=== PATIENT | female | born 1955 | race Caucasian/White ===

== ENCOUNTER 2020-02-02 09:00 | Outpatient (RCR) | payer OTHER, SELFPAY | END 2020-02-29 16:48 | disposition other institution (70) | LOC: HO.PT 09:00 | PROVIDERS: Visit Provider Nurse Practitioner Family | DX: M54.5 Low back pain (principal) | CPT/HCPCS: 97033; 97035; 97110; 97112; 97116; 97140; 97162 ==

== ENCOUNTER 2020-02-03 08:01 | Outpatient (REF) | payer OTHER, SELFPAY | END 2020-02-03 08:02 | disposition home or self-care (01) | LOC: HO.LAB 08:01 | PROVIDERS: Visit Provider Internal Medicine | DX: Z20.828 Contact with and (suspected) exposure to other viral communicable diseases (principal) | CPT/HCPCS: C9803; U0003 ==

== ENCOUNTER 2020-02-21 08:40 | Outpatient (REF) | payer OTHER, SELFPAY | END 2020-02-21 08:41 | disposition home or self-care (01) | LOC: HO.LAB 08:40 | PROVIDERS: Visit Provider Internal Medicine | DX: Z20.828 Contact with and (suspected) exposure to other viral communicable diseases (principal) | CPT/HCPCS: C9803; U0003 ==

== ENCOUNTER → 2020-03-21 13:15 | Outpatient (BNVA) | payer OTHER, SELFPAY | PROVIDERS: PCP Nurse Practitioner Family; Visit Provider Urology | DX: Z13.89 Encounter for screening for other disorder (principal) | CPT/HCPCS: Q3014 ==

== ENCOUNTER → 2020-04-03 11:06 | Outpatient (BNVA) | payer OTHER, SELFPAY | PROVIDERS: PCP Nurse Practitioner Family; Visit Provider Nurse Practitioner Family | DX: R07.9 Chest pain, unspecified (principal); I10 Essential (primary) hypertension; E78.5 Hyperlipidemia, unspecified; E11.8 Type 2 diabetes mellitus with unspecified complications; G89.29 Other chronic pain | CPT/HCPCS: 99212 ==

== ENCOUNTER 2020-04-10 11:08 | Outpatient (REF) | payer OTHER, SELFPAY ==
--- NOTE | 2020-04-10 | MM_ITS ---
EXAMINATION: MM SCREENING DIGITAL BREAST TOMOSYNTHESIS, BILATERAL CLINICAL INFORMATION: Screening. Asymptomatic. The lifetime risk of breast cancer based on the Tyrer-Cuzick Model is 4.1%. COMPARISON: Mammography: April 05, 2019 and studies dating back to January 20, 2014 TECHNIQUE: Digital breast tomosynthesis is performed in both the craniocaudal and mediolateral oblique views along with computer-aided detection (CAD). Synthesized 2D images are generated from the tomosynthesis. FINDINGS: The breasts are almost entirely fatty (ACR BI-RADS breast composition Category a). There are no significant masses, abnormal calcifications, or other abnormalities. MM/MM tomosynthesis screening BI IMPRESSION: There are no significant changes from prior study. ASSESSMENT: BI-RADS 1: Negative RECOMMENDATION: Routine annual mammography screening. This patient's information was entered into a reminder system with a target due date for their next mammogram.
== END 2020-04-10 11:09 | disposition home or self-care (01) ==
LOC: HO.MAMMO 11:08
PROVIDERS: Visit Provider Nurse Practitioner Family
DX: Z12.31 Encounter for screening mammogram for malignant neoplasm of breast (principal)
CPT/HCPCS: 77063; 77067

== ENCOUNTER 2020-05-28 08:27 | Outpatient (REF) | payer OTHER, SELFPAY | END 2020-05-28 08:28 | disposition home or self-care (01) | LOC: HO.LAB 08:27 | PROVIDERS: Visit Provider Internal Medicine | DX: Z20.822 Contact with and (suspected) exposure to COVID-19 (principal) | CPT/HCPCS: 36415; C9803; U0003; U0005 ==

== ENCOUNTER 2020-06-16 10:25 | Emergency (ER) | payer OTHER, SELFPAY ==
--- NOTE | ~2020-06-16 | US_ITS ---
EXAMINATION: US VENOUS ULTRASOUND WITH DOPPLER LOWER EXTREMITY, RIGHT CLINICAL INFORMATION: Pain. Recent flight from [place]. COMPARISON: None TECHNIQUE: Ultrasound of the deep veins is performed from the hip to the calf with compression sonography and color and pulse Doppler assessment. Spectral analysis with color-flow imaging is performed. FINDINGS: There is normal venous compression and respiratory variation and augmented flow. The visualized common femoral vein, superficial femoral vein, profunda femoral vein, popliteal vein, and the trifurcation region shows no evidence of deep venous thrombosis. There is no significant popliteal fossa cyst. If the patient's symptoms persist, followup ultrasound in 5 days 7 days might be of value to exclude proximal propagation from a non-visualized calf vein. US/US venous duplex LE RT IMPRESSION: No DVT demonstrated in the right lower extremity.
[2020-06-16 10:31] VITALS: BP 127/66; PULSE 84; RESP 18; TEMP 36.7; O2SAT 98; BMI 39.6
--- NOTE | 2020-06-16 10:44 | PC.NURSE ---
ambulatory with slight limping gait to emc, legs elevated
--- NOTE | 2020-06-16 11:32 | ED_ITS ---
HPI - Extremity Problem General Chief complaint: Extremity Problem Stated complaint: leg pain Time Seen by Provider: 06/16/20 11:32 Source: patient Mode of arrival: ambulatory History of Present Illness HPI Narrative: 64-year-old female with a past medical history of CKD, depression, HTN, JUSTIN, chronic pain, osteoarthritis, diabetes, vitamin-D deficiency, presenting to the ED complaining of acute on chronic right knee pain x1 week and right lower extremity swelling. Reports flew in from [place] yesterday, now with right calf pain. Also reports headache, requesting COVID-19 testing. Denies fever, chills, cough, chest pain, shortness of breath, numbness, tingling, weakness, history of blood clots. Denies taking any medication for headache or knee pain Related Data Home Medications Medication Instructions Recorded Confirmed albuterol sulfate 90 mcg/actuation 0 mcg INHALATION 03/21/20 03/21/20 aerosol inhaler atorvastatin 20 mg tablet 20 mg PO DAILY 03/21/20 03/21/20 clonazepam 0.5 mg tablet 0.5 mg PO DAILY PRN 03/21/20 03/21/20 darifenacin 15 mg tablet,extended 15 mg PO QAM 03/21/20 03/21/20 release 24 hr hydrocodone 5 mg-acetaminophen 325 1 tab PO Q8H PRN 03/21/20 03/21/20 mg tablet omeprazole 20 mg capsule,delayed 20 mg PO QAM 03/21/20 03/21/20 release tiotropium bromide 1.25 2 puff INHALATION DAILY 03/21/20 03/21/20 mcg/actuation mist for inhalation vitamin E (dl, acetate) 400 unit 400 unit PO QAM 03/21/20 03/21/20 capsule amlodipine 2.5 mg tablet 2.5 mg PO DAILY 04/03/20 04/03/20 fluticasone propionate 50 0 mcg INTRANASAL 04/03/20 04/03/20 mcg/actuation nasal spray,suspension lisinopril 10 1 tab PO DAILY 04/03/20 04/03/20 mg-hydrochlorothiazide 12.5 mg tablet metformin 500 mg tablet 500 mg PO ONCE tab 04/03/20 04/03/20 montelukast 10 mg tablet 10 mg PO DAILY 04/03/20 04/03/20 trazodone 150 mg tablet 150 mg PO BEDTIME tab 04/03/20 04/03/20 ursodiol 250 mg tablet 250 mg PO DAILY tab 04/03/20 04/03/20 Previous Rx's Medication Instructions Recorded calcium carbonate 600 mg (1,500 1 tab PO QAM #30 tab 06/12/20 mg)-vitamin D3 400 unit tablet acetaminophen [Tylenol Extra 500 mg PO Q6H PRN #20 tab 06/16/20 Strength] naproxen 500 mg PO BID PRN 10 Days #20 tab 06/16/20 Allergies Allergy/AdvReac Type Severity Reaction Status Date / Time No Known Allergies Allergy Verified 06/16/20 10:31 [No Known Allergies*] Review of Systems Review of Systems: Constitutional: No Fever, No Chills, No Fatigue, No Malaise ENT/Mouth: No Ear Pain, No Nasal Congestion, No visual changes Cardiovascular: No Chest Pain, No SOB, No Dyspnea on Exertion, No Edema Respiratory: No Cough, No Dyspnea Gastrointestinal: No Nausea, No Vomiting, No Abdominal pain Musculoskeletal: + joint pain, No Myalgias, + Joint Swelling Skin: No Skin Lesions, No rash Neuro: No Weakness, No Numbness, No Dizziness, +Headache PMFSH Past Medical History Attestation statement: The following information was validated with the patient. Medical History (Updated 06/16/20 @ 14:25 by PITO Krause) Bilateral primary osteoarthritis of knee Chest pain Chronic kidney disease Depression Essential hypertension History of renal calculi Lower urinary tract infection Lumbar facet arthropathy JUSTIN (obstructive sleep apnea) Other and unspecified hyperlipidemia Other chronic pain Other intervertebral disc displacement, lumbar region Primary osteoarthritis of left hand Primary osteoarthritis of left knee Primary osteoarthritis of right hand Primary osteoarthritis of right knee Renal stones Spondylosis of lumbar spine Type 2 diabetes mellitus with complication, without long-term current use of insulin Vitamin D deficiency Surgical History H/O abdominal hysterectomy H/O tubal ligation History of colonoscopy S/P repair of ventral hernia Family History Family History Father Diabetes mellitus HTN (hypertension) Mother No problems noted. Social History Social History Smoking Status: Never smoker Advance Directives: No Advance Directives Information Provided: No Physical Exam Vital Signs: Vital Signs: Last Vital Signs Temp 97.6 F 06/16/20 14:08 Pulse 66 06/16/20 14:08 Resp 15 06/16/20 14:08 BP 114/61 06/16/20 14:08 Pulse Ox 98 06/16/20 14:08 Body Mass Index 39.6 Const: General: cooperative, healthy appearing, comfortable and no acute distress Orientation/consciousness: patient oriented x3 Limitations: no limitations HENMT: Head: Yes normal to inspection Ears: hearing grossly normal bilaterally General nose exam: Normal external nose present Face and sinus: Yes normal facial exam Eyes: General: appearance normal, both eyes and all related structures EOM: EOMs intact bilaterally Neck: Neck: Yes normal visual inspection Resp: Effort & Inspection: normal respiratory effort Cardio: Rate: regular rate Skin: Rashes: no rashes Wounds: no wounds Neuro: General: patient oriented x3, tone normal and moves all extremities Motor exam (neuro): 5/5 motor strength present throughout Extrem: Other: Right knee with mild swelling, +ttp, no visible deformity/erythema, ROM intact + right calf tenderness to palpation. No appreciable right lower extremity swelling/edema Course Course Course Narrative: US venous duplex LE RT IMPRESSION: No DVT demonstrated in the right lower extremity --COVID-19 negative. Results discussed with patient with physician ophthalmologist including worrisome signs and symptoms and strict return precautions. Is follow-up with PCP/Orthopedics -patient requesting pain medication. Upon MAT review had 84 tablets of hydrocodone/Tylenol filled on 05/28, which she gets monthly MDM - Extremity (Nontraumatic) MDM Narrative Medical decision making narrative: 64-year-old female with a past medical history of CKD, depression, HTN, JUSTIN, chronic pain, osteoarthritis, diabetes, vitamin-D deficiency, presenting to the ED complaining of acute on chronic right knee pain x1 week and right lower extremity swelling. On exam VSS, NAD/well- appearing, physical exam as above. Concern for DVT vs acute on chronic right knee arthritic pain. Low concern for PE. Rule out COVID-19. Unlikely fracture/dislocation without known trauma/injury Plan: Venous duplex ultrasound, COVID-19 testing Lab Data Labs: Lab Results 06/16/20 Range/Units 13:34 COVID-19 ([facility]) Negative (Negative) COVID-19 Clin Com See Note Discharge Plan Discharge Clinical Impression: Chronic knee pain Qualifiers: Laterality: right Qualified Code(s): M25.561 - Pain in right knee Patient Disposition: Home, Self-Care Instructions: Arthralgia (ED) Additional Instructions: Your ultrasound was negative for any blood clots. You were negative for COVID- 19. Naproxen as an anti-inflammatory/pain medication, take with food, in addition take Tylenol. Follow-up with your primary care doctor as well as Orthopedics. If symptoms persist or worsen, become unbearable, or you fever return to the ED Arnold ecograf?a fue negativa para detectar co?gulos de antonio. Fuiste negativo para COVID-19. El naproxeno kisha medicamento antiinflamatorio / analg?sico, t?ocampo con alimentos, adem?s de Tylenol. Mike un seguimiento con arnold m?dico de atenci?n primaria y con ortopedia. Si los s?ntomas persisten o empeoran, se vuelven insoportables o si la fiebre regresa al servicio de urgencias Prescriptions: New naproxen 500 mg tablet 500 mg PO BID PRN (Reason: pain) 10 Days Qty: 20 RF: 0 acetaminophen [Tylenol Extra Strength] 500 mg tablet 500 mg PO Q6H PRN (Reason: pain or fever) Qty: 20 RF: 0 No Action calcium carbonate-vitamin D3 600 mg(1,500mg) -400 unit tablet 1 tab PO QAM Qty: 30 RF: 5 lisinopril-hydrochlorothiazide 10-12.5 mg tablet 1 tab PO DAILY RF: 0 amlodipine 2.5 mg tablet 2.5 mg PO DAILY RF: 0 metformin 500 mg tablet 500 mg PO ONCE RF: 0 fluticasone propionate 50 mcg/actuation spray,suspension 0 mcg intranasal RF: 0 montelukast 10 mg tablet 10 mg PO DAILY RF: 0 ursodiol 250 mg tablet 250 mg PO DAILY RF: 0 albuterol sulfate 90 mcg/actuation HFA aerosol inhaler 0 mcg inhalation RF: 0 clonazepam 0.5 mg tablet 0.5 mg PO DAILY PRNRF: 0 hydrocodone-acetaminophen 5-325 mg tablet 1 tab PO Q8H PRN (Reason: pain) RF: 0 vitamin E (dl, acetate) 400 unit capsule 400 unit PO QAM RF: 0 atorvastatin 20 mg tablet 20 mg PO DAILY RF: 0 Spiriva Respimat 1.25 mcg/actuation mist 2 puff inhalation DAILY RF: 0 darifenacin 15 mg tablet extended release 24 hr 15 mg PO QAM RF: 0 omeprazole 20 mg capsule,delayed release(DR/EC) 20 mg PO QAM RF: 0 trazodone 150 mg tablet 150 mg PO BEDTIME RF: 0 Referrals: [facility] [Primary Care Provider] - 2 days Laurie Heredia PA-C [Physician Innersole Fitter] - 1 week Print Language: Kazakh
[2020-06-16 13:57] LABS: COVID-19 Test Negative (Negative)
[2020-06-16 14:08] VITALS: BP 114/61; PULSE 66; RESP 15; TEMP 36.4; O2SAT 98
--- NOTE | 2020-06-16 14:24 | PC.NURSE ---
SANDWICH/DIET GINGERALE GIVEN
== END 2020-06-16 14:35 | disposition home or self-care (01) ==
PROVIDERS: Physician Assistant; Emergency Provider Emergency Medicine
DX: M79.604 Pain in right leg (principal); M25.561 Pain in right knee; R60.0 Localized edema; I10 Essential (primary) hypertension; Z79.899 Other long term (current) drug therapy; Z20.822 Contact with and (suspected) exposure to COVID-19
CPT/HCPCS: 36415; 87635; 93971; 99284

== ENCOUNTER 2020-07-09 07:13 | Outpatient (REF) | payer OTHER, SELFPAY ==
[2020-07-09 08:33] LABS: MANUAL DIFF FLAG NO
[2020-07-09 08:43] LABS: Basophils Percent Auto 0.5 % (0-2); Eosinophils Absolute Auto 0.4 X10*3/uL (0.0-0.4); Eosinophils Percent Auto 5.7 % (0-4); Hematocrit 37.1 % (37-47); Hemoglobin 12.6 g/dl (12.0-16.0); Imm Gran Abs Auto 0.01 X10*3/uL (0.00-0.03); Imm Gran Pct Auto 0.2 % (0.0-0.4); Lymphocytes Absolute Auto 2.1 X10*3/uL (1.2-4.9); Lymphocytes Percent Auto 34.7 % (20-40); Mean Corpuscular Hemoglobin 30.5 pg (27.0-33.0); Mean Corpuscular Volume 89.8 fL (80-98); Mean Platelet Volume 9.6 fL (9.4-12.3); Monocytes Absolute Auto 0.5 X10*3/uL (0.1-1.2); Monocytes Percent Auto 7.3 % (2-11); Neutrophils Absolute Auto 3.2 X10*3/uL (2.0-8.3); Neutrophils Percent Auto 51.6 % (45-73); Platelet Count 269 X10*3/uL (160-400); Red Blood Count 4.13 X10*6/uL (4.20-5.50); White Blood Count 6.2 X10*3/uL (4.8-10.8)
[2020-07-09 08:49] LABS: Prothrombin Time 12.2 SEC (10.8-13.0)
[2020-07-09 09:14] LABS: Alanine Aminotransferase 31 U/L (0-31); Albumin Level 3.9 g/dL (3.5-5.0); Alkaline Phosphatase 100 U/L (39-117); Aspartate Amino Transferase 20 U/L (5-31); Bilirubin Direct 0.2 mg/dL (0.0-0.5); Bilirubin Total 0.7 mg/dL (0.0-1.0); Total Protein 6.8 g/dL (6.5-8.0)
[2020-07-10 12:56] LABS: Alpha Fetoprotein 1.9 ng/mL
== END 2020-07-09 07:14 | disposition home or self-care (01) ==
LOC: HO.LAB 07:13
PROVIDERS: PCP Nurse Practitioner Family; Visit Provider Internal Medicine
DX: K74.69 Other cirrhosis of liver (principal); K76.0 Fatty (change of) liver, not elsewhere classified; Z86.19 Personal history of other infectious and parasitic diseases
CPT/HCPCS: 36415; 80076; 82105; 85025; 85610

== ENCOUNTER 2020-07-25 07:28 | Outpatient (REF) | payer OTHER, SELFPAY ==
--- NOTE | ~2020-07-25 | US_ITS ---
EXAMINATION: US ABDOMEN COMPLETE CLINICAL INFORMATION: Fatty liver. Cirrhosis of liver. COMPARISON: Ultrasound renals 07/26/2019 and ultrasound abdomen 02/24/2019. TECHNIQUE: Real-time imaging of the abdominal viscera. FINDINGS: PANCREAS: Not well visualized ABDOMINAL AORTA: The proximal, mid, and distal segments are normal in caliber. INFERIOR VENA CAVA: Visualized portions are normal. LIVER: Liver echotexture is increased.. No other focal liver lesion is seen. The liver is normal in size and contour. No evidence of cirrhosis is seen. There is no biliary duct dilatation. There is a small hypoechoic area adjacent to the gallbladder questionable for area of focal fatty sparing GALLBLADDER: Normal. The gallbladder is physiologically distended without evidence of stones, sludge, polyps, wall thickening or pericholecystic fluid. COMMON BILE DUCT: Limited visualization. The visualized common bile duct is normal in caliber measuring 0.5 cm in diameter. RIGHT KIDNEY: There is a small cyst in the lateral midpole measuring 5 mm. No hydronephrosis or renal calculi. The kidney measures 10.6 cm in maximum dimension. LEFT KIDNEY: Normal. No hydronephrosis. No renal calculi or focal parenchymal lesions. The kidney measures 9.9 cm in maximum dimension. SPLEEN: Normal. The spleen measures 8.1 cm in maximum dimension. FREE FLUID: None. US/US abdomen complete IMPRESSION: Echogenic liver probably representing fatty infiltration. No evidence of cirrhosis or focal liver lesion.Limited visualization of the pancreas and CBD.
== END 2020-07-25 07:29 | disposition home or self-care (01) ==
LOC: HO.US 07:28
PROVIDERS: PCP Nurse Practitioner Family; Visit Provider Internal Medicine
DX: K74.69 Other cirrhosis of liver (principal); K76.0 Fatty (change of) liver, not elsewhere classified
CPT/HCPCS: 76700

== ENCOUNTER 2020-08-21 07:34 | Outpatient (REF) | payer OTHER, SELFPAY ==
--- NOTE | ~2020-08-21 | XR_ITS ---
EXAMINATION: XR KNEE, LEFT XR KNEE STANDING, BILATERAL CLINICAL INFORMATION: Pain in left knee. COMPARISON: Left knee 01/12/2019 TECHNIQUE: AP bilateral knee standing 1 view. Left knee 2 views. FINDINGS: AP bilateral knee: There is loss of medial compartment joint space. The lateral compartment joint space is normal. No visible acute fracture, dislocation or subluxation seen. Left knee: There is loss of patellofemoral compartment joint space with anterior superior patellar enthesophyte. The soft tissues are normal. No visible fracture seen. The soft tissues are normal. XR/XR knee LT 2V IMPRESSION: Degenerative arthritic changes medial compartment both knees and left knee patellofemoral compartment . No left knee joint effusion or loose bodies. There is anterior superior left patellar enthesophyte.
--- NOTE | ~2020-08-21 | XR_ITS ---
EXAMINATION: XR KNEE, LEFT XR KNEE STANDING, BILATERAL CLINICAL INFORMATION: Pain in left knee. COMPARISON: Left knee 01/12/2019 TECHNIQUE: AP bilateral knee standing 1 view. Left knee 2 views. FINDINGS: AP bilateral knee: There is loss of medial compartment joint space. The lateral compartment joint space is normal. No visible acute fracture, dislocation or subluxation seen. Left knee: There is loss of patellofemoral compartment joint space with anterior superior patellar enthesophyte. The soft tissues are normal. No visible fracture seen. The soft tissues are normal. XR/XR knee standing BI IMPRESSION: Degenerative arthritic changes medial compartment both knees and left knee patellofemoral compartment . No left knee joint effusion or loose bodies. There is anterior superior left patellar enthesophyte.
== END 2020-08-21 07:35 | disposition home or self-care (01) ==
LOC: HO.HOSX 07:34
PROVIDERS: Visit Provider Orthopaedic Surgery
DX: M17.11 Unilateral primary osteoarthritis, right knee (principal); M25.562 Pain in left knee; Z79.899 Other long term (current) drug therapy
CPT/HCPCS: 20610; 73560; 73565; 99202; J1040

== ENCOUNTER → 2020-09-11 10:15 | Outpatient (BNVA) | payer OTHER, SELFPAY | PROVIDERS: PCP Internal Medicine; Visit Provider Orthopaedic Surgery | DX: M17.11 Unilateral primary osteoarthritis, right knee (principal) | CPT/HCPCS: 99212 ==

== ENCOUNTER 2020-09-19 12:21 | Outpatient (REF) | payer OTHER, SELFPAY ==
--- NOTE | ~2020-09-19 | US_ITS ---
EXAMINATION: US RETROPERITONEAL LIMITED (RENAL ONLY) CLINICAL INFORMATION: Personal history of urinary calculi. COMPARISON: Ultrasound abdomen complete 07/25/2020. Renal ultrasound 07/26/2019. CT abdomen and pelvis 08/16/2018. KUB 07/23/2016 and 03/27/2013. TECHNIQUE: Real-time imaging of the kidneys. FINDINGS: RIGHT KIDNEY: 10.1 x 5.1 x 5.0 cm (SAG x AP x TRV). The kidney is normal in size, contour, and echogenicity. Renal cortical thickness is normal. No calculi or focal parenchymal lesions. No hydronephrosis. 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 LEFT KIDNEY: 9.7 x 4.6 x 3.9 cm (SAG x AP x TRV). The kidney is normal in size, contour, and echogenicity. Renal cortical thickness is normal. No calculi or focal parenchymal lesions. No hydronephrosis. 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 If of continued clinical concern, this could be further evaluated with noncontrast CT. The examination is otherwise unremarkable..
== END 2020-09-19 12:22 | disposition home or self-care (01) ==
LOC: HO.US 12:21
PROVIDERS: Visit Provider Urology
DX: N20.0 Calculus of kidney (principal); Z87.442 Personal history of urinary calculi
CPT/HCPCS: 76775

== ENCOUNTER 2020-09-28 11:44 | Outpatient (REF) | payer OTHER, SELFPAY ==
[2020-09-28 13:06] LABS: Estimated Average Glucose 123 mg/dL; Hemoglobin A1c % 5.9 %
== END 2020-09-28 11:45 | disposition home or self-care (01) ==
LOC: HO.LAB 11:44
PROVIDERS: Visit Provider Orthopaedic Surgery
DX: Z01.812 Encounter for preprocedural laboratory examination (principal)
CPT/HCPCS: 36415; 83036

== ENCOUNTER → 2020-10-16 14:30 | Outpatient (BNVA) | payer OTHER, SELFPAY | PROVIDERS: PCP Internal Medicine; Referring Provider Internal Medicine; Visit Provider Nurse Practitioner Family | DX: Z01.810 Encounter for preprocedural cardiovascular examination (principal); R07.9 Chest pain, unspecified; I10 Essential (primary) hypertension; E78.5 Hyperlipidemia, unspecified; E11.8 Type 2 diabetes mellitus with unspecified complications | CPT/HCPCS: 93005; 99212 ==

== ENCOUNTER → 2020-10-18 10:59 | Outpatient (BNVA) | payer OTHER, SELFPAY | PROVIDERS: PCP Internal Medicine; Visit Provider Orthopaedic Surgery | DX: Z01.812 Encounter for preprocedural laboratory examination (principal) ==

== ENCOUNTER 2020-10-23 12:16 | Outpatient (REF) | payer OTHER, SELFPAY ==
--- NOTE | ~2020-10-23 | XR_ITS ---
EXAMINATION: XR KNEE, RIGHT CLINICAL INFORMATION: Right knee pain. Osteoarthritis. COMPARISON: None TECHNIQUE: Two views of the right knee. FINDINGS: There is mild loss of patellofemoral compartment joint space with anterior superior patellar enthesophyte. There is minimal suprapatellar joint effusion. No loose body seen. XR/XR knee RT 2V IMPRESSION: Mild degenerative changes patellofemoral compartment with anterior superior patellar enthesophyte. No visible acute fracture or dislocation.
== END 2020-10-23 12:17 | disposition home or self-care (01) ==
LOC: HO.HOSX 12:16
PROVIDERS: Visit Provider Orthopaedic Surgery
DX: M17.11 Unilateral primary osteoarthritis, right knee (principal)
CPT/HCPCS: 73560

== ENCOUNTER → 2020-11-14 11:05 | Outpatient (BNVA) | payer OTHER, SELFPAY | PROVIDERS: Visit Provider Physician Assistant | DX: M17.11 Unilateral primary osteoarthritis, right knee (principal) | CPT/HCPCS: 99212 ==

== ENCOUNTER → 2020-11-19 11:17 | Outpatient (BNVA) | payer OTHER, SELFPAY | PROVIDERS: Visit Provider Orthopaedic Surgery | DX: M17.11 Unilateral primary osteoarthritis, right knee (principal) | CPT/HCPCS: 99212 ==

== ENCOUNTER 2020-11-21 09:33 | Inpatient (IN) | payer OTHER, SELFPAY ==
[2020-10-18 13:25] LABS: MANUAL DIFF FLAG NO
[2020-10-18 13:31] LABS: Basophils Percent Auto 0.5 % (0-2); Eosinophils Absolute Auto 0.6 X10*3/uL (0.0-0.4); Eosinophils Percent Auto 8.3 % (0-4); Hematocrit 36.7 % (37-47); Hemoglobin 12.4 g/dl (12.0-16.0); Imm Gran Abs Auto 0.01 X10*3/uL (0.00-0.03); Imm Gran Pct Auto 0.2 % (0.0-0.4); Lymphocytes Absolute Auto 2.6 X10*3/uL (1.2-4.9); Lymphocytes Percent Auto 38.3 % (20-40); Mean Corpuscular HGB Conc 33.8 g/dl (31.0-35.0); Mean Corpuscular Volume 88.6 fL (80-98); Mean Platelet Volume 9.5 fL (9.4-12.3); Monocytes Absolute Auto 0.5 X10*3/uL (0.1-1.2); Monocytes Percent Auto 7.8 % (2-11); Neutrophils Percent Auto 44.9 % (45-73); Platelet Count 244 X10*3/uL (160-400); Red Blood Count 4.14 X10*6/uL (4.20-5.50); Red Cell Distribution Width 12.2 % (11.0-16.0); White Blood Count 6.7 X10*3/uL (4.8-10.8)
[2020-10-18 14:27] LABS: Anion Gap 11 (12-20); Blood Urea Nitrogen 16 mg/dL (9-16); Calcium 9.2 mg/dL (8.4-10.2); Carbon Dioxide 30 mmol/L (22-29); Chloride 102 mmol/L (96-108); Estimated Glomerular Filt Rate > 60; Glucose Random 91 mg/dL (60-115); Potassium 4.1 mmol/L (3.3-5.1); Sodium 139 mmol/L (135-145)
--- NOTE | 2020-11-05 | ECG_ITS ---
Test Reason : PREOP Blood Pressure : / mmHG Vent. Rate : 053 BPM Atrial Rate : 053 BPM P-R Int : 160 ms QRS Dur : 094 ms QT Int : 434 ms P-R-T Axes : 031 004 070 degrees QTc Int : 407 ms Sinus bradycardia Nonspecific T wave abnormality Abnormal ECG When compared with ECG of 20-OCT-2018 16:51, Heart rate has decreased Referred By: Glendy Osorio Electronically Signed By:CHELSI CORADO
--- NOTE | 2020-11-05 11:55 | HO.ANESPROP2 ---
Documented by User: Glendy Osorio NP 11/20/20 08:28 HPI - Anesthesia Eval Consult details Narrative: 65yo F for Right Knee Replacement Total PCP cleared Cardiac Cleared @ low risk PMFSH Active Problems Active Problems: All Active Problems (Updated 11/05/20 @ 11:45 by Dedra Head) History of renal calculi (Acute) Preop cardiovascular exam (Acute) Primary osteoarthritis of right knee (Acute) Type 2 diabetes mellitus with complication, without long-term current use of insulin (Acute) Other and unspecified hyperlipidemia (Acute) Essential hypertension (Acute) Chest pain (Acute) Past Medical History Medical History Bilateral primary osteoarthritis of knee Chest pain Chronic kidney disease COVID-19 vaccine series completed Depression Elevated cholesterol Essential hypertension History of renal calculi Lower urinary tract infection Lumbar facet arthropathy JUSTIN (obstructive sleep apnea) Other and unspecified hyperlipidemia Other chronic pain Other intervertebral disc displacement, lumbar region Primary osteoarthritis of left hand Primary osteoarthritis of left knee Primary osteoarthritis of right hand Primary osteoarthritis of right knee Renal stones Spondylosis of lumbar spine Type 2 diabetes mellitus with complication, without long-term current use of insulin Vitamin D deficiency Family History Family History Father Diabetes mellitus HTN (hypertension) Mother No problems noted. Family history of problems with anesthesia: No Surgical History Surgical History H/O abdominal hysterectomy H/O tubal ligation History of colonoscopy History of esophagogastroduodenoscopy (EGD) History of laryngoscopy Hx of arthroscopy of left knee Hx of dilation and curettage Hx of lithotripsy Hx of umbilical hernia repair S/P repair of ventral hernia History of Problems with Anesthesia: No Social History Social History Are you a primary healthcare facility administrator to a significant other at home: No Do you presently have visiting nurse or other home services: Yes ([employer]) Alcohol intake: former Year quit: 1995 Patient Tobacco Use Status: Former Tobacco user Quit Date: 2000 Tobacco use type: Cigarette Years Smoked: 5+ Use of substances other than those prescribed or required for medical reasons: No Have you been hit, kicked, punched, or otherwise hurt by someone within the past year? 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 Narrative Narrative: No recent illness No CP/SOB within limits of pain Meds Allergies Allergy/AdvReac Type Severity Reaction Status Date / Time No Known Allergies Allergy Verified 11/21/20 09:42 [No Known Allergies*] Home Medications Medication Instructions Recorded Confirmed Last Taken Type albuterol sulfate 90 mcg/actuation 90 mcg INHALATION Q4-6H PRN 03/21/20 11/05/20 Unknown History aerosol inhaler atorvastatin 20 mg tablet 20 mg PO DAILY 03/21/20 11/05/20 11/21/20 07:00 History clonazepam 0.5 mg tablet 0.5 mg PO DAILY PRN 03/21/20 11/05/20 Unknown History darifenacin 15 mg tablet,extended 15 mg PO QAM 03/21/20 11/05/20 Unknown History release 24 hr hydrocodone 5 mg-acetaminophen 325 1 tab PO Q8H PRN 03/21/20 11/05/20 Unknown History mg tablet omeprazole 20 mg capsule,delayed 20 mg PO QAM 03/21/20 11/05/20 11/21/20 07:00 History release tiotropium bromide 1.25 2 puff INHALATION DAILY 03/21/20 11/05/20 11/21/20 07:00 History mcg/actuation mist for inhalation vitamin E (dl, acetate) 180 mg 400 unit PO QAM 03/21/20 11/05/20 Unknown History (400 unit) capsule amlodipine 2.5 mg tablet 2.5 mg PO DAILY 04/03/20 11/05/20 11/21/20 07:00 History fluticasone propionate 50 50 mcg INTRANASAL BID 04/03/20 11/05/20 Unknown History mcg/actuation nasal spray,suspension lisinopril 10 1 tab PO DAILY 04/03/20 11/05/20 Unknown History mg-hydrochlorothiazide 12.5 mg tablet metformin 500 mg tablet 500 mg PO QAM tab 04/03/20 11/05/20 11/21/20 07:00 History montelukast 10 mg tablet 10 mg PO DAILY 04/03/20 11/05/20 Unknown History trazodone 150 mg tablet 150 mg PO BEDTIME tab 04/03/20 11/05/20 Unknown History ursodiol 250 mg tablet 750 mg PO DAILY tab 04/03/20 11/05/20 11/21/20 07:00 History fluticasone propionate 115 2 puff INHALATION BID 08/21/20 11/05/20 11/21/20 07:00 History mcg-salmeterol 21 mcg/actuation HFA inhaler trazodone 100 mg tablet 100 mg PO BEDTIME 08/21/20 11/05/20 Unknown History Exam Exam Date and Time: November 05, 2020 115 Pertinent Lab Results Pertinent Lab Results: A1C = 5.9% Lab Results 10/18/20 10/18/20 11/05/20 Range/Units 12:40 12:40 12:05 WBC 6.7 (4.8-10.8) X10*3/uL RBC 4.14 L (4.20-5.50) X10*6/uL Hgb 12.4 (12.0-16.0) g/dl Hct 36.7 L (37-47) % MCV 88.6 (80-98) fL MCH 30.0 (27.0-33.0) pg MCHC 33.8 (31.0-35.0) g/dl RDW 12.2 (11.0-16.0) % Plt Count 244 (160-400) X10*3/uL MPV 9.5 (9.4-12.3) fL Immature Gran % (Auto) 0.2 (0.0-0.4) % Neut % (Auto) 44.9 L (45-73) % Lymph % (Auto) 38.3 (20-40) % [place] % (Auto) 7.8 (2-11) % Eos % (Auto) 8.3 H (0-4) % Baso % (Auto) 0.5 (0-2) % Lymph # (Auto) 2.6 (1.2-4.9) X10*3/uL [place] # (Auto) 0.5 (0.1-1.2) X10*3/uL Eos # (Auto) 0.6 H (0.0-0.4) X10*3/uL Baso # (Auto) 0.0 (0.0-0.2) X10*3/uL Abs Immat Gran (auto) 0.01 (0.00-0.03) X10*3/uL Absolute Neuts (auto) 3.0 (2.0-8.3) X10*3/uL Absolute Nucleated RBC 0.000 (0.0-0.012) X10*3/uL Nucleated RBC % (auto) 0.0 (0.0-0.2) /100WBC Sodium 139 (135-145) mmol/L Potassium 4.1 (3.3-5.1) mmol/L Chloride 102 (96-108) mmol/L Carbon Dioxide 30 H (22-29) mmol/L Anion Gap 11 L (12-20) BUN 16 (9-16) mg/dL Creatinine 0.82 (0.5-1.4) mg/dL Estim Creat Clear Calc TNP Estimated GFR > 60 Random Glucose 91 (60-115) mg/dL Calcium 9.2 (8.4-10.2) mg/dL Nasal Screen MRSA (PCR) NEGATIVE (Negative) Nasal S. aureus Screen NEGATIVE (Negative) Nasal MRSA/S.aureus Interp SEE NOTE Blood Type Antibody Screen 11/05/20 Range/Units 13:06 WBC (4.8-10.8) X10*3/uL RBC (4.20-5.50) X10*6/uL Hgb (12.0-16.0) g/dl Hct (37-47) % MCV (80-98) fL MCH (27.0-33.0) pg MCHC (31.0-35.0) g/dl RDW (11.0-16.0) % Plt Count (160-400) X10*3/uL MPV (9.4-12.3) fL Immature Gran % (Auto) (0.0-0.4) % Neut % (Auto) (45-73) % Lymph % (Auto) (20-40) % [place] % (Auto) (2-11) % Eos % (Auto) (0-4) % Baso % (Auto) (0-2) % Lymph # (Auto) (1.2-4.9) X10*3/uL [place] # (Auto) (0.1-1.2) X10*3/uL Eos # (Auto) (0.0-0.4) X10*3/uL Baso # (Auto) (0.0-0.2) X10*3/uL Abs Immat Gran (auto) (0.00-0.03) X10*3/uL Absolute Neuts (auto) (2.0-8.3) X10*3/uL Absolute Nucleated RBC (0.0-0.012) X10*3/uL Nucleated RBC % (auto) (0.0-0.2) /100WBC Sodium (135-145) mmol/L Potassium (3.3-5.1) mmol/L Chloride (96-108) mmol/L Carbon Dioxide (22-29) mmol/L Anion Gap (12-20) BUN (9-16) mg/dL Creatinine (0.5-1.4) mg/dL Estim Creat Clear Calc Estimated GFR Random Glucose (60-115) mg/dL Calcium (8.4-10.2) mg/dL Nasal Screen MRSA (PCR) (Negative) Nasal S. aureus Screen (Negative) Nasal MRSA/S.aureus Interp Blood Type O Positive Antibody Screen NEGATIVE Narrative Narrative: EKG 10/16/20 normal sinus rhythm no acute ST or T-wave abnormalities, rate 74, QTC 450 millisecond Nuclear stress test done 07/19/2018 was likely normal.? Echocardiogram done 06/09/2018 shows EF 55-60%, grade 2 diastolic dysfunction, no valve abnormalities and no regional wall motion abnormalities.? CTA of the coronary arteries was done 06/07/2019 showing minimal coronary artery calcification, no significant CAD Airway Mallampati Class: II TM Dist: >3cm Neck ROM: Full Denture: Upper and Lower Heart: pinky, RR Lungs: CTA Assessment and Plan Assessment Anesthesia Assessment: Anesthesia Plan Discussed and PAT Visit Final Anesthetic Review Family History of Problems with Anesthesia: No History of Problems with Anesthesia: No Documented by User: Genesis Jacobs MD 11/21/20 11:14 [facility] Past Medical History Medical History Bilateral primary osteoarthritis of knee Chest pain Chronic kidney disease COVID-19 vaccine series completed Depression Elevated cholesterol Essential hypertension History of renal calculi Lower urinary tract infection Lumbar facet arthropathy JUSTIN (obstructive sleep apnea) Other and unspecified hyperlipidemia Other chronic pain Other intervertebral disc displacement, lumbar region Primary osteoarthritis of left hand Primary osteoarthritis of left knee Primary osteoarthritis of right hand Primary osteoarthritis of right knee Renal stones Spondylosis of lumbar spine Type 2 diabetes mellitus with complication, without long-term current use of insulin Vitamin D deficiency Family History Family History Father Diabetes mellitus HTN (hypertension) Mother No problems noted. Surgical History Surgical History H/O abdominal hysterectomy H/O tubal ligation History of colonoscopy History of esophagogastroduodenoscopy (EGD) History of laryngoscopy Hx of arthroscopy of left knee Hx of dilation and curettage Hx of lithotripsy Hx of umbilical hernia repair S/P repair of ventral hernia Social History Social History Are you a primary healthcare facility administrator to a significant other at home: No Do you presently have visiting nurse or other home services: Yes ([employer]) Alcohol intake: former Year quit: 1995 Patient Tobacco Use Status: Former Tobacco user Quit Date: 2000 Tobacco use type: Cigarette Years Smoked: 5+ Use of substances other than those prescribed or required for medical reasons: No Have you been hit, kicked, punched, or otherwise hurt by someone within the past year? 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 Meds Allergies Allergy/AdvReac Type Severity Reaction Status Date / Time No Known Allergies Allergy Verified 11/21/20 09:42 [No Known Allergies*] Home Medications Medication Instructions Recorded Confirmed Last Taken Type albuterol sulfate 90 mcg/actuation 90 mcg INHALATION Q4-6H PRN 03/21/20 11/05/20 Unknown History aerosol inhaler atorvastatin 20 mg tablet 20 mg PO DAILY 03/21/20 11/05/20 11/21/20 07:00 History clonazepam 0.5 mg tablet 0.5 mg PO DAILY PRN 03/21/20 11/05/20 Unknown History darifenacin 15 mg tablet,extended 15 mg PO QAM 03/21/20 11/05/20 Unknown History release 24 hr hydrocodone 5 mg-acetaminophen 325 1 tab PO Q8H PRN 03/21/20 11/05/20 Unknown History mg tablet omeprazole 20 mg capsule,delayed 20 mg PO QAM 03/21/20 11/05/20 11/21/20 07:00 History release tiotropium bromide 1.25 2 puff INHALATION DAILY 03/21/20 11/05/20 11/21/20 07:00 History mcg/actuation mist for inhalation vitamin E (dl, acetate) 180 mg 400 unit PO QAM 03/21/20 11/05/20 Unknown History (400 unit) capsule amlodipine 2.5 mg tablet 2.5 mg PO DAILY 04/03/20 11/05/20 11/21/20 07:00 History fluticasone propionate 50 50 mcg INTRANASAL BID 04/03/20 11/05/20 Unknown History mcg/actuation nasal spray,suspension lisinopril 10 1 tab PO DAILY 04/03/20 11/05/20 Unknown History mg-hydrochlorothiazide 12.5 mg tablet metformin 500 mg tablet 500 mg PO QAM tab 04/03/20 11/05/20 11/21/20 07:00 History montelukast 10 mg tablet 10 mg PO DAILY 04/03/20 11/05/20 Unknown History trazodone 150 mg tablet 150 mg PO BEDTIME tab 04/03/20 11/05/20 Unknown History ursodiol 250 mg tablet 750 mg PO DAILY tab 04/03/20 11/05/20 11/21/20 07:00 History fluticasone propionate 115 2 puff INHALATION BID 08/21/20 11/05/20 11/21/20 07:00 History mcg-salmeterol 21 mcg/actuation HFA inhaler trazodone 100 mg tablet 100 mg PO BEDTIME 08/21/20 11/05/20 Unknown History Assessment and Plan Assessment Anesthesia Assessment: Chart Reviewed Final Anesthetic Review NPO: Yes ASA Class: III Final Preanesthetic Review: No Changes in Pt Med Stat, Meds/Allgs Chart Reviewed, Consent Obtained/Reviewed and Anes Risks/Benef Reviewed Patient Risk: Intermediate Procedure Risk: Intermediate Assessment/Block/Sedation in SS: Assess/Block/Sedation-SS Anesthetic Plan Anesthetic Plan: GA and Regional Block
[2020-11-05 12:01] VITALS: BP 110/62; PULSE 60; RESP 20; O2SAT 97
[2020-11-05 12:22] VITALS: BMI 39.6
[2020-11-05 14:10] LABS: MRSA Nasal PCR NEGATIVE (Negative); SA Nasal PCR NEGATIVE (Negative)
[2020-11-21] VITALS (15 sets, daily range): BP systolic 123–163; BP diastolic 54–73; PULSE 58–80; RESP 12–19; TEMP 36.1–36.7; O2SAT 93–100
--- NOTE | ~2020-11-21 | XR_ITS ---
EXAMINATION: XR KNEE, RIGHT CLINICAL INFORMATION: Status post right total knee arthroplasty COMPARISON: October 23, 2020 and August 21, 2020 TECHNIQUE: AP and lateral views of the right knee. FINDINGS: Patient is status post right total knee arthroplasty. Prosthetic components appear in good position without evidence of fracture or dislocation. There is small amount of air and fluid seen within the suprapatella bursa. Stable line overlies the anterior knee joint. Small amount of subcutaneous gas is present from the surgery. XR/XR knee RT 2V IMPRESSION: Satisfactory appearance status post right knee total arthroplasty.
[2020-11-21 10:23] LABS: COVID-19 Test Negative (Negative); IDNOW Serial# 08D9AD1C
[2020-11-21 10:29] LABS: Glucose, Whole Blood 112 mg/dL (60-115)
[2020-11-21] MEDS: Lactated Ringers 1,000 ML 80 ML IVCONT (10:39)
--- NOTE | 2020-11-21 10:57 | MHC.SHP ---
Pre-Procedural Eval Section A Date of Service: 11/21/20 The patient is an INPATIENT: No Changes since office visit: Yes Patient answered all questions; No Cold of Flu in the past 2 weeks, No New Medical Problems and No Changes in Medication The History & Physical has been completed within 30 days and I have reviewed it.: Yes Section B Chief Complaint: Right total knee arthroplasty Allergies: Allergies Allergy/AdvReac Type Severity Reaction Status Date / Time No Known Allergies Allergy Verified 11/21/20 09:42 [No Known Allergies*] Plan I have reviewed the history and physical and performed a pertinent physical examination on my patient. No changes have occurred unless specified.
--- NOTE | 2020-11-21 13:54 | P.BOP_ITS ---
Brief Operative Note Date of Service: 11/21/20 Pre-op diagnosis: right knee OA Post-op diagnosis: same Procedure: Right TKA Implants: [employer] CR 04/25//32a Surgeon: Ulises Solorzano MD Anesthesia: GETA and regional Was an Sharepoint Solutions Architect used for this Procedure?: Yes Sharepoint Solutions Architect: Laurie Heredia Estimated blood loss (mL): 100 IV fluids (mL): 700 Pathology: other Condition: stable Disposition: PACU
[2020-11-21] MEDS: oxyCODONE HCl Immed Release 5 MG TABLET PO ×2 (14:44→22:04)
[2020-11-21] MEDS: fentaNYL citrate/PF 100 MCG/2 ML VIAL 50 MCG IVPUSH (15:10)
--- NOTE | 2020-11-21 17:25 | PM.IMCN ---
History of Present Illness Data of Consult Service Date: 11/21/20 Requesting physician: Ulises Solorzano Primary Care Provider: Darcy Temple MD [facility] Reason for consult: Medical management 65-year-old belarusian speaking woman with hx of diabetes, hypertension and asthma admitted by Orthopedic surgery and is status post right knee arthroplasty. Vital signs are stable. She denies any acute medical complaints. She does have a moderate amount of pain and was medicated prior to leaving pacu. Review of Systems Review of Systems: Denies any recent fever chills or decrease in appetite, grimacing in pain respiratory denies any shortness of breath coverage production cardiovascular is adjustment of any PND or edema gastrointestinal denies any dysphagia abdominal pain nausea vomiting or diarrhea genitourinary denies any dysuria frequency or hematuria musculoskeletal Joint pain neuropsych denies any weakness or seizures all other systems reviewed are negative [facility] Medical History (Updated 11/21/20 @ 17:27 by Valarie Rolon NP) Bilateral primary osteoarthritis of knee Chronic kidney disease COVID-19 vaccine series completed Depression Elevated cholesterol Essential hypertension History of renal calculi Lumbar facet arthropathy JUSTIN (obstructive sleep apnea) Other chronic pain Other intervertebral disc displacement, lumbar region Renal stones Spondylosis of lumbar spine Type 2 diabetes mellitus with complication, without long-term current use of insulin Vitamin D deficiency Family History Father Diabetes mellitus HTN (hypertension) Mother No problems noted. 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 If so, by whom?: No Do you feel safe in your current relationship?: No Current Relationship Is there a partner from a previous relationship who is making you feel unsafe now?: No Are you made to feel afraid or neglected: No Are you DNR?: No Advance Directives Information Provided: No Advance Directives on File: No Do you have thoughts of harming others: None Do you have a plan to hurt others: No Plan Recently lost weight without trying: No Eating poorly because of decreased appetite: No Nutrition Risks: No Nutritional Risk Patient : No : No Poor oral hygiene: No Current occupational status: retired 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 Meds Allergies Allergy/AdvReac Type Severity Reaction Status Date / Time No Known Allergies Allergy Verified 11/21/20 09:42 [No Known Allergies*] Active Medications: Current Medications Generic Name Dose Route Start Last Admin Trade Name Freq PRN Reason Stop Dose Admin Acetaminophen 650 mg 11/21/20 16:40 Acetaminophen 325 Mg Tablet PO Q6H PRN Pain, Mild (Pain Scale 1-3) Albuterol Sulfate puff 11/21/20 17:23 Albuterol Sulfate 90 Mcg 8 Gm Inhaler INHALE Q4-6H PRN Wheezing Amlodipine Besylate 2.5 mg 11/22/20 09:00 Amlodipine Besylate 2.5 Mg Tablet PO DAILY [facility] Protocol Celecoxib 200 mg 11/21/20 21:00 Celecoxib 200 Mg Capsule PO BID [facility] Clonazepam 0.5 mg 11/21/20 17:23 Clonazepam 0.5 Mg Tablet PO DAILY PRN Anxiety Dextrose 25 gm 11/21/20 17:24 Dextrose 50 % 25 Gm/50 Ml Vial IVPUSH Q15M PRN per Hypoglycemia Standing Ord. Protocol Docusate Sodium 100 mg 11/21/20 21:00 Docusate Sodium 100 Mg Capsule PO BID [facility] Fluticasone Propionate spray 11/21/20 21:00 Fluticasone Propionate Nasal 16 Gm Leslie NOSTRIL-B BID [facility] Glucose 15 gm 11/21/20 17:24 Glucose Gel 15 Gm Gel..Gram. PO Q15M PRN per Hypoglycemia Standing Ord. Protocol Hydromorphone HCl 0.25 mg 11/21/20 16:40 Hydromorphone Hcl 0.5 Mg/0.5 Ml Syringe IVPUSH Q4H PRN Pain, Severe (Pain Scale 7-10) Protocol Dextrose/Sodium Chloride 1,000 mls @ 80 mls/hr 11/21/20 16:40 D51/2ns IVCONT .[id number] [facility] Cefazolin Sodium/Dextrose 2 gm in 50 mls @ 100 mls/hr 11/21/20 17:15 Ancef IV POSTOP [facility] Insulin Human Lispro 0 unit 11/21/20 21:00 Insulin Lispro 100 Unit/Ml 3 Ml Vial SUBCUT QIDACHS [facility] Protocol Montelukast Sodium 10 mg 11/22/20 09:00 Montelukast Sodium 10 Mg Tablet PO DAILY [facility] Non-Formulary Medication 1 tab 11/21/20 17:30 Calcium Carbonate-Vitamin D3 PO QAM [facility] Non-Formulary Medication 2 puff 11/21/20 21:00 Fluticasone Propion-Salmeterol INHALE BID [facility] Non-Formulary Medication 1 tab 11/22/20 09:00 Lisinopril-Hydrochlorothiazide PO DAILY [facility] Non-Formulary Medication 750 mg 11/22/20 09:00 Ursodiol PO DAILY [facility] Omeprazole 20 mg 11/21/20 17:30 Omeprazole 20 Mg Capsule. PO QAM [facility] Ondansetron HCl 4 mg 11/21/20 16:40 Ondansetron Hcl 4 Mg/2 Ml Vial IVPUSH Q8H PRN Nausea and Vomiting Oxycodone HCl 5 mg 11/21/20 16:40 Oxycodone Hcl Immed Release 5 Mg Tablet PO Q4H PRN Pain, Moderate (Pain Scale 4-6 Oxycodone HCl 10 mg 11/21/20 21:00 Oxycodone Hcl Er 10 Mg Tab.Er.12h PO BID [facility] Sodium Chloride 3 ml 11/21/20 16:40 0.9 % Sodium Chloride Flush 3 Ml Syringe IVFLUSH QSHIFT [facility] Trazodone HCl 100 mg 11/21/20 21:00 Trazodone Hcl 100 Mg Tablet PO BEDTIME [facility] Trazodone HCl 150 mg 11/21/20 21:00 Trazodone Hcl 50 Mg Tablet PO BEDTIME [facility] Vitamin E mg 11/21/20 17:30 Vitamin E (Dl,Tocopheryl Acet) 180 Mg (400 Unit) Capsule PO QAM [facility] Home Medications Medication Instructions Recorded Confirmed Last Taken Type albuterol sulfate 90 mcg/actuation 90 mcg INHALATION Q4-6H PRN 03/21/20 11/05/20 Unknown History aerosol inhaler atorvastatin 20 mg tablet 20 mg PO DAILY 03/21/20 11/05/20 11/21/20 07:00 History clonazepam 0.5 mg tablet 0.5 mg PO DAILY PRN 03/21/20 11/05/20 Unknown History darifenacin 15 mg tablet,extended 15 mg PO QAM 03/21/20 11/05/20 Unknown History release 24 hr hydrocodone 5 mg-acetaminophen 325 1 tab PO Q8H PRN 03/21/20 11/05/20 Unknown History mg tablet omeprazole 20 mg capsule,delayed 20 mg PO QAM 03/21/20 11/05/20 11/21/20 07:00 History release tiotropium bromide 1.25 2 puff INHALATION DAILY 03/21/20 11/05/20 11/21/20 07:00 History mcg/actuation mist for inhalation vitamin E (dl, acetate) 180 mg 400 unit PO QAM 03/21/20 11/05/20 Unknown History (400 unit) capsule amlodipine 2.5 mg tablet 2.5 mg PO DAILY 04/03/20 11/05/20 11/21/20 07:00 History fluticasone propionate 50 50 mcg INTRANASAL BID 04/03/20 11/05/20 Unknown History mcg/actuation nasal spray,suspension lisinopril 10 1 tab PO DAILY 04/03/20 11/05/20 Unknown History mg-hydrochlorothiazide 12.5 mg tablet metformin 500 mg tablet 500 mg PO QAM tab 04/03/20 11/05/20 11/21/20 07:00 History montelukast 10 mg tablet 10 mg PO DAILY 04/03/20 11/05/20 Unknown History trazodone 150 mg tablet 150 mg PO BEDTIME tab 04/03/20 11/05/20 Unknown History ursodiol 250 mg tablet 750 mg PO DAILY tab 04/03/20 11/05/20 11/21/20 07:00 History fluticasone propionate 115 2 puff INHALATION BID 08/21/20 11/05/20 11/21/20 07:00 History mcg-salmeterol 21 mcg/actuation HFA inhaler trazodone 100 mg tablet 100 mg PO BEDTIME 08/21/20 11/05/20 Unknown History Physical Exam Vital Signs and Narrative: Vital Signs: Last Vital Signs Temp 97.3 F 11/21/20 17:12 Pulse 70 11/21/20 17:12 Resp 19 11/21/20 17:12 BP 147/73 H 11/21/20 17:12 Pulse Ox 95 11/21/20 17:12 Body Mass Index 39.6 Appearing in no acute distress head is normocephalic atraumatic eyes pupils are PERRLA sclera is anicteric mouth throat mucous membranes are intact and moist neck is supple no lymphadenopathy, no JVD noted lung sounds are clear to auscultation heart regular rate rhythm, clear S1, S2 positive bowel sounds, abdomen is soft, nontender neuro patient is alert x3, no focal deficits surgical dressing intact, unable to visualize surgical incision Results Labs CBC and Chem 7: 10/18/20 12:40 10/18/20 12:40 Labs: Laboratory Results - last 24 hr 11/21/20 11/21/20 09:45 10:26 POC Glucose 112 COVID-19 ([facility]) Negative COVID-19 Clin Com See Note Imaging Radiologist's Impressions: Impressions Knee X-Ray 11/21/20 15:01 IMPRESSION: Satisfactory appearance status post right knee total arthroplasty. Assessment and Plan (1) Type 2 diabetes mellitus with complication, without long-term current use of insulin: Status: Acute (2) Essential hypertension: Status: Acute 65-year-old woman admitted by Orthopedic surgery and is status post right total knee arthroplasty Right total knee arthroplasty. Management as per surgical team Pain management Diabetes mellitus Sliding scale, ADA diet Hypertension. Stable blood pressure. Continue home medications, avoid postoperative hypotension DVT prophylaxis with mechanical compression boots Attending
--- NOTE | 2020-11-21 17:39 | PM.EVENT ---
Event Note Date of Service: 11/21/20 Event Note: Addendum to history and physical by mid-level provider _ I interviewed and examined the patient. I discussed their presentation and management with the mid-level provider. I reviewed the history and physical and agree with the documentation, with the following additions and corrections:
[2020-11-21] MEDS: HYDROmorphone HCl 0.5 MG/0.5 ML SYRINGE 0.25 MG IVPUSH ×2 (17:43→23:52)
[2020-11-21] MEDS: 0.9 % Sodium Chloride Flush 3 ML SYRINGE IVFLUSH (17:46)
[2020-11-21] MEDS: Dextrose 5 % and 0.45 % NaCl 1,000 ML 80 ML IVCONT (18:04)
[2020-11-21 20:13] LABS: Glucose, Whole Blood 186 mg/dL (60-115)
[2020-11-21] MEDS: oxyCODONE HCl ER 10 MG TAB.ER.12H PO (20:21)
[2020-11-21] MEDS: ondansetron HCL 4 MG/2 ML VIAL IVPUSH (20:21)
[2020-11-21] MEDS: Celecoxib 200 MG CAPSULE PO (20:21)
[2020-11-21] MEDS: Docusate Sodium 100 MG CAPSULE PO (20:22)
[2020-11-21] MEDS: Insulin Lispro 100 UNIT/ML 3 ML VIAL SUBCUT (20:22)
[2020-11-21] MEDS: traZODone HCL 100 MG TABLET PO (20:22)
[2020-11-21] MEDS: Fluticasone Propionate Nasal 16 GM SPRAY 1 SPRAY NOSTRIL-B (21:24)
[2020-11-21] MEDS: Acetaminophen 325 MG TABLET 650 MG PO (23:52)
[2020-11-22] VITALS (12 sets, daily range): BP systolic 115–162; BP diastolic 55–76; PULSE 70–80; RESP 16–20; TEMP 36–36.8; O2SAT 95–99
[2020-11-22] MEDS: oxyCODONE HCl Immed Release 5 MG TABLET PO ×3 (03:09→22:03)
[2020-11-22] MEDS: HYDROmorphone HCl 0.5 MG/0.5 ML SYRINGE 0.25 MG IVPUSH ×3 (03:53→14:10)
--- NOTE | 2020-11-22 04:39 | PC.NURSE ---
Pt was unable to complete due to void post R knee replacement. retained 611ml of urine within bladder. Obtained order for Zeng Catheter from Dr. Johnston. Zeng Catheter inserted 1st attempt, maintaining sterile procedure
[2020-11-22] MEDS: Dextrose 5 % and 0.45 % NaCl 1,000 ML 80 ML IVCONT ×2 (06:02→17:32)
[2020-11-22] MEDS: Omeprazole 20 MG CAPSULE.DR PO (06:02)
[2020-11-22 06:18] LABS: MANUAL DIFF FLAG NO
[2020-11-22 06:21] LABS: Basophils Percent Auto 0.1 % (0-2); Hemoglobin 11.4 g/dl (12.0-16.0); Imm Gran Abs Auto 0.05 X10*3/uL (0.00-0.03); Imm Gran Pct Auto 0.4 % (0.0-0.4); Lymphocytes Absolute Auto 1.2 X10*3/uL (1.2-4.9); Lymphocytes Percent Auto 10.9 % (20-40); Mean Corpuscular HGB Conc 34.5 g/dl (31.0-35.0); Mean Corpuscular Hemoglobin 30.2 pg (27.0-33.0); Mean Corpuscular Volume 87.3 fL (80-98); Mean Platelet Volume 9.3 fL (9.4-12.3); Monocytes Absolute Auto 0.7 X10*3/uL (0.1-1.2); Monocytes Percent Auto 6.5 % (2-11); Neutrophils Absolute Auto 9.4 X10*3/uL (2.0-8.3); Neutrophils Percent Auto 82.1 % (45-73); Platelet Count 232 X10*3/uL (160-400); Red Blood Count 3.78 X10*6/uL (4.20-5.50); White Blood Count 11.4 X10*3/uL (4.8-10.8)
[2020-11-22 06:48] LABS: Anion Gap 11 (12-20); Blood Urea Nitrogen 12 mg/dL (9-16); Calcium 8.7 mg/dL (8.4-10.2); Carbon Dioxide 28 mmol/L (22-29); Chloride 102 mmol/L (96-108); Creatinine Clr Calc Pharmacy 83.8; Estimated Glomerular Filt Rate > 60; Glucose Fasting 120 mg/dL (60-99); Potassium 3.9 mmol/L (3.3-5.1); Sodium 137 mmol/L (135-145)
[2020-11-22 07:18] LABS: Glucose, Whole Blood 144 mg/dL (60-115)
[2020-11-22] MEDS: Fluticasone/Vilanterol 100/25 BLST.W.DEV 1 PUFF INHALE (07:51)
--- NOTE | 2020-11-22 08:05 | P.PNOP_ITS ---
Subjective Subjective Date of Service: 11/22/20 Interval history: POD1 s/p RTKA with Dr. Solorzano. Patient is resting comfortably in bed. No overnight events. Pain is well managed. No additional complaints. Physical Exam Vital Signs: Vital Signs: Last Vital Signs Temp 97 F 11/22/20 06:57 Pulse 73 11/22/20 06:57 Resp 18 11/22/20 06:57 BP 137/65 11/22/20 06:57 Pulse Ox 97 11/22/20 06:57 Body Mass Index 39.6 Const: General: cooperative, healthy appearing and no acute distress Resp: Effort & Inspection: normal respiratory effort and able to speak in complete sentences Cardio: Rate: regular rate Peripheral pulses: Peripheral pulses 2+ throughout GI: Palpation (GI): Soft to palpation Skin: Lesions: no lesions Rashes: no rashes Extrem: Other: Right knee Aquacel dressing is clean, dry, and intact. Patient is able to dorsiflex and plantarflex. Sensation intact. Pedal pulse intact. Procedures Date of Service Date of Service: 11/22/20 Progress Note: A&P Assessment and plan (1) Status post total right knee replacement: Status: Acute Assessment and Plan: Continue pain mgmnt Begin ASA for dvt ppx begin PT for RTKA Dispo planning-Pending PT eval, pain mgmnt Fall Risk Details Current Medications: Current Medications Generic Name Dose Route Start Last Admin Trade Name Freq PRN Reason Stop Dose Admin Acetaminophen 650 mg 11/21/20 16:40 11/21/20 23:52 Acetaminophen 325 Mg Tablet PO 650 mg Q6H PRN Administration Pain, Mild (Pain Scale 1-3) Albuterol Sulfate 1 puff 11/21/20 17:23 Albuterol Sulfate 90 Mcg 8 Gm Inhaler INHALE Q4H PRN Wheezing Amlodipine Besylate 2.5 mg 11/22/20 09:00 Amlodipine Besylate 2.5 Mg Tablet PO DAILY [facility] Protocol Calcium Carbonate/Cholecalciferol 500 mg 11/22/20 09:00 Calcium + Vitamin D 250 Mg Tablet PO DAILY MIRELLA Celecoxib 200 mg 11/21/20 21:00 11/21/20 20:21 Celecoxib 200 Mg Capsule PO 200 mg BID MIRELLA Administration Clonazepam 0.5 mg 11/21/20 17:23 Clonazepam 0.5 Mg Tablet PO DAILY PRN Anxiety Dextrose 25 gm 11/21/20 17:24 Dextrose 50 % 25 Gm/50 Ml Vial IVPUSH Q15M PRN per Hypoglycemia Standing Ord. Protocol Docusate Sodium 100 mg 11/21/20 21:00 11/21/20 20:22 Docusate Sodium 100 Mg Capsule PO 100 mg BID MIRELLA Administration Fluticasone Propionate 1 spray 11/21/20 21:00 11/21/20 21:24 Fluticasone Propionate Nasal 16 Gm [place] NOSTRIL-B 1 spray BID MIRELLA Administration Fluticasone/Vilanterol 1 puff 11/22/20 08:00 11/22/20 07:51 Fluticasone/Vilanterol 100/25 Blst.W.Dev INHALE 1 puff RDAILY MIRELLA Administration Glucose 15 gm 11/21/20 17:24 Glucose Gel 15 Gm Gel..Gram. PO Q15M PRN per Hypoglycemia Standing Ord. Protocol Hydrochlorothiazide 12.5 mg 11/22/20 09:00 Hydrochlorothiazide 12.5 Mg Tablet PO DAILY [facility] Hydromorphone HCl 0.25 mg 11/21/20 16:40 11/22/20 03:53 Hydromorphone Hcl 0.5 Mg/0.5 Ml Syringe IVPUSH 0.25 mg Q4H PRN Administration Pain, Severe (Pain Scale 7-10) Protocol Dextrose/Sodium Chloride 1,000 mls @ 80 mls/hr 11/21/20 16:40 11/22/20 06:02 D51/2ns IVCONT 80 mls/hr .[id number] MIRELLA Administration Cefazolin Sodium/Dextrose 2 gm in 50 mls @ 100 mls/hr 11/21/20 17:15 Ancef IV POSTOP [facility] Insulin Human Lispro 0 unit 11/21/20 21:00 11/22/20 07:25 Insulin Lispro 100 Unit/Ml 3 Ml Vial SUBCUT Not Given QIDACHS [facility] Protocol Lisinopril 10 mg 11/22/20 09:00 Lisinopril 10 Mg Tablet PO DAILY [facility] Montelukast Sodium 10 mg 11/22/20 09:00 Montelukast Sodium 10 Mg Tablet PO DAILY [facility] Non-Formulary Medication 750 mg 11/22/20 09:00 Ursodiol PO DAILY [facility] Omeprazole 20 mg 11/22/20 06:30 09/02/21 06:02 Omeprazole 20 Mg Capsule. PO 20 mg DAILY@0630 MIRELLA Administration Ondansetron HCl 4 mg 11/21/20 16:40 11/21/20 20:21 Ondansetron Hcl 4 Mg/2 Ml Vial IVPUSH 4 mg Q8H PRN Administration Nausea and Vomiting Oxycodone HCl 5 mg 11/21/20 16:40 11/22/20 03:09 Oxycodone Hcl Immed Release 5 Mg Tablet PO 5 mg Q4H PRN Administration Pain, Moderate (Pain Scale 4-6 Oxycodone HCl 10 mg 11/21/20 21:00 11/21/20 20:21 Oxycodone Hcl Er 10 Mg Tab.Er.12h PO 10 mg BID MIRELLA Administration Sodium Chloride 3 ml 11/21/20 16:40 11/22/20 01:39 0.9 % Sodium Chloride Flush 3 Ml Syringe IVFLUSH Not Given QSHIFT MIRELLA Trazodone HCl 100 mg 11/21/20 21:00 11/21/20 20:22 Trazodone Hcl 100 Mg Tablet PO 100 mg BEDTIME MIRELLA Administration Vitamin E 180 mg 11/22/20 09:00 Vitamin E (Dl,Tocopheryl Acet) 180 Mg (400 Unit) Capsule PO DAILY [facility] Time Spent With Patient Time: Total time spent is greater than 50% in coordination of care (as documented) at patient's floor/unit and/or counseling patient: Time with patient: less than 15 minutes Quality Stroke Does the patient have a stroke diagnosis?: No VTE Prior VTE?: No VTE Risk Level:: Surgical - high VTE Device Contraindication: N/A - Device Ordered VTE Drug Contraindication: N/A - Med Ordered
[2020-11-22] MEDS: 0.9 % Sodium Chloride Flush 3 ML SYRINGE IVFLUSH ×2 (08:43→20:26)
[2020-11-22] MEDS: oxyCODONE HCl ER 10 MG TAB.ER.12H PO ×2 (08:45→20:26)
[2020-11-22] MEDS: Montelukast Sodium 10 MG TABLET PO (08:45)
[2020-11-22] MEDS: Calcium + Vitamin D 250 MG TABLET 500 MG PO (08:45)
[2020-11-22] MEDS: Aspirin 325 MG TABLET PO ×2 (08:45→20:25)
[2020-11-22] MEDS: lisinopriL 10 MG TABLET PO (08:45)
[2020-11-22] MEDS: Vitamin E (Dl,Tocopheryl Acet) 180 MG (400 UNIT) CAPSULE PO (08:45)
[2020-11-22] MEDS: Docusate Sodium 100 MG CAPSULE PO ×2 (08:45→20:26)
[2020-11-22] MEDS: hydroCHLOROthiazide 12.5 MG TABLET PO (08:45)
[2020-11-22] MEDS: amLODIPine Besylate 2.5 MG TABLET PO (08:46)
[2020-11-22] MEDS: Celecoxib 200 MG CAPSULE PO ×2 (08:46→20:26)
--- NOTE | 2020-11-22 10:40 | P.PNIM_ITS ---
Subjective Subjective Date of Service: 11/22/20 Interval History: Seen and examined this morning Reports some generalized itching. No tongue/lip swelling, difficulty breathing or swallowing. No rash Review of Systems Review of Systems: Yes all other systems are reviewed and are negative Constitutional Constitutional: Denies chills and Denies fever(s) Cardiovascular Cardiovascular: Denies chest pain Respiratory Respiratory: Denies cough Gastrointestinal Gastrointestinal: Denies abdominal pain Physical Exam Vital Signs: Vital Signs: Last Vital Signs Temp 97 F 11/22/20 06:57 Pulse 73 11/22/20 09:28 Resp 18 11/22/20 08:43 BP 137/65 11/22/20 09:28 Pulse Ox 97 11/22/20 06:57 Body Mass Index 39.6 Const: General: healthy appearing, comfortable, alert and awake Nutritional Appearance: overweight Orientation/consciousness: patient oriented x3 HENMT: Head: Yes normocephalic and Yes atraumatic Ears: hearing grossly normal bilaterally Eyes: Sclerae: sclerae normal Resp: Effort & Inspection: normal respiratory effort and no respiratory distress Cardio: Rate: regular rate Rhythm: regular rhythm GI: Palpation (GI): Soft to palpation and nontender Neuro: General: patient oriented x3 Cranial nerves: Yes CN's II-XII intact bilaterally and Yes Bilaterally intact EOM present Extrem: Other: right knee wrapped in arslan bandage Objective Data Active Medications Acetaminophen (Acetaminophen 325 Mg Tablet) 650 mg PO Q6H PRN PRN Reason: Pain, Mild (Pain Scale 1-3) Last Admin: 11/21/20 23:52 Dose: 650 mg Documented by: BESSY Albuterol Sulfate (Albuterol Sulfate 90 Mcg 8 Gm Inhaler) 1 puff INHALE Q4H PRN PRN Reason: Wheezing Amlodipine Besylate (Amlodipine Besylate 2.5 Mg Tablet) 2.5 mg PO DAILY [facility]; Protocol Last Admin: 11/22/20 08:46 Dose: 2.5 mg Documented by: ALEXANDRA Aspirin (Aspirin 325 Mg Tablet) 325 mg PO BID [facility] Last Admin: 11/22/20 08:45 Dose: 325 mg Documented by: ALEXANDRA Calcium Carbonate/Cholecalciferol (Calcium + Vitamin D 250 Mg Tablet) 500 mg PO DAILY [facility] Last Admin: 11/22/20 08:45 Dose: 500 mg Documented by: ALEXANDRA Celecoxib (Celecoxib 200 Mg Capsule) 200 mg PO BID [facility] Last Admin: 11/22/20 08:46 Dose: 200 mg Documented by: ALEXANDRA Clonazepam (Clonazepam 0.5 Mg Tablet) 0.5 mg PO DAILY PRN PRN Reason: Anxiety Dextrose (Dextrose 50 % 25 Gm/50 Ml Vial) 25 gm IVPUSH Q15M PRN; Protocol PRN Reason: per Hypoglycemia Standing Ord. Docusate Sodium (Docusate Sodium 100 Mg Capsule) 100 mg PO BID [facility] Last Admin: 11/22/20 08:45 Dose: 100 mg Documented by: ALEXANDRA Fluticasone Propionate (Fluticasone Propionate Nasal 16 Gm [place]) 1 spray NOSTRIL-B BID [facility] Last Admin: 11/21/20 21:24 Dose: 1 spray Documented by: ROMULO Fluticasone/Vilanterol (Fluticasone/Vilanterol 100/25 Blst.W.Dev) 1 puff INHALE RDAILY [facility] Last Admin: 11/22/20 07:51 Dose: 1 puff Documented by: JANINE Glucose (Glucose Gel 15 Gm Gel..Gram.) 15 gm PO Q15M PRN; Protocol PRN Reason: per Hypoglycemia Standing Ord. Hydrochlorothiazide (Hydrochlorothiazide 12.5 Mg Tablet) 12.5 mg PO DAILY [facility] Last Admin: 11/22/20 08:45 Dose: 12.5 mg Documented by: ALEXANDRA Hydromorphone HCl (Hydromorphone Hcl 0.5 Mg/0.5 Ml Syringe) 0.25 mg IVPUSH Q4H PRN; Protocol PRN Reason: Pain, Severe (Pain Scale 7-10) Last Admin: 11/22/20 08:43 Dose: 0.25 mg Documented by: ALEXANDRA Dextrose/Sodium Chloride (D51/2ns) 1,000 mls @ 80 mls/hr IVCONT .[id number] [facility] Last Admin: 11/22/20 06:02 Dose: 80 mls/hr Documented by: SONIA Cefazolin Sodium/Dextrose (Ancef) 2 gm in 50 mls @ 100 mls/hr IV POSTOP [facility] Insulin Human Lispro (Insulin Lispro 100 Unit/Ml 3 Ml Vial) 0 unit SUBCUT QIDACHS [facility]; Protocol Last Admin: 11/22/20 07:25 Dose: Not Given Documented by: ALEXANDRA Non-Admin Reason: No Insulin Coverage Lisinopril (Lisinopril 10 Mg Tablet) 10 mg PO DAILY [facility] Last Admin: 11/22/20 08:45 Dose: 10 mg Documented by: ALEXANDRA Montelukast Sodium (Montelukast Sodium 10 Mg Tablet) 10 mg PO DAILY [facility] Last Admin: 11/22/20 08:45 Dose: 10 mg Documented by: ALEXANDRA Non-Formulary Medication (Ursodiol) 750 mg PO DAILY [facility] Omeprazole (Omeprazole 20 Mg Capsule.Dr) 20 mg PO DAILY@0630 [facility] Last Admin: 11/22/20 06:02 Dose: 20 mg Documented by: SONIA Ondansetron HCl (Ondansetron Hcl 4 Mg/2 Ml Vial) 4 mg IVPUSH Q8H PRN PRN Reason: Nausea and Vomiting Last Admin: 11/21/20 20:21 Dose: 4 mg Documented by: ROMULO Oxycodone HCl (Oxycodone Hcl Immed Release 5 Mg Tablet) 5 mg PO Q4H PRN PRN Reason: Pain, Moderate (Pain Scale 4-6 Last Admin: 11/22/20 03:09 Dose: 5 mg Documented by: SONIA Oxycodone HCl (Oxycodone Hcl Er 10 Mg Tab.Er.12h) 10 mg PO BID [facility] Last Admin: 11/22/20 08:45 Dose: 10 mg Documented by: ALEXANDRA Sodium Chloride (0.9 % Sodium Chloride Flush 3 Ml Syringe) 3 ml IVFLUSH QSHIFT [facility] Last Admin: 11/22/20 08:43 Dose: 3 ml Documented by: ALEXANDRA Trazodone HCl (Trazodone Hcl 100 Mg Tablet) 100 mg PO BEDTIME [facility] Last Admin: 11/21/20 20:22 Dose: 100 mg Documented by: ROMULO Vitamin E (Vitamin E (Dl,Tocopheryl Acet) 180 Mg (400 Unit) Capsule) 180 mg PO DAILY [facility] Last Admin: 11/22/20 08:45 Dose: 180 mg Documented by: ALEXANDRA Labs CBC & Chem 7: 11/22/20 06:07 11/22/20 06:07 Labs: Laboratory Results - last 24 hr 11/21/20 11/22/20 11/22/20 20:08 06:07 06:07 MCV 87.3 MCH 30.2 MCHC 34.5 RDW 12.0 Plt Count 232 MPV 9.3 L Immature Gran % (Auto) 0.4 Neut % (Auto) 82.1 H Lymph % (Auto) 10.9 L [place] % (Auto) 6.5 Eos % (Auto) 0.0 Baso % (Auto) 0.1 Lymph # (Auto) 1.2 [place] # (Auto) 0.7 Eos # (Auto) 0.0 Baso # (Auto) 0.0 Abs Immat Gran (auto) 0.05 H Absolute Neuts (auto) 9.4 H Absolute Nucleated RBC 0.000 Nucleated RBC % (auto) 0.0 Anion Gap 11 L Estim Creat Clear Calc 83.8 Estimated GFR > 60 POC Glucose 186 H Fasting Glucose 120 H Calcium 8.7 11/22/20 06:58 MCV MCH MCHC RDW Plt Count MPV Immature Gran % (Auto) Neut % (Auto) Lymph % (Auto) [place] % (Auto) Eos % (Auto) Baso % (Auto) Lymph # (Auto) [place] # (Auto) Eos # (Auto) Baso # (Auto) Abs Immat Gran (auto) Absolute Neuts (auto) Absolute Nucleated RBC Nucleated RBC % (auto) Anion Gap Estim Creat Clear Calc Estimated GFR POC Glucose 144 H Fasting Glucose Calcium Assessment and Plan (1) Status post total right knee replacement: Status: Acute (2) Type 2 diabetes mellitus with complication, without long-term current use of insulin: Status: Acute (3) Essential hypertension: Status: Acute Assessment and Plan: 65-year-old woman admitted by Orthopedic surgery and is status post right total knee arthroplasty POD #1 s/p Right total knee arthroplasty. Management as per orthopedic team Diabetes mellitus. Hba1c from 10/10, 5.9 Blood sugars under adequate control Sliding scale, ADA diet Hypertension. Stable blood pressure. Continue home hydrochlorothiazide, lisinopril, Norvasc There are no other acute medical conditions at this time. Will sign off. Please feel free to contact us if any acute issues arise. DVT prophylaxis full dose ASA Attending Dr. Arriaga Quality Stroke Does the patient have a stroke diagnosis?: No VTE Prior VTE?: No VTE Risk Level:: Surgical - high VTE Device Contraindication: N/A - Device Ordered VTE Drug Contraindication: N/A - Med Ordered
[2020-11-22 11:31] LABS: Glucose, Whole Blood 171 mg/dL (60-115)
[2020-11-22] MEDS: Insulin Lispro 100 UNIT/ML 3 ML VIAL SUBCUT (11:45)
[2020-11-22] MEDS: diphenhydrAMINE HCL 25 MG TABLET PO ×2 (11:45→22:03)
[2020-11-22] MEDS: Fluticasone Propionate Nasal 16 GM SPRAY 1 SPRAY NOSTRIL-B ×2 (11:46→20:29)
--- NOTE | 2020-11-22 12:40 | MHC.CM.PN ---
PER PHYSICAL THERAPY, HOME [place] RECOMMENDED AT [place]. CM CALLED MAN AT [facility] ([phone]) AND INFORMED HER. SHE REPORTS SHE WILL CHECK WITH THE [facility] PT TO DETERMINE IF THEY WILL PROVIDE SERVICES OR NEED A REFERRAL TO BE SENT TO [facility].
[2020-11-22] MEDS: UrsodioL 300 MG CAPSULE 900 MG PO ×2 (14:10→20:26)
--- NOTE | 2020-11-22 15:04 | HO.POSTANES ---
Post Anesthesia Evaluation Post Anesthesia Evaluation Vital Signs: Vital Signs Temp Pulse Resp BP Pulse Ox 11/22/20 14:06 71 139/76 97 11/22/20 10:52 97 F 71 20 139/76 97 11/22/20 09:28 73 137/65 11/22/20 08:46 73 137/65 11/22/20 08:45 73 137/65 11/22/20 08:43 18 11/22/20 06:57 97 F 73 18 137/65 97 11/22/20 03:07 97.0 F 80 16 162/68 H 98 Anesthesia: Nerve Block and General Mental Status: Awake Pain Control: Satisfactory Nausea/Vomiting: None Hydration: Adequate Anesthesia-Related Issues: No Anes. Related Issues
--- NOTE | 2020-11-22 16:20 | MHC.CM.PN ---
CM MET WITH PT WITH THE ASSISTANCE OF [facility] FUNCTIONAL SUPPORT ANALYST. PT REPORTS SHE LIVES ALONE AND HAS WASH HELPER HOURS DAY AND EVENING BUT SAYS HER WASH HELPER CHECKS ON HER FREQUENTLY AND SOMETIMES STAYS OVERNIGHT WHEN SHE IS VERY ILL. PT ALSO REPORTS HER DAUGHTER ENRIQUE PROVIDES ANY ASSISTANCE NEEDED. PT REPORTS SHE DID HAVE A HCP NAMING ENRIQUE HER AGENT BUT SHE DOES NOT KNOW WHERE IT IS. PT COMPLETED A NEW ONE TODAY. PT REPORTS SHE HAS A CANE, WALKER, RAISED TOILET, BR RAILS, AND AN ELECTRIC W/C AT HOME. CURRENT DC PLAN IS HOME WITH RESUMPTION OF WASH HELPER AND NEW REFERRAL TO [facility] FOR PT/OT MAN AT [facility] HAS ALREADY AUTHORIZED NEW SERVICES. FAMILY TO TRANSPORT PT ASKED T/W TO CALL DAUGHTER. CM ATTEMPTED TO REACH DAUGHTER AND A VM MESSAGE WAS LEFT WITH CONTACT INFORMATION
[2020-11-22 16:30] LABS: Glucose, Whole Blood 134 mg/dL (60-115)
[2020-11-22] MEDS: traZODone HCL 100 MG TABLET PO (20:26)
[2020-11-22 20:33] LABS: Glucose, Whole Blood 149 mg/dL (60-115)
[2020-11-23] VITALS (11 sets, daily range): BP systolic 103–127; BP diastolic 59–79; PULSE 79–104; RESP 16–20; TEMP 36.1–36.8; O2SAT 92–95
[2020-11-23] MEDS: HYDROmorphone HCl 0.5 MG/0.5 ML SYRINGE 0.25 MG IVPUSH ×3 (03:41→22:39)
[2020-11-23] MEDS: Dextrose 5 % and 0.45 % NaCl 1,000 ML 80 ML IVCONT ×2 (05:55→18:13)
[2020-11-23] MEDS: Omeprazole 20 MG CAPSULE.DR PO (05:56)
[2020-11-23 06:38] LABS: MANUAL DIFF FLAG NO
[2020-11-23 07:02] LABS: Basophils Percent Auto 0.1 % (0-2); Eosinophils Absolute Auto 0.2 X10*3/uL (0.0-0.4); Eosinophils Percent Auto 1.9 % (0-4); Hematocrit 30.5 % (37-47); Hemoglobin 10.6 g/dl (12.0-16.0); Imm Gran Abs Auto 0.04 X10*3/uL (0.00-0.03); Imm Gran Pct Auto 0.4 % (0.0-0.4); Lymphocytes Absolute Auto 1.7 X10*3/uL (1.2-4.9); Lymphocytes Percent Auto 16.5 % (20-40); Mean Corpuscular HGB Conc 34.8 g/dl (31.0-35.0); Mean Corpuscular Hemoglobin 30.5 pg (27.0-33.0); Mean Corpuscular Volume 87.6 fL (80-98); Mean Platelet Volume 9.3 fL (9.4-12.3); Monocytes Absolute Auto 1.1 X10*3/uL (0.1-1.2); Monocytes Percent Auto 10.4 % (2-11); Neutrophils Absolute Auto 7.4 X10*3/uL (2.0-8.3); Neutrophils Percent Auto 70.7 % (45-73); Platelet Count 221 X10*3/uL (160-400); Red Blood Count 3.48 X10*6/uL (4.20-5.50); Red Cell Distribution Width 12.1 % (11.0-16.0); White Blood Count 10.5 X10*3/uL (4.8-10.8)
[2020-11-23 07:48] LABS: Glucose, Whole Blood 140 mg/dL (60-115)
[2020-11-23] MEDS: Aspirin 325 MG TABLET PO ×2 (07:54→20:26)
[2020-11-23] MEDS: Docusate Sodium 100 MG CAPSULE PO ×2 (07:54→20:26)
[2020-11-23] MEDS: Calcium + Vitamin D 250 MG TABLET 500 MG PO (07:55)
[2020-11-23] MEDS: Montelukast Sodium 10 MG TABLET PO (07:55)
[2020-11-23] MEDS: lisinopriL 10 MG TABLET PO (07:55)
[2020-11-23] MEDS: UrsodioL 300 MG CAPSULE 900 MG PO ×2 (07:55→20:26)
[2020-11-23] MEDS: amLODIPine Besylate 2.5 MG TABLET PO (07:55)
[2020-11-23] MEDS: oxyCODONE HCl ER 10 MG TAB.ER.12H PO ×2 (07:55→20:26)
[2020-11-23] MEDS: Celecoxib 200 MG CAPSULE PO ×2 (07:56→20:26)
[2020-11-23] MEDS: hydroCHLOROthiazide 12.5 MG TABLET PO (07:56)
[2020-11-23] MEDS: Fluticasone Propionate Nasal 16 GM SPRAY 1 SPRAY NOSTRIL-B ×2 (07:56→20:27)
[2020-11-23] MEDS: Vitamin E (Dl,Tocopheryl Acet) 180 MG (400 UNIT) CAPSULE PO (07:56)
[2020-11-23] MEDS: Fluticasone/Vilanterol 100/25 BLST.W.DEV 1 PUFF INHALE (08:11)
[2020-11-23 08:12] LABS: Anion Gap 11 (12-20); Blood Urea Nitrogen 9 mg/dL (9-16); Calcium 8.7 mg/dL (8.4-10.2); Carbon Dioxide 29 mmol/L (22-29); Chloride 100 mmol/L (96-108); Creatinine Clr Calc Pharmacy 85.1; Estimated Glomerular Filt Rate > 60; Glucose Fasting 139 mg/dL (60-99); Potassium 3.5 mmol/L (3.3-5.1); Sodium 136 mmol/L (135-145)
--- NOTE | 2020-11-23 08:19 | PM.PNORT ---
Subjective Subjective Date of Service: 11/23/20 Interval history: POD2 s/p RTKA. Patient is still struggling with pain management. She is sitting in the chair. PT at bedside to begin session. No additional complaints. Physical Exam Vital Signs: Vital Signs: Last Vital Signs Temp 97.9 F 11/23/20 07:35 Pulse 93 11/23/20 07:55 Resp 19 11/23/20 07:54 BP 127/69 11/23/20 07:55 Pulse Ox 93 11/23/20 07:35 Body Mass Index 39.6 Const: General: cooperative, healthy appearing and no acute distress Resp: Effort & Inspection: normal respiratory effort and able to speak in complete sentences Cardio: Rate: regular rate Peripheral pulses: Peripheral pulses 2+ throughout GI: Palpation (GI): Soft to palpation Skin: Lesions: no lesions Rashes: no rashes Extrem: Other: Right knee Aquacel dressing is clean, dry, and intact. Patient is able to dorsiflex and plantarflex. Sensation intact. Pedal pulse intact. Procedures Date of Service Date of Service: 11/23/20 Progress Note: A&P Assessment and plan (1) Status post total right knee replacement: Status: Acute Assessment and Plan: Continue pain mgmnt Continue ASA for dvt ppx Continue PT for RTKA? Dispo planning-PT, pain mgmnt Fall Risk Details Current Medications: Current Medications Generic Name Dose Route Start Last Admin Trade Name Freq PRN Reason Stop Dose Admin Acetaminophen 650 mg 11/21/20 16:40 11/21/20 23:52 Acetaminophen 325 Mg Tablet PO 650 mg Q6H PRN Administration Pain, Mild (Pain Scale 1-3) Albuterol Sulfate 1 puff 11/21/20 17:23 Albuterol Sulfate 90 Mcg 8 Gm Inhaler INHALE Q4H PRN Wheezing Amlodipine Besylate 2.5 mg 11/22/20 09:00 11/23/20 07:55 Amlodipine Besylate 2.5 Mg Tablet PO 2.5 mg DAILY MIRELLA Administration Protocol Aspirin 325 mg 11/22/20 09:00 11/23/20 07:54 Aspirin 325 Mg Tablet PO 325 mg BID MIRELLA Administration Calcium Carbonate/Cholecalciferol 500 mg 11/22/20 09:00 11/23/20 07:55 Calcium + Vitamin D 250 Mg Tablet PO 500 mg DAILY MIRELLA Administration Celecoxib 200 mg 11/21/20 21:00 11/23/20 07:56 Celecoxib 200 Mg Capsule PO 200 mg BID MIRELLA Administration Clonazepam 0.5 mg 11/21/20 17:23 Clonazepam 0.5 Mg Tablet PO DAILY PRN Anxiety Dextrose 25 gm 11/21/20 17:24 Dextrose 50 % 25 Gm/50 Ml Vial IVPUSH Q15M PRN per Hypoglycemia Standing Ord. Protocol Diphenhydramine HCl 25 mg 11/22/20 17:30 11/22/20 22:03 Diphenhydramine Hcl 25 Mg Tablet PO 25 mg Q6H PRN Administration Itching Docusate Sodium 100 mg 11/21/20 21:00 11/23/20 07:54 Docusate Sodium 100 Mg Capsule PO 100 mg BID MIRELLA Administration Fluticasone Propionate 1 spray 11/21/20 21:00 11/23/20 07:56 Fluticasone Propionate Nasal 16 Gm [place] NOSTRIL-B 1 spray BID MIRELLA Administration Fluticasone/Vilanterol 1 puff 11/22/20 08:00 11/23/20 08:11 Fluticasone/Vilanterol 100/25 Blst.W.Dev INHALE 1 puff RDAILY MIRELLA Administration Glucose 15 gm 11/21/20 17:24 Glucose Gel 15 Gm Gel..Gram. PO Q15M PRN per Hypoglycemia Standing Ord. Protocol Hydrochlorothiazide 12.5 mg 11/22/20 09:00 11/23/20 07:56 Hydrochlorothiazide 12.5 Mg Tablet PO 12.5 mg DAILY MIRELLA Administration Hydromorphone HCl 0.25 mg 11/21/20 16:40 11/23/20 07:54 Hydromorphone Hcl 0.5 Mg/0.5 Ml Syringe IVPUSH 0.25 mg Q4H PRN Administration Pain, Severe (Pain Scale 7-10) Protocol Dextrose/Sodium Chloride 1,000 mls @ 80 mls/hr 11/21/20 16:40 11/23/20 05:55 D51/2ns IVCONT 80 mls/hr .[id number] MIRELLA Administration Cefazolin Sodium/Dextrose 2 gm in 50 mls @ 100 mls/hr 11/21/20 17:15 Ancef IV POSTOP MIRELLA Insulin Human Lispro 0 unit 11/21/20 21:00 11/23/20 07:35 Insulin Lispro 100 Unit/Ml 3 Ml Vial SUBCUT Not Given QIDACHS [facility] Protocol Lisinopril 10 mg 11/22/20 09:00 11/23/20 07:55 Lisinopril 10 Mg Tablet PO 10 mg DAILY MIRELLA Administration Montelukast Sodium 10 mg 11/22/20 09:00 11/23/20 07:55 Montelukast Sodium 10 Mg Tablet PO 10 mg DAILY MIRELLA Administration Omeprazole 20 mg 11/22/20 06:30 11/23/20 05:56 Omeprazole 20 Mg Capsule. PO 20 mg DAILY@0630 MIRELLA Administration Ondansetron HCl 4 mg 11/21/20 16:40 11/21/20 20:21 Ondansetron Hcl 4 Mg/2 Ml Vial IVPUSH 4 mg Q8H PRN Administration Nausea and Vomiting Oxycodone HCl 5 mg 11/21/20 16:40 11/22/20 22:03 Oxycodone Hcl Immed Release 5 Mg Tablet PO 5 mg Q4H PRN Administration Pain, Moderate (Pain Scale 4-6 Oxycodone HCl 10 mg 11/21/20 21:00 11/23/20 07:55 Oxycodone Hcl Er 10 Mg Tab.Er.12h PO 10 mg BID MIRELLA Administration Sodium Chloride 3 ml 11/21/20 16:40 11/23/20 07:22 0.9 % Sodium Chloride Flush 3 Ml Syringe IVFLUSH Not Given QSHIFT [facility] Trazodone HCl 100 mg 11/21/20 21:00 11/22/20 20:26 Trazodone Hcl 100 Mg Tablet PO 100 mg BEDTIME MIRELLA Administration Ursodiol 900 mg 11/22/20 13:45 11/23/20 07:55 Ursodiol 300 Mg Capsule PO 900 mg BID [facility] Administration Vitamin E 180 mg 11/22/20 09:00 11/23/20 07:56 Vitamin E (Dl,Tocopheryl Acet) 180 Mg (400 Unit) Capsule PO 180 mg DAILY MIRELLA Administration Time Spent With Patient Time: Total time spent is greater than 50% in coordination of care (as documented) at patient's floor/unit and/or counseling patient: Time with patient: less than 15 minutes Quality Stroke Does the patient have a stroke diagnosis?: No VTE Prior VTE?: No VTE Risk Level:: Surgical - high VTE Device Contraindication: N/A - Device Ordered VTE Drug Contraindication: N/A - Med Ordered
[2020-11-23] MEDS: Insulin Lispro 100 UNIT/ML 3 ML VIAL SUBCUT ×2 (11:54→20:26)
[2020-11-23 12:12] LABS: Glucose, Whole Blood 155 mg/dL (60-115)
--- NOTE | 2020-11-23 12:59 | MHC.CM.PN ---
CM MET WITH PT WITH ASSISTANCE OF EXTRUSION OPERATOR. PT IS AWARE STR IS BEING RECOMMENDED, SHE REPORTS BEING AGREEABLE BUT WOULD LIKE STAY IN THE [facility]. PT REPORTS SHE HAS RECEIVED THE COVID19 VACCINE AND HAS THE CARD AT HOME. PTS PROTOTYPE SEWER IS AT BEDSIDE AND REPORTS HE CAN GO GET THE CARD AND BRING IT IN. REFERRALS WERE MADE TO [facility] SNFS. [facility] IS UNABLE TO OFFER A BED, [facility] IS CHECKING AND [facility] IS ABLE TO OFFER A BED FOR TOMORROW. CURRENT DC PLAN IS STR, FACILITY TBD BLS TRANSPORT
[2020-11-23] MEDS: Acetaminophen 325 MG TABLET 650 MG PO (13:59)
[2020-11-23] MEDS: oxyCODONE HCl Immed Release 5 MG TABLET PO ×2 (13:59→19:32)
[2020-11-23 16:23] LABS: Glucose, Whole Blood 142 mg/dL (60-115)
[2020-11-23 20:07] LABS: Glucose, Whole Blood 153 mg/dL (60-115)
[2020-11-23] MEDS: traZODone HCL 100 MG TABLET PO (20:26)
[2020-11-24] MEDS: oxyCODONE HCl Immed Release 5 MG TABLET PO ×3 (00:47→15:13)
[2020-11-24 03:18] VITALS: BP 105/64; PULSE 89; RESP 20; TEMP 36.4; O2SAT 94
[2020-11-24] MEDS: Dextrose 5 % and 0.45 % NaCl 1,000 ML 80 ML IVCONT (05:42)
[2020-11-24] MEDS: HYDROmorphone HCl 0.5 MG/0.5 ML SYRINGE 0.25 MG IVPUSH (05:46)
[2020-11-24] MEDS: Omeprazole 20 MG CAPSULE.DR PO (05:47)
[2020-11-24 06:45] LABS: MANUAL DIFF FLAG NO
[2020-11-24 06:51] LABS: Basophils Percent Auto 0.3 % (0-2); Eosinophils Absolute Auto 0.6 X10*3/uL (0.0-0.4); Eosinophils Percent Auto 5.9 % (0-4); Hematocrit 29.4 % (37-47); Imm Gran Abs Auto 0.01 X10*3/uL (0.00-0.03); Imm Gran Pct Auto 0.1 % (0.0-0.4); Lymphocytes Absolute Auto 2.3 X10*3/uL (1.2-4.9); Lymphocytes Percent Auto 23.1 % (20-40); Mean Corpuscular Hemoglobin 29.8 pg (27.0-33.0); Mean Corpuscular Volume 87.5 fL (80-98); Mean Platelet Volume 9.5 fL (9.4-12.3); Monocytes Absolute Auto 0.8 X10*3/uL (0.1-1.2); Neutrophils Absolute Auto 6.2 X10*3/uL (2.0-8.3); Neutrophils Percent Auto 62.6 % (45-73); Platelet Count 211 X10*3/uL (160-400); Red Blood Count 3.36 X10*6/uL (4.20-5.50); Red Cell Distribution Width 12.2 % (11.0-16.0)
[2020-11-24 07:16] LABS: Anion Gap 12 (12-20); Blood Urea Nitrogen 9 mg/dL (9-16); Calcium 8.2 mg/dL (8.4-10.2); Carbon Dioxide 29 mmol/L (22-29); Chloride 100 mmol/L (96-108); Creatinine Clr Calc Pharmacy 89.3; Estimated Glomerular Filt Rate > 60; Glucose Fasting 137 mg/dL (60-99); Potassium 3.3 mmol/L (3.3-5.1); Sodium 138 mmol/L (135-145)
[2020-11-24 07:22] VITALS: BP 107/64; PULSE 74; RESP 18; TEMP 36; O2SAT 94
[2020-11-24 07:43] VITALS: PULSE 92; O2SAT 93
[2020-11-24] MEDS: Fluticasone/Vilanterol 100/25 BLST.W.DEV 1 PUFF INHALE (07:43)
[2020-11-24 07:57] LABS: Glucose, Whole Blood 150 mg/dL (60-115)
[2020-11-24] MEDS: Celecoxib 200 MG CAPSULE PO (09:04)
[2020-11-24] MEDS: UrsodioL 300 MG CAPSULE 900 MG PO (09:04)
[2020-11-24] MEDS: Docusate Sodium 100 MG CAPSULE PO (09:04)
[2020-11-24] MEDS: Aspirin 325 MG TABLET PO (09:05)
[2020-11-24] MEDS: Calcium + Vitamin D 250 MG TABLET 500 MG PO (09:05)
[2020-11-24] MEDS: Vitamin E (Dl,Tocopheryl Acet) 180 MG (400 UNIT) CAPSULE PO (09:05)
[2020-11-24] MEDS: ondansetron HCL 4 MG/2 ML VIAL IVPUSH (09:10)
[2020-11-24] MEDS: amLODIPine Besylate 2.5 MG TABLET PO (09:10)
[2020-11-24] MEDS: lisinopriL 10 MG TABLET PO (09:10)
[2020-11-24] MEDS: Montelukast Sodium 10 MG TABLET PO (09:10)
[2020-11-24] MEDS: hydroCHLOROthiazide 12.5 MG TABLET PO (09:10)
[2020-11-24] MEDS: oxyCODONE HCl ER 10 MG TAB.ER.12H PO (09:10)
[2020-11-24] MEDS: Fluticasone Propionate Nasal 16 GM SPRAY 1 SPRAY NOSTRIL-B (09:11)
--- NOTE | 2020-11-24 10:06 | MHC.CM.PN ---
IMM 11/24/20, CM MET W/ORTHO PA WHO REPORTS PT IS READY FOR D/C, CM UPDATED CC VIA [employer] AT 0820 W/NO RESPONSE, CM DID TEXT LIAISON AT [phone] AND LIAISON REPORTS SHE WILL GO FOR AUTH, CM MET W/PT VIA CREEL SELECTOR, PT AGREEABLE TO [facility] SHE WANTED TO STAY IN [place], PT DID C/O NAUSEA D/T CONSTIPATION AND PT'S NURSE AWARE.
--- NOTE | 2020-11-24 10:37 | PM.DS ---
DS: Providers Provider Date of Service: 11/24/20 Date of admission: 11/21/20 09:33 Primary care physician: Darcy Temple MD Consults: 11/21/20 16:40 Consult to Hospitalist Routine Consulting Provider: Hospitalist Reason For Exam: routine medical management DS: Diagnosis Discharge Diagnosis (1) Status post total right knee replacement: Status: Acute DS: Summary Hospital Course Hospital Course: Ms. Hussein is a 65 yo female who presented to the office for right knee pain. She was found to have end stage OA and had difficulty with daily activities; therefore, she consented to move forward with Right TKA. The patient underwent a successful right total knee arthroplasty, was transferred to PACU and then to the floor to recover. During their stay, their vitals were stable, afebrile at 96.8. Labs were unremarkable, H/H 10.0/29.4 . POD 1 she was started on ASA for DVT ppx, they also received PT/OT services twice a day. Prior to discharge, their dressing was change, incision clean dry and intact, new Aquacel dressing applied and the plan was to be [facility] Time Spent with Patient Time attestation: Total time spent providing and/or coordinating discharge services: Discharge coordination time: Greater than 30 minutes Quality: Stroke Does the patient have a stroke diagnosis?: No Physical Exam Vital Signs: Vital Signs: Last Vital Signs Temp 96.8 F 11/24/20 07:22 Pulse 74 11/24/20 07:22 Resp 18 11/24/20 07:22 BP 107/64 11/24/20 07:22 Pulse Ox 94 11/24/20 07:22 Body Mass Index 39.6 Const: General: cooperative, healthy appearing and no acute distress Resp: Effort & Inspection: normal respiratory effort and able to speak in complete sentences Cardio: Rate: regular rate Peripheral pulses: Peripheral pulses 2+ throughout GI: Palpation (GI): Soft to palpation Skin: General skin exam: no rashes or lesions noted Extrem: Other: incision clean dry and intact. [place] intact. No erythema or joint effusion. Calf supple nontender. Neurovascularly intact. DS: Data Data Completed and Pending Completed studies during hospitalization [Text1]: Pending at discharge 11/21/20 13:47 Surgical [PTH] Routine Labs on day of discharge: Laboratory Results - last 24 hr 09/06/1011/23/20 11/23/20 11:40 16:12 20:01 WBC RBC Hgb Hct MCV MCH MCHC RDW Plt Count MPV Immature Gran % (Auto) Neut % (Auto) Lymph % (Auto) [place] % (Auto) Eos % (Auto) Baso % (Auto) Lymph # (Auto) [place] # (Auto) Eos # (Auto) Baso # (Auto) Abs Immat Gran (auto) Absolute Neuts (auto) Absolute Nucleated RBC Nucleated RBC % (auto) Sodium Potassium Chloride Carbon Dioxide Anion Gap BUN Creatinine Estim Creat Clear Calc Estimated GFR POC Glucose 155 H 142 H 153 H Fasting Glucose Calcium 11/24/20 11/24/20 11/24/20 06:19 06:19 07:21 WBC 10.0 RBC 3.36 L Hgb 10.0 L Hct 29.4 L MCV 87.5 MCH 29.8 MCHC 34.0 RDW 12.2 Plt Count 211 MPV 9.5 Immature Gran % (Auto) 0.1 Neut % (Auto) 62.6 Lymph % (Auto) 23.1 [place] % (Auto) 8.0 Eos % (Auto) 5.9 H Baso % (Auto) 0.3 Lymph # (Auto) 2.3 [place] # (Auto) 0.8 Eos # (Auto) 0.6 H Baso # (Auto) 0.0 Abs Immat Gran (auto) 0.01 Absolute Neuts (auto) 6.2 Absolute Nucleated RBC 0.000 Nucleated RBC % (auto) 0.0 Sodium 138 Potassium 3.3 Chloride 100 Carbon Dioxide 29 Anion Gap 12 BUN 9 Creatinine 0.60 Estim Creat Clear Calc 89.3 Estimated GFR > 60 POC Glucose 150 H Fasting Glucose 137 H Calcium 8.2 L Discharge Plan Discharge Patient Disposition: er [facility] Discharge Diagnosis: s/p rt tka Referrals: David Farris PA-C [Physician Electronics Technology Instructor] - 2 Weeks (12/05/20 1:00 [facility] David Farris PA-C) Discharge Medications: New docusate sodium 100 mg Capsule 100 mg PO BID 14 Days Qty: 28 RF: 0 celecoxib 200 mg Capsule 200 mg PO BID 30 Days Qty: 60 RF: 0 aspirin 325 mg Tablet 325 mg PO BID 42 Days Qty: 84 RF: 0 oxycodone 5 mg Tablet 5 mg PO Q4H PRN (Reason: Pain, Moderate (Pain Scale 4-6) 7 Days Qty: 42 RF: 0 acetaminophen 325 mg Tablet 650 mg PO Q6H PRN (Reason: Pain, Mild (Pain Scale 1-3)) 30 Days Qty: 240 RF: 0 Continued calcium carbonate-vitamin D3 600 mg(1,500mg) -400 unit tablet 1 tab PO QAM Qty: 30 RF: 5 vitamin E (dl, acetate) 180 mg (400 unit) capsule 180 mg PO DAILY RF: 0 lisinopril-hydrochlorothiazide 10-12.5 mg tablet 1 tab PO DAILY RF: 0 amlodipine 2.5 mg tablet 2.5 mg PO DAILY RF: 0 metformin 500 mg tablet 500 mg PO QAM RF: 0 fluticasone propionate 50 mcg/actuation spray,suspension 50 mcg intranasal BID RF: 0 montelukast 10 mg tablet 10 mg PO DAILY RF: 0 ursodiol 250 mg tablet 750 mg PO BID RF: 0 albuterol sulfate 90 mcg/actuation HFA aerosol inhaler 90 mcg inhalation Q4-6H PRN (Reason: Wheezing) RF: 0 clonazepam 0.5 mg tablet 0.5 mg PO DAILY PRN (Reason: Anxiety) RF: 0 atorvastatin 20 mg tablet 20 mg PO DAILY RF: 0 tiotropium bromide 1.25 mcg/actuation mist 2 puff inhalation DAILY RF: 0 darifenacin 15 mg tablet extended release 24 hr 15 mg PO QAM RF: 0 omeprazole 20 mg capsule,delayed release(DR/EC) 20 mg PO QAM RF: 0 trazodone 150 mg tablet 150 mg PO BEDTIME RF: 0 trazodone 100 mg tablet 100 mg PO BEDTIME RF: 0 fluticasone propion-salmeterol 115-21 mcg/actuation HFA aerosol inhaler 2 puff inhalation BID RF: 0 Discontinued naproxen 500 mg tablet 500 mg PO BID PRN (Reason: pain) 10 Days Qty: 20 RF: 0 acetaminophen [Tylenol Extra Strength] 500 mg tablet 500 mg PO Q6H PRN (Reason: pain or fever) Qty: 20 RF: 0 hydrocodone-acetaminophen 5-325 mg tablet 1 tab PO Q8H PRN (Reason: pain) RF: 0 Discharge Orders: Discharge Order (Routine); Ordered 11/24/20 Ordered By: David Farris Diet: regular diet Activity on Discharge: Use cane or walker Stand Alone Forms: Patient Portal Discharge page Care Plan Goals: Restore function of joint Health Concerns: none Plan of Treatment: Physical Therapy Pain management DVT prophylaxis Assessment: Physical Therapy for Total knee arthroplasty: gait training, ROM 0-12, quad strength Limit stair climbing No showering, no tub bath-keep dressing clean, dry and intact No driving x6 weeks Continue Aspirin twice a day x 4 weeks Follow up with [facility] in 2 weeks
[2020-11-24] MEDS: bisacodyL 10 MG SUPP.RECT PR (11:30)
[2020-11-24 11:33] VITALS: BP 108/64; PULSE 78; RESP 18; TEMP 36.3; O2SAT 95
[2020-11-24 12:05] LABS: Glucose, Whole Blood 174 mg/dL (60-115)
[2020-11-24 12:09] LABS: COVID-19 Test Negative (Negative)
--- NOTE | 2020-11-24 13:47 | MHC.CM.PN ---
PT DISCHARGING TO [facility] AT 1600 [facility].
[2020-11-24] MEDS: 0.9 % Sodium Chloride Flush 3 ML SYRINGE IVFLUSH (15:13)
--- NOTE | 2020-11-24 15:32 | PC.NURSE ---
FC removed,one void completed past removal. One lg BM. Patient ambulates well with walker ,one assist.
== END 2020-11-24 16:36 | disposition skilled nursing facility (03) | DRG 470 ==
LOC: HO.SSSA 09:37 → HO.S3 14:47
PROVIDERS: Orthopaedic Surgery; Physician Assistant; Admitting Provider Orthopaedic Surgery; PCP Internal Medicine; Visit Provider Orthopaedic Surgery
PROC: 0SRC0JA Replacement of Right Knee Joint with Synthetic Substitute, Uncemented, Open Approach (ICD-10-PCS; CPT 27447; principal; 2020-11-21 11:20)
DX: M17.11 Unilateral primary osteoarthritis, right knee (principal); I10 Essential (primary) hypertension; E11.9 Type 2 diabetes mellitus without complications; Z20.822 Contact with and (suspected) exposure to COVID-19; Z79.1 Long term (current) use of non-steroidal anti-inflammatories (NSAID); Z79.51 Long term (current) use of inhaled steroids; Z79.899 Other long term (current) drug therapy
CPT/HCPCS: 36415; 73560; 80048; 82947; 85025; 86850; 86900; 86901; 87635; 87640; 87641; 88305; 88311; 93005; 97110; 97116; 97161; 97165; 97530; 97535; C1758; C1776; J0690; J1100; J1170; J2250; J2405; J3010; Q0163

== ENCOUNTER → 2020-12-05 08:57 | Outpatient (BNVA) | payer OTHER, SELFPAY | PROVIDERS: Visit Provider Physician Assistant | DX: Z47.1 Aftercare following joint replacement surgery (principal); Z96.651 Presence of right artificial knee joint | CPT/HCPCS: 99212 ==

== ENCOUNTER → 2021-01-04 09:41 | Outpatient (BNVA) | payer OTHER, SELFPAY | PROVIDERS: PCP Nurse Practitioner Family; Visit Provider Nurse Practitioner Family | DX: M54.50 Low back pain, unspecified (principal); M17.11 Unilateral primary osteoarthritis, right knee | CPT/HCPCS: 99212 ==

== ENCOUNTER → 2021-01-07 10:13 | Outpatient (BNVA) | payer OTHER, SELFPAY | PROVIDERS: Visit Provider Orthopaedic Surgery | DX: Z47.1 Aftercare following joint replacement surgery (principal); Z96.651 Presence of right artificial knee joint | CPT/HCPCS: 99212 ==

== ENCOUNTER 2021-01-09 10:09 | Outpatient (REF) | payer OTHER, SELFPAY ==
[2021-01-09 10:40] LABS: COVID-19 Test Negative (Negative)
== END 2021-01-09 10:10 | disposition home or self-care (01) ==
LOC: HO.LAB 10:09
PROVIDERS: Visit Provider Internal Medicine
DX: Z20.822 Contact with and (suspected) exposure to COVID-19 (principal)
CPT/HCPCS: 36415; 87635; C9803

== ENCOUNTER 2021-01-31 12:23 | Outpatient (REF) | payer OTHER, SELFPAY | END 2021-01-31 12:24 | disposition home or self-care (01) | LOC: HO.HOSX 12:23 | PROVIDERS: Visit Provider Orthopaedic Surgery | DX: Z13.89 Encounter for screening for other disorder (principal) ==

== ENCOUNTER 2021-02-04 09:00 | Outpatient (REF) | payer OTHER, SELFPAY ==
--- NOTE | ~2021-02-04 | XR_ITS ---
EXAMINATION: KNEE X-RAY CLINICAL INFORMATION: Post right knee replacement COMPARISON: Previous x-ray most recent November 2020 TECHNIQUE: Standing AP view of both knees and lateral and sunrise view of the right knee FINDINGS: Right: There is a 3 component right knee replacement in satisfactory position. No fracture, dislocation or x-ray evidence of loosening is seen. There is a small joint effusion. Standing AP view of the left knee demonstrates medial femoral tibial joint space narrowing. XR/XR knee RT 2V IMPRESSION: Right: Satisfactory appearance of right knee replacement. Small joint effusion. Left: Medial femoral tibial joint space narrowing.
--- NOTE | ~2021-02-04 | XR_ITS ---
EXAMINATION: KNEE X-RAY CLINICAL INFORMATION: Post right knee replacement COMPARISON: Previous x-ray most recent November 2020 TECHNIQUE: Standing AP view of both knees and lateral and sunrise view of the right knee FINDINGS: Right: There is a 3 component right knee replacement in satisfactory position. No fracture, dislocation or x-ray evidence of loosening is seen. There is a small joint effusion. Standing AP view of the left knee demonstrates medial femoral tibial joint space narrowing. XR/XR knee standing BI IMPRESSION: Right: Satisfactory appearance of right knee replacement. Small joint effusion. Left: Medial femoral tibial joint space narrowing.
== END 2021-02-04 09:01 | disposition home or self-care (01) ==
LOC: HO.HOSX 09:00
PROVIDERS: PCP Internal Medicine; Visit Provider Orthopaedic Surgery
DX: M17.12 Unilateral primary osteoarthritis, left knee (principal); Z96.651 Presence of right artificial knee joint
CPT/HCPCS: 73560; 73565; 99212

== ENCOUNTER 2021-02-20 08:28 | Outpatient (REF) | payer OTHER, SELFPAY | END 2021-02-20 08:29 | disposition home or self-care (01) | LOC: HO.LAB 08:28 | PROVIDERS: Visit Provider Internal Medicine | DX: Z20.822 Contact with and (suspected) exposure to COVID-19 (principal) | CPT/HCPCS: C9803; U0003; U0005 ==

== ENCOUNTER 2021-02-27 07:40 | Outpatient (REF) | payer OTHER, SELFPAY ==
--- NOTE | ~2021-02-27 | XR_ITS ---
EXAMINATION: CR X-RAY KNEES BILATERAL STANDING, RIGHT KNEE 2 VIEW CLINICAL INFORMATION: Status post right knee arthroplasty, follow-up. COMPARISON: None TECHNIQUE: Bilateral AP standing views of the knees as well as 2 views of the right knee were obtained. FINDINGS: The patient is status post right knee arthroplasty showing good anatomic alignment with no evidence for hardware malfunction. There is no acute fracture. The soft tissues are unremarkable. The left knee shows mild to moderate medial femoral-tibial joint space narrowing. XR/XR knee standing BI IMPRESSION: 1. No right knee hardware abnormality. 2. Mild to moderate medial femoral-tibial joint space narrowing suggesting osteoarthritis.
--- NOTE | ~2021-02-27 | XR_ITS ---
EXAMINATION: CR X-RAY KNEES BILATERAL STANDING, RIGHT KNEE 2 VIEW CLINICAL INFORMATION: Status post right knee arthroplasty, follow-up. COMPARISON: None TECHNIQUE: Bilateral AP standing views of the knees as well as 2 views of the right knee were obtained. FINDINGS: The patient is status post right knee arthroplasty showing good anatomic alignment with no evidence for hardware malfunction. There is no acute fracture. The soft tissues are unremarkable. The left knee shows mild to moderate medial femoral-tibial joint space narrowing. XR/XR knee RT 2V IMPRESSION: 1. No right knee hardware abnormality. 2. Mild to moderate medial femoral-tibial joint space narrowing suggesting osteoarthritis.
== END 2021-02-27 07:41 | disposition home or self-care (01) ==
LOC: HO.XRAY 07:40
PROVIDERS: Absent Provider Internal Medicine; PCP Internal Medicine; Visit Provider Emergency Medicine
DX: G89.18 Other acute postprocedural pain (principal); M25.561 Pain in right knee; M25.551 Pain in right hip
CPT/HCPCS: 73560; 73565

== ENCOUNTER 2021-03-06 11:00 | Outpatient (RCR) | payer OTHER, SELFPAY ==
--- NOTE | 2020-12-17 13:29 | MHC.PT.EP ---
[facility] [place] Office [place] Office [place] Office [address] [place] [address] [phone] F: [phone] F: [phone] F: [phone] F: [phone] Physical Therapy Plan of Care Date of Evaluation: Date of Surgery: 11/19/2020 Diagnosis: S/p R TKR Assessment: Patient is a 65 year old female presenting to PT s/p R TKR on 11/19/2020. She presents today with impairments in pain, ROM, strength, and balance. Pt's current occupation is none at this time, with baseline physical activities including ambulation, transfers, ADLs. Pt expresses fpc goal of getting better and walking well, and is motivated to work towards this in PT. Clinical presentation today is most consistent with signs and sx associated with s/p R TKR and pt will benefit from skilled PT to address the following problems and impairments noted upon evaluation: pain, ROM, strength, and balance. These problems limit the patient with the following functional activities: ambulation, transfers, ADLs. The prescribed treatment plan of care is medically necessary. Co-morbidities of HTN were identified and taken into considerations of plan of care. Pt was educated on HEP, role of PT, prognosis, POC. Frequency and Duration: The patient will be seen 2x week x 6 weeks Short Term Goals: Pt will demonstrate improved knee AROM to 0 of extension and 120 of flexion in 3 weeks for improved ability to transfer. Pt will demonstrate improved knee strength by 1/3 MMT in 3 weeks for improved strength with ambulation. Pt will demonstrate improved hip strength by 1/3 MMT in 3 weeks for improved lumbopelvic stability. Pt will demonstrate ability to SLS x 30 sec with min sway in 3 weeks for improved balance. Correction Goals: Pt will demonstrate ability to ambulate with no AD and good mechanics in 6 weeks to improve access to her home and community. Pt will demonstrate ability to complete all ADLs with min to no pain in 6 weeks to allow return to PLOF. Treatment Plan: Modalities to reduce pain, spasms and effusion. Manual therapy to restore motion and function. Therapeutic exercise to improve strength and flexibility. Neuromuscular re-education for posture and balance. Therapeutic activities to return to functional activities of daily living. Electronically signed by: Ramona Hennessy, PT, DPT, ATC Please sign and return to therapist. Thank you for your referral.
--- NOTE | 2021-03-06 13:53 | MHC.PT.DC ---
[facility] [place] Office [place] Office [place] Office [address] [place] [address] [phone] F: [phone] F: [phone] F: [phone] F: [phone] Physical Therapy Discharge Report Diagnosis: S/p R TKR Date of Surgery: 11/19/2020 Date of Evaluation: 12/17/20 Date of Discharge: 03/06/21 Treatments to Date: 11 Cancellations to Date: 6 No Shows to Date: 1 Discharge Status: Achieved Goals Improved Function Independent with HEP Discharge Summary: Pt has made good improvements since beginning skilled PT. She did have a recent fall which increased her pain however aside from this she has had min to no pain. She has met most goals at this time. She continues to rely on her cane and walker at times especially when out in the community primarily for safety. Reviewed importance of continued compliance with HEP and pt with good verbal understanding. At this time max benefits of PT have been provided and skilled pT is no longer indicated. Pt is in agreement with d/c today. Electronically signed by: Ramona Hennessy, PT, DPT, ATC Please sign and return to therapist. Thank you for your referral.
== END 2021-03-06 13:53 | disposition home or self-care (01) ==
LOC: HO.PT 11:00
PROVIDERS: Visit Provider Physician Assistant
DX: Z96.651 Presence of right artificial knee joint (principal)
CPT/HCPCS: 97110; 97140; 97161; 97530

== ENCOUNTER → 2021-03-11 09:26 | Outpatient (BNVA) | payer OTHER, SELFPAY | PROVIDERS: PCP Internal Medicine; Visit Provider Orthopaedic Surgery | DX: Z47.1 Aftercare following joint replacement surgery (principal); Z96.651 Presence of right artificial knee joint; M76.31 Iliotibial band syndrome, right leg | CPT/HCPCS: 99212 ==

== ENCOUNTER 2021-03-21 09:06 | Outpatient (REF) | payer OTHER, SELFPAY ==
--- NOTE | ~2021-03-21 | US_ITS ---
EXAMINATION: US ABDOMEN COMPLETE CLINICAL INFORMATION: Cirrhosis of liver.. COMPARISON: Abdominal ultrasound dated 07/25/2020 and 02/24/2019. TECHNIQUE: Real-time imaging of the abdominal viscera. FINDINGS: PANCREAS: The pancreatic body and visualized portions of pancreatic head and tail are unremarkable. The remainder of the pancreas is obscured by overlying bowel gas.. ABDOMINAL AORTA: The proximal, mid, and distal segments are normal in caliber. INFERIOR VENA CAVA: Visualized portions are normal. LIVER: Normal. The liver is normal in size. The liver contour is normal. There is diffuse increased liver parenchymal echogenicity, consistent with hepatic steatosis. No focal hepatic lesion. There is no intrahepatic biliary duct dilatation seen. GALLBLADDER: Normal. The gallbladder is physiologically distended without evidence of stones, sludge, polyps, wall thickening or pericholecystic fluid. COMMON BILE DUCT: Normal in caliber measuring 0.2 cm in diameter. RIGHT KIDNEY: Normal. No hydronephrosis. No renal calculi or focal suspicious parenchymal lesions. Previously seen mid right renal cyst is not visualized on today's study. Similarly, previously seen echogenic subcentimeter sized mass in the mid right kidney is not appreciated on today's exam. The kidney measures 10.2 cm in maximum dimension. LEFT KIDNEY: Normal. No hydronephrosis. No renal calculi or focal parenchymal lesions. The kidney measures 9.9 cm in maximum dimension. SPLEEN: Normal. The spleen measures 7.3 cm in maximum dimension. FREE FLUID: None. US/US abdomen complete IMPRESSION: 1. Echogenic liver, likely representing hepatic steatosis. No definite evidence of hepatic cirrhosis or focal hepatic mass. 2. Pancreatic head and tail incompletely visualized. Visualized portions of pancreas unremarkable. 3. Previously seen mid right renal cyst and mid right renal echogenic solid mass is not appreciated on today's study.
== END 2021-03-21 09:07 | disposition home or self-care (01) ==
LOC: HO.US 09:06
PROVIDERS: PCP Internal Medicine; Visit Provider Internal Medicine
DX: K74.60 Unspecified cirrhosis of liver (principal)
CPT/HCPCS: 76700

== ENCOUNTER → 2021-04-08 11:02 | Outpatient (BNVA) | payer OTHER, SELFPAY | PROVIDERS: PCP Internal Medicine; Visit Provider Orthopaedic Surgery | DX: Z47.1 Aftercare following joint replacement surgery (principal); Z96.651 Presence of right artificial knee joint; M76.31 Iliotibial band syndrome, right leg; M62.9 Disorder of muscle, unspecified | CPT/HCPCS: 99212 ==

== ENCOUNTER 2021-04-15 10:00 | Outpatient (RCR) | payer OTHER, SELFPAY ==
--- NOTE | 2021-04-02 11:42 | MHC.PT.EP ---
[facility] [place] Office [place] Office [place] Office [address] [place] [address] [phone] F: [phone] F: [phone] F: [phone] F: [phone] Physical Therapy Plan of Care Date of Evaluation: Date of Surgery: 11/19/20 Diagnosis: Presence of right artificial knee joint Iliotibial band syndrome, right leg Assessment: Pt is a 65yo F s/p R TKA with Dr. Solorzano on 11/19/20. She was seen for outpatient PT at this facility from 12/17/20-03/06/21. She had a fall 02/21/21 and has had increasing pain in her R knee since. Xrays negative for hardware abnormality. Pt presents today with current impairments in pain, decreased R knee ROM, decreased strength, decreased hamstring length, decreased quad length, impaired gait and balance. She has soft tissue restrictions throughout distal quad, ITB and hamstring. She is limited functionally by prolonged sitting, standing, and ambulation. She is a good candidate for skilled PT services in order to address current impairments to facilitate return to PLOF. Frequency and Duration: The patient will be seen 2x/week for 4 weeks Short Term Goals: Pt will be I with HEP to promote self management of symptoms Pt will improve R knee flexion by 5 degrees [facility] Goals: Pt will improve R quad strength to at least 4+/5 to assist with standing functional tasks Pt will safely ambulate 30 min with LRAD with pain < 4 / 10 Treatment Plan: Modalities to reduce pain, spasms and effusion. Manual therapy to restore motion and function. Therapeutic exercise to improve strength and flexibility. Neuromuscular re-education for posture and balance. Therapeutic activities to return to functional activities of daily living. Electronically signed by: Gala Serrato, PT, DPT Please sign and return to therapist. Thank you for your referral.
--- NOTE | 2021-05-21 14:22 | MHC.PT.DC ---
[facility] [place] Office [place] Office [place] Office [address] [place] [address] [phone] F: [phone] F: [phone] F: [phone] F: [phone] Physical Therapy Discharge Report Diagnosis: Presence of right artificial knee joint Iliotibial band syndrome, right leg Date of Surgery: 11/19/20 Date of Evaluation: 04/02/21 Date of Discharge: 05/21/21 Treatments to Date: 3 Cancellations to Date: 5 No Shows to Date: 1 Discharge Status: Patient Elected to Stop Discharge Summary: Pt was seen for PT from 04/02/21-04/15/21. Her last attended appointment was 04/15/21. Since her last attended appointment she has had 4 cancellations and 1 no-show. She did not reschedule any of her appointments. Pt is being D/C from skilled PT services at this time. Pt current level of function unknown at this time. Electronically signed by: Gala Serrato, PT, DPT Please sign and return to therapist. Thank you for your referral.
== END 2021-05-21 14:23 | disposition home or self-care (01) ==
LOC: HO.PT 10:00
PROVIDERS: Visit Provider Orthopaedic Surgery
DX: M76.31 Iliotibial band syndrome, right leg (principal); Z96.651 Presence of right artificial knee joint
CPT/HCPCS: 97110; 97162; 97530

== ENCOUNTER 2021-04-15 11:01 | Outpatient (REF) | payer OTHER, SELFPAY ==
--- NOTE | ~2021-04-15 | MM_ITS ---
EXAMINATION: MM SCREENING DIGITAL BREAST TOMOSYNTHESIS, BILATERAL CLINICAL INFORMATION: Screening. Asymptomatic. The lifetime risk of breast cancer based on the Tyrer-Cuzick Model is 4%. COMPARISON: Mammography: 04/10/2020, 04/05/2019, 03/30/2018 TECHNIQUE: Digital breast tomosynthesis is performed in both the craniocaudal and mediolateral oblique views along with computer-aided detection (CAD). Synthesized 2D images are generated from the tomosynthesis. Additional left MLO view is provided. FINDINGS: The breasts are almost entirely fatty (ACR BI-RADS breast composition Category a). Background stromal and fibroglandular densities are stable. Parenchymal pattern is similar to prior studies. There is no developing density or architectural abnormality. The axilla and skin contours are unremarkable. No significant changes. MM/MM tomosynthesis screening BI IMPRESSION: No mammographic evidence of malignancy. ASSESSMENT: BI-RADS 1: Negative RECOMMENDATION: Routine annual mammography screening. This patient's information was entered into a reminder system with a target due date for their next mammogram.
== END 2021-04-15 11:02 | disposition home or self-care (01) ==
LOC: HO.MAMMO 11:01
PROVIDERS: Visit Provider Internal Medicine
DX: Z12.31 Encounter for screening mammogram for malignant neoplasm of breast (principal)
CPT/HCPCS: 77063; 77067

== ENCOUNTER → 2021-05-06 09:26 | Outpatient (BNVA) | payer OTHER, SELFPAY | PROVIDERS: PCP Internal Medicine; Visit Provider Orthopaedic Surgery | DX: Z47.1 Aftercare following joint replacement surgery (principal); Z96.651 Presence of right artificial knee joint | CPT/HCPCS: 99212 ==

== ENCOUNTER → 2021-06-24 09:05 | Outpatient (BNVA) | payer OTHER, SELFPAY | PROVIDERS: PCP Internal Medicine; Visit Provider Nurse Practitioner Family | DX: T84.84XA Pain due to internal orthopedic prosthetic devices, implants and grafts, initial encounter (principal); M17.12 Unilateral primary osteoarthritis, left knee; Z96.651 Presence of right artificial knee joint | CPT/HCPCS: 99202 ==

== ENCOUNTER 2021-08-16 10:15 | Outpatient (REF) | payer OTHER, SELFPAY ==
--- NOTE | ~2021-08-16 | XR_ITS ---
EXAMINATION: XR KNEE STANDING, BILATERAL XR KNEE, RIGHT CLINICAL INFORMATION: Right knee pain. COMPARISON: None TECHNIQUE: AP bilateral knee standing. 2 views right knee. FINDINGS: AP BILATERAL KNEE STANDING: There is a total right knee prosthesis with prosthetic components in satisfactory alignment. There is moderate loss of left knee medial compartment joint space with periarticular spurring. No loose bodies or soft tissue swelling seen. RIGHT KNEE: There is a total right knee prosthesis with mild suprapatellar joint effusion and mild anterior soft tissue swelling. There is no periprosthetic loosening or fracture. No loose body seen. XR/XR knee RT 2V IMPRESSION: Total right knee prosthesis without any periprosthetic fracture or loosening. There is, however, mild joint effusion and moderate anterior knee soft tissue swelling. Moderate degenerative changes medial compartment with periarticular spurring left knee.
--- NOTE | ~2021-08-16 | XR_ITS ---
EXAMINATION: XR KNEE STANDING, BILATERAL XR KNEE, RIGHT CLINICAL INFORMATION: Right knee pain. COMPARISON: None TECHNIQUE: AP bilateral knee standing. 2 views right knee. FINDINGS: AP BILATERAL KNEE STANDING: There is a total right knee prosthesis with prosthetic components in satisfactory alignment. There is moderate loss of left knee medial compartment joint space with periarticular spurring. No loose bodies or soft tissue swelling seen. RIGHT KNEE: There is a total right knee prosthesis with mild suprapatellar joint effusion and mild anterior soft tissue swelling. There is no periprosthetic loosening or fracture. No loose body seen. XR/XR knee standing BI IMPRESSION: Total right knee prosthesis without any periprosthetic fracture or loosening. There is, however, mild joint effusion and moderate anterior knee soft tissue swelling. Moderate degenerative changes medial compartment with periarticular spurring left knee.
[2021-08-16 12:29] LABS: Erythrocyte Sedimentation Rate 31 MM/HR (0-20)
[2021-08-16 13:04] LABS: C Reactive Protein 0.74 mg/dL (< or = 0.50)
== END 2021-08-16 10:16 | disposition home or self-care (01) ==
LOC: HO.HOSX 10:15
PROVIDERS: PCP Internal Medicine; Visit Provider Orthopaedic Surgery
DX: Z96.651 Presence of right artificial knee joint (principal)
CPT/HCPCS: 36415; 73560; 73565; 85652; 86140; 99212

== ENCOUNTER → 2021-08-22 15:05 | Outpatient (BNVA) | payer OTHER, SELFPAY | PROVIDERS: PCP Internal Medicine; Visit Provider Orthopaedic Surgery | DX: T84.84XA Pain due to internal orthopedic prosthetic devices, implants and grafts, initial encounter (principal); Z96.651 Presence of right artificial knee joint | CPT/HCPCS: 20610; 99212 ==

== ENCOUNTER → 2021-09-06 09:56 | Outpatient (BNVA) | payer OTHER, SELFPAY | PROVIDERS: PCP Internal Medicine; Visit Provider Orthopaedic Surgery | DX: T84.84XA Pain due to internal orthopedic prosthetic devices, implants and grafts, initial encounter (principal); Z96.651 Presence of right artificial knee joint | CPT/HCPCS: 99212 ==

== ENCOUNTER 2021-09-10 06:33 | Outpatient (REF) | payer OTHER, SELFPAY | END 2021-09-10 06:34 | disposition home or self-care (01) | LOC: HO.RADIR 06:33 | PROVIDERS: Visit Provider Anesthesiology | DX: M25.561 Pain in right knee (principal); Z53.9 Procedure and treatment not carried out, unspecified reason ==

== ENCOUNTER → 2021-09-18 10:30 | Outpatient (BNVA) | payer OTHER, SELFPAY | PROVIDERS: PCP Internal Medicine; Referring Provider Internal Medicine; Visit Provider Internal Medicine Cardiovascular Disease | DX: I45.10 Unspecified right bundle-branch block (principal); R07.9 Chest pain, unspecified | CPT/HCPCS: 93005; 99212 ==

== ENCOUNTER 2021-09-24 06:09 | Outpatient (REF) | payer OTHER, SELFPAY ==
--- NOTE | ~2021-09-24 | FL_ITS ---
EXAMINATION: Intraoperative fluoroscopy CLINICAL INFORMATION: Pain COMPARISON: Right knee x-rays 08/16/2021 TECHNIQUE: Intraoperative fluoroscopy was provided for use by Dr. Davis. A total of 2 images were saved to PACS. A radiologist was not present during imaging. Today's dictation is only for administrative purposes to document intraoperative fluoroscopic usage. TOTAL FLUOROSCOPIC TIME: 0.1 minutes FL/FL guidance in treatment room FINDINGS~\^^ Intraoperative fluoroscopy provided for use by Dr. Davis. Please see operative note for detailed findings.
[2021-09-24 13:58] LABS: Alanine Aminotransferase 22 U/L (0-31); Alkaline Phosphatase 89 U/L (39-117); Aspartate Amino Transferase 20 U/L (5-31); Bilirubin Direct 0.2 mg/dL (0.0-0.5); Bilirubin Total 0.4 mg/dL (0.0-1.0); Total Protein 6.9 g/dL (6.5-8.0)
[2021-09-27 13:07] LABS: Alpha Fetoprotein 1.5 ng/mL
== END 2021-09-24 06:10 | disposition home or self-care (01) ==
LOC: HO.RADIR 06:09
PROVIDERS: Absent Provider Internal Medicine; Visit Provider Anesthesiology
DX: K74.69 Other cirrhosis of liver (principal); M25.561 Pain in right knee; K76.0 Fatty (change of) liver, not elsewhere classified; G89.4 Chronic pain syndrome; Z86.19 Personal history of other infectious and parasitic diseases
CPT/HCPCS: 36415; 64454; 80076; 82105; J0690

== ENCOUNTER 2021-09-26 13:48 | Emergency (ER) | payer OTHER, SELFPAY ==
[2021-09-26 13:52] VITALS: BP 112/79; PULSE 75; RESP 18; TEMP 36.7; O2SAT 97
--- NOTE | 2021-09-26 16:10 | ED.GENADULT ---
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 Patient states that she just had her first cortisone shot ever into it, 2 days ago, and now her knee hurts worse. Patient denies any dizziness, lightheadedness, abdominal pain, nausea, vomiting, fever, chills, blurry vision, double vision, loss of vision, chest pain, difficulty breathing, shortness of breath, back pain, night sweats, pain with urination, increased urinary frequency, increased urinary urgency, blood in her urine or stool, syncope or a near syncopal episode, recent trauma or falls, bowel incontinence, bladder incontinence, bowel retention, bladder retention, or any other complaints at this time. Onset (ago): day(s) (2) Location: right and lower extremity Radiation: non-radiation Severity: mild Severity scale (1-10): 2 Quality: dull Relieving factors: none Exacerbating factors: none Associated symptoms: denies other symptoms Treatments prior to arrival: none Related Data Home Medications Medication Instructions Recorded Confirmed albuterol sulfate 90 mcg/actuation 90 mcg inhalation Q4-6H PRN 03/21/20 09/18/21 aerosol inhaler Wheezing atorvastatin 20 mg tablet 20 mg PO DAILY 03/21/20 09/18/21 clonazepam 0.5 mg tablet 0.5 mg PO DAILY PRN Anxiety 03/21/20 09/18/21 omeprazole 20 mg capsule,delayed 20 mg PO QAM 03/21/20 09/18/21 release tiotropium bromide 1.25 2 puff inhalation DAILY 03/21/20 09/18/21 mcg/actuation mist for inhalation amlodipine 2.5 mg tablet 2.5 mg PO DAILY 04/03/20 09/18/21 fluticasone propionate 50 50 mcg intranasal BID 04/03/20 09/18/21 mcg/actuation nasal spray,suspension lisinopril 10 1 tab PO DAILY 04/03/20 09/18/21 mg-hydrochlorothiazide 12.5 mg tablet metformin 500 mg tablet 500 mg PO QAM 04/03/20 09/18/21 montelukast 10 mg tablet 10 mg PO DAILY 04/03/20 09/18/21 ursodiol 250 mg tablet 750 mg PO BID 04/03/20 09/18/21 fluticasone propionate 115 2 puff inhalation BID 08/21/20 09/18/21 mcg-salmeterol 21 mcg/actuation HFA inhaler vitamin E (dl, acetate) 180 mg 180 mg PO DAILY 11/22/20 09/18/21 (400 unit) capsule trazodone 100 mg tablet 200 mg PO BEDTIME 01/04/21 09/18/21 darifenacin 15 mg tablet,extended 15 mg PO QAM 06/24/21 09/18/21 release 24 hr hydrocodone 5 mg-acetaminophen 325 1 tab PO Q8H PRN pain 06/24/21 09/18/21 mg tablet naloxone 4 mg/actuation nasal 0 spray intranasal 06/24/21 09/18/21 spray (Narcan) trazodone 150 mg tablet 300 mg PO BEDTIME 06/24/21 09/18/21 Previous Rx's Medication Instructions Recorded docusate sodium 100 mg capsule 100 mg PO BID 14 days #28 caps 11/24/20 calcium carbonate 600 mg-vitamin 1 tab PO QAM #30 tabs 06/03/21 D3 10 mcg (400 unit) tablet celecoxib 200 mg capsule 200 mg PO BID 30 days #60 caps 06/24/21 lidocaine 5 % topical patch 1 patch topical DAILY pain 30 days 06/24/21 #30 ea Allergies Allergy/AdvReac Type Severity Reaction Status Date / Time No Known Allergies Allergy Verified 09/24/21 14:43 [No Known Allergies*] Review of Systems Constitutional: Constitutional: Reports no additional constitutional complaints, Denies chills, Denies fever(s) and Denies night sweats Eyes: Eyes: Reports no additional eye complaints, Denies blurry vision, Denies change in vision, Denies diplopia, Denies eye discharge, Denies loss of vision and Denies eye pain ENT: Denies dizziness Cardiovascular: Cardiovascular: Reports no additional cardiovascular complaints, Denies chest pain, Denies lightheadedness, Denies Loss of Consciousness and Denies dyspnea Respiratory: Respiratory: Reports no additional respiratory complaints and Denies dyspnea Gastrointestinal: Gastrointestinal: Reports no additional gastrointestinal complaints, Denies abdominal pain, Denies melena, Denies hematochezia, Denies change in bowel habits and Denies change in stool character Genitourinary: Genitourinary: Denies hematuria, Denies urinary frequency, Denies dysuria, Denies urinary incontinence, Denies urinary hesitancy and Denies urinary urgency Musculoskeletal: Musculoskeletal: Reports no additional musculoskeletal complaints, Denies numbness and Denies tingling Comments: right knee pain Neurologic: Denies dizziness, Denies loss of vision, Denies numbness and Denies tingling Psychiatric: Psychiatric: Reports no additional psychiatric complaints Endocrine: Endocrine: Reports no additional endocrine complaints Hematologic/Lymphatic: Hematologic/Lymphatic: Reports no additional hematologic/lymphatic complaints Allergic/Immunologic: Allergic/Immunologic: Reports no additional allergic/immunologic complaints PMFSH Past Medical History Attestation statement: The following information was validated with the patient. Source: old records reviewed Medical History Anxiety Asthma Bilateral primary osteoarthritis of knee Chronic kidney disease COVID-19 vaccine series completed Depression Elevated cholesterol Essential hypertension History of renal calculi Hx of hepatitis C Lumbar facet arthropathy JUSTIN (obstructive sleep apnea) Other chronic pain Other intervertebral disc displacement, lumbar region Renal stones Spondylosis of lumbar spine Type 2 diabetes mellitus with complication, without long-term current use of insulin Vitamin D deficiency Surgical History H/O abdominal hysterectomy H/O tubal ligation History of colonoscopy History of esophagogastroduodenoscopy (EGD) History of laryngoscopy History of total right knee replacement (TKR) Hx of arthroscopy of left knee Hx of dilation and curettage Hx of lithotripsy Hx of umbilical hernia repair S/P repair of ventral hernia Family History Family History Father Diabetes mellitus HTN (hypertension) Mother No problems noted. 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 Physical Exam ED Vital Signs: Vital Signs - 24 hr 09/26/21 13:52 Temperature 98.1 F Pulse Rate 75 Respiratory Rate 18 Blood Pressure 112/79 Pulse Oximetry 97 Oxygen Delivery Method Room Air BMI result Body Mass Index 0.0 Const General: cooperative, no acute distress, alert and awake Nutritional Appearance: well nourished Orientation/consciousness: patient oriented x3 Limitations: no limitations HENMT Head: Yes normal to inspection and Yes atraumatic Ears: hearing grossly normal bilaterally and external ears normal General nose exam: Normal external nose present, no nasal discharge noted and no epistaxis Face and sinus: Yes normal facial exam, No abrasion and No laceration Mouth: Normal oral and palatal mucosa present, no drooling and no muffled voice Eyes General: appearance normal, both eyes and all related structures Periorbital: periorbital findings normal Eyelids: Yes eyelids normal Conjunctivae: conjunctivae normal Pupils: Equal, round and reactive pupils present EOM: EOMs intact bilaterally Neck Neck: Yes normal visual inspection, Yes full ROM and Yes no lymphadenopathy Chest Chest palpation & inspection: normal inspection of the chest Resp Effort & Inspection: normal respiratory effort and able to speak in complete sentences Auscultation: clear to auscultation bilaterally Cardio Rate: regular rate Rhythm: regular rhythm GI Inspection: Yes normal to inspection Neuro General: patient oriented x3 and moves all extremities Cranial nerves: Yes Equal, round and reactive pupils present Cognition (Neuro): normal cognition Motor exam (neuro): 5/5 motor strength present throughout Sensory Exam: Normal double simultaneous stimulation for sensation Coordination: [id number] test normal Extrem General: Yes normal to inspection, Yes full ROM and Yes capillary refill normal Psych Appearance: grossly normal Mental Status: mental status grossly normal Affect: normal affect Attitude: cooperative Thought process: Normal thought process present Thought content: Normal thought content present Insight: Good insight present (Psych) Medical Decision Making MDM Narrative Medical decision making narrative: Patient is a 66 year old female presenting to the emergency department today with right knee pain. Patient's physical exam was unremarkable. I explained my physical exam findings to the patient. I answered all questions asked by the patient. I stressed the importance of the patient taking her medication as prescribed. I explained to the patient that there is no current concern of a septic joint. I stressed the importance of the patient following up with her primary care provider and her orthopedic provider. I stressed the importance of the patient returning to the emergency department immediately if her symptoms were to worsen or if she were to develop any dizziness, shortness of breath, difficulty breathing, chest pain, blurry vision, loss of vision, nausea, vomiting, abdominal pain, fever, chills, back pain, or any other complaints. Patient verbalized agreement and understanding with this treatment plan and discharge. Differential Diagnosis Differential Diagnosis: knee pain Medical Records Medical records reviewed: Yes I reviewed the patient's medical records. Discharge Plan Discharge Clinical Impression: Right knee pain Patient Disposition: Home, Self-Care Instructions: Knee Pain (ED) Additional Instructions: Follow up with your primary care provider and orthopedic provider. Return to the emergency department immediately if your symptoms worsen or if you develop any dizziness, shortness of breath, difficulty breathing, chest pain, blurry vision, loss of vision, nausea, vomiting, abdominal pain, fever, chills, back pain, or any other complaints. Prescriptions: No Action calcium carbonate-vitamin D3 600 mg-10 mcg (400 unit) tablet 1 tab PO QAM Qty: 30 5RF vitamin E (dl, acetate) 180 mg (400 unit) capsule 180 mg PO DAILY docusate sodium 100 mg Capsule 100 mg PO BID 14 Days Qty: 28 0RF lisinopril-hydrochlorothiazide 10-12.5 mg tablet 1 tab PO DAILY amlodipine 2.5 mg tablet 2.5 mg PO DAILY metformin 500 mg tablet 500 mg PO QAM fluticasone propionate 50 mcg/actuation spray,suspension 50 mcg intranasal BID montelukast 10 mg tablet 10 mg PO DAILY ursodiol 250 mg tablet 750 mg PO BID albuterol sulfate 90 mcg/actuation HFA aerosol inhaler 90 mcg inhalation Q4-6H PRN (Reason: Wheezing) clonazepam 0.5 mg tablet 0.5 mg PO DAILY PRN (Reason: Anxiety) atorvastatin 20 mg tablet 20 mg PO DAILY tiotropium bromide 1.25 mcg/actuation mist 2 puff inhalation DAILY omeprazole 20 mg capsule,delayed release(DR/EC) 20 mg PO QAM fluticasone propion-salmeterol 115-21 mcg/actuation HFA aerosol inhaler 2 puff inhalation BID trazodone 100 mg tablet 200 mg PO BEDTIME naloxone [Narcan] 4 mg/actuation spray,non-aerosol 0 spray intranasal darifenacin 15 mg tablet extended release 24 hr 15 mg PO QAM hydrocodone-acetaminophen 5-325 mg tablet 1 tab PO Q8H PRN (Reason: pain) trazodone 150 mg tablet 300 mg PO BEDTIME celecoxib 200 mg capsule 200 mg PO BID 30 Days Qty: 60 0RF lidocaine 5 % adhesive patch,medicated 1 patch topical DAILY 30 Days Qty: 30 0RF Rx Instructions: leave on most painful area for up to 12 hrs Referrals: [facility] [place], [place] Family Medicine [Provider Group] (Call to establish and follow up with a primary care provider. If you already have a primary care provider, follow up with them. ) [facility] [place] [place] Primary [facility] [Provider Group] (Call to establish and follow up with a primary care provider. If you already have a primary care provider, follow up with them. ) [facility] [place] [place] Primary Care[facility] [Provider Group] (Call to establish and follow up with a primary care provider. If you already have a primary care provider, follow up with them. ) [facility] [place] [facility] [Provider Group] (Call to follow up with an orthopedic provider. ) Interventions: ED Discharge Assessment Last Done: 09/26/21 16:31 Discharge Date/Time: 09/26/21 16:35 Print Language: Turkmen
== END 2021-09-26 16:35 | disposition home or self-care (01) ==
PROVIDERS: Emergency Provider Emergency Medicine
DX: M25.561 Pain in right knee (principal); M25.562 Pain in left knee; F17.210 Nicotine dependence, cigarettes, uncomplicated; Z71.6 Tobacco abuse counseling; F14.10 Cocaine abuse, uncomplicated; Z79.899 Other long term (current) drug therapy
CPT/HCPCS: 99283

== ENCOUNTER → 2021-10-01 12:49 | Outpatient (BNVA) | payer OTHER, SELFPAY | PROVIDERS: PCP Internal Medicine; Visit Provider Nurse Practitioner Family | DX: G89.4 Chronic pain syndrome (principal); M25.561 Pain in right knee; M17.11 Unilateral primary osteoarthritis, right knee; M17.12 Unilateral primary osteoarthritis, left knee; Z96.651 Presence of right artificial knee joint | CPT/HCPCS: 99212 ==

== ENCOUNTER → 2021-10-14 08:09 | Outpatient (REF) | payer OTHER, SELFPAY ==
--- NOTE | ~2021-10-14 | NM_ITS ---
Myocardial perfusion study Indication: Chest pain to evaluate for myocardial ischemia Technique: The patient was brought in for a Lexiscan perfusion study on 10/14/2021. Patient performed low-level exercise and was injected 0.4 mg of Lexiscan intravenously. Within a minute of injection, 25 mCi of sestamibi was given intravenously. Images were obtained using the SPECT gamma camera interlaced with the gating device. Images were obtained in supine position. Resting perfusion study was performed on 10/16/2021. Patient was administered 25 mCi of sestamibi intravenously at rest. Images were then obtained in supine position. Images obtained with and without CT attenuation. Total DLP 133 mGy-cm. Images were processed with the software and compared side to side in short axis, horizontal long axis and vertical long axis views. Findings: The stress perfusion study showed non attenuated images show mild thinning of lateral and apical wall of the LV myocardium. Remainder of the LV myocardium is normally perfused. Attenuated corrected images show mildly reduced uptake in the apex of the LV myocardium.. The gated study shows normal LV systolic function with calculated LVEF of 71%. LV cavity is normal in size. The gated study shows normal systolic wall thickening and contraction of segments. Resting study shows no significant change in perfusion pattern to stress perfusion study. Gating at rest reveals normal systolic wall motion with ejection fraction at 70%. The findings are consistent with no clear reversible defect suggestive of ischemia. Likely normal myocardial perfusion. NM/NM arleth perf SPECT rest & str Impression: 1. Myocardial perfusion imaging study shows likely normal myocardial perfusion 2. Gated LVEF is 70% 3. Transient ischemic dilatation not present EKG is nondiagnostic for ischemia
--- NOTE | 2021-10-14 08:11 | CA_ITS ---
Acquisition Time: 2021-10-14 08:32:36 Total Exercise Time: 00:02:00 Test Indications: CP, RBBB Medications: SEE CHART Protocol: LEXISCAN Max HR: 105 BPM 67% of Pred: 156 BPM Max BP: 120/060 mmHG Max Work Load: 1.0 METS Pharmacological stress test with Lexiscan injection, while sitting and kicking her legs, without anginal symptoms, without arrythmia, with normotensive response to injection, with nondiagnostic EKG for ischemia. Nuclear images pending. Test reviewed with Dr Weinstein. Referred By: Caio Hagan Overread By: SUJIT TAVERAS
== END ==
LOC: HO.CARD 08:09
PROVIDERS: Visit Provider Internal Medicine Cardiovascular Disease
DX: R07.9 Chest pain, unspecified (principal)
CPT/HCPCS: 78452; 93017; A9500; J0280; J2785

== ENCOUNTER 2021-10-29 06:04 | Outpatient (REF) | payer OTHER, SELFPAY ==
--- NOTE | ~2021-10-29 | FL_ITS ---
EXAMINATION: XR FLUOROSCOPY WITH IMAGES CLINICAL INFORMATION: M25.561 - Pain in right knee COMPARISON: Radiographs right knee 08/16/2021 TECHNIQUE: Fluoroscopy performed by Dr. Lauro Sen. Fluoroscopy time: 0.4 minutes. Cumulative Dose: 3.93 mGy. DAP: 1.07 Gy-cm2. Images: 2. FINDINGS: There are spinal needles adjacent to the distal femoral shaft, medial and lateral sides, mid depth. There is a spinal needle adjacent to the proximal tibia on medial side mid depth. There is been prior total knee arthroplasty. Hardware intact. FL/FL guidance in treatment room IMPRESSION: Fluoroscopy for pain management procedures.
== END 2021-10-29 06:05 | disposition home or self-care (01) ==
LOC: HO.RADIR 06:04
PROVIDERS: Visit Provider Anesthesiology
DX: M25.561 Pain in right knee (principal)
CPT/HCPCS: 64454; J2795

== ENCOUNTER → 2021-10-29 07:15 | Outpatient (REF) | payer OTHER, SELFPAY ==
--- NOTE | 2021-10-29 07:19 | CA_ITS ---
Transthoracic Echocardiogram Patient (Last, First, Middle): Ludivina Hussein N Gender: Female Date of : 1955 Age: 66 Procedure Date: 10/29/2021 Procedure Type: Transthoracic Echocardiogram Location: OP Height: 147.32 cm Weight: 81.65 kg BSA: 1.74 m2 Heart Rate: 66 bpm BP: 100 / 68 mmHg Sanitary Chemist: SB Referring MD: Caio Hagan MD Symptoms: I45.10 - Unspecified right bundle-branch block Study Quality: Adequate ECG Rhythm: Sinus Conclusions: - The left ventricular systolic function is normal. The visually estimated ejection fraction is between 55-60%. - There is mild mitral annular calcification. Findings Left Ventricle Normal left ventricular cavity size. The left ventricular systolic function is normal. The visually estimated ejection fraction is between 55-60%. There is no evidence of regional wall motion abnormalities. E/E prime ratio is between 8 and 15 consistent with indeterminate filling pressures. Evidence suggests grade I (mild) diastolic dysfunction. There is mild septal asymmetric hypertrophy. LV peak GLS -17.8%. Right Ventricle Normal right ventricular cavity size and systolic function. Atria Both atria are normal in size. Aortic Valve There is a normal trileaflet aortic valve. There is no aortic valve stenosis. There is no aortic valve regurgitation. Mitral Valve There is mild mitral annular calcification. There is no mitral valve regurgitation. There is no mitral valve stenosis. Pulmonic Valve The pulmonic valve is likely normal. Tricuspid Valve Normal tricuspid valve structure. There is trace tricuspid valve regurgitation. The pulmonary artery systolic pressure is normal. Great Vessels The aortic annulus, sinuses of valsalva, and asc aorta are normal in size. Venous The inferior vena cava is normal in size and collapses greater than 50% with inspiration. Pericardium/Pleural There is no evidence of pericardial effusion. Prior Study Comparison No significant change compared to prior study dated: 06/09/2018. Measurements 2D Linear Measurements IVSd: 1.12 0.6-0.9/0.6-1.0 cm LVIDd: 5.15 3.9-5.3/4.2-5.9 cm LVIDd Index: 2.96 2.4-3.2/2.2-3.1 cm/m2 LVIDs: 2.96 2.0-3.6 cm LVPWd: 0.84 0.7-1.1 cm LA Diam: 4.10 2.7-3.8/3.0-4.0 cm LAIDs Index: 2.36 1.5-2.3 cm/m2 LV Mass: 230.96 67-162/88-224 g LV Mass Index: 132.74 43-95/49-115 g/m2 LVOT Diam: 2.10 3.0+(-)1.3 cm 2D Systolic Function EF 4C: 57.10 >55% Mitral Valve MV Pk E: 0.72 MV PK A: 0.61 MV Decel Time: 210.00 E/A: 1.20 E'Lateral: 8.05 E'Medial: 4.68 E/E' Med: 15.40 E/E' Lat: 9.00 PHT: 61.00 MVA PHT: 3.61 Decel Preston: 3.45 Aortic Valve AoV Pk Serafin: 1.04 AoV Mn Serafin: 0.78 AoV VTI: 0.24 AoV Pk Grad: 4.00 Aov Mn Grad: 3.00 KONSTANTIN Cont.VTI: 3.01 LVOT LVOT Pk Serafin: 0.96 LVOT Mn Serafin: 0.65 LVOT VTI: 0.21 LVOT Pk Grad: 4.00 LVOT Mn Grad: 2.00 LVOT Diam: 2.10 LVOT Area: 3.46 Diastolic Function MV Pk E: 0.72 MV Pk A: 0.61 E/A: 1.20 E'Medial: 4.68 E/E' Med: 15.40 E' Laterial: 8.05 E/E' Lat: 9.00 Right Ventricle TAPSE (mm): 20.30 TVS' Serafin: 9.68 Tricuspid Valve TR Pk Serafin: 2.43 TR Pk Grad: 24.00 RA Press: 3.00 RVSP: 27.00 Great Vessels Aorta Sinus of Valsalva: 3.10 2.0-3.5 cm Ao Asc: 3.10 2.1-3.4 cm Updated in Other Vendor System with Status of Final Fabricio Weinstein MD electronically signed on 10/29/2021 11:52:26 AM with status of Final
== END ==
LOC: HO.CARD 07:15
PROVIDERS: Visit Provider Internal Medicine Cardiovascular Disease
DX: I45.10 Unspecified right bundle-branch block (principal); R94.31 Abnormal electrocardiogram [ECG] [EKG]; G89.4 Chronic pain syndrome; M25.561 Pain in right knee; M17.12 Unilateral primary osteoarthritis, left knee; Z96.651 Presence of right artificial knee joint
CPT/HCPCS: 64454; 93306; J0690

== ENCOUNTER → 2021-11-01 11:12 | Outpatient (BNVA) | payer OTHER, SELFPAY | PROVIDERS: PCP Internal Medicine; Visit Provider Nurse Practitioner Family | DX: G89.4 Chronic pain syndrome (principal); M17.12 Unilateral primary osteoarthritis, left knee; T84.84XA Pain due to internal orthopedic prosthetic devices, implants and grafts, initial encounter; Z96.651 Presence of right artificial knee joint | CPT/HCPCS: 99212 ==

== ENCOUNTER 2021-11-08 11:51 | Emergency (ER) | payer OTHER, SELFPAY ==
[2021-11-08] VITALS (7 sets, daily range): BP systolic 97–124; BP diastolic 52–66; PULSE 62–88; RESP 16–22; TEMP 36.5; O2SAT 95–99; BMI 39.3
--- NOTE | ~2021-11-08 | CT_ITS ---
EXAMINATION: CT ANGIOGRAM OF THE CHEST WITH AND WITHOUT CONTRAST (CT PULMONARY ANGIOGRAM FOR PE) CLINICAL INFORMATION: Reason for Exam elevated dimer, SOB COMPARISON: March 22, 2017 TECHNIQUE: Prior to contrast administration, noncontrast localization images were obtained. Subsequently, multidetector volumetric imaging was performed from the thoracic inlet to below the diaphragms following the administration of 65 mL Omnipaque 350 intravenous contrast. No contrast reaction reported Sagittal, coronal, and MIP oblique sagittal reformatted images were obtained on the CT workstation, uploaded to PACS, and reviewed. This CT examination was performed using dose optimization techniques as appropriate, variously including the following: *Automated exposure control *Adjustment of mA and/or kV according to patient size (this includes techniques or standardized protocols for targeted exams where dose is matched to indication/reason for exam; i.e. extremities or head) *Use of iterative reconstruction technique Total exam dose-length product 352 mGy-cm FINDINGS: There is some motion artifact present. QUALITY OF STUDY/CONTRAST BOLUS: Satisfactory. PULMONARY ARTERIES: No central or segmental pulmonary emboli. THORACIC AORTA: No thoracic aortic aneurysm. No thoracic aortic dissection. No significant aortic plaque is appreciated. LUNG: There are regions of groundglass opacity present most prominent at the lung bases bilaterally consistent with dependent atelectasis. Central airways are patent. No significant bronchial wall thickening. No evidence of bronchiectasis. There is a 6 x 3 mm region of density about the minor fissure representing an intrafissural lymph node. No suspicious lung nodule identified. PLEURA: No pleural effusion or pneumothorax. MEDIASTINUM: Heart normal size. No pericardial effusion. No mediastinal or hilar lymphadenopathy. No thyroid abnormality appreciated. No evidence of septal bowing or right heart strain. CHEST WALL/AXILLA: No axillary or internal mammary lymphadenopathy. OSSEOUS STRUCTURES: No acute or suspicious osseous abnormality. UPPER ABDOMEN: Unremarkable. No reflux of contrast into the hepatic veins to suggest elevated right heart pressures. Calcified hepatic granuloma. CT/CT angio chest PE protocol IMPRESSION: No evidence of acute pulmonary artery embolus. No evidence of thoracic aortic aneurysm or dissection. No evidence to suggest right heart failure. VTE: negative
--- NOTE | ~2021-11-08 | XR_ITS ---
EXAMINATION: XR CHEST CLINICAL INFORMATION: Dizziness COMPARISON: None TECHNIQUE: 2 views of the chest were obtained. FINDINGS: No significant abnormality is noted involving the heart, lungs, mediastinum, bony thorax or soft tissues. XR/XR chest 2V IMPRESSION: Unremarkable chest examination.
--- NOTE | ~2021-11-08 | CT_ITS ---
EXAMINATION: CT HEAD WITHOUT CONTRAST CLINICAL INFORMATION: Dizziness. COMPARISON: Noncontrast CT head 10/04/2011.. TECHNIQUE: Contiguous axial imaging was performed from the skull base to vertex without intravenous administration of contrast. Additional 2-D coronal and sagittal reformatted images are generated on the CT workstation and uploaded to PACS. This CT examination was performed using dose optimization techniques as appropriate, variously including the following: *Automated exposure control *Adjustment of mA and/or kV according to patient size (this includes techniques or standardized protocols for targeted exams where dose is matched to indication/reason for exam; i.e. extremities or head) *Use of iterative reconstruction technique DLP: 646 mGy-cm FINDINGS: There is no intracranial hemorrhage, hematoma, or extra-axial fluid collection. The ventricles are normal in size. There is no hydrocephalus, edema, or mass effect. The chong-white matter differentiation appears well preserved . Probable chronic empty sella, similar to prior exam. There is no visible acute territorial infarct or mass lesion. The calvarium appears intact. There is no pneumocephalus or orbital emphysema. No fluid levels sinuses, middle ears, mastoids. Mild mucosal thickening maxillary, ethmoid, and sphenoid sinuses. CT/CT head/brain wo con IMPRESSION: No acute intracranial abnormality.
--- NOTE | 2021-11-08 12:38 | ED.GENADULT ---
HPI - General Adult General Chief complaint: General Medical Stated complaint: HYPOTENSION Time Seen by Provider: 11/08/21 12:01 Source: patient, EMS and historical interpreter Mode of arrival: EMS Limitations: language barrier History of Present Illness HPI narrative: Patient is a 66 year old female presenting to the emergency department today being COVID-19 positive with concern of low blood pressure. Patient states that she was in her primary care providers office and diagnosed with COVID-19 but her PCPs office noticed that her blood pressure was somewhat low and so they recommended she come to the emergency department. Patient denies any dizziness, lightheadedness, abdominal pain, nausea, vomiting, fever, chills, blurry vision, double vision, loss of vision, chest pain, difficulty breathing, shortness of breath, back pain, night sweats, pain with urination, increased urinary frequency, increased urinary urgency, blood in her urine or stool, syncope or a near syncopal episode, recent trauma or falls, bowel incontinence, bladder incontinence, bowel retention, bladder retention, or any other complaints at this time. Severity: mild Severity scale (1-10): 2 Relieving factors: none Exacerbating factors: none Associated symptoms: denies other symptoms Treatments prior to arrival: none Related Data Home Medications Medication Instructions Recorded Confirmed albuterol sulfate 90 mcg/actuation 90 mcg inhalation Q4-6H PRN 03/21/20 09/18/21 aerosol inhaler Wheezing atorvastatin 20 mg tablet 20 mg PO DAILY 03/21/20 09/18/21 clonazepam 0.5 mg tablet 0.5 mg PO DAILY PRN Anxiety 03/21/20 09/18/21 omeprazole 20 mg capsule,delayed 20 mg PO QAM 03/21/20 09/18/21 release tiotropium bromide 1.25 2 puff inhalation DAILY 03/21/20 09/18/21 mcg/actuation mist for inhalation amlodipine 2.5 mg tablet 2.5 mg PO DAILY 04/03/20 09/18/21 fluticasone propionate 50 50 mcg intranasal BID 04/03/20 09/18/21 mcg/actuation nasal spray,suspension lisinopril 10 1 tab PO DAILY 04/03/20 09/18/21 mg-hydrochlorothiazide 12.5 mg tablet metformin 500 mg tablet 500 mg PO QAM 04/03/20 09/18/21 montelukast 10 mg tablet 10 mg PO DAILY 04/03/20 09/18/21 ursodiol 250 mg tablet 750 mg PO BID 04/03/20 09/18/21 fluticasone propionate 115 2 puff inhalation BID 08/21/20 09/18/21 mcg-salmeterol 21 mcg/actuation HFA inhaler vitamin E (dl, acetate) 180 mg 180 mg PO DAILY 11/22/20 09/18/21 (400 unit) capsule trazodone 100 mg tablet 200 mg PO BEDTIME 01/04/21 09/18/21 darifenacin 15 mg tablet,extended 15 mg PO QAM 06/24/21 09/18/21 release 24 hr hydrocodone 5 mg-acetaminophen 325 1 tab PO Q8H PRN pain 06/24/21 09/18/21 mg tablet naloxone 4 mg/actuation nasal 0 spray intranasal 06/24/21 09/18/21 spray (Narcan) trazodone 150 mg tablet 300 mg PO BEDTIME 06/24/21 09/18/21 albuterol sulfate 2.5 mg/3 mL mg inhalation 10/01/21 (0.083 %) solution for nebulization pseudoephedrine HCl 30 mg tablet 30 mg PO Q12H PRN 10/01/21 (Sudogest) conjugated estrogens 0.625 mg/gram 0 mg vaginal 11/01/21 vaginal cream (Premarin) Previous Rx's Medication Instructions Recorded docusate sodium 100 mg capsule 100 mg PO BID 14 days #28 caps 11/24/20 calcium carbonate 600 mg-vitamin 1 tab PO QAM #30 tabs 06/03/21 D3 10 mcg (400 unit) tablet celecoxib 200 mg capsule 200 mg PO BID 30 days #60 caps 06/24/21 lidocaine 5 % topical patch 1 patch topical DAILY pain 30 days 06/24/21 #30 ea Allergies Allergy/AdvReac Type Severity Reaction Status Date / Time No Known Allergies Allergy Verified 11/01/21 11:22 [No Known Allergies*] Review of Systems Constitutional: Constitutional: Reports no additional constitutional complaints, Denies chills, Denies fever(s) and Denies night sweats Eyes: Eyes: Reports no additional eye complaints, Denies blurry vision, Denies change in vision, Denies diplopia, Denies eye discharge, Denies loss of vision and Denies eye pain ENT: Denies dizziness and Reports sore throat Cardiovascular: Cardiovascular: Reports no additional cardiovascular complaints, Denies chest pain, Denies lightheadedness, Denies Loss of Consciousness and Denies dyspnea Respiratory: Respiratory: Reports no additional respiratory complaints and Denies dyspnea Gastrointestinal: Gastrointestinal: Reports no additional gastrointestinal complaints, Denies abdominal pain, Denies melena, Denies hematochezia, Denies change in bowel habits and Denies change in stool character Genitourinary: Genitourinary: Denies hematuria, Denies urinary frequency, Denies dysuria, Denies urinary incontinence, Denies urinary hesitancy and Denies urinary urgency Musculoskeletal: Musculoskeletal: Reports no additional musculoskeletal complaints, Denies numbness and Denies tingling Neurologic: Denies dizziness, Denies loss of vision, Denies numbness and Denies tingling Psychiatric: Psychiatric: Reports no additional psychiatric complaints Endocrine: Endocrine: Reports no additional endocrine complaints Hematologic/Lymphatic: Hematologic/Lymphatic: Reports no additional hematologic/lymphatic complaints Allergic/Immunologic: Allergic/Immunologic: Reports no additional allergic/immunologic complaints PMFSH Past Medical History Attestation statement: The following information was validated with the patient. Source: old records reviewed Medical History Anxiety Asthma Bilateral primary osteoarthritis of knee Chronic kidney disease COVID-19 vaccine series completed Depression Elevated cholesterol Essential hypertension History of renal calculi Hx of hepatitis C Lumbar facet arthropathy JUSTIN (obstructive sleep apnea) Other chronic pain Other intervertebral disc displacement, lumbar region Renal stones Spondylosis of lumbar spine Type 2 diabetes mellitus with complication, without long-term current use of insulin Vitamin D deficiency Surgical History H/O abdominal hysterectomy H/O tubal ligation History of colonoscopy History of esophagogastroduodenoscopy (EGD) History of laryngoscopy History of total right knee replacement (TKR) Hx of arthroscopy of left knee Hx of dilation and curettage Hx of lithotripsy Hx of umbilical hernia repair S/P repair of ventral hernia Family History Family History Father Diabetes mellitus HTN (hypertension) Mother No problems noted. 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 Housing: House Are you a primary health care technician to a significant other at home: No Do you presently have visiting nurse or other home services: Yes Alcohol intake: former Year quit: 1995 Patient Tobacco Use Status: Former Tobacco user Quit Date: 2000 Tobacco use type: Cigarette Years Smoked: 5+ Use of substances other than those prescribed or required for medical reasons: No Substance Use Type: Crack/Cocaine Advance Directives: No Advance Directives Information Provided: Yes service: No Current occupational status: retired 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 Physical Exam ED Vital Signs: Vital Signs - 24 hr 11/08/21 12:45 11/08/21 13:22 11/08/21 13:23 Temperature 97.7 F Pulse Rate 62 63 67 Respiratory Rate 16 Blood Pressure 123/62 99/52 L 114/65 Pulse Oximetry 99 Oxygen Delivery Method Room Air 11/08/21 13:26 11/08/21 14:44 11/08/21 17:25 Temperature Pulse Rate 72 73 88 Respiratory Rate 22 H 18 Blood Pressure 97/61 115/57 L 124/61 Pulse Oximetry 98 98 Oxygen Delivery Method Room Air Room Air BMI result Body Mass Index 39.3 Const General: cooperative, no acute distress, alert and awake Nutritional Appearance: well nourished Orientation/consciousness: patient oriented x3 Limitations: no limitations HENOR Head: Yes normal to inspection and Yes atraumatic Ears: hearing grossly normal bilaterally and external ears normal General nose exam: Normal external nose present, no nasal discharge noted and no epistaxis Face and sinus: Yes normal facial exam, No abrasion and No laceration Mouth: Normal oral and palatal mucosa present, no drooling and no muffled voice Throat: Yes posterior oropharynx normal and Yes uvula midline Eyes General: appearance normal, both eyes and all related structures Periorbital: periorbital findings normal Eyelids: Yes eyelids normal Conjunctivae: conjunctivae normal Pupils: Equal, round and reactive pupils present EOM: EOMs intact bilaterally Neck Neck: Yes normal visual inspection, Yes full ROM and Yes no lymphadenopathy Chest Chest palpation & inspection: normal inspection of the chest Resp Effort & Inspection: normal respiratory effort and able to speak in complete sentences Auscultation: clear to auscultation bilaterally Cardio Rate: regular rate Rhythm: regular rhythm GI Inspection: Yes normal to inspection Neuro General: patient oriented x3 and moves all extremities Cranial nerves: Yes Equal, round and reactive pupils present Cognition (Neuro): normal cognition Motor exam (neuro): 5/5 motor strength present throughout Sensory Exam: Normal double simultaneous stimulation for sensation Coordination: [id number] test normal Extrem General: Yes normal to inspection, Yes full ROM and Yes capillary refill normal Psych Appearance: grossly normal Mental Status: mental status grossly normal Affect: normal affect Attitude: cooperative Thought process: Normal thought process present Thought content: Normal thought content present Insight: Good insight present (Psych) Medical Decision Making MDM Narrative Medical decision making narrative: Patient is a 66 year old female presenting to the emergency department today with COVID-19. Patient's physical exam was unremarkable. Patient's blood work showed a slightly elevated d dimer but was otherwise unremarkable. Patient's COVID-19 test was positive. Patient's urine showed no acute process. Patient's EKG was unremarkable. Patient's CT PE and head CT showed no acute process. I explained my physical exam findings as well as all test results to the patient. I answered all questions asked by the patient. Patient received IV fluids which she stated helped her symptoms significantly. I stressed the importance of the patient taking her medication as prescribed. I stressed the importance of the patient following up with her primary care provider. I stressed the importance of the patient returning to the emergency department immediately if her symptoms were to worsen or if she were to develop any dizziness, shortness of breath, difficulty breathing, chest pain, blurry vision, loss of vision, nausea, vomiting, abdominal pain, fever, chills, back pain, or any other complaints. Patient verbalized agreement and understanding with this treatment plan and discharge. Differential Diagnosis Differential Diagnosis: COVID-19 Medical Records Medical records reviewed: Yes I reviewed the patient's medical records. Lab Data Lab results reviewed: Yes I reviewed the patient's lab results. Result diagrams: 11/08/21 13:16 11/08/21 13:16 Labs: Lab Results 11/08/21 11/08/21 11/08/21 Range/Units 13:16 13:16 13:16 WBC 5.6 (4.8-10.8) X10*3/uL RBC 4.43 (4.20-5.50) X10*6/uL Hgb 13.3 (12.0-16.0) g/dl Hct 39.0 (37.0-47.0) % MCV 88.0 (80.0-98.0) fL MCH 30.0 (27.0-33.0) pg MCHC 34.1 (31.0-35.0) g/dl RDW 12.1 (11.0-16.0) % Plt Count 254 (160-400) X10*3/uL MPV 8.9 L (9.4-12.3) fL Immature Gran % (Auto) 0.2 (0.0-0.4) % Neut % (Auto) 50.7 (45-73) % Lymph % (Auto) 33.2 (20-40) % [place] % (Auto) 9.7 (2-11) % Eos % (Auto) 5.7 H (0-4) % Baso % (Auto) 0.5 (0-2) % Lymph # (Auto) 1.9 (1.2-4.9) X10*3/uL [place] # (Auto) 0.5 (0.1-1.2) X10*3/uL Eos # (Auto) 0.3 (0.0-0.4) X10*3/uL Baso # (Auto) 0.0 (0.0-0.2) X10*3/uL Abs Immat Gran (auto) 0.01 (0.00-0.03) X10*3/uL Absolute Neuts (auto) 2.8 (2.0-8.3) x10*3/uL Absolute Nucleated RBC 0.000 (0.0-0.012) X10*3/uL Nucleated RBC % (auto) 0.0 (0.0-0.2) /100WBC PT (10.0-13.1) SEC INR (0.9-1.1) APTT (26.0-36.4) SEC D-Dimer High Sensitivty NG/ML Sodium 139 (135-145) mmol/L Potassium 3.5 (3.3-5.1) mmol/L Chloride 101 (96-108) mmol/L Carbon Dioxide 27 (22-29) mmol/L Anion Gap 15 (12-20) BUN 11 (9-16) mg/dL Creatinine 0.80 (0.5-1.4) mg/dL Estim Creat Clear Calc 65.7 Estimated GFR > 60 Random Glucose 88 (60-115) mg/dL Lactic Acid 1.6 (0.5-2.0) mmol/L Calcium 9.5 D (8.4-10.2) mg/dL Magnesium 1.9 (1.6-2.6) mg/dL Total Bilirubin 0.6 (0.0-1.0) mg/dL AST 24 (5-31) U/L ALT 27 (0-31) U/L Alkaline Phosphatase 96 (39-117) U/L Troponin I High Sens (<3.5-17.0) ng/L Total Protein 7.7 (6.5-8.0) g/dL Albumin 4.2 (3.5-5.0) g/dL Urine Color Urine Appearance Urine pH (5.0-8.0) Ur Specific [place] (1.005-1.025) Urine Protein (Neg-Trace) mg/dL Urine Glucose (UA) (Negative) mg/dL Urine Ketones (Negative) mg/dL Urine Blood (Negative) Urine Nitrite (Negative) Ur Leukocyte Esterase (Negative) COVID-19 ([facility]IA) (Negative) COVID-19 Clin Com 11/08/21 11/08/21 11/08/21 Range/Units 13:16 13:16 13:17 WBC (4.8-10.8) X10*3/uL RBC (4.20-5.50) X10*6/uL Hgb (12.0-16.0) g/dl Hct (37.0-47.0) % MCV (80.0-98.0) fL MCH (27.0-33.0) pg MCHC (31.0-35.0) g/dl RDW (11.0-16.0) % Plt Count (160-400) X10*3/uL MPV (9.4-12.3) fL Immature Gran % (Auto) (0.0-0.4) % Neut % (Auto) (45-73) % Lymph % (Auto) (20-40) % [place] % (Auto) (2-11) % Eos % (Auto) (0-4) % Baso % (Auto) (0-2) % Lymph # (Auto) (1.2-4.9) X10*3/uL [place] # (Auto) (0.1-1.2) X10*3/uL Eos # (Auto) (0.0-0.4) X10*3/uL Baso # (Auto) (0.0-0.2) X10*3/uL Abs Immat Gran (auto) (0.00-0.03) X10*3/uL Absolute Neuts (auto) (2.0-8.3) x10*3/uL Absolute Nucleated RBC (0.0-0.012) X10*3/uL Nucleated RBC % (auto) (0.0-0.2) /100WBC PT (10.0-13.1) SEC INR (0.9-1.1) APTT (26.0-36.4) SEC D-Dimer High Sensitivty NG/ML Sodium (135-145) mmol/L Potassium (3.3-5.1) mmol/L Chloride (96-108) mmol/L Carbon Dioxide (22-29) mmol/L Anion Gap (12-20) BUN (9-16) mg/dL Creatinine (0.5-1.4) mg/dL Estim Creat Clear Calc Estimated GFR Random Glucose (60-115) mg/dL Lactic Acid (0.5-2.0) mmol/L Calcium (8.4-10.2) mg/dL Magnesium (1.6-2.6) mg/dL Total Bilirubin (0.0-1.0) mg/dL AST (5-31) U/L ALT (0-31) U/L Alkaline Phosphatase (39-117) U/L Troponin I High Sens < 3.5 (<3.5-17.0) ng/L Total Protein (6.5-8.0) g/dL Albumin (3.5-5.0) g/dL Urine Color Straw Urine Appearance Clear Urine pH 6.5 (5.0-8.0) Ur Specific [place] <= 1.005 (1.005-1.025) Urine Protein Negative (Neg-Trace) mg/dL Urine Glucose (UA) Negative (Negative) mg/dL Urine Ketones Negative (Negative) mg/dL Urine Blood Negative (Negative) Urine Nitrite Negative (Negative) Ur Leukocyte Esterase Negative (Negative) COVID-19 (SAMIA) Positive A (Negative) COVID-19 Clin Com See Note 11/08/21 Range/Units 13:44 WBC (4.8-10.8) X10*3/uL RBC (4.20-5.50) X10*6/uL Hgb (12.0-16.0) g/dl Hct (37.0-47.0) % MCV (80.0-98.0) fL MCH (27.0-33.0) pg MCHC (31.0-35.0) g/dl RDW (11.0-16.0) % Plt Count (160-400) X10*3/uL MPV (9.4-12.3) fL Immature Gran % (Auto) (0.0-0.4) % Neut % (Auto) (45-73) % Lymph % (Auto) (20-40) % [place] % (Auto) (2-11) % Eos % (Auto) (0-4) % Baso % (Auto) (0-2) % Lymph # (Auto) (1.2-4.9) X10*3/uL [place] # (Auto) (0.1-1.2) X10*3/uL Eos # (Auto) (0.0-0.4) X10*3/uL Baso # (Auto) (0.0-0.2) X10*3/uL Abs Immat Gran (auto) (0.00-0.03) X10*3/uL Absolute Neuts (auto) (2.0-8.3) x10*3/uL Absolute Nucleated RBC (0.0-0.012) X10*3/uL Nucleated RBC % (auto) (0.0-0.2) /100WBC PT 11.1 (10.0-13.1) SEC INR 1.0 (0.9-1.1) APTT 32.7 (26.0-36.4) SEC D-Dimer High Sensitivty 290 NG/ML Sodium (135-145) mmol/L Potassium (3.3-5.1) mmol/L Chloride (96-108) mmol/L Carbon Dioxide (22-29) mmol/L Anion Gap (12-20) BUN (9-16) mg/dL Creatinine (0.5-1.4) mg/dL Estim Creat Clear Calc Estimated GFR Random Glucose (60-115) mg/dL Lactic Acid (0.5-2.0) mmol/L Calcium (8.4-10.2) mg/dL Magnesium (1.6-2.6) mg/dL Total Bilirubin (0.0-1.0) mg/dL AST (5-31) U/L ALT (0-31) U/L Alkaline Phosphatase (39-117) U/L Troponin I High Sens (<3.5-17.0) ng/L Total Protein (6.5-8.0) g/dL Albumin (3.5-5.0) g/dL Urine Color Urine Appearance Urine pH (5.0-8.0) Ur Specific [place] (1.005-1.025) Urine Protein (Neg-Trace) mg/dL Urine Glucose (UA) (Negative) mg/dL Urine Ketones (Negative) mg/dL Urine Blood (Negative) Urine Nitrite (Negative) Ur Leukocyte Esterase (Negative) COVID-19 ([facility]IA) (Negative) COVID-19 Clin Com Imaging Data CT scan - head: Attestation: I personally reviewed and interpreted this imaging study as follows: My impression: No acute process. Radiologist's impression: EXAMINATION: CT HEAD WITHOUT CONTRAST CLINICAL INFORMATION: Dizziness.? COMPARISON: Noncontrast CT head 10/04/2011.. TECHNIQUE: Contiguous axial imaging was performed from the skull base to vertex without intravenous administration of contrast.? Additional 2-D coronal and sagittal reformatted images are generated on the CT workstation and uploaded to PACS. This CT examination was performed using dose optimization techniques as appropriate, variously including the following: *Automated exposure control *Adjustment of mA and/or kV according to patient size (this includes techniques or standardized protocols for targeted exams where dose is matched to indication/reason for exam; i.e. extremities or head) *Use of iterative reconstruction technique DLP: 646 mGy-cm FINDINGS: There is no intracranial hemorrhage, hematoma, or extra-axial fluid collection.? The ventricles are normal in size. There is no hydrocephalus, edema, or mass effect.? The chong-white matter differentiation appears well preserved .? Probable chronic empty sella, similar to prior exam.? There is no visible acute territorial infarct or mass lesion. The calvarium appears intact. There is no pneumocephalus or orbital emphysema.? No fluid levels sinuses, middle ears, mastoids. Mild mucosal thickening maxillary, ethmoid, and sphenoid sinuses. CT/CT head/brain wo con IMPRESSION: No acute intracranial abnormality. ? Dictated By: Jose Askew MD Signed By: Electronically signed by Jose Askew MD 11/08/[address] scan - chest: Attestation: I personally reviewed and interpreted this imaging study as follows: My impression: No acute process. Radiologist's impression: EXAMINATION: CT ANGIOGRAM OF THE CHEST WITH AND WITHOUT CONTRAST (CT PULMONARY ANGIOGRAM FOR PE) CLINICAL INFORMATION: Reason for Exam elevated dimer, SOB COMPARISON: March 22, 2017? TECHNIQUE: Prior to contrast administration, noncontrast localization images were obtained. ? Subsequently, multidetector volumetric imaging was performed from the thoracic inlet to below the diaphragms following the administration of 65 mL Omnipaque 350 intravenous contrast. No contrast reaction reported Sagittal, coronal, and MIP oblique sagittal reformatted images were obtained on the CT workstation, uploaded to PACS, and reviewed. This CT examination was performed using dose optimization techniques as appropriate, variously including the following: *Automated exposure control *Adjustment of mA and/or kV according to patient size (this includes techniques or standardized protocols for targeted exams where dose is matched to indication/reason for exam; i.e. extremities or head) *Use of iterative reconstruction technique Total exam dose-length product 352 mGy-cm FINDINGS: There is some motion artifact present. QUALITY OF STUDY/CONTRAST BOLUS: Satisfactory. PULMONARY ARTERIES: No central or segmental pulmonary emboli.? THORACIC AORTA: No thoracic aortic aneurysm. No thoracic aortic dissection. No significant aortic plaque is appreciated. LUNG: There are regions of groundglass opacity present most prominent at the lung bases bilaterally consistent with dependent atelectasis. Central airways are patent. No significant bronchial wall thickening. No evidence of bronchiectasis. There is a 6 x 3 mm region of density about the minor fissure representing an intrafissural lymph node. No suspicious lung nodule identified. PLEURA: No pleural effusion or pneumothorax. MEDIASTINUM: Heart normal size. No pericardial effusion. No mediastinal or hilar lymphadenopathy. No thyroid abnormality appreciated. No evidence of septal bowing or right heart strain. CHEST WALL/AXILLA: No axillary or internal mammary lymphadenopathy. OSSEOUS STRUCTURES: No acute or suspicious osseous abnormality.? UPPER ABDOMEN: Unremarkable.? No reflux of contrast into the hepatic veins to suggest elevated right heart pressures. Calcified hepatic granuloma. CT/CT angio chest PE protocol IMPRESSION: No evidence of acute pulmonary artery embolus. ? No evidence of thoracic aortic aneurysm or dissection. ? No evidence to suggest right heart failure. ? VTE: negative Dictated By: Simon Baca MD Signed By: Electronically signed by Simon Baca MD 11/08/21 1538 ECG Data Attestation: I personally reviewed and interpreted this ECG as follows: Prior ECG tracings: available for review Interpretation: Vent. Rate: 066 BPM ? ? Atrial Rate: 066 BPM P-R Int: 162 ms? QRS Dur: 124 ms QT Int: 456 ms ? ? ? P-R-T Axes: 048 002 035 degrees QTc Int: 478 ms ? Normal sinus rhythm Right bundle branch block Abnormal ECG When compared with ECG of 05-NOV-2020 13:10, Right bundle branch block is now Present ? Electronically Signed By:CHELSI BORREGO DOCP Dictated By: Chelsi Borrego DO Signed By: Electronically signed by Chelsi Borrego DO 11/08/21 1722 Discharge Plan Discharge Clinical Impression: COVID-19 Patient Disposition: Home, Self-Care Instructions: COVID-19 (Coronavirus Disease 2019) (ED) Additional Instructions: Continue fluid intake. Follow up with your primary care provider. Return to the emergency department immediately if your symptoms worsen or if you develop any dizziness, shortness of breath, difficulty breathing, chest pain, blurry vision, loss of vision, nausea, vomiting, abdominal pain, fever, chills, back pain, or any other complaints. Prescriptions: No Action calcium carbonate-vitamin D3 600 mg-10 mcg (400 unit) tablet 1 tab PO QAM Qty: 30 5RF vitamin E (dl, acetate) 180 mg (400 unit) capsule 180 mg PO DAILY docusate sodium 100 mg Capsule 100 mg PO BID 14 Days Qty: 28 0RF lisinopril-hydrochlorothiazide 10-12.5 mg tablet 1 tab PO DAILY amlodipine 2.5 mg tablet 2.5 mg PO DAILY metformin 500 mg tablet 500 mg PO QAM fluticasone propionate 50 mcg/actuation spray,suspension 50 mcg intranasal BID montelukast 10 mg tablet 10 mg PO DAILY ursodiol 250 mg tablet 750 mg PO BID albuterol sulfate 90 mcg/actuation HFA aerosol inhaler 90 mcg inhalation Q4-6H PRN (Reason: Wheezing) clonazepam 0.5 mg tablet 0.5 mg PO DAILY PRN (Reason: Anxiety) atorvastatin 20 mg tablet 20 mg PO DAILY tiotropium bromide 1.25 mcg/actuation mist 2 puff inhalation DAILY omeprazole 20 mg capsule,delayed release(DR/EC) 20 mg PO QAM fluticasone propion-salmeterol 115-21 mcg/actuation HFA aerosol inhaler 2 puff inhalation BID trazodone 100 mg tablet 200 mg PO BEDTIME naloxone [Narcan] 4 mg/actuation spray,non-aerosol 0 spray intranasal darifenacin 15 mg tablet extended release 24 hr 15 mg PO QAM hydrocodone-acetaminophen 5-325 mg tablet 1 tab PO Q8H PRN (Reason: pain) trazodone 150 mg tablet 300 mg PO BEDTIME celecoxib 200 mg capsule 200 mg PO BID 30 Days Qty: 60 0RF lidocaine 5 % adhesive patch,medicated 1 patch topical DAILY 30 Days Qty: 30 0RF Rx Instructions: leave on most painful area for up to 12 hrs pseudoephedrine HCl [Sudogest] 30 mg tablet 30 mg PO Q12H PRN albuterol sulfate 2.5 mg /3 mL (0.083 %) solution for nebulization inhalation Premarin 0.625 mg/gram cream 0 mg vaginal Referrals: Darcy Temple MD [Primary Care Provider] - Interventions: ED Discharge Assessment Last Done: 11/08/21 18:26 Discharge Date/Time: 11/08/21 18:26 Print Language: [place]
--- NOTE | 2021-11-08 12:40 | ECG_ITS ---
Test Reason : HYPOTENSION Blood Pressure : / mmHG Vent. Rate : 066 BPM Atrial Rate : 066 BPM P-R Int : 162 ms QRS Dur : 124 ms QT Int : 456 ms P-R-T Axes : 048 002 035 degrees QTc Int : 478 ms Normal sinus rhythm Right bundle branch block Abnormal ECG When compared with ECG of 05-NOV-2020 13:10, Right bundle branch block is now Present Referred By: Perla Urrutia Electronically Signed By:CHELSI CORADO
[2021-11-08 13:26] LABS: MANUAL DIFF FLAG NO
[2021-11-08 13:27] LABS: Appearance Urine Clear; Color Urine Straw; Glucose Urine UA Negative (Negative); Leukocyte Esterase Urine Negative (Negative); Nitrite Urine Negative (Negative); PH 6.5 (5.0-8.0); Specific Gravity - Urine <= 1.005 (1.005-1.025); Urine Blood Negative (Negative); Urine Ketones Negative (Negative); Urine Protein Negative (Neg-Trace)
[2021-11-08 13:28] LABS: Basophils Percent Auto 0.5 % (0-2); Eosinophils Absolute Auto 0.3 X10*3/uL (0.0-0.4); Eosinophils Percent Auto 5.7 % (0-4); Hemoglobin 13.3 g/dl (12.0-16.0); Imm Gran Abs Auto 0.01 X10*3/uL (0.00-0.03); Imm Gran Pct Auto 0.2 % (0.0-0.4); Lymphocytes Absolute Auto 1.9 X10*3/uL (1.2-4.9); Lymphocytes Percent Auto 33.2 % (20-40); Mean Corpuscular HGB Conc 34.1 g/dl (31.0-35.0); Mean Platelet Volume 8.9 fL (9.4-12.3); Monocytes Absolute Auto 0.5 X10*3/uL (0.1-1.2); Monocytes Percent Auto 9.7 % (2-11); Neutrophils Absolute Auto 2.8 x10*3/uL (2.0-8.3); Neutrophils Percent Auto 50.7 % (45-73); Platelet Count 254 X10*3/uL (160-400); Red Blood Count 4.43 X10*6/uL (4.20-5.50); Red Cell Distribution Width 12.1 % (11.0-16.0); White Blood Count 5.6 X10*3/uL (4.8-10.8)
[2021-11-08 13:36] LABS: COVID-19 Test Positive (Negative); IDNOW Serial# 16C4AD1C
[2021-11-08 13:52] LABS: Lactic Acid 1.6 mmol/L (0.5-2.0)
[2021-11-08 13:55] LABS: Prothrombin Time 11.1 SEC (10.0-13.1)
[2021-11-08 13:56] LABS: Alanine Aminotransferase 27 U/L (0-31); Albumin Level 4.2 g/dL (3.5-5.0); Alkaline Phosphatase 96 U/L (39-117); Anion Gap 15 (12-20); Aspartate Amino Transferase 24 U/L (5-31); Bilirubin Total 0.6 mg/dL (0.0-1.0); Blood Urea Nitrogen 11 mg/dL (9-16); Calcium 9.5 mg/dL (8.4-10.2); Carbon Dioxide 27 mmol/L (22-29); Chloride 101 mmol/L (96-108); Creatinine Clr Calc Pharmacy 65.7; Estimated Glomerular Filt Rate > 60; Glucose Random 88 mg/dL (60-115); Magnesium 1.9 mg/dL (1.6-2.6); Potassium 3.5 mmol/L (3.3-5.1); Sodium 139 mmol/L (135-145); Total Protein 7.7 g/dL (6.5-8.0)
[2021-11-08 13:57] LABS: Troponin-I High Sensitivity < 3.5 ng/L (<3.5-17.0)
[2021-11-08 13:57] LABS: D Dimer High Sensitivity 290 NG/ML
[2021-11-08 13:58] LABS: Partial Thromboplastin Time 32.7 SEC (26.0-36.4)
[2021-11-08] MEDS: 0.9 % Sodium Chloride 1,000 ML 999 ML IV (14:04)
[2021-11-08] MEDS: iohexoL 350 MG/ML 100 ML INFUS..BTL IV (14:56)
== END 2021-11-08 18:26 | disposition home or self-care (01) ==
PROVIDERS: Physician Assistant Medical; Emergency Provider Emergency Medicine; PCP Internal Medicine
DX: U07.1 COVID-19 (principal); R06.02 Shortness of breath; R42 Dizziness and giddiness; R07.89 Other chest pain; I95.9 Hypotension, unspecified; Z79.899 Other long term (current) drug therapy
CPT/HCPCS: 70450; 71046; 71275; 80053; 81003; 83605; 83735; 84484; 85025; 85379; 85610; 85730; 87040; 87147; 87205; 87635; 93005; 99284; Q9967

== ENCOUNTER 2021-11-12 10:38 | Emergency (ER) | payer OTHER, SELFPAY ==
--- NOTE | ~2021-11-12 | XR_ITS ---
EXAMINATION: XR CHEST CLINICAL INFORMATION: Cough COMPARISON: CT angiogram of chest from 11/08/2021, chest radiograph from 11/08/2021 TECHNIQUE: Frontal view of the chest was obtained. FINDINGS: Bilateral low lung volumes with slight accentuation of the pulmonary vasculature. No pneumothorax. Trachea is midline. Cardiomediastinal silhouette is not enlarged. Atherosclerotic calcifications of the aorta. No large pleural effusion. Osseous structures are intact. Soft tissues are unremarkable. XR/XR chest 1V IMPRESSION: Bilateral low lung volumes with slight accentuation of the pulmonary vasculature.
--- NOTE | ~2021-11-12 | CT_ITS ---
EXAMINATION: CT ABDOMEN AND PELVIS WITH CONTRAST CLINICAL INFORMATION: Diffuse abdominal pain, nausea and vomiting. COMPARISON: Abdomen ultrasound from 03/21/2021. Abdomen CT from 03/22/2017. TECHNIQUE: Multidetector volumetric images were obtained from the superior aspect of the liver through the pubic symphysis following administration 85 mL of Omnipaque 350 intravenous contrast. Sagittal and coronal reformatted images were obtained on the technologist's workstation. This CT examination was performed using dose optimization techniques as appropriate, variously including the following: *Automated exposure control *Adjustment of mA and/or kV according to patient size (this includes techniques or standardized protocols for targeted exams where dose is matched to indication/reason for exam; i.e. extremities or head) *Use of iterative reconstruction technique DLP: 714 mGy-cm FINDINGS: LUNG BASES: Normal. No pulmonary consolidation or pleural effusion. LIVER: Liver parenchyma is diffusely hypodense compared to the spleen on these portal venous phase images. This finding, along with the ultrasound appearance of the liver on 03/21/2021, suggest presence of mild steatosis. No focal liver lesion. GALLBLADDER AND BILIARY TREE: Gallbladder is without radiopaque stones, wall thickening or pericholecystic fluid. No dilated bile ducts. PANCREAS: Normal. No edema, pancreatic ductal dilatation or mass. SPLEEN: Normal. ADRENAL GLANDS: Normal. KIDNEYS AND URETERS: Kidneys are normal in size and enhance symmetrically. No nephrolithiasis or hydronephrosis. Small, 0.5 cm cortical cyst of the mid right kidney has a simple appearance. 1 cm simple cortical cyst of the left kidney. No renal imaging follow-up is recommended for simple cysts. The foci of calcific density lateral to the left kidney could be related to old fat necrosis. Previously, there was a small amount of perinephric fluid intermixed with fat density in this region on 03/22/2017. The ureters are unremarkable. BLADDER: Normal. No calculi or wall thickening. BOWEL AND PERITONEUM: Stomach is unremarkable. No dilated loops of bowel. The appendix is normal. No overt bowel wall thickening or mesenteric fat stranding. No free fluid or pneumoperitoneum. ABDOMINAL WALL: Mesh observed in the periumbilical region of the anterior abdominal wall. VASCULATURE: Unremarkable. LYMPH NODES: No pathologic sized lymph nodes in the abdomen or pelvis. No inguinal lymphadenopathy. PELVIC VISCERA: The uterus is absent. No adnexal mass or pelvic free fluid. Surgical clips in the left inguinal region. SKELETAL: Unremarkable. CT/CT abdomen pelvis w con IMPRESSION: * No acute imaging abnormalities in the abdomen pelvis. * No inflammatory change or obstruction along the gastrointestinal tract. * Diffuse hepatic steatosis. * No evidence of nephrolithiasis or hydroureteronephrosis.
[2021-11-12 11:00] VITALS: BP 144/63; BP 144/86; PULSE 45; PULSE 50; RESP 18; TEMP 36.4; O2SAT 98; BMI 35.9
--- NOTE | 2021-11-12 11:08 | ED_ITS ---
HPI - Abdominal Pain General Chief Complaint: Abdominal Pain Stated Complaint: ABD PAIN, VOMITING, COVID + Time Seen by Provider: 11/12/21 10:53 Source: patient Limitations: language barrier History of Present Illness HPI narrative: 66-year-old female with a past medical history of COVID-19 positive x 4 days ago, presents to the emergency department with abdominal pain, nausea, vomiting, and lightheadedness/generalized fatigue/weakness x this morning. Patient was recently started on Paxlovid, reports took her 1st dose yesterday morning prior to sx beginning. Patient denies any fever, chills, headache, vision changes, room spinning dizziness, shortness of breath, wheezing, or chest pain. Of note patient was recently seen and treated in the ED on 11/08/2021 for similar symptoms, had unremarkable labs and negative CXR, CT PE and head CT MD elicited complaint: abdominal pain Onset (ago): hour(s) Related Data Home Medications Medication Instructions Recorded Confirmed albuterol sulfate 90 mcg/actuation 90 mcg inhalation Q4-6H PRN 03/21/20 09/18/21 aerosol inhaler Wheezing atorvastatin 20 mg tablet 20 mg PO DAILY 03/21/20 09/18/21 clonazepam 0.5 mg tablet 0.5 mg PO DAILY PRN Anxiety 03/21/20 09/18/21 omeprazole 20 mg capsule,delayed 20 mg PO QAM 03/21/20 09/18/21 release tiotropium bromide 1.25 2 puff inhalation DAILY 03/21/20 09/18/21 mcg/actuation mist for inhalation amlodipine 2.5 mg tablet 2.5 mg PO DAILY 04/03/20 09/18/21 fluticasone propionate 50 50 mcg intranasal BID 04/03/20 09/18/21 mcg/actuation nasal spray,suspension lisinopril 10 1 tab PO DAILY 04/03/20 09/18/21 mg-hydrochlorothiazide 12.5 mg tablet metformin 500 mg tablet 500 mg PO QAM 04/03/20 09/18/21 montelukast 10 mg tablet 10 mg PO DAILY 04/03/20 09/18/21 ursodiol 250 mg tablet 750 mg PO BID 04/03/20 09/18/21 fluticasone propionate 115 2 puff inhalation BID 08/21/20 09/18/21 mcg-salmeterol 21 mcg/actuation HFA inhaler vitamin E (dl, acetate) 180 mg 180 mg PO DAILY 11/22/20 09/18/21 (400 unit) capsule trazodone 100 mg tablet 200 mg PO BEDTIME 01/04/21 09/18/21 darifenacin 15 mg tablet,extended 15 mg PO QAM 06/24/21 09/18/21 release 24 hr hydrocodone 5 mg-acetaminophen 325 1 tab PO Q8H PRN pain 06/24/21 09/18/21 mg tablet naloxone 4 mg/actuation nasal 0 spray intranasal 06/24/21 09/18/21 spray (Narcan) trazodone 150 mg tablet 300 mg PO BEDTIME 06/24/21 09/18/21 albuterol sulfate 2.5 mg/3 mL mg inhalation 10/01/21 (0.083 %) solution for nebulization pseudoephedrine HCl 30 mg tablet 30 mg PO Q12H PRN 10/01/21 (Sudogest) conjugated estrogens 0.625 mg/gram 0 mg vaginal 11/01/21 vaginal cream (Premarin) Previous Rx's Medication Instructions Recorded docusate sodium 100 mg capsule 100 mg PO BID 14 days #28 caps 11/24/20 calcium carbonate 600 mg-vitamin 1 tab PO QAM #30 tabs 06/03/21 D3 10 mcg (400 unit) tablet celecoxib 200 mg capsule 200 mg PO BID 30 days #60 caps 06/24/21 lidocaine 5 % topical patch 1 patch topical DAILY pain 30 days 06/24/21 #30 ea ondansetron 4 mg disintegrating 4 mg PO Q8H PRN nausea and 11/12/21 tablet vomiting #10 tabs Allergies Allergy/AdvReac Type Severity Reaction Status Date / Time No Known Allergies Allergy Verified 11/01/21 11:22 [No Known Allergies*] Review of Systems Review of Systems Constitutional: No Fever, No Chills, + Fatigue, + Malaise ENT/Mouth: No Ear Pain, No Nasal Congestion, No Sinus Pain, No Hoarseness, No Sore Throat, No Rhinorrhea, No Swallowing Difficulty Eyes: No Eye Pain, No Swelling, No Redness, No Vision Changes Cardiovascular: No Chest Pain, No SOB, No Dyspnea on Exertion, No Orthopnea, No Edema Respiratory: + Mild Cough, No Sputum, No Dyspnea Gastrointestinal: + Nausea, + Vomiting, No Diarrhea, No Constipation, + Abdominal pain Genitourinary: No Dysuria, No Urinary Frequency, No Hematuria, No Urinary Incontinence/retention, No Urgency, No Flank Pain Musculoskeletal: No Joint Pain, + Myalgias, No Joint Swelling Skin: No Skin Lesions, No rash Neuro: +generalized Weakness, No Numbness, No Paresthesias, No Loss of Consciousness, No Dizziness, No Headache, + Lightheadedness Yes all other systems are reviewed and are negative Constitutional: Reports as per [facility] Past Medical History Attestation statement: The following information was validated with the patient. Medical History Anxiety Asthma Bilateral primary osteoarthritis of knee Chronic kidney disease COVID-19 vaccine series completed Depression Elevated cholesterol Essential hypertension History of renal calculi Hx of hepatitis C Lumbar facet arthropathy JUSTIN (obstructive sleep apnea) Other chronic pain Other intervertebral disc displacement, lumbar region Renal stones Spondylosis of lumbar spine Type 2 diabetes mellitus with complication, without long-term current use of insulin Vitamin D deficiency Surgical History H/O abdominal hysterectomy H/O tubal ligation History of colonoscopy History of esophagogastroduodenoscopy (EGD) History of laryngoscopy History of total right knee replacement (TKR) Hx of arthroscopy of left knee Hx of dilation and curettage Hx of lithotripsy Hx of umbilical hernia repair S/P repair of ventral hernia Family History Family History Father Diabetes mellitus HTN (hypertension) Mother No problems noted. 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 Housing: House Are you a primary nurse care manager to a significant other at home: No Do you presently have visiting nurse or other home services: Yes Alcohol intake: former Year quit: 1995 Patient Tobacco Use Status: Former Tobacco user Quit Date: 2000 Tobacco use type: Cigarette Years Smoked: 5+ Substance Use Type: Crack/Cocaine Advance Directives: Yes Advance Directives Information Provided: Yes Advance Directives on File: No service: No Current occupational status: retired 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 Physical Exam ED Vital Signs: Vital Signs - 24 hr 11/12/21 11:00 11/12/21 13:31 11/12/21 15:23 Temperature 97.6 F 97.8 F Pulse Rate 45 L 60 46 L Respiratory Rate 18 18 16 Blood Pressure 144/63 H 108/62 124/65 Pulse Oximetry 98 98 96 Oxygen Delivery Method Room Air Room Air Room Air BMI result Body Mass Index 35.9 Const General: cooperative, healthy appearing and no acute distress Orientation/consciousness: patient oriented x3 Limitations: no limitations HENMT Head: Yes normal to inspection and Yes atraumatic Ears: hearing grossly normal bilaterally General nose exam: Normal external nose present Face and sinus: Yes normal facial exam Eyes General: appearance normal, both eyes and all related structures EOM: EOMs intact bilaterally Neck Neck: Yes normal visual inspection and Yes no meningeal signs Resp Effort & Inspection: normal respiratory effort and no respiratory distress Auscultation: clear to auscultation bilaterally, no crackles, no rales and no rhonchi Cardio Rate: regular rate Heart sounds: S1 normal heart sound present and S2 normal heart sound present GI Inspection: Yes normal to inspection and Yes obesity Palpation (GI): Soft to palpation, Tenderness to palpation present (GI) (diffusely) with no rebound tenderness, no guarding and not rigid General: Yes no CVA tenderness Back/Spine/Pelvis Back: no CVA tenderness Skin Rashes: no rashes Wounds: no wounds Neuro General: patient oriented x3, tone normal, moves all extremities, no meningeal signs, no focal motor deficits and CN's II-XI intact bilaterally Cognition (Neuro): normal cognition Gait exam (Neuro): Normal gait present Extrem General: Yes normal to inspection and Yes no pedal edema Course Course Course Narrative: -1305--no leukocytosis. H&H at patient's baseline. Potassium mildly low 3.1 > p.o. repletion ordered. BUN mildly elevated at 17 likely from dehydration/fluid losses -troponin negative. labs otherwise unremarkable -UA with protein and ketones, not infected XR chest 1V IMPRESSION: Bilateral low lung volumes with slight accentuation of the pulmonary vasculature. 1529-CT abdomen pelvis w con IMPRESSION: *? No acute imaging abnormalities in the abdomen pelvis. *? No inflammatory change or obstruction along the gastrointestinal tract. *? Diffuse hepatic steatosis. *? No evidence of nephrolithiasis or hydroureteronephrosis. > patient tolerating p.o. in the ED without nausea or vomiting. On re- evaluation reports symptomatic improvement/resolution. Discussed findings with infant toddler lead teacher. Recommended patient stop taking Paxlovid as likely caused symptoms. Results discussed with patient including worrisome signs and symptoms and strict return precautions, and when to return to the emergency department. They verbalized understanding and feel safe for discharge at this time. MDM - Abdominal Pain MDM Narrative Medical decision making narrative: 66-year-old female with a past medical history of COVID-19 positive x 4 days ago, presents to the emergency department with abdominal pain, nausea, vomiting, and lightheadedness/generalized fatigue/weakness x this morning. On exam heart rate 45, NAD, nontoxic appearing, abdomen is soft diffusely tender, no rebound or guarding. Lungs CTA. No pedal edema. Concern for adverse reaction to Paxlovid vs gastroenteritis vs appendicitis/diverticulitis. Rule out metabolic abnormalities. Rule out ACS. Lower suspicion for PE/pneumonia Plan: EKG, labs, UA, CXR, CT abdomen/pelvis, IVF, antiemetics, p.o. challenge. Patient's blood cultures from previous visit were positive for coag-negative staph, likely contaminant, however will obtain repeat cultures today Differential Diagnosis Differential diagnosis: Likely abdominal pain, gastroenteritis, gastritis and pancreatitis Medical Records Attestation: I reviewed the patient's medical records. Lab Data Attestation: I reviewed the patient's lab results. Result diagrams: 11/12/21 11:47 11/12/21 11:47 Labs: Lab Results 11/12/21 11/12/21 11/12/21 Range/Units 11:47 11:47 11:47 WBC 10.1 (4.8-10.8) X10*3/uL RBC 4.08 L (4.20-5.50) X10*6/uL Hgb 12.2 (12.0-16.0) g/dl Hct 35.5 L (37.0-47.0) % MCV 87.0 (80.0-98.0) fL MCH 29.9 (27.0-33.0) pg MCHC 34.4 (31.0-35.0) g/dl RDW 11.9 (11.0-16.0) % Plt Count 255 (160-400) X10*3/uL MPV 9.0 L (9.4-12.3) fL Immature Gran % (Auto) 0.3 (0.0-0.4) % Neut % (Auto) 70.4 (45-73) % Lymph % (Auto) 24.3 (20-40) % [place] % (Auto) 4.7 (2-11) % Eos % (Auto) 0.2 (0-4) % Baso % (Auto) 0.1 (0-2) % Lymph # (Auto) 2.4 (1.2-4.9) X10*3/uL [place] # (Auto) 0.5 (0.1-1.2) X10*3/uL Eos # (Auto) 0.0 (0.0-0.4) X10*3/uL Baso # (Auto) 0.0 (0.0-0.2) X10*3/uL Abs Immat Gran (auto) 0.03 (0.00-0.03) X10*3/uL Absolute Neuts (auto) 7.1 (2.0-8.3) x10*3/uL Absolute Nucleated RBC 0.000 (0.0-0.012) X10*3/uL Nucleated RBC % (auto) 0.0 (0.0-0.2) /100WBC Sodium 141 (135-145) mmol/L Potassium 3.1 L (3.3-5.1) mmol/L Chloride 105 (96-108) mmol/L Carbon Dioxide 24 (22-29) mmol/L Anion Gap 15 (12-20) BUN 17 H D (9-16) mg/dL Creatinine 0.71 (0.5-1.4) mg/dL Estim Creat Clear Calc 70.4 Estimated GFR > 60 Random Glucose 170 H (60-115) mg/dL Calcium 8.5 D (8.4-10.2) mg/dL Magnesium 2.0 (1.6-2.6) mg/dL Total Bilirubin 0.5 (0.0-1.0) mg/dL Direct Bilirubin 0.2 (0.0-0.5) mg/dL AST 19 (5-31) U/L ALT 23 (0-31) U/L Alkaline Phosphatase 74 D (39-117) U/L Troponin I High Sens < 3.5 (<3.5-17.0) ng/L B-Natriuretic Peptide 71 (<100) pg/mL Total Protein 6.7 (6.5-8.0) g/dL Albumin 3.6 (3.5-5.0) g/dL Lipase 21 (8-78) U/L Urine Color Urine Appearance Urine pH (5.0-8.0) Ur Specific [place] (1.005-1.025) Urine Protein (Neg-Trace) mg/dL Urine Glucose (UA) (Negative) mg/dL Urine Ketones (Negative) mg/dL Urine Blood (Negative) Urine Nitrite (Negative) Ur Leukocyte Esterase (Negative) Urine RBC (0-2) /HPF Urine WBC (0-5) /HPF Ur Squamous Epith Cells (0-2) /HPF Urine Bacteria (None Seen) Hyaline Casts (0-2) /LPF 11/12/21 Range/Units 11:47 WBC (4.8-10.8) X10*3/uL RBC (4.20-5.50) X10*6/uL Hgb (12.0-16.0) g/dl Hct (37.0-47.0) % MCV (80.0-98.0) fL MCH (27.0-33.0) pg MCHC (31.0-35.0) g/dl RDW (11.0-16.0) % Plt Count (160-400) X10*3/uL MPV (9.4-12.3) fL Immature Gran % (Auto) (0.0-0.4) % Neut % (Auto) (45-73) % Lymph % (Auto) (20-40) % [place] % (Auto) (2-11) % Eos % (Auto) (0-4) % Baso % (Auto) (0-2) % Lymph # (Auto) (1.2-4.9) X10*3/uL [place] # (Auto) (0.1-1.2) X10*3/uL Eos # (Auto) (0.0-0.4) X10*3/uL Baso # (Auto) (0.0-0.2) X10*3/uL Abs Immat Gran (auto) (0.00-0.03) X10*3/uL Absolute Neuts (auto) (2.0-8.3) x10*3/uL Absolute Nucleated RBC (0.0-0.012) X10*3/uL Nucleated RBC % (auto) (0.0-0.2) /100WBC Sodium (135-145) mmol/L Potassium (3.3-5.1) mmol/L Chloride (96-108) mmol/L Carbon Dioxide (22-29) mmol/L Anion Gap (12-20) BUN (9-16) mg/dL Creatinine (0.5-1.4) mg/dL Estim Creat Clear Calc Estimated GFR Random Glucose (60-115) mg/dL Calcium (8.4-10.2) mg/dL Magnesium (1.6-2.6) mg/dL Total Bilirubin (0.0-1.0) mg/dL Direct Bilirubin (0.0-0.5) mg/dL AST (5-31) U/L ALT (0-31) U/L Alkaline Phosphatase (39-117) U/L Troponin I High Sens (<3.5-17.0) ng/L B-Natriuretic Peptide (<100) pg/mL Total Protein (6.5-8.0) g/dL Albumin (3.5-5.0) g/dL Lipase (8-78) U/L Urine Color Yellow Urine Appearance Clear Urine pH 7.5 (5.0-8.0) Ur Specific [place] 1.020 (1.005-1.025) Urine Protein 30 (1+) H (Neg-Trace) mg/dL Urine Glucose (UA) Negative (Negative) mg/dL Urine Ketones 15 (Negative) mg/dL Urine Blood Negative (Negative) Urine Nitrite Negative (Negative) Ur Leukocyte Esterase Negative (Negative) Urine RBC 0-2 (0-2) /HPF Urine WBC 0-5 (0-5) /HPF Ur Squamous Epith Cells 0-2 (0-2) /HPF Urine Bacteria None Seen (None Seen) Hyaline Casts 0-2 (0-2) /LPF Discharge Plan Discharge Clinical Impression: COVID-19 Patient Disposition: Home, Self-Care Instructions: COVID-19 (Coronavirus Disease 2019) (ED) Additional Instructions: Please stop taking Paxlovid as likely caused her symptoms. Zofran as an antinausea medication, take as needed. Your blood work and imaging studies were reassuring. Your urine has protein in it, please have this followed by her primary care d michael At this time you will be okay for discharge. Please self isolate for 5-10 days. Do not expose yourself to others. You may not go to work or school. Please continue to follow cold instructions and wash your hands frequently. You may take Tylenol / Motrin as directed on the bottle for pain or fever. If you have constant or persistent shortness of breath, fever unresolved with medications, chest pain, or your unable to eat or drink please return to the ED CDC Guidelines for home isolation: - Stay away from others - WEAR A MASK if you are sick AND STAY HOME - Cover your mouth and nose with a tissue when you cough or sneeze. Dispose of tissues in a lined trash can and wash your hands immediately with soap and water for at least 20 seconds. If soap and water are not available, clean hands with alcohol-based hand alarm installer that contains at least 60% alcohol. - Clean your hands often with soap and water for at least 20 seconds - Avoid touching your eyes, nose and mouth with unwashed hands - Do not share dishes, drinking glasses, cups, eating utensils, towels, or bedding with other people in your home. After using these items, wash them thoroughly with soap and water or put in the golf tournament consultant. - Clean high-touch surfaces in your isolation area ( sick room and bathroom) every day; let a caregiver clean and disinfect high-touch surfaces in other areas of the home. Clean the area or item with soap and water or another detergent if it is dirty. Then, use a household disinfectant. - Limit contact with pets and animals: If you must care for a pet, wash your hands before and after interacting with them) Deje de nadine Paxlovid, ya que es probable que haya causado rossana s?ntomas. Zofran kisha medicamento contra las n?useas, t?ocampo seg?n sea necesario. Rossana an?lisis de antonio y estudios de im?genes fueron tranquilizadores. Arnold orina contiene prote?na, por favor p?gorge seguimiento a arnold m?dico de atenci?n primaria. En tita momento estar? gracie para el leslye. A?slese por 5-10 d?as. No te expongas a los dem?s. Es posible que no vaya al trabajo ni a la escuela. Contin?e siguiendo las instrucciones en fr?o y l?vese las kami con frecuencia. Puede nadine Tylenol/Motrin kisha se indica en el frasco para el dolor o la fiebre. Si tiene dificultad para respirar mary ann o persistente, fiebre que no se resuelve con medicamentos, dolor en el pecho o no puede comer o beber, regrese al servicio de urgencias. Pautas de los CDC para el aislamiento en el hogar: - Mant?ngase alejado de los dem?s. - USE FRANDY MASCARILLA si est? enfermo Y QU?DESE EN CASA - C?brase la boca y la nariz con un pa?uelo desechable al toser o estornudar. Deseche los pa?uelos en un bote de basura forrado y l?vese las kami in mediatamente con agua y jab?n xochitl al menos 20 segundos. Si no hay agua y jab?n disponibles, l?vese las kami con un desinfectante para kami a base de alcohol que contenga al menos un 60 % de alcohol. - L?vese las kami con frecuencia con agua y jab?n xocihtl al menos 20 segundos. - Evite tocarse los ojos, la nariz y la boca con las kami sin saurabh - No comparta platos, vasos, tazas, utensilios para comer, toallas o ropa de cama con otras personas en arnold hogar. Despu?s de usar estos art?culos, l?velos gracie con agua y jab?n o col?quelos en el [place]. - Limpie las superficies de alto contacto en arnold ?nehemias de aislamiento ( cuarto de enfermos y ba?o) todos los d?as; permita que un cuidador limpie y desinfecte las superficies de alto contacto en otras ?reas del hogar. Limpie el ?nehemias o art?culo con agua y jab?n u otro detergente si est? sucio. Luego, use un desinfectante dom?stico. - Limite el contacto con mascotas y animales: si debe cuidar frandy mascota, l?vese las kami antes y despu?s de interactuar con ellos) Prescriptions: New ondansetron 4 mg tablet,disintegrating 4 mg PO Q8H PRN (Reason: nausea and vomiting) Qty: 10 0RF No Action calcium carbonate-vitamin D3 600 mg-10 mcg (400 unit) tablet 1 tab PO QAM Qty: 30 5RF vitamin E (dl, acetate) 180 mg (400 unit) capsule 180 mg PO DAILY docusate sodium 100 mg Capsule 100 mg PO BID 14 Days Qty: 28 0RF lisinopril-hydrochlorothiazide 10-12.5 mg tablet 1 tab PO DAILY amlodipine 2.5 mg tablet 2.5 mg PO DAILY metformin 500 mg tablet 500 mg PO QAM fluticasone propionate 50 mcg/actuation spray,suspension 50 mcg intranasal BID montelukast 10 mg tablet 10 mg PO DAILY ursodiol 250 mg tablet 750 mg PO BID albuterol sulfate 90 mcg/actuation HFA aerosol inhaler 90 mcg inhalation Q4-6H PRN (Reason: Wheezing) clonazepam 0.5 mg tablet 0.5 mg PO DAILY PRN (Reason: Anxiety) atorvastatin 20 mg tablet 20 mg PO DAILY tiotropium bromide 1.25 mcg/actuation mist 2 puff inhalation DAILY omeprazole 20 mg capsule,delayed release(DR/EC) 20 mg PO QAM fluticasone propion-salmeterol 115-21 mcg/actuation HFA aerosol inhaler 2 puff inhalation BID trazodone 100 mg tablet 200 mg PO BEDTIME naloxone [Narcan] 4 mg/actuation spray,non-aerosol 0 spray intranasal darifenacin 15 mg tablet extended release 24 hr 15 mg PO QAM hydrocodone-acetaminophen 5-325 mg tablet 1 tab PO Q8H PRN (Reason: pain) trazodone 150 mg tablet 300 mg PO BEDTIME celecoxib 200 mg capsule 200 mg PO BID 30 Days Qty: 60 0RF lidocaine 5 % adhesive patch,medicated 1 patch topical DAILY 30 Days Qty: 30 0RF Rx Instructions: leave on most painful area for up to 12 hrs pseudoephedrine HCl [Sudogest] 30 mg tablet 30 mg PO Q12H PRN albuterol sulfate 2.5 mg /3 mL (0.083 %) solution for nebulization inhalation Premarin 0.625 mg/gram cream 0 mg vaginal Referrals: Darcy Temple MD [Primary Care Provider] - 1 week Print Language: Tamazight
--- NOTE | 2021-11-12 11:23 | ECG_ITS ---
Test Reason : sob, covid + Blood Pressure : / mmHG Vent. Rate : 050 BPM Atrial Rate : 050 BPM P-R Int : 168 ms QRS Dur : 144 ms QT Int : 534 ms P-R-T Axes : 037 -02 018 degrees QTc Int : 486 ms Sinus bradycardia Right bundle branch block Abnormal ECG When compared with ECG of 08-NOV-2021 12:41, Nonspecific T wave abnormality has replaced inverted T waves in Anterior leads Referred By: Vane Garcia Electronically Signed By:CHELSI CORADO
[2021-11-12] MEDS: 0.9 % Sodium Chloride 1,000 ML 999 ML IV (11:30)
[2021-11-12 12:03] LABS: MANUAL DIFF FLAG NO
[2021-11-12 12:05] LABS: Basophils Percent Auto 0.1 % (0-2); Eosinophils Percent Auto 0.2 % (0-4); Hematocrit 35.5 % (37.0-47.0); Hemoglobin 12.2 g/dl (12.0-16.0); Imm Gran Abs Auto 0.03 X10*3/uL (0.00-0.03); Imm Gran Pct Auto 0.3 % (0.0-0.4); Lymphocytes Absolute Auto 2.4 X10*3/uL (1.2-4.9); Lymphocytes Percent Auto 24.3 % (20-40); Mean Corpuscular HGB Conc 34.4 g/dl (31.0-35.0); Mean Corpuscular Hemoglobin 29.9 pg (27.0-33.0); Monocytes Absolute Auto 0.5 X10*3/uL (0.1-1.2); Monocytes Percent Auto 4.7 % (2-11); Neutrophils Absolute Auto 7.1 x10*3/uL (2.0-8.3); Neutrophils Percent Auto 70.4 % (45-73); Platelet Count 255 X10*3/uL (160-400); Red Blood Count 4.08 X10*6/uL (4.20-5.50); Red Cell Distribution Width 11.9 % (11.0-16.0); White Blood Count 10.1 X10*3/uL (4.8-10.8)
[2021-11-12 12:15] LABS: Appearance Urine Clear; Color Urine Yellow; Glucose Urine UA Negative (Negative); Leukocyte Esterase Urine Negative (Negative); Nitrite Urine Negative (Negative); PH 7.5 (5.0-8.0); Urine Blood Negative (Negative); Urine Ketones 15 mg/dL (Negative); Urine Protein 30 (1+) mg/dL (Neg-Trace)
[2021-11-12] MEDS: Metoclopramide HCl 10 MG/2 ML VIAL IVPUSH (12:22)
[2021-11-12 12:30] LABS: Alanine Aminotransferase 23 U/L (0-31); Albumin Level 3.6 g/dL (3.5-5.0); Alkaline Phosphatase 74 U/L (39-117); Anion Gap 15 (12-20); Aspartate Amino Transferase 19 U/L (5-31); Bilirubin Direct 0.2 mg/dL (0.0-0.5); Bilirubin Total 0.5 mg/dL (0.0-1.0); Blood Urea Nitrogen 17 mg/dL (9-16); Calcium 8.5 mg/dL (8.4-10.2); Carbon Dioxide 24 mmol/L (22-29); Chloride 105 mmol/L (96-108); Creatinine Clr Calc Pharmacy 70.4; Estimated Glomerular Filt Rate > 60; Glucose Random 170 mg/dL (60-115); Lipase 21 U/L (8-78); Potassium 3.1 mmol/L (3.3-5.1); Sodium 141 mmol/L (135-145); Total Protein 6.7 g/dL (6.5-8.0)
[2021-11-12 12:31] LABS: Troponin-I High Sensitivity < 3.5 ng/L (<3.5-17.0)
[2021-11-12 12:37] LABS: Bacteria Urine None Seen (None Seen); Hyaline Casts Urine 0-2 /LPF (0-2); RBC Urine 0-2 /HPF (0-2); Squamous Epithelial Cell Urine 0-2 /HPF (0-2); WBC Urine 0-5 /HPF (0-5)
[2021-11-12] MEDS: iohexoL 350 MG/ML 100 ML INFUS..BTL IV (13:06)
[2021-11-12] MEDS: Potassium Chloride Packet 20 MEQ PACKET 40 MEQ PO (13:28)
[2021-11-12 13:30] LABS: B Type Natriuretic Peptide 71 pg/mL (<100)
[2021-11-12 13:31] VITALS: BP 108/62; PULSE 60; RESP 18; TEMP 36.6; O2SAT 98
[2021-11-12 15:23] VITALS: BP 124/65; PULSE 46; RESP 16; O2SAT 96
== END 2021-11-12 16:22 | disposition home or self-care (01) ==
PROVIDERS: Physician Assistant; Emergency Provider Emergency Medicine; PCP Internal Medicine
DX: U07.1 COVID-19 (principal); R10.9 Unspecified abdominal pain; R06.02 Shortness of breath; F14.10 Cocaine abuse, uncomplicated; F17.210 Nicotine dependence, cigarettes, uncomplicated; Z71.6 Tobacco abuse counseling; Z79.899 Other long term (current) drug therapy
CPT/HCPCS: 36415; 71045; 74177; 80048; 80076; 81001; 83690; 83735; 83880; 84484; 85025; 87040; 87147; 87205; 93005; 96361; 96374; 99284; J2765; Q9967

== ENCOUNTER 2021-11-13 17:05 | Emergency (ER) | payer OTHER, SELFPAY ==
--- NOTE | ~2021-11-13 | XR_ITS ---
EXAMINATION: XR chest 1V CLINICAL INFORMATION: Reason for Exam cough/cp/covid COMPARISON: Chest radiograph 11/12/2021 TECHNIQUE: One view of the chest FINDINGS: Clear lungs. No pneumothorax or pleural effusion. Normal cardiomediastinal silhouette. XR/XR chest 1V Impression: * Clear lungs.
[2021-11-13 17:08] VITALS: BP 133/89; PULSE 101; RESP 18; TEMP 36.4; O2SAT 97; BMI 35.9
--- NOTE | 2021-11-13 17:12 | ECG_ITS ---
Test Reason : CHEST PAIN Blood Pressure : / mmHG Vent. Rate : 084 BPM Atrial Rate : 084 BPM P-R Int : 156 ms QRS Dur : 122 ms QT Int : 404 ms P-R-T Axes : 033 -08 018 degrees QTc Int : 477 ms Normal sinus rhythm Right bundle branch block Abnormal ECG When compared with ECG of 12-NOV-2021 12:04, Vent. rate has increased BY 34 BPM QRS duration has decreased Referred By: Generic ED Physician Electronically Signed By:CHELSI CORADO
[2021-11-13 17:22] LABS: MANUAL DIFF FLAG NO
[2021-11-13 17:38] LABS: Basophils Percent Auto 0.1 % (0-2); Hematocrit 38.1 % (37.0-47.0); Hemoglobin 13.5 g/dl (12.0-16.0); Imm Gran Abs Auto 0.04 X10*3/uL (0.00-0.03); Imm Gran Pct Auto 0.5 % (0.0-0.4); Lymphocytes Absolute Auto 1.4 X10*3/uL (1.2-4.9); Lymphocytes Percent Auto 16.3 % (20-40); Mean Corpuscular HGB Conc 35.4 g/dl (31.0-35.0); Mean Corpuscular Hemoglobin 30.1 pg (27.0-33.0); Monocytes Absolute Auto 0.1 X10*3/uL (0.1-1.2); Monocytes Percent Auto 1.3 % (2-11); Neutrophils Absolute Auto 6.9 x10*3/uL (2.0-8.3); Neutrophils Percent Auto 81.8 % (45-73); Platelet Count 347 X10*3/uL (160-400); Red Blood Count 4.48 X10*6/uL (4.20-5.50); Red Cell Distribution Width 11.8 % (11.0-16.0); White Blood Count 8.5 X10*3/uL (4.8-10.8)
[2021-11-13 17:43] LABS: COVID-19 Test Negative (Negative); IDNOW Serial# 16C4AD1C
[2021-11-13 17:48] LABS: Troponin-I High Sensitivity < 3.5 ng/L (<3.5-17.0)
[2021-11-13 17:53] LABS: Alanine Aminotransferase 27 U/L (0-31); Albumin Level 4.4 g/dL (3.5-5.0); Alkaline Phosphatase 96 U/L (39-117); Anion Gap 18 (12-20); Aspartate Amino Transferase 22 U/L (5-31); Bilirubin Total 0.3 mg/dL (0.0-1.0); Blood Urea Nitrogen 15 mg/dL (9-16); Calcium 10.1 mg/dL (8.4-10.2); Carbon Dioxide 25 mmol/L (22-29); Chloride 101 mmol/L (96-108); Creatinine Clr Calc Pharmacy 56.8; Estimated Glomerular Filt Rate > 60; Glucose Random 167 mg/dL (60-115); Potassium 3.5 mmol/L (3.3-5.1); Sodium 140 mmol/L (135-145); Total Protein 8.1 g/dL (6.5-8.0)
--- NOTE | 2021-11-13 21:19 | ED.RECABL ---
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 Of note the patient was seen here in the emergency room on November 12. Patient presented known COVID positive with complaints of abdominal pain nausea vomiting, lightheadedness and weakness. Some of the symptoms were thought to be secondary to her starting Paxlovid and it was recommended the patient discontinue this on discharge. During that visit the patient had labs, EKG and chest x-ray including blood cultures and she was discharged home. She has 1 of 2 blood cultures which is growing Gram-positive cocci. The 2nd is pending. Patient feels much improved versus her visit yesterday. She is asymptomatic. She denies any fevers or chills. She feels overall much better. Related Data Home Medications Medication Instructions Recorded Confirmed albuterol sulfate 90 mcg/actuation 90 mcg inhalation Q4-6H PRN 03/21/20 09/18/21 aerosol inhaler Wheezing atorvastatin 20 mg tablet 20 mg PO DAILY 03/21/20 09/18/21 clonazepam 0.5 mg tablet 0.5 mg PO DAILY PRN Anxiety 03/21/20 09/18/21 omeprazole 20 mg capsule,delayed 20 mg PO QAM 03/21/20 09/18/21 release tiotropium bromide 1.25 2 puff inhalation DAILY 03/21/20 09/18/21 mcg/actuation mist for inhalation amlodipine 2.5 mg tablet 2.5 mg PO DAILY 04/03/20 09/18/21 fluticasone propionate 50 50 mcg intranasal BID 04/03/20 09/18/21 mcg/actuation nasal spray,suspension lisinopril 10 1 tab PO DAILY 04/03/20 09/18/21 mg-hydrochlorothiazide 12.5 mg tablet metformin 500 mg tablet 500 mg PO QAM 04/03/20 09/18/21 montelukast 10 mg tablet 10 mg PO DAILY 04/03/20 09/18/21 ursodiol 250 mg tablet 750 mg PO BID 04/03/20 09/18/21 fluticasone propionate 115 2 puff inhalation BID 08/21/20 09/18/21 mcg-salmeterol 21 mcg/actuation HFA inhaler vitamin E (dl, acetate) 180 mg 180 mg PO DAILY 11/22/20 09/18/21 (400 unit) capsule trazodone 100 mg tablet 200 mg PO BEDTIME 01/04/21 09/18/21 darifenacin 15 mg tablet,extended 15 mg PO QAM 06/24/21 09/18/21 release 24 hr hydrocodone 5 mg-acetaminophen 325 1 tab PO Q8H PRN pain 06/24/21 09/18/21 mg tablet naloxone 4 mg/actuation nasal 0 spray intranasal 06/24/21 09/18/21 spray (Narcan) trazodone 150 mg tablet 300 mg PO BEDTIME 06/24/21 09/18/21 albuterol sulfate 2.5 mg/3 mL mg inhalation 10/01/21 (0.083 %) solution for nebulization pseudoephedrine HCl 30 mg tablet 30 mg PO Q12H PRN 10/01/21 (Sudogest) conjugated estrogens 0.625 mg/gram 0 mg vaginal 11/01/21 vaginal cream (Premarin) Previous Rx's Medication Instructions Recorded docusate sodium 100 mg capsule 100 mg PO BID 14 days #28 caps 11/24/20 calcium carbonate 600 mg-vitamin 1 tab PO QAM #30 tabs 06/03/21 D3 10 mcg (400 unit) tablet celecoxib 200 mg capsule 200 mg PO BID 30 days #60 caps 06/24/21 lidocaine 5 % topical patch 1 patch topical DAILY pain 30 days 06/24/21 #30 ea ondansetron 4 mg disintegrating 4 mg PO Q8H PRN nausea and 11/12/21 tablet vomiting #10 tabs Allergies Allergy/AdvReac Type Severity Reaction Status Date / Time No Known Allergies Allergy Verified 11/01/21 11:22 [No Known Allergies*] Review of Systems Review of Systems: Yes all other systems are reviewed and are negative Constitutional: Constitutional: Reports no additional constitutional complaints, Denies body ache(s), Denies chills, Denies fever(s), Denies headache(s) and Denies weakness Eyes: Eyes: Reports no additional eye complaints and Denies change in vision ENT: Reports system reviewed and no additional complaints, except as documented, Denies dizziness, Denies headache(s), Denies nasal congestion, Denies nasal discharge and Denies neck pain Cardiovascular: Cardiovascular: Reports no additional cardiovascular complaints, Denies chest pain, Denies leg edema and Denies dyspnea Respiratory: Respiratory: Reports no additional respiratory complaints, Denies cough and Denies dyspnea Gastrointestinal: Gastrointestinal: Reports no additional gastrointestinal complaints, Denies abdominal pain, Denies diarrhea, Denies nausea and Denies vomiting Genitourinary: Genitourinary: Reports no additional female genitourinary complaints and Denies urinary incontinence Musculoskeletal: Musculoskeletal: Reports no additional musculoskeletal complaints, Denies back pain, Denies arthralgias, Denies joint swelling, Denies neck pain, Denies numbness and Denies tingling Integumentary/Breasts: Skin/Breast: Reports system reviewed and no additional complaints, except as docu and Denies rash Neurologic: Reports system reviewed and no additional complaints, except as documented, Denies Abnormal speech present, Denies dizziness, Denies headache(s), Denies numbness, Denies tingling and Denies weakness PMFSH Past Medical History Attestation statement: The following information was validated with the patient. Source: old records reviewed and nursing notes reviewed Medical History Anxiety Asthma Bilateral primary osteoarthritis of knee Chronic kidney disease COVID-19 vaccine series completed Depression Elevated cholesterol Essential hypertension History of renal calculi Hx of hepatitis C Lumbar facet arthropathy JUSTIN (obstructive sleep apnea) Other chronic pain Other intervertebral disc displacement, lumbar region Renal stones Spondylosis of lumbar spine Type 2 diabetes mellitus with complication, without long-term current use of insulin Vitamin D deficiency Surgical History H/O abdominal hysterectomy H/O tubal ligation History of colonoscopy History of esophagogastroduodenoscopy (EGD) History of laryngoscopy History of total right knee replacement (TKR) Hx of arthroscopy of left knee Hx of dilation and curettage Hx of lithotripsy Hx of umbilical hernia repair S/P repair of ventral hernia Family History Family History Father Diabetes mellitus HTN (hypertension) Mother No problems noted. 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 Housing: House Are you a primary personal care aide to a significant other at home: No Do you presently have visiting nurse or other home services: Yes Alcohol intake: former Year quit: 1995 Patient Tobacco Use Status: Former Tobacco user Quit Date: 2000 Tobacco use type: Cigarette Years Smoked: 5+ Substance Use Type: Crack/Cocaine Advance Directives: No Advance Directives Information Provided: No service: No Current occupational status: retired 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 Physical Exam Vital Signs: Vital Signs: Last Vital Signs Temp 98.0 F 11/13/21 21:20 Pulse 60 11/13/21 21:20 Resp 16 11/13/21 21:20 BP 128/57 L 11/13/21 21:20 Pulse Ox 97 11/13/21 21:20 O2 Del Method 11/13/21 21:20 BMI result Body Mass Index 35.9 Const: General: cooperative, healthy appearing, comfortable and no acute distress Orientation/consciousness: patient oriented x3 Limitations: no limitations HEENT: Head: Yes normal to inspection Ears: hearing grossly normal bilaterally General nose exam: Normal external nose present Face and sinus: Yes normal facial exam Mouth: Normal oral and palatal mucosa present Throat: Yes posterior oropharynx normal Eyes: General: appearance normal, both eyes and all related structures Pupils: Equal, round and reactive pupils present Neck: Neck: Yes normal visual inspection Chest: Chest palpation & inspection: normal inspection of the chest Resp: Effort & Inspection: normal respiratory effort Auscultation: clear to auscultation bilaterally Cardio: Rate: regular rate Rhythm: regular rhythm Peripheral pulses: Peripheral pulses 2+ throughout GI: Inspection: Yes normal to inspection Palpation (GI): Soft to palpation and nontender Auscultation: normal bowel sounds Back/Spine/Pelvis: Thoracic/Lumbar Spine: thoracic and lumbar spine normal to inspection Skin: General skin exam: no rashes or lesions noted Neuro: General: patient oriented x3, no focal motor deficits and normal sensation to monofilament Cranial nerves: Yes Equal, round and reactive pupils present Cognition (Neuro): normal cognition Speech: No Abnormal speech present Gait exam (Neuro): Normal gait present Motor exam (neuro): 5/5 motor strength present throughout Extrem: General: Yes normal to inspection MDM - Recheck/Abnormal Lab/Rx MDM Narrative Medical decision making narrative: This is a 66-year-old female who was seen here yesterday who is COVID positive who had blood cultures that were sent and 1 of 2 of the bottles of blood cultures is growing Gram-positive cocci. Patient had a voicemail on her phone recommending she call back to discuss her lab results. Patient tells me she misunderstood the voicemail and brought herself to the emergency room instead. Overall she is feeling much improved. She has no symptoms. She denies any fevers or chills. We discussed the results of her blood cultures. I do believe this is likely skin contaminant. The 2nd blood culture is still pending. As the patient is feeling well with no symptoms I believe we can discharge home and follow up with her for 2nd blood culture returned back positive. Patient is agreeable with this plan of care. Medical Records Attestation: I reviewed the patient's medical records. Lab Data Attestation: I reviewed the patient's lab results. Result diagrams: 11/13/21 17:17 11/13/21 17:17 Labs: Lab Results 11/13/21 11/13/21 11/13/21 Range/Units 17:14 17:17 17:17 WBC 8.5 (4.8-10.8) X10*3/uL RBC 4.48 (4.20-5.50) X10*6/uL Hgb 13.5 (12.0-16.0) g/dl Hct 38.1 (37.0-47.0) % MCV 85.0 (80.0-98.0) fL MCH 30.1 (27.0-33.0) pg MCHC 35.4 H (31.0-35.0) g/dl RDW 11.8 (11.0-16.0) % Plt Count 347 D (160-400) X10*3/uL MPV 9.0 L (9.4-12.3) fL Immature Gran % (Auto) 0.5 H (0.0-0.4) % Neut % (Auto) 81.8 H (45-73) % Lymph % (Auto) 16.3 L (20-40) % [place] % (Auto) 1.3 L (2-11) % Eos % (Auto) 0.0 (0-4) % Baso % (Auto) 0.1 (0-2) % Lymph # (Auto) 1.4 (1.2-4.9) X10*3/uL [place] # (Auto) 0.1 (0.1-1.2) X10*3/uL Eos # (Auto) 0.0 (0.0-0.4) X10*3/uL Baso # (Auto) 0.0 (0.0-0.2) X10*3/uL Abs Immat Gran (auto) 0.04 H (0.00-0.03) X10*3/uL Absolute Neuts (auto) 6.9 (2.0-8.3) x10*3/uL Absolute Nucleated RBC 0.000 (0.0-0.012) X10*3/uL Nucleated RBC % (auto) 0.0 (0.0-0.2) /100WBC Sodium 140 (135-145) mmol/L Potassium 3.5 (3.3-5.1) mmol/L Chloride 101 (96-108) mmol/L Carbon Dioxide 25 (22-29) mmol/L Anion Gap 18 (12-20) BUN 15 (9-16) mg/dL Creatinine 0.88 (0.5-1.4) mg/dL Estim Creat Clear Calc 56.8 Estimated GFR > 60 Random Glucose 167 H (60-115) mg/dL Calcium 10.1 D (8.4-10.2) mg/dL Total Bilirubin 0.3 (0.0-1.0) mg/dL AST 22 (5-31) U/L ALT 27 (0-31) U/L Alkaline Phosphatase 96 D (39-117) U/L Troponin I High Sens (<3.5-17.0) ng/L Total Protein 8.1 H D (6.5-8.0) g/dL Albumin 4.4 D (3.5-5.0) g/dL COVID-19 ([facility]) Negative (Negative) COVID-19 Clin Com See Note 11/13/21 Range/Units 17:17 WBC (4.8-10.8) X10*3/uL RBC (4.20-5.50) X10*6/uL Hgb (12.0-16.0) g/dl Hct (37.0-47.0) % MCV (80.0-98.0) fL MCH (27.0-33.0) pg MCHC (31.0-35.0) g/dl RDW (11.0-16.0) % Plt Count (160-400) X10*3/uL MPV (9.4-12.3) fL Immature Gran % (Auto) (0.0-0.4) % Neut % (Auto) (45-73) % Lymph % (Auto) (20-40) % [place] % (Auto) (2-11) % Eos % (Auto) (0-4) % Baso % (Auto) (0-2) % Lymph # (Auto) (1.2-4.9) X10*3/uL [place] # (Auto) (0.1-1.2) X10*3/uL Eos # (Auto) (0.0-0.4) X10*3/uL Baso # (Auto) (0.0-0.2) X10*3/uL Abs Immat Gran (auto) (0.00-0.03) X10*3/uL Absolute Neuts (auto) (2.0-8.3) x10*3/uL Absolute Nucleated RBC (0.0-0.012) X10*3/uL Nucleated RBC % (auto) (0.0-0.2) /100WBC Sodium (135-145) mmol/L Potassium (3.3-5.1) mmol/L Chloride (96-108) mmol/L Carbon Dioxide (22-29) mmol/L Anion Gap (12-20) BUN (9-16) mg/dL Creatinine (0.5-1.4) mg/dL Estim Creat Clear Calc Estimated GFR Random Glucose (60-115) mg/dL Calcium (8.4-10.2) mg/dL Total Bilirubin (0.0-1.0) mg/dL AST (5-31) U/L ALT (0-31) U/L Alkaline Phosphatase (39-117) U/L Troponin I High Sens < 3.5 (<3.5-17.0) ng/L Total Protein (6.5-8.0) g/dL Albumin (3.5-5.0) g/dL COVID-19 ([facility]) (Negative) COVID-19 Clin Com Imaging Data Chest x-ray: Attestation: I personally reviewed and interpreted this imaging study as follows: Radiologist's impression: EXAMINATION: XR chest 1V CLINICAL INFORMATION: Reason for Exam cough/cp/covid COMPARISON: Chest radiograph? 11/12/2021 TECHNIQUE: One view of the chest FINDINGS: Clear lungs. No pneumothorax or pleural effusion. Normal cardiomediastinal silhouette. XR/XR chest 1V Impression: ? *? Clear lungs. ? ECG Data Attestation: I personally reviewed and interpreted this ECG as follows: ECG interpretation date: 11/13/21 ECG interpretation time: 17:20 Interpretation: Normal sinus rhythm with a rate 84, normal OK, normal QRS normal QT Discharge Plan Discharge Clinical Impression: Positive blood culture, COVID-19 Patient Disposition: Home, Self-Care Instructions: Covid-19 Viral Syndrome and Novel Coronavirus (ED) Hey/Ath Additional Instructions: Continue your home medications Return for fever Prescriptions: No Action calcium carbonate-vitamin D3 600 mg-10 mcg (400 unit) tablet 1 tab PO QAM Qty: 30 5RF vitamin E (dl, acetate) 180 mg (400 unit) capsule 180 mg PO DAILY docusate sodium 100 mg Capsule 100 mg PO BID 14 Days Qty: 28 0RF ondansetron 4 mg tablet,disintegrating 4 mg PO Q8H PRN (Reason: nausea and vomiting) Qty: 10 0RF lisinopril-hydrochlorothiazide 10-12.5 mg tablet 1 tab PO DAILY amlodipine 2.5 mg tablet 2.5 mg PO DAILY metformin 500 mg tablet 500 mg PO QAM fluticasone propionate 50 mcg/actuation spray,suspension 50 mcg intranasal BID montelukast 10 mg tablet 10 mg PO DAILY ursodiol 250 mg tablet 750 mg PO BID albuterol sulfate 90 mcg/actuation HFA aerosol inhaler 90 mcg inhalation Q4-6H PRN (Reason: Wheezing) clonazepam 0.5 mg tablet 0.5 mg PO DAILY PRN (Reason: Anxiety) atorvastatin 20 mg tablet 20 mg PO DAILY tiotropium bromide 1.25 mcg/actuation mist 2 puff inhalation DAILY omeprazole 20 mg capsule,delayed release(DR/EC) 20 mg PO QAM fluticasone propion-salmeterol 115-21 mcg/actuation HFA aerosol inhaler 2 puff inhalation BID trazodone 100 mg tablet 200 mg PO BEDTIME naloxone [Narcan] 4 mg/actuation spray,non-aerosol 0 spray intranasal darifenacin 15 mg tablet extended release 24 hr 15 mg PO QAM hydrocodone-acetaminophen 5-325 mg tablet 1 tab PO Q8H PRN (Reason: pain) trazodone 150 mg tablet 300 mg PO BEDTIME celecoxib 200 mg capsule 200 mg PO BID 30 Days Qty: 60 0RF lidocaine 5 % adhesive patch,medicated 1 patch topical DAILY 30 Days Qty: 30 0RF Rx Instructions: leave on most painful area for up to 12 hrs pseudoephedrine HCl [Sudogest] 30 mg tablet 30 mg PO Q12H PRN albuterol sulfate 2.5 mg /3 mL (0.083 %) solution for nebulization inhalation Premarin 0.625 mg/gram cream 0 mg vaginal Referrals: [facility] [Primary Care Provider] - Interventions: ED Discharge Assessment Last Done: 11/13/21 21:28 Discharge Date/Time: 11/13/21 21:28
[2021-11-13 21:20] VITALS: BP 128/57; PULSE 60; RESP 16; TEMP 36.7; O2SAT 97
--- NOTE | 2021-11-13 21:26 | PC.NURSE ---
pt was seen yesterday. provider called pt and LM for pt to call back. pt came back to ED due to this call. per provider patent did not need to come back in. VS stable at time of discharge. portfolio consultant services used as aid in communicating with pt. pt verbalized understanding of discharge instructions.
== END 2021-11-13 21:28 | disposition home or self-care (01) ==
PROVIDERS: Emergency Provider Internal Medicine
DX: U07.1 COVID-19 (principal); R07.89 Other chest pain; R79.89 Other specified abnormal findings of blood chemistry; I10 Essential (primary) hypertension; R05.9 Cough, unspecified; Z79.899 Other long term (current) drug therapy; Z87.891 Personal history of nicotine dependence
CPT/HCPCS: 71045; 80053; 84484; 85025; 87635; 93005; 99283

== ENCOUNTER 2021-12-20 08:22 | Outpatient (REF) | payer OTHER, SELFPAY ==
[2021-12-20 08:45] LABS: MANUAL DIFF FLAG NO
[2021-12-20 09:13] LABS: Basophils Percent Auto 0.5 % (0-2); Eosinophils Absolute Auto 0.5 X10*3/uL (0.0-0.4); Eosinophils Percent Auto 8.2 % (0-4); Hematocrit 36.9 % (37.0-47.0); Hemoglobin 12.6 g/dl (12.0-16.0); Imm Gran Abs Auto 0.01 X10*3/uL (0.00-0.03); Imm Gran Pct Auto 0.2 % (0.0-0.4); Lymphocytes Absolute Auto 1.9 X10*3/uL (1.2-4.9); Lymphocytes Percent Auto 31.7 % (20-40); Mean Corpuscular HGB Conc 34.1 g/dl (31.0-35.0); Mean Corpuscular Hemoglobin 30.4 pg (27.0-33.0); Mean Corpuscular Volume 88.9 fL (80.0-98.0); Mean Platelet Volume 9.2 fL (9.4-12.3); Monocytes Absolute Auto 0.3 X10*3/uL (0.1-1.2); Monocytes Percent Auto 5.2 % (2-11); Neutrophils Absolute Auto 3.2 x10*3/uL (2.0-8.3); Neutrophils Percent Auto 54.2 % (45-73); Platelet Count 255 X10*3/uL (160-400); Red Blood Count 4.15 X10*6/uL (4.20-5.50)
[2021-12-20 09:28] LABS: Anion Gap 16 (12-20); Blood Urea Nitrogen 15 mg/dL (9-16); Calcium 9.2 mg/dL (8.4-10.2); Carbon Dioxide 25 mmol/L (22-29); Chloride 102 mmol/L (96-108); Estimated Glomerular Filt Rate > 60; Potassium 3.9 mmol/L (3.3-5.1); Sodium 139 mmol/L (135-145); Uric Acid 4.9 mg/dL (2.4-5.7)
[2021-12-20 09:52] LABS: Creatinine Urine 71.86 mg/dL; Microalbum/Creatinine Ratio Ur 6.9 ug/mg cr
[2021-12-20 09:56] LABS: Vitamin D 25-OH Total 37.3 ng/mL (>30)
[2021-12-20 12:04] LABS: Appearance Urine Clear; Color Urine Yellow; Glucose Urine UA Negative (Negative); Leukocyte Esterase Urine Trace (Negative); Nitrite Urine Negative (Negative); UMIC TRIGGER UA YES; Urine Blood Negative (Negative); Urine Ketones Negative (Negative); Urine Protein Negative (Neg-Trace)
[2021-12-20 12:08] LABS: Bacteria Urine None Seen (None Seen); Hyaline Casts Urine 0-2 /LPF (0-2); RBC Urine 0-2 /HPF (0-2); Squamous Epithelial Cell Urine 0-2 /HPF (0-2); WBC Urine 0-5 /HPF (0-5)
[2021-12-22 13:31] LABS: PTHI 51 pg/mL (16-77)
== END 2021-12-20 08:23 | disposition home or self-care (01) ==
LOC: HO.LAB 08:22
PROVIDERS: Nurse Practitioner Family; PCP Internal Medicine; Visit Provider Physician Assistant
DX: N18.31 Chronic kidney disease, stage 3a (principal); E55.9 Vitamin D deficiency, unspecified
CPT/HCPCS: 36415; 80051; 81001; 82043; 82306; 82310; 82565; 83970; 84520; 84550; 85025

== ENCOUNTER 2022-01-03 08:30 | Day surgery (SDC) | payer OTHER, SELFPAY ==
--- NOTE | 2022-01-02 13:01 | HO.ANESPROP2 ---
Documented by User: Glendy Osorio NP 01/02/22 13:04 HPI - Anesthesia Eval Consult details Narrative: 66yo F for Right Genicular Nerve Cool RFA hx substance use PMFSH Active Problems Active Problems: All Active Problems (Updated 12/11/21 @ 09:00 by Armida Gauthier, RN) Primary osteoarthritis of right knee (Acute) Other and unspecified hyperlipidemia (Acute) History of renal calculi (Acute) Chest pain (Acute) Preop cardiovascular exam (Acute) Status post total right knee replacement (Acute) Low back pain (Acute) Localized osteoarthritis of left knee (Acute) Iliotibial band tendonitis of right side (Acute) Hamstring tightness of both lower extremities (Acute) Right knee pain (Acute) Chronic pain syndrome (Acute) Right bundle branch block (RBBB) determined by electrocardiography (Acute) COVID-19 (Acute) COVID-19 (Acute) COVID-19 (Acute) Past Medical History Medical History (Updated 12/11/21 @ 09:00 by Armida Gauthier, RN) Anxiety Asthma Bilateral primary osteoarthritis of knee Chronic kidney disease COVID-19 vaccine series completed Depression Elevated cholesterol Essential hypertension History of COVID-19 History of renal calculi Hx of hepatitis C Lumbar facet arthropathy JUSTIN (obstructive sleep apnea) Other chronic pain Other intervertebral disc displacement, lumbar region RBBB Renal stones Spondylosis of lumbar spine Type 2 diabetes mellitus with complication, without long-term current use of insulin Vitamin D deficiency Family History Family History Father Diabetes mellitus HTN (hypertension) Mother No problems noted. 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 Housing: House Are you a primary career technical education teacher to a significant other at home: No Do you presently have visiting nurse or other home services: Yes Alcohol intake: former Year quit: 1995 Patient Tobacco Use Status: Former Tobacco user Quit Date: 2001 Tobacco use type: Cigarette Years Smoked: 5+ Use of substances other than those prescribed or required for medical reasons: Yes Substance Use Type: Crack/Cocaine Are you DNR?: No Advance Directives: No Advance Directives Information Provided: Yes Patient : No service: No Current occupational status: retired 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 Meds Allergies Allergy/AdvReac Type Severity Reaction Status Date / Time No Known Allergies Allergy Verified 11/01/21 11:22 [No Known Allergies*] Home Medications Medication Instructions Recorded Confirmed Last Taken Type albuterol sulfate 90 mcg/actuation 90 mcg inhalation Q4-6H PRN 03/21/20 12/11/21 Unknown History aerosol inhaler Wheezing atorvastatin 20 mg tablet 20 mg PO DAILY 03/21/20 12/11/21 11/21/20 07:00 History clonazepam 0.5 mg tablet 0.5 mg PO DAILY PRN Anxiety 03/21/20 12/11/21 Unknown History omeprazole 20 mg capsule,delayed 20 mg PO QAM 03/21/20 12/11/21 11/21/20 07:00 History release tiotropium bromide 1.25 2 puff inhalation DAILY 03/21/20 12/11/21 11/21/20 07:00 History mcg/actuation mist for inhalation amlodipine 2.5 mg tablet 2.5 mg PO DAILY 04/03/20 12/11/21 11/21/20 07:00 History fluticasone propionate 50 50 mcg intranasal BID 04/03/20 12/11/21 Unknown History mcg/actuation nasal spray,suspension lisinopril 10 1 tab PO DAILY 04/03/20 12/11/21 Unknown History mg-hydrochlorothiazide 12.5 mg tablet metformin 500 mg tablet 500 mg PO QAM 04/03/20 09/18/21 11/21/20 07:00 History montelukast 10 mg tablet 10 mg PO DAILY 04/03/20 12/11/21 Unknown History ursodiol 250 mg tablet 750 mg PO BID 04/03/20 12/11/21 11/21/20 07:00 History fluticasone propionate 115 2 puff inhalation BID 08/21/20 12/11/21 11/21/20 07:00 History mcg-salmeterol 21 mcg/actuation HFA inhaler vitamin E (dl, acetate) 180 mg 180 mg PO DAILY 11/22/20 12/11/21 Unknown History (400 unit) capsule darifenacin 15 mg tablet,extended 15 mg PO QAM 06/24/21 12/11/21 Unknown History release 24 hr hydrocodone 5 mg-acetaminophen 325 1 tab PO Q8H PRN pain 06/24/21 12/11/21 Unknown History mg tablet naloxone 4 mg/actuation nasal 0 spray intranasal 06/24/21 09/18/21 Unknown History spray (Narcan) trazodone 150 mg tablet 300 mg PO BEDTIME 06/24/21 12/11/21 Unknown History albuterol sulfate 2.5 mg/3 mL mg inhalation 10/01/21 Unknown History (0.083 %) solution for nebulization conjugated estrogens 0.625 mg/gram 0 mg vaginal 11/01/21 Unknown History vaginal cream (Premarin) Exam Exam Date and Time: January 02, 2022 1301 Narrative Narrative: EKG 10/2021 Vent. Rate : 084 BPM ? ? Atrial Rate : 084 BPM ?? P-R Int : 156 ms? QRS Dur : 122 ms ? ? QT Int : 404 ms ? ? ? P-R-T Axes : 033 -08 018 degrees ?? QTc Int : 477 ms ? Normal sinus rhythm Right bundle branch block Abnormal ECG When compared with ECG of 12-NOV-2021 12:04, Vent. rate has increased BY? 34 BPM QRS duration has decreased ECHO 10/2021 Conclusions: - The left ventricular systolic function is normal.? The visually estimated ejection fraction is between 55-60%. ? - There is mild mitral annular calcification.? NM arleth perf SPECT rest & str 09/2021 Impression: ? 1.? Myocardial perfusion imaging study shows likely normal myocardial perfusion 2.? Gated LVEF is 70% 3. Transient ischemic dilatation not present ? EKG is nondiagnostic for ischemia ? Assessment and Plan Assessment Anesthesia Assessment: Chart Reviewed Final Anesthetic Review Family History of Problems with Anesthesia: No History of Problems with Anesthesia: No Documented by User: Nel Coughlin MD 01/03/22 10:59 PMFSH Past Medical History Medical History (Updated 12/11/21 @ 09:00 by Armida Gauthier RN) Anxiety Asthma Bilateral primary osteoarthritis of knee Chronic kidney disease COVID-19 vaccine series completed Depression Elevated cholesterol Essential hypertension History of COVID-19 History of renal calculi Hx of hepatitis C Lumbar facet arthropathy JUSTIN (obstructive sleep apnea) Other chronic pain Other intervertebral disc displacement, lumbar region RBBB Renal stones Spondylosis of lumbar spine Type 2 diabetes mellitus with complication, without long-term current use of insulin Vitamin D deficiency Functional capacity: uses cane/walker Patient : No Family History Family History Father Diabetes mellitus HTN (hypertension) Mother No problems noted. 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: House Are you a primary career technical education teacher to a significant other at home: No Do you presently have visiting nurse or other home services: Yes Alcohol intake: former Year quit: 1995 Patient Tobacco Use Status: Former Tobacco user Quit Date: 2001 Tobacco use type: Cigarette Years Smoked: 5+ Use of substances other than those prescribed or required for medical reasons: Yes Substance Use Type: Crack/Cocaine Are you DNR?: No Advance Directives: No Advance Directives Information Provided: Yes Patient : No service: No Current occupational status: retired 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 Meds Allergies Allergy/AdvReac Type Severity Reaction Status Date / Time No Known Allergies Allergy Verified 11/01/21 11:22 [No Known Allergies*] Home Medications Medication Instructions Recorded Confirmed Last Taken Type albuterol sulfate 90 mcg/actuation 90 mcg inhalation Q4-6H PRN 03/21/20 12/11/21 Unknown History aerosol inhaler Wheezing atorvastatin 20 mg tablet 20 mg PO DAILY 03/21/20 12/11/21 11/21/20 07:00 History clonazepam 0.5 mg tablet 0.5 mg PO DAILY PRN Anxiety 03/21/20 12/11/21 Unknown History omeprazole 20 mg capsule,delayed 20 mg PO QAM 03/21/20 12/11/21 11/21/20 07:00 History release tiotropium bromide 1.25 2 puff inhalation DAILY 03/21/20 12/11/21 11/21/20 07:00 History mcg/actuation mist for inhalation amlodipine 2.5 mg tablet 2.5 mg PO DAILY 04/03/20 12/11/21 11/21/20 07:00 History fluticasone propionate 50 50 mcg intranasal BID 04/03/20 12/11/21 Unknown History mcg/actuation nasal spray,suspension lisinopril 10 1 tab PO DAILY 04/03/20 12/11/21 Unknown History mg-hydrochlorothiazide 12.5 mg tablet metformin 500 mg tablet 500 mg PO QAM 04/03/20 09/18/21 11/21/20 07:00 History montelukast 10 mg tablet 10 mg PO DAILY 04/03/20 12/11/21 Unknown History ursodiol 250 mg tablet 750 mg PO BID 04/03/20 12/11/21 11/21/20 07:00 History fluticasone propionate 115 2 puff inhalation BID 08/21/20 12/11/21 11/21/20 07:00 History mcg-salmeterol 21 mcg/actuation HFA inhaler vitamin E (dl, acetate) 180 mg 180 mg PO DAILY 11/22/20 12/11/21 Unknown History (400 unit) capsule darifenacin 15 mg tablet,extended 15 mg PO QAM 06/24/21 12/11/21 Unknown History release 24 hr hydrocodone 5 mg-acetaminophen 325 1 tab PO Q8H PRN pain 06/24/21 12/11/21 Unknown History mg tablet naloxone 4 mg/actuation nasal 0 spray intranasal 06/24/21 09/18/21 Unknown History spray (Narcan) trazodone 150 mg tablet 300 mg PO BEDTIME 06/24/21 12/11/21 Unknown History albuterol sulfate 2.5 mg/3 mL mg inhalation 10/01/21 Unknown History (0.083 %) solution for nebulization conjugated estrogens 0.625 mg/gram 0 mg vaginal 11/01/21 Unknown History vaginal cream (Premarin) Exam Airway Mallampati Class: III TM Dist: >3cm Neck ROM: Full Denture: Upper and Lower Heart: RRR Lungs: CTA Assessment and Plan Final Anesthetic Review ASA Class: III Final Preanesthetic Review: No Changes in Pt Med Stat, Meds/Allgs Chart Reviewed, Consent Obtained/Reviewed and Anes Risks/Benef Reviewed Patient Risk: Intermediate Procedure Risk: Low Anesthetic Plan Anesthetic Plan: MAC: Disposition: Standard PACU
--- NOTE | ~2022-01-03 | FL_ITS ---
EXAMINATION: XR FLUOROSCOPY WITH IMAGES CLINICAL INFORMATION: Knee pain. Geniculate are nerve cool RFA. COMPARISON: Radiographs right knee 08/16/2021 TECHNIQUE: Fluoroscopy performed by Dr. Lauro Sen. Fluoroscopy time: 0.2 minutes. Cumulative Dose: 1.45 mGy. DAP: 0.353 Gycm2. Images: 1. FINDINGS: There are 2 needles/electrodes overlying the distal femoral shaft mid depth. There is a needle/electrode overlying the proximal tibia, mid depth. There is been prior total knee arthroplasty. Hardware unremarkable. FL/FL guidance in OR IMPRESSION: Fluoroscopy for pain management procedures.
[2022-01-03 08:51] VITALS: BMI 37.6
[2022-01-03 09:02] VITALS: BP 141/60; PULSE 53; RESP 18; TEMP 36.1; O2SAT 98
[2022-01-03 09:04] LABS: Glucose, Whole Blood 105 mg/dL (60-115)
[2022-01-03] MEDS: Lactated Ringers 1,000 ML 100 ML IVCONT (09:17)
[2022-01-03 09:28] LABS: Amphetamine Screen Urine POSITIVE (Not Detect); Barbiturates, Urine Not Detected (Not Detect); Benzodiazepines Screen Urine Not Detected (Not Detect); Cannabinoid Screen Urine Not Detected (Not Detect); Cocaine Screen Urine Not Detected (Not Detect); Fentanyl, urine POSITIVE (Not Detect); Opiate Screen Urine Not Detected (Not Detect); Phencyclidine Screen Urine Not Detected (Not Detect)
--- NOTE | 2022-01-03 09:45 | P.OP_ITS ---
Operative Note Operative Note Date of Service: 01/03/22 Narrative: GENICULAR NERVES COOLED RADIOFREQUENSY ABLATION. ?Informed consent was explained to the patient. All questions were explained and answered. The patient was taken inside the operating room. The patient was positioned supine on operating table with her?right?leg elevated on a gel bin. ASA monitors were applied and the patieient was?deeply?sedated. ? Time-out was performed delineating correct site, side, the nature of the procedure, patient's allergy, preoperative antibiotic if needed. All operating room staff was participating in OR time-out procedure. C-arm was brought over the operating field and picture of the?right?knee was demonstrated on the screen. Anterolateral and anteromedial surfaces of the knee were prepped with chloroprep and draped with utility towels. ?The point of interest were delineated for: superior lateral genicular nerve as the confluence of the metaphysis of the? femur with corresponding diaphysis on the lateral silhouette of the femur distal bone, ? For superior medial genicular nerve (suprapatelar saphenous nerve) the point of interest was delineated as the confluence of the silhouette of the metaphysis of the femur with corresponding diaphysis on the medial silhouette on the femoral distal bone. ?For inferior medial genicular nerve ( Infrapatellar saphenous nerve) the point of interest was delineated as the confluence of metaphysis of the proximal tibia on the medial side with corresponding diaphysis of the same bone. ?The projections of the points of interest on anterior surface of the?right?knee was injected with small amount of lidocaine 2% 1-to 2 ml. After that 3 cooled radiofrequency canulas?50 mm long?were driven to? the point of interest in tunnel vision fashion. When needles gently contacted the bones the position of the C-arm was switched to the lateral view, care was taken to superimpose the th e femoral condyles of the prostesis one over the other. The position of the canulas were adjusted to assure that the tip of the canulas are located at the mid shaft of each of the above described bones. ?After that small amount of mixture of lidocaine 0.5% mixed with ropivacaine? 0.5%? and a trace amount of kenalog was injected into each canula position.? total amount of local anesthetics was 4.5 cc.? The cooled RFA machine was connected to the canulas in usual fashion and energy applied with temperature of the canulas of 60 degrees C, for the 2.5 minutes. When energy application was completed the canulas were removed and sterile dressing was applied. ?Patient? was awaken and went to PACU where she recovered uneventfully.
--- NOTE | 2022-01-03 09:46 | MHC.SHP ---
Pre-Procedural Eval Section A Date of Service: 01/03/22 The patient is an INPATIENT: No Changes since office visit: Yes Patient answered all questions The History & Physical has been completed within 30 days and I have reviewed it.: No Section B Chief Complaint: Pain in right knee,Unilateral primary osteoarthrit Details of Present Illness: Pain in right knee,Unilateral primary osteoarthritis s/p TKR right Relevant Family History (Specify if Yes): No Relevant Social History: None Present Medications: None Medical History: No relevant PMH History of Previous Operations: Relevant previous surgery/procedure and date(s) Allergies: Allergies Allergy/AdvReac Type Severity Reaction Status Date / Time No Known Allergies Allergy Verified 11/01/21 11:22 [No Known Allergies*] Review of Systems Sugical H&P ROS: Negative: Constitution, Cardiovascular, Respiratory, Neurological, Psychiatric, Hem-Onc, Allergic/Immunologic, Gastrointestinal, Genitourinary, Musculoskeletal, Integumentary, Endocrine and Eyes/Ears/Nose/Throat Exam Surgical H&P Exam: Normal: HEENT, Normal: Heart, Normal: Lungs, Normal: Abdomen, Normal: Skin and Normal: Neurological and Significant Findings: Extremities (well healed scar on aterior surface of the right hip.) Plan Diagnosis/Plan: Unchanged I have reviewed the history and physical and performed a pertinent physical examination on my patient. No changes have occurred unless specified.
--- NOTE | 2022-01-03 10:24 | PC.NURSE ---
Anesthesia Dr Hposon aware of positive toxicology screen, for fentanyl & amphetamines. Per Dr Hopson, okay to proceed.
--- NOTE | 2022-01-03 10:24 | PM.OP ---
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
[2022-01-03 11:14] VITALS: BP 127/64; PULSE 61; RESP 16; TEMP 36.1; O2SAT 97
[2022-01-03 11:29] VITALS: BP 140/73; PULSE 66; RESP 16; O2SAT 95
[2022-01-03] MEDS: Acetaminophen 325 MG TABLET 650 MG PO (11:31)
[2022-01-03 11:44] VITALS: BP 133/68; PULSE 58; RESP 16; TEMP 36.1; O2SAT 96
--- NOTE | 2022-01-03 12:42 | HO.POSTANES ---
Post Anesthesia Evaluation Post Anesthesia Evaluation Vital Signs: Vital Signs Temp Pulse Resp BP Pulse Ox O2 Del Method O2 Flow Rate 01/03/22 11:44 97.0 F 58 16 133/68 96 Room Air 01/03/22 11:29 66 16 140/73 H 95 Room Air 01/03/22 11:14 97.0 F 61 16 127/64 97 Simple Mask 4 01/03/22 09:02 96.9 F 53 18 141/60 H 98 Room Air Anesthesia: Monitored Mental Status: Awake Pain Control: Satisfactory Nausea/Vomiting: None Hydration: Adequate Anesthesia-Related Issues: No Anes. Related Issues
== END 2022-01-03 12:20 | disposition home or self-care (01) ==
PROVIDERS: Nurse Practitioner; PCP Internal Medicine; Visit Provider Anesthesiology
PROC: (CPT 64624; principal; 2022-01-03 11:00)
DX: M25.561 Pain in right knee (principal); M17.11 Unilateral primary osteoarthritis, right knee; G89.4 Chronic pain syndrome; Z96.651 Presence of right artificial knee joint; J45.909 Unspecified asthma, uncomplicated; E11.22 Type 2 diabetes mellitus with diabetic chronic kidney disease; I12.9 Hypertensive chronic kidney disease with stage 1 through stage 4 chronic kidney disease, or unspecified chronic kidney disease; N18.9 Chronic kidney disease, unspecified; Z87.891 Personal history of nicotine dependence
CPT/HCPCS: 64624; 80307; 82947; J0690; J2250; J3010; J3300

== ENCOUNTER 2022-01-22 09:00 | Outpatient (RCR) | payer OTHER, SELFPAY | END 2022-02-26 09:48 | disposition home or self-care (01) | LOC: HO.PT 09:00 | PROVIDERS: PCP Internal Medicine; Visit Provider Internal Medicine | DX: M25.561 Pain in right knee (principal) | CPT/HCPCS: 97110; 97140; 97162; 97530 ==

== ENCOUNTER → 2022-02-05 09:15 | Outpatient (BNVA) | payer OTHER, SELFPAY | PROVIDERS: PCP Internal Medicine; Visit Provider Anesthesiology | DX: M17.11 Unilateral primary osteoarthritis, right knee (principal); M17.12 Unilateral primary osteoarthritis, left knee; G89.4 Chronic pain syndrome; Z96.651 Presence of right artificial knee joint; M25.561 Pain in right knee | CPT/HCPCS: 99212 ==

== ENCOUNTER 2022-02-05 10:39 | Outpatient (REF) | payer OTHER, SELFPAY ==
[2022-02-05 14:26] LABS: Alanine Aminotransferase 30 U/L (0-31); Albumin Level 4.2 g/dL (3.5-5.0); Alkaline Phosphatase 87 U/L (39-117); Anion Gap 15 (12-20); Aspartate Amino Transferase 26 U/L (5-31); Bilirubin Total 0.3 mg/dL (0.0-1.0); Blood Urea Nitrogen 14 mg/dL (9-16); Calcium 9.6 mg/dL (8.4-10.2); Carbon Dioxide 27 mmol/L (22-29); Chloride 99 mmol/L (96-108); Estimated Glomerular Filt Rate > 60; Glucose Random 137 mg/dL (60-115); Sodium 137 mmol/L (135-145); Total Protein 7.4 g/dL (6.5-8.0)
== END 2022-02-05 10:40 | disposition home or self-care (01) ==
LOC: HO.10HDL 10:39
PROVIDERS: Visit Provider Nurse Practitioner Family
DX: M17.11 Unilateral primary osteoarthritis, right knee (principal)
CPT/HCPCS: 36415; 80053

== ENCOUNTER 2022-02-16 09:25 | Emergency (ER) | payer OTHER, SELFPAY ==
--- NOTE | ~2022-02-16 | XR_ITS ---
EXAMINATION: XR SHOULDER, RIGHT CLINICAL INFORMATION: Right shoulder pain. COMPARISON: 02/24/2018 TECHNIQUE: Three views of the right shoulder. FINDINGS: There is mild acromioclavicular osteoarthritis. Glenohumeral joint is well preserved. No fracture. Alignment is anatomic. Soft tissues are normal with no abnormal calcifications. XR/XR shoulder RT min 2V IMPRESSION: Mild acromioclavicular osteoarthritis. No acute osseous findings.
[2022-02-16 09:58] VITALS: BP 133/69; PULSE 78; RESP 16; TEMP 35.7; O2SAT 97; BMI 38.0
--- NOTE | 2022-02-16 11:27 | ECG_ITS ---
Test Reason : RIGHT ARM PAIN Blood Pressure : / mmHG Vent. Rate : 065 BPM Atrial Rate : 065 BPM P-R Int : 164 ms QRS Dur : 128 ms QT Int : 462 ms P-R-T Axes : 023 -04 019 degrees QTc Int : 480 ms Normal sinus rhythm Right bundle branch block Abnormal ECG When compared with ECG of 13-NOV-2021 17:20, No significant change was found Heart rate has decreased Referred By: Vane Garcia Electronically Signed By:ADRIA COFFEY MD
--- OUTSIDE RECORDS SUMMARY | 2022-02-16 11:28 | XMS_ITS | Continuity of Care Document ---
:1955 Author Organization [facility] Address [address] [place] [id number] Care Team Providers Name Role Phone True VILLALOBOS, Nandini Perez [id number] Date(s): 05/03/21 - 06/08/[address] [id number] Attending Physician: Trinidad Silver NP Admitting Physician: Adrianne VILLALOBOS, Trinidad Martínez Referring Physician: Adrianne VILLALOBOS, Trinidad Martínez Allergies, Adverse Reactions, Alerts No Known Allergies Medications Acetaminophen 1000mgs, By Mouth, 3 times a day, PRN as needed for pain, 0 Refills, Maintenance, 12/01/12 11:40:28 Start Date: 12/01/12 Status: OrderedAdvair HFA 115 mcg / 21 mcg 2 puffs, Inhalation, 2 times a day, rinse mouth and throat after use, j44.9, # 1 each, 5 Refills, Maintenance, 12/24/20 13:49:00 EDT, Aerosol, [facility], 2 puffs Inhalation 2 timesa day,Instr:rinse mouth and throat after use, j44... Start Date: 12/24/20 Status: OrderedAerochamber See Instructions, # 1 each, Maintenance, use with inhaler, 12/01/12 11:31:23, Compound Start Date: 12/01/12 Status: Orderedalbuterol 0.083% inhalation solution 3 mL = 2.5 mg, Inhalation, Every 6 hours, PRN, 0 Refills, Maintenance Start Date: 12/01/12 Status: OrderedAspirin = 81 mg, Daily, 0 Refills, Maintenance Start Date: 12/01/12 Status: Orderedatorvastatin 20 mg oral tablet 1 tablet = 20 mg, By Mouth, Daily, 0 Refills, Maintenance, 12/20/18 9:17:30 EDT Start Date: 12/20/18 Status: OrderedCalcium 600 +D oral tablet 1 tablet, By Mouth, Daily, 0 Refills, Maintenance Start Date: 12/01/12 Status: OrderedclonazePAM 0.5 mg oral tablet 1 tablet = 0.5 mg, By Mouth, Daily, 0 Refills, Maintenance, 08/09/15 14:35:41 EDT, Tablet Start Date: 08/09/15 Status: Ordereddarifenacin 15 mg oral tablet, extended release 1 tablet = 15 mg, By Mouth, Daily, # 30 tablet, 11 Refills, Maintenance, 02/19/21 15:58:00 EST, ER Tablet, [facility], 147.32, cm, 06/07/19 11:19:00 EDT, Height, 84.5, kg, 06/07/19 11:19:00 EDT, Dry Weight Start Date: 02/19/21 Status: OrderedDiabetic Tuss = 100 mg, By Mouth, Every 4 hours, 0 Refills, Maintenance, 08/09/15 14:39:03 Start Date: 08/09/15 Status: OrderedFlonase 50 mcg/inh nasal spray Daily, 0 Refills, Maintenance, 12/20/18 9:12:48 EDT Start Date: 12/20/18 Status: Orderedhydrochlorothiazide-lisinopril 12.5 mg-10 mg oral tablet 1 tablet, By Mouth, Daily, # 30 tablet, 0 Refills, Maintenance, 08/09/15 14:36:59, Tablet Start Date: 08/09/15 Status: OrderedHydrocodone 5mg/325mgs, By Mouth, 3 times a day, PRN Pain , Moderate, 0 Refills, Maintenance, 09/07/13 11:15:53 Start Date: 09/07/13 Status: Orderedibuprofen 600 mg oral tablet 1 tablet = 600 mg, By Mouth, Every 8 hours, # 40 tablet, 0 Refills, Maintenance, 09/19/13 16:12:34, Tablet Start Date: 09/19/13 Status: OrderedLidocaine 5% patch, 0 Refills, Maintenance, 12/20/18 9:16:33 EDT Start Date: 12/20/18 Status: Orderedloratadine 10 mg oral capsule 1 capsule = 10 mg, By Mouth, Daily, # 10 capsule, 0 Refills, Maintenance, Capsule Start Date: 12/01/12 Status: OrderedMetformin = 500 mg, By Mouth, Daily, 0 Refills, Maintenance, 12/01/12 11:40:00 Start Date: 12/01/12 Status: OrderedMiraLax oral powder for reconstitution = 17 Gm, By Mouth, Daily, dissolve in water before taking, # 255 Gm, 0 Refills, Maintenance, 08/09/15 14:36:04, REC Powder Start Date: 08/09/15 Status: OrderedPrevnar 13 intramuscular suspension 0.5 mL, Intramuscular, Once, # 1 each, 0 Refills, Maintenance, 08/09/15 14:37:57, Suspension Start Date: 08/09/15 Status: OrderedProAir HFA 90 mcg/inh inhalation aerosol with adapter 2, puffs, Inhalation, Every 4 hours, PRN, # 8.5 Gm, Refills 0, Tot. Refills 0, Maintenance, :29:34 EDT, Aerosol, Route to Pharmacy Electronically, [id number], [facility] - Start Date: 12/20/18 Status: OrderedSingulair 10 mg oral tablet 1 tablet = 10 mg, By Mouth, Daily before dinner, 0 Refills, Maintenance Start Date: 12/01/12 Status: OrderedSingulair 10 mg oral tablet 10 mg, 1, tablet, By Mouth, Daily, # 30 tablet, Refills 5, Tot. Refills 5, Maintenance, 03/14/21 11:36:00 EST, Route to Pharmacy Electronically, [facility], 147.32, cm, 06/07/19 11:19:00 EDT, Height, 84.5, kg, 06/07/19 11:19:00 EDT... Start Date: 03/14/21 Status: OrderedSpiriva Respimat 1.25 mcg/inh inhalation aerosol 2 puffs, Inhalation, Daily, j44.9, # 1 each, 5 Refills, Maintenance, 03/13/21 15:38:00 EST, Aerosol,[facility], 147.32, cm, 06/07/19 11:19:00 EDT, Height, 84.5, kg, 06/07/19 11:19:00 EDT, Dry Weight Start Date: 03/13/21 Status: OrderedtraZODone 150 mg oral tablet By Mouth, Daily, 0 Refills, Maintenance, 12/20/18 9:18:38 EDT Start Date: 12/20/18 Status: OrderedTrazodone Tablet 300 mg, By Mouth, Daily at bedtime, Maintenance, 12/01/12 11:35:56 Start Date: 12/01/12 Status: Orderedursodiol 250 mg oral tablet See Instructions, 3 tabs 2xday, 0 Refills, Maintenance, 12/01/12 11:37:34 Start Date: 12/01/12 Status: OrderedVitamin D3 See Instructions, 1000i.u By Mouth daily, 0 Refills, Maintenance Start Date: 12/01/12 Status: OrderedVitamin E = 400 International_Units, By Mouth, Daily, 0 Refills, Maintenance, 09/07/13 11:21:17 Start Date: 09/07/13 Status: OrderedVitamin E By Mouth, Daily, 0 Refills, Maintenance, 10/06/18 15:58:35 EDT Start Date: 10/06/18 Status: Ordered Problem List Condition Effective Dates Status Health Status Informant Asthma(Confirmed) Active Urinary incontinence(Confirmed) Active Social History Social History Type Response Smoking Status Former smoker entered on: 01/23/15 Sex
--- OUTSIDE RECORDS SUMMARY | 2022-02-16 11:28 | XMS_ITS | Continuity of Care Document ---
:1955 Author Organization [facility] Address [address] [place] [id number]- Care Team Providers Name Role Phone Nandini Biswas NP, V Primary Care Physician [facility] [id number] Date(s): 09/26/21 - 10/26/[address] [id number] Attending Physician: Jose Shea Admitting Physician: Jose Shea Referring Physician: Jose Shea Allergies, Adverse Reactions, Alerts No Known Allergies Medications Acetaminophen 1000mgs, By Mouth, 3 times a day, PRN as needed for pain, 0 Refills, Maintenance, 12/01/12 11:40:28 Start Date: 12/01/12 Status: OrderedAdvair HFA 115 mcg / 21 mcg 2 puffs, Inhalation, 2 times a day, rinse mouth and throat after use, j44.9, # 1 each, 5 Refills, Maintenance, 12/24/20 13:49:00 EDT, Aerosol, [facility], 2 puffs Inhalation 2 timesa [...] Gm, Refills 0, Tot. Refills 0, Maintenance, 199:29:34 EDT, Aerosol, Route to Pharmacy Electronically, [id number], [facility] - Start Date: 12/20/18 Status: OrderedSingulair 10 mg oral tablet 1 tablet = 10 mg, By Mouth, Daily before dinner, 0 Refills, Maintenance Start Date: 12/01/12 Status: OrderedSingulair 10 mg oral tablet 10 mg, 1, tablet, By Mouth, Daily, # 30 tablet, Refills 3, Tot. Refills 3, Maintenance, 09/11/21 11:41:00 EDT, Route to Pharmacy Electronically, [facility] Start Date: 09/11/21 Status: OrderedSpiriva Respimat 1.25 mcg/inh inhalation aerosol 2 puffs, Inhalation, Daily, j44.9, # 1 each, 6 Refills, Maintenance, 10/14/21 16:00:00 EDT, Aerosol,[facility] Start Date: 10/14/21 Status: OrderedtraZODone 150 mg oral tablet By [...]
--- OUTSIDE RECORDS SUMMARY | 2022-02-16 11:28 | XMS_ITS | Continuity of Care Document ---
:1955 Author Organization [facility] Grou Address [address] [place] [address], [address] [place] [address]- Care Team Providers Name Role Phone True VILLALOBOS, Nandini Perez [id number] Date(s): 02/19/21 - 03/21/21 [facility] Paulo [address] [address] Allergies, Adverse Reactions, Alerts Substance Reaction Severity Status NKA Active Medications Acetaminophen 1000mgs, By Mouth, 3 times a day, PRN as needed for pain, 0 Refills, Maintenance, 12/01/12 11:40:28 Start Date: 12/01/12 Status: OrderedAdvair HFA 115 mcg / 21 mcg 2 puffs, Inhalation, 2 times a day, rinse mouth and throat after use, j44.9, # 1 each, 5 Refills, Maintenance, 12/24/20 13:49:00 EDT, Aerosol, [facility], 2 puffs Inhalation 2 timesa day,Instr:rinse [...] Refills, Maintenance, 02/19/21 15:58:00 EST, ER Tablet, [facility], 147.32, cm, 06/07/19 11:19:00 EDT, [...] 199:29:34 EDT, Aerosol, Route to Pharmacy Electronically, [id number], [facility] - Start Date: 12/20/18 Status: OrderedSingulair 10 mg oral tablet 1 tablet = 10 mg, By Mouth, Daily before dinner, 0 Refills, Maintenance Start Date: 12/01/12 Status: OrderedSingulair 10 mg oral tablet 10 mg, 1, tablet, By Mouth, Daily, # 30 tablet, Refills 5, Tot. Refills 5, Maintenance, 03/14/21 11:36:00 EST, Route to Pharmacy Electronically, [facility], 147.32, cm, 06/07/19 11:19:00 EDT, Height, 84.5, kg, 06/07/19 11:19:00 EDT... Start Date: 03/14/21 Status: OrderedSpiriva Respimat 1.25 mcg/inh inhalation aerosol 2 puffs, Inhalation, Daily, j44.9, # 1 each, 5 Refills, Maintenance, 03/13/21 15:38:00 EST, Aerosol,[facility], 147.32, cm, 06/07/19 11:19:00 EDT, Height, [...]
--- OUTSIDE RECORDS SUMMARY | 2022-02-16 11:28 | XMS_ITS | Continuity of Care Document ---
:1955 Author Organization [facility] Address [address] [place] [address]- Care Team Providers Name Role Phone True VILLALOBOS, Nandini Perez Primary Care Physician Encounter [facility] Date(s): 03/28/20 - 04/27/20 [facility] [address] [place] [id number] Allergies, Adverse Reactions, Alerts Substance Reaction Severity Status NKA Active Medications Acetaminophen 1000mgs, By Mouth, 3 times a day, PRN as needed for pain, 0 Refills, Maintenance, 12/01/12 11:40:28 Start Date: 12/01/12 Status: OrderedAdvair HFA 115 mcg / 21 mcg 2 puffs, Inhalation, 2 times a day, rinse mouth and throat after use, # 1 each, 6 Refills, Maintenance, 06/23/19 10:49:00 EDT, Aerosol, [facility], 2 puffs Inhalation 2 times a day,Instr:rinse mouth and throat after use, 147.32, cm... Start Date: 06/23/19 Status: OrderedAerochamber See Instructions, # 1 each, [...] 14:35:41 EDT, Tablet Start Date: 08/09/15 Status: OrderedDiabetic Tuss = 100 mg, By Mouth, Every 4 hours, 0 Refills, Maintenance, 08/09/15 14:39:03 Start Date: 08/09/15 Status: OrderedEnablex 15 mg oral tablet, extended release 1 tablet = 15 mg, By Mouth, Daily, j45.40, # 30 tablet, 6 Refills, Maintenance, 03/28/20 14:55:00 EST, ER Tablet, [facility], 147.32, cm, 06/07/19 11:19:00 EDT, Height, 84.5, kg, 06/07/19 11:19:00 EDT, Dry Weight Start Date: 03/28/20 Status: OrderedFlonase 50 mcg/inh nasal spray Daily, [...] 199:29:34 EDT, Aerosol, Route to Pharmacy Electronically, [id number], [facility] Start Date: 12/20/18 Status: OrderedSingulair 10 mg oral tablet 1 tablet = 10 mg, By Mouth, Daily before dinner, 0 Refills, Maintenance Start Date: 12/01/12 Status: OrderedSingulair 10 mg oral tablet 10 mg, 1, tablet, By Mouth, Daily, # 30 tablet, Refills 11, Tot. Refills 11, Maintenance, 03/29/20 12:08:00 EST, Route to Pharmacy Electronically, [facility], 147.32, cm, 06/07/19 11:19:00 EDT, Height, 84.5, kg, 06/07/19 11:19:00 E... Start Date: 03/29/20 Status: OrderedSpiriva Respimat 1.25 mcg/inh inhalation aerosol 2 puffs, Inhalation, Daily, # 4 Gm, 11 Refills, Maintenance, 03/18/19 10:11:00 EST, Aerosol, [facility], 147.32, cm, 03/18/19 10:05:00 EST, Height, 84, kg, 10/06/18 15:57:00 EDT, Dry Weight Start Date: 03/18/19 Status: OrderedtraZODone 150 mg oral tablet By [...]
--- OUTSIDE RECORDS SUMMARY | 2022-02-16 11:28 | XMS_ITS | Continuity of Care Document ---
:1955 Author Organization [facility] Address [address] [place] [phone]- Care Team Providers Name Role Phone True VILLALOBOS, Nandini Perez Primary Care Physician [facility] Date(s): 04/17/21 - 05/18/21 [facility] [address] [place] [id number] Attending Physician: Sary Jackson MD Admitting Physician: Sary Jackson MD Referring Physician: Nandini Biswas NP, V Allergies, Adverse Reactions, Alerts No Known Allergies Medications Acetaminophen 1000mgs, By Mouth, 3 times a day, PRN as needed for pain, 0 Refills, Maintenance, 12/01/12 11:40:28 Start Date: 12/01/12 Status: OrderedAdvair HFA 115 mcg / 21 mcg 2 puffs, Inhalation, 2 times a day, rinse mouth and throat after use, j44.9, # 1 each, 5 Refills, Maintenance, 12/24/20 13:49:00 EDT, Aerosol, [facility], 2 puffs Inhalation 2 timesa [...] 199:29:34 EDT, Aerosol, Route to Pharmacy Electronically, [id number], [facility] - Start Date: 12/20/18 Status: OrderedSingulair 10 mg oral tablet 1 tablet = 10 mg, By Mouth, Daily before dinner, 0 Refills, Maintenance Start Date: 12/01/12 Status: OrderedSingulair 10 mg oral tablet 10 mg, 1, tablet, By Mouth, Daily, # 30 tablet, Refills 5, Tot. Refills 5, Maintenance, 03/14/21 11:36:00 EST, Route to Pharmacy Electronically, [facility], 147.32, cm, 06/07/19 11:19:00 EDT, Height, 84.5, kg, 06/07/19 11:19:00 EDT... Start Date: 03/14/21 Status: OrderedSpiriva Respimat 1.25 mcg/inh inhalation aerosol 2 puffs, Inhalation, Daily, j44.9, # 1 each, 5 Refills, Maintenance, 03/13/21 15:38:00 EST, Aerosol,[facility], 147.32, cm, 06/07/19 11:19:00 EDT, [...]
--- OUTSIDE RECORDS SUMMARY | 2022-02-16 11:28 | XMS_ITS | Continuity of Care Document ---
:1955 Author Organization [facility] Address [address] [place] [address]- Care Team Providers Name Role Phone True VILLALOBOS, Nandini Perez Primary Care Physician Encounter [facility] Date(s): 05/02/21 - 08/04/21 [facility] [address] [place] [id number] Attending Physician: Merrill Bhatt MD Admitting Physician: Merrill Bhatt MD Allergies, Adverse Reactions, Alerts No Known Allergies Medications Acetaminophen 1000mgs, By Mouth, 3 times a day, PRN as needed for pain, 0 Refills, Maintenance, 12/01/12 11:40:28 Start Date: 12/01/12 Status: OrderedAdvair HFA 115 mcg / 21 mcg 2 puffs, Inhalation, 2 times a day, rinse mouth and throat after use, j44.9, # 1 each, 5 Refills, Maintenance, 12/24/20 13:49:00 EDT, Aerosol, [facility], 2 puffs Inhalation 2 [...] Refills, Maintenance, 02/19/21 15:58:00 EST, ER Tablet, [facility], 147.32, cm, 06/07/19 11:19:00 EDT, [...] :29:34 EDT, Aerosol, Route to Pharmacy Electronically, [id number], [facility] - Start Date: 12/20/18 Status: OrderedSingulair 10 mg oral tablet 1 tablet = 10 mg, By Mouth, Daily before dinner, 0 Refills, Maintenance Start Date: 12/01/12 Status: OrderedSingulair 10 mg oral tablet 10 mg, 1, tablet, By Mouth, Daily, # 30 tablet, Refills 5, Tot. Refills 5, Maintenance, 03/14/21 11:36:00 EST, Route to Pharmacy Electronically, [facility], 147.32, cm, 06/07/19 11:19:00 EDT, Height, 84.5, kg, 06/07/19 11:19:00 EDT... Start Date: 03/14/21 Status: OrderedSpiriva Respimat 1.25 mcg/inh inhalation aerosol 2 puffs, Inhalation, Daily, j44.9, # 1 each, 5 Refills, Maintenance, 03/13/21 15:38:00 EST, Aerosol,[facility], 147.32, cm, 06/07/19 11:19:00 [...]
--- OUTSIDE RECORDS SUMMARY | 2022-02-16 11:28 | XMS_ITS | Continuity of Care Document ---
:1955 Author Organization [facility] Address [address] [place] [address]- Care Team Providers Name Role Phone True VILLALOBOS, Nandini Perez Primary Care Physician En[facility] Date(s): 03/18/19 - 06/05/19 [facility] [address] [place] [address] [facility] Attending Physician: Shai Griffith MD Admitting Physician: Shai Griffith MD Referring Physician: Nandini Biswas NP, V Allergies, Adverse Reactions, Alerts Substance Reaction Severity Status NKA Active Medications Acetaminophen 1000mgs, By Mouth, 3 times a day, PRN as needed for pain, 0 Refills, Maintenance, 12/01/12 11:40:28 Start Date: 12/01/12 Status: OrderedAerochamber See Instructions, # 1 each, [...] = 15 mg, By Mouth, Daily, # 90 tablet, 3 Refills, Maintenance, 05/04/19 11:21:00 EST, ER Tablet, [facility], 147.32, cm, 05/04/19 11:08:00 EST, Height, 84.4, kg, 05/04/19 11:08:00 EST, Dry Weight Start Date: 05/04/19 Status: OrderedFlonase 50 mcg/inh nasal spray Daily, 0 Refills, Maintenance, 12/20/18 9:12:48 EDT Start Date: 12/20/18 Status: OrderedFlovent HFA Inhalation, 2 times a day, pt uses prn, 0 Refills, Maintenance, 12/01/12 11:37:12 Start Date: 12/01/12 Status: Orderedhydrochlorothiazide-lisinopril 12.5 mg-10 mg oral tablet [...] capsule, 0 Refills, Maintenance, Capsule Start Date: 9/11/13 Status: OrderedMetformin = 500 mg, By Mouth, [...] 199:29:34 EDT, Aerosol, Route to Pharmacy Electronically, [id number], [facility] Start Date: 12/20/18 Status: OrderedSingulair 10 mg oral tablet 1 tablet = 10 mg, By Mouth, Daily before dinner, 0 Refills, Maintenance Start Date: 12/01/12 Status: OrderedSingulair 10 mg oral tablet 10 mg, 1, tablet, By Mouth, Daily, # 30 tablet, Refills 11, Tot. Refills 11, Maintenance, 03/18/19 10:12:00 EST, Route to Pharmacy Electronically, [facility], 147.32, cm, 03/18/19 10:05:00 EST, Height, 84, kg, 10/06/18 15:57:0... Start Date: 03/18/19 Status: OrderedSpiriva Respimat 1.25 mcg/inh inhalation aerosol 2 puffs, Inhalation, Daily, # 4 Gm, 11 Refills, Maintenance, 03/18/19 10:11:00 EST, Aerosol, [facility], 147.32, cm, 03/18/19 10:05:00 EST, Height, 84, kg, 10/06/18 15:57:00 EDT, Dry Weight Start Date: 03/18/19 Status: OrderedSymbicort 160mcg/4.5mcg Inhaler 2, puffs, Inhalation, 2 times a day, # 60 puffs, Refills 6, Tot. Refills 6, Maintenance, 12/20/18 9:28:25 EDT, Aerosol, Route to Pharmacy Electronically, [id number], [facility] - Start Date: 12/20/18 Status: OrderedtraZODone 150 mg oral tablet By [...]
--- OUTSIDE RECORDS SUMMARY | 2022-02-16 11:28 | XMS_ITS | Continuity of Care Document ---
:1955 Author Organization [facility] Address [address] [place] [address]- Care Team Providers Name Role Phone True VILLALOBOS, Nandini Perez Primary Care Physician En[place] [facility] Date(s): 04/24/20 - 05/24/20 [facility] [address] [place] [id number] Attending Physician: Jose Shea Admitting Physician: AdmtrJose Referring Physician: Admtr, Ar8 Allergies, Adverse Reactions, Alerts Substance Reaction Severity Status NKA Active Medications Acetaminophen 1000mgs, By Mouth, 3 times a day, PRN as needed for pain, 0 Refills, Maintenance, 12/01/12 11:40:28 Start Date: 12/01/12 Status: OrderedAdvair HFA 115 mcg / 21 mcg 2 puffs, Inhalation, 2 times a day, rinse mouth and throat after use, j44.9, # 1 each, 6 Refills, Maintenance, 05/01/20 9:36:00 EST, Aerosol, [facility], 2 puffs Inhalation 2 times a day,Instr:rinse mouth and throat after use, j44.... Start Date: 05/01/20 Status: OrderedAerochamber See Instructions, # 1 each, [...] Refills, Maintenance, 03/28/20 14:55:00 EST, ER Tablet, [facility], 147.32, cm, 06/07/19 11:19:00 EDT, [...] 199:29:34 EDT, Aerosol, Route to Pharmacy Electronically, [id number], [facility] - Start Date: 12/20/18 Status: OrderedSingulair 10 mg oral tablet 1 tablet = 10 mg, By Mouth, Daily before dinner, 0 Refills, Maintenance Start Date: 12/01/12 Status: OrderedSingulair 10 mg oral tablet 10 mg, 1, tablet, By Mouth, Daily, # 30 tablet, Refills 11, Tot. Refills 11, Maintenance, 03/29/20 12:08:00 EST, Route to Pharmacy Electronically, [facility], 147.32, cm, 06/07/19 11:19:00 EDT, Height, 84.5, kg, 06/07/19 11:19:00 E... Start Date: 03/29/20 Status: OrderedSpiriva Respimat 1.25 mcg/inh inhalation aerosol 2 puffs, Inhalation, Daily, j44.9, # 1 each, 6 Refills, Maintenance, 05/01/20 14:53:00 EST, Aerosol,[facility], 147.32, cm, 06/07/19 11:19:00 EDT, Height, 84.5, kg, 06/07/19 11:19:00 EDT, Dry Weight Start Date: 05/01/20 Status: OrderedtraZODone 150 mg oral tablet By [...]
--- OUTSIDE RECORDS SUMMARY | 2022-02-16 11:28 | XMS_ITS | Continuity of Care Document ---
:1955 Author Organization [facility] Address [address] [place] [phone]- Care Team Providers Name Role Phone True VILLALOBOS, Nandini Perez Primary Care Physician Encounter [facility] Date(s): 06/16/19 - 06/26/19 [facility] [address] [place] [id number] [facility] Attending Physician: Jose Shea Admitting Physician: AdmtrJose [...] 6 Refills, Maintenance, 06/23/19 10:49:00 EDT, Aerosol, [facility], 2 puffs Inhalation 2 times [...] Refills, Maintenance, 05/04/19 11:21:00 EST, ER Tablet, [facility], 147.32, cm, 05/04/19 [...] 199:29:34 EDT, Aerosol, Route to Pharmacy Electronically, [id number], [facility] - Start Date: 12/20/18 Status: OrderedSingulair 10 mg oral tablet 1 tablet = 10 mg, By Mouth, Daily before dinner, 0 Refills, Maintenance Start Date: 12/01/12 Status: OrderedSingulair 10 mg oral tablet 10 mg, 1, tablet, By Mouth, Daily, # 30 tablet, Refills 11, Tot. Refills 11, Maintenance, 03/18/19 10:12:00 EST, Route to Pharmacy Electronically, [facility] - , 147.32, cm, 03/18/19 10:05:00 EST, Height, 84, kg, 10/06/18 15:57:0... Start Date: 03/18/19 Status: OrderedSpiriva Respimat 1.25 mcg/inh inhalation aerosol 2 puffs, Inhalation, Daily, # 4 Gm, 11 Refills, Maintenance, 03/18/19 10:11:00 EST, Aerosol, [facility], 147.32, cm, 03/18/19 10:05:00 EST, Height, 84, [...]
--- OUTSIDE RECORDS SUMMARY | 2022-02-16 11:28 | XMS_ITS | Continuity of Care Document ---
:1955 Author Organization [facility] Address [address] [address]- Care Team Providers Name Role Phone True VILLALOBOS, Nandini Perez [id number] 09[facility] - 10/11/21 [facility] [address] [place] [id number] Allergies, Adverse Reactions, Alerts No Known Allergies Medications Acetaminophen 1000mgs, By Mouth, 3 times a day, PRN as needed for pain, 0 Refills, Maintenance, 12/01/12 11:40:28 Start Date: 12/01/12 Status: OrderedAdvair HFA 115 mcg / 21 mcg 2 puffs, Inhalation, 2 times a day, rinse mouth and throat after use, j44.9, # 1 each, 5 Refills, Maintenance, 12/24/20 13:49:00 EDT, Aerosol, [facility], 2 puffs Inhalation 2 timesa [...] 199:29:34 EDT, Aerosol, Route to Pharmacy Electronically, [id number], [facility] - Start Date: 12/20/18 Status: OrderedSingulair 10 mg oral tablet 1 tablet = 10 mg, By Mouth, Daily before dinner, 0 Refills, Maintenance Start Date: 12/01/12 Status: OrderedSingulair 10 mg oral tablet 10 mg, 1, tablet, By Mouth, Daily, # 30 tablet, Refills 3, Tot. Refills 3, Maintenance, 09/11/21 11:41:00 EDT, Route to Pharmacy Electronically, [facility] Start Date: 09/11/21 Status: OrderedSpiriva Respimat 1.25 mcg/inh inhalation aerosol 2 puffs, Inhalation, Daily, j44.9, # 1 each, 3 Refills, Maintenance, 09/11/21 11:42:00 EDT, Aerosol,[facility] Start Date: 09/11/21 Status: OrderedtraZODone 150 mg oral tablet By [...]
--- OUTSIDE RECORDS SUMMARY | 2022-02-16 11:28 | XMS_ITS | Continuity of Care Document ---
:1955 Author Organization [facility] Address [address] [place] [address]- Care Team Providers Name Role Phone True VILLALOBOS, Nandini Perez Primary Care Physician Encounter [facility] [id number] Date(s): 05/31/21 - 07/31/21 [facility] [address] [place] [id number] Attending Physician: Sary Jackson MD Admitting Physician: [...] 5 Refills, Maintenance, 12/24/20 13:49:00 EDT, Aerosol, [facility], 2 puffs Inhalation 2 timesa [...] 199:29:34 EDT, Aerosol, Route to Pharmacy Electronically, [id number], [facility] - Start Date: 12/20/18 Status: OrderedSingulair 10 mg oral tablet 1 tablet = 10 mg, By Mouth, Daily before dinner, 0 Refills, Maintenance Start Date: 12/01/12 Status: OrderedSingulair 10 mg oral tablet 10 mg, 1, tablet, By Mouth, Daily, # 30 tablet, Refills 5, Tot. Refills 5, Maintenance, 03/14/21 11:36:00 EST, Route to Pharmacy Electronically, [facility], 147.32, cm, 06/07/19 11:19:00 EDT, Height, 84.5, kg, 06/07/19 11:19:00 EDT... Start Date: 03/14/21 Status: OrderedSpiriva Respimat 1.25 mcg/inh inhalation aerosol 2 puffs, Inhalation, Daily, j44.9, # 1 each, 5 Refills, Maintenance, 03/13/21 15:38:00 EST, Aerosol,[facility], 147.32, cm, 06/07/19 11:19:00 EDT, [...]
--- NOTE | 2022-02-16 11:29 | ED_ITS ---
HPI - Extremity Problem General Chief complaint: Extremity Problem Stated complaint: R shoulder pain Time Seen by Provider: 02/16/22 11:22 Source: patient Mode of arrival: ambulatory History of Present Illness HPI Narrative: 66-year-old female with past medical history of anxiety, asthma, CKD, hepatitis C, RBBB, vitamin-D deficiency, diabetes, presenting to the ED complaining of right shoulder pain x1 week. Denies any injury, trauma or fall. Reports pain worsened with ROM and palpation. Denies numbness, tingling, weakness, CP/SOB, headaches, lightheadedness/dizziness MD Complaint: extremity pain Related Data Home Medications Medication Instructions Recorded Confirmed albuterol sulfate 90 mcg/actuation 90 mcg inhalation Q4-6H PRN 03/21/20 12/11/21 aerosol inhaler Wheezing atorvastatin 20 mg tablet 20 mg PO DAILY 03/21/20 12/11/21 clonazepam 0.5 mg tablet 0.5 mg PO DAILY PRN Anxiety 03/21/20 12/11/21 omeprazole 20 mg capsule,delayed 20 mg PO QAM 03/21/20 12/11/21 release tiotropium bromide 1.25 2 puff inhalation DAILY 03/21/20 12/11/21 mcg/actuation mist for inhalation amlodipine 2.5 mg tablet 2.5 mg PO DAILY 04/03/20 12/11/21 fluticasone propionate 50 50 mcg intranasal BID 04/03/20 12/11/21 mcg/actuation nasal spray,suspension lisinopril 10 1 tab PO DAILY 04/03/20 12/11/21 mg-hydrochlorothiazide 12.5 mg tablet metformin 500 mg tablet 500 mg PO QAM 04/03/20 09/18/21 montelukast 10 mg tablet 10 mg PO DAILY 04/03/20 12/11/21 ursodiol 250 mg tablet 750 mg PO BID 04/03/20 12/11/21 fluticasone propionate 115 2 puff inhalation BID 08/21/20 12/11/21 mcg-salmeterol 21 mcg/actuation HFA inhaler vitamin E (dl, acetate) 180 mg 180 mg PO DAILY 11/22/20 12/11/21 (400 unit) capsule darifenacin 15 mg tablet,extended 15 mg PO QAM 06/24/21 12/11/21 release 24 hr hydrocodone 5 mg-acetaminophen 325 1 tab PO Q8H PRN pain 06/24/21 12/11/21 mg tablet naloxone 4 mg/actuation nasal 0 spray intranasal 06/24/21 09/18/21 spray (Narcan) trazodone 150 mg tablet 300 mg PO BEDTIME 06/24/21 12/11/21 albuterol sulfate 2.5 mg/3 mL mg inhalation 10/01/21 (0.083 %) solution for nebulization conjugated estrogens 0.625 mg/gram 0 mg vaginal 11/01/21 vaginal cream (Premarin) Previous Rx's Medication Instructions Recorded docusate sodium 100 mg capsule 100 mg PO BID 14 days #28 caps 11/24/20 celecoxib 200 mg capsule 200 mg PO BID 30 days #60 caps 06/24/21 lidocaine 5 % topical patch 1 patch topical DAILY pain 30 days 06/24/21 #30 ea ondansetron 4 mg disintegrating 4 mg PO Q8H PRN nausea and 11/12/21 tablet vomiting #10 tabs calcium carbonate 600 mg-vitamin 1 tab PO QAM #30 tabs 12/26/21 D3 10 mcg (400 unit) tablet Allergies Allergy/AdvReac Type Severity Reaction Status Date / Time No Known Allergies Allergy Verified 02/05/22 09:29 [No Known Allergies*] Review of Systems Review of Systems: Constitutional: No Fever, No Chills ENT/Mouth: No Ear Pain, No Nasal Congestion, No sore throat, No Rhinorrhea, No Swallowing Difficulty Cardiovascular: No Chest Pain, No SOB Respiratory: No Cough, No Sputum, No Wheezing Gastrointestinal: No Nausea, No Vomiting, No Abdominal pain Genitourinary: No Dysuria, No Urinary Frequency, No Hematuria, No Urinary Incontinence/retention Musculoskeletal: + joint pain, No Myalgias, No Joint Swelling Skin: No Skin Lesions, No rash Neuro: No Weakness, No Numbness, No Paresthesias Yes all other systems are reviewed and are negative Constitutional: Constitutional: Reports as per [facility] Past Medical History Attestation statement: The following information was validated with the patient. Medical History Anxiety Asthma Bilateral primary osteoarthritis of knee Chronic kidney disease COVID-19 vaccine series completed Depression Elevated cholesterol Essential hypertension History of COVID-19 History of renal calculi Hx of hepatitis C Lumbar facet arthropathy JUSTIN (obstructive sleep apnea) Other chronic pain Other intervertebral disc displacement, lumbar region RBBB Renal stones Spondylosis of lumbar spine Type 2 diabetes mellitus with complication, without long-term current use of insulin Vitamin D deficiency Surgical History H/O abdominal hysterectomy H/O tubal ligation History of colonoscopy History of esophagogastroduodenoscopy (EGD) History of laryngoscopy History of total right knee replacement (TKR) Hx of arthroscopy of left knee Hx of dilation and curettage Hx of lithotripsy Hx of umbilical hernia repair S/P repair of ventral hernia Family History Family History Father Diabetes mellitus HTN (hypertension) Mother No problems noted. 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 Physical Exam Vital Signs: Vital Signs: Last Vital Signs Temp 96.2 F L 02/16/22 09:58 Pulse 78 02/16/22 09:58 Resp 16 02/16/22 09:58 BP 133/69 02/16/22 09:58 Pulse Ox 97 02/16/22 09:58 O2 Del Method 02/16/22 09:58 BMI result Body Mass Index 38.0 Const: General: cooperative, healthy appearing and no acute distress Orientation/consciousness: patient oriented x3 Limitations: no limitations HEENT: Head: Yes normal to inspection and Yes atraumatic Ears: hearing grossly normal bilaterally General nose exam: Normal external nose present Face and sinus: Yes normal facial exam Eyes: General: appearance normal, both eyes and all related structures EOM: EOMs intact bilaterally Neck: Neck: Yes normal visual inspection and Yes no meningeal signs Resp: Effort & Inspection: normal respiratory effort and no respiratory distress Cardio: Rate: regular rate Heart sounds: S1 normal heart sound present and S2 normal heart sound present Back/Spine/Pelvis: Other: No midline thoracic/lumbar spinous tenderness/step-off or deformity Skin: Rashes: no rashes Wounds: no wounds Neuro: General: patient oriented x3, tone normal and no meningeal signs Gait exam (Neuro): Normal gait present Extrem: Other: No right shoulder deformity. +ttp at AC joint. No appreciable swelling/erythema or ecchymosis. Limited ROM secondary to pain. Neurovascular intact distally. General: Yes normal to inspection Course Course Course Narrative: XR shoulder RT min 2V IMPRESSION: Mild acromioclavicular osteoarthritis. No acute osseous findings. Results discussed with patient including worrisome signs and symptoms and strict return precautions, and when to return to the emergency department. They verbalized understanding and feel safe for discharge at this time. MDM - Extremity (Nontraumatic) MDM Narrative Medical decision making narrative: 66-year-old female with past medical history of anxiety, asthma, CKD, hepatitis C, RBBB, vitamin-D deficiency, diabetes, presenting to the ED complaining of right shoulder pain x1 week. On exam vital signs stable, NAD, nontoxic appearing, physical exam as above. Concern for arthritis vs MSK pain/strain. Lower suspicion for ACS however will obtain EKG. Unlikely cervical dissection Plan: EKG, x-ray, pain control Medical Records Attestation: I reviewed the patient's medical records. Lab Data Attestation: I reviewed the patient's lab results. Discharge Plan Discharge Clinical Impression: Osteoarthritis of AC (acromioclavicular) joint Prescriptions: No Action calcium carbonate-vitamin D3 600 mg-10 mcg (400 unit) tablet 1 tab PO QAM Qty: 30 0RF vitamin E (dl, acetate) 180 mg (400 unit) capsule 180 mg PO DAILY docusate sodium 100 mg Capsule 100 mg PO BID 14 Days Qty: 28 0RF ondansetron 4 mg tablet,disintegrating 4 mg PO Q8H PRN (Reason: nausea and vomiting) Qty: 10 0RF lisinopril-hydrochlorothiazide 10-12.5 mg tablet 1 tab PO DAILY amlodipine 2.5 mg tablet 2.5 mg PO DAILY metformin 500 mg tablet 500 mg PO QAM fluticasone propionate 50 mcg/actuation spray,suspension 50 mcg intranasal BID montelukast 10 mg tablet 10 mg PO DAILY ursodiol 250 mg tablet 750 mg PO BID albuterol sulfate 90 mcg/actuation HFA aerosol inhaler 90 mcg inhalation Q4-6H PRN (Reason: Wheezing) clonazepam 0.5 mg tablet 0.5 mg PO DAILY PRN (Reason: Anxiety) atorvastatin 20 mg tablet 20 mg PO DAILY tiotropium bromide 1.25 mcg/actuation mist 2 puff inhalation DAILY omeprazole 20 mg capsule,delayed release(DR/EC) 20 mg PO QAM fluticasone propion-salmeterol 115-21 mcg/actuation HFA aerosol inhaler 2 puff inhalation BID naloxone [Narcan] 4 mg/actuation spray,non-aerosol 0 spray intranasal darifenacin 15 mg tablet extended release 24 hr 15 mg PO QAM hydrocodone-acetaminophen 5-325 mg tablet 1 tab PO Q8H PRN (Reason: pain) trazodone 150 mg tablet 300 mg PO BEDTIME celecoxib 200 mg capsule 200 mg PO BID 30 Days Qty: 60 0RF lidocaine 5 % adhesive patch,medicated 1 patch topical DAILY 30 Days Qty: 30 0RF Rx Instructions: leave on most painful area for up to 12 hrs albuterol sulfate 2.5 mg /3 mL (0.083 %) solution for nebulization inhalation Premarin 0.625 mg/gram cream 0 mg vaginal
--- OUTSIDE RECORDS SUMMARY | 2022-02-16 11:29 | XMS_ITS | Continuity of Care Document ---
:1955 Author Organization [facility] Address [address] [place] [address]- Care Team Providers Name Role Phone True VILLALOBOS, Nandini Perez [facility] Care [id number] Date(s): 01/15/21 - 02/14/21 [facility] [address] [id number] Allergies, Adverse Reactions, Alerts Substance [...] 5 Refills, Maintenance, 12/24/20 13:49:00 EDT, Aerosol, [facility], 2 puffs Inhalation 2 timesa [...] tablet = 15 mg, By Mouth, Daily, Pt needs to make an appointment with Karrie Smith NP for more refills., # 30 tablet, 11 Refills, Maintenance, 01/17/21 13:08:00 EDT, ER Tablet, [facility], 147.32, cm, 06/07/19 11:19:00 EDT, Height... Start Date: 01/17/21 Status: OrderedDiabetic Tuss = 100 mg, By [...] 199:29:34 EDT, Aerosol, Route to Pharmacy Electronically, [id number], [facility] - Start Date: 12/20/18 Status: OrderedSingulair 10 mg oral tablet 1 tablet = 10 mg, By Mouth, Daily before dinner, 0 Refills, Maintenance Start Date: 12/01/12 Status: OrderedSingulair 10 mg oral tablet 10 mg, 1, tablet, By Mouth, Daily, # 30 tablet, Refills 11, Tot. Refills 11, Maintenance, 03/29/20 12:08:00 EST, Route to Pharmacy Electronically, [facility], 147.32, cm, 06/07/19 11:19:00 EDT, Height, 84.5, kg, 06/07/19 11:19:00 E... Start Date: 03/29/20 Status: OrderedSpiriva Respimat 1.25 mcg/inh inhalation aerosol 2 puffs, Inhalation, Daily, j44.9, # 1 each, 6 Refills, Maintenance, 05/01/20 14:53:00 EST, Aerosol,[facility], 147.32, cm, 06/07/19 11:19:00 EDT, [...]
--- OUTSIDE RECORDS SUMMARY | 2022-02-16 11:29 | XMS_ITS | Continuity of Care Document ---
:1955 Author Organization [facility] Address [address] [place] [address]- Care Team Providers Name Role Phone True VILLALOBOS, Nandini Perez [id number] Date(s[facility]/14[facility]21 - 04/13/21 [facility] [address] [place] [address]- Allergies, Adverse Reactions, Alerts No Known Allergies Medications Acetaminophen 1000mgs, By Mouth, 3 times a day, PRN as needed for pain, 0 Refills, Maintenance, 12/01/12 11:40:28 Start Date: 12/01/12 Status: OrderedAdvair HFA 115 mcg / 21 mcg 2 puffs, Inhalation, 2 times a day, rinse mouth and throat after use, j44.9, # 1 each, 5 Refills, Maintenance, 12/24/20 13:49:00 EDT, Aerosol, [facility], 2 puffs Inhalation 2 [...] 199:29:34 EDT, Aerosol, Route to Pharmacy Electronically, [id number], [facility] - Start Date: 12/20/18 Status: OrderedSingulair 10 mg oral tablet 1 tablet = 10 mg, By Mouth, Daily before dinner, 0 Refills, Maintenance Start Date: 12/01/12 Status: OrderedSingulair 10 mg oral tablet 10 mg, 1, tablet, By Mouth, Daily, # 30 tablet, Refills 5, Tot. Refills 5, Maintenance, 03/14/21 11:36:00 EST, Route to Pharmacy Electronically, [facility], 147.32, cm, 06/07/19 11:19:00 EDT, Height, 84.5, kg, 06/07/19 11:19:00 EDT... Start Date: 03/14/21 Status: OrderedSpiriva Respimat 1.25 mcg/inh inhalation aerosol 2 puffs, Inhalation, Daily, j44.9, # 1 each, 5 Refills, Maintenance, 03/13/21 15:38:00 EST, Aerosol,[facility], 147.32, cm, 06/07/19 11:19:00 [...]
--- OUTSIDE RECORDS SUMMARY | 2022-02-16 11:29 | XMS_ITS | Continuity of Care Document ---
:[address] [facility] Address [address] [place] [address]- Care Team Providers Name Role Phone True VILLALOBOS, Nandini Perez [id number] Date(s): [facility]/26/20 - 09/05/[address] [address] Discharge Disposition: A-D/C Home Attending Physician: David JOE, Leonardo Botello Admitting Physician: David JOE, Leonardo Botello Referring Physician: Leonardo Hernandez DPM Allergies, Adverse Reactions, Alerts Substance Reaction Severity [...] 6 Refills, Maintenance, 05/01/20 9:36:00 EST, Aerosol, [facility], 2 puffs Inhalation 2 times a [...] j45.40, # 30 tablet, 6 Refills, Maintenance, 05/30/20 8:17:00 EST, ER Tablet, [facility], 147.32, cm, 06/07/19 11:19:00 EDT, Height, 84.5, kg, 06/07/19 11:19:00 EDT, Dry Weight Start Date: 05/30/20 Status: OrderedFlonase 50 mcg/inh nasal spray Daily, [...] 199:29:34 EDT, Aerosol, Route to Pharmacy Electronically, [id number], [facility] - Start Date: 12/20/18 Status: OrderedSingulair 10 mg oral tablet 1 tablet = 10 mg, By Mouth, Daily before dinner, 0 Refills, Maintenance Start Date: 12/01/12 Status: OrderedSingulair 10 mg oral tablet 10 mg, 1, tablet, By Mouth, Daily, # 30 tablet, Refills 11, Tot. Refills 11, Maintenance, 03/29/20 12:08:00 EST, Route to Pharmacy Electronically, [facility], 147.32, cm, 06/07/19 11:19:00 EDT, Height, 84.5, kg, 06/07/19 11:19:00 E... Start Date: 03/29/20 Status: OrderedSpiriva Respimat 1.25 mcg/inh inhalation aerosol 2 puffs, Inhalation, Daily, j44.9, # 1 each, 6 Refills, Maintenance, 05/01/20 14:53:00 EST, Aerosol,[facility], 147.32, cm, 06/07/19 11:19:00 EDT, Height, [...]
--- OUTSIDE RECORDS SUMMARY | 2022-02-16 11:29 | XMS_ITS | Continuity of Care Document ---
:1955 Author Organization [facility] Address [address] [address]- Care Team Providers Name Role Phone True VILLALOBOS, Nandini Perez Primary Care Physician [facility] [id number] Date(s): 07/24/21 - 08/23/21 [facility] [address] [place] [address] Attending Physician: Jose Shea Admitting Physician: Jose Shea Referring Physician: trJose Allergies, Adverse Reactions, Alerts No Known Allergies Medications Acetaminophen 1000mgs, By Mouth, 3 times a day, PRN as needed for pain, 0 Refills, Maintenance, 12/01/12 11:40:28 Start Date: 12/01/12 Status: OrderedAdvair HFA 115 mcg / 21 mcg 2 puffs, Inhalation, 2 times a day, rinse mouth and throat after use, j44.9, # 1 each, 5 Refills, Maintenance, 12/24/20 13:49:00 EDT, Aerosol, [facility], 2 puffs Inhalation 2 timesa day,Instr:rinse [...] :29:34 EDT, Aerosol, Route to Pharmacy Electronically, [id number], [facility] - Start Date: 12/20/18 Status: OrderedSingulair 10 mg oral tablet 1 tablet = 10 mg, By Mouth, Daily before dinner, 0 Refills, Maintenance Start Date: 12/01/12 Status: OrderedSingulair 10 mg oral tablet 10 mg, 1, tablet, By Mouth, Daily, # 30 tablet, Refills 5, Tot. Refills 5, Maintenance, 03/14/21 11:36:00 EST, Route to Pharmacy Electronically, [facility], 147.32, cm, 06/07/19 11:19:00 EDT, Height, 84.5, kg, 06/07/19 11:19:00 EDT... Start Date: 03/14/21 Status: OrderedSpiriva Respimat 1.25 mcg/inh inhalation aerosol 2 puffs, Inhalation, Daily, j44.9, # 1 each, 5 Refills, Maintenance, 03/13/21 15:38:00 EST, Aerosol,[facility], 147.32, cm, 06/07/19 11:19:00 EDT, Height, [...]
--- OUTSIDE RECORDS SUMMARY | 2022-02-16 11:29 | XMS_ITS | Continuity of Care Document ---
:1955 Author Organization [facility] Address [address] [address]- Care Team Providers Name Role Phone True VILLALOBOS, Nandini Perez Primary Care Physician [id number] Date(s): 06/14/21 - 08/23/21 [facility] [address] [place] [id number] Attending Physician: [...] 5 Refills, Maintenance, 12/24/20 13:49:00 EDT, Aerosol, [facility], 2 puffs Inhalation 2 timesa [...] 199:29:34 EDT, Aerosol, Route to Pharmacy Electronically, [id number], [facility] - Start Date: 12/20/18 Status: OrderedSingulair 10 mg oral tablet 1 tablet = 10 mg, By Mouth, Daily before dinner, 0 Refills, Maintenance Start Date: 12/01/12 Status: OrderedSingulair 10 mg oral tablet 10 mg, 1, tablet, By Mouth, Daily, # 30 tablet, Refills 5, Tot. Refills 5, Maintenance, 03/14/21 11:36:00 EST, Route to Pharmacy Electronically, [facility], 147.32, cm, 06/07/19 11:19:00 EDT, Height, 84.5, kg, 06/07/19 11:19:00 EDT... Start Date: 03/14/21 Status: OrderedSpiriva Respimat 1.25 mcg/inh inhalation aerosol 2 puffs, Inhalation, Daily, j44.9, # 1 each, 5 Refills, Maintenance, 03/13/21 15:38:00 EST, Aerosol,[facility], 147.32, cm, 06/07/19 11:19:00 EDT, [...]
--- OUTSIDE RECORDS SUMMARY | 2022-02-16 11:29 | XMS_ITS | Continuity of Care Document ---
:1955 Author Organization [facility] Address [address] [place] [address]- Care Team Providers Name Role Phone True VILLALOBOS, Nandini Perez Primary Care Physician En[facility] Date(s): 05/25/19 - 07/16/19 [facility] [address] [place] [address]- [facility] Attending Physician: Shai Griffith MD Admitting Physician: Shai Griffith MD Allergies, Adverse Reactions, Alerts Substance Reaction Severity Status NKA Active Medications Acetaminophen 1000mgs, By Mouth, 3 times a day, PRN as needed for pain, 0 Refills, Maintenance, 12/01/12 11:40:28 Start Date: 12/01/12 Status: OrderedAdvair HFA 115 mcg / 21 mcg 2 puffs, Inhalation, 2 times a day, rinse mouth and throat after use, # 1 each, 6 Refills, Maintenance, 06/23/19 10:49:00 EDT, Aerosol, [facility], 2 puffs Inhalation 2 times [...] Refills, Maintenance, 05/04/19 11:21:00 EST, ER Tablet, [facility], 147.32, cm, 05/04/19 [...] 199:29:34 EDT, Aerosol, Route to Pharmacy Electronically, [id number], [facility] Start Date: 12/20/18 Status: OrderedSingulair 10 mg oral tablet 1 tablet = 10 mg, By Mouth, Daily before dinner, 0 Refills, Maintenance Start Date: 12/01/12 Status: OrderedSingulair 10 mg oral tablet 10 mg, 1, tablet, By Mouth, Daily, # 30 tablet, Refills 11, Tot. Refills 11, Maintenance, 03/18/19 10:12:00 EST, Route to Pharmacy Electronically, [facility], 147.32, cm, 03/18/19 10:05:00 EST, Height, 84, kg, 10/06/18 15:57:0... Start Date: 03/18/19 Status: OrderedSpiriva Respimat 1.25 mcg/inh inhalation aerosol 2 puffs, Inhalation, Daily, # 4 Gm, 11 Refills, Maintenance, 03/18/19 10:11:00 EST, Aerosol, [facility], 147.32, cm, 03/18/19 10:05:00 EST, Height, 84, [...]
--- OUTSIDE RECORDS SUMMARY | 2022-02-16 11:29 | XMS_ITS | Continuity of Care Document ---
:1955 Author Organization [facility] Address [address] [place] [address]- Care Team Providers Name Role Phone True VILLALOBOS, Nandini Perez Primary Care Physician [id number] Date(s): 09/07/21 - 01/05/22 [facility] [address] [place] [address] Attending Physician: Sary Jackson MD Admitting Physician: [...] 5 Refills, Maintenance, 12/24/20 13:49:00 EDT, Aerosol, [facility], 2 puffs Inhalation 2 [...] 199:29:34 EDT, Aerosol, Route to Pharmacy Electronically, [id number], [facility] - Start Date: 12/20/18 Status: OrderedSingulair 10 mg oral tablet 1 tablet = 10 mg, By Mouth, Daily before dinner, 0 Refills, Maintenance Start Date: 12/01/12 Status: OrderedSingulair 10 mg oral tablet 10 mg, 1, tablet, By Mouth, Daily, # 30 tablet, Refills 3, Tot. Refills 3, Maintenance, 09/11/21 11:41:00 EDT, Route to Pharmacy Electronically, [facility] Start Date: 09/11/21 Status: OrderedSingulair 10 mg oral tablet 10 mg, 1, tablet, By Mouth, Daily, # 30 tablet, Refills 6, Tot. Refills 6, Maintenance, 12/26/21 18:24:00 EDT, Route to Pharmacy Electronically, [facility], j45.9 Start Date: 12/26/21 Status: OrderedSpiriva Respimat 1.25 mcg/inh inhalation aerosol 2 puffs, Inhalation, Daily, j44.9, # 1 each, 6 Refills, Maintenance, 10/14/21 16:00:00 EDT, [place] Start Date: 10/14/21 Status: OrderedtraZODone [...] Date: 10/06/18 Status: Ordered Problem List Condition Confirmation Course Effective Dates Status Health Stat us Informant Asthma Confirmed Active Urinary Confirmed Active incontinence Social History Social History Type Response Smoking Status Former smoker entered on: 01/23/15 Sex Patient Care team information PersonnelName: Nandini Biswas NP, V Address: Address: [address] [place] [address] [address] [place] [address], [facility]. [place], [place] [address]
--- OUTSIDE RECORDS SUMMARY | 2022-02-16 11:29 | XMS_ITS | Continuity of Care Document ---
:1955 [facility] Address [address] [place] [address], [address] [place] [address]- Care Team Providers Name Role Phone True VILLALOBOS, Nandini Perez Primary Care Phys[id number] Date(s): 04/26/20 - 05/26/20 [facility] [address] [address] Allergies, Adverse Reactions, Alerts Substance [...] 6 Refills, Maintenance, 05/01/20 9:36:00 EST, Aerosol, [facility], 2 puffs Inhalation 2 times [...] Refills, Maintenance, 03/28/20 14:55:00 EST, ER Tablet, [facility], 147.32, cm, 06/07/19 11:19:00 EDT, [...] :29:34 EDT, Aerosol, Route to Pharmacy Electronically, [id number], [facility] - Start Date: 12/20/18 Status: OrderedSingulair 10 mg oral tablet 1 tablet = 10 mg, By Mouth, Daily before dinner, 0 Refills, Maintenance Start Date: 12/01/12 Status: OrderedSingulair 10 mg oral tablet 10 mg, 1, tablet, By Mouth, Daily, # 30 tablet, Refills 11, Tot. Refills 11, Maintenance, 03/29/20 12:08:00 EST, Route to Pharmacy Electronically, [facility], 147.32, cm, 06/07/19 11:19:00 EDT, Height, 84.5, kg, 06/07/19 11:19:00 E... Start Date: 03/29/20 Status: OrderedSpiriva Respimat 1.25 mcg/inh inhalation aerosol 2 puffs, Inhalation, Daily, j44.9, # 1 each, 6 Refills, Maintenance, 05/01/20 14:53:00 EST, Aerosol,[facility], 147.32, cm, 06/07/19 11:19:00 EDT, [...]
--- OUTSIDE RECORDS SUMMARY | 2022-02-16 11:29 | XMS_ITS | Continuity of Care Document ---
:1955 Author Organization [facility] Address [address] [place] [address], [address] [place] [address]- Care Team Providers Name Role Phone True VILLALOBOS, Nandini Perez Primary Care Physician [facility] [id number] Date(s): 05/04/19 - 05/14/19 [facility] [address], [address] [place] [address]- Attending Physician: Jose Shea Admitting Physician: AdmJose linares Referring Physician: Admtr, ArRamonita Allergies, Adverse Reactions, Alerts Substance Reaction Severity [...] Refills, Maintenance, 05/04/19 11:21:00 EST, ER Tablet, [facility], 147.32, cm, 05/04/19 [...] 199:29:34 EDT, Aerosol, Route to Pharmacy Electronically, [id number], [facility] Start Date: 12/20/18 Status: OrderedSingulair 10 mg oral tablet 1 tablet = 10 mg, By Mouth, Daily before dinner, 0 Refills, Maintenance Start Date: 12/01/12 Status: OrderedSingulair 10 mg oral tablet 10 mg, 1, tablet, By Mouth, Daily, # 30 tablet, Refills 11, Tot. Refills 11, Maintenance, 03/18/19 10:12:00 EST, Route to Pharmacy Electronically, [facility], 147.32, cm, 03/18/19 10:05:00 EST, Height, 84, kg, 10/06/18 15:57:0... Start Date: 03/18/19 Status: OrderedSpiriva Respimat 1.25 mcg/inh inhalation aerosol 2 puffs, Inhalation, Daily, # 4 Gm, 11 Refills, Maintenance, 03/18/19 10:11:00 EST, Aerosol, [facility], 147.32, cm, 03/18/19 10:05:00 EST, Height, 84, kg, 10/06/18 15:57:00 EDT, Dry Weight Start Date: 03/18/19 Status: OrderedSymbicort 160mcg/4.5mcg Inhaler 2, puffs, Inhalation, 2 times a day, # 60 puffs, Refills 6, Tot. Refills 6, Maintenance, 12/20/18 9:28:25 EDT, Aerosol, Route to Pharmacy Electronically, [id number], [facility] - Start Date: 12/20/18 Status: [...]
--- OUTSIDE RECORDS SUMMARY | 2022-02-16 11:29 | XMS_ITS | Continuity of Care Document ---
:1955 Author Organization [facility] Address [address] [address]- Care Team Providers Name Role Phone True VILLALOBOS, Nandini Perez Primary Care Physician [id number] Date(s): 10/14/21 - 11/13/21 [facility] [address] [place] [address] Allergies, Adverse Reactions, Alerts No Known Allergies Medications Acetaminophen 1000mgs, By Mouth, 3 times a day, PRN as needed for pain, 0 Refills, Maintenance, 12/01/12 11:40:28 Start Date: 12/01/12 Status: OrderedAdvair HFA 115 mcg / 21 mcg 2 puffs, Inhalation, 2 times a day, rinse mouth and throat after use, j44.9, # 1 each, 5 Refills, Maintenance, 12/24/20 13:49:00 EDT, Aerosol, [facility], 2 puffs Inhalation 2 timesa day,Instr:rinse [...] 199:29:34 EDT, Aerosol, Route to Pharmacy Electronically, [id number], [facility] - Start Date: 12/20/18 Status: OrderedSingulair 10 mg oral tablet 1 tablet = 10 mg, By Mouth, Daily before dinner, 0 Refills, Maintenance Start Date: 12/01/12 Status: OrderedSingulair 10 mg oral tablet 10 mg, 1, tablet, By Mouth, Daily, # 30 tablet, Refills 3, Tot. Refills 3, Maintenance, 09/11/21 11:41:00 EDT, Route to Pharmacy Electronically, [facility] Start Date: 09/11/21 Status: OrderedSpiriva Respimat [...]
--- OUTSIDE RECORDS SUMMARY | 2022-02-16 11:29 | XMS_ITS | Continuity of Care Document ---
:1955 [facility] Address [address] [place] [address], [address] [place] [address]- Care Team Providers Name Role Phone True VILLALOBOS, Nandini Perez Primary Care Physician [id number] Date(s): 06/18/20 - 07/18/20 [facility] [address] [address] Allergies, Adverse Reactions, Alerts Substance [...] 6 Refills, Maintenance, 05/01/20 9:36:00 EST, Aerosol, [facility], 2 puffs Inhalation 2 times [...] Refills, Maintenance, 05/30/20 8:17:00 EST, ER Tablet, [facility], 147.32, cm, 06/07/19 11:19:00 EDT, [...] :29:34 EDT, Aerosol, Route to Pharmacy Electronically, [id number], [facility] - Start Date: 12/20/18 Status: OrderedSingulair 10 mg oral tablet 1 tablet = 10 mg, By Mouth, Daily before dinner, 0 Refills, Maintenance Start Date: 12/01/12 Status: OrderedSingulair 10 mg oral tablet 10 mg, 1, tablet, By Mouth, Daily, # 30 tablet, Refills 11, Tot. Refills 11, Maintenance, 03/29/20 12:08:00 EST, Route to Pharmacy Electronically, [facility], 147.32, cm, 06/07/19 11:19:00 EDT, Height, 84.5, kg, 06/07/19 11:19:00 E... Start Date: 03/29/20 Status: OrderedSpiriva Respimat 1.25 mcg/inh inhalation aerosol 2 puffs, Inhalation, Daily, j44.9, # 1 each, 6 Refills, Maintenance, 05/01/20 14:53:00 EST, Aerosol,[facility], 147.32, cm, 06/07/19 11:19:00 EDT, [...]
--- OUTSIDE RECORDS SUMMARY | 2022-02-16 11:29 | XMS_ITS | Continuity of Care Document ---
:1955 Author Organization [facility] Address [address] [place] [address]- Care Team Providers Name Role Phone True VILLALOBOS, Nandini Perez Primary Care Physician En[facility] Date(s): 12/24/20 - 01/23/21 [facility] [address] [place] [address]- Allergies, Adverse Reactions, Alerts Substance Reaction Severity [...] 5 Refills, Maintenance, 12/24/20 13:49:00 EDT, Aerosol, [facility], 2 puffs Inhalation 2 timesa [...] Refills, Maintenance, 01/17/21 13:08:00 EDT, ER Tablet, [facility], 147.32, cm, 06/07/19 11:19:00 EDT, [...] 199:29:34 EDT, Aerosol, Route to Pharmacy Electronically, [id number], [facility] - Start Date: 12/20/18 Status: OrderedSingulair 10 mg oral tablet 1 tablet = 10 mg, By Mouth, Daily before dinner, 0 Refills, Maintenance Start Date: 12/01/12 Status: OrderedSingulair 10 mg oral tablet 10 mg, 1, tablet, By Mouth, Daily, # 30 tablet, Refills 11, Tot. Refills 11, Maintenance, 03/29/20 12:08:00 EST, Route to Pharmacy Electronically, [facility], 147.32, cm, 06/07/19 11:19:00 EDT, Height, 84.5, kg, 06/07/19 11:19:00 E... Start Date: 03/29/20 Status: OrderedSpiriva Respimat 1.25 mcg/inh inhalation aerosol 2 puffs, Inhalation, Daily, j44.9, # 1 each, 6 Refills, Maintenance, 05/01/20 14:53:00 EST, Aerosol,[facility], 147.32, cm, 06/07/19 11:19:00 EDT, [...]
--- OUTSIDE RECORDS SUMMARY | 2022-02-16 11:29 | XMS_ITS | Continuity of Care Document ---
:1955 Author Organization [facility] Address [address] [place] [address]- Care Team Providers Name Role Phone Nandini Biswas NP, V Primary Care Physician [facility] [id number] Date(s): 08/09/20 - 09/08/[address] [address] Attending Physician: Jose Shea Admitting Physician: Jose Shea Referring Physician: Jose Shea Allergies, Adverse Reactions, Alerts Substance Reaction Severity [...] 6 Refills, Maintenance, 05/01/20 9:36:00 EST, Aerosol, [facility], 2 puffs Inhalation 2 times [...] Refills, Maintenance, 05/30/20 8:17:00 EST, ER Tablet, [facility], 147.32, cm, 06/07/19 11:19:00 EDT, [...] :29:34 EDT, Aerosol, Route to Pharmacy Electronically, [id number], [facility] - Start Date: 12/20/18 Status: OrderedSingulair 10 mg oral tablet 1 tablet = 10 mg, By Mouth, Daily before dinner, 0 Refills, Maintenance Start Date: 12/01/12 Status: OrderedSingulair 10 mg oral tablet 10 mg, 1, tablet, By Mouth, Daily, # 30 tablet, Refills 11, Tot. Refills 11, Maintenance, 03/29/20 12:08:00 EST, Route to Pharmacy Electronically, [facility], 147.32, cm, 06/07/19 11:19:00 EDT, Height, 84.5, kg, 06/07/19 11:19:00 E... Start Date: 03/29/20 Status: OrderedSpiriva Respimat 1.25 mcg/inh inhalation aerosol 2 puffs, Inhalation, Daily, j44.9, # 1 each, 6 Refills, Maintenance, 05/01/20 14:53:00 EST, Aerosol,[facility], 147.32, cm, 06/07/19 11:19:00 EDT, [...]
--- OUTSIDE RECORDS SUMMARY | 2022-02-16 11:29 | XMS_ITS | Continuity of Care Document ---
:1955 Author Organization [address] [address]- Care Team Providers Name Role Phone True VILLALOBOS, Nandini Perez Primary Care Physician En[place] [facility] Date(s): 05/09/21 - 06/08/[address] [address] Attending Physician: Jose Shea Admitting Physician: Jose Shea Referring Physician: Admtr, Ar8 Allergies, Adverse Reactions, Alerts No Known Allergies Medications Acetaminophen 1000mgs, By Mouth, 3 times a day, PRN as needed for pain, 0 Refills, Maintenance, 12/01/12 11:40:28 Start Date: 12/01/12 Status: OrderedAdvair HFA 115 mcg / 21 mcg 2 puffs, Inhalation, 2 times a day, rinse mouth and throat after use, j44.9, # 1 each, 5 Refills, Maintenance, 12/24/20 13:49:00 EDT, Aerosol, [facility], 2 puffs Inhalation 2 [...] 199:29:34 EDT, Aerosol, Route to Pharmacy Electronically, [id number], [facility] - Start Date: 12/20/18 Status: OrderedSingulair 10 mg oral tablet 1 tablet = 10 mg, By Mouth, Daily before dinner, 0 Refills, Maintenance Start Date: 12/01/12 Status: OrderedSingulair 10 mg oral tablet 10 mg, 1, tablet, By Mouth, Daily, # 30 tablet, Refills 5, Tot. Refills 5, Maintenance, 03/14/21 11:36:00 EST, Route to Pharmacy Electronically, [facility], 147.32, cm, 06/07/19 11:19:00 EDT, Height, 84.5, kg, 06/07/19 11:19:00 EDT... Start Date: 03/14/21 Status: OrderedSpiriva Respimat 1.25 mcg/inh inhalation aerosol 2 puffs, Inhalation, Daily, j44.9, # 1 each, 5 Refills, Maintenance, 03/13/21 15:38:00 EST, Aerosol,[facility], 147.32, cm, 06/07/19 11:19:00 [...]
--- OUTSIDE RECORDS SUMMARY | 2022-02-16 11:29 | XMS_ITS | Continuity of Care Document ---
:1955 Author Organization [facility] Kevans Leonardu Address [address] [place] [address], [address] [place] [phone]- Care Team Providers Name Role Phone True VILLALOBOS, Nandini Perez Primary Care Physician [facility] [id number] Date(s): 01/17/21 - 02/16/21 [facility] Paulo [address], [address] [place] [address] Attending Physician: Jose Shea Admitting Physician: AdmtrJose Referring Physician: Admtr, ArRamonita Allergies, Adverse Reactions, [...] 5 Refills, Maintenance, 12/24/20 13:49:00 EDT, Aerosol, [facility], 2 puffs Inhalation 2 timesa [...] Refills, Maintenance, 01/17/21 13:08:00 EDT, ER Tablet, [facility], 147.32, cm, 06/07/19 11:19:00 EDT, [...] 199:29:34 EDT, Aerosol, Route to Pharmacy Electronically, [id number], [facility] - Start Date: 12/20/18 Status: OrderedSingulair 10 mg oral tablet 1 tablet = 10 mg, By Mouth, Daily before dinner, 0 Refills, Maintenance Start Date: 12/01/12 Status: OrderedSingulair 10 mg oral tablet 10 mg, 1, tablet, By Mouth, Daily, # 30 tablet, Refills 11, Tot. Refills 11, Maintenance, 03/29/20 12:08:00 EST, Route to Pharmacy Electronically, [facility], 147.32, cm, 06/07/19 11:19:00 EDT, Height, 84.5, kg, 06/07/19 11:19:00 E... Start Date: 03/29/20 Status: OrderedSpiriva Respimat 1.25 mcg/inh inhalation aerosol 2 puffs, Inhalation, Daily, j44.9, # 1 each, 6 Refills, Maintenance, 05/01/20 14:53:00 EST, Aerosol,[facility], 147.32, cm, 06/07/19 11:19:00 EDT, [...]
--- OUTSIDE RECORDS SUMMARY | 2022-02-16 11:29 | XMS_ITS | Continuity of Care Document ---
:1955 Author Organization [facility] Address [address] [place] [address]- Care Team Providers Name Role Phone True VILLALOBOS, Nandini Perez Primary Care Physician Encounter [facility] Date(s): 05/25/20 - 06/24/20 [facility] [address] [place] [id number] Allergies, Adverse Reactions, Alerts Substance Reaction Severity [...] 6 Refills, Maintenance, 05/01/20 9:36:00 EST, Aerosol, [facility], 2 puffs Inhalation 2 times [...] Refills, Maintenance, 05/30/20 8:17:00 EST, ER Tablet, [facility], 147.32, [...] :29:34 EDT, Aerosol, Route to Pharmacy Electronically, [id number], [facility] - Start Date: [...]
--- OUTSIDE RECORDS SUMMARY | 2022-02-16 11:29 | XMS_ITS | Continuity of Care Document ---
:1955 Author Organization [facility] Address [address] [place] [address]- Care Team Providers Name Role Phone True VILLALOBOS, Nandini Perez Primary Care Physician Encounter [facility] [id number] Date(s): 08/21/21 - 10/10/[address] [address] Discharge Disposition: A-D/C Home Attending Physician: Darcy Temple MD Admitting Physician: Darcy Temple MD Referring Physician: Darcy Temple MD Allergies, Adverse Reactions, Alerts No Known Allergies Medications Acetaminophen 1000mgs, By Mouth, 3 times a day, PRN as needed for pain, 0 Refills, Maintenance, 12/01/12 11:40:28 Start Date: 12/01/12 Status: OrderedAdvair HFA 115 mcg / 21 mcg 2 puffs, Inhalation, 2 times a day, rinse mouth and throat after use, j44.9, # 1 each, 5 Refills, Maintenance, 12/24/20 13:49:00 EDT, Aerosol, [facility], 2 puffs Inhalation 2 timesa day,Instr:rinse [...] 199:29:34 EDT, Aerosol, Route to Pharmacy Electronically, [id number], [facility] - Start Date: 12/20/18 Status: OrderedSingulair 10 mg oral tablet 1 tablet = 10 mg, By Mouth, Daily before dinner, 0 Refills, Maintenance Start Date: 12/01/12 Status: OrderedSingulair 10 mg oral tablet 10 mg, 1, tablet, By Mouth, Daily, # 30 tablet, Refills 3, Tot. Refills 3, Maintenance, 09/11/21 11:41:00 EDT, Route to Pharmacy Electronically, [facility] Start Date: 09/11/21 Status: OrderedSpiriva Respimat 1.25 mcg/inh inhalation aerosol 2 puffs, Inhalation, Daily, j44.9, # 1 each, 3 Refills, Maintenance, 09/11/21 11:42:00 EDT, Aerosol,[facility] Start Date: 09/11/21 Status: OrderedtraZODone 150 [...]
--- OUTSIDE RECORDS SUMMARY | 2022-02-16 11:29 | XMS_ITS | Continuity of Care Document ---
:1955 Author Organization [facility] Address [address] [place] [phone]- Care Team Providers Name Role Phone True VILLALOBOS, Nandini ePrez Primary Care Physician Encounter [facility] Date(s): 03/18/19 - 06/19/19 [facility] [address] [place] [address]- [facility] Attending Physician: Shai Griffith MD Admitting Physician: [...] Refills, Maintenance, 05/04/19 11:21:00 EST, ER Tablet, [facility], 147.32, cm, 05/04/19 11:08:00 [...] 199:29:34 EDT, Aerosol, Route to Pharmacy Electronically, [id number], [facility] Start Date: 12/20/18 Status: OrderedSingulair 10 mg oral tablet 1 tablet = 10 mg, By Mouth, Daily before dinner, 0 Refills, Maintenance Start Date: 12/01/12 Status: OrderedSingulair 10 mg oral tablet 10 mg, 1, tablet, By Mouth, Daily, # 30 tablet, Refills 11, Tot. Refills 11, Maintenance, 03/18/19 10:12:00 EST, Route to Pharmacy Electronically, [facility], 147.32, cm, 03/18/19 10:05:00 EST, Height, 84, kg, 10/06/18 15:57:0... Start Date: 03/18/19 Status: OrderedSpiriva Respimat 1.25 mcg/inh inhalation aerosol 2 puffs, Inhalation, Daily, # 4 Gm, 11 Refills, Maintenance, 03/18/19 10:11:00 EST, Aerosol, [facility], 147.32, cm, 03/18/19 10:05:00 EST, Height, 84, kg, 10/06/18 15:57:00 EDT, Dry Weight Start Date: 03/18/19 Status: OrderedSymbicort 160mcg/4.5mcg Inhaler 2, puffs, Inhalation, 2 times a day, in the morning and the evening rinse mouth and throat after use, # 1 each, Refills 6, Tot. Refills 6, Maintenance, 06/16/19 16:09:00 EDT, Aerosol, Route to PharmacyElectronically, [id number]... Start Date: 06/16/19 Status: OrderedtraZODone 150 mg oral tablet By [...]
--- OUTSIDE RECORDS SUMMARY | 2022-02-16 11:29 | XMS_ITS | Continuity of Care Document ---
:1955 Author Organization [facility] Address [address] [place] [address]- Care Team Providers Name Role Phone True VILLALOBOS, Nandini Perez Primary Care Physician Encounter [facility] Date(s): 06/16/19 - 06/23/19 [facility] [address] [place] [phone]- [facility] Attending Physician: Shai Griffith MD Allergies, Adverse Reactions, [...] 6 Refills, Maintenance, 06/23/19 10:49:00 EDT, Aerosol, [facility], 2 puffs Inhalation 2 times [...] Refills, Maintenance, 05/04/19 11:21:00 EST, ER Tablet, [facility], 147.32, cm, [...] 199:29:34 EDT, Aerosol, Route to Pharmacy Electronically, [id number], [facility] Start Date: 12/20/18 Status: OrderedSingulair 10 mg oral tablet 1 tablet = 10 mg, By Mouth, Daily before dinner, 0 Refills, Maintenance Start Date: 12/01/12 Status: OrderedSingulair 10 mg oral tablet 10 mg, 1, tablet, By Mouth, Daily, # 30 tablet, Refills 11, Tot. Refills 11, Maintenance, 03/18/19 10:12:00 EST, Route to Pharmacy Electronically, [facility], 147.32, cm, 03/18/19 10:05:00 EST, Height, 84, kg, 10/06/18 15:57:0... Start Date: 03/18/19 Status: OrderedSpiriva Respimat 1.25 mcg/inh inhalation aerosol 2 puffs, Inhalation, Daily, # 4 Gm, 11 Refills, Maintenance, 03/18/19 10:11:00 EST, Aerosol, [facility], 147.32, cm, 03/18/19 10:05:00 EST, Height, [...]
--- OUTSIDE RECORDS SUMMARY | 2022-02-16 11:29 | XMS_ITS | Continuity of Care Document ---
:1955 Author Organization [facility] Address [address] [place] [address]- Care Team Providers Name Role Phone True VILLALOBOS, Nandini Perez Primary Care Physician [facility] [id number] Date(s): 03/13/21 - 04/12/21 [facility] [address] [place] [address]- Allergies, Adverse Reactions, Alerts No Known Allergies Medications Acetaminophen 1000mgs, By Mouth, 3 times a day, PRN as needed for pain, 0 Refills, Maintenance, 12/01/12 11:40:28 Start Date: 12/01/12 Status: OrderedAdvair HFA 115 mcg / 21 mcg 2 puffs, Inhalation, 2 times a day, rinse mouth and throat after use, j44.9, # 1 each, 5 Refills, Maintenance, 12/24/20 13:49:00 EDT, Aerosol, [facility], 2 puffs Inhalation 2 timesa [...] 199:29:34 EDT, Aerosol, Route to Pharmacy Electronically, [id number], [facility] - Start Date: 12/20/18 Status: OrderedSingulair 10 mg oral tablet 1 tablet = 10 mg, By Mouth, Daily before dinner, 0 Refills, Maintenance Start Date: 12/01/12 Status: OrderedSingulair 10 mg oral tablet 10 mg, 1, tablet, By Mouth, Daily, # 30 tablet, Refills 5, Tot. Refills 5, Maintenance, 03/14/21 11:36:00 EST, Route to Pharmacy Electronically, [facility], 147.32, cm, 06/07/19 11:19:00 EDT, Height, 84.5, kg, 06/07/19 11:19:00 EDT... Start Date: 03/14/21 Status: OrderedSpiriva Respimat 1.25 mcg/inh inhalation aerosol 2 puffs, Inhalation, Daily, j44.9, # 1 each, 5 Refills, Maintenance, 03/13/21 15:38:00 EST, Aerosol,[facility], 147.32, cm, 06/07/19 11:19:00 EDT, [...]
--- OUTSIDE RECORDS SUMMARY | 2022-02-16 11:29 | XMS_ITS | Continuity of Care Document ---
:1955 Author Organization [facility] Address [address] [place] [address]- Care Team Providers Name Role Phone True VILLALOBOS, Nandini Perez Primary Care Physician Encounter [facility] Date(s): 05/06/19 - 05/16/19 [facility] [address] [place] [address] [facility] Attending Physician: Jose Shea Admitting Physician: AdmtrJose [...] Refills, Maintenance, 05/04/19 11:21:00 EST, ER Tablet, [facility], 147.32, cm, 05/04/19 [...] 199:29:34 EDT, Aerosol, Route to Pharmacy Electronically, [id number], [facility] Start Date: 12/20/18 Status: OrderedSingulair 10 mg oral tablet 1 tablet = 10 mg, By Mouth, Daily before dinner, 0 Refills, Maintenance Start Date: 12/01/12 Status: OrderedSingulair 10 mg oral tablet 10 mg, 1, tablet, By Mouth, Daily, # 30 tablet, Refills 11, Tot. Refills 11, Maintenance, 03/18/19 10:12:00 EST, Route to Pharmacy Electronically, [facility], 147.32, cm, 03/18/19 10:05:00 EST, Height, 84, kg, 10/06/18 15:57:0... Start Date: 03/18/19 Status: OrderedSpiriva Respimat 1.25 mcg/inh inhalation aerosol 2 puffs, Inhalation, Daily, # 4 Gm, 11 Refills, Maintenance, 03/18/19 10:11:00 EST, Aerosol, [facility], 147.32, cm, 03/18/19 10:05:00 EST, Height, 84, kg, 10/06/18 15:57:00 EDT, Dry Weight Start Date: 03/18/19 Status: OrderedSymbicort 160mcg/4.5mcg Inhaler 2, puffs, Inhalation, 2 times a day, # 60 puffs, Refills 6, Tot. Refills 6, Maintenance, 12/20/18 9:28:25 EDT, Aerosol, Route to Pharmacy Electronically, [id number], [facility] Start Date: 12/20/18 Status: OrderedtraZODone 150 mg [...]
--- OUTSIDE RECORDS SUMMARY | 2022-02-16 11:29 | XMS_ITS | Continuity of Care Document ---
:1955 Author Organization [facility] Address [address] [place] [id number]- Care Team Providers Name Role Phone True VILLALOBOS, Nandini Perez Primary Care Physician En[place] [facility] Date(s): 12/24/20 - 05/26/21 [facility] [address] [place] [id number] Attending Physician: Merrill Bhatt MD [...] 5 Refills, Maintenance, 12/24/20 13:49:00 EDT, Aerosol, [facility], 2 puffs Inhalation 2 [...] 199:29:34 EDT, Aerosol, Route to Pharmacy Electronically, [id number], [facility] - Start Date: 12/20/18 Status: OrderedSingulair 10 mg oral tablet 1 tablet = 10 mg, By Mouth, Daily before dinner, 0 Refills, Maintenance Start Date: 12/01/12 Status: OrderedSingulair 10 mg oral tablet 10 mg, 1, tablet, By Mouth, Daily, # 30 tablet, Refills 5, Tot. Refills 5, Maintenance, 03/14/21 11:36:00 EST, Route to Pharmacy Electronically, [facility], 147.32, cm, 06/07/19 11:19:00 EDT, Height, 84.5, kg, 06/07/19 11:19:00 EDT... Start Date: 03/14/21 Status: OrderedSpiriva Respimat 1.25 mcg/inh inhalation aerosol 2 puffs, Inhalation, Daily, j44.9, # 1 each, 5 Refills, Maintenance, 03/13/21 15:38:00 EST, Aerosol,[facility], 147.32, cm, 06/07/19 11:19:00 [...]
--- OUTSIDE RECORDS SUMMARY | 2022-02-16 11:29 | XMS_ITS | Continuity of Care Document ---
:1955 Author Organization [facility] Address [address] [place] [address]- Care Team Providers Name Role Phone Nandini Biswas NP, V Primary Care Physician [facility] [id number] Date(s): 06/21/21 - 07/21/[address] [address] Attending Physician: Jose Shea [...] 5 Refills, Maintenance, 12/24/20 13:49:00 EDT, Aerosol, [facility], 2 puffs Inhalation 2 timesa day,Instr:rinse [...] 199:29:34 EDT, Aerosol, Route to Pharmacy Electronically, [id number], [facility] - Start Date: 12/20/18 Status: OrderedSingulair 10 mg oral tablet 1 tablet = 10 mg, By Mouth, Daily before dinner, 0 Refills, Maintenance Start Date: 12/01/12 Status: OrderedSingulair 10 mg oral tablet 10 mg, 1, tablet, By Mouth, Daily, # 30 tablet, Refills 5, Tot. Refills 5, Maintenance, 03/14/21 11:36:00 EST, Route to Pharmacy Electronically, [facility], 147.32, cm, 06/07/19 11:19:00 EDT, Height, 84.5, kg, 06/07/19 11:19:00 EDT... Start Date: 03/14/21 Status: OrderedSpiriva Respimat 1.25 mcg/inh inhalation aerosol 2 puffs, Inhalation, Daily, j44.9, # 1 each, 5 Refills, Maintenance, 03/13/21 15:38:00 EST, Aerosol,[facility], 147.32, cm, 06/07/19 11:19:00 EDT, Height, [...]
--- OUTSIDE RECORDS SUMMARY | 2022-02-16 11:29 | XMS_ITS | Continuity of Care Document ---
:1955 Author Organization [facility] Address [address] [place] [address]- Care Team Providers Name Role Phone True VILLALOBOS, Nandini Perez Primary Care Physician Encounter [facility] Date(s): 05/01/20 - 05/31/20 [facility] [address] [place] [address] Allergies, Adverse Reactions, Alerts Substance Reaction Severity [...] 6 Refills, Maintenance, 05/01/20 9:36:00 EST, Aerosol, [facility], 2 puffs Inhalation 2 times a [...] Refills, Maintenance, 05/30/20 8:17:00 EST, ER Tablet, [facility], 147.32, cm, 06/07/19 11:19:00 [...] :29:34 EDT, Aerosol, Route to Pharmacy Electronically, [id number], [facility] - Start Date: 12/20/18 Status: OrderedSingulair 10 mg oral tablet 1 tablet = 10 mg, By Mouth, Daily before dinner, 0 Refills, Maintenance Start Date: 12/01/12 Status: OrderedSingulair 10 mg oral tablet 10 mg, 1, tablet, By Mouth, Daily, # 30 tablet, Refills 11, Tot. Refills 11, Maintenance, 03/29/20 12:08:00 EST, Route to Pharmacy Electronically, [facility], 147.32, cm, 06/07/19 11:19:00 EDT, Height, 84.5, kg, 06/07/19 11:19:00 E... Start Date: 03/29/20 Status: OrderedSpiriva Respimat 1.25 mcg/inh inhalation aerosol 2 puffs, Inhalation, Daily, j44.9, # 1 each, 6 Refills, Maintenance, 05/01/20 14:53:00 EST, Aerosol,[facility], 147.32, cm, 06/07/19 11:19:00 [...]
--- OUTSIDE RECORDS SUMMARY | 2022-02-16 11:29 | XMS_ITS | Continuity of Care Document ---
:1955 Author Organization [facility] Address [address] [address]- Care Team Providers Name Role Phone True VILLALOBOS, Nandini Perez Primary Care Physician [facility] [id number] Date(s): 12/26/21 - 01/25/22 [facility] [address] [place] [address] Allergies, Adverse Reactions, Alerts No Known Allergies Medications Acetaminophen 1000mgs, By Mouth, 3 times a day, PRN as needed for pain, 0 Refills, Maintenance, 12/01/12 11:40:28 Start Date: 12/01/12 Status: OrderedAdvair HFA 115 mcg / 21 mcg 2 puffs, Inhalation, 2 times a day, rinse mouth and throat after use, j44.9, # 1 each, 5 Refills, Maintenance, 12/24/20 13:49:00 EDT, Aerosol, [facility], 2 puffs Inhalation 2 timesa [...] 199:29:34 EDT, Aerosol, Route to Pharmacy Electronically, [id number], [facility] - Start Date: 12/20/18 Status: OrderedSingulair 10 mg oral tablet 1 tablet = 10 mg, By Mouth, Daily before dinner, 0 Refills, Maintenance Start Date: 12/01/12 Status: OrderedSingulair 10 mg oral tablet 10 mg, 1, tablet, By Mouth, Daily, # 30 tablet, Refills 3, Tot. Refills 3, Maintenance, 09/11/21 11:41:00 EDT, Route to Pharmacy Electronically, [facility] Start Date: 09/11/21 Status: OrderedSingulair 10 mg oral tablet 10 mg, 1, tablet, By Mouth, Daily, # 30 tablet, Refills 6, Tot. Refills 6, Maintenance, 12/26/21 18:24:00 EDT, Route to Pharmacy Electronically, [facility], j45.9 Start Date: 12/26/21 Status: [...] PersonnelName: Nandini Biswas NP, V Address: Address: [address] [place] [address] [address] [place] [address], [facility] [place] [address]-
--- OUTSIDE RECORDS SUMMARY | 2022-02-16 11:30 | XMS_ITS ---
:1955 Author Organization [facility] Address [address] [place] [address] Care Team Providers Name Role Phone Jason Lora Unavailable Unavailable PROBLEMS Type Condition ICD9-CM Code YUK88-IS Onset Condition SNOMED Code Code Dates Status Problem History of Z86.19 Active 833702631 [id number] hepatitis C Problem Chronic K29.50 Active 90396054 gastritis without bleeding, unspecified gastritis type Problem Other cirrhosis K74.69 Active 1993 3007 of liver Problem Fatty liver K76.0 Active 76178621 7 Problem Encounter for Z12.11 Active 411727 004 screening for malignant neoplasm of colon ALLERGIES No Known Allergies ENCOUNTERS Encounter Location Date Diagnosis [facility] [address], Ot her cirrhosis of liver [facility] [address] K74.69 ; [place] [address] K76.0 and Histor y of hepatitis C Z86. 19 [facility] [address] July, [facility] [address] [address] [facility] [address] Jun, [facility] [address] [address] [facility] [address] July, [facility] [address] [address] [facility] [address] Jun, [facility] [address] [address] [facility] [address] Jun, [facility] [address] [address] [facility] [address] Jun, Ot her cirrhosis of liver [facility] [address] K74.69 ; [place] [address] K76.0 and Histor y of hepatitis C Z86. 19 [facility] [address] Jun, [facility] [address] [address] [facility] [address] Aug, [facility] [address] [address] [facility] [address] July, [facility] [address] [address] [facility] [address] Jun, [facility] [address] [address] [facility] [address] Jun, Ot her cirrhosis of liver [facility] [address] K74.69 ; [place] [address] K76.0 ; History of hepatitis C Z86. 19 and Chronic gastriti s without bleeding, unspec ified gastritis type K 29.50 [facility] [address] Apr, [facility]oc [facility] [address] [place] [address] [facility] [address] July, [facility]oc [facility] [address] [place] [address] [facility] [address] [place] [address] Apr, [place] [id number] [facility] [address] Apr, Assoc [facility] [address] [address] [facility] [address] Feb, [facility] [address] [address] [facility] [address] Feb, Ot her cirrhosis of liver [facility] [address] K74.69 ; [place] [address] K76.0 ; Encounte r for screening for ma lignant neoplasm of colo n Z12.11 and History of h epatitis C Z86.19 [facility] [address] July, [facility] [address] [place] [address] [facility] [address] Feb, Fa tty liver K76.0 ; Other [facility] [address] cirrhosis of chen er K74.69 [address] and Encounter fo r screening for ma lignant neoplasm of colo n Z12.11 [facility] [address] Oct, [facility]oc [facility] [address] [address] [facility] [address] Jan, Fa tty liver K76.0 and [facility]oc [facility] [address] [place] Other cirrhosis of liver [address] K74.69 [facility] [address] Oct, [facility]oc [facility] [address] [address] [facility] [address] Jan, [facility] [address] [address] [facility] [address] Jan, [facility]oc [facility] [address] [address] [facility] [address] Jan, Ot her cirrhosis of liver [facility] [address] K74.69 and Fatty liver [address] K76.0 [facility] [address] Nov, [facility]oc [facility] [address] [address] [facility] [address] Sep, Assoc [facility] [address] [place] [address] [facility] [address] Nov, [facility] [address] [place] [address] [facility] [address] Aug, Fa tty liver 571.8 ; [facility] [address] Constipation 564 .00 and [address] Liver function s tudy, abnormal 794.8 [facility] [address] Feb, [facility] [address] [address] [facility] [address] Aug, Fa tty liver 571.8 and [facility] [address] Liver function s tudy, [address] abnormal 794.8 [facility] [address] Aug, [facility]oc [facility] [address] [address] [facility] [address] Dec, [facility] [address] [address] [facility] [address] Aug, Ot her chronic [facility] [address] [place] [address] disease 571.8 [facility] [address] [facility] Aug, [place] [id number] [facility] [address] Oct, [place] [id number] [facility] [address] Oct, [place] [id number] [facility] [address] Jun, [place] [id number] [facility] [address] May, [place] [id number] [facility] [address] Dec, [place], [place] [id number] [facility] [address] Mar, [place] [id number] [facility] [address] Jun, [place] [id number] [facility] [address] Nov, [place] [id number] [facility] [address] Mar, [place] [id number] IMMUNIZATIONS Vaccine Route Administration Date Status Influenza Unknown Nov 22, 2019 Administered Influenza Unknown Jan 21, 2019 Administered Influenza Unknown Dec 21, 2017 Administered SOCIAL HISTORY Never Assessed REASON FOR REFERRAL FUNCTIONAL STATUS PLAN OF CARE Activity Details Follow Up 6 Months Reason: Future Appointment Provider Name:Jason Lora , 2022-02-25 09:30:00 AM, [address], [address], [place], [address], Pending Test Liver Panel Pending Test LIVER PROFILE Pending Test ALPHA-FETOPROTEIN,TUMOR KUNAL ER Pending Test Alpha Fetoprotein Pending Test LIVER PROFILE Pending Test CBC w DIFF Pending Test PROTHROMBIN TIME (PT, INR) Pending Test ALPHA-FETOPROTEIN,TUMOR KUNAL ER Pending Test US ABD Pending Test ALPHA-FETOPROTEIN,TUMOR KUNAL ER Pending Test US ABD Pending Test LIVER PROFILE Pending Test ALPHA-FETOPROTEIN,TUMOR KUNAL ER Pending Test LIVER PROFILE Pending Test ALPHA-FETOPROTEIN,TUMOR KUNAL ER Future/Pending Procedure COLONOSCOPY [id number] Future/Pending Procedure UPPER GI ENDOSCOPY [id number] VITAL SIGNS Weight 180 lbs 2021-08-22 Weight 194 lbs 2020-07-03 Weight 186 lbs 2019-06-22 Weight 180 lbs 2018-03-05 Weight 172 lbs 2017-03-12 Weight 184 lbs 2016-01-22 Weight 191 lbs 2015-02-02 Weight 183 lbs 2013-09-15 Weight 184 lbs 2012-08-27 Weight 197 lbs 2011-08-26 Height 58 in 2021-08-22 Height 58 in 2020-07-03 Height 58 in 2019-06-22 Height 58 in 2018-03-05 Height 58 in 2017-03-12 Height 58 in 2016-01-22 Height 58 in 2015-02-02 Height 58 in 2013-09-15 Height N/A in 2012-08-27 Height 58 in 2011-08-26 BMI 37.62 kg/m2 2021-08-22 BMI 40.54 kg/m2 2020-07-03 BMI 38.87 kg/m2 2019-06-22 BMI 37.62 kg/m2 2018-03-05 BMI 35.94 kg/m2 2017-03-12 BMI 38.45 kg/m2 2016-01-22 BMI 39.91 kg/m2 2015-02-02 BMI 38.24 kg/m2 2013-09-15 BMI 38.45 kg/m2 2012-08-27 BMI 41.17 kg/m2 2011-08-26 Heart Rate 72 /min 2017-03-12 Heart Rate 72 /min 2013-09-15 Heart Rate 60 /min 2011-08-26 Temperature 97.3 degrees Fahrenheit 2021-08-22 Temperature 97.5 degrees Fahrenheit 2020-07-03 Blood pressure systolic 000 mm Hg 2021-08-22 Blood pressure diastolic 00 mm Hg 2021-08-22 MEDICATIONS Medication Instructions Dosage Frequency Start End Date Duration Stat us clonazePAM 0.5 30 Active MG glipiZIDE XL Active 5mg Calcium 600 + Active D 600mg metFORMIN HCl Active 500mg KlonoPIN 0.5 Orally Twice a 1 tablet 12h Act laura MG day Flovent HFA Active 12mg Vitamin D Active 1000unit Aspirin EC Active 81mg HYDROcodone-Ac Orally every 6 1 capsule 6h Active etaminophen hrs as needed 5-500 MG Magdiel 250 250 Orally BID 3 tablets 12h 08 Nov, Active MG 2013 Singulair 10mg Active Omeprazole 20 Orally Once a 1 24h 11 Aug, day(s) Ac tive MG day 2019 Omeprazole 20 Orally Once a 1 24h July, day(s) Ac tive MG day 2020 SudoGest 30 MG 30 Active Ursodiol 250 Orally BID 3 12h 24 July, Active MG 2017 Omeprazole 20 Orally Once a 1 capsule 24h Ac tive MG day 30 minutes before morning meal oxyCODONE HCl Orally every 6 5 ml as 6h Act laura 5 MG/5ML hrs needed ProAir HFA 108 Inhalation every 2 puffs as 4h Active (90 Base) 4 hrs needed MCG/ACT traZODone HCl Orally Once a 1 tablet at 24h Active 150 MG day bedtime Ursodiol 250 Orally Twice a 3 12h July, day(s) Ac tive MG day 2019 Ursodiol 250 Orally Twice a 3 12h Jun, day(s) Ac tive MG day 2020 Ursodiol 250 Orally BID 3 12h July, days Active MG 2018 Omeprazole 20 Orally QAM 1 12 July, day(s) Activ e MG 2021 Ursodiol 250 Orally Twice a 3 12h 11 Jun, day(s) Ac tive MG day 2021 PROCEDURES Procedure Date Ordered Result Body Site COLORECTAL CA SCREEN DOC REV June 22, 2019 TOBACCO NON-USER August 22, 2021 TOBACCO NON-USER July 03, 2020 TOBACCO NON-USER June 22, 2019 DOC MEDS VERIFIED W/PT OR RE June 22, 2019 DOC MEDS VERIFIED W/PT OR RE Mar 05, 2018 COLORECTAL CA SCREEN DOC REV August 22, 2021 BP SCR NOT PRFRM REC REASON NOS August 22, 2021 FLU IMMUNIZE ORDER/ADMIN Mar 05, 2018 BP SCR PRFRM RCMDD DEFIND SCR INTVL July 03, 2020 COLORECTAL CA SCREEN DOC REV July 03, 2020 BP SCR PRFRM RCMDD DEFIND SCR INTVL June 22, 2019 BMI >=30 CALCUATE W/FOLLOWUP Mar 05, 2018 COLORECTAL CA SCREEN DOC REV Mar 05, 2018 DOC MEDS VERIFIED W/PT OR RE August 22, 2021 BP SCR PRFRM RCMDD DEFIND SCR INTVL Mar 05, 2018 DOC MEDS VERIFIED W/PT OR RE July 03, 2020 TOBACCO NON-USER Mar 05, 2018 RESULTS Name Result Date Reference Range Alpha Fetoprotein 2021-09-24 Alpha Fetoprotein 1.5 US abdomen complete 2020-07-25 Complete Blood Count Auto Diff 2020-07-09 White Blood Count 6.2 4.8-10.8 Red Blood Count 4.13 4.20-5.50 Hemoglobin 12.6 12.0-16.0 Hematocrit 37.1 37-47 Mean Corpuscular Volume 89.8 80-98 Mean Corpuscular Hemoglobin 30.5 27.0 -33.0 Mean Corpuscular HGB Conc 34.0 31.0-3 5.0 Red Cell Distribution Width 12.0 11.0 -16.0 Platelet Count 269 160-400 Mean Platelet Volume 9.6 9.4-12.3 Neutrophils Percent Auto 51.6 45-73 Imm Gran Pct Auto 0.2 0.0-0.4 Lymphocytes Percent Auto 34.7 20-40 Monocytes Percent Auto 7.3 2-11 Eosinophils Percent Auto 5.7 0-4 Basophils Percent Auto 0.5 0-2 NRBC Pct Auto 0.0 0.0-0.2 Neutrophils Absolute Auto 3.2 2.0-8. 3 Imm Gran Abs Auto 0.01 0.00-0.03 Lymphocytes Absolute Auto 2.1 1.2-4. 9 Monocytes Absolute Auto 0.5 0.1-1.2 Eosinophils Absolute Auto 0.4 0.0-0. 4 Basophils Absolute Auto 0.0 0.0-0.2 NRBC Abs Auto 0.000 0.0-0.012 Prothrombin Time INR 2020-07-09 Prothrombin Time 12.2 10.8-13.0 INTERNATIONAL NORM RATIO 1.0 0.9-1.1 Liver Panel 2020-07-09 Bilirubin Total 0.7 0.0-1.0 Bilirubin Direct 0.2 0.0-0.5 Aspartate Amino Transferase 20 5-31 Alanine Aminotransferase 31 0-31 Total Protein 6.8 6.5-8.0 Albumin Level 3.9 3.5-5.0 Alkaline Phosphatase 100 39-117 LIVER PROFILE 2019-06-22 PROTEIN, TOTAL 7.0 6.5-8.0 ALBUMIN 4.2 3.5-5.0 BILIRUBIN, TOTAL 0.5 0.0-1.0 BILIRUBIN, DIRECT 0.2 0.0-0.5 ALK. PHOS. 97 39-117 GOT 20 5-31 GPT 28 0-31 CBC w DIFF 2019-06-22 WBC 8.2 4.8-10.8 ABSOLUTE NEUTROPHIL COUNT 4.6 2.2-7. 9 RBC 4.53 4.20-5.50 HEMOGLOBIN 14.0 12.0-16.0 HEMATOCRIT 41.4 37-47 MCV 91.3 80-98 MCH 30.9 27.0-33.0 MCHC 33.8 31.0-35.0 PLATELET COUNT 290 160-400 RDW 11.1 11.0-16.0 NEUTROPHILS 56.7 45-73 LYMPHOCYTES 30.4 20-40 MONOCYTES 5.7 2-11 EOSINOPHILS 6.0 0-4 BASOPHILS 1.2 0-2 PROTHROMBIN TIME (PT, INR) 2019-06-22 INTERNATIONAL NORM. RATIO 1.0 SEE NO TE PROTHROMBIN TIME 12.2 10.8-13.0 ALPHA-FETOPROTEIN,TUMOR MARKER 2019-06-22 ALPHA-FETOPROTEIN,TUMOR MARKER 1.8 < 6.1 GLUCOSE,WHOLE BLOOD 2018-05-03 GLUCOSE,WHOLE BLOOD 161 60-115 GI BIOPSY 2018-05-03 G.I. BIOPSY LIVER PROFILE 2018-03-08 PROTEIN, TOTAL 7.2 6.5-8.0 ALBUMIN 4.2 3.5-5.0 BILIRUBIN, TOTAL 0.2 0.0-1.0 BILIRUBIN, DIRECT < 0.2 0.0-0.5 ALK. PHOS. 86 39-117 GOT 22 5-31 GPT 24 0-31 CBC w DIFF 2018-03-08 WBC 7.3 4.8-10.8 ABSOLUTE NEUTROPHIL COUNT 3.5 2.2-7. 9 RBC 4.29 4.20-5.50 HEMOGLOBIN 13.3 12.0-16.0 HEMATOCRIT 37.7 37-47 MCV 87.9 80-98 MCH 31.0 27.0-33.0 MCHC 35.3 31.0-35.0 PLATELET COUNT 261 160-400 RDW 10.8 11.0-16.0 NEUTROPHILS 48.1 45-73 LYMPHOCYTES 41.0 20-40 MONOCYTES 4.8 2-11 EOSINOPHILS 4.7 0-4 BASOPHILS 1.4 0-2 PROTHROMBIN TIME (PT, INR) 2018-03-08 INTERNATIONAL NORM. RATIO 0.9 SEE NO TE PROTHROMBIN TIME 11.0 10.8-13.0 ALPHA-FETOPROTEIN,TUMOR MARKER 2018-03-08 ALPHA-FETOPROTEIN,TUMOR MARKER 2.4 < 6.1 ALPHA-FETOPROTEIN,TUMOR MARKER 2017-03-25 ALPHA-FETOPROTEIN,TUMOR MARKER 2.9 < 6.1 ALPHA-FETOPROTEIN,TUMOR MARKER 2015-02-05 ALPHA-FETOPROTEIN,TUMOR MARKER 2.6 < 6.1 HCV LIVER FIBROSIS, FIBRO TEST 2015-02-05 FIBROSIS SCORE 0.25 () FIBROSIS STAGE F0-F1 () FIBROSIS INTERPRETATION SEE NOTE () NECROINFLAMMAT ACTIVITY SCORE 0.08 () NECROINFLAMMAT ACTIVITY GRADE A0 () NECROINFLAMMAT ACTIVITY INTERP SEE NOTE ( ) QHJPL-5-AVYYVSTPRNMY 355 106-279 HAPTOGLOBIN 180 43-212 APOLIPOPROTEIN A1 141 101-198 TOTAL BILIRUBIN 0.3 0.2-1.2 GGT 14 3-70 ALT 21 6-29 REFERENCE ID [id number] () FOOTNOTE SEE NOTE () LIVER PROFILE 2013-09-26 PROTEIN, TOTAL 7.1 6.5-8.0 ALBUMIN 3.9 3.5-5.0 BILIRUBIN, TOTAL 0.5 0.0-1.0 BILIRUBIN, DIRECT 0.2 0.0-0.5 ALK. PHOS. 84 39-117 GOT 13 <3-31 GPT 19 <6-31 ALPHA-FETOPROTEIN,TUMOR MARKER 2013-09-26 ALPHA-FETOPROTEIN,TUMOR MARKER 2.7 < 6.1 LIVER PROFILE 2012-09-07 PROTEIN, TOTAL 6.7 6.5-8.0 ALBUMIN 3.5 3.5-5.0 BILIRUBIN, TOTAL 0.5 0.0-1.0 BILIRUBIN, DIRECT 0.2 0.0-0.5 ALK. PHOS. 65 39-117 GOT 21 <3-31 GPT 28 <6-31 ALPHA-FETOPROTEIN,TUMOR MARKER 2012-09-07 ALPHA-FETOPROTEIN,TUMOR MARKER 2.0 < 6.1 US ABD 2012-09-16 LIVER PROFILE 2011-08-26 PROTEIN, TOTAL 7.4 6.5-8.0 ALBUMIN 4.1 3.5-5.0 BILIRUBIN, TOTAL 0.5 0.0-1.0 BILIRUBIN, DIRECT 0.2 0.0-0.5 ALK. PHOS. 112 39-117 GOT 29 <3-31 GPT 42 <6-31 ALPHA-FETOPROTEIN,TUMOR MARKER 2011-08-26 ALPHA-FETOPROTEIN,TUMOR MARKER 2.8 < 6.1 REASON FOR VISIT Patient presents today for cirrhosis, hx hep c, FATTY LIVER , refill: Omeprazole , r/f request , recall ov, patient presents today for cirrhosis, COVID Screen, omeprazole , REFILL REQUEST ON URSODIOL, 1 yr ov recall, patient presents today for f/u for cirrhosis , Pt no show, Patient presents today forOFFICE RECALL, cirrhosis of liver, screening, day of procedure is it ok to take her lisinopril 10mg-hctz 25mg? , send over prep, patient presents today for colon recall, R/F REQUEST /URSODIOL, PATIENT PRESENTS TODAY FOR Office Recall, Needs refill, Office Recall, refill request, put on colon recall for 12/2017, put on one year OV follow up, yrly follow up, refill, No show, yearly f/u, refill request, refill, yrly, needs refill, refill, f/u liver Insurance Providers [facility] Member Patient Patient Patient Patient Patient Subscriber Subscriber Subscriber Group Insurance Plan Plan Plan Plan ID Relationship Address Phone Name Date of ID Name Date of No Type Insurance Insurance Insurance Coverage to Subscriber Address Phone Name Dates [employer] [phone] [employer] self TRUPTI 1 [id number] TH [facility] [address] [facility] [address] MEDICAID [phone] MEDICAID self TRUPT[place] [id number] OF [employer]) [id number] OF [employer] ANDREZ [address] [place] [address] [employer] [phone] [employer] self TRUPTI [id number] 1 [id number] [facility] [id number] Health ANDREZ [facility] [id number] [facility] [id number] HEALTH NEW self TRUPTI [id number] 1 [id number] [facility] [address] [facility] [address]
--- OUTSIDE RECORDS SUMMARY | 2022-02-16 11:30 | XMS_ITS | Continuity of Care Document ---
:1955 Author Organization [facility] Address [address] [place] [id number]- Care Team Providers Name Role Phone True VILLALOBOS, Nandini Perez Primary Care Physician Encounter [facility] [id number] Date(s): 06/14/21 - 08/14/[address] [address] Discharge Disposition: A-D/C Home Attending Physician: Nandini Biswas NP, V Admitting Physician: Nandini Biswas NP, V Referring Physician: Nandini Biswas NP, V Allergies, [...] 5 Refills, Maintenance, 12/24/20 13:49:00 EDT, Aerosol, [facility], 2 puffs Inhalation 2 timesa [...] 199:29:34 EDT, Aerosol, Route to Pharmacy Electronically, [id number], [facility] - Start Date: 12/20/18 Status: OrderedSingulair 10 mg oral tablet 1 tablet = 10 mg, By Mouth, Daily before dinner, 0 Refills, Maintenance Start Date: 12/01/12 Status: OrderedSingulair 10 mg oral tablet 10 mg, 1, tablet, By Mouth, Daily, # 30 tablet, Refills 5, Tot. Refills 5, Maintenance, 03/14/21 11:36:00 EST, Route to Pharmacy Electronically, [facility], 147.32, cm, 06/07/19 11:19:00 EDT, Height, 84.5, kg, 06/07/19 11:19:00 EDT... Start Date: 03/14/21 Status: OrderedSpiriva Respimat 1.25 mcg/inh inhalation aerosol 2 puffs, Inhalation, Daily, j44.9, # 1 each, 5 Refills, Maintenance, 03/13/21 15:38:00 EST, Aerosol,[facility], 147.32, cm, 06/07/19 11:19:00 EDT, [...]
--- OUTSIDE RECORDS SUMMARY | 2022-02-16 11:30 | XMS_ITS ---
:1955 Author Care Team Providers Name Role Phone [facility] Primary Care Provider [phone] Allergies Code Code System Name Reaction Severity Status Onset NKDA ? Medications Name Status Start Date Stop Date ? ? Advair HFA 115 mcg-21 mcg/actuation aerosol inhaler Active ? Not available INHALE 2 PUFFS TWICE DAILY. RINSE MOUTH AFTER USING. amlodipine 2.5 mg tablet Active ? Not samy ilable TAKE 1 TABLET BY MOUTH EVERY EVENING atorvastatin 20 mg tablet Active ? Not av ailable baclofen 10 mg tablet Active ? Not availa ble benzonatate 100 mg capsule Active ? Not a vailable TAKE 1 CAPSULE BY MOUTH THREE TIMES DAILY NEEDED FOR COUGH Breo Ellipta 200 mcg-25 mcg/dose powder for inhalation Active ? Not available Calcium 600 + D(3) 600 mg-5 mcg (200 unit) tablet Active ? Not available calcium carbonate 600 mg-vitamin D3 10 mcg (400 unit) tablet Act laura ? Not available TAKE 1 TABLET BY MOUTH EVERY MORNING cephalexin 500 mg capsule Active ? Not av ailable clonazepam 0.5 mg tablet Active ? Not samy ilable darifenacin ER 15 mg tablet,extended release 24 hr Active ? Not available TAKE 1 TABLET BY MOUTH EVERY MORNING doxycycline hyclate 100 mg tablet Active ? Not available Flucelvax Quad (PF) 60 mcg (15 mcg x 4)/0.5 mL IM Acti ve ? Not available syringe fluticasone propionate 50 mcg/actuation nasal spray,suspension A ctive ? Not available INHALE 1 SPRAY IN EACH NOSTRIL TWICE DAILY hydrocodone 5 mg-acetaminophen 325 mg tablet Active ? Not available TAKE 1 TABLET BY MOUTH EVERY 8 HOURS NEEDED FOR PAIN lisinopril 10 mg-hydrochlorothiazide 12.5 mg tablet Active ? Not available TAKE 1 TABLET BY MOUTH EVERY MORNING loratadine 10 mg tablet Active ? Not avai lable metformin 500 mg tablet Active ? Not avai lable montelukast 10 mg tablet Active ? Not samy ilable TAKE 1 TABLET BY MOUTH EVERY EVENING Mucus Relief ER 600 mg tablet, extended release Active ? Not available TAKE 1 TABLET BY MOUTH EVERY TWELVE HOURS NEEDED FOR COUGH naproxen 500 mg tablet Active ? Not avail able TAKE 1 TABLET BY MOUTH TWICE DAILY NEEDED FOR PAIN omeprazole 20 mg capsule,delayed release Active ? Not available TAKE 1 CAPSULE BY MOUTH EVERY MORNING oxycodone 5 mg tablet Active ? Not availa ble Pain Relief Extra Strength (acetaminophen) 500 mg tablet Active ? Not available TAKE 1 TABLET BY MOUTH EVERY 6 HOURS NEEDED FOR PAIN OR FEVE R polyethylene glycol 3350 17 gram/dose oral powder Active ? Not available prednisolone acetate 1 % eye drops,suspension Active ? Not available PLACE 1 DROP IN EACH EYE FOUR TIMES DAILY FOR FOUR DAYS THEN [address] OP Shingrix (PF) 50 mcg/0.5 mL intramuscular suspension, kit Active ? Not available Spiriva Respimat 1.25 mcg/actuation solution for inhalation Acti ve ? Not available INHALE 2 PUFFS BY MOUTH ONCE DAILY Symbicort 160 mcg-4.5 mcg/actuation HFA aerosol inhaler Active ? Not available trazodone 100 mg tablet Active ? Not avai lable TAKE 1 TABLET BY MOUTH AT BEDTIME trazodone 150 mg tablet Active ? Not avai lable TAKE 2 TABLETS BY MOUTH EVERY DAY AT BEDTIME Triple Antibiotic 3.5 mg-400 unit-5,000 unit/gram topical Active ? Not available ointment ursodiol 250 mg tablet Active ? Not avail able TAKE 3 TABLETS BY MOUTH TWICE DAILY IN THE MORNING AND IN THE E VENING Ventolin HFA 90 mcg/actuation aerosol inhaler Active ? Not available INHALE 2 PUFFS FOUR TIMES DAILY vitamin E (dl, acetate) 180 mg (400 unit) capsule Active ? Not available TAKE 1 CAPSULE BY MOUTH EVERY MORNING Problems Name Status Onset Date Source ? 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 Right Achilles Tendonitis Active 05/31/2020 ? Procedures None recorded. Results Lab Results None recorded. Past Encounters 10/11/2020 Right Achilles Tendonitis; Posterior Pepe caneal Exostosis LORENA ChenM: [id number], [place] [phone], Ph. Social History Tobacco Smoking Status Never Smoker Vaccine List None recorded. Plan of Care Reminders Provider Appointments None recorded. ? ? Lab None recorded. ? ? Referral None recorded. ? ? Procedures None recorded. ? ? Surgeries None recorded. ? ? Imaging None recorded. ? ? Vitals 10/11/2020 01:00PM FOLLOW UP 15 Height 5 ft 4 in 05/31/2020 01:30PM FOLLOW UP 15 Height Weight BMI Blood Pressure 5 ft 4 in 156 lbs 26.8 kg/m2 118/62 mm[Hg] 01/03/2020 02:00PM NEW PATIENT 30 Height Weight BMI Blood Pressure 5 ft 4 in 156 lbs 26.8 kg/m2 122/64 mm[Hg]
[2022-02-16] MEDS: Ketorolac Tromethamine 30 MG/ML VIAL IM (12:21)
--- NOTE | 2022-02-16 12:30 | PC.NURSE ---
Patient a/ox4 . discharged with use of medical front desk coordinator . went over discharged instructions as ordered by provider . patient to follow up with orthopedics and primary care . no questions at this time .
== END 2022-02-16 12:35 | disposition home or self-care (01) ==
PROVIDERS: Emergency Provider Emergency Medicine; PCP Internal Medicine
DX: M19.011 Primary osteoarthritis, right shoulder (principal); M79.601 Pain in right arm; Z87.891 Personal history of nicotine dependence; Z79.899 Other long term (current) drug therapy
CPT/HCPCS: 73030; 93005; 96372; 99284; J1885

== ENCOUNTER → 2022-02-27 08:52 | Outpatient (BNVA) | payer OTHER, SELFPAY | PROVIDERS: PCP Internal Medicine; Visit Provider Physician Assistant | DX: M75.00 Adhesive capsulitis of unspecified shoulder (principal); E11.9 Type 2 diabetes mellitus without complications | CPT/HCPCS: 20610; 99202; J1020 ==

== ENCOUNTER → 2022-03-10 09:35 | Outpatient (BNVA) | payer OTHER, SELFPAY | PROVIDERS: PCP Internal Medicine; Referring Provider Internal Medicine; Visit Provider Nurse Practitioner Family | DX: M17.11 Unilateral primary osteoarthritis, right knee (principal); M75.01 Adhesive capsulitis of right shoulder; M79.641 Pain in right hand; M79.642 Pain in left hand | CPT/HCPCS: 99212 ==

== ENCOUNTER 2022-03-31 11:02 | Outpatient (REF) | payer OTHER, SELFPAY ==
--- NOTE | ~2022-03-31 | XR_ITS ---
EXAMINATION: XR HAND, LEFT CLINICAL INFORMATION: Left hand pain. COMPARISON: None TECHNIQUE: PA, lateral, and oblique views of the left hand. FINDINGS: Mild to moderate interphalangeal degenerative joint changes are seen most pronounced in the distal interphalangeal joints of the third and fifth digits with hypertrophic changes. There is no acute fracture or dislocation. There is no joint effusion. The soft tissues are unremarkable. XR/XR hand LT min 3V IMPRESSION: Mild to moderate interphalangeal degenerative joint changes most consistent with osteoarthritis.
--- NOTE | ~2022-03-31 | XR_ITS ---
EXAMINATION: XR HAND, RIGHT CLINICAL INFORMATION: Right hand pain. COMPARISON: None TECHNIQUE: PA, lateral, and oblique views of the right hand. FINDINGS: Moderate to severe distal interphalangeal degenerative joint changes are seen in the third digit with hypertrophic changes. Mild interphalangeal degenerative joint changes are seen in the remainder the digits, most pronounced in the distal interphalangeal joint of these fifth digit. There is no acute fracture or dislocation. The soft tissues are unremarkable. XR/XR hand RT min 3V IMPRESSION: Degenerative joint changes most consistent with osteoarthritis as detailed above.
[2022-03-31 11:14] LABS: MANUAL DIFF FLAG NO
[2022-03-31 11:53] LABS: Basophils Percent Auto 0.7 % (0-2); Eosinophils Absolute Auto 0.7 X10*3/uL (0.0-0.4); Eosinophils Percent Auto 10.9 % (0-4); Hematocrit 39.2 % (37.0-47.0); Hemoglobin 13.3 g/dl (12.0-16.0); Imm Gran Abs Auto 0.02 X10*3/uL (0.00-0.03); Imm Gran Pct Auto 0.3 % (0.0-0.4); Lymphocytes Absolute Auto 2.2 X10*3/uL (1.2-4.9); Lymphocytes Percent Auto 37.5 % (20-40); Mean Corpuscular HGB Conc 33.9 g/dl (31.0-35.0); Mean Corpuscular Hemoglobin 30.3 pg (27.0-33.0); Mean Corpuscular Volume 89.3 fL (80.0-98.0); Mean Platelet Volume 9.3 fL (9.4-12.3); Monocytes Absolute Auto 0.3 X10*3/uL (0.1-1.2); Monocytes Percent Auto 5.2 % (2-11); Neutrophils Absolute Auto 2.7 x10*3/uL (2.0-8.3); Neutrophils Percent Auto 45.4 % (45-73); Platelet Count 302 X10*3/uL (160-400); Red Blood Count 4.39 X10*6/uL (4.20-5.50); Red Cell Distribution Width 11.9 % (11.0-16.0)
[2022-03-31 12:14] LABS: Alanine Aminotransferase 24 U/L (0-31); Albumin Level 4.1 g/dL (3.5-5.0); Alkaline Phosphatase 83 U/L (39-117); Aspartate Amino Transferase 20 U/L (5-31); Bilirubin Direct 0.2 mg/dL (0.0-0.5); Bilirubin Total 0.4 mg/dL (0.0-1.0); Total Protein 7.2 g/dL (6.5-8.0)
[2022-03-31 12:16] LABS: Prothrombin Time 11.4 SEC (10.0-13.1)
[2022-04-02 13:33] LABS: Alpha Fetoprotein 1.7 ng/mL
== END 2022-03-31 11:03 | disposition home or self-care (01) ==
LOC: HO.LAB 11:02
PROVIDERS: Referring Provider Internal Medicine; Visit Provider Nurse Practitioner Family
DX: M79.641 Pain in right hand (principal); M79.642 Pain in left hand; K76.0 Fatty (change of) liver, not elsewhere classified; K74.69 Other cirrhosis of liver; Z86.19 Personal history of other infectious and parasitic diseases
CPT/HCPCS: 36415; 73130; 80076; 82105; 85025; 85610

== ENCOUNTER → 2022-04-04 11:06 | Outpatient (BNVA) | payer OTHER, SELFPAY | PROVIDERS: PCP Internal Medicine; Visit Provider Physician Assistant | DX: M75.101 Unspecified rotator cuff tear or rupture of right shoulder, not specified as traumatic (principal) | CPT/HCPCS: 99212 ==

== ENCOUNTER 2022-04-28 09:41 | Outpatient (REF) | payer OTHER, SELFPAY ==
[2022-04-28 11:11] LABS: Erythrocyte Sedimentation Rate 20 MM/HR (0-20)
[2022-04-28 11:14] LABS: C Reactive Protein 0.28 mg/dL (< or = 0.50)
[2022-04-28 11:21] LABS: Vitamin D 25-OH Total 32.3 ng/mL (>30)
== END 2022-04-28 09:42 | disposition home or self-care (01) ==
LOC: HO.LAB 09:41
PROVIDERS: Visit Provider Nurse Practitioner Family
DX: M79.641 Pain in right hand (principal); M79.642 Pain in left hand
CPT/HCPCS: 36415; 82306; 85652; 86140

== ENCOUNTER 2022-05-02 09:17 | Outpatient (REF) | payer OTHER, SELFPAY ==
--- NOTE | ~2022-05-02 | MR_ITS ---
EXAMINATION: MR SHOULDER WITHOUT CONTRAST, RIGHT CLINICAL INFORMATION: Right shoulder pain and decreased range of motion. Painful arc syndrome. COMPARISON: Right shoulder radiographs dated 02/16/2022. TECHNIQUE: MRI of the shoulder without contrast was performed on a high-field scanner. FINDINGS: ROTATOR CUFF: Supraspinatus tendinosis with full-thickness partial tearing anteriorly measuring up to 1.8 x 1.9 cm (AP by ML). There appear to be posterior tendon fibers which remain intact. Mild infraspinatus tendinosis. Subscapularis tendinosis with distal attenuation, likely indicating distal articular surface partial tearing. Mild supraspinatus and subscapularis muscle atrophy. BICEPS: Intact. CORACOACROMIAL ARCH: The undersurface of the acromion is curved with no subacromial spur. Mild acromioclavicular osteoarthritis. LABRUM/CAPSULE: No displaced labral tear. Intact inferior joint capsule. GLENOHUMERAL JOINT/MARROW: Intact glenohumeral articular cartilage. No acute osseous injury. Small joint effusion. MR/MR shoulder RT wo con IMPRESSION: 1. Supraspinatus tendinosis with full-thickness partial tearing anteriorly measuring 1.8 x 1.9 cm (AP by ML). There appear to be posterior tendon fibers which remain intact. Mild infraspinatus tendinosis. Subscapularis tendinosis with distal articular surface partial tearing. Mild supraspinatus and subscapularis muscle atrophy. 2. Mild acromioclavicular osteoarthritis. 3. Small glenohumeral joint effusion.
== END 2022-05-02 09:18 | disposition home or self-care (01) ==
LOC: HO.MRI 09:17
PROVIDERS: Visit Provider Physician Assistant
DX: M75.101 Unspecified rotator cuff tear or rupture of right shoulder, not specified as traumatic (principal)
CPT/HCPCS: 73221

== ENCOUNTER 2022-05-22 08:54 | Outpatient (REF) | payer OTHER, SELFPAY ==
--- NOTE | ~2022-05-22 | MM_ITS ---
EXAMINATION: MM SCREENING DIGITAL BREAST TOMOSYNTHESIS, BILATERAL CLINICAL INFORMATION: Screening. Asymptomatic. The lifetime risk of breast cancer based on the Tyrer-Cuzick Model is 3.5%. COMPARISON: Mammography: April 15, 2021 and studies dating back to February 12, 2016 TECHNIQUE: Digital breast tomosynthesis is performed in both the craniocaudal and mediolateral oblique views along with computer-aided detection (CAD). Synthesized 2D images are generated from the tomosynthesis. FINDINGS: The breasts are almost entirely fatty (ACR BI-RADS breast composition Category a). There are no significant masses, abnormal calcifications, or other abnormalities. MM/MM tomosynthesis screening BI IMPRESSION: No significant changes from prior exam. ASSESSMENT: BI-RADS 1: Negative RECOMMENDATION: Routine annual mammography screening. This patient's information was entered into a reminder system with a target due date for their next mammogram.
== END 2022-05-22 08:55 | disposition home or self-care (01) ==
LOC: HO.MAMMO 08:54
PROVIDERS: PCP Internal Medicine; Visit Provider Internal Medicine
DX: Z12.31 Encounter for screening mammogram for malignant neoplasm of breast (principal)
CPT/HCPCS: 77063; 77067

== ENCOUNTER 2022-06-10 09:00 | Outpatient (RCR) | payer OTHER, SELFPAY | END 2022-09-25 13:45 | disposition home or self-care (01) | LOC: HO.PT 09:00 | PROVIDERS: PCP Internal Medicine; Visit Provider Physician Assistant | DX: M75.101 Unspecified rotator cuff tear or rupture of right shoulder, not specified as traumatic (principal) | CPT/HCPCS: 97110; 97140; 97161 ==

== ENCOUNTER → 2022-06-23 09:49 | Outpatient (BNVA) | payer OTHER, MEDICAID, SELFPAY | PROVIDERS: PCP Internal Medicine; Visit Provider Physician Assistant | DX: M75.101 Unspecified rotator cuff tear or rupture of right shoulder, not specified as traumatic (principal) | CPT/HCPCS: 99212 ==

== ENCOUNTER 2022-06-23 10:48 | Emergency (ER) | payer OTHER, SELFPAY ==
--- NOTE | ~2022-06-23 | CT_ITS ---
EXAMINATION: CT ABDOMEN AND PELVIS WITH CONTRAST CLINICAL INFORMATION: Abdominal pain COMPARISON: 11/12/2021 TECHNIQUE: Multidetector volumetric images were obtained from the superior aspect of the liver through the pubic symphysis following administration 85 mL of Omnipaque 350 intravenous contrast. Sagittal and coronal reformatted images were obtained on the technologist's workstation. Oral contrast: No This CT examination was performed using dose optimization techniques as appropriate, variously including the following: *Automated exposure control *Adjustment of mA and/or kV according to patient size (this includes techniques or standardized protocols for targeted exams where dose is matched to indication/reason for exam; i.e. extremities or head) *Use of iterative reconstruction technique DLP: 780 mGy-cm FINDINGS: LUNG BASES: Bibasilar atelectasis. No dense consolidation. Mild coronary artery calcification. Elevated right hemidiaphragm. LIVER, GALLBLADDER, AND BILIARY TREE: The liver is normal in size, shape, and attenuation. No focal hepatic lesion or biliary ductal dilatation is present. The gallbladder is unremarkable with no evidence of radiopaque gallstones, gallbladder wall thickening, or obvious pericholecystic inflammatory changes. PANCREAS: Unremarkable. SPLEEN: Unremarkable. ADRENAL GLANDS: Unremarkable. KIDNEYS AND URETERS: The kidneys are normal in size, shape, and attenuation. No hydronephrosis, hydroureter, or calculi seen. No perinephric stranding. Area of calcification along the periphery of the left kidney is unchanged. BLADDER: Unremarkable. GASTROINTESTINAL TRACT: The stomach is unremarkable. Normal caliber of the small bowel. No obstruction. No colonic wall thickening or inflammation. Diminutive appendix with no acute abnormality. No free air or free fluid. ABDOMINAL WALL: No significant hernia is appreciated. LYMPH NODES: Normal. VASCULAR: Normal caliber aorta with mild atherosclerotic calcification. PELVIC VISCERA: Uterus not seen. No adnexal mass. OSSEOUS STRUCTURES: No acute or suspicious osseous abnormality. Mild degenerative changes of the spine. CT/CT abdomen pelvis w IV con IMPRESSION: No acute findings in the abdomen or pelvis. No inflammatory changes. Fleischner guidelines were followed.
[2022-06-23 10:54] VITALS: BP 110/63; PULSE 98; RESP 19; TEMP 36.6; O2SAT 97; BMI 35.7
--- NOTE | 2022-06-23 11:42 | ED_ITS ---
HPI - General Adult General Chief complaint: Abdominal Pain Stated complaint: abd pain Time Seen by Provider: 06/23/22 11:42 Source: patient and doctor of audiology Mode of arrival: ambulatory Limitations: language barrier History of Present Illness HPI narrative: Patient is a 66 year old assigned female at with a history of DM presenting to the emergency department today with abdominal pain. Patient states that over the last 2 days she has had abdominal pain with intermittent diarrhea. Patient denies any dizziness, lightheadedness, nausea, vomiting, fever, chills, blurry vision, double vision, loss of vision, chest pain, difficulty breathing, shortness of breath, back pain, night sweats, pain with urination, increased urinary frequency, increased urinary urgency, blood in her urine or stool, syncope or a near syncopal episode, recent trauma or falls, bowel incontinence, bladder incontinence, bowel retention, bladder retention, or any other complaints at this time. Onset (ago): day(s) (2) Location: abdomen Severity: mild Severity scale (1-10): 1 Quality: dull Pain Consistency: constant Relieving factors: none Exacerbating factors: none Associated symptoms: denies other symptoms Treatments prior to arrival: none Related Data Home Medications Medication Instructions Recorded Confirmed albuterol sulfate 90 mcg/actuation 90 mcg inhalation Q4-6H PRN 03/21/20 03/10/22 aerosol inhaler Wheezing atorvastatin 20 mg tablet 20 mg PO DAILY 03/21/20 03/10/22 clonazepam 0.5 mg tablet 0.5 mg PO DAILY PRN Anxiety 03/21/20 03/10/22 omeprazole 20 mg capsule,delayed 20 mg PO QAM 03/21/20 03/10/22 release tiotropium bromide 1.25 2 puff inhalation DAILY 03/21/20 03/10/22 mcg/actuation mist for inhalation amlodipine 2.5 mg tablet 2.5 mg PO DAILY 04/03/20 03/10/22 fluticasone propionate 50 50 mcg intranasal BID 04/03/20 03/10/22 mcg/actuation nasal spray,suspension lisinopril 10 1 tab PO DAILY 04/03/20 03/10/22 mg-hydrochlorothiazide 12.5 mg tablet metformin 500 mg tablet 500 mg PO QAM 04/03/20 03/10/22 montelukast 10 mg tablet 10 mg PO DAILY 04/03/20 03/10/22 ursodiol 250 mg tablet 750 mg PO BID 04/03/20 03/10/22 fluticasone propionate 115 2 puff inhalation BID 08/21/20 03/10/22 mcg-salmeterol 21 mcg/actuation HFA inhaler vitamin E (dl, acetate) 180 mg 180 mg PO DAILY 11/22/20 03/10/22 (400 unit) capsule darifenacin 15 mg tablet,extended 15 mg PO QAM 06/24/21 03/10/22 release 24 hr hydrocodone 5 mg-acetaminophen 325 1 tab PO Q8H PRN pain 06/24/21 03/10/22 mg tablet naloxone 4 mg/actuation nasal 0 spray intranasal 06/24/21 03/10/22 spray (Narcan) trazodone 150 mg tablet 300 mg PO BEDTIME 06/24/21 03/10/22 albuterol sulfate 2.5 mg/3 mL mg inhalation 10/01/21 03/10/22 (0.083 %) solution for nebulization conjugated estrogens 0.625 mg/gram 0 mg vaginal 11/01/21 03/10/22 vaginal cream (Premarin) Previous Rx's Medication Instructions Recorded docusate sodium 100 mg capsule 100 mg PO BID 14 days #28 caps 11/24/20 ondansetron 4 mg disintegrating 4 mg PO Q8H PRN nausea and 11/12/21 tablet vomiting #10 tabs acetaminophen 500 mg tablet 500 mg PO Q6H PRN fever or pain 02/16/22 (Tylenol Extra Strength) #14 tabs lidocaine 5 % topical patch 1 patch topical DAILY PRN pain #30 02/16/22 (Lidoderm) ea calcium carbonate 600 mg-vitamin 1 tab PO QAM #30 tabs 03/10/22 D3 10 mcg (400 unit) tablet Allergies Allergy/AdvReac Type Severity Reaction Status Date / Time No Known Allergies Allergy Verified 06/23/22 10:54 [No Known Allergies*] Review of Systems Constitutional: Constitutional: Reports no additional constitutional complaints, Denies chills, Denies fever(s) and Denies night sweats Eyes: Eyes: Reports no additional eye complaints, Denies blurry vision, Denies change in vision, Denies diplopia, Denies eye discharge, Denies loss of vision and Denies eye pain ENT: Denies dizziness Cardiovascular: Cardiovascular: Reports no additional cardiovascular complaints, Denies chest pain, Denies lightheadedness, Denies Loss of Consciousness and Denies dyspnea Respiratory: Respiratory: Reports no additional respiratory complaints and Denies dyspnea Gastrointestinal: Gastrointestinal: Reports no additional gastrointestinal complaints, Reports abdominal pain, Denies melena, Denies hematochezia, Denies change in bowel habits, Denies change in stool character and Reports diarrhea Genitourinary: Genitourinary: Denies hematuria, Denies urinary frequency, Denies dysuria, Denies urinary incontinence, Denies urinary hesitancy and Denies urinary urgency Musculoskeletal: Musculoskeletal: Reports no additional musculoskeletal complaints, Denies numbness and Denies tingling Neurologic: Denies dizziness, Denies loss of vision, Denies numbness and Denies tingling Psychiatric: Psychiatric: Reports no additional psychiatric complaints Endocrine: Endocrine: Reports no additional endocrine complaints Hematologic/Lymphatic: Hematologic/Lymphatic: Reports no additional hematologic/lymphatic complaints Allergic/Immunologic: Allergic/Immunologic: Reports no additional allergic/immunologic complaints PMFSH Past Medical History Attestation statement: The following information was validated with the patient. Source: old records reviewed and nursing notes reviewed Medical History Anxiety Asthma Bilateral primary osteoarthritis of knee Chronic kidney disease COVID-19 vaccine series completed Depression Elevated cholesterol Essential hypertension History of COVID-19 History of renal calculi Hx of hepatitis C Lumbar facet arthropathy JUSTIN (obstructive sleep apnea) Osteoarthritis of hands, bilateral Other chronic pain Other intervertebral disc displacement, lumbar region RBBB Renal stones Spondylosis of lumbar spine Type 2 diabetes mellitus with complication, without long-term current use of insulin Vitamin D deficiency Surgical History H/O abdominal hysterectomy H/O tubal ligation History of colonoscopy History of esophagogastroduodenoscopy (EGD) History of laryngoscopy History of total right knee replacement (TKR) Hx of arthroscopy of left knee Hx of dilation and curettage Hx of lithotripsy Hx of umbilical hernia repair S/P repair of ventral hernia Family History Family History Father Diabetes mellitus HTN (hypertension) Mother No problems noted. 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 Housing: House Are you a primary manager medicare marketing to a significant other at home: No Do you presently have visiting nurse or other home services: Yes Alcohol intake: former Year quit: 1995 Patient Tobacco Use Status: Former Tobacco user Quit Date: 2001 Tobacco use type: Cigarette Years Smoked: 5+ Smoked in Last 30 Days: No Use of substances other than those prescribed or required for medical reasons: No Substance Use Type: Crack/Cocaine Any prior treatment program specific to substance use: No Advance Directives: No Advance Directives Information Provided: No Patient : No service: No Current occupational status: retired 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 Physical Exam ED Vital Signs: Vital Signs - 24 hr 06/23/22 10:54 06/23/22 12:24 06/23/22 14:01 Temperature 98 F Pulse Rate 98 93 68 Respiratory Rate 19 14 14 Blood Pressure 110/63 107/61 100/76 Pulse Oximetry 97 94 97 Oxygen Delivery Method Room Air Room Air Room Air 06/23/22 15:45 Temperature Pulse Rate 80 Respiratory Rate 18 Blood Pressure 100/67 Pulse Oximetry 97 Oxygen Delivery Method Room Air BMI result Body Mass Index 35.7 Const General: cooperative, no acute distress, alert and awake Nutritional Appearance: well nourished Orientation/consciousness: patient oriented x3 Limitations: no limitations HENMT Head: Yes normal to inspection and Yes atraumatic Ears: hearing grossly normal bilaterally and external ears normal General nose exam: Normal external nose present, no nasal discharge noted and no epistaxis Face and sinus: Yes normal facial exam, No abrasion and No laceration Mouth: Normal oral and palatal mucosa present, no drooling and no muffled voice Eyes General: appearance normal, both eyes and all related structures Periorbital: periorbital findings normal Eyelids: Yes eyelids normal Conjunctivae: conjunctivae normal Pupils: Equal, round and reactive pupils present EOM: EOMs intact bilaterally Neck Neck: Yes normal visual inspection, Yes full ROM and Yes no lymphadenopathy Chest Chest palpation & inspection: normal inspection of the chest Resp Effort & Inspection: normal respiratory effort and able to speak in complete sentences Auscultation: clear to auscultation bilaterally Cardio Rate: regular rate Rhythm: regular rhythm GI Inspection: Yes normal to inspection Palpation (GI): Soft to palpation, not firm, Tenderness to palpation present (GI) in the RUQ, no guarding and not rigid Neuro General: patient oriented x3 and moves all extremities Cranial nerves: Yes Equal, round and reactive pupils present Cognition (Neuro): normal cognition Motor exam (neuro): 5/5 motor strength present throughout Sensory Exam: Normal double simultaneous stimulation for sensation Coordination: [id number] test normal Extrem General: Yes normal to inspection, Yes full ROM and Yes capillary refill normal Psych Appearance: grossly normal Mental Status: mental status grossly normal Affect: normal affect Attitude: cooperative Thought process: Normal thought process present Thought content: Normal thought content present Insight: Good insight present (Psych) Medications Administered Discontinued Medications Generic Name Dose Route Start Last Admin Trade Name Leana PRN Reason Stop Dose Admin Iohexol 100 ml 06/23/22 13:39 06/23/22 13:40 Iohexol 350 Mg/Ml 100 Ml Infus..Btl IV 06/23/22 13:40 85 ml ONCE ONE Administration Morphine Sulfate 4 mg 06/23/22 11:48 06/23/22 11:57 Morphine Sulfate 4 Mg/Ml Cartridge IVPUSH 06/23/22 11:49 4 mg ONCE ONE Administration Protocol Medical Decision Making Medical Decision Making [facility] Narrative: Patient is a 66 year old assigned female at with a history of DM p resenting to the emergency department today with RUQ abdominal pain. Patient's physical exam showed minimal tenderness to the RUQ of the abdomen but was otherwise unremarkable. Patient's blood work was unremarkable. Patient's urine showed no acute process. Patient's abdominal CT showed no acute process. I explained my physical exam findings as well as all test results to the patient. I answered all questions asked by the patient. I stressed the importance of the patient taking her medication as prescribed. I stressed the importance of the patient following up with her primary care provider. I stressed the importance of the patient returning to the emergency department immediately if her symptoms were to worsen or if she were to develop any dizziness, shortness of breath, difficulty breathing, chest pain, blurry vision, loss of vision, nausea, vomiting, abdominal pain, fever, chills, back pain, or any other complaints. Patient verbalized agreement and understanding with this treatment plan and discharge. Differential Diagnosis Differential Diagnoses: The differential diagnosis associated with the presentation includes abdominal pain, diarrhea Lab Data MDM Lab Attestation statement: I reviewed the patient's lab results. 06/23/22 11:59 06/23/22 11:59 Labs: Lab Results 06/23/22 06/23/22 06/23/22 Range/Units 11:56 11:59 11:59 WBC 5.3 (4.8-10.8) X10*3/uL RBC 4.06 L (4.20-5.50) X10*6/uL Hgb 12.6 (12.0-16.0) g/dl Hct 36.6 L (37.0-47.0) % MCV 90.1 (80.0-98.0) fL MCH 31.0 (27.0-33.0) pg MCHC 34.4 (31.0-35.0) g/dl RDW 11.8 (11.0-16.0) % Plt Count 255 (160-400) X10*3/uL MPV 8.9 L (9.4-12.3) fL Immature Gran % (Auto) 0.2 (0.0-0.4) % Neut % (Auto) 55.3 (45-73) % Lymph % (Auto) 28.7 (20-40) % Crisp % (Auto) 10.1 (2-11) % Eos % (Auto) 5.5 H (0-4) % Baso % (Auto) 0.2 (0-2) % Lymph # (Auto) 1.5 (1.2-4.9) X10*3/uL Crisp # (Auto) 0.5 (0.1-1.2) X10*3/uL Eos # (Auto) 0.3 (0.0-0.4) X10*3/uL Baso # (Auto) 0.0 (0.0-0.2) X10*3/uL Abs Immat Gran (auto) 0.01 (0.00-0.03) X10*3/uL Absolute Neuts (auto) 2.9 (2.0-8.3) x10*3/uL Absolute Nucleated RBC 0.000 (0.0-0.012) X10*3/uL Nucleated RBC % (auto) 0.0 (0.0-0.2) /100WBC Sodium 136 (135-145) mmol/L Potassium 3.8 (3.3-5.1) mmol/L Chloride 100 (96-108) mmol/L Carbon Dioxide 27 (22-29) mmol/L Anion Gap 13 (12-20) BUN 14 (9-16) mg/dL Creatinine 0.84 (0.5-1.4) mg/dL Estim Creat Clear Calc 59.3 Estimated GFR > 60 Random Glucose 156 H (60-115) mg/dL Calcium 9.2 (8.4-10.2) mg/dL Magnesium 1.7 (1.6-2.6) mg/dL Total Bilirubin 0.5 (0.0-1.0) mg/dL AST 29 (5-31) U/L ALT 31 (0-31) U/L Alkaline Phosphatase 83 (39-117) U/L Total Protein 6.6 (6.5-8.0) g/dL Albumin 3.7 (3.5-5.0) g/dL Urine Color Urine Appearance Urine pH (5.0-9.0) Ur Specific [place] (1.005-1.025) Urine Protein (Neg-Trace) mg/dL Urine Glucose (UA) (Negative) mg/dL Urine Ketones (Negative) mg/dL Urine Blood (Negative) Urine Nitrite (Negative) Ur Leukocyte Esterase (Negative) COVID-19 ([facility]) Negative (Negative) COVID-19 Clin Com See Note 06/23/22 Range/Units 15:06 WBC (4.8-10.8) X10*3/uL RBC (4.20-5.50) X10*6/uL Hgb (12.0-16.0) g/dl Hct (37.0-47.0) % MCV (80.0-98.0) fL MCH (27.0-33.0) pg MCHC (31.0-35.0) g/dl RDW (11.0-16.0) % Plt Count (160-400) X10*3/uL MPV (9.4-12.3) fL Immature Gran % (Auto) (0.0-0.4) % Neut % (Auto) (45-73) % Lymph % (Auto) (20-40) % Crisp % (Auto) (2-11) % Eos % (Auto) (0-4) % Baso % (Auto) (0-2) % Lymph # (Auto) (1.2-4.9) X10*3/uL Crisp # (Auto) (0.1-1.2) X10*3/uL Eos # (Auto) (0.0-0.4) X10*3/uL Baso # (Auto) (0.0-0.2) X10*3/uL Abs Immat Gran (auto) (0.00-0.03) X10*3/uL Absolute Neuts (auto) (2.0-8.3) x10*3/uL Absolute Nucleated RBC (0.0-0.012) X10*3/uL Nucleated RBC % (auto) (0.0-0.2) /100WBC Sodium (135-145) mmol/L Potassium (3.3-5.1) mmol/L Chloride (96-108) mmol/L Carbon Dioxide (22-29) mmol/L Anion Gap (12-20) BUN (9-16) mg/dL Creatinine (0.5-1.4) mg/dL Estim Creat Clear Calc Estimated GFR Random Glucose (60-115) mg/dL Calcium (8.4-10.2) mg/dL Magnesium (1.6-2.6) mg/dL Total Bilirubin (0.0-1.0) mg/dL AST (5-31) U/L ALT (0-31) U/L Alkaline Phosphatase (39-117) U/L Total Protein (6.5-8.0) g/dL Albumin (3.5-5.0) g/dL Urine Color Yellow Urine Appearance Clear Urine pH 6.0 (5.0-9.0) Ur Specific [place] >= 1.030 H (1.005-1.025) Urine Protein Negative (Neg-Trace) mg/dL Urine Glucose (UA) Negative (Negative) mg/dL Urine Ketones Negative (Negative) mg/dL Urine Blood Negative (Negative) Urine Nitrite Negative (Negative) Ur Leukocyte Esterase Negative (Negative) COVID-19 ([facility]) (Negative) COVID-19 Clin Com Independent Interpretation I performed an independent interpretation of an: CT Scan Interpretation: My interpretation is in agreement with the radiologist's impression of this imaging study. ----- EXAMINATION: CT ABDOMEN AND PELVIS WITH CONTRAST? CLINICAL INFORMATION: Abdominal pain? COMPARISON: 11/12/2021 ? TECHNIQUE: Multidetector volumetric images were obtained from the superior aspect of the liver through the pubic symphysis following administration 85 mL of Omnipaque 350 intravenous contrast. Sagittal and coronal reformatted images were obtained on the technologist's workstation.? Oral contrast: No This CT examination was performed using dose optimization techniques as appropriate, variously including the following: *Automated exposure control *Adjustment of mA and/or kV according to patient size (this includes techniques or standardized protocols for targeted exams where dose is matched to indication/reason for exam; i.e. extremities or head) *Use of iterative reconstruction technique DLP: 780 mGy-cm FINDINGS: LUNG BASES: Bibasilar atelectasis. No dense consolidation. Mild coronary artery calcification. Elevated right hemidiaphragm.? LIVER, GALLBLADDER, AND BILIARY TREE: The liver is normal in size, shape, and attenuation. No focal hepatic lesion or biliary ductal dilatation is present. The gallbladder is unremarkable with no evidence of radiopaque gallstones, gallbladder wall thickening, or obvious pericholecystic inflammatory changes.? PANCREAS: Unremarkable.? SPLEEN: Unremarkable.? ADRENAL GLANDS: Unremarkable.? KIDNEYS AND URETERS: The kidneys are normal in size, shape, and attenuation. No hydronephrosis, hydroureter, or calculi seen. No perinephric stranding. Area of calcification along the periphery of the left kidney is unchanged.? BLADDER: Unremarkable.? GASTROINTESTINAL TRACT: The stomach is unremarkable. Normal caliber of the small bowel. No obstruction. No colonic wall thickening or inflammation. Diminutive appendix with no acute abnormality. No free air or free fluid.? ABDOMINAL WALL: No significant hernia is appreciated.? LYMPH NODES: Normal. VASCULAR: Normal caliber aorta with mild atherosclerotic calcification. PELVIC VISCERA: Uterus not seen. No adnexal mass.? OSSEOUS STRUCTURES: No acute or suspicious osseous abnormality. Mild degenerative changes of the spine.? CT/CT abdomen pelvis w IV con IMPRESSION: No acute findings in the abdomen or pelvis. No inflammatory changes. ? Fleischner guidelines were followed. Dictated By: Minh Costa MD Signed By: Electronically signed by Minh Costa MD 06/23/22 3133 Discharge Plan Discharge Clinical Impression: Abdominal pain Patient Disposition: Home, Self-Care Instructions: Abdominal Pain (ED) Additional Instructions: Follow up with your primary care provider. Return to the emergency department immediately if your symptoms worsen or if you develop any dizziness, shortness of breath, difficulty breathing, chest pain, blurry vision, loss of vision, nausea, vomiting, abdominal pain, fever, chills, back pain, or any other complaints. Mike un seguimiento con christian proveedor de atenci?n primaria. Regrese al departamento de emergencias de inmediato si jose raul s?ntomas empeoran o si presenta mareos, falta de aire, dificultad para respirar, dolor de pecho, visi?n borrosa, p?rdida de la visi?n, n?useas, v?mitos, dolor abdominal, fiebre, escalofr?os, dolor de espalda o cualquier otras quejas. Prescriptions: No Action vitamin E (dl, acetate) 180 mg (400 unit) capsule 180 mg PO DAILY docusate sodium 100 mg Capsule 100 mg PO BID 14 Days Qty: 28 0RF ondansetron 4 mg tablet,disintegrating 4 mg PO Q8H PRN (Reason: nausea and vomiting) Qty: 10 0RF acetaminophen [Tylenol Extra Strength] 500 mg tablet 500 mg PO Q6H PRN (Reason: fever or pain) Qty: 14 0RF lidocaine [Lidoderm] 5 % adhesive patch,medicated 1 patch topical DAILY MDD remove after 12 hours PRN (Reason: pain) Qty: 30 0RF Rx Instructions: leave on most painful area for up to 12 hrs lisinopril-hydrochlorothiazide 10-12.5 mg tablet 1 tab PO DAILY amlodipine 2.5 mg tablet 2.5 mg PO DAILY metformin 500 mg tablet 500 mg PO QAM fluticasone propionate 50 mcg/actuation spray,suspension 50 mcg intranasal BID montelukast 10 mg tablet 10 mg PO DAILY ursodiol 250 mg tablet 750 mg PO BID albuterol sulfate 90 mcg/actuation HFA aerosol inhaler 90 mcg inhalation Q4-6H PRN (Reason: Wheezing) clonazepam 0.5 mg tablet 0.5 mg PO DAILY PRN (Reason: Anxiety) atorvastatin 20 mg tablet 20 mg PO DAILY tiotropium bromide 1.25 mcg/actuation mist 2 puff inhalation DAILY omeprazole 20 mg capsule,delayed release(DR/EC) 20 mg PO QAM fluticasone propion-salmeterol 115-21 mcg/actuation HFA aerosol inhaler 2 puff inhalation BID calcium carbonate-vitamin D3 600 mg-10 mcg (400 unit) tablet 1 tab PO QAM Qty: 30 4RF naloxone [Narcan] 4 mg/actuation spray,non-aerosol 0 spray intranasal darifenacin 15 mg tablet extended release 24 hr 15 mg PO QAM hydrocodone-acetaminophen 5-325 mg tablet 1 tab PO Q8H PRN (Reason: pain) trazodone 150 mg tablet 300 mg PO BEDTIME albuterol sulfate 2.5 mg /3 mL (0.083 %) solution for nebulization inhalation Premarin 0.625 mg/gram cream 0 mg vaginal Referrals: Darcy Temple MD [Primary Care Provider] - Interventions: ED Discharge Assessment Last Done: 06/23/22 15:45 Discharge Date/Time: 06/23/22 15:45 Print Language: Marshallese
--- OUTSIDE RECORDS SUMMARY | 2022-06-23 11:52 | XMS_ITS ---
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 Name Role Phone Jason Lora Unavailable [phone] PROBLEMS Type Condition ICD9-CM Code [id number] Code Onset Dates Condition Status SNOMED Code Problem History of hepatitis C Z86.19 Active 46988883164848 Problem Chronic gastritis without bleeding, unspecified gastritis type K29.50 Active 41036272 Problem Other cirrhosis of liver K74.69 Active 25075745 Problem Fatty liver K76.0 Active 568638226 Problem Encounter for screening for malignant neoplasm of colon Z12.11 Active [id number] ALLERGIES No Known Allergies ENCOUNTERS Encounter Location Date Diagnosis [facility] [address] [place] [phone] May, [facility] [address] [place] [address] Feb, Fatty liver K76.0 ; Other cirrhosis of liver K74.69 and History of hepatitis C Z86.19 [facility] [address] [place] [address] Aug, Other cirrhosis of liver K74.69 ; Fatty liver K76.0 and History of hepatitis C Z86.19 [facility] [address] [place] [address] July, [facility] [address] [place] [address] 11 Jun, 2021 [facility] [address] [place] [address] [place] [address] July, [facility] [address] [place] [address] [place] Jun, [facility] [address] [place] [address] [place] 13 Jun, 2020 [facility] [address] [place] [address] Jun, Other cirrhosis of liver K74.69 ; Fatty liver K76.0 and History of hepatitis C Z86.19 [facility] [address] [place] [address] [place] Jun, [facility] [address] [place] [address] Aug, [facility] [address] [place] [address] July, [facility] [address] [place] [address] Jun, [facility] [address] [place] [address] Jun, Other cirrhosis of liver K74.69 ; Fatty liver K76.0 ; History of hepatitis C Z86.19 and Chronic gastritis without bleeding, unspecified gastritis type K29.50 [facility] [address] [place] [address] Apr, [facility] [address] [place] [address] July, [facility] Outpatient [address] [place] [id number] Apr, [facility] [address] [place] [address] Apr, [facility] [address] [place] [address] Feb, [facility] [address] [place] [address] Feb, Other cirrhosis of liver K74.69 ; Fatty liver K76.0 ; Encounter for screening for malignant neoplasm of colon Z12.11 and History of hepatitis C Z86.19 [facility] [address] [place] [address] July, [facility] [address] [place] [address] Feb, Fatty liver K76.0 ; Other cirrhosis of liver K74.69 and Encounter for screening for malignant neoplasm of colon Z12.11 [facility] [address] [place] [address] Oct, [facility] [address] [place] [address] Jan, Fatty liver K76.0 and Other cirrhosis of liver K74.69 [facility] [address] [place] [address] Oct, [facility] [address] [place] [address] Jan, [facility] [address] [place] [address] Jan, [facility] [address] [place] [address] Jan, Other cirrhosis of liver K74.69 and Fatty liver K76.0 [facility] [address] [place] [address] Nov, [facility] [address] [place] [address] Sep, [facility] [address] [place] [address] Nov, [facility] [address] [place] [address] Aug, Fatty liver 571.8 ; Constipation 564.00 and Liver function study, abnormal 794.8 [facility] [address] [place] [address] Feb, [facility] [address] [place] [address] Aug, Fatty liver 571.8 and Liver function study, abnormal 794.8 [facility] [address] [place] [address] Aug, [facility] [address] [place] [address] Dec, [facility] [address] [place] [address] Aug, Other chronic nonalcoholic liver disease 571.8 [facility] ER [address] [place], [place] [id number] Aug, [facility] ER [address] [place] [id number] Oct, [facility] ER [address] [place] [id number] Oct, [facility] ER [address] [place] [id number] Jun, [facility] ER [address] [place] [id number] May, [facility] ER [address] [place], [place] [id number] Dec, [facility] ER [address] [place] [id number] Mar, [facility] ER [address] [place], [place] [id number] Jun, [facility] ER [address] [place] [id number] Nov, [facility] [address] [facility] [place] [place] [id number] Mar, IMMUNIZATIONS Vaccine Route Administration Date Status Influenza Unknown Nov 21, 2021 Administered Influenza Unknown Nov 22, 2019 Administered Influenza Unknown Jan 21, 2019 Administered Influenza Unknown Dec 21, 2017 Administered SOCIAL HISTORY Never Assessed REASON FOR REFERRAL FUNCTIONAL STATUS PLAN OF CARE Activity Details VITAL SIGNS Weight 182 lbs 2022-02-25 Weight 180 lbs 2021-08-22 Weight 194 lbs 2020-07-03 Weight 186 lbs 2019-06-22 Weight 180 lbs 2018-03-05 Weight 172 lbs 2017-03-12 Weight 184 lbs 2016-01-22 Weight 191 lbs 2015-02-02 Weight 183 lbs 2013-09-15 Weight 184 lbs 2012-08-27 Weight 197 lbs 2011-08-26 Height 58 in 2022-02-25 Height 58 in 2021-08-22 Height 58 in 2020-07-03 Height 58 in 2019-06-22 Height 58 in 2018-03-05 Height 58 in 2017-03-12 Height 58 in 2016-01-22 Height 58 in 2015-02-02 Height 58 in 2013-09-15 Height N/A in 2012-08-27 Height 58 in 2011-08-26 BMI 38.03 kg/m2 2022-02-25 BMI 37.62 kg/m2 2021-08-22 BMI 40.54 kg/m2 2020-07-03 BMI 38.87 kg/m2 2019-06-22 BMI 37.62 kg/m2 2018-03-05 BMI 35.94 kg/m2 2017-03-12 BMI 38.45 kg/m2 2016-01-22 BMI 39.91 kg/m2 2015-02-02 BMI 38.24 kg/m2 2013-09-15 BMI 38.45 kg/m2 2012-08-27 BMI 41.17 kg/m2 2011-08-26 Heart Rate 72 /min 2017-03-12 Heart Rate 72 /min 2013-09-15 Heart Rate 60 /min 2011-08-26 Temperature 97.1 degrees Fahrenheit Temperature 97.3 degrees Fahrenheit Temperature 97.5 degrees Fahrenheit Blood pressure systolic 000 mm Hg Blood pressure diastolic 00 mm Hg 2022-02 MEDICATIONS Medication Instructions Dosage Frequency Start Date End Date Duration Status KlonoPIN 0.5 MG Orally Twice a day 1 tablet 12h Active Omeprazole 20 MG Orally QAM 1 12 Jul, 2021 30 day(s) Active Ursodiol 250 MG Orally Twice a day 3 12h 11 Jun, 2021 30 day(s) Active Ursodiol 250 MG Orally Twice a day 3 12h 21 Jun, 2020 30 day(s) Active Ursodiol 250 MG Orally Twice a day 3 12h 13 May, 2022 30 day(s) Active glipiZIDE XL 5mg Active metFORMIN HCl 500mg Active Omeprazole 20 MG Orally Once a day 1 24h 11 Aug, 2019 30 day(s) Active oxyCODONE HCl 5 MG/5ML Orally every 6 hrs 5 ml as needed 6h Active clonazePAM 0.5 MG 30 Active Calcium 600 + D 600mg Active Flovent HFA 12mg Active HYDROcodone-Ac etaminophen 5-500 MG Orally every 6 hrs 1 capsule as needed 6h Active Vitamin D 1000unit Active Ursodiol 250 MG Orally BID 3 12h July, Active traZODone HCl 150 MG Orally Once a day 1 tablet at bedtime 24h Active Singulair 10mg A ctive ProAir HFA 108 (90 Base) MCG/ACT Inhalation every 4 hrs 2 puffs as needed 4h Active SudoGest 30 MG 30 A ctive Omeprazole 20 MG Orally Once a day 1 24h 18 Jul, 2020 30 day(s) Active PROCEDURES Procedure Date Ordered Result Body Site BMI >=30 CALCUATE W/FOLLOWUP Mar 05, 2018 BP SCR PRFRM RCMDD DEFIND SCR INTVL Mar 05, 2018 DOC MEDS VERIFIED W/PT OR RE August 22, 2021 TOBACCO NON-USER Mar 05, 2018 DOC MEDS VERIFIED W/PT OR RE July 03, 2020 BP SCR PRFRM RCMDD DEFIND SCR INTVL June 22, 2019 DOC MEDS VERIFIED W/PT OR RE Mar 05, 2018 COLORECTAL CA SCREEN DOC REV August 22, 2021 TOBACCO NON-USER Feb 25, 2022 FLU IMMUNIZE ORDER/ADMIN Mar 05, 2018 TOBACCO NON-USER August 22, 2021 COLORECTAL CA SCREEN DOC REV July 03, 2020 TOBACCO NON-USER July 03, 2020 COLORECTAL CA SCREEN DOC REV June 22, 2019 TOBACCO NON-USER June 22, 2019 DOC MEDS VERIFIED W/PT OR RE June 22, 2019 DOC MEDS VERIFIED W/PT OR RE Feb 25, 2022 BP SCR NOT PRFRM REC REASON NOS Feb 25, 2022 COLORECTAL CA SCREEN DOC REV Mar 05, 2018 BP SCR NOT PRFRM REC REASON NOS August 22, 2021 COLORECTAL CA SCREEN DOC REV Feb 25, 2022 BP SCR PRFRM RCMDD DEFIND SCR INTVL July 03, 2020 RESULTS Name Result Date Reference Range Complete Blood Count Auto Diff 2022-03-31 White Blood Count 6.0 4.8-10.8 Red Blood Count 4.39 4.20-5.50 Hemoglobin 13.3 12.0-16.0 Hematocrit 39.2 37.0-47.0 Mean Corpuscular Volume 89.3 80.0 -98.0 Mean Corpuscular Hemoglobin 30.3 27.0-33.0 Mean Corpuscular HGB Conc 33.9 31 .0-35.0 Red Cell Distribution Width 11.9 11.0-16.0 Platelet Count 302 160-400 Mean Platelet Volume 9.3 9.4-12. 3 Neutrophils Percent Auto 45.4 45- 73 Imm Gran Pct Auto 0.3 0.0-0.4 Lymphocytes Percent Auto 37.5 20- 40 Monocytes Percent Auto 5.2 2-11 Eosinophils Percent Auto 10.9 0-4 Basophils Percent Auto 0.7 0-2 NRBC Pct Auto 0.0 0.0-0.2 Neutrophils Absolute Auto 2.7 2. 0-8.3 Imm Gran Abs Auto 0.02 0.00-0.03 Lymphocytes Absolute Auto 2.2 1. 2-4.9 Monocytes Absolute Auto 0.3 0.1- 1.2 Eosinophils Absolute Auto 0.7 0. 0-0.4 Basophils Absolute Auto 0.0 0.0- 0.2 NRBC Abs Auto 0.000 0.0-0.012 Prothrombin Time INR 2022-03-31 Prothrombin Time 11.4 10.0-13.1 INTERNATIONAL NORM RATIO 1.0 0.9 -1.1 Liver Panel 2022-03-31 Bilirubin Total 0.4 0.0-1.0 Bilirubin Direct 0.2 0.0-0.5 Aspartate Amino Transferase 20 5-31 Alanine Aminotransferase 24 0-3 1 Total Protein 7.2 6.5-8.0 Albumin Level 4.1 3.5-5.0 Alkaline Phosphatase 83 39-117 Alpha Fetoprotein 2022-03-31 Alpha Fetoprotein 1.7 Liver Panel 2021-09-24 Bilirubin Total 0.4 0.0-1.0 Bilirubin Direct 0.2 0.0-0.5 Aspartate Amino Transferase 20 5-31 Alanine Aminotransferase 22 0-3 1 Total Protein 6.9 6.5-8.0 Albumin Level 4.0 3.5-5.0 Alkaline Phosphatase 89 39-117 Alpha Fetoprotein 2021-09-24 Alpha Fetoprotein 1.5 US abdomen complete 2020-07-25 Complete Blood Count Auto Diff 2020-07-09 White Blood Count 6.2 4.8-10.8 Red Blood Count 4.13 4.20-5.50 Hemoglobin 12.6 12.0-16.0 Hematocrit 37.1 37-47 Mean Corpuscular Volume 89.8 80-9 8 Mean Corpuscular Hemoglobin 30.5 27.0-33.0 Mean Corpuscular HGB Conc 34.0 31 .0-35.0 Red Cell Distribution Width 12.0 11.0-16.0 Platelet Count 269 160-400 Mean Platelet Volume 9.6 9.4-12. 3 Neutrophils Percent Auto 51.6 45- 73 Imm Gran Pct Auto 0.2 0.0-0.4 Lymphocytes Percent Auto 34.7 20- 40 Monocytes Percent Auto 7.3 2-11 Eosinophils Percent Auto 5.7 0-4 Basophils Percent Auto 0.5 0-2 NRBC Pct Auto 0.0 0.0-0.2 Neutrophils Absolute Auto 3.2 2. 0-8.3 Imm Gran Abs Auto 0.01 0.00-0.03 Lymphocytes Absolute Auto 2.1 1. 2-4.9 Monocytes Absolute Auto 0.5 0.1- 1.2 Eosinophils Absolute Auto 0.4 0. 0-0.4 Basophils Absolute Auto 0.0 0.0- 0.2 NRBC Abs Auto 0.000 0.0-0.012 Prothrombin Time INR 2020-07-09 Prothrombin Time 12.2 10.8-13.0 INTERNATIONAL NORM RATIO 1.0 0.9 -1.1 Liver Panel 2020-07-09 Bilirubin Total 0.7 0.0-1.0 Bilirubin Direct 0.2 0.0-0.5 Aspartate Amino Transferase 20 5-31 Alanine Aminotransferase 31 0-3 1 Total Protein 6.8 6.5-8.0 Albumin Level 3.9 3.5-5.0 Alkaline Phosphatase 100 39-117 Alpha Fetoprotein 2020-07-09 Alpha Fetoprotein 1.9 LIVER PROFILE 2019-06-22 PROTEIN, TOTAL 7.0 6.5-8.0 ALBUMIN 4.2 3.5-5.0 BILIRUBIN, TOTAL 0.5 0.0-1.0 BILIRUBIN, DIRECT 0.2 0.0-0.5 ALK. PHOS. 97 39-117 GOT 20 5-31 GPT 28 0-31 CBC w DIFF 2019-06-22 WBC 8.2 4.8-10.8 ABSOLUTE NEUTROPHIL COUNT 4.6 2. 2-7.9 RBC 4.53 4.20-5.50 HEMOGLOBIN 14.0 12.0-16.0 HEMATOCRIT 41.4 37-47 MCV 91.3 80-98 MCH 30.9 27.0-33.0 MCHC 33.8 31.0-35.0 PLATELET COUNT 290 160-400 RDW 11.1 11.0-16.0 NEUTROPHILS 56.7 45-73 LYMPHOCYTES 30.4 20-40 MONOCYTES 5.7 2-11 EOSINOPHILS 6.0 0-4 BASOPHILS 1.2 0-2 PROTHROMBIN TIME (PT, INR) 2019-06-22 INTERNATIONAL NORM. RATIO 1.0 SE E NOTE PROTHROMBIN TIME 12.2 10.8-13.0 ALPHA-FETOPROTEIN,TUMOR MARKER 2019-06-22 ALPHA-FETOPROTEIN,TUMOR MARKER 1.8 <6.1 GLUCOSE,WHOLE BLOOD 2018-05-03 GLUCOSE,WHOLE BLOOD 161 60-115 GI BIOPSY 2018-05-03 G.I. BIOPSY LIVER PROFILE 2018-03-08 PROTEIN, TOTAL 7.2 6.5-8.0 ALBUMIN 4.2 3.5-5.0 BILIRUBIN, TOTAL 0.2 0.0-1.0 BILIRUBIN, DIRECT < 0.2 0.0-0.5 ALK. PHOS. 86 39-117 GOT 22 5-31 GPT 24 0-31 CBC w DIFF 2018-03-08 WBC 7.3 4.8-10.8 ABSOLUTE NEUTROPHIL COUNT 3.5 2. 2-7.9 RBC 4.29 4.20-5.50 HEMOGLOBIN 13.3 12.0-16.0 HEMATOCRIT 37.7 37-47 MCV 87.9 80-98 MCH 31.0 27.0-33.0 MCHC 35.3 31.0-35.0 PLATELET COUNT 261 160-400 RDW 10.8 11.0-16.0 NEUTROPHILS 48.1 45-73 LYMPHOCYTES 41.0 20-40 MONOCYTES 4.8 2-11 EOSINOPHILS 4.7 0-4 BASOPHILS 1.4 0-2 PROTHROMBIN TIME (PT, INR) 2018-03-08 INTERNATIONAL NORM. RATIO 0.9 SE E NOTE PROTHROMBIN TIME 11.0 10.8-13.0 ALPHA-FETOPROTEIN,TUMOR MARKER 2018-03-08 ALPHA-FETOPROTEIN,TUMOR MARKER 2.4 <6.1 ALPHA-FETOPROTEIN,TUMOR MARKER 2017-03-25 ALPHA-FETOPROTEIN,TUMOR MARKER 2.9 <6.1 ALPHA-FETOPROTEIN,TUMOR MARKER 2015-02-05 ALPHA-FETOPROTEIN,TUMOR MARKER 2.6 <6.1 HCV LIVER FIBROSIS, FIBRO TEST 2015-02-05 FIBROSIS SCORE 0.25 () FIBROSIS STAGE F0-F1 () FIBROSIS INTERPRETATION SEE NOTE () NECROINFLAMMAT ACTIVITY SCORE 0.08 () NECROINFLAMMAT ACTIVITY GRADE A0 () NECROINFLAMMAT ACTIVITY INTERP SEE NOTE () SFBCG-2-OHONNLZINQPT 355 106-279 HAPTOGLOBIN 180 43-212 APOLIPOPROTEIN A1 141 101-198 TOTAL BILIRUBIN 0.3 0.2-1.2 GGT 14 3-70 ALT 21 6-29 REFERENCE ID [id number] () FOOTNOTE SEE NOTE () LIVER PROFILE 2013-09-26 PROTEIN, TOTAL 7.1 6.5-8.0 ALBUMIN 3.9 3.5-5.0 BILIRUBIN, TOTAL 0.5 0.0-1.0 BILIRUBIN, DIRECT 0.2 0.0-0.5 ALK. PHOS. 84 39-117 GOT 13 <3-31 GPT 19 <6-31 ALPHA-FETOPROTEIN,TUMOR MARKER 2013-09-26 ALPHA-FETOPROTEIN,TUMOR MARKER 2.7 <6.1 LIVER PROFILE 2012-09-07 PROTEIN, TOTAL 6.7 6.5-8.0 ALBUMIN 3.5 3.5-5.0 BILIRUBIN, TOTAL 0.5 0.0-1.0 BILIRUBIN, DIRECT 0.2 0.0-0.5 ALK. PHOS. 65 39-117 GOT 21 <3-31 GPT 28 <6-31 ALPHA-FETOPROTEIN,TUMOR MARKER 2012-09-07 ALPHA-FETOPROTEIN,TUMOR MARKER 2.0 <6.1 US ABD 2012-09-16 LIVER PROFILE 2011-08-26 PROTEIN, TOTAL 7.4 6.5-8.0 ALBUMIN 4.1 3.5-5.0 BILIRUBIN, TOTAL 0.5 0.0-1.0 BILIRUBIN, DIRECT 0.2 0.0-0.5 ALK. PHOS. 112 39-117 GOT 29 <3-31 GPT 42 <6-31 ALPHA-FETOPROTEIN,TUMOR MARKER 2011-08-26 ALPHA-FETOPROTEIN,TUMOR MARKER 2.8 <6.1 REASON FOR VISIT fatty liver,cirrhosis, Ursodiol refill, Patient presents today for cirrhosis, hx hep c, FATTY LIVER, refill: Omeprazole , r/f request , recall ov, patient presents today for cirrhosis, COVID Screen,omeprazole , REFILL REQUEST ON URSODIOL, 1 yr ov recall, patient presents today for f/u for cirrhosis , Pt no show, Patient presents today for OFFICE RECALL, cirrhosis of liver, screening, day of [...] needs refill, refill, f/u liver Insurance Providers Health Insurance Type Health Plan Insurance Address Health Plan Insurance Phone Health Plan Insurance Name Health Plan Coverage Dates Member ID Patient Relationship to Subscriber Patient Address Patient Phone Patient Name Patient Date of Subscriber ID Subscriber Name Subscriber Date of Group No [facility] [address] [facility] [phone] [employer] OF [facility] sunday MAGUIRE [id number] [employer] [address] [facility] [address] [facility] self TRUPTI MAGUIRE [id number] [facility] [address] [facility] [address] [facility] self TRUPTI MAGUIRE [id number] [facility] Health Plan [address] [address] [facility] [id number] [facility] self TRUPTI MAGUIRE [id number]
[2022-06-23] MEDS: Morphine Sulfate 4 MG/ML CARTRIDGE IVPUSH (11:57)
[2022-06-23 12:07] LABS: MANUAL DIFF FLAG NO
[2022-06-23 12:14] LABS: Basophils Percent Auto 0.2 % (0-2); Eosinophils Absolute Auto 0.3 X10*3/uL (0.0-0.4); Eosinophils Percent Auto 5.5 % (0-4); Hematocrit 36.6 % (37.0-47.0); Hemoglobin 12.6 g/dl (12.0-16.0); Imm Gran Abs Auto 0.01 X10*3/uL (0.00-0.03); Imm Gran Pct Auto 0.2 % (0.0-0.4); Lymphocytes Absolute Auto 1.5 X10*3/uL (1.2-4.9); Lymphocytes Percent Auto 28.7 % (20-40); Mean Corpuscular HGB Conc 34.4 g/dl (31.0-35.0); Mean Corpuscular Volume 90.1 fL (80.0-98.0); Mean Platelet Volume 8.9 fL (9.4-12.3); Monocytes Absolute Auto 0.5 X10*3/uL (0.1-1.2); Monocytes Percent Auto 10.1 % (2-11); Neutrophils Absolute Auto 2.9 x10*3/uL (2.0-8.3); Neutrophils Percent Auto 55.3 % (45-73); Platelet Count 255 X10*3/uL (160-400); Red Blood Count 4.06 X10*6/uL (4.20-5.50); Red Cell Distribution Width 11.8 % (11.0-16.0); White Blood Count 5.3 X10*3/uL (4.8-10.8)
[2022-06-23 12:24] VITALS: BP 107/61; PULSE 93; RESP 14; O2SAT 94
[2022-06-23 12:24] LABS: COVID-19 Test Negative (Negative); IDNOW Serial# 9DB6401D
[2022-06-23 12:29] LABS: Alanine Aminotransferase 31 U/L (0-31); Albumin Level 3.7 g/dL (3.5-5.0); Alkaline Phosphatase 83 U/L (39-117); Anion Gap 13 (12-20); Aspartate Amino Transferase 29 U/L (5-31); Bilirubin Total 0.5 mg/dL (0.0-1.0); Blood Urea Nitrogen 14 mg/dL (9-16); Calcium 9.2 mg/dL (8.4-10.2); Carbon Dioxide 27 mmol/L (22-29); Chloride 100 mmol/L (96-108); Creatinine Clr Calc Pharmacy 59.3; Estimated Glomerular Filt Rate > 60; Glucose Random 156 mg/dL (60-115); Magnesium 1.7 mg/dL (1.6-2.6); Potassium 3.8 mmol/L (3.3-5.1); Sodium 136 mmol/L (135-145); Total Protein 6.6 g/dL (6.5-8.0)
[2022-06-23] MEDS: iohexoL 350 MG/ML 100 ML INFUS..BTL IV (13:40)
[2022-06-23 14:01] VITALS: BP 100/76; PULSE 68; RESP 14; O2SAT 97
[2022-06-23 15:16] LABS: Appearance Urine Clear; Color Urine Yellow; Glucose Urine UA Negative (Negative); Leukocyte Esterase Urine Negative (Negative); Nitrite Urine Negative (Negative); Specific Gravity - Urine >= 1.030 (1.005-1.025); Urine Blood Negative (Negative); Urine Ketones Negative (Negative); Urine Protein Negative (Neg-Trace)
[2022-06-23 15:45] VITALS: BP 100/67; PULSE 80; RESP 18; O2SAT 97
== END 2022-06-23 15:45 | disposition home or self-care (01) ==
PROVIDERS: Physician Assistant Medical; Emergency Provider Emergency Medicine; PCP Internal Medicine
DX: R10.9 Unspecified abdominal pain (principal); Z20.822 Contact with and (suspected) exposure to COVID-19; Z20.828 Contact with and (suspected) exposure to other viral communicable diseases; Z79.899 Other long term (current) drug therapy
CPT/HCPCS: 74177; 80053; 81003; 83735; 85025; 87635; 96374; 99284; J2270; Q9967

== ENCOUNTER → 2022-07-14 10:15 | Outpatient (BNVA) | payer OTHER, MEDICAID, SELFPAY | PROVIDERS: PCP Internal Medicine; Visit Provider Orthopaedic Surgery | DX: M75.101 Unspecified rotator cuff tear or rupture of right shoulder, not specified as traumatic (principal); E11.9 Type 2 diabetes mellitus without complications | CPT/HCPCS: 99212 ==

== ENCOUNTER → 2022-08-13 12:53 | Outpatient (BNVA) | payer OTHER, SELFPAY | PROVIDERS: PCP Registered Nurse; Visit Provider Internal Medicine Cardiovascular Disease | DX: Z01.810 Encounter for preprocedural cardiovascular examination (principal); I10 Essential (primary) hypertension; I45.10 Unspecified right bundle-branch block; Z87.891 Personal history of nicotine dependence; Z47.89 Encounter for other orthopedic aftercare; Z96.611 Presence of right artificial shoulder joint | CPT/HCPCS: 93005; 99212 ==

== ENCOUNTER → 2022-08-21 09:59 | Outpatient (BNVA) | payer OTHER, MEDICAID, SELFPAY | PROVIDERS: PCP Registered Nurse; Visit Provider Physician Assistant | DX: M75.101 Unspecified rotator cuff tear or rupture of right shoulder, not specified as traumatic (principal) | CPT/HCPCS: 99212 ==

== ENCOUNTER 2022-08-27 06:50 | Day surgery (SDC) | payer OTHER, MEDICAID, SELFPAY ==
[2022-08-25 09:01] VITALS: BMI 38.0
--- NOTE | 2022-08-26 09:43 | HO.ANESPROP2 ---
Documented by User: Glendy Osorio NP 08/26/22 09:46 HPI - Anesthesia Eval Consult details Narrative: 67yo F for Right Arthroscopic Rotator Cuff Repair Cardiac optimized PMFSH Active Problems Active Problems: All Active Problems (Updated 07/14/22 @ 10:52 by Kaz Knight) Right rotator cuff tear (Acute) Osteoarthritis of hands, bilateral (Acute) Painful arc syndrome of right shoulder (Acute) Diabetes mellitus (Acute) Frozen shoulder syndrome (Acute) Primary osteoarthritis of right knee (Acute) Other and unspecified hyperlipidemia (Acute) History of renal calculi (Acute) Chest pain (Acute) Preop cardiovascular exam (Acute) Status post total right knee replacement (Acute) Low back pain (Acute) Localized osteoarthritis of left knee (Acute) Iliotibial band tendonitis of right side (Acute) Hamstring tightness of both lower extremities (Acute) Right knee pain (Acute) Chronic pain syndrome (Acute) Right bundle branch block (RBBB) determined by electrocardiography (Acute) COVID-19 (Acute) COVID-19 (Acute) COVID-19 (Acute) Past Medical History Medical History Anxiety Asthma Bilateral primary osteoarthritis of knee Chronic kidney disease COVID-19 vaccine series completed Depression Elevated cholesterol Essential hypertension History of COVID-19 History of renal calculi Hx of hepatitis C Lumbar facet arthropathy JUSTIN (obstructive sleep apnea) Osteoarthritis of hands, bilateral Other chronic pain Other intervertebral disc displacement, lumbar region RBBB Renal stones Spondylosis of lumbar spine Type 2 diabetes mellitus with complication, without long-term current use of insulin Vitamin D deficiency Family History Family History Father Diabetes mellitus HTN (hypertension) Mother No problems noted. 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 Housing: House Are you a primary professional healthcare representative to a significant other at home: No Do you presently have visiting nurse or other home services: Yes Alcohol intake: former Year quit: 1995 Patient Tobacco Use Status: Former Tobacco user Quit Date: 2001 Tobacco use type: Cigarette Years Smoked: 5+ Substance Use Type: Crack/Cocaine Advance Directives: No Advance Directives Information Provided: No Advance Directives on File: No service: No Current occupational status: retired 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 Meds Allergies Allergy/AdvReac Type Severity Reaction Status Date / Time No Known Allergies Allergy Verified 08/21/22 10:23 [No Known Allergies*] Home Medications Medication Instructions Recorded Confirmed Last Taken Type albuterol sulfate 90 mcg/actuation 90 mcg inhalation Q4-6H PRN 03/21/20 08/25/22 Unknown History aerosol inhaler Wheezing atorvastatin 20 mg tablet 20 mg PO DAILY 03/21/20 08/25/22 11/21/20 07:00 History clonazepam 0.5 mg tablet 0.5 mg PO DAILY PRN Anxiety 03/21/20 08/25/22 Unknown History omeprazole 20 mg capsule,delayed 20 mg PO QAM 03/21/20 08/25/22 11/21/20 07:00 History release tiotropium bromide 1.25 2 puff inhalation DAILY 03/21/20 08/25/22 11/21/20 07:00 History mcg/actuation mist for inhalation amlodipine 2.5 mg tablet 2.5 mg PO DAILY 04/03/20 08/25/22 11/21/20 07:00 History fluticasone propionate 50 50 mcg intranasal BID 04/03/20 08/25/22 Unknown History mcg/actuation nasal spray,suspension lisinopril 10 1 tab PO DAILY 04/03/20 08/25/22 Unknown History mg-hydrochlorothiazide 12.5 mg tablet metformin 500 mg tablet 500 mg PO QAM 04/03/20 08/25/22 11/21/20 07:00 History montelukast 10 mg tablet 10 mg PO DAILY 04/03/20 08/25/22 Unknown History ursodiol 250 mg tablet 750 mg PO BID 04/03/20 08/25/22 11/21/20 07:00 History fluticasone propionate 115 2 puff inhalation BID 08/21/20 08/25/22 11/21/20 07:00 History mcg-salmeterol 21 mcg/actuation HFA inhaler vitamin E (dl, acetate) 180 mg 180 mg PO DAILY 11/22/20 08/25/22 Unknown History (400 unit) capsule darifenacin 15 mg tablet,extended 15 mg PO QAM 06/24/21 08/25/22 Unknown History release 24 hr hydrocodone 5 mg-acetaminophen 325 1 tab PO Q8H PRN pain 06/24/21 08/25/22 Unknown History mg tablet naloxone 4 mg/actuation nasal 0 spray intranasal 06/24/21 08/21/22 Unknown History spray (Narcan) trazodone 150 mg tablet 300 mg PO BEDTIME 06/24/21 08/25/22 Unknown History albuterol sulfate 2.5 mg/3 mL mg inhalation 10/01/21 08/21/22 Unknown History (0.083 %) solution for nebulization celecoxib 200 mg capsule 0 mg PO 07/14/22 08/21/22 Unknown History loratadine 10 mg tablet 10 mg PO QAM 08/13/22 08/25/22 Unknown History prednisone 20 mg tablet 20 mg PO BID 08/13/22 08/25/22 Unknown History Exam Exam Date and Time: August 26, 2022 0943 Height,Weight and Vital Signs: Height 4 ft 10 in Weight 82.554 kg Pertinent Lab Results Pertinent Lab Results: Laboratory Tests 06/23/22 06/23/22 11:59 11:59 WBC 5.3 Hgb 12.6 Hct 36.6 L Plt Count 255 Sodium 136 Potassium 3.8 Chloride 100 Carbon Dioxide 27 BUN 14 Creatinine 0.84 Narrative Narrative: EKG 07/2022 normal sinus rhythm with low-voltage QRS with incomplete right bundle-branch block with poor R-wave progression most likely due to lead placement ECHO 10/2021 Conclusions: - The left ventricular systolic function is normal.? The visually estimated ejection fraction is between 55-60%. ? - There is mild mitral annular calcification.? NM arleth perf SPECT rest & str 09/2021 Impression: ? 1.? Myocardial perfusion imaging study shows likely normal myocardial perfusion 2.? Gated LVEF is 70% 3. Transient ischemic dilatation not present ? EKG is nondiagnostic for ischemia ? Assessment and Plan Assessment Anesthesia Assessment: Chart Reviewed Final Anesthetic Review Family History of Problems with Anesthesia: No History of Problems with Anesthesia: No Documented by User: Mariajose Strauss MD 08/27/22 07:58 PMFSH Past Medical History Medical History Anxiety Asthma Bilateral primary osteoarthritis of knee Chronic kidney disease COVID-19 vaccine series completed Depression Elevated cholesterol Essential hypertension History of COVID-19 History of renal calculi Hx of hepatitis C Lumbar facet arthropathy JUSTIN (obstructive sleep apnea) Osteoarthritis of hands, bilateral Other chronic pain Other intervertebral disc displacement, lumbar region RBBB Renal stones Spondylosis of lumbar spine Type 2 diabetes mellitus with complication, without long-term current use of insulin Vitamin D deficiency Family History Family History Father Diabetes mellitus HTN (hypertension) Mother No problems noted. 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: House Are you a primary professional healthcare representative to a significant other at home: No Do you presently have visiting nurse or other home services: Yes Alcohol intake: former Year quit: 1995 Patient Tobacco Use Status: Former Tobacco user Quit Date: 2001 Tobacco use type: Cigarette Years Smoked: 5+ Substance Use Type: Crack/Cocaine Advance Directives: No Advance Directives Information Provided: No Advance Directives on File: No service: No Current occupational status: retired 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 Meds Allergies Allergy/AdvReac Type Severity Reaction Status Date / Time No Known Allergies Allergy Verified 08/21/22 10:23 [No Known Allergies*] Home Medications Medication Instructions Recorded Confirmed Last Taken Type albuterol sulfate 90 mcg/actuation 90 mcg inhalation Q4-6H PRN 03/21/20 08/25/22 Unknown History aerosol inhaler Wheezing atorvastatin 20 mg tablet 20 mg PO DAILY 03/21/20 08/25/22 11/21/20 07:00 History clonazepam 0.5 mg tablet 0.5 mg PO DAILY PRN Anxiety 03/21/20 08/25/22 Unknown History omeprazole 20 mg capsule,delayed 20 mg PO QAM 03/21/20 08/25/22 11/21/20 07:00 History release tiotropium bromide 1.25 2 puff inhalation DAILY 03/21/20 08/25/22 11/21/20 07:00 History mcg/actuation mist for inhalation amlodipine 2.5 mg tablet 2.5 mg PO DAILY 04/03/20 08/25/22 11/21/20 07:00 History fluticasone propionate 50 50 mcg intranasal BID 04/03/20 08/25/22 Unknown History mcg/actuation nasal spray,suspension lisinopril 10 1 tab PO DAILY 04/03/20 08/25/22 Unknown History mg-hydrochlorothiazide 12.5 mg tablet metformin 500 mg tablet 500 mg PO QAM 04/03/20 08/25/22 11/21/20 07:00 History montelukast 10 mg tablet 10 mg PO DAILY 04/03/20 08/25/22 Unknown History ursodiol 250 mg tablet 750 mg PO BID 04/03/20 08/25/22 11/21/20 07:00 History fluticasone propionate 115 2 puff inhalation BID 08/21/20 08/25/22 11/21/20 07:00 History mcg-salmeterol 21 mcg/actuation HFA inhaler vitamin E (dl, acetate) 180 mg 180 mg PO DAILY 11/22/20 08/25/22 Unknown History (400 unit) capsule darifenacin 15 mg tablet,extended 15 mg PO QAM 06/24/21 08/25/22 Unknown History release 24 hr hydrocodone 5 mg-acetaminophen 325 1 tab PO Q8H PRN pain 06/24/21 08/25/22 Unknown History mg tablet naloxone 4 mg/actuation nasal 0 spray intranasal 06/24/21 08/21/22 Unknown History spray (Narcan) trazodone 150 mg tablet 300 mg PO BEDTIME 06/24/21 08/25/22 Unknown History albuterol sulfate 2.5 mg/3 mL mg inhalation 10/01/21 08/21/22 Unknown History (0.083 %) solution for nebulization celecoxib 200 mg capsule 0 mg PO 07/14/22 08/21/22 Unknown History loratadine 10 mg tablet 10 mg PO QAM 08/13/22 08/25/22 Unknown History prednisone 20 mg tablet 20 mg PO BID 08/13/22 08/25/22 Unknown History Exam Airway Mallampati Class: II TM Dist: >3cm Neck ROM: Full Heart: rrr Lungs: cta Assessment and Plan Assessment Anesthesia Assessment: Anesthesia Plan Discussed Final Anesthetic Review ASA Class: III Final Preanesthetic Review: No Changes in Pt Med Stat, Meds/Allgs Chart Reviewed, Consent Obtained/Reviewed and Anes Risks/Benef Reviewed Patient Risk: Intermediate Procedure Risk: Intermediate Anesthetic Plan Anesthetic Plan: GA and Regional Block Disposition: Standard PACU
[2022-08-27] VITALS (10 sets, daily range): BP systolic 105–130; BP diastolic 50–69; PULSE 68–96; RESP 16–22; TEMP 35.9–36.2; O2SAT 89–96
--- OUTSIDE RECORDS SUMMARY | 2022-08-27 06:52 | XMS_ITS | Continuity of Care Document ---
Author Name Unknown Organization [facility] Address [address] [place] [id number]- Care Team Providers Care Professor Of Special Education Name Role Phone True VILLALOBOS, Nandini Perez Primary Care Physician [id number] Date(s): 06/18/22 - 08/13/[address] [address]- Encounter Diagnosis Other malaise(Final) - Discharge Disposition: A-D/C Home Attending Physician: Darcy Temple MD Admitting Physician: Darcy Temple MD Referring Physician: Darcy Temple MD Allergies, Adverse Reactions, Alerts No Known Allergies Medications Acetaminophen 1000mgs, By Mouth, 3 times a day, PRN as needed for pain, 0 Refills, Maintenance, 12/01/12 11:40:28 Start Date: 12/01/12 Status: Ordered Advair HFA 115 mcg / 21 mcg 2 puffs, Inhalation, 2 times a day, rinse mouth and throat after use, j44.9, # 1 each, 11 Refills, Maintenance, 04/08/22 9:09:00 EST, Aerosol, [facility], 2 puffs Inhalation 2 times a day,Instr:rinse mouth and throat after use, j44... Start Date: 04/08/22 Status: Ordered Aerochamber See Instructions, # 1 each, Maintenance, use with inhaler, 12/01/12 11:31:23, Compound Start Date: 12/01/12 Status: Ordered albuterol 0.083% inhalation solution 3 mL = 2.5 mg, Inhalation, Every 6 hours, PRN, 0 Refills, Maintenance Start Date: 12/01/12 Status: Ordered Aspirin = 81 mg, Daily, 0 Refills, Maintenance Start Date: 12/01/12 Status: Ordered atorvastatin 20 mg oral tablet 1 tablet = 20 mg, By Mouth, Daily, 0 Refills, Maintenance, 12/20/18 9:17:30 EDT Start Date: 12/20/18 Status: Ordered Calcium 600 +D oral tablet 1 tablet, By Mouth, Daily, 0 Refills, Maintenance Start Date: 12/01/12 Status: Ordered clonazePAM 0.5 mg oral tablet 1 tablet = 0.5 mg, By Mouth, Daily, 0 Refills, Maintenance, 08/09/15 14:35:41 EDT, Tablet Start Date: 08/09/15 Status: Ordered darifenacin 15 mg oral tablet, extended release 1 tablet, By Mouth, Daily in AM, # 30 tablet, 2 Refills, Maintenance, 07/02/22 8:45:00 EDT, [facility], 147.32, cm, 04/08/22 8:19:00 EST, Height Start Date: 07/02/22 Status: Ordered Diabetic Tuss = 100 mg, By Mouth, Every 4 hours, 0 Refills, Maintenance, 08/09/15 14:39:03 Start Date: 08/09/15 Status: Ordered Flonase 50 mcg/inh nasal spray Daily, 0 Refills, Maintenance, 12/20/18 9:12:48 EDT Start Date: 12/20/18 Status: Ordered hydrochlorothiazide-lisinopril 12.5 mg-10 mg oral tablet 1 tablet, By Mouth, Daily, # 30 tablet, 0 Refills, Maintenance, 08/09/15 14:36:59, Tablet Start Date: 08/09/15 Status: Ordered Hydrocodone 5mg/325mgs, By Mouth, 3 times a day, PRN Pain , Moderate, 0 Refills, Maintenance, 09/07/13 11:15:53 Start Date: 09/07/13 Status: Ordered ibuprofen 600 mg oral tablet 1 tablet = 600 mg, By Mouth, Every 8 hours, # 40 tablet, 0 Refills, Maintenance, 09/19/13 16:12:34,Tablet Start Date: 09/19/13 Status: Ordered Lidocaine 5% patch, 0 Refills, Maintenance, 12/20/18 9:16:33 EDT Start Date: 12/20/18 Status: Ordered loratadine 10 mg oral capsule 1 capsule = 10 mg, By Mouth, Daily, # 10 capsule, 0 Refills, Maintenance, Capsule Start Date: 12/01/12 Status: Ordered Metformin = 500 mg, By Mouth, Daily, 0 Refills, Maintenance, 12/01/12 11:40:00 Start Date: 12/01/12 Status: Ordered MiraLax oral powder for reconstitution = 17 Gm, By Mouth, Daily, dissolve in water before taking, # 255 Gm, 0 Refills, Maintenance, 08/09/15 14:36:04, REC Powder Start Date: 08/09/15 Status: Ordered Prevnar 13 intramuscular suspension 0.5 mL, Intramuscular, Once, # 1 each, 0 Refills, Maintenance, 08/09/15 14:37:57, Suspension Start Date: 08/09/15 Status: Ordered ProAir HFA 90 mcg/inh inhalation aerosol with adapter 2, puffs, Inhalation, Every 4 hours, PRN, # 8.5 Gm, Refills 0, Tot. Refills 0, Maintenance, 12/20/18 9:29:34 EDT, Aerosol, Route to Pharmacy Electronically, [id number], [facility] Start Date: 12/20/18 Status: Ordered Singulair 10 mg oral tablet 1 tablet = 10 mg, By Mouth, Daily before dinner, 0 Refills, Maintenance Start Date: 12/01/12 Status: Ordered Singulair 10 mg oral tablet 10 mg, 1, tablet, By Mouth, Daily, # 30 tablet, Refills 3, Tot. Refills 3, Maintenance, 09/11/21 11:41:00 EDT, Route to Pharmacy Electronically, [facility] Start Date: 09/11/21 Status: Ordered Singulair 10 mg oral tablet 10 mg, 1, tablet, By Mouth, Daily, j45.909, # 30 tablet, Refills 6, Tot. Refills 6, Maintenance, 07/16/22 11:38:00 EDT, Route to Pharmacy Electronically, [facility], j45.9, 147.32, cm, 04/08/22 8:19:00 EST, Height Start Date: 07/16/22 Status: Ordered Spiriva Respimat 1.25 mcg/inh inhalation aerosol 2 puffs, Inhalation, Daily, j44.9, # 1 each, 6 Refills, Maintenance, 02/27/22 19:09:00 EST, Aerosol, [facility] Start Date: 02/27/22 Status: Ordered traZODone 150 mg oral tablet By Mouth, Daily, 0 Refills, Maintenance, 12/20/18 9:18:38 EDT Start Date: 12/20/18 Status: Ordered Trazodone Tablet 300 mg, By Mouth, Daily at bedtime, Maintenance, 12/01/12 11:35:56 Start Date: 12/01/12 Status: Ordered ursodiol 250 mg oral tablet See Instructions, 3 tabs 2xday, 0 Refills, Maintenance, 12/01/12 11:37:34 Start Date: 12/01/12 Status: Ordered Vitamin D3 See Instructions, 1000i.u By Mouth daily, 0 Refills, Maintenance Start Date: 12/01/12 Status: Ordered Vitamin E = 400 International_Units, By Mouth, Daily, 0 Refills, Maintenance, 09/07/13 11:21:17 Start Date: 09/07/13 Status: Ordered Vitamin E By Mouth, Daily, 0 Refills, Maintenance, 10/06/18 15:58:35 EDT Start Date: 10/06/18 Status: Ordered Problem List Condition Confirmation Course Effective Dates Status Health [facility] Informant Asthma Confirmed Active Obese class II Confirmed Active Urinary incontinence Confirmed Active Social History Social History Type Response Smoking Status Former smoker entered on: 01/23/15 Sex Patient Care team information Care Team Personnel Name: Nandini Biswas NP, V Position: [facility] Outreach Member Role: PCP Address: Address: [address] [place] [address] [address] [place] [address], [facility]. [place], [place] [address] Name: Fawn Ansari RN Position: S RN Member Role: Primary Care Nurse Name: Nakita Luong Position: S TA Member Role: Lifetime Consulting Physician Name: Scott Christine RN Position: S RN Member Role: Primary Care Nurse Name: Twyla Jeronimo RN Position: S RN Member Role: Primary Care Nurse Care Team Related Persons Name: ENRIQUE MAN Address: home [address] [place] [address]
--- OUTSIDE RECORDS SUMMARY | 2022-08-27 06:53 | XMS_ITS ---
Author Name Jason Lora Address [address] [place] [address] Organization [facility] Address [address] [place] [address] Care Team Providers Care Millstone Cleaner Name Role Phone Jason Lora Unavailable [phone] PROBLEMS Type Condition ICD9-CM Code THG64-PS Code Onset Dates Condition Status SNOMED Code Problem History of hepatitis C Z86.19 Active [id number] Problem Chronic gastritis without bleeding, unspecified gastritis type K29.50 Active 93866484 Problem Other cirrhosis of liver K74.69 Active 24138318 Problem Fatty liver K76.0 Active 034141266 Problem Encounter for screening for malignant neoplasm of colon Z12.11 Active [id number] ALLERGIES No Known Allergies ENCOUNTERS Encounter Location Date Diagnosis [facility] [address] [place] [phone] Jun, [facility] [address] [place] [phone] May, [facility] [address] [place] [phone] Feb, Fatty liver K76.0 ; Other cirrhosis of liver K74.69 and History of hepatitis C Z86.19 [facility] [address] [place] [phone] 02 Aug, 2021 Other cirrhosis of liver K74.69 ; Fatty liver K76.0 and History of hepatitis C Z86.19 [facility] [address] [place] [address] July, [facility] [address] [place] [address] [place] [address] 11 Jun, 2021 [facility] [address] [place] 18 Jul, 2020 [facility] [address] [place] [address] [place] [phone] 21 Jun, 2020 [facility] [address] [place] [address] [place] 13 Jun, 2020 [facility] [address] [place] [address] [place] 13 Jun, 2020 Other cirrhosis of liver K74.69 ; Fatty liver K76.0 and History of hepatitis C Z86.19 [facility] [address] [facility] [place] [address] 12 Jun, 2020 [facility] [address] [place] [phone] Aug, [facility] [address] [place] [phone] July, [facility] [address] [place] [id number] Jun, [facility] [address] [place] [phone] Jun, Other cirrhosis of liver K74.69 ; Fatty liver K76.0 ; History of hepatitis C Z86.19 and Chronic gastritis without bleeding, unspecified gastritis type K29.50 [facility] [address] [place] [phone] Apr, [facility] [address] [place] [phone] July, [facility] [address] [place] [phone] Apr, [facility] [address] [place] [id number] Apr, [facility] [address] [place] [id number] Feb, [facility] [address] [place] [phone] Feb, Other cirrhosis of liver K74.69 ; Fatty liver K76.0 ; Encounter for screening for malignant neoplasm of colon Z12.11 and History of hepatitis C Z86.19 [facility] [address] [place] [address] July, [facility] [address] [place] [address] Feb, Fatty liver K76.0 ; Other cirrhosis of liver K74.69 and Encounter for screening for malignant neoplasm of colon Z12.11 [facility] [address] [place] [address] Oct, [facility] [address] [place] [address] Jan, Fatty liver K76.0 and Other cirrhosis of liver K74.69 [facility] [address] [place] [address] Oct, [facility] [address] [place] [phone] Jan, [facility] [address] [place] [address] Jan, [facility] [address] [place] [id number] Jan, Other cirrhosis of liver K74.69 and Fatty liver K76.0 [facility] [address] [place] [id number] Nov, [facility] [address] [place] [id number] Sep, [facility] [address] [place] [id number] Nov, [facility] [address] [place] [phone] Aug, Fatty liver 571.8 ; Constipation 564.00 and Liver function study, abnormal 794.8 [facility] [address] [place] [address] Feb, [facility] [address] [place] [address] 07 Aug, 2012 Fatty liver 571.8 and Liver function study, abnormal 794.8 [facility] [address] [place] [address] Aug, [facility] [address] [place] [address] Dec, [facility] [address] [place] [address] Aug, Other chronic nonalcoholic liver disease 571.8 [facility] [address] [place] [phone] Aug, [facility] [address] [place] [id number] Oct, [facility] [address] [place] [id number] Oct, [facility] [address] [place] [id number] Jun, [facility] [address] [place] [id number] May, [facility] [address] [place] [id number] Dec, [facility] [address] [place] [id number] Mar, [facility] [address] [place] [id number] Jun, [facility] [address] [place] [id number] Nov, [facility] [address] [place] [id number] Mar, IMMUNIZATIONS Vaccine Route Administration Date Status [...] Frequency Start Date End Date Duration Status SudoGest 30 MG 30 A ctive KlonoPIN 0.5 MG Orally Twice a day 1 tablet 12h Active ProAir HFA 108 (90 Base) MCG/ACT Inhalation every 4 hrs 2 puffs as needed 4h Active HYDROcodone-Ac etaminophen 5-500 MG Orally every 6 hrs 1 capsule as needed 6h Active Ursodiol 250 MG Orally Twice a day 3 12h 13 May, 2022 30 day(s) Active clonazePAM 0.5 MG 30 Active Omeprazole 20 MG Orally Once a day 1 24h 18 Jul, 2020 30 day(s) Active Flovent HFA 12mg Active Ursodiol 250 MG Orally Twice a day 3 12h 11 Jun, 2021 30 day(s) Active Omeprazole 20 MG Orally QAM 1 July, 30 day(s) Active Ursodiol 250 MG Orally Twice a day 3 12h 21 Jun, 2020 30 day(s) Active Vitamin D 1000unit Active Omeprazole 20 MG Orally Once a day 1 24h Aug, 30 day(s) Active Singulair 10mg A ctive Calcium 600 + D 600mg Active metFORMIN HCl 500mg Active glipiZIDE XL 5mg Active Ursodiol 250 MG Orally BID 3 12h 24 Jul, 2017 Active Omeprazole 20 MG Orally Every morning 1 12 Jun, 2022 30 day(s) Active oxyCODONE HCl 5 MG/5ML Orally every 6 hrs 5 ml as needed 6h Active traZODone HCl 150 MG Orally Once a day 1 tablet at bedtime 24h Active PROCEDURES Procedure Date Ordered Result Body Site BMI >=30 CALCUATE W/FOLLOWUP Mar 05, 2018 BP SCR PRFRM RCMDD DEFIND SCR INTVL Mar 05, 2018 DOC MEDS VERIFIED W/PT OR RE July 03, 2020 TOBACCO NON-USER Mar 05, 2018 DOC MEDS VERIFIED W/PT OR RE June 22, 2019 DOC MEDS VERIFIED W/PT OR RE Mar 05, 2018 BP SCR NOT PRFRM REC REASON NOS Feb 25, 2022 COLORECTAL CA SCREEN DOC REV August 22, 2021 TOBACCO NON-USER Feb 25, 2022 FLU IMMUNIZE ORDER/ADMIN Mar 05, 2018 TOBACCO NON-USER August 22, 2021 COLORECTAL CA SCREEN DOC REV July 03, 2020 TOBACCO NON-USER July 03, 2020 COLORECTAL CA SCREEN DOC REV June 22, 2019 TOBACCO NON-USER June 22, 2019 DOC MEDS VERIFIED W/PT OR RE Feb 25, 2022 COLORECTAL CA SCREEN DOC REV Mar 05, 2018 BP SCR NOT PRFRM REC REASON NOS August 22, 2021 DOC MEDS VERIFIED W/PT OR RE August 22, 2021 BP SCR PRFRM RCMDD DEFIND SCR INTVL July 03, 2020 COLORECTAL CA SCREEN DOC REV Feb 25, 2022 BP SCR PRFRM RCMDD DEFIND SCR INTVL June 22, 2019 RESULTS Name Result Date Reference Range Complete [...] () NECROINFLAMMAT ACTIVITY INTERP SEE NOTE () [id number] 355 106-279 HAPTOGLOBIN 180 43-212 APOLIPOPROTEIN A1 141 101-198 TOTAL BILIRUBIN 0.3 0.2-1.2 GGT 14 3-70 ALT 21 6-29 REFERENCE ID [id number] () FOOTNOTE SEE NOTE () LIVER PROFILE [...] Subscriber Name Subscriber Date of Group No [facility] [address] [facility] [id number] [facility] self TRUPTI MAGUIRE [id number] [facility] [address] [address] [facility] [id number] [facility] self TRUPTI MAGUIRE [id number] [facility] [address] [facility] [place] [phone] [facility] sudnay MAGUIRE [id number] [employer] [facility] [address] [place]ON[place] SMITH [address] [employer] [facility] sunday MAGUIRE [id number]
[2022-08-27 07:24] LABS: Glucose, Whole Blood 126 mg/dL (60-115)
[2022-08-27] MEDS: Albuterol Sulfate (0.083%) 2.5 MG/3 ML VIAL.NEB INHALE (08:37)
--- NOTE | 2022-08-27 08:50 | MHC.SHP ---
Pre-Procedural Eval Section A Date of Service: 08/27/22 The patient is an INPATIENT: No Changes since office visit: No Cold of Flu in the past 2 weeks, No New Medical Problems, No Changes in Medication and No Patient answered all questions The History & Physical has been completed within 30 days and I have reviewed it.: Yes Section B Chief Complaint: Unspecified rotator cuff tear or rupture of right Allergies: Allergies Allergy/AdvReac Type Severity Reaction Status Date / Time No Known Allergies Allergy Verified 08/21/22 10:23 [No Known Allergies*] Plan I have reviewed the history and physical and performed a pertinent physical examination on my patient. No changes have occurred unless specified. Time Spent With Patient Time: Total time managing care of this patient today ____ minutes.
--- NOTE | 2022-08-27 08:58 | PC.NURSE ---
paTIENT RECEIVING RESP TREATMENT
--- NOTE | 2022-08-27 10:55 | P.BOP_ITS ---
Brief Operative Note Date of Service: 08/27/22 Pre-op diagnosis: Right RTC tear Post-op diagnosis: same Procedure: Right RTC repair and SAD Implants: Rausch [employer] Nephew Helacoil double loaded medial row anchors x 2 [employer]ch [employer]hew Helacoil knotless 5.0 lateral row anchors Surgeon: Ulises Solorzano MD Anesthesia: GETA and regional Was an Clinical Product Manager used for this Procedure?: Yes Clinical Product Manager: Laurie Heredia Estimated blood loss (mL): 25 IV fluids (mL): 1,000 Pathology: none sent Condition: stable Disposition: PACU
--- NOTE | 2022-08-27 13:00 | P.OP_ITS ---
Operative Note Operative Note Date of Service: 08/27/22 Narrative: Date of Service: 08/27/22 Pre-op diagnosis: Right RTC tear Post-op diagnosis: same Procedure: Right RTC repair and SAD Implants: [employer]ch [employer]hew Helacoil double loaded medial row anchors x 2 [employer]ch [employer]hew Helacoil knotless 5.0 lateral row anchors Surgeon: Ulises Solorzano MD Anesthesia: GETA and regional Was an Automobile Assembly Supervisor used for this Procedure?: Yes Automobile Assembly Supervisor: Laurie Heredia Estimated blood loss (mL): 25 IV fluids (mL): 1,000 Pathology: none sent Condition: stable Disposition: PACU Procedure in detail: Patient was brought to the operating room and placed the the beach chair position. All bony prominences were well padded and the limb was prepped and draped in standard sterile fashion. A time out was called to identify proper site, proper procedure and proper surgeon. IV antibiotics per weight were adm inistered. I began by making a posterolateral stab incision with a 15 blade. A blunt trochar was placed into the glenohumeral joint and I insufflated the joint with saline and a 30 degree arthroscope was placed. I established an outside- in anterior portal just distal to the biceps tendon. I then began my inspection of the glenohumeral joint. There was intact biceps and labral anchor with no degen erative tearing of the labrum circumferentially. There was a small( 3-5mm) full thickness contained defect in the HH and no glenoid articualr cartilage changes. there was synovitis in the anterior interval. The biceps was frayed ( <10%) along the 1 cm proximal to the subscpularis attachment. The subscpularis was intact. There was a full thickness undersurface tear of the supraspinatus visuible form the GH joint. I debrided the anterior interval and the biceps tendon. I then removed the trochar and entered the subacromial space. A direct lateral portal was then established and I performed a bursectomy. The cuff was then examined. There was a full thickness tear of the supraspinatus with some intra- substance tearing and mild retraction. It was mobile however and the tissue was helathy. I then placed two medial row double loaded anchors and then brought the suture tape and 2.0 suture through the medial cuff. I then debrided the bare area down to bleeding bone and, using a cross bridge configuration, brought three limbs to each of two lateral 5.0 anchors. This re-approximated the cuff anatomically. I then performed a 5 mm subacromial decompression. Once I was satisfied with the repair final images were captured and I removed all instrumentation. Portals were closed with nylon. Patient was placed in an abduction sling, extubated and brought to the recovery room in stable condition. There were no known complications.
== END 2022-08-27 13:50 | disposition home or self-care (01) ==
PROVIDERS: PCP Internal Medicine; Visit Provider Orthopaedic Surgery
PROC: (CPT 29827; principal; 2022-08-27 08:50)
DX: M75.101 Unspecified rotator cuff tear or rupture of right shoulder, not specified as traumatic (principal); M65.811 Other synovitis and tenosynovitis, right shoulder; G89.29 Other chronic pain; M47.816 Spondylosis without myelopathy or radiculopathy, lumbar region; M51.26 Other intervertebral disc displacement, lumbar region; E11.22 Type 2 diabetes mellitus with diabetic chronic kidney disease; I12.9 Hypertensive chronic kidney disease with stage 1 through stage 4 chronic kidney disease, or unspecified chronic kidney disease; N18.9 Chronic kidney disease, unspecified; E78.00 Pure hypercholesterolemia, unspecified; E55.9 Vitamin D deficiency, unspecified; G47.33 Obstructive sleep apnea (adult) (pediatric); J45.909 Unspecified asthma, uncomplicated; Z79.51 Long term (current) use of inhaled steroids; Z79.899 Other long term (current) drug therapy; Z79.84 Long term (current) use of oral hypoglycemic drugs; Z87.442 Personal history of urinary calculi; Z87.891 Personal history of nicotine dependence
CPT/HCPCS: 29827; 29826; 82947; 94640; C1713; J0171; J0690; J1100; J2370; J2405; J3010

== ENCOUNTER → 2022-09-01 09:14 | Outpatient (BNVA) | payer OTHER, MEDICAID, SELFPAY | PROVIDERS: PCP Registered Nurse; Visit Provider Physician Assistant | DX: Z47.89 Encounter for other orthopedic aftercare (principal); Z98.890 Other specified postprocedural states | CPT/HCPCS: 99212 ==

== ENCOUNTER 2022-10-09 10:01 | Outpatient (AMB) | payer OTHER, MEDICAID, SELFPAY ==
--- NOTE | 2022-10-09 10:43 | A.OFFVIS_ITS ---
Intake Intake Visit Reasons: Postop-RT RTC repair 08/27/22 NE-F/U Intake Note: Ludivina is a 67 year old female who presents today for a post operative appointment s/p right RTC repair, 08/27/22 NE Patient reports that she is doing well, continues to work with physical therapy. She has mild increase in pain after physical therapy. continues to struggle with full ROM but it is getting better. Allergies No Known Allergies [No Known Allergies*] Allergy (Verified 09/01/22 09:19) HPI Postop-RT RTC repair 08/27/22 NE-F/U HPI Details Ludivina is a 67 year old woman who presents ~6 weeks S/P right RTC repair with SAD. She says she is doing well and continues to work with PT. She is still working towards full ROM, and has some pain only after PT sessions. She is happy with the results of her surgery. [facility] Medical History Anxiety Asthma Bilateral primary osteoarthritis of knee Chronic kidney disease COVID-19 vaccine series completed Depression Elevated cholesterol Essential hypertension History of COVID-19 History of renal calculi Hx of hepatitis C Lumbar facet arthropathy JUSTIN (obstructive sleep apnea) Osteoarthritis of hands, bilateral Other chronic pain Other intervertebral disc displacement, lumbar region RBBB Renal stones Spondylosis of lumbar spine Type 2 diabetes mellitus with complication, without long-term current use of insulin Vitamin D deficiency Surgical History H/O abdominal hysterectomy H/O tubal ligation History of colonoscopy History of esophagogastroduodenoscopy (EGD) History of laryngoscopy History of total right knee replacement (TKR) Hx of arthroscopy of left knee Hx of dilation and curettage Hx of lithotripsy Hx of umbilical hernia repair S/P repair of ventral hernia Family History Father Diabetes mellitus HTN (hypertension) Mother No problems noted. 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 Review of Systems Const All systems reviewed & are unremarkable except as noted in HPI and below Physical Exam Const General: no acute distress and alert Orientation/consciousness: patient oriented x3 Neuro General: patient oriented x3 Extrem Other: Right Shoulder: Limited active AB Passive ROM to 90 Well-healed portals Psych Appearance: grossly normal Affect: normal affect Attitude: cooperative Assessment & Plan Assessment & Plan (1) Status post right rotator cuff repair: Code(s): Z98.890 - Other specified postprocedural states Plan: This is a 67 year old woman S/P right RTC repair with SAD, DOS: 08/27/22. She says she is doing well, denies any pain, and continues to work with PT on ROM. She is happy with the results of her surgery. I recommend she continue with PT and avoid any heavy lifting activities. She will follow up in 6 weeks. Plan Scribed for Ulises Solorzano MD by Kaz Knight, biomedical engineering internship, on 10/09/22 at 10:55 AM, EST. Coding Level of Care Code Global (60657) Diagnoses Status post right rotator cuff repair Z98.890
== END 2022-10-09 10:59 | disposition home or self-care (01) ==
PROVIDERS: PCP Registered Nurse; Visit Provider Orthopaedic Surgery
DX: Z98.890 Other specified postprocedural states (principal)
CPT/HCPCS: 99024

== ENCOUNTER → 2022-10-09 10:01 | Outpatient (BNVA) | payer OTHER, MEDICAID, SELFPAY | PROVIDERS: PCP Registered Nurse; Visit Provider Orthopaedic Surgery ==

== ENCOUNTER 2022-10-30 08:01 | Outpatient (REF) | payer OTHER, MEDICAID, SELFPAY | END 2022-10-30 08:02 | disposition home or self-care (01) | LOC: HO.HOSX 08:01 | PROVIDERS: Visit Provider Orthopaedic Surgery | DX: Z13.89 Encounter for screening for other disorder (principal) ==

== ENCOUNTER 2022-11-13 09:00 | Outpatient (RCR) | payer OTHER, SELFPAY ==
--- NOTE | 2022-09-02 09:57 | MHC.PT.EP ---
[facility] [place] Office [place] Office [place] Office [address] [place] [address] [phone] F: [phone] F: [phone] F: [phone] F: [phone] Physical Therapy Plan of Care Date of Evaluation: Date of Surgery: 08/27/22 Diagnosis: R RTC Repair Assessment: 67 y/o RHD female s/p R RTC Repair 08/27/22 resulting in pain and difficulty with dressing, grooming, sleeping, reaching, lifting, ADL's secondary to decreased R shoulder ROM, decreased strength (not formally tested d/t surgical guidelines at this time), increased pain, and impaired postural awareness. Educated pt on how to don/doff sling properly, proper pendulum technique, precautions of surgery (NWB, no lifting, wearing sling at all times except hygiene and PT), and use of ice. Recommend PT 2x/week for 12 weeks to address impairments, implement HEP, and optimize functional mobility. Will utilize Advanced CEU Protocol for Arthroscopic RTC Repair Medium to Large Tears. 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 Manual therapy to restore motion and function. Therapeutic exercise to improve strength and flexibility. Neuromuscular re-education for posture and balance. Therapeutic activities to return to functional activities of daily living. Electronically signed by: Bessy Whitmore PT Please sign and return to therapist. Thank you for your referral.
--- NOTE | 2022-12-18 15:01 | MHC.PT.DC ---
[facility] [place] Office [place] Office [place] Office [address] [place] [address] [phone] F: [phone] F: [phone] F: [phone] F: [phone] Physical Therapy Discharge Report Diagnosis: R RTC Repair Date of Surgery: 08/27/22 Date of Evaluation: 09/02/22 Date of Discharge: 12/18/22 Treatments to Date: 16 Cancellations to Date: 0 No Shows to Date: 0 Discharge Status: Improved Function Independent with HEP Discharge Summary: Pt with improve shoulder ROM and strength. Pt to continue with I HEP Electronically signed by: Bessy Whitmore PT Please sign and return to therapist. Thank you for your referral.
== END 2022-12-18 15:02 | disposition home or self-care (01) ==
LOC: HO.PT 09:00
PROVIDERS: PCP Registered Nurse; Visit Provider Physician Assistant
DX: M75.101 Unspecified rotator cuff tear or rupture of right shoulder, not specified as traumatic (principal); Z98.890 Other specified postprocedural states
CPT/HCPCS: 97110; 97112; 97140; 97162

== ENCOUNTER 2022-11-14 08:47 | Outpatient (REF) | payer OTHER, MEDICAID, SELFPAY | END 2022-11-14 08:48 | disposition home or self-care (01) | LOC: HO.HOSX 08:47 | PROVIDERS: Visit Provider Orthopaedic Surgery | DX: Z13.89 Encounter for screening for other disorder (principal) ==

== ENCOUNTER 2022-11-17 18:11 | Outpatient (REF) | payer OTHER, MEDICAID, SELFPAY | END 2022-11-17 18:12 | disposition home or self-care (01) | LOC: HO.HHCLNP 18:11 | PROVIDERS: Visit Provider Registered Nurse | DX: M54.50 Low back pain, unspecified (principal); G89.29 Other chronic pain; F32.A Depression, unspecified; M25.561 Pain in right knee; K74.60 Unspecified cirrhosis of liver | CPT/HCPCS: 80365; G0480 ==

== ENCOUNTER 2022-12-04 12:22 | Outpatient (REF) | payer OTHER, MEDICAID, SELFPAY ==
--- NOTE | ~2022-12-04 | XR_ITS ---
EXAMINATION: XR RIGHT KNEE, LEFT KNEE, STANDING CLINICAL INFORMATION: Knee pain COMPARISON: 08/22/2021 TECHNIQUE: AP standing view of bilateral knees. Lateral and sunrise views of bilateral knees. FINDINGS: Right knee: Redemonstration of right total knee prosthesis. Hardware appears intact. Suprapatellar effusion present. Prepatellar soft tissue swelling. Left knee: Moderate medial joint space narrowing. Small medial and posterior patellar osteophytes. Suprapatellar effusion present. Small quadriceps enthesophyte. XR/XR knee LT 2V IMPRESSION: 1. Redemonstration of right total knee prosthesis. Hardware appears intact. Right joint effusion. 2. Moderate degenerative changes left knee. Left joint effusion
--- NOTE | ~2022-12-04 | XR_ITS ---
EXAMINATION: XR RIGHT KNEE, LEFT KNEE, STANDING CLINICAL INFORMATION: Knee pain COMPARISON: 08/22/2021 TECHNIQUE: AP standing view of bilateral knees. Lateral and sunrise views of bilateral knees. FINDINGS: Right knee: Redemonstration of right total knee prosthesis. Hardware appears intact. Suprapatellar effusion present. Prepatellar soft tissue swelling. Left knee: Moderate medial joint space narrowing. Small medial and posterior patellar osteophytes. Suprapatellar effusion present. Small quadriceps enthesophyte. XR/XR knee standing BI IMPRESSION: 1. Redemonstration of right total knee prosthesis. Hardware appears intact. Right joint effusion. 2. Moderate degenerative changes left knee. Left joint effusion
--- NOTE | ~2022-12-04 | XR_ITS ---
EXAMINATION: XR RIGHT KNEE, LEFT KNEE, STANDING CLINICAL INFORMATION: Knee pain COMPARISON: 08/22/2021 TECHNIQUE: AP standing view of bilateral knees. Lateral and sunrise views of bilateral knees. FINDINGS: Right knee: Redemonstration of right total knee prosthesis. Hardware appears intact. Suprapatellar effusion present. Prepatellar soft tissue swelling. Left knee: Moderate medial joint space narrowing. Small medial and posterior patellar osteophytes. Suprapatellar effusion present. Small quadriceps enthesophyte. XR/XR knee RT 2V IMPRESSION: 1. Redemonstration of right total knee prosthesis. Hardware appears intact. Right joint effusion. 2. Moderate degenerative changes left knee. Left joint effusion
== END 2022-12-04 12:23 | disposition home or self-care (01) ==
LOC: HO.HOSX 12:22
PROVIDERS: Visit Provider Orthopaedic Surgery
DX: M25.562 Pain in left knee (principal); Z98.890 Other specified postprocedural states; Z96.651 Presence of right artificial knee joint
CPT/HCPCS: 73560; 73565; 99212

== ENCOUNTER 2022-12-04 12:48 | Outpatient (AMB) | payer OTHER, MEDICAID, SELFPAY ==
--- NOTE | 2022-12-04 13:37 | MHC.OFFVIS ---
Intake Intake Visit Reasons: OV-Right TKA 11/19/20 KI - Increased Pain Intake Note: Ludivina is a 67 year old female who presents today for a follow up of her left TKA 11/21/20, with complaints of increased pain. Allergies No Known Allergies [No Known Allergies*] Allergy (Verified 09/01/22 09:19) HPI OV-Right TKA 11/19/20 KI - Increased Pain HPI Details This is a 67-year-old woman who is approximately 2 years status post right knee replacement and approximately 3 months status post right rotator cuff repair. She missed her last shoulder appointment and was concerned about that although she states her shoulder feels good thought she should come in. Her right knee is occasionally painful but she walks comfortably of most of the time without discomfort. [facility] Medical History Anxiety Asthma Bilateral primary osteoarthritis of knee Chronic kidney disease COVID-19 vaccine series completed Depression Elevated cholesterol Essential hypertension History of COVID-19 History of renal calculi Hx of hepatitis C Lumbar facet arthropathy JUSTIN (obstructive sleep apnea) Osteoarthritis of hands, bilateral Other chronic pain Other intervertebral disc displacement, lumbar region RBBB Renal stones Spondylosis of lumbar spine Type 2 diabetes mellitus with complication, without long-term current use of insulin Vitamin D deficiency Surgical History H/O abdominal hysterectomy H/O tubal ligation History of colonoscopy History of esophagogastroduodenoscopy (EGD) History of laryngoscopy History of total right knee replacement (TKR) Hx of arthroscopy of left knee Hx of dilation and curettage Hx of lithotripsy Hx of umbilical hernia repair S/P repair of ventral hernia Family History Father Diabetes mellitus HTN (hypertension) Mother No problems noted. 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 No tenderness to palpation and full range of motion. Normal gait Right shoulder with of full range of motion. Negative empty can. Results Reviewed Results Reviewed: I personally reviewed relevant radiographs. RIght total knee arthroplasty in expected post operative position with no hardware complications or evidence of loosening Assessment & Plan Assessment & Plan (1) Status post right rotator cuff repair: Code(s): Z98.890 - Other specified postprocedural states Plan: Doing well status post right rotator cuff repair. No further intervention warranted. (2) Status post total right knee replacement: Code(s): Z96.651 - Presence of right artificial knee joint Plan: Right knee overall doing well. Intermittent pain. No intervention warranted at this time. Orders: Orders XR knee standing BI 11/14/22 M25.569 - Pain in unspecified knee XR knee RT 2V 11/14/22 M25.569 - Pain in unspecified knee XR knee LT 2V 12/04/22 M25.569 - Pain in unspecified knee XR knee standing BI 12/04/22 M25.569 - Pain in unspecified knee XR knee RT 2V 12/04/22 M25.569 - Pain in unspecified knee Coding Level of Care Code Est Pt Level 3 (86561) Diagnoses Status post right rotator cuff repair Z98.890 Status post total right knee replacement Z96.651
== END 2022-12-04 13:47 | disposition home or self-care (01) ==
PROVIDERS: PCP Registered Nurse; Visit Provider Orthopaedic Surgery
DX: Z47.1 Aftercare following joint replacement surgery (principal); Z96.651 Presence of right artificial knee joint
CPT/HCPCS: 99213

== ENCOUNTER 2022-12-30 14:20 | Outpatient (REF) | payer MEDICARE, MEDICAID, SELFPAY | END 2022-12-30 14:21 | disposition home or self-care (01) | LOC: HO.HHCL 14:20 | PROVIDERS: Visit Provider Nurse Practitioner Family | DX: R07.9 Chest pain, unspecified (principal) | CPT/HCPCS: 36415; 80051 ==

== ENCOUNTER 2023-02-20 12:29 | Emergency (ER) | payer MEDICARE, MEDICAID, SELFPAY ==
--- NOTE | ~2023-02-20 | CT_ITS ---
EXAMINATION: CT ABDOMEN AND PELVIS WITH CONTRAST CLINICAL INFORMATION: 66-year-old female with right lower quadrant abdominal pain rule out appendicitis COMPARISON: 06/23/2022 TECHNIQUE: Multidetector volumetric images were obtained from the superior aspect of the liver through the pubic symphysis following administration 85 mL of Omnipaque 350 intravenous contrast. Sagittal and coronal reformatted images were obtained on the technologist's workstation. Oral contrast: No This CT examination was performed using dose optimization techniques as appropriate, variously including the following: *Automated exposure control *Adjustment of mA and/or kV according to patient size (this includes techniques or standardized protocols for targeted exams where dose is matched to indication/reason for exam; i.e. extremities or head) *Use of iterative reconstruction technique DLP: 744 mGy-cm FINDINGS: LUNG BASES: The visualized lung bases are unremarkable. LIVER, GALLBLADDER, AND BILIARY TREE: Liver is of low attenuation due to hepatic steatosis without masses or ductal dilatation seen. Punctate calcifications seen in the right lobe of the liver due to granulomatous disease. The gallbladder is unremarkable with no evidence of radiopaque gallstones, gallbladder wall thickening, or obvious pericholecystic inflammatory changes. PANCREAS: Unremarkable. SPLEEN: Unremarkable. ADRENAL GLANDS: Unremarkable. KIDNEYS AND URETERS: The small cortical cysts seen bilaterally and there is an exophytic calcified lesion seen in the left kidney, measured 0.8 cm. Small parenchymal cyst in the upper pole of left kidney measured 1.0 cm.. BLADDER: Unremarkable. GASTROINTESTINAL TRACT: The small and large bowel are unremarkable. The appendix is unremarkable. ABDOMINAL WALL: No significant hernia is appreciated. LYMPH NODES: Normal. VASCULAR: Unremarkable. PELVIC VISCERA: Uterus is surgically absent OSSEOUS STRUCTURES: Unremarkable. CT/CT abdomen pelvis w IV con IMPRESSION: 1. No acute abnormalities. Hepatic steatosis. 2. Small renal cysts. 3. Normal appendix. 4. Status post hysterectomy. Fleischner guidelines were followed.
[2023-02-20 12:39] VITALS: BP 152/84; PULSE 60; O2SAT 99
[2023-02-20 12:45] VITALS: BP 131/63; PULSE 67; RESP 20; TEMP 37; O2SAT 97; BMI 38.7
--- NOTE | 2023-02-20 13:08 | ED_ITS ---
HPI - Abdominal Pain General Chief Complaint: Abdominal Pain Stated Complaint: Ascites Time Seen by Provider: 02/20/23 13:08 Source: patient Mode of arrival: ambulatory Limitations: no limitations History of Present Illness HPI narrative: 67-year-old female with a history of diabetes, hypertension, high cholesterol hepatitis-C, asthma, anxiety, depression, right bundle-branch block who presents emergency department for evaluation of 3 days right lower quadrant pain. Patient was seen at urgent care clinic and referred to the emergency department. Patient states that the pain started 3 days ago and came on suddenly. She describes the pain is intermittent squeezing pain which is 6/10 at its worst. Patient has associated shortness of breath and urinary frequency. She denied fever, chills, rhinorrhea, sore throat, cough, chest pain, nausea, vomiting, diarrhea, black stools, bloody stools or dysuria. This is a 1st episode of this type of pain. Related Data Home Medications Medication Instructions Recorded Confirmed albuterol sulfate 90 mcg/actuation 90 mcg inhalation Q4-6H PRN 03/21/20 08/25/22 aerosol inhaler Wheezing atorvastatin 20 mg tablet 20 mg PO DAILY 03/21/20 08/25/22 clonazepam 0.5 mg tablet 0.5 mg PO DAILY PRN Anxiety 03/21/20 08/25/22 omeprazole 20 mg capsule,delayed 20 mg PO QAM 03/21/20 08/25/22 release tiotropium bromide 1.25 2 puff inhalation DAILY 03/21/20 08/25/22 mcg/actuation mist for inhalation amlodipine 2.5 mg tablet 2.5 mg PO DAILY 04/03/20 08/25/22 fluticasone propionate 50 50 mcg intranasal BID 04/03/20 08/25/22 mcg/actuation nasal spray,suspension lisinopril 10 1 tab PO DAILY 04/03/20 08/25/22 mg-hydrochlorothiazide 12.5 mg tablet metformin 500 mg tablet 500 mg PO QAM 04/03/20 08/25/22 montelukast 10 mg tablet 10 mg PO DAILY 04/03/20 08/25/22 ursodiol 250 mg tablet 750 mg PO BID 04/03/20 08/25/22 fluticasone propionate 115 2 puff inhalation BID 08/21/20 08/25/22 mcg-salmeterol 21 mcg/actuation HFA inhaler vitamin E (dl, acetate) 180 mg 180 mg PO DAILY 11/22/20 08/25/22 (400 unit) capsule darifenacin 15 mg tablet,extended 15 mg PO QAM 06/24/21 08/25/22 release 24 hr naloxone 4 mg/actuation nasal 0 spray intranasal 06/24/21 08/21/22 spray (Narcan) trazodone 150 mg tablet 300 mg PO BEDTIME 06/24/21 08/25/22 albuterol sulfate 2.5 mg/3 mL mg inhalation 10/01/21 08/21/22 (0.083 %) solution for nebulization celecoxib 200 mg capsule 0 mg PO 07/14/22 08/21/22 loratadine 10 mg tablet 10 mg PO QAM 08/13/22 08/25/22 prednisone 20 mg tablet 20 mg PO BID 08/13/22 08/25/22 Previous Rx's Medication Instructions Recorded docusate sodium 100 mg capsule 100 mg PO BID 14 days #28 caps 11/24/20 acetaminophen 500 mg tablet 500 mg PO Q6H PRN fever or pain 02/16/22 (Tylenol Extra Strength) #14 tabs morphine 15 mg tablet,extended 15 mg PO Q12H pain severe 3 days 08/27/22 release (MS Contin) #6 tabs oxycodone-acetaminophen 5 mg-325 1 tab PO Q4-6H PRN pain (scale 08/27/22 mg tablet (Percocet) score 4-6) 7 days #42 tabs calcium carbonate 600 mg-vitamin 1 tab PO QAM #30 tabs 02/02/23 D3 10 mcg (400 unit) tablet Allergies Allergy/AdvReac Type Severity Reaction Status Date / Time No Known Allergies Allergy Verified 09/01/22 09:19 [No Known Allergies*] Review of Systems Review of Systems Yes all other systems are reviewed and are negative [facility] Past Medical History [facility] Narrative: Social history: She is a former smoker and stop smoking 20 years prior. She states she smoked cigarettes for approximately 10 years. She denies alcohol use. She states that she does not use drugs but in the past she did use crack cocaine. Medical History Anxiety Asthma Bilateral primary osteoarthritis of knee Chronic kidney disease COVID-19 vaccine series completed Depression Elevated cholesterol Essential hypertension History of COVID-19 History of renal calculi Hx of hepatitis C Lumbar facet arthropathy JUSTIN (obstructive sleep apnea) Osteoarthritis of hands, bilateral Other chronic pain Other intervertebral disc displacement, lumbar region RBBB Renal stones Spondylosis of lumbar spine Type 2 diabetes mellitus with complication, without long-term current use of insulin Vitamin D deficiency Surgical History H/O abdominal hysterectomy H/O tubal ligation History of colonoscopy History of esophagogastroduodenoscopy (EGD) History of laryngoscopy History of total right knee replacement (TKR) Hx of arthroscopy of left knee Hx of dilation and curettage Hx of lithotripsy Hx of umbilical hernia repair S/P repair of ventral hernia Family History Family History Father Diabetes mellitus HTN (hypertension) Mother No problems noted. 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 Housing: House Are you a primary direct support professional caregiver to a significant other at home: No Do you presently have visiting nurse or other home services: Yes Alcohol intake: former Year quit: 1995 Comment: medicated in pacu Patient Tobacco Use Status: Former Tobacco user Quit Date: 2001 Tobacco use type: Cigarette Years Smoked: 5+ Substance Use Type: Crack/Cocaine Advance Directives: Yes Advance Directives Information Provided: Yes Advance Directives on File: No service: No Current occupational status: retired 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 Physical Exam ED Vital Signs: Vital Signs - 24 hr 02/20/23 12:45 02/20/23 15:27 Temperature 98.6 F 97.9 F Pulse Rate 67 59 Respiratory Rate 20 20 Blood Pressure 131/63 114/41 L Pulse Oximetry 97 94 Oxygen Delivery Method Room Air Room Air BMI result Body Mass Index 38.7 Exam: General: Awake, alert in no distress Head: Normocephalic, atraumatic EENT: PERRL, Lids normal, sclera normal, conjunctiva normal, nose normal , ears normal, throat without erythema or exudates Neck: Supple, no adenopathy, no trachea midline or C-spine tenderness Lung: breath sounds symmetric, no wheezing, rales or rhonchi Chest: symmetric movement, nontender Heart: regular rate and rhythm, normal S1, S2 no murmurs or rubs Abdomen: soft, moderate to severe right lower quadrant tenderness, nondistended, normal bowel sounds Back: no vertebral tenderness, no CVAT Extremities: no deformities, moves all extremities symmetrically Neuro: Awake, alert, oriented, normal speech, cranial nerves intact, moves all extremities symmetrically Psych: Pleasant, cooperative Medical Decision Making Medical Decision Making [facility] Narrative: 67-year-old female with a history of diabetes, hypertension, high cholesterol hepatitis-C, asthma, anxiety, depression, right bundle-branch block who presents emergency department for evaluation of 3 days right lower quadrant pain. Pain came on suddenly, pain is a squeezing pain which is been intermittent and 6/10 at its worst. Patient had associated shortness of breath and frequency otherwise no other associated symptoms. Patient was seen at urgent care and referred to the emergency department for evaluation. Vital signs were normal. Exam revealed localized moderate to severe right lower quadrant tenderness to Following evaluation was ordered: CBC, CMP, lipase, PT/INR, PTT, troponin, urinalysis, drug screen urine, COVID-19, influenza, RSV, EKG, CT scan of the abdomen pelvis with IV contrast The patient was treated with the following: IV insertion, normal saline x1 L, Toradol 15 mg IV, Zofran 4 mg IV. 15:42 Patient's pain improved with the above treatment. Patient has tenderness also has improved and now she has mild right lower quadrant tenderness. The patient's laboratory evaluation was unremarkable. CT scan of the abdomen pelvis did have incidental findings (the liver which the patient was aware of and 8 mm left renal stone with cyst) but no acute finding to explain the patient's abdominal pain. Patient was advised to take Tylenol ibuprofen for pain. She was given printed and verbal instructions I did tell her that appendicitis is still a possibility that for pain got worse over the next 24 hours especially that was worse in the right lower quadrant she should return to the emergency department for evaluation. Differential Diagnosis Differential Diagnoses: The differential diagnosis associated with the presentation includes Differential diagnosis includes was not limited to appendicitis, pancreatitis, diverticulitis, ischemic bowel, anemia, electrolyte abnormality Admission/Observation Consideration of admission/observation: Escalation of care including admission/observation considered Lab Data [facility] Lab Attestation statement: I reviewed the patient's lab results. My independent interpretation patient's laboratory evaluation is as follows: CBC normal. Coags normal. Bicarb elevated 30. ALT elevated 36. Lipase normal. COVID-19, influenza and RSV were negative. 02/20/23 14:03 02/20/23 14:03 Labs: Lab Results 02/20/23 02/20/23 Range/Units 14:03 15:30 WBC 5.8 (4.8-10.8) X10*3/uL RBC 4.24 (4.20-5.50) X10*6/uL Hgb 12.9 (12.0-16.0) g/dl Hct 37.2 (37.0-47.0) % MCV 87.7 (80.0-98.0) fL MCH 30.4 (27.0-33.0) pg MCHC 34.7 (31.0-35.0) g/dl RDW 12.1 (11.0-16.0) % Plt Count 235 (160-400) X10*3/uL MPV 9.3 L (9.4-12.3) fL Immature Gran % (Auto) 0.2 (0.0-0.4) % Neut % (Auto) 45.2 (45-73) % Lymph % (Auto) 40.3 H (20-40) % [place] % (Auto) 7.7 (2-11) % Eos % (Auto) 6.1 H (0-4) % Baso % (Auto) 0.5 (0-2) % Lymph # (Auto) 2.3 (1.2-4.9) X10*3/uL [place] # (Auto) 0.4 (0.1-1.2) X10*3/uL Eos # (Auto) 0.4 (0.0-0.4) X10*3/uL Baso # (Auto) 0.0 (0.0-0.2) X10*3/uL Abs Immat Gran (auto) 0.01 (0.00-0.03) X10*3/uL Absolute Neuts (auto) 2.6 (2.0-8.3) x10*3/uL Absolute Nucleated RBC 0.000 (0.0-0.012) X10*3/uL Nucleated RBC % (auto) 0.0 (0.0-0.2) /100WBC PT 11.5 (11.1-13.3) SEC INR 0.9 (0.9-1.1) APTT 32.8 (26.0-36.4) SEC Sodium 139 (135-145) mmol/L Potassium 3.6 (3.3-5.1) mmol/L Chloride 102 (96-108) mmol/L Carbon Dioxide 30 H (22-29) mmol/L Anion Gap 11 L (12-20) BUN 15 (9-16) mg/dL Creatinine 0.76 (0.5-1.4) mg/dL Estim Creat Clear Calc 67.7 Estimated GFR > 60 Random Glucose 92 (60-115) mg/dL Calcium 9.7 (8.4-10.2) mg/dL Total Bilirubin 0.4 (0.0-1.0) mg/dL AST 27 (5-31) U/L ALT 36 H (0-31) U/L Alkaline Phosphatase 82 (39-117) U/L Troponin I High Sens < 2.7 (<3.5-17.0) ng/L Total Protein 7.2 (6.5-8.0) g/dL Albumin 4.0 (3.5-5.0) g/dL Lipase 15 (8-78) U/L Urine Color Yellow Urine Appearance Clear Urine pH 7.5 (5.0-9.0) Ur Specific [place] 1.025 (1.005-1.025) Urine Protein Negative (Neg-Trace) mg/dL Urine Glucose (UA) Negative (Negative) mg/dL Urine Ketones Negative (Negative) mg/dL Urine Blood Negative (Negative) Urine Nitrite Negative (Negative) Ur Leukocyte Esterase Negative (Negative) Urine Opiates Screen POSITIVE H (Not Detect) Urine Fentanyl Screen Not Detected (Not Detect) Ur Barbiturates Screen Not Detected (Not Detect) Ur Phencyclidine Scrn Not Detected (Not Detect) Ur Amphetamines Screen Not Detected (Not Detect) U Benzodiazepines Scrn Not Detected (Not Detect) Urine Cocaine Screen Not Detected (Not Detect) U Marijuana (THC) Screen Not Detected (Not Detect) Influenza Type A (PCR) NEGATIVE (Negative) Influenza Type B (PCR) NEGATIVE (Negative) RSV RNA Qual (PCR) NEGATIVE (Negative) SARS-CoV-2 RNA (RT-PCR) NEGATIVE (Negative) Independent Interpretation I performed an independent interpretation of an: EKG Interpretation: My independent interpretation patient's 12 EKG done at 14:09 hours is as follows: Sinus bradycardia with a rate of 55, normal GA interval, prolonged QRS of 126 milliseconds normal QTC interval, right bundle-branch block, no ST segment elevation, ST segment depression, no significant T-wave abnormalities, no PACs, no PVCs. Radiology Impression Discussion of test interpretation with radiology: I have reviewed the radiologist's reading. Radiologist Impression: CT abdomen pelvis w IV con IMPRESSION: 1. No acute abnormalities. Hepatic steatosis. 2. Small renal cysts. 3. Normal appendix. 4. Status post hysterectomy. Fleischner guidelines were followed. Dictated By: Taurus Mc MD Medications Administered Discontinued Medications Generic Name Dose Route Start Last Admin Trade Name Freq PRN Reason Stop Dose Admin Sodium Chloride 1,000 mls @ 999 mls/hr 02/20/23 13:29 02/20/23 14:40 Ns IV 02/20/23 14:29 999 mls/hr .Q1H1M STA Administration Iohexol 85 ml 02/20/23 14:57 02/20/23 14:57 Iohexol 350 Mg/Ml 75 Ml Infus..Btl IV 02/20/23 14:58 85 ml ONCE ONE Administration Ketorolac Tromethamine 15 mg 02/20/23 13:42 02/20/23 14:39 Ketorolac Tromethamine 15 Mg/Ml Vial IVPUSH 02/20/23 13:43 15 mg ONCE STA Administration Ondansetron HCl 4 mg 02/20/23 13:29 02/20/23 14:39 Ondansetron Hcl 4 Mg/2 Ml Vial IVPUSH 02/20/23 13:30 4 mg ONCE ONE Administration Discharge Plan Discharge Clinical Impression: Abdominal pain Qualifiers: Abdominal location: right lower quadrant Qualified Code(s): R10.31 - Right lower quadrant pain Patient Disposition: Home, Self-Care Additional Instructions: Your laboratory evaluation was normal. The CT scan did not reveal any cause for your pain, your appendix appeared to be normal. Take ibuprofen 200 mg pills, 2 pills every 6 hours as needed for pain or fever. Take Tylenol (acetaminophen) 500 mg pills, 2 pills every 6 hours as needed for pain or fever. It is reassuring that your CT scan is normal however if your pain gets worse, especially if it is worse in the right lower part of your belly then please return to the emergency department so that he can be re-evaluated for possible appendicitis. Follow-up with your doctor in 2 days. Please return to the emergency department if your symptoms get worse or if you develop any symptoms that are concerning to you. You did have 2 incidental findings seen by the radiologist on your CT scan that are not related to your pain these are as follows: 1. hepatic steatosis or fatty liver- this is treated by the using weight. 2. You have a kidney stone in your left kidney measuring 8 mm which is not causing your pain but can sometimes cause pain in the future if the stone leaves the kidney. You also have a small cyst in your kidney Prescriptions: No Action calcium carbonate-vitamin D3 600 mg-10 mcg (400 unit) tablet 1 tab PO QAM Qty: 30 2RF vitamin E (dl, acetate) 180 mg (400 unit) capsule 180 mg PO DAILY docusate sodium 100 mg Capsule 100 mg PO BID 14 Days Qty: 28 0RF acetaminophen [Tylenol Extra Strength] 500 mg tablet 500 mg PO Q6H PRN (Reason: fever or pain) Qty: 14 0RF oxycodone-acetaminophen [Percocet] 5-325 mg tablet 1 tab PO Q4-6H PRN (Reason: pain (scale score 4-6)) 7 Days Qty: 42 0RF Rx Instructions: Partial Fill upon patient request. morphine [MS Contin] 15 mg tablet extended release 15 mg PO Q12H 3 Days Qty: 6 0RF Rx Instructions: Partial Fill upon patient request. lisinopril-hydrochlorothiazide 10-12.5 mg tablet 1 tab PO DAILY amlodipine 2.5 mg tablet 2.5 mg PO DAILY metformin 500 mg tablet 500 mg PO QAM fluticasone propionate 50 mcg/actuation spray,suspension 50 mcg intranasal BID montelukast 10 mg tablet 10 mg PO DAILY ursodiol 250 mg tablet 750 mg PO BID albuterol sulfate 90 mcg/actuation HFA aerosol inhaler 90 mcg inhalation Q4-6H PRN (Reason: Wheezing) clonazepam 0.5 mg tablet 0.5 mg PO DAILY PRN (Reason: Anxiety) atorvastatin 20 mg tablet 20 mg PO DAILY tiotropium bromide 1.25 mcg/actuation mist 2 puff inhalation DAILY omeprazole 20 mg capsule,delayed release(DR/EC) 20 mg PO QAM fluticasone propion-salmeterol 115-21 mcg/actuation HFA aerosol inhaler 2 puff inhalation BID naloxone [Narcan] 4 mg/actuation spray,non-aerosol 0 spray intranasal darifenacin 15 mg tablet extended release 24 hr 15 mg PO QAM trazodone 150 mg tablet 300 mg PO BEDTIME albuterol sulfate 2.5 mg /3 mL (0.083 %) solution for nebulization inhalation celecoxib 200 mg capsule 0 mg PO prednisone 20 mg tablet 20 mg PO BID loratadine 10 mg tablet 10 mg PO QAM Print Language: [place]
--- OUTSIDE RECORDS SUMMARY | 2023-02-20 13:16 | XMS_ITS | Continuity of Care Document ---
Author Name Unknown Organization [facility] Ne [employer] [facility] Address [address] [place] [address], [address] [place] [address]- Care Team Providers Care Conservation Scientist Name Role Phone True VILLALOBOS, Nandini Perez Primary Care Physician [phone] Encounter [facility] Date(s): 12/22/22 - 01/21/23 [facility] Ne [facility] [address] [facility], [address] [place], [place] [address] Allergies, Adverse Reactions, Alerts No Known Allergies Medications Acetaminophen 1000mgs, By Mouth, 3 times a day, PRN as needed for pain, 0 Refills, Maintenance, 12/01/12 11:40:28 Start Date: 12/01/12 Status: Ordered Advair HFA 115 mcg / 21 mcg 2 puffs, Inhalation, 2 times a day, rinse mouth and throat after use, j44.9, # 1 each, 11 Refills, Maintenance, 04/08/22 9:09:00 EST, Aerosol, [facility], 2 puffs Inhalation 2 [...] Mouth, Daily in AM, # 30 tablet, 5 Refills, Maintenance, 10/06/22 9:27:00 EDT, [facility], 147.32, cm, 04/08/22 8:19:00 EST, Height Start Date: 10/06/22 Status: Ordered Diabetic Tuss = 100 mg, [...] 9:29:34 EDT, Aerosol, Route to Pharmacy Electronically, [id number], [facility] - Start Date: 12/20/18 Status: Ordered Singulair 10 mg oral tablet 1 tablet = 10 mg, By Mouth, Daily before dinner, 0 Refills, Maintenance Start Date: 12/01/12 Status: Ordered Singulair 10 mg oral tablet 10 mg, 1, tablet, By Mouth, Daily, # 30 tablet, Refills 3, Tot. Refills 3, Maintenance, 09/11/21 11:41:00 EDT, Route to Pharmacy Electronically, [facility] Start Date: 09/11/21 Status: Ordered Singulair 10 mg oral tablet 10 mg, 1, tablet, By Mouth, Daily, j45.909, # 30 tablet, Refills 6, Tot. Refills 6, Maintenance, 07/16/22 11:38:00 EDT, Route to Pharmacy Electronically, [facility], j45.9, 147.32, cm, 04/08/22 8:19:00 EST, Height Start Date: 07/16/22 Status: Ordered Spiriva Respimat 1.25 mcg/inh inhalation aerosol 2 puffs, Inhalation, Daily, j44.9, # 1 each, 6 Refills, Maintenance, 02/27/22 19:09:00 EST, Aerosol, [facility] Start Date: 02/27/22 Status: [...] Personnel Name: Nandini Biswas NP, V Position: [facility] Outreach Member Role: PCP Address: Address: [address] [place] [address], [facility] [place] [address]- Name: Fawn Ansari RN Position: S RN Member Role: Primary Care Nurse Name: Scott Christine RN Position: [facility] RN Member Role: Primary Care Nurse Name: Twyla Jeronimo RN Position: S RN Member Role: Primary Care Nurse Care Team Related Persons Name: ENRIQUE MAN Address: home [address] [place] [address]
--- OUTSIDE RECORDS SUMMARY | 2023-02-20 13:16 | XMS_ITS | Continuity of Care Document ---
Author Name Unknown Organization [facility] Address [address] [place] [address]- Care Team Providers Care Node Js Developer Name Role Phone True VILLALOBOS, Nandini Perez Primary Care Physician [phone] Encounter [facility] ACCT R [id number] Date(s): 08/11/22 - 12/06/22 [facility] [address] [place] [address]- Attending Physician: Sary Jackson MD Admitting Physician: [...] 11 Refills, Maintenance, 04/08/22 9:09:00 EST, Aerosol, [facility], 2 puffs Inhalation 2 times [...] tablet, 5 Refills, Maintenance, 10/06/22 9:27:00 EDT, [facility], 147.32, cm, 04/08/22 8:19:00 EST, Height [...] 9:29:34 EDT, Aerosol, Route to Pharmacy Electronically, [id number], [facility] Start Date: 12/20/18 Status: Ordered Singulair 10 mg oral tablet 1 tablet = 10 mg, By Mouth, Daily before dinner, 0 Refills, Maintenance Start Date: 12/01/12 Status: Ordered Singulair 10 mg oral tablet 10 mg, 1, tablet, By Mouth, Daily, # 30 tablet, Refills 3, Tot. Refills 3, Maintenance, 09/11/21 11:41:00 EDT, Route to Pharmacy Electronically, [facility] Start Date: 09/11/21 Status: Ordered Singulair 10 mg oral tablet 10 mg, 1, tablet, By Mouth, Daily, j45.909, # 30 tablet, Refills 6, Tot. Refills 6, Maintenance, 07/16/22 11:38:00 EDT, Route to Pharmacy Electronically, [facility], j45.9, 147.32, cm, 04/08/22 8:19:00 EST, Height Start Date: 07/16/22 Status: Ordered Spiriva Respimat 1.25 mcg/inh inhalation aerosol 2 puffs, Inhalation, Daily, j44.9, # 1 each, 6 Refills, Maintenance, 02/27/22 19:09:00 EST, Aerosol, [facility] Start Date: 02/27/22 Status: Ordered traZODone [...] Personnel Name: Nandini Biswas NP, V Position: [facility] Outreach Member Role: PCP Address: Address: [address] [place] [address] [address] [facility], [facility] [place], [place] [address] Name: Nakita Luong Position: [facility] TA Member Role: Lifetime Consulting Physician Name: Scott Christine RN Position: [facility] RN Member Role: Primary Care Nurse Name: Twyla Jeronimo RN Position: [facility] RN Member Role: Primary Care Nurse Care Team Related Persons Name: ENRIQUE MAN Address: home [address] [place] [address]
--- OUTSIDE RECORDS SUMMARY | 2023-02-20 13:17 | XMS_ITS | Continuity of Care Document ---
Author Name Unknown Organization [facility] ed[facility] Address [address] [place] [address]- Care Team Providers Care Data Lead Name Role Phone True VILLALOBOS, Nandini Perez Primary Care Physician Encounter [facility] ACCT [facility] [id number] Date(s): 11/06/22 - 12/06/22 [facility] [address] [place] [address]- Attending Physician: Jose Shea Admitting Physician: Admtr, Jose Referring Physician: Admtr, Ar8 Allergies, Adverse Reactions, [...] 11 Refills, Maintenance, 04/08/22 9:09:00 EST, Aerosol, [facility], 2 puffs Inhalation 2 times [...] tablet, 5 Refills, Maintenance, 10/06/22 9:27:00 EDT, [facility], 147.32, cm, 04/08/22 8:19:00 EST, Height [...] 9:29:34 EDT, Aerosol, Route to Pharmacy Electronically, [id number], [facility] - Start Date: 12/20/18 Status: Ordered [facility]: 09/11/21 Status: Ordered Singulair 10 mg oral tablet 10 mg, 1, tablet, By Mouth, Daily, j45.909, # 30 tablet, Refills 6, Tot. Refills 6, Maintenance, 07/16/22 11:38:00 EDT, Route to Pharmacy Electronically, [facility], j45.9, 147.32, cm, 04/08/22 8:19:00 EST, Height Start Date: 07/16/22 Status: Ordered Spiriva Respimat 1.25 mcg/inh inhalation aerosol 2 puffs, Inhalation, Daily, j44.9, # 1 each, 6 Refills, Maintenance, 02/27/22 19:09:00 EST, Aerosol, [facility] Start Date: 02/27/22 Status: Ordered [...] Status Former smoker entered on: 01/23/15 Sex Radiology * Event Display: [place] Nuclear Medicine, Non- Authored Date: [id number] * Event Display: X-Ray Chest, Non- Authored Date: Patient Care team information Care Team Personnel Name: Nandini Biswas NP, V Position: [facility] Outreach Member Role: PCP Address: Address: [address] [facility] [address] [facility] [place] [address]- Name: Nakita Luong Position: [facility] TA Member Role: Lifetime Consulting Physician Name: Scott Christine RN Position: [facility] RN Member Role: Primary Care Nurse Name: Twyla Jeronimo RN Position: [facility] RN Member Role: Primary Care Nurse Care Team Related Persons Name: ENRIQUE MAN Address: home [address] [place] [address]
--- OUTSIDE RECORDS SUMMARY | 2023-02-20 13:17 | XMS_ITS | Continuity of Care Document ---
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 Assistant Name Role Phone True VILLALOBOS, Nandini Perez Primary Care Physician Encounter [facility] ACCT R [id number] Date(s): 08/09/22 - 12/07/22 [facility] [address] [place] [address]- Attending Physician: Sary Jackson MD Admitting Physician: [...] 11 Refills, Maintenance, 04/08/22 9:09:00 EST, Aerosol, [facility], 2 puffs Inhalation 2 [...] tablet, 5 Refills, Maintenance, 10/06/22 9:27:00 EDT, [facility], 147.32, cm, 04/08/22 8:19:00 EST, [...] 9:29:34 EDT, Aerosol, Route to Pharmacy Electronically, [id number], [facility] Start Date: 12/20/18 Status: Ordered Singulair 10 mg oral tablet 1 tablet = 10 mg, By Mouth, Daily before dinner, 0 Refills, Maintenance Start Date: 12/01/12 Status: Ordered Singulair 10 mg oral tablet 10 mg, 1, tablet, By Mouth, Daily, # 30 tablet, Refills 3, Tot. Refills 3, Maintenance, 09/11/21 11:41:00 EDT, Route to Pharmacy Electronically, [facility] Start Date: 09/11/21 Status: Ordered Singulair 10 mg oral tablet 10 mg, 1, tablet, By Mouth, Daily, j45.909, # 30 tablet, Refills 6, Tot. Refills 6, Maintenance, 07/16/22 11:38:00 EDT, Route to Pharmacy Electronically, [facility], j45.9, 147.32, cm, 04/08/22 8:19:00 EST, Height Start Date: 07/16/22 Status: Ordered Spiriva Respimat 1.25 mcg/inh inhalation aerosol 2 puffs, Inhalation, Daily, j44.9, # 1 each, 6 Refills, Maintenance, 02/27/22 19:09:00 EST, Aerosol, [facility] Start Date: 02/27/22 Status: [...] Personnel Name: Nandini Biswas NP, V Position: [facility] Outreach Member Role: PCP Address: Address: [address] [place] [address] [address] [facility], [facility]. [place], [place] [address] Name: Nakita Luong Position: [facility] TA Member Role: Lifetime Consulting Physician Name: Scott Christine RN Position: [facility] RN Member Role: Primary Care Nurse Name: Twyla Jeronimo RN Position: [facility] RN Member Role: Primary Care Nurse Care Team Related Persons Name: ENRIQUE MAN Address: home [address] [place] [address]
--- OUTSIDE RECORDS SUMMARY | 2023-02-20 13:18 | XMS_ITS | Patient Health Record ---
Author Name Unknown Organization [facility] Address [address] [place] [address] Care Team Providers Care Die Try Out Worker Name Role Phone True VILLALOBOS, Nandini Primary Care Provider Jason Mcnulty Unavailable [phone] RESULTS Component Value Reference Range Notes Complete Blood Count Auto Di ff Reviewed date:06/02/2022 07:19:11 PM Interpretation: Performing Lab:[facility], [address] [place] [phone] Notes/Report: White Blood Count 6.0 4.8-10.8 X10*3/uL Red Blood Count 4.39 4.20-5.50 X10*6/uL Hemoglobin 13.3 12.0-16.0 g/dl Hematocrit 39.2 37.0-47.0 % Mean Corpuscular Volume 89.3 80.0-98.0 fL Mean Corpuscular Hemoglobin 30.3 27.0-33.0 pg Mean Corpuscular HGB Conc 33.9 31.0-35.0 g/dl Red Cell Distribution Width 11.9 11.0-16.0 % Platelet Count 302 160-400 X10*3/uL Mean Platelet Volume 9.3 9.4-12.3 fL Neutrophils Percent Auto 45.4 45-73 % Imm Gran Pct Auto 0.3 0.0-0.4 % Lymphocytes Percent Auto 37.5 20-40 % Monocytes Percent Auto 5.2 2-11 % Eosinophils Percent Auto 10.9 0-4 % Basophils Percent Auto 0.7 0-2 % NRBC Pct Auto 0.0 0.0-0.2 /100WBC Neutrophils Absolute Auto 2.7 2.0-8.3 x10*3/u L Imm Gran Abs Auto 0.02 0.00-0.03 X10*3/uL Lymphocytes Absolute Auto 2.2 1.2-4.9 X10*3/u L Monocytes Absolute Auto 0.3 0.1-1.2 X10*3/uL Eosinophils Absolute Auto 0.7 0.0-0.4 X10*3/u L Basophils Absolute Auto 0.0 0.0-0.2 X10*3/uL NRBC Abs Auto 0.000 0.0-0.012 X10*3/uL Prothrombin Time INR Reviewed date:03/31/2022 10:34:05 PM Interpretation: Performing Lab:[facility], [address] [place] [phone] Notes/Report: Prothrombin Time 11.4 10.0-13.1 SEC INTERNATIONAL NORM RATIO 1.0 0.9-1.1 INTERNATIONAL NORMALIZED RATIO (INR) REFERENCE RANGES Reference Range For patients not on anticoagulant therapy: 0.9 - 1.1 INR ranges for oral anticoagulant therapy: For prevention and treatment of venous thrombosis and pulmonary embolism: 2.0 - 3.0 For acute myocardial infarction with aspirin therapy: 2.0 - 3.0 For acute myocardial infarction without aspirin therapy: 3.0 - 4.0 For patients with mechanical prosthetic heart valves: 2.5 - 3.5 Liver Panel Reviewed date:03/31/2022 10:34:14 PM Interpretation: Performing Lab:[facility], [address] [place] [phone] Notes/Report: Bilirubin Total 0.4 0.0-1.0 mg/dL Bilirubin Direct 0.2 0.0-0.5 mg/dL Aspartate Amino Transferase 20 5-31 U/L Alanine Aminotransferase 24 0-31 U/L Total Protein 7.2 6.5-8.0 g/dL Albumin Level 4.1 3.5-5.0 g/dL Alkaline Phosphatase 83 39-117 U/L Alpha Fetoprotein Reviewed date:04/02/2022 05:25:38 PM Interpretation: Performing Lab:[facility], [address] [place] [phone] Notes/Report: Alpha Fetoprotein 1.7 Reference Range: <6.1 The use of AFP as a tumor marker in females is not recommended. This test was performed using the Velasuq[employer] [place] chemiluminescent method. Values obtained from different assay methods cannot be used interchangeably. AFP levels, regardless of value, should not be interpreted as absolute evidence of the presence or absence of disease. THIS TEST WAS PERFORMED AT: [facility] [address] [place] [address] NIMCO BETH MD REASON FOR REFERRAL No Information MEDICATIONS Medication SIG (Take, Route, Frequency, Duration) Notes Start Date End Date Status Ursodiol 250 MG 3 Orally Twice a day for 30 day(s) 06/02/2022 Active Omeprazole 20 MG 1 Orally Every morni ng for 30 day(s) 07/02/2022 Active SudoGest 30 MG Oral for 30 Act laura KlonoPIN 0.5 MG 1 tablet Orally Twic e a day Active Omeprazole 20 MG 1 Orally QAM for 30 day(s) 2021 Active clonazePAM 0.5 MG Oral for 30 Active glipiZIDE XL 5mg Act laura Singulair 10mg Activ e Vitamin D 1000unit A ctive Flovent HFA 12mg Act laura Omeprazole 20 MG 1 Orally Once a day for 30 day(s) 09/01/2019 Active HYDROcodone-Acetaminophen 5-500 MG 1 capsule as needed Orally every 6 hrs Active Ursodiol 250 MG 3 Orally Twice a day for 30 day(s) 07/11/2020 Active Calcium 600 + D 600mg Active Ursodiol 250 MG 3 Orally BID 08/13/2017 Active ProAir HFA 108 (90 Base) MCG/ACT 2 puffs as needed Inhalation every 4 hrs Active Ursodiol 250 MG 3 Orally Twice a day for 30 day(s) 07/01/2021 Active oxyCODONE HCl 5 MG/5ML 5 ml as needed Or ally every 6 hrs Active Omeprazole 20 MG 1 Orally Once a day for 30 day(s) 08/07/2020 Active metFORMIN HCl 500mg Active traZODone HCl 150 MG 1 tablet at bedtime Orally Once a day Active IMMUNIZATIONS Vaccine Route Administration Date Status Comme nts Influenza Unknown 12/21/2017 Administered Influenza Unknown 01/21/2019 Administered Influenza Unknown 11/22/2019 Administered Influenza Unknown 11/21/2021 Administered SOCIAL HISTORY Sex Assigned At : Social History Observation Description Sex Assigned At Unknown Alcohol Screen Question Answer Notes Did you have a drink contain ing alcohol in the past year? Yes How often did you have a dri nk containing alcohol in the past year? Monthly or less (1 point) How many drinks did you have on a typical day when you were drinking in the past year? 1 or 2 drinks (0 point) How often did you have 6 or more drinks on one occasion in the past year? Never (0 point) Points 1 Interpretation Negative PROBLEMS Problem Type ICD Code Onset Dates Problem Status W/U Status Risk SNOMED Code Notes Problem Encounter for screening for malignant neoplasm of colon (Z12.11) Active confirmed 837008380 Problem Other cirrhosis of liver (K74.69) Active confirmed 78528841 Problem Fatty liver (K76.0) Active confirmed 013115725 Problem History of hepatitis C (Z86.19) Active confirmed 22681327104131 Problem Chronic gastritis without bleeding, unspecified gastritis type (K29.50) Active confirmed 1185554 Encounters Encounter Location Date Provider Diagnosis [facility] [address] [place] [phone] 02/25/2022 Jason Lora Fatty liver K76.0 ; Other cirrhosis of liver K74.69 and History of hepatitis C Z86.19 [facility] [address] [place] [phone] 06/02/2022 Jason Lora [facility] [address] [address] 07/02/2022 Jason Lora ASSESSMENTS Encounter Date Diagnosis Assessment Notes Treatment Notes Treatment Clinical Notes 02/25/2022 Other cirrhosis of liver (ICD-10 - K74.69) 02/25/2022 Fatty liver (ICD-10 - K76.0) 02/25/2022 History of hepatitis C (ICD-10 - Z86.19) PLAN OF TREATMENT Pending Test Test Name Order Date LIVER PROFILE 02/25/2022 LIVER PROFILE 08/27/2012 LIVER PROFILE 09/15/2013 LIVER PROFILE 08/22/2021 LIVER PROFILE 07/03/2020 CBC w DIFF 02/25/2022 CBC w DIFF 07/03/2020 PROTHROMBIN TIME (PT, INR) 07/03/2020 ALPHA-FETOPROTEIN,TUMOR MARKER 1 ALPHA-FETOPROTEIN,TUMOR MARKER 3 ALPHA-FETOPROTEIN,TUMOR MARKER 2 ALPHA-FETOPROTEIN,TUMOR MARKER 4 ALPHA-FETOPROTEIN,TUMOR MARKER 2 ALPHA-FETOPROTEIN,TUMOR MARKER 7 US ABD 03/12/2017 US ABD 07/03/2020 Prothrombin Time INR 02/25/2022 Future Test Test Name Order Date UPPER GI ENDOSCOPY 03/05/2018 COLONOSCOPY 03/05/2018 Next Appt Details Provider Name:Jason Lora , 02/26/2023 09:00:00 AM, [address], [address], [place], [address], MEDICAL (GENERAL) HISTORY Medical History History ICD Code Fatty liver--liver biopsy in 01/2001 with bridging fibrosis, steatohepatitis, and piecemeal necrosis Hepatitis C-Hep C Genotype 2 b, treated successfully in 2002 with 6 months of pegylated interferon and ribavirin, with nondetectable HepC RNA in 2015---Gr 3/4, StageIII/IV on biopsy in 2000(as above)--she uses ursodiol 750 mg b.i.d. Asthma Anxiety Denies OR,CVA,renal disease Kidney stones Negative colonoscopy with Dr. Rodriguez in [place] Urinary incontinence Neg. screening colonoscopy in 04/2018 EGD in 04/2018 with erosive g astritis but neg. Hpylori, no varices, small to mod-sized hiatal hernia Surgical History Surgery Date(Month/Year) Tubal ligation Umbilical hernia surgery 03/2013-Dr. Annel narayan Vocal cord polyps Bladder suspension by Dr Avelino lama in [place] for urinary incontinence on 09/19/13. Veins in her left leg Right knee replacement with Dr. Solorzano 2020
--- NOTE | 2023-02-20 13:30 | ECG_ITS ---
Test Reason : ABD PAIN Blood Pressure : / mmHG Vent. Rate : 055 BPM Atrial Rate : 055 BPM P-R Int : 156 ms QRS Dur : 126 ms QT Int : 484 ms P-R-T Axes : 020 -06 024 degrees QTc Int : 463 ms Sinus bradycardia Right bundle branch block Abnormal ECG When compared with ECG of 16-FEB-2022 11:56, Nonspecific T wave abnormality, improved in Anterior leads Referred By: Avel Gooden Electronically Signed By:CHANELL DEXTER MD
[2023-02-20 14:07] LABS: MANUAL DIFF FLAG NO
[2023-02-20 14:08] LABS: Basophils Percent Auto 0.5 % (0-2); Eosinophils Absolute Auto 0.4 X10*3/uL (0.0-0.4); Eosinophils Percent Auto 6.1 % (0-4); Hematocrit 37.2 % (37.0-47.0); Hemoglobin 12.9 g/dl (12.0-16.0); Imm Gran Abs Auto 0.01 X10*3/uL (0.00-0.03); Imm Gran Pct Auto 0.2 % (0.0-0.4); Lymphocytes Absolute Auto 2.3 X10*3/uL (1.2-4.9); Lymphocytes Percent Auto 40.3 % (20-40); Mean Corpuscular HGB Conc 34.7 g/dl (31.0-35.0); Mean Corpuscular Hemoglobin 30.4 pg (27.0-33.0); Mean Corpuscular Volume 87.7 fL (80.0-98.0); Mean Platelet Volume 9.3 fL (9.4-12.3); Monocytes Absolute Auto 0.4 X10*3/uL (0.1-1.2); Monocytes Percent Auto 7.7 % (2-11); Neutrophils Absolute Auto 2.6 x10*3/uL (2.0-8.3); Neutrophils Percent Auto 45.2 % (45-73); Platelet Count 235 X10*3/uL (160-400); Red Blood Count 4.24 X10*6/uL (4.20-5.50); Red Cell Distribution Width 12.1 % (11.0-16.0); White Blood Count 5.8 X10*3/uL (4.8-10.8)
[2023-02-20 14:15] LABS: INTERNATIONAL NORM RATIO 0.9 (0.9-1.1); Prothrombin Time 11.5 SEC (11.1-13.3)
[2023-02-20 14:18] LABS: Partial Thromboplastin Time 32.8 SEC (26.0-36.4)
[2023-02-20 14:27] LABS: Alanine Aminotransferase 36 U/L (0-31); Alkaline Phosphatase 82 U/L (39-117); Anion Gap 11 (12-20); Aspartate Amino Transferase 27 U/L (5-31); Bilirubin Total 0.4 mg/dL (0.0-1.0); Blood Urea Nitrogen 15 mg/dL (9-16); Calcium 9.7 mg/dL (8.4-10.2); Carbon Dioxide 30 mmol/L (22-29); Chloride 102 mmol/L (96-108); Creatinine Clr Calc Pharmacy 67.7; Estimated Glomerular Filt Rate > 60; Glucose Random 92 mg/dL (60-115); Lipase 15 U/L (8-78); Potassium 3.6 mmol/L (3.3-5.1); Sodium 139 mmol/L (135-145); Total Protein 7.2 g/dL (6.5-8.0)
[2023-02-20 14:38] LABS: Troponin-I High Sensitivity < 2.7 ng/L (<3.5-17.0)
[2023-02-20] MEDS: Ketorolac Tromethamine 15 MG/ML VIAL IVPUSH (14:39)
[2023-02-20] MEDS: ondansetron HCL 4 MG/2 ML VIAL IVPUSH (14:39)
[2023-02-20] MEDS: 0.9 % Sodium Chloride 1,000 ML 999 ML IV (14:40)
[2023-02-20 14:45] LABS: Influenza A PCR NEGATIVE (Negative); Influenza B PCR NEGATIVE (Negative); Resp Syncy Virus RNA Qual PCR NEGATIVE (Negative); SARS COV2 PCR INHOUSE NEGATIVE (Negative)
[2023-02-20] MEDS: iohexoL 350 MG/ML 75 ML INFUS..BTL 85 ML IV (14:57)
[2023-02-20 15:27] VITALS: BP 114/41; PULSE 59; RESP 20; TEMP 36.6; O2SAT 94
[2023-02-20 15:38] LABS: Appearance Urine Clear; Color Urine Yellow; Glucose Urine UA Negative (Negative); Leukocyte Esterase Urine Negative (Negative); Nitrite Urine Negative (Negative); PH 7.5 (5.0-9.0); Specific Gravity - Urine 1.025 (1.005-1.025); Urine Blood Negative (Negative); Urine Ketones Negative (Negative); Urine Protein Negative (Neg-Trace)
[2023-02-20 15:46] LABS: Amphetamine Screen Urine Not Detected (Not Detect); Barbiturates, Urine Not Detected (Not Detect); Benzodiazepines Screen Urine Not Detected (Not Detect); Cannabinoid Screen Urine Not Detected (Not Detect); Cocaine Screen Urine Not Detected (Not Detect); Fentanyl, urine Not Detected (Not Detect); Opiate Screen Urine POSITIVE (Not Detect); Phencyclidine Screen Urine Not Detected (Not Detect)
== END 2023-02-20 16:33 | disposition home or self-care (01) ==
PROVIDERS: Emergency Provider Emergency Medicine Emergency Medical Services; PCP Registered Nurse
DX: R10.31 Right lower quadrant pain (principal); R11.2 Nausea with vomiting, unspecified; R00.1 Bradycardia, unspecified; Z87.891 Personal history of nicotine dependence; Z20.822 Contact with and (suspected) exposure to COVID-19; Z20.828 Contact with and (suspected) exposure to other viral communicable diseases; Z79.899 Other long term (current) drug therapy
CPT/HCPCS: 0241U; 36415; 74177; 80053; 80307; 81003; 83690; 84484; 85025; 85610; 85730; 93005; 96361; 96374; 96375; 99284; 99285; J1885; J2405; Q9967

== ENCOUNTER → 2023-02-20 13:30 | Outpatient (BNV) | payer MEDICARE, MEDICAID, SELFPAY | PROVIDERS: Emergency Provider Emergency Medicine Emergency Medical Services; PCP Registered Nurse; Visit Provider Internal Medicine Cardiovascular Disease | DX: R00.1 Bradycardia, unspecified (principal); R94.31 Abnormal electrocardiogram [ECG] [EKG] | CPT/HCPCS: 93010 ==

== ENCOUNTER 2023-02-24 09:32 | Outpatient (REF) | payer MEDICARE, MEDICAID, SELFPAY | END 2023-02-24 09:33 | disposition home or self-care (01) | LOC: HO.LAB 09:32 | PROVIDERS: Visit Provider Internal Medicine Nephrology | DX: Z13.89 Encounter for screening for other disorder (principal) ==

== ENCOUNTER 2023-02-26 10:09 | Outpatient (REF) | payer MEDICARE, MEDICAID, SELFPAY ==
[2023-02-26 11:22] LABS: Total Volume 24 Hour Urine 1775 mL
[2023-02-26 11:47] LABS: Total Volume 24 Hour Urine 1775 mL
[2023-02-26 12:01] LABS: Creatinine, mg/dL 110.02; Sodium 24 Hr Urine 221.9 mmol/Day (40-220)
[2023-03-09 14:09] LABS: Cystine 24Hr Urine - Cystine 72 umol/24 h (24-184); Cystine 24Hr Urine - Total Vol 1775 mL
== END 2023-02-26 10:10 | disposition home or self-care (01) ==
LOC: HO.LNP 10:09
PROVIDERS: Visit Provider Internal Medicine Nephrology
DX: E11.21 Type 2 diabetes mellitus with diabetic nephropathy (principal); E11.22 Type 2 diabetes mellitus with diabetic chronic kidney disease; N18.31 Chronic kidney disease, stage 3a; N20.0 Calculus of kidney
CPT/HCPCS: 82131; 82570; 84300

== ENCOUNTER 2023-04-13 11:08 | Outpatient (REF) | payer OTHER, SELFPAY ==
[2023-04-13 11:59] LABS: INTERNATIONAL NORM RATIO 0.9 (0.9-1.1); Prothrombin Time 11.3 SEC (11.1-13.3)
[2023-04-15 08:13] LABS: Alpha Fetoprotein 1.8 ng/mL
== END 2023-04-13 11:09 | disposition home or self-care (01) ==
LOC: HO.LAB 11:08
PROVIDERS: PCP Registered Nurse; Visit Provider Internal Medicine
DX: K76.0 Fatty (change of) liver, not elsewhere classified (principal); K74.69 Other cirrhosis of liver; Z86.19 Personal history of other infectious and parasitic diseases
CPT/HCPCS: 36415; 82105; 85610

== ENCOUNTER 2023-05-04 08:29 | Outpatient (REF) | payer OTHER, SELFPAY ==
[2023-05-04 12:59] LABS: Cholesterol 128 mg/dL (<200); HDL Cholesterol 46 mg/dL (>40); LDL Cholesterol Calculated 59 mg/dL (<100); Triglycerides 118 mg/dL (<150)
== END 2023-05-04 08:30 | disposition home or self-care (01) ==
LOC: HO.HHCL 08:29
PROVIDERS: Visit Provider Registered Nurse
DX: E11.22 Type 2 diabetes mellitus with diabetic chronic kidney disease (principal); N18.30 Chronic kidney disease, stage 3 unspecified
CPT/HCPCS: 36415; 80061

== ENCOUNTER 2023-06-16 09:28 | Outpatient (REF) | payer OTHER, SELFPAY ==
--- NOTE | ~2023-06-16 | MM_ITS ---
EXAMINATION: BONE DENSITOMETRY CLINICAL INDICATION: Menopausal state. COMPARISON: Baseline BD dated 09/07/2009. TECHNIQUE: Using a [employer] DXA System (software version: 13.1) manufactured by [employer], dual-energy x-ray absorptiometry was performed of the lumbar spine and left hip. The images are of good technical quality. Summary results are attached. FINDINGS: LEFT FEMUR, NECK: Current: BMD 0.853 g/cm2, Z-score -0.3, T-score -1.3, osteopenia. Baseline: BMD 0.993 g/cm2. LEFT FEMUR, TOTAL: Current: BMD 1.003 g/cm2, Z-score 0.7, T-score 0.0, normal, 13.5% decrease from baseline (<5% change is not significant. Baseline: BMD 1.160 g/cm2. AP SPINE L1-L4: Current: BMD 0.995 g/cm2, Z-score -0.6, T-score -1.5, osteopenia, 12.9% decrease from baseline (<5% change is not significant). Baseline: BMD 1.142 g/cm2. IDENTIFIED RISK FACTORS: Early menopause, secondary osteoporosis, hysterectomy, bilateral oophorectomy, kidney disease, thiazide. HISTORY OF FRACTURE: None listed. MEDICATIONS: Calcium supplements or multivitamin, vitamin D. MM/XR DEXA axial skeleton IMPRESSION: 1. DIAGNOSIS: Osteopenia based on the lowest T-score value of -1.5 in the lumbar spine applying World Health Organization criteria. 2. 10-YEAR FRACTURE RISK PREDICTION, FRAX: Major osteoporotic fracture (clinical spine, forearm, hip or shoulder) 4.2%. Hip fracture 0.4%. 3. Recommendations: NOF guidelines recommend consideration for treatment in postmenopausal women and men age 50 and older presenting with the following: -A hip or vertebral (clinical or morphometric) fracture. -T-score less than or equal to -2.5 at the femoral neck or spine after appropriate evaluation to exclude secondary causes. -Low bone mass at the hip or spine and a 10-year fracture probability by FRAX of greater than or equal to 3% for hip fracture or greater than or equal to 20% for major osteoporotic fracture based on the [place] adapted WHO algorithm. 4. Other Recommendations: All treatment decisions require clinical judgment and consideration of individual patient factors, including patient preferences, comorbidities, previous drug use, risk factors not captured in the FRAX model (e.g. frailty, falls, vitamin D deficiency, increased bone turnover, interval significant decline in bone density) and possible under or overestimation of fracture risk by FRAX. Additional medical evaluation for secondary cause of low bone mineral density may be appropriate. FUTURE SCAN RECOMMENDATION: People with diagnosed cases of osteoporosis or at high risk for fracture should have regular bone mineral density tests. For patients eligible for Medicare, routine testing is allowed once every 2 years. The testing frequency can be to one year for patients who have rapidly progressing disease, those who are receiving or discontinuing medical therapy to restore bone mass, or have additional risk factors.
== END 2023-06-16 09:29 | disposition home or self-care (01) ==
LOC: HO.MAMMO 09:28
PROVIDERS: PCP Registered Nurse; Visit Provider Registered Nurse
DX: Z12.31 Encounter for screening mammogram for malignant neoplasm of breast (principal); Z13.820 Encounter for screening for osteoporosis; Z78.0 Asymptomatic menopausal state
CPT/HCPCS: 77063; 77067; 77080

== ENCOUNTER → 2023-06-16 10:00 | Outpatient (BNV) | payer OTHER, SELFPAY | PROVIDERS: PCP Registered Nurse; Visit Provider Radiology Diagnostic Radiology | DX: Z12.31 Encounter for screening mammogram for malignant neoplasm of breast (principal) | CPT/HCPCS: 77063; 77067 ==

== ENCOUNTER 2023-07-29 08:58 | Outpatient (AMB) | payer OTHER, SELFPAY ==
--- NOTE | 2023-07-29 09:11 | A.OFFVIS_ITS ---
Vital Signs 07/29/23 09:25 Height 4 ft 10 in Weight 187 lb 4 oz BMI 39.1 BP 116/68 Blood Pressure Location Lt brachial Position Sitting Respiration 14 Pulse 66 Pulse Source Pulse Oximeter Pulse Oximetry (%) 99 Oxygen Delivery Method Room Air Intake Visit Reasons: Pain in Knee Intake Note: Patient was accompanied by daughter Krupa. She comes in for knee pain was last seen January 2022. Reports pain 4/10. Allergies No Known Allergies [No Known Allergies*] Allergy (Verified 07/29/23 09:31) HPI Comments Details: Ludivina is very pleasant pleasant 65 years old Arabic speaking only female who presents today with chronic right knee pain s/p right total knee replacement on 11/21/20. Multiple procedures were done to treat the pain of this patient. She went for total knee replacement, she had genicular nerve blocks with promising results however of the radiofrequency ablation resulted in pain aggravation and arm pain improvement. When patient came to me after radiofrequency ablation I offered her to consider [employer] spinal cord stimulator to treat the pain of her knee. Patient today in my office expressing agreement to go for the [employer] trial of spinal cord stimulator. I will schedule her for the trial of [employer] spinal cord stimulator as soon as her psychologist or psychiatrist will give us a clearance in standpoint of psychological evaluation. If her psychologist or psychiatrist will not be able to do that we will send her for evaluation with [facility] psychology. [facility] Medical History Anxiety Asthma Bilateral primary osteoarthritis of knee Chronic kidney disease COVID-19 vaccine series completed Depression Elevated cholesterol Essential hypertension History of COVID-19 History of renal calculi Hx of hepatitis C Lumbar facet arthropathy JUSTIN (obstructive sleep apnea) Osteoarthritis of hands, bilateral Other chronic pain Other intervertebral disc displacement, lumbar region RBBB Renal stones Spondylosis of lumbar spine Type 2 diabetes mellitus with complication, without long-term current use of insulin Vitamin D deficiency Surgical History H/O abdominal hysterectomy H/O tubal ligation History of colonoscopy History of esophagogastroduodenoscopy (EGD) History of laryngoscopy History of total right knee replacement (TKR) Hx of arthroscopy of left knee Hx of dilation and curettage Hx of lithotripsy Hx of umbilical hernia repair S/P repair of ventral hernia Family History Father Diabetes mellitus HTN (hypertension) Mother No problems noted. 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 Review of Systems Const All systems reviewed & are unremarkable except as noted in HPI and below ENT Reports Normal hearing present Neuro Reports Normal hearing present, Denies confusion and Denies Sensory deficit (Neuro) Psych Denies confusion Physical Exam Vital Signs: Last Vital Signs Pulse 66 07/29/23 09:25 Resp 14 07/29/23 09:25 BP 116/68 07/29/23 09:25 Pulse Ox 99 07/29/23 09:25 Oxygen Delivery Method Room Air 07/29/23 09:25 BMI result Body Mass Index 39.1 Const General: No confusion Nutritional Appearance: obese Orientation/consciousness: No confusion Limitations: language barrier and ambulation with cane HEENT Head: Yes normal to inspection, Yes normocephalic and Yes atraumatic Ears: hearing grossly normal bilaterally Face and sinus: Yes normal facial exam and Yes face symmetric Eyes General: appearance normal, both eyes and all related structures EOM: EOMs intact bilaterally Neck Neck: Yes normal visual inspection, Yes full ROM and Yes no lymphadenopathy Resp Effort & Inspection: normal respiratory effort, able to speak in complete sen tences, no audible wheezes, no cough, no respiratory distress and symmetric chest movement Cardio Jugular venous distension: no JVD Bruits: no carotid bruits Peripheral pulses: Peripheral pulses 2+ throughout GI Inspection: Yes normal to inspection, No distended and Yes obesity General: Yes no CVA tenderness Back/Spine/Pelvis Back: no CVA tenderness Cervical Spine: cervical ROM normal and No Cervical spine tenderness Thoracic/Lumbar Spine: thoracic and lumbar spine normal to inspection, thoraco-lumbar ROM normal, paraspinal muscle tenderness, No thoracic spinal tenderness and No lumbar spinal tenderness Skin General skin exam: no rashes or lesions noted Neuro General: No confusion Cranial nerves: Yes Normal hearing present Gait exam (Neuro): Antalgic gait present and Assistive device used Sensory Exam: No Sensory deficit (Neuro) Extrem Other: Right knee: Tender to palpation over medial joint line tenderness and patella. Normal scarring s/p TKA 11/2020. No redness, warmth, deformity, locking, or effusion. Pale discoloration of the right lower extremity compared to the left. Normal pulses bilaterally. There is significant atrophy of the lower leg muscles compared to the left. General: Yes capillary refill normal, Yes no clubbing, cyanosis or edema and Yes no calf tenderness Left lower extremity: knee Details: tenderness Location: of the patella, of the medial joint line and of the infrapatellar area and normal ROM; no swelling Psych Appearance: grossly normal Mental Status: mental status grossly normal Speech and movement: Normal speech and movement present and Clear speech present Affect: normal affect and Anxious affect present Attitude: cooperative Thought process: Normal thought process present Thought content: Normal thought content present Insight: Good insight present (Psych) Judgement: Good judgement present (Psych) Assessment & Plan Assessment & Plan (1) Chronic pain syndrome: Code(s): G89.4 - Chronic pain syndrome Category: Medical (2) Right knee pain: Code(s): M25.561 - Pain in right knee Category: Medical (3) Primary osteoarthritis of right knee: Code(s): M17.11 - Unilateral primary osteoarthritis, right knee Category: Medical (4) Status post total right knee replacement: Code(s): Z96.651 - Presence of right artificial knee joint Category: Surgical (5) Localized osteoarthritis of left knee: Code(s): M17.12 - Unilateral primary osteoarthritis, left knee Category: Medical Plan This patient failed conservative as well as interventional pain management to alleviate pain in the left knee. It looks like that she is developing Complex regional pain syndrome of the left lower extremity at this time. She has pale discoloration of the skin of the right lower leg below the level of the knee, she also reports that muscles are weaker and thinner on the right lower extremity where she had total knee replacement. With the diagnosis of Complex regional pain syndrome I will schedule her of for trial of [employer] spinal cord stimulator as soon as the patient will be cleared for psychological evaluation with her psychiatrist. Otherwise she needs to go for psychological evaluation with [facility] psychology. Anticoagulation: Patient is not on anticoagulation. Justification for interventional therapy: ? Patient with average pain > 6/10 ? Patient has exhausted conservative therapy including NSAIDs, physical therapy, steroid injections ? Previous diagnostic injection provided 100% pain relief for more than 2 days The risks, consequences, alternatives, and benefits of various treatment options were discussed with the patient in great detail, including conservative management, injections and procedures. Patient Instructions: I here by testify that I spent 30 minutes in conversation with this patient as well as evaluating her prior records and organizing this note. shift leader Kiersten who is a certified manager lvn helped us in interpreting the conversation in Arabic. Coding Level of Care Code Est Pt Level 4 (06654) Diagnoses Chronic pain syndrome G89.4 Right knee pain M25.561 Primary osteoarthritis of right knee M17.11 Status post total right knee replacement Z96.651 Localized osteoarthritis of left knee M17.12
[2023-07-29 09:25] VITALS: BP 116/68; PULSE 66; RESP 14; O2SAT 99; BMI 39.1
== END 2023-07-29 09:52 | disposition home or self-care (01) ==
PROVIDERS: PCP Registered Nurse; Visit Provider Anesthesiology
DX: G89.4 Chronic pain syndrome (principal); M25.561 Pain in right knee; M17.0 Bilateral primary osteoarthritis of knee; Z96.651 Presence of right artificial knee joint
CPT/HCPCS: 99214

== ENCOUNTER → 2023-07-29 08:58 | Outpatient (BNVA) | payer OTHER, SELFPAY | PROVIDERS: PCP Registered Nurse; Visit Provider Anesthesiology | DX: M25.561 Pain in right knee (principal); M17.11 Unilateral primary osteoarthritis, right knee; M17.12 Unilateral primary osteoarthritis, left knee; G89.4 Chronic pain syndrome; Z96.651 Presence of right artificial knee joint | CPT/HCPCS: 99212 ==

== ENCOUNTER 2023-08-26 17:37 | Emergency (ER) | payer OTHER, SELFPAY ==
--- NOTE | ~2023-08-26 | XR_ITS ---
EXAMINATION: XR KNEE, LEFT CLINICAL INFORMATION: Pain COMPARISON: Previous x-ray from 2022 TECHNIQUE: Two views of the left knee. FINDINGS: Bone alignment is normal. No fracture or dislocation. There is joint space narrowing and small osteophytes at the medial femoral tibial joint. There are small osteophytes at the patellofemoral joint. There is an osteophyte at the quadriceps tendon insertion to the patella. There is no joint effusion. XR/XR knee LT 2V IMPRESSION: Degenerative changes.
[2023-08-26 18:00] VITALS: BP 147/73; PULSE 56; RESP 16; O2SAT 97; BMI 39.0
[2023-08-26 18:06] VITALS: BP 140/90; PULSE 61; O2SAT 98
[2023-08-26 20:14] VITALS: BP 120/56; PULSE 78; RESP 16; TEMP 36.4; O2SAT 94
--- NOTE | 2023-08-26 20:20 | ED.LOWEXIN ---
HPI - Extremity Injury (Lower) General Chief Complaint: Extremity Injury, Lower Stated Complaint: 9/10 L knee pain Time Seen by Provider: 08/26/23 20:19 Source: patient Mode of arrival: ambulatory Limitations: language barrier (Macanese speaking only, salvage mechanic used.) History of Present Illness ED Provider: Dr. Avel Gooden HPI Narrative: 68-year-old female with a history of osteoarthritis of the left knee who presents emergency department for evaluation of left knee pain x3 days. The patient denies any recent injury. She states she has chronic pain in her left knee and takes [place] 5/325 twice a day and Tylenol twice a day with no relief of her pain. She states the pain is a constant, twisting like pain which is 10/10. She has not noticed any redness or swelling of the knee. She denied fever, chills, fatigue, weakness. Patient states that she had a right total knee replacement and continues to have pain in the right knee. She states she was supposed to have a left total knee replacement but decided not to have the procedure given the fact that her right total knee did not relieve her pain. She states that she now has an appointment with Orthopedics on September 11 2023 for re-evaluation for possible surgical treatment. Related Data Home Medications ?Medication ?Instructions ?Recorded ?Confirmed albuterol sulfate 90 mcg/actuation 90 mcg inhalation Q4-6H PRN 03/21/20 08/25/22 aerosol inhaler Wheezing atorvastatin 20 mg tablet 20 mg PO DAILY 03/21/20 08/25/22 clonazepam 0.5 mg tablet 0.5 mg PO DAILY PRN Anxiety 03/21/20 08/25/22 omeprazole 20 mg capsule,delayed 20 mg PO QAM 03/21/20 08/25/22 release tiotropium bromide 1.25 2 puff inhalation DAILY 03/21/20 08/25/22 mcg/actuation mist for inhalation amlodipine 2.5 mg tablet 2.5 mg PO DAILY 04/03/20 08/25/22 fluticasone propionate 50 50 mcg intranasal BID 04/03/20 08/25/22 mcg/actuation nasal spray,suspension lisinopril 10 1 tab PO DAILY 04/03/20 08/25/22 mg-hydrochlorothiazide 12.5 mg tablet metformin 500 mg tablet 500 mg PO QAM 04/03/20 08/25/22 montelukast 10 mg tablet 10 mg PO DAILY 04/03/20 08/25/22 ursodiol 250 mg tablet 750 mg PO BID 04/03/20 08/25/22 fluticasone propionate 115 2 puff inhalation BID 08/21/20 08/25/22 mcg-salmeterol 21 mcg/actuation HFA inhaler vitamin E (dl, acetate) 180 mg 180 mg PO DAILY 11/22/20 08/25/22 (400 unit) capsule darifenacin 15 mg tablet,extended 15 mg PO QAM 06/24/21 08/25/22 release 24 hr naloxone 4 mg/actuation nasal 0 spray intranasal 06/24/21 08/21/22 spray (Narcan) trazodone 150 mg tablet 300 mg PO BEDTIME 06/24/21 08/25/22 albuterol sulfate 2.5 mg/3 mL mg inhalation 10/01/21 08/21/22 (0.083 %) solution for nebulization celecoxib 200 mg capsule 0 mg PO 07/14/22 08/21/22 loratadine 10 mg tablet 10 mg PO QAM 08/13/22 08/25/22 prednisone 20 mg tablet 20 mg PO BID 08/13/22 08/25/22 Previous Rx's ?Medication ?Instructions ?Recorded docusate sodium 100 mg capsule 100 mg PO BID 14 days #28 caps 11/24/20 acetaminophen 500 mg tablet 500 mg PO Q6H PRN fever or pain 02/16/22 (Tylenol Extra Strength) #14 tabs morphine 15 mg tablet,extended 15 mg PO Q12H pain severe 3 days 08/27/22 release (MS Contin) #6 tabs oxycodone-acetaminophen 5 mg-325 1 tab PO Q4-6H PRN pain (scale 08/27/22 mg tablet (Percocet) score 4-6) 7 days #42 tabs calcium carbonate 600 mg-vitamin 1 tab PO QAM #30 tabs 02/02/23 D3 10 mcg (400 unit) tablet morphine 15 mg immediate release 15 mg PO Q6H PRN pain #14 tabs 08/26/23 tablet Allergies Allergy/AdvReac Type Severity Reaction Status Date / Time No Known Allergies Allergy Verified 08/26/23 18:03 [No Known Allergies*] Review of Systems Review of Systems: Yes all other systems are reviewed and are negative [facility] Past Medical History [facility] Narrative: Social history: She denies tobacco, alcohol and drug use. Medical History Anxiety Asthma Bilateral primary osteoarthritis of knee Chronic kidney disease COVID-19 vaccine series completed Depression Elevated cholesterol Essential hypertension History of COVID-19 History of renal calculi Hx of hepatitis C Lumbar facet arthropathy JUSTIN (obstructive sleep apnea) Osteoarthritis of hands, bilateral Other chronic pain Other intervertebral disc displacement, lumbar region RBBB Renal stones Spondylosis of lumbar spine Type 2 diabetes mellitus with complication, without long-term current use of insulin Vitamin D deficiency Surgical History H/O abdominal hysterectomy H/O tubal ligation History of colonoscopy History of esophagogastroduodenoscopy (EGD) History of laryngoscopy History of total right knee replacement (TKR) Hx of arthroscopy of left knee Hx of dilation and curettage Hx of lithotripsy Hx of umbilical hernia repair S/P repair of ventral hernia Family History Family History Father Diabetes mellitus HTN (hypertension) Mother No problems noted. 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 Housing: House Are you a primary medicare insurance specialist to a significant other at home: No Do you presently have visiting nurse or other home services: Yes Alcohol intake: former Year quit: 1995 Comment: medicated in pacu Patient Tobacco Use Status: Former Tobacco user Tobacco use type: Cigarette Years Smoked: 5+ Substance Use Type: Crack/Cocaine Advance Directives: No Advance Directives Information Provided: No Do you have a plan to hurt others: No Plan service: No Current occupational status: retired 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 Right knee revealed no increased warmth or erythema, no joint effusion, she was able to flex and extend the knee without any limitations Psych: Pleasant, cooperative Medical Decision Making Medical Decision Making MDM Narrative: 68-year-old female with osteoarthritis of the right knee you presents emergency department for evaluation of increased pain of the right knee for 3 days. The patient denies any recent injury. She denied any systemic symptoms. Physical examination revealed no significant erythema or joint effusion. Patient is able to flex and extend her right knee without any difficulty. Differential diagnosis: ?Includes but is not limited to osteoarthritis, acute inflammation, infectious process Following evaluation was ordered: Right knee x-rays , two view Patient was initially treated with the following: Morphine 15 mg orally Course: 20:49 Patient's physical examination of the right knee did not reveal any significant abnormalities to suggest that she has an infectious or inflammatory process. My interpretation of the patient's right knee x-ray is as follows: No significant joint effusion, moderate degenerative changes noted The patient is taking Norcor(hydrocodone/acetaminophen) and Tylenol with no relief of her pain. Patient was advised to stop taking this medication and she was prescribed morphine 15 mg 3 times a day for the next 4-5 days. She was advised to keep her knee elevated and apply ice for 15 minutes 4 to 6 times a day to reduce inflammation and pain. She was given printed and verbal instructions and discharged home Independent Interpretation I performed an independent interpretation of an: Plain X-Ray Interpretation: My interpretation patient's two view knee x-ray is as follows: No acute fracture, no significant joint effusion, moderate degenerative change External Record Review External record reviewed: Other ([place] prescription monitoring program-patient is prescribed hydrocodone/acetaminophen regularly) Prescription Management I considered prescription management with: Pain Medication (Morphine 15 mg q.6 hours PRN pain) Chronic Conditions Patient?s care impacted by: Diabetes Discharge Plan Discharge Clinical Impression: Osteoarthritis of right knee, Acute pain of right knee Patient Disposition: Home, Self-Care Instructions: Osteoarthritis (ED) Additional Instructions: Stop taking hydrocodone/acetaminophen for 4 days while your taking morphine Take morphine 15 mg pills, 1 pill every 6 hours while awake (3 times a day).Morphine is a narcotic medication and can be addicting. If you are concerned about addiction you can ask the pharmacist for less pills or do not get this prescription filled. Apply ice to your right knee for 15 minute 4 to 6 times a day for the next 2-3 days, this should reduce the inflammation and pain in your right knee. Keep your right knee elevated and this should also help with the pain Follow-up with your doctor in 2 days. Please return to the emergency department if your symptoms get worse or if you develop any symptoms that are concerning to you. Prescriptions: New morphine 15 mg tablet 15 mg PO Q6H PRN (Reason: pain) Qty: 14 0RF Rx Instructions: Patient may request partial fill; Partial Fill upon patient request. No Action calcium carbonate-vitamin D3 600 mg-10 mcg (400 unit) tablet 1 tab PO QAM Qty: 30 2RF vitamin E (dl, acetate) 180 mg (400 unit) capsule 180 mg PO DAILY docusate sodium 100 mg Capsule 100 mg PO BID 14 Days Qty: 28 0RF acetaminophen [Tylenol Extra Strength] 500 mg tablet 500 mg PO Q6H PRN (Reason: fever or pain) Qty: 14 0RF oxycodone-acetaminophen [Percocet] 5-325 mg tablet 1 tab PO Q4-6H PRN (Reason: pain (scale score 4-6)) 7 Days Qty: 42 0RF Rx Instructions: Partial Fill upon patient request. morphine [MS Contin] 15 mg tablet extended release 15 mg PO Q12H 3 Days Qty: 6 0RF Rx Instructions: Partial Fill upon patient request. lisinopril-hydrochlorothiazide 10-12.5 mg tablet 1 tab PO DAILY amlodipine 2.5 mg tablet 2.5 mg PO DAILY metformin 500 mg tablet 500 mg PO QAM fluticasone propionate 50 mcg/actuation spray,suspension 50 mcg intranasal BID montelukast 10 mg tablet 10 mg PO DAILY ursodiol 250 mg tablet 750 mg PO BID albuterol sulfate 90 mcg/actuation HFA aerosol inhaler 90 mcg inhalation Q4-6H PRN (Reason: Wheezing) clonazepam 0.5 mg tablet 0.5 mg PO DAILY PRN (Reason: Anxiety) atorvastatin 20 mg tablet 20 mg PO DAILY tiotropium bromide 1.25 mcg/actuation mist 2 puff inhalation DAILY omeprazole 20 mg capsule,delayed release(DR/EC) 20 mg PO QAM fluticasone propion-salmeterol 115-21 mcg/actuation HFA aerosol inhaler 2 puff inhalation BID naloxone [Narcan] 4 mg/actuation spray,non-aerosol 0 spray intranasal darifenacin 15 mg tablet extended release 24 hr 15 mg PO QAM trazodone 150 mg tablet 300 mg PO BEDTIME albuterol sulfate 2.5 mg /3 mL (0.083 %) solution for nebulization inhalation celecoxib 200 mg capsule 0 mg PO prednisone 20 mg tablet 20 mg PO BID loratadine 10 mg tablet 10 mg PO QAM Print Language: Macanese
[2023-08-26] MEDS: Morphine Sulfate Immed Release 15 MG TABLET PO (20:53)
[2023-08-26 21:10] VITALS: BP 120/56; PULSE 78; RESP 16; TEMP 36.4; O2SAT 94
--- OUTSIDE RECORDS SUMMARY | 2023-08-28 10:43 | XMS_ITS | Continuity of Care Document ---
Author Organization [facility] Ne [email or web address] Internacionalconchita [facility] Address [address] [place] [address], 4t [place] [address]- Care Team Providers Care Freight Brakeman Name Role Phone True VILLALOBOS, Nandini Perez Primary Care Physician [phone] [facility] [id number] Date(s): 04/09/23 - 05/09/23 [email or web address] Intern[facility]als [facility] [address] [place] [address], 4th Floor [place], [place] [address] Attending Physician: Jose Shea Admitting Physician: Admtr, [...] 11 Refills, Maintenance, 04/08/22 9:09:00 EST, Aerosol, [facility], 2 puffs Inhalation 2 times [...] Mouth, Daily in AM, # 30 tablet, 11 Refills, Maintenance, 04/09/23 14:43:00 EST, [facility], 147.32, cm, 01/28/23 10:38:00 EST, Height Start Date: 04/09/23 Status: Ordered Diabetic Tuss = 100 mg, [...] REC Powder Start Date: 08/09/15 Status: Ordered montelukast 10 mg oral tablet 1, tablet, By Mouth, Daily in PM, # 30 tablet, Refills 6, Maintenance, 02/02/23 16:22:00 EST, [facility] Electron[facility], [facility], 147.32, cm, 01/28/23 10:38:00 EST, Height Start Date: 02/02/23 Status: Ordered Prevnar 13 intramuscular suspension 0.5 mL, Intramuscular, Once, # 1 each, 0 Refills, Maintenance, 08/09/15 14:37:57, Suspension Start Date: 08/09/15 Status: Ordered ProAir HFA 90 mcg/inh inhalation aerosol with adapter 2, puffs, Inhalation, Every 4 hours, PRN, # 8.5 Gm, Refills 0, Tot. Refills 0, Maintenance, 12/20/18 9:29:34 EDT, Aerosol, Route to Pharmacy Electronically, [id number], [facility] - Ho Start Date: 12/20/18 Status: Ordered Spiriva Respimat 1.25 mcg/inh inhalation aerosol 2 puffs, Inhalation, Daily, j44.9, # 1 each, 6 Refills, Maintenance, 02/27/22 19:09:00 EST, Aerosol, [facility] Start Date: 02/27/22 Status: Ordered [...] Effective Dates Status Health St atus Informant Benign essential hypertension 1 Confirmed 02/14/15 Active Chronic gastritis Confirmed Active Chronic low back pain 2 Confirmed 03/12/22 Active Cirrhosis of liver 3 Confirmed 07/15/17 Active Depressive disorder 4 Confirmed 02/14/15 Active History of hepatitis C Confirmed Active Moderate persistent asthma 5 Confirmed 02/14/15 Active Obstructive sleep apnea syndrome 6 Confirmed 03/21/22 Active Right bundle branch block Confirmed 07/22/22 Active Severe obesity (BMI 35.0-39.9) with comorbidity Confirmed Active Steatosis of liver Confirmed Active Type 2 diabetes mellitus 7 Confirmed 10/01/20 Active Urinary incontinence Confirmed Active 1Outside Source Comment: Overview: ?? Lisinopril-hydrochlorothiazide 10/12.5mg ?? Amlodipine 2.5mg ?? RBBB on EKG ?? Normal stress test 2018 Maintenance: BMP: 03/2022 WNL Lipid Panel: 03/2022 WNL ASCVD Risk: LDL <70 - Aerobic exercise to reduce BP. Initial goal of 30 min walk 3-5x/week. Increase as tolerated. - low-sodium diet (goal: <2g/day) and heart healthy diet such as DASH to reduce BP and prevent ASCVD. - Home BP monitoring 1-2 x day with goal of <140/90. - Seek immediate medical attention for chest pain, palpitations, SOB, syncope, or sudden changes in mental status. - Do not change or discontinue current prescriptions without first consulting health care provider Last Assessment & Plan: ?? Well controlled ?? Continue current regimen 2Outside Source Comment: Overview: ?? Hydrocodone t.i.d as needed. ?? Compliant with SANITATION OFFICER agreement 3Outside Source Comment: Overview: ?? Followed by DR. Lora at [facility] ?? S/t JOSHUA 4Outside Source Comment: Overview: ?? Established with psychiatry and therapy. ?? Rx'd trazodone and clonazepam 5Outside Source Comment: Overview: ?? Followed by pulmonology ?? Singulair, spiriva, advair, albuterol Last Assessment & Plan: ?? Loratadine refill provided today ?? Follow up as scheduled with pulmonology ?? Contact HC if sx worsen. ED precautions reviewed 6Outside Source Comment: Overview: ?? Has CPAP 7Outside Source Comment: Overview: ?? Metformin monotherapy ?? CKD stage 3 followed by nephrology BMP: 03/2022 WNL Microalbumin:03/2022 WNL Foot Exam: 07/2022 risk 0 Eye Exam: [facility] by [facility] in [place] Lipid panel: 03/2022 WNL ASCVD: LDL < 70 Statin: Yes ASA: No PATRICIA/ARB: Yes Encouraged regular aerobic exercise for improved glycemic control Encouraged daily foot checks Encouraged lean protein snacks and to avoid foods high in sugar and simple carbohydrates Treatment Goals: K2irnut: <7% FBG goal: <130 2 hour post prandial goal: <180 Last Assessment & Plan: Lab Results Component Value Date HGBA1C 5.9 03/21/2022 ?? Well controlled ?? Continue current regimen ?? Per patient request willrefer to podiatry for ongoing diabetic footcare Social History Social History Type Response Smoking Status Former smoker entered on: 01/23/15 Sex Patient Care team information Care Team Personnel Name: Nandini Biswas NP, V Position: S Outreach Member Role: PCP Address: Address: [address] [facility] [address] [facility] [place] [address]- Name: Fawn Ansari RN Position: S RN Member Role: Primary Care Nurse Name: Scott Christine RN Position: [facility] RN Member Role: Primary Care Nurse Name: Twyla Jeronimo RN Position: S RN Member Role: Primary Care Nurse Care Team Related Persons Name: ENRIQUE MAN Address: home [address] [place] [id number]
--- OUTSIDE RECORDS SUMMARY | 2023-08-28 10:43 | XMS_ITS | Continuity of Care Document ---
Author Organization [facility] Ne rodriguesWild Wild East, [employer]conchita [facility] Address [address] [place] [address], 4t [place] [address]- Care Team Providers Care Waste Reclaimer Name Role Phone Nandini Biswas NP, V Primary Care Physician [phone] [facility] [id number] Date(s): 12/29/22 - 03/05/23 [facility] Capulindm GrajedaWild Wild East, [employer]s [facility] [address] [place] [address], 4th Floor [place], [place] [address] Attending Physician: Not on Staff, Attending MD Referring Physician: Nandini Biswas NP, V [...] Refills, Maintenance, 04/08/22 9:09:00 EST, Aerosol, [facility], 2 puffs Inhalation 2 times [...] tablet, 5 Refills, Maintenance, 10/06/22 9:27:00 EDT, [facility], 147.32, cm, 04/08/22 8:19:00 EST, [...] Maintenance, 02/02/23 16:22:00 EST, [facility], [facility], 147.32, cm, 01/28/23 10:38:00 EST, [...] 9:29:34 EDT, Aerosol, Route to Pharmacy Electronically, [id number], [facility] - Start Date: 12/20/18 Status: Ordered Spiriva Respimat 1.25 mcg/inh inhalation aerosol 2 puffs, Inhalation, Daily, j44.9, # 1 each, 6 Refills, Maintenance, 02/27/22 19:09:00 EST, Aerosol, [facility] Start Date: 02/27/22 Status: Ordered [...] RBBB on EKG ?? Normal stress test 2019 Maintenance: BMP: 03/2022 WNL Lipid Panel: 03/2022 [...] Hydrocodone t.i.d as needed. ?? Compliant with POST PARTUM NURSE agreement 3Outside Source Comment: Overview: ?? Follow[facility] by DR[facility] Lora at [facility] ?? S/t JOSHUA 4Outside Source Comment: [...] Exam: Followed by [facility] in [place] Lipid panel: 03/2022 WNL ASCVD: LDL < 70 Statin: Yes ASA: No PATRICIA/ARB: Yes Encouraged regular aerobic exercise for improved glycemic control Encouraged daily foot checks Encouraged lean protein snacks and to avoid foods high in sugar and simple carbohydrates Treatment Goals: V5uqobe: <7% FBG goal: <130 2 hour post [...] Personnel Name: Nandini Biswas NP, V Position: [facility] Outreach Member Role: PCP Address: Address: [address] [facility] [address] [place] [address], [place] [address]- Name: Fawn Ansari RN Position: [facility] RN Member Role: Primary Care Nurse Name: Scott Christine RN Position: [facility] SN RN Member Role: Primary Care Nurse Name: Twyla Jeronimo RN Position: S RN Member Role: Primary Care Nurse Care Team Related Persons Name: ENRIQUE MAN Address: home [address] [place] [id number]
--- OUTSIDE RECORDS SUMMARY | 2023-08-28 10:43 | XMS_ITS | Continuity of Care Document ---
Author Organization [facility] Ne [email or web address] Therapeuticsconchita [facility] Address [address] [place] [address], 4t [place] [address]- Care Team Providers Care Center Punch Operator Name Role Phone True VILLALOBOS, Nandini Perez Primary Care Physician [facility] [id number] Date(s): 12/29/22 - 03/07/23 [facility] Bowers[facility] GrajedaK2 Therapeuticss [facility] [address] [place] [address], 4th Floor [place], [place] [address] Attending Physician: Silvana Power DO Admitting Physician: Silvana Power DO Referring Physician: Nandini Biswas NP, V Allergies, [...] 11 Refills, Maintenance, 04/08/22 9:09:00 EST, Aerosol, [facility], 2 puffs Inhalation 2 times a [...] tablet, 5 Refills, Maintenance, 10/06/22 9:27:00 EDT, [facility], 147.32, cm, 04/08/22 8:19:00 EST, [...] Maintenance, 02/02/23 16:22:00 EST, [facility] Electron[facility], [facility], 147.32, cm, 01/28/23 10:38:00 EST, Height [...] 9:29:34 EDT, Aerosol, Route to Pharmacy Electronically, [id number], [facility] - [place] Start Date: 12/20/18 Status: Ordered Spiriva Respimat 1.25 mcg/inh inhalation aerosol 2 puffs, Inhalation, Daily, j44.9, # 1 each, 6 Refills, Maintenance, 02/27/22 19:09:00 EST, Aerosol, [facility] Start Date: 02/27/22 Status: Ordered traZODone [...] Hydrocodone t.i.d as needed. ?? Compliant with TANK BUILDER AND ERECTOR agreement 3Outside Source Comment: Overview: ?? Follow[facility]. Lora at [facility] ?? S/t JOSHUA 4Outside Source Comment: [...] Exam: Followed by [facility] in [place] Lipid panel: 03/2022 WNL ASCVD: LDL < 70 Statin: Yes ASA: No PATRICIA/ARB: Yes Encouraged regular aerobic exercise for improved glycemic control Encouraged daily foot checks Encouraged lean protein snacks and to avoid foods high in sugar and simple carbohydrates Treatment Goals: I6ivsqh: <7% FBG goal: <130 2 hour post [...] Outreach Member Role: PCP Address: Address: [address] [facility] [address] [facility] [place] [place] [address]- Name: Fawn Ansari RN Position: S RN Member Role: Primary Care Nurse Name: Scott Christine RN Position: [facility] RN Member Role: Primary Care Nurse Name: Twyla Jeronimo RN Position: S RN Member Role: Primary Care Nurse Care Team Related Persons Name: ENRIQUE MAN Address: home [address] [place] [address]
--- OUTSIDE RECORDS SUMMARY | 2023-08-28 10:43 | XMS_ITS | Continuity of Care Document ---
Author Organization [facility] Ne rodriguesSpamLionconchita [facility] Address [address] [place] [address], 4t [place] [address]- Care Team Providers Care Presser Cotton Ginning Name Role Phone True VILLALOBOS, Nandini Perez Primary Care Physician [phone] [facility] [id number] Date(s): 02/06/23 - 03/28/23 [facility] Nedm GrajedaSpamLions [facility] [address] [place] [address], 4th [address] [place], [place] [address] Attending Physician: Tracy Hernandez MD Admitting Physician: Tracy Hernandez MD Referring Physician: Nandini Biswsa NP, V Allergies, Adverse Reactions, Alerts No [...] 11 Refills, Maintenance, 04/08/22 9:09:00 EST, Aerosol, [facility], 2 puffs Inhalation 2 times [...] Mouth, Daily in AM, # 30 tablet, 0 Refills, Maintenance, 03/26/23 10:25:00 EST, [facility], 147.32, cm, 01/28/23 10:38:00 EST, Height Start Date: 03/26/23 Status: Ordered Diabetic Tuss = 100 mg, [...] Maintenance, 02/02/23 16:22:00 EST, [facility], [facility], 147.32, cm, 01/28/23 10:38:00 EST, [...] 9:29:34 EDT, Aerosol, Route to Pharmacy Electronically, [id number], [facility] - Start Date: 12/20/18 Status: Ordered Spiriva Respimat 1.25 mcg/inh inhalation aerosol 2 puffs, Inhalation, Daily, j44.9, # 1 each, 6 Refills, Maintenance, 02/27/22 19:09:00 EST, Aerosol, [facility] Start Date: 02/27/22 Status: Ordered [...] Hydrocodone t.i.d as needed. ?? Compliant with ASSOCIATE FINANCIAL ADVISOR agreement 3Outside Source Comment: Overview: ?? [facility] L[facility] [place] [facility] ?? S/t JOSHUA 4Outside Source Comment: [...] Exam: Followed by [facility] in [place] Lipid panel: 03/2022 WNL ASCVD: LDL < 70 Statin: Yes ASA: No PATRICIA/ARB: Yes Encouraged regular aerobic exercise for improved glycemic control Encouraged daily foot checks Encouraged lean protein snacks and to avoid foods high in sugar and simple carbohydrates Treatment Goals: U9jital: <7% FBG goal: <130 2 hour post [...] Outreach Member Role: PCP Address: Address: [address] [facility] [address] [facility], [facility] [place] [address]- Name: Fawn Ansari RN Position: S RN Member Role: Primary Care Nurse Name: Scott Christine RN Position: [facility] RN Member Role: Primary Care Nurse Name: Twyla Jeronimo RN Position: S RN Member Role: Primary Care Nurse Care Team Related Persons Name: ENRIQUE MAN Address: home [address] [place] [address]
--- OUTSIDE RECORDS SUMMARY | 2023-08-28 10:44 | XMS_ITS | Patient Health Record ---
Author Organization [facility] Address [address] [place] [address] Care Team Providers Care Claim Benefit Specialist Name Role Phone Nandini Biswas NP Primary Care Provider UnavailJason Briceno Unavailable [phone] ALLERGIES No Known Allergies RESULTS Component Value Reference Range Notes Prothrombin Time INR Reviewed date:04/13/2023 06:39:26 PM Interpretation: Performing Lab:[facility], [address] [place] [id number] Notes/Report: Prothrombin Time 11.3 11.1-13.3 SEC INTERNATIONAL NORM RATIO 0.9 0.9-1.1 INTERNATIONAL NORMALIZED RATIO (INR) REFERENCE RANGES [...] mechanical prosthetic heart valves: 2.5 - 3.5 Alpha Fetoprotein Reviewed date:04/15/2023 03:58:46 PM Interpretation: Performing Lab:[facility], [address] [place] [phone] Notes/Report: Alpha Fetoprotein 1.8 Reference Range: <6.1 The use of AFP as a tumor marker in females is not recommended. This test was performed using the Velasquez [place] chemiluminescent method. Values obtained from different assay methods cannot be used interchangeably. AFP levels, regardless of value, should not be interpreted as absolute evidence of the presence or absence of disease. THIS TEST WAS PERFORMED AT: [employer] [address] [place] [id number] NIMCO BETH MD REASON FOR REFERRAL No Information MEDICATIONS Medication SIG (Take, Route, Frequency, Duration) Notes Start Date End Date Status Ursodiol 250 MG 3 Orally Twice a day for 30 days 06/02/2023 Active Omeprazole 20 MG 1 Orally Every morni ng for 30 day(s) 07/02/2022 Active Vitamin D 1000unit A ctive glipiZIDE XL 5mg Act laura Ursodiol 250 MG 3 Orally Twice a day for 30 day(s) 06/02/2022 Active Flovent HFA 12mg Act laura metFORMIN HCl 500mg Active SudoGest 30 MG Oral for 30 Act laura Singulair 10mg Activ e clonazePAM 0.5 MG Oral for 30 Active KlonoPIN 0.5 MG 1 tablet Orally Twic e a day Active traZODone HCl 150 MG 1 tablet at bedtime Orally Once a day Active oxyCODONE HCl 5 MG/5ML 5 ml as needed Or ally every 6 hrs Active ProAir HFA 108 (90 Base) MCG/ACT 2 puffs as needed Inhalation every 4 hrs Active Calcium 600 + D 600mg Active tylenol Not-Taking HYDROcodone-Acetaminophe n 5-500 MG 1 capsule as needed Orally every 6 hrs Active ibuprofen Not-Taking IMMUNIZATIONS Vaccine Route Administration Date Status Comme [...] malignant neoplasm of colon (Z12.11) Active confirmed 753389490 Problem Other cirrhosis of liver (K74.69) Active confirmed Problem Fatty liver (K76.0) Active confirmed Problem History of hepatitis C (Z86.19) Active confirmed [id number] Problem Chronic gastritis without bleeding, unspecified gastritis type (K29.50) Active confirmed [id number] VITAL SIGNS Temperature 97.3 degrees Fahrenheit 02/26/2023 Blood pressure diastolic 00 mm Hg 02/26/2023 Height 58 in 02/26/2023 Blood pressure systolic 000 mm Hg 02/26/2023 Weight 182 lbs 02/26/2023 BMI 38.03 kg/m2 02/26/2023 Encounters Encounter Location Date Provider Diagnosis [facility] [address] [place] [phone] 02/26/2023 Jason Lora Fatty liver K76.0 ; Other cirrhosis of liver K74.69 and History of hepatitis C Z86.19 [facility] [address] [place] [phone] 06/02/2023 Jason Lora [facility] [address] [place] [phone] 07/02/2023 Jason Lora ASSESSMENTS Encounter Date Diagnosis Assessment Notes Treatment Notes Treatment Clinical Notes 02/26/2023 Other cirrhosis of liver (ICD-10 - K74.69) 02/26/2023 Fatty liver (ICD-10 - K76.0) 02/26/2023 History of hepatitis C (ICD-10 - Z86.19) PLAN OF TREATMENT Pending Test Test Name Order Date LIVER PROFILE 02/25/2022 LIVER PROFILE 08/27/2012 LIVER PROFILE 09/15/2013 LIVER PROFILE 08/22/2021 LIVER PROFILE 07/03/2020 CBC w DIFF 02/25/2022 CBC w DIFF 07/03/2020 PROTHROMBIN TIME (PT, INR) 07/03/2020 ALPHA-FETOPROTEIN,TUMOR MARKER 1 ALPHA-FETOPROTEIN,TUMOR MARKER 3 ALPHA-FETOPROTEIN,TUMOR MARKER 2 ALPHA-FETOPROTEIN,TUMOR MARKER 4 ALPHA-FETOPROTEIN,TUMOR MARKER 3 ALPHA-FETOPROTEIN,TUMOR MARKER 2 ALPHA-FETOPROTEIN,TUMOR MARKER 7 US ABD 03/12/2017 US ABD 07/03/2020 Prothrombin Time INR 02/25/2022 Prothrombin Time INR 02/26/2023 Future Test Test Name Order Date UPPER GI ENDOSCOPY 03/05/2018 COLONOSCOPY 03/05/2018 Next Appt Details Provider Name:Jason Lora , 02/25/2024 09:00:00 AM, [address], [address], [place], [address], Insurance Providers Payer Name Payer Address Payer Phone Subscriber Number Group Number Insured Name Patient Relationship to Insured Coverage Start Date Coverage End Date [place] [address] [place] [address] [id number] [id number] MAGUIRE Self - patient is the insured MEDICAID OF [employer] [address] [facility] [place] [place] [address] [id number] [id number] MAGUIRE Self - patient is the insured MEDICAL (GENERAL) HISTORY Medical History History ICD Code Fatty liver--liver biopsy in 01/2001 with bridging fibrosis, steatohepatitis, and piecemeal necrosis Hepatitis C-Hep C Genotype 2 b, treated successfully in 2002 with 6 months of pegylated interferon and ribavirin, with nondetectable HepC RNA in 2015---Gr 3/4, StageIII/IV on biopsy in 2000(as above)--she uses ursodiol 750 mg b.i.d. Asthma Anxiety Denies DE,CVA,renal disease Kidney stones Negative colonoscopy with Dr. Rodriguez in [place] Urinary incontinence Neg. screening colonoscopy in 04/2018 EGD in 04/2018 with erosive g astritis but neg. Hpylori, no varices, small to mod-sized hiatal hernia Surgical History Surgery Date(Month/Year) Tubal ligation Umbilical hernia surgery 03/2013-Dr. Up [facility] Vocal cord polyps Bladder suspension by Dr Avelino lama in [place] for urinary incontinence on 09/19/13. Veins in her left leg Right knee replacement with Dr. Solorzano 2020
== END 2023-08-26 21:11 | disposition home or self-care (01) ==
PROVIDERS: Emergency Provider Emergency Medicine Emergency Medical Services; PCP Registered Nurse
DX: M17.11 Unilateral primary osteoarthritis, right knee (principal); Z96.652 Presence of left artificial knee joint; Z79.899 Other long term (current) drug therapy; Z79.02 Long term (current) use of antithrombotics/antiplatelets; Z79.84 Long term (current) use of oral hypoglycemic drugs; Z87.891 Personal history of nicotine dependence
CPT/HCPCS: 73560; 99283; 99284

== ENCOUNTER 2023-10-06 08:01 | Outpatient (REF) | payer OTHER, SELFPAY ==
--- NOTE | 2023-10-06 09:18 | EMG_ITS ---
Bilateral median and ulnar motor and sensory studies were performed. Bilateral radial sensory studies were performed and paraspinal muscles were tested with a needle. IMPRESSION: Mild left median neuropathy across carpal tunnel. Otherwise no significant abnormality noted. MD DEANDRE Knapp/CALDERON / [id number]
== END 2023-10-06 08:02 | disposition home or self-care (01) ==
LOC: HO.NEURO 08:01
PROVIDERS: PCP Registered Nurse; Visit Provider Registered Nurse
DX: R20.0 Anesthesia of skin (principal); R20.2 Paresthesia of skin
CPT/HCPCS: 95886; 95911

== ENCOUNTER 2023-10-26 13:04 | Outpatient (REF) | payer OTHER, SELFPAY ==
[2023-11-02 13:20] LABS: Codeine, Ur NEGATIVE; Hydromorphone, Ur NEGATIVE; Morphine, Ur NEGATIVE; Oxycodone, Ur NEGATIVE; Oxymorphone, Ur NEGATIVE
[2023-11-02 13:22] LABS: Noroxycodone, Ur NEGATIVE
--- NOTE | 2023-11-26 14:14 | P.CONNP_ITS ---
History of Present Illness Reason for Consult Consult date: 11/26/23 Chief Complaint Chief complaint: M54.50,G89.29 History of Present Illness Narrative: RTANE patient seen otday re: H/O renal cyst and underlying CKD 2 DM/HTN Cont to stress renal proetection given risk of developing CKD PMFSH Past Medical History Medical History Anxiety Asthma Bilateral primary osteoarthritis of knee Chronic kidney disease COVID-19 vaccine series completed Depression Elevated cholesterol Essential hypertension History of COVID-19 History of renal calculi Hx of hepatitis C Lumbar facet arthropathy JUSTIN (obstructive sleep apnea) Osteoarthritis of hands, bilateral Other chronic pain Other intervertebral disc displacement, lumbar region RBBB Renal stones Spondylosis of lumbar spine Type 2 diabetes mellitus with complication, without long-term current use of insulin Vitamin D deficiency Family History Family History Father Diabetes mellitus HTN (hypertension) Mother No problems noted. 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 Housing: House Are you a primary health care marketing specialist to a significant other at home: No Do you presently have visiting nurse or other home services: Yes Alcohol intake: former Year quit: 1995 Comment: medicated in pacu Patient Tobacco Use Status: Former Tobacco user Tobacco use type: Cigarette Years Smoked: 5+ Substance Use Type: Crack/Cocaine service: No Current occupational status: retired 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 Meds Allergies Allergy/AdvReac Type Severity Reaction Status Date / Time No Known Allergies Allergy Verified 08/26/23 18:03 [No Known Allergies*] Home Medications ?Medication ?Instructions ?Recorded ?Confirmed ?Last Taken ?Type albuterol sulfate 90 mcg/actuation 90 mcg inhalation Q4-6H PRN 03/21/20 08/25/22 Unknown History aerosol inhaler Wheezing atorvastatin 20 mg tablet 20 mg PO DAILY 03/21/20 08/25/22 11/21/20 07:00 History clonazepam 0.5 mg tablet 0.5 mg PO DAILY PRN Anxiety 03/21/20 08/25/22 Unknown History omeprazole 20 mg capsule,delayed 20 mg PO QAM 03/21/20 08/25/22 11/21/20 07:00 History release tiotropium bromide 1.25 2 puff inhalation DAILY 03/21/20 08/25/22 11/21/20 07:00 History mcg/actuation mist for inhalation amlodipine 2.5 mg tablet 2.5 mg PO DAILY 04/03/20 08/25/22 11/21/20 07:00 History fluticasone propionate 50 50 mcg intranasal BID 04/03/20 08/25/22 Unknown History mcg/actuation nasal spray,suspension lisinopril 10 1 tab PO DAILY 04/03/20 08/25/22 Unknown History mg-hydrochlorothiazide 12.5 mg tablet metformin 500 mg tablet 500 mg PO QAM 04/03/20 08/25/22 11/21/20 07:00 History montelukast 10 mg tablet 10 mg PO DAILY 04/03/20 08/25/22 Unknown History ursodiol 250 mg tablet 750 mg PO BID 04/03/20 08/25/22 11/21/20 07:00 History fluticasone propionate 115 2 puff inhalation BID 08/21/20 08/25/22 11/21/20 07:00 History mcg-salmeterol 21 mcg/actuation HFA inhaler vitamin E (dl, acetate) 180 mg 180 mg PO DAILY 11/22/20 08/25/22 Unknown History (400 unit) capsule darifenacin 15 mg tablet,extended 15 mg PO QAM 06/24/21 08/25/22 Unknown History release 24 hr naloxone 4 mg/actuation nasal 0 spray intranasal 06/24/21 08/21/22 Unknown History spray (Narcan) trazodone 150 mg tablet 300 mg PO BEDTIME 06/24/21 08/25/22 Unknown History albuterol sulfate 2.5 mg/3 mL mg inhalation 10/01/21 08/21/22 Unknown History (0.083 %) solution for nebulization celecoxib 200 mg capsule 0 mg PO 07/14/22 08/21/22 Unknown History loratadine 10 mg tablet 10 mg PO QAM 08/13/22 08/25/22 Unknown History prednisone 20 mg tablet 20 mg PO BID 08/13/22 08/25/22 Unknown History Procedures Date of Service Date of Service: 11/26/23
== END 2023-10-26 13:05 | disposition home or self-care (01) ==
LOC: HO.HHCLNP 13:04
PROVIDERS: Visit Provider Registered Nurse
DX: M54.50 Low back pain, unspecified (principal); G89.29 Other chronic pain
CPT/HCPCS: 80365; G0480

== ENCOUNTER 2023-12-28 08:15 | Outpatient (REF) | payer OTHER, SELFPAY | END 2023-12-28 08:16 | disposition home or self-care (01) | LOC: HO.XRAY 08:15 | PROVIDERS: PCP Registered Nurse; Visit Provider Registered Nurse | DX: M25.511 Pain in right shoulder (principal) | CPT/HCPCS: 73030 ==

== ENCOUNTER 2024-01-14 13:00 | Outpatient (AMB) | payer OTHER, SELFPAY ==
--- NOTE | 2024-01-14 13:11 | MHC.OFFVIS ---
Intake Visit Reasons: New Prob - Left Knee Pain Intake Note: Ludivina is a 68 year old croatian speaking patient who presents today for a new problem visit with complaints of left knee pain. Patient reports that she has had ongoing increasing pain, she is taking [place] 5/325 BID as well as Tylenol BID with no relief. Allergies No Known Allergies [No Known Allergies*] Allergy (Verified 01/16/24 19:21) HPI HPI New Prob - Left Knee Pain: Details: Ludivina is a 68 year old croatian speaking patient who presents today for a new problem visit with complaints of left knee pain. Patient reports that she has had ongoing increasing pain, she is taking [place] 5/325 BID as well as Tylenol BID with no relief. She had a successful right knee over 3 years ago. She has known left knee osteoarthritis. She has received injections in the past but is feeling like those are not helpful she has done physical therapy. She has taken both nonnarcotic and narcotic medicine for pain. She has been given prednisone off and on for pain and her asthma. Now she describes that she is unable to walk comfortably without pain. She requires an assistive device and feels that her left knee limits her activity and decrease the quality of her life. FORMERLY [facility], 1928–1983 Medical History (Updated 01/18/24 @ 13:04 by Ulises Solorzano MD) Primary osteoarthritis of left knee Osteoarthritis of hands, bilateral History of COVID-19 RBBB Hx of hepatitis C Asthma Anxiety Elevated cholesterol COVID-19 vaccine series completed JUSTIN (obstructive sleep apnea) Chronic kidney disease Depression Other intervertebral disc displacement, lumbar region Spondylosis of lumbar spine Lumbar facet arthropathy Bilateral primary osteoarthritis of knee Renal stones Essential hypertension Type 2 diabetes mellitus with complication, without long-term current use of insulin Vitamin D deficiency Other chronic pain History of renal calculi Surgical History History of total right knee replacement (TKR) Hx of dilation and curettage History of laryngoscopy Hx of umbilical hernia repair Hx of arthroscopy of left knee Hx of lithotripsy History of esophagogastroduodenoscopy (EGD) S/P repair of ventral hernia H/O abdominal hysterectomy H/O tubal ligation History of colonoscopy Family History Father Diabetes mellitus HTN (hypertension) Mother No problems noted. 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 Her left knee is notable for marked tenderness to palpation medial compartment and positive gait antalgia. She has 5-130 degrees of motion. She is stable to varus and valgus stress. Assessment & Plan Assessment & Plan (1) Primary osteoarthritis of left knee: Code(s): M17.12 - Unilateral primary osteoarthritis, left knee Category: Medical Plan: This is a 68-year-old woman with osteoarthritis of the left knee. She had successful right knee replacement several years ago and feels limited by her left knee. She does have her controlled diabetes and a history of successful rotator cuff repair. I had a long discussion regarding treatment options including injections, referral to pain management and surgery. After this discussion we both decided that surgery would be the best route for her and we will proceed forward with left knee replacement.I discussed the risks benefits and alternatives including but not limited to the risk of pain, infection, stiffness, need for further surgery as well as potential medical complications such as blood clots, pulmonary embolism and cardiac complications. She expressed understanding and I will begin the preoperative clearance process. Coding Level of Care Code Est Pt Level 4 (88455) Diagnoses Primary osteoarthritis of left knee M17.12
== END 2024-01-14 13:45 | disposition home or self-care (01) ==
PROVIDERS: PCP Registered Nurse; Visit Provider Orthopaedic Surgery
DX: M17.12 Unilateral primary osteoarthritis, left knee (principal)
CPT/HCPCS: 99214

== ENCOUNTER → 2024-01-14 13:00 | Outpatient (BNVA) | payer OTHER, SELFPAY | PROVIDERS: PCP Registered Nurse; Visit Provider Orthopaedic Surgery | DX: M17.12 Unilateral primary osteoarthritis, left knee (principal) | CPT/HCPCS: 99212 ==

== ENCOUNTER 2024-01-16 18:56 | Emergency (ER) | payer OTHER, SELFPAY ==
--- NOTE | 2024-01-16 | ECG_ITS ---
Test Reason : CHEST PAIN Blood Pressure : / mmHG Vent. Rate : 085 BPM Atrial Rate : 085 BPM P-R Int : 180 ms QRS Dur : 128 ms QT Int : 412 ms P-R-T Axes : 043 -07 011 degrees QTc Int : 490 ms Poor data quality Normal sinus rhythm Right bundle branch block Abnormal ECG When compared with ECG of 20-FEB-2023 14:09, Vent. rate has increased BY 30 BPM Referred By: Generic ED Physician Electronically Signed By:Shady Gomez
--- NOTE | ~2024-01-16 | XR_ITS ---
EXAMINATION: XR CHEST CLINICAL INFORMATION: cough, chest congestion COMPARISON: Chest radiograph 11/13/2021 TECHNIQUE: PA and lateral views of the chest were obtained. FINDINGS: The lungs are well expanded. No focal consolidation, effusion, edema, or pneumothorax. The cardiomediastinal silhouette is within normal limits for technique and unchanged. No acute osseous abnormality. XR/XR chest 2V IMPRESSION: No acute pulmonary disease. No significant interval change compared to 11/13/2021. Electronically signed by: Nadine Pickens DO 01/16/2024 09:04 PM EDT
[2024-01-16 19:16] VITALS: BP 136/66; PULSE 91; RESP 20; TEMP 36.4; O2SAT 95; BMI 37.6
--- NOTE | 2024-01-16 19:18 | ED_ITS ---
HPI - General Adult General Chief complaint: Upper Respiratory Symptoms Stated complaint: chest pain, sob Time Seen by Provider: 01/16/24 20:59 Source: patient, old records reviewed and park interpreter Mode of arrival: ambulatory Limitations: no limitations History of Present Illness ED Provider: RAMON SANDOVAL narrative: 68 yo female with PMH of MD, arthritis, DM, asthma, HTN here with c/o 5 days of cough, sore throat, productive cough, chest wall hurts with cough. She denies travel, sick contacts, fevers. She notes she cannot sleep due to the cough. She has rescue inhaler at home as well. MD complaint: URI symptoms Onset (ago): day(s) (5) Location: mouth and chest Radiation: non-radiation Severity: moderate Quality: burning and aching Pain Consistency: intermittent Relieving factors: none Exacerbating factors: other (coughing, swallowing) Associated symptoms: cough Treatments prior to arrival: other (rescue inhaler) Related Data Home Medications ?Medication ?Instructions ?Recorded ?Confirmed albuterol sulfate 90 mcg/actuation 90 mcg inhalation Q4-6H PRN 03/21/20 08/25/22 aerosol inhaler Wheezing atorvastatin 20 mg tablet 20 mg PO DAILY 03/21/20 08/25/22 clonazepam 0.5 mg tablet 0.5 mg PO DAILY PRN Anxiety 03/21/20 08/25/22 omeprazole 20 mg capsule,delayed 20 mg PO QAM 03/21/20 08/25/22 release tiotropium bromide 1.25 2 puff inhalation DAILY 03/21/20 08/25/22 mcg/actuation mist for inhalation amlodipine 2.5 mg tablet 2.5 mg PO DAILY 04/03/20 08/25/22 fluticasone propionate 50 50 mcg intranasal BID 04/03/20 08/25/22 mcg/actuation nasal spray,suspension lisinopril 10 1 tab PO DAILY 04/03/20 08/25/22 mg-hydrochlorothiazide 12.5 mg tablet metformin 500 mg tablet 500 mg PO QAM 04/03/20 08/25/22 montelukast 10 mg tablet 10 mg PO DAILY 04/03/20 08/25/22 ursodiol 250 mg tablet 750 mg PO BID 04/03/20 08/25/22 fluticasone propionate 115 2 puff inhalation BID 08/21/20 08/25/22 mcg-salmeterol 21 mcg/actuation HFA inhaler vitamin E (dl, acetate) 180 mg 180 mg PO DAILY 11/22/20 08/25/22 (400 unit) capsule darifenacin 15 mg tablet,extended 15 mg PO QAM 06/24/21 08/25/22 release 24 hr naloxone 4 mg/actuation nasal 0 spray intranasal 06/24/21 08/21/22 spray (Narcan) trazodone 150 mg tablet 300 mg PO BEDTIME 06/24/21 08/25/22 albuterol sulfate 2.5 mg/3 mL mg inhalation 10/01/21 08/21/22 (0.083 %) solution for nebulization celecoxib 200 mg capsule 0 mg PO 07/14/22 08/21/22 loratadine 10 mg tablet 10 mg PO QAM 08/13/22 08/25/22 prednisone 20 mg tablet 20 mg PO BID 08/13/22 08/25/22 Previous Rx's ?Medication ?Instructions ?Recorded docusate sodium 100 mg capsule 100 mg PO BID 14 days #28 caps 11/24/20 acetaminophen 500 mg tablet 500 mg PO Q6H PRN fever or pain 02/16/22 (Tylenol Extra Strength) #14 tabs morphine 15 mg tablet,extended 15 mg PO Q12H pain severe 3 days 08/27/22 release (MS Contin) #6 tabs oxycodone-acetaminophen 5 mg-325 1 tab PO Q4-6H PRN pain (scale 08/27/22 mg tablet (Percocet) score 4-6) 7 days #42 tabs calcium carbonate 600 mg-vitamin 1 tab PO QAM #30 tabs 02/02/23 D3 10 mcg (400 unit) tablet morphine 15 mg immediate release 15 mg PO Q6H PRN pain #14 tabs 08/26/23 tablet azithromycin 250 mg tablet See Rx Instructions PO .COMPLEX #6 01/16/24 tabs benzonatate 100 mg capsule 100 mg PO TID PRN cough #20 caps 01/16/24 prednisone 20 mg tablet 40 mg (2 x 20 mg) PO DAILY 3 days 01/16/24 #6 tabs Allergies Allergy/AdvReac Type Severity Reaction Status Date / Time No Known Allergies Allergy Verified 01/16/24 19:21 [No Known Allergies*] Review of Systems 2 Review of Systems: Constitutional : No Fever, pos Chills ENT/Mouth : No Hoarseness, pos sore throat, pos Rhinorrhea Eyes: No Redness, No Discharge, No Vision Changes Cardiovascular : No Chest Pain, positive SOB Respiratory : positive Cough, pos Sputum, positive Wheezing, Gastrointestinal : No Nausea, No Vomiting, No Diarrhea, No abdominal Pain Genitourinary : No Dysuria, No Hematuria Musculoskeletal : No joint pain, No Myalgias Skin : No rash Neuro : No Weakness, No Numbness, No Headache Psych : No anxiety, depression All other systems reviewed and are negative [facility] Past Medical History Attestation statement: The following information was validated with the patient. Source: old records reviewed Medical History Osteoarthritis of hands, bilateral History of COVID-19 RBBB Hx of hepatitis C Asthma Anxiety Elevated cholesterol COVID-19 vaccine series completed JUSTIN (obstructive sleep apnea) Chronic kidney disease Depression Other intervertebral disc displacement, lumbar region Spondylosis of lumbar spine Lumbar facet arthropathy Bilateral primary osteoarthritis of knee Renal stones Essential hypertension Type 2 diabetes mellitus with complication, without long-term current use of insulin Vitamin D deficiency Other chronic pain History of renal calculi Surgical History History of total right knee replacement (TKR) Hx of dilation and curettage History of laryngoscopy Hx of umbilical hernia repair Hx of arthroscopy of left knee Hx of lithotripsy History of esophagogastroduodenoscopy (EGD) S/P repair of ventral hernia H/O abdominal hysterectomy H/O tubal ligation History of colonoscopy Family History Family History Father Diabetes mellitus HTN (hypertension) Mother No problems noted. 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 Housing: House Are you a primary resident care provider to a significant other at home: No Do you presently have visiting nurse or other home services: Yes Alcohol intake: former Year quit: 1995 Comment: medicated in pacu Patient Tobacco Use Status: Former Tobacco user Tobacco use type: Cigarette Years Smoked: 5+ Substance Use Type: Crack/Cocaine Advance Directives: No Advance Directives Information Provided: No service: No Current occupational status: retired 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 Oriented X3. No acute distress. Eyes: Pupils equal, round and reactive to light. ENT: Pharynx mildly erythematous no exudates. uvula midline. TM normal bilaterally Neck: Normal inspection. Neck supple. CVS: Normal heart rate and rhythm. Pulses normal. Respiratory: No respiratory distress. Breath sounds bilateral rhonchi anteriorly no wheezes Abdomen: Soft and nontender. Skin: Skin warm and dry. Normal skin color. Normal skin turgor. Extremities: No lower extremity edema. Neuro: Oriented X 3. No motor deficit. No sensory deficit. Course Course Course Narrative: This is a Rapid Medical Examination (RME) performed by Mariela Cason PA-C in triage. Full HPI, ROS, assessment and treatment plan per primary provider in the Main ED. 68 yo female hx of DM, HTN, HDL, hep C, asthma, anxiety, depression, RBBB here for eval of cough productive of yellow sputum, chest congestion/ tightness, sore throat, and chills x1 mo. no known sick contacts. admits to covid vaccine 1 mo ago. using albuterol inhaler more often without relief. +congested cough. lungs clear. Plan: labs, viral/strep swabs, ekg, cxr Medical Decision Making Medical Decision Making [facility] Narrative: 68 yo female with PMH of MD, arthritis, DM, asthma, HTN here with c/o URI symptoms x 5 days with sputum and made much worse with cough. She cannot sleep due to the cough. She has no resp distress but her symptoms are concerning for bronchitis - at this time will start on tessalon and obtain swabs, EKG, CXR and viral panel. Treat for likely presumed bronchitis. Differential Diagnosis Differential Diagnoses: The differential diagnosis associated with the presentation includes bronchitis, viral syndrome, URI Admission/Observation Consideration of admission/observation: Escalation of care including admission/observation considered not toxic, normal O2 level, stable for DC Lab Data [facility] Lab Attestation statement: I reviewed the patient's lab results. 01/16/24 19:35 01/16/24 19:35 Labs: Lab Results 01/16/24 Range/Units 19:35 WBC 7.7 (4.8-10.8) X10*3/uL RBC 4.18 L (4.20-5.50) X10*6/uL Hgb 12.9 (12.0-16.0) g/dl Hct 37.4 (37.0-47.0) % MCV 89.5 (80.0-98.0) fL MCH 30.9 (27.0-33.0) pg MCHC 34.5 (31.0-35.0) g/dl RDW 11.8 (11.0-16.0) % Plt Count 227 (160-400) X10*3/uL MPV 9.3 L (9.4-12.3) fL Immature Gran % (Auto) 0.4 (0.0-0.4) % Neut % (Auto) 60.8 (45-73) % Lymph % (Auto) 25.8 (20-40) % [place] % (Auto) 6.1 (2-11) % Eos % (Auto) 6.5 H (0-4) % Baso % (Auto) 0.4 (0-2) % Lymph # (Auto) 2.0 (1.2-4.9) X10*3/uL [place] # (Auto) 0.5 (0.1-1.2) X10*3/uL Eos # (Auto) 0.5 H (0.0-0.4) X10*3/uL Baso # (Auto) 0.0 (0.0-0.2) X10*3/uL Abs Immat Gran (auto) 0.03 (0.00-0.03) X10*3/uL Absolute Neuts (auto) 4.7 (2.0-8.3) x10*3/uL Absolute Nucleated RBC 0.000 (0.0-0.012) X10*3/uL Nucleated RBC % (auto) 0.0 (0.0-0.2) /100WBC Sodium 139 (135-145) mmol/L Potassium 3.7 (3.3-5.1) mmol/L Chloride 102 (96-108) mmol/L Carbon Dioxide 29 (22-29) mmol/L Anion Gap 12 (12-20) BUN 21 H (9-16) mg/dL Creatinine 0.92 (0.5-1.4) mg/dL Estim Creat Clear Calc 56.6 Estimated GFR > 60 Random Glucose 133 H (60-115) mg/dL Calcium 9.3 (8.4-10.2) mg/dL Magnesium 1.7 (1.6-2.6) mg/dL Total Bilirubin 0.2 (0.0-1.0) mg/dL AST 29 (5-31) U/L ALT 37 H (0-31) U/L Alkaline Phosphatase 98 (39-117) U/L Troponin I High Sens < 2.7 (<3.5-17.0) ng/L Total Protein 7.0 (6.5-8.0) g/dL Albumin 3.9 (3.5-5.0) g/dL Influenza Type A (PCR) NEGATIVE (Negative) Influenza Type B (PCR) NEGATIVE (Negative) RSV RNA Qual (PCR) NEGATIVE (Negative) SARS-CoV-2 RNA (RT-PCR) NEGATIVE (Negative) S. pyogenes GrpA CYNDY Negative (Negative) Independent Interpretation I performed an independent interpretation of an: EKG and Plain X-Ray (normal ) Interpretation: Rate: 85 Rhythm: NSR [place]: left Normal P waves. Normal ALBERTO. RBBB ST T wave : no LANDON, sig artifact in inf leads, inverted t waves V1-V2 qTC: 490 prior studies: The study has been interpreted contemporaneously by me. . Radiology Impression Discussion of test interpretation with radiology: I have reviewed the radiologist's reading. External Record Review External record reviewed: Office record Prescription Management I considered prescription management with: Antibiotic and Other Discharge Plan Discharge Clinical Impression: Bronchitis Patient Disposition: Home, Self-Care Instructions: Acute Bronchitis (ED) Additional Instructions: labs reassuring negative for covid/flu/rsv no strep chest xray normal please take medications monitor blood sugar it can go high with steroids, return for any worsening symptoms or concerns Prescriptions: New azithromycin 250 mg tablet See Rx Instructions .ROUTE .COMPLEX Qty: 6 0RF Rx Instructions: For 250 mg dose pack: take 500 mg today (day 1), then 250 mg for 4 days (days 2-5) prednisone 20 mg tablet 40 mg PO DAILY 3 Days Qty: 6 0RF benzonatate 100 mg capsule 100 mg PO TID PRN (Reason: cough) Qty: 20 0RF No Action calcium carbonate-vitamin D3 600 mg-10 mcg (400 unit) tablet 1 tab PO QAM Qty: 30 2RF vitamin E (dl, acetate) 180 mg (400 unit) capsule 180 mg PO DAILY docusate sodium 100 mg Capsule 100 mg PO BID 14 Days Qty: 28 0RF acetaminophen [Tylenol Extra Strength] 500 mg tablet 500 mg PO Q6H PRN (Reason: fever or pain) Qty: 14 0RF morphine 15 mg tablet 15 mg PO Q6H PRN (Reason: pain) Qty: 14 0RF Rx Instructions: Patient may request partial fill; Partial Fill upon patient request. oxycodone-acetaminophen [Percocet] 5-325 mg tablet 1 tab PO Q4-6H PRN (Reason: pain (scale score 4-6)) 7 Days Qty: 42 0RF Rx Instructions: Partial Fill upon patient request. morphine [MS Contin] 15 mg tablet extended release 15 mg PO Q12H 3 Days Qty: 6 0RF Rx Instructions: Partial Fill upon patient request. lisinopril-hydrochlorothiazide 10-12.5 mg tablet 1 tab PO DAILY amlodipine 2.5 mg tablet 2.5 mg PO DAILY metformin 500 mg tablet 500 mg PO QAM fluticasone propionate 50 mcg/actuation spray,suspension 50 mcg intranasal BID montelukast 10 mg tablet 10 mg PO DAILY ursodiol 250 mg tablet 750 mg PO BID albuterol sulfate 90 mcg/actuation HFA aerosol inhaler 90 mcg inhalation Q4-6H PRN (Reason: Wheezing) clonazepam 0.5 mg tablet 0.5 mg PO DAILY PRN (Reason: Anxiety) atorvastatin 20 mg tablet 20 mg PO DAILY tiotropium bromide 1.25 mcg/actuation mist 2 puff inhalation DAILY omeprazole 20 mg capsule,delayed release(DR/EC) 20 mg PO QAM fluticasone propion-salmeterol 115-21 mcg/actuation HFA aerosol inhaler 2 puff inhalation BID naloxone [Narcan] 4 mg/actuation spray,non-aerosol 0 spray intranasal darifenacin 15 mg tablet extended release 24 hr 15 mg PO QAM trazodone 150 mg tablet 300 mg PO BEDTIME albuterol sulfate 2.5 mg /3 mL (0.083 %) solution for nebulization inhalation celecoxib 200 mg capsule 0 mg PO prednisone 20 mg tablet 20 mg PO BID loratadine 10 mg tablet 10 mg PO QAM Print Language: [place] Irish
[2024-01-16 19:40] LABS: MANUAL DIFF FLAG NO
[2024-01-16 19:44] LABS: Basophils Percent Auto 0.4 % (0-2); Eosinophils Absolute Auto 0.5 X10*3/uL (0.0-0.4); Eosinophils Percent Auto 6.5 % (0-4); Hematocrit 37.4 % (37.0-47.0); Hemoglobin 12.9 g/dl (12.0-16.0); Imm Gran Abs Auto 0.03 X10*3/uL (0.00-0.03); Imm Gran Pct Auto 0.4 % (0.0-0.4); Lymphocytes Percent Auto 25.8 % (20-40); Mean Corpuscular HGB Conc 34.5 g/dl (31.0-35.0); Mean Corpuscular Hemoglobin 30.9 pg (27.0-33.0); Mean Corpuscular Volume 89.5 fL (80.0-98.0); Mean Platelet Volume 9.3 fL (9.4-12.3); Monocytes Absolute Auto 0.5 X10*3/uL (0.1-1.2); Monocytes Percent Auto 6.1 % (2-11); Neutrophils Absolute Auto 4.7 x10*3/uL (2.0-8.3); Neutrophils Percent Auto 60.8 % (45-73); Platelet Count 227 X10*3/uL (160-400); Red Blood Count 4.18 X10*6/uL (4.20-5.50); Red Cell Distribution Width 11.8 % (11.0-16.0); White Blood Count 7.7 X10*3/uL (4.8-10.8)
[2024-01-16 19:55] LABS: IDNOW Serial# 08D9AD1C; Strep A Nucleic Acid Negative (Negative)
--- OUTSIDE RECORDS SUMMARY | 2024-01-16 19:58 | XMS_ITS | Continuity of Care Document ---
Author Organization [facility] Address [address] [place] [address]- Care Team Providers Care Finisher Card Tender Name Role Phone Sol VILLALOBOS, Kelli Primary Care Physician [phone] [id number] Date[facility]s): 11/04/23 - 12/13/[address] [address] Attending Physician: Kelli Horton NP Admitting Physician: Sol VILLALOBOS, Kelli Referring Physician: Kelli Horton NP Allergies, Adverse Reactions, Alerts No Known Allergies Medications Acetaminophen 1000mgs, By Mouth, 3 times a day, PRN as needed for pain, 0 Refills, Maintenance, 12/01/12 11:40:28 Start Date: 12/01/12 Status: Ordered Advair HFA 115 mcg / 21 mcg 2 puffs, Inhalation, 2 times a day, rinse mouth and throat after use, j44.9, # 1 each, 11 Refills, Maintenance, 04/08/22 9:09:00 EST, Aerosol, [facility], 2 [...] tablet, 11 Refills, Maintenance, 04/09/23 14:43:00 EST, [facility], 147.32, cm, 01/28/23 10:38:00 EST, [...] PM, # 30 tablet, Refills 6, Maintenance, 08/28/23 15:44:00 EDT, [facility], [facility], 147.32, cm, 01/28/23 10:38:00 EST, Height Start Date: 08/28/23 Status: Ordered Prevnar 13 intramuscular suspension 0.5 mL, Intramuscular, Once, # 1 each, 0 Refills, Maintenance, 08/09/15 14:37:57, Suspension Start Date: 08/09/15 Status: Ordered ProAir HFA 90 mcg/inh inhalation aerosol with adapter 2, puffs, Inhalation, Every 4 hours, PRN, # 8.5 Gm, Refills 0, Tot. Refills 0, Maintenance, 12/20/18 9:29:34 EDT, Aerosol, Route to Pharmacy Electronically, [id number], [facility] - Start Date: 12/20/18 Status: Ordered Spiriva Respimat 1.25 mcg/inh inhalation aerosol 2 puffs, Inhalation, Daily, j44.9, # 1 each, 6 Refills, Maintenance, 02/27/22 19:09:00 EST, Aerosol, [facility] Start Date: 02/27/22 Status: Ordered [...] Hydrocodone t.i.d as needed. ?? Compliant with STADIUM ATTENDANT agreement 3Outside Source Comment: Overview: ?? Followed by DR. Lora at [facility] [place] [facility] ?? S/t JOSHUA [...] Exam: [facility] [place] Lipid panel: 03/2022 WNL ASCVD: LDL < 70 Statin: Yes ASA: No PATRICIA/ARB: Yes Encouraged regular aerobic exercise for improved glycemic control Encouraged daily foot checks Encouraged lean protein snacks and to avoid foods high in sugar and simple carbohydrates Treatment Goals: Q4rypcm: <7% FBG goal: <130 2 hour post prandial goal: <180 Last Assessment & Plan: Lab Results Component Value Date HGBA1C 5.9 03/21/2022 ?? Well controlled ?? Continue current regimen ?? Per patient request willrefer to podiatry for ongoing diabetic footcare Social History Social History Type Response Smoking Status Former smoker entered on: 01/23/15 Sex Patient Care team information Care Team Personnel Name: Twyla Peace RN Position: [facility] RN Member Role: Primary Care Nurse Name: Fawn Ansari RN Position: S RN Member Role: Primary Care Nurse Name: Scott Christine RN Position: [facility] RN Member Role: Primary Care Nurse Name: [place] OBSTETRICS NURSE PRACTITIONER, Kelli Position: Reference Physician Member Role: PCP Address: Address: [address] [place] [address]- Care Team Related Persons Name: ENRIQUE MAN Address: [address] [place] [address]
--- OUTSIDE RECORDS SUMMARY | 2024-01-16 19:58 | XMS_ITS | Continuity of Care Document ---
Author Organization [facility] Address [address] [place] [address]- Care Team Providers Care Teacher Vocal Name Role Phone Sol VILLALOBOS, Kelli Primary [id number] Date(s[facility] 11/22/23 - 12/31/[address] [address] Attending Physician: Kelli Horton NP Admitting Physician: [...] 11 Refills, Maintenance, 04/08/22 9:09:00 EST, Aerosol, [facility], 2 puffs Inhalation 2 times [...] tablet, 11 Refills, Maintenance, 04/09/23 14:43:00 EST, [facility], 147.32, cm, 01/28/23 10:38:00 EST, [...] Maintenance, 08/28/23 15:44:00 EDT, [facility], [facility], 147.32, cm, 01/28/23 10:38:00 EST, [...] 9:29:34 EDT, Aerosol, Route to Pharmacy Electronically, [id number], [facility] - Start Date: 12/20/18 Status: Ordered Spiriva Respimat 1.25 mcg/inh inhalation aerosol 2 puffs, Inhalation, Daily, j44.9, # 1 each, 6 Refills, Maintenance, 02/27/22 19:09:00 EST, Aerosol, [facility] Start Date: 02/27/22 Status: Ordered [...] Hydrocodone t.i.d as needed. ?? Compliant with RECEIVING BARN CUSTODIAN agreement 3Outside Source Comment: Overview: ?? Followed [facility] Lora at [facility] ?? S/t JOSHUA 4Outside Source Comment: [...] Exam: [facility]ed [facility] in [place] Lipid panel: 03/2022 WNL ASCVD: LDL < 70 Statin: Yes ASA: No PATRICIA/ARB: Yes Encouraged regular aerobic exercise for improved glycemic control Encouraged daily foot checks Encouraged lean protein snacks and to avoid foods high in sugar and simple carbohydrates Treatment Goals: R3jcmwd: <7% FBG goal: <130 2 hour post [...] Team Personnel Name: Twyla Peace RN Position: [facility] RN Member Role: Primary Care Nurse Name: Fawn Ansari RN Position: S RN Member Role: Primary Care Nurse Name: Scott Christine RN Position: [facility] RN Member Role: Primary Care Nurse Name: [place] ORTHOPEDIC PHYSICIAN, Kelli Position: Reference Physician Member Role: PCP Address: Address: [address] [place] [address]- Care Team Related Persons Name: ENRIQUE MAN Address: home [address] [place] [address]
--- OUTSIDE RECORDS SUMMARY | 2024-01-16 19:58 | XMS_ITS ---
Author Organization [facility] Address [address] [place] [address] Care Team Providers Care Parcel Post Clerk Name Role Phone True VILLALOBOS, Nandini Primary Care Provider Unavailab Jason Valle Unavailable [phone] REASON FOR VISIT r/f request ursodiol MEDICATIONS Medication SIG (Take, Route, Fr equency, Duration) Notes Start Date End Date Status Ursodiol 250 MG 3 Orally Twice a day for 30 days 0 06/02/2023 Active Encounters Encounter Location Date Provider Diagnosis [facility] [address] [place] [address] 06/02/2023 Jason Lora PLAN OF TREATMENT Medication Medication Name Sig Start Date Stop Date Notes Ursodiol 250 MG 3 Orally Twice a day for 30 days Next Appt Details Provider Name:Jason Lora , 02/25/2024 09:00:00 AM, [address], [address], [place], [address],
--- OUTSIDE RECORDS SUMMARY | 2024-01-16 19:58 | XMS_ITS ---
Author Organization [facility] Address [address] [place] [address] Care Team Providers Care Play Back Operator Name Role Phone True VILLALOBOS, Nandini Primary Care Provider Unavailab Jason Valle Unavailable [phone] MEDICATIONS Medication SIG (Take, Route, Fr equency, Duration) Notes Start Date End Date Status Omeprazole 20 MG 1 Orally Every morni ng for 30 day(s) 07/02/2022 Active Encounters Encounter Location Date Provider Diagnosis [facility] [address] [place] [address] [address] [place] [address] 07/02/2023 Jason Lora PLAN OF TREATMENT Medication Medication Name Sig Start Date Stop Date Notes Omeprazole 20 MG 1 Orally Every morning for 30 day(s) 06/21 Next Appt Details Provider Name:Jason Lora , 02/25/2024 09:00:00 AM, [address], [address], [place], [address],
--- OUTSIDE RECORDS SUMMARY | 2024-01-16 19:59 | XMS_ITS | Patient Health Record ---
Author Organization [facility] Address [address] [place] [address] Care Team Providers Care Quiller Machine Fixer Name Role Phone Nandini Biswas NP Primary Care Provider UnavailJason Briceno Unavailable [phone] ALLERGIES No Known Allergies RESULTS Component Value Reference Range Notes Prothrombin Time INR Reviewed date:04/13/2023 06:39:26 PM Interpretation: Performing Lab:[facility], [address] [place] [id number] Notes/Report: Prothrombin Time 11.3 11.1-13.3 SEC INTERNATIONAL [...] Fetoprotein Reviewed date:04/15/2023 03:58:46 PM Interpretation: Performing Lab:[facility], [address] [place] [id number] Notes/Report: Alpha Fetoprotein 1.8 Reference Range: <6.1 The use of AFP as a tumor marker in females is not recommended. This test was performed using the Velasquez Cem chemiluminescent method. Values obtained from different assay methods cannot be used interchangeably. AFP levels, regardless of value, should not be interpreted as absolute evidence of the presence or absence of disease. THIS TEST WAS PERFORMED AT: [facility] [address] [place] [id number] NIMCO BETH MD REASON FOR REFERRAL No [...] malignant neoplasm of colon (Z12.11) Active confirmed 280143946 Problem Other cirrhosis of liver (K74.69) Active confirmed Problem Fatty liver (K76.0) Active confirmed Problem History of hepatitis C (Z86.19) Active confirmed 85463528536273 Problem Chronic gastritis without bleeding, unspecified gastritis type (K29.50) Active confirmed 6223942 VITAL SIGNS Temperature 97.3 degrees Fahrenheit 02/26/2023 Blood pressure diastolic 00 mm Hg 02/26/2023 Height 58 in 02/26/2023 Blood pressure systolic 000 mm Hg 02/26/2023 Weight 182 lbs 02/26/2023 BMI 38.03 kg/m2 02/26/2023 Encounters Encounter Location Date Provider Diagnosis [facility] [address] [place] [address] 02/26/2023 Jason Lora Fatty liver K76.0 ; Other cirrhosis of liver K74.69 and History of hepatitis C Z86.19 [facility] [address] [place] [address] 06/02/2023 Jason Lora [facility] [address] [place] [address] 07/02/2023 Jason Lora ASSESSMENTS Encounter Date Diagnosis Assessment Notes Treatment Notes Treatment Clinical Notes 02/26/2023 Other cirrhosis of liver (ICD-10 - K74.69) 02/26/2023 Fatty liver (ICD-10 - K76.0) 02/26/2023 History of hepatitis C (ICD-10 - Z86.19) PLAN OF TREATMENT Pending Test Test Name Order Date LIVER PROFILE 08/27/2012 LIVER PROFILE 09/15/2013 LIVER PROFILE 08/22/2021 LIVER PROFILE 07/03/2020 LIVER PROFILE 02/25/2022 CBC w DIFF 02/25/2022 CBC w DIFF 07/03/2020 PROTHROMBIN TIME (PT, INR) 07/03/2020 ALPHA-FETOPROTEIN,TUMOR MARKER 1 ALPHA-FETOPROTEIN,TUMOR MARKER 2 ALPHA-FETOPROTEIN,TUMOR MARKER 3 ALPHA-FETOPROTEIN,TUMOR MARKER 3 ALPHA-FETOPROTEIN,TUMOR MARKER 4 ALPHA-FETOPROTEIN,TUMOR MARKER 2 ALPHA-FETOPROTEIN,TUMOR MARKER 7 US ABD 03/12/2017 US ABD 07/03/2020 Prothrombin Time INR 02/25/2022 Prothrombin Time INR 02/26/2023 Future Test Test Name Order Date UPPER GI ENDOSCOPY 03/05/2018 COLONOSCOPY 03/05/2018 Next Appt Details Provider Name:Jason Lora , 02/25/2024 09:00:00 AM, [address], [address], [place], [address], Insurance Providers Payer Name Payer Address Payer Phone Subscriber Number Group Number Insured Name Patient Relationship to Insured Coverage Start Date Coverage End Date MEDICARE [place] [address] [place] [address] [id number] [id number] MAGUIRE Self - patient is the insured MEDICAID OF [employer] [address] [facility] [place] [address] [id number] TRUPTI MAGUIRE Self - patient is the [...] ursodiol 750 mg b.i.d. Asthma Anxiety Denies MD,CVA,renal disease Kidney stones Negative colonoscopy with Dr. Rodriguez in [place] Urinary incontinence Neg. screening colonoscopy in 04/2018 EGD in 04/2018 with erosive g astritis but neg. Hpylori, no varices, small to mod-sized hiatal hernia Surgical History Surgery Date(Month/Year) Tubal ligation Umbilical hernia surgery 03/2013-[facility]. [facility] Vocal cord polyps Bladder suspension by Dr Avelino lama in [place] for urinary incontinence on 09/19/13. Veins in her left leg Right knee replacement with Dr. Solorzano 2020
--- OUTSIDE RECORDS SUMMARY | 2024-01-16 19:59 | XMS_ITS ---
Author Organization [facility] Address [address] [place] [address] Care Team Providers Care Boiler Tube Blower Name Role Phone True VILLALOBOS, Nandini Primary Care Provider Jason Mcnulty Unavailable [phone] ALLERGIES No Known Allergies REASON FOR VISIT Patient presents today for a fatty liver,cirrhosis MEDICATIONS Medication SIG (Take, Route, Frequency, Duration) Notes Start Date End Date Status Ursodiol 250 MG 3 Orally Twice a day for 30 day(s) 06/02/2022 Active Omeprazole 20 MG 1 Orally Every morni ng for 30 day(s) 07/02/2022 Active tylenol Not-Taking ibuprofen Not-Taking SudoGest 30 MG Oral for 30 Act laura clonazePAM 0.5 MG Oral for 30 Active KlonoPIN 0.5 MG 1 tablet Orally Twic e a day Active traZODone HCl 150 MG 1 tablet at bedtime Orally Once a day Active ProAir HFA 108 (90 Base) MCG/ACT 2 puffs as needed Inhalation every 4 hrs Active Vitamin D 1000unit A ctive Flovent HFA 12mg Act laura oxyCODONE HCl 5 MG/5ML 5 ml as needed Or ally every 6 hrs Active Calcium 600 + D 600mg Active HYDROcodone-Acetaminophe n 5-500 MG 1 capsule as needed Orally every 6 hrs Active glipiZIDE XL 5mg Act laura metFORMIN HCl 500mg Active Singulair 10mg Activ e SOCIAL HISTORY Sex Assigned At : Social [...] Never (0 point) Points 1 Interpretation Negative VITAL SIGNS BMI 38.03 kg/m2 02/26/2023 Blood pressure systolic 000 mm Hg 02/27/20 23 Blood pressure diastolic 00 mm Hg 023 Height 58 in 02/26/2023 Temperature 97.3 degrees Fahrenheit 02/27/20 23 Weight 182 lbs 02/26/2023 Encounters Encounter Location Date Provider Diagnosis [facility] [address] [place] [address] 02/26/2023 Jason Lora Fatty liver K76.0 ; Other cirrhosis of liver K74.69 and History of hepatitis C Z86.19 ASSESSMENTS Encounter Date Diagnosis Assessment Notes Treatment Notes Treatment Clinical Notes 02/26/2023 Fatty liver (ICD-10 - K76.0) 02/26/2023 Other cirrhosis of liver (ICD-10 - K74.69) 02/26/2023 History of hepatitis C (ICD-10 - Z86.19) PLAN OF TREATMENT Pending Test Test Name Order Date ALPHA-FETOPROTEIN,TUMOR MARKER Prothrombin Time INR 02/26/2023 Next Appt Details Follow Up: 1 Year, Reason: Provider Name:Jason Lora , 02/25/2024 09:00:00 AM, [address], [address], [place], [address], Progress Notes * Examination Category Sub-Category Detail Notes General Examination GENERAL APPEARANCE: pleasant , well nourished, well developed, in no acute distress EYES: sclera non-icteric NECK/THYROID: no cervical lymphade nopathy, neck supple HEART: S1, S2 normal LUNGS: clear to auscultatio n bilaterally ABDOMEN: normal bowel sounds, no guarding or rigidity, no hepatosplenomegaly, no masses palpable, soft, nontender, nondistended. NEUROLOGIC: alert and oriented SKIN: nonjaundiced, no spi jose carlos angiomata. EXTREMITIES: no edema ORAL CAVITY: mucosa moist
[2024-01-16 20:03] LABS: Alanine Aminotransferase 37 U/L (0-31); Albumin Level 3.9 g/dL (3.5-5.0); Alkaline Phosphatase 98 U/L (39-117); Anion Gap 12 (12-20); Aspartate Amino Transferase 29 U/L (5-31); Bilirubin Total 0.2 mg/dL (0.0-1.0); Blood Urea Nitrogen 21 mg/dL (9-16); Calcium 9.3 mg/dL (8.4-10.2); Carbon Dioxide 29 mmol/L (22-29); Chloride 102 mmol/L (96-108); Creatinine Clr Calc Pharmacy 56.6; Estimated Glomerular Filt Rate > 60; Glucose Random 133 mg/dL (60-115); Magnesium 1.7 mg/dL (1.6-2.6); Potassium 3.7 mmol/L (3.3-5.1); Sodium 139 mmol/L (135-145)
[2024-01-16 20:13] LABS: Troponin-I High Sensitivity < 2.7 ng/L (<3.5-17.0)
[2024-01-16 20:32] LABS: Influenza A PCR NEGATIVE (Negative); Influenza B PCR NEGATIVE (Negative); Resp Syncy Virus RNA Qual PCR NEGATIVE (Negative); SARS COV2 PCR INHOUSE NEGATIVE (Negative)
[2024-01-16 22:29] VITALS: BP 129/67; PULSE 71; RESP 20; TEMP 36.9; O2SAT 98
[2024-01-16] MEDS: Benzonatate 100 MG CAPSULE PO (22:33)
[2024-01-16 22:46] VITALS: BP 129/67; PULSE 71; RESP 20; TEMP 36.9; O2SAT 98
== END 2024-01-16 22:46 | disposition home or self-care (01) ==
PROVIDERS: Physician Assistant Medical; Emergency Provider Emergency Medicine; PCP Registered Nurse
DX: J40 Bronchitis, not specified as acute or chronic (principal); J02.9 Acute pharyngitis, unspecified; Z03.818 Encounter for observation for suspected exposure to other biological agents ruled out; E11.9 Type 2 diabetes mellitus without complications; I10 Essential (primary) hypertension
CPT/HCPCS: 0241U; 36415; 71046; 80053; 83735; 84484; 85025; 87651; 93005; 99283

== ENCOUNTER → 2024-01-16 19:00 | Outpatient (BNV) | payer OTHER, SELFPAY | PROVIDERS: Emergency Provider Emergency Medicine; PCP Registered Nurse; Visit Provider Internal Medicine Cardiovascular Disease | DX: R94.31 Abnormal electrocardiogram [ECG] [EKG] (principal) | CPT/HCPCS: 93010 ==

== ENCOUNTER 2024-03-28 10:27 | Outpatient (AMB) | payer OTHER, SELFPAY ==
--- NOTE | 2024-03-28 10:39 | MHC.OFFVIS ---
Vital Signs 03/28/24 10:42 Height 4 ft 11 in Weight 195 lb BMI 39.4 BP 155/70 H Blood Pressure Location Lt brachial Position Sitting Pulse 55 Pulse Source Pulse Oximeter Pulse Oximetry (%) 95 Oxygen Delivery Method Room Air Intake Visit Reasons: MAC-TRIAL of Spinal Cord discussion Handkerchief Sample Clerk Required: Yes Handkerchief Sample Clerk Services: Handkerchief Sample Clerk Present Handkerchief Sample Clerk Name: Handkerchief Sample Clerk # [id number] Allergies No Known Allergies [No Known Allergies*] Allergy (Verified 03/28/24 10:40) Medication List - Last Reconciled 03/28/24 by Rae Reyez, PERCHER acetaminophen (Tylenol Extra Strength) 500 mg PO Q6H PRN albuterol sulfate 90 mcg/actuation 90 mcg inhalation Q4-6H PRN albuterol sulfate mg inhalation amlodipine 2.5 mg PO DAILY atorvastatin 20 mg PO DAILY azithromycin For 250 mg dose pack: take 500 mg today (day 1), then 250 mg for 4 days (days 2-5) benzonatate 100 mg PO TID PRN calcium carbonate-vitamin D3 600 mg-10 mcg (400 unit) 1 tab PO QAM celecoxib 0 mg PO clonazepam 0.5 mg PO DAILY PRN darifenacin ER 15 mg PO QAM docusate sodium 100 mg PO BID 14 days fluticasone propion-salmeterol 115-21 mcg/actuation 2 puffs inhalation BID fluticasone propionate 50 mcg/actuation 50 mcg intranasal BID lisinopril-hydrochlorothiazide 10-12.5 mg 1 tab PO DAILY loratadine 10 mg PO QAM metformin 500 mg PO QAM montelukast 10 mg PO DAILY morphine 15 mg PO Q6H PRN morphine ER (MS Contin) 15 mg PO Q12H 3 days naloxone 4 mg/actuation (Narcan) 0 sprays intranasal omeprazole 20 mg PO QAM oxycodone-acetaminophen 5-325 mg (Percocet) 1 tab PO Q4-6H PRN 7 days prednisone 40 mg (2 x 20 mg) PO DAILY 3 days prednisone 20 mg PO BID tiotropium bromide 1.25 mcg/actuation 2 puffs inhalation DAILY trazodone 300 mg PO BEDTIME ursodiol 750 mg PO BID vitamin E (dl, acetate) 180 mg PO DAILY HPI Comments Details: Ludivina is back in my office discuss RegBinder spinal cord stimulator to treat the pain in the right knee. Her psychiatrist wrote a note to us in which he approved her to receive spinal cord stimulator. I will schedule her for a trial [place] scientific spinal cord stimulator. It will be in lumbar epidural space, positioned in the right gutter. Risks and benefits were carefully explained to the patient, anesthesia for both trial and implantation were discussed with the patient. Prior: very pleasant pleasant 65 years old Ukrainian speaking only female who presents today with chronic right knee pain s/p right total knee replacement on 11/21/20. Multiple procedures were done to treat the pain of this patient. She went for total knee replacement, she had genicular nerve blocks with promising results however of the radiofrequency ablation resulted in pain aggravation and arm pain improvement. When patient came to me after radiofrequency ablation I offered her to consider [place] scientific spinal cord stimulator to treat the pain of her knee. Patient today in my office expressing agreement to go for the [place] scientific trial of spinal cord stimulator. I will schedule her for the trial of [place] scientific spinal cord stimulator as soon as her psychologist or psychiatrist will give us a clearance in standpoint of psychological evaluation. If her psychologist or psychiatrist will not be able to do that we will send her for evaluation with [facility] psychology. [facility] Medical History (Updated 03/28/24 @ 11:00 by Lauro Sen MD) Primary osteoarthritis of left knee Osteoarthritis of hands, bilateral History of COVID-19 RBBB Hx of hepatitis C Asthma Anxiety Elevated cholesterol COVID-19 vaccine series completed JUSTIN (obstructive sleep apnea) Chronic kidney disease Depression Other intervertebral disc displacement, lumbar region Spondylosis of lumbar spine Lumbar facet arthropathy Bilateral primary osteoarthritis of knee Renal stones Essential hypertension Type 2 diabetes mellitus with complication, without long-term current use of insulin Vitamin D deficiency Other chronic pain History of renal calculi Surgical History History of total right knee replacement (TKR) Hx of dilation and curettage History of laryngoscopy Hx of umbilical hernia repair Hx of arthroscopy of left knee Hx of lithotripsy History of esophagogastroduodenoscopy (EGD) S/P repair of ventral hernia H/O abdominal hysterectomy H/O tubal ligation History of colonoscopy Family History Father Diabetes mellitus HTN (hypertension) Mother No problems noted. 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 Review of Systems Const All systems reviewed & are unremarkable except as noted in HPI and below ENT Reports Normal hearing present Neuro Reports Normal hearing present, Denies confusion and Denies Sensory deficit (Neuro) Psych Denies confusion Physical Exam Vital Signs: Last Vital Signs Pulse 55 03/28/24 10:42 BP 155/70 H 03/28/24 10:42 Pulse Ox 95 03/28/24 10:42 Oxygen Delivery Method Room Air 03/28/24 10:42 BMI result Body Mass Index 39.4 Const General: No confusion Nutritional Appearance: obese Orientation/consciousness: No confusion Limitations: language barrier and ambulation with cane HEENT Head: Yes normal to inspection, Yes normocephalic and Yes atraumatic Ears: hearing grossly normal bilaterally Face and sinus: Yes normal facial exam and Yes face symmetric Eyes General: appearance normal, both eyes and all related structures EOM: EOMs intact bilaterally Neck Neck: Yes normal visual inspection, Yes full ROM and Yes no lymphadenopathy Resp Effort & Inspection: normal respiratory effort, able to speak in complete sentences, no audible wheezes, no cough, no respiratory distress and symmetric chest movement Cardio Jugular venous distension: no JVD Bruits: no carotid bruits Peripheral pulses: Peripheral pulses 2+ throughout GI Inspection: Yes normal to inspection, No distended and Yes obesity General: Yes no CVA tenderness Back/Spine/Pelvis Back: no CVA tenderness Cervical Spine: cervical ROM normal and No Cervical spine tenderness Thoracic/Lumbar Spine: thoracic and lumbar spine normal to inspection, thoraco-lumbar ROM normal, paraspinal muscle tenderness, No thoracic spinal tenderness and No lumbar spinal tenderness Skin General skin exam: no rashes or lesions noted Neuro General: No confusion Cranial nerves: Yes Normal hearing present Gait exam (Neuro): Antalgic gait present and Assistive device used Sensory Exam: No Sensory deficit (Neuro) Extrem Other: Right knee: Tender to palpation over medial joint line tenderness and patella. Normal scarring s/p TKA 11/2020. Pale discoloration on the anterior surface of the right knee. The circumference of the right thigh is visibly smaller than circumference of the left thigh. Normal pulses bilaterally. There is significant atrophy of the lower leg muscles compared to the left. General: Yes capillary refill normal, Yes no clubbing, cyanosis or edema and Yes no calf tenderness Left lower extremity: knee Details: tenderness Location: of the patella, of the medial joint line and of the infrapatellar area and normal ROM; no swelling Psych Appearance: grossly normal Mental Status: mental status grossly normal Speech and movement: Normal speech and movement present and Clear speech present Affect: normal affect and Anxious affect present Attitude: cooperative Thought process: Normal thought process present Thought content: Normal thought content present Insight: Good insight present (Psych) Judgement: Good judgement present (Psych) Assessment & Plan Assessment & Plan (1) Primary osteoarthritis of left knee: Code(s): M17.12 - Unilateral primary osteoarthritis, left knee Category: Medical (2) Chronic pain syndrome: Code(s): G89.4 - Chronic pain syndrome Category: Medical (3) Right knee pain: Code(s): M25.561 - Pain in right knee Category: Medical (4) Primary osteoarthritis of right knee: Code(s): M17.11 - Unilateral primary osteoarthritis, right knee Category: Medical (5) Status post total right knee replacement: Code(s): Z96.651 - Presence of right artificial knee joint Category: Surgical (6) Localized osteoarthritis of left knee: Code(s): M17.12 - Unilateral primary osteoarthritis, left knee Category: Medical (7) Complex regional pain syndrome i of right lower limb: Code(s): G90.521 - Complex regional pain syndrome I of right lower limb Category: Medical Plan This patient failed conservative as well as interventional pain management to alleviate pain in the left knee. It looks like that she is developing Complex regional pain syndrome of the left lower extremity at this time. She has pale discoloration of the skin of the right lower leg below the level of the knee, she also reports that muscles are weaker and thinner on the right lower extremity where she had total knee replacement. With the diagnosis of Complex regional pain syndrome I will schedule her of for trial of RegBinder spinal cord stimulator . Her psychiatrist cleared her for neuromodulation procedure. Risks and benefits were carefully explained to the patient. The patient will be scheduled for the trial under sedation. Anticoagulation: Patient is not on anticoagulation. Patient Instructions: I here by testify that I spent 32 minutes in conversation with this patient as well as planning her care and organizing this note. motor vehicle parts interpreter Laz #[id number] was interpreting this conversation. Coding Level of Care Code Est Pt Level 4 (58978) Diagnoses Primary osteoarthritis of left knee M17.12 Chronic pain syndrome G89.4 Right knee pain M25.561 Primary osteoarthritis of right knee M17.11 Status post total right knee replacement Z96.651 Localized osteoarthritis of left knee M17.12 Complex regional pain syndrome i of right lower limb G90.521
[2024-03-28 10:42] VITALS: BP 155/70; PULSE 55; O2SAT 95; BMI 39.4
--- OUTSIDE RECORDS SUMMARY | 2024-03-28 11:29 | XMS_ITS | Patient Health Record ---
Author Organization [facility] Address [address] [place] [address] Care Team Providers Care Lock Fitter Name Role Phone [facility] STEAM PIPE FITTER, Kelli Primary Care Provider Unava ilglenn Jason Lora Unavailable [phone] ALLERGIES No Known Allergies RESULTS Component Value Reference Range Notes Prothrombin Time INR Reviewed date:04/13/2023 06:39:26 PM Interpretation: Performing Lab:[facility], [address] [place] [id number] Notes/Report: Prothrombin Time 11.3 11.1-13.3 SEC [employer]NATIONAL [...] Reviewed date:04/15/2023 03:58:46 PM Interpretation: Performing Lab:[facility], [address] [place] [id number] Notes/Report: Alpha Fetoprotein 1.8 Reference Range: <6.1 The use of AFP as a tumor marker in females is not recommended. This test was performed using the [employer] [place] chemiluminescent method. Values obtained from different assay methods cannot be used interchangeably. AFP levels, regardless of value, should not be interpreted as absolute evidence of the presence or absence of disease. THIS TEST WAS PERFORMED AT: [address] [place] [id number] NIMCO BETH MD REASON FOR REFERRAL No Information MEDICATIONS Medication SIG (Take, Route, Frequency, Duration) Notes Start Date End Date Status traZODone HCl 150 MG 1 tablet at bedtime Orally Once a day Active metFORMIN HCl 500mg Active HYDROcodone-Acetaminophe n 5-500 MG 1 capsule as needed Orally every 6 hrs Active tylenol Not-Taking oxyCODONE HCl 5 MG/5ML 5 ml as needed Or ally every 6 hrs Active ProAir HFA 108 (90 Base) MCG/ACT 2 puffs as needed Inhalation every 4 hrs Active KlonoPIN 0.5 MG 1 tablet Orally Twic e a day Active glipiZIDE XL 5mg Act laura Ursodiol 250 MG 3 Orally Twice a day for 30 day(s) 06/02/2022 Active Flovent HFA 12mg Act laura Ursodiol 250 MG 3 Orally Twice a day for 30 days 06/02/2023 Active Vitamin D 1000unit A ctive Omeprazole 20 MG 1 Orally Every morni ng for 30 day(s) 07/02/2022 Active Calcium 600 + D 600mg Active ibuprofen Not-Taking SudoGest 30 MG Oral for 30 Act laura Singulair 10mg Activ e clonazePAM 0.5 MG Oral for 30 Active IMMUNIZATIONS Vaccine Route Administration Date Status [...] malignant neoplasm of colon (Z12.11) Active confirmed [id number] Problem Other cirrhosis of liver (K74.69) Active confirmed Problem Fatty liver (K76.0) Active confirmed Problem History of hepatitis C (Z86.19) Active confirmed [id number] Problem Chronic gastritis without bleeding, unspecified gastritis type (K29.50) Active confirmed 5429290 VITAL SIGNS Blood pressure diastolic 00 mm Hg 02/25/2024 Height 58 in 02/25/2024 Blood pressure systolic 00 mm Hg 02/25/2024 Weight 185 lbs 02/25/2024 BMI 38.66 kg/m2 02/25/2024 Encounters Encounter Location Date Provider Diagnosis [facility] [address] [place] [phone] 02/25/2024 Jason Lora Other cirrhosis of liver K74.69 ; History of hepatitis C Z86.19 and Fatty liver K76.0 [facility] [address] [place] [phone] 06/02/2023 Jason Lora [facility] [address] [place] [phone] 07/02/2023 Jason Lora ASSESSMENTS Encounter Date Diagnosis Assessment Notes Treatment Notes Treatment Clinical Notes 02/25/2024 Other cirrhosis of liver (ICD-10 - K74.69) 02/25/2024 History of hepatitis C (ICD-10 - Z86.19) 02/25/2024 Fatty liver (ICD-10 - K76.0) PLAN OF TREATMENT Pending Test Test Name Order Date LIVER PROFILE 02/25/2022 LIVER PROFILE 02/25/2024 LIVER PROFILE 08/27/2012 LIVER PROFILE 09/15/2013 LIVER PROFILE 08/22/2021 LIVER PROFILE 07/03/2020 CBC w DIFF 02/25/2022 CBC w DIFF 02/25/2024 CBC w DIFF 07/03/2020 PROTHROMBIN TIME (PT, INR) 07/03/2020 ALPHA-FETOPROTEIN,TUMOR MARKER 7 ALPHA-FETOPROTEIN,TUMOR MARKER 1 ALPHA-FETOPROTEIN,TUMOR MARKER 3 ALPHA-FETOPROTEIN,TUMOR MARKER 2 ALPHA-FETOPROTEIN,TUMOR MARKER 4 ALPHA-FETOPROTEIN,TUMOR MARKER 4 ALPHA-FETOPROTEIN,TUMOR MARKER 3 ALPHA-FETOPROTEIN,TUMOR MARKER 2 HEPATITIS C VIRAL LOAD 02/25/2024 US ABD 03/12/2017 US ABD 07/03/2020 HCV LIVER FIBROSIS, FIBRO TEST 4 Prothrombin Time INR 02/26/2023 Prothrombin Time INR 02/25/2024 Prothrombin Time INR 02/25/2022 US abdomen comp w elastography 4 Future Test Test Name Order Date UPPER GI ENDOSCOPY 03/05/2018 COLONOSCOPY 03/05/2018 Next Appt Details Provider Name:Jason Lora , 02/23/2025 09:20:00 AM, [address], [address], [place], [address], Insurance Providers Payer Name Payer Address Payer Phone Subscriber Number Group Number Insured Name Patient Relationship to Insured Coverage Start Date Coverage End Date [facility] Claims [address] [address] [place] [address] [id number] TRUPTI MAGUIRE Self - patient is the insured [place] [address] [place] [address] [id number] TRUPTI MAGUIRE Self - patient is the [...] ursodiol 750 mg b.i.d. Asthma Anxiety Denies ID,CVA,renal disease Kidney stones Negative colonoscopy with Dr. Rodriguez in [place] Urinary incontinence Neg. screening colonoscopy in 04/2018 EGD in 04/2018 with erosive g astritis but neg. Hpylori, no varices, small to mod-sized hiatal hernia Surgical History Surgery Date(Month/Year) Tubal ligation Umbilical hernia surgery 03/2013-Dr. Annel magana Vocal cord polyps Bladder suspension by Dr Avelino lama in [place] for urinary incontinence on 09/19/13. Veins in her left leg Right knee replacement with Dr. Solorzano 2020
--- OUTSIDE RECORDS SUMMARY | 2024-03-28 11:29 | XMS_ITS ---
Author Organization [facility] Address [address] [place] [address] Care Team Providers Care Metal Buggy Operator Name Role Phone [facility] [place] Primary Care Provider Unava Jason Sethi Unavailable [phone] MEDICATIONS Medication SIG (Take, Route, Fr equency, Duration) Notes Start Date End Date Status Omeprazole 20 MG 1 Orally Every morni ng for 30 day(s) 07/02/2022 Active Encounters Encounter Location Date Provider Diagnosis [facility] [address] [place] [address] 07/02/2023 Jason Lora PLAN OF TREATMENT Medication Medication Name Sig Start Date Stop Date Notes Omeprazole 20 MG 1 Orally Every morning for 30 day(s) 06/21 Next Appt Details Provider Name:Jason Lora , 02/23/2025 09:20:00 AM, [address], [address], [place], [address],
--- OUTSIDE RECORDS SUMMARY | 2024-03-28 11:29 | XMS_ITS ---
Author Organization [facility] Address [address] [place] [address] Care Team Providers Care Route Sales Trainee Name Role Phone [facility] [place] Primary Care Provider UnaJason [place] Unavailable [phone] REASON FOR VISIT r/f request ursodiol MEDICATIONS Medication SIG (Take, Route, Fr equency, Duration) Notes Start Date End Date Status Ursodiol 250 MG 3 Orally Twice a day for 30 days 0 06/02/2023 Active Encounters Encounter Location Date Provider Diagnosis [facility] [address] [place] [address] 06/02/2023 Jason Lora PLAN OF TREATMENT Medication Medication Name Sig Start Date Stop Date Notes Ursodiol 250 MG 3 Orally Twice a day for 30 days Next Appt Details Provider Name:Jason Lora , 02/23/2025 09:20:00 AM, [address], [address], [place], [address],
== END 2024-03-28 10:52 | disposition home or self-care (01) ==
PROVIDERS: PCP Registered Nurse; Visit Provider Anesthesiology
DX: M17.0 Bilateral primary osteoarthritis of knee (principal); G89.4 Chronic pain syndrome; M25.561 Pain in right knee; Z96.651 Presence of right artificial knee joint; G90.521 Complex regional pain syndrome I of right lower limb
CPT/HCPCS: 99214

== ENCOUNTER → 2024-03-28 10:27 | Outpatient (BNVA) | payer OTHER, SELFPAY | PROVIDERS: PCP Registered Nurse; Visit Provider Anesthesiology | DX: M17.12 Unilateral primary osteoarthritis, left knee (principal); M25.561 Pain in right knee; M17.11 Unilateral primary osteoarthritis, right knee; G90.521 Complex regional pain syndrome I of right lower limb; G89.4 Chronic pain syndrome; Z96.651 Presence of right artificial knee joint | CPT/HCPCS: 99212 ==

== ENCOUNTER 2024-03-29 09:39 | Outpatient (AMB) | payer OTHER, SELFPAY ==
--- NOTE | 2024-03-29 09:43 | MHC.OFFVIS ---
Vital Signs 03/29/24 09:45 Height 4 ft 11 in Weight 196 lb 3.382 oz BMI 39.6 BP 118/78 Blood Pressure Location Lt brachial Position Sitting Pulse 58 Pulse Source Pulse Oximeter Pulse Oximetry (%) 98 Oxygen Delivery Method Room Air Intake Visit Reasons: moderate asthma Sand Carrier Required: Yes Sand Carrier Services: Sand Carrier Present Sand Carrier Name: Sand Carrier number [id number] Allergies No Known Allergies [No Known Allergies*] Allergy (Verified 03/29/24 09:44) Medication List - Last Reconciled 03/29/24 by Rae Reyez, PACKING AND WRAPPING SUPERVISOR acetaminophen (Tylenol Extra Strength) 500 mg PO Q6H PRN albuterol sulfate 90 mcg/actuation 90 mcg inhalation Q4-6H PRN albuterol sulfate mg inhalation amlodipine 2.5 mg PO DAILY atorvastatin 20 mg PO DAILY azithromycin For 250 mg dose pack: take 500 mg today (day 1), then 250 mg for 4 days (days 2-5) benzonatate 100 mg PO TID PRN calcium carbonate-vitamin D3 600 mg-10 mcg (400 unit) 1 tab PO QAM celecoxib 0 mg PO clonazepam 0.5 mg PO DAILY PRN darifenacin ER 15 mg PO QAM docusate sodium 100 mg PO BID 14 days fluticasone propion-salmeterol 115-21 mcg/actuation 2 puffs inhalation BID fluticasone propionate 50 mcg/actuation 50 mcg intranasal BID lisinopril-hydrochlorothiazide 10-12.5 mg 1 tab PO DAILY loratadine 10 mg PO QAM metformin 500 mg PO QAM montelukast 10 mg PO DAILY morphine 15 mg PO Q6H PRN morphine ER (MS Contin) 15 mg PO Q12H 3 days naloxone 4 mg/actuation (Narcan) 0 sprays intranasal omeprazole 20 mg PO QAM oxycodone-acetaminophen 5-325 mg (Percocet) 1 tab PO Q4-6H PRN 7 days prednisone 40 mg (2 x 20 mg) PO DAILY 3 days prednisone 20 mg PO BID tiotropium bromide 1.25 mcg/actuation 2 puffs inhalation DAILY trazodone 300 mg PO BEDTIME ursodiol 750 mg PO BID vitamin E (dl, acetate) 180 mg PO DAILY HPI HPI moderate asthma: Details: 68-year-old lady, former greater than 40 pack-year smoker, quit 2021, also with underlying history of asthma since childhood referred for evaluation of her pulmonary concerns. Patient states that she has been using Advair and albuterol MDI with suboptimal control of her asthma and dyspnea on exertion symptoms. She denies prior family history of lung disease. She denies exposure to industrial dusts. Patient does complain of environmental allergies. She also carries diagnosis of obstructive sleep apnea and has CPAP machine, however she has not had supplies for it for the last 4 years. [facility] Medical History (Updated 03/29/24 @ 10:04 by Chaparro Jeffers MD) Primary osteoarthritis of left knee Osteoarthritis of hands, bilateral History of COVID-19 RBBB Hx of hepatitis C Asthma Anxiety Elevated cholesterol COVID-19 vaccine series completed JUSTIN (obstructive sleep apnea) Chronic kidney disease Depression Other intervertebral disc displacement, lumbar region Spondylosis of lumbar spine Lumbar facet arthropathy Bilateral primary osteoarthritis of knee Renal stones Essential hypertension Type 2 diabetes mellitus with complication, without long-term current use of insulin Vitamin D deficiency Other chronic pain History of renal calculi Surgical History History of total right knee replacement (TKR) Hx of dilation and curettage History of laryngoscopy Hx of umbilical hernia repair Hx of arthroscopy of left knee Hx of lithotripsy History of esophagogastroduodenoscopy (EGD) S/P repair of ventral hernia H/O abdominal hysterectomy H/O tubal ligation History of colonoscopy Family History Father Diabetes mellitus HTN (hypertension) Mother No problems noted. 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 Review of Systems Const Reports daytime sleepiness, Denies excessive sweating, Denies fatigue, Denies fever(s), Denies lethargy, Reports malaise, Denies night sweats, Denies snoring and Denies weight loss Eyes Denies blurry vision and Denies itchy eyes ENT Denies nasal congestion, Denies post nasal drip, Denies sinus pain, Denies sinus pressure and Denies other ( Thrush) Card Denies chest pain, Denies pedal edema, Denies dyspnea, Reports dyspnea on exertion, Denies orthopnea and Denies paroxysmal nocturnal dyspnea Resp Denies cough, Denies hemoptysis, Denies excessive phlegm production, Denies dyspnea, Reports dyspnea on exertion, Denies snoring and Denies wheezing GI Denies abdominal pain and Denies heartburn Musc Denies myalgias, Denies arthralgias and Denies joint swelling Skin/Breast Denies rash Neuro Denies memory loss and Denies seizure-like activity Psych Denies abnormal sleep pattern, Denies anxiety and Denies memory loss Endo Denies excessive sweating, Denies fatigue and Denies heat intolerance Brandon/Lymph Denies easy bruising Aller/Immun Denies itchy eyes, Denies seasonal rhinorrhea and Denies wheezing Physical Exam Vital Signs: Last Vital Signs Pulse 58 03/29/24 09:45 BP 118/78 03/29/24 09:45 Pulse Ox 98 03/29/24 09:45 Oxygen Delivery Method Room Air 03/29/24 09:45 BMI result Body Mass Index 39.6 Const General: no acute distress and alert Nutritional Appearance: obese Orientation/consciousness: Other orientation findings ( oriented) HEENT Head: Yes atraumatic Eyes General: appearance normal, both eyes and all related structures Sclerae: sclerae normal EOM: EOMs intact bilaterally Neck Neck: Yes supple Lymphatic: no lymphadenopathy noted Resp Effort & Inspection: normal respiratory effort and no use of accessory muscles Auscultation: clear to auscultation bilaterally Cardio Rate: regular rate Rhythm: regular rhythm Heart sounds: no gallops, no murmurs and no rubs Skin General skin exam: other ( warm) Extrem General: No clubbing, No cyanosis and No edema Assessment & Plan Assessment & Plan (1) Asthma-COPD overlap syndrome: Code(s): J44.89 - Other specified chronic obstructive pulmonary disease Category: Medical Plan: Suboptimal control on Advair, will switch to Trelegy. Will obtain full PFT. May also have underlying immunologic component from environmental allergies. Continue albuterol MDI. (2) Personal history of nicotine dependence: Code(s): Z87.891 - Personal history of nicotine dependence Category: Medical Plan: Will obtain lung cancer screening CT chest. (3) JUSTIN (obstructive sleep apnea): Code(s): G47.33 - Obstructive sleep apnea (adult) (pediatric) Category: Medical Plan: Will obtain sleep study information from patient's primary care provider. Orders: Orders PFT pulmonary function test Today J44.89 - Other specified chronic obstructive pulmonary disease CT lung screening Today Z87.891 - Personal history of nicotine dependence Medications: New okqborimlmi-nchyqguti-fhpblgzw 200-62.5-25 mcg (Trelegy Ellipta) 1 inh inhalation DAILY 1 ea 6RF Coding Level of Care Code New Pt Level 4 (63421) Diagnoses Asthma-COPD overlap syndrome J44.89 Personal history of nicotine dependence Z87.89 JUSTIN (obstructive sleep apnea) G47.33
[2024-03-29 09:45] VITALS: BP 118/78; PULSE 58; O2SAT 98; BMI 39.6
--- OUTSIDE RECORDS SUMMARY | 2024-03-29 10:00 | XMS_ITS ---
Author Organization [facility] Address [address] [place] [address] Care Team Providers Care Colliery Clerk Name Role Phone [facility] [place] Primary Care Provider Shivani kellogg Jason Lora Unavailable [phone] ALLERGIES No Known Allergies REASON FOR VISIT Patient presents today for a fatty liver,cirrhosis MEDICATIONS Medication SIG (Take, Route, Frequency, Duration) Notes Start Date End Date Status HYDROcodone-Acetaminophe n 5-500 MG 1 capsule as needed Orally every 6 hrs Active oxyCODONE HCl 5 MG/5ML 5 ml as needed Or ally every 6 hrs Active Flovent HFA 12mg Act laura Vitamin D 1000unit A ctive Calcium 600 + D 600mg Active metFORMIN HCl 500mg Active tylenol Not-Taking glipiZIDE XL 5mg Act laura ibuprofen Not-Taking Singulair 10mg Activ e Ursodiol 250 MG 3 Orally Twice a day for 30 day(s) 06/02/2022 Active Ursodiol 250 MG 3 Orally Twice a day for 30 days 06/02/2023 Active Omeprazole 20 MG 1 Orally Every morni ng for 30 day(s) 07/02/2022 Active SudoGest 30 MG Oral for 30 Act laura clonazePAM 0.5 MG Oral for 30 Active traZODone HCl 150 MG 1 tablet at bedtime Orally Once a day Active ProAir HFA 108 (90 Base) MCG/ACT 2 puffs as needed Inhalation every 4 hrs Active KlonoPIN 0.5 MG 1 tablet Orally Twic e a day Active SOCIAL HISTORY Sex Assigned At : Social [...] Points 1 Interpretation Negative VITAL SIGNS BMI 38.66 kg/m2 02/25/2024 Blood pressure systolic 00 mm Hg 02/25/20 24 Blood pressure diastolic 00 mm Hg 024 Height 58 in 02/25/2024 Weight 185 lbs 02/25/2024 Encounters Encounter Location Date Provider Diagnosis [facility] [address] [place] [address] 02/25/2024 Jason Lora Other cirrhosis of liver K74.69 ; History of hepatitis C Z86.19 and Fatty liver K76.0 ASSESSMENTS Encounter Date Diagnosis Assessment Notes Treatment Notes Treatment Clinical Notes 02/25/2024 Other cirrhosis of liver (ICD-10 - K74.69) 02/25/2024 History of hepatitis C (ICD-10 - Z86.19) 02/25/2024 Fatty liver (ICD-10 - K76.0) PLAN OF TREATMENT Pending Test Test Name Order Date LIVER PROFILE 02/25/2024 CBC w DIFF 02/25/2024 ALPHA-FETOPROTEIN,TUMOR MARKER 4 HEPATITIS C VIRAL LOAD 02/25/2024 HCV LIVER FIBROSIS, FIBRO TEST 4 Prothrombin Time INR 02/25/2024 US abdomen comp w elastography 4 Next Appt Details Follow Up: 1 Year, Reason: Provider Name:Jason Lora , 02/23/2025 09:20:00 AM, [address], [address], [place], [address], Progress Notes * Examination Category Sub-Category Detail [...]
--- OUTSIDE RECORDS SUMMARY | 2024-03-29 10:00 | XMS_ITS ---
Author Organization [facility] Address [address] [place] [address] Care Team Providers Care Supervisor Core Shop Name Role Phone [facility] [place] Primary Care Provider UnaJason Birmingham Unavailable [phone] REASON FOR VISIT r/f request ursodiol MEDICATIONS Medication SIG (Take, Route, Fr equency, Duration) Notes Start Date End Date Status Ursodiol 250 MG 3 Orally Twice a day for 30 days 0 06/02/2023 Active Encounters Encounter Location Date Provider Diagnosis [facility] [address] [place] [address] 06/02/2023 Jason Lora PLAN OF TREATMENT Medication Medication Name Sig Start Date Stop Date Notes Ursodiol 250 MG 3 Orally Twice a day for 30 days Next Appt Details Provider Name:Jason Lora , 02/23/2025 09:20:00 AM, [address], [address], [place], [address],
--- OUTSIDE RECORDS SUMMARY | 2024-03-29 10:00 | XMS_ITS ---
Author Organization [facility] Address [address] [place] [address] Care Team Providers Care Molder Wax Ball Name Role Phone [facility] [place] Primary Care Provider Unava Jason Sethi Unavailable [phone] MEDICATIONS Medication SIG (Take, Route, Fr equency, Duration) Notes Start Date End Date Status Omeprazole 20 MG 1 Orally Every morni ng for 30 day(s) 07/02/2022 Active Encounters Encounter Location Date Provider Diagnosis [facility] [address] [place] [address] 07/02/2023 Jason Lora PLAN OF TREATMENT Medication Medication Name Sig Start Date Stop Date Notes Omeprazole 20 MG 1 Orally Every morning for 30 day(s) 06/21 Next Appt Details Provider Name:Jason Lora , 02/23/2025 09:20:00 AM, [address], [address], [place], [address],
--- OUTSIDE RECORDS SUMMARY | 2024-03-29 10:01 | XMS_ITS | Patient Health Record ---
Author Organization [facility] Address [address] [place] [address] Care Team Providers Care Technical Trainer Name Role Phone [facility], Kelli Primary Care Provider Unava ilglenn Jason Lora Unavailable [phone] ALLERGIES No Known Allergies RESULTS Component Value Reference Range Notes Prothrombin Time INR Reviewed date:04/13/2023 06:39:26 PM Interpretation: Performing Lab:[facility], [address] [place] [id number] Notes/Report: Prothrombin Time 11.3 11.1-13.3 SEC [employer]NATIONAL [...] Fetoprotein Reviewed date:04/15/2023 03:58:46 PM Interpretation: Performing Lab:[facility], [address] [place] [id number] Notes/Report: Alpha Fetoprotein 1.8 Reference Range: <6.1 The use of AFP as a tumor marker in females is not recommended. This test was performed using the Velasquez [place] chemiluminescent method. Values obtained from different assay methods cannot be used interchangeably. AFP levels, regardless of value, should not be interpreted as absolute evidence of the presence or absence of disease. THIS TEST WAS PERFORMED AT: [facility] [address] [place] [phone] NIMCO BETH MD REASON FOR REFERRAL No [...] malignant neoplasm of colon (Z12.11) Active confirmed [id number] Problem Other cirrhosis of liver (K74.69) Active confirmed Problem Fatty liver (K76.0) Active confirmed Problem History of hepatitis C (Z86.19) Active confirmed [id number] Problem Chronic gastritis without bleeding, unspecified gastritis type (K29.50) Active confirmed [id number] VITAL SIGNS Blood pressure diastolic 00 mm Hg 02/25/2024 Height 58 in 02/25/2024 Blood pressure systolic 00 mm Hg 02/25/2024 Weight 185 lbs 02/25/2024 BMI 38.66 kg/m2 02/25/2024 Encounters Encounter Location Date Provider Diagnosis [facility] [address] [place] [address] 02/25/2024 Jason Lora Other cirrhosis of liver K74.69 ; History of hepatitis C Z86.19 and Fatty liver K76.0 [facility] [address] [place] [address] 06/02/2023 Jason Lora [facility] [address] [place] [address] 07/02/2023 Jason Lora ASSESSMENTS Encounter Date Diagnosis [...] 09:20:00 AM, [address], [address], [place], [address], Insurance Providers Payer Name Payer Address Payer Phone Subscriber Number Group Number Insured Name Patient Relationship to Insured Coverage Start Date Coverage End Date [facility] Claims [address] [address] [place] [address] [id number] TRUPTI MAGUIRE Self - patient is the insured MEDICA[employer] OF [place] [address] [place] [address] [id number] RTUPTI MAGUIRE Self - patient is the insured [...] ursodiol 750 mg b.i.d. Asthma Anxiety Denies [place],CVA,renal disease Kidney stones Negative colonoscopy with Dr. Rodriguez in [place] Urinary incontinence Neg. screening colonoscopy in 04/2018 EGD in 04/2018 with erosive g astritis but neg. Hpylori, no varices, small to mod-sized hiatal hernia Surgical History Surgery Date(Month/Year) Tubal ligation Umbilical hernia surgery 03/2013-Dr. Annel magana Vocal cord polyps Bladder suspension by Dr Avelino lama in [place] for urinary incontinence on 09/19/13. Veins in her left leg Right knee replacement with Dr. Solorzano 2020
== END 2024-03-29 10:07 | disposition home or self-care (01) ==
PROVIDERS: PCP Registered Nurse; Visit Provider Internal Medicine Pulmonary Disease
DX: J44.89 Other specified chronic obstructive pulmonary disease (principal); Z87.891 Personal history of nicotine dependence; G47.33 Obstructive sleep apnea (adult) (pediatric)
CPT/HCPCS: 99204

== ENCOUNTER 2024-03-29 10:10 | Outpatient (REF) | payer OTHER, SELFPAY ==
--- NOTE | 2024-03-29 10:43 | PFT_ITS ---
Flows: FEV1: 101 % of predicted at 1.89 L FVC: 86 % of predicted at 2.03 L FEV1/FVC: 93 % Bronchodilator response: Absent Volumes: Total lung capacity: 78 % of predicted at 3.13 L Residual volume: 65 % of predicted at 0.99 L Slow vital capacity: 84 % of predicted at 2.14 L Expiratory reserve volume: 0 % of predicted at 0 L Diffusion capacity: Normal Impression: Mild restrictive ventilatory defect with no bronchodilator response. Decreased expiratory reserve volume suggests extrathoracic restriction likely secondary to abdominal obesity. MTDD
== END 2024-03-29 10:11 | disposition home or self-care (01) ==
LOC: HO.RESP 10:10
PROVIDERS: Visit Provider Internal Medicine Pulmonary Disease
DX: J44.89 Other specified chronic obstructive pulmonary disease (principal); Z87.891 Personal history of nicotine dependence; G47.33 Obstructive sleep apnea (adult) (pediatric)
CPT/HCPCS: 94010; 94640; 94727; 94729; 99202

== ENCOUNTER 2024-04-05 10:36 | Outpatient (RCR) | payer OTHER, SELFPAY ==
--- NOTE | 2024-04-05 12:18 | MHC.PT.DC ---
[facility] [place] Office [place] Office [place] Office [address] [place] [address] [phone] F: [phone] F: [phone] F: [phone] F: [phone] Physical Therapy Discharge Report Diagnosis: Rt SHOULDER PAIN Date of Surgery: Date of Evaluation: 04/05/24 Date of Discharge: 04/05/24 Treatments to Date: 1 Cancellations to Date: No Shows to Date: Discharge Status: Discharge Summary: 68 YO FEMALE REF TO PT FOR Rt SH PAIN- THE Pt PRESENTED NOTING IN DEC 2023 SHE HAD RESPIRATORY SXS AND A SIGNIF COUGH, WHICH SHE FEELS AGGRAV HER Rt PECT AREA SXS- SHE PRESENTED FOR HER PT EVAL THIS DATE, DENYING Rt SH PAIN OR SXS, WNL AROM AND DECENT Rt SH COMPLEX STRENGTH - TRUPTI AMB W A QUAD CANE HELD IN HER RIGHT HAND, WHICH I RE-ADJUSTED THE HEIGHT OF TODAY TO REDUCE STRESS ON Rt SH COMPLEX. SHE STATED SHE HAS A CLINICAL SPECIALTY REP 39 HRS/WK - I ENCOURAGED TRUPTI TO GRAD INCREASE HER ACTIVITY LEVEL. THE Pt DOES NOT APPEAR TO BE A CANDIDATE FOR SKILLED PT AT THIS TIME, SHE AGREES WELL. Electronically signed by: CLEMENTE JOHN,PT Please sign and return to therapist. Thank you for your referral.
== END 2024-04-05 12:19 | disposition home or self-care (01) ==
LOC: HO.PT 10:36
PROVIDERS: PCP Registered Nurse; Visit Provider Registered Nurse
DX: M25.511 Pain in right shoulder (principal)

== ENCOUNTER 2024-04-13 09:36 | Outpatient (REF) | payer OTHER, SELFPAY ==
--- NOTE | ~2024-04-13 | US_ITS ---
EXAMINATION: US ABDOMEN COMPLETE WITH LIVER ELASTOGRAPHY HISTORY: h/o hep. C, cirrhosis TECHNIQUE: Real-time grayscale ultrasound imaging of the abdomen was performed and images were reviewed. COMPARISON: Comparison is made with the prior examination dated 03/21/2021. FINDINGS: Liver: There is enlargement of the left lobe of the liver. The liver demonstrates increased echotexture consistent with steatosis. There is a mildly lobulated liver contour, suggestive of cirrhosis. No focal mass or intrahepatic biliary ductal dilatation is identified. There is normal hepatopedal flow in the portal vein. Ultrasound elastography of the liver was performed with 10 separate measurements of the liver parenchyma with the patient in the supine position. Measurements were obtained approximately 2 cm below Vishnu's capsule and perpendicular to the capsule. Images are of satisfactory quality. The median shear wave velocity is 1.69 m/s. The interquartile range/median (IQR/median) is 0.09. Gallbladder and biliary tree: The gallbladder is unremarkable, without evidence of calculi, wall thickening, or pericholecystic fluid. There is no sonographic Wharton sign. The common bile duct is normal in caliber measuring 3 mm. Kidneys: The right kidney measures 10.9 cm in length. The left kidney measures 10.3 cm in length. There is a 6 x 6 x 8 mm cyst in the interpolar region of the right kidney and an 8 x 7 x 8 mm cyst in the interpolar region of the left kidney. There is a probable scar or junctional parenchymal defect in the interpolar region of the right kidney. The kidneys are otherwise unremarkable, without evidence of solid masses, hydronephrosis, or calculi. Pancreas: The pancreatic head and neck are unremarkable. The remainder of the pancreas is obscured by bowel gas. Spleen: The spleen is normal in size and contour, measuring 8.1 cm in length. Abdominal aorta and inferior vena cava: The visualized portions of the abdominal aorta and inferior vena cava are normal in caliber. There is no free fluid in the abdomen. US/US abdomen comp w elastography IMPRESSION: Hepatic steatosis and enlargement of the left lobe of the liver. Lobulated liver contour suggestive of cirrhosis. The median shear wave velocity is 1.69 m/s, corresponding to a median liver stiffness of 8.74 kPa. The IQR/median value is 0.09. This is indicative of a quality data set. Findings are indicative of a low elastography value which rules out advanced chronic liver disease in asymptomatic patients. REFERENCE: Society of Radiologists in Ultrasound Liver Stiffness Thresholds (2020): LIVER STIFFNESS THRESHOLDS: *Shear wave velocity less than 1.3 m/s (Liver Stiffness equal or less than 5 kPa): High probability of being normal. *Shear wave velocity less than 1.7 m/s (Liver Stiffness less than 9 kPa): In the absence of other known clinical signs, rules out compensated advanced chronic liver disease. *Shear wave velocity between 1.7-2.1 m/s (Liver Stiffness 9-13 kPa): Suggestive of compensated advanced chronic liver disease but need further test for confirmation. *Shear wave velocity between 2.1-2.4 m/s (Liver Stiffness 13-17 kPa): Rules in compensated advanced chronic liver disease. *Shear wave velocity greater than 2.4 m/s (Liver Stiffness over 17 kPa): Suggestive of clinically significant portal hypertension. QUALITY OF DATA SET: *IQR/Median value equal or less than 0.15 implies a quality data set. *IQR/Median value over 0.15 implies a poor quality data set. SIGNIFICANT CHANGE FROM PRIOR EXAM: Significant change if liver stiffness measurement is 10% or greater from prior exam. OTHER CONSIDERATIONS: The stage of liver fibrosis may be overestimated in the setting of acute hepatitis, liver inflammation, elevated liver function tests, hepatic vascular congestion, obstructive cholestasis, non-fasting state, and infiltrative diseases such as amyloidosis and lymphoma. In some patients with NAFLD, the liver stiffness thresholds for compensated advanced chronic liver disease may be lower. In causes other than viral hepatitis and NAFLD, liver stiffness thresholds are not well established. Electronically signed by: Jason Lombardi MD 04/14/2024 07:42 AM EST
--- OUTSIDE RECORDS SUMMARY | 2024-04-13 10:18 | XMS_ITS | Encounter Summary ---
Author Organization [employer] Address [address] [place] [address] Care Team Providers Care Home Health Cna Name Role Phone [facility] Primary Care Provider [phone] Encounter Details Date Type Department Care Team ([facility] st Contact Info) Description 04/04/2024 Telephone [facility] [address] [place] [address] [facility] [address] [place] [address] Social History Tobacco Use Types Packs/Day Years Used Date Smoking Tobacco: Former Cigarettes Smokeless Tobacco: Never Depression Answer Date Recorded Patient Health Questionnaire-9 Score 0 04/04/2024 Patient Health Questionnaire-9 Score 0 04/04/2024 Last PHQ-9: Questionnaire Data Not on file 0 04/04/2024 Housing Stability Answer Date Recorded What is your housing situation today? I have teodoro hobson 07/22/[address] you li ve. Do you have problems with any of the following? None of the above 07/22/2023 Food Insecurity Answer Date Recorded Within the past 12 months, y ou worried that your food would run out before you got money to buy more: Never True 07/22/2023 Within the past 12 months,th e food you bought just didn't last and you didn't have enough money to get more: Never True 03/2023 Transportation Answer Date Recorded In the past 12 months, has l ack of transportation kept you from medical appts, meetings, work or from getting things needed for daily living? No 07/22/2023 Utilities Answer Date Recorded In the past 12 months, has t he [employer], gas, oil or water company threatened to shut off services in your home? No 07/22/2023 Depression Answer Date Recorded Patient Health Questionnaire-2 Score 0 04/04/2024 Comments Unknown Sex and Gender Information Value Date Recorded Sex Assigned at Female 01/20/2022 10:15 AM EDT Legal Sex Female 10:15 AM EDT Gender Identity Female 01/20/2022 10:15 AM EDT Sexual Orientation Straight 01/20/2022 10 :15 AM EDT documented as of this encounter Plan of Treatment Upcoming Encounters Date Type Department Care Team (Late st Contact Info) Description 04/20/2024 9:30 AM EST Clinical Support [facility] [address] [place] [address] Tammie Diaz RN documented as of this encounter Visit Diagnoses Not on filedocumented in this encounter Additional Health Concerns Assessment Noted Time PHQ-9 Depression Total Score: 0 04/04/19 25 11:23 AM EST documented as of this encounter Care Teams Home Health Cna Relationship Specialty Start Date End Date Kelli Horton FNP [address] [place] [address] PCP - General Family Medicine 05/20/22 documented as of this encounter
--- OUTSIDE RECORDS SUMMARY | 2024-04-13 10:18 | XMS_ITS | Encounter Summary ---
Author Organization [employer] Address [address] [facility] [address]t [place] [address] Care Team Providers Care Three Dimensional Art Instructor Name Role Phone Kelli Horton Primary Care Provider [phone] Reason for Referral * Consultation (Routine) - Pending Review Specialty Diagnoses / Procedures Referred By Cruz murillo Referred To Contact Sleep Medicine Diagnoses Obstructive sleep apnea syndrome Kelli Horton FNP [address] [place] [address] Phone: tel: fax: Referral ID Status Reason Start Date Expiration Date Visits Requested Visits Authorized [id number] Pending Review Specialty Services Required 04/04/2024 04/04/2025 1 1 * Consultation (Routine) - Closed Specialty Diagnoses / Procedures Referred By Cruz murillo Referred To Contact Otolaryngology Diagnoses Oropharyngeal dysphagia Kelli Horton FNP [address] [place] [address] Phone: tel: fax: [facility] [address] Phone: tel: fax: Referral ID Status Reason Start Date Expiration Date V isits Requested Visits Authorized [id number] Closed Specialty Services Required 04/04/2024 04/04/2025 1 1 * Consultation (Routine) - Authorized Specialty Diagnoses / Procedures Referred By Cruz murillo Referred To Contact Orthopaedic Surgery Diagnoses Left carpal tunnel syndrome Kelli Horton FNP [address] [place] [address] Phone: tel: fax: [facility] [address] [place] [address] Drive [address] [place], [place] Phone: tel: fax: Referral ID Status Reason Start Date Expiration Date Visits Requested Visits Authorized [id number] Authorized Specialty Services Required 04/04/2024 04/04/2025 1 1 Reason for Visit * Reason Comments Follow-up Diabetes Encounter Details Date Type Department Care Team (Late st Contact Info) Description 04/04/2024 11:15 AM EST Office Visit [facility] [address] [place] [address] Kelli Horton FNP [address] [place] [address] Type 2 diabetes mellitus with stage 3 chronic kidney disease, without long-term current use of insulin, unspecified whether stage 3a or 3b CKD (CMS/HCC) (Primary Dx); Left carpal tunnel syndrome; Oropharyngeal dysphagia; Obstructive sleep apnea syndrome Social History Tobacco Use Types Packs/Day Years Used Date Smoking Tobacco: Former Cigarettes Smokeless Tobacco: Never Tobacco Cessation:Counseling Given: Not Answered Depression Answer Date Recorded Patient Health Questionnaire-9 [...] the past 12 months, has t he electric, gas, oil or water company threatened to [...] AM EDT documented as of this encounter Last Filed Vital Signs Vital Sign Reading Time Taken Comments Blood Pressure 120/82 04/04/2024 11:22 AM EST Pulse 84 04/04/2024 11:22 AM EST Temperature 36.6 ??C (97.8 ??F) 04/04/2024 11:[address] Respiratory Rate 20 04/04/2024 11:22 AM EST Oxygen Saturation - - Inhaled Oxygen Concentration - - Weight 88.9 kg (196 lb) 04/04/2024 11:22 AM EST Height 147.3 cm (4' 10 ) 04/04/2024 11:22 AM EST Body Mass Index 40.96 04/04/2024 11:22 AM EST documented in this encounter Progress Notes * [facility], TRAINMAN - 04/04/2024 11:15 AM EST SUBJECTIVE: Ludivina Hussein is a 68 y.o. year old female with JOSHUA cirrhosis, HTN, T2DM w/ CKD and asthma who presents for diabetes follow up . Acute Concerns: Left carpal tunnel- no improvement with OT or night time bracing. Requesting referral to surgery Difficulty swallowing x 2 weeks--remote hx of similar concern. Seen by ENT in 2019 with ?negative EGD per patient report. Requesting referral back to ENT. Dr. Brittani Chaudhari JUSTIN -difficulty tolerating CPAP--sleep medicine referral Interim Updates: Right knee pain-C pain mngmt with plan for spinal cord stimulator trial. Per visit note, concern for complex regional pain syndrome of left lower extremity Social History Social History Narrative Current living environment: Lives alone, has [employer] daily and overnight Children: 4, 11 grandkids Tobacco Use Hx smoker for 10 years, 1-2 PPD. quit 22 years ago. Alcohol Use: None Marijuana Use: None Other drug use: None Reproductive Health: Sexually Active: Yes Partners are: AMAB LMP: Post menopausal Patient Active Problem List Diagnosis Chronic low back pain Chronic pain of right knee Cirrhosis of liver (CMS/HCC) Moderate persistent asthma Lower urinary tract symptoms Benign essential hypertension Type 2 diabetes mellitus, without long-term current use of insulin (CMS/HCC) Depressive disorder Obstructive sleep apnea syndrome Varicose veins of both lower extremities RB Healthcare maintenance Acute conjunctivitis of right eye Gait instability Past Surgical History: Procedure Laterality Date HYSTERECTOMY KNEE ARTHROSCOPY W/ DEBRIDEMENT Left ROTATOR CUFF REPAIR Right 08/2022 Dr. Solorzano TOTAL KNEE ARTHROPLASTY Right 2020 UMBILICAL HERNIA REPAIR this was done twice VENOUS ABLATION No family history on file. Review of Systems Constitutional: Negative for fatigue, fever and unexpected weight change. HENT: Positive for trouble swallowing. Negative for sore throat and voice change. Eyes: Negative for visual disturbance. Respiratory: Negative for apnea, chest tightness and shortness of breath. Cardiovascular: Negative for chest pain, palpitations and leg swelling. Musculoskeletal: Positive for arthralgias. Neurological: Negative for dizziness, light-headedness and headaches. OBJECTIVE: Vitals: 04/04/24 1122 BP: 120/82 Pulse: 84 Resp: 20 Temp: 97.8 ??F (36.6 ??C) Physical Exam Constitutional: General: She is not in acute distress. Appearance: Normal appearance. HENT: Head: Normocephalic and atraumatic. Right Ear: External ear normal. Left Ear: External ear normal. Nose: Nose normal. Eyes: Conjunctiva/sclera: Conjunctivae normal. Neck: Thyroid: No thyroid mass, thyromegaly or thyroid tenderness. Cardiovascular: Rate and Rhythm: Normal rate and regular rhythm. Pulses: Dorsalis pedis pulses are 2+ on the right side and 2+ on the left side. Posterior tibial pulses are 2+ on the right side and 2+ on the left side. Heart sounds: Normal heart sounds. Pulmonary: Effort: Pulmonary effort is normal. Breath sounds: Normal breath sounds. Musculoskeletal: Cervical back: No rigidity. Right foot: Normal range of motion. No deformity. Left foot: Normal range of motion. No deformity. Feet: Right foot: Protective Sensation: 10 sites tested. 10 sites sensed. Skin integrity: Skin integrity normal. Toenail Condition: Right toenails are normal. Left foot: Protective Sensation: 10 sites tested. 10 sites sensed. Skin integrity: Skin integrity normal. Toenail Condition: Left toenails are normal. Lymphadenopathy: Cervical: No cervical adenopathy. Skin: General: Skin is warm and dry. Neurological: General: No focal deficit present. Mental Status: She is alert and oriented to person, place, and time. Psychiatric: Mood and Affect: Mood normal. Behavior: Behavior normal. ASSESSMENT/PLAN 1. Type 2 diabetes mellitus with stage 3 chronic kidney disease, without long- term current use of insulin, unspecified whether stage 3a or 3b CKD ([facility]) (Primary) Lab Results Component Value Date HGBA1C 6.2 (A) 04/04/2024 HGBA1C 5.8 12/25/2023 HGBA1C 5.8 07/22/2023 Lab Results Component Value Date MICROALBUR 0.3 02/28/2021 CREATININE 0.92 01/16/2024 Metformin monotherapy CKD stage 3 followed by nephrology Foot Exam: 03/2024 risk 0 Eye Exam: [facility]ed [facility] in [place] Statin: Yes ASA: No PATRICIA/ARB: Yes Encouraged regular aerobic exercise for improved glycemic control Encouraged daily foot checks Encouraged lean protein snacks and to avoid foods high in sugar and simple carbohydrates Treatment Goals: A1c goal: <7% FBG goal: <130 2 hour post prandial goal: <180 - POCT HGB A1C - POCT Glucose 2. Left carpal tunnel syndrome - Referral to Orthopaedic Surgery; Future - Referral to Orthopaedic Surgery 3. Oropharyngeal dysphagia - Patient requesting to reestablish at prior ENT office - ED precautions advised - Referral to ENT; Future - Referral to ENT 4. Obstructive sleep apnea syndrome - Referral to Sleep Medicine; Future - Referral to Sleep Medicine Follow Up: 6 months, PE Current Outpatient Medications on File Prior to Visit Medication Sig Dispense Refill Acetaminophen Extra Strength 500 MG tablet Take 1 tablet (500 mg) by mouth every 6 (six) hours if needed for moderate pain, fever or headaches. 30 tablet 0 Advair HFA 115-21 MCG/ACT inhaler INHALE 2 PUFFS BY MOUTH TWICE DAILY IN THE MORNING AND IN THE EVENING RINSE MOUTH AFTER USING. 12 g 0 albuterol (2.5 MG/3ML) 0.083% nebulizer solution INHALE 1 AMPULE USING A NEBULIZER EVERY 4 TO 6 HOURS NEEDED SHORTNESS OF BREATH OR FOR WHEEZING albuterol (Ventolin HFA) 108 (90 Base) MCG/ACT inhaler Inhale 2 puffs every 4 (four) hours if needed for wheezing or shortness of breath. 18 g 3 amLODIPine (Norvasc) 2.5 MG tablet Take 2.5 mg by mouth at bedtime. atorvastatin (Lipitor) 20 MG tablet TAKE 1 TABLET BY MOUTH EVERY EVENING 90 tablet 3 Calcium Carb-Cholecalciferol 600-10 MG-MCG tablet Take 1 tablet by mouth every 12 (twelve) hours. calcium carbonate (Calcium 600) 600 MG tablet Take 1 tablet (600 mg) by mouth in the morning. 90 tablet 3 celecoxib (CeleBREX) 200 MG capsule TAKE 1 CAPSULE BY MOUTH TWICE DAILY NEEDED FOR PAIN 60 capsule 2 cholecalciferol (Vitamin D-3) 25 MCG (1000 UT) tablet Take 1 tablet (25 mcg) by mouth in the morning. 90 tablet 3 clonazePAM (KlonoPIN) 0.5 MG tablet TAKE 1 TABLET BY MOUTH ONCE DAILY NEEDED darifenacin (Enablex) 15 MG 24 hr tablet Take 1 tablet by mouth at bed time. estradiol (Estrace) 0.1 MG/GM vaginal cream Insert 0.5mg vaginally once daily for 1 week then decrease to 3 times per week 42.5 g 2 fluticasone (Flonase) 50 MCG/ACT nasal spray USE 1 SPRAY IN EACH NOSTRIL TWICE DAILY 16 g 5 gabapentin (Neurontin) 300 MG capsule TAKE 1 CAPSULE BY MOUTH AT BEDTIME FOR PAIN glucose blood (FREESTYLE LITE) test strip test blood sugar twice daily 100 strip 2 HYDROcodone-acetaminophen ([place]) 5-325 MG tablet TAKE 1 TABLET BY MOUTH EVERY TWELVE HOURS NEEDED FOR SEVERE PAIN 56 tablet 0 lidocaine (Lidoderm) 5 % patch Apply 1 patch topically Once per day. Remove & discard patch within 12 hours or as directed by MD. 30 patch 11 lisinopril-hydroCHLOROthiazide 10-12.5 MG tablet Take 1 tablet by mouth in the morning. loratadine (Claritin) 10 MG tablet TAKE 1 TABLET BY MOUTH EVERY MORNING 90 tablet 3 montelukast (Singulair) 10 MG tablet Narcan 4 MG/0.1ML nasal spray FOR SUSPECTED OPIOID OVERDOSE. SPRAY 0.1mL IN ONE NOSTRIL. REPEAT IN ALTERNATE NOSTRIL 2-3 MINUTES IF NEEDED. SEEK MEDICAL ATTENTION IMMEDIATELY EVEN IF PATIENT RESPONDS. 2 each 2 omeprazole (PriLOSEC) [address] capsule pneumococcal conjugate (Prevnar 13) vaccine Inject 0.5 mL into the shoulder, thigh, or buttocks. polyethylene glycol, PEG, 3350 (MiraLax) 17 GM/SCOOP powder take (17G) by oral route every day mixed with 8 oz. water, juice, soda, coffee or tea tiotropium (Spiriva Respimat) 1.25 MCG/ACT inhaler INHALE 2 PUFFS BY MOUTH ONCE DAILY 4 g 3 traZODone (Desyrel) 150 MG tablet ursodiol (Actigall) 250 MG tablet vitamin E 180 MG (400 UNIT) capsule TAKE 1 CAPSULE BY MOUTH EVERY MORNING 90 capsule 3 No current facility-administered medications on file prior to visit. Sinhala Translation: Provided by [facility] staff member GEORGES De La Cruz documented in this encounter Plan of Treatment Upcoming Encounters Date Type Department Care Team (Late st Contact Info) Description 04/20/2024 9:30 AM EST Clinical Support [facility] [address] [place] [id number] Tammie Diaz RN Scheduled Referrals Name Type Priority Associated Diagnoses Order Schedule Referral to Orthopaedic Surgery Outpatient Referral Routine Left carpal tunnel syndrome Expected: 04/04/2024 (Approximate), Expires: 04/04/2025 Referral to ENT Outpatient Referral Routine Oropharyngeal dysphagia Expected: 04/04/2024 (Approximate), Expires: 04/04/2025 Referral to Sleep Medicine Outpatient Referral Routine Obstructive sleep apnea syndrome Expected: 04/04/2024 (Approximate), Expires: 04/04/2025 documented as of this encounter Procedures Procedure Name Priority Date/Time Associated Diagnosis Comments POCT GLYCATED HEMOGLOBIN, TOTAL Routine 04/04/2024 11:24 AM EST Type 2 diabetes mellitus with stage 3 chronic kidney disease, without long-term current use of insulin, unspecified whether stage 3a or 3b CKD (CMS/HCC) POCT GLUCOSE Routine 04/04/2024 11:24 AM EST Type 2 diabetes mellitus with stage 3 chronic kidney disease, without long-term current use of insulin, unspecified whether stage 3a or 3b CKD ([facility]/HCC) documented in this encounter Results * POCT Glucose (04/04/2024 11:24 AM EST) Glucose Blood, POC 116 60 - 200 mg/dL [employer] Lot # [id number] Lot# Expiration Date ,025 Blood Capillary blood specimen / Unknown 04/04/2024 11:24 AM EST [facility] POINT OF CARE TEST ENTER/EDIT ORDERABLES Final Result * (ABNORMAL) POCT HGB A1C (04/04/2024 11:24 AM EST) Hemoglobin A1C 6.2(A) 4.0 - 6.0 % [employer] Lot # [id number] Lot# Expiration Date ,026 Blood 04/04/2024 11:2 4 AM EST [facility] POINT OF CARE TEST ENTER/EDIT ORDERABLES Final Result documented in this encounter Visit Diagnoses Diagnosis Type 2 diabetes mellitus with stage 3 chronic kidney disease, without long-term current use of insulin, unspecified whether stage 3a or 3b CKD ([facility])- Primary Left carpal tunnel syndrome Carpal tunnel syndrome Oropharyngeal dysphagia Dysphagia, oropharyngeal phase Obstructive sleep apnea syndrome Obstructive sleep apnea (adult) (pediatric) documented in this encounter Additional Health Concerns Assessment Noted Time PHQ-9 Depression Total Score: 0 04/04/19 25 11:23 AM EST documented as of this encounter Care Teams Three Dimensional Art Instructor Relationship Specialty Start Date End Date Kelli Horton FNP [address] [place] [address] PCP - General Family Medicine 05/20/22 documented as of this encounter
--- OUTSIDE RECORDS SUMMARY | 2024-04-13 10:18 | XMS_ITS | Encounter Summary ---
Author Organization [employer] Address [address] [facility] 7t [place] [address] Care Team Providers Care Business Continuity Analyst Name Role Phone Kelli Horton ENGINEER OPERATIONS AND MAINTENANCE Primary Care Provider [phone] Encounter Details Date Type Department Care Team (Latest Contact Info) Description 04/04/2024 Travel Social History Tobacco Use Types Packs/Day Years [...] Description 04/20/2024 9:30 AM EST Clinical Support [facility] [address] [place] [address] Tammie Daiz RN documented as of this encounter Visit Diagnoses Not on filedocumented in this encounter Additional Health Concerns Assessment Noted Time PHQ-9 Depression Total Score: 0 04/04/19 25 11:23 AM EST documented as of this encounter Care Teams Business Continuity Analyst Relationship Specialty Start Date End Date Kelli Horton FNP [address] [place] [id number] PCP - General Family Medicine 05/20/22 documented as of this encounter
--- OUTSIDE RECORDS SUMMARY | 2024-04-13 10:18 | XMS_ITS | Continuity of Care Document ---
Author Organization [facility] Address [address] [place] [address]- Care Team Providers Care Collar Cutter Name Role Phone Sol VILLALOBOS, Kelli Primary Care Physician Encounter [facility] Date(s): 03/25/24 - 03/30/[address] [address]- Encounter Diagnosis Carpal tunnel syndrome, bilateral upper limbs(Final) - Discharge Disposition: A-D/C Home Attending Physician: Kelli Horton NP Admitting Physician: Kelli Horton NP Referring Physician: Kelli Horton NP Encounter Type: Disch Recurring OP Allergies, Adverse Reactions, Alerts No Known Allergies Medications Acetaminophen 1000mgs, By Mouth, 3 times a day, PRN as needed for pain, 0 Refills, Maintenance, 12/01/12 11:40:28 AM EDT Start Date: 12/01/12 Status: Ordered Repeat number: 1 Advair HFA 115 mcg / 21 mcg 2 puffs, Inhalation, 2 times a day, rinse mouth and throat after use, j44.9, # 1 each, 11 Refills, Maintenance, 04/08/22 9:09:00 AM EST, Aerosol, [facility], 2 puffs Inhalation 2 times a day,Instr:rinse mouth and throat after use, j44.9, 147.32, cm, 04/08/22 8:19:00 EST, Height Start Date: 04/08/22 Status: Ordered Quantity: 1.0 Unit: each Repeat number: 12 Aerochamber See Instructions, # 1 each, Maintenance, use with inhaler, 12/01/12 11:31:23 AM EDT, Compound Start Date: 12/01/12 Status: Ordered Quantity: 1.0 Unit: each Repeat number: 1 albuterol 0.083% inhalation solution 3 mL = 2.5 mg, Inhalation, Every 6 hours, PRN, 0 Refills, Maintenance, 12/01/12 11:39:18 AM EDT Start Date: 12/01/12 Status: Ordered Repeat number: 1 Aspirin = 81 mg, Daily, 0 Refills, Maintenance, 12/01/12 11:36:12 AM EDT Start Date: 12/01/12 Status: Ordered Repeat number: 1 atorvastatin 20 mg oral tablet 1 tablet = 20 mg, By Mouth, Daily, 0 Refills, Maintenance, 12/20/18 9:17:30 AM EDT Start Date: 12/20/18 Status: Ordered Repeat number: 1 Calcium 600 +D oral tablet 1 tablet, By Mouth, Daily, 0 Refills, Maintenance, 12/01/12 11:38:05 AM EDT Start Date: 12/01/12 Status: Ordered Repeat number: 1 clonazePAM 0.5 mg oral tablet 1 tablet = 0.5 mg, By Mouth, Daily, 0 Refills, Maintenance, 08/09/15 2:35:41 PM EDT, Tablet Start Date: 08/09/15 Status: Ordered Repeat number: 1 darifenacin 15 mg oral tablet, extended release 1 tablet, By Mouth, Daily in AM, # 30 tablet, 11 Refills, Maintenance, 04/09/23 2:43:00 PM EST, [facility], 147.32, cm, 01/28/23 10:38:00 EST, Height Start Date: 04/09/23 Status: Ordered Quantity: 30.0 Unit: tablet Repeat number: 12 Diabetic Tuss = 100 mg, By Mouth, Every 4 hours, 0 Refills, Maintenance, 08/09/15 2:39:03 PM EDT Start Date: 08/09/15 Status: Ordered Repeat number: 1 Flonase 50 mcg/inh nasal spray Daily, 0 Refills, Maintenance, 12/20/18 9:12:48 AM EDT Start Date: 12/20/18 Status: Ordered Repeat number: 1 hydrochlorothiazide-lisinopril 12.5 mg-10 mg oral tablet 1 tablet, By Mouth, Daily, # 30 tablet, 0 Refills, Maintenance, 08/09/15 2:36:59 PM EDT, Tablet Start Date: 08/09/15 Status: Ordered Quantity: 30.0 Unit: tablet Repeat number: 1 Hydrocodone 5mg/325mgs, By Mouth, 3 times a day, PRN Pain , Moderate, 0 Refills, Maintenance, 09/07/13 11:15:53 AM EDT Start Date: 09/07/13 Status: Ordered Repeat number: 1 ibuprofen 600 mg oral tablet 1 tablet = 600 mg, By Mouth, Every 8 hours, # 40 tablet, 0 Refills, Maintenance, 09/19/13 4:12:34 PMEDT, Tablet Start Date: 09/19/13 Status: Ordered Quantity: 40.0 Unit: tablet Repeat number: 1 Lidocaine 5% patch, 0 Refills, Maintenance, 12/20/18 9:16:33 AM EDT Start Date: 12/20/18 Status: Ordered Repeat number: 1 loratadine 10 mg oral capsule 1 capsule = 10 mg, By Mouth, Daily, # 10 capsule, 0 Refills, Maintenance, 12/01/12 11:38:23 AM EDT, Capsule Start Date: 12/01/12 Status: Ordered Quantity: 10.0 Unit: capsule Repeat number: 1 Metformin = 500 mg, By Mouth, Daily, 0 Refills, Maintenance, 12/01/12 11:40:00 AM EDT Start Date: 12/01/12 Status: Ordered Repeat number: 1 MiraLax oral powder for reconstitution = 17 Gm, By Mouth, Daily, dissolve in water before taking, # 255 Gm, 0 Refills, Maintenance, 08/09/15 2:36:04 PM EDT, REC Powder Start Date: 08/09/15 Status: Ordered Quantity: 255.0 Unit: g Repeat number: 1 montelukast 10 mg oral tablet 1, tablet, By Mouth, Daily in PM, # 30 tablet, Refills 2, Maintenance, 03/10/24 1:56:00 PM EST, Route to Pharmacy Electronically, [facility], 147.32, cm, 01/28/23 10:38:00 EST, Height Start Date: 03/10/24 Status: Ordered Quantity: 30.0 Unit: tablet Repeat number: 1 Prevnar 13 intramuscular suspension 0.5 mL, Intramuscular, Once, # 1 each, 0 Refills, Maintenance, 08/09/15 2:37:57 PM EDT, Suspension Start Date: 08/09/15 Status: Ordered Quantity: 1.0 Unit: each Repeat number: 1 ProAir HFA 90 mcg/inh inhalation aerosol with adapter 2, puffs, Inhalation, Every 4 hours, PRN, # 8.5 Gm, Refills 0, Tot. Refills 0, Maintenance, 199:29:34 AM EDT, Aerosol, Route to Pharmacy Electronically, [id number], [facility] Start Date: 12/20/18 Status: Ordered Quantity: 8.5 Unit: g Repeat number: 1 Spiriva Respimat 1.25 mcg/inh inhalation aerosol 2 puffs, Inhalation, Daily, j44.9, # 1 each, 6 Refills, Maintenance, 02/27/22 7:09:00 PM EST, Aerosol, [facility] Start Date: 02/27/22 Status: Ordered Quantity: 1.0 Unit: each Repeat number: 7 traZODone 150 mg oral tablet By Mouth, Daily, 0 Refills, Maintenance, 12/20/18 9:18:38 AM EDT Start Date: 12/20/18 Status: Ordered Repeat number: 1 Trazodone Tablet 300 mg, By Mouth, Daily at bedtime, Maintenance, 12/01/12 11:35:56 AM EDT Start Date: 12/01/12 Status: Ordered Repeat number: 1 ursodiol 250 mg oral tablet See Instructions, 3 tabs 2xday, 0 Refills, Maintenance, 12/01/12 11:37:34 AM EDT Start Date: 12/01/12 Status: Ordered Repeat number: 1 Vitamin D3 See Instructions, 1000i.u By Mouth daily, 0 Refills, Maintenance, 12/01/12 11:35:21 AM EDT Start Date: 12/01/12 Status: Ordered Repeat number: 1 Vitamin E = 400 International_Units, By Mouth, Daily, 0 Refills, Maintenance, 09/07/13 11:21:17 AM EDT Start Date: 09/07/13 Status: Ordered Repeat number: 1 Vitamin E By Mouth, Daily, 0 Refills, Maintenance, 10/06/18 3:58:35 PM EDT Start Date: 10/06/18 Status: Ordered Repeat number: 1 Problem List Condition Confirmation Course Effective Dates [...] Hydrocodone t.i.d as needed. ?? Compliant with [employer] LO[employer]ER agreement 3Outside Source Comment: Overview: ?? Followed by DR. Lora at [facility] ?? S/t JOSHUA 4Outside Source Comment: [...] Exam: [facility] in [place] Lipid panel: 03/2022 WN ASCVD: LDL < 70 Statin: Yes ASA: No PATRICIA/ARB: Yes Encouraged regular aerobic exercise for improved glycemic control Encouraged daily foot checks Encouraged lean protein snacks and to avoid foods high in sugar and simple carbohydrates Treatment Goals: C8lenvx: <7% FBG goal: <130 2 hour post prandial goal: <180 Last Assessment & Plan: Lab Results Component Value Date HGBA1C 5.9 03/21/2022 ?? Well controlled ?? Continue current regimen ?? Per patient request willrefer to podiatry for ongoing diabetic footcare Social History Social History Type Response Smoking Status Former smoker entered on: 01/23/15 Sex Sex Representation Female (finding) Patient Care team information Care Team Personnel Name: Twyla Peace RN Position: S RN Member Role: Primary Care Nurse Name: Fawn Ansari RN Position: S RN Member Role: Primary Care Nurse Name: Scott Christine RN Position: [facility] RN Member Role: Primary Care Nurse Name: Kelli Horton NP Position: Reference Physician Member Role: PCP Address: [address] [place] [address] Telecom: Care Team Related Persons Name: ENRIQUE MAN Insurance Providers Guarantor name: TRUPTI MAGUIRE Health Plan Information #: 1 Payer: NA Member Number: [id number] Policy Number: NA Group Number: NA Health Plan Information #: 2 Payer: NA Member Number: [id number] Policy Number: NA Group Number: NA
--- OUTSIDE RECORDS SUMMARY | 2024-04-13 10:18 | XMS_ITS | Encounter Summary ---
Author Organization [employer] Address [address] [facility] [address] [place] [address] Care Team Providers Care Portable Pinch Riveter Name Role Phone Hawkins [facility] Primary Care Provider Reason for Visit * Reason Onset Date Comments Med Refill 03/15/2024 Encounter Details Date Type Department Care Team ([facility] st Contact Info) Description 03/15/2024 Telephone [facility] [address] [place] [address] [facility] [address] [place] [address] Med Refill Social History Tobacco Use Types Packs/Day Years Used Date Smoking Tobacco: Former Cigarettes Smokeless Tobacco: Never Depression Answer Date Recorded Patient Health Questionnaire-9 Score 0 12/25/2023 Patient Health Questionnaire-9 Score 0 12/25/2023 Last PHQ-9: Questionnaire Data Not on file 1 Housing Stability Answer Date Recorded What is [...] Date Recorded Patient Health Questionnaire-2 Score 0 12/25/2023 Comments Unknown Sex and Gender Information Value Date Recorded Sex Assigned at Female 01/20/2022 10:15 AM EDT Legal Sex Female 10:15 AM EDT Gender Identity Female 01/20/2022 10:15 AM EDT Sexual Orientation Straight 01/20/2022 10 :15 AM EDT documented as of this encounter Miscellaneous Notes * Telephone Encounter - Veronica Ramirez LPN - 03/15/2024 11:00 AM EST Duplicate request. * Telephone Encounter - Nicholas Maddox - 03/15/2024 10:55 AM EST TC from pt requesting medication refill. Medications needing refill : HYDROcodone-acetaminophen ([place]) 5-325 MG tablet To be sent to: [facility] - [place], [place] - [address] [place] [address] documented in this encounter Plan of Treatment Upcoming Encounters Date Type Department Care Team (Late st Contact Info) Description 04/20/2024 9:30 AM EST Clinical Support [facility] [address] [place] [address] Tammei Diaz RN documented as of this encounter Visit Diagnoses Not on filedocumented in this encounter Additional Health Concerns Assessment Noted Time PHQ-9 Depression Total Score: 0 12/25/19 10:25 AM EDT documented as of this encounter Care Teams Portable Pinch Riveter Relationship Specialty Start Date End Date Kelli Horton FNP [address] [place] [address] PCP - General Family Medicine 05/20/22 documented as of this encounter
--- OUTSIDE RECORDS SUMMARY | 2024-04-13 10:18 | XMS_ITS | Clinical Summary ---
Author Organization [employer] Address [address] [facility] [address] [place] [address] Care Team Providers Care Upholstery Cleaner Name Role Phone Kelli Horton BULB INSPECTOR Primary Care Provider [phone] Allergies Active Allergy Reactions Criticality Noted Date Comments Morphine Sulfate Er Itching 09/01/2023 Medications albuterol (2.5 MG/3ML) 0.083% nebulizer solution INHALE 1 AMPULE USING A NEBULIZER EVERY 4 TO 6 HOURS NEEDED SHORTNESS OF BREATH OR FOR WHEEZING 10/25/19 22 Active amLODIPine (Norvasc) 2.5 MG tablet Take 2.5 mg by mouth at bedtime. 02/22/20 22 Active Calcium Carb-Cholecalci ferol 600-10 MG-MCG tablet Take 1 tablet by mouth every 12 (twelve) hours. 04/12/19 16 Active darifenacin (Enablex) 15 MG 24 hr tablet Take 1 tablet by mouth at bed time. 02/20/20 21 Active gabapentin (Neurontin) 300 MG capsule TAKE 1 CAPSULE BY MOUTH AT BEDTIME FOR PAIN 06/25/19 22 Active lisinopril-hydr oCHLOROthiazide 10-12.5 MG tablet Take 1 tablet by mouth in the morning. 02/19/20 22 Active montelukast (Singulair) 10 MG tablet 03/18/20 22 Active omeprazole (PriLOSEC) [address] capsule 03/18/20 22 Active pneumococcal conjugate (Prevnar 13) vaccine Inject 0.5 mL into the shoulder, thigh, or buttocks. 08/09/19 16 Active polyethylene glycol, PEG, 3350 (MiraLax) 17 GM/SCOOP powder take (17G) by oral route every day mixed with 8 oz. water, juice, soda, coffee or tea 08/09/19 16 Active traZODone (Desyrel) 150 MG tablet 03/18/20 22 Active clonazePAM (KlonoPIN) 0.5 MG tablet TAKE 1 TABLET BY MOUTH ONCE DAILY NEEDED 06/13/19 23 Active ursodiol (Actigall) 250 MG tablet 07/12/19 23 Active Acetaminophen Extra Strength 500 MG tablet Take 1 tablet (500 mg) by mouth every 6 (six) hours if needed for moderate pain, fever or headaches. 30 tablet 08/12/19 23 Active Narcan 4 MG/0.1ML nasal spray FOR SUSPECTED OPIOID OVERDOSE. SPRAY 0.1mL IN ONE NOSTRIL. REPEAT IN ALTERNATE NOSTRIL 2-3 MINUTES IF NEEDED. SEEK MEDICAL ATTENTION IMMEDIATELY EVEN IF PATIENT RESPONDS. 2 each 2 02/24/20 23 Active celecoxib (CeleBREX) 200 MG capsuleIndicati ons:Chronic low back pain, unspecified back pain laterality, unspecified whether sciatica present TAKE 1 CAPSULE BY MOUTH TWICE DAILY NEEDED FOR PAIN 60 capsule 2 03/27/19 24 Active Advair HFA 115-21 MCG/ACT inhalerIndicati ons:Moderate persistent asthma with acute exacerbation INHALE 2 PUFFS BY MOUTH TWICE DAILY IN THE MORNING AND IN THE EVENING RINSE MOUTH AFTER USING. 12 g 05/11/19 24 Active calcium carbonate (Calcium 600) 600 MG tablet Take 1 tablet (600 mg) by mouth in the morning. 90 tablet 3 06/26/19 24 025 Active cholecalciferol (Vitamin D-3) 25 MCG (1000 UT) tablet Take 1 tablet (25 mcg) by mouth in the morning. 90 tablet 3 06/26/19 24 Active loratadine (Claritin) 10 MG tabletIndicatio ns:Moderate persistent asthma, unspecified whether complicated TAKE 1 TABLET BY MOUTH EVERY MORNING 90 tablet 3 07/29/19 24 Active atorvastatin (Lipitor) 20 MG tablet TAKE 1 TABLET BY MOUTH EVERY EVENING 90 tablet 3 10/30/19 24 Active estradiol (Estrace) 0.1 MG/GM vaginal creamIndication s:Vulvovaginal dryness Insert 0.5mg vaginally once daily for 1 week then decrease to 3 times per week 42.5 g 2 10/30/19 24 Active fluticasone (Flonase) 50 MCG/ACT nasal sprayIndication s:Moderate persistent asthma, unspecified whether complicated USE 1 SPRAY IN EACH NOSTRIL TWICE DAILY 16 g 5 11/25/19 24 Active tiotropium (Spiriva Respimat) 1.25 MCG/ACT inhalerIndicati ons:Moderate persistent asthma, unspecified whether complicated INHALE 2 PUFFS BY MOUTH ONCE DAILY 4 g 3 12/21/19 24 Active vitamin E 180 MG (400 UNIT) capsule TAKE 1 CAPSULE BY MOUTH EVERY MORNING 90 capsule 3 12/25/19 24 Active albuterol (Ventolin HFA) 108 (90 Base) MCG/ACT inhalerIndicati ons:Moderate persistent asthma with acute exacerbation Inhale 2 puffs every 4 (four) hours if needed for wheezing or shortness of breath. 18 g 3 12/25/19 24 Active lidocaine (Lidoderm) 5 % patchIndication s:Right shoulder pain, unspecified chronicity Apply 1 patch topically Once per day. Remove & discard patch within 12 hours or as directed by MD. 30 patch 11 12/25/19 24 025 Active glucose blood (FREESTYLE LITE) test stripIndication s:Type 2 diabetes mellitus with stage 3 chronic kidney disease, without long-term current use of insulin, unspecified whether stage 3a or 3b CKD (CMS/HCC) test blood sugar twice daily 100 strip 2 03/04/20 24 Active HYDROcodone-patricia taminophen ([place]) 5-325 MG tabletIndicatio ns:Chronic low back pain, unspecified back pain laterality, unspecified whether sciatica present TAKE 1 TABLET BY MOUTH EVERY TWELVE HOURS NEEDED FOR SEVERE PAIN 56 tablet 03/15/20 24 Active HYDROcodone-patricia taminophen ([place]) 5-325 MG tabletIndicatio ns:Chronic low back pain, unspecified back pain laterality, unspecified whether sciatica present Take 1 tablet by mouth every 12 (twelve) hours if needed for severe pain for up to 28 days. 56 tablet 01/29/20 24 024 Discontinued Active Problems Problem Noted Date Diagnosed Date Gait instability 05/05/2023 Acute conjunctivitis of right eye 03/05/2023 Healthcare maintenance 07/28/2022 Overview (05/05/2023): Mammo: 09/2022 Birads 1 Pap: S/P total hysterectomy for benign reason. Pt does not know if cervix remains. Will schedule follow up pelvic exam C-scope: Previously at [facility]. Date unknown. Will request records BMD: Routine age 67 Assessment & Plan (05/05/2023 8:28 PM EST): DEXA scan ordered RBBB 07/22/2022 Obstructive sleep apnea syndrome 03/21/2022 Overview (07/28/2022): ?? Has CPAP Chronic low back pain 03/12/2022 Overview (07/28/2022): ?? Hydrocodone t.i.d as needed. ?? Compliant with [employer] TELEMARKET[employer] agreement Assessment & Plan (05/05/2023 8:15 PM EST): Continue hydrocodone as prescribed. Patient will bring tablets to pharmacy to determine if able to order prior formulation Declines chronic pain group at this time Follow as scheduled with OUTBOUND TELEMARKETER Chronic pain of right knee 03/12/2022 Overview (07/28/2022): ?? Referred to PT for balance training 06/2022 Type 2 diabetes mellitus, [facility] long-term current use of insulin 10/01/2020 Overview (04/04/2024): Metformin monotherapy CKD stage 3 followed by nephrology Foot Exam: 03/2024 risk 0 Eye Exam: [facility]ed [facility] [place] Statin: Yes ASA: No PATRICIA/ARB: Yes Encouraged regular aerobic exercise for improved glycemic control Encouraged daily foot checks Encouraged lean protein snacks and to avoid foods high in sugar and simple carbohydrates Treatment Goals: A1c goal: <7% FBG goal: <130 2 hour post prandial goal: <180 Assessment & Plan (05/05/2023 8:31 PM EST): Lab Results Component Value Date HGBA1C 6.1 (A) 02/20/2023 Well controlled Continue current regimen Referral to podiatry for ongoing foot care Foot exam completed-no loss of protective sensation Assessment & Plan (03/04/2023 6:43 PM EST): ?? Well controlled ?? Continue current regimen Lab Results Component Value Date HGBA1C 6.1 (A) 02/20/2023 Assessment & Plan (07/28/2022 9:17 AM EDT): Lab Results Component Value Date HGBA1C 5.9 03/21/2022 ?? Well controlled ?? Continue current regimen ?? Per patient request will refer to podiatry for ongoing diabetic footcare Cirrhosis of liver 07/15/2017 Overview (04/04/2024): Followed by DR. Lora at [facility] Hepatic steatosis, hx of chronic HCV Lower urinary tract symptoms 07/09/2017 Moderate persistent asthma 02/14/2015 Overview (07/28/2022): ?? Followed by pulmonology ?? Singulair, spiriva, advair, albuterol Assessment & Plan (07/28/2022 9:18 AM EDT): ?? Loratadine refill provided today ?? Follow up as scheduled with pulmonology ?? Contact HC if sx worsen. ED precautions reviewed Benign essential hypertension 02/14/2015 Overview (05/05/2023): Lisinopril-hydrochlorothiazide 10/12.5mg Amlodipine 2.5mg RBBB on EKG Normal stress test 2018 - Aerobic exercise to reduce BP. Initial [...] prescriptions without first consulting health care provider Assessment & Plan (05/05/2023 8:32 PM EST): Well controlled Continue current regimen Assessment & Plan (07/28/2022 9:19 AM EDT): ?? Well controlled ?? Continue current regimen Depressive disorder 02/14/2015 Overview (07/28/2022): ?? Established with psychiatry and therapy. ?? Rx'd trazodone and clonazepam Varicose veins of both lower extremities 015 Resolved Problems Problem Noted Date Diagnosed Date Resolved Date [place] eye disease of right eye 03/05/2023 03/05/2023 Assessment & Plan (03/05/2023 10:51 AM EST): Given antibiotic cream for 5 days Arthritis of left knee 03/21/202207/24 Arthritis of right knee 03/21/2022 05/06/2022 Atrophic gastritis 10/14/2021 Asthma 04/15/2021 07/24/2022 Chronic kidney disease, stage 2 (mild) 04/15/2021 07/22/2022 Urinary incontinence 04/15/2021 023 Renal stone 07/14/2019 07/24/2022 CKD (chronic kidney disease), stage III 07/17/2017 07/22/2022 Fatty liver 07/15/2017 07/24/2022 Knee pain 02/14/2015 07/24/2022 Obesity 02/14/2015 07/24/2022 Increased frequency of urination 02/14/2015 07/24/2022 Type 2 diabetes mellitus 02/14/201506/2022 Chronic kidney disease 09/18/201107/22 Encounters Date Type Department Care Team Description 04/04/2024 11:15 AM EST Office Visit [facility] [address] [place] [address] Kelli Horton FNP Type 2 diabetes mellitus with stage 3 chronic kidney disease, without long-term current use of insulin, unspecified whether stage 3a or 3b CKD (CMS/HCC) (Primary Dx); Left carpal tunnel syndrome; Oropharyngeal dysphagia; Obstructive sleep apnea syndrome 04/04/2024 Telephone [facility] [address] [place] [address] Kelli Horton FNP 04/04/2024 Travel 03/29/[address] [facility] [address] [facility] [address] [facility] Results 03/15/[address] [facility] [address] [place] [address] [facility] Med Refill 03/15/[address] [facility] [address] [facility] [place] [address] [facility] Chronic low back pain, unspecified back pain laterality, unspecified whether sciatica present 03/07/[address] [facility] [address] [facility] [place] [address] Tammie Diaz, RN telephone call 03/04/[address] [facility] [address] [place], [place] [phone] [facility] Type 2 diabetes mellitus with stage 3 chronic kidney disease, without long-term current use of insulin, unspecified whether stage 3a or 3b CKD ([facility]/HCC) 03/04/[address] [facility] [address] [place] [address] [facility] Type 2 diabetes mellitus with stage 3 chronic kidney disease, without long-term current use of insulin, unspecified whether stage 3a or 3b CKD ([facility]/HCC) 02/15/2024 9:30 AM EST Clinical Support [facility] [address] [place] [phone] Tammie Diaz, peanut separator low back pain, unspecified back pain laterality, unspecified whether sciatica present (Primary Dx) 02/15/[address] [facility] [address] [place] [phone] Tammie Diaz, LADONNA OUTBOUND TELEMARKETER Renewal today 02/15/2024 Travel 02/12/[address] [facility] [address] [place] [phone] [facility] 01/29/[address] [facility] [address] [place] [address] Trice Freitas RN Right shoulder pain, unspecified chronicity 01/28/[address] [facility] [address], [place] [phone] [facility] Chronic low back pain, unspecified back pain laterality, unspecified whether sciatica present (Primary Dx) 01/28/[address] [phone] [facility] Med Refill 01/22/[address] [phone] Trice Freitas RNplatform operations director 01/19/[address] [phone] [facility] 01/16/2024 Orders Only GENERIC EXTERNAL DATA DEPARTMENT Provider, Generic External Data from Last 3 Months Immunizations Name Administration Dates Next Due Hep A, Adult 10/01/2009,02/13/2009 Hep B, adult 06/18/2000,11/30/1999,10/25/1999 Influenza Injectable Quadriv alant Preservative Free IIV4 MDCK 03/05/2020 Influenza injectable quadriv alent IIV4 with preservative 01/11/2018,03/27/2017 Influenza injectable quadriv alent preservative free 04/22/2023,12/16/2021,12/28/2020,02/14 Influenza, High Dose Seasona l, Preservative Free 12/25/2023,01/21/2018 Influenza, IIV3, injectable 11/21/2021,0 11/22/2019,01/21/2019,12/21 Influenza, Split (incl. veronica fied surface antigen) 01/13/2012 Influenza, Unspecified 11/21/2021 Moderna Covid-19 Vaccine 12+ 07/12/2021, 01/31/2021,06/22/2020,05/25 Pfizer Covid-19 Vaccine 12+ 12/25/2023 Pneumococcal Conjugate PCV 13 03/27/2017 Pneumococcal Conjugate PCV 20 04/22/2023 Pneumococcal Polysaccharide PPSV23 12/31/2007 RSV Bivalent 05/04/2023 TD (adult), 2 Lf tetanus tox oid, preservative free, adsorbed 03/29/2019,12/10/1999 Tdap 02/13/2009 Zoster, Recombinant 05/08/2020,03/05/2020 Social History Tobacco Use Types Packs/Day Years [...] Orientation Straight 01/20/2022 10 :15 AM EDT Last Filed Vital Signs Vital Sign Reading Time Taken Comments Blood Pressure 120/82 04/04/2024 11:22 AM EST Pulse 84 04/04/2024 11:22 AM EST Temperature 36.6 ??C (97.8 ??F) 04/04/2024 11:[address] Respiratory Rate 20 04/04/2024 11:22 AM EST Oxygen Saturation 98% 12/25/2023 10:24 AM EDT Inhaled Oxygen Concentration - - Weight 88.9 kg (196 lb) 04/04/2024 11:22 AM EST Height 147.3 cm (4' 10 ) 04/04/2024 11:22 AM EST Body Mass Index 40.96 04/04/2024 11:22 AM EST Plan of Treatment Upcoming Encounters Date Type Department Care Team (Late st Contact Info) Description 04/20/2024 9:30 AM EST Clinical Support [facility] [address] [place] [address] Tammie Diaz, RN Health Maintenance Due Date Last Done Comments CT Colonography 1957 FIT DNA/Cologuard 1957 FIT 1957 FOBT 1957 Sigmoidoscopy 1957 Alcohol/Substance Use Screening 1969 Lipid Panel 05/04/2024 05/04/2023, 05/2022, 07/01/2021, Additional history exists Mammogram 06/15/2024 06/16/2023, 04/2022, 04/15/2021, Additional history exists SDOH Screening 07/21/2024 07/22/2023 Diabetes: Hemoglobin A1C 10/02/2024 025, 12/25/2023, 07/22/2023, Additional history exists Eye Exam 03/23/2025 03/23/2023 Depression Screening 04/04/2025 04/04/2024, 04/04/19 25 Diabetes: Foot Exam 04/04/2025 04/04/2024, 04/04/2024, 04/04/2024, Additional history exists Tobacco Screening 04/04/2025 04/04/2024 Colonoscopy 05/03/2028 05/03/2018 Colorectal Cancer Screening 05/03/2028 DTaP/Tdap/Td Vaccines (3 - Td or Tdap) 03/29/2029 03/29/2019, 02/13/2009, 12/10/1999 Hepatitis B Vaccines Completed 06/18/2000, 11/30/1999, 10/25/1999 Hepatitis A Vaccines Completed 10/01/2009, 02/14/20 09 Cervical Cancer Screening Discontinued HPV/Cotest Discontinued 03/03/2016 Zoster Vaccines Completed 05/08/2020, 03/05/2020 Pneumococcal Vaccine: 65+ Years Completed 04/22/2023, 03/27/2017, 12/31/2007 RSV Patients and Patients Aged 60 years or older Completed 05/04/2023 COVID-19 Vaccine Completed 12/25/2023, , 01/31/2021, Additional history exists Influenza Vaccine Completed 12/25/2023, , 12/16/2021, Additional history exists HIB Vaccines Aged Out No longer eligi ble based on patient's age to complete this topic HPV Vaccines Aged Out No longer eligi ble based on patient's age to complete this topic IPV Vaccines Aged Out No longer eligi ble based on patient's age to complete this topic Meningococcal Vaccine Aged Out No beverley amira eligible based on patient's age to complete this topic Pap Smear Discontinued RSV under 20 months Aged Out No longe r eligible based on patient's age to complete this topic Rotavirus Vaccines Aged Out No longer eligible based on patient's age to complete this topic Procedures Procedure Name Priority Date/Time Associated Diagnosis Comments POCT GLUCOSE Routine 04/04/2024 11:24 AM EST Type 2 diabetes mellitus with stage 3 chronic kidney disease, without long-term current use of insulin, unspecified whether stage 3a or 3b CKD (CMS/HCC) POCT GLYCATED HEMOGLOBIN, TOTAL Routine 04/04/2024 11:24 AM EST Type 2 diabetes mellitus with stage 3 chronic kidney disease, without long-term current use of insulin, unspecified whether stage 3a or 3b CKD (CMS/HCC) POCT ANDRE-14 URINE DRUG SCREEN Routine 02/15/2024 9:24 AM EST Chronic low back pain, unspecified back pain laterality, unspecified whether sciatica present HIGH SENSITIVITY TROPONIN I Routine 01/16/2024 7:35 PM EDT MAGNESIUM Routine 01/16/2024 7:35 PM EDT COMPREHENSIVE METABOLIC PANEL Routine 01/16/2024 7:35 PM EDT CBC WITH AUTO DIFFERENTIAL Routine 01/16/2024 7:35 PM EDT SARS COV2/INFLUENZA A/B AND RSV RNA QL NAAT Routine 01/16/2024 7:35 PM EDT STREP A NUCLEIC ACID Routine 01/16/2024 7:35 PM EDT XR CHEST 2 VIEWS Routine 01/16/2024 7:19 PM EDT BI MAMMOGRAM SCREENING TOMOSYNTHESIS BILATERAL Routine 06/16/2023 10:15 AM EDT LIPID PANEL, STANDARD Routine 05/04/2023 8:32 AM EST Type 2 diabetes mellitus with stage 3 chronic kidney disease, without long-term current use of insulin, unspecified whether stage 3a or 3b CKD (CMS/HCC) HM COLONOSCOPY Routine 05/03/2018 ZZZ HISTORICAL HPV MRNA E6/E7 Routine 03/03/2016 11:45 AM EST from Last 3 Months or Most Recently Relevant to Health Maintenance Results * (ABNORMAL) POCT HGB A1C (04/04/2024 11:24 AM EST) Hemoglobin A1C 6.2(A) 4.0 - 6.0 % QC Media Lot # [id number] Lot# Expiration Date Blood 04/04/2024 11:2 4 AM EST [facility] POINT OF CARE TEST ENTER/EDIT ORDERABLES Final Result * POCT Glucose (04/04/2024 11:24 AM EST) Glucose Blood, POC 116 60 - 200 mg/dL QC Media Lot # [id number] Lot# Expiration Date ,025 Blood Capillary blood specimen / Unknown 04/04/2024 11:24 AM EST [facility] POINT OF CARE TEST ENTER/EDIT ORDERABLES Final Result * POCT ANDRE-14 Urine Drug Screen (02/15/2024 9:24 AM EST) Pathologist [facility] Opiate Screen, Urine Positive Urine Urine specimen obtained by clean catch procedure / Unknown 02/15/2024 9:24 AM EST Tammie West RN - 02/15/2024 9:24 AM EST UTOX cup Lot#[id number] Exp. 11/09/25 Internal Pass Control [facility] BULB INSPECTOR POINT OF CARE TEST ENTER/EDIT ORDERABLES Final Result * Strep A Nucleic Acid (01/16/2024 7:35 PM EDT) Pathologist [facility] IDNOW SERIAL# [id number] [facility] Strep A Nucleic Acid Negative Negative [facility] Comment:All test results mus t be correlated with clinical findings.This test has not been evaluated for monitoring treatment ofinfection.Additional follow-up testing using the culture method isrequired if the result is negative and clinical symptomspersist, or in the event of an acute rheumatic feveroutbreak. 01/16/2024 7:35 PM EDT 01/16/2024 7:39 PM EDT Generic External Data Provider LAB MICROBIOLOGY - GENERAL ORDERABLES Final Result [facility] [address] [place] [phone] * High Sensitivity Troponin I (01/16/2024 7:35 PM EDT) [facility] TROPONIN I HIGH SENSITIVITY <2.7 <3.5 - 17.0 ng/L [facility] Comment:The Rosas high sens itivity Troponin-I results should beused in conjunction with other diagnostic information suchas ECG, clinical observations and information, and patientsymptoms to aid in the diagnosis of [place]. 01/16/2024 7:35 PM EDT 01/16/2024 7:39 PM EDT Generic External Data Provider LAB BLOOD ORDERAB LES Final Result Performing Organization Address [facility] de Phone Number [facility] [address] [place] [phone] * SARS-CoV-2 RNA, Influenza A/B, and RSV RNA, Ql NAAT (01/16/2024 7:35 PM EDT) Pathologist [facility] Influenza A PCR NEGATIVE Negative [facility] Influenza B PCR NEGATIVE Negative [facility] Resp Syncy Virus RNA Qual PCR NEGATIVE Negative [facility] SARS COV2 PCR NEGATIVE Negative [facility] Comment:All test results mus t be correlated with clinical findings.Negative results do not preclude SARS-CoV2, influenza Avirus, influenza B virus and/or RSV infectionand should not be used as the sole basis for treatment orother patient management decisions. Negative results must becombined with clinical observations, patient history, andepidemiological information.This test has not been evaluated for monitoring treatment ofinfection.This test has been authorized by the FDA under an EmergencyUse Authorization (EUA) for use by authorized laboratories.Testing performed on the [employer] GeneXpert utilizingreal-time RT-PCR.All SARS CoV2 and positive influenza A/B results arereported to [facility]. 01/16/2024 7:35 PM EDT 01/16/2024 7:39 PM EDT Generic External Data Provider LAB MICROBIOLOGY - GENERAL ORDERABLES Final Result Performing Organization Address [facility] Co de Phone Number [facility] [address] [place] [phone] * (ABNORMAL) CBC auto differential (01/16/2024 7:35 PM EDT) Pathologist [facility] White Blood Count 7.7 4.8 - 10.8 X10*3/uL [facility] Red Blood Count 4.18(L) 4.20 - 5.50 X10*6/uL [facility] Hemoglobin 12.9 12.0 - 16.0 g/dl [facility] Hematocrit 37.4 37.0 - 47.0 % [facility] Mean Corpuscular Volume 89.5 80.0 - 98.0 fL [facility] Mean Corpuscular Hemoglobin 30.9 27.0 - 33.0 pg [facility] Mean Corpuscular HGB Conc 34.5 31.0 - 35.0 g/dl [facility] Red Cell Distribution Width 11.8 11.0 - 16.0 % [facility] Platelet Count 227 160 - 400 X10*3/uL [facility] Mean Platelet Volume 9.3(L) 9.4 - 12.3 fL [facility] Neutrophils Percent Auto 60.8 45 - 73 % [facility] Imm Gran Pct Auto 0.4 0.0 - 0.4 % [facility] Lymphocytes Percent Auto 25.8 20 - 40 % [facility] Monocytes Percent Auto 6.1 2 - 11 % [facility] Eosinophils Percent Auto 6.5(H) 0 - 4 % [facility] Basophils Percent Auto 0.4 0 - 2 % [facility] NRBC Pct Auto 0.0 0.0 - 0.2 /100WBC [facility] Neutrophils Absolute Auto 4.7 2.0 - 8.3 x10*3/uL [facility] Imm Gran Abs Auto 0.03 0.00 - 0.03 X10*3/uL [facility] Lymphocytes Absolute Auto 2.0 1.2 - 4.9 X10*3/uL [facility] Monocytes Absolute Auto 0.5 0.1 - 1.2 X10*3/uL [facility] Eosinophils Absolute Auto 0.5(H) 0.0 - 0.4 X10*3/uL [facility] Basophils Absolute Auto 0.0 0.0 - 0.2 X10*3/uL [facility] NRBC Abs Auto 0.000 0.0 - 0.012 X10*3/uL [facility] 01/16/2024 7:35 PM EDT 01/16/2024 7:39 PM EDT us Generic External Data Provider LAB BLOOD ORDERAB LES Final Result Performing Organization Address City/[facility]/ZIP Co de Phone Number [facility] [address] [place] [phone] * Magnesium (01/16/2024 7:35 PM EDT) Pathologist [facility] Magnesium 1.7 1.6 - 2.6 mg/dL [facility] 01/16/2024 7:35 PM EDT 01/16/2024 7:39 PM EDT Generic External Data Provider LAB BLOOD ORDERAB LES Final Result Performing Organization Address [facility] Co de Phone Number [facility] [address] [place] [phone] * (ABNORMAL) Comprehensive Metabolic Panel (01/16/2024 7:35 PM EDT) [facility] Sodium 139 135 - 145 mmol/L [facility] Potassium 3.7 3.3 - 5.1 mmol/L [facility] Chloride 102 96 - 108 mmol/L [facility] Carbon Dioxide 29 22 - 29 mmol/L [facility] Anion Gap 12 12 - 20 [facility] Urea Nitrogen (BUN) 21(H) 9 - 16 mg/dL [facility] Creatinine, Serum 0.92 0.5 - 1.4 mg/dL [facility] Creatinine Clr Calc Pharmacy 56.6 [facility] Comment:Provided height and weight: 149.86 cm,84.395 kg.eGFR (calculated from the MDRD study equation) and eCrCl(calculated from the Cockcroft-Gault equation) are based ondifferent parameters and may not yield comparable results.If eCrCl result is absurd, please check patient'sheight/weight. Estimated Glomerular Filt Rate >60 [facility] Comment:NOTE: For -Am erican individuals, multiply the result by 1.210.Chronic Kidney Disease: Estimated GFR < 60 mL/min/1.02c4Icovhp Kidney Disease: Estimated GFR < 15 mL/min/1.73m2 Glucose 133(H) 60 - 115 mg/dL [facility] Calcium 9.3 8.4 - 10.2 mg/dL [facility] Bilirubin, Total 0.2 0.0 - 1.0 mg/dL [facility] Aspartate Amino Transferase 29 5 - 31 U/L [facility] Alanine Aminotransferase 37(H) 0 - 31 U/L [facility] Total Protein 7.0 6.5 - 8.0 g/dL [facility] Albumin Level 3.9 3.5 - 5.0 g/dL [facility] Alkaline Phosphatase 98 39 - 117 U/L [facility] 01/16/2024 7:35 PM EDT 01/16/2024 7:39 PM EDT us Generic External Data Provider LAB BLOOD ORDERAB LES Final Result Performing Organization Address City/State/[facility] Co de Phone Number [facility] [address] [place] [address] [phone] * XR Chest 2 Views (01/16/2024 7:19 PM EDT) Anatomical Region Laterality Modality Chest Radiographic Lia ging 01/16/2024 7:19 PM EDT Narrative 01/16/2024 9:07 PM EDT ?[address] ?[place] [address] ?XRay Report ? Signed ? Patient: Ludivina Hussein ?MR#: [id number] ? : 1955 ?Acct:[id number] ? Age/Sex: 68 / F ?ADM Date: 10/26/24 ? Loc: HO.ED ? Attending Dr: ? Ordering Physician: Le Cason ?? Date of Service: 01/16/24 ?? Procedure(s): XR chest 2V ?? Accession Number(s): [id number] ? cc: Le Cason; SolKelli [facility] ? EXAMINATION: ?? XR CHEST ? CLINICAL INFORMATION: ?? cough, chest congestion ? COMPARISON: ?? Chest radiograph 11/13/2021 ? TECHNIQUE: ?? PA and lateral views of the chest were obtained. ? FINDINGS: ?? The lungs are well expanded. No focal consolidation, effusion, edema, ?? or pneumothorax. The cardiomediastinal silhouette is within normal ?? limits for technique and unchanged. No acute osseous abnormality. ? XR/XR chest 2V ?? IMPRESSION: ?? No acute pulmonary disease. No significant interval change compared to ?? 11/13/2021. ? Electronically signed by: ??Nadine Pickens DO ??01/16/2024 09:04 PM EDT ? Dictated By: ?Nadine Pickens ? Signed By: ?<Electronically signed by Nadine Pickens in OV> ? 01/16/242103 ? DD/ 18 ? TD/TT: 01/16/241945 ? Wire Fence Erector: ? Procedure Note Donguillermoter, Image - 01/16/2024 [place] [address] XRay Report Signed Patient: Ludivina Hussein NMR#: [id number] : 8Acct:[id number] Age/Sex: 68 / FADM Date: 01/16/24 Loc: HO.ED Attending Dr: Ordering Physician: Le Cason Date of Service: 01/16/24 Procedure(s): XR chest 2V Accession Number(s): [id number] cc: Le Cason; [facility] EXAMINATION: XR CHEST CLINICAL INFORMATION: cough, chest congestion COMPARISON: Chest radiograph 11/13/2021 TECHNIQUE: PA and lateral views of the chest were obtained. FINDINGS: The lungs are well expanded. No focal consolidation, effusion, edema, or pneumothorax. The cardiomediastinal silhouette is within normal limits for technique and unchanged. No acute osseous abnormality. XR/XR chest 2V IMPRESSION: No acute pulmonary disease. No significant interval change compared to 11/13/2021. Electronically signed by: Nadine Pickens DO 01/16/2024 09:04 PM EDT Dictated By: Nadine Pickens Signed By: <Electronically signed by Nadine Pickens in OV> 01/16/242103 DD/ 18 TD/TT: 01/16/241945 Wire Fence Erector: [facility] External Provider IMG XR PROCEDURES Final Result * BI Mammogram Screening Tomosynthesis Bilateral (06/16/2023 10:15 AM EDT) Anatomical Region Laterality Modality Breast Bilateral Mammography 06/16/2023 10:1 5 AM EDT Narrative 07/02/2023 6:24 AM EDT ? [facility] [place] ? [address] ?[place] [address] ? Mammography Report ? Signed ? Patient: Melissa Husseinjusten Cox ?MR#: [id number] ? : 1955 ?Acct:[id number] ? Age/Sex: 67 / F ?ADM Date: 06/16/23 ? Loc: HO.MAMMO ? Attending Dr: Kelli [place] BULB INSPECTOR ? Ordering Physician: Sol,Kelli BULB INSPECTOR ?Results: 1Nega ?? tive ? Date of Service: 06/16/23 ?Follow Up: 1 Year From Orig ?? inal Mammogram ? Procedure(s): MM tomosynthesis screening BI ?? Accession Number(s): [id number] ? cc: Sol,Kelli BULB INSPECTOR ? EXAMINATION: ?? MM SCREENING DIGITAL BREAST TOMOSYNTHESIS, BILATERAL ? CLINICAL INFORMATION: ? Screening. Asymptomatic. ? COMPARISON: ?? Mammography: This study is compared with prior exams dating back to ?? 2019. ? TECHNIQUE: ?? Digital breast tomosynthesis is performed in both the craniocaudal and ?? mediolateral oblique views along with computer-aided detection (CAD). ?? Synthesized 2D images are generated from the tomosynthesis. ? FINDINGS: ?? The breasts are almost entirely fatty (ACR BI-RADS breast composition ?? Category a). ? There are no significant masses, abnormal calcifications, or other ?? abnormalities. ? MM/MM tomosynthesis screening BI ?? IMPRESSION: ?? No mammographic evidence of malignancy. ? ASSESSMENT: ? BI-RADS BI-RADS 1 - Negative ? RECOMMENDATION: ?? Routine annual mammography screening. ? 1 year F/U ? This examination should not preclude the clinical evaluation of a ?? suspicious palpable abnormality. ? This patient's information was entered into a reminder system with a ?? target due date for their next mammogram. ? Dictated By: ?July Giles MD ? Signed By: ?<Electronically signed by July Giles MD in OV> ? 07/02/23 0620 ? DD/ 1015 ? TD/TT: ? Wire Fence Erector: ? Procedure Note Shekhar Salazar - 07/02/2023 [facility] [address] [place] [address] [place] [address] Mammography Report Signed Patient: Ludivina Hussein NMR#: [id number] : 8Acct:[id number] Age/Sex: 67 / FADM Date: 06/16/23 Loc: GERRY Attending Dr: Kelli Horton BULB INSPECTOR Ordering Physician: Kelli Horton FNPResults: 1Nega tive Date of Service: 06/16/23Follow Up: 1 Year From Orig inal Mammogram Procedure(s): MM tomosynthesis screening BI Accession Number(s): [id number] cc: [facility] BULB INSPECTOR EXAMINATION: MM SCREENING DIGITAL BREAST TOMOSYNTHESIS, BILATERAL CLINICAL INFORMATION: Screening. Asymptomatic. COMPARISON: Mammography: This study is compared with prior exams dating back to 2019. TECHNIQUE: Digital breast tomosynthesis is performed in both the craniocaudal and mediolateral oblique views along with computer-aided detection (CAD). Synthesized 2D images are generated from the tomosynthesis. FINDINGS: The breasts are almost entirely fatty (ACR BI-RADS breast composition Category a). There are no significant masses, abnormal calcifications, or other abnormalities. MM/MM tomosynthesis screening BI IMPRESSION: No mammographic evidence of malignancy. ASSESSMENT: BI-RADS BI-RADS 1 - Negative RECOMMENDATION: Routine annual mammography screening. 1 year F/U This examination should not preclude the clinical evaluation of a suspicious palpable abnormality. This patient's information was entered into a reminder system with a target due date for their next mammogram. Dictated By: July Giles MD Signed By: <Electronically signed by July Giles MD in OV> 07/02/23 0620 DD/ 1015 TD/TT: Wire Fence Erector: [facility] BULB INSPECTOR IMG BI PROCEDURES Final Resul t * Lipid Panel, Standard (05/04/2023 8:32 AM EST) Triglycerides 118 <150 mg/dL [facility] Comment:Desirable Triglyceri de: less than 150 mg/dLBorderline High Triglyceride 150-199 mg/dLHigh Triglyceride: 200-499 mg/dLVery High Triglyceride: greater than or equal to 5OO mg/dL Cholesterol 128 <200 mg/dL [facility] Comment:Desirable Cholestero l: less than 200 mg/dLBorderline High Cholesterol: 200-239 mg/dLHigh Cholesterol: greater than 239 mg/dL LDL Cholesterol Calculated 59 <100 mg/dL [facility] Comment:Desirable LDL: less than 100 mg/dLNear Optimal/Above Optimal LDL: 110- 129 mg/dLBorderline High LDL: 130-159 mg/dLHigh LDL: 160-189 mg/dLVery High LDL: greater than or equal to 190 mg/dL HDL Cholesterol 46 >40 mg/dL [facility] Comment:Desirable HDL: great er than 40 mg/dL Note: This HDL assay may give artificially low results in patients with liver disease. Blood Venous blood specimen / Unknown 05/04/2023 8:32 AM EST 05/04/2023 11:34 AM EST [facility] BULB INSPECTOR LAB BLOOD ORDERABLES Final Re sult [facility] [address] [place] [phone] * Hm Colonoscopy (05/03/2018) Colonoscopy Normal Normal Narrative Madeleine Valle - 05/03/2018 Repeat in 10 years Historical Provider HEALTH MAINTENANCE Final Result * HPV mRNA E6/E7 (03/03/2016 11:45 AM EST) HPV mRNA E6/E7 Not Detected NOT DETECTED [facility] Comment: This test was performed using the APTIMA(R) HPV Assay ([employer] This assay detects E6/E7 viral messenger RNA (mRNA) from 14 high-risk HPV types (16,18,31,33,35,39,45,51, 52,56,58,59,66,68). For additional information please refer to: http://education.Railpod.Surefire Social/faq/QEL544a0 (This link is being provided for informational/ educational purposes only.) Test Performed by Yuki Pace, [employer] [facility], [address] [place] [address] Leonardo Cano M.D., Ph.D., Director of Laboratories , [facility] [id number] Please note: ??Effective 12/03/2015, HPV testing will be performed using [employer]'s APTIMA test which targets mRNA. Detecting mRNA instead of DNA, as in older methods, offers significant improvements in specificity. 03/03/2016 11:4 5 AM EST us Nandini Biswas NP HISTORICAL/NON ORDERABLE LABS Fi nal Result [facility] [address] from Last 3 Months or Most Recently Relevant to Health Maintenance [place] [address] [place] [address] - SCO Care Teams Upholstery Cleaner Relationship Specialty Start Date End Date Kelli Horton FNP [address] [place] [phone] PCP - General Family Medicine 05/20/22
--- OUTSIDE RECORDS SUMMARY | 2024-04-13 10:18 | XMS_ITS | Encounter Summary ---
Author Organization [facility] [employer] [facility] [employer] Address [address] [facility] 7t [place] [address] Care Team Providers Care Animal Health Technician Name Role Phone Kelli Horton [facility] Primary Care Provider [phone] Reason for Visit * Reason Onset Date Comments Results 03/29/2024 Encounter Details Date Type Department Care Team ([facility] st Contact Info) Description 03/29/2024 Telephone [facility] [address] [place] [address] [place] [facility] [address] [place] [address] Results Social History Tobacco Use Types Packs/Day Years [...] encounter Miscellaneous Notes * Telephone Encounter - Sydni LUIS Romo - 03/29/2024 10:32 AM EST Result Communication Resulted Orders XR Shoulder 2+ Views Right Narrative [address] [address] XRay Report Signed Patient: Ludivina Hussein MR#: [id number] : 1955 Acct:[id number] Age/Sex: 68 / F ADM Date: 12/28/23 Loc: [facility] Attending Dr: Kelli Horton CRIMINAL LEGAL ASSISTANT Ordering Physician: Kelli Horton Date of Service: 12/28/23 Procedure(s): XR shoulder RT min 2V Accession Number(s): [id number] cc: Kelli Horton [facility] EXAMINATION: XR SHOULDER RIGHT CLINICAL INFORMATION: Acute right shoulder pain. COMPARISON: XR Right shoulder 02/16/2022 TECHNIQUE: AP external rotation, Grashey, scapular Y, and axillary views of the right shoulder. FINDINGS: Surgical anchors in the humeral head. No fracture. Glenohumeral and acromioclavicular alignment is anatomic with normal joint space. No abnormal soft tissue calcifications. XR/XR shoulder RT min 2V IMPRESSION: No acute fracture or dislocation. Electronically signed by: Beltran Loomis MD 03/15/2024 10:42 AM EST Dictated By: Beltran Loomis MD Signed By: <Electronically signed by Beltran Loomis MD in OV> 03/15/24 1042 DD/ 0819 TD/TT: 12/28/23 0843 Class A Regional Truck Driver: 10:32 AM Results were successfully communicated with the patient and they acknowledged their understanding. * Telephone Encounter - Sydni Romo [place] - 03/29/2024 10:32 AM EST ----- Message from Kelli Horton sent at 03/24/2024 10:27 PM EST ----- Please let patient know that xray was negative for fracture. She should complete PT as discussed. TY! documented in this encounter Plan of Treatment Upcoming Encounters Date Type Department Care Team (Late st Contact Info) Description 04/20/2024 9:30 AM EST Clinical Support [facility] [address] [place] [address] Tammie Diaz RN documented as of this encounter Visit Diagnoses Not on filedocumented in this encounter Additional Health Concerns Assessment Noted Time PHQ-9 Depression Total Score: 0 12/25/19 24 10:25 AM EDT documented as of this encounter Care Teams Animal Health Technician Relationship Specialty Start Date End Date Kelli Horton FNP [address] [place] [address] PCP - General Family Medicine 05/20/22 documented as of this encounter
--- OUTSIDE RECORDS SUMMARY | 2024-04-13 10:19 | XMS_ITS | Encounter Summary ---
Author Organization [employer] Address [address] [facility] 7t [place] [address] Care Team Providers Care Sample Processor Name Role Phone [place] [facility] Primary Care Provider [phone] Reason for Visit * Reason Comments Med Refill Encounter Details Date Type Department Care Team ([facility] st Contact Info) Description 03/15/2024 Refill [facility] [address] [place] [address] [facility] [address] [place] [address] Chronic low back pain, unspecified back pain laterality, unspecified whether sciatica present Social History Tobacco Use Types Packs/Day Years [...] Description 04/20/2024 9:30 AM EST Clinical Support [facility] [address] [place] [address] Tammie Diaz RN documented as of this encounter Visit Diagnoses Diagnosis Chronic low back pain, unspecified back pain laterality, unspecified whether sciatica present documented in this encounter Additional Health Concerns Assessment Noted Time PHQ-9 Depression Total Score: 0 12/25/19 24 10:25 AM EDT documented as of this encounter Care Teams Sample Processor Relationship Specialty Start Date End Date Kelli Horton FNP [address] [place] [address] PCP - General Family Medicine 05/20/22 documented as of this encounter
--- OUTSIDE RECORDS SUMMARY | 2024-04-13 10:19 | XMS_ITS | Encounter Summary ---
Author Organization [employer] Address [address] [facility] 7t [place] [address] Care Team Providers Care Candle Extrusion Machine Operator Name Role Phone [place] [facility] Primary Care Provider [phone] Reason for Visit * Reason Onset Date Comments Med Refill 11/18/2023 Encounter Details Date Type Department Care Team ([facility] st Contact Info) Description 11/18/2023 Telephone [facility] [address] [place] [address] [facility] [address] [place] [address] Med Refill Social History Tobacco Use Types [...] encounter Miscellaneous Notes * Telephone Encounter - Jorge Allen - 11/18/2023 1:40 PM EDT Tc from pt requesting a refill for HYDROcodone-acetaminophen (Whiteface) 5-325 MG tablet documented in this encounter Plan of Treatment Upcoming Encounters Date Type Department Care Team (Late st Contact Info) Description 04/20/2024 9:30 AM EST Clinical Support [facility] [address] [place] [address] Tammie Diaz RN documented as of this encounter Visit Diagnoses Not on filedocumented in this encounter Additional Health Concerns Assessment Noted Time PHQ-9 Depression Total Score: 0 07/22/19 24 9:10 AM EDT documented as of this encounter Care Teams Candle Extrusion Machine Operator Relationship Specialty Start Date End Date Kelli Horton FNP [address] [place] [address] PCP - General Family Medicine 05/20/22 documented as of this encounter
--- OUTSIDE RECORDS SUMMARY | 2024-04-13 10:19 | XMS_ITS | Encounter Summary ---
Author Organization [employer] Address [address] [facility] 7t [place] [address] Care Team Providers Care Director Of Cardiac Rehabilitation Name Role Phone [facility] Primary Care Provider [phone] Reason for Visit * Reason Comments Med Refill Encounter Details Date Type Department Care Team (Late st Contact Info) Description 12/17/2023 Refill [facility] [address] [place] [address] [facility] [address] [place] [address] Chronic low back pain, unspecified back pain laterality, unspecified whether sciatica present Social History Tobacco Use Types Packs/Day Years Used Date Smoking Tobacco: Former Cigarettes Smokeless Tobacco: Never Depression Answer Date Recorded Patient Health Questionnaire-9 Score 0 07/22/2023 Patient Health Questionnaire-9 Score 0 07/22/2023 Last PHQ-9: Questionnaire Data Not on file 0 07/22/2023 Housing Stability Answer Date Recorded What is [...] Date Recorded Patient Health Questionnaire-2 Score 0 07/22/2023 Comments Unknown Sex and Gender Information Value [...] 9:30 AM EST Clinical Support [facility] [address] [place] [address] Tammie Diaz RN documented as of this encounter Visit Diagnoses Diagnosis Chronic low back pain, unspecified back pain laterality, unspecified whether sciatica present documented in this encounter Additional Health Concerns Assessment Noted Time PHQ-9 Depression Total Score: 0 07/22/19 24 9:10 AM EDT documented as of this encounter Care Teams Director Of Cardiac Rehabilitation Relationship Specialty Start Date End Date Kelli Horton FNP [address] [place] [address] PCP - General Family Medicine 05/20/22 documented as of this encounter
--- OUTSIDE RECORDS SUMMARY | 2024-04-13 10:19 | XMS_ITS | Encounter Summary ---
Author Organization [employer] Address [address] [facility] 7t [place] [address] Care Team Providers Care After School Tutor Name Role Phone Kelli Horton RESIDENT SERVICES SUPERVISOR Primary Care Provider [phone] Encounter Details Date Type Department Care Team ([facility] st Contact Info) Description 02/06/2023 Abstract [facility] [address] [place] [address] Madeleine Valle Social History Tobacco Use Types Packs/Day Years Used Date Smoking Tobacco: Former Cigarettes Smokeless Tobacco: Never Depression Answer Date Recorded Patient Health Questionnaire-9 Score 21 03/21/2022 Housing Stability Answer Date Recorded What is your housing situation today? I have housing today, but I am worried about losing housing in the future 01/05/[address] you li ve. Do you have problems with any of the following? I am not sure 01/05/2023 Food Insecurity Answer Date Recorded Within the past 12 months, y ou worried that your food would run out before you got money to buy more: Never True 01/05/2023 Within the past 12 months,th e food you bought just didn't last and you didn't have enough money to get more: Never True Transportation Answer Date Recorded In the past 12 months, has l ack of transportation kept you from medical appts, meetings, work or from getting things needed for daily living? Yes, it has kept me from medical appointments or getting medications. 12/30/2022 Utilities Answer Date Recorded In the past 12 months, has t he electric, gas, oil or water company threatened to shut off services in your home? No 01/05/2023 Depression Answer Date Recorded Patient Health Questionnaire-2 Score 6 03/21/2022 Comments Unknown Sex and Gender Information Value [...] Description 04/20/2024 9:30 AM EST Clinical Support [facility] [address] [place] [address] Tammie Diaz RN documented as of this encounter Procedures Procedure Name Priority Date/Time Associated Diagnosis Comments COLONOSCOPY Routine 05/03/2018 documented in this encounter Results * Colonoscopy (05/03/2018) Colonoscopy Normal Normal Narrative Madeleine Valle - 05/03/2018 Repeat in 10 years us Historical Provider HEALTH MAINTENANCE Final Result documented in this encounter Visit Diagnoses Not on filedocumented in this encounter Additional Health Concerns Assessment Noted Time PHQ-9 Depression Total Score: 21 03/21/ 022 10:03 AM EST documented as of this encounter Care Teams After School Tutor Relationship Specialty Start Date End Date Kelli Horton FNP [address] [place] [address] PCP - General Family Medicine 05/20/22 documented as of this encounter
--- OUTSIDE RECORDS SUMMARY | 2024-04-13 10:19 | XMS_ITS | Encounter Summary ---
Author Organization [employer] Address [address] [facility] [address]t [place] [address] Care Team Providers Care Continuity Person Name Role Phone Beatriz Ford [facility] Primary Care Provider Aj bradford [facility] Primary Care Provider [phone] Reason for Visit * Reason Comments Med Refill Encounter Details Date Type Department Care Team ([facility] st Contact Info) Description 04/03/2022 Refill [facility] MED[facility]INE [address] [place] [address] Name, MD [place] [address] [place] [address] Chronic pain syndrome Social History Tobacco Use Types Packs/Day Years Used Date Smoking Tobacco: Never Assessed Depression Answer Date Recorded Patient Health Questionnaire-9 Score 21 03/21/2022 Depression Answer Date Recorded Patient Health Questionnaire-2 Score 6 03/21/2022 Comments Unknown Sex and Gender Information Value Date Recorded Sex Assigned at Female 01/20/2022 10:15 AM EDT Legal Sex Female 10:15 AM EDT Gender Identity Female 01/20/2022 10:15 AM EDT Sexual Orientation Straight 01/20/2022 10 :15 AM EDT COVID-19 Exposure Response Date Recorded In the last 10 days, have yo u been in contact with someone who was confirmed or suspected to have Coronavirus/COVID-19? No / Unsure 03/21/2022 9:31 AM EST documented as of this encounter Miscellaneous Notes * Telephone Encounter - Madelin English - 04/04/2022 3:31 PM EST Pt requesting status on hydrocodone med , please contact .. (Czech speaker) documented in this encounter Plan of Treatment Upcoming Encounters Date Type Department Care Team (Late st Contact Info) Description 04/20/2024 9:30 AM EST Clinical Support [facility] [address] [place] [address] Tammie Diaz RN documented as of this encounter Visit Diagnoses Diagnosis Chronic pain syndrome documented in this encounter Additional Health Concerns Assessment Noted Time PHQ-9 Depression Total Score: 21 022 10:03 AM EST documented as of this encounter Care Teams Continuity Person Relationship Specialty Start Date End Date Beatriz Ford FNP PCP - General Family Medicine 02/21/22 05/19/22 Kelli Horton FNP [address] [place] [phone] PCP - General Family Medicine 05/20/22 documented as of this encounter
--- OUTSIDE RECORDS SUMMARY | 2024-04-13 10:19 | XMS_ITS | Encounter Summary ---
Author Organization [employer] Address [address] [facility] 7 [place] [address] Care Team Providers Care Vehicle Body Sander Name Role Phone [facility] Primary Care Provider [phone] Reason for Visit * Reason Onset Date Comments Referral 12/11/2022 Encounter Details Date Type Department Care Team (Late Contact Info) Description 12/11/2022 Telephone [facility] [address] [place] [address] [facility] [address] [place] [address] Referral Social History Tobacco Use Types Packs/Day Years [...] encounter Miscellaneous Notes * Telephone Encounter - Carie Rose - 12/11/2022 9:24 AM EDT Tc from pt calling in regards to podiatry referral. States they are requesting OV notes and medication list to be faxed to [phone]. documented in this encounter Plan of Treatment Upcoming Encounters Date Type Department Care Team (Late st Contact Info) Description 04/20/2024 9:30 AM EST Clinical Support [facility] [address] [place] [address] Tammie Diaz RN documented as of this encounter Visit Diagnoses Not on filedocumented in this encounter Additional Health Concerns Assessment Noted Time PHQ-9 Depression Total Score: 21 022 10:03 AM EST documented as of this encounter Care Teams Vehicle Body Sander Relationship Specialty Start Date End Date Kelli Horton FNP [address] [place] [address] PCP - General Family Medicine 05/20/22 documented as of this encounter
--- OUTSIDE RECORDS SUMMARY | 2024-04-13 10:19 | XMS_ITS | Encounter Summary ---
Author Organization [employer] Address [address] [facility] 7t [place] [address] Care Team Providers Care Bookkeeping Manager Name Role Phone [place] [facility] Primary Care Provider [phone] Reason for Visit * Reason Onset Date Comments Med Refill 01/28/2024 Encounter Details Date Type Department Care Team ([facility] st Contact Info) Description 01/28/2024 Telephone [facility] MEDICINE [address] [place] [address] [facility] [address] [place] [address] Med Refill Social History Tobacco Use Types [...] Description 04/20/2024 9:30 AM EST Clinical Support [facility] [address] [place] [address] Tammie Diaz RN documented as of this encounter Visit Diagnoses Not on filedocumented in this encounter Additional Health Concerns Assessment Noted Time PHQ-9 Depression Total Score: 0 12/25/19 24 10:25 AM EDT documented as of this encounter Care Teams Bookkeeping Manager Relationship Specialty Start Date End Date Kelli Horton FNP [address] [place] [address] PCP - General Family Medicine 05/20/22 documented as of this encounter
--- OUTSIDE RECORDS SUMMARY | 2024-04-13 10:19 | XMS_ITS | Encounter Summary ---
Author Organization [employer] Address 75 [facility] 7t [place] [address] Care Team Providers Care Adult Basic Education Instructor Name Role Phone [place] [facility] Primary Care Provider [phone] Reason for Visit * Reason Onset Date Comments Med Refill 02/11/2023 Encounter Details Date Type Department Care Team ([facility] st Contact Info) Description 02/11/2023 Telephone [facility]INE [address] [place] [address] [facility] [address] [place] [address] Med Refill Social History Tobacco Use Types [...] encounter Miscellaneous Notes * Telephone Encounter - Miriam Hu - 02/11/2023 10:09 AM EST Tc from pt requesting med refill on; HYDROcodone-acetaminophen ([place]by) 5-325 MG tablet documented in this encounter Plan of Treatment Upcoming Encounters Date Type Department Care Team (Late st Contact Info) Description 04/20/2024 9:30 AM EST Clinical Support [facility] [address] [place] [address] Tammie Diaz RN documented as of this encounter Visit Diagnoses Not on filedocumented in this encounter Additional Health Concerns Assessment Noted Time PHQ-9 Depression Total Score: 21 022 10:03 AM EST documented as of this encounter Care Teams Adult Basic Education Instructor Relationship Specialty Start Date End Date Kelli Horton FNP [address] [place] [address] PCP - General Family Medicine 05/20/22 documented as of this encounter
--- OUTSIDE RECORDS SUMMARY | 2024-04-13 10:19 | XMS_ITS | Encounter Summary ---
Author Organization [employer] Address 75 [facility] 7t [place] [address] Care Team Providers Care Explosive Ordnance Disposal Manager Name Role Phone [place] [facility] Primary Care Provider [phone] Encounter Details Date Type Department Care Team (Late st Contact Info) Description 09/30/[address] [address] [place] [address] [address] Social History Tobacco Use Types Packs/Day Years [...] Description 04/20/2024 9:30 AM EST Clinical Support [address] [phone] Tammie Diaz RN documented as of this encounter Procedures Procedure Name Priority Date/Time Associated Diagnosis Comments MAMMOGRAPHY Routine 05/22/2022 3:11 PM EST documented in this encounter Results * Mammography (05/22/2022 3:11 PM EST) Mammogram BI-RADS 1 Negative Comment:Routine Annual Mammo gram Anatomical Region Laterality Modality Other Darcy Temple MD HEALTH MAINTENANCE Final Res ult documented in this encounter Visit Diagnoses Not on filedocumented in this encounter Additional Health Concerns Assessment Noted Time PHQ-9 Depression Total Score: 21 03/21/ 022 10:03 AM EST documented as of this encounter Care Teams Explosive Ordnance Disposal Manager Relationship Specialty Start Date End Date Kelli Horton FNP [address] [place] [address] PCP - General Family Medicine 05/20/22 documented as of this encounter
--- OUTSIDE RECORDS SUMMARY | 2024-04-13 10:19 | XMS_ITS | Encounter Summary ---
Author Organization [employer] Address 75 [facility] 7t [place] [address] Care Team Providers Care Java Web Application Developer Name Role Phone [place] [facility] Primary Care Provider [phone] Reason for Visit * Reason Onset Date Comments Nurse Triage 02/11/2023 Encounter Details Date Type Department Care Team ([facility] st Contact Info) Description 02/11/2023 Telephone [facility] MEDICINE [address] [place] [address] [place] [facility] [address] [place] [address] Nurse Triage Social History Tobacco Use Types Packs/Day Years [...] past 12 months, has t he electric, [employer], oil or water [employer] threatened to shut off services in your [...] encounter Miscellaneous Notes * Telephone Encounter - Anna Marie Rolon - 03/12/2023 1:26 PM EST Note has been Faxed to [facility] * Telephone Encounter - Elba Artis RN - 02/11/2023 10:43 AM EST called pt to triage, spoke to pt. pt states having a lot of difficulty sleeping lately. pt states uses a CPAP machine, but stopped using it recently due to not having any tubing for a long time. pt states does not know who she ordered from or how to get any more. pt reports wakes during the night sometimes with a sensation of choking. pt requesting appt with PCP regarding sleep problems and was given appt on 02/20 at 11:00 for exam. will task to team nurses regarding the CPAP supplies and where to order. pt understands and agrees with plan. insurance verified. Protocol Used: Insomnia (Adult) Protocol-Based Disposition: See in Office or Video Visit within 2 Weeks Video visit not offered Positive Triage Questions: * Excessive daytime sleepiness is an ongoing problem (> 2 weeks) * Insomnia is an ongoing problem (> 2 weeks) * All higher-acuity triage questions were negative Care Advice Discussed: * Reassurance and Education - Dfficulty Sleeping * Tips for Good Sleep * Tips for Good Sleep - Your Bedroom * Tips for Good Sleep - When You Can't Fall Asleep * Tips for Good Sleep - When Worrying Keeps You Awake * Tips for Good Sleep - What To Avoid * How Much Sleep Is Enough? * Reasons To Call Back - Insomnia symptoms persist over 2 weeks - You become worse * Telephone Encounter - Miriam Rangelo - 02/11/2023 10:10 AM EST Symptom: Sleeping Difficulty Outcome: Schedule an appointment to be seen within 24 hours Reason: This is the only possible outcome for this symptom Belizean Speaker documented in this encounter Plan of Treatment Upcoming Encounters Date Type Department Care Team (Late st Contact Info) Description 04/20/2024 9:30 AM EST Clinical Support [facility] MEDICINE [address] [place] [address] Tammie Diaz RN documented as of this encounter Visit Diagnoses Not on filedocumented in this encounter Additional Health Concerns Assessment Noted Time PHQ-9 Depression Total Score: 21 03/21/ 022 10:03 AM EST documented as of this encounter Care Teams Java Web Application Developer Relationship Specialty Start Date End Date Kelli Horton FNP [address] [place] [address] PCP - General Family Medicine 05/20/22 documented as of this encounter
--- OUTSIDE RECORDS SUMMARY | 2024-04-13 10:19 | XMS_ITS | Encounter Summary ---
Author Organization [employer] Address 75 [facility] 7t [place] [address] Care Team Providers Care Art Glass Setter Name Role Phone Kelli Horton [facility] Primary Care Provider [phone] Reason for Visit * Reason Comments Med Refill Encounter Details Date Type Department Care Team (Late st Contact Info) Description 12/16/2022 Refill [facility] MEDICINE [address] [place] [address] [phone] Name, MD Har[place] [address] [place] [address] [phone] Chronic low back pain, unspecified back pain [...] Description 04/20/2024 9:30 AM EST Clinical Support [facility] MEDICINE [address] [place] [phone] Tammie Diaz RN documented as of this encounter Visit Diagnoses Diagnosis Chronic low back pain, unspecified back pain laterality, unspecified whether sciatica present documented in this encounter Additional Health Concerns Assessment Noted Time PHQ-9 Depression Total Score: 21 022 10:03 AM EST documented as of this encounter Care Teams Art Glass Setter Relationship Specialty Start Date End Date Kelli Horton FNP [address] [place] [address] PCP - General Family Medicine 05/20/22 documented as of this encounter
--- OUTSIDE RECORDS SUMMARY | 2024-04-13 10:20 | XMS_ITS ---
Author Organization [facility] Address [address] [place] [address] Care Team Providers Care Comic Illustrator Name Role Phone [facility] [place] Primary Care Provider Shivani kellogg Jason Lora Unavailable [phone] ALLERGIES No Known Allergies REASON FOR VISIT [...] 02/25/2024 Encounters Encounter Location Date Provider Diagnosis [facility] [address] [place] [address] 02/25/2024 Jason Lora Other cirrhosis of liver [...] 09:20:00 AM, [address], [address], [place], [address], Progress Notes * Examination Category Sub-Category Detail [...]
--- OUTSIDE RECORDS SUMMARY | 2024-04-13 10:20 | XMS_ITS | Encounter Summary ---
Author Organization [facility] Address [address] [place] [address] Phone Care Team Providers Care Skid Worker Name Role Phone [facility] Primary Care Provider [phone] Encounter Details Date Type Department Care Team ([facility] Contact Info) Description 12/23/2021 Documentation Only [facility] [address] [place] [address] Shaun Morales PA [address] [place] [address] Social History Tobacco Use Types Packs/Day Years Used Date Smoking Tobacco: Never Alcohol Use Standard Drinks/Week Comments No 0 (1 standard drink = 0.6 oz pure alcohol) Alcoholic Drinks/day: Occasional social drink Comments Unknown Sex and Gender Information Value Date Recorded Sex Assigned at Not on file Legal Sex Female 4:34 PM EST Gender Identity Not on file Sexual Orientation Not on file documented as of this encounter Plan of Treatment Upcoming Encounters Date Type Department Care Team (Late Contact Info) Description 11/28/2024 1:30 PM EDT Office Visit [facility] [address] [facility] [place] [phone] Danny Mahoney MD [address] [phone] documented as of this encounter Visit Diagnoses Not on filedocumented in this encounter Care Teams Skid Worker Relationship Specialty Start Date End Date Slo Kelli [address] [place] [address] PCP - General 11/26/23 documented as of this encounter
--- OUTSIDE RECORDS SUMMARY | 2024-04-13 10:20 | XMS_ITS | Clinical Summary ---
Author Organization [facility] Address [address] [place] [address] Phone Care Team Providers Care Diploma Pharmacy Technician Name Role Phone Kelli Horton Primary Care Provider Allergies Active Allergy Reactions Criticality Noted Date Comments Morphine Sulfate Er Itching 09/01/2023 Medications clonazePAM (KlonoPIN) 0.5 MG tablet Take 0.5 mg by mouth 2 (two) times a day Active metFORMIN (GLUCOPHAGE) 500 MG tablet Take 500 mg by mouth 2 (two) times a day with meals Active Naloxone HCl (Narcan) 4 MG/0.1ML liquid Administer into affected nostril(s) Active montelukast (SINGULAIR) 10 MG tablet Take 10 mg by mouth every night Active Vitamin E 180 MG capsule Take 1 capsule by mouth 1 Active acetaminophen (TYLENOL) 500 MG tablet Take by mouth every 6 (six) hours if needed for mild pain Active atorvastatin (LIPITOR) 20 MG tablet Take 20 mg by mouth 1 (one) time each day Active Calcium Carb-Cholecalci ferol (Calcium Carbonate-Vitam in D3) 600-400 MG-UNIT tablet Take by mouth A ctive ursodiol (ACTIGALL) 250 MG tablet Take 250 mg by mouth in the morning and 250 mg in the evening and 250 mg before bedtime. Active celecoxib (CeleBREX) 200 MG capsule Take 200 mg by mouth in the morning and 200 mg in the evening. Active HYDROcodone-patricia taminophen (NORCO) 5-325 MG per tablet Take 1 tablet by mouth every 6 (six) hours if needed for moderate pain Active omeprazole (PriLOSEC) [address] capsule Take 20 mg by mouth 1 (one) time each day Do not crush or chew. Active predniSONE (DELTASONE) 20 MG tablet Take 20 mg by mouth 1 (one) time each day Active traZODone (DESYREL) 150 MG tablet Take 150 mg by mouth every night Active traZODone (DESYREL) 100 MG tablet Take 100 mg by mouth every night Active darifenacin (ENABLEX) 15 MG 24 hr tablet Take 15 mg by mouth 1 (one) time each day Do not crush, chew, or split. Active lisinopril-hydr oCHLOROthiazide (PRINZIDE,ZESTO RETIC) 10-12.5 MG per tablet TAKE 1 TABLET BY MOUTH EVERY MORNING 90 tablet 3 4 Active amLODIPine (NORVASC) 2.5 MG tablet TAKE 1 TABLET BY MOUTH EVERY EVENING 30 tablet 11 4 Active Active Problems Problem Noted Date Diagnosed Date Obese class II 02/24/2023 02/24/2023 Patient encounter status 07/28/2022 023 Overview (02/24/2023): Mammo: Ordered today Pap: S/P total hysterectomy for benign reason. Pt does not know if cervix remains. Will schedule follow up pelvic exam C-scope: Previously at [facility]. Date unknown BMD: Routine age 67 Right bundle-branch block 07/22/20222022 Obstructive sleep apnea syndrome 03/21/2022 02/24/2023 Overview (02/24/2023): ?? Has CPAP Chronic low back pain 03/12/2022 02/24/2023 Overview (02/24/2023): ?? Hydrocodone t.i.d as needed. ?? Compliant with [employer] agreement Pain of knee region 03/12/2022 02/24/2023 Overview (02/24/2023): ?? Referred to PT for balance training 06/2022 Chronic kidney disease, stage 2 (mild) 2 Screening for malignant neoplasm of colon 2021 History of hepatitis C 10/14/2021 Fatty liver 10/14/2021 Atrophic gastritis 10/14/2021 Cirrhosis of liver 10/14/2021 Urinary incontinence 04/15/2021 Asthma 04/15/2021 Chronic kidney disease, stage 2 (mild) 2 Renal disorder due to type 2 diabetes mellitus 0 10/01/2020 Type 2 diabetes mellitus 10/01/2020 023 Overview (02/24/2023): ?? Metformin monotherapy ?? CKD stage 3 followed by nephrology BMP: 03/2022 WNL Microalbumin: 03/2022 WNL Foot Exam: 07/2022 risk 0 Eye Exam: [facility] [place] Lipid panel: 03/2022 WNL ASCVD: LDL < [...] refer to podiatry for ongoing diabetic footcare Benign essential hypertension 07/14/2019 Renal stone 07/14/2019 Stage 3a chronic kidney disease 07/12/2019 Depressive disorder 02/14/2015 02/24/2023 Overview (02/24/2023): ?? Established with psychiatry and therapy. ?? Rx'd trazodone and clonazepam Moderate persistent asthma 02/14/201502/24 Overview (02/24/2023): ?? Followed by pulmonology ?? Singulair, spiriva, advair, albuterol Last Assessment & Plan: ?? Loratadine refill provided today ?? Follow up as scheduled with pulmonology ?? Contact HC if sx worsen. ED precautions reviewed Varicose veins of bilateral lower limbs 02/15/20 15 02/24/2023 Resolved Problems Problem Noted Date Diagnosed Date Resolved Date H/O: hypothyroidism 07/12/2019 07/12/19 20 Encounters Date Type Department Care Team Description 01/20/2024 Refill [facility] [address] [place] [address] Danny Mahoney MD from Last 3 Months Immunizations Name Administration Dates Next Due Hepatitis A 10/01/2009,02/13/2009 Hepatitis B 06/18/2000,11/30/1999,10/25/1999 Influenza Split 01/13/2012 Influenza Split High Dose Pr eservative Free IM 01/21/2018 Influenza, MDCK, PF, Quadrivalent 03/05/2020 Influenza, Quadrivalent, Pre servative Free 12/16/2021,12/28/2020,02/14/2019 Influenza, Quadrivalent, Wit h Preservative 01/11/2018,03/27/2017 Influenza, Unspecified 11/21/2021,2019,01/21/2019,12/21 Moderna SARS-COV-2 07/12/2021,,06/22/2020,05/25 Pneumococcal Conjugate 13-Valent 03/27/2017 Pneumococcal Polysaccharide 12/31/2007 Shingrix 05/08/2020,03/05/2020 Td 03/29/2019,12/10/1999 Tdap 02/13/2009 Family History Medical History Relation Comments Diabetes Mother Diabetes Sibling 1 sister Hypertension Sibling 2 sister Relation Status Comments Father Mother Alive Sibling 1 Sibling 2 Social History Tobacco Use Types Packs/Day Years Used Date Smoking Tobacco: Never Tobacco Cessation:Counseling Given: Not Answered Alcohol Use Standard Drinks/Week Comments No 0 (1 standard drink = 0.6 oz pure alcohol) Alcoholic Drinks/day: Occasional social drink Comments Unknown Sex and Gender Information Value Date Recorded Sex Assigned at Not on file Legal Sex Female 4:34 PM EST Gender Identity Not on file Sexual Orientation Not on file Last Filed Vital Signs Vital Sign Reading Time Taken Comments Blood Pressure 119/66 11/26/2023 2:04 PM EDT Pulse 74 11/26/2023 2:04 PM EDT Temperature - - Respiratory Rate 16 07/15/2018 12:00 PM EDT Oxygen Saturation 97% 11/26/2023 2:04 PM EDT Inhaled Oxygen Concentration - - Weight 86.2 kg (190 lb) 11/26/2023 2:04 PM EDT Height 147.3 cm (4' 10 ) 11/26/2023 2:04 PM EDT Body Mass Index 39.71 11/26/2023 2:04 PM EDT Plan of Treatment Upcoming Encounters Date Type Department Care Team (Late st Contact Info) Description 11/28/2024 1:30 PM EDT Office Visit [facility] [address] [place] [address] Danny Mahoney MD [address] [facility] [address] [place] [address] Health Maintenance Due Date Last Done Comments Breast Cancer Screening 1955 Colorectal Cancer Screening: Annual FOBT 2006 Colorectal Cancer Screening: Colonoscopy 2006 Colorectal Cancer Screening: Sigmoidoscopy 2006 Hepatitis B Vaccine (1 of 3 - Risk 3-dose series) 2017 06/18/2000, 11/30/1999, 10/25/1999 Diabetes: Ophthalmology Exam 09/27/2020 Diabetes: Pedal Pulse Checked 09/27/2020 Diabetes: Sensory Foot Exam 09/27/2020 Diabetes: Visual Foot Exam 09/27/2020 Diabetes: Hemoglobin A1C 10/22/2023 024, 02/20/2023, 03/21/2022 Influenza Vaccine (#1) 2023 4, 12/16/2021, 11/21/2021, Additional history exists Pneumococcal Vaccine: 65+ Years Completed 04/22/2023, 03/27/2017, 12/31/2007 Insurance MEDICAID [place] MEDICARE [facility] ([id number]) [facility] ([id number]) Care Teams Diploma Pharmacy Technician Relationship Specialty Start Date End Date [facility] [address] [place] [address] PCP - General 11/26/23
--- OUTSIDE RECORDS SUMMARY | 2024-04-13 10:20 | XMS_ITS | Encounter Summary ---
Author Organization [facility] Address [address] [place] [address] Phone Care Team Providers Care Lead Data Entry Operator Name Role Phone [facility] Primary Care Provider [phone] Encounter Details Date Type Department Care Team ([facility] Contact Info) Description 12/10/2021 Documentation Only [facility] [address] [place] [address] Shaun Morales PA [address] [place] [address] Social History Tobacco Use Types [...] Visit [facility] [address] [facility] [place] [phone] Danny Mahoney MD [address] [phone] documented as of this encounter Visit Diagnoses Not on filedocumented in this encounter Care Teams Lead Data Entry Operator Relationship Specialty Start Date End Date [place] [address] [place] [address] PCP - General 11/26/23 documented as of this encounter
--- OUTSIDE RECORDS SUMMARY | 2024-04-13 10:20 | XMS_ITS | Encounter Summary ---
Author Organization [facility] Address [address] [place] [address] Phone Care Team Providers Care Maintainer Central Office Name Role Phone [facility] Primary Care Provider [phone] Encounter Details Date Type Department Care Team ([facility] Contact Info) Description 12/23/2021 Documentation Only [facility] [address] [place] [address] Shaun Morales PA [address] [place] [address] Social History Tobacco Use Types [...] Visit [facility] [address] [facility] [place] [phone] Danny Mahoney MD [address] [phone] documented as of this encounter Visit Diagnoses Not on filedocumented in this encounter Care Teams Maintainer Central Office Relationship Specialty Start Date End Date Sol Kelli [address] [place] [address] PCP - General 11/26/23 documented as of this encounter
--- OUTSIDE RECORDS SUMMARY | 2024-04-13 10:20 | XMS_ITS | Encounter Summary ---
Author Organization [employer] Address [address] [facility] 7t [place] [address] Care Team Providers Care Patient Portal Concierge Name Role Phone Beatriz Ford [facility] Primary Care Provider Kelli Henning [facility] Primary Care Provider [phone] Encounter Details Date Type Department Care Team ([facility] Contact Info) Description 03/20/[address] [phone] Beatriz Ford FNP Social History Tobacco Use Types Packs/Day Years [...] AM EST documented as of this encounter Plan of Treatment Upcoming Encounters Date Type Department Care Team (Late Contact Info) Description 04/20/2024 9:30 AM EST Clinical Support [address] [phone] Tammie Diaz RN documented as of this encounter Visit Diagnoses Not on filedocumented in this encounter Care Teams Patient Portal Concierge Relationship Specialty Start Date End Date Beatriz Ford FNP PCP - General Family Medicine 02/21/22 05/19/22 LurayKelli FNP [address] [place] [address] PCP - General Family Medicine 05/20/22 documented as of this encounter
--- OUTSIDE RECORDS SUMMARY | 2024-04-13 10:20 | XMS_ITS | Encounter Summary ---
Author Organization [facility] Address [address] [place] [address] Phone Care Team Providers Care Manager Ambulatory Name Role Phone [facility] Primary Care Provider [phone] Encounter Details Date Type Department Care Team ([facility] Contact Info) Description 12/20/2021 Documentation Only [facility] [address] [place] [address] Shaun Morales PA [address] [place] [address] Social History Tobacco Use Types [...] Visit [facility] [address] [facility] [place] [phone] Danny Mahoney MD [address] [phone] documented as of this encounter Visit Diagnoses Not on filedocumented in this encounter Care Teams Manager Ambulatory Relationship Specialty Start Date End Date [address] [place] [address] [place] [address] PCP - General 11/26/23 documented as of this encounter
--- OUTSIDE RECORDS SUMMARY | 2024-04-13 10:21 | XMS_ITS ---
Author Organization [facility] Address [address] [place] [address] Care Team Providers Care Outside Sales Manager Name Role Phone [facility] [place] Primary Care Provider Unava Jason eSthi Unavailable [phone] MEDICATIONS Medication SIG (Take, Route, Fr equency, Duration) Notes Start Date End Date Status Omeprazole 20 MG 1 Orally Every morni ng for 30 day(s) 07/02/2022 Active Encounters Encounter Location Date Provider Diagnosis [facility] [address] [place] [address] 07/02/2023 Jason Lora PLAN OF TREATMENT Medication Medication Name Sig Start Date Stop Date Notes Omeprazole 20 MG 1 Orally Every morning for 30 day(s) 06/21 Next Appt Details Provider Name:Jason Lora , 02/23/2025 09:20:00 AM, [address], [address], [place], [address],
--- OUTSIDE RECORDS SUMMARY | 2024-04-13 10:21 | XMS_ITS | Patient Health Record ---
Author Organization [facility] Address [address] [place] [address] Care Team Providers Care Utility Bill Complaints Investigator Name Role Phone [facility] PUMPER GAUGER, Kelli Primary Care Provider Unava ilglenn Jason Lora Unavailable [phone] ALLERGIES No Known Allergies RESULTS Component Value Reference Range Notes Prothrombin Time INR Reviewed date:04/13/2023 06:39:26 PM Interpretation: Performing Lab:[facility], [address] [place] [phone] Notes/Report: Prothrombin Time 11.3 11.1-13.3 SEC INTERNATIONAL [...] Fetoprotein Reviewed date:04/15/2023 03:58:46 PM Interpretation: Performing Lab:[facility], [address] [place] [phone] Notes/Report: Alpha Fetoprotein 1.8 Reference Range: <6.1 [...] of disease. THIS TEST WAS PERFORMED AT: [facility] [address] [place] [phone] NIMCO BETH MD REASON FOR REFERRAL No [...] malignant neoplasm of colon (Z12.11) Active confirmed [id number] Problem Other cirrhosis of liver (K74.69) Active confirmed Problem Fatty liver (K76.0) Active confirmed Problem History of hepatitis C (Z86.19) Active confirmed [id number] Problem Chronic gastritis without bleeding, unspecified gastritis type (K29.50) Active confirmed [id number] VITAL SIGNS Blood pressure diastolic 00 mm Hg 02/25/2024 Height 58 in 02/25/2024 Blood pressure systolic 00 mm Hg 02/25/2024 Weight 185 lbs 02/25/2024 BMI 38.66 kg/m2 02/25/2024 Encounters Encounter Location Date Provider Diagnosis [facility] [address] [place] [phone] 02/25/2024 Jason Lora Other cirrhosis of liver K74.69 ; History of hepatitis C Z86.19 and Fatty liver K76.0 [facility] [address] [place] [phone] 06/02/2023 Jason Lora [facility] [address] [place] [phone] 07/02/2023 Jason Lora ASSESSMENTS Encounter Date Diagnosis [...] 09:20:00 AM, [address], [address], [place], [address], Insurance Providers Payer Name Payer Address Payer Phone Subscriber Number Group Number Insured Name Patient Relationship to Insured Coverage Start Date Coverage End Date [facility] Claims [address] [address] [place] [address] [id number] TRUPTI MAGUIRE Self - patient is the insured MEDICAID OF [place] [address] [place] [address] [id number] TRUPTI MAGUIRE Self - patient is the [...] ursodiol 750 mg b.i.d. Asthma Anxiety Denies [place],CVA,renal disease Kidney stones Negative colonoscopy with Dr. Rodriguez in [place] Urinary incontinence Neg. screening colonoscopy in 04/2018 EGD in 04/2018 with erosive g astritis but neg. Hpylori, no varices, small to mod-sized hiatal hernia Surgical History Surgery Date(Month/Year) Tubal ligation Umbilical hernia surgery 03/2013-Dr. Annel magana Vocal cord polyps Bladder suspension by Dr Avelino lama in [place] for urinary incontinence on 09/19/13. Veins in her left leg Right knee replacement with Dr. Solorzano 2020
--- OUTSIDE RECORDS SUMMARY | 2024-04-13 10:21 | XMS_ITS ---
Author Organization [facility] Address [address] [place] [address] Care Team Providers Care Radio Officer Name Role Phone [facility] [place] Primary Care Provider UnaJason [place] Unavailable [phone] REASON FOR VISIT r/f request ursodiol MEDICATIONS Medication SIG (Take, Route, Fr equency, Duration) Notes Start Date End Date Status Ursodiol 250 MG 3 Orally Twice a day for 30 days 0 06/02/2023 Active Encounters Encounter Location Date Provider Diagnosis [facility] [address] [place] [address] 06/02/2023 Jason Lora PLAN OF TREATMENT Medication Medication Name Sig Start Date Stop Date Notes Ursodiol 250 MG 3 Orally Twice a day for 30 days Next Appt Details Provider Name:Jason Lora , 02/23/2025 09:20:00 AM, [address], [address], [place], [address],
== END 2024-04-13 09:37 | disposition home or self-care (01) ==
LOC: HO.US 09:36
PROVIDERS: PCP Registered Nurse; Visit Provider Internal Medicine
DX: K74.69 Other cirrhosis of liver (principal); K76.0 Fatty (change of) liver, not elsewhere classified; Z86.19 Personal history of other infectious and parasitic diseases
CPT/HCPCS: 76700; 76981

== ENCOUNTER → 2024-04-13 10:01 | Outpatient (BNV) | payer OTHER, SELFPAY | PROVIDERS: PCP Registered Nurse; Visit Provider Radiology Diagnostic Radiology | DX: K76.0 Fatty (change of) liver, not elsewhere classified (principal); R16.0 Hepatomegaly, not elsewhere classified | CPT/HCPCS: 76700 ==

== ENCOUNTER → 2024-04-27 10:20 | Outpatient (BNVA) | payer OTHER, SELFPAY | PROVIDERS: PCP Registered Nurse; Visit Provider Internal Medicine Pulmonary Disease | DX: J44.89 Other specified chronic obstructive pulmonary disease (principal); Z87.891 Personal history of nicotine dependence; Z91.09 Other allergy status, other than to drugs and biological substances | CPT/HCPCS: 99212 ==

== ENCOUNTER 2024-05-02 10:52 | Outpatient (AMB) | payer OTHER, SELFPAY ==
--- NOTE | 2024-05-02 11:00 | A.OFFVIS_ITS ---
Vital Signs 05/02/24 11:01 Height 4 ft 11 in Weight 196 lb BMI 39.6 Intake Visit Reasons: NewProb-Left hand carpal tunnel syndrome Intake Note: Ludivina is a 68 year old right hand dominant male who presents today for a new problem visit with complaints of Left hand pain numbness and tingling. EMG done at [facility] [place] IMPRESSION: Mild left median neuropathy across carpal tunnel. Otherwise no significant abnormality noted. 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 EMG done at [facility] [place] IMPRESSION: Mild left median neuropathy across carpal tunnel. Otherwise no significant abnormality noted. [facility] Medical History (Updated 05/02/24 @ 13:06 by PITO Cuevas) Primary osteoarthritis of left knee Osteoarthritis of hands, bilateral History of COVID-19 RBBB Hx of hepatitis C Asthma Anxiety Elevated cholesterol COVID-19 vaccine series completed JUSTIN (obstructive sleep apnea) Chronic kidney disease Depression Other intervertebral disc displacement, lumbar region Spondylosis of lumbar spine Lumbar facet arthropathy Bilateral primary osteoarthritis of knee Renal stones Essential hypertension Type 2 diabetes mellitus with complication, without long-term current use of insulin Vitamin D deficiency Other chronic pain History of renal calculi Surgical History History of total right knee replacement (TKR) Hx of dilation and curettage History of laryngoscopy Hx of umbilical hernia repair Hx of arthroscopy of left knee Hx of lithotripsy History of esophagogastroduodenoscopy (EGD) S/P repair of ventral hernia H/O abdominal hysterectomy H/O tubal ligation History of colonoscopy Family History Father Diabetes mellitus HTN (hypertension) Mother No problems noted. 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 Normal sensation to all other digits in the left hand today. Normal sensation in the tips of all digits of the right hand today. No thenar or intrinsic wasting. Good APB muscle firing and good finger cross. Vascular: Capillary refill brisk. ROM: Patient can make a fist and extend all their digits. Skin: No lacerations or abrasions noted. General: No ecchymosis. No erythema or evidence of infection. Results Reviewed Results Reviewed: IMPRESSION: Mild left median neuropathy across carpal tunnel. Otherwise no significant abnormality noted. MD DEANDRE Knapp/CALDERON Assessment & Plan Assessment & Plan (1) Left carpal tunnel syndrome: Code(s): G56.02 - Carpal tunnel syndrome, left upper limb Category: Medical Plan 1. carpal tunnel syndrome, left Symptoms intermittent, daily, worse at night I educated the patient about the condition. I discussed both operative and nonoperative treatment options. The patient would like to proceed with surgery. The risks and benefits of operative treatment were discussed with the patient and the patient wishes to proceed with surgery. These risks include, but are not limited to, risk of damage to blood vessels, nerves, tendons, infection, recurrence, incomplete relief of preoperative symptoms, persistent pain, possible need for further surgery, and the risks associated with regional blocks and/or anesthesia. Plan is to take the patient to the operating room at some point in the next few weeks for the following procedures: 1. Left carpal tunnel release under local All of the preoperative paperwork including the consent was discussed today. All of the patient's questions were answered in the clinic today. The patient understands that they will be in contact with our chief operator lock tender to discuss scheduling their procedure. Patient denies diabetes, blood thinners, asthma, heart issues, lung issues, kidney issues, or current smoking. Coding Level of Care Code New Pt Level 4 (22983) Diagnoses Left carpal tunnel syndrome G56.02
[2024-05-02 11:01] VITALS: BMI 39.6
--- OUTSIDE RECORDS SUMMARY | 2024-05-02 11:56 | XMS_ITS | Clinical Summary ---
Author Organization [facility] Address [address] [place] [address] Phone Care Team Providers Care Preschool Paraprofessional Name Role Phone Kelli Horton Primary Care Provider [phone] Allergies Active Allergy Reactions Criticality Noted Date [...] follow up pelvic exam C-scope: [place] [facility] Date unknown BMD: Routine age 67 Right bundle-branch block 07/22/20222022 Obstructive sleep apnea syndrome 03/21/2022 02/24/2023 Overview (02/24/2023): ?? Has CPAP Chronic low back pain 03/12/2022 02/24/2023 Overview (02/24/2023): ?? Hydrocodone t.i.d as needed. ?? Compliant with AIR OPERATIONS MANAGER agreement Pain of knee region 03/12/2022 02/24/2023 [...] Exam: [facility] [place] Lipid panel: 03/2022 WNL ASCVD: LDL < [...] Resolved Date H/O: hypothyroidism 07/12/2019 07/12/19 20 Immunizations Name Administration Dates Next Due Hepatitis [...] Care Team (Late st Contact Info) Description 12/05/2024 2:15 PM EDT Office Visit [facility] [address] [place] [address] Danny Mahoney MD [address] [phone] Health Maintenance Due Date Last Done Comments [...] 04/22/2023, 03/27/2017, 12/31/2007 Insurance [place]ID [place] [address] ([id number]) [place] [address] ([id number]) Care Teams Preschool Paraprofessional Relationship Specialty Start Date End Date [facility] [address] [place] [address] PCP - General 11/26/23
--- OUTSIDE RECORDS SUMMARY | 2024-05-02 11:56 | XMS_ITS | Encounter Summary ---
Author Organization [employer] [facility] Address [address] 7[address] [place] [address] Care Team Providers Care It Telecom Technician Name Role Phone Kelli Horton TOLL PATROLMAN Primary Care Provider [phone] Reason for Visit * Reason Comments PRINTING AGENT RV PRINTING AGENT RV Encounter Details Date Type Department Care Team (Latest Contact Info) Description 04/20/2024 9:30 AM EST Clinical Support [facility] [address] [place] [address] Tammie Diaz RN Chronic low back pain, unspecified back pain laterality, unspecified whether sciatica present (Primary Dx) Social History Tobacco Use Types Packs/Day Years [...] AM EDT documented as of this encounter Progress Notes * Tammie Diaz RN - 04/20/2024 9:30 AM EST S: Pt here for PRINTING AGENT Revisit, translation provided by medical education manager [employer]. Prescribed Hydrocodone/Acetaminophen 5mg/325mg Q12hr PRN. States she has been taking as prescribed, last dose taken was this morning, She is also prescribed Clonazepam 0.5mg every day PRN from an outside provider. Continues to deny smoking cigarettes, ETOH use, Illicit drug use and marijuana use. Currently rates herpain a 5 and states medication is 40% effective at alleviating her pain. Current pain sites are herknees, right shoulder and her legs. O: PRINTING AGENT Tier 2. Pt currently prescribed Hydrocodone/Acetaminophen 5mg/325mg Q12hr PRN. BELT MAKER HELPER verified today. Rx last filled on 03/21/24. Pill count performed. Pt has 22 pills at this time, 0 at least expected. Medication is not overused by patient.UTOX completed. Positive for MOP, Negative for AMP, BAR, BUP, BZO, RALPH, FTY, MDMA, MET, MTD, OXY, PCP, TCA, THC. UTOX as expected. Last PCP visit was 04/04/24. A: PRINTING AGENT Revisit: Chronic Opioid use related to pain. P: Pt to continue taking medication only as prescribed; Next PRINTING AGENT RV appointment scheduled for 07/18/24 @ 9:30a, F/U sooner PRN. Appointment reminder given. Pt verbalized understanding and agreed to plan. documented in this encounter Plan of Treatment Upcoming Encounters Date Type Department Care Team (Late st Contact Info) Description 06/13/2024 10:30 AM EDT Medication Management [place] [address] 07/18/2024 9:30 AM EDT Clinical Support [facility] [place] [address] Tammie Diaz, RN documented as of this encounter Procedures Procedure Name Priority Date/Time Associated Diagnosis Comments POCT ANDRE-14 URINE DRUG SCREEN Routine 04/20/2024 9:13 AM EST Chronic low back pain, unspecified back pain laterality, unspecified whether sciatica present documented in this encounter Results * POCT ANDRE-14 Urine Drug Screen (04/20/2024 9:13 AM EST) Opiate Screen, Urine Positive Urine Urine specimen obtained by clean catch procedure / Unknown 04/20/2024 9:13 AM EST Narrative Tammie Diaz, LADONNA - 04/20/2024 9:13 AM EST UTOX cup Lot#[id number] Exp. 12/15/25 Internal Pass Control [facility] POINT OF CARE TEST ENTER/EDIT ORDERABLES Final Result documented in this encounter Visit Diagnoses Diagnosis Chronic low back pain, unspecified back pain laterality, unspecified whether sciatica present- Primary documented in this encounter Additional Health Concerns Assessment Noted Time PHQ-9 Depression Total Score: 0 04/04/19 25 11:23 AM EST documented as of this encounter Care Teams It Telecom Technician Relationship Specialty Start Date End Date [place] [address] PCP - General Family Medicine 05/20/22 documented as of this encounter
--- OUTSIDE RECORDS SUMMARY | 2024-05-02 11:56 | XMS_ITS | Encounter Summary ---
Author Organization [facility] Address [address] [place] [address] Phone Care Team Providers Care Boats Renter Name Role Phone [facility] Primary Care Provider [phone] Encounter Details Date Type Department Care Team (Late Contact Info) Description 12/20/2021 Documentation Only [facility], [address] [place] [address] Shaun Morales PA Social History Tobacco Use Types Packs/Day Years [...] Department Care Team (Late Contact Info) Description 12/05/2024 2:15 PM EDT Office Visit [facility] [address] [place] [address] Danny Mahoney MD [address] [phone] documented as of this encounter Visit Diagnoses Not on filedocumented in this encounter Care Teams Boats Renter Relationship Specialty Start Date End Date [place], Kelli [address] [place], [place] [phone] PCP - General 11/26/23 documented as of this encounter
--- OUTSIDE RECORDS SUMMARY | 2024-05-02 11:56 | XMS_ITS ---
Author Organization [facility] Address [address] [place] [address] Care Team Providers Care Lathe Hand Name Role Phone [facility] [place] Primary Care Provider UnaJason [place] Unavailable [phone] REASON FOR VISIT r/f request ursodiol MEDICATIONS Medication SIG (Take, Route, Fr equency, Duration) Notes Start Date End Date Status Ursodiol 250 MG 3 Orally Twice a day for 30 days 0 06/02/2023 Active Encounters Encounter Location Date Provider Diagnosis [facility] [address] [place] [address] 06/02/2023 Jason Lora PLAN OF TREATMENT Medication Medication Name Sig Start Date Stop Date Notes Ursodiol 250 MG 3 Orally Twice a day for 30 days Next Appt Details Provider Name:Jason Lora , 02/23/2025 09:20:00 AM, [address], [address], [place], [address],
--- OUTSIDE RECORDS SUMMARY | 2024-05-02 11:56 | XMS_ITS | Encounter Summary ---
Author Organization [employer] Address [address] [facility] [address] 7t [place] [address] Care Team Providers Care Conductor/Engineer Name Role Phone Kelli Horton CHEMICAL DEPENDENCY COUNSELOR Primary Care Provider [phone] Encounter Details Date Type Department Care Team (Latest Contact Info) Description 04/20/2024 Travel Social History Tobacco Use Types Packs/Day [...] Description 06/13/2024 10:30 AM EDT Medication Management [address] [address] 07/18/2024 9:30 AM EDT Clinical Support [address] [address] Tammie Diaz, LADONNA documented as of this encounter Visit Diagnoses Not on filedocumented in this encounter Additional Health Concerns Assessment Noted Time PHQ-9 Depression Total Score: 0 04/04/19 25 11:23 AM EST documented as of this encounter Care Teams Conductor/Engineer Relationship Specialty Start Date End Date Kelli Horton FNP [address] [place] [address] PCP - General Family Medicine 05/20/22 documented as of this encounter
--- OUTSIDE RECORDS SUMMARY | 2024-05-02 11:56 | XMS_ITS | Encounter Summary ---
Author Organization [employer] Address 75 [facility] 7t [place] [address] Care Team Providers Care Application Support Developer Name Role Phone [place] [facility] Primary Care Provider [phone] Reason for Visit * Reason Onset Date Comments Med Refill 02/11/2023 Encounter Details Date Type Department Care Team ([facility] st Contact Info) Description 02/11/2023 Telephone [facility] MEDICINE [address] [place] [address] [facility] 230 [place] [address] Med Refill Social History Tobacco Use Types [...] from pt requesting med refill on; HYDROcodone-acetaminophen ([place]) 5-325 MG tablet documented in this encounter Plan of Treatment Upcoming Encounters Date Type Department Care Team (Late st Contact Info) Description 06/13/2024 10:30 AM EDT Medication Management [address] [address] 07/18/2024 9:30 AM EDT Clinical Support [address] [address] Tammie Diaz RN documented as of this encounter Visit Diagnoses Not on filedocumented in this encounter Additional Health Concerns Assessment Noted Time PHQ-9 Depression Total Score: 21 022 10:03 AM EST documented as of this encounter Care Teams Application Support Developer Relationship Specialty Start Date End Date Kelli Horton FNP [address] [place] [address] PCP - General Family Medicine 05/20/22 documented as of this encounter
--- OUTSIDE RECORDS SUMMARY | 2024-05-02 11:56 | XMS_ITS | Encounter Summary ---
Author Organization [employer] Address 75 [facility] 7t [place] [address] Care Team Providers Care Automotive Exhaust Emissions Technician Name Role Phone [place] [facility] Primary Care Provider [phone] Encounter Details Date Type Department Care Team ([facility] st Contact Info) Description 04/04/2024 Telephone [facility] MEDICINE 230 [place] [address] [place] 230 [place] [address] Social History Tobacco Use Types Packs/Day Years [...] the past 12 months, has t he [employer], gas, oil or water company threatened to [...] Description 06/13/2024 10:30 AM EDT Medication Management [address] [address] 07/18/2024 9:30 AM EDT Clinical Support [address] [address] Tammie Diaz RN documented as of this encounter Visit Diagnoses Not on filedocumented in this encounter Additional Health Concerns Assessment Noted Time PHQ-9 Depression Total Score: 0 04/04/19 25 11:23 AM EST documented as of this encounter Care Teams Automotive Exhaust Emissions Technician Relationship Specialty Start Date End Date Kelli Horton FNP [address] [place] [address] PCP - General Family Medicine 05/20/22 documented as of this encounter
--- OUTSIDE RECORDS SUMMARY | 2024-05-02 11:56 | XMS_ITS | Encounter Summary ---
Author Organization [employer] Address 75 [facility] 7t [place] [address] Care Team Providers Care Lab Coordinator Name Role Phone [facility] [facility] Primary Care Provider [phone] Reason for Visit * Reason Onset Date Comments Med Refill 11/18/2023 Encounter Details Date Type Department Care Team ([facility] st Contact Info) Description 11/18/2023 Telephone [facility] MEDICINE 230 [place] [address] [employer] 230 [place] [address] Med Refill Social History Tobacco Use Types [...] encounter Miscellaneous Notes * Telephone Encounter - Rishiblessing Alejandro - 11/18/2023 1:40 PM EDT Tc from pt requesting a refill for HYDROcodone-acetaminophen ([place]) 5-325 MG tablet documented in this encounter Plan of Treatment Upcoming Encounters Date Type Department Care Team (Late st Contact Info) Description 06/13/2024 10:30 AM EDT Medication Management [facility] MED[facility]INE [address] [place] [address] 07/18/2024 9:30 AM EDT Clinical Support [facility] [address] [place] [address] Tammie Diaz RN documented as of this encounter Visit Diagnoses Not on filedocumented in this encounter Additional Health Concerns Assessment Noted Time PHQ-9 Depression Total Score: 0 07/22/19 9:10 AM EDT documented as of this encounter Care Teams Lab Coordinator Relationship Specialty Start Date End Date Kelli Horton FNP 230 [place] [address] PCP - General Family Medicine 05/20/22 documented as of this encounter
--- OUTSIDE RECORDS SUMMARY | 2024-05-02 11:56 | XMS_ITS | Encounter Summary ---
Author Organization [employer] Address 75 [facility] 7t [place] [address] Care Team Providers Care Nuclear Monitoring Technician Name Role Phone [place] [facility] Primary Care Provider Reason for Visit * Reason Onset Date Comments Nurse Triage 02/11/2023 Encounter Details Date Type Department Care Team ([facility] st Contact Info) Description 02/11/2023 Telephone [facility] MED[facility] 230 [place] [address] [place] [facility] 230 [place] [address] Nurse Triage Social History Tobacco Use Types [...] past 12 months, has t he electric, [employer], oil or water [employer] threatened to shut off services in your [...] become worse * Telephone Encounter - Miriam Hu - 02/11/2023 10:10 AM EST Symptom: Sleeping Difficulty Outcome: Schedule an appointment to be seen within 24 hours Reason: This is the only possible outcome for this symptom Italian Speaker documented in this encounter Plan of Treatment Upcoming Encounters Date Type Department Care Team (Late st Contact Info) Description 06/13/2024 10:30 AM EDT Medication Management [address] [address] 07/18/2024 9:30 AM EDT Clinical Support [address] [address] Tammie Diaz RN documented as of this encounter Visit Diagnoses Not on filedocumented in this encounter Additional Health Concerns Assessment Noted Time PHQ-9 Depression Total Score: 21 022 10:03 AM EST documented as of this encounter Care Teams Nuclear Monitoring Technician Relationship Specialty Start Date End Date Kelli Horton FNP [address] [place] [address] PCP - General Family Medicine 05/20/22 documented as of this encounter
--- OUTSIDE RECORDS SUMMARY | 2024-05-02 11:56 | XMS_ITS | Encounter Summary ---
Author Organization [employer] Address 75 [facility] 7t [place] [address] Care Team Providers Care Accounting Specialist Name Role Phone Kelli Horton [facility] Primary Care Provider [phone] Reason for Visit * Reason Comments Med Refill Encounter Details Date Type Department Care Team (Late st Contact Info) Description 12/16/[address] [address] Name, MD Haroon [address] [place] [address] Chronic low back pain, unspecified back pain [...] Description 06/13/2024 10:30 AM EDT Medication Management [address] [phone] 07/18/2024 9:30 AM EDT Clinical Support [address] [id number] Tammie Diaz RN documented as of this encounter Visit Diagnoses Diagnosis Chronic low back pain, unspecified back pain laterality, unspecified whether sciatica present documented in this encounter Additional Health Concerns Assessment Noted Time PHQ-9 Depression Total Score: 21 022 10:03 AM EST documented as of this encounter Care Teams Accounting Specialist Relationship Specialty Start Date End Date Kelli Horton FNP [address] [place] [address] PCP - General Family Medicine 05/20/22 documented as of this encounter
--- OUTSIDE RECORDS SUMMARY | 2024-05-02 11:56 | XMS_ITS | Encounter Summary ---
Author Organization [employer] Address 75 [facility] 7t [place] [address] Care Team Providers Care Filtrose Crusher Name Role Phone Kelli Horton Primary Care Provider [phone] Reason for Referral * Consultation (Routine) - Closed Specialty Diagnoses / Procedures Referred By Cruz murillo Referred To Contact Sleep Medicine Diagnoses Obstructive sleep apnea syndrome Kelli Horton FNP 230 [place] [address] Phone: tel: fax: Referral ID Status Reason Start Date Expiration Date V isits Requested Visits Authorized [id number] Closed Specialty Services Required 04/04/2024 04/04/2025 1 1 * Consultation (Routine) - Closed Specialty Diagnoses / Procedures Referred By Cruz murillo Referred To Contact Otolaryngology Diagnoses Oropharyngeal dysphagia Kelli Horton FNP [address] [place] [address] Phone: tel: fax: [facility] [address] Phone: tel: fax: Referral ID Status Reason Start Date Expiration Date V isits Requested Visits Authorized [id number] Closed Specialty Services Required 04/04/2024 04/04/2025 1 1 * Consultation (Routine) - Authorized Specialty Diagnoses / Procedures Referred By Cruz murillo Referred To Contact Orthopaedic Surgery Diagnoses Left carpal tunnel syndrome Kelli Horton FNP [address] [place] [address] Phone: tel: fax: [facility] [address] [place] [address] Drive [address] [place] Phone: tel: fax: Referral ID Status Reason Start Date Expiration Date Visits Requested Visits Authorized [id number] Authorized Specialty Services Required 04/04/2024 04/04/2025 1 1 Reason for Visit * Reason Comments Follow-up Diabetes Encounter Details Date Type Department Care Team (Late st Contact Info) Description 04/04/2024 11:15 AM EST Office Visit [facility] MEDICINE 230 [place] [address] Kelli Horton FNP [address] [place] [address] Type 2 diabetes mellitus with stage 3 [...] documented in this encounter Progress Notes * [facility], QUARTZ MOUNTER - 04/04/2024 11:15 AM EST SUBJECTIVE: Ludivina [...] Narrative Current living environment: Lives alone, 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 Healthcare maintenance Acute conjunctivitis of right eye [...] 3a or 3b CKD ([facility]) (Primary) Lab Results Component Value Date HGBA1C 6.2 (A) 04/04/2024 HGBA1C 5.8 12/25/2023 HGBA1C 5.8 07/22/2023 Lab Results Component Value Date MICROALBUR 0.3 02/28/2021 CREATININE 0.92 01/16/2024 Metformin monotherapy CKD stage 3 followed by nephrology Foot Exam: 03/2024 risk 0 Eye Exam: [facility]ed [facility] [place] Statin: Yes ASA: No PATRICIA/ARB: Yes Encouraged [...] sugar twice daily 100 strip 2 HYDROcodone-acetaminophen ([place]) 5-325 MG tablet TAKE 1 TABLET BY [...] facility-administered medications on file prior to visit. Macedonian Translation: Provided by [facility] staff member GEORGES De La Cruz documented in this encounter Plan of Treatment Upcoming Encounters Date Type Department Care Team (Late st Contact Info) Description 06/13/2024 10:30 AM EDT Medication Management [address] [address] 07/18/2024 9:30 AM EDT Clinical Support [address] [address] Tammie Diaz RN Scheduled Referrals Name Type [...] or 3b CKD ([facility]/HCC) POCT GLUCOSE Routine 04/04/2024 11:24 AM EST Type 2 diabetes mellitus with stage 3 chronic kidney disease, without long-term current use of insulin, unspecified whether stage 3a or 3b CKD (CMS/HCC) documented in this encounter Results * POCT Glucose (04/04/2024 11:24 AM EST) Glucose Blood, POC 116 60 - 200 mg/dL QC Media Lot # [id number] Lot# Expiration Date 025 Blood Capillary blood specimen / Unknown 04/04/2024 11:24 AM EST [facility] POINT OF CARE TEST ENTER/EDIT ORDERABLES Final Result * (ABNORMAL) POCT HGB A1C (04/04/2024 11:24 AM EST) Hemoglobin A1C 6.2(A) 4.0 - 6.0 % QC Media Lot # [id number] Lot# Expiration Date Blood 04/04/2024 11:2 4 AM EST [facility] POINT OF CARE TEST ENTER/EDIT ORDERABLES Final Result documented in this encounter Visit Diagnoses Diagnosis Type 2 diabetes mellitus with stage 3 chronic kidney disease, without long-term current use of insulin, unspecified whether stage 3a or 3b CKD ([facility]/HCC)- Primary Left carpal tunnel syndrome Carpal tunnel syndrome Oropharyngeal dysphagia Dysphagia, oropharyngeal phase Obstructive sleep apnea syndrome Obstructive sleep apnea (adult) (pediatric) documented in this encounter Additional Health Concerns Assessment Noted Time PHQ-9 Depression Total Score: 0 04/04/19 25 11:23 AM EST documented as of this encounter Care Teams Filtrose Crusher Relationship Specialty Start Date End Date [facility] [address] [place] [address] PCP - General Family Medicine 05/20/22 documented as of this encounter
--- OUTSIDE RECORDS SUMMARY | 2024-05-02 11:56 | XMS_ITS | Encounter Summary ---
Author Organization [employer] Address 75 [facility] 7t [place] [address] Care Team Providers Care Electronic Specialist Name Role Phone Kelli Horton EDITOR MANAGING NEWSPAPER Primary Care Provider Encounter Details Date Type Department Care Team ([facility] st Contact Info) Description 02/06/2023 Abstract [facility] MEDICINE [address] [place] [address] Madeleine Valle Social History Tobacco Use Types [...] Description 06/13/2024 10:30 AM EDT Medication Management [facility] [address] [place] [address] 07/18/2024 9:30 AM EDT Clinical Support [facility] [address] [place] [address] Tammie Diaz RN documented as of this [...] documented as of this encounter Care Teams Electronic Specialist Relationship Specialty Start Date End Date Kelli Horton FNP 230 [place] [address] PCP - General Family Medicine 05/20/22 documented as of this encounter
--- OUTSIDE RECORDS SUMMARY | 2024-05-02 11:56 | XMS_ITS | Encounter Summary ---
Author Organization [facility] Address [address] [place] [address] Phone Care Team Providers Care Refuse Collector Name Role Phone [facility] Primary Care Provider [phone] Encounter Details Date Type Department Care Team (Late Contact Info) Description 12/23/2021 Documentation Only [facility], [address] [place] [address] Shaun Morales PA Social History [...] Visit [facility] [address] [place] [address] Danny Mahoney MD [address] [phone] documented as of this encounter Visit Diagnoses Not on filedocumented in this encounter Care Teams Refuse Collector Relationship Specialty Start Date End Date [place], Kelli 230 [place], [place] [phone] PCP - General 11/26/23 documented as of this encounter
--- OUTSIDE RECORDS SUMMARY | 2024-05-02 11:56 | XMS_ITS | Encounter Summary ---
Author Organization [employer] Address 75 [facility] 7t [place] [address] Care Team Providers Care Clinical Documentation Specialist Name Role Phone Kelli Horton ENVELOPE PRESS OPERATOR Primary Care Provider [phone] Reason for Visit * Reason Onset Date Comments Recommend PROCESS MAINTENANCE TECHNICIAN Tier 2 04/20/2024 Encounter Details Date Type Department Care Team ([facility] st Contact Info) Description 04/20/[address] [facility] MEDICINE [address] [place] [address] Tammie Diaz, LADONNA Recommend PROCESS MAINTENANCE TECHNICIAN Tier 2 Social History Tobacco Use Types Packs/Day [...] encounter Miscellaneous Notes * Telephone Encounter - Tammie Diaz RN - 04/20/2024 7:34 AM EST What PROCESS MAINTENANCE TECHNICIAN Tier would you like this patient to be? I recommend Tier 2, please let me know if you agree or would rather patient be in another PROCESS MAINTENANCE TECHNICIAN Tier. Tier 1 = HIGH RISK, Monthly PROCESS MAINTENANCE TECHNICIAN visits Tier 2 = MODerate RISK, Q3 Month visits Tier 3 = LOW RISK = Q4-6 month visits documented in this encounter Plan of Treatment Upcoming Encounters Date Type Department Care Team (Late st Contact Info) Description 06/13/2024 10:30 AM EDT Medication Management [address] [address] 07/18/2024 9:30 AM EDT Clinical Support [address] [address] Tammie Diaz, RN documented as of this encounter Visit Diagnoses Not on filedocumented in this encounter Additional Health Concerns Assessment Noted Time PHQ-9 Depression Total Score: 0 04/04/19 25 11:23 AM EST documented as of this encounter Care Teams Clinical Documentation Specialist Relationship Specialty Start Date End Date Kelli Horton FNP [address] [place] [address] PCP - General Family Medicine 05/20/22 documented as of this encounter
--- OUTSIDE RECORDS SUMMARY | 2024-05-02 11:56 | XMS_ITS | Encounter Summary ---
Author Organization [facility] Address [address] [place] [address] Phone Care Team Providers Care Security Technician Name Role Phone [employer] Primary Care Provider [phone] Encounter Details Date Type Department Care Team (Late Contact Info) Description 12/23/2021 Documentation Only [facility], [address] [place] [address] Shaun Morales PA Social History [...] Visit [facility] [address] [place] [address] Danny Mahoney MD [address] [phone] documented as of this encounter Visit Diagnoses Not on filedocumented in this encounter Care Teams Security Technician Relationship Specialty Start Date End Date [place], Kelli [address] [place], [place] [phone] PCP - General 11/26/23 documented as of this encounter
--- OUTSIDE RECORDS SUMMARY | 2024-05-02 11:56 | XMS_ITS | Encounter Summary ---
Author Organization [employer] Address 75 [facility] 7t [place] [address] Care Team Providers Care Control Clerk Name Role Phone Kelli Horton [address] [employer] JUDGE Primary Care Provider [phone] Encounter Details Date Type Department Care Team [...] Description 06/13/2024 10:30 AM EDT Medication Management [address] [address] 07/18/2024 9:30 AM EDT Clinical Support [address] [address] Tammie Diaz, LADONNA documented as of this encounter Visit Diagnoses Not on filedocumented in this encounter Additional Health Concerns Assessment Noted Time PHQ-9 Depression Total Score: 0 04/04/19 25 11:23 AM EST documented as of this encounter Care Teams Control Clerk Relationship Specialty Start Date End Date Kelli Horton FNP [address] [place] [address] PCP - General Family Medicine 05/20/22 documented as of this encounter
--- OUTSIDE RECORDS SUMMARY | 2024-05-02 11:56 | XMS_ITS | Encounter Summary ---
Author Organization [employer] Address [address] [facility] 7t [place] [address] Care Team Providers Care Slitter And Rewinder Machine Operator Name Role Phone Kelli Horton RUBBER PRESS OPERATOR Primary Care Provider Encounter Details Date Type Department Care Team (Late st Contact Info) Description 04/13/2024 Orders Only [facility] External Provider, [facility] Social History Tobacco Use Types Packs/Day Years [...] Description 06/13/2024 10:30 AM EDT Medication Management [facility] [address] [place] [address] 07/18/2024 9:30 AM EDT Clinical Support [facility] [address] [place] [address] Tammie Diaz RN documented as of this encounter Procedures Procedure Name Priority Date/Time Associated Diagnosis Comments US ABDOMEN COMPLETE WITH ELASTOGRAPHY Routine 04/13/2024 10:01 AM EST documented in this encounter Results * US Abdomen Comp w elastography (04/13/2024 10:01 AM EST) Anatomical Region Laterality Modality Abdomen Ultrasound 04/13/2024 10:0 1 AM EST Narrative 04/14/2024 7:45 AM EST ? [facility] ?[address] ?[place] [address] ? Ultrasound Report ? Signed ? Patient: Ludivina Hussein ?MR#: [id number] ? : 1955 ?Acct:[id number] ? Age/Sex: 68 / F ?ADM Date: 04/13/24 ? Loc: HO.US ? Attending Dr: Jason Lora MD ? Ordering Physician: Jason Lora MD ?? Date of Service: 04/13/24 ?? Procedure(s): US abdomen comp w elastography ?? Accession Number(s): [id number] ? cc: Jason Lora MD; Kelli HortonP ? EXAMINATION: ??US ABDOMEN COMPLETE WITH LIVER ELASTOGRAPHY ? HISTORY: h/o hep. C, cirrhosis ? TECHNIQUE: Real-time grayscale ultrasound imaging of the abdomen was ?? performed and images were reviewed. ? COMPARISON: Comparison is made with the prior examination dated ?? 03/21/2021. ? FINDINGS: ?? Liver: ??There is enlargement of the left lobe of the liver. The liver ?? demonstrates increased echotexture consistent with steatosis. There is ?? a mildly lobulated liver contour, suggestive of cirrhosis. ??No focal ?? mass or intrahepatic biliary ductal dilatation is identified. ??There is ?? normal hepatopedal flow in the portal vein. ? Ultrasound elastography of the liver was performed with 10 separate ?? measurements of the liver parenchyma with the patient in the supine ?? position. ??Measurements were obtained approximately 2 cm below ?? Vishnu's capsule and perpendicular to the capsule. ??Images are of ?? satisfactory quality. ? The median shear wave velocity is 1.69 m/s. ?? The interquartile range/median (IQR/median) is 0.09. ? Gallbladder and biliary tree: The gallbladder is unremarkable, without ?? evidence of calculi, wall thickening, or pericholecystic fluid. ??There ?? is no sonographic Wharton sign. ??The common bile duct is normal in ?? caliber measuring 3 mm. ? Kidneys: ??The right kidney measures 10.9 cm in length. The left kidney ?? measures 10.3 cm in length. There is a 6 x 6 x 8 mm cyst in the ?? interpolar region of the right kidney and an 8 x 7 x 8 mm cyst in the ?? interpolar region of the left kidney. There is a probable scar or ?? junctional parenchymal defect in the interpolar region of the right ?? kidney. ??The kidneys are otherwise unremarkable, without evidence of ?? solid masses, hydronephrosis, or calculi. ? Pancreas: The pancreatic head and neck are unremarkable. The remainder ?? of the pancreas is obscured by bowel gas. ? Spleen: The spleen is normal in size and contour, measuring 8.1 cm in ?? length. ? Abdominal aorta and inferior vena cava: The visualized portions of the ?? abdominal aorta and inferior vena cava are normal in caliber. ? There is no free fluid in the abdomen. ? US/US abdomen comp w elastography ?? IMPRESSION: ? Hepatic steatosis and enlargement of the left lobe of the liver. ?? Lobulated liver contour suggestive of cirrhosis. ? The median shear wave velocity is 1.69 m/s, corresponding to a median ?? liver stiffness of 8.74 kPa. ??The IQR/median value is 0.09. ??This is ?? indicative of a quality data set. ?? Findings are indicative of a low elastography value which rules out ?? advanced chronic liver disease in asymptomatic patients. ? REFERENCE: ?? Society of Radiologists in Ultrasound Liver Stiffness Thresholds (2019): ? LIVER STIFFNESS THRESHOLDS: ?? *Shear wave velocity less than 1.3 m/s (Liver Stiffness equal or less ?? than 5 kPa): ??High probability of being normal. ?? *Shear wave velocity less than 1.7 m/s (Liver Stiffness less than 9 ?? kPa): ??In the absence of other known clinical signs, rules out ?? compensated advanced chronic liver disease. ?? *Shear wave velocity between 1.7-2.1 m/s (Liver Stiffness 9-13 kPa): ? Suggestive of compensated advanced chronic liver disease but need ?? further test for confirmation. ?? *Shear wave velocity between 2.1-2.4 m/s (Liver Stiffness 13-17 kPa): ? Rules in compensated advanced chronic liver disease. ?? *Shear wave velocity ??greater than 2.4 m/s (Liver Stiffness over 17 ?? kPa): ??Suggestive of clinically significant portal hypertension. ? QUALITY OF DATA SET: ?? *IQR/Median value equal or less than 0.15 implies a quality data set. ?? *IQR/Median value over 0.15 implies a poor quality data set. ? SIGNIFICANT CHANGE FROM PRIOR EXAM: ?? Significant change if liver stiffness measurement is 10% or greater ?? from prior exam. ? OTHER CONSIDERATIONS: ?? The stage of liver fibrosis may be overestimated in the setting of ?? acute hepatitis, liver inflammation, elevated liver function tests, ?? hepatic vascular congestion, obstructive cholestasis, non-fasting ?? state, and infiltrative diseases such as amyloidosis and lymphoma. ??In ?? some patients with NAFLD, the liver stiffness thresholds for ?? compensated advanced chronic liver disease may be lower. ??In causes ?? other than viral hepatitis and NAFLD, liver stiffness thresholds are ?? not well established. ? Electronically signed by: ??Jason Lombardi MD ??04/14/2024 07:42 AM EST ?? RP ? Dictated By: ?Jason Lombardi MD ? Signed By: ?<Electronically signed by Jason Lombardi MD in OV> ?04/14/24 0742 ? DD/ 1001 ? TD/TT: 04/13/24 1033 ? Electrical Drafter: ? Procedure Note Donotuseinterpreter, Image - 04/14/[address] [address] Ultrasound Report Signed Patient: Ludivina Hussein NMR#: [id number] : 8Acct:[id number] Age/Sex: 68 / FADM Date: 04/13/24 Loc: HO.US Attending Dr: Jason Lora MD Ordering Physician: Jason Lora MD Date of Service: 04/13/24 Procedure(s): US abdomen comp w elastography Accession Number(s): [id number] cc: Jason Lora MD; [facility] EXAMINATION: US ABDOMEN COMPLETE WITH LIVER ELASTOGRAPHY HISTORY: h/o hep. C, cirrhosis TECHNIQUE: Real-time grayscale ultrasound imaging of the abdomen was performed and images were reviewed. COMPARISON: Comparison is made with the prior examination dated 03/21/2021. FINDINGS: Liver: There is enlargement of the left lobe of the liver. The liver demonstrates increased echotexture consistent with steatosis. There is a mildly lobulated liver contour, suggestive of cirrhosis. No focal mass or intrahepatic biliary ductal dilatation is identified. There is normal hepatopedal flow in the portal vein. Ultrasound elastography of the liver was performed with 10 separate measurements of the liver parenchyma with the patient in the supine position. Measurements were obtained approximately 2 cm below Vishnu's capsule and perpendicular to the capsule. Images are of satisfactory quality. The median shear wave velocity is 1.69 m/s. The interquartile range/median (IQR/median) is 0.09. Gallbladder and biliary tree: The gallbladder is unremarkable, without evidence of calculi, wall thickening, or pericholecystic fluid. There is no sonographic Wharton sign. The common bile duct is normal in caliber measuring 3 mm. Kidneys: The right kidney measures 10.9 cm in length. The left kidney measures 10.3 cm in length. There is a 6 x 6 x 8 mm cyst in the interpolar region of the right kidney and an 8 x 7 x 8 mm cyst in the interpolar region of the left kidney. There is a probable scar or junctional parenchymal defect in the interpolar region of the right kidney. The kidneys are otherwise unremarkable, without evidence of solid masses, hydronephrosis, or calculi. Pancreas: The pancreatic head and neck are unremarkable. The remainder of the pancreas is obscured by bowel gas. Spleen: The spleen is normal in size and contour, measuring 8.1 cm in length. Abdominal aorta and inferior vena cava: The visualized portions of the abdominal aorta and inferior vena cava are normal in caliber. There is no free fluid in the abdomen. US/US abdomen comp w elastography IMPRESSION: Hepatic steatosis and enlargement of the left lobe of the liver. Lobulated liver contour suggestive of cirrhosis. The median shear wave velocity is 1.69 m/s, corresponding to a median liver stiffness of 8.74 kPa. The IQR/median value is 0.09. This is indicative of a quality data set. Findings are indicative of a low elastography value which rules out advanced chronic liver disease in asymptomatic patients. REFERENCE: Society of Radiologists in Ultrasound Liver Stiffness Thresholds (2020): LIVER STIFFNESS THRESHOLDS: *Shear wave velocity less than 1.3 m/s (Liver Stiffness equal or less than 5 kPa): High probability of being normal. *Shear wave velocity less than 1.7 m/s (Liver Stiffness less than 9 kPa): In the absence of other known clinical signs, rules out compensated advanced chronic liver disease. *Shear wave velocity between 1.7-2.1 m/s (Liver Stiffness 9-13 kPa): Suggestive of compensated advanced chronic liver disease but need further test for confirmation. *Shear wave velocity between 2.1-2.4 m/s (Liver Stiffness 13-17 kPa): Rules in compensated advanced chronic liver disease. *Shear wave velocity greater than 2.4 m/s (Liver Stiffness over 17 kPa): Suggestive of clinically significant portal hypertension. QUALITY OF DATA SET: *IQR/Median value equal or less than 0.15 implies a quality data set. *IQR/Median value over 0.15 implies a poor quality data set. SIGNIFICANT CHANGE FROM PRIOR EXAM: Significant change if liver stiffness measurement is 10% or greater from prior exam. OTHER CONSIDERATIONS: The stage of liver fibrosis may be overestimated in the setting of acute hepatitis, liver inflammation, elevated liver function tests, hepatic vascular congestion, obstructive cholestasis, non-fasting state, and infiltrative diseases such as amyloidosis and lymphoma. In some patients with NAFLD, the liver stiffness thresholds for compensated advanced chronic liver disease may be lower. In causes other than viral hepatitis and NAFLD, liver stiffness thresholds are not well established. Electronically signed by: Jason Lombardi MD 04/14/2024 07:42 AM EST Dictated By: Jason Lombardi MD Signed By: <Electronically signed by Jason Lombardi MD in OV> 04/14/24 0742 DD/ 1001 TD/TT: 04/13/24 1033 Electrical Drafter: [facility] External Provider IMG US PROCEDURES Final Result documented in this encounter Visit Diagnoses Not on filedocumented in this encounter Additional Health Concerns Assessment Noted Time PHQ-9 Depression Total Score: 0 04/04/19 25 11:23 AM EST documented as of this encounter Care Teams Slitter And Rewinder Machine Operator Relationship Specialty Start Date End Date Kelli Horton FNP [address] [place] [address] PCP - General Family Medicine 05/20/22 documented as of this encounter
--- OUTSIDE RECORDS SUMMARY | 2024-05-02 11:56 | XMS_ITS | Encounter Summary ---
Author Organization [facility] Address [address] [place] [address] Phone Care Team Providers Care Training Personnel Supervisor Name Role Phone [facility] Primary Care Provider [phone] Encounter Details Date Type Department Care Team (Late Contact Info) Description 12/10/2021 Documentation Only [facility], [address] [place] [address] Shaun Morales PA Social History [...] Visit [facility] [address] [place] [address] Danny Mahoney MD [address] [id number] documented as of this encounter Visit Diagnoses Not on filedocumented in this encounter Care Teams Training Personnel Supervisor Relationship Specialty Start Date End Date [place], Kelli [address] [place], [place] [id number] PCP - General 11/26/23 documented as of this encounter
--- OUTSIDE RECORDS SUMMARY | 2024-05-02 11:57 | XMS_ITS ---
Author Organization [facility] Address [address] [place] [address] Care Team Providers Care Marine Engineer Cpvec Name Role Phone [facility] [place] Primary Care Provider Shivani kellogg Jason Lora Unavailable [phone] ALLERGIES No Known Allergies REASON FOR VISIT [...] 02/25/2024 Encounters Encounter Location Date Provider Diagnosis [facility] [address] [place] [address] 02/25/2024 Jason Lora Other cirrhosis of liver [...] 09:20:00 AM, [address], [address], [place], [address], Progress Notes * Examination Category Sub-Category Detail [...]
--- OUTSIDE RECORDS SUMMARY | 2024-05-02 11:57 | XMS_ITS | Encounter Summary ---
Author Organization [employer] Address [address] [place] [address] 7t [place] [address] Care Team Providers Care Rug Repairer Name Role Phone Beatriz Ford [facility] Primary Care Provider Kelli Henning [facility] Primary Care Provider [phone] Encounter Details Date Type Department Care Team ([facility] Contact Info) Description 03/20/[address] [address] Beatriz Ford FNP Social History Tobacco Use [...] Department Care Team (Late Contact Info) Description 06/13/2024 10:30 AM EDT Medication Management [address] [phone] 07/18/2024 9:30 AM EDT Clinical Support [address] [phone] Emily, Tammie, RN documented as of this encounter Visit Diagnoses Not on filedocumented in this encounter Care Teams Rug Repairer Relationship Specialty Start Date End Date Beatriz Ford FNP PCP - General Family Medicine 02/21/22 05/19/22 SolKelli ren FNP [address] [place] [address] PCP - General Family Medicine 05/20/22 documented as of this encounter
--- OUTSIDE RECORDS SUMMARY | 2024-05-02 11:57 | XMS_ITS ---
Author Organization [facility] Address [address] [place] [address] Care Team Providers Care Stoker Installer Name Role Phone [facility] Primary Care Provider Unava Jason Sethi Unavailable [phone] MEDICATIONS Medication SIG (Take, Route, Fr equency, Duration) Notes Start Date End Date Status Omeprazole 20 MG 1 Orally Every morni ng for 30 day(s) 07/02/2022 Active Encounters Encounter Location Date Provider Diagnosis [facility] [address] [place] [address] 07/02/2023 Jason Lora PLAN OF TREATMENT Medication Medication Name Sig Start Date Stop Date Notes Omeprazole 20 MG 1 Orally Every morning for 30 day(s) 06/21 Next Appt Details Provider Name:Jason Lora , 02/23/2025 09:20:00 AM, [address], [address], [place], [address],
--- OUTSIDE RECORDS SUMMARY | 2024-05-02 11:57 | XMS_ITS | Encounter Summary ---
Author Organization [employer] Address [address] [facility] 7t [place] [address] Care Team Providers Care Livestock Broker Name Role Phone [facility] Primary Care Provider [phone] Reason for Visit * Reason Comments Med Refill Encounter Details Date Type Department Care Team (Late st Contact Info) Description 12/17/2023 Refill [facility] [address] [place] [address] [facility] [address] [place] [address] Chronic low back pain, unspecified back pain [...] is your housing situation today? I have teodroo hobson 07/22/[address] you [...] Description 06/13/2024 10:30 AM EDT Medication Management [address] [address] 07/18/2024 9:30 AM EDT Clinical Support [address] [address] Tammie Diaz RN documented as of this encounter Visit Diagnoses Diagnosis Chronic low back pain, unspecified back pain laterality, unspecified whether sciatica present documented in this encounter Additional Health Concerns Assessment Noted Time PHQ-9 Depression Total Score: 0 07/22/19 24 9:10 AM EDT documented as of this encounter Care Teams Livestock Broker Relationship Specialty Start Date End Date Kelli Horton FNP [address] [place] [address] PCP - General Family Medicine 05/20/22 documented as of this encounter
--- OUTSIDE RECORDS SUMMARY | 2024-05-02 11:57 | XMS_ITS | Encounter Summary ---
Author Organization [employer] Address [address] [facility] 7t [place] [address] Care Team Providers Care Ticket Dispatcher Name Role Phone [place] [facility] Primary Care Provider Reason for Visit * Reason Onset Date Comments Med Refill 03/15/2024 Encounter Details Date Type Department Care Team ([facility] st Contact Info) Description 03/15/2024 Telephone [facility] [address] [place] [address] [facility] [address] [place] [address] Med Refill Social History Tobacco Use Types [...] medication refill. Medications needing refill : HYDROcodone-acetaminophen (Frierson) 5-325 MG tablet To be sent to: [facility] - [place], [place] - [address] [place] [address] documented in this encounter Plan of Treatment Upcoming Encounters Date Type Department Care Team (Late st Contact Info) Description 06/13/2024 10:30 AM EDT Medication Management [facility] [address] [place] [address] 07/18/2024 9:30 AM EDT Clinical Support [facility] [address] [place] [address] Tammie Diaz RN documented as of this encounter Visit Diagnoses Not on filedocumented in this encounter Additional Health Concerns Assessment Noted Time PHQ-9 Depression Total Score: 0 12/25/19 10:25 AM EDT documented as of this encounter Care Teams Ticket Dispatcher Relationship Specialty Start Date End Date Kelli Horton FNP [address] [place] [address] PCP - General Family Medicine 05/20/22 documented as of this encounter
--- OUTSIDE RECORDS SUMMARY | 2024-05-02 11:57 | XMS_ITS | Patient Health Record ---
Author Organization [facility] Address [address] [place] [address] Care Team Providers Care Impregnating Helper Name Role Phone [facility] Primary Care Provider Unava ilable Jason Lora Unavailable [phone] ALLERGIES No Known Allergies RESULTS Component Value Reference Range Notes US abdomen comp w elastograp hy (Not yet reviewed by provider) Interpretation: Performing Lab: Notes/Report: [facility] [address] [place] [id number] Ultrasound Report Signed Patient: Ludivina Hussein MR#: [id number] : 1955 Acct:[id number] Age/Sex: 68 / F ADM Date: 04/13/24 Loc: HO.US Attending Dr: Jason Lora MD Ordering Physician: Jason Lora MD Date of Service: 04/13/24 Procedure(s): US abdomen comp w elastography Accession Number(s): [id number] cc: Jason Lora MD; [facility] EXAMINATION: US ABDOMEN COMPLETE WITH LIVER ELASTOGRAPHY [...] by: Jason Lombardi MD 04/14/2024 07:42 AM [facility] Dictated By: Jason Lombardi MD Signed By: <Electronically signed by Jason Lombardi MD in OV> 04/14/24 0742 DD/ 1001 TD/TT: 04/13/24 1033 Custodial Manager: REASON FOR REFERRAL No Information MEDICATIONS Medication [...] malignant neoplasm of colon (Z12.11) Active confirmed 967373834 Problem Other cirrhosis of liver (K74.69) Active confirmed 31021193 Problem Fatty liver (K76.0) Active confirmed 177321750 Problem History of hepatitis C (Z86.19) Active confirmed 68034560107866 Problem Chronic gastritis without bleeding, unspecified gastritis type (K29.50) Active confirmed 3321475 VITAL SIGNS Blood pressure diastolic 00 mm Hg 02/25/2024 Height 58 in 02/25/2024 Blood pressure systolic 00 mm Hg 02/25/2024 Weight 185 lbs 02/25/2024 BMI 38.66 kg/m2 02/25/2024 Encounters Encounter Location Date Provider Diagnosis [facility] [address] [place] [address] 02/25/2024 Jason Lora Other cirrhosis of liver K74.69 ; History of hepatitis C Z86.19 and Fatty liver K76.0 [facility] [address] [place] [address] 06/02/2023 Jason Lora [facility] [address] [place] [address] 07/02/2023 Jason Lora ASSESSMENTS Encounter Date Diagnosis [...] 02/25/2022 US abdomen comp w elastography 4 US abdomen comp w elastography 5 Future Test Test Name Order Date UPPER GI ENDOSCOPY 03/05/2018 COLONOSCOPY 03/05/2018 Next Appt Details Provider Name:Jason Lora , 02/23/2025 09:20:00 AM, [address], [place], [address], Insurance Providers Payer Name Payer Address Payer Phone Subscriber Number Group Number Insured Name Patient Relationship to Insured Coverage Start Date Coverage End Date [facility] Claims [address] [address] [place] [address] [id number] LUDIVINA HUSSEIN Self - patient is the insured MEDICAID OF [facility] [address] [place] [phone] [id number] LUDIVINA HUSSEIN Self - patient is the insured MEDICAL [...] ursodiol 750 mg b.i.d. Asthma Anxiety Denies VT,CVA,renal disease Kidney stones Negative colonoscopy with Dr. Rodriguez in [place] Urinary incontinence Neg. screening colonoscopy in 04/2018 EGD in 04/2018 with erosive g astritis but neg. Hpylori, no varices, small to mod-sized hiatal hernia Surgical History Surgery Date(Month/Year) Tubal ligation Umbilical hernia surgery 03/2013-Dr. Annel narayan Vocal cord polyps Bladder suspension by Dr Avelino lama in [place] for urinary incontinence on 09/19/13. Veins in her left leg Right knee replacement with Dr. Solorzano 2020
--- OUTSIDE RECORDS SUMMARY | 2024-05-02 11:57 | XMS_ITS | Clinical Summary ---
Author Organization [employer] Address [address] [facility] 7t [place] [address] Care Team Providers Care Car Dropper Name Role Phone Kelli Horton [employer] Primary Care Provider [phone] Allergies Active Allergy Reactions Criticality Noted Date Comments Morphine Sulfate Er Itching 09/01/2023 Medications albuterol (2.5 MG/3ML) 0.083% nebulizer solution INHALE 1 AMPULE USING A NEBULIZER EVERY 4 TO 6 HOURS NEEDED SHORTNESS OF BREATH OR FOR WHEEZING 10/25/19 22 Active amLODIPine (Norvasc) 2.5 MG tablet Take 2.5 mg by mouth at bedtime. 02/22/20 22 Active darifenacin (Enablex) 15 MG 24 hr tablet Take 1 tablet by mouth at bed time. 02/20/20 21 Active lisinopril-hydr oCHLOROthiazide 10-12.5 MG tablet Take 1 tablet by mouth in the morning. 02/19/20 22 Active montelukast (Singulair) 10 MG tablet 03/18/20 22 Active omeprazole (PriLOSEC) [address] capsule 03/18/20 22 Active traZODone (Desyrel) 150 MG tablet Take 2 tablets by mouth at bedtime. 03/18/20 22 Active clonazePAM (KlonoPIN) 0.5 MG [...] RESPONDS. 2 each 2 02/24/20 23 Active calcium carbonate (Calcium 600) 600 MG tablet Take 1 tablet (600 mg) by mouth in the morning. 90 tablet 3 06/26/19 24 2024 Active cholecalciferol (Vitamin D-3) 25 MCG (1000 [...] DAILY 16 g 5 11/25/19 24 Active vitamin E 180 MG (400 UNIT) capsule TAKE 1 CAPSULE BY MOUTH EVERY MORNING 90 capsule 3 12/25/19 24 Active albuterol (Ventolin HFA) 108 (90 Base) MCG/ACT inhalerIndicati ons:Moderate persistent asthma with acute exacerbation Inhale 2 puffs every 4 (four) hours if needed for wheezing or shortness of breath. 18 g 3 12/25/19 24 Active glucose blood (FREESTYLE LITE) test stripIndication s:Type 2 diabetes mellitus with stage 3 chronic kidney disease, without long-term current use of insulin, unspecified whether stage 3a or 3b CKD (CMS/[facility]) test blood sugar twice daily 100 strip 2 03/04/20 24 Active HYDROcodone-patricia taminophen ([place]) 5-325 MG tabletIndicatio ns:Chronic low back pain, unspecified back pain laterality, unspecified whether sciatica present TAKE 1 TABLET BY MOUTH EVERY TWELVE HOURS NEEDED FOR SEVERE PAIN 56 tablet 03/15/20 24 Active Trelegy Ellipta 200-62.5-25 MCG/ACT aerosol powder Take 1 puff by mouth Once daily. 04/21/19 Active lidocaine-prilo dony (Emla) 2.5-2.5 % cream Apply 1 Application. topically Once daily. 04/19/19 Active traZODone (Desyrel) 100 MG tablet Take 1 tablet by mouth at bedtime. 04/19/19 Active Calcium Carb-Cholecalci ferol 600-10 MG-MCG tablet Take 1 tablet by mouth every 12 (twelve) hours. 04/12/19 16 2024 Discontinued(M ed list cleanup (will not trigger notification to Pharmacy)) gabapentin (Neurontin) 300 MG capsule TAKE 1 CAPSULE BY MOUTH AT BEDTIME FOR PAIN 06/25/19 22 2024 Discontinued(M ed list cleanup (will not trigger notification to Pharmacy)) pneumococcal conjugate (Prevnar 13) vaccine Inject 0.5 mL into the shoulder, thigh, or buttocks. 08/09/19 16 2024 Discontinued(M ed list cleanup (will not trigger notification to Pharmacy)) polyethylene glycol, PEG, 3350 (MiraLax) 17 GM/SCOOP powder take (17G) by oral route every day mixed with 8 oz. water, juice, soda, coffee or tea 08/09/19 16 2024 Discontinued(M ed list cleanup (will not trigger notification to Pharmacy)) celecoxib (CeleBREX) 200 MG capsuleIndicati ons:Chronic low back pain, unspecified back pain laterality, unspecified whether sciatica present TAKE 1 CAPSULE BY MOUTH TWICE DAILY NEEDED FOR PAIN 60 capsule 2 03/27/19 24 2024 Discontinued(M ed list cleanup (will not trigger notification to Pharmacy)) Advair HFA 115-21 MCG/ACT inhalerIndicati ons:Moderate persistent asthma with acute exacerbation INHALE 2 PUFFS BY MOUTH TWICE DAILY IN THE MORNING AND IN THE EVENING RINSE MOUTH AFTER USING. 12 g 05/11/19 24 2024 Discontinued(M ed list cleanup (will not trigger notification to Pharmacy)) tiotropium (Spiriva Respimat) 1.25 MCG/ACT inhalerIndicati ons:Moderate persistent asthma, unspecified whether complicated INHALE 2 PUFFS BY MOUTH ONCE DAILY 4 g 3 12/21/19 24 2024 Discontinued(M ed list cleanup (will not trigger notification to Pharmacy)) lidocaine (Lidoderm) 5 % patchIndication s:Right shoulder pain, unspecified chronicity Apply 1 patch topically Once per day. Remove & discard patch within 12 hours or as directed by MD. 30 patch 11 12/25/19 24 2024 Discontinued(M ed list cleanup (will not trigger notification to Pharmacy)) Active Problems Problem Noted Date Diagnosed Date Gait instability 05/05/2023 Acute conjunctivitis of right eye 03/05/2023 Healthcare maintenance 07/28/2022 Overview (05/05/2023): Mammo: 09/2022 Birads 1 Pap: S/P total hysterectomy for benign reason. Pt does not know if cervix remains. Will schedule follow up pelvic exam C-scope: [place] [facility] Date unknown. Will request records BMD: Routine age 67 Assessment & Plan (05/05/2023 8:28 PM EST): DEXA scan ordered RBBB 07/22/2022 Obstructive sleep apnea syndrome 03/21/2022 Overview (07/28/2022): ?? Has CPAP Chronic low back pain 03/12/2022 Overview (07/28/2022): ?? Hydrocodone t.i.d as needed. ?? Compliant with CARDIAC CATH LAB RADIOLOGY TECHNOLOGIST agreement Assessment & Plan (05/05/2023 8:15 PM EST): Continue hydrocodone as prescribed. Patient will bring tablets to pharmacy to determine if able to order prior formulation Declines chronic pain group at this time Follow as scheduled with CARDIAC CATH LAB RADIOLOGY TECHNOLOGIST Chronic pain of right knee 03/12/2022 Overview (07/28/2022): ?? Referred to PT for balance training 06/2022 Type 2 diabetes mellitus, wi thout long-term current use of insulin 10/01/2020 Overview (04/04/2024): Metformin monotherapy CKD stage 3 followed by nephrology Foot Exam: 03/2024 risk 0 Eye Exam: Followed [facility] in [place] Statin: Yes ASA: No PATRICIA/ARB: Yes Encouraged [...] Overview (04/04/2024): Followed by DR. Lora at [facility] Hepatic steatosis, hx of chronic HCV Lower urinary tract symptoms 07/09/2017 Moderate persistent asthma 02/14/2015 Overview (07/28/2022): ?? Followed by pulmonology ?? Singulair, spiriva, advair, albuterol Assessment & Plan (07/28/2022 9:18 AM EDT): ?? Loratadine refill provided today ?? Follow up as scheduled with pulmonology ?? Contact HC if sx worsen. ED precautions reviewed Benign essential hypertension 02/14/2015 Overview (05/05/2023): Lisinopril-hydrochlorothiazide 1012.5mg Amlodipine 2.5mg RBBB on EKG Normal stress [...] Problem Noted Date Diagnosed Date Resolved Date [place] eye disease of right eye 03/05/2023 03/05/2023 Assessment & Plan (03/05/2023 10:51 AM EST): Given antibiotic cream for 5 days Arthritis of left knee 03/21/202207/24 Arthritis of right knee 03/21/2022 05/0 06/2022 Atrophic gastritis 10/14/2021 3 Asthma 04/15/2021 07/24/2022 Chronic kidney disease, stage 2 (mild) 04/15/2021 07/22/2022 Urinary incontinence 04/15/2021 023 Renal stone 07/14/2019 07/24/2022 CKD (chronic kidney disease), stage III 07/17/2017 07/22/2022 Fatty liver 07/15/2017 07/24/2022 Knee pain 02/14/2015 07/24/2022 Obesity 02/14/2015 07/24/2022 Increased frequency of urination 02/14/2015 07/24/2022 Type 2 diabetes mellitus 02/14/201506/2022 Chronic kidney disease 09/18/201107/22 Encounters Date Type Department Care Team Description 04/25/2024 10:00 AM EST Telemedicine [facility] [place] [address] Sada Johnston PharmD Benign essential hypertension (Primary Dx); Moderate persistent asthma with acute exacerbation 04/20/2024 9:30 AM EST Clinical Support [address] [address] Tammie Diaz, global logistics manager low back pain, unspecified back pain laterality, unspecified whether sciatica present (Primary Dx) 04/20/2024 Travel 04/20/[address] [address] Tammie Diaz RN Recommend CARDIAC CATH LAB RADIOLOGY TECHNOLOGIST Tier 2 04/13/2024 Orders Only [facility] External Provider, [facility] 04/04/2024 11:15 AM EST Office Visit [address] [address] Kelli Horton FNP Type 2 diabetes mellitus with stage 3 chronic kidney disease, without long-term current use of insulin, unspecified whether stage 3a or 3b CKD (CMS/HCC) (Primary Dx); Left carpal tunnel syndrome; Oropharyngeal dysphagia; Obstructive sleep apnea syndrome 04/04/[address] [address] Kelli Horton FNP 04/04/2024 Travel 03/29/[address] [address] Kelli Horton FNP Results 03/15/[address] [address] Kelli Horton FNP Med Refill 03/15/[address] [address] Kelli Horton FNP Chronic low back pain, unspecified back pain laterality, unspecified whether sciatica present 03/07/[address] [address] Tammie Diaz, RN telephone call 03/04/2024 Refill [facility] PEDS [address] [facility] [place] [id number] [facility] Type 2 diabetes mellitus with stage 3 chronic kidney disease, without long-term current use of insulin, unspecified whether stage 3a or 3b CKD ([facility]/HCC) 03/04/2024 Refill [facility] [address] [place], [place] [phone] [facility] Type 2 diabetes mellitus with stage 3 chronic kidney disease, without long-term current use of insulin, unspecified whether stage 3a or 3b CKD ([facility]) 02/15/2024 9:30 AM EST Clinical Support [facility] [address] [place], [place] [phone] Tammie Diaz, global logistics manager low back pain, unspecified back pain laterality, unspecified whether sciatica present (Primary Dx) 02/15/2024 Telephone [facility] [address] [place] [address] Tammie Diaz, [place] CARDIAC CATH LAB RADIOLOGY TECHNOLOGIST Renewal today 02/15/2024 Travel 02/12/2024 Telephone [facility] [address] [place], [place] [phone] [facility] from Last 3 Months Immunizations Name Administration [...] Description 06/13/2024 10:30 AM EDT Medication Management [address] [address] 07/18/2024 9:30 AM EDT Clinical Support [facility] MEDICINE [address] [place] [phone] Tammie Diaz, RN Health Maintenance Due Date [...] Zoster Vaccines Completed 05/08/2020, 03/05/2020 Pneumococcal Vaccine: 50+ Years Completed 04/22/2023, 03/27/2017, 12/31/2007 RSV Patients [...] back pain laterality, unspecified whether sciatica present US ABDOMEN COMPLETE WITH ELASTOGRAPHY Routine 04/13/2024 10:01 AM EST POCT GLUCOSE Routine 04/04/2024 11:24 AM EST [...] back pain laterality, unspecified whether sciatica present BI MAMMOGRAM SCREENING TOMOSYNTHESIS BILATERAL Routine 06/16/2023 [...] Recently Relevant to Health Maintenance Results * POCT ANDRE-14 Urine Drug Screen (04/20/2024 9:13 AM EST) Only the most recent of2 resultswithin the time period is included. Opiate Screen, Urine Positive Urine Urine specimen obtained by clean catch procedure / Unknown 04/20/2024 9:13 AM EST Tammie West, RN - 04/20/2024 9:13 AM EST UTOX cup Lot#[id number] Exp. 12/15/25 Internal Pass Control [facility] [employer] POINT OF CARE TEST ENTER/EDIT ORDERABLES Final Result * US Abdomen Comp w elastography (04/13/2024 10:01 AM EST) Anatomical Region Laterality Modality Abdomen Ultrasound 04/13/2024 10:0 1 AM EST Narrative 04/14/2024 7:45 AM EST ? [facility] ?[address] ?[place] [address] ? Ultrasound Report ? Signed ? Patient: Keenan,Ludivina N ?MR#: [id number] ? : 1955 ?Acct:[id number] ? Age/Sex: 68 / F ?ADM Date: 04/13/24 ? Loc: HO.US ? Attending Dr: Jason Lora MD ? Ordering Physician: Jason Lora MD ?? Date of Service: 04/13/24 ?? Procedure(s): US abdomen comp w elastography ?? Accession Number(s): [id number] ? cc: Jason Lora MD; Kelli HortonP [...] ??Jason Lombardi MD ??04/14/2024 07:42 AM EST ? Dictated By: ?Jason Lombardi MD ? Signed By: ?<Electronically signed by Jason Lombardi MD in OV> ?04/14/24 0742 ? DD/ 1001 ? TD/TT: 04/13/24 1033 ? Sock Ironer: ? Procedure Note Marie, Image - 04/14/2024 [place] [address] Ultrasound Report Signed Patient: Ludivina Hussein [facility]#: [id number] : 8Acct:[id number] Age/Sex: 68 / FADM Date: 04/13/24 Loc: HO.US Attending Dr: Jason Lora MD Ordering Physician: Jason Lora MD Date of Service: 04/13/24 Procedure(s): US abdomen comp w elastography Accession Number(s): [id number] cc: Jason Lora MD; [place] [facility] EXAMINATION: US ABDOMEN COMPLETE WITH LIVER ELASTOGRAPHY [...] 04/14/24 0742 DD/ 1001 TD/TT: 04/13/24 1033 Sock Ironer: [facility] External Provider IM US PROCEDURES Final Result * (ABNORMAL) POCT HGB A1C (04/04/2024 11:24 AM EST) Hemoglobin A1C 6.2(A) 4.0 - 6.0 % QC Media Lot # [id number] Lot# Expiration Date Blood 04/04/2024 11:2 4 AM EST [facility] [employer] POINT OF CARE TEST ENTER/EDIT ORDERABLES Final Result * POCT Glucose (04/04/2024 11:24 AM EST) Glucose Blood, POC 116 60 - 200 mg/dL QC Media Lot # [id number] Lot# Expiration Date ,025 Blood Capillary blood specimen / Unknown 04/04/2024 11:24 AM EST [facility] [employer] POINT OF CARE TEST ENTER/EDIT ORDERABLES Final Result * BI Mammogram Screening Tomosynthesis Bilateral (06/16/2023 10:15 AM EDT) Anatomical Region Laterality Modality Breast Bilateral Mammography 06/16/2023 10:1 5 AM EDT Narrative 07/02/2023 6:24 AM EDT ? [facility] ? [address] ?[place] [address] ? Mammography Report ? Signed ? Patient: Ludivina Hussein ?MR#: [id number] ? : 1955 ?Acct:[id number] ? Age/Sex: 67 / F ?ADM Date: //24 ? Loc: HO.MAMMO ? Attending Dr: Kelli Sol [employer] ? Ordering Physician: Sol,Kelli [employer] ?Results: 1Nega ?? tive ? Date of Service: 06/16/23 ?Follow Up: 1 Year From Orig ?? inal Mammogram ? Procedure(s): MM tomosynthesis screening BI ?? Accession Number(s): [id number] ? cc: [place],Kelli [employer] ? EXAMINATION: ?? MM SCREENING DIGITAL BREAST [...] July Giles MD in OV> ? 07/02/23 06 ? DD/ 1015 ? TD/TT: ? Sock Ironer: ? Procedure Note Shekhar Salazar - 07/02/2023 [place] [facility] [address] [place] [address] Mammography Report Signed Patient: KeenanLudivina NMR#: [id number] : 8Acct:[id number] Age/Sex: 67 / FADM Date: 06/16/23 Loc: [place] Attending Dr: Kelli VASQUEZP Ordering Physician: Kelli Horton FNPResults: 1Nega tive Date of Service: 06/16/23Follow Up: 1 Year From Orig inal Mammogram Procedure(s): MM tomosynthesis screening BI Accession Number(s): [id number] cc: Kelli Horton [employer] EXAMINATION: MM SCREENING DIGITAL BREAST TOMOSYNTHESIS, BILATERAL [...] in OV> 07/02/23 0620 DD/ 1015 TD/TT: Sock Ironer: [facility] [employer] IMG BI PROCEDURES Final Resul t * Lipid Panel, Standard (05/04/2023 8:32 AM EST) Triglycerides 118 <150 mg/dL [facility] Comment:Desirable Triglyceri de: less than 150 mg/dLBorderline High Triglyceride 150-199 mg/dLHigh Triglyceride: 200-499 mg/dLVery High Triglyceride: greater than or equal to 5OO mg/dL Cholesterol 128 <200 mg/dL [facility] Comment:Desirable Cholestero l: less than 200 mg/dLBorderline High Cholesterol: 200-239 mg/dLHigh Cholesterol: greater than 239 mg/dL LDL Cholesterol Calculated 59 <100 mg/dL [facility] Comment:Desirable LDL: less than 100 mg/dLNear Optimal/Above Optimal LDL: 110- 129 mg/dLBorderline High LDL: 130-159 mg/dLHigh LDL: 160-189 mg/dLVery High LDL: greater than or equal to 190 mg/dL HDL Cholesterol 46 >40 mg/dL [facility] Comment:Desirable HDL: great er than 40 mg/dL Note: This HDL assay may give artificially low results in patients with liver disease. Blood Venous blood specimen / Unknown 05/04/2023 8:32 AM EST 05/04/2023 11:34 AM EST [facility] [employer] LAB BLOOD ORDERABLES Final Re sult [facility] [address] [place] [phone] * Hm Colonoscopy (05/03/2018) Colonoscopy Normal Normal Narrative Madeleine Valle - 05/03/2018 Repeat in 10 years Historical Provider HEALTH MAINTENANCE Final Result * HPV mRNA E6/E7 (03/03/2016 11:45 AM EST) HPV mRNA E6/E7 Not Detected NOT DETECTED [facility] Comment: This test was performed using the APTIMA(R) HPV Assay ([employer] This assay detects E6/E7 viral messenger RNA (mRNA) from 14 high-risk HPV types (16,18,31,33,35,39,45,51, 52,56,58,59,66,68). For additional information please refer to: http://education.[employer].trip.me/faq/LVI324q2 (This link is being provided for informational/ educational purposes only.) Test Performed by [employer] [place], [facility], [address] [place] [id number] Leonardo Cano M.D., Ph.D., Director of Laboratories , [facility] [id number] Please note: ??Effective 12/03/2015, HPV testing will be performed using [employer]'s APTIMA test which targets mRNA. Detecting mRNA instead of DNA, as in older methods, offers significant improvements in specificity. 03/03/2016 11:4 5 AM EST us Nandini Biswas NP HISTORICAL/NON ORDERABLE LABS Fi nal Result [facility] [address] from Last 3 Months or Most Recently Relevant to Health Maintenance Insurance [facility] Care Teams Car Dropper Relationship Specialty Start Date End Date Kelli Horton FNP [address] [place] [address] PCP - General Family Medicine 05/20/22
--- OUTSIDE RECORDS SUMMARY | 2024-05-02 11:57 | XMS_ITS | Encounter Summary ---
Author Organization [employer] [facility] [facility] [employer] Address [address] [facility] 7t [place] [address] Care Team Providers Care Security Assurance Specialist Name Role Phone [facility] Primary Care Provider [phone] Encounter Details Date Type Department Care Team (Late st Contact Info) Description 09/30/2022 Abstract [facility] MEDICINE [address] [place] [address] [place] [address] [address] Social History Tobacco Use Types Packs/Day Years [...] Description 06/13/2024 10:30 AM EDT Medication Management [address] [phone] 07/18/2024 9:30 AM EDT Clinical Support [address] [phone] Tammie Diaz RN documented as of this encounter Procedures Procedure Name Priority Date/Time Associated Diagnosis Comments HM MAMMOGRAPHY Routine 05/22/2022 3:11 PM EST documented in this encounter Results * Mammography (05/22/2022 3:11 PM EST) Mammogram BI-RADS 1 Negative Comment:Routine Annual Mammo gram Anatomical Region Laterality Modality Other us Darcy Temple MD HEALTH MAINTENANCE Final Res ult documented in this encounter Visit Diagnoses Not on filedocumented in this encounter Additional Health Concerns Assessment Noted Time PHQ-9 Depression Total Score: 21 022 10:03 AM EST documented as of this encounter Care Teams Security Assurance Specialist Relationship Specialty Start Date End Date Kelli Horton FNP [address] [place] [phone] PCP - General Family Medicine 05/20/22 documented as of this encounter
--- OUTSIDE RECORDS SUMMARY | 2024-05-02 11:57 | XMS_ITS | Encounter Summary ---
Author Organization [employer] Address [address] [facility] 7t [place] [address] Care Team Providers Care Capacity Analyst Name Role Phone [facility] Primary Care Provider [phone] Reason for Visit * Reason Onset Date Comments Med Refill 01/28/2024 Encounter Details Date Type Department Care Team ([facility] st Contact Info) Description 01/28/2024 Telephone [facility] MEDICINE [address] [place] [address] [facility] [address] [place] [address] Med Refill Social History Tobacco Use Types [...] Description 06/13/2024 10:30 AM EDT Medication Management [address] [address] 07/18/2024 9:30 AM EDT Clinical Support [address] [address] Tammie Diaz RN documented as of this encounter Visit Diagnoses Not on filedocumented in this encounter Additional Health Concerns Assessment Noted Time PHQ-9 Depression Total Score: 0 12/25/19 24 10:25 AM EDT documented as of this encounter Care Teams Capacity Analyst Relationship Specialty Start Date End Date Kelli Horton FNP [address] [place] [phone] PCP - General Family Medicine 05/20/22 documented as of this encounter
--- OUTSIDE RECORDS SUMMARY | 2024-05-02 11:57 | XMS_ITS | Encounter Summary ---
Author Organization [employer] Address [address] [facility] 7 [place] [address] Care Team Providers Care Md Allergy Immunology Name Role Phone [place] [facility] Primary Care Provider [phone] Reason for Visit * Reason Onset Date Comments Referral 12/11/2022 Encounter Details Date Type Department Care Team (Late Contact Info) Description 12/11/2022 Telephone [facility] MEDICINE [address] [place] [address] [facility] [address] [place] [address] Referral Social History Tobacco Use Types Packs/Day [...] and medication list to be faxed to [phone]. documented in this encounter Plan of Treatment Upcoming Encounters Date Type Department Care Team (Late st Contact Info) Description 06/13/2024 10:30 AM EDT Medication Management [address] [address] 07/18/2024 9:30 AM EDT Clinical Support [address] [address] Tammie Diaz, RN documented as of this encounter Visit Diagnoses Not on filedocumented in this encounter Additional Health Concerns Assessment Noted Time PHQ-9 Depression Total Score: 21 022 10:03 AM EST documented as of this encounter Care Teams Md Allergy Immunology Relationship Specialty Start Date End Date Kelli Horton FNP [address] [place] [phone] PCP - General Family Medicine 05/20/22 documented as of this encounter
--- OUTSIDE RECORDS SUMMARY | 2024-05-02 11:57 | XMS_ITS | Encounter Summary ---
Author Organization [employer] Address [address] [facility] 7[address] [place] [address] Care Team Providers Care Choral Teacher Name Role Phone Sol Kelli INHALATION THERAPY TEACHER Primary Care Provider [phone] Encounter Details Date Type Department Care Team ([facility] st Contact Info) Description 04/25/2024 10:00 AM EST Telemedicine [facility] [address] [place] [address] Sada Johnston, PharmD [address] [place] [address] Benign essential hypertension (Primary Dx); Moderate persistent asthma with acute exacerbation Social History Tobacco Use Types Packs/Day Years [...] as of this encounter Progress Notes * Sada Johnston PharmD - 04/25/2024 10:00 AM EST Pharmacy Consult Visit Type: MTM Visit Pharmacist: Sada Johnston PharmD Referral Diagnosis: No Referral Pharmacy Recommendations for Provider: Since patient receives monthly medboxes, please contact medbox pharmacist with any medication changes (initiations, discontinuation, dose adjustments) Background/ Visit Intake Ludivina Hussein is a 68 y.o. patient here for a new patient visit. Visit completed over the phone. Allergies: is allergic to morphine sulfate er. Preferred Pharmacy: [facility] - [place], [place] - [address] [place] [address] [address] [facility] [id number] [id number] - [place], [place] - [address] [facility] [address] [facility] [address] Medbox: Yes, last medbox on 03/21/24 . Assessment & Plan Adherence: History: Medication Reconciliation: Reports use of the following medications that are not currently active in [facility] medlist: Trelegy 200-62.5-25 mcg/act 1 puff once daily (prescribed by Dr. Chaparro Jeffers - LF 03/29/24) Trazodone 100 mg once daily (prescribed by Dr. Salamanca - filled in Medbox) Lidocaine-prilocaine cream (LF 03/21/2024) Denies use of the following medications that are active in [facility] medlist: Spiriva respimat inhaler (switched to Trelegy) Advair HFA inhaler (switched to Trelegy) Calcium carbonate-cholecalciferol (patient actively fills prescription for individual agents, rather than the combination tablet) Celecoxib (LF 05/13/23, acute) Gabapentin (LF 06/2021) Lidocaine patches (no dispense hx) Polyethylene glycol powder (no dispense hx) OTC medication, vitamin, supplement use: denies Adherence: Medication Organization: Uses medboxes from [facility] pharmacy Missed doses: Reports missing 1-2 doses/week Patient denies missing doses that are in the AM and HS slot of the medbox. However, patient reportsmissing 1-2 doses/week of the PM slot of the medbox. Pharmacist offered to move the PM medications to the HS slot for potential for improved adherence. Patient denied interest and would like to keep the medboxes set up the way that they currently are. Reports using the following strategies to improve adherence: Sets alarms to remind (will have a reminder set up to take the PM slot of medications with dinnertime) Read/Write: Yes, in [place] Goals of therapy: Improve adherence & minimize missed doses (<2 missed doses/week) Recommendations/Monitoring: Since patient receives monthly medboxes, please contact medbox pharmacist with any medication changes (initiations, discontinuation, dose adjustments) Pharmacy updated medlist in [facility] to match patient's current medication use. Pharmacy contacted psych provider (Dr. Salamanca) to confirm total daily dose of trazodone (patient has prescriptions for trazodone 100 mg once daily and trazodone 150 mg (2 tabs) once daily). Office confirmed that patient's total daily dose of trazodone is to be 400 mg once daily. Asthma/COPD Pharmacologic Therapy: Trelegy 200/62.5/25 mcg/act 1 puff once daily Montelukast 10 mg once daily Albuterol HFA 2 puffs every 4 hours as needed Albuterol nebs every 4-6 hours as needed History: Follows with [facility] pulmonology (Dr. Jeffers - last visit 03/28/24): Maintenance inhaler regimen (Advair + Spiriva) switched to Trelegy Patient reported continuing to take Advair+Spiriva, as they reported being unsure of why their inhaler regimen was switched or what they are to be actively taking. Patient reported that they tried using the Trelegy ellipta inhaler, however reported not liking the taste of it. Patient denied rinsing mouth after use. Patient reported using albuterol rescue inhaler 2 puffs twice daily, as they reported that they believed this to be part of their maintenance regimen. Patient denied experiencing symptoms of SOB/wheezing/etc during times of use of albuterol inhaler. Goals of Therapy: Per [employer] Asthma Guidelnes: Optimize therapy to achieve symptom control (defined as rescue inhaler use < 2x per week). Prevent hospitalization secondary to exacerbation Plan: Continue current regimen as directed. Pharmacist relayed to patient that bead cutter's plan is to initiate Trelegy ellipta in place of Advair and Spiriva. Pharmacist counseled patient on proper administration of Trelegy ellipta - encouraged to rinse mouth with water and spit out after use - in order to promote tolerability and adherence to the medication. Patient reported understanding on administration of use and verbalized understanding of inhaler regimen. Plan to follow up in ~1 month to re-assess tolerability of the Trelegy ellipta and frequency of useof albuterol rescue inhaler. Patient verbalized understanding and agreeable to plan. Education: Reviewed the difference between maintenance and rescue medications. Counseled patient on the importance of using maintenance inhaler as prescribed to improve symptom control, reduce the risk of exacerbation, & minimize the need for RAFAT. Patient confirmed understanding. Hypertension: Pharmacologic Therapy: Amlodipine 2.5 mg once daily Lisinopril-hydrochlorothiazide 10-12.5 mg once daily History: Patient reported owning a home BP monitor, however denied SMBP Pertinent negatives include chest pain, head ache, blurry vision. Recent Blood Pressure values: BP Readings from Last 4 Encounters: 04/04/24 120/82 12/25/23 120/76 10/30/23 121/68 08/27/23 122/68 Pulse Readings from Last 4 Encounters: 04/04/24 84 12/25/23 74 10/30/23 79 08/27/23 80 Lab monitoring Lab Results Component Value Date NA 139 01/16/2024 K 3.7 01/16/2024 CREATININE 0.92 01/16/2024 EGFR >60 01/16/2024 Goals of Therapy per JNC 8: Achieve & maintain BP <140/90mmHg Plan: BP at goal. Continue current regimen as directed. Patient encouraged to SMBP ~1-3x/week and log results in order to further assess control of BP. Patient reported understanding. Education: Counseling provided to SMBP & log results for review in follow up. Reviewed BP goals, patient instructed to call office if extremes of BP are noted prior to follow up. ASCVD Risk Pharmacologic Therapy: Atorvastatin 20 mg once daily Lab monitoring: Lab Results Component Value Date CHOL 128 05/04/2023 LDLCHOLCAL 59 05/04/2023 HDL 46 05/04/2023 TRIG 118 05/04/2023 AST 29 01/16/2024 ALT 37 (H) 01/16/2024 The ASCVD Risk score (Andreina COOPER, et al., 2019) failed to calculate for the following reasons: The valid total cholesterol range is 130 to 320 mg/dL ACC ASCVD Risk score calculator: ~4.4% (low risk) Goals of Therapy: ACC/AHA 2018 Cholesterol Guidelines: Ensure evidence based and safe use of medications for primary prevention of ASCVD. Plan: FLP at goal. Continue current regimen as directed. Patient due for annual labs. Pharmacist ordered FLP via standing order. Immunizations History: Immunization History Administered Date(s) Administered Hep A, Adult 02/13/2009, 10/01/2009 Hep B, adult 10/25/1999, 11/30/1999, 06/18/2000 Influenza Injectable Quadrivalant Preservative Free IIV4 MDCK 03/05/2020 Influenza injectable quadrivalent IIV4 with preservative 03/27/2017, 01/11/2018 Influenza injectable quadrivalent preservative free 02/14/2019, 12/28/2020, 12/16/2021, 04/22/2023 Influenza, High Dose Seasonal, Preservative Free 01/21/2018, 12/25/2023 Influenza, IIV3, injectable 12/21/2017, 01/21/2019, 11/22/2019, 11/21/2021 Influenza, Split (incl. purified surface antigen) 01/13/2012 Influenza, Unspecified 11/21/2021 Moderna Covid-19 Vaccine 12+ 05/25/2020, 06/22/2020, 01/31/2021, 07/12/2021 Pfizer Covid-19 Vaccine 12+ 12/25/2023 Pneumococcal Conjugate PCV 13 03/27/2017 Pneumococcal Conjugate PCV 20 04/22/2023 Pneumococcal Polysaccharide PPSV23 12/31/2007 RSV Bivalent 05/04/2023 TD (adult), 2 Lf tetanus toxoid, preservative free, adsorbed 12/10/1999, 03/29/2019 Tdap 02/13/2009 Zoster, Recombinant 03/05/2020, 05/08/2020 Goals of therapy: Ensure patient is up to date per the CDC Adult Immunization Schedule. Assessment/Plan: Influenza 9319-5489 vaccine: Up-to-date . Next dose due annually. COVID-19 4856-6238 vaccine: Up-to-date . Next dose due annually. Hepatitis B series (Age 60+ with risk factors): Up-to-date . Pneumococcal vaccines (Age >65): Up-to-date Shingrix series (age > 50 ): Up-to-date . RSV vaccine (Age 60-74 with risk factors): Up-to-date Td/TDaP (within the past 10 years): Up-to-date . Next dose due every 10 years. Plan: Pharmacist reviewed immunization record and no vaccination gaps exist at this time. Patient Action Plan Reviewed today with plan to revisit at follow up in 1 month: 06/13/24 Continue to adhere to medication with assistance of medbox program. Monitor blood pressure as directed and log results Use maintenance inhaler (Trelegy ellipta) daily, and use albuterol rescue inhaler for symptom relief. Complete outstanding labwork documented in this encounter Plan of Treatment Upcoming Encounters Date Type Department Care Team (Late st Contact Info) Description 06/13/2024 10:30 AM EDT Medication Management [address] [address] 07/18/2024 9:30 AM EDT Clinical Support [address] [address] Tammie Diaz RN Scheduled Orders Name Type Priority Associated Diagnoses Orde r Schedule Lipid Panel, Standard Lab Routine Benign essential hypertension Expected: 04/25/2024 (Approximate), Expires: 04/25/2025 documented as of this encounter Visit Diagnoses Diagnosis Benign essential hypertension- Primary Essential hypertension, benign Moderate persistent asthma with acute exacerbation documented in this encounter Additional Health Concerns Assessment Noted Time PHQ-9 Depression Total Score: 0 04/04/19 25 11:23 AM EST documented as of this encounter Care Teams Choral Teacher Relationship Specialty Start Date End Date Kelli Horton FNP [address] [place] [id number] PCP - General Family Medicine 05/20/22 documented as of this encounter
--- OUTSIDE RECORDS SUMMARY | 2024-05-02 11:57 | XMS_ITS | Encounter Summary ---
Author Organization [employer] Address [address] [facility] 7[address] [place] [address] Care Team Providers Care Water Registrar Name Role Phone Beatriz Ford [facility] Primary Care Provider Aj bradford [place] [facility] Primary Care Provider [phone] Reason for Visit * Reason Comments Med Refill Encounter Details Date Type Department Care Team ([facility] st Contact Info) Description 04/03/2022 Refill [facility] [address] [place] [address] Name, MD Haroon [address] [place] [address] Chronic pain syndrome Social History Tobacco Use [...] on hydrocodone med , please contact .. (Macedonian speaker) documented in this encounter Plan of Treatment Upcoming Encounters Date Type Department Care Team (Late st Contact Info) Description 06/13/2024 10:30 AM EDT Medication Management [address] [address] 07/18/2024 9:30 AM EDT Clinical Support [address] [address] Tammie Diaz RN documented as of this encounter Visit Diagnoses Diagnosis Chronic pain syndrome documented in this encounter Additional Health Concerns Assessment Noted Time PHQ-9 Depression Total Score: 21 022 10:03 AM EST documented as of this encounter Care Teams Water Registrar Relationship Specialty Start Date End Date Beatriz Ford FNP PCP - General Family Medicine 02/21/22 05/19/22 OhiopyleKelli ren FNP [address] [place] [id number] PCP - General Family Medicine 05/20/22 documented as of this encounter
== END 2024-05-02 11:31 | disposition home or self-care (01) ==
PROVIDERS: PCP Registered Nurse
DX: G56.02 Carpal tunnel syndrome, left upper limb (principal)
CPT/HCPCS: 99214

== ENCOUNTER → 2024-05-02 10:52 | Outpatient (BNVA) | payer OTHER, SELFPAY | PROVIDERS: PCP Registered Nurse | DX: G56.02 Carpal tunnel syndrome, left upper limb (principal) | CPT/HCPCS: 99212 ==

== ENCOUNTER 2024-05-05 11:18 | Emergency (ER) | payer OTHER, SELFPAY ==
--- NOTE | ~2024-05-05 | XR_ITS ---
EXAMINATION: XR CHEST CLINICAL INFORMATION: cough and fever COMPARISON: None available. TECHNIQUE: 2 views of the chest were obtained. FINDINGS: The cardiac, hilar, and mediastinal contours are normal. Atherosclerotic aortic calcification. The lungs are clear bilaterally. There is no pneumothorax or pleural effusion. There is no focal osseous or soft tissue abnormality. There are surgical anchors in the right humeral head. There are mild degenerative spinal changes. XR/XR chest 2V IMPRESSION: No active pulmonary disease. Electronically signed by: Gabino Monson MD 05/05/2024 01:08 PM [facility]
[2024-05-05 12:19] VITALS: BP 126/61; PULSE 91; RESP 18; TEMP 36.8; O2SAT 97; BMI 38.7
--- NOTE | 2024-05-05 12:22 | ED_ITS ---
HPI - General Adult General Chief complaint: General Medical Stated complaint: Headache, abd pain Time Seen by Provider: 05/05/24 16:08 Source: patient and rental sales associate (all interactions with this patient were facilitated with an [facility] seismology technical officer) Mode of arrival: ambulatory Limitations: language barrier (all interactions with this patient were facilitated with an [facility] seismology technical officer) History of Present Illness ED Provider: Perla Urrutia PA-C HPI narrative: Patient is a 68 year old assigned female at with a history of DM, kidney stones, HLD, and JUSTIN presenting to the emergency department today with a headache, body aches, and nausea. Patient states that last night she began to have body aches, nausea, and a headache. Patient denies any dizziness, lightheadedness, abdominal pain, vomiting, fever, chills, blurry vision, double vision, loss of vision, chest pain, difficulty breathing, shortness of breath, back pain, night sweats, pain with urination, increased urinary frequency, increased urinary urgency, blood in her urine or stool, syncope or a near syncopal episode, recent trauma or falls, bowel incontinence, bladder incontinence, or any other complaints at this time. Relieving factors: none Exacerbating factors: none Associated symptoms: headaches and nausea/vomiting Treatments prior to arrival: none Related Data Home Medications ?Medication ?Instructions ?Recorded ?Confirmed albuterol sulfate 90 mcg/actuation 90 mcg inhalation Q4-6H PRN 03/21/20 03/28/24 aerosol inhaler Wheezing atorvastatin 20 mg tablet 20 mg PO DAILY 03/21/20 03/28/24 clonazepam 0.5 mg tablet 0.5 mg PO DAILY PRN Anxiety 03/21/20 03/28/24 omeprazole 20 mg capsule,delayed 20 mg PO QAM 03/21/20 03/28/24 release amlodipine 2.5 mg tablet 2.5 mg PO DAILY 04/03/20 03/28/24 fluticasone propionate 50 50 mcg intranasal BID 04/03/20 03/28/24 mcg/actuation nasal spray,suspension lisinopril 10 1 tab PO DAILY 04/03/20 03/28/24 mg-hydrochlorothiazide 12.5 mg tablet metformin 500 mg tablet 500 mg PO QAM 04/03/20 03/28/24 montelukast 10 mg tablet 10 mg PO DAILY 04/03/20 03/28/24 ursodiol 250 mg tablet 750 mg PO BID 04/03/20 03/28/24 vitamin E (dl, acetate) 180 mg 180 mg PO DAILY 11/22/20 03/28/24 (400 unit) capsule darifenacin 15 mg tablet,extended 15 mg PO QAM 06/24/21 03/28/24 release 24 hr naloxone 4 mg/actuation nasal 0 spray intranasal 06/24/21 03/28/24 spray (Narcan) trazodone 150 mg tablet 300 mg PO BEDTIME 06/24/21 03/28/24 albuterol sulfate 2.5 mg/3 mL mg inhalation 10/01/21 03/28/24 (0.083 %) solution for nebulization celecoxib 200 mg capsule 0 mg PO 07/14/22 03/28/24 loratadine 10 mg tablet 10 mg PO QAM 08/13/22 03/28/24 Previous Rx's ?Medication ?Instructions ?Recorded docusate sodium 100 mg capsule 100 mg PO BID 14 days #28 caps 11/24/20 acetaminophen 500 mg tablet 500 mg PO Q6H PRN fever or pain 02/16/22 (Tylenol Extra Strength) #14 tabs morphine 15 mg tablet,extended 15 mg PO Q12H pain severe 3 days 08/27/22 release (MS Contin) #6 tabs oxycodone-acetaminophen 5 mg-325 1 tab PO Q4-6H PRN pain (scale 08/27/22 mg tablet (Percocet) score 4-6) 7 days #42 tabs calcium 600 mg (as 1 tab PO QAM #30 tabs 02/02/23 carbonate)-vitamin D3 10 mcg (400 unit) tablet morphine 15 mg immediate release 15 mg PO Q6H PRN pain #14 tabs 08/26/23 tablet azithromycin 250 mg tablet See Rx Instructions PO .COMPLEX #6 01/16/24 tabs benzonatate 100 mg capsule 100 mg PO TID PRN cough #20 caps 01/16/24 fluticasone fur. 200 mcg-umeclid 1 inh inhalation DAILY #1 ea 03/29/24 62.5 mcg-vilant 25 mcg inhalat.powder (Trelegy Ellipta) Allergies Allergy/AdvReac Type Severity Reaction Status Date / Time No Known Allergies Allergy Verified 05/05/24 12:23 [No Known Allergies*] Review of Systems 2 Constitutional: Constitutional: Reports no additional constitutional complaints, Reports body ache(s), Denies chills, Denies fever(s), Reports headache(s) and Denies night sweats Eyes: Eyes: Reports no additional eye complaints, Denies blurry vision, Denies change in vision, Denies diplopia, Denies eye discharge, Denies loss of vision and Denies eye pain ENT: Denies dizziness and Reports headache(s) Cardiovascular: Cardiovascular: Reports no additional cardiovascular complaints, Denies chest pain, Denies lightheadedness, Denies Loss of Consciousness and Denies dyspnea Respiratory: Respiratory: Reports no additional respiratory complaints and Denies dyspnea Gastrointestinal: Gastrointestinal: Reports no additional gastrointestinal complaints, Denies abdominal pain, Denies melena, Denies hematochezia, Denies change in bowel habits, Denies change in stool character, Reports nausea and Denies vomiting Genitourinary: Genitourinary: Denies hematuria, Denies urinary frequency, Denies dysuria, Denies urinary incontinence, Denies urinary hesitancy and Denies urinary urgency Musculoskeletal: Musculoskeletal: Reports no additional musculoskeletal complaints, Denies numbness and Denies tingling Neurologic: Denies dizziness, Reports headache(s), Denies loss of vision, Denies numbness and Denies tingling Psychiatric: Psychiatric: Reports no additional psychiatric complaints Endocrine: Endocrine: Reports no additional endocrine complaints Hematologic/Lymphatic: Hematologic/Lymphatic: Reports no additional hematologic/lymphatic complaints Allergic/Immunologic: Allergic/Immunologic: Reports no additional allergic/immunologic complaints [facility] Past Medical History Attestation statement: The following information was validated with the patient. Source: old records reviewed and nursing notes reviewed Medical History Primary osteoarthritis of left knee Osteoarthritis of hands, bilateral History of COVID-19 RBBB Hx of hepatitis C Asthma Anxiety Elevated cholesterol COVID-19 vaccine series completed JUSTIN (obstructive sleep apnea) Chronic kidney disease Depression Other intervertebral disc displacement, lumbar region Spondylosis of lumbar spine Lumbar facet arthropathy Bilateral primary osteoarthritis of knee Renal stones Essential hypertension Type 2 diabetes mellitus with complication, without long-term current use of insulin Vitamin D deficiency Other chronic pain History of renal calculi Surgical History History of total right knee replacement (TKR) Hx of dilation and curettage History of laryngoscopy Hx of umbilical hernia repair Hx of arthroscopy of left knee Hx of lithotripsy History of esophagogastroduodenoscopy (EGD) S/P repair of ventral hernia H/O abdominal hysterectomy H/O tubal ligation History of colonoscopy Family History Family History Father Diabetes mellitus HTN (hypertension) Mother No problems noted. 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 Housing: House Are you a primary health care law specialist to a significant other at home: No Do you presently have visiting nurse or other home services: Yes Alcohol intake: former Year quit: 1995 Comment: medicated in pacu Patient Tobacco Use Status: Former Tobacco user Tobacco use type: Cigarette Years Smoked: 5+ Substance Use Type: Crack/Cocaine Advance Directives: No Advance Directives Information Provided: No Do you have a plan to hurt others: No Plan service: No Current occupational status: retired 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 Physical Exam ED Vital Signs: Vital Signs - 24 hr 05/05/24 12:19 05/05/24 16:15 Temperature 98.2 F 98.2 F Pulse Rate 91 91 Respiratory Rate 18 18 Blood Pressure 126/61 126/61 Pulse Oximetry 97 97 Oxygen Delivery Method Room Air Room Air BMI result Body Mass Index 38.7 Const General: cooperative, no acute distress, alert and awake Nutritional Appearance: well nourished Orientation/consciousness: patient oriented x3 Limitations: no limitations HENMT Head: Yes normal to inspection and Yes atraumatic Ears: hearing grossly normal bilaterally and external ears normal General nose exam: Normal external nose present, no nasal discharge noted and no epistaxis Face and sinus: Yes normal facial exam, No abrasion and No laceration Mouth: Normal oral and palatal mucosa present, no drooling and no muffled voice Eyes General: appearance normal, both eyes and all related structures Periorbital: periorbital findings normal Eyelids: Yes eyelids normal Conjunctivae: conjunctivae normal Pupils: Equal, round and reactive pupils present EOM: EOMs intact bilaterally Neck Neck: Yes normal visual inspection, Yes full ROM and Yes no lymphadenopathy Chest Chest palpation & inspection: normal inspection of the chest Resp Effort & Inspection: normal respiratory effort and able to speak in complete sentences GI Inspection: Yes normal to inspection Neuro General: patient oriented x3, moves all extremities and CN's II-XI intact bilaterally Cranial nerves: Yes Equal, round and reactive pupils present Cognition (Neuro): normal cognition Extrem General: Yes normal to inspection, Yes full ROM and Yes capillary refill normal Psych Appearance: grossly normal Mental Status: mental status grossly normal Affect: normal affect Attitude: cooperative Thought process: Normal thought process present Thought content: Normal thought content present Insight: Good insight present (Psych) Course Course Course Narrative: This is a rapid medical exam performed by Kiel Kumar NP: Additional HPI, ROS, PE not included below will be deferred to primary provider. Patient is a 68-year-old female with history asthma, JUSTIN, CKD, T2 DM, HTN presenting with complaint of cough, chest pain, subjective fever, nausea since last night. Denies vomiting or diarrhea. Plan: EKG, viral serology, CXR Medical Decision Making Medical Decision Making MDM Narrative: Patient is a 68 year old assigned female at with a history of DM, kidney stones, HLD, and JUSTIN presenting to the emergency department today with a headache, body aches, and nausea. Patient's physical exam was unremarkable. Patient's blood work was unremarkable. Patient's EKG was unremarkable. Patient's chest x-ray showed no acute process. Patient's influenza testing was positive. I explained my physical exam findings as well as all test results to the patient. I answered all questions asked by the patient. I stressed the importance of the patient taking her medication as directed (either prescribed or as the over the counter packaging recommends). I stressed the importance of the patient following up with her primary care provider. I stressed the importance of the patient returning to the emergency department immediately if her symptoms were to worsen or if she were to develop any dizziness, shortness of breath, difficulty breathing, chest pain, blurry vision, loss of vision, nausea, vomiting, abdominal pain, fever, chills, back pain, or any other complaints. Patient verbalized agreement and understanding with this treatment plan and discharge. Differential Diagnosis Differential Diagnoses: The differential diagnosis associated with the presentation includes Influenza COVID-19 RSV Viral illness Admission/Observation Consideration of admission/observation: Escalation of care including admission/observation considered Patient would have been admitted to the hospital had her work up had any findings where hospital admission was appropriate and her clinical presentation warranted hospital admission. Lab Data [facility] Lab Attestation statement: I reviewed the patient's lab results. My interpretation of these results are in the MDM Rationale portion of this note. 05/05/24 12:33 05/05/24 12:33 Labs: Lab Results 05/05/24 Range/Units 12:33 WBC 5.2 (4.8-10.8) X10*3/uL RBC 4.03 L (4.20-5.50) X10*6/uL Hgb 12.5 (12.0-16.0) g/dl Hct 35.5 L (37.0-47.0) % MCV 88.1 (80.0-98.0) fL MCH 31.0 (27.0-33.0) pg MCHC 35.2 H (31.0-35.0) g/dl RDW 11.9 (11.0-16.0) % Plt Count 218 (160-400) X10*3/uL MPV 8.7 L (9.4-12.3) fL Immature Gran % (Auto) 0.2 (0.0-0.4) % Neut % (Auto) 63.0 (45-73) % Lymph % (Auto) 18.8 L (20-40) % Canyon % (Auto) 16.1 H (2-11) % Eos % (Auto) 1.7 (0-4) % Baso % (Auto) 0.2 (0-2) % Lymph # (Auto) 1.0 L (1.2-4.9) X10*3/uL Canyon # (Auto) 0.8 (0.1-1.2) X10*3/uL Eos # (Auto) 0.1 (0.0-0.4) X10*3/uL Baso # (Auto) 0.0 (0.0-0.2) X10*3/uL Abs Immat Gran (auto) 0.01 (0.00-0.03) X10*3/uL Absolute Neuts (auto) 3.3 (2.0-8.3) x10*3/uL Absolute Nucleated RBC 0.000 (0.0-0.012) X10*3/uL Nucleated RBC % (auto) 0.0 (0.0-0.2) /100WBC Sodium 134 L (135-145) mmol/L Potassium 3.4 (3.3-5.1) mmol/L Chloride 99 (96-108) mmol/L Carbon Dioxide 25 (22-29) mmol/L Anion Gap 13 (12-20) BUN 16 (9-16) mg/dL Creatinine 0.89 (0.5-1.4) mg/dL Estim Creat Clear Calc 57.0 Estimated GFR > 60 Random Glucose 136 H (60-115) mg/dL Calcium 9.1 (8.4-10.2) mg/dL Total Bilirubin 0.4 (0.0-1.0) mg/dL AST 35 H (5-31) U/L ALT 44 H (0-31) U/L Alkaline Phosphatase 85 (39-117) U/L Total Protein 7.4 (6.5-8.0) g/dL Albumin 3.8 (3.5-5.0) g/dL Influenza Type A (PCR) POSITIVE A (Negative) Influenza Type B (PCR) NEGATIVE (Negative) RSV RNA Qual (PCR) NEGATIVE (Negative) SARS-CoV-2 RNA (RT-PCR) NEGATIVE (Negative) Independent Interpretation I performed an independent interpretation of an: EKG and Plain X-Ray Interpretation: My interpretation is in agreement with the radiologist's impression of this imaging study. L EXAMINATION: XR CHEST CLINICAL INFORMATION: cough and fever COMPARISON: None available. TECHNIQUE: 2 views of the chest were obtained. FINDINGS: The cardiac, hilar, and mediastinal contours are normal. Atherosclerotic aortic calcification. The lungs are clear bilaterally. There is no pneumothorax or pleural effusion. There is no focal osseous or soft tissue abnormality. There are surgical anchors in the right humeral head. There are mild degenerative spinal changes. XR/XR chest 2V IMPRESSION: No active pulmonary disease. Electronically signed by: Gabino Monson MD 05/05/2024 01:08 PM [facility] Dictated By: Gabino Monson MD Signed By: Electronically signed by Gabino Monson MD 05/05/24 1308 I independently interpreted this EKG and am in agreement with the below findings: Vent. Rate: 92 BPM Atrial Rate: 92 BPM P-R Int: 168 ms QRS Dur: 128 ms QT Int: 390 ms P-R-T Axes: 29 -14 26 degrees QTcB Int: 482 ms Normal sinus rhythm Possible Left atrial enlargement Right bundle branch block When compared with ECG of 16-Jan-2024 19:00, No significant change was found Referred By: Casandra Kumar Electronically Signed By: CAIO DEXTER MD Dictated By: Caio Dexter MD Signed By: Electronically signed by Caio Dexter MD 05/05/24 7208 Radiology Impression Discussion of test interpretation with radiology: I have reviewed the radiologist's reading. Discharge Plan Discharge Clinical Impression: Influenza Patient Disposition: Home, Self-Care Instructions: Influenza (DC) Additional Instructions: Follow up with your primary care provider. Return to the emergency department immediately if your symptoms worsen or if you develop any dizziness, shortness of breath, difficulty breathing, chest pain, blurry vision, loss of vision, nausea, vomiting, abdominal pain, fever, chills, back pain, or any other complaints. Mike?seguimiento?con christian m?dico de atenci?n primaria. Acuda inmediatamente al servicio de urgencias si jose raul s?ntomas empeoran o si presenta falta de aliento, dificultad para respirar, dolor tor?cico, mareos, aturdimiento, dolor de espalda, dolor abdominal, fiebre, escalofr?os o cualquier otro s?ntoma. Prescriptions: No Action calcium carbonate-vitamin D3 600 mg-10 mcg (400 unit) tablet 1 tab PO QAM Qty: 30 2RF vitamin E (dl, acetate) 180 mg (400 unit) capsule 180 mg PO DAILY docusate sodium 100 mg Capsule 100 mg PO BID 14 Days Qty: 28 0RF acetaminophen [Tylenol Extra Strength] 500 mg tablet 500 mg PO Q6H PRN (Reason: fever or pain) Qty: 14 0RF morphine 15 mg tablet 15 mg PO Q6H PRN (Reason: pain) Qty: 14 0RF Rx Instructions: Patient may request partial fill; Partial Fill upon patient request. azithromycin 250 mg tablet See Rx Instructions .ROUTE .COMPLEX Qty: 6 0RF Rx Instructions: For 250 mg dose pack: take 500 mg today (day 1), then 250 mg for 4 days (days 2-5) benzonatate 100 mg capsule 100 mg PO TID PRN (Reason: cough) Qty: 20 0RF oxycodone-acetaminophen [Percocet] 5-325 mg tablet 1 tab PO Q4-6H PRN (Reason: pain (scale score 4-6)) 7 Days Qty: 42 0RF Rx Instructions: Partial Fill upon patient request. morphine [MS Contin] 15 mg tablet extended release 15 mg PO Q12H 3 Days Qty: 6 0RF Rx Instructions: Partial Fill upon patient request. lisinopril-hydrochlorothiazide 10-12.5 mg tablet 1 tab PO DAILY amlodipine 2.5 mg tablet 2.5 mg PO DAILY metformin 500 mg tablet 500 mg PO QAM fluticasone propionate 50 mcg/actuation spray,suspension 50 mcg intranasal BID montelukast 10 mg tablet 10 mg PO DAILY ursodiol 250 mg tablet 750 mg PO BID albuterol sulfate 90 mcg/actuation HFA aerosol inhaler 90 mcg inhalation Q4-6H PRN (Reason: Wheezing) clonazepam 0.5 mg tablet 0.5 mg PO DAILY PRN (Reason: Anxiety) atorvastatin 20 mg tablet 20 mg PO DAILY omeprazole 20 mg capsule,delayed release(DR/EC) 20 mg PO QAM naloxone [Narcan] 4 mg/actuation spray,non-aerosol 0 spray intranasal darifenacin 15 mg tablet extended release 24 hr 15 mg PO QAM trazodone 150 mg tablet 300 mg PO BEDTIME albuterol sulfate 2.5 mg /3 mL (0.083 %) solution for nebulization inhalation celecoxib 200 mg capsule 0 mg PO Trelegy Ellipta 200-62.5-25 mcg blister with device 1 inh inhalation DAILY Qty: 1 6RF loratadine 10 mg tablet 10 mg PO QAM Referrals: Bradford,Kelli, VP CLINICAL RESEARCH [Primary Care Provider] - Interventions: ED Discharge Assessment Last Done: 05/05/24 16:15 Discharge Date/Time: 05/05/24 16:20 Print Language: Upper Sorbian
--- NOTE | 2024-05-05 12:23 | ECG_ITS ---
Test Reason : cp Blood Pressure : */* mmHG Vent. Rate : 92 BPM Atrial Rate : 92 BPM P-R Int : 168 ms QRS Dur : 128 ms QT Int : 390 ms P-R-T Axes : 29 -14 26 degrees QTcB Int : 482 ms Normal sinus rhythm Possible Left atrial enlargement Right bundle branch block Abnormal ECG When compared with ECG of 16-Jan-2024 19:00, No significant change was found Referred By: Casandra Kumar Electronically Signed By: CHANELL DEXTER MD
[2024-05-05 12:44] LABS: MANUAL DIFF FLAG NO
[2024-05-05 12:49] LABS: Basophils Percent Auto 0.2 % (0-2); Eosinophils Absolute Auto 0.1 X10*3/uL (0.0-0.4); Eosinophils Percent Auto 1.7 % (0-4); Hematocrit 35.5 % (37.0-47.0); Hemoglobin 12.5 g/dl (12.0-16.0); Imm Gran Abs Auto 0.01 X10*3/uL (0.00-0.03); Imm Gran Pct Auto 0.2 % (0.0-0.4); Lymphocytes Percent Auto 18.8 % (20-40); Mean Corpuscular HGB Conc 35.2 g/dl (31.0-35.0); Mean Corpuscular Volume 88.1 fL (80.0-98.0); Mean Platelet Volume 8.7 fL (9.4-12.3); Monocytes Absolute Auto 0.8 X10*3/uL (0.1-1.2); Monocytes Percent Auto 16.1 % (2-11); Neutrophils Absolute Auto 3.3 x10*3/uL (2.0-8.3); Platelet Count 218 X10*3/uL (160-400); Red Blood Count 4.03 X10*6/uL (4.20-5.50); Red Cell Distribution Width 11.9 % (11.0-16.0); White Blood Count 5.2 X10*3/uL (4.8-10.8)
[2024-05-05 13:00] LABS: Alanine Aminotransferase 44 U/L (0-31); Albumin Level 3.8 g/dL (3.5-5.0); Alkaline Phosphatase 85 U/L (39-117); Anion Gap 13 (12-20); Aspartate Amino Transferase 35 U/L (5-31); Bilirubin Total 0.4 mg/dL (0.0-1.0); Blood Urea Nitrogen 16 mg/dL (9-16); Calcium 9.1 mg/dL (8.4-10.2); Carbon Dioxide 25 mmol/L (22-29); Chloride 99 mmol/L (96-108); Estimated Glomerular Filt Rate > 60; Glucose Random 136 mg/dL (60-115); Potassium 3.4 mmol/L (3.3-5.1); Sodium 134 mmol/L (135-145); Total Protein 7.4 g/dL (6.5-8.0)
[2024-05-05 13:24] LABS: Influenza A PCR POSITIVE (Negative); Influenza B PCR NEGATIVE (Negative); Resp Syncy Virus RNA Qual PCR NEGATIVE (Negative); SARS COV2 PCR INHOUSE NEGATIVE (Negative)
[2024-05-05 16:15] VITALS: BP 126/61; PULSE 91; RESP 18; TEMP 36.8; O2SAT 97
== END 2024-05-05 16:20 | disposition home or self-care (01) ==
LOC: HO.ED 16:20
PROVIDERS: Registered Nurse Emergency; Emergency Provider Emergency Medicine Emergency Medical Services; PCP Registered Nurse
DX: J10.1 Influenza due to other identified influenza virus with other respiratory manifestations (principal); R51.9 Headache, unspecified; R10.2 Pelvic and perineal pain; M79.10 Myalgia, unspecified site; R50.9 Fever, unspecified; R11.2 Nausea with vomiting, unspecified; R05.9 Cough, unspecified; Z03.818 Encounter for observation for suspected exposure to other biological agents ruled out; Z87.891 Personal history of nicotine dependence; Z79.899 Other long term (current) drug therapy
CPT/HCPCS: 0241U; 71046; 80053; 85025; 93005; 99283

== ENCOUNTER → 2024-05-05 12:23 | Outpatient (BNV) | payer OTHER, SELFPAY | PROVIDERS: Emergency Provider Emergency Medicine Emergency Medical Services; PCP Registered Nurse; Visit Provider Internal Medicine Cardiovascular Disease | DX: I45.10 Unspecified right bundle-branch block (principal) | CPT/HCPCS: 93010 ==

== ENCOUNTER → 2024-05-05 12:23 | Outpatient (BNV) | payer OTHER, SELFPAY | PROVIDERS: PCP Registered Nurse; Visit Provider Radiology Diagnostic Radiology | DX: R05.9 Cough, unspecified (principal); R50.9 Fever, unspecified | CPT/HCPCS: 71046 ==

== ENCOUNTER 2024-05-19 08:59 | Outpatient (REF) | payer OTHER, SELFPAY ==
--- NOTE | ~2024-05-19 | CT_ITS ---
CLINICAL HISTORY: Z87.891 - Personal history of nicotine dependence CT lung cancer screening (LDCT) Comparison: None Technique: Axial CT images of the chest using low-dose technique. Referring provider counseled the patient on shared decision-making for LDCT screening. Additional counseling was provided on smoking cessation. Effective radiation dose total: DLP 51.5 mGycm, CTDIvol 1.7 mGy. Findings: Lung: No emphysema. Focal thickening of the right minor fissure series 6, image 52. No abnormal pulmonary nodules. Coronary artery calcifications: None Limited upper abdomen: Unremarkable Other: None Impression: LungRADS 1: Negative exam. Continue annual screening with low dose Chest CT in 12 months. ##L1# Category 1: Normal; continue annual screening Category 2: Benign appearance or behavior, continue annual screening Category 3: Probably benign, [address] recommended Category 4A: Suspicious, [address] recommended; may consider PET/CT Category 4B: Suspicious, Additional diagnostics and/or tissue sampling recommended Category 4X: Suspicious, Additional diagnostics and/or tissue sampling recommended Category 0: Recalls (incomplete screen due to Incomplete coverage, Noise, Respiratory motion, Expiration, Obscured by acute abnormality) This document has been electronically signed by: Pan Cruz MD on 05/19/2024 16:13:25
--- OUTSIDE RECORDS SUMMARY | 2024-05-19 09:39 | XMS_ITS | Encounter Summary ---
Author Organization [employer] Address [address] [facility] [address] [place] [address] Care Team Providers Care Teamsite Developer Name Role Phone Kelli Horton AUTOMOBILE DESIGNER Primary Care Provider [phone] Encounter Details Date Type Department Care Team ([facility] st Contact Info) Description 02/06/2023 Abstract [facility] MEDICINE [address] [place] [address] Madeleine Valle Social History Tobacco Use Types [...] Care Team (Late st Contact Info) Description 06/16/2024 10:30 AM EDT Medication Management [facility] [address] [place] [address] 07/18/2024 9:30 AM EDT Clinical Support [facility] [address] [place] [address] Tammie Diaz RN documented as of this [...] documented as of this encounter Care Teams Teamsite Developer Relationship Specialty Start Date End Date Kelli Horton FNP [address] [place] [address] PCP - General Family Medicine 05/20/22 documented as of this encounter
--- OUTSIDE RECORDS SUMMARY | 2024-05-19 09:39 | XMS_ITS | Encounter Summary ---
Author Organization [facility] Address [address] [place] [address] Phone Care Team Providers Care Gravity Prospector Name Role Phone [facility] Primary Care Provider [phone] Encounter Details Date Type Department Care Team (Late Contact Info) Description 12/23/2021 Documentation Only [facility] [place], [address] [place] [address] Shaun Morales PA Social History [...] Visit [facility] [address] [place] [address] Danny Mahoney MD [address] [phone] documented as of this encounter Visit Diagnoses Not on filedocumented in this encounter Care Teams Gravity Prospector Relationship Specialty Start Date End Date [place], Kelli [address] [place] [address] PCP - General 11/26/23 documented as of this encounter
--- OUTSIDE RECORDS SUMMARY | 2024-05-19 09:39 | XMS_ITS | Encounter Summary ---
Author Organization [employer] Address [address] [facility] 7[address] [place] [address] Care Team Providers Care Nightman Name Role Phone Kelli Horton [facility] Primary Care Provider Reason for Visit * Reason Comments Med Refill Encounter Details Date Type Department Care Team (Late st Contact Info) Description 12/16/[address] [address] Name, MD Haroon [address] [place] [id number] Chronic low back pain, unspecified back pain [...] Description 06/16/2024 10:30 AM EDT Medication Management [facility] MEDICINE [address] [place] [phone] 07/18/2024 9:30 AM EDT Clinical Support [address] [phone] Tammie Diaz RN documented as of this encounter Visit Diagnoses Diagnosis Chronic low back pain, unspecified back pain laterality, unspecified whether sciatica present documented in this encounter Additional Health Concerns Assessment Noted Time PHQ-9 Depression Total Score: 21 022 10:03 AM EST documented as of this encounter Care Teams Nightman Relationship Specialty Start Date End Date Kelli Horton FNP [address] [place] [id number] PCP - General Family Medicine 05/20/22 documented as of this encounter
--- OUTSIDE RECORDS SUMMARY | 2024-05-19 09:39 | XMS_ITS | Encounter Summary ---
Author Organization [facility] Address [address] [place] [address] Phone Care Team Providers Care Carpet Or Rug Layer Helper Name Role Phone [facility] Primary Care Provider [phone] Encounter Details Date Type Department Care Team (Late Contact Info) Description 12/23/2021 Documentation Only [facility] [place], [address] [place] [address] Shaun Morales PA Social History [...] Visit [facility] [address] [place] [address] Danny Mahoney MD [address] [phone] documented as of this encounter Visit Diagnoses Not on filedocumented in this encounter Care Teams Carpet Or Rug Layer Helper Relationship Specialty Start Date End Date [place], Kelli [address] [place] [address] PCP - General 11/26/23 documented as of this encounter
--- OUTSIDE RECORDS SUMMARY | 2024-05-19 09:39 | XMS_ITS | Encounter Summary ---
Author Organization [employer] Address [address] [facility] 7t [place] [address] Care Team Providers Care Environmental Control Administrator Name Role Phone [facility] Primary Care Provider [phone] Reason for Visit * Reason Onset Date Comments Nurse Triage 02/11/2023 Encounter Details Date Type Department Care Team ([facility] st Contact Info) Description 02/11/2023 Telephone [facility] MED[facility] [address] [place] [address] [facility] 230 [place] [address] Nurse Triage Social History Tobacco Use Types [...] past 12 months, has t he electric, [employer], oil or water [employer] threatened to shut off services in your [...] the only possible outcome for this symptom German Speaker documented in this encounter Plan of Treatment Upcoming Encounters Date Type Department Care Team (Late st Contact Info) Description 06/16/2024 10:30 AM EDT Medication Management [address] [address] 07/18/2024 9:30 AM EDT Clinical Support [address] [address] Tammie Diaz RN documented as of this encounter Visit Diagnoses Not on filedocumented in this encounter Additional Health Concerns Assessment Noted Time PHQ-9 Depression Total Score: 21 022 10:03 AM EST documented as of this encounter Care Teams Environmental Control Administrator Relationship Specialty Start Date End Date Kelli Horton FNP [address] [place] [address] PCP - General Family Medicine 05/20/22 documented as of this encounter
--- OUTSIDE RECORDS SUMMARY | 2024-05-19 09:39 | XMS_ITS | Clinical Summary ---
Author Organization [facility] Address [address] [place] [address] Phone Care Team Providers Care Mountain Bike Guide Name Role Phone Kelli Horton Primary Care Provider [phone] Allergies Active Allergy Reactions Criticality Noted Date [...] follow up pelvic exam C-scope: Previously at [facility]. Date unknown BMD: Routine age 67 Right bundle-branch block 07/22/20222022 Obstructive sleep apnea syndrome 03/21/2022 02/24/2023 Overview (02/24/2023): ?? Has CPAP Chronic low back pain 03/12/2022 02/24/2023 Overview (02/24/2023): ?? Hydrocodone t.i.d as needed. ?? Compliant with [employer] agreement Pain of knee region 03/12/2022 02/24/2023 [...] Exam: [facility] [place] Lipid panel: 03/2022 WNL ASCVD: LDL < [...] Visit [facility] [address] [place] [phone] Danny Mahoney MD [address] [phone] Health Maintenance Due Date Last Done Comments [...] 04/22/2023, 03/27/2017, 12/31/2007 Insurance [place]ICAID [place] [address] ([id number]) [place] [address] ([id number]) Care Teams Mountain Bike Guide Relationship Specialty Start Date End Date [facility] 230 [place] [address] PCP - General 11/26/23
--- OUTSIDE RECORDS SUMMARY | 2024-05-19 09:39 | XMS_ITS | Encounter Summary ---
Author Organization [facility] Address [address] [place] [address] Phone Care Team Providers Care Splitting Machine Feeder Name Role Phone [facility] Primary Care Provider [phone] Encounter Details Date Type Department Care Team (Late Contact Info) Description 12/10/2021 Documentation Only [facility] [place], [address] [place] [address] Shaun Morales PA Social History [...] Visit [facility] [address] [place] [address] Danny Mahoney MD [address] [phone] documented as of this encounter Visit Diagnoses Not on filedocumented in this encounter Care Teams Splitting Machine Feeder Relationship Specialty Start Date End Date [place], [place] 230 [place], [place] [phone] PCP - General 11/26/23 documented as of this encounter
--- OUTSIDE RECORDS SUMMARY | 2024-05-19 09:39 | XMS_ITS | Encounter Summary ---
Author Organization [employer] Address [address] [facility] 7t [place] [address] Care Team Providers Care Booking Prizer Name Role Phone [place] [facility] Primary Care Provider [phone] Reason for Visit * Reason Onset Date Comments Med Refill 02/11/2023 Encounter Details Date Type Department Care Team ([facility] st Contact Info) Description 02/11/2023 Telephone [facility] MEDICINE 230 [place] [address] [facility] 230 [place] [address] Med Refill Social History Tobacco Use Types [...] from pt requesting med refill on; HYDROcodone-acetaminophen ([place]) 5-325 MG tablet documented in this encounter Plan of Treatment Upcoming Encounters Date Type Department Care Team (Late st Contact Info) Description 06/16/2024 10:30 AM EDT Medication Management [address] [address] 07/18/2024 9:30 AM EDT Clinical Support [address] [address] Tammie Diaz RN documented as of this encounter Visit Diagnoses Not on filedocumented in this encounter Additional Health Concerns Assessment Noted Time PHQ-9 Depression Total Score: 21 022 10:03 AM EST documented as of this encounter Care Teams Booking Prizer Relationship Specialty Start Date End Date Kelli Horton FNP [address] [place] [address] PCP - General Family Medicine 05/20/22 documented as of this encounter
--- OUTSIDE RECORDS SUMMARY | 2024-05-19 09:39 | XMS_ITS | Encounter Summary ---
Author Organization [facility] Address [address] [place] [address] Phone Care Team Providers Care Forder Operator Name Role Phone [facility] Primary Care Provider [phone] Encounter Details Date Type Department Care Team (Late Contact Info) Description 12/20/2021 Documentation Only [facility] [place], [address] [place] [address] Shaun Morales PA Social History [...] Visit [facility] [address] [place] [address] Danny Mahoney MD [address] [phone] documented as of this encounter Visit Diagnoses Not on filedocumented in this encounter Care Teams Forder Operator Relationship Specialty Start Date End Date [place], [place] 230 [place], [place] [phone] PCP - General 11/26/23 documented as of this encounter
--- OUTSIDE RECORDS SUMMARY | 2024-05-19 09:40 | XMS_ITS | Encounter Summary ---
Author Organization [employer] Address 75 [facility] 7t [place] [address] Care Team Providers Care Hvac Service Tech Name Role Phone Sol Kelli [facility] [facility] Primary Care Provider [phone] Encounter Details Date Type Department Care Team ([facility] st Contact Info) Description 05/13/2024 9:00 AM EST Office Visit [facility] 230 [place] [address] Rinku Chappell MD 230 [place] [address] Influenza A (Primary Dx); Moderate persistent asthma with acute [...] Sign Reading Time Taken Comments Blood Pressure 128/69 05/13/2024 8:49 AM EST Pulse 76 05/13/2024 8:49 AM EST Temperature 36.9 ??C (98.4 ??F) 05/13/2024 8:49 AM ES T Respiratory Rate 18 05/13/2024 8:49 AM EST Oxygen Saturation 98% 05/13/2024 8:49 AM EST Inhaled Oxygen Concentration - - Weight 88.3 kg (194 lb 9.6 oz) 05/13/2024 8:49 AM EST Height - - Body Mass Index 40.67 04/04/2024 11:22 AM EST documented in this encounter Progress Notes * Rinku Chappell MD - 05/13/2024 9:00 AM EST Subjective Patient ID: Ludivina Hussein is a 68 y.o. female. Print Washer: Chadd SANDOVAL Ludivina was seen at [facility] 05/05 with 2 day h/o JÚNIOR sx. Had + rapid Flu A test. CXR read as normal. States that no meds were prescribed. She came to [facility] today because of ongoing dry cough, wheezing, SOB at night. Had fever 1st days of sx, then resolved.. No n/v/d. Trelegy Ellipta, albuterol HFA 2x/day, albuterol via neb q hs, Singulair. Lives alone. Former smoker. Works. Patient Active Problem List Diagnosis Chronic low back pain Chronic pain of right knee Cirrhosis of liver (CMS/HCC) Moderate persistent asthma Lower urinary tract symptoms Benign essential hypertension Type 2 diabetes mellitus, without long-term current use of insulin (CMS/HCC) Depressive disorder Obstructive sleep apnea syndrome Varicose veins of both lower extremities RBBB Healthcare maintenance Acute conjunctivitis of right eye Gait instability The following portions of the chart were reviewed this encounter and updated as appropriate: Review of Systems Constitutional: Positive for fever. Respiratory: Positive for cough, shortness of breath and wheezing. Cardiovascular: Negative for chest pain. Gastrointestinal: Negative for abdominal pain. Skin: Negative for rash. Neurological: Negative for headaches. Objective Physical Exam Constitutional: Appearance: Normal appearance. HENT: Right Ear: Tympanic membrane, ear canal and external ear normal. Left Ear: Tympanic membrane, ear canal and external ear normal. Nose: Nose normal. Mouth/Throat: Mouth: Mucous membranes are moist. Pharynx: Oropharynx is clear. Eyes: Conjunctiva/sclera: Conjunctivae normal. Pupils: Pupils are equal, round, and reactive to light. Cardiovascular: Rate and Rhythm: Normal rate and regular rhythm. Heart sounds: No murmur heard. Pulmonary: Effort: Pulmonary effort is normal. Breath sounds: Rales (right lower lung field) present. Musculoskeletal: General: Normal range of motion. Cervical back: No tenderness. Skin: Findings: No rash. Neurological: Mental Status: She is alert. Gait: Gait is intact. Psychiatric: Mood and Affect: Mood normal. Behavior: Behavior normal. Procedures Assessment/Plan Diagnoses and all orders for this visit: Influenza A Had + rapid test at [facility]. Beyond window for Tamiflu. Lots of liquids, rest, Tylenol prn. Rtc if not improving. Moderate persistent asthma with acute exacerbation Refilled albuterol HFA and solution; advised may use albuterol q4h prn. Prescribed prednisone and Zithromax due to rales heard on exam. Rtc if not improving. - albuterol (Ventolin HFA) 108 (90 Base) MCG/ACT inhaler; Inhale 2 puffs every 4 (four) hours if needed for wheezing or shortness of breath. - albuterol (2.5 MG/3ML) 0.083% nebulizer solution; Take 3 mL (2.5 mg) by nebulization every 6 (six) hours if needed for wheezing. Other orders - predniSONE (Deltasone) 20 MG tablet; Take 2 tablets (40 mg) by mouth Once per day for 5 days. - azithromycin (Zithromax Z-Anselmo) 250 MG tablet; Take 2 tablets once on day 1, then 1 tablet 1x/day for 4 days. - Spacer/Aero-Holding Chambers (OptiChamber Amy) misc; 1 each every 4 (four) hours if needed (asthma). documented in this encounter Plan of Treatment Upcoming Encounters Date Type Department Care Team (Late st Contact Info) Description 06/16/2024 10:30 AM EDT Medication Management [address] [address] 07/18/2024 9:30 AM EDT Clinical Support [address] [address] Tammie Daiz RN documented as of this encounter Visit Diagnoses Diagnosis Influenza A- Primary Influenza with other respiratory manifestations Moderate persistent asthma with acute exacerbation documented in this encounter Additional Health Concerns Assessment Noted Time PHQ-9 Depression Total Score: 0 04/04/19 25 11:23 AM EST documented as of this encounter Care Teams Hvac Service Tech Relationship Specialty Start Date End Date Kelli Horton FNP [address] [place] [address] PCP - General Family Medicine 05/20/22 documented as of this encounter
--- OUTSIDE RECORDS SUMMARY | 2024-05-19 09:40 | XMS_ITS | Encounter Summary ---
Author Organization [employer] Address [address] [facility] 7t [place] [address] Care Team Providers Care Farm Product Purchaser Name Role Phone [place] [facility] Primary Care Provider [phone] Reason for Visit * Reason Onset Date Comments Med Refill 01/28/2024 Encounter Details Date Type Department Care Team ([facility] st Contact Info) Description 01/28/2024 Telephone [facility] MEDICINE 230 [place] [address] [facility] 230 [place] [address] Med Refill Social History Tobacco Use Types [...] Description 06/16/2024 10:30 AM EDT Medication Management [address] [address] 07/18/2024 9:30 AM EDT Clinical Support [address] [address] Tammie Diaz RN documented as of this encounter Visit Diagnoses Not on filedocumented in this encounter Additional Health Concerns Assessment Noted Time PHQ-9 Depression Total Score: 0 12/25/19 24 10:25 AM EDT documented as of this encounter Care Teams Farm Product Purchaser Relationship Specialty Start Date End Date Kelli Horton FNP [address] [place] [address] PCP - General Family Medicine 05/20/22 documented as of this encounter
--- OUTSIDE RECORDS SUMMARY | 2024-05-19 09:40 | XMS_ITS | Encounter Summary ---
Author Organization [employer] Address [address] [facility] 7t [place] [address] Care Team Providers Care Scientific Publications Editor Name Role Phone [place] [facility] Primary Care Provider [phone] Encounter Details Date Type Department Care Team (Late st Contact Info) Description 09/30/2022 Abstract [facility] MEDICINE [address] [place] [address] [place] [address] [address] Social History Tobacco Use Types Packs/Day Years [...] Description 06/16/2024 10:30 AM EDT Medication Management [address] [phone] 07/18/2024 9:30 AM EDT Clinical Support [address] [phone] Tammie Diaz RN documented as of this [...] documented as of this encounter Care Teams Scientific Publications Editor Relationship Specialty Start Date End Date Kelli Horton FNP [address] [place] [address] PCP - General Family Medicine 05/20/22 documented as of this encounter
--- OUTSIDE RECORDS SUMMARY | 2024-05-19 09:40 | XMS_ITS ---
Author Organization [facility] Address [address] [place] [address] Care Team Providers Care Stator Winder Name Role Phone [place] [facility] [place] Primary Care Provider Shivani kellogg Jason Lora Unavailable [phone] ALLERGIES No Known Allergies REASON FOR VISIT [...] point) Points 1 Interpretation Negative VITAL SIGNS Blood pressure systolic 00 mm Hg 02/25/20 24 Blood pressure diastolic 00 mm Hg 024 Height 58 in 02/25/2024 Weight 185 lbs 02/25/2024 BMI 38.66 kg/m2 02/25/2024 Encounters Encounter Location Date Provider Diagnosis [facility] [address] [place] [address] 02/25/2024 Jason Lora Other cirrhosis of liver [...] 09:20:00 AM, [address], [address], [place], [address], Progress Notes * Examination Category Sub-Category Detail [...]
--- OUTSIDE RECORDS SUMMARY | 2024-05-19 09:40 | XMS_ITS | Encounter Summary ---
Author Organization [employer] Address [address] [facility] 7t [place] [address] Care Team Providers Care Vocational Coordinator Name Role Phone Kelli Horton Primary Care Provider [phone] Reason for Referral * Hospital - Outpatient (Routine) - Authorized Specialty Diagnoses / Procedures Referred By Cruz murillo Referred To Contact Diagnoses Obstructive sleep apnea syndrome Procedures Polysomnography Kelli Horton FNP 230 [place] [address] Phone: tel: fax: [address] Phone: tel: fax: Referral ID Status Reason Start Date Expiration Date V isits Requested Visits Authorized [id number] Authorized 05/11/2024 05/11/2025 1 1 Encounter Details Date Type Department Care Team (Late st Contact Info) Description 05/11/2024 Orders Only [facility] [address] [place] [phone] Kelli Horton FNP 230 [place], [place] [phone] Obstructive sleep apnea syndrome (Primary Dx) Social History Tobacco Use Types [...] Description 06/16/2024 10:30 AM EDT Medication Management [facility] [address] [place] [address] 07/18/2024 9:30 AM EDT Clinical Support [facility] [address] [place] [address] Tammie Diaz RN Scheduled Orders Name Type Priority Associated Diagnoses Orde r Schedule Polysomnography [facility] Routine Obstructive sleep apnea syndrome Expected: 05/11/2024 (Approximate), Expires: 05/11/2025 documented as of this encounter Visit Diagnoses Diagnosis Obstructive sleep apnea syndrome- Primary Obstructive sleep apnea (adult) (pediatric) documented in this encounter Additional Health Concerns Assessment Noted Time PHQ-9 Depression Total Score: 0 04/04/19 25 11:23 AM EST documented as of this encounter Care Teams Vocational Coordinator Relationship Specialty Start Date End Date [place], ALYSSA [address] [place] [address] PCP - General Family Medicine 05/20/22 documented as of this encounter
--- OUTSIDE RECORDS SUMMARY | 2024-05-19 09:40 | XMS_ITS ---
Author Organization [facility] Address [address] [place] [address] Care Team Providers Care Hotshot Superintendent Name Role Phone [facility] [place] Primary Care Provider UnaJason Birmingham Unavailable [phone] REASON FOR VISIT r/f request ursodiol MEDICATIONS Medication SIG (Take, Route, Fr equency, Duration) Notes Start Date End Date Status Magdiel 250 250 MG 3 tablets Orally Twi ce a day for 30 days 11/28/2013 Active Encounters Encounter Location Date Provider Diagnosis [facility] [address] [place] [address] 05/12/2024 Jason Lora PLAN OF TREATMENT Medication Medication Name Sig Start Date Stop Date Notes Magdiel 250 250 MG 3 tablets Orally Twice a day for 30 days 0 11/28/2013 Next Appt Details Provider Name:Jason Lora , 02/23/2025 09:20:00 AM, [address], [address], [place], [address],
--- OUTSIDE RECORDS SUMMARY | 2024-05-19 09:40 | XMS_ITS | Encounter Summary ---
Author Organization [employer] Address 75 [facility] 7t [place] [address] Care Team Providers Care Textiles And Clothing Teacher Name Role Phone [place] [facility] Primary Care Provider [phone] Reason for Visit * Reason Onset Date Comments Med Refill 03/15/2024 Encounter Details Date Type Department Care Team ([facility] st Contact Info) Description 03/15/2024 Telephone [facility] MEDICINE 230 [place] [address] [facility] [address] [place] [address] Med Refill Social History Tobacco Use Types [...] medication refill. Medications needing refill : HYDROcodone-acetaminophen (Bypro) 5-325 MG tablet To be sent to: [facility] - [place], [place] - [address] [place] [address] documented in this encounter Plan of Treatment Upcoming Encounters Date Type Department Care Team (Late st Contact Info) Description 06/16/2024 10:30 AM EDT Medication Management [facility] MEDICINE [address] [place] [address] 07/18/2024 9:30 AM EDT Clinical Support [facility] [address] [place] [address] Tammie Diaz RN documented as of this encounter Visit Diagnoses Not on filedocumented in this encounter Additional Health Concerns Assessment Noted Time PHQ-9 Depression Total Score: 0 12/25/19 10:25 AM EDT documented as of this encounter Care Teams Textiles And Clothing Teacher Relationship Specialty Start Date End Date Kelli Horton FNP [address] [place] [address] PCP - General Family Medicine 05/20/22 documented as of this encounter
--- OUTSIDE RECORDS SUMMARY | 2024-05-19 09:40 | XMS_ITS | Encounter Summary ---
Author Organization [employer] Address 75 [facility] 7t [place] [address] Care Team Providers Care Open Hearth Stockyard Supervisor Name Role Phone Kelli Horton STRATEGIC BUYER Primary Care Provider [phone] Encounter Details Date Type Department Care Team [...] Description 06/16/2024 10:30 AM EDT Medication Management [address] [address] 07/18/2024 9:30 AM EDT Clinical Support [address] [address] Tammie Diaz RN documented as of this encounter Visit Diagnoses Not on filedocumented in this encounter Additional Health Concerns Assessment Noted Time PHQ-9 Depression Total Score: 0 04/04/19 25 11:23 AM EST documented as of this encounter Care Teams Open Hearth Stockyard Supervisor Relationship Specialty Start Date End Date Kelli Horton FNP [address] [place] [address] PCP - General Family Medicine 05/20/22 documented as of this encounter
--- OUTSIDE RECORDS SUMMARY | 2024-05-19 09:40 | XMS_ITS | Encounter Summary ---
Author Organization [employer] Address 75 [facility] 7t [place] [address] Care Team Providers Care Emerging Solutions Executive Name Role Phone [place] [facility] Primary Care Provider [phone] Reason for Visit * Reason Onset Date Comments Med Refill 05/12/2024 Encounter Details Date Type Department Care Team (Late st Contact Info) Description 05/12/2024 Refill [facility] 230 [place] [address] [facility] [address] [place] [address] Chronic low back pain, unspecified back pain [...] encounter Miscellaneous Notes * Telephone Encounter - Bernardo Cesar - 05/12/2024 9:11 AM EST TC from pt requesting medication refill. Medications needing refill : HYDROcodone-acetaminophen (Mutual) 5-325 MG tablet To be sent to: [facility] - [place], [place] - [address] [place] [address] documented in this encounter Plan of Treatment Upcoming Encounters Date Type Department Care Team (Late st Contact Info) Description 06/16/2024 10:30 AM EDT Medication Management [address] [address] 07/18/2024 9:30 AM EDT Clinical Support [address] [address] Tammie Diaz RN documented as of this encounter Visit Diagnoses Diagnosis Chronic low back pain, unspecified back pain laterality, unspecified whether sciatica present documented in this encounter Additional Health Concerns Assessment Noted Time PHQ-9 Depression Total Score: 0 04/04/19 25 11:23 AM EST documented as of this encounter Care Teams Emerging Solutions Executive Relationship Specialty Start Date End Date Kelli Horton FNP [address] [place] [address] PCP - General Family Medicine 05/20/22 documented as of this encounter
--- OUTSIDE RECORDS SUMMARY | 2024-05-19 09:40 | XMS_ITS | Encounter Summary ---
Author Organization [employer] Address [address] [place] [address] Care Team Providers Care Solar Energy Installation Manager Name Role Phone Kelli Horton RELEASE OF INFORMATION SPECIALIST Primary Care Provider [phone] Reason for Visit * Reason Comments SENIOR SALES DIRECTOR RV SENIOR SALES DIRECTOR RV Encounter Details Date Type Department Care Team (Latest Contact Info) Description 04/20/2024 9:30 AM EST Clinical Support [facility] MEDICINE [address] [place] [address] Tammie Diaz RN Chronic low back pain, [...] 9:30 AM EST S: Pt here for SENIOR SALES DIRECTOR Revisit, translation provided by chief medical physicist [employer]. Prescribed Hydrocodone/Acetaminophen 5mg/325mg Q12hr PRN. States [...] herknees, right shoulder and her legs. O: SENIOR SALES DIRECTOR Tier 2. Pt currently prescribed Hydrocodone/Acetaminophen 5mg/325mg Q12hr PRN. SLEEP MEDICINE PHYSICIAN verified today. Rx last filled on 03/21/24. Pill count performed. Pt has 22 pills at this time, 0 at least expected. Medication is not overused by patient.UTOX completed. Positive for MOP, Negative for AMP, BAR, BUP, BZO, RALPH, FTY, MDMA, MET, MTD, OXY, PCP, TCA, THC. UTOX as expected. Last PCP visit was 04/04/24. A: SENIOR SALES DIRECTOR Revisit: Chronic Opioid use related to pain. P: Pt to continue taking medication only as prescribed; Next SENIOR SALES DIRECTOR RV appointment scheduled for 07/18/24 @ 9:30a, F/U sooner PRN. Appointment reminder given. Pt verbalized understanding and agreed to plan. documented in this encounter Plan of Treatment Upcoming Encounters Date Type Department Care Team (Late st Contact Info) Description 06/16/2024 10:30 AM EDT Medication Management [place] [address] 07/18/2024 9:30 AM EDT Clinical Support [facility] [place] [address] Tammie Diaz, RN documented as of this [...] - 04/20/2024 9:13 AM EST UTOX cup Lot#[id number] Exp. 12/15/25 Internal Pass [facility] POINT OF CARE TEST ENTER/EDIT ORDERABLES Final Result documented in this encounter Visit Diagnoses Diagnosis Chronic low back pain, unspecified back pain laterality, unspecified whether sciatica present- Primary documented in this encounter Additional Health Concerns Assessment Noted Time PHQ-9 Depression Total Score: 0 04/04/19 25 11:23 AM EST documented as of this encounter Care Teams Solar Energy Installation Manager Relationship Specialty Start Date End Date [place] [address] PCP - General Family Medicine 05/20/22 documented as of this encounter
--- OUTSIDE RECORDS SUMMARY | 2024-05-19 09:40 | XMS_ITS | Clinical Summary ---
Author Organization [employer] Address [address] [place] [address] Care Team Providers Care Developmental Therapist Name Role Phone Kelli Horton SHEET METAL LAYOUT WORKER Primary Care Provider [phone] Allergies Active Allergy Reactions Criticality Noted Date Comments Morphine Sulfate Er Itching 09/01/2023 Medications amLODIPine (Norvasc) 2.5 MG tablet Take 2.5 mg by mouth at bedtime. 022 Active darifenacin (Enablex) 15 MG 24 hr tablet Take 1 tablet by mouth at bed time. Active lisinopril-hydr oCHLOROthiazide 10-12.5 MG tablet Take 1 tablet by mouth in the morning. 022 Active montelukast (Singulair) 10 MG tablet Active omeprazole (PriLOSEC) [address] capsule Active traZODone (Desyrel) 150 MG tablet Take 2 tablets by mouth at bedtime. Active clonazePAM (KlonoPIN) 0.5 MG tablet TAKE 1 TABLET BY MOUTH ONCE DAILY NEEDED 023 Active ursodiol (Actigall) 250 MG tablet 023 Active Acetaminophen Extra Strength 500 MG tablet Take 1 tablet (500 mg) by mouth every 6 (six) hours if needed for moderate pain, fever or headaches. 30 tablet 023 Active Narcan 4 MG/0.1ML nasal spray FOR SUSPECTED OPIOID OVERDOSE. SPRAY 0.1mL IN ONE NOSTRIL. REPEAT IN ALTERNATE NOSTRIL 2-3 MINUTES IF NEEDED. SEEK MEDICAL ATTENTION IMMEDIATELY EVEN IF PATIENT RESPONDS. 2 each 2 023 Active calcium carbonate (Calcium 600) 600 MG tablet Take 1 tablet (600 mg) by mouth in the morning. 90 tablet 3 024 2024 Active cholecalciferol (Vitamin D-3) 25 MCG (1000 UT) tablet Take 1 tablet (25 mcg) by mouth in the morning. 90 tablet 3 024 Active loratadine (Claritin) 10 MG tabletIndicatio ns:Moderate persistent asthma, unspecified whether complicated TAKE 1 TABLET BY MOUTH EVERY MORNING 90 tablet 3 024 Active atorvastatin (Lipitor) 20 MG tablet TAKE 1 TABLET BY MOUTH EVERY EVENING 90 tablet 3 024 Active estradiol (Estrace) 0.1 MG/GM vaginal creamIndication s:Vulvovaginal dryness Insert 0.5mg vaginally once daily for 1 week then decrease to 3 times per week 42.5 g 2 024 Active fluticasone (Flonase) 50 MCG/ACT nasal sprayIndication s:Moderate persistent asthma, unspecified whether complicated USE 1 SPRAY IN EACH NOSTRIL TWICE DAILY 16 g 5 024 Active vitamin E 180 MG (400 UNIT) capsule TAKE 1 CAPSULE BY MOUTH EVERY MORNING 90 capsule 3 024 Active glucose blood (FREESTYLE LITE) test stripIndication s:Type 2 diabetes mellitus with stage 3 chronic kidney disease, without long-term current use of insulin, unspecified whether stage 3a or 3b CKD ([facility]) test blood sugar twice daily 100 strip 2 024 Active Trelegy Ellipta 200-62.5-25 MCG/ACT aerosol powder Take 1 puff by mouth Once daily. 025 Active lidocaine-prilo dony (Emla) 2.5-2.5 % cream Apply 1 Application. topically Once daily. 025 Active traZODone (Desyrel) 100 MG tablet Take 1 tablet by mouth at bedtime. 025 Active HYDROcodone-patricia taminophen ([place]) 5-325 MG tabletIndicatio ns:Chronic low back pain, unspecified back pain laterality, unspecified whether sciatica present Take 1 tablet by mouth every 12 (twelve) hours if needed for severe pain for up to 28 days. 56 tablet 025 2024 Active azithromycin (Zithromax Z-Anselmo) 250 MG tablet Take 2 tablets once on day 1, then 1 tablet 1x/day for 4 days. 6 tablet Active albuterol (Ventolin HFA) 108 (90 Base) MCG/ACT inhalerIndicati ons:Moderate persistent asthma with acute exacerbation Inhale 2 puffs every 4 (four) hours if needed for wheezing or shortness of breath. 18 g 3 025 Active albuterol (2.5 MG/3ML) 0.083% nebulizer solutionIndicat ions:Moderate persistent asthma with acute exacerbation Take 3 mL (2.5 mg) by nebulization every 6 (six) hours if needed for wheezing. 75 mL 3 025 Active Spacer/Aero-Hol ding Chambers (OptiChamber Amy) misc 1 each every 4 (four) hours if needed (asthma). 1 each Active albuterol (2.5 MG/3ML) 0.083% nebulizer solution INHALE 1 AMPULE USING A NEBULIZER EVERY 4 TO 6 HOURS NEEDED SHORTNESS OF BREATH OR FOR WHEEZING 022 2024 Discontinued(R eorder (will not trigger notification to Pharmacy)) Calcium Carb-Cholecalci ferol 600-10 MG-MCG tablet Take 1 tablet by mouth every 12 (twelve) hours. 016 2024 Discontinued(M ed list cleanup (will not trigger notification to Pharmacy)) gabapentin (Neurontin) 300 MG capsule TAKE 1 CAPSULE BY MOUTH AT BEDTIME FOR PAIN 022 2024 Discontinued(M ed list cleanup (will not trigger notification to Pharmacy)) pneumococcal conjugate (Prevnar 13) vaccine Inject 0.5 mL into the shoulder, thigh, or buttocks. 016 2024 Discontinued(M ed list cleanup (will not trigger notification to Pharmacy)) polyethylene glycol, PEG, 3350 (MiraLax) 17 GM/SCOOP powder take (17G) by oral route every day mixed with 8 oz. water, juice, soda, coffee or tea 016 2024 Discontinued(M ed list cleanup (will not trigger notification to Pharmacy)) celecoxib (CeleBREX) 200 MG capsuleIndicati ons:Chronic low back pain, unspecified back pain laterality, unspecified whether sciatica present TAKE 1 CAPSULE BY MOUTH TWICE DAILY NEEDED FOR PAIN 60 capsule 2 024 2024 Discontinued(M ed list cleanup (will not trigger notification to Pharmacy)) Advair HFA 115-21 MCG/ACT inhalerIndicati ons:Moderate persistent asthma with acute exacerbation INHALE 2 PUFFS BY MOUTH TWICE DAILY IN THE MORNING AND IN THE EVENING RINSE MOUTH AFTER USING. 12 g 024 2024 Discontinued(M ed list cleanup (will not trigger notification to Pharmacy)) tiotropium (Spiriva Respimat) 1.25 MCG/ACT inhalerIndicati ons:Moderate persistent asthma, unspecified whether complicated INHALE 2 PUFFS BY MOUTH ONCE DAILY 4 g 3 024 2024 Discontinued(M ed list cleanup (will not trigger notification to Pharmacy)) albuterol (Ventolin HFA) 108 (90 Base) MCG/ACT inhalerIndicati ons:Moderate persistent asthma with acute exacerbation Inhale 2 puffs every 4 (four) hours if needed for wheezing or shortness of breath. 18 g 3 024 2024 Discontinued(R eorder (will not trigger notification to Pharmacy)) lidocaine (Lidoderm) 5 % patchIndication s:Right shoulder pain, unspecified chronicity Apply 1 patch topically Once per day. Remove & discard patch within 12 hours or as directed by MD. 30 patch 11 024 2024 Discontinued(M ed list cleanup (will not trigger notification to Pharmacy)) HYDROcodone-patricia taminophen ([place]) 5-325 MG tabletIndicatio ns:Chronic low back pain, unspecified back pain laterality, unspecified whether sciatica present TAKE 1 TABLET BY MOUTH EVERY TWELVE HOURS NEEDED FOR SEVERE PAIN 56 tablet 024 2024 Discontinued(R eorder (will not trigger notification to Pharmacy)) predniSONE (Deltasone) 20 MG tablet Take 2 tablets (40 mg) by mouth Once per day for 5 days. 10 tablet 025 2024 Active Problems Problem Noted Date Diagnosed Date Gait instability 05/05/2023 Acute conjunctivitis of right eye 03/05/2023 Healthcare maintenance 07/28/2022 Overview (05/05/2023): Mammo: 09/2022 Birads 1 Pap: S/P total hysterectomy for benign reason. Pt does not know if cervix remains. Will schedule follow up pelvic exam C-scope: Previously at [facility]. Date unknown. Will request records BMD: Routine age 67 Assessment & Plan (05/05/2023 8:28 PM EST): DEXA scan ordered RBBB 07/22/2022 Obstructive sleep apnea syndrome 03/21/2022 Overview (07/28/2022): ?? Has CPAP Chronic low back pain 03/12/2022 Overview (07/28/2022): ?? Hydrocodone t.i.d as needed. ?? Compliant with CERTIFIED OPHTHALMIC TECHNOLOGIST agreement Assessment & Plan (05/05/2023 8:15 PM EST): Continue hydrocodone as prescribed. Patient will bring tablets to pharmacy to determine if able to order prior formulation Declines chronic pain group at this time Follow as scheduled with CERTIFIED OPHTHALMIC TECHNOLOGIST Chronic pain of right knee 03/12/2022 Overview (07/28/2022): ?? Referred to PT for balance training 06/2022 Type 2 diabetes mellitus, [facility] long-term current use of insulin 10/01/2020 Overview (04/04/2024): Metformin monotherapy CKD stage 3 followed by nephrology Foot Exam: 03/2024 risk 0 Eye Exam: Followed by [facility] in [place] Statin: Yes ASA: No PATRICIA/ARB: Yes Encouraged [...] Overview (04/04/2024): Followed by DR. Lora at [facility] GI Hepatic steatosis, hx of chronic HCV Lower urinary tract symptoms 07/09/2017 Moderate persistent asthma 02/14/2015 Overview (07/28/2022): ?? Followed by pulmonology ?? Singulair, spiriva, advair, albuterol Assessment & Plan (07/28/2022 9:18 AM EDT): ?? Loratadine refill provided today ?? Follow up as scheduled with pulmonology ?? Contact HC if sx worsen. ED precautions reviewed Benign essential hypertension 02/14/2015 Overview (05/05/2023): Lisinopril-hydrochlorothiazide 12.5mg Amlodipine 2.5mg RBBB on EKG Normal stress [...] Problem Noted Date Diagnosed Date Resolved Date Kathleen eye disease of right eye 03/05/2023 03/05/2023 Assessment & Plan (03/05/2023 10:51 AM EST): Given antibiotic cream for 5 days Arthritis of left knee 03/21/202207/24 Arthritis of right knee 03/21/2022 05/0 06/2022 Atrophic gastritis 10/14/2021 Asthma 04/15/2021 07/24/2022 Chronic kidney disease, stage 2 (mild) 04/15/2021 07/22/2022 Urinary incontinence 04/15/2021 023 Renal stone 07/14/2019 07/24/2022 CKD (chronic kidney disease), stage III 07/17/2017 07/22/2022 Fatty liver 07/15/2017 07/24/2022 Knee pain 02/14/2015 07/24/2022 Obesity 02/14/2015 07/24/2022 Increased frequency of urination 02/14/2015 07/24/2022 Type 2 diabetes mellitus 02/14/201506/2022 Chronic kidney disease 09/18/201107/22 Encounters Date Type Department Care Team Description 05/13/2024 9:00 AM EST Office Visit [facility] [address] [place] [phone] Rinku Chappell MD Influenza A (Primary Dx); Moderate persistent asthma with acute exacerbation 05/12/2024 Refill [facility] [address] [place] [address] [place] [facility] Chronic low back pain, unspecified back pain laterality, unspecified whether sciatica present 05/11/2024 Orders Only [facility] [address] [facility] [place] [address] [place] [facility] Obstructive sleep apnea syndrome (Primary Dx) 05/05/2024 Orders Only GENERIC EXTERNAL DATA DEPARTMENT Provider, Generic External Data 04/25/2024 10:00 AM EST Telemedicine [facility] [address] [facility] [place] [address] Sada Johnston PharmD Benign essential hypertension (Primary Dx); Moderate persistent asthma with acute exacerbation 04/20/2024 9:30 AM EST Clinical Support [facility] [place] [address] Tammie Diaz, technical inspector low back pain, unspecified back pain laterality, unspecified whether sciatica present (Primary Dx) 04/20/2024 Travel 04/20/[address] [address] Tammie Diaz, RN Recommend CERTIFIED OPHTHALMIC TECHNOLOGIST Tier 2 04/13/2024 Orders Only [facility] External Provider, [facility] 04/04/2024 11:15 AM EST Office Visit [facility] [place] [address] [place]elli [facility] Type 2 diabetes mellitus with stage 3 chronic kidney disease, without long-term current use of insulin, unspecified whether stage 3a or 3b CKD (CMS/HCC) (Primary Dx); Left carpal tunnel syndrome; Oropharyngeal dysphagia; Obstructive sleep apnea syndrome 04/04/2024 Telephone [facility] [address] [place] [address] [place] [facility] 04/04/2024 Travel 03/29/2024 Telephone [facility] [place] [address] [place] [facility] Results 03/15/[address] [address] [place] [facility] Med Refill 03/15/2024 Refill [facility] [address] [place] [address] [place] ren [facility] Chronic low back pain, unspecified back pain laterality, unspecified whether sciatica present 03/07/2024 Telephone [facility] [address] [place], [place] [phone] Tammie Diaz, LADONNA telephone call 03/04/2024 Refill [facility] [address] [place], [place] [phone] [place] [facility] Type 2 diabetes mellitus with stage 3 chronic kidney disease, without long-term current use of insulin, unspecified whether stage 3a or 3b CKD (CMS/HCC) 03/04/2024 Refill [facility] [address] [place], [place] [phone] [place] ren [facility] Type 2 diabetes mellitus with stage 3 chronic kidney disease, without long-term current use of insulin, unspecified whether stage 3a or 3b CKD (CMS/HCC) from Last 3 Months Immunizations Name Administration [...] kg (194 lb 9.6 oz) 05/13/2024 8:49 A M EST Height 147.3 cm (4' 10 ) 04/04/2024 11:22 AM EST Body Mass Index 40.67 04/04/2024 11:22 AM EST Plan of Treatment Upcoming Encounters Date Type Department Care Team (Late st Contact Info) Description 06/16/2024 10:30 AM EDT Medication Management [facility] [address] [place] [phone] 07/18/2024 9:30 AM EDT Clinical Support [address] [address] Tammie Diaz, RN Health Maintenance Due Date Last Done Comments CT Colonography 1955 FIT DNA/Cologuard 1957 FIT 1957 FOBT 1955 Sigmoidoscopy 1957 Alcohol/Substance Use Screening 1969 Lipid Panel 05/04/2024 05/04/2023, 05/2022, 07/01/2021, Additional history exists Mammogram 06/15/2024 06/16/2023, 04/2022, 04/15/2021, Additional history exists Diabetes: Hemoglobin A1C 07/03/2024 025, 12/25/2023, 07/22/2023, Additional history exists SDOH Screening 07/21/2024 07/22/2023 Eye Exam 03/23/2025 03/23/2023 Depression Screening 04/04/2025 04/04/2024, 04/04/19 25 Diabetes: Foot Exam 04/04/2025 04/04/2024, 04/04/2024, 04/04/2024, Additional history exists Tobacco Screening 05/13/2025 05/13/2024 Colonoscopy 05/03/2028 05/03/2018 Colorectal Cancer Screening 05/03/2028 [...] Procedure Name Priority Date/Time Associated Diagnosis Comments COMPREHENSIVE METABOLIC PANEL Routine 05/05/2024 12:33 PM EST CBC WITH AUTO DIFFERENTIAL Routine 05/05/2024 12:33 PM EST SARS COV2/INFLUENZA A/B AND RSV RNA QL NAAT Routine 05/05/2024 12:33 PM EST XR CHEST 2 VIEWS Routine 05/05/2024 12:2 3 PM EST POCT ANDRE-14 URINE DRUG SCREEN Routine 04/20/2024 [...] whether stage 3a or 3b CKD (CMS/HCC) BI MAMMOGRAM SCREENING TOMOSYNTHESIS BILATERAL Routine 06/16/2023 [...] Relevant to Health Maintenance Results * (ABNORMAL) SARS-CoV-2 RNA, Influenza A/B, and RSV RNA, Ql NAAT (05/05/2024 12:33 PM EST) Influenza A PCR POSITIVE(A) Negative [facility] Influenza B PCR NEGATIVE Negative [facility] Resp Syncy Virus RNA Qual PCR NEGATIVE Negative [facility] SARS COV2 PCR NEGATIVE Negative [facility] Comment:All test results mus t be [...] use by authorized laboratories.Testing performed on the Cepheid GeneXpert utilizingreal-time RT-PCR.All SARS CoV2 and positive influenza A/B results arereported to [facility]. 05/05/2024 12:3 3 PM EST 05/05/2024 12:43 PM EST us Generic External Data Provider LAB MICROBIOLOGY - GENERAL ORDERABLES Final Result [facility] [address] [place] [address] [phone] * (ABNORMAL) CBC auto differential (05/05/2024 12:33 PM EST) White Blood Count 5.2 4.8 - 10.8 X10*3/uL [facility] Red Blood Count 4.03(L) 4.20 - 5.50 X10*6/uL [facility] Hemoglobin 12.5 12.0 - 16.0 g/dl [facility] Hematocrit 35.5(L) 37.0 - 47.0 % [facility] Mean Corpuscular Volume 88.1 80.0 - 98.0 fL [facility] Mean Corpuscular Hemoglobin 31.0 27.0 - 33.0 pg [facility] Mean Corpuscular HGB Conc 35.2(H) 31.0 - 35.0 g/dl [facility] Red Cell Distribution Width 11.9 11.0 - 16.0 % [facility] Platelet Count 218 160 - 400 X10*3/uL [facility] Mean Platelet Volume 8.7(L) 9.4 - 12.3 fL [facility] Neutrophils Percent Auto 63.0 45 - 73 % [facility] Imm Gran Pct Auto 0.2 0.0 - 0.4 % [facility] Lymphocytes Percent Auto 18.8(L) 20 - 40 % [facility] Monocytes Percent Auto 16.1(H) 2 - 11 % [facility] Eosinophils Percent Auto 1.7 0 - 4 % [facility] Basophils Percent Auto 0.2 0 - 2 % [facility] NRBC Pct Auto 0.0 0.0 - 0.2 /100WBC [facility] Neutrophils Absolute Auto 3.3 2.0 - 8.3 x10*3/uL [facility] Imm Gran Abs Auto 0.01 0.00 - 0.03 X10*3/uL [facility] Lymphocytes Absolute Auto 1.0(L) 1.2 - 4.9 X10*3/uL [facility] Monocytes Absolute Auto 0.8 0.1 - 1.2 X10*3/uL [facility] Eosinophils Absolute Auto 0.1 0.0 - 0.4 X10*3/uL [facility] Basophils Absolute Auto 0.0 0.0 - 0.2 X10*3/uL [facility] NRBC Abs Auto 0.000 0.0 - 0.012 X10*3/uL [facility] 05/05/2024 12:3 3 PM EST 05/05/2024 12:43 PM EST us Generic External Data Provider LAB BLOOD ORDERAB LES Final Result [facility] [address] [place] [phone] * (ABNORMAL) Comprehensive Metabolic Panel (05/05/2024 12:33 PM EST) Sodium 134(L) 135 - 145 mmol/L [facility] Potassium 3.4 3.3 - 5.1 mmol/L [facility] Chloride 99 96 - 108 mmol/L [facility] Carbon Dioxide 25 22 - 29 mmol/L [facility] Anion Gap 13 12 - 20 [facility] Urea Nitrogen (BUN) 16 9 - 16 mg/dL [facility] Creatinine, Serum 0.89 0.5 - 1.4 mg/dL [facility] Creatinine Clr Calc Pharmacy 57.0 [facility] Comment:Provided height and weight: 147.32 cm,84 kg.eGFR (calculated from the MDRD study equation) and eCrCl(calculated from the Cockcroft-Gault equation) are based ondifferent parameters and may not yield comparable results.If eCrCl result is absurd, please check patient'sheight/weight. Estimated Glomerular Filt Rate >60 [facility] Comment:Chronic Kidney Disea se: Estimated GFR < 60 mL/min/1.57w3Rvzobh Kidney Disease: Estimated GFR < 15 mL/min/1.73m2 Glucose 136(H) 60 - 115 mg/dL [facility] Calcium 9.1 8.4 - 10.2 mg/dL [facility] Bilirubin, Total 0.4 0.0 - 1.0 mg/dL [facility] Aspartate Amino Transferase 35(H) 5 - 31 U/L [facility] Alanine Aminotransferase 44(H) 0 - 31 U/L [facility] Total Protein 7.4 6.5 - 8.0 g/dL [facility] Albumin Level 3.8 3.5 - 5.0 g/dL [facility] Alkaline Phosphatase 85 39 - 117 U/L [facility] 05/05/2024 12:3 3 PM EST 05/05/2024 12:43 PM EST us Generic External Data Provider LAB BLOOD ORDERAB LES Final Result Performing Organization Address [facility]State/[facility] Co de Phone Number [facility] [address] [place] [address] [phone] * XR Chest 2 Views (05/05/2024 12:23 PM EST) Anatomical Region Laterality Modality Chest Radiographic Lia ging 05/05/2024 12:2 3 PM EST Narrative 05/05/2024 1:10 PM EST ? [facility] ?[address] ?[place] [address] ?XRay Report ? Signed ? Patient: Keenan,Ludivina N ?MR#: [id number] ? : 1955 ?Acct:[id number] ? Age/Sex: 68 / F ?ADM Date: 02/13/25 ? Loc: HO.ED ? Attending Dr: ? Ordering Physician: Casandra Kumar NP ?? Date of Service: 05/05/24 ?? Procedure(s): XR chest 2V ?? Accession Number(s): [id number] ? cc: Casandra Kumar NP; [facility] SHEET METAL LAYOUT WORKER ? EXAMINATION: ?? XR CHEST ? CLINICAL INFORMATION: ?? cough and fever ? COMPARISON: ?? None available. ? TECHNIQUE: ?? 2 views of the chest were obtained. ? FINDINGS: ?? The cardiac, hilar, and mediastinal contours are normal. ?? Atherosclerotic aortic calcification. ? The lungs are clear bilaterally. There is no pneumothorax or pleural ?? effusion. ? There is no focal osseous or soft tissue abnormality. There are ?? surgical anchors in the right humeral head. There are mild degenerative ?? spinal changes. ? XR/XR chest 2V ?? IMPRESSION: ?? No active pulmonary disease. ? Electronically signed by: ??Gabino Monson MD ??05/05/2024 01:08 PM EST RP ? Dictated By: ?Gabino Monson MD ? Signed By: ?<Electronically signed by Gabino Monson MD in OV> ?05/05/24 1308 ? DD/ 1223 ? TD/TT: 05/05/24 1301 ? [employer]: ? Procedure Note Shekhar Salazar - 05/05/2024 [place] [address] XRay Report Signed Patient: Ludivina Hussein [facility] [id number] : 8Acct:[id number] Age/Sex: 68 / FADM Date: 05/05/24 Loc: HO.ED Attending Dr: Ordering Physician: Casandra Kumar NP Date of Service: 05/05/24 Procedure(s): XR chest 2V Accession Number(s): [id number] cc: Casandra Kumar NP; [facility] EXAMINATION: XR CHEST CLINICAL INFORMATION: cough and fever COMPARISON: None available. TECHNIQUE: 2 views of the chest were obtained. FINDINGS: The cardiac, hilar, and mediastinal contours are normal. Atherosclerotic aortic calcification. The lungs are clear bilaterally. There is no pneumothorax or pleural effusion. There is no focal osseous or soft tissue abnormality. There are surgical anchors in the right humeral head. There are mild degenerative spinal changes. XR/XR chest 2V IMPRESSION: No active pulmonary disease. Electronically signed by: Gabino Monson MD 05/05/2024 01:08 PM EST RP Dictated By: Gabino Monson MD Signed By: <Electronically signed by Gabino Monson MD in OV> 05/05/24 1308 DD/ 1223 TD/TT: 05/05/24 1301 [employer]: [facility] External Provider IMG XR PROCEDURES Edited Result - Final * POCT ANDRE-14 Urine Drug Screen (04/20/2024 9:13 AM EST) Opiate Screen, Urine Positive Urine Urine specimen obtained by clean catch procedure / Unknown 04/20/2024 9:13 AM EST Narrative Tammie Diaz RN - 04/20/2024 9:13 AM EST UTOX cup Lot#[id number] Exp. 12/15/25 Internal Pass Control [facility] SHEET METAL LAYOUT WORKER POINT OF CARE TEST ENTER/EDIT ORDERABLES Final Result * US Abdomen Comp w elastography (04/13/2024 10:01 AM EST) Anatomical Region Laterality Modality Abdomen Ultrasound 04/13/2024 10:0 1 AM EST Narrative 04/14/2024 7:45 AM EST ? [facility] ?[address] ?[place] [address] ? Ultrasound Report ? Signed ? Patient: Keenan,Ludivina Cox ?MR#: [id number] ? : 1955 ?Acct:[id number] ? Age/Sex: 68 / F ?ADM Date: 01/22/25 ? Loc: HO.US ? Attending Dr: Jason Lora MD ? Ordering Physician: Jason Lora MD ?? Date of Service: 04/13/24 ?? Procedure(s): US abdomen comp w elastography ?? Accession Number(s): [id number] ? cc: Jason Lora MD; [facility] ? EXAMINATION: ??US ABDOMEN COMPLETE WITH LIVER [...] DD/ 1001 ? TD/TT: 04/13/24 1033 ? [employer]: ? Procedure Note Donguillermoter, Image - 04/14/2024 [place] [address] Ultrasound Report Signed Patient: Ludivina Hussein [facility]#: [id number] : 8Acct:[id number] Age/Sex: 68 / FADM Date: 04/13/24 Loc: HO.US Attending Dr: Jason Lora MD Ordering Physician: Jason Lora MD Date of Service: 04/13/24 Procedure(s): US abdomen comp w elastography Accession Number(s): [id number] cc: Jason Lora MD; [facility] EXAMINATION: US ABDOMEN COMPLETE WITH [...] Jason Lombardi MD 04/14/2024 07:42 AM EST RP Dictated By: Jason Lombardi MD Signed By: <Electronically signed by Jason Lombardi MD in OV> 04/14/24 0742 DD/ 1001 TD/TT: 04/13/24 1033 Farmworker Fruit: [facility] External Provider IMG US PROCEDURES Final Result * (ABNORMAL) POCT HGB A1C (04/04/2024 11:24 AM EST) Hemoglobin A1C 6.2(A) 4.0 - 6.0 % QC Media Lot # [id number] Lot# Expiration Date , Blood 04/04/2024 11:2 4 AM EST [facility] SHEET METAL LAYOUT WORKER POINT OF CARE TEST ENTER/EDIT ORDERABLES Final Result * POCT Glucose (04/04/2024 11:24 AM EST) Glucose Blood, POC 116 60 - 200 mg/dL QC Media Lot # [id number] Lot# Expiration Date ,025 Blood Capillary blood specimen / Unknown 04/04/2024 11:24 AM EST [facility] SHEET METAL LAYOUT WORKER POINT OF CARE TEST ENTER/EDIT ORDERABLES Final Result * BI Mammogram Screening Tomosynthesis Bilateral (06/16/2023 10:15 AM EDT) Anatomical Region Laterality Modality Breast Bilateral Mammography 06/16/2023 10:1 5 AM EDT Narrative 07/02/2023 6:24 AM EDT ? [facility] [place] ? [address] ?[place] [address] ? Mammography Report ? Signed ? Patient: Ludivina Hussein ?MR#: [id number] ? : 1955 ?Acct:[id number] ? Age/Sex: 67 / F ?ADM Date: 06/16/23 ? Loc: HO.MAMMO ? Attending Dr: Kelli Sol SHEET METAL LAYOUT WORKER ? Ordering Physician: Sol,Kelli SHEET METAL LAYOUT WORKER ?Results: 1Nega ?? tive ? Date of Service: 06/16/23 ?Follow Up: 1 Year From Orig ?? inal Mammogram ? Procedure(s): MM tomosynthesis screening BI ?? Accession Number(s): [id number] ? cc: Sol,Kelli SHEET METAL LAYOUT WORKER ? EXAMINATION: ?? MM SCREENING DIGITAL BREAST TOMOSYNTHESIS, BILATERAL ? CLINICAL INFORMATION: ? Screening. Asymptomatic. ? COMPARISON: ?? Mammography: This study is compared with prior exams dating back to ?? 2018. ? TECHNIQUE: ?? Digital breast tomosynthesis is [...] by July Giles MD in OV> ? 07/02/23619 ? DD/ 1015 ? TD/TT: ? Farmworker Fruit: ? Procedure Note Shekhar Salazar - 07/02/2023 [facility] [address] [place] [address] Mammography Report Signed Patient: Ludivina Hussein [facility]#: [id number] : 8Acct:[id number] Age/Sex: 67 / FADM Date: 06/16/23 Loc: HO.MAMMO Attending Dr: Kelli Horton SHEET METAL LAYOUT WORKER Ordering Physician: Kelli Horton FNPResults: 1Nega tive Date of Service: 06/16/23Follow Up: 1 Year From Orig inal Mammogram Procedure(s): MM tomosynthesis screening BI Accession Number(s): [id number] cc: Kelli Horton SHEET METAL LAYOUT WORKER EXAMINATION: MM SCREENING DIGITAL BREAST TOMOSYNTHESIS, BILATERAL [...] in OV> 07/02/23 0620 DD/ 1015 TD/TT: Farmworker Fruit: [facility] SHEET METAL LAYOUT WORKER IMG BI PROCEDURES Final Resul t * Lipid Panel, Standard (05/04/2023 8:32 AM EST) Triglycerides 118 <150 mg/dL [facility] Comment:Desirable Triglyceri de: less than 150 mg/dLBorderline High Triglyceride 150-199 mg/dLHigh Triglyceride: 200-499 mg/dLVery High Triglyceride: greater than or equal to 5OO mg/dL Cholesterol 128 <200 mg/dL [facility] Comment:Desirable Cholestero l: less than 200 mg/dLBorderline High Cholesterol: 200-239 mg/dLHigh Cholesterol: greater than 239 mg/dL LDL Cholesterol Calculated 59 <100 mg/dL [facility] Comment:Desirable LDL: less than 100 mg/dLNear Optimal/Above Optimal LDL: 110- 129 mg/dLBorderline High LDL: 130-159 mg/dLHigh LDL: 160-189 mg/dLVery High LDL: greater than or equal to 190 mg/dL HDL Cholesterol 46 >40 mg/dL [facility] Comment:Desirable HDL: great er than 40 mg/dL Note: This HDL assay may give artificially low results in patients with liver disease. Blood Venous blood specimen / Unknown 05/04/2023 8:32 AM EST 05/04/2023 11:34 AM EST [facility] SHEET METAL LAYOUT WORKER LAB BLOOD ORDERABLES Final Re sult [facility] [address] [place] [address] [phone] * Hm Colonoscopy (05/03/2018) Colonoscopy Normal Normal Narrative Madeleine Valle - 05/03/2018 Repeat in 10 years Historical Provider MD HEALTH MAINTENANCE Final Result * HPV mRNA E6/E7 (03/03/2016 11:45 AM EST) HPV mRNA E6/E7 Not Detected NOT DETECTED [facility] Comment: This test was performed using the APTIMA(R) HPV Assay ([employer] This assay detects E6/E7 viral messenger RNA (mRNA) from 14 high-risk HPV types (16,18,31,33,35,39,45,51, 52,56,58,59,66,68). For additional information please refer to: http://education.Rivalry/faq/VMO668e1 (This link is being provided for informational/ educational purposes only.) Test Performed by [employer] [place], Ludi [facility], [address] [place] [address] Leonardo Cano M.D., Ph.D., Director of Laboratories , [facility] [id number] Please note: ??Effective 12/03/2015, HPV testing will be performed using [employer]'s APTIMA test which targets mRNA. Detecting mRNA instead of DNA, as in older methods, offers significant improvements in specificity. 03/03/2016 11:4 5 AM EST Nandini Biswas NP HISTORICAL/NON ORDERABLE LABS Fi nal Result [facility] [address] from Last 3 Months or Most Recently Relevant to Health Maintenance Insurance [facility] Care Teams Developmental Therapist Relationship Specialty Start Date End Date Kelli Horton FNP [address] [place] [address] PCP - General Family Medicine 05/20/22
--- OUTSIDE RECORDS SUMMARY | 2024-05-19 09:40 | XMS_ITS | Encounter Summary ---
Author Organization [employer] Address [address] [facility] 7t [place] [address] Care Team Providers Care Professor Of Literature Name Role Phone [facility] Primary Care Provider [phone] Reason for Visit * Reason Comments Med Refill Encounter Details Date Type Department Care Team (Late st Contact Info) Description 12/17/2023 Refill [facility] [address] [place] [address] [facility] [address] [place] [address] Chronic low back pain, unspecified back pain [...] Description 06/16/2024 10:30 AM EDT Medication Management [address] [address] 07/18/2024 9:30 AM EDT Clinical Support [address] [address] Tammie Diaz RN documented as of this encounter Visit Diagnoses Diagnosis Chronic low back pain, unspecified back pain laterality, unspecified whether sciatica present documented in this encounter Additional Health Concerns Assessment Noted Time PHQ-9 Depression Total Score: 0 07/22/19 24 9:10 AM EDT documented as of this encounter Care Teams Professor Of Literature Relationship Specialty Start Date End Date Kelli Horton FNP [address] [place] [address] PCP - General Family Medicine 05/20/22 documented as of this encounter
--- OUTSIDE RECORDS SUMMARY | 2024-05-19 09:40 | XMS_ITS | Encounter Summary ---
Author Organization [employer] Address [address] [facility] 7t [place] [address] Care Team Providers Care Escalator Constructor Name Role Phone Sol Kelli BEAN ROASTER Primary Care Provider [phone] Encounter Details Date Type Department Care Team ([facility] st Contact Info) Description 04/25/2024 10:00 AM EST Telemedicine [facility] MEDICINE [address] [place] [address] Sada Johnston, PharmD [address] [place] [address] Benign essential hypertension (Primary Dx); Moderate persistent [...] allergic to morphine sulfate er. Preferred Pharmacy: [facility] - [place], [place] - [address] [place] [address] 230 [facility] [phone] [id number] - [place], [place] - [address] [facility] [address] [facility] [address] Medbox: Yes, last medbox on 03/21/24 . Assessment & Plan Adherence: History: Medication Reconciliation: Reports use of the following medications that are not currently active in [facility] medlist: Trelegy 200-62.5-25 mcg/act 1 puff once daily (prescribed by Dr. Chaparro Jeffers - LF 03/29/24) Trazodone 100 mg once daily (prescribed by Dr. Salamanca - filled in Medbox) Lidocaine-prilocaine cream (LF 03/21/2024) Denies use of the following medications that are active in [facility] medlist: Spiriva respimat inhaler (switched to Trelegy) Advair HFA inhaler (switched to Trelegy) Calcium carbonate-cholecalciferol (patient actively fills prescription for individual agents, rather than the combination tablet) Celecoxib (LF 05/13/23, acute) Gabapentin (LF 06/2021) Lidocaine patches (no dispense hx) Polyethylene glycol powder (no dispense hx) OTC medication, vitamin, supplement use: denies Adherence: Medication Organization: Uses medboxes from [facility] pharmacy Missed doses: Reports missing 1-2 doses/week [...] of medications with dinnertime) Read/Write: Yes, in [place] Goals of therapy: Improve adherence & minimize missed doses (<2 missed doses/week) Recommendations/Monitoring: Since patient receives monthly medboxes, please contact medbox pharmacist with any medication changes (initiations, discontinuation, dose adjustments) Pharmacy updated medlist in [facility] to match patient's current medication use. [...] 4-6 hours as needed History: Follows with [facility] pulmonology (Dr. Jeffers - last visit 03/28/24): [...] as directed. Pharmacist relayed to patient that needle punch operator's plan is to initiate Trelegy ellipta in [...] the CDC Adult Immunization Schedule. Assessment/Plan: Influenza 6244-9119 vaccine: Up-to-date . Next dose due annually. COVID-19 5382-2412 vaccine: Up-to-date . Next dose due annually. [...] Description 06/16/2024 10:30 AM EDT Medication Management [address] [address] 07/18/2024 9:30 AM EDT Clinical Support [address] [address] Tammie Diaz RN Scheduled Orders Name Type [...] documented as of this encounter Care Teams Escalator Constructor Relationship Specialty Start Date End Date Kelli Horton FNP [address] [place] [address] PCP - General Family Medicine 05/20/22 documented as of this encounter
--- OUTSIDE RECORDS SUMMARY | 2024-05-19 09:40 | XMS_ITS | Encounter Summary ---
Author Organization [employer] Address [address] [place] [address] 7t [place] [address] Care Team Providers Care Mine Equipment Design Engineer Name Role Phone Beatriz Ford [facility] Primary Care Provider Kelli Henning [facility] Primary Care Provider [phone] Encounter Details Date Type Department Care Team ([facility] Contact Info) Description 03/20/[address] [address] Beatriz Ford FNP Social History Tobacco Use [...] Department Care Team (Late Contact Info) Description 06/16/2024 10:30 AM EDT Medication Management [address] [phone] 07/18/2024 9:30 AM EDT Clinical Support [address] [phone] Emily, Tammie, RN documented as of this encounter Visit Diagnoses Not on filedocumented in this encounter Care Teams Mine Equipment Design Engineer Relationship Specialty Start Date End Date Beatriz Ford FNP PCP - General Family Medicine 02/21/22 05/19/22 SolKelli ren FNP [address] [place] [address] PCP - General Family Medicine 05/20/22 documented as of this encounter
--- OUTSIDE RECORDS SUMMARY | 2024-05-19 09:40 | XMS_ITS | Encounter Summary ---
Author Organization [employer] Address [address] [facility] 7t [place] [address] Care Team Providers Care Cartography/Mapping Technician Name Role Phone Kelli Horton SOCIAL WORK ASSISTANT Primary Care Provider [phone] Reason for Visit * Reason Onset Date Comments Recommend AFTER SCHOOL PROGRAM DIRECTOR Tier 2 04/20/2024 Encounter Details Date Type Department Care Team ([facility] st Contact Info) Description 04/20/2024 Telephone [facility] MEDICINE [address] [place] [address] Tammie Diaz, LADONNA Recommend AFTER SCHOOL PROGRAM DIRECTOR Tier 2 Social History Tobacco Use Types [...] RN - 04/20/2024 7:34 AM EST What AFTER SCHOOL PROGRAM DIRECTOR Tier would you like this patient to be? I recommend Tier 2, please let me know if you agree or would rather patient be in another AFTER SCHOOL PROGRAM DIRECTOR Tier. Tier 1 = HIGH RISK, Monthly AFTER SCHOOL PROGRAM DIRECTOR visits Tier 2 = MODerate RISK, Q3 Month visits Tier 3 = LOW RISK = Q4-6 month visits documented in this encounter Plan of Treatment Upcoming Encounters Date Type Department Care Team (Late st Contact Info) Description 06/16/2024 10:30 AM EDT Medication Management [address] [address] 07/18/2024 9:30 AM EDT Clinical Support [address] [address] Tammie Diaz, RN documented as of this encounter Visit Diagnoses Not on filedocumented in this encounter Additional Health Concerns Assessment Noted Time PHQ-9 Depression Total Score: 0 04/04/19 25 11:23 AM EST documented as of this encounter Care Teams Cartography/Mapping Technician Relationship Specialty Start Date End Date Kelli Horton FNP [address] [place] [address] PCP - General Family Medicine 05/20/22 documented as of this encounter
--- OUTSIDE RECORDS SUMMARY | 2024-05-19 09:40 | XMS_ITS | Encounter Summary ---
Author Organization [employer] Address [address] [facility] 7t [place] [address] Care Team Providers Care Marker Delivery Name Role Phone Kelli Horton BOATWRIGHT Primary Care Provider [phone] Encounter Details Date Type Department Care Team (Late st Contact Info) Description 05/05/2024 Orders Only GENERIC EXTERNAL DATA DEPARTMENT Provider, Generic External Data Social History Tobacco Use Types Packs/Day Years [...] Description 06/16/2024 10:30 AM EDT Medication Management [facility] [address] [place] [address] 07/18/2024 9:30 AM EDT Clinical Support [facility] [address] [place] [address] Tammie Diaz RN documented as of this encounter Procedures Procedure Name Priority Date/Time Associated Diagnosis Comments SARS COV2/INFLUENZA A/B AND RSV RNA QL NAAT Routine 05/05/2024 12:33 PM EST CBC WITH AUTO DIFFERENTIAL Routine 05/05/2024 12:33 PM EST COMPREHENSIVE METABOLIC PANEL Routine 05/05/2024 12:33 PM EST XR CHEST 2 VIEWS Routine 05/05/2024 12:2 3 PM EST documented in this encounter Results * (ABNORMAL) SARS-CoV-2 RNA, Influenza A/B, and RSV RNA, Ql NAAT (05/05/2024 12:33 PM EST) Influenza A PCR POSITIVE(A) Negative [facility] Influenza B PCR NEGATIVE Negative [facility] Resp Syncy Virus RNA Qual PCR NEGATIVE Negative [facility] SARS COV2 PCR NEGATIVE Negative [facility] Comment:All test results mus t [...] use by authorized laboratories.Testing performed on the [employer] GeneXpert utilizingreal-time RT-PCR.All SARS CoV2 and positive influenza A/B results arereported to [facility]. 05/05/2024 12:3 3 PM EST 05/05/2024 12:43 PM EST us Generic External Data Provider LAB MICROBIOLOGY - GENERAL ORDERABLES Final Result [facility] [address] [place] [address] [phone] * (ABNORMAL) Comprehensive Metabolic Panel (05/05/2024 12:33 PM EST) Sodium 134(L) 135 - 145 mmol/L [facility] Potassium 3.4 3.3 - 5.1 mmol/L [facility] Chloride 99 96 - 108 mmol/L [facility] Carbon Dioxide 25 22 - 29 mmol/L [facility] Anion Gap 13 12 - 20 [facility] Urea Nitrogen (BUN) 16 9 - 16 mg/dL [facility] Creatinine, Serum 0.89 0.5 - 1.4 mg/dL [facility] Creatinine Clr Calc Pharmacy 57.0 [facility] Comment:Provided height and weight: 147.32 cm,84 kg.eGFR (calculated from the MDRD study equation) and eCrCl(calculated from the Cockcroft-Gault equation) are based ondifferent parameters and may not yield comparable results.If eCrCl result is absurd, please check patient'sheight/weight. Estimated Glomerular Filt Rate >60 [facility] Comment:Chronic Kidney Disea se: Estimated GFR < 60 mL/min/1.54i7Drnbaf Kidney Disease: Estimated GFR < 15 mL/min/1.73m2 Glucose 136(H) 60 - 115 mg/dL [facility] Calcium 9.1 8.4 - 10.2 mg/dL [facility] Bilirubin, Total 0.4 0.0 - 1.0 mg/dL [facility] Aspartate Amino Transferase 35(H) 5 - 31 U/L [facility] Alanine Aminotransferase 44(H) 0 - 31 U/L [facility] Total Protein 7.4 6.5 - 8.0 g/dL [facility] Albumin Level 3.8 3.5 - 5.0 g/dL [facility] Alkaline Phosphatase 85 39 - 117 U/L [facility] 05/05/2024 12:3 3 PM EST 05/05/2024 12:43 PM EST us Generic External Data Provider LAB BLOOD ORDERAB LES Final Result [facility] [address] [place] [address] [phone] * (ABNORMAL) CBC auto differential (05/05/2024 12:33 PM EST) White Blood Count 5.2 4.8 - 10.8 X10*3/uL [facility] Red Blood Count 4.03(L) 4.20 - 5.50 X10*6/uL [facility] Hemoglobin 12.5 12.0 - 16.0 g/dl [facility] Hematocrit 35.5(L) 37.0 - 47.0 % [facility] Mean Corpuscular Volume 88.1 80.0 - 98.0 fL [facility] Mean Corpuscular Hemoglobin 31.0 27.0 - 33.0 pg [facility] Mean Corpuscular HGB Conc 35.2(H) 31.0 - 35.0 g/dl [facility] Red Cell Distribution Width 11.9 11.0 - 16.0 % [facility] Platelet Count 218 160 - 400 X10*3/uL [facility] Mean Platelet Volume 8.7(L) 9.4 - 12.3 fL [facility] Neutrophils Percent Auto 63.0 45 - 73 % [facility] Imm Gran Pct Auto 0.2 0.0 - 0.4 % [facility] Lymphocytes Percent Auto 18.8(L) 20 - 40 % [facility] Monocytes Percent Auto 16.1(H) 2 - 11 % [facility] Eosinophils Percent Auto 1.7 0 - 4 % [facility] Basophils Percent Auto 0.2 0 - 2 % [facility] NRBC Pct Auto 0.0 0.0 - 0.2 /100WBC [facility] Neutrophils Absolute Auto 3.3 2.0 - 8.3 x10*3/uL [facility] Imm Gran Abs Auto 0.01 0.00 - 0.03 X10*3/uL [facility] Lymphocytes Absolute Auto 1.0(L) 1.2 - 4.9 X10*3/uL [facility] Monocytes Absolute Auto 0.8 0.1 - 1.2 X10*3/uL [facility] Eosinophils Absolute Auto 0.1 0.0 - 0.4 X10*3/uL [facility] Basophils Absolute Auto 0.0 0.0 - 0.2 X10*3/uL [facility] NRBC Abs Auto 0.000 0.0 - 0.012 X10*3/uL [facility] 05/05/2024 12:3 3 PM EST 05/05/2024 12:43 PM EST us Generic External Data Provider LAB BLOOD ORDERAB LES Final Result Performing Organization Address City/State/[facility] Co de Phone Number [facility] [address] [place] [address] [phone] * XR Chest 2 Views (05/05/2024 12:23 PM EST) Anatomical Region Laterality Modality Chest Radiographic Lia ging 05/05/2024 12:2 3 PM EST Narrative 05/05/2024 1:10 PM EST ? [facility] ?[address] ?[place] [address] ?XRay Report ? Signed ? Patient: Keenan,Ludivina N ?MR#: [id number] ? : 1955 ?Acct:[id number] ? Age/Sex: 68 / F ?ADM Date: 02/13/25 ? Loc: HO.ED ? Attending Dr: ? Ordering Physician: Casandra Kumar NP ?? Date of Service: 05/05/24 ?? Procedure(s): XR chest 2V ?? Accession Number(s): [id number] ? cc: Casandra Kumar NP; Kelli Horton BOATWRIGHT ? EXAMINATION: ?? XR CHEST ? CLINICAL [...] DD/ 1223 ? TD/TT: 05/05/24 1301 ? Bobj Developer: ? Procedure Note Bayrononelteresanayeli, Shekhar - 05/05/2024 [place] [address] XRay Report Signed Patient: Ludivina Hussein [facility]#: [id number] : 8Acct:[id number] Age/Sex: 68 / FADM Date: 05/05/24 Loc: HO.ED Attending Dr: Ordering Physician: Casandra Kumar NP Date of Service: 05/05/24 Procedure(s): XR chest 2V Accession Number(s): [id number] cc: Casandra Kumar POSITION CLASSIFICATION MANAGER; [facility] EXAMINATION: XR CHEST CLINICAL INFORMATION: cough and [...] 05/05/24 1308 DD/ 1223 TD/TT: 05/05/24 1301 Bobj Developer: [facility] External Provider IMG XR PROCEDURES Edited Result - Final documented in this encounter Visit Diagnoses Not on filedocumented in this encounter Additional Health Concerns Assessment Noted Time PHQ-9 Depression Total Score: 0 04/04/19 25 11:23 AM EST documented as of this encounter Care Teams Marker Delivery Relationship Specialty Start Date End Date Kelli Horton FNP [address] [place] [phone] PCP - General Family Medicine 05/20/22 documented as of this encounter
--- OUTSIDE RECORDS SUMMARY | 2024-05-19 09:40 | XMS_ITS | Encounter Summary ---
Author Organization [employer] Address [address] [facility] 7t [place] [address] Care Team Providers Care Order Fulfillment Specialist Name Role Phone Beatriz Ford [facility] Primary Care Provider Aj bradford Thurman [facility] Primary Care Provider [phone] Reason for Visit * Reason Comments Med Refill Encounter Details Date Type Department Care Team ([facility] st Contact Info) Description 04/03/2022 Refill [facility] MED[facility]INE [address] [place] [address] Name, MD Haroon [address] [place] [address] Chronic pain syndrome Social History Tobacco Use [...] on hydrocodone med , please contact .. (Venezuelan speaker) documented in this encounter Plan of Treatment Upcoming Encounters Date Type Department Care Team (Late st Contact Info) Description 06/16/2024 10:30 AM EDT Medication Management [address] [address] 07/18/2024 9:30 AM EDT Clinical Support [address] [address] Tammie Diaz RN documented as of this encounter Visit Diagnoses Diagnosis Chronic pain syndrome documented in this encounter Additional Health Concerns Assessment Noted Time PHQ-9 Depression Total Score: 21 022 10:03 AM EST documented as of this encounter Care Teams Order Fulfillment Specialist Relationship Specialty Start Date End Date Beatriz Ford FNP PCP - General Family Medicine 02/21/22 05/19/22 ThurmanKelli ren FNP [address] [place] [address] PCP - General Family Medicine 05/20/22 documented as of this encounter
--- OUTSIDE RECORDS SUMMARY | 2024-05-19 09:41 | XMS_ITS | Patient Health Record ---
Author Organization [facility] Address [address] [place] [address] Care Team Providers Care Mat Inspector Name Role Phone [facility] Primary Care Provider Unava ilable Jason Lora Unavailable [phone] ALLERGIES No Known Allergies RESULTS Component Value Reference Range Notes US abdomen comp w elastograp hy (Not yet reviewed by provider) Interpretation: Performing Lab: Notes/Report: [facility] [address] [place] [id number] Ultrasound Report Signed Patient: Ludivina Hussein MR#: [id number] : 1955 Acct:[id number] Age/Sex: 68 / F ADM Date: 04/13/24 Loc: HO.US Attending Dr: Jason Lora MD Ordering Physician: Jason Lora MD Date of Service: 04/13/24 Procedure(s): US abdomen comp w elastography Accession Number(s): [id number] cc: Jason Lora MD; [facility] EXAMINATION: US ABDOMEN COMPLETE WITH LIVER [...] by: Jason Lombardi MD 04/14/2024 07:42 AM [facility] Dictated By: Jason Lombardi MD Signed By: <Electronically signed by Jason Lombardi MD in OV> 04/14/24 0742 DD/ 1001 TD/TT: 04/13/24 1033 Attorney General: REASON FOR REFERRAL No Information MEDICATIONS Medication [...] a day for 30 day(s) 06/02/2022 Active Magdiel 250 250 MG 3 tablets Orally Twi ce a day for 30 days 11/28/2013 Active Flovent HFA 12mg Act laura Ursodiol [...] malignant neoplasm of colon (Z12.11) Active confirmed 623462389 Problem Other cirrhosis of liver (K74.69) Active confirmed 13309149 Problem Fatty liver (K76.0) Active confirmed 275035504 Problem History of hepatitis C (Z86.19) Active confirmed [id number] Problem Chronic gastritis without bleeding, unspecified gastritis type (K29.50) Active confirmed 3159698 VITAL SIGNS Blood pressure diastolic 00 mm Hg 02/25/2024 Height 58 in 02/25/2024 Blood pressure systolic 00 mm Hg 02/25/2024 Weight 185 lbs 02/25/2024 BMI 38.66 kg/m2 02/25/2024 Encounters Encounter Location Date Provider Diagnosis [facility] [address] [place] [address] 02/25/2024 Jason Lora Other cirrhosis of liver K74.69 ; History of hepatitis C Z86.19 and Fatty liver K76.0 [facility] [address] [place] [address] 06/02/2023 Jason Lora [facility] [address] [place] [address] 07/02/2023 Jason Lora [facility] [address] [place] [address] 05/12/2024 Jason Lora ASSESSMENTS Encounter Date Diagnosis Assessment Notes Treatment Notes Treatment Clinical Notes 02/25/2024 Other cirrhosis of liver (ICD-10 - K74.69) 02/25/2024 History of hepatitis C (ICD-10 - Z86.19) 02/25/2024 Fatty liver (ICD-10 - K76.0) PLAN OF TREATMENT Pending Test Test Name Order Date LIVER PROFILE 08/27/2012 LIVER PROFILE 08/22/2021 LIVER PROFILE 07/03/2020 LIVER PROFILE 09/15/2013 LIVER PROFILE 02/25/2022 LIVER PROFILE 02/25/2024 CBC w DIFF 02/25/2022 CBC w DIFF 02/25/2024 CBC w DIFF 07/03/2020 PROTHROMBIN TIME (PT, INR) 07/03/2020 ALPHA-FETOPROTEIN,TUMOR MARKER 1 ALPHA-FETOPROTEIN,TUMOR MARKER 7 ALPHA-FETOPROTEIN,TUMOR MARKER 2 ALPHA-FETOPROTEIN,TUMOR MARKER 4 ALPHA-FETOPROTEIN,TUMOR MARKER 3 ALPHA-FETOPROTEIN,TUMOR MARKER 3 ALPHA-FETOPROTEIN,TUMOR MARKER 2 ALPHA-FETOPROTEIN,TUMOR MARKER 4 HEPATITIS C VIRAL LOAD 02/25/2024 US ABD 07/03/2020 US ABD 03/12/2017 HCV LIVER FIBROSIS, FIBRO TEST 4 Prothrombin Time INR 02/25/2022 Prothrombin Time INR 02/26/2023 Prothrombin Time INR 02/25/2024 US abdomen comp w elastography 4 US abdomen comp w elastography 5 Future Test Test Name Order Date UPPER GI ENDOSCOPY 03/05/2018 COLONOSCOPY 03/05/2018 Next Appt Details Provider Name:Jason Talbot Lora , 02/23/2025 09:20:00 AM, [address], [address], [place], [address], Insurance Providers Payer Name Payer Address Payer Phone Subscriber Number Group Number Insured Name Patient Relationship to Insured Coverage Start Date Coverage End Date [facility] Claims [address] [address] [place] [address] [phone] [id number] LUDIVINA HUSSEIN Self - patient is the insured MEDICAID OF [facility] [address] [place] [address] [id number] LUDIVINA HUSSEIN Self - patient is the [...] ursodiol 750 mg b.i.d. Asthma Anxiety Denies [place],CVA,renal disease Kidney stones Negative colonoscopy with Dr. Rodriguez in [place] Urinary incontinence Neg. screening colonoscopy in 04/2018 EGD in 04/2018 with erosive g astritis but neg. Hpylori, no varices, small to mod-sized hiatal hernia Surgical History Surgery Date(Month/Year) Tubal ligation Umbilical hernia surgery 03/2013-Dr. [facility] Vocal cord polyps Bladder suspension by Dr Avelino lama in [place] for urinary incontinence on 09/19/13. Veins in her left leg Right knee replacement with Dr. Solorzano 2020
--- OUTSIDE RECORDS SUMMARY | 2024-05-19 09:41 | XMS_ITS ---
Author Organization [facility] Address [address] [place] [address] Care Team Providers Care Mast Maker Name Role Phone [facility] [place] Primary Care Provider Unava Jason Sethi Unavailable [phone] MEDICATIONS Medication SIG (Take, Route, Fr equency, Duration) Notes Start Date End Date Status Omeprazole 20 MG 1 Orally Every morni ng for 30 day(s) 07/02/2022 Active Encounters Encounter Location Date Provider Diagnosis [facility] [address] [place] [address] 07/02/2023 Jason Lora PLAN OF TREATMENT Medication Medication Name Sig Start Date Stop Date Notes Omeprazole 20 MG 1 Orally Every morning for 30 day(s) 06/21 Next Appt Details Provider Name:Jason Lora , 02/23/2025 09:20:00 AM, [address] [facility] [address] [facility] [address], [address], [place], [address],
--- OUTSIDE RECORDS SUMMARY | 2024-05-19 09:41 | XMS_ITS | Encounter Summary ---
Author Organization [employer] Address [address] 7 [place] [address] Care Team Providers Care Presser And Blocker Knitted Goods Name Role Phone [facility] Primary Care Provider [phone] Reason for Visit * Reason Onset Date Comments Referral 12/11/2022 Encounter Details Date Type Department Care Team (Late Contact Info) Description 12/11/2022 Telephone [facility] [address] [place] [address] [facility] [address] [place] [address] Referral Social History Tobacco Use Types Packs/Day [...] and medication list to be faxed to [phone]. documented in this encounter Plan of Treatment Upcoming Encounters Date Type Department Care Team (Late st Contact Info) Description 06/16/2024 10:30 AM EDT Medication Management [address] [address] 07/18/2024 9:30 AM EDT Clinical Support [address] [address] Tammie Diaz, RN documented as of this encounter Visit Diagnoses Not on filedocumented in this encounter Additional Health Concerns Assessment Noted Time PHQ-9 Depression Total Score: 21 022 10:03 AM EST documented as of this encounter Care Teams Presser And Blocker Knitted Goods Relationship Specialty Start Date End Date Kelli Horton FNP [address] [place] [address] PCP - General Family Medicine 05/20/22 documented as of this encounter
== END 2024-05-19 09:00 | disposition home or self-care (01) ==
LOC: HO.CT 08:59
PROVIDERS: PCP Registered Nurse; Visit Provider Internal Medicine Pulmonary Disease
DX: Z12.2 Encounter for screening for malignant neoplasm of respiratory organs (principal); Z87.891 Personal history of nicotine dependence
CPT/HCPCS: 71271

== ENCOUNTER → 2024-05-19 09:01 | Outpatient (BNV) | payer OTHER, SELFPAY | PROVIDERS: PCP Registered Nurse; Visit Provider Nuclear Medicine | DX: Z87.891 Personal history of nicotine dependence (principal) | CPT/HCPCS: 71271 ==

== ENCOUNTER 2024-05-21 19:48 | Emergency (ER) | payer OTHER, SELFPAY ==
--- NOTE | ~2024-05-21 | XR_ITS ---
CLINICAL HISTORY: cp 2 view chest x-ray. Comparison: CT/SR - CT LUNG SCREENING - 05/19/24 09:08 EST CR/SR - XR CHEST 2V - 05/05/24 13:03 EST Findings: No consolidation, pneumothorax, or effusion. Heart size normal. Surgical anchors are visualized at the right humeral head. Impression: 1. No acute cardiopulmonary process. No focal pulmonary consolidation. This document has been electronically signed by: Tim Sr MD on 05/21/2024 21:21:11
--- NOTE | ~2024-05-21 | CT_ITS ---
CLINICAL HISTORY: CP, elevated D-dimer(246) rule out PE CT angiography chest using contrast. 3-D postprocessing Comparison: CR - XR CHEST 2V - 05/21/24 21:[address]/SR - CT LUNG SCREENING - 05/19/24 09:08 EST Findings: No pulmonary embolism. No thoracic aorta aneurysm. Heart size is borderline enlarged. RV/LV ratio normal. No focal pulmonary consolidation, pneumothorax, or pleural effusion. Minimal dependent ground-glass opacities are identified within the lungs bilaterally, possibly consistent with scattered subsegmental atelectasis. Visualized upper abdomen unremarkable. No acute fractures. Impression: 1. Negative for pulmonary embolism. 2. Minimal dependent ground-glass opacities present within the bilateral lungs, possibly consistent with scattered bilateral subsegmental atelectasis. No focal pulmonary consolidation. 3. Borderline cardiomegaly. This document has been electronically signed by: Tim Sr MD on 05/22/2024 00:18:43
--- NOTE | 2024-05-21 19:50 | ECG_ITS ---
Test Reason : CP Blood Pressure : */* mmHG Vent. Rate : 64 BPM Atrial Rate : 64 BPM P-R Int : 160 ms QRS Dur : 120 ms QT Int : 442 ms P-R-T Axes : 38 -3 55 degrees QTcB Int : 455 ms Normal sinus rhythm Right bundle branch block Abnormal ECG When compared with ECG of 05-May-2024 12:28, Nonspecific T wave abnormality no longer evident in Inferior leads Referred By: Vane Garcia Electronically Signed By: Shady Gomez
[2024-05-21 19:53] VITALS: BP 130/80; PULSE 79; RESP 18; TEMP 36.2; O2SAT 97; BMI 39.8
--- NOTE | 2024-05-21 19:57 | ED_ITS ---
HPI - Chest Pain General Chief Complaint: Chest Pain Stated Complaint: chest pain Time Seen by Provider: 05/21/24 21:10 Related Data Home Medications ?Medication ?Instructions ?Recorded ?Confirmed albuterol sulfate 90 mcg/actuation 90 mcg inhalation Q4-6H PRN 03/21/20 03/28/24 aerosol inhaler Wheezing atorvastatin 20 mg tablet 20 mg PO DAILY 03/21/20 03/28/24 clonazepam 0.5 mg tablet 0.5 mg PO DAILY PRN Anxiety 03/21/20 03/28/24 omeprazole 20 mg capsule,delayed 20 mg PO QAM 03/21/20 03/28/24 release amlodipine 2.5 mg tablet 2.5 mg PO DAILY 04/03/20 03/28/24 fluticasone propionate 50 50 mcg intranasal BID 04/03/20 03/28/24 mcg/actuation nasal spray,suspension lisinopril 10 1 tab PO DAILY 04/03/20 03/28/24 mg-hydrochlorothiazide 12.5 mg tablet metformin 500 mg tablet 500 mg PO QAM 04/03/20 03/28/24 montelukast 10 mg tablet 10 mg PO DAILY 04/03/20 03/28/24 ursodiol 250 mg tablet 750 mg PO BID 04/03/20 03/28/24 vitamin E (dl, acetate) 180 mg 180 mg PO DAILY 11/22/20 03/28/24 (400 unit) capsule darifenacin 15 mg tablet,extended 15 mg PO QAM 06/24/21 03/28/24 release 24 hr naloxone 4 mg/actuation nasal 0 spray intranasal 06/24/21 03/28/24 spray (Narcan) trazodone 150 mg tablet 300 mg PO BEDTIME 06/24/21 03/28/24 albuterol sulfate 2.5 mg/3 mL mg inhalation 10/01/21 03/28/24 (0.083 %) solution for nebulization celecoxib 200 mg capsule 0 mg PO 07/14/22 03/28/24 loratadine 10 mg tablet 10 mg PO QAM 08/13/22 03/28/24 Previous Rx's ?Medication ?Instructions ?Recorded docusate sodium 100 mg capsule 100 mg PO BID 14 days #28 caps 11/24/20 acetaminophen 500 mg tablet 500 mg PO Q6H PRN fever or pain 02/16/22 (Tylenol Extra Strength) #14 tabs morphine 15 mg tablet,extended 15 mg PO Q12H pain severe 3 days 08/27/22 release (MS Contin) #6 tabs oxycodone-acetaminophen 5 mg-325 1 tab PO Q4-6H PRN pain (scale 08/27/22 mg tablet (Percocet) score 4-6) 7 days #42 tabs calcium 600 mg (as 1 tab PO QAM #30 tabs 02/02/23 carbonate)-vitamin D3 10 mcg (400 unit) tablet morphine 15 mg immediate release 15 mg PO Q6H PRN pain #14 tabs 08/26/23 tablet azithromycin 250 mg tablet See Rx Instructions PO .COMPLEX #6 01/16/24 tabs benzonatate 100 mg capsule 100 mg PO TID PRN cough #20 caps 01/16/24 fluticasone fur. 200 mcg-umeclid 1 inh inhalation DAILY #1 ea 03/29/24 62.5 mcg-vilant 25 mcg inhalat.powder (Trelegy Ellipta) Allergies Allergy/AdvReac Type Severity Reaction Status Date / Time No Known Allergies Allergy Verified 05/21/24 20:01 [No Known Allergies*] [facility] Past Medical History Medical History Primary osteoarthritis of left knee Osteoarthritis of hands, bilateral History of COVID-19 RBBB Hx of hepatitis C Asthma Anxiety Elevated cholesterol COVID-19 vaccine series completed JUSTIN (obstructive sleep apnea) Chronic kidney disease Depression Other intervertebral disc displacement, lumbar region Spondylosis of lumbar spine Lumbar facet arthropathy Bilateral primary osteoarthritis of knee Renal stones Essential hypertension Type 2 diabetes mellitus with complication, without long-term current use of insulin Vitamin D deficiency Other chronic pain History of renal calculi Surgical History History of total right knee replacement (TKR) Hx of dilation and curettage History of laryngoscopy Hx of umbilical hernia repair Hx of arthroscopy of left knee Hx of lithotripsy History of esophagogastroduodenoscopy (EGD) S/P repair of ventral hernia H/O abdominal hysterectomy H/O tubal ligation History of colonoscopy Family History Family History Father Diabetes mellitus HTN (hypertension) Mother No problems noted. 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 Housing: House Are you a primary child care provider to a significant other at home: No Do you presently have visiting nurse or other home services: Yes Alcohol intake: former Year quit: 1995 Comment: medicated in pacu Patient Tobacco Use Status: Former Tobacco user Tobacco use type: Cigarette Years Smoked: 5+ Substance Use Type: Crack/Cocaine Advance Directives: No Advance Directives Information Provided: No Do you have a plan to hurt others: No Plan service: No Current occupational status: retired 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 Full HPI, ROS and PE to be performed by primary ED provider. 68 yo F w/PMHx JUSTIN, Asthma-COPD, DM, RBBB, recent Influenza 2 wks ago, presenting to the ED c/o chest pain & cough x2 days. Reports pain worse with coughing. Admits to chronic SOB. PE: lungs CTA, talking in complete sentences Plan: EKG, labs, CXR, viral testing Medications Administered Discontinued Medications Generic Name Dose Route Start Last Admin Trade Name Freq PRN Reason Stop Dose Admin Ibuprofen 600 mg 05/21/24 22:29 05/21/24 22:42 Ibuprofen 600 Mg Tablet PO 05/21/24 22:30 600 mg ONCE ONE Administration Iohexol 65 ml 05/21/24 23:23 05/21/24 23:24 Iohexol 350 Mg/Ml 100 Ml Infus..Btl IV 05/21/24 23:24 65 ml ONCE ONE Administration Medical Decision Making Lab Data 05/21/24 20:17 05/21/24 20:17 Labs: Lab Results 05/21/24 05/21/24 Range/Units 20:17 22:48 WBC 8.2 (4.8-10.8) X10*3/uL RBC 3.94 L (4.20-5.50) X10*6/uL Hgb 12.2 (12.0-16.0) g/dl Hct 34.9 L (37.0-47.0) % MCV 88.6 (80.0-98.0) fL MCH 31.0 (27.0-33.0) pg MCHC 35.0 (31.0-35.0) g/dl RDW 12.0 (11.0-16.0) % Plt Count 276 D (160-400) X10*3/uL MPV 8.8 L (9.4-12.3) fL Immature Gran % (Auto) 0.2 (0.0-0.4) % Neut % (Auto) 57.0 (45-73) % Lymph % (Auto) 30.1 (20-40) % [place] % (Auto) 6.7 (2-11) % Eos % (Auto) 5.6 H (0-4) % Baso % (Auto) 0.4 (0-2) % Lymph # (Auto) 2.5 (1.2-4.9) X10*3/uL [place] # (Auto) 0.6 (0.1-1.2) X10*3/uL Eos # (Auto) 0.5 H (0.0-0.4) X10*3/uL Baso # (Auto) 0.0 (0.0-0.2) X10*3/uL Abs Immat Gran (auto) 0.02 (0.00-0.03) X10*3/uL Absolute Neuts (auto) 4.7 (2.0-8.3) x10*3/uL Absolute Nucleated RBC 0.000 (0.0-0.012) X10*3/uL Nucleated RBC % (auto) 0.0 (0.0-0.2) /100WBC PT 10.7 L (10.9-12.4) SEC INR 0.9 (0.9-1.1) D-Dimer High Sensitivty 246 NG/ML Sodium 140 (135-145) mmol/L Potassium 4.2 D (3.3-5.1) mmol/L Chloride 105 (96-108) mmol/L Carbon Dioxide 26 (22-29) mmol/L Anion Gap 13 (12-20) BUN 16 (9-16) mg/dL Creatinine 0.92 (0.5-1.4) mg/dL Estim Creat Clear Calc 56.1 Estimated GFR > 60 Random Glucose 147 H (60-115) mg/dL Calcium 9.1 (8.4-10.2) mg/dL Magnesium 1.9 (1.6-2.6) mg/dL Total Bilirubin 0.3 (0.0-1.0) mg/dL Direct Bilirubin 0.1 (0.0-0.5) mg/dL AST 31 (5-31) U/L ALT 40 H (0-31) U/L Alkaline Phosphatase 109 (39-117) U/L Troponin I High Sens < 2.7 < 2.7 (<3.5-17.0) ng/L Total Protein 7.2 (6.5-8.0) g/dL Albumin 3.6 (3.5-5.0) g/dL Influenza Type A (PCR) NEGATIVE (Negative) Influenza Type B (PCR) NEGATIVE (Negative) RSV RNA Qual (PCR) NEGATIVE (Negative) SARS-CoV-2 RNA (RT-PCR) NEGATIVE (Negative) Discharge Plan Discharge Clinical Impression: Anterior chest wall pain Patient Disposition: Home, Self-Care Instructions: Chest Wall Pain (ED) Additional Instructions: Take ibuprofen 200 mg tablet every 6 hours if needed for pain. Prescriptions: No Action calcium carbonate-vitamin D3 600 mg-10 mcg (400 unit) tablet 1 tab PO QAM Qty: 30 2RF vitamin E (dl, acetate) 180 mg (400 unit) capsule 180 mg PO DAILY docusate sodium 100 mg Capsule 100 mg PO BID 14 Days Qty: 28 0RF acetaminophen [Tylenol Extra Strength] 500 mg tablet 500 mg PO Q6H PRN (Reason: fever or pain) Qty: 14 0RF morphine 15 mg tablet 15 mg PO Q6H PRN (Reason: pain) Qty: 14 0RF Rx Instructions: Patient may request partial fill; Partial Fill upon patient request. azithromycin 250 mg tablet See Rx Instructions .ROUTE .COMPLEX Qty: 6 0RF Rx Instructions: For 250 mg dose pack: take 500 mg today (day 1), then 250 mg for 4 days (days 2-5) benzonatate 100 mg capsule 100 mg PO TID PRN (Reason: cough) Qty: 20 0RF oxycodone-acetaminophen [Percocet] 5-325 mg tablet 1 tab PO Q4-6H PRN (Reason: pain (scale score 4-6)) 7 Days Qty: 42 0RF Rx Instructions: Partial Fill upon patient request. morphine [MS Contin] 15 mg tablet extended release 15 mg PO Q12H 3 Days Qty: 6 0RF Rx Instructions: Partial Fill upon patient request. lisinopril-hydrochlorothiazide 10-12.5 mg tablet 1 tab PO DAILY amlodipine 2.5 mg tablet 2.5 mg PO DAILY metformin 500 mg tablet 500 mg PO QAM fluticasone propionate 50 mcg/actuation spray,suspension 50 mcg intranasal BID montelukast 10 mg tablet 10 mg PO DAILY ursodiol 250 mg tablet 750 mg PO BID albuterol sulfate 90 mcg/actuation HFA aerosol inhaler 90 mcg inhalation Q4-6H PRN (Reason: Wheezing) clonazepam 0.5 mg tablet 0.5 mg PO DAILY PRN (Reason: Anxiety) atorvastatin 20 mg tablet 20 mg PO DAILY omeprazole 20 mg capsule,delayed release(DR/EC) 20 mg PO QAM naloxone [Narcan] 4 mg/actuation spray,non-aerosol 0 spray intranasal darifenacin 15 mg tablet extended release 24 hr 15 mg PO QAM trazodone 150 mg tablet 300 mg PO BEDTIME albuterol sulfate 2.5 mg /3 mL (0.083 %) solution for nebulization inhalation celecoxib 200 mg capsule 0 mg PO Trelegy Ellipta 200-62.5-25 mcg blister with device 1 inh inhalation DAILY Qty: 1 6RF loratadine 10 mg tablet 10 mg PO QAM Referrals: Kelli Horton, REAL ESTATE DIRECTOR [Primary Care Provider] - Interventions: ED Discharge Assessment Last Done: 05/22/24 01:10 Discharge Date/Time: 05/22/24 01:10 Print Language: Malagasy
[2024-05-21 20:22] LABS: MANUAL DIFF FLAG NO
[2024-05-21 20:23] LABS: Basophils Percent Auto 0.4 % (0-2); Eosinophils Absolute Auto 0.5 X10*3/uL (0.0-0.4); Eosinophils Percent Auto 5.6 % (0-4); Hematocrit 34.9 % (37.0-47.0); Hemoglobin 12.2 g/dl (12.0-16.0); Imm Gran Abs Auto 0.02 X10*3/uL (0.00-0.03); Imm Gran Pct Auto 0.2 % (0.0-0.4); Lymphocytes Absolute Auto 2.5 X10*3/uL (1.2-4.9); Lymphocytes Percent Auto 30.1 % (20-40); Mean Corpuscular Volume 88.6 fL (80.0-98.0); Mean Platelet Volume 8.8 fL (9.4-12.3); Monocytes Absolute Auto 0.6 X10*3/uL (0.1-1.2); Monocytes Percent Auto 6.7 % (2-11); Neutrophils Absolute Auto 4.7 x10*3/uL (2.0-8.3); Platelet Count 276 X10*3/uL (160-400); Red Blood Count 3.94 X10*6/uL (4.20-5.50); White Blood Count 8.2 X10*3/uL (4.8-10.8)
[2024-05-21 20:28] LABS: INTERNATIONAL NORM RATIO 0.9 (0.9-1.1); Prothrombin Time 10.7 SEC (10.9-12.4)
[2024-05-21 20:46] LABS: Alanine Aminotransferase 40 U/L (0-31); Albumin Level 3.6 g/dL (3.5-5.0); Anion Gap 13 (12-20); Aspartate Amino Transferase 31 U/L (5-31); Bilirubin Direct 0.1 mg/dL (0.0-0.5); Bilirubin Total 0.3 mg/dL (0.0-1.0); Blood Urea Nitrogen 16 mg/dL (9-16); Calcium 9.1 mg/dL (8.4-10.2); Carbon Dioxide 26 mmol/L (22-29); Chloride 105 mmol/L (96-108); Creatinine Clr Calc Pharmacy 56.1; Estimated Glomerular Filt Rate > 60; Glucose Random 147 mg/dL (60-115); Magnesium 1.9 mg/dL (1.6-2.6); Potassium 4.2 mmol/L (3.3-5.1); Sodium 140 mmol/L (135-145); Total Protein 7.2 g/dL (6.5-8.0)
[2024-05-21 20:47] LABS: Troponin-I High Sensitivity < 2.7 ng/L (<3.5-17.0)
[2024-05-21 20:58] LABS: Alkaline Phosphatase 109 U/L (39-117)
[2024-05-21 21:00] LABS: Influenza A PCR NEGATIVE (Negative); Influenza B PCR NEGATIVE (Negative); Resp Syncy Virus RNA Qual PCR NEGATIVE (Negative); SARS COV2 PCR INHOUSE NEGATIVE (Negative)
--- OUTSIDE RECORDS SUMMARY | 2024-05-21 21:36 | XMS_ITS | Encounter Summary ---
Author Organization [employer] Address [address] [place] [address] Care Team Providers Care Welding Process Engineer Name Role Phone Kelli Horton CAKE FORMER Primary Care Provider [phone] Encounter Details Date Type Department Care Team ([facility] st Contact Info) Description 02/06/2023 Abstract [facility] [address] [place] [address] Madeleine Valle Social History Tobacco Use Types [...] Description 06/16/2024 10:30 AM EDT Medication Management [facility] [address] [place] [address] 07/18/2024 9:30 AM EDT Clinical Support [facility] [address] [place] [address] Tammie Diaz RN documented as of this [...] documented as of this encounter Care Teams Welding Process Engineer Relationship Specialty Start Date End Date Kelli Horton FNP [address] [place] [address] PCP - General Family Medicine 05/20/22 documented as of this encounter
--- OUTSIDE RECORDS SUMMARY | 2024-05-21 21:36 | XMS_ITS | Encounter Summary ---
Author Organization [employer] Address [address] [facility] [address] [place] [address] Care Team Providers Care Patient Financial Services Specialist Name Role Phone [facility] Primary Care Provider [phone] Reason for Visit * Reason Onset Date Comments Nurse Triage 02/11/2023 Encounter Details Date Type Department Care Team ([facility] st Contact Info) Description 02/11/2023 Telephone [facility] [address] [place] [address] [facility] [address] [place] [address] Nurse Triage Social History Tobacco Use Types [...] past 12 months, has t he electric, [employer], oil or water [employer] threatened to shut off services in your [...] the only possible outcome for this symptom Monegasque Speaker documented in this encounter Plan of Treatment Upcoming Encounters Date Type Department Care Team (Late st Contact Info) Description 06/16/2024 10:30 AM EDT Medication Management [address] [address] 07/18/2024 9:30 AM EDT Clinical Support [address] [address] Tammie Diaz RN documented as of this encounter Visit Diagnoses Not on filedocumented in this encounter Additional Health Concerns Assessment Noted Time PHQ-9 Depression Total Score: 21 022 10:03 AM EST documented as of this encounter Care Teams Patient Financial Services Specialist Relationship Specialty Start Date End Date Kelli Horton FNP [address] [place] [address] PCP - General Family Medicine 05/20/22 documented as of this encounter
--- OUTSIDE RECORDS SUMMARY | 2024-05-21 21:36 | XMS_ITS | Encounter Summary ---
Author Organization [employer] Address [address] [facility] [address] [place] [address] Care Team Providers Care Bench Lay Out Technician Name Role Phone [facility] Primary Care Provider [phone] Reason for Visit * Reason Onset Date Comments Med Refill 02/11/2023 Encounter Details Date Type Department Care Team ([facility] st Contact Info) Description 02/11/2023 Telephone [facility] [address] [place] [address] [facility] [address] [place] [address] Med Refill Social History Tobacco Use Types [...] from pt requesting med refill on; HYDROcodone-acetaminophen ([place]) 5-325 MG tablet documented in this encounter Plan of Treatment Upcoming Encounters Date Type Department Care Team (Late st Contact Info) Description 06/16/2024 10:30 AM EDT Medication Management [address] [address] 07/18/2024 9:30 AM EDT Clinical Support [address] [address] Tammie Diaz RN documented as of this encounter Visit Diagnoses Not on filedocumented in this encounter Additional Health Concerns Assessment Noted Time PHQ-9 Depression Total Score: 21 022 10:03 AM EST documented as of this encounter Care Teams Bench Lay Out Technician Relationship Specialty Start Date End Date Kelli Horton FNP [address] [place] [address] PCP - General Family Medicine 05/20/22 documented as of this encounter
--- OUTSIDE RECORDS SUMMARY | 2024-05-21 21:36 | XMS_ITS | Encounter Summary ---
Author Organization [facility] Address [address] [place] [address] Phone Care Team Providers Care Computed Tomography Scanner Operator Name Role Phone [facility] Primary Care Provider [phone] Encounter Details Date Type Department Care Team (Late Contact Info) Description 12/10/2021 Documentation Only [facility] [place], [address] [place] [address] Shaun Morales PA Social History [...] Visit [facility] [address] [place] [address] Danny Mahoney MD [address] [phone] documented as of this encounter Visit Diagnoses Not on filedocumented in this encounter Care Teams Computed Tomography Scanner Operator Relationship Specialty Start Date End Date Purdys, Kelli [address] [place], [place] [phone] PCP - General 11/26/23 documented as of this encounter
--- OUTSIDE RECORDS SUMMARY | 2024-05-21 21:36 | XMS_ITS | Clinical Summary ---
Author Organization [facility] [place] Address [address] [place] [address] Phone Care Team Providers Care Forest Fire Fighters Dispatcher Name Role Phone Kelli Horton Primary Care Provider [phone] Allergies Active Allergy Reactions Criticality Noted Date [...] up pelvic exam C-scope: Previously at [facility]. Date unknown BMD: Routine age 67 Right bundle-branch block 07/22/20222022 Obstructive sleep apnea syndrome 03/21/2022 02/24/2023 Overview (02/24/2023): ?? Has CPAP Chronic low back pain 03/12/2022 02/24/2023 Overview (02/24/2023): ?? Hydrocodone t.i.d as needed. ?? Compliant with COKE HANDLING SUPERVISOR agreement Pain of knee region 03/12/2022 02/24/2023 [...] Exam: [facility] by [facility] [place] Lipid panel: 03/2022 WNL ASCVD: LDL < [...] Visit [facility] [address] [place] [phone] Danny Mahoney MD [address] [phone] Health Maintenance Due Date Last Done Comments [...] 04/22/2023, 03/27/2017, 12/31/2007 Insurance [place]ICAID [place] [address] ([id number]) [place] [address] ([id number]) Care Teams Forest Fire Fighters Dispatcher Relationship Specialty Start Date End Date [facility] [address] [place] [address] PCP - General 11/26/23
--- OUTSIDE RECORDS SUMMARY | 2024-05-21 21:37 | XMS_ITS | Encounter Summary ---
Author Organization [employer] Address [address] [facility] 7t [place] [address] Care Team Providers Care Government Affairs Specialist Name Role Phone [facility] Primary Care Provider [phone] Encounter Details Date Type Department Care Team (Late st Contact Info) Description 05/19/2024 Orders Only [facility] [address] [place] [address] [facility] [address] [place] [address] Social History Tobacco Use Types Packs/Day Years [...] Description 06/16/2024 10:30 AM EDT Medication Management [facility] [address] [facility] [place] [address] 07/18/2024 9:30 AM EDT Clinical Support [facility] [place] [address] Tammie Diaz RN documented as of this encounter Procedures Procedure Name Priority Date/Time Associated Diagnosis Comments LDCT LUNG SCREENING Routine 05/19/2024 4 :13 PM EST documented in this encounter Results * CT Lung Screening Low dose (05/19/2024 4:13 PM EST) Anatomical Region Laterality Modality Lung Computed Tomogra phy 05/19/2024 4:13 PM EST Narrative 05/19/2024 4:16 PM EST ? [facility] ?[address] ?[place] [address] ? CT Scan Report ? Signed ? Patient: Ludivina Hussein ?MR#: [id number] ? : 1955 ?Acct:[id number] ? Age/Sex: 68 / F ?ADM Date: 02/27/25 ? Loc: HO.CT ? Attending Dr: Chaparro Jeffers MD ? Ordering Physician: Chaparro Jeffers MD ?? Date of Service: 05/19/24 ?? Procedure(s): CT lung screening ?? Accession Number(s): [id number] ? cc: Chaparro Jeffers MD; Kelli Horton WORK ADJUSTMENT INSTRUCTOR ? Report Number: ?? [id number]: Total DLP = ?? 62.00 mGy-cm ? CLINICAL HISTORY: Z87.891 - Personal history of nicotine dependence ? CT lung cancer screening (LDCT) ? Comparison: None ? Technique: ?? Axial CT images of the chest using low-dose technique. Referring provider ?? counseled the patient on shared decision-making for LDCT screening. ?? Additional counseling was provided on smoking cessation. ?? Effective radiation dose total: DLP 51.5 mGycm, CTDIvol 1.7 mGy. ? Findings: ?? Lung: No emphysema. Focal thickening of the right minor fissure series 6, ?? image 52. No abnormal pulmonary nodules. ? Coronary artery calcifications: None ?? Limited upper abdomen: Unremarkable ? Other: None ? Impression: ?? LungRADS 1: Negative exam. Continue annual screening with low dose Chest ?? CT in 12 months. ? ##L1# ? Category 1: Normal; continue annual screening ?? Category 2: Benign appearance or behavior, continue annual screening ?? Category 3: Probably benign, [address] recommended ?? Category 4A: Suspicious, [address] recommended; may consider PET/CT ?? Category 4B: Suspicious, Additional diagnostics and/or tissue sampling ?? recommended ?? Category 4X: Suspicious, Additional diagnostics and/or tissue sampling ?? recommended ?? Category 0: Recalls (incomplete screen due to Incomplete coverage, Noise, ?? Respiratory motion, Expiration, Obscured by acute abnormality) ? This document has been electronically signed by: Pan Cruz MD on ?? 05/19/2024 16:13:25 ? Dictated By: ?Pan Cruz MD ? Signed By: ?<Electronically signed by Pan Cruz MD in OV> ? 05/19/245 ? DD/ 1613 ? TD/TT: 05/19/243 ? Director Business Travel: ? Procedure Note Marie, Shekhar - 05/19/[address] [place] [address] CT Scan Report Signed Patient: Ludivina Hussein [facility]#: [id number] : 8Acct:[id number] Age/Sex: 68 / FADM Date: 05/19/24 Loc: HO.CT Attending Dr: Chaparro Jeffers MD Ordering Physician: Chaparro Jeffers MD Date of Service: 05/19/24 Procedure(s): CT lung screening Accession Number(s): [id number] cc: Chaparro Jeffers MD; [facility] Report Number: [id number]: Total DLP = 62.00 mGy-cm CLINICAL HISTORY: Z87.891 - Personal history of nicotine dependence CT lung cancer screening (LDCT) Comparison: None Technique: Axial CT images of the chest using low-dose technique. Referring provider counseled the patient on shared decision-making for LDCT screening. Additional counseling was provided on smoking cessation. Effective radiation dose total: DLP 51.5 mGycm, CTDIvol 1.7 mGy. Findings: Lung: No emphysema. Focal thickening of the right minor fissure series 6, image 52. No abnormal pulmonary nodules. Coronary artery calcifications: None Limited upper abdomen: Unremarkable Other: None Impression: LungRADS 1: Negative exam. Continue annual screening with low dose Chest CT in 12 months. ##L1# Category 1: Normal; continue annual screening Category 2: Benign appearance or behavior, continue annual screening Category 3: Probably benign, [address] recommended Category 4A: Suspicious, [address] recommended; may consider PET/CT Category 4B: Suspicious, Additional diagnostics and/or tissue sampling recommended Category 4X: Suspicious, Additional diagnostics and/or tissue sampling recommended Category 0: Recalls (incomplete screen due to Incomplete coverage, Noise, Respiratory motion, Expiration, Obscured by acute abnormality) This document has been electronically signed by: Pan Cruz MD on 05/19/2024 16:13:25 Dictated By: Pan Cruz MD Signed By: <Electronically signed by Pan Cruz MD in OV> 05/19/24 1615 DD/ 1613 TD/TT: 05/19/24 1613 Director Business Travel: [facility] External Provider IMG CT PROCEDURES Final Result documented in this encounter Visit Diagnoses Not on filedocumented in this encounter Additional Health Concerns Assessment Noted Time PHQ-9 Depression Total Score: 0 04/04/19 25 11:23 AM EST documented as of this encounter Care Teams Government Affairs Specialist Relationship Specialty Start Date End Date eKlli Horton FNP [address] [place] [address] PCP - General Family Medicine 05/20/22 documented as of this encounter
--- OUTSIDE RECORDS SUMMARY | 2024-05-21 21:37 | XMS_ITS | Encounter Summary ---
Author Organization [facility] Address [address] [place] [address] Phone Care Team Providers Care Direct Casting Operator Name Role Phone [facility] Primary Care Provider [phone] Encounter Details Date Type Department Care Team (Late Contact Info) Description 12/23/2021 Documentation Only [facility] [place], [address] [place] [address] Shaun Morales PA Social History [...] Visit [facility] [address] [place] [address] Danny Mahoney MD [address] [phone] documented as of this encounter Visit Diagnoses Not on filedocumented in this encounter Care Teams Direct Casting Operator Relationship Specialty Start Date End Date Sheldon, Kelli [address] [place], [place] [phone] PCP - General 11/26/23 documented as of this encounter
--- OUTSIDE RECORDS SUMMARY | 2024-05-21 21:37 | XMS_ITS | Encounter Summary ---
Author Organization [employer] Address [address] [facility] 7t [place] [address] Care Team Providers Care Derrick Boat Lever Operator Name Role Phone Kelli Horton Primary Care Provider [phone] Reason for Referral * Hospital - Outpatient (Routine) - Authorized Specialty Diagnoses / Procedures Referred By Cruz murillo Referred To Contact Diagnoses Obstructive sleep apnea syndrome Procedures Polysomnography Kelli Horton FNP [address] [place] [address] Phone: tel: fax: [address] Phone: tel: fax: Referral ID Status Reason Start Date Expiration Date V isits Requested Visits Authorized [id number] Authorized 05/11/2024 05/11/2025 1 1 Encounter Details Date Type Department Care Team (Late st Contact Info) Description 05/11/2024 Orders Only [facility] [address] [place] [phone] Kelli Horton FNP [address] [place], [place] [phone] Obstructive sleep apnea syndrome (Primary Dx) Social [...] 10:30 AM EDT Medication Management [facility] [address] [place] [address] 07/18/2024 9:30 AM EDT Clinical Support [facility] [address] [place] [address] Tammie Diaz RN Scheduled Orders Name Type [...] documented as of this encounter Care Teams Derrick Boat Lever Operator Relationship Specialty Start Date End Date Chappells [place], ALYSSA [address] [place] [address] PCP - General Family Medicine 05/20/22 documented as of this encounter
--- OUTSIDE RECORDS SUMMARY | 2024-05-21 21:37 | XMS_ITS | Encounter Summary ---
Author Organization [employer] Address [address] [facility] 7t [place] [address] Care Team Providers Care Hydroelectric Powerplant Supervisor Name Role Phone Beatriz Ford [facility] Primary Care Provider jA bradford [place] [facility] Primary Care Provider [phone] Reason for Visit * Reason Comments Med Refill Encounter Details Date Type Department Care Team ([facility] st Contact Info) Description 04/03/2022 Refill [facility] [address] [place] [address] Name, MD Haroon [address] [place] [address] Chronic pain syndrome Social History Tobacco Use [...] on hydrocodone med , please contact .. (Hebrew speaker) documented in this encounter Plan of Treatment Upcoming Encounters Date Type Department Care Team (Late st Contact Info) Description 06/16/2024 10:30 AM EDT Medication Management [address] [address] 07/18/2024 9:30 AM EDT Clinical Support [address] [address] Tammie Diaz RN documented as of this encounter Visit Diagnoses Diagnosis Chronic pain syndrome documented in this encounter Additional Health Concerns Assessment Noted Time PHQ-9 Depression Total Score: 21 022 10:03 AM EST documented as of this encounter Care Teams Hydroelectric Powerplant Supervisor Relationship Specialty Start Date End Date Beatriz Ford FNP PCP - General Family Medicine 02/21/22 05/19/22 [place] FNP [address] [place] [address] PCP - General Family Medicine 05/20/22 documented as of this encounter
--- OUTSIDE RECORDS SUMMARY | 2024-05-21 21:37 | XMS_ITS | Encounter Summary ---
Author Organization [employer] Address [address] [facility] 7t [place] [address] Care Team Providers Care Globe Cleaner Name Role Phone [facility] Primary Care Provider [phone] Reason for Visit * Reason Onset Date Comments Med Refill 05/12/2024 Encounter Details Date Type Department Care Team (Late st Contact Info) Description 05/12/2024 Refill [facility] [address] [place] [address] [facility] [address] [place] [address] Chronic low back pain, unspecified back pain [...] medication refill. Medications needing refill : HYDROcodone-acetaminophen ([place]) 5-325 MG tablet To be sent to: [facility] [place], [place] - [address] [place] [address] documented in this encounter Plan of Treatment Upcoming Encounters Date Type Department Care Team (Late st Contact Info) Description 06/16/2024 10:30 AM EDT Medication Management [address] [address] 07/18/2024 9:30 AM EDT Clinical Support [address] [address] Tammie Diaz RN documented as of this encounter Visit Diagnoses Diagnosis Chronic low back pain, unspecified back pain laterality, unspecified whether sciatica present documented in this encounter Additional Health Concerns Assessment Noted Time PHQ-9 Depression Total Score: 0 04/04/19 25 11:23 AM EST documented as of this encounter Care Teams Globe Cleaner Relationship Specialty Start Date End Date Kelli Horton FNP [address] [place] [address] PCP - General Family Medicine 05/20/22 documented as of this encounter
--- OUTSIDE RECORDS SUMMARY | 2024-05-21 21:37 | XMS_ITS | Encounter Summary ---
Author Organization [employer] Address [address] [facility] 7t [place] [address] Care Team Providers Care Grease Packer Name Role Phone [facility] Primary Care Provider [phone] Reason for Visit * Reason Comments Med Refill Encounter Details Date Type Department Care Team (Late st Contact Info) Description 12/17/2023 Refill [facility] [address] [place] [address] [facility] [address] [place] [address] Chronic low back pain, unspecified back pain [...] Description 06/16/2024 10:30 AM EDT Medication Management [address] [address] 07/18/2024 9:30 AM EDT Clinical Support [address] [address] Tammie Diaz RN documented as of this encounter Visit Diagnoses Diagnosis Chronic low back pain, unspecified back pain laterality, unspecified whether sciatica present documented in this encounter Additional Health Concerns Assessment Noted Time PHQ-9 Depression Total Score: 0 07/22/19 24 9:10 AM EDT documented as of this encounter Care Teams Grease Packer Relationship Specialty Start Date End Date Kelli Horton FNP [address] [place] [address] PCP - General Family Medicine 05/20/22 documented as of this encounter
--- OUTSIDE RECORDS SUMMARY | 2024-05-21 21:37 | XMS_ITS | Encounter Summary ---
Author Organization [employer] Address [address] [facility] 7t [place] [address] Care Team Providers Care Replacer Name Role Phone Kelli Horton NEUROLOGY TECHNOLOGIST Primary Care Provider [phone] Encounter Details Date Type Department Care Team (Late st Contact Info) Description 05/21/2024 Orders Only GENERIC EXTERNAL DATA DEPARTMENT Provider, [...] Medication Management [facility] [address] [place] [address] 07/18/2024 9:30 AM EDT Clinical Support [facility] [address] [place] [address] Tammie Diaz RN documented as of this encounter Procedures Procedure Name Priority Date/Time Associated Diagnosis Comments XR CHEST 2 VIEWS Routine 05/21/2024 9:21 PM EST HIGH SENSITIVITY TROPONIN I Routine 05/21/2024 8:17 PM EST SARS COV2/INFLUENZA A/B AND RSV RNA QL NAAT Routine 05/21/2024 8:17 PM EST CBC WITH AUTO DIFFERENTIAL Routine 05/21/2024 8:17 PM EST PROTHROMBIN TIME-INR Routine 05/21/2024 8:17 PM EST MAGNESIUM Routine 05/21/2024 8:17 PM EST HEPATIC FUNCTION PANEL Routine 05/21/2024 8:17 PM EST BASIC METABOLIC PANEL Routine 05/21/2024 8:17 PM EST documented in this encounter Results * XR Chest 2 Views (05/21/2024 9:21 PM EST) Anatomical Region Laterality Modality Chest Radiographic Lia ging 05/21/2024 9:21 PM EST Narrative 05/21/2024 9:23 PM EST ? [facility] ?[address] ?[place] [address] ?XRay Report ? Signed ? Patient: Keenan,Ludivina N ?MR#: [id number] ? : 1955 ?Acct:[id number] ? Age/Sex: 68 / F ?ADM Date: 05/21/24 ? Loc: HO.ED ? Attending Dr: ? Ordering Physician: Vane Garcia ?? Date of Service: 05/21/24 ?? Procedure(s): XR chest 2V ?? Accession Number(s): [id number] ? cc: Vane Garcia; Kelli Horton ? CLINICAL HISTORY: cp ? 2 view chest x-ray. ? Comparison: CT/SR - CT LUNG SCREENING - 05/19/24 09:08 EST ?? CR/SR - XR CHEST 2V - 05/05/24 13:03 EST ? Findings: ?? No consolidation, pneumothorax, or effusion. Heart size normal. ?? Surgical anchors are visualized at the right humeral head. ? Impression: ?? 1. No acute cardiopulmonary process. No focal pulmonary consolidation. ? This document has been electronically signed by: Tim Sr MD on ?? 05/21/2024 21:21:11 ? Dictated By: ?Tim Sr MD ? Signed By: ?<Electronically signed by Tim Sr MD in OV> ? 05/21/242 ? DD/ 20 ? TD/TT: 05/21/242120 ? County Administrator: ? Procedure Note Shekhar Salazar - 05/21/2024 [place] [address] XRay Report Signed Patient: Ludivina Hussein [facility]#: [id number] : 8Acct:[id number] Age/Sex: 68 / FADM Date: 05/21/24 Loc: HO.ED Attending Dr: Ordering Physician: Vane Garcia Date of Service: 05/21/24 Procedure(s): XR chest 2V Accession Number(s): [id number] cc: Vane Garcia; CallawayKelli [facility] CLINICAL HISTORY: cp 2 view chest x-ray. Comparison: CT/SR - CT LUNG SCREENING - 05/19/24 09:08 EST CR/SR - XR CHEST 2V - 05/05/24 13:03 EST Findings: No consolidation, pneumothorax, or effusion. Heart size normal. Surgical anchors are visualized at the right humeral head. Impression: 1. No acute cardiopulmonary process. No focal pulmonary consolidation. This document has been electronically signed by: Tim Sr MD on 05/21/2024 21:21:11 Dictated By: Tim Sr MD Signed By: <Electronically signed by Tim Sr MD in OV> 05/21/242121 DD/ 20 TD/TT: 05/21/242120 County Administrator: [facility] External Provider IMG XR PROCEDURES Edited Result - Final * SARS-CoV-2 RNA, Influenza A/B, and RSV RNA, Ql NAAT (05/21/2024 8:17 PM EST) Influenza A PCR NEGATIVE Negative [facility] Influenza B PCR NEGATIVE Negative [facility] Resp Syncy Virus RNA Qual PCR NEGATIVE Negative [facility] SARS COV2 PCR NEGATIVE Negative [facility] Comment:All test results mus t be [...] use by authorized laboratories.Testing performed on the [employer] GeneXpert utilizingreal-time RT-PCR.All SARS CoV2 and positive influenza A/B results arereported to [facility]. 05/21/2024 8:17 PM EST 05/21/2024 8:20 PM EST Generic External Data Provider LAB MICROBIOLOGY - GENERAL ORDERABLES Final Result [facility] [address] [place] [phone] * High Sensitivity Troponin I (05/21/2024 8:17 PM EST) [facility] TROPONIN I HIGH SENSITIVITY <2.7 <3.5 - 17.0 ng/L [facility] Comment:The [facility] high sens itivity Troponin-I results should beused in conjunction with other diagnostic information suchas ECG, clinical observations and information, and patientsymptoms to aid in the diagnosis of [place]. 05/21/2024 8:17 PM EST 05/21/2024 8:20 PM EST Generic External Data Provider LAB BLOOD ORDERAB LES Final Result Performing Organization Address [facility]/ZIP Co de Phone Number [facility] [address] [place] [phone] * Magnesium (05/21/2024 8:17 PM EST) [facility] Magnesium 1.9 1.6 - 2.6 mg/dL [facility] 05/21/2024 8:17 PM EST 05/21/2024 8:20 PM EST Generic External Data Provider LAB BLOOD ORDERAB LES Final Result Performing Organization Address [facility]/ZIP Co de Phone Number [facility] [address] [place] [phone] * (ABNORMAL) Basic Metabolic Panel (05/21/2024 8:17 PM EST) [facility] Sodium 140 135 - 145 mmol/L [facility] Potassium 4.2 3.3 - 5.1 mmol/L [facility] Chloride 105 96 - 108 mmol/L [facility] Carbon Dioxide 26 22 - 29 mmol/L [facility] Anion Gap 13 12 - 20 [facility] Urea Nitrogen (BUN) 16 9 - 16 mg/dL [facility] Creatinine, Serum 0.92 0.5 - 1.4 mg/dL [facility] Creatinine Clr Calc Pharmacy 56.1 [facility] Comment:Provided height and weight: 147.32 cm,86.4 kg.eGFR (calculated from the MDRD study equation) and eCrCl(calculated from the Cockcroft-Gault equation) are based ondifferent parameters and may not yield comparable results.If eCrCl result is absurd, please check patient'sheight/weight. Estimated Glomerular Filt Rate >60 [facility] Comment:Chronic Kidney Disea se: Estimated GFR < 60 mL/min/1.94n1Kqmelw Kidney Disease: Estimated GFR < 15 mL/min/1.73m2 Glucose 147(H) 60 - 115 mg/dL [facility] Calcium 9.1 8.4 - 10.2 mg/dL [facility] 05/21/2024 8:17 PM EST 05/21/2024 8:20 PM EST us Generic External Data Provider LAB BLOOD ORDERAB LES Final Result Performing Organization Address [facility] Co de Phone Number [facility] [address] [place] [phone] * (ABNORMAL) Hepatic Function Panel (05/21/2024 8:17 PM EST) Bilirubin, Total 0.3 0.0 - 1.0 mg/dL [facility] Bilirubin, Direct 0.1 0.0 - 0.5 mg/dL [facility] Aspartate Amino Transferase 31 5 - 31 U/L [facility] Alanine Aminotransferase 40(H) 0 - 31 U/L [facility] Total Protein 7.2 6.5 - 8.0 g/dL [facility] Albumin Level 3.6 3.5 - 5.0 g/dL [facility] Alkaline Phosphatase 109 39 - 117 U/L [facility] 05/21/2024 8:1 7 PM EST 05/21/2024 8:20 PM EST us Generic External Data Provider LAB BLOOD ORDERAB LES Final Result Performing Organization Address [facility] Co de Phone Number [facility] [address] [place] [phone] * (ABNORMAL) CBC auto differential (05/21/2024 8:17 PM EST) White Blood Count 8.2 4.8 - 10.8 X10*3/uL [facility] Red Blood Count 3.94(L) 4.20 - 5.50 X10*6/uL [facility] Hemoglobin 12.2 12.0 - 16.0 g/dl [facility] Hematocrit 34.9(L) 37.0 - 47.0 % [facility] Mean Corpuscular Volume 88.6 80.0 - 98.0 fL [facility] Mean Corpuscular Hemoglobin 31.0 27.0 - 33.0 pg [facility] Mean Corpuscular HGB Conc 35.0 31.0 - 35.0 g/dl [facility] Red Cell Distribution Width 12.0 11.0 - 16.0 % [facility] Platelet Count 276 160 - 400 X10*3/uL [facility] Mean Platelet Volume 8.8(L) 9.4 - 12.3 fL [facility] Neutrophils Percent Auto 57.0 45 - 73 % [facility] Imm Gran Pct Auto 0.2 0.0 - 0.4 % [facility] Lymphocytes Percent Auto 30.1 20 - 40 % [facility] Monocytes Percent Auto 6.7 2 - 11 % [facility] Eosinophils Percent Auto 5.6(H) 0 - 4 % [facility] Basophils Percent Auto 0.4 0 - 2 % [facility] NRBC Pct Auto 0.0 0.0 - 0.2 /100WBC [facility] Neutrophils Absolute Auto 4.7 2.0 - 8.3 x10*3/uL [facility] Imm Gran Abs Auto 0.02 0.00 - 0.03 X10*3/uL [facility] Lymphocytes Absolute Auto 2.5 1.2 - 4.9 X10*3/uL [facility] Monocytes Absolute Auto 0.6 0.1 - 1.2 X10*3/uL [facility] Eosinophils Absolute Auto 0.5(H) 0.0 - 0.4 X10*3/uL [facility] Basophils Absolute Auto 0.0 0.0 - 0.2 X10*3/uL [facility] NRBC Abs Auto 0.000 0.0 - 0.012 X10*3/uL [facility] 05/21/2024 8:17 PM EST 05/21/2024 8:20 PM EST Generic External Data Provider LAB BLOOD ORDERAB LES Final Result Performing Organization Address [facility] Co de Phone Number [facility] [address] [place] [phone] * (ABNORMAL) Prothrombin Time-INR (05/21/2024 8:17 PM EST) Prothrombin Time 10.7(L) 10.9 - 12.4 SEC [facility] INTERNATIONAL NORM RATIO 0.9 0.9 - 1.1 [facility] Comment:INTERNATIONAL NORMAL IZED RATIO (INR) REFERENCE RANGES Reference RangeFor patients not on anticoagulant therapy: 0.9 - 1.1INR ranges for oral anticoagulanttherapy:For prevention and treatment of venous thrombosis and pulmonary embolism: 2.0 - 3.0For acute myocardial infarction with aspirin therapy: 2.0 - 3.0For acute myocardial infarction without aspirin therapy: 3.0 - 4.0For patients with mechanical prosthetic heart valves: 2.5 - 3.5 05/21/2024 8:17 PM EST 05/21/2024 8:20 PM EST Generic External Data Provider LAB BLOOD ORDERAB LES Final Result Performing Organization Address [facility] Co de Phone Number [facility] [address] [place] [phone] documented in this encounter Visit Diagnoses Not on filedocumented in this encounter Additional Health Concerns Assessment Noted Time PHQ-9 Depression Total Score: 0 04/04/19 25 11:23 AM EST documented as of this encounter Care Teams Replacer Relationship Specialty Start Date End Date Kelli Horton ALYSSA [address] [place] [address] PCP - General Family Medicine 05/20/22 documented as of this encounter
--- OUTSIDE RECORDS SUMMARY | 2024-05-21 21:37 | XMS_ITS | Encounter Summary ---
Author Organization [employer] Address [address] [facility] 7t [place] [address] Care Team Providers Care Nailer Hand Name Role Phone [facility] Primary Care Provider [phone] Reason for Visit * Reason Onset Date Comments Med Refill 03/15/2024 Encounter Details Date Type Department Care Team ([facility] st Contact Info) Description 03/15/2024 Telephone [facility] [address] [place] [address] [facility] [address] [place] [address] Med Refill Social History Tobacco Use Types [...] medication refill. Medications needing refill : HYDROcodone-acetaminophen (Hopkins) 5-325 MG tablet To be sent to: [facility] - [place], [place] - [address] [place] [address] documented in this encounter Plan of Treatment Upcoming Encounters Date Type Department Care Team (Late st Contact Info) Description 06/16/2024 10:30 AM EDT Medication Management [facility] [address] [place] [phone] 07/18/2024 9:30 AM EDT Clinical Support [facility] [address] [place] [phone] Tammie Diaz RN documented as of this encounter Visit Diagnoses Not on filedocumented in this encounter Additional Health Concerns Assessment Noted Time PHQ-9 Depression Total Score: 0 12/25/19 10:25 AM EDT documented as of this encounter Care Teams Nailer Hand Relationship Specialty Start Date End Date Kelli Horton FNP [address] [place] [phone] PCP - General Family Medicine 05/20/22 documented as of this encounter
--- OUTSIDE RECORDS SUMMARY | 2024-05-21 21:37 | XMS_ITS | Encounter Summary ---
Author Organization [facility] Address [address] [place] [address] Phone Care Team Providers Care Registered Vascular Technologist (Rvt) Name Role Phone [facility] Primary Care Provider [phone] Encounter Details Date Type Department Care Team (Late Contact Info) Description 12/20/2021 Documentation Only [facility] [place], [address] [place] [address] Shaun Morales PA Social History [...] Visit [facility] [address] [place] [phone] Danny Mahoney MD [address] [phone] documented as of this encounter Visit Diagnoses Not on filedocumented in this encounter Care Teams Registered Vascular Technologist (Rvt) Relationship Specialty Start Date End Date Finley, Kelli [address] [place], [place] [phone] PCP - General 11/26/23 documented as of this encounter
--- OUTSIDE RECORDS SUMMARY | 2024-05-21 21:37 | XMS_ITS | Encounter Summary ---
Author Organization [employer] Address [address] [facility] 7t [place] [address] Care Team Providers Care Crossing Supervisor Name Role Phone [place] [facility] Primary Care Provider Reason for Visit * Reason Onset Date Comments Med Refill 01/28/2024 Encounter Details Date Type Department Care Team ([facility] st Contact Info) Description 01/28/2024 Telephone [facility] [address] [place] [address] [facility] [address] [place] [address] Med Refill Social History Tobacco Use Types [...] Description 06/16/2024 10:30 AM EDT Medication Management [address] [address] 07/18/2024 9:30 AM EDT Clinical Support [address] [address] Tammie Diaz RN documented as of this encounter Visit Diagnoses Not on filedocumented in this encounter Additional Health Concerns Assessment Noted Time PHQ-9 Depression Total Score: 0 12/25/19 24 10:25 AM EDT documented as of this encounter Care Teams Crossing Supervisor Relationship Specialty Start Date End Date Kelli Horton FNP [address] [place] [phone] PCP - General Family Medicine 05/20/22 documented as of this encounter
--- OUTSIDE RECORDS SUMMARY | 2024-05-21 21:37 | XMS_ITS | Encounter Summary ---
Author Organization [employer] Address [address] [facility] 7t [place] [address] Care Team Providers Care Vacuum Worker Name Role Phone Kelli Horton BAKERY TEAM LEADER Primary Care Provider [phone] Encounter Details Date Type Department Care Team [...] Description 06/16/2024 10:30 AM EDT Medication Management [facility] [address] [place] [address] 07/18/2024 9:30 AM EDT Clinical Support [facility] [address] [place] [address] Tammie Diaz RN documented as of this [...] PM EST) Influenza A PCR POSITIVE(A) Negative [facility] Influenza B PCR NEGATIVE Negative [facility] Resp Syncy Virus RNA Qual PCR NEGATIVE Negative [facility] SARS COV2 PCR NEGATIVE Negative [facility] Comment:All test results mus t [...] use by authorized laboratories.Testing performed on the [employer] GeneXpert utilizingreal-time RT-PCR.All SARS CoV2 and positive influenza A/B results arereported to [facility]. 05/05/2024 12:3 3 PM EST 05/05/2024 12:43 PM EST us Generic External Data Provider LAB MICROBIOLOGY - GENERAL ORDERABLES Final Result [facility] [address] [place] [address] [phone] * (ABNORMAL) Comprehensive Metabolic Panel (05/05/2024 12:33 PM EST) Sodium 134(L) 135 - 145 mmol/L [facility] Potassium 3.4 3.3 - 5.1 mmol/L [facility] Chloride 99 96 - 108 mmol/L [facility] Carbon Dioxide 25 22 - 29 mmol/L [facility] Anion Gap 13 12 - 20 [facility] Urea Nitrogen (BUN) 16 9 - 16 mg/dL [facility] Creatinine, Serum 0.89 0.5 - 1.4 mg/dL [facility] Creatinine Clr Calc Pharmacy 57.0 [facility] Comment:Provided height and weight: 147.32 cm,84 kg.eGFR (calculated from the MDRD study equation) and eCrCl(calculated from the Cockcroft-Gault equation) are based ondifferent parameters and may not yield comparable results.If eCrCl result is absurd, please check patient'sheight/weight. Estimated Glomerular Filt Rate >60 [facility] Comment:Chronic Kidney Disea se: Estimated GFR < 60 mL/min/1.41v9Saijld Kidney Disease: Estimated GFR < 15 mL/min/1.73m2 Glucose 136(H) 60 - 115 mg/dL [facility] Calcium 9.1 8.4 - 10.2 mg/dL [facility] Bilirubin, Total 0.4 0.0 - 1.0 mg/dL [facility] Aspartate Amino Transferase 35(H) 5 - 31 U/L [facility] Alanine Aminotransferase 44(H) 0 - 31 U/L [facility] Total Protein 7.4 6.5 - 8.0 g/dL [facility] Albumin Level 3.8 3.5 - 5.0 g/dL [facility] Alkaline Phosphatase 85 39 - 117 U/L [facility] 05/05/2024 12:3 3 PM EST 05/05/2024 12:43 PM EST us Generic External Data Provider LAB BLOOD ORDERAB LES Final Result [facility] [address] [place] [address] [phone] * (ABNORMAL) CBC auto differential (05/05/2024 12:33 PM EST) White Blood Count 5.2 4.8 - 10.8 X10*3/uL [facility] Red Blood Count 4.03(L) 4.20 - 5.50 X10*6/uL [facility] Hemoglobin 12.5 12.0 - 16.0 g/dl [facility] Hematocrit 35.5(L) 37.0 - 47.0 % [facility] Mean Corpuscular Volume 88.1 80.0 - 98.0 fL [facility] Mean Corpuscular Hemoglobin 31.0 27.0 - 33.0 pg [facility] Mean Corpuscular HGB Conc 35.2(H) 31.0 - 35.0 g/dl [facility] Red Cell Distribution Width 11.9 11.0 - 16.0 % [facility] Platelet Count 218 160 - 400 X10*3/uL [facility] Mean Platelet Volume 8.7(L) 9.4 - 12.3 fL [facility] Neutrophils Percent Auto 63.0 45 - 73 % [facility] Imm Gran Pct Auto 0.2 0.0 - 0.4 % [facility] Lymphocytes Percent Auto 18.8(L) 20 - 40 % [facility] Monocytes Percent Auto 16.1(H) 2 - 11 % [facility] Eosinophils Percent Auto 1.7 0 - 4 % [facility] Basophils Percent Auto 0.2 0 - 2 % [facility] NRBC Pct Auto 0.0 0.0 - 0.2 /100WBC [facility] Neutrophils Absolute Auto 3.3 2.0 - 8.3 x10*3/uL [facility] Imm Gran Abs Auto 0.01 0.00 - 0.03 X10*3/uL [facility] Lymphocytes Absolute Auto 1.0(L) 1.2 - 4.9 X10*3/uL [facility] Monocytes Absolute Auto 0.8 0.1 - 1.2 X10*3/uL [facility] Eosinophils Absolute Auto 0.1 0.0 - 0.4 X10*3/uL [facility] Basophils Absolute Auto 0.0 0.0 - 0.2 X10*3/uL [facility] NRBC Abs Auto 0.000 0.0 - 0.012 X10*3/uL [facility] 05/05/2024 12:3 3 PM EST 05/05/2024 12:43 PM EST us Generic External Data Provider LAB BLOOD ORDERAB LES Final Result Performing Organization Address City/State/[facility] Co de Phone Number [facility] [address] [place] [address] [phone] * XR Chest 2 Views (05/05/2024 12:23 PM EST) Anatomical Region Laterality Modality Chest Radiographic Lia ging 05/05/2024 12:2 3 PM EST Narrative 05/05/2024 1:10 PM EST ? [facility] ?[address] ?[place] [address] ?XRay Report ? Signed ? Patient: Keenan,Ludivina N ?MR#: [id number] ? : 1955 ?Acct:[id number] ? Age/Sex: 68 / F ?ADM Date: 02/13/25 ? Loc: HO.ED ? Attending Dr: ? Ordering Physician: Casandra Kumar NP ?? Date of Service: 05/05/24 ?? Procedure(s): XR chest 2V ?? Accession Number(s): [id number] ? cc: Casandra Kumar NP; Kelli Horton BAKERY TEAM LEADER ? EXAMINATION: ?? XR CHEST ? CLINICAL [...] DD/ 1223 ? TD/TT: 05/05/24 1301 ? County Director: ? Procedure Note Bayrononelteresanayeli, Shekhar - 05/05/2024 [place] [address] XRay Report Signed Patient: Ludivina Hussein [facility]#: [id number] : 8Acct:[id number] Age/Sex: 68 / FADM Date: 05/05/24 Loc: HO.ED Attending Dr: Ordering Physician: Casandra Kumar NP Date of Service: 05/05/24 Procedure(s): XR chest 2V Accession Number(s): [id number] cc: Casandra Kumar NATIONAL ACCOUNTS RECRUITER; [facility] EXAMINATION: XR CHEST CLINICAL INFORMATION: cough and [...] 05/05/24 1308 DD/ 1223 TD/TT: 05/05/24 1301 County Director: [facility] External Provider IMG XR PROCEDURES Edited Result - Final documented in this encounter Visit Diagnoses Not on filedocumented in this encounter Additional Health Concerns Assessment Noted Time PHQ-9 Depression Total Score: 0 04/04/19 25 11:23 AM EST documented as of this encounter Care Teams Vacuum Worker Relationship Specialty Start Date End Date Kelli Horton FNP [address] [place] [phone] PCP - General Family Medicine 05/20/22 documented as of this encounter
--- OUTSIDE RECORDS SUMMARY | 2024-05-21 21:37 | XMS_ITS ---
Author Organization [facility] Address [address] [place] [address] Care Team Providers Care Real Estate Investor Name Role Phone [facility] Primary Care Provider Shivani kellogg Jason Lora Unavailable [phone] ALLERGIES No Known Allergies REASON FOR VISIT [...] 02/25/2024 Encounters Encounter Location Date Provider Diagnosis [facility] [address] [place] [address] 02/25/2024 Jason Lora Other cirrhosis of liver [...] 09:20:00 AM, [address], [address], [place], [address], Progress Notes * Examination Category Sub-Category Detail [...]
--- OUTSIDE RECORDS SUMMARY | 2024-05-21 21:37 | XMS_ITS | Encounter Summary ---
Author Organization [employer] Address [address] [place] [address] 7t [place] [address] Care Team Providers Care Hand Bootmaker Name Role Phone Beatriz Ford [facility] Primary Care Provider Kelli Henning [facility] Primary Care Provider [phone] Encounter Details Date Type Department Care Team ([facility] Contact Info) Description 03/20/[address] [address] Beatriz Ford FNP Social History Tobacco Use [...] 06/16/2024 10:30 AM EDT Medication Management [address] [id number] 07/18/2024 9:30 AM EDT Clinical Support [address] [id number] Emily, Tammie, RN documented as of this encounter Visit Diagnoses Not on filedocumented in this encounter Care Teams Hand Bootmaker Relationship Specialty Start Date End Date Beatriz Ford FNP PCP - General Family Medicine 02/21/22 05/19/22 SolKelli ren FNP [address] [place] [address] PCP - General Family Medicine 05/20/22 documented as of this encounter
--- OUTSIDE RECORDS SUMMARY | 2024-05-21 21:37 | XMS_ITS | Encounter Summary ---
Author Organization [employer] Address [address] [facility] 7t [place] [address] Care Team Providers Care Furnace Charging Machine Operator Name Role Phone Sol Kelli POULTRY FARMWORKER Primary Care Provider [phone] Encounter Details Date Type Department Care Team (Late st Contact Info) Description 04/25/2024 10:00 AM EST Telemedicine [facility] [address] [place] [address] Sada Johnston, PharmD [address] [place] [address] Benign essential hypertension (Primary Dx); Moderate persistent [...] allergic to morphine sulfate er. Preferred Pharmacy: [facility] - [place], [place] - [address] [place] [address] [address] [facility] [address] [facility] #[id number] - [place], [place] - [address] [facility] [address] [facility] [address] Medbox: Yes, last medbox on 03/21/24 . Assessment & Plan Adherence: History: Medication Reconciliation: Reports use of the following medications that are not currently active in [facility] medlist: Trelegy 200-62.5-25 mcg/act 1 puff once daily (prescribed by Dr. Chaparro Jeffers - LF 03/29/24) Trazodone 100 mg once daily (prescribed by Dr. Salamanca - filled in Medbox) Lidocaine-prilocaine cream (LF 03/21/2024) Denies use of the following medications that are active in [facility] medlist: Spiriva respimat inhaler (switched to Trelegy) Advair HFA inhaler (switched to Trelegy) Calcium carbonate-cholecalciferol (patient actively fills prescription for individual agents, rather than the combination tablet) Celecoxib (LF 05/13/23, acute) Gabapentin (LF 06/2021) Lidocaine patches (no dispense hx) Polyethylene glycol powder (no dispense hx) OTC medication, vitamin, supplement use: denies Adherence: Medication Organization: Uses medboxes from [facility] pharmacy Missed doses: Reports missing 1-2 [...] of medications with dinnertime) Read/Write: Yes, in Lao Goals of therapy: Improve adherence & minimize missed doses (<2 missed doses/week) Recommendations/Monitoring: Since patient receives monthly medboxes, please contact medbox pharmacist with any medication changes (initiations, discontinuation, dose adjustments) Pharmacy updated medlist in [facility] to match patient's current medication use. [...] 4-6 hours as needed History: Follows with [facility] pulmonology (Dr. Jeffers - last visit 03/28/24): [...] as directed. Pharmacist relayed to patient that rn medical inpatient services's plan is to initiate Trelegy ellipta in [...] the CDC Adult Immunization Schedule. Assessment/Plan: Influenza 8635-9034 vaccine: Up-to-date . Next dose due annually. COVID-19 7236-0682 vaccine: Up-to-date . Next dose due annually. [...] Description 06/16/2024 10:30 AM EDT Medication Management [address] [address] 07/18/2024 9:30 AM EDT Clinical Support [address] [address] Tammie Diaz RN Scheduled Orders Name Type [...] documented as of this encounter Care Teams Furnace Charging Machine Operator Relationship Specialty Start Date End Date Kelli Horton FNP [address] [place] [address] PCP - General Family Medicine 05/20/22 documented as of this encounter
--- OUTSIDE RECORDS SUMMARY | 2024-05-21 21:37 | XMS_ITS | Encounter Summary ---
Author Organization [facility] Address [address] [place] [address] Phone Care Team Providers Care Social Science Analyst Name Role Phone [facility] Primary Care Provider [phone] Encounter Details Date Type Department Care Team (Late Contact Info) Description 12/23/2021 Documentation Only [facility], [address] [place] [address] Shaun Morales PA Social History [...] [facility] [address] [place] [place] [address] Danny Mahoney MD [address] [phone] documented as of this encounter Visit Diagnoses Not on filedocumented in this encounter Care Teams Social Science Analyst Relationship Specialty Start Date End Date [place], Kelli [address] [place], [place] [phone] PCP - General 11/26/23 documented as of this encounter
--- OUTSIDE RECORDS SUMMARY | 2024-05-21 21:37 | XMS_ITS | Encounter Summary ---
Author Organization [employer] Address [address] [facility] 7t [place] [address] Care Team Providers Care Target Network Analyst Name Role Phone Sol Kelli FORK LIFT TRUCK OPERATOR Primary Care Provider [phone] Encounter Details Date Type Department Care Team ([facility] st Contact Info) Description 05/13/2024 9:00 AM EST Office Visit [facility] [place] [address] [place] [address] Rinku Chappell MD [address] [place] [address] Influenza A (Primary Dx); Moderate persistent asthma [...] Ludivina Hussein is a 68 y.o. female. Financial Quantitative Analyst: Chadd SANDOVAL Ludivina was seen at [facility] 05/05 with 2 day h/o JÚNIOR sx. Had + rapid Flu A test. CXR read as normal. States that no meds were prescribed. She came to [facility] today because of ongoing dry cough, wheezing, [...] Description 06/16/2024 10:30 AM EDT Medication Management [address] [address] 07/18/2024 9:30 AM EDT Clinical Support [address] [address] Tammie Diaz RN documented as of this encounter Visit Diagnoses Diagnosis Influenza A- Primary Influenza with other respiratory manifestations Moderate persistent asthma with acute exacerbation documented in this encounter Additional Health Concerns Assessment Noted Time PHQ-9 Depression Total Score: 0 04/04/19 25 11:23 AM EST documented as of this encounter Care Teams Target Network Analyst Relationship Specialty Start Date End Date Kelli Horton FNP [address] [place] [address] PCP - General Family Medicine 05/20/22 documented as of this encounter
--- OUTSIDE RECORDS SUMMARY | 2024-05-21 21:38 | XMS_ITS | Encounter Summary ---
Author Organization [employer] Address [address] [facility] 7t [place] [address] Care Team Providers Care Synchronizer Name Role Phone [facility] Primary Care Provider [phone] Encounter Details Date Type Department Care Team (Late st Contact Info) Description 09/30/2022 Abstract [facility] [address] [place] [address] [place] [address] [address] Social History Tobacco Use Types Packs/Day Years [...] Description 06/16/2024 10:30 AM EDT Medication Management [address] [id number] 07/18/2024 9:30 AM EDT Clinical Support [address] [phone] Tammie Diaz RN documented as of this [...] documented as of this encounter Care Teams Synchronizer Relationship Specialty Start Date End Date Kelli Horton FNP [address] [place] [address] PCP - General Family Medicine 05/20/22 documented as of this encounter
--- OUTSIDE RECORDS SUMMARY | 2024-05-21 21:38 | XMS_ITS | Patient Health Record ---
Author Organization [facility] Address [address] [place] [address] Care Team Providers Care Machine Sign Writer Name Role Phone [facility] Primary Care Provider Unava ilable Jason Lora Unavailable [phone] ALLERGIES No Known Allergies RESULTS Component Value Reference Range Notes US abdomen comp w elastograp hy (Not yet reviewed by provider) Interpretation: Performing Lab: Notes/Report: [facility] [address] [place] [address] Ultrasound Report Signed Patient: Ludivina Hussein MR#: [id number] : 1955 Acct:[id number] Age/Sex: 68 / F ADM Date: 04/13/24 Loc: HO.US Attending Dr: Jason Lora MD Ordering Physician: Jason Lora MD Date of Service: 04/13/24 Procedure(s): US abdomen comp w elastography Accession Number(s): [id number] cc: Jason Lora MD; [facility] EXAMINATION: US ABDOMEN COMPLETE WITH LIVER ELASTOGRAPHY [...] by: Jason Lombardi MD 04/14/2024 07:42 AM [facility] Dictated By: Jason Lombardi MD Signed By: <Electronically signed by Jason Lombardi MD in OV> 04/14/24 0742 DD/ 1001 TD/TT: 04/13/24 1033 Documentation Consultant: REASON FOR REFERRAL No Information MEDICATIONS Medication [...] malignant neoplasm of colon (Z12.11) Active confirmed 652474256 Problem Other cirrhosis of liver (K74.69) Active confirmed 26235074 Problem Fatty liver (K76.0) Active confirmed 903024924 Problem History of hepatitis C (Z86.19) Active confirmed 18571868827265 Problem Chronic gastritis without bleeding, unspecified gastritis type (K29.50) Active confirmed 5595239 VITAL SIGNS Blood pressure diastolic 00 mm Hg 02/25/2024 Height 58 in 02/25/2024 Blood pressure systolic 00 mm Hg 02/25/2024 Weight 185 lbs 02/25/2024 BMI 38.66 kg/m2 02/25/2024 Encounters Encounter Location Date Provider Diagnosis [facility] [address] [place] [address] 02/25/2024 Jason Lora Other cirrhosis of liver K74.69 ; History of hepatitis C Z86.19 and Fatty liver K76.0 [facility] [address] [place] [address] 06/02/2023 Jason Lora [facility] [address] [place] [address] 07/02/2023 Jason Lora [facility] [address] [place] [address] 05/12/2024 Jason Lora ASSESSMENTS Encounter Date Diagnosis [...] 02/25/2022 LIVER PROFILE 02/25/2024 CBC w DIFF 07/03/2020 CBC w DIFF 02/25/2022 CBC w DIFF 02/25/2024 PROTHROMBIN TIME (PT, INR) 07/03/2020 ALPHA-FETOPROTEIN,TUMOR MARKER 2 ALPHA-FETOPROTEIN,TUMOR MARKER 4 ALPHA-FETOPROTEIN,TUMOR MARKER 3 ALPHA-FETOPROTEIN,TUMOR MARKER 3 ALPHA-FETOPROTEIN,TUMOR MARKER 2 ALPHA-FETOPROTEIN,TUMOR MARKER 4 ALPHA-FETOPROTEIN,TUMOR MARKER 1 ALPHA-FETOPROTEIN,TUMOR MARKER 7 HEPATITIS C VIRAL LOAD 02/25/2024 US ABD 07/03/2020 US ABD 03/12/2017 HCV LIVER FIBROSIS, FIBRO TEST 4 Prothrombin Time INR 02/25/2022 Prothrombin Time INR 02/26/2023 Prothrombin Time INR 02/25/2024 US abdomen comp w elastography 5 US abdomen comp w elastography 4 Future Test Test Name Order Date UPPER GI ENDOSCOPY 03/05/2018 COLONOSCOPY 03/05/2018 Next Appt Details Provider Name:Jason Talbot Lora , 02/23/2025 09:20:00 AM, [address], [address], [place], [address], Insurance Providers Payer Name Payer Address Payer Phone Subscriber Number Group Number Insured Name Patient Relationship to Insured Coverage Start Date Coverage End Date [facility] Claims [address] [address] [place] [address] [phone] [id number] LUDIVINA HUSSEIN Self - patient is the insured MEDICAID OF [facility] [address] [place] [phone] [id number] LUDIVINA HUSSEIN Self - patient is the [...] ursodiol 750 mg b.i.d. Asthma Anxiety Denies [place],CVA,renal disease Kidney stones Negative colonoscopy with Dr. Rodriguez in [place] Urinary incontinence Neg. screening colonoscopy in 04/2018 EGD in 04/2018 with erosive g astritis but neg. Hpylori, no varices, small to mod-sized hiatal hernia Surgical History Surgery Date(Month/Year) Tubal ligation Umbilical hernia surgery 03/2013-[facility]. [facility] Vocal cord polyps Bladder suspension by Dr Avelino lama in [place] for urinary incontinence on 09/19/13. Veins in her left leg Right knee replacement with Dr. Solorzano 2020
--- OUTSIDE RECORDS SUMMARY | 2024-05-21 21:38 | XMS_ITS | Encounter Summary ---
Author Organization [employer] Address [address] [facility] 7 [place] [address] Care Team Providers Care Customer Support Consultant Name Role Phone [facility] Primary Care Provider [phone] Reason for Visit * Reason Onset Date Comments Referral 12/11/2022 Encounter Details Date Type Department Care Team (Late Contact Info) Description 12/11/2022 Telephone [facility] [address] [place] [address] [facility] [address] [place] [address] Referral Social History Tobacco Use Types Packs/Day [...] and medication list to be faxed to [phone]. documented in this encounter Plan of Treatment Upcoming Encounters Date Type Department Care Team (Late st Contact Info) Description 06/16/2024 10:30 AM EDT Medication Management [address] [address] 07/18/2024 9:30 AM EDT Clinical Support [address] [address] Tammie Diaz, RN documented as of this encounter Visit Diagnoses Not on filedocumented in this encounter Additional Health Concerns Assessment Noted Time PHQ-9 Depression Total Score: 21 022 10:03 AM EST documented as of this encounter Care Teams Customer Support Consultant Relationship Specialty Start Date End Date Kelli Horton FNP [address] [place] [address] PCP - General Family Medicine 05/20/22 documented as of this encounter
--- OUTSIDE RECORDS SUMMARY | 2024-05-21 21:38 | XMS_ITS ---
Author Organization [facility] Address [address] [place] [address] Care Team Providers Care Die Maker Apprentice Name Role Phone [facility] Primary Care Provider UnaJason [place] Unavailable [phone] REASON FOR VISIT r/f request ursodiol MEDICATIONS Medication SIG (Take, Route, Fr equency, Duration) Notes Start Date End Date Status Magdiel 250 250 MG 3 tablets Orally Twi ce a day for 30 days 11/28/2013 Active Encounters Encounter Location Date Provider Diagnosis [facility] [address] [place] [address] 05/12/2024 Jason Lora PLAN OF TREATMENT Medication Medication Name Sig Start Date Stop Date Notes Magdiel 250 250 MG 3 tablets Orally Twice a day for 30 days 0 11/28/2013 Next Appt Details Provider Name:Jason Lora , 02/23/2025 09:20:00 AM, [address], [address], [place], [address],
--- OUTSIDE RECORDS SUMMARY | 2024-05-21 21:38 | XMS_ITS ---
Author Organization [facility] Address [address] [place] [address] Care Team Providers Care Voip Engineer Name Role Phone [facility] Primary Care Provider Unava Jason Sethi Unavailable [phone] MEDICATIONS Medication SIG (Take, Route, Fr equency, Duration) Notes Start Date End Date Status Omeprazole 20 MG 1 Orally Every morni ng for 30 day(s) 07/02/2022 Active Encounters Encounter Location Date Provider Diagnosis [facility] [address] [place] [address] 07/02/2023 Jason Lora PLAN OF TREATMENT Medication Medication Name Sig Start Date Stop Date Notes Omeprazole 20 MG 1 Orally Every morning for 30 day(s) 06/21 Next Appt Details Provider Name:Jason Lora , 02/23/2025 09:20:00 AM, [address] [facility], [address], [place], [address],
--- OUTSIDE RECORDS SUMMARY | 2024-05-21 21:38 | XMS_ITS | Clinical Summary ---
Author Organization [employer] Address [address] [facility] [address] [place] [address] Care Team Providers Care Underlay Stitcher Name Role Phone Kelli Horton CASE FOLDER Primary Care Provider [phone] Allergies Active Allergy Reactions Criticality Noted Date [...] Take 2 tablets by mouth at bedtime. 022 Active clonazePAM (KlonoPIN) 0.5 MG tablet TAKE [...] unspecified whether stage 3a or 3b CKD ([facility]) test blood sugar twice daily 100 strip 2 024 Active Trelegy Ellipta 200-62.5-25 MCG/ACT aerosol powder Take 1 puff by mouth Once daily. 025 Active lidocaine-prilo dony (Emla) 2.5-2.5 % cream Apply 1 Application. topically Once daily. 025 Active traZODone (Desyrel) 100 MG tablet Take 1 tablet by mouth at bedtime. 025 Active HYDROcodone-patricia taminophen (Alexandria) 5-325 MG tabletIndicatio ns:Chronic low back pain, [...] not trigger notification to Pharmacy)) HYDROcodone-patricia taminophen (Alexandria) 5-325 MG tabletIndicatio ns:Chronic low back pain, [...] follow up pelvic exam C-scope: Previously at [facility]. Date unknown. Will request records BMD: Routine age 67 Assessment & Plan (05/05/2023 8:28 PM EST): DEXA scan ordered RBBB 07/22/2022 Obstructive sleep apnea syndrome 03/21/2022 Overview (07/28/2022): ?? Has CPAP Chronic low back pain 03/12/2022 Overview (07/28/2022): ?? Hydrocodone t.i.d as needed. ?? Compliant with [employer] agreement Assessment & Plan (05/05/2023 8:15 PM EST): Continue hydrocodone as prescribed. Patient will bring tablets to pharmacy to determine if able to order prior formulation Declines chronic pain group at this time Follow as scheduled with [employer] Chronic pain of right knee 03/12/2022 Overview (07/28/2022): ?? Referred to PT for balance training 06/2022 Type 2 diabetes mellitus, [facility] long-term current use of insulin 10/01/2020 Overview (04/04/2024): Metformin monotherapy CKD stage 3 followed by nephrology Foot Exam: 03/2024 risk 0 Eye Exam: Followed by [facility] in [place] Statin: Yes ASA: No PATRICIA/ARB: Yes Encouraged [...] Overview (04/04/2024): Followed by DR. Lora at [facility] GI Hepatic steatosis, hx of chronic HCV [...] Problem Noted Date Diagnosed Date Resolved Date [place] eye disease of right eye 03/05/2023 03/05/2023 [...] Encounters Date Type Department Care Team Description 05/21/2024 Orders Only GENERIC EXTERNAL DATA DEPARTMENT Provider, Generic External Data 05/19/2024 Orders Only [facility] [address] [place] [phone] [facility] 05/13/2024 9:00 AM EST Office Visit [facility] [address] [place] [address] Rinku Chappell MD Influenza A (Primary Dx); Moderate persistent asthma with acute exacerbation 05/12/2024 Refill [facility] [place] [address] Kelli Horton FNP Chronic low back pain, unspecified back pain laterality, unspecified whether sciatica present 05/11/2024 Orders Only [facility] [place] [address] Feura BushKelli [facility] Obstructive sleep apnea syndrome (Primary Dx) 05/05/2024 Orders Only GENERIC EXTERNAL DATA DEPARTMENT Provider, Generic External Data 04/25/2024 10:00 AM EST Telemedicine [facility] [place] [address] Sada Johnston PharmD Benign essential hypertension (Primary Dx); Moderate persistent asthma with acute exacerbation 04/20/2024 9:30 AM EST Clinical Support [facility] [place] [address] Tammie Diaz RN Chronic low back pain, unspecified back pain laterality, unspecified whether sciatica present (Primary Dx) 04/20/2024 Travel 04/20/2024 Telephone [facility] [place] [address] Tammie Diaz RN Recommend [employer] Tier 2 04/13/2024 Orders Only [facility] External Provider, [facility] 04/04/2024 11:15 AM EST Office Visit [facility] [place] [address] Kelli Horton [facility] Type 2 diabetes mellitus with stage 3 chronic kidney disease, without long-term current use of insulin, unspecified whether stage 3a or 3b CKD (CMS/HCC) (Primary Dx); Left carpal tunnel syndrome; Oropharyngeal dysphagia; Obstructive sleep apnea syndrome 04/04/2024 Telephone [facility] [place] [address] Kelli Horton FNP 04/04/2024 Travel 03/29/[address] [place] [address] Kelli Horton FNP Results 03/15/2024 Telephone [facility] [address] [place] [address] Kelli Horton FNP Med Refill 03/15/2024 Refill [facility] [address] [place] [address] Feura BushKelli ren FNP Chronic low back pain, unspecified back pain laterality, unspecified whether sciatica present 03/07/2024 Telephone [facility] [address] [place], [place] [phone] Tammie Diaz, RN telephone call 03/04/2024 Refill [facility] [address] [place], [place] [phone] Kelli Horton FNP Type 2 diabetes mellitus with stage 3 chronic kidney disease, without long-term current use of insulin, unspecified whether stage 3a or 3b CKD (CMS/HCC) 03/04/2024 Refill [facility] [address] [place], [place] [phone] SolKelli ren FNP Type 2 diabetes mellitus with stage [...] Medication Management [facility] [address] [place] [phone] 07/18/2024 9:30 AM EDT Clinical Support [address] [address] Tammie Diaz, RN Health Maintenance Due Date [...] TROPONIN I Routine 05/21/2024 8:17 PM EST MAGNESIUM Routine 05/21/2024 8:17 PM EST BASIC METABOLIC PANEL Routine 05/21/2024 8:17 PM EST HEPATIC FUNCTION PANEL Routine 8:17 PM EST CBC WITH AUTO DIFFERENTIAL Routine 05/21/2024 8:17 PM EST PROTHROMBIN TIME-INR Routine 05/21/2024 8:17 PM EST SARS COV2/INFLUENZA A/B AND RSV RNA QL NAAT Routine 05/21/2024 8:17 PM EST LDCT LUNG SCREENING Routine 05/19/2024 4 :13 PM EST COMPREHENSIVE METABOLIC PANEL Routine 05/05/2024 [...] 3b CKD (CMS/HCC) HM COLONOSCOPY Routine 05/03/2018 [facility] HISTORICAL HPV MRNA E6/E7 Routine 03/03/2016 11:45 AM EST from Last 3 Months or Most Recently Relevant to Health Maintenance Results * XR Chest 2 Views (05/21/2024 9:21 PM EST) Only the most recent of2 resultswithin the time period is included. Anatomical Region Laterality Modality Chest Radiographic Lia ging 05/21/2024 9:21 PM EST Narrative 05/21/2024 9:23 PM EST ? [facility] ?[address] ?[place] [address] ?XRay Report ? Signed ? Patient: Ludivina Hussein ?MR#: [id number] ? : 1955 ?Acct:[id number] ? Age/Sex: 68 / F ?ADM Date: 05/21/24 ? Loc: HO.ED ? Attending Dr: ? Ordering Physician: Vane Garcia ?? Date of Service: 05/21/24 ?? Procedure(s): XR chest 2V ?? Accession Number(s): [id number] ? cc: Vane Garcia; Kelli Horton ? [...] by Tim Sr MD in OV> ? 05/21/242121 ? DD/ 20 ? TD/TT: 05/21/242120 ? Inbound Customer Service Representative: ? Procedure Note Marie Image - 05/21/2024 [address] [place] [address] XRay Report Signed Patient: Ludivina Hussein [facility]#: [id number] : 8Acct:[id number] Age/Sex: 68 / FADM Date: 05/21/24 Loc: HO.ED Attending Dr: Ordering Physician: Vane Garcia Date of Service: 05/21/24 Procedure(s): XR chest 2V Accession Number(s): [id number] cc: Vane Garcia; [facility] CLINICAL HISTORY: cp 2 view chest x-ray. [...] in OV> 05/21/242121 DD/ 20 TD/TT: 05/21/242120 Inbound Customer Service Representative: [facility] External Provider IMG XR PROCEDURES Edited Result - Final * High Sensitivity Troponin I (05/21/2024 8:17 PM EST) TROPONIN I HIGH SENSITIVITY <2.7 <3.5 - 17.0 ng/L [facility] Comment:The Rosas high sens itivity Troponin-I results should beused in conjunction with other diagnostic information suchas ECG, clinical observations and information, and patientsymptoms to aid in the diagnosis of HI. 05/21/2024 8:17 PM EST 05/21/2024 8:20 PM EST Generic External Data Provider LAB BLOOD ORDERAB LES Final Result Performing Organization Address [facility] de Phone Number [facility] [address] [place] [phone] * SARS-CoV-2 RNA, Influenza A/B, and RSV RNA, Ql NAAT (05/21/2024 8:17 PM EST) Only the most recent of2 resultswithin the time period is included. Pathologist [facility] Influenza A PCR NEGATIVE Negative [facility] Influenza B PCR NEGATIVE Negative [facility] Resp Syncy Virus RNA Qual PCR NEGATIVE Negative [facility] SARS COV2 PCR NEGATIVE Negative [facility] Comment:All test results mus t [...] use by authorized laboratories.Testing performed on the [employer] GeneXpert utilizingreal-time RT-PCR.All SARS CoV2 and positive influenza A/B results arereported to [facility]. 05/21/2024 8:17 PM EST 05/21/2024 8:20 PM EST Generic External Data Provider LAB MICROBIOLOGY - GENERAL ORDERABLES Final Result Performing Organization Address [facility] Co de Phone Number [facility] [address] [place] [phone] * (ABNORMAL) CBC auto differential (05/21/2024 8:17 PM EST) Only the most recent of2 resultswithin the time period is included. White Blood Count 8.2 4.8 - 10.8 X10*3/uL [facility] Red Blood Count 3.94(L) 4.20 - 5.50 X10*6/uL [facility] Hemoglobin 12.2 12.0 - 16.0 g/dl [facility] Hematocrit 34.9(L) 37.0 - 47.0 % [facility] Mean Corpuscular Volume 88.6 80.0 - 98.0 fL [facility] Mean Corpuscular Hemoglobin 31.0 27.0 - 33.0 pg [facility] Mean Corpuscular HGB Conc 35.0 31.0 - 35.0 g/dl [facility] Red Cell Distribution Width 12.0 11.0 - 16.0 % [facility] Platelet Count 276 160 - 400 X10*3/uL [facility] Mean Platelet Volume 8.8(L) 9.4 - 12.3 fL [facility] Neutrophils Percent Auto 57.0 45 - 73 % [facility] Imm Gran Pct Auto 0.2 0.0 - 0.4 % [facility] Lymphocytes Percent Auto 30.1 20 - 40 % [facility] Monocytes Percent Auto 6.7 2 - 11 % [facility] Eosinophils Percent Auto 5.6(H) 0 - 4 % [facility] Basophils Percent Auto 0.4 0 - 2 % [facility] NRBC Pct Auto 0.0 0.0 - 0.2 /100WBC [facility] Neutrophils Absolute Auto 4.7 2.0 - 8.3 x10*3/uL [facility] Imm Gran Abs Auto 0.02 0.00 - 0.03 X10*3/uL [facility] Lymphocytes Absolute Auto 2.5 1.2 - 4.9 X10*3/uL [facility] Monocytes Absolute Auto 0.6 0.1 - 1.2 X10*3/uL [facility] Eosinophils Absolute Auto 0.5(H) 0.0 - 0.4 X10*3/uL [facility] Basophils Absolute Auto 0.0 0.0 - 0.2 X10*3/uL [facility] NRBC Abs Auto 0.000 0.0 - 0.012 X10*3/uL [facility] 05/21/2024 8:17 PM EST 05/21/2024 8:20 PM EST us Generic External Data Provider LAB BLOOD ORDERAB LES Final Result Performing Organization Address City/[facility]/ZIP Co de Phone Number [facility] [address] [place] [phone] * (ABNORMAL) Prothrombin Time-INR (05/21/2024 8:17 PM EST) Prothrombin Time 10.7(L) 10.9 - 12.4 SEC [facility] INTERNATIONAL NORM RATIO 0.9 0.9 - 1.1 [facility] Comment:INTERNATIONAL NORMAL IZED RATIO (INR) [...] ORDERAB LES Final Result Performing Organization Address [facility] Co de Phone Number [facility] [address] [place] [phone] * Magnesium (05/21/2024 8:17 PM EST) Pathologist [facility] Magnesium 1.9 1.6 - 2.6 mg/dL [facility] 05/21/2024 8:17 PM EST 05/21/2024 8:20 PM EST us Generic External Data Provider LAB BLOOD ORDERAB LES Final Result Performing Organization Address City/[facility] Co de Phone Number [facility] [address] [place] [phone] * (ABNORMAL) Hepatic Function Panel (05/21/2024 8:17 PM EST) Bilirubin, Total 0.3 0.0 - 1.0 mg/dL [facility] Bilirubin, Direct 0.1 0.0 - 0.5 mg/dL [facility] Aspartate Amino Transferase 31 5 - 31 U/L [facility] Alanine Aminotransferase 40(H) 0 - 31 U/L [facility] Total Protein 7.2 6.5 - 8.0 g/dL [facility] Albumin Level 3.6 3.5 - 5.0 g/dL [facility] Alkaline Phosphatase 109 39 - 117 U/L [facility] 05/21/2024 8:17 PM EST 05/21/2024 8:20 PM EST us Generic External Data Provider LAB BLOOD ORDERAB LES Final Result Performing Organization Address City/State/[facility] Co de Phone Number [facility] [address] [place] [phone] * (ABNORMAL) Basic Metabolic Panel (05/21/2024 8:17 PM EST) Pathologist [facility] Sodium 140 135 - 145 mmol/L [facility] Potassium 4.2 3.3 - 5.1 mmol/L [facility] Chloride 105 96 - 108 mmol/L [facility] Carbon Dioxide 26 22 - 29 mmol/L [facility] Anion Gap 13 12 - 20 [facility] Urea Nitrogen (BUN) 16 9 - 16 mg/dL [facility] Creatinine, Serum 0.92 0.5 - 1.4 mg/dL [facility] Creatinine Clr Calc Pharmacy 56.1 [facility] Comment:Provided height and weight: 147.32 cm,86.4 kg.eGFR (calculated from the MDRD study equation) and eCrCl(calculated from the Cockcroft-Gault equation) are based ondifferent parameters and may not yield comparable results.If eCrCl result is absurd, please check patient'sheight/weight. Estimated Glomerular Filt Rate >60 [facility] Comment:Chronic Kidney Disea se: Estimated GFR < 60 mL/min/1.48a4Hnkfxo Kidney Disease: Estimated GFR < 15 mL/min/1.73m2 Glucose 147(H) 60 - 115 mg/dL [facility] Calcium 9.1 8.4 - 10.2 mg/dL [facility] 05/21/2024 8:17 PM EST 05/21/2024 8:20 PM EST us Generic External Data Provider LAB BLOOD ORDERAB LES Final Result [facility] [address] [place] [phone] * CT Lung Screening Low dose (05/19/2024 4:13 PM EST) Anatomical Region Laterality Modality Lung Computed Tomogra phy 05/19/2024 4:13 PM EST Narrative 05/19/2024 4:16 PM EST ? [facility] ?[address] ?[place] [address] ? CT Scan Report ? Signed ? Patient: Ludivina Hussein ?MR#: [id number] ? : 1955 ?Acct:[id number] ? Age/Sex: 68 / F ?ADM Date: 05/19/24 ? Loc: HO.CT ? Attending Dr: Chaparro Jeffers MD ? Ordering Physician: Chaparro Jeffers MD ?? Date of Service: 05/19/24 ?? Procedure(s): CT lung screening ?? Accession Number(s): [id number] ? cc: Chaparro Jeffers MD; Kelli Horton ? Report Number: ?? [id number]: Total DLP = ?? 62.00 mGy-cm ? [...] by Pan Cruz MD in OV> ? 05/19/24 1615 ? DD/ 1613 ? TD/TT: 05/19/24 1613 ? Inbound Customer Service Representative: ? Procedure Note Marie, Image - 05/19/[address] [address] [address] Scan Report Signed Patient: Ludivina Hussein#: [id number] : 8Acct:[id number] Age/Sex: 68 / FADM Date: 05/19/24 Loc: HO.CT Attending Dr: Chaparro Jeffers MD Ordering Physician: Chaparro Jeffers MD Date of Service: 05/19/24 Procedure(s): CT lung screening Accession Number(s): [id number] cc: Chaparro Jeffers MD; [facility] Report Number: [id number]: Total DLP = 62.00 mGy-cm CLINICAL HISTORY: [...] signed by Pan Cruz MD in OV> 05/19/241614 DD/ 161 TD/TT: 05/19/24 161 Inbound Customer Service Representative: [facility] External Provider IM CT PROCEDURES Final Result * (ABNORMAL) Comprehensive Metabolic Panel (05/05/2024 12:33 PM EST) Sodium 134(L) 135 - 145 mmol/L [facility] Potassium 3.4 3.3 - 5.1 mmol/L [facility] Chloride 99 96 - 108 mmol/L [facility] Carbon Dioxide 25 22 - 29 mmol/L [facility] Anion Gap 13 12 - 20 [facility] Urea Nitrogen (BUN) 16 9 - 16 mg/dL [facility] Creatinine, Serum 0.89 0.5 - 1.4 mg/dL [facility] Creatinine Clr Calc Pharmacy 57.0 [facility] Comment:Provided height and weight: 147.32 cm,84 kg.eGFR (calculated from the MDRD study equation) and eCrCl(calculated from the Cockcroft-Gault equation) are based ondifferent parameters and may not yield comparable results.If eCrCl result is absurd, please check patient'sheight/weight. Estimated Glomerular Filt Rate >60 [facility] Comment:Chronic Kidney Disea se: Estimated GFR < 60 mL/min/1.96k2Hwytgq Kidney Disease: Estimated GFR < 15 mL/min/1.73m2 Glucose 136(H) 60 - 115 mg/dL [facility] Calcium 9.1 8.4 - 10.2 mg/dL [facility] Bilirubin, Total 0.4 0.0 - 1.0 mg/dL [facility] Aspartate Amino Transferase 35(H) 5 - 31 U/L [facility] Alanine Aminotransferase 44(H) 0 - 31 U/L [facility] Total Protein 7.4 6.5 - 8.0 g/dL [facility] Albumin Level 3.8 3.5 - 5.0 g/dL [facility] Alkaline Phosphatase 85 39 - 117 U/L [facility] 05/05/2024 12:3 3 PM EST 05/05/2024 12:43 PM EST us Generic External Data Provider LAB BLOOD ORDERAB LES Final Result [facility] [address] [place] [phone] * POCT ANDRE-14 Urine Drug Screen (04/20/2024 9:13 AM EST) Opiate Screen, Urine Positive Urine Urine specimen obtained by clean catch procedure / Unknown 04/20/2024 9:13 AM EST Narrative Tammie Diaz RN - 04/20/2024 9:13 AM EST UTOX cup Lot#[id number] Exp. 12/15/25 Internal Pass Control [facility] CASE FOLDER POINT OF CARE TEST ENTER/EDIT ORDERABLES Final Result * US Abdomen Comp w elastography (04/13/2024 10:01 AM EST) Anatomical Region Laterality Modality Abdomen Ultrasound 04/13/2024 10:0 1 AM EST Narrative 04/14/2024 7:45 AM EST ? [facility] ?[address] [place] [address]. ?[place] [address] ? Ultrasound Report ? Signed ? Patient: Ludivina Hussein ?MR#: [id number] ? : 1955 ?Acct:[id number] ? Age/Sex: 68 / F ?ADM Date: 04/13/24 ? Loc: HO.US ? Attending Dr: Jason Lora MD ? Ordering Physician: Jason Lora MD ?? Date of Service: 04/13/24 ?? Procedure(s): US abdomen comp w elastography ?? Accession Number(s): [id number] ? cc: Jason Lora MD; Kelli Horton ? EXAMINATION: ??US ABDOMEN COMPLETE WITH LIVER [...] DD/ 1001 ? TD/TT: 04/13/24 1033 ? Inbound Customer Service Representative: ? Procedure Note Donotuseinterpreter, Image - 04/14/[address] [address] Ultrasound Report Signed Patient: Ludivina Hussein [facility]#: [id number] : 8Acct:[id number] Age/Sex: 68 / FADM Date: 04/13/24 Loc: HO.US Attending Dr: Jason Lora MD Ordering Physician: Jason Lora MD Date of Service: 04/13/24 Procedure(s): US abdomen comp w elastography Accession Number(s): [id number] cc: Jason Lora MD; [facility] EXAMINATION: US ABDOMEN COMPLETE WITH LIVER ELASTOGRAPHY [...] 04/14/24 0742 DD/ 1001 TD/TT: 04/13/24 1033 Inbound Customer Service Representative: [facility] External Provider IMG US PROCEDURES Final Result * (ABNORMAL) POCT HGB A1C (04/04/2024 11:24 AM EST) Hemoglobin A1C 6.2(A) 4.0 - 6.0 % QC Media Lot # [id number] Lot# Expiration Date Blood 04/04/2024 11:2 4 AM EST [facility] POINT OF CARE TEST ENTER/EDIT ORDERABLES Final Result * POCT Glucose (04/04/2024 11:24 AM EST) Glucose Blood, POC 116 60 - 200 mg/dL QC Media Lot # [id number] Lot# Expiration Date 172,025 Blood Capillary blood specimen / Unknown 04/04/2024 11:24 AM EST [facility] POINT OF CARE TEST ENTER/EDIT ORDERABLES Final Result * BI Mammogram Screening Tomosynthesis Bilateral (06/16/2023 10:15 AM EDT) Anatomical Region Laterality Modality Breast Bilateral Mammography 06/16/2023 10:1 5 AM EDT Narrative 07/02/2023 6:24 AM EDT ? [facility] ? [address] ?[place] [address] ? Mammography Report ? Signed ? Patient: Keenan,Ludivina N ?MR#: [id number] ? : 1955 ?Acct:[id number] ? Age/Sex: 67 / F ?ADM Date: 03/26/24 ? Loc: HO.MAMMO ? Attending Dr: Kelli Horton CASE FOLDER ? Ordering Physician: Kelli Horton CASE FOLDER ?Results: 1Nega ?? tive ? Date of Service: 06/16/23 ?Follow Up: 1 Year From Orig ?? inal Mammogram ? Procedure(s): MM tomosynthesis screening BI ?? Accession Number(s): [id number] ? cc: Kelli Horton CASE FOLDER ? EXAMINATION: ?? MM SCREENING DIGITAL BREAST [...] 07/02/23619 ? DD/ 1015 ? TD/TT: ? Inbound Customer Service Representative: ? Procedure Note Dononelteresanayeli, Image - 07/02/2023 [facility] [address] [place], [place] [address] Mammography Report Signed Patient: Ludivina Hussein NMR#: [id number] : 8Acct:[id number] Age/Sex: 67 / FADM Date: 06/16/23 Loc: PANKAJO Attending Dr: Kelli Horton CASE FOLDER Ordering Physician: Kelli Horton FNPResults: 1Nega tive Date of Service: 06/16/23Follow Up: 1 Year From Orig inal Mammogram Procedure(s): MM tomosynthesis screening BI Accession Number(s): [id number] cc: Kelli Horton CASE FOLDER EXAMINATION: MM SCREENING DIGITAL BREAST TOMOSYNTHESIS, BILATERAL [...] in OV> 07/02/23 0620 DD/ 1015 TD/TT: Inbound Customer Service Representative: [facility] CASE FOLDER IMG BI PROCEDURES Final Resul t * Lipid Panel, Standard (05/04/2023 8:32 AM EST) Triglycerides 118 <150 mg/dL [facility] Comment:Desirable Triglyceri de: less than 150 mg/dLBorderline High Triglyceride 150-199 mg/dLHigh Triglyceride: 200-499 mg/dLVery High Triglyceride: greater than or equal to 5OO mg/dL Cholesterol 128 <200 mg/dL [facility] Comment:Desirable Cholestero l: less than 200 mg/dLBorderline High Cholesterol: 200-239 mg/dLHigh Cholesterol: greater than 239 mg/dL LDL Cholesterol Calculated 59 <100 mg/dL [facility] Comment:Desirable LDL: less than 100 mg/dLNear Optimal/Above Optimal LDL: 110- 129 mg/dLBorderline High LDL: 130-159 mg/dLHigh LDL: 160-189 mg/dLVery High LDL: greater than or equal to 190 mg/dL HDL Cholesterol 46 >40 mg/dL [facility] Comment:Desirable HDL: great er than 40 mg/dL Note: This HDL assay may give artificially low results in patients with liver disease. Blood Venous blood specimen / Unknown 05/04/2023 8:32 AM EST 05/04/2023 11:34 AM EST [facility] LAB BLOOD ORDERABLES Final Re sult [facility] [address] [place] [phone] * Hm Colonoscopy (05/03/2018) Colonoscopy Normal Normal Narrative Madeleine Valle - 05/03/2018 Repeat in 10 years Historical Provider MD HEALTH MAINTENANCE Final Result * HPV mRNA E6/E7 (03/03/2016 11:45 AM EST) HPV mRNA E6/E7 Not Detected NOT DETECTED [facility] Comment: This test was performed using the APTIMA(R) HPV Assay ([employer] This assay detects E6/E7 viral messenger RNA (mRNA) from 14 high-risk HPV types (16,18,31,33,35,39,45,51, 52,56,58,59,66,68). For additional information please refer to: http://education.Effdon/faq/VBR288s1 (This link is being provided for informational/ educational purposes only.) Test Performed by [employer], [facility], [address] [place] [address] Leonardo Cano M.D., Ph.D., Director of Laboratories , [facility] [id number] Please note: ??Effective 12/03/2015, HPV testing will be performed using [employer]'s APTIMA test which targets mRNA. Detecting mRNA instead of DNA, as in older methods, offers significant improvements in specificity. 03/03/2016 11:4 5 AM EST Nandini Biswas NP HISTORICAL/NON ORDERABLE LABS Fi nal Result [facility] [address] from Last 3 Months or Most Recently Relevant to Health Maintenance Insurance Care Teams Underlay Stitcher Relationship Specialty Start Date End Date Kelli Horton FNP [address] [place] [id number] PCP - General Family Medicine 05/20/22
[2024-05-21 21:43] LABS: D Dimer High Sensitivity 246 NG/ML
--- NOTE | 2024-05-21 22:07 | ED.CHESTPAIN ---
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 Vaca HPI narrative: 68-year-old female presented with left-sided chest pain for 3 days, pain has been constant for 3 days with no radiation pain is worse with touching the left chest area, or taking a deep breath or move her left arm, no radiation to the pain, pain is worsening with coughing, no recent travel, no lower extremity swelling or tenderness, no history of pulmonary embolism or DVT. No fever, no chills. Related Data Home Medications ?Medication ?Instructions ?Recorded ?Confirmed albuterol sulfate 90 mcg/actuation 90 mcg inhalation Q4-6H PRN 03/21/20 03/28/24 aerosol inhaler Wheezing atorvastatin 20 mg tablet 20 mg PO DAILY 03/21/20 03/28/24 clonazepam 0.5 mg tablet 0.5 mg PO DAILY PRN Anxiety 03/21/20 03/28/24 omeprazole 20 mg capsule,delayed 20 mg PO QAM 03/21/20 03/28/24 release amlodipine 2.5 mg tablet 2.5 mg PO DAILY 04/03/20 03/28/24 fluticasone propionate 50 50 mcg intranasal BID 04/03/20 03/28/24 mcg/actuation nasal spray,suspension lisinopril 10 1 tab PO DAILY 04/03/20 03/28/24 mg-hydrochlorothiazide 12.5 mg tablet metformin 500 mg tablet 500 mg PO QAM 04/03/20 03/28/24 montelukast 10 mg tablet 10 mg PO DAILY 04/03/20 03/28/24 ursodiol 250 mg tablet 750 mg PO BID 04/03/20 03/28/24 vitamin E (dl, acetate) 180 mg 180 mg PO DAILY 11/22/20 03/28/24 (400 unit) capsule darifenacin 15 mg tablet,extended 15 mg PO QAM 06/24/21 03/28/24 release 24 hr naloxone 4 mg/actuation nasal 0 spray intranasal 06/24/21 03/28/24 spray (Narcan) trazodone 150 mg tablet 300 mg PO BEDTIME 06/24/21 03/28/24 albuterol sulfate 2.5 mg/3 mL mg inhalation 10/01/21 03/28/24 (0.083 %) solution for nebulization celecoxib 200 mg capsule 0 mg PO 07/14/22 03/28/24 loratadine 10 mg tablet 10 mg PO QAM 08/13/22 03/28/24 Previous Rx's ?Medication ?Instructions ?Recorded docusate sodium 100 mg capsule 100 mg PO BID 14 days #28 caps 11/24/20 acetaminophen 500 mg tablet 500 mg PO Q6H PRN fever or pain 02/16/22 (Tylenol Extra Strength) #14 tabs morphine 15 mg tablet,extended 15 mg PO Q12H pain severe 3 days 08/27/22 release (MS Contin) #6 tabs oxycodone-acetaminophen 5 mg-325 1 tab PO Q4-6H PRN pain (scale 08/27/22 mg tablet (Percocet) score 4-6) 7 days #42 tabs calcium 600 mg (as 1 tab PO QAM #30 tabs 02/02/23 carbonate)-vitamin D3 10 mcg (400 unit) tablet morphine 15 mg immediate release 15 mg PO Q6H PRN pain #14 tabs 08/26/23 tablet azithromycin 250 mg tablet See Rx Instructions PO .COMPLEX #6 01/16/24 tabs benzonatate 100 mg capsule 100 mg PO TID PRN cough #20 caps 01/16/24 fluticasone fur. 200 mcg-umeclid 1 inh inhalation DAILY #1 ea 03/29/24 62.5 mcg-vilant 25 mcg inhalat.powder (Trelegy Ellipta) Allergies Allergy/AdvReac Type Severity Reaction Status Date / Time No Known Allergies Allergy Verified 05/21/24 20:01 [No Known Allergies*] Review of Systems Review of Systems: All other systems are reviewed and are negative Constitutional: Reports as per HPI and Reports no additional constitutional complaints Eyes: Reports as per HPI and Reports no additional eye complaints Reports system reviewed and no additional complaints, except as documented Cardiovascular: Reports as per HPI and Reports no additional cardiovascular complaints Respiratory: Reports as per HPI and Reports no additional respiratory complaints Gastrointestinal: Reports as per HPI and Reports no additional gastrointestinal complaints Genitourinary: Reports no additional female genitourinary complaints Musculoskeletal: Reports no additional musculoskeletal complaints Skin/Breast: Reports system reviewed and no additional complaints, except as docu Psychiatric: Reports no additional psychiatric complaints Endocrine: Reports no additional endocrine complaints Hematologic/Lymphatic: Reports no additional hematologic/lymphatic complaints Allergic/Immunologic: Reports no additional allergic/immunologic complaints Reports system reviewed and no additional complaints, except as documented and Reports Abnormal speech present [facility] Past Medical History Medical History Primary osteoarthritis of left knee Osteoarthritis of hands, bilateral History of COVID-19 RBBB Hx of hepatitis C Asthma Anxiety Elevated cholesterol COVID-19 vaccine series completed JUSTIN (obstructive sleep apnea) Chronic kidney disease Depression Other intervertebral disc displacement, lumbar region Spondylosis of lumbar spine Lumbar facet arthropathy Bilateral primary osteoarthritis of knee Renal stones Essential hypertension Type 2 diabetes mellitus with complication, without long-term current use of insulin Vitamin D deficiency Other chronic pain History of renal calculi Surgical History History of total right knee replacement (TKR) Hx of dilation and curettage History of laryngoscopy Hx of umbilical hernia repair Hx of arthroscopy of left knee Hx of lithotripsy History of esophagogastroduodenoscopy (EGD) S/P repair of ventral hernia H/O abdominal hysterectomy H/O tubal ligation History of colonoscopy Family History Family History Father Diabetes mellitus HTN (hypertension) Mother No problems noted. 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 Housing: House Are you a primary acute care surgeon to a significant other at home: No Do you presently have visiting nurse or other home services: Yes Alcohol intake: former Year quit: 1995 Comment: medicated in pacu Patient Tobacco Use Status: Former Tobacco user Tobacco use type: Cigarette Years Smoked: 5+ Substance Use Type: Crack/Cocaine Advance Directives: No Advance Directives Information Provided: No Do you have a plan to hurt others: No Plan service: No Current occupational status: retired 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 Blood pressure elevated. Heart rate normal. Respiratory rate normal. Temperature normal. Oxygen saturation normal. Appearance: Alert. Oriented X3. No acute distress. Head: Normal external exam. Normocephalic. Atraumatic. No Marte signs noted. No raccoon eyes noted Eyes: PERRLA. EOMI. Conjunctiva and sclera normal. Eyelids normal. ENT: TM's Normal. Pharynx normal. Uvula midline. Moist mucous membranes. No trismus noted. No drooling noted. No muffled voice noted. Neck: Normal inspection. Neck supple. FROM. No adenopathy. Thyroid Normal. No meningeal signs. No neck mass noted. CVS: Normal heart rate and rhythm. Heart sound normal. No murmurs noted. Pulses normal throughout. Respiratory: No respiratory distress. Painless inspiration. Breath sounds normal. No wheezes/rales/rhonchi noted. Left-sided chest wall reproducible tenderness, no step-off, no deformity. No accessory muscle usage noted or decreased air movement noted. Abdomen: Soft and nontender. Bowel sounds normal in all 4 quadrants. No distention noted. No organomegaly noted. No visible injury noted. Back: No CVA tenderness. Full range of motion noted. Skin: Skin warm and dry. Normal skin color. Normal skin turgor. No rashes/lesions/lacerations noted. Extremities: No lower extremity edema. Extremities exhibit normal range of motion. Extremities nontender. Neuro: Oriented X 3. Cranial nerve exam: II-XII are grossly intact No motor deficit. No sensory deficit. Reflexes normal. Course Reevaluation(s) Reevaluation #1: Left-sided chest pain for 3 days pain is reproducible to the physical exam. CT angiogram of the chest showed no acute pulmonary embolism. Will reassure start NSAIDs for patient's symptoms. Time: 00:59 Medications Administered Discontinued Medications Generic Name Dose Route Start Last Admin Trade Name Freq PRN Reason Stop Dose Admin Ibuprofen 600 mg 05/21/24 22:29 05/21/24 22:42 Ibuprofen 600 Mg Tablet PO 05/21/24 22:30 600 mg ONCE ONE Administration Iohexol 65 ml 05/21/24 23:23 05/21/24 23:24 Iohexol 350 Mg/Ml 100 Ml Infus..Btl IV 05/21/24 23:24 65 ml ONCE ONE Administration Medical Decision Making Differential Diagnosis Differential Diagnoses: The differential diagnosis associated with the presentation includes (ACS, pulmonary embolism, pneumonia, pneumothorax, pleural effusion, CHF, severe anemia, electrolyte derangement, myofascial muscle pain.) Lab Data MDM Lab Attestation statement: I reviewed the patient's lab results. 05/21/24 20:17 05/21/24 20:17 Labs: Lab Results 05/21/24 05/21/24 Range/Units 20:17 22:48 WBC 8.2 (4.8-10.8) X10*3/uL RBC 3.94 L (4.20-5.50) X10*6/uL Hgb 12.2 (12.0-16.0) g/dl Hct 34.9 L (37.0-47.0) % MCV 88.6 (80.0-98.0) fL MCH 31.0 (27.0-33.0) pg MCHC 35.0 (31.0-35.0) g/dl RDW 12.0 (11.0-16.0) % Plt Count 276 D (160-400) X10*3/uL MPV 8.8 L (9.4-12.3) fL Immature Gran % (Auto) 0.2 (0.0-0.4) % Neut % (Auto) 57.0 (45-73) % Lymph % (Auto) 30.1 (20-40) % [place] % (Auto) 6.7 (2-11) % Eos % (Auto) 5.6 H (0-4) % Baso % (Auto) 0.4 (0-2) % Lymph # (Auto) 2.5 (1.2-4.9) X10*3/uL [place] # (Auto) 0.6 (0.1-1.2) X10*3/uL Eos # (Auto) 0.5 H (0.0-0.4) X10*3/uL Baso # (Auto) 0.0 (0.0-0.2) X10*3/uL Abs Immat Gran (auto) 0.02 (0.00-0.03) X10*3/uL Absolute Neuts (auto) 4.7 (2.0-8.3) x10*3/uL Absolute Nucleated RBC 0.000 (0.0-0.012) X10*3/uL Nucleated RBC % (auto) 0.0 (0.0-0.2) /100WBC PT 10.7 L (10.9-12.4) SEC INR 0.9 (0.9-1.1) D-Dimer High Sensitivty 246 NG/ML Sodium 140 (135-145) mmol/L Potassium 4.2 D (3.3-5.1) mmol/L Chloride 105 (96-108) mmol/L Carbon Dioxide 26 (22-29) mmol/L Anion Gap 13 (12-20) BUN 16 (9-16) mg/dL Creatinine 0.92 (0.5-1.4) mg/dL Estim Creat Clear Calc 56.1 Estimated GFR > 60 Random Glucose 147 H (60-115) mg/dL Calcium 9.1 (8.4-10.2) mg/dL Magnesium 1.9 (1.6-2.6) mg/dL Total Bilirubin 0.3 (0.0-1.0) mg/dL Direct Bilirubin 0.1 (0.0-0.5) mg/dL AST 31 (5-31) U/L ALT 40 H (0-31) U/L Alkaline Phosphatase 109 (39-117) U/L Troponin I High Sens < 2.7 < 2.7 (<3.5-17.0) ng/L Total Protein 7.2 (6.5-8.0) g/dL Albumin 3.6 (3.5-5.0) g/dL Influenza Type A (PCR) NEGATIVE (Negative) Influenza Type B (PCR) NEGATIVE (Negative) RSV RNA Qual (PCR) NEGATIVE (Negative) SARS-CoV-2 RNA (RT-PCR) NEGATIVE (Negative) Independent Interpretation I performed an independent interpretation of an: Plain X-Ray (Chest: No actual pathology) and CT Scan (CT angio of the chest: Pulmonary embolism.) Radiology Impression Discussion of test interpretation with radiology: I have reviewed the radiologist's reading. Discharge Plan Discharge Clinical Impression: Anterior chest wall pain Patient Disposition: Home, Self-Care Instructions: Chest Wall Pain (ED) Additional Instructions: Take ibuprofen 200 mg tablet every 6 hours if needed for pain. Prescriptions: No Action calcium carbonate-vitamin D3 600 mg-10 mcg (400 unit) tablet 1 tab PO QAM Qty: 30 2RF vitamin E (dl, acetate) 180 mg (400 unit) capsule 180 mg PO DAILY docusate sodium 100 mg Capsule 100 mg PO BID 14 Days Qty: 28 0RF acetaminophen [Tylenol Extra Strength] 500 mg tablet 500 mg PO Q6H PRN (Reason: fever or pain) Qty: 14 0RF morphine 15 mg tablet 15 mg PO Q6H PRN (Reason: pain) Qty: 14 0RF Rx Instructions: Patient may request partial fill; Partial Fill upon patient request. azithromycin 250 mg tablet See Rx Instructions .ROUTE .COMPLEX Qty: 6 0RF Rx Instructions: For 250 mg dose pack: take 500 mg today (day 1), then 250 mg for 4 days (days 2-5) benzonatate 100 mg capsule 100 mg PO TID PRN (Reason: cough) Qty: 20 0RF oxycodone-acetaminophen [Percocet] 5-325 mg tablet 1 tab PO Q4-6H PRN (Reason: pain (scale score 4-6)) 7 Days Qty: 42 0RF Rx Instructions: Partial Fill upon patient request. morphine [MS Contin] 15 mg tablet extended release 15 mg PO Q12H 3 Days Qty: 6 0RF Rx Instructions: Partial Fill upon patient request. lisinopril-hydrochlorothiazide 10-12.5 mg tablet 1 tab PO DAILY amlodipine 2.5 mg tablet 2.5 mg PO DAILY metformin 500 mg tablet 500 mg PO QAM fluticasone propionate 50 mcg/actuation spray,suspension 50 mcg intranasal BID montelukast 10 mg tablet 10 mg PO DAILY ursodiol 250 mg tablet 750 mg PO BID albuterol sulfate 90 mcg/actuation HFA aerosol inhaler 90 mcg inhalation Q4-6H PRN (Reason: Wheezing) clonazepam 0.5 mg tablet 0.5 mg PO DAILY PRN (Reason: Anxiety) atorvastatin 20 mg tablet 20 mg PO DAILY omeprazole 20 mg capsule,delayed release(DR/EC) 20 mg PO QAM naloxone [Narcan] 4 mg/actuation spray,non-aerosol 0 spray intranasal darifenacin 15 mg tablet extended release 24 hr 15 mg PO QAM trazodone 150 mg tablet 300 mg PO BEDTIME albuterol sulfate 2.5 mg /3 mL (0.083 %) solution for nebulization inhalation celecoxib 200 mg capsule 0 mg PO Trelegy Ellipta 200-62.5-25 mcg blister with device 1 inh inhalation DAILY Qty: 1 6RF loratadine 10 mg tablet 10 mg PO QAM Referrals: Kelli Horton, [employer]ANCIAL [employer]STIT[employer] VICE PRESIDENT [Primary Care Provider] - Print Language: Martiniquais
[2024-05-21 22:21] VITALS: BP 101/38; PULSE 56; RESP 20; TEMP 36.6; O2SAT 98
[2024-05-21] MEDS: Ibuprofen 600 MG TABLET PO (22:42)
[2024-05-21 23:16] LABS: Troponin-I High Sensitivity < 2.7 ng/L (<3.5-17.0)
[2024-05-21] MEDS: iohexoL 350 MG/ML 100 ML INFUS..BTL 65 ML IV (23:24)
[2024-05-22 00:49] VITALS: BP 111/49; PULSE 56; RESP 14; TEMP 36.7; O2SAT 97
[2024-05-22 01:10] VITALS: BP 111/49; PULSE 56; RESP 14; TEMP 36.7; O2SAT 97
== END 2024-05-22 01:10 | disposition home or self-care (01) ==
PROVIDERS: Physician Assistant; Emergency Provider Emergency Medicine; PCP Registered Nurse
DX: R07.89 Other chest pain (principal); E11.9 Type 2 diabetes mellitus without complications; E78.5 Hyperlipidemia, unspecified; Z87.891 Personal history of nicotine dependence; Z03.818 Encounter for observation for suspected exposure to other biological agents ruled out; Z79.899 Other long term (current) drug therapy; Z79.84 Long term (current) use of oral hypoglycemic drugs
CPT/HCPCS: 0241U; 36415; 71046; 71275; 80048; 80076; 83735; 84484; 85025; 85379; 85610; 93005; 99284; Q9967

== ENCOUNTER → 2024-05-21 19:50 | Outpatient (BNV) | payer OTHER, SELFPAY | PROVIDERS: Emergency Provider Emergency Medicine; PCP Registered Nurse; Visit Provider Internal Medicine Cardiovascular Disease | DX: I45.10 Unspecified right bundle-branch block (principal) | CPT/HCPCS: 93010 ==

== ENCOUNTER → 2024-05-21 19:58 | Outpatient (BNV) | payer OTHER, SELFPAY | PROVIDERS: Emergency Provider Emergency Medicine; PCP Registered Nurse; Visit Provider Radiology Diagnostic Radiology | DX: R07.9 Chest pain, unspecified (principal) | CPT/HCPCS: 71046; 71275 ==

== ENCOUNTER 2024-06-15 12:44 | Outpatient (AMB) | payer OTHER, SELFPAY ==
[2024-06-15 13:03] VITALS: BP 105/50; PULSE 88; O2SAT 95; BMI 41.4
--- NOTE | 2024-06-15 13:03 | MHC.OFFVIS ---
Vital Signs 06/15/24 13:03 Height 4 ft 10 in Weight 198 lb BMI 41.4 BP 105/50 L Blood Pressure Location Lt brachial Position Sitting Pulse 88 Pulse Source Doppler Pulse Oximetry (%) 95 Oxygen Delivery Method Room Air Intake Visit Reasons: asthma Professional Development Instructor Required: Yes Professional Development Instructor Name: Veronica ChisholmJannetShannanJannetDahiana Allergies No Known Allergies [No Known Allergies*] Allergy (Verified 06/15/24 13:09) HPI HPI asthma: Details: 68-year-old lady, former greater than 40 pack-year smoker, quit 2021, also with underlying history of asthma since childhood referred for evaluation of her pulmonary concerns. Patient states that she has been using Advair and albuterol MDI with suboptimal control of her asthma and dyspnea on exertion symptoms. She denies prior family history of lung disease. She denies exposure to industrial dusts. Patient does complain of environmental allergies. She also carries diagnosis of obstructive sleep apnea and has CPAP machine, however she has not had supplies for it for the last 4 years. After the last office visit patient continued on trilogy and albuterol MDI/nebs with good control of her underlying symptoms. She denies recent exacerbations. She did complete follow-up CT chest that did not show changes in underlying pulmonary nodules. [facility] Medical History Primary osteoarthritis of left knee Osteoarthritis of hands, bilateral History of COVID-19 RBBB Hx of hepatitis C Asthma Anxiety Elevated cholesterol COVID-19 vaccine series completed JUSTIN (obstructive sleep apnea) Chronic kidney disease Depression Other intervertebral disc displacement, lumbar region Spondylosis of lumbar spine Lumbar facet arthropathy Bilateral primary osteoarthritis of knee Renal stones Essential hypertension Type 2 diabetes mellitus with complication, without long-term current use of insulin Vitamin D deficiency Other chronic pain History of renal calculi Surgical History History of total right knee replacement (TKR) Hx of dilation and curettage History of laryngoscopy Hx of umbilical hernia repair Hx of arthroscopy of left knee Hx of lithotripsy History of esophagogastroduodenoscopy (EGD) S/P repair of ventral hernia H/O abdominal hysterectomy H/O tubal ligation History of colonoscopy Family History Father Diabetes mellitus HTN (hypertension) Mother No problems noted. 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 Review of Systems Const Denies daytime sleepiness, Denies excessive sweating, Denies fatigue, Denies fever(s), Denies lethargy, Denies malaise, Denies night sweats, Denies snoring and Denies weight loss Eyes Denies blurry vision and Denies itchy eyes ENT Denies nasal congestion, Denies post nasal drip, Denies sinus pain, Denies sinus pressure and Denies other ( Thrush) Card Denies chest pain, Denies pedal edema, Denies dyspnea, Denies orthopnea and Denies paroxysmal nocturnal dyspnea Resp Denies cough, Denies hemoptysis, Denies excessive phlegm production, Denies dyspnea, Denies snoring and Denies wheezing GI Denies abdominal pain and Denies heartburn Musc Denies myalgias, Denies arthralgias and Denies joint swelling Skin/Breast Denies rash Neuro Denies memory loss and Denies seizure-like activity Psych Denies abnormal sleep pattern, Denies anxiety and Denies memory loss Endo Denies excessive sweating, Denies fatigue and Denies heat intolerance Brandon/Lymph Denies easy bruising Aller/Immun Denies itchy eyes, Denies seasonal rhinorrhea and Denies wheezing Physical Exam Vital Signs: Last Vital Signs Pulse 88 06/15/24 13:03 BP 105/50 L 06/15/24 13:03 Pulse Ox 95 06/15/24 13:03 Oxygen Delivery Method Room Air 06/15/24 13:03 BMI result Body Mass Index 41.4 Const General: no acute distress and alert Nutritional Appearance: not obese Orientation/consciousness: Other orientation findings ( oriented) HEENT Head: Yes atraumatic Eyes General: appearance normal, both eyes and all related structures Sclerae: sclerae normal EOM: EOMs intact bilaterally Neck Neck: Yes supple Lymphatic: no lymphadenopathy noted Resp Effort & Inspection: normal respiratory effort and no use of accessory muscles Auscultation: clear to auscultation bilaterally Cardio Rate: regular rate Rhythm: regular rhythm Heart sounds: no gallops, no murmurs and no rubs Skin General skin exam: other ( warm) Extrem General: No clubbing, No cyanosis and No edema Assessment & Plan Assessment & Plan (1) Asthma-COPD overlap syndrome: Code(s): J44.89 - Other specified chronic obstructive pulmonary disease Category: Medical Plan: Well controlled on current regimen of trilogy, albuterol MDI, and nebs. Continue current regimen. (2) JUSTIN (obstructive sleep apnea): Code(s): G47.33 - Obstructive sleep apnea (adult) (pediatric) Category: Medical Plan: Controlled current CPAP therapy. Continue CPAP therapy. (3) Personal history of nicotine dependence: Code(s): Z87.891 - Personal history of nicotine dependence Category: Medical Plan: Results of CT chest from May of 2024 reviewed, no worrisome nodules at this time. Continue with yearly screening, next in May of 2025. Orders: Orders CT lung screening 06/05/24 Z87.891 - Personal history of nicotine dependence Coding Level of Care Code Est Pt Level 4 (42534) Complex EM visit Add On G2211 Diagnoses Asthma-COPD overlap syndrome J44.89 JUSTIN (obstructive sleep apnea) G47.33 Personal history of nicotine dependence Z87.891
--- OUTSIDE RECORDS SUMMARY | 2024-06-15 15:03 | XMS_ITS | Continuity of Care Document ---
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 Name Role Phone SolKelli ren NP Primary Care Physician Encounter [facility] [id number] Date(s): 03/14/24 - 05/26/24 [facility] [employer] [facility] [address] [place] [address], 4th [place] [address]- Attending Physician: Tracy Hernandez MD Admitting Physician: Tracy Hernandez MD Referring Physician: Kelli Horton NP Encounter Type: Pre-OutPatient One Time Allergies, Adverse Reactions, Alerts No Known Allergies [...] Refills, Maintenance, 04/08/22 9:09:00 AM EST, Aerosol, [facility], 2 puffs Inhalation 2 times [...] AM, # 30 tablet, 0 Refills, Maintenance, 05/26/24 12:14:00 PM EST, [facility], 147.32, cm, 01/28/23 10:38:00 EST, Height Start Date: 05/26/24 Status: Ordered Quantity: 30.0 Unit: tablet Repeat number: 1 Diabetic Tuss = 100 mg, By Mouth, [...] 1:56:00 PM EST, Route to Pharmacy Electronically, [facility], 147.32, cm, 01/28/23 10:38:00 EST, [...] AM EDT, Aerosol, Route to Pharmacy Electronically, [id number], [facility] - Ho Start Date: 12/20/18 Status: Ordered Quantity: 8.5 Unit: g Repeat number: 1 Spiriva Respimat 1.25 mcg/inh inhalation aerosol 2 puffs, Inhalation, Daily, j44.9, # 1 each, 6 Refills, Maintenance, 02/27/22 7:09:00 PM EST, Aerosol, [facility] Start Date: 02/27/22 Status: Ordered [...] Hydrocodone t.i.d as needed. ?? Compliant with BOX ICER agreement 3Outside Source Comment: Overview: ?? Followed by DR. Lora at [facility] ?? S/t JOSHUA [...] Exam: Followed [facility] [place] Lipid panel: 03/2022 WN ASCVD: LDL < 70 Statin: Yes ASA: No PATRICIA/ARB: Yes Encouraged regular aerobic exercise for improved glycemic control Encouraged daily foot checks Encouraged lean protein snacks and to avoid foods high in sugar and simple carbohydrates Treatment Goals: [id number]: <7% FBG goal: <130 2 hour post [...] Care Nurse Name: Scott Christine RN Position: [facility] RN Member Role: Primary Care Nurse Name: Kelli Hortno NP Position: Reference Physician Member Role: PCP Address: [address] [place] [address] Telecom: Care Team Related Persons Name: ENRIQUE MAN Insurance Providers Guarantor name: TRUPTI MAGUIRE Health Plan Information #: 1 Payer: NA Member Number: [id number] Policy Number: NA Group Number: NA Health Plan Information #: 2 Payer: NA Member Number: [id number] Policy Number: NA Group Number: NA
--- OUTSIDE RECORDS SUMMARY | 2024-06-15 15:03 | XMS_ITS | Clinical Summary ---
Author Organization [facility] Address [address] [place] [address] Phone Care Team Providers Care Energy Operations Vice President Name Role Phone Kelli Horton Primary Care Provider [phone] Allergies Active Allergy Reactions Criticality Noted Date [...] up pelvic exam C-scope: [place] [facility] Date unknown BMD: Routine age 67 Right bundle-branch block 07/22/20222022 Obstructive sleep apnea syndrome 03/21/2022 02/24/2023 Overview (02/24/2023): ?? Has CPAP Chronic low back pain 03/12/2022 02/24/2023 Overview (02/24/2023): ?? Hydrocodone t.i.d as needed. ?? Compliant with P[employer] agreement Pain of knee region 03/12/2022 02/24/2023 [...] Exam: Followed by [facility] in [place] Lipid panel: 03/2022 WNL ASCVD: LDL < [...] Visit [facility] [address] [place] [phone] Danny Mahoney MD [address] [phone] Health Maintenance Due Date Last Done Comments [...] 04/22/2023, 03/27/2017, 12/31/2007 Insurance [place] [place] [address] ([id number]) [place] [address] ([id number]) Care Teams Energy Operations Vice President Relationship Specialty Start Date End Date [facility] [address] [place] [address] PCP - General 11/26/23
--- OUTSIDE RECORDS SUMMARY | 2024-06-15 15:03 | XMS_ITS | Encounter Summary ---
Author Organization [facility] Address [address] [place] [address] Phone Care Team Providers Care Stock Chaser Name Role Phone [facility] Primary Care Provider [phone] Encounter Details Date Type Department Care Team (Late Contact Info) Description 12/20/2021 Documentation Only [facility] [place], [address] [place] [address] Shaun Morales PA Social History [...] Visit [facility] [address] [place] [address] Danny Mahoney MD [address] [phone] documented as of this encounter Visit Diagnoses Not on filedocumented in this encounter Care Teams Stock Chaser Relationship Specialty Start Date End Date Sol, [place] [address] [place], [place] [phone] PCP - General 11/26/23 documented as of this encounter
--- OUTSIDE RECORDS SUMMARY | 2024-06-15 15:03 | XMS_ITS | Encounter Summary ---
Author Organization [facility] Address [address] [place] [address] Phone Care Team Providers Care Manager Intelligence Name Role Phone [facility] Primary Care Provider [phone] Encounter Details Date Type Department Care Team (Late Contact Info) Description 12/23/2021 Documentation Only [facility] [place], [address] [place] [address] Shaun Morales PA Social History [...] Visit [facility] [address] [place] [address] Danny Mahoney MD [address] [phone] documented as of this encounter Visit Diagnoses Not on filedocumented in this encounter Care Teams Manager Intelligence Relationship Specialty Start Date End Date Sol, Kelli [address] [place], [place] [phone] PCP - General 11/26/23 documented as of this encounter
--- OUTSIDE RECORDS SUMMARY | 2024-06-15 15:03 | XMS_ITS | Encounter Summary ---
Author Organization [facility] Address [address] [place] [address] Phone Care Team Providers Care Fiscal Accountant Name Role Phone [facility] Primary Care Provider [phone] Encounter Details Date Type Department Care Team (Late Contact Info) Description 12/10/2021 Documentation Only [facility] [place], [address] [place] [address] Shaun Morales PA Social History [...] Visit [facility] [address] [place] [address] Danny Mahoney MD [address] [phone] documented as of this encounter Visit Diagnoses Not on filedocumented in this encounter Care Teams Fiscal Accountant Relationship Specialty Start Date End Date Sol, Kleli [address] [place], [place] [phone] PCP - General 11/26/23 documented as of this encounter
--- OUTSIDE RECORDS SUMMARY | 2024-06-15 15:03 | XMS_ITS ---
Author Organization [facility] Address [address] [place] [address] Care Team Providers Care Baby Registry Sales Consultant Name Role Phone [facility] Primary Care Provider Shivani kellogg Jason Lora Unavailable [phone] Allergies No Known Allergies REASON FOR VISIT Patient presents today for a fatty liver,cirrhosis Medications Medication SIG (Take, Route, Frequency, Duration) Notes [...] tablet Orally Twic e a day Active Social History Alcohol Screen Question Answer Notes Did you [...] Never (0 point) Points 1 Interpretation Negative Section Notes: Nonsmoker, nondrinker Vital Signs Blood pressure systolic 00 mm Hg 02/25/20 24 Blood pressure diastolic 00 mm Hg 024 Height 58 in 02/25/2024 Weight 185 lbs 02/25/2024 BMI 38.66 kg/m2 02/25/2024 Encounters Encounter Location Date Provider Diagnosis [facility] [address] [place] [address] 02/25/2024 Jason Lora Other cirrhosis of liver K74.69 ; History of hepatitis C Z86.19 and Fatty liver K76.0 Assessments Encounter Date Diagnosis (ICD Code) Assessment Notes Treatment Notes Treatment Clinical Notes Section Notes 02/25/2024 Other cirrhosis of liver (ICD-10 - K74.69) Overall, Ludivina appears quite well and does not show any signs nor have any symptoms Of decompensating liver disease. I did advise her to continue her current medical regimen of the ursodiol. I shall check a followup abdominal ultrasound and the below laboratories in regard to the chronic liver disease. She will also continue her daily omeprazole for her history of reflux. We did review that she will be due for a followup screening colonoscopy in 2028 given her last exam being negative in 2018 and not having any family history of colorectal cancer. If things remain well I have advised her to see me in one year for a followup visit. I advised her to contact me in the interim if she has any problems or questions I can be of assistance with. Ludivina was comfortable with this plan. Thank you again for allowing me to participate in Ludivina's care. I shall continue to keep you advised of her progress. 02/25/2024 History of hepatitis C (ICD-10 - Z86.19) Overall, Ludivina appears quite well and does not show any signs nor have any symptoms Of decompensating liver disease. I did advise her to continue her current medical regimen of the ursodiol. I shall check a followup abdominal ultrasound and the below laboratories in regard to the chronic liver disease. She will also continue her daily omeprazole for her history of reflux. We did review that she will be due for a followup screening colonoscopy in 2028 given her last exam being negative in 2019 and not having any family history of colorectal cancer. If things remain well I have advised her to see me in one year for a followup visit. I advised her to contact me in the interim if she has any problems or questions I can be of assistance with. Ludivina was comfortable with this plan. Thank you again for allowing me to participate in Ludivina's care. I shall continue to keep you advised of her progress. 02/25/2024 Fatty liver (ICD-10 - K76.0) Overall, Ludivina appears quite well and does not show any signs nor have any symptoms Of decompensating liver disease. I did advise her to continue her current medical regimen of the ursodiol. I shall check a followup abdominal ultrasound and the below laboratories in regard to the chronic liver disease. She will also continue her daily omeprazole for her history of reflux. We did review that she will be due for a followup screening colonoscopy in 2028 given her last exam being negative in 2019 and not having any family history of colorectal cancer. If things remain well I have advised her to see me in one year for a followup visit. I advised her to contact me in the interim if she has any problems or questions I can be of assistance with. Ludivina was comfortable with this plan. Thank you again for allowing me to participate in Ludivina's care. I shall continue to keep you advised of her progress. Plan Of Treatment Pending Test Test Name Order Date LIVER PROFILE 02/25/2024 CBC w DIFF 02/25/2024 ALPHA-FETOPROTEIN,TUMOR MARKER 4 HEPATITIS C VIRAL LOAD 02/25/2024 HCV LIVER FIBROSIS, FIBRO TEST 4 Prothrombin Time INR 02/25/2024 US abdomen comp w elastography 4 Next Appt Details Follow Up: 1 Year, Reason: Provider Name:Jason Lora , 02/23/2025 09:20:00 AM, [address], [address], [place], [address], Progress Notes * LUDIVINA MAGUIRE NDOB:1955 ( 68 yo F)Acc No.[id number]:02/25/2024 Progress Notes Patient:?LUDIVINA MAGUIRE N Provider:?Jason Lora MD :1955???Age:68 Y???Sex:Female D ate:02/25/2024 Address:[address] [place] [address], [facility] Pcp:ALYSSA Nascimento Subjective: * Chief Complaints: * ???Patient presents today fo r a fatty liver,cirrhosis * HPI: ???incontinence:? I saw Ludivina in followup today in regard to her chronic liver disease in relation to previous chronic hepatitis C and fatty liver. ?I last saw Ludivina in February of 2023. Since that time she reports that she has been feeling well. She is continued on her ursodiol 750 mg b.i.d. for the underlying fatty liver. She enjoys a good appetite and denies any significant heartburn or dysphagia on her daily omeprazole. She denies any early satiety, nausea, nor vomiting. She denies any abdominal pain, jaundice, nor unintentional weight loss. She denies any fatigue, pruritus, increasing abdominal girth, or edema. Her bowel movements are regular and she denies any melena or hematochezia. She denies any known family history of colorectal cancer. ?Laboratories in December revealed a normal CBC with platelet count, normal chemistries and renal function, and a normal liver profile. * ROS:?General/Constitutional:?Change in appetite?denies.?Chills?denies.?Fatigue?denies.?Ophthalmologic:?Patient denies? Negative..?ENT:?Patient denies?Negative..?Respiratory:?Patient denies?No coughing/hemoptysis..?Cardiovascular:?Patient denies? No chest pain/orthopnea..?Gastrointestinal:?Comments?See HPI for details.?Genitourinary:?Patient denies? No dysuria/hematuria..?Musculoskeletal:?Patient denies? No specific arthralgias/myalgias..?Skin:?Patient denies?No rash/pruritus..?Neurologic:?Patient denies? No headaches/seizures..?Psychiatric:?Patient denies?Negative..? * Medical History:? * Surgical History:?Tubal liga tion Umbilical hernia surgery 03/2013-Dr. White Vocal cord polyps Bladder suspension by Dr Hernandez in [place] for urinary incontinence on 09/19/13. Veins in her left leg Right knee replacement with Dr. Solorzano 2020 * Hospitalization/Major Diagno stic Procedure:?No Hospitalization History. * Family History:?Father: dece ased.?Mother: alive 92 yrs, diagnosed with Diabetes.?Siblings: alive 67 yrs, brother with liver disease, heavy drinkerThe patient;s sister has diabetes, diagnosed with Diabetes.? No GI Malignancy. * Social History:?Tobacco Use:?Tobacco Use/Smoking?Are you a: nonsmoker.?Drugs/Alcohol:?Alcohol Screen?Did you have a drink containing alcohol in the past year??Yes,?How often did you have a drink containing alcohol in the past year??Monthly or less (1 point), How many drinks did you have on a typical day when you were drinking in the past year??1 or 2 drinks (0 point),?How often did you have 6 or more drinks on one occasion in the past year??Never (0 point),?Points?1,?Interpretation?Negative.?Miscellaneous:?Marital status: single. Occupation: unemployed. ???Nonsmoker, nondrinker. * Medications:?TakingmetFORMIN HCl 500mg Singulair 10mg glipiZIDE XL 5mg Flovent HFA 12mg Vitamin D 1000unit Calcium 600 + D 600mg HYDROcodone-Acetaminophen 5-500 MG Capsule 1 capsule as needed Orally every 6 hrsoxyCODONE HCl 5 MG/5ML Solution 5 ml as needed Orally every 6 hrsProAir HFA 108 (90 Base) MCG/ACT Aerosol Solution 2 puffs as needed Inhalation every 4 hrsKlonoPIN 0.5 MG Tablet 1 tablet Orally Twice a daytraZODone HCl 150 MG Tablet 1 tablet at bedtime Orally Once a daySudoGest 30 MG Tablet Oral clonazePAM 0.5 MG Tablet Oral Ursodiol 250 MG Tablet 3 Orally Twice a dayUrsodiol 250 MG Tablet 3 Orally Twice a dayOmeprazole 20 MG Capsule Delayed Release 1 Orally Every morningTaking metFORMIN HCl 500mg Taking Singulair 10mg Taking glipiZIDE XL 5mg Taking Flovent HFA 12mg Taking Vitamin D 1000unit Taking Calcium 600 + D 600mg Taking HYDROcodone-Acetaminophen 5-500 MG Capsule 1 capsule as needed Orally every 6 hrsTaking oxyCODONE HCl 5 MG/5ML Solution 5 ml as needed Orally every 6 hrsTaking ProAir HFA 108 (90 Base) MCG/ACT Aerosol Solution 2 puffs as needed Inhalation every 4 hrsTaking KlonoPIN 0.5 MG Tablet 1 tablet Orally Twice a dayTaking traZODone HCl 150 MG Tablet 1 tablet at bedtime Orally Once a dayTaking SudoGest 30 MG Tablet Oral Taking clonazePAM 0.5 MG Tablet Oral Taking Ursodiol 250 MG Tablet 3 Orally Twice a dayTaking Ursodiol 250 MG Tablet 3 Orally Twice a dayTaking Omeprazole 20 MG Capsule Delayed Release 1 Orally Every morningNot-Taking/PRNibuprofen tylenol Medication List reviewed and reconciled with the patientNot-Taking/PRN ibuprofen Not-Taking/PRN tylenol Medication List reviewed and reconciled with the patient * Allergies:?N.K.D.A.yes[Aller gies Verified] Objective: * Vitals:?Wt: 185 lbs, Ht: 58 in, BMI:38.66 Index, BP: 00/00 mm Hg. * Examination: ???General Examination: ?GENERAL APPEARANCE:?pleasant, well nourished, well developed, in no acute distress.?EYES:?sclera non-icteric.?ORAL CAVITY:?mucosa moist.?NECK/THYROID:?no cervical lymphadenopathy, neck supple.?SKIN:?nonjaundiced, no spider angiomata..?HEART:?S1, S2 normal.?LUNGS:?clear to auscultation bilaterally.?ABDOMEN:?normal bowel sounds, no guarding or rigidity, no hepatosplenomegaly, no masses palpable, soft, nontender, nondistended..?EXTREMITIES:?no edema.?NEUROLOGIC:?alert and oriented.? Assessment: * Assessment: 1.?Other cirrhosis of liver - K74.69 (Primary)?2.?History of hepatitis C - Z86.19?3.?Fatty liver - K76.0? Overall, Ludivina appears quite w ell and does not show any signs nor have any symptoms Of decompensating liver disease. I did advise her to continue her current medical regimen of the ursodiol. I shall check a followup abdominal ultrasound and the below laboratories in regard to the chronic liver disease. She will also continue her daily omeprazole for her history of reflux. We did review that she will be due for a followup screening colonoscopy in 2028 given her last exam being negative in 2019 and not having any family history of colorectal cancer. If things remain well I have advised her to see me in one year for a followup visit. I advised her to contact me in the interim if she has any problems or questions I can be of assistance with. Ludivina was comfortable with this plan. Thank you again for allowing me to participate in Ludivina's care. I shall continue to keep you advised of her progress. Plan: * Treatment: * 2.?History of hepatitis C?LAB: LIVER PROFILE ?LAB: CBC w DIFF ?LAB: ALPHA-FETOPROTEIN,TUMOR MARKER ?LAB: HEPATITIS C VIRAL LOAD ?LAB: HCV LIVER FIBROSIS, FIBRO TEST ?LAB: Prothrombin Time INR ?Imaging: US abdomen comp w elastography* Glendy Spear 02/25/2024 0 9:58:51 AM EST > Patient has appt on 03/10/2024 @ 9:30am for an ultrasound. Patient is aware that she needs to have nothing to eat or drink for 8 hours before. * 3.?Fatty liver?LAB: LIVER PROFILE ?LAB: CBC w DIFF ?LAB: ALPHA-FETOPROTEIN,TUMOR MARKER ?LAB: HEPATITIS C VIRAL LOAD ?LAB: HCV LIVER FIBROSIS, FIBRO TEST ?LAB: Prothrombin Time INR ?Imaging: US abdomen comp w elastography* Glendy Spear 02/25/2024 0 9:58:51 AM EST > Patient has appt on 03/10/2024 @ 9:30am for an ultrasound. Patient is aware that she needs to have nothing to eat or drink for 8 hours before. * * Procedure Codes:?3017F COLOR ECTAL CA SCREEN DOC [id number] TOBACCO [id number] BP SCR NOT PRFRM REC REASON NOS * Preventive Medicine:? ??Counseling:?Care goal follow-up plan:?Above Normal BMI Follow-up?Giving encouragement to exercise,?BMI management provided?Yes.? ??Urinary Incontinence:?Urinary Incontinence?Assessment:?Absent,?Plan of care documented:?No, reason not specified.? ??Screenings:?Fall Risk Screening?Fall Risk Assessment:?No falls in the past year,?Screening:?No falls in the past year,?Assessment:?Not performed, no reason specified,?Plan of Care:?Not documented, no reason specified.? * Follow Up:?1 Year * * Sign off status: Completed true * Provider:?Jason Lora MD Date:? 024 Generated for Esteban christianson/Marcel/eTjuansmitting on:?06/15/2024 03:03 PM EDT History and Physical Notes * HPI (History of Present Illness) Category Sub-Category Detail Notes Category Not es incontinence I saw Ludivina in followup today in regard to her chronic liver disease in relation to previous chronic hepatitis C and fatty liver. I last saw Ludivina in February of 2023. Since that time she reports that she has been feeling well. She is continued on her ursodiol 750 mg b.i.d. for the underlying fatty liver. She enjoys a good appetite and denies any significant heartburn or dysphagia on her daily omeprazole. She denies any early satiety, nausea, nor vomiting. She denies any abdominal pain, jaundice, nor unintentional weight loss. She denies any fatigue, pruritus, increasing abdominal girth, or edema. Her bowel movements are regular and she denies any melena or hematochezia. She denies any known family history of colorectal cancer. Laboratories in December revealed a normal CBC with platelet count, normal chemistries and renal function, and a normal liver profile. Examination Category Sub-Category Detail Notes Category Not es General Examination GENERAL APPEARANCE: pleasant , well [...]
--- OUTSIDE RECORDS SUMMARY | 2024-06-15 15:03 | XMS_ITS ---
Author Organization [facility] Address [address] [place] [address] Care Team Providers Care Cage Tender Name Role Phone [facility] [place] Primary Care Provider UnaJason Birmingham Unavailable [phone] REASON FOR VISIT r/f request ursodiol Medications Medication SIG (Take, Route, Fr equency, Duration) Notes Start Date End Date Status Magdiel 250 250 MG 3 tablets Orally Twi ce a day for 30 days 11/28/2013 Active Encounters Encounter Location Date Provider Diagnosis [facility] [address] [place] [address] 05/12/2024 Jason Lora Plan Of Treatment Medication Medication Name Sig Start Date Stop Date Notes Magdiel 250 250 MG 3 tablets Orally Twice a day for 30 days 0 11/28/2013 Next Appt Details Provider Name:Jason Lora , 02/23/2025 09:20:00 AM, [address], [address], [place], [address], Progress Notes * TRUPTI MAGUIRE NDOB:1955 ( 68 yo F)Acc No.[id number]:05/12/2024 Patient:?TRUPTI MAGUIRE :1955???Age:68 Y???Sex:Female Address:[address] [place] [address] * Refills? Refill Magdiel 250 Tablet, 250 MG, Orally, 180 Tablet, 3 tablets, Twice a day, 30 days, Refills=11 * true * Date:? Generated for Printi sammy/Familesg/eTransmitting on:?06/15/2024 03:03 PM EDT
--- OUTSIDE RECORDS SUMMARY | 2024-06-15 15:03 | XMS_ITS | Encounter Summary ---
Author Organization [facility] Address [address] [place] [address] Phone Care Team Providers Care Psych Social Worker Name Role Phone [facility] Primary Care Provider [phone] Encounter Details Date Type Department Care Team (Late Contact Info) Description 12/23/2021 Documentation Only [facility] [place], [address] [place] [address] Shaun Morales PA Social History [...] Visit [facility] [address] [place] [address] Danny Mahoney MD [address] [phone] documented as of this encounter Visit Diagnoses Not on filedocumented in this encounter Care Teams Psych Social Worker Relationship Specialty Start Date End Date Sol, Kelli [address] [place], [place] [phone] PCP - General 11/26/23 documented as of this encounter
--- OUTSIDE RECORDS SUMMARY | 2024-06-15 15:04 | XMS_ITS ---
Author Organization [facility] Address [address] [place] [address] Care Team Providers Care Waste Specialist Name Role Phone [facility], Kelli Primary Care Provider Unava Jason Sethi Unavailable [phone] Medications Medication SIG (Take, Route, Fr equency, Duration) Notes Start Date End Date Status Omeprazole 20 MG 1 Orally Every morni ng for 30 day(s) 07/02/2022 Active Encounters Encounter Location Date Provider Diagnosis [facility] [address] [facility] [address] [place] [address] 07/02/2023 Jason Lora Plan Of Treatment Medication Medication Name Sig Start Date Stop Date Notes Omeprazole 20 MG 1 Orally Every morning for 30 day(s) 06/21 Next Appt Details Provider Name:Jason Lora , 02/23/2025 09:20:00 AM, [address] [facility], [address], [place], [address], Progress Notes * TRUPTI MAGUIRE NDOB:1955 ( 67 yo F)Acc No.[id number]:07/02/2023 Patient:?TRUPTI MAGUIRE :1955???Age:67 Y???Sex:Female Address:[address] [place] [address] * Refills? Refill Omeprazole Capsule Delayed Release, 20 MG, Orally, 30, 1, Every morning, 30 day(s), Refills=11 * true * Date:? Generated for Printi ng/Familesg/eTransmitting on:?06/15/2024 03:03 PM EDT
--- OUTSIDE RECORDS SUMMARY | 2024-06-15 15:04 | XMS_ITS | Continuity of Care Document ---
Author Organization [facility] Address [address] [place] [address], [address] [place] [address]- Care Team Providers Care Decorating Instructor Name Role Phone [place] FLOOR FINISHER, Kelli Primary Care Physician [id number] Date(s): 04/26/24 - 05/26/24 [facility] [address] [place] [address], [address] [place] [address]- Attending Physician: Jose Shea Admitting Physician: Jose Shea Referring Physician: Jose Shea Encounter Type: Triage Allergies, Adverse Reactions, Alerts No Known Allergies [...] Refills, Maintenance, 04/08/22 9:09:00 AM EST, Aerosol, [facility], 2 puffs Inhalation 2 times [...] 0 Refills, Maintenance, 05/26/24 12:14:00 PM EST, [facility], 147.32, cm, 01/28/23 10:38:00 EST, [...] 1:56:00 PM EST, Route to Pharmacy Electronically, [facility], 147.32, cm, 01/28/23 10:38:00 EST, [...] Refills 0, Tot. Refills 0, Maintenance, :29:34 AM EDT, Aerosol, Route to Pharmacy Electronically, [id number], [facility] - [place] Start Date: 12/20/18 Status: Ordered Quantity: 8.5 Unit: g Repeat number: 1 Spiriva Respimat 1.25 mcg/inh inhalation aerosol 2 puffs, Inhalation, Daily, j44.9, # 1 each, 6 Refills, Maintenance, 02/27/22 7:09:00 PM EST, Aerosol, [facility] Start Date: 02/27/22 Status: Ordered [...] Hydrocodone t.i.d as needed. ?? Compliant with WOODEN [employer]OX MAKER agreement 3Outside Source Comment: Overview: ?? Followed by DR. Lora at [facility] ?? S/t JOSHUA 4Outside Source Comment: [...] Exam: Follow[facility] [place] Lipid panel: 03/2022 WNL ASCVD: LDL < 70 Statin: Yes ASA: No PATRICIA/ARB: Yes Encouraged regular aerobic exercise for improved glycemic control Encouraged daily foot checks Encouraged lean protein snacks and to avoid foods high in sugar and simple carbohydrates Treatment Goals: W6jxvum: <7% FBG goal: <130 2 hour post [...] Care Nurse Name: Scott Christine RN Position: [facility] RN Member Role: Primary Care Nurse Name: Sol FLOOR FINISHERKelli Position: Reference Physician Member Role: PCP Address: [address] [place] [address] Telecom: Care Team Related Persons Name: ENRIQUE MAN Insurance Providers Guarantor name: TRUPTI MAGUIRE Health Plan Information #: 1 Payer: NA Member Number: NA Policy Number: NA Group Number: NA
--- OUTSIDE RECORDS SUMMARY | 2024-06-15 15:04 | XMS_ITS | Patient Health Record ---
Author Organization [facility] Address [address] [place] [address] Care Team Providers Care Material Planning Analyst Name Role Phone [facility] Primary Care Provider Unava ilable Jason Lora Unavailable [phone] Allergies No Known Allergies Results Component Value Reference Range Notes US abdomen comp w elastograp hy (Not yet reviewed by provider) Interpretation: Performing Lab: Notes/Report: [facility] [address] [place] [address] Ultrasound Report Signed Patient: Ludivina Hussein MR#: [id number] : 1955 Acct:[id number] Age/Sex: 68 / F ADM Date: 04/13/24 Loc: HO.US Attending Dr: Jason Lora MD Ordering Physician: Jason Lora MD Date of Service: 04/13/24 Procedure(s): US abdomen comp w elastography Accession Number(s): [id number] cc: Jason Lora MD; [facility] EXAMINATION: US ABDOMEN COMPLETE WITH LIVER ELASTOGRAPHY [...] 04/14/24 0742 DD/ 1001 TD/TT: 04/13/24 1033 Salesforce Trainer: [place] [id number] Ultrasound Report Signed Patient: Ludivina Hussein MR#: [id number] : 1955 Acct:[id number] Age/Sex: 68 / F ADM Date: 04/13/24 Loc: HO.US Attending Dr: Jason Lora MD Ordering Physician: Jason Lora MD Date of Service: 04/13/24 Procedure(s): US abd omen comp w elastography Accession Number(s): [id number] cc: Jason Lora MD; [facility] EXAMINATION: US ABDO MEN COMPLETE WITH LIVER ELASTOGRAPHY HISTORY: h/o hep. C, cirrhosis TECHNIQUE: Real-time grayscale ultrasound imaging of the abdomen was performed and images were reviewed. COMPARISON: Comparis on is made with the prior examination dated 03/21/2021. FINDINGS: Liver: There is enla rgement of the left lobe of the liver. The liver demonstrates increas ed echotexture consistent with steatosis. There is a mildly lobulated l iver contour, suggestive of cirrhosis. No focal mass or intrahepatic biliary ductal dilatation is identified. There is normal hepatopedal f low in the portal vein. Ultrasound elastogra phy of the liver was performed with 10 separate measurements of the liver parenchyma with the patient in the supine position. Measuremen ts were obtained approximately 2 cm below Vishnu's capsule an d perpendicular to the capsule. Images are of satisfactory quality. The median shear wav e velocity is 1.69 m/s. The interquartile ra nge/median (IQR/median) is 0.09. Gallbladder and bili kosta tree: The gallbladder is unremarkable, without evidence of calculi, wall thickening, or pericholecystic fluid. There is no sonographic Mu rphy sign. The common bile duct is normal in caliber measuring 3 mm. Kidneys: The right k idney measures 10.9 cm in length. The left kidney measures 10.3 cm in length. There is a 6 x 6 x 8 mm cyst in the interpolar region of the right kidney and an 8 x 7 x 8 mm cyst in the interpolar region of the left kidney. There is a probable scar or junctional parenchym al defect in the interpolar region of the right kidney. The kidneys are otherwise unremarkable, without evidence of solid masses, hydron ephrosis, or calculi. Pancreas: The pancre atic head and neck are unremarkable. The remainder of the pancreas is o bscured by bowel gas. Spleen: The spleen i s normal in size and contour, measuring 8.1 cm in length. Abdominal aorta and inferior vena cava: The visualized portions of the abdominal aorta and inferior vena cava are normal in caliber. There is no free flu id in the abdomen. U S/US abdomen comp w elastography IMPRESSION: Hepatic steatosis an d enlargement of the left lobe of the liver. Lobulated liver cont our suggestive of cirrhosis. The median shear wav e velocity is 1.69 m/s, corresponding to a median liver stiffness of 8 .74 kPa. The IQR/median value is 0.09. This is indicative of a qual ity data set. Findings are indicat laura of a low elastography value which rules out advanced chronic chen er disease in asymptomatic patients. REFERENCE: Society of Radiologi sts in Ultrasound Liver Stiffness Thresholds (2019): LIVER STIFFNESS THRESHOLDS: *Shear wave velocity less than 1.3 m/s (Liver Stiffness equal or less than 5 kPa): High pr obability of being normal. *Shear wave velocity less than 1.7 m/s (Liver Stiffness less than 9 kPa): In the absence of other known clinical signs, rules out compensated advanced chronic liver disease. *Shear wave velocity between 1.7-2.1 m/s (Liver Stiffness 9-13 kPa): Suggestive of compen sated advanced chronic liver disease but need further test for confirmation. *Shear wave velocity between 2.1-2.4 m/s (Liver Stiffness 13-17 kPa): Rules in compensated advanced chronic liver disease. *Shear wave velocity greater than 2.4 m/s (Liver Stiffness over 17 kPa): Suggestive of clinically significant portal hypertension. QUALITY OF DATA SET: *IQR/Median value eq ual or less than 0.15 implies a quality data set. *IQR/Median value ov er 0.15 implies a poor quality data set. SIGNIFICANT CHANGE F ROM PRIOR EXAM: Significant change i f liver stiffness measurement is 10% or greater from prior exam. OTHER CONSIDERATIONS: The stage of liver f ibrosis may be overestimated in the setting of acute hepatitis, chen er inflammation, elevated liver function tests, hepatic vascular con gestion, obstructive cholestasis, non-fasting state, and infiltrat laura diseases such as amyloidosis and lymphoma. In some patients with N AFLD, the liver stiffness thresholds for compensated advanced chronic liver disease may be lower. In causes other than viral hep atitis and NAFLD, liver stiffness thresholds are not well established. Electronically miguel d by: Jason Lombardi MD 04/14/2024 07:42 AM [facility] Dictated By: Jason Lombardi MD Signed By: <Ender nava signed by Jason Lombardi MD in OV> 04/14/24 0742 DD/ 1001 TD/TT: 04/13/24 1033 Salesforce Trainer: Reason For Referral No Information Medications Medication SIG (Take, Route, Frequency, Duration) [...] clonazePAM 0.5 MG Oral for 30 Active Immunizations Vaccine Route Administration Date Status Comme nts Influenza Unknown 12/21/2017 Administered Influenza Unknown 01/21/2019 Administered Influenza Unknown 11/22/2019 Administered Influenza Unknown 11/21/2021 Administered Social History Alcohol Screen Question Answer Notes [...] 1 Interpretation Negative Section Notes: Nonsmoker, nondrinker Nonsmoker, nondrinker Nonsmoker, nondrinker Nonsmoker, nondrinker Nonsmoker, nondrinker Nonsmoker, nondrinker Nonsmoker, nondrinker Nonsmoker, nondrinker Nonsmoker, nondrinker Nonsmoker, nondrinker Nonsmoker, nondrinker Nonsmoker, nondrinker Nonsmoker, nondrinker Problems Problem Type SNOMED Code ICD Code Onset Dates Problem Status W/U Status Risk Notes Problem 881423166 Encounter for screening for malignant neoplasm of colon (Z12.11) Active confirmed Problem 98034164 Other cirrhosis of liver (K74.69) Active confirmed Problem 595048111 Fatty liver (K76.0) Active confirmed Problem 50574436954203 History of hepatitis C (Z86.19) Active confirmed Problem 4668627 Chronic gastritis without bleeding, unspecified gastritis type (K29.50) Active confirmed Vital Signs Blood pressure diastolic 00 mm Hg 02/25/2024 Height 58 in 02/25/2024 Blood pressure systolic 00 mm Hg 02/25/2024 Weight 185 lbs 02/25/2024 BMI 38.66 kg/m2 02/25/2024 Encounters Encounter Location Date Provider Diagnosis [facility] [address] [place] [phone] 02/25/2024 Jason Lora Other cirrhosis of liver K74.69 ; History of hepatitis C Z86.19 and Fatty liver K76.0 [facility] [address] [place] [address] 07/02/2023 Jason Lora [facility] [address] [place] [phone] 05/12/2024 Jason Geno Assessments Encounter Date Diagnosis (ICD Code) Assessment [...] PROFILE 02/25/2022 LIVER PROFILE 08/27/2012 LIVER PROFILE 02/25/2024 LIVER PROFILE 07/03/2020 LIVER PROFILE 08/22/2021 LIVER PROFILE 09/15/2013 CBC w DIFF 02/25/2022 CBC w DIFF 02/25/2024 CBC w DIFF 07/03/2020 PROTHROMBIN TIME (PT, INR) 07/03/2020 ALPHA-FETOPROTEIN,TUMOR MARKER 7 ALPHA-FETOPROTEIN,TUMOR MARKER 1 ALPHA-FETOPROTEIN,TUMOR MARKER 3 ALPHA-FETOPROTEIN,TUMOR MARKER 2 ALPHA-FETOPROTEIN,TUMOR MARKER 4 ALPHA-FETOPROTEIN,TUMOR MARKER 2 ALPHA-FETOPROTEIN,TUMOR MARKER 4 ALPHA-FETOPROTEIN,TUMOR MARKER 3 HEPATITIS C VIRAL LOAD 02/25/2024 US ABD 03/12/2017 US ABD 07/03/2020 HCV LIVER FIBROSIS, FIBRO TEST 4 Prothrombin Time INR 02/26/2023 Prothrombin Time INR 02/25/2024 Prothrombin Time INR 02/25/2022 US abdomen comp w elastography 5 US abdomen comp w elastography 4 Future Test Test Name Order Date UPPER GI ENDOSCOPY 03/05/2018 COLONOSCOPY 03/05/2018 Next Appt Details Provider Name:Jason Lora , 02/23/2025 09:20:00 AM, [address], [address], [place], [address], Insurance Providers Payer Name Payer Address Payer Phone Subscriber Number Group Number Insured Name Patient Relationship to Insured Coverage Start Date Coverage End Date [facility] Claims [address] [address] [place] [address] [id number] LUDIVINA HUSSEIN Self - patient is the insured MEDICAID OF [employer] [facility] [address] [place] [address] [id number] LUDIVINA HUSSEIN Self - patient is the insured Medical (General) History Medical History History ICD Code Fatty liver--liver biopsy in 01/2001 with bridging fibrosis, steatohepatitis, and piecemeal necrosis Hepatitis C-Hep C Genotype 2 b, treated successfully in 2002 with 6 months of pegylated interferon and ribavirin, with nondetectable HepC RNA in 2015---Gr 3/4, StageIII/IV on biopsy in 2000(as above)--she uses ursodiol 750 mg b.i.d. Asthma Anxiety Denies RI,CVA,renal disease Kidney stones Negative colonoscopy with Dr. Rodriguez in [place] Urinary incontinence Neg. screening colonoscopy in 04/2018 EGD in 04/2018 with erosive g astritis but neg. Hpylori, no varices, small to mod-sized hiatal hernia Surgical History Surgery Date(Month/Year) Tubal ligation Umbilical hernia surgery 03/2013-Dr. [facility] Vocal cord polyps Bladder suspension by Dr Avelino lama in [place] for urinary incontinence on 09/19/13. Veins in her left leg Right knee replacement with Dr. Solorzano 2020
== END 2024-06-15 13:17 | disposition home or self-care (01) ==
LOC: HO.HPS 12:45
PROVIDERS: PCP Registered Nurse; Visit Provider Internal Medicine Pulmonary Disease
DX: J44.89 Other specified chronic obstructive pulmonary disease (principal); G47.33 Obstructive sleep apnea (adult) (pediatric); Z87.891 Personal history of nicotine dependence
CPT/HCPCS: 99214; G2211

== ENCOUNTER → 2024-06-15 12:44 | Outpatient (BNVA) | payer OTHER, SELFPAY | PROVIDERS: PCP Registered Nurse; Visit Provider Internal Medicine Pulmonary Disease | DX: J44.89 Other specified chronic obstructive pulmonary disease (principal); G47.33 Obstructive sleep apnea (adult) (pediatric); Z87.891 Personal history of nicotine dependence | CPT/HCPCS: 99212 ==

== ENCOUNTER → 2024-06-21 19:30 | Outpatient (REF) | payer OTHER, SELFPAY | LOC: HO.SL 19:30 | PROVIDERS: PCP Registered Nurse; Visit Provider Registered Nurse | DX: Z13.89 Encounter for screening for other disorder (principal) ==

== ENCOUNTER 2024-06-24 10:00 | Outpatient (REF) | payer OTHER, SELFPAY ==
--- OUTSIDE RECORDS SUMMARY | 2024-06-24 11:19 | XMS_ITS | Encounter Summary ---
Author Organization [employer] Address [address] [facility] 7t [place] [address] Care Team Providers Care Tire Specialist Name Role Phone Kelli Horton MANAGER UI Primary Care Provider [phone] Encounter Details Date Type Department Care Team ([facility] st Contact Info) Description 02/06/2023 Abstract [facility] [address] [place] [address] Madeleine Valle Social History Tobacco Use Types [...] Care Team (Late st Contact Info) Description 09/14/2024 9:00 AM EDT Clinical Support [facility] [address] [place] [address] Tammie Diaz RN documented as of this [...] documented as of this encounter Care Teams Tire Specialist Relationship Specialty Start Date End Date Kelli Horton FNP [address] [place] [address] PCP - General Family Medicine 05/20/22 documented as of this encounter
--- OUTSIDE RECORDS SUMMARY | 2024-06-24 11:19 | XMS_ITS | Encounter Summary ---
Author Organization [employer] Address [address] [facility] 7t [place] [address] Care Team Providers Care Line Tender Flakeboard Name Role Phone Kelli Horton [facility] Primary Care Provider [phone] Reason for Visit * Reason Comments Med Refill Encounter Details Date Type Department Care Team (Late st Contact Info) Description 12/16/2022 Refill [facility] [address] [place] [phone] Name, MD Haroon [address] [place] [address] [phone] Chronic low back pain, unspecified back pain [...] Description 09/14/2024 9:00 AM EDT Clinical Support [facility] [address] [place] [phone] Tammie Diaz RN documented as of this encounter Visit Diagnoses Diagnosis Chronic low back pain, unspecified back pain laterality, unspecified whether sciatica present documented in this encounter Additional Health Concerns Assessment Noted Time PHQ-9 Depression Total Score: 21 022 10:03 AM EST documented as of this encounter Care Teams Line Tender Flakeboard Relationship Specialty Start Date End Date Kelli Horton FNP [address] [place] [address] PCP - General Family Medicine 05/20/22 documented as of this encounter
--- OUTSIDE RECORDS SUMMARY | 2024-06-24 11:19 | XMS_ITS | Encounter Summary ---
Author Organization [employer] Address [address] [facility] 7t [place] [address] Care Team Providers Care Hand Nailer Name Role Phone [place] [facility] Primary Care Provider [phone] Reason for Visit * Reason Onset Date Comments Nurse Triage 02/11/2023 Encounter Details Date Type Department Care Team ([facility] st Contact Info) Description 02/11/2023 Telephone [facility] [address] [place] [address] [place] [facility] [address] [place] [address] Nurse Triage Social History Tobacco Use Types [...] past 12 months, has t he electric, [employer], oil or water [employer] threatened to shut off services in your [...] the only possible outcome for this symptom Ivorian Speaker documented in this encounter Plan of Treatment Upcoming Encounters Date Type Department Care Team (Late st Contact Info) Description 09/14/2024 9:00 AM EDT Clinical Support [facility] [address] [place] [address] Tammie Diaz RN documented as of this encounter Visit Diagnoses Not on filedocumented in this encounter Additional Health Concerns Assessment Noted Time PHQ-9 Depression Total Score: 21 03/21/ 022 10:03 AM EST documented as of this encounter Care Teams Hand Nailer Relationship Specialty Start Date End Date Kelli Horton FNP [address] [place] [address] PCP - General Family Medicine 05/20/22 documented as of this encounter
--- OUTSIDE RECORDS SUMMARY | 2024-06-24 11:19 | XMS_ITS ---
Author Organization [facility] Address [address] [facility] [address] [place] [address] Care Team Providers Care Bag Press Operator Name Role Phone [facility] Primary Care Provider Unava Jason Sethi Unavailable [phone] REASON FOR VISIT omeprazole Rx Medications Medication SIG (Take, Route, Fr equency, Duration) Notes Start Date End Date Status Omeprazole 20 MG Take 1 every morning Orally Once a day for 30 days 06/15/2024 Active Encounters Encounter Location Date Provider Diagnosis [facility] [address] [place] [address] [place] [phone] 06/15/2024 Jason Lora Plan Of Treatment Medication Medication Name Sig Start Date Stop Date Notes Omeprazole 20 MG Take 1 every morning Orally Once a day for 30 days 06/15/2024 Next Appt Details Provider Name:Jason Lora , 02/23/2025 09:20:00 AM, [address] [facility], Suite [facility], [place], [address], Progress Notes * TRUPTI MAGUIRE NDOB:1955 ( 68 yo F)Acc No.[id number]:06/15/2024 Patient:?TRUPTI MAGUIRE :1955???Age:68 Y???Sex:Female Address:[address] [place] [address] * Refills? Start Omeprazole Capsule Delayed Release, 20 MG, Orally, 30, Take 1 every morning, Once a day, 30 days, Refills=11 * true * Date:? Generated for Esteban christianson/Marcel/eTransmitting on:?06/24/2024 11:19 AM EDT
--- OUTSIDE RECORDS SUMMARY | 2024-06-24 11:19 | XMS_ITS | Encounter Summary ---
Author Organization [facility] Address [address] [place] [address] Phone Care Team Providers Care Senior Software Qa Engineer Name Role Phone [facility] Primary Care Provider [phone] Encounter Details Date Type Department Care Team (Late Contact Info) Description 12/10/2021 Documentation Only [facility], [address] [place] [address] Shaun Morales PA Social History [...] Visit [facility] [address] [place] [address] Danny Mahoney MD [address] [phone] documented as of this encounter Visit Diagnoses Not on filedocumented in this encounter Care Teams Senior Software Qa Engineer Relationship Specialty Start Date End Date [place], Kelli [address] [place], [place] [phone] PCP - General 11/26/23 documented as of this encounter
--- OUTSIDE RECORDS SUMMARY | 2024-06-24 11:19 | XMS_ITS | Encounter Summary ---
Author Organization [employer] Address [address] [facility] 7t [place] [address] Care Team Providers Care Elementary [employer] Social Worker Name Role Phone [place] [facility] Primary Care Provider [phone] Reason for Visit * Reason Onset Date Comments Med Refill 02/11/2023 Encounter Details Date Type Department Care Team ([facility] st Contact Info) Description 02/11/2023 Telephone [facility] [address] [place] [address] [facility] [address] [place] [address] Med Refill Social History Tobacco Use Types [...] from pt requesting med refill on; HYDROcodone-acetaminophen ([place]) 5-325 MG tablet documented in this encounter Plan of Treatment Upcoming Encounters Date Type Department Care Team (Late st Contact Info) Description 09/14/2024 9:00 AM EDT Clinical Support [facility] [address] [place] [address] Tammie Diaz, RN documented as of this encounter Visit Diagnoses Not on filedocumented in this encounter Additional Health Concerns Assessment Noted Time PHQ-9 Depression Total Score: 21 022 10:03 AM EST documented as of this encounter Care Teams Elementary [employer] Social Worker Relationship Specialty Start Date End Date Kelli Horton FNP [address] [place] [address] PCP - General Family Medicine 05/20/22 documented as of this encounter
--- OUTSIDE RECORDS SUMMARY | 2024-06-24 11:19 | XMS_ITS | Clinical Summary ---
Author Organization [facility] Address [address] [place] [address] Phone Care Team Providers Care Maritime Officer Name Role Phone Kelli Horton Primary Care Provider [phone] Allergies Active Allergy Reactions Criticality Noted Date [...] follow up pelvic exam C-scope: Previously at [facility]. Date unknown BMD: Routine age 67 Right bundle-branch block 07/22/20222022 Obstructive sleep apnea syndrome 03/21/2022 02/24/2023 Overview (02/24/2023): ?? Has CPAP Chronic low back pain 03/12/2022 02/24/2023 Overview (02/24/2023): ?? Hydrocodone t.i.d as needed. ?? Compliant with PULMONARY PHYSICIAN agreement Pain of knee region 03/12/2022 02/24/2023 [...] Exam: [facility] in [place] Lipid panel: 03/2022 WNL ASCVD: LDL < [...] Visit [facility] [address] [place] [place] [phone] Danny Mahoney MD [address] [phone] Health Maintenance Due Date Last Done Comments [...] 04/22/2023, 03/27/2017, 12/31/2007 Insurance [place]ID [place] [address] [place] [address] ([id number]) [place] [address] ([id number]) Care Teams Maritime Officer Relationship Specialty Start Date End Date [facility] [address] [place] [address] PCP - General 11/26/23
--- OUTSIDE RECORDS SUMMARY | 2024-06-24 11:20 | XMS_ITS ---
Author Organization [facility] Address [address] [place] [address] Care Team Providers Care Automatic Nailing Machine Feeder Name Role Phone [facility] Primary Care Provider Shivani kellogg Jason Lora Unavailable [phone] Allergies No Known Allergies REASON FOR VISIT [...] 02/25/2024 Encounters Encounter Location Date Provider Diagnosis [facility] [address] [place] [address] 02/25/2024 Jason Lora Other cirrhosis of liver [...] 09:20:00 AM, [address], [address], [place], [address], Progress Notes * LUDIVINA MAGUIRE NDOB:1955 ( 68 yo F)Acc No.[id number]:02/25/2024 Progress Notes Patient:?LUDIVINA MAGUIRE N Provider:?Jason Lora MD :1955???Age:68 Y???Sex:Female D ate:02/25/2024 Address:[address] [place] [address], [id number] Pcp:ALYSSA Nascimento Subjective: * Chief Complaints: * [...] polyps Bladder suspension by Dr Hernandez in [place] for urinary incontinence on 09/19/13. Veins in [...] Procedure Codes:?3017F COLOR ECTAL CA SCREEN DOC [id number] TOBACCO [id number] BP SCR NOT PRFRM REC REASON NOS [...] MD Date:? 024 Generated for Esteban christianson/Marcel/eTjuansmitting on:?06/24/2024 11:19 AM EDT History and Physical Notes * HPI [...]
--- OUTSIDE RECORDS SUMMARY | 2024-06-24 11:20 | XMS_ITS | Encounter Summary ---
Author Organization [employer] Address [address] [facility] [address] [place] [address] Care Team Providers Care Interstate Planner Name Role Phone [facility] Primary Care Provider [phone] Reason for Visit * Reason Comments Med Refill Encounter Details Date Type Department Care Team (Late st Contact Info) Description 12/17/2023 Refill [facility]EDS [address] [place] [address] [facility] [address] [place] [address] Chronic low back pain, unspecified back pain [...] Description 09/14/2024 9:00 AM EDT Clinical Support [facility] MEDICINE [address] [place] [address] Tammie Diaz RN documented as of this encounter Visit Diagnoses Diagnosis Chronic low back pain, unspecified back pain laterality, unspecified whether sciatica present documented in this encounter Additional Health Concerns Assessment Noted Time PHQ-9 Depression Total Score: 0 07/22/19 24 9:10 AM EDT documented as of this encounter Care Teams Interstate Planner Relationship Specialty Start Date End Date Kelli Horton FNP [address] [place] [address] PCP - General Family Medicine 05/20/22 documented as of this encounter
--- OUTSIDE RECORDS SUMMARY | 2024-06-24 11:20 | XMS_ITS | Encounter Summary ---
Author Organization [employer] Address [address] [facility] [address] [place] [address] Care Team Providers Care Associate Spa Director Name Role Phone [facility] Primary Care Provider [phone] Reason for Visit * Reason Onset Date Comments Med Refill 01/28/2024 Encounter Details Date Type Department Care Team ([facility] st Contact Info) Description 01/28/2024 Telephone [facility] MEDICINE [address] [place] [address] [facility] [address] [place] [address] Med Refill Social History Tobacco Use Types [...] Description 09/14/2024 9:00 AM EDT Clinical Support [facility] [address] [place] [address] Tammie Diaz RN documented as of this encounter Visit Diagnoses Not on filedocumented in this encounter Additional Health Concerns Assessment Noted Time PHQ-9 Depression Total Score: 0 12/25/19 24 10:25 AM EDT documented as of this encounter Care Teams Associate Spa Director Relationship Specialty Start Date End Date Kelli Horton FNP [address] [place] [address] PCP - General Family Medicine 05/20/22 documented as of this encounter
--- OUTSIDE RECORDS SUMMARY | 2024-06-24 11:20 | XMS_ITS | Encounter Summary ---
Author Organization [employer] Address [address] [facility] [address] [place] [address] Care Team Providers Care Malt Roaster Name Role Phone [facility] Primary Care Provider [phone] Encounter Details Date Type Department Care Team (Late Contact Info) Description 09/30/2022 Abstract [facility] MEDICINE [address] [place] [id number] [facility] [address] [place] [address] Social History Tobacco Use Types Packs/Day Years [...] Description 09/14/2024 9:00 AM EDT Clinical Support [address] [id number] Tammie Diaz RN documented as of this encounter Procedures Procedure Name Priority Date/Time Associated Diagnosis Comments MAMMOGRAPHY Routine 05/22/2022 3:11 PM EST documented in this encounter Results * Hm Mammography (05/22/2022 3:11 PM EST) Mammogram BI-RADS 1 Negative Comment:Routine Annual Mammo gram Anatomical Region Laterality Modality Other Darcy Temple MD HEALTH MAINTENANCE Final Res ult documented in this encounter Visit Diagnoses Not on filedocumented in this encounter Additional Health Concerns Assessment Noted Time PHQ-9 Depression Total Score: 21 03/21/ 022 10:03 AM EST documented as of this encounter Care Teams Malt Roaster Relationship Specialty Start Date End Date Kelli Horton FNP [address] [place] [id number] PCP - General Family Medicine 05/20/22 documented as of this encounter
--- OUTSIDE RECORDS SUMMARY | 2024-06-24 11:20 | XMS_ITS | Clinical Summary ---
Author Organization [employer] Address [address] [facility] [address] [place] [address] Care Team Providers Care Icing Maker Name Role Phone Kelli Horton AERIAL TRAM OPERATOR Primary Care Provider [phone] Allergies Active Allergy Reactions Criticality Noted Date [...] PATIENT RESPONDS. 2 each 2 023 Active loratadine (Claritin) 10 MG tabletIndicatio ns:Moderate [...] per week 42.5 g 2 024 Active vitamin E 180 MG (400 UNIT) capsule TAKE 1 CAPSULE BY MOUTH EVERY MORNING 90 capsule 3 024 Active glucose blood (FREESTYLE LITE) test stripIndication s:Type 2 diabetes mellitus with stage 3 chronic kidney disease, without long-term current use of insulin, unspecified whether stage 3a or 3b CKD (CMS/[facility]) test blood sugar twice daily 100 strip 2 024 Active Trelegy Ellipta 200-62.5-25 MCG/ACT aerosol powder Take 1 puff by mouth Once daily. 025 Active traZODone (Desyrel) 100 MG tablet Take 1 tablet by mouth at bedtime. 025 Active albuterol (Ventolin HFA) 108 (90 Base) [...] (four) hours if needed (asthma). 1 each 025 Active cholecalciferol (Vitamin D-3) 25 MCG tablet TAKE 1 TABLET BY MOUTH EVERY MORNING 90 tablet 3 025 Active calcium carbonate 1500 (600 Ca) MG tablet TAKE 1 TABLET BY MOUTH EVERY MORNING 90 tablet 3 025 Active lidocaine-prilo dony (Emla) 2.5-2.5 % creamIndication s:Pain in right shoulder APPLY TOPICALLY TO THE AFFECTED AREA(S) EVERY DAY 30 g 3 025 Active fluticasone (Flonase) 50 MCG/ACT nasal sprayIndication s:Moderate persistent asthma, unspecified whether complicated USE 1 SPRAY IN EACH NOSTRIL TWICE DAILY 16 g 5 025 Active calcium carbonate (Calcium 600) 600 MG tablet Take 1 tablet (600 mg) by mouth in the morning. 90 tablet 3 024 2024 Discontinued cholecalciferol (Vitamin D-3) 25 MCG (1000 UT) tablet Take 1 tablet (25 mcg) by mouth in the morning. 90 tablet 3 024 2024 Discontinued fluticasone (Flonase) 50 MCG/ACT nasal sprayIndication s:Moderate persistent asthma, unspecified whether complicated USE 1 SPRAY IN EACH NOSTRIL TWICE DAILY 16 g 5 024 2024 Discontinued lidocaine-prilo dony (Emla) 2.5-2.5 % cream Apply 1 Application. topically Once daily. 025 2024 Discontinued HYDROcodone-patricia taminophen ([place]) 5-325 MG tabletIndicatio ns:Chronic low back pain, unspecified back pain laterality, unspecified whether sciatica present Take 1 tablet by mouth every 12 (twelve) hours if needed for severe pain for up to 28 days. 56 tablet 025 2024 azithromycin (Zithromax Z-Anselmo) 250 MG tablet Take 2 tablets once on day 1, then 1 tablet 1x/day for 4 days. 6 tablet 025 2024 Discontinued(M ed list cleanup (will not trigger notification to Pharmacy)) Active Problems Problem Noted Date Diagnosed Date Gait instability 05/05/2023 Acute conjunctivitis of right eye 03/05/2023 Healthcare maintenance 07/28/2022 Overview (05/05/2023): Mammo: 09/2022 Birads 1 Pap: S/P total hysterectomy for benign reason. Pt does not know if cervix remains. Will schedule follow up pelvic exam C-scope: Previously at [facility]. Date unknown. Will request records BMD: Routine age 67 Assessment & Plan (05/05/2023 8:28 PM EST): DEXA scan ordered RBBB 07/22/2022 Obstructive sleep apnea syndrome 03/21/2022 Overview (07/28/2022): ?? Has CPAP Chronic low back pain 03/12/2022 Overview (07/28/2022): ?? Hydrocodone t.i.d as needed. ?? Compliant with MACHINE LEATHER TRIMMER agreement Assessment & Plan (05/05/2023 8:15 PM EST): Continue hydrocodone as prescribed. Patient will bring tablets to pharmacy to determine if able to order prior formulation Declines chronic pain group at this time Follow as scheduled with MACHINE LEATHER TRIMMER Chronic pain of right knee 03/12/2022 Overview (07/28/2022): ?? Referred to PT for balance training 06/2022 Type 2 diabetes mellitus, [facility] long-term current use of insulin 10/01/2020 Overview (04/04/2024): Metformin monotherapy CKD stage 3 followed by nephrology Foot Exam: 03/2024 risk 0 Eye Exam: Followed by [facility] in [place] Statin: Yes ASA: No PATRICIA/ARB: Yes Encouraged [...] Overview (04/04/2024): Followed by DR. Lora at [facility] Hepatic steatosis, hx of chronic HCV [...] Problem Noted Date Diagnosed Date Resolved Date [place] eye disease of right eye 03/05/2023 03/05/2023 [...] Encounters Date Type Department Care Team Description 06/16/2024 Travel 06/15/2024 Refill [facility] [address] [place] [address] [facility] Pain in right shoulder; Moderate persistent asthma, unspecified whether complicated 06/08/2024 Refill [facility] [address] [place] [address] [facility] 05/24/2024 Telephone [facility] [address] [place] [address] [facility] 05/23/2024 Telephone [place] [facility] [address] [place], [place] [phone] [facility] 05/21/2024 Orders Only GENERIC EXTERNAL DATA DEPARTMENT Provider, Generic External Data 05/19/2024 Orders Only [facility] [address] [place] [phone] [facility] Obstructive sleep apnea syndrome (Primary Dx) 05/13/2024 9:00 AM EST Office Visit [facility] [address] [address] Rinku Chappell MD Influenza A (Primary Dx); Moderate persistent asthma with acute exacerbation 05/12/[address] [address] [facility] Chronic low back pain, unspecified back pain laterality, unspecified whether sciatica present 05/11/2024 Orders Only [facility] [address] [address] [facility] Obstructive sleep apnea syndrome (Primary Dx) 05/05/2024 Orders Only GENERIC EXTERNAL DATA DEPARTMENT Provider, Generic External Data 04/25/2024 10:00 AM EST Telemedicine [address] [address] Sada Johnston PharmD Benign essential hypertension (Primary Dx); Moderate persistent asthma with acute exacerbation 04/20/2024 9:30 AM EST Clinical Support [address] [address] Tammie Diaz RN Chronic low back pain, unspecified back pain laterality, unspecified whether sciatica present (Primary Dx) 04/20/2024 Travel 04/20/[address] [address] Tammie Diaz, LADONNA Recommend MACHINE LEATHER TRIMMER Tier 2 04/13/2024 Orders Only [facility] External Provider, [facility] 04/04/2024 11:15 AM EST Office Visit [address] [address] [facility] Type 2 diabetes mellitus with stage 3 chronic kidney disease, without long-term current use of insulin, unspecified whether stage 3a or 3b CKD (CMS/HCC) (Primary Dx); Left carpal tunnel syndrome; Oropharyngeal dysphagia; Obstructive sleep apnea syndrome 04/04/2024 Telephone [facility] [address] [facility] [place] [address] Kelli HortonALYSSA 04/04/2024 Travel 03/29/2024 Telephone [facility] [address] [facility] [place] [address] [facility] [facility] Pereira Results from Last 3 Months Immunizations Name Administration [...] Sign Reading Time Taken Comments Blood Pressure 126/64 06/16/2024 11:10 AM EDT Pulse 76 05/13/2024 8:49 AM EST Temperature [...] Description 09/14/2024 9:00 AM EDT Clinical Support [facility] [address] [place] [address] Tammie Diaz, RN Health Maintenance Due Date [...] Procedure Name Priority Date/Time Associated Diagnosis Comments CTA CHEST PE PROTOCAL Routine 05/22/2024 12:18 AM EST HIGH SENSITIVITY TROPONIN I Routine 05/21/2024 10:48 PM EST XR CHEST 2 VIEWS Routine 05/21/2024 9:2 1 PM EST D DIMER HIGH SENSITIVITY Routine 05/21/2024 8:17 PM EST HIGH SENSITIVITY TROPONIN I Routine [...] Recently Relevant to Health Maintenance Results * CTA Chest PE Protocal (05/22/2024 12:18 AM EST) Anatomical Region Laterality Modality Body, Chest Computed Tomogra phy 05/22/2024 12:1 8 AM EST Narrative 05/22/2024 12:21 AM EST ? [facility] ?[address] ?[place] [address] ? CT Scan Report ? Signed ? Patient: Keenan,Ludivina N ?MR#: [id number] ? : 1955 ?Acct:[id number] ? Age/Sex: 68 / F ?ADM Date: 05/21/24 ? Loc: HO.ED ? Attending Dr: ? Ordering Physician: Khushbu Vaca MD ?? Date of Service: 05/21/24 ?? Procedure(s): CT angio chest PE protocol ?? Accession Number(s): [id number] ? cc: Khushbu Vaca MD; Kelli Horton AERIAL TRAM OPERATOR ? Report Number: ?? [id number]: Total DLP = ??313.00 mGy-cm ? CLINICAL HISTORY: CP, elevated D-dimer(246) rule out PE ? CT angiography chest using contrast. 3-D postprocessing ? Comparison: CR - XR CHEST 2V - 05/21/24 21:06 EST ?? CT/SR - CT LUNG SCREENING - 05/19/24 09:08 EST ? Findings: ?? No pulmonary embolism. ?? No thoracic aorta aneurysm. ?? Heart size is borderline enlarged. RV/LV ratio normal. ? No focal pulmonary consolidation, pneumothorax, or pleural effusion. ?? Minimal dependent ground-glass opacities are identified within the lungs ?? bilaterally, possibly consistent with scattered subsegmental atelectasis. ?? Visualized upper abdomen unremarkable. ?? No acute fractures. ? Impression: ?? 1. Negative for pulmonary embolism. ?? 2. Minimal dependent ground-glass opacities present within the bilateral ?? lungs, possibly consistent with scattered bilateral subsegmental ?? atelectasis. No focal pulmonary consolidation. ?? 3. Borderline cardiomegaly. ? This document has been electronically signed by: Tim Sr MD on ?? 05/22/2024 00:18:43 ? Dictated By: ?Tim Sr MD ? Signed By: ?<Electronically signed by Tim Sr MD in OV> ? 05/22/24 0020 ? DD/ 0018 ? TD/TT: 05/22/24 0018 ? Seamer: ? Procedure Note Donotuseinterpreter, Image - 05/22/[address] [address] [address] Scan Report Signed Patient: Ludivina Hussein [facility]#: [id number] : 8Acct:[id number] Age/Sex: 68 / FADM Date: 05/21/24 Loc: HO.ED Attending Dr: Ordering Physician: Khushbu Vaca MD Date of Service: 05/21/24 Procedure(s): CT angio chest PE protocol Accession Number(s): [id number] cc: Khushbu Vaca MD; [facility] Report Number: [id number]: Total DLP = 313.00 mGy-cm CLINICAL HISTORY: CP, elevated D-dimer(246) rule out PE CT angiography chest using contrast. 3-D postprocessing Comparison: CR - XR CHEST 2V - 05/21/24 21:[address]/SR - CT LUNG SCREENING - 05/19/24 09:08 EST Findings: No pulmonary embolism. No thoracic aorta aneurysm. Heart size is borderline enlarged. RV/LV ratio normal. No focal pulmonary consolidation, pneumothorax, or pleural effusion. Minimal dependent ground-glass opacities are identified within the lungs bilaterally, possibly consistent with scattered subsegmental atelectasis. Visualized upper abdomen unremarkable. No acute fractures. Impression: 1. Negative for pulmonary embolism. 2. Minimal dependent ground-glass opacities present within the bilateral lungs, possibly consistent with scattered bilateral subsegmental atelectasis. No focal pulmonary consolidation. 3. Borderline cardiomegaly. This document has been electronically signed by: Tim Sr MD on 05/22/2024 00:18:43 Dictated By: Tim Sr MD Signed By: <Electronically signed by Tim Sr MD in OV> 05/22/24 0020 DD/ 0018 TD/TT: 05/22/24 0018 Seamer: [facility] External Provider IMG CT PROCEDURES Final Result * High Sensitivity Troponin I (05/21/2024 10:48 PM EST) Only the most recent of2 resultswithin the time period is included. TROPONIN I HIGH SENSITIVITY <2.7 <3.5 - 17.0 ng/L [facility] Comment:The Rosas high sens itivity Troponin-I results should beused in conjunction with other diagnostic information suchas ECG, clinical observations and information, and patientsymptoms to aid in the diagnosis of VA. 05/21/2024 10:4 8 PM EST 05/21/2024 10:54 PM EST us Generic External Data Provider LAB BLOOD ORDERAB LES Final Result [facility] [address] [place] [address] [phone] * XR Chest 2 Views (05/21/2024 9:21 PM EST) Only the most recent of2 resultswithin the time period is included. Anatomical Region Laterality Modality Chest Radiographic Lia ging 05/21/2024 9:21 PM EST Narrative 05/21/2024 9:23 PM EST ? [facility] ?[address] ?[place] [address] ?XRay Report ? Signed ? Patient: Ludivina Hussein ?MR#: [id number] ? : 1955 ?Acct:[id number] ? Age/Sex: 68 / F ?ADM Date: 05/21/24 ? Loc: HO.ED ? Attending Dr: ? Ordering Physician: Vane Garcia ?? Date of Service: 05/21/24 ?? Procedure(s): XR chest 2V ?? Accession Number(s): [id number] ? cc: Vane Garcia; Kelli Horton ? [...] ? DD/ 20 ? TD/TT: 05/21/242120 ? Seamer: ? Procedure Note Donotuseinterpreter, Image - 05/21/[address] [address] XRay Report Signed Patient: Ludivina Hussein NMR#: [id number] : 8Acct:[id number] Age/Sex: 68 / FADM Date: 05/21/24 Loc: HO.ED Attending Dr: Ordering Physician: Vane Garcia Date of Service: 05/21/24 Procedure(s): XR chest 2V Accession Number(s): [id number] cc: Vane Garcia; [facility] CLINICAL HISTORY: cp 2 view chest x-ray. [...] in OV> 05/21/242121 DD/ 20 TD/TT: 05/21/242120 Seamer: [facility] External Provider IMG XR PROCEDURES Edited Result - Final * D Dimer High Sensitivity (05/21/2024 8:17 PM EST) D Dimer High Sensitivity 246 NG/ML [facility] Comment:D-DIMER HS REFERENCE RANGENote: Our assay reports D-Dimer Units (D- DU).The cut-off value for venous thromboembolic (VTE) disease is230 ng/mL. This value has a very high negative predictivevalue when the patient has a low to moderate clinicalprobability of VTE.The upper limit of normal is 243 ng/mL. 05/21/2024 8:17 PM EST 05/21/2024 8:20 PM EST Generic External Data Provider LAB BLOOD ORDERAB LES Final Result Performing Organization Address [facility] de Phone Number [facility] [address] [place] [phone] * SARS-CoV-2 RNA, Influenza A/B, and RSV RNA, Ql NAAT (05/21/2024 8:17 PM EST) Only the most recent of2 resultswithin the time period is included. Influenza A PCR NEGATIVE Negative [facility] Influenza B PCR NEGATIVE Negative [facility] Resp Syncy Virus RNA Qual PCR NEGATIVE Negative [facility] SARS COV2 PCR NEGATIVE Negative [facility] Comment:All test results mus t [...] use by authorized laboratories.Testing performed on the [employer] GeneXpert utilizingreal-time RT-PCR.All SARS CoV2 and positive influenza A/B results arereported to [facility]. 05/21/2024 8:17 PM EST 05/21/2024 8:20 PM EST us Generic External Data Provider LAB MICROBIOLOGY - GENERAL ORDERABLES Final Result Performing Organization Address [facility] de Phone Number [facility] [address] [place] [phone] * (ABNORMAL) CBC auto differential (05/21/2024 8:17 PM EST) Only the most recent of2 resultswithin the time period is included. White Blood Count 8.2 4.8 - 10.8 X10*3/uL [facility] Red Blood Count 3.94(L) 4.20 - 5.50 X10*6/uL [facility] Hemoglobin 12.2 12.0 - 16.0 g/dl [facility] Hematocrit 34.9(L) 37.0 - 47.0 % [facility] Mean Corpuscular Volume 88.6 80.0 - 98.0 fL [facility] Mean Corpuscular Hemoglobin 31.0 27.0 - 33.0 pg [facility] Mean Corpuscular HGB Conc 35.0 31.0 - 35.0 g/dl [facility] Red Cell Distribution Width 12.0 11.0 - 16.0 % [facility] Platelet Count 276 160 - 400 X10*3/uL [facility] Mean Platelet Volume 8.8(L) 9.4 - 12.3 fL [facility] Neutrophils Percent Auto 57.0 45 - 73 % [facility] Imm Gran Pct Auto 0.2 0.0 - 0.4 % [facility] Lymphocytes Percent Auto 30.1 20 - 40 % [facility] Monocytes Percent Auto 6.7 2 - 11 % [facility] Eosinophils Percent Auto 5.6(H) 0 - 4 % [facility] Basophils Percent Auto 0.4 0 - 2 % [facility] NRBC Pct Auto 0.0 0.0 - 0.2 /100WBC [facility] Neutrophils Absolute Auto 4.7 2.0 - 8.3 x10*3/uL [facility] Imm Gran Abs Auto 0.02 0.00 - 0.03 X10*3/uL [facility] Lymphocytes Absolute Auto 2.5 1.2 - 4.9 X10*3/uL [facility] Monocytes Absolute Auto 0.6 0.1 - 1.2 X10*3/uL [facility] Eosinophils Absolute Auto 0.5(H) 0.0 - 0.4 X10*3/uL [facility] Basophils Absolute Auto 0.0 0.0 - 0.2 X10*3/uL [facility] NRBC Abs Auto 0.000 0.0 - 0.012 X10*3/uL [facility] 05/21/2024 8:17 PM EST 05/21/2024 8:20 PM EST Generic External Data Provider LAB BLOOD ORDERAB LES Final Result Performing Organization Address [facility] de Phone Number [facility] [address] [place] [phone] * (ABNORMAL) Prothrombin Time-INR (05/21/2024 8:17 PM EST) Prothrombin Time 10.7(L) 10.9 - 12.4 SEC [facility] INTERNATIONAL NORM RATIO 0.9 0.9 - 1.1 [facility] Comment:INTERNATIONAL NORMAL IZED RATIO (INR) [...] ORDERAB LES Final Result Performing Organization Address [facility] de Phone Number [facility] [address] [place] [phone] * Magnesium (05/21/2024 8:17 PM EST) Magnesium 1.9 1.6 - 2.6 mg/dL [facility] 05/21/2024 8:17 PM EST 05/21/2024 8:20 PM EST us Generic External Data Provider LAB BLOOD ORDERAB LES Final Result [facility] [address] [place] [phone] * (ABNORMAL) Hepatic Function Panel (05/21/2024 8:17 PM EST) Bilirubin, Total 0.3 0.0 - 1.0 mg/dL [facility] Bilirubin, Direct 0.1 0.0 - 0.5 mg/dL [facility] Aspartate Amino Transferase 31 5 - 31 U/L [facility] Alanine Aminotransferase 40(H) 0 - 31 U/L [facility] Total Protein 7.2 6.5 - 8.0 g/dL [facility] Albumin Level 3.6 3.5 - 5.0 g/dL [facility] Alkaline Phosphatase 109 39 - 117 U/L [facility] 05/21/2024 8:17 PM EST 05/21/2024 8:20 PM EST us Generic External Data Provider LAB BLOOD ORDERAB LES Final Result Performing Organization Address City/[facility]/ZIP Co de Phone Number [facility] [address] [place] [phone] * (ABNORMAL) Basic Metabolic Panel (05/21/2024 8:17 PM EST) Sodium 140 135 - 145 mmol/L [facility] Potassium 4.2 3.3 - 5.1 mmol/L [facility] Chloride 105 96 - 108 mmol/L [facility] Carbon Dioxide 26 22 - 29 mmol/L [facility] Anion Gap 13 12 - 20 [facility] Urea Nitrogen (BUN) 16 9 - 16 mg/dL [facility] Creatinine, Serum 0.92 0.5 - 1.4 mg/dL [facility] Creatinine Clr Calc Pharmacy 56.1 [facility] Comment:Provided height and weight: 147.32 cm,86.4 kg.eGFR (calculated from the MDRD study equation) and eCrCl(calculated from the Cockcroft-Gault equation) are based ondifferent parameters and may not yield comparable results.If eCrCl result is absurd, please check patient'sheight/weight. Estimated Glomerular Filt Rate >60 [facility] Comment:Chronic Kidney Disea se: Estimated GFR < 60 mL/min/1.26f6Pmkamp Kidney Disease: Estimated GFR < 15 mL/min/1.73m2 Glucose 147(H) 60 - 115 mg/dL [facility] Calcium 9.1 8.4 - 10.2 mg/dL [facility] 05/21/2024 8:17 PM EST 05/21/2024 8:20 PM EST us Generic External Data Provider LAB BLOOD ORDERAB LES Final Result [facility] [address] [place] [phone] [phone] * CT Lung Screening Low dose (05/19/2024 4:13 PM EST) Anatomical Region Laterality Modality Lung Computed Tomogra phy 05/19/2024 4:13 PM EST Narrative 05/19/2024 4:16 PM EST ? [facility] ?[address] ?[place] [address] ? CT Scan Report ? Signed ? Patient: Keenan,Ludivina Cox ?MR#: [id number] ? : 1955 ?Acct:[id number] ? Age/Sex: 68 / F ?ADM Date: 02/27/25 ? Loc: HO.CT ? Attending Dr: Chaparro Jeffers MD ? Ordering Physician: Chaparro Jeffers MD ?? Date of Service: 05/19/24 ?? Procedure(s): CT lung screening ?? Accession Number(s): [id number] ? cc: Chaparro Jeffers MD; [facility] AERIAL TRAM OPERATOR ? Report Number: ?? [id number]: Total DLP = ?? 62.00 mGy-cm ? [...] ? 05/19/245 ? DD/ 1613 ? TD/TT: 05/19/24 1613 ? Seamer: ? Procedure Note Marie, Image - 05/19/[address] [address] [address] Scan Report Signed Patient: Ludivina Hussein [facility]#: [id number] : 8Acct:[id number] Age/Sex: 68 / FADM Date: 05/19/24 Loc: HO.CT Attending Dr: Chaparro Jeffers MD Ordering Physician: Chaparro Jeffers MD Date of Service: 05/19/24 Procedure(s): CT lung screening Accession Number(s): [id number] cc: Chaparro Jeffers MD; [facility] Report Number: [id number]: Total DLP = 62.00 mGy-cm CLINICAL HISTORY: [...] Pan Cruz MD in OV> 05/19/241614 DD/ 12 TD/TT: 05/19/241612 Seamer: us [facility] External Provider IMG CT PROCEDURES Final Result * (ABNORMAL) Comprehensive Metabolic Panel (05/05/2024 12:33 PM EST) Sodium 134(L) 135 - 145 mmol/L [facility] Potassium 3.4 3.3 - 5.1 mmol/L [facility] Chloride 99 96 - 108 mmol/L [facility] Carbon Dioxide 25 22 - 29 mmol/L [facility] Anion Gap 13 12 - 20 [facility] Urea Nitrogen (BUN) 16 9 - 16 mg/dL [facility] Creatinine, Serum 0.89 0.5 - 1.4 mg/dL [facility] Creatinine Clr Calc Pharmacy 57.0 [facility] Comment:Provided height and weight: 147.32 cm,84 kg.eGFR (calculated from the MDRD study equation) and eCrCl(calculated from the Cockcroft-Gault equation) are based ondifferent parameters and may not yield comparable results.If eCrCl result is absurd, please check patient'sheight/weight. Estimated Glomerular Filt Rate >60 [facility] Comment:Chronic Kidney Disea se: Estimated GFR < 60 mL/min/1.45n8Ctvwvm Kidney Disease: Estimated GFR < 15 mL/min/1.73m2 Glucose 136(H) 60 - 115 mg/dL [facility] Calcium 9.1 8.4 - 10.2 mg/dL [facility] Bilirubin, Total 0.4 0.0 - 1.0 mg/dL [facility] Aspartate Amino Transferase 35(H) 5 - 31 U/L [facility] Alanine Aminotransferase 44(H) 0 - 31 U/L [facility] Total Protein 7.4 6.5 - 8.0 g/dL [facility] Albumin Level 3.8 3.5 - 5.0 g/dL [facility] Alkaline Phosphatase 85 39 - 117 U/L [facility] 05/05/2024 12:3 3 PM EST 05/05/2024 12:43 PM EST Generic External Data Provider LAB BLOOD ORDERAB LES Final Result [facility] [address], [place] [phone] * POCT ANDRE-14 Urine Drug Screen (04/20/2024 9:13 AM EST) Opiate Screen, Urine Positive Urine Urine specimen obtained by clean catch procedure / Unknown 04/20/2024 9:13 AM EST Narrative Tammie Diaz RN - 04/20/2024 9:13 AM EST UTOX cup Lot#[id number] Exp. 12/15/25 Internal Pass Control [facility] AERIAL TRAM OPERATOR POINT OF CARE TEST ENTER/EDIT ORDERABLES Final Result * US Abdomen Comp w elastography (04/13/2024 10:01 AM EST) Anatomical Region Laterality Modality Abdomen Ultrasound 04/13/2024 10:0 1 AM EST Narrative 04/14/2024 7:45 AM EST ? [facility] ?[address] ?[place] [address] ? Ultrasound Report ? Signed ? Patient: Ludivina Hussein N ?MR#: [id number] ? : 1955 ?Acct:[id number] ? Age/Sex: 68 / F ?ADM Date: 01/22/25 ? Loc: HO.US ? Attending Dr: Jason Lora MD ? Ordering Physician: Jason Lora MD ?? Date of Service: 04/13/24 ?? Procedure(s): US abdomen comp w elastography ?? Accession Number(s): [id number] ? cc: Jason Lora MD; Kelli Horton [facility] ? EXAMINATION: ??US ABDOMEN COMPLETE WITH LIVER [...] DD/ 1001 ? TD/TT: 04/13/24 1033 ? Seamer: ? Procedure Note Donotuseinterpreter, Image - 04/14/2024 [place] [address] Ultrasound Report Signed Patient: Ludivina Hussein NMR#: [id number] : 8Acct:[id number] Age/Sex: 68 / FADM Date: 04/13/24 Loc: HO.US Attending Dr: Jason Lora MD Ordering Physician: Jason Lora MD Date of Service: 04/13/24 Procedure(s): US abdomen comp w elastography Accession Number(s): [id number] cc: Jason Lora MD; [facility] EXAMINATION: US ABDOMEN COMPLETE WITH LIVER ELASTOGRAPHY [...] 04/14/24 0742 DD/ 1001 TD/TT: 04/13/24 1033 Seamer: [facility] External Provider IMG US PROCEDURES Final Result * (ABNORMAL) POCT HGB A1C (04/04/2024 11:24 AM EST) Hemoglobin A1C 6.2(A) 4.0 - 6.0 % QC Media Lot # [id number] Lot# Expiration Date Blood 04/04/2024 11:2 4 AM EST [facility] POINT OF CARE TEST ENTER/EDIT ORDERABLES Final Result * POCT Glucose (04/04/2024 11:24 AM EST) Glucose Blood, POC 116 60 - 200 mg/dL QC Media Lot # [id number] Lot# Expiration Date ,025 Blood Capillary blood specimen / Unknown 04/04/2024 11:24 AM EST [facility] POINT OF CARE TEST ENTER/EDIT ORDERABLES Final Result * BI Mammogram Screening Tomosynthesis Bilateral (06/16/2023 10:15 AM EDT) Anatomical Region Laterality Modality Breast Bilateral Mammography 06/16/2023 10:1 5 AM EDT Narrative 07/02/2023 6:24 AM EDT ? [facility] ? [address] ?[place] [address] ? Mammography Report ? Signed ? Patient: Keenan,Ludivina N ?MR#: [id number] ? : 1955 ?Acct:[id number] ? Age/Sex: 67 / F ?ADM Date: 06/16/23 ? Loc: HO.MAMMO ? Attending Dr: Kelli Horton AERIAL TRAM OPERATOR ? Ordering Physician: Kelli Horton AERIAL TRAM OPERATOR ?Results: 1Nega ?? tive ? Date of Service: 06/16/23 ?Follow Up: 1 Year From Orig ?? inal Mammogram ? Procedure(s): MM tomosynthesis screening BI ?? Accession Number(s): [id number] ? cc: Kelli Horton AERIAL TRAM OPERATOR ? EXAMINATION: ?? MM SCREENING DIGITAL BREAST [...] 0620 ? DD/ 1015 ? TD/TT: ? Seamer: ? Procedure Note Marie, Shekhar - 07/02/2023 [place] [facility] [address] [place], [place] [address] Mammography Report Signed Patient: Ludivina Hussein#: [id number] : 8Acct:[id number] Age/Sex: 67 / FADM Date: 06/16/23 Loc: HO.MAMMO Attending Dr: Kelli Horton AERIAL TRAM OPERATOR Ordering Physician: Kelli Horton FNPResults: 1Nega tive Date of Service: 06/16/23Follow Up: 1 Year From Orig inal Mammogram Procedure(s): MM tomosynthesis screening BI Accession Number(s): [id number] cc: Kelli Horton AERIAL TRAM OPERATOR EXAMINATION: MM SCREENING DIGITAL BREAST TOMOSYNTHESIS, BILATERAL [...] in OV> 07/02/23 0620 DD/ 1015 TD/TT: Seamer: [facility] AERIAL TRAM OPERATOR IMG BI PROCEDURES Final Resul t * Lipid Panel, Standard (05/04/2023 8:32 AM EST) Triglycerides 118 <150 mg/dL [facility] Comment:Desirable Triglyceri de: less than 150 mg/dLBorderline High Triglyceride 150-199 mg/dLHigh Triglyceride: 200-499 mg/dLVery High Triglyceride: greater than or equal to 5OO mg/dL Cholesterol 128 <200 mg/dL [facility] Comment:Desirable Cholestero l: less than 200 mg/dLBorderline High Cholesterol: 200-239 mg/dLHigh Cholesterol: greater than 239 mg/dL LDL Cholesterol Calculated 59 <100 mg/dL [facility] Comment:Desirable LDL: less than 100 mg/dLNear Optimal/Above Optimal LDL: 110- 129 mg/dLBorderline High LDL: 130-159 mg/dLHigh LDL: 160-189 mg/dLVery High LDL: greater than or equal to 190 mg/dL HDL Cholesterol 46 >40 mg/dL [facility] Comment:Desirable HDL: great er than 40 mg/dL Note: This HDL assay may give artificially low results in patients with liver disease. Blood Venous blood specimen / Unknown 05/04/2023 8:32 AM EST 05/04/2023 11:34 AM EST [facility] AERIAL TRAM OPERATOR LAB BLOOD ORDERABLES Final Re sult [facility] [address] [place] [address] [phone] * Hm Colonoscopy (05/03/2018) Colonoscopy Normal Normal Narrative Madeleine Valle - 05/03/2018 Repeat in 10 years Historical Provider MD HEALTH MAINTENANCE Final Result * HPV mRNA E6/E7 (03/03/2016 11:45 AM EST) HPV mRNA E6/E7 Not Detected NOT DETECTED [facility] Comment: This test was performed using the APTIMA(R) HPV Assay ([employer] This assay detects E6/E7 viral messenger RNA (mRNA) from 14 high-risk HPV types (16,18,31,33,35,39,45,51, 52,56,58,59,66,68). For additional information please refer to: http://education.InStaff/faq/GUV097b1 (This link is being provided for informational/ educational purposes only.) Test Performed by [facility], [facility], [address] [place] [address] Leonardo Cano M.D., Ph.D., Director of Laboratories , [place] [id number] Please note: ??Effective 12/03/2015, HPV testing will be performed using [employer]'s APTIMA test which targets mRNA. Detecting mRNA instead of DNA, as in older methods, offers significant improvements in specificity. 03/03/2016 11:4 5 AM EST Nandini Biswas NP HISTORICAL/NON ORDERABLE LABS Fi nal Result [facility] [address] [place] [address], from Last 3 Months or Most Recently Relevant to Health Maintenance Insurance [facility] Care Teams Icing Maker Relationship Specialty Start Date End Date Kelli Horton FNP [address] [place] [address] PCP - General Family Medicine 05/20/22
--- OUTSIDE RECORDS SUMMARY | 2024-06-24 11:20 | XMS_ITS | Encounter Summary ---
Author Organization [facility] Address [address] [place] [address] Phone Care Team Providers Care Physics Technician Name Role Phone [facility] Primary Care Provider [phone] Encounter Details Date Type Department Care Team (Late Contact Info) Description 12/23/2021 Documentation Only [facility] [place], [address] [place] [address] Shaun Morales PA Social History [...] Visit [facility] [address] [place] [address] Danny Mahoney MD [address] [phone] documented as of this encounter Visit Diagnoses Not on filedocumented in this encounter Care Teams Physics Technician Relationship Specialty Start Date End Date [place], Kelli [address] [place], [place] [phone] PCP - General 11/26/23 documented as of this encounter
--- OUTSIDE RECORDS SUMMARY | 2024-06-24 11:20 | XMS_ITS | Encounter Summary ---
Author Organization [employer] Address [address] [facility] 7 [place] [address] Care Team Providers Care Naval Gunfire Spotter Name Role Phone [facility] Primary Care Provider [phone] Reason for Visit * Reason Onset Date Comments Referral 12/11/2022 Encounter Details Date Type Department Care Team (Late Contact Info) Description 12/11/2022 Telephone [facility] [address] [place] [address] [facility] [address] [place] [address] Referral Social History Tobacco Use Types Packs/Day [...] and medication list to be faxed to [phone]. documented in this encounter Plan of Treatment Upcoming Encounters Date Type Department Care Team (Late st Contact Info) Description 09/14/2024 9:00 AM EDT Clinical Support [facility] [address] [place] [address] Tammie Diaz RN documented as of this encounter Visit Diagnoses Not on filedocumented in this encounter Additional Health Concerns Assessment Noted Time PHQ-9 Depression Total Score: 21 022 10:03 AM EST documented as of this encounter Care Teams Naval Gunfire Spotter Relationship Specialty Start Date End Date Kelli Horton FNP [address] [place] [address] PCP - General Family Medicine 05/20/22 documented as of this encounter
--- OUTSIDE RECORDS SUMMARY | 2024-06-24 11:20 | XMS_ITS ---
Author Organization [facility] Address [address] [place] [address] Care Team Providers Care Calender Let Off Operator Name Role Phone [facility] Primary Care Provider UnaJason Birmingham Unavailable [phone] REASON FOR VISIT r/f request ursodiol Medications Medication SIG (Take, Route, Fr equency, Duration) Notes Start Date End Date Status Magdiel 250 250 MG 3 tablets Orally Twi ce a day for 30 days 11/28/2013 Active Encounters Encounter Location Date Provider Diagnosis [facility] [address] [place] [address] 05/12/2024 Jason Lora Plan Of Treatment Medication Medication Name Sig Start Date Stop Date Notes Magdiel 250 250 MG 3 tablets Orally Twice a day for 30 days 0 11/28/2013 Next Appt Details Provider Name:Jason Lora , 02/23/2025 09:20:00 AM, [address], [address], [place], [address], Progress Notes * TRUPTI MAGUIRE NDOB:1955 ( 68 yo F)Acc No.[id number]:05/12/2024 Patient:?TRUPTI MAGUIRE :1955???Age:68 Y???Sex:Female Address:[address] [place] [address] * Refills? Refill Magdiel 250 Tablet, 250 MG, Orally, 180 Tablet, 3 tablets, Twice a day, 30 days, Refills=11 * true * Date:? Generated for Printi sammy/Familesg/eTransmitting on:?06/24/2024 11:19 AM EDT
--- OUTSIDE RECORDS SUMMARY | 2024-06-24 11:20 | XMS_ITS | Encounter Summary ---
Author Organization [employer] Address [address] [facility] 7t [place] [address] Care Team Providers Care Sand Mill Operator Facing Sand Name Role Phone Beatriz Ford [facility] Primary Care Provider Aj bradford [facility] Primary Care Provider [phone] Reason for Visit * Reason Comments Med Refill Encounter Details Date Type Department Care Team ([facility] st Contact Info) Description 04/03/2022 Refill [facility] [address] [place] [address] Name, MD Haroon [address] [place] [address] Chronic pain syndrome Social History Tobacco Use [...] on hydrocodone med , please contact .. (Ukrainian speaker) documented in this encounter Plan of Treatment Upcoming Encounters Date Type Department Care Team (Late st Contact Info) Description 09/14/2024 9:00 AM EDT Clinical Support [facility] [address] [place] [address] Tammie Diaz RN documented as of this encounter Visit Diagnoses Diagnosis Chronic pain syndrome documented in this encounter Additional Health Concerns Assessment Noted Time PHQ-9 Depression Total Score: 21 022 10:03 AM EST documented as of this encounter Care Teams Sand Mill Operator Facing Sand Relationship Specialty Start Date End Date Beatriz Ford FNP PCP - General Family Medicine 02/21/22 05/19/22 Kelli Horton FNP [address] [place] [address] PCP - General Family Medicine 05/20/22 documented as of this encounter
--- OUTSIDE RECORDS SUMMARY | 2024-06-24 11:20 | XMS_ITS | Patient Health Record ---
Author Organization [facility] Address [address] [place] [address] Care Team Providers Care Sprinkler Worker Name Role Phone [facility] Primary Care Provider Unava ilable Jason Lora Unavailable [phone] Allergies No Known Allergies Results Component Value Reference Range Notes US abdomen comp w elastograp hy (Not yet reviewed by provider) Interpretation: Performing Lab: Notes/Report: [facility] [address] [place] [address] Ultrasound Report Signed Patient: Ludivina Hussein MR#: [id number] : 1955 Acct:[id number] Age/Sex: 68 / F ADM Date: 04/13/24 Loc: HO.US Attending Dr: Jason Lora MD Ordering Physician: Jason Lora MD Date of Service: 04/13/24 Procedure(s): US abdomen comp w elastography Accession Number(s): [id number] cc: Jason Lora MD; [facility] EXAMINATION: US ABDOMEN COMPLETE WITH LIVER [...] 04/14/24 0742 DD/ 1001 TD/TT: 04/13/24 1033 Apartment Community Manager: [place] [id number] Ultrasound Report Signed Patient: Ludivina Hussein MR#: [id number] : 1955 Acct:[id number] Age/Sex: 68 / F ADM Date: 04/13/24 Loc: HO.US Attending Dr: Jason Lora MD Ordering Physician: Jason Lora MD Date of Service: 04/13/24 Procedure(s): US abd omen comp w elastography Accession Number(s): [id number] cc: Jason Lora MD; [facility] EXAMINATION: US ABDO MEN COMPLETE WITH LIVER [...] by: Jason Lombardi MD 04/14/2024 07:42 AM [facility] Dictated By: Jason Lombardi MD Signed By: <Ender nava signed by Jason Lombardi MD in OV> 04/14/24 0742 DD/ 1001 TD/TT: 04/13/24 1033 Apartment Community Manager: Reason For Referral No Information Medications Medication SIG (Take, Route, Frequency, Duration) Notes Start Date End Date Status traZODone HCl 150 MG 1 tablet at bedtime Orally Once a day Active Omeprazole 20 MG Take 1 every morning Orally Once a day for 30 days 06/15/2024 Active metFORMIN HCl 500mg Active HYDROcodone-Acetaminophe n [...] Problem Status W/U Status Risk Notes Problem 694649377 Encounter for screening for malignant neoplasm of colon (Z12.11) Active confirmed Problem 60000130 Other cirrhosis of liver (K74.69) Active confirmed Problem 882585967 Fatty liver (K76.0) Active confirmed Problem [id number] History of hepatitis C (Z86.19) Active confirmed Problem 5868490 Chronic gastritis without bleeding, unspecified gastritis type (K29.50) Active confirmed Vital Signs Blood pressure diastolic 00 mm Hg 02/25/2024 Height 58 in 02/25/2024 Blood pressure systolic 00 mm Hg 02/25/2024 Weight 185 lbs 02/25/2024 BMI 38.66 kg/m2 02/25/2024 Encounters Encounter Location Date Provider Diagnosis [facility] [address] [place] [phone] 02/25/2024 Jason Lora Other cirrhosis of liver K74.69 ; History of hepatitis C Z86.19 and Fatty liver K76.0 [facility] [address] [place] [phone] 07/02/2023 Jason Lora [facility] [address] [place] [phone] 05/12/2024 Jason Lora [facility] [address] [place] [phone] 06/15/2024 Jason Lora Assessments Encounter Date Diagnosis (ICD Code) Assessment [...] again for allowing me to participate in Ludiivna's care. I shall continue to keep you [...] [address], [address], [place], [address], Insurance Providers Payer Name Payer Address Payer Phone Subscriber Number Group Number Insured Name Patient Relationship to Insured Coverage Start Date Coverage End Date [facility] Claims [address] [address] [place] [address] [id number] LUDIVINA HUSSEIN Self - patient is the insured MEDICAID OF [facility] [address] [place] [address] [id number] LUDIVINA HUSSEIN Self - patient is the [...] Bladder suspension by Dr Avelino lama in [place] for urinary incontinence on 09/19/13. Veins in her left leg Right knee replacement with Dr. Solorzano 2020
--- OUTSIDE RECORDS SUMMARY | 2024-06-24 11:20 | XMS_ITS | Encounter Summary ---
Author Organization [facility] Address [address] [place] [address] Phone Care Team Providers Care System Support Administrator Name Role Phone [facility] Primary Care Provider [phone] Encounter Details Date Type Department Care Team (Late Contact Info) Description 12/20/2021 Documentation Only [facility] [place], [address] [place] [address] Shaun Morales PA Social History [...] Visit [facility] [address] [place] [address] Danny Mahoney MD [address] [phone] documented as of this encounter Visit Diagnoses Not on filedocumented in this encounter Care Teams System Support Administrator Relationship Specialty Start Date End Date [place], Kelli [address] [place], [place] [phone] PCP - General 11/26/23 documented as of this encounter
--- OUTSIDE RECORDS SUMMARY | 2024-06-24 11:20 | XMS_ITS | Encounter Summary ---
Author Organization [facility] Address [address] [place] [address] Phone Care Team Providers Care Bacon Slicer Name Role Phone [facility] Primary Care Provider [phone] Encounter Details Date Type Department Care Team (Late Contact Info) Description 12/23/2021 Documentation Only [facility] [place], [address] [place] [address] Shaun Morales PA Social History [...] Visit [facility] [address] [place] [address] Danny Mahoney MD [address] [phone] documented as of this encounter Visit Diagnoses Not on filedocumented in this encounter Care Teams Bacon Slicer Relationship Specialty Start Date End Date [place], Kelli [address] [place], [place] [phone] PCP - General 11/26/23 documented as of this encounter
--- OUTSIDE RECORDS SUMMARY | 2024-06-24 11:20 | XMS_ITS | Encounter Summary ---
Author Organization [employer] Address [address] [facility] 7t [place] [address] Care Team Providers Care Verifier Operator Name Role Phone Beatriz Ford SUPERVISOR TREE TRIMMING Primary Care Provider Kelli [place] SUPERVISOR TREE TRIMMING Primary Care Provider [phone] Encounter Details Date Type Department Care Team ([facility] Contact Info) Description 03/20/[address] [phone] Beatriz Ford FNP Social History Tobacco Use [...] Department Care Team (Late Contact Info) Description 09/14/2024 9:00 AM EDT Clinical Support [address] [phone] Tammie Diaz RN documented as of this encounter Visit Diagnoses Not on filedocumented in this encounter Care Teams Verifier Operator Relationship Specialty Start Date End Date Beatriz Ford FNP PCP - General Family Medicine 02/21/22 05/19/22 [place] FNP [address] [place] [address] PCP - General Family Medicine 05/20/22 documented as of this encounter
--- OUTSIDE RECORDS SUMMARY | 2024-06-24 11:20 | XMS_ITS | Encounter Summary ---
Author Organization [facility] Address [address] [facility] 7t [place] [address] Care Team Providers Care Service Center Appraiser Name Role Phone [facility] Primary Care Provider [phone] Reason for Visit * Reason Onset Date Comments Med Refill 03/15/2024 Encounter Details Date Type Department Care Team ([facility] st Contact Info) Description 03/15/2024 Telephone [facility] [address] [place] [address] [facility] [address] [place] [address] Med Refill Social History Tobacco Use Types [...] medication refill. Medications needing refill : HYDROcodone-acetaminophen ([place]) 5-325 MG tablet To be sent to: [facility] [place], [place] - [address] [place] [address] documented in this encounter Plan of Treatment Upcoming Encounters Date Type Department Care Team (Late st Contact Info) Description 09/14/2024 9:00 AM EDT Clinical Support [facility] [address] [place] [address] Tammie Diaz, LADONNA documented as of this encounter Visit Diagnoses Not on filedocumented in this encounter Additional Health Concerns Assessment Noted Time PHQ-9 Depression Total Score: 0 12/25/19 10:25 AM EDT documented as of this encounter Care Teams Service Center Appraiser Relationship Specialty Start Date End Date Kelli Horton FNP [address] [place] [address] PCP - General Family Medicine 05/20/22 documented as of this encounter
[2024-06-24 13:04] LABS: Cholesterol 131 mg/dL (<200); Triglycerides 93 mg/dL (<150)
[2024-06-24 14:06] LABS: HDL Cholesterol 49 mg/dL (>40); LDL Cholesterol Calculated 64 mg/dL (<100)
== END 2024-06-24 10:01 | disposition home or self-care (01) ==
LOC: HO.HHCL 10:00
PROVIDERS: Visit Provider Registered Nurse
DX: I10 Essential (primary) hypertension (principal)
CPT/HCPCS: 36415; 80061

== ENCOUNTER 2024-07-14 10:17 | Day surgery (SDC) | payer OTHER, SELFPAY ==
--- OUTSIDE RECORDS SUMMARY | 2024-06-28 15:18 | XMS_ITS | Encounter Summary ---
Author Organization [facility] Address [address] [place] [address] Phone Care Team Providers Care Microgrinder Operator Name Role Phone [facility] Primary Care Provider Encounter Details Date Type Department Care Team (Late Contact Info) Description 12/23/2021 Documentation Only [facility] [place], [address] [place] [address] Shaun Morales PA Social History [...] Visit [facility] [address] [place] [place] [address] Danny Mahoney MD [address] [phone] documented as of this encounter Visit Diagnoses Not on filedocumented in this encounter Care Teams Microgrinder Operator Relationship Specialty Start Date End Date [place], Kelli [address] [place], [place] [phone] PCP - General 11/26/23 documented as of this encounter
--- OUTSIDE RECORDS SUMMARY | 2024-06-28 15:18 | XMS_ITS | Encounter Summary ---
Author Organization [employer] Address [address] [facility] 7t [place] [address] Care Team Providers Care Media Coordinator Name Role Phone Kelli Horton [facility] Primary Care Provider Reason for Visit * Reason Comments Med Refill Encounter Details Date Type Department Care Team (Late st Contact Info) Description 12/16/2022 Refill [facility] [address] [place] [phone] Name, MD Haroon [address] [place] [phone] Chronic low back pain, unspecified back pain [...] Description 09/14/2024 9:00 AM EDT Clinical Support [facility] [address] [place] [phone] Tammie Diaz RN documented as of this encounter Visit Diagnoses Diagnosis Chronic low back pain, unspecified back pain laterality, unspecified whether sciatica present documented in this encounter Additional Health Concerns Assessment Noted Time PHQ-9 Depression Total Score: 21 022 10:03 AM EST documented as of this encounter Care Teams Media Coordinator Relationship Specialty Start Date End Date Kelli Horton FNP [address] [place] [address] PCP - General Family Medicine 05/20/22 documented as of this encounter
--- OUTSIDE RECORDS SUMMARY | 2024-06-28 15:18 | XMS_ITS ---
Author Organization [facility] Address [address] [facility] [address] [place] [phone] Care Team Providers Care Laborer Brooder Farm Name Role Phone [facility] Primary Care Provider UnaJason Birmingham Unavailable [phone] REASON FOR VISIT omeprazole Rx Medications Medication SIG (Take, Route, Fr equency, Duration) Notes Start Date End Date Status Omeprazole 20 MG Take 1 every morning Orally Once a day for 30 days 06/15/2024 Active Encounters Encounter Location Date Provider Diagnosis [facility] [address] [place] [address] [place] [phone] 06/15/2024 Jason Lora Plan Of Treatment Medication Medication Name Sig Start Date Stop Date Notes Omeprazole 20 MG Take 1 every morning Orally Once a day for 30 days 06/15/2024 Next Appt Details Provider Name:Jason Lora , 02/23/2025 09:20:00 AM, [address] [facility], Suite [facility], [place], [address], Progress Notes * TRUPTI MAGUIRE NDOB:1955 ( 68 yo F)Acc No.[id number]:06/15/2024 Patient:?TRUPTI MAGUIRE :1955???Age:68 Y???Sex:Female Address:[address] [place] [address] * Refills? Start Omeprazole Capsule Delayed Release, 20 MG, Orally, 30, Take 1 every morning, Once a day, 30 days, Refills=11 * true * Date:? Generated for Esteban christianson/Marcel/eTransmitting on:?06/28/2024 03:18 PM EDT
--- OUTSIDE RECORDS SUMMARY | 2024-06-28 15:18 | XMS_ITS | Encounter Summary ---
Author Organization [facility] Address [address] [place] [address] Phone Care Team Providers Care Adzing And Boring Machine Operator Name Role Phone [facility] Primary Care Provider [phone] Encounter Details Date Type Department Care Team (Late Contact Info) Description 12/20/2021 Documentation Only [facility] [place], [address] [place] [address] Shaun Morales PA Social History [...] Visit [facility] [address] [place] [address] Danny Mahoney MD [address] [phone] documented as of this encounter Visit Diagnoses Not on filedocumented in this encounter Care Teams Adzing And Boring Machine Operator Relationship Specialty Start Date End Date [place], [place] [address] [place], [place] [id number] PCP - General 11/26/23 documented as of this encounter
--- OUTSIDE RECORDS SUMMARY | 2024-06-28 15:18 | XMS_ITS | Encounter Summary ---
Author Organization [employer] Address [address] [facility] 7t [place] [address] Care Team Providers Care Drilling Rig Operator Name Role Phone [place] [facility] Primary Care Provider [phone] Encounter Details Date Type Department Care Team ([facility] st Contact Info) Description 06/24/2024 Orders Only [facility] [address] [place] [address] [place], [facility] [address] [place] [address] Social History Tobacco Use Types Packs/Day Years [...] t he electric, gas, oil or water [employer] threatened to shut off services in your [...] Description 09/14/2024 9:00 AM EDT Clinical Support [facility] [address] [place] [address] Tammie Diaz RN documented as of this encounter Procedures Procedure Name Priority Date/Time Associated Diagnosis Comments LIPID PANEL, STANDARD Routine 06/24/2024 10:01 AM EDT documented in this encounter Results * Lipid Panel, Standard (06/24/2024 10:01 AM EDT) Triglycerides 93 <150 mg/dL [facility] Comment:Desirable Triglyceri de: less than 150 mg/dLBorderline High Triglyceride 150-199 mg/dLHigh Triglyceride: 200-499 mg/dLVery High Triglyceride: greater than or equal to 5OO mg/dL Cholesterol 131 <200 mg/dL [facility] Comment:Desirable Cholestero l: less than 200 mg/dLBorderline High Cholesterol: 200-239 mg/dLHigh Cholesterol: greater than 239 mg/dL LDL Cholesterol Calculated 64 <100 mg/dL [facility] Comment:Desirable LDL: less than 100 mg/dLNear Optimal/Above Optimal LDL: 110- 129 mg/dLBorderline High LDL: 130-159 mg/dLHigh LDL: 160-189 mg/dLVery High LDL: greater than or equal to 190 mg/dL HDL Cholesterol 49 >40 mg/dL [facility] Comment:Desirable HDL: great er than 40 mg/dL Note: This HDL assay may give artificially low results in patients with liver disease. 06/24/2024 10:0 1 AM EDT 06/24/2024 11:18 AM EDT [facility] LAB BLOOD ORDERABLES Final Re sult [facility] [address] [place] [address] [phone] documented in this encounter Visit Diagnoses Not on filedocumented in this encounter Additional Health Concerns Assessment Noted Time PHQ-9 Depression Total Score: 0 04/04/19 25 11:23 AM EST documented as of this encounter Care Teams Drilling Rig Operator Relationship Specialty Start Date End Date Kelli Horton FNP [address] [place] [id number] PCP - General Family Medicine 05/20/22 documented as of this encounter
--- OUTSIDE RECORDS SUMMARY | 2024-06-28 15:18 | XMS_ITS | Encounter Summary ---
Author Organization [facility] Address [address] [place] [address] Phone Care Team Providers Care Systems Mechanic Name Role Phone [facility] Primary Care Provider Encounter Details Date Type Department Care Team (Late Contact Info) Description 12/10/2021 Documentation Only [facility] [place], [address] [place] [address] Shaun Morales PA Social History [...] Visit [facility] [address] [place] [address] Danny Mahoney MD [address] [phone] documented as of this encounter Visit Diagnoses Not on filedocumented in this encounter Care Teams Systems Mechanic Relationship Specialty Start Date End Date [place], [place] [address] [place], [place] [phone] PCP - General 11/26/23 documented as of this encounter
--- OUTSIDE RECORDS SUMMARY | 2024-06-28 15:18 | XMS_ITS | Encounter Summary ---
Author Organization [employer] Address [address] [facility] 7t [place] [address] Care Team Providers Care Custom Framing Specialist Name Role Phone [place] [facility] Primary Care Provider [phone] Reason for Visit * Reason Onset Date Comments Med Refill 02/11/2023 Encounter Details Date Type Department Care Team ([facility] st Contact Info) Description 02/11/2023 Telephone [facility] [address] [place] [address] [facility] [address] [place] [address] Med Refill Social History Tobacco Use Types [...] from pt requesting med refill on; HYDROcodone-acetaminophen ([place]) 5-325 MG tablet documented in this encounter Plan of Treatment Upcoming Encounters Date Type Department Care Team (Late st Contact Info) Description 09/14/2024 9:00 AM EDT Clinical Support [facility] [address] [place] [address] Tammie Diaz, RN documented as of this encounter Visit Diagnoses Not on filedocumented in this encounter Additional Health Concerns Assessment Noted Time PHQ-9 Depression Total Score: 21 022 10:03 AM EST documented as of this encounter Care Teams Custom Framing Specialist Relationship Specialty Start Date End Date Kelli Horton FNP [address] [place] [address] PCP - General Family Medicine 05/20/22 documented as of this encounter
--- OUTSIDE RECORDS SUMMARY | 2024-06-28 15:18 | XMS_ITS | Encounter Summary ---
Author Organization [employer] Address [address] [facility] 7t [place] [address] Care Team Providers Care 2Nd Pressman Name Role Phone [place] [facility] Primary Care Provider [phone] Reason for Visit * Reason Onset Date Comments Nurse Triage 02/11/2023 Encounter Details Date Type Department Care Team ([facility] st Contact Info) Description 02/11/2023 Telephone [facility] [address] [place] [address] [place] [facility] [address] [place] [address] Nurse Triage Social History Tobacco Use Types [...] past 12 months, has t he electric, [employer], oil or water [employer] threatened to shut off services in your [...] the only possible outcome for this symptom 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 documented in this encounter Plan of Treatment Upcoming Encounters Date Type Department Care Team (Late st Contact Info) Description 09/14/2024 9:00 AM EDT Clinical Support [facility] [address] [place] [address] Tammie Diaz RN documented as of this encounter Visit Diagnoses Not on filedocumented in this encounter Additional Health Concerns Assessment Noted Time PHQ-9 Depression Total Score: 21 03/21/ 022 10:03 AM EST documented as of this encounter Care Teams 2Nd Pressman Relationship Specialty Start Date End Date Kelli Horton FNP [address] [place] [address] PCP - General Family Medicine 05/20/22 documented as of this encounter
--- OUTSIDE RECORDS SUMMARY | 2024-06-28 15:18 | XMS_ITS | Encounter Summary ---
Author Organization [employer] Address [address] [facility] 7t [place] [address] Care Team Providers Care Mobility Architect Name Role Phone [place] [facility] Primary Care Provider [phone] Reason for Visit * Reason Onset Date Comments stable lab letter 06/28/2024 Encounter Details Date Type Department Care Team ([facility] st Contact Info) Description 06/28/[address] [facility] [address] [place] [address] [facility] [place] [address] [place] [address] stable lab letter Social History Tobacco Use Types Packs/Day Years [...] encounter Miscellaneous Notes * Telephone Encounter - Francine Don - 06/28/2024 9:06 AM EDT Mailed stable lab letter. documented in this encounter Plan of Treatment Upcoming Encounters Date Type Department Care Team (Late st Contact Info) Description 09/14/2024 9:00 AM EDT Clinical Support [facility] [address] [place] [address] Tammie Diaz, LADONNA documented as of this encounter Visit Diagnoses Not on filedocumented in this encounter Additional Health Concerns Assessment Noted Time PHQ-9 Depression Total Score: 0 04/04/19 25 11:23 AM EST documented as of this encounter Care Teams Mobility Architect Relationship Specialty Start Date End Date Kelli Horton FNP [address] [place] [address] PCP - General Family Medicine 05/20/22 documented as of this encounter
--- OUTSIDE RECORDS SUMMARY | 2024-06-28 15:18 | XMS_ITS | Encounter Summary ---
Author Organization [employer] Address [address] [facility] 7t [place] [address] Care Team Providers Care Record Systems Analyst Name Role Phone [facility] Primary Care Provider [phone] Reason for Visit * Reason Comments Med Refill Encounter Details Date Type Department Care Team (Late st Contact Info) Description 12/17/2023 Refill [facility] [address] [place] [address] [facility] [address] [place] [address] Chronic low back pain, unspecified back pain [...] Description 09/14/2024 9:00 AM EDT Clinical Support [facility] 230 [place] [address] Tammie Diaz RN documented as of this encounter Visit Diagnoses Diagnosis Chronic low back pain, unspecified back pain laterality, unspecified whether sciatica present documented in this encounter Additional Health Concerns Assessment Noted Time PHQ-9 Depression Total Score: 0 07/22/19 24 9:10 AM EDT documented as of this encounter Care Teams Record Systems Analyst Relationship Specialty Start Date End Date Kelli Horton FNP [address] [place] [address] PCP - General Family Medicine 05/20/22 documented as of this encounter
--- OUTSIDE RECORDS SUMMARY | 2024-06-28 15:18 | XMS_ITS | Encounter Summary ---
Author Organization [facility] Address [address] [place] [address] Phone Care Team Providers Care Sales Development Director Name Role Phone [facility] Primary Care Provider [phone] Encounter Details Date Type Department Care Team (Late Contact Info) Description 12/23/2021 Documentation Only [facility] [place], [address] [place] [address] Shaun Morales PA Social History [...] [facility] [address] [place] [address] Danny Mahoney MD [address] [phone] documented as of this encounter Visit Diagnoses Not on filedocumented in this encounter Care Teams Sales Development Director Relationship Specialty Start Date End Date [place], [place] [address] [place], [place] [phone] PCP - General 11/26/23 documented as of this encounter
--- OUTSIDE RECORDS SUMMARY | 2024-06-28 15:18 | XMS_ITS | Encounter Summary ---
Author Organization [employer] Address [address] [facility] 7t [place] [address] Care Team Providers Care Latexer Name Role Phone Kelli Horton CONTROL ROOM AGENT Primary Care Provider [phone] Encounter Details Date Type Department Care Team ([facility] st Contact Info) Description 02/06/2023 Abstract [facility] [address] [place] [address] Madeleine Valle Social History Tobacco Use Types [...] Description 09/14/2024 9:00 AM EDT Clinical Support [facility] [address] [place] [address] Tammie Diaz RN documented as of this [...] documented as of this encounter Care Teams Latexer Relationship Specialty Start Date End Date Kelli Horton FNP [address] [place] [address] PCP - General Family Medicine 05/20/22 documented as of this encounter
--- OUTSIDE RECORDS SUMMARY | 2024-06-28 15:18 | XMS_ITS | Clinical Summary ---
Author Organization [facility] Address [address] [facility] [address] [place] [address] Phone Care Team Providers Care Jig Builder Helper Name Role Phone Kelli Horton Primary Care Provider [phone] Allergies Active Allergy Reactions Criticality Noted Date [...] follow up pelvic exam C-scope: Previously at [facility]. Date unknown BMD: Routine age 67 Right bundle-branch block 07/22/20222022 Obstructive sleep apnea syndrome 03/21/2022 02/24/2023 Overview (02/24/2023): ?? Has CPAP Chronic low back pain 03/12/2022 02/24/2023 Overview (02/24/2023): ?? Hydrocodone t.i.d as needed. ?? Compliant with PRODUCT ACCOUNTANT agreement Pain of knee region 03/12/2022 02/24/2023 [...] Exam: [facility] by [facility] [place] Lipid panel: 03/2022 WNL ASCVD: LDL < [...] Visit [facility] [address] [place] [address] [place] [address] Danny Mahoney MD [address] [phone] Health Maintenance Due Date Last Done Comments [...] A1C 10/22/2023 024, 02/20/2023, 03/21/2022 Influenza Vaccine (Season Ended) 2024 04/22/2023, 12/16/2021, 11/21/2021, Additional history exists Pneumococcal Vaccine: 65+ Years Completed 04/22/2023, 03/27/2017, 12/31/2007 Insurance [place]ICAID [place] [place] [address] ([id number]) [place] [place] [address] ([id number]) Care Teams Jig Builder Helper Relationship Specialty Start Date End Date [facility] [address] [place] [address] PCP - General 11/26/23
--- OUTSIDE RECORDS SUMMARY | 2024-06-28 15:19 | XMS_ITS | Clinical Summary ---
Author Organization [employer] Address [address] [facility] 7[address] [place] [address] Care Team Providers Care Program Assistant Name Role Phone Kelli Horton WIRELESS TECHNICIAN Primary Care Provider [phone] Allergies Active Allergy Reactions Criticality Noted Date [...] unspecified whether stage 3a or 3b CKD (CMS/[facility]) test blood sugar twice daily 100 [...] Once daily. 025 2024 Discontinued HYDROcodone-patricia taminophen (Amboy) 5-325 MG tabletIndicatio ns:Chronic low back pain, [...] follow up pelvic exam C-scope: [place] [facility] Date unknown. Will request records BMD: Routine age 67 Assessment & Plan (05/05/2023 8:28 PM EST): DEXA scan ordered RBBB 07/22/2022 Obstructive sleep apnea syndrome 03/21/2022 Overview (07/28/2022): ?? Has CPAP Chronic low back pain 03/12/2022 Overview (07/28/2022): ?? Hydrocodone t.i.d as needed. ?? Compliant with STRATEGIC PLANNING DIRECTOR agreement Assessment & Plan (05/05/2023 8:15 PM EST): Continue hydrocodone as prescribed. Patient will bring tablets to pharmacy to determine if able to order prior formulation Declines chronic pain group at this time Follow as scheduled with STRATEGIC PLANNING DIRECTOR Chronic pain of right knee 03/12/2022 Overview (07/28/2022): ?? Referred to PT for balance training 06/2022 Type 2 [facility] current use of insulin 10/01/2020 Overview (04/04/2024): Metformin monotherapy CKD stage 3 followed by nephrology Foot Exam: 03/2024 risk 0 Eye Exam: Followed [facility] in [place] Statin: Yes ASA: No PATRICIA/ARB: Yes Encouraged [...] Overview (04/04/2024): Followed by DR. Lora at [facility] Hepatic steatosis, hx of chronic HCV [...] Problem Noted Date Diagnosed Date Resolved Date [place] eye disease of right eye 03/05/2023 03/05/2023 [...] Encounters Date Type Department Care Team Description 06/28/2024 Telephone [facility] [address] [facility] [facility] [place] [address] Kelli Horton FNP stable lab letter 06/24/2024 Orders Only [facility] [address] [facility] [place] [address] Kelli Horton FNP 06/16/2024 Travel 06/15/2024 Refill [facility] [address] [facility] [facility] [address] [place] [address] Kelli Horton FNP Pain in right shoulder; Moderate persistent asthma, unspecified whether complicated 06/08/2024 Refill [facility] [address] [facility] [facility] [address] [place] [address] Kelli Horton FNP 05/24/2024 Telephone [place] [facility] [address] [place] [address] [place] [facility] 05/23/2024 Telephone [facility] Information Management [address] [place] [address] [place] [facility] 05/21/2024 Orders Only GENERIC EXTERNAL DATA DEPARTMENT Provider, Generic External Data 05/19/2024 Orders Only [facility] W[facility]-IN [address] [address] [place] [facility] Obstructive sleep apnea syndrome (Primary Dx) 05/13/2024 9:00 AM EST Office Visit [address] [address] Rinku Chappell MD Influenza A (Primary Dx); Moderate persistent asthma with acute exacerbation 05/12/[address] [address] [place] [facility] Chronic low back pain, unspecified back pain laterality, unspecified whether sciatica present 05/11/2024 Orders Only [facility] [address] [address] [place] [facility] Obstructive sleep apnea syndrome (Primary Dx) 05/05/2024 Orders Only GENERIC EXTERNAL DATA DEPARTMENT Provider, Generic External Data 04/25/2024 10:00 AM EST Telemedicine [address] [address] Sada Johnston PharmD Benign essential hypertension (Primary Dx); Moderate persistent asthma with acute exacerbation 04/20/2024 9:30 AM EST Clinical Support [address] [address] Tammie Diaz, regional economist low back pain, unspecified back pain laterality, unspecified whether sciatica present (Primary Dx) 04/20/2024 Travel 04/20/[address] [address] Tammie Diaz, LADONNA Recommend STRATEGIC PLANNING DIRECTOR Tier 2 04/13/2024 Orders Only [facility] External Provider, [facility] 04/04/2024 11:15 AM EST Office Visit [address] [address] [facility] Type 2 diabetes mellitus with stage 3 chronic kidney disease, without long-term current use of insulin, unspecified whether stage 3a or 3b CKD (CMS/HCC) (Primary Dx); Left carpal tunnel syndrome; Oropharyngeal dysphagia; Obstructive sleep apnea syndrome 04/04/2024 Telephone [facility] [address] [place] [address] [facility] 04/04/2024 Travel from Last 3 Months Immunizations Name Administration [...] Description 09/14/2024 9:00 AM EDT Clinical Support [address] [address] Tammie Diaz, RN Health Maintenance Due Date Last Done Comments CT Colonography 1955 FIT DNA/Cologuard 1957 FIT 1957 FOBT 1955 Sigmoidoscopy 1957 Alcohol/Substance Use Screening 1969 Mammogram 06/15/2024 06/16/2023, 04/2022, 04/15/2021, Additional history exists SDOH Screening 07/21/2024 07/22/2023 Diabetes: Hemoglobin A1C 10/02/2024 025, 12/25/2023, 07/22/2023, Additional history exists Eye Exam 03/23/2025 03/23/2023 Depression Screening 04/04/2025 04/04/2024, 04/04/19 25 Diabetes: Foot Exam 04/04/2025 04/04/2024, 04/04/2024, 04/04/2024, Additional history exists Tobacco Screening 05/13/2025 05/13/2024 Lipid Panel 06/24/2025 06/24/2024, 04/23, 03/25/2022, Additional history exists Colonoscopy 05/03/2028 05/03/2018 Colorectal Cancer Screening 05/03/2028 [...] PANEL, STANDARD Routine 06/24/2024 10:01 AM EDT CTA CHEST PE PROTOCAL Routine 05/22/2024 12:18 AM EST HIGH SENSITIVITY TROPONIN I Routine 05/21/2024 10:48 PM EST XR CHEST 2 VIEWS Routine 05/21/2024 9:21 PM EST D DIMER HIGH SENSITIVITY Routine [...] TOMOSYNTHESIS BILATERAL Routine 06/16/2023 10:15 AM EDT HM COLONOSCOPY Routine 05/03/2018 ZZZ HISTORICAL HPV MRNA E6/E7 Routine 03/03/2016 11:45 AM EST from Last 3 Months or Most Recently Relevant to Health Maintenance Results * Lipid Panel, Standard (06/24/2024 10:01 AM EDT) Triglycerides 93 <150 mg/dL [facility] Comment:Desirable Triglyceri de: less than 150 mg/dLBorderline High Triglyceride 150-199 mg/dLHigh Triglyceride: 200-499 mg/dLVery High Triglyceride: greater than or equal to 5OO mg/dL Cholesterol 131 <200 mg/dL [facility] Comment:Desirable Cholestero l: less than 200 mg/dLBorderline High Cholesterol: 200-239 mg/dLHigh Cholesterol: greater than 239 mg/dL LDL Cholesterol Calculated 64 <100 mg/dL [facility] Comment:Desirable LDL: less than 100 mg/dLNear Optimal/Above Optimal LDL: 110- 129 mg/dLBorderline High LDL: 130-159 mg/dLHigh LDL: 160-189 mg/dLVery High LDL: greater than or equal to 190 mg/dL HDL Cholesterol 49 >40 mg/dL [facility] Comment:Desirable HDL: great er than 40 mg/dL Note: This HDL assay may give artificially low results in patients with liver disease. 06/24/2024 10:0 1 AM EDT 06/24/2024 11:18 AM EDT [facility] WIRELESS TECHNICIAN LAB BLOOD ORDERABLES Final Re sult [facility] [address] [place] [phone] * CTA Chest PE Protocal (05/22/2024 12:18 AM EST) Anatomical Region Laterality Modality Body, Chest Computed Tomogra phy 05/22/2024 12:1 8 AM EST Narrative 05/22/2024 12:21 AM EST ? [facility] ?[address] ?[place] [address] ? CT Scan Report ? Signed ? Patient: Keenan,Ludivina N ?MR#: [id number] ? : 1955 ?Acct:[id number] ? Age/Sex: 68 / F ?ADM Date: 03/01/25 ? Loc: HO.ED ? Attending Dr: ? Ordering Physician: Khushbu Vaca MD ?? Date of Service: 05/21/24 ?? Procedure(s): CT angio chest PE protocol ?? Accession Number(s): [id number] ? cc: Khushbu Vaca MD; [facility] WIRELESS TECHNICIAN ? Report Number: ?? [id number]: Total DLP = ??313.00 mGy-cm ? CLINICAL [...] DD/ 0018 ? TD/TT: 05/22/24 0018 ? Deburrer: ? Procedure Note Shekhar Salazar - 05/22/[address] [address] [place] Scan Report Signed Patient: Ludivina Hussein BANNER#: [id number] : 8Acct:[id number] Age/Sex: 68 / FADM Date: 05/21/24 Loc: HO.ED Attending Dr: Ordering Physician: Khushbu Vaca MD Date of Service: 05/21/24 Procedure(s): CT angio chest PE protocol Accession Number(s): [id number] cc: Khushbu Vaca MD; [facility] Report Number: [id number]: Total DLP = 313.00 mGy-cm CLINICAL HISTORY: [...] Sr MD in OV> 05/22/24 0020 DD/ TD/TT: 05/22/2417 Deburrer: [facility] External Provider IMG CT PROCEDURES Final Result * High Sensitivity Troponin I (05/21/2024 10:48 PM EST) Only the most recent of2 resultswithin the time period is included. TROPONIN I HIGH SENSITIVITY <2.7 <3.5 - 17.0 ng/L [facility] Comment:The Rosas high sens itivity Troponin-I results should beused in conjunction with other diagnostic information suchas ECG, clinical observations and information, and patientsymptoms to aid in the diagnosis of IL. 05/21/2024 10:4 8 PM EST 05/21/2024 10:54 PM EST Generic External Data Provider LAB BLOOD ORDERAB LES Final Result [facility] [address] [place] [address] [phone] * XR Chest 2 Views (05/21/2024 9:21 PM EST) Only the most recent of2 resultswithin the time period is included. Anatomical Region Laterality Modality Chest Radiographic Lia ging 05/21/2024 9:21 PM EST Narrative 05/21/2024 9:23 PM EST ? [facility] ?[address] ?[place] [address] ?XRay Report ? Signed ? Patient: Ludivina Hussein ?MR#: [id number] ? : 1955 ?Acct:[id number] ? Age/Sex: 68 / F ?ADM Date: 05/21/24 ? Loc: HO.ED ? Attending Dr: ? Ordering Physician: Vane Garcia ?? Date of Service: 05/21/24 ?? Procedure(s): XR chest 2V ?? Accession Number(s): [id number] ? cc: Vane Garcia; Kelli Horton [facility] ? CLINICAL HISTORY: cp ? 2 view [...] ? DD/ 20 ? TD/TT: 05/21/242120 ? Deburrer: ? Procedure Note Shekhar Salazar - 05/21/2024 [facility] [address] [place] [address] XRay Report Signed Patient: Melissa Husseinz NMR#: [id number] : 8Acct:[id number] Age/Sex: 68 / FADM Date: 05/21/24 Loc: HO.ED Attending Dr: Ordering Physician: Vane Garcia Date of Service: 05/21/24 Procedure(s): XR chest 2V Accession Number(s): [id number] cc: Vane Garcia; [facility] CLINICAL HISTORY: cp 2 view chest [...] in OV> 05/21/242121 DD/ 20 TD/TT: 05/21/242120 Deburrer: [facility] External Provider IMG XR PROCEDURES Edited Result - Final * D Dimer High Sensitivity (05/21/2024 8:17 PM EST) D Dimer High Sensitivity 246 NG/ML [facility] Comment:D-DIMER HS REFERENCE RANGENote: Our [...] Provider LAB BLOOD ORDERAB LES Final Result [facility] [address] [place] [phone] * SARS-CoV-2 RNA, Influenza A/B, and RSV RNA, Ql NAAT (05/21/2024 8:17 PM EST) Only the most recent of2 resultswithin the time period is included. Influenza A PCR NEGATIVE Negative [facility] Influenza B PCR NEGATIVE Negative [facility] Resp Syncy Virus RNA Qual PCR NEGATIVE Negative [facility] SARS COV2 PCR NEGATIVE Negative [facility] Comment:All test results mus t [...] use by authorized laboratories.Testing performed on the [employer] GeneXpert utilizingreal-time RT-PCR.All SARS CoV2 and positive influenza A/B results arereported to [facility]. 05/21/2024 8:17 PM EST 05/21/2024 8:20 PM EST us Generic External Data Provider LAB MICROBIOLOGY - GENERAL ORDERABLES Final Result [facility] [address] [place] [address] [phone] * (ABNORMAL) CBC auto differential (05/21/2024 8:17 PM EST) Only the most recent of2 resultswithin the time period is included. White Blood Count 8.2 4.8 - 10.8 X10*3/uL [facility] Red Blood Count 3.94(L) 4.20 - 5.50 X10*6/uL [facility] Hemoglobin 12.2 12.0 - 16.0 g/dl [facility] Hematocrit 34.9(L) 37.0 - 47.0 % [facility] Mean Corpuscular Volume 88.6 80.0 - 98.0 fL [facility] Mean Corpuscular Hemoglobin 31.0 27.0 - 33.0 pg [facility] Mean Corpuscular HGB Conc 35.0 31.0 - 35.0 g/dl [facility] Red Cell Distribution Width 12.0 11.0 - 16.0 % [facility] Platelet Count 276 160 - 400 X10*3/uL [facility] Mean Platelet Volume 8.8(L) 9.4 - 12.3 fL [facility] Neutrophils Percent Auto 57.0 45 - 73 % [facility] Imm Gran Pct Auto 0.2 0.0 - 0.4 % [facility] Lymphocytes Percent Auto 30.1 20 - 40 % [facility] Monocytes Percent Auto 6.7 2 - 11 % [facility] Eosinophils Percent Auto 5.6(H) 0 - 4 % [facility] Basophils Percent Auto 0.4 0 - 2 % [facility] NRBC Pct Auto 0.0 0.0 - 0.2 /100WBC [facility] Neutrophils Absolute Auto 4.7 2.0 - 8.3 x10*3/uL [facility] Imm Gran Abs Auto 0.02 0.00 - 0.03 X10*3/uL [facility] Lymphocytes Absolute Auto 2.5 1.2 - 4.9 X10*3/uL [facility] Monocytes Absolute Auto 0.6 0.1 - 1.2 X10*3/uL [facility] Eosinophils Absolute Auto 0.5(H) 0.0 - 0.4 X10*3/uL [facility] Basophils Absolute Auto 0.0 0.0 - 0.2 X10*3/uL [facility] NRBC Abs Auto 0.000 0.0 - 0.012 X10*3/uL [facility] 05/21/2024 8:17 PM EST 05/21/2024 8:20 PM EST us Generic External Data Provider LAB BLOOD ORDERAB LES Final Result Performing Organization Address City/[facility]/ZIP Co de Phone Number [facility] [address] [place] [phone] * (ABNORMAL) Prothrombin Time-INR (05/21/2024 8:17 PM EST) Prothrombin Time 10.7(L) 10.9 - 12.4 SEC [facility] INTERNATIONAL NORM RATIO 0.9 0.9 - 1.1 [facility] Comment:INTERNATIONAL NORMAL IZED RATIO (INR) [...] ORDERAB LES Final Result Performing Organization Address [facility] Co de Phone Number [facility] [address] [place] [phone] * Magnesium (05/21/2024 8:17 PM EST) Pathologist [facility] Magnesium 1.9 1.6 - 2.6 mg/dL [facility] 05/21/2024 8:1 7 PM EST 05/21/2024 8:20 PM EST Generic External Data Provider LAB BLOOD ORDERAB LES Final Result Performing Organization Address [facility] Co de Phone Number [facility] [address] [place] [phone] * (ABNORMAL) Hepatic Function Panel (05/21/2024 8:17 PM EST) Bilirubin, Total 0.3 0.0 - 1.0 mg/dL [facility] Bilirubin, Direct 0.1 0.0 - 0.5 mg/dL [facility] Aspartate Amino Transferase 31 5 - 31 U/L [facility] Alanine Aminotransferase 40(H) 0 - 31 U/L [facility] Total Protein 7.2 6.5 - 8.0 g/dL [facility] Albumin Level 3.6 3.5 - 5.0 g/dL [facility] Alkaline Phosphatase 109 39 - 117 U/L [facility] 05/21/2024 8:17 PM EST 05/21/2024 8:20 PM EST us Generic External Data Provider LAB BLOOD ORDERAB LES Final Result [facility] [address] [place] [phone] [phone] * (ABNORMAL) Basic Metabolic Panel (05/21/2024 8:17 PM EST) Sodium 140 135 - 145 mmol/L [facility] Potassium 4.2 3.3 - 5.1 mmol/L [facility] Chloride 105 96 - 108 mmol/L [facility] Carbon Dioxide 26 22 - 29 mmol/L [facility] Anion Gap 13 12 - 20 [facility] Urea Nitrogen (BUN) 16 9 - 16 mg/dL [facility] Creatinine, Serum 0.92 0.5 - 1.4 mg/dL [facility] Creatinine Clr Calc Pharmacy 56.1 [facility] Comment:Provided height and weight: 147.32 cm,86.4 kg.eGFR (calculated from the MDRD study equation) and eCrCl(calculated from the Cockcroft-Gault equation) are based ondifferent parameters and may not yield comparable results.If eCrCl result is absurd, please check patient'sheight/weight. Estimated Glomerular Filt Rate >60 [facility] Comment:Chronic Kidney Disea se: Estimated GFR < 60 mL/min/1.26x8Grkslt Kidney Disease: Estimated GFR < 15 mL/min/1.73m2 Glucose 147(H) 60 - 115 mg/dL [facility] Calcium 9.1 8.4 - 10.2 mg/dL [facility] 05/21/2024 8:17 PM EST 05/21/2024 8:20 PM EST us Generic External Data Provider LAB BLOOD ORDERAB LES Final Result [facility] [address] [place] [address] [phone] * CT Lung Screening Low dose (05/19/2024 4:13 PM EST) Anatomical Region Laterality Modality Lung Computed Tomogra phy 05/19/2024 4:13 PM EST Narrative 05/19/2024 4:16 PM EST ? [facility] ?[address] ?[place] [address] ? [address] Scan Report ? Signed ? Patient: Ludivina Hussein ?MR#: [id number] ? : 1955 ?Acct:[id number] ? Age/Sex: 68 / F ?ADM Date: 05/19/24 ? Loc: HO.CT ? Attending Dr: Chaparro Jeffers MD ? Ordering Physician: Chaparro Jeffers MD ?? Date of Service: 05/19/24 ?? Procedure(s): CT lung screening ?? Accession Number(s): [id number] ? cc: Chaparro Jeffers MD; Kelli Horton WIRELESS TECHNICIAN ? Report Number: ?? [id number]: Total DLP = ?? 62.00 mGy-cm ? [...] DD/ 1613 ? TD/TT: 05/19/24 1613 ? Deburrer: ? Procedure Note Shekhar Salazar - 05/19/[address] [address] [address] Scan Report Signed Patient: Ludivina Hussein BANNER#: [id number] : 8Acct:[id number] Age/Sex: 68 / FADM Date: 05/19/24 Loc: HO.CT Attending Dr: Chaparro Jeffers MD Ordering Physician: Chaparro Jeffers MD Date of Service: 05/19/24 Procedure(s): CT lung screening Accession Number(s): [id number] cc: Chaparro Jeffers MD; [facility] Report Number: [id number]: Total DLP = 62.00 mGy-cm CLINICAL HISTORY: [...] Cruz MD in OV> 05/19/24 1615 DD/ 161 TD/TT: 05/19/24 161 Deburrer: [facility] External Provider IMG CT PROCEDURES Final Result * (ABNORMAL) Comprehensive Metabolic Panel (05/05/2024 12:33 PM EST) Sodium 134(L) 135 - 145 mmol/L [facility] Potassium 3.4 3.3 - 5.1 mmol/L [facility] Chloride 99 96 - 108 mmol/L [facility] Carbon Dioxide 25 22 - 29 mmol/L [facility] Anion Gap 13 12 - 20 [facility] Urea Nitrogen (BUN) 16 9 - 16 mg/dL [facility] Creatinine, Serum 0.89 0.5 - 1.4 mg/dL [facility] Creatinine Clr Calc Pharmacy 57.0 [facility] Comment:Provided height and weight: 147.32 cm,84 kg.eGFR (calculated from the MDRD study equation) and eCrCl(calculated from the Cockcroft-Gault equation) are based ondifferent parameters and may not yield comparable results.If eCrCl result is absurd, please check patient'sheight/weight. Estimated Glomerular Filt Rate >60 [facility] Comment:Chronic Kidney Disea se: Estimated GFR < 60 mL/min/1.75c0[place]yo Kidney Disease: Estimated GFR < 15 mL/min/1.73m2 Glucose 136(H) 60 - 115 mg/dL [facility] Calcium 9.1 8.4 - 10.2 mg/dL [facility] Bilirubin, Total 0.4 0.0 - 1.0 mg/dL [facility] Aspartate Amino Transferase 35(H) 5 - 31 U/L [facility] Alanine Aminotransferase 44(H) 0 - 31 U/L [facility] Total Protein 7.4 6.5 - 8.0 g/dL [facility] Albumin Level 3.8 3.5 - 5.0 g/dL [facility] Alkaline Phosphatase 85 39 - 117 U/L [facility] 05/05/2024 12:3 3 PM EST 05/05/2024 12:43 PM EST us Generic External Data Provider LAB BLOOD ORDERAB LES Final Result [facility] [address] [place] [address] [phone] * POCT ANDRE-14 Urine Drug Screen (04/20/2024 9:13 AM EST) Opiate Screen, Urine Positive Urine Urine specimen obtained by clean catch procedure / Unknown 04/20/2024 9:13 AM EST Narrative Tammie Diaz RN - 04/20/2024 9:13 AM EST UTOX cup Lot#[id number] Exp. 12/15/25 Internal Pass Control [facility] WIRELESS TECHNICIAN POINT OF CARE TEST ENTER/EDIT ORDERABLES Final Result * US Abdomen Comp w elastography (04/13/2024 10:01 AM EST) Anatomical Region Laterality Modality Abdomen Ultrasound 04/13/2024 10:0 1 AM EST Narrative 04/14/2024 7:45 AM EST ? [facility] ?[address] ?[place] [address] ? Ultrasound Report ? Signed ? Patient: Ludivina Hussein ?MR#: [id number] ? : 1955 ?Acct:[id number] ? Age/Sex: 68 / F ?ADM Date: 04/13/24 ? Loc: HO.US ? Attending Dr: Jason Lora MD ? Ordering Physician: Jason Lora MD ?? Date of Service: 04/13/24 ?? Procedure(s): US abdomen comp w elastography ?? Accession Number(s): [id number] ? cc: Jason Lora MD; Kelli Horton [...] DD/ 1001 ? TD/TT: 04/13/24 1033 ? Deburrer: ? Procedure Note Donotuseinterpreter, Image - 04/14/[address] [address] Ultrasound Report Signed Patient: Ludivina Hussein BANNER#: [id number] : 8Acct:[id number] Age/Sex: 68 / FADM Date: 04/13/24 Loc: HO.US Attending Dr: Jason Lora MD Ordering Physician: Jason Lora MD Date of Service: 04/13/24 Procedure(s): US abdomen comp w elastography Accession Number(s): [id number] cc: Jason Lora MD; [facility] EXAMINATION: US ABDOMEN COMPLETE WITH LIVER [...] Radiologists in Ultrasound Liver Stiffness Thresholds (2019): LIVER [...] 04/14/24 0742 DD/ 1001 TD/TT: 04/13/24 1033 Deburrer: [facility] External Provider IMG US PROCEDURES Final Result * (ABNORMAL) POCT HGB A1C (04/04/2024 11:24 AM EST) Hemoglobin A1C 6.2(A) 4.0 - 6.0 % QC Media Lot # [id number] Lot# Expiration Date , Blood 04/04/2024 11:2 4 AM EST [facility] WIRELESS TECHNICIAN POINT OF CARE TEST ENTER/EDIT ORDERABLES Final Result * POCT Glucose (04/04/2024 11:24 AM EST) Glucose Blood, POC 116 60 - 200 mg/dL QC Media Lot # [id number] Lot# Expiration Date ,025 Blood Capillary blood specimen / Unknown 04/04/2024 11:24 AM EST Result [facility] POINT OF CARE TEST ENTER/EDIT ORDERABLES Final Result * BI Mammogram Screening Tomosynthesis Bilateral (06/16/2023 10:15 AM EDT) Anatomical Region Laterality Modality Breast Bilateral Mammography 06/16/2023 10:1 5 AM EDT Narrative 07/02/2023 6:24 AM EDT ? [facility] ? [address] ?[place] [address] ? Mammography Report ? Signed ? Patient: Keenan,Ludivina N ?MR#: [id number] ? : 1955 ?Acct:[id number] ? Age/Sex: 67 / F ?ADM Date: 03/26/24 ? Loc: HO.MAMMO ? Attending Dr: Kelli Horton WIRELESS TECHNICIAN ? Ordering Physician: Kelli Horton WIRELESS TECHNICIAN ?Results: 1Nega ?? tive ? Date of Service: 06/16/23 ?Follow Up: 1 Year From Orig ?? inal Mammogram ? Procedure(s): MM tomosynthesis screening BI ?? Accession Number(s): [id number] ? cc: Kelli Horton WIRELESS TECHNICIAN ? EXAMINATION: ?? MM SCREENING DIGITAL BREAST [...] 07/02/23619 ? DD/ 1015 ? TD/TT: ? Deburrer: ? Procedure Note Donguillermoter, Image - 07/02/2023 [facility] [address] [place], [place] [address] Mammography Report Signed Patient: Ludivina Hussein NMR#: [id number] : 8Acct:[id number] Age/Sex: 67 / FADM Date: 06/16/23 Loc: GERRY Attending Dr: Kelli Horton WIRELESS TECHNICIAN Ordering Physician: Kelil Horton FNPResults: 1Nega tive Date of Service: 06/16/23Follow Up: 1 Year From Orig inal Mammogram Procedure(s): MM tomosynthesis screening BI Accession Number(s): [id number] cc: Kelli Horton WIRELESS TECHNICIAN EXAMINATION: MM SCREENING DIGITAL BREAST TOMOSYNTHESIS, BILATERAL [...] for their next mammogram. Dictated By: July Glies MD Signed By: <Electronically signed by July Giles MD in OV> 07/02/23 0620 DD/ 1015 TD/TT: Deburrer: [facility] WIRELESS TECHNICIAN IMG BI PROCEDURES Final Resul t * Hm Colonoscopy (05/03/2018) Colonoscopy Normal Normal Narrative Madeleine Valle - 05/03/2018 Repeat in 10 years Historical Provider HEALTH MAINTENANCE Final Result * HPV mRNA E6/E7 (03/03/2016 11:45 AM EST) HPV mRNA E6/E7 Not Detected NOT DETECTED [facility] Comment: This test was performed using the APTIMA(R) HPV Assay ([employer] This assay detects E6/E7 viral messenger RNA (mRNA) from 14 high-risk HPV types (16,18,31,33,35,39,45,51, 52,56,58,59,66,68). For additional information please refer to: http://education.Brayola/faq/LMS830z6 (This link is being provided for informational/ educational purposes only.) Test Performed by Yuki Pace, [facility], [address] [place] [id number] Leonardo Cano M.D., Ph.D., Director of Laboratories , [place] [id number] Please note: ??Effective 12/03/2015, HPV testing will be performed using [employer]'s APTIMA test which targets mRNA. Detecting mRNA instead of DNA, as in older methods, offers significant improvements in specificity. 03/03/2016 11:4 5 AM EST Nandini Biswas NP HISTORICAL/NON ORDERABLE LABS Fi nal Result [facility] [address] from Last 3 Months or Most Recently Relevant to Health Maintenance Insurance [facility] Care Teams Program Assistant Relationship Specialty Start Date End Date Kelli Horton FNP [address] [place] [address] PCP - General Family Medicine 05/20/22
--- OUTSIDE RECORDS SUMMARY | 2024-06-28 15:19 | XMS_ITS | Encounter Summary ---
Author Organization [employer] Address [address] [facility] 7t [place] [address] Care Team Providers Care Deployment Specialist Name Role Phone [place] [facility] Primary Care Provider Reason for Visit * Reason Onset Date Comments Referral 12/11/2022 Encounter Details Date Type Department Care Team (Late Contact Info) Description 12/11/2022 Telephone [facility] [address] [place] [address] [facility] [address] [place] [address] Referral Social History Tobacco Use Types Packs/Day [...] and medication list to be faxed to [phone]. documented in this encounter Plan of Treatment Upcoming Encounters Date Type Department Care Team (Late st Contact Info) Description 09/14/2024 9:00 AM EDT Clinical Support [facility] [address] [place] [address] Tammie Diaz RN documented as of this encounter Visit Diagnoses Not on filedocumented in this encounter Additional Health Concerns Assessment Noted Time PHQ-9 Depression Total Score: 21 022 10:03 AM EST documented as of this encounter Care Teams Deployment Specialist Relationship Specialty Start Date End Date Kelli Horton FNP [address] [place] [address] PCP - General Family Medicine 05/20/22 documented as of this encounter
--- OUTSIDE RECORDS SUMMARY | 2024-06-28 15:19 | XMS_ITS | Encounter Summary ---
Author Organization [employer] Address [address] [facility] 7t [place] [address] Care Team Providers Care Staple Laster Name Role Phone [facility] Primary Care Provider [phone] Encounter Details Date Type Department Care Team (Late Contact Info) Description 09/30/2022 Abstract [facility] MEDICINE [address] [place] [address] [place] [address] [address] Social History Tobacco Use Types Packs/Day Years [...] Description 09/14/2024 9:00 AM EDT Clinical Support [address] [id number] Tammie Diaz RN documented as of this [...] documented as of this encounter Care Teams Staple Laster Relationship Specialty Start Date End Date Kelli Horton FNP [address] [place] [address] PCP - General Family Medicine 05/20/22 documented as of this encounter
--- OUTSIDE RECORDS SUMMARY | 2024-06-28 15:19 | XMS_ITS | Encounter Summary ---
Author Organization [employer] Address [address] [facility] 7t [place] [address] Care Team Providers Care Lens Blank Gauger Name Role Phone Beatriz Ford RECOVERY OPERATOR Primary Care Provider Kelli Henning RECOVERY OPERATOR Primary Care Provider [phone] Encounter Details Date Type Department Care Team ([facility] Contact Info) Description 03/20/[address] [phone] Beatriz Ford FNP Social History Tobacco Use [...] Description 09/14/2024 9:00 AM EDT Clinical Support [address] [phone] Tammie Diaz RN documented as of this encounter Visit Diagnoses Not on filedocumented in this encounter Care Teams Lens Blank Gauger Relationship Specialty Start Date End Date Beatriz Ford FNP PCP - General Family Medicine 02/21/22 05/19/22 StaffordKelli FNP [address] [place] [address] PCP - General Family Medicine 05/20/22 documented as of this encounter
--- OUTSIDE RECORDS SUMMARY | 2024-06-28 15:19 | XMS_ITS | Patient Health Record ---
Author Organization [facility] Address [address] [place] [address] Care Team Providers Care Gas Meter Prover Name Role Phone [facility] Primary Care Provider Unava ilable Jason Lora Unavailable [phone] Allergies No Known Allergies Results Component Value Reference Range Notes US abdomen comp w elastograp hy (Not yet reviewed by provider) Interpretation: Performing Lab: Notes/Report: [facility] [address] [place] [address] Ultrasound Report Signed Patient: Ludivina Hussein MR#: [id number] : 1955 Acct:[id number] Age/Sex: 68 / F ADM Date: 04/13/24 Loc: HO.US Attending Dr: Jason Lora MD Ordering Physician: Jason Lora MD Date of Service: 04/13/24 Procedure(s): US abdomen comp w elastography Accession Number(s): [id number] cc: Jason Lora MD; [facility] EXAMINATION: US ABDOMEN COMPLETE WITH LIVER [...] are not well established. 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: [place] [address] Ultrasound Report Signed Patient: Ludivina Hussein MR#: [id number] : 1955 Acct:[id number] Age/Sex: 68 / F ADM Date: 04/13/24 Loc: HO.US Attending Dr: Jason Lora MD Ordering Physician: Jason Lora MD Date of Service: 04/13/24 Procedure(s): US abd omen comp w elastography Accession Number(s): [id number] cc: Jason Lora MD; [facility] EXAMINATION: US ABDO MEN COMPLETE WITH [...] 04/14/24 0742 DD/ 1001 TD/TT: 04/13/24 1033 Plain [employer]othes Police Officer: Reason For Referral No Information Medications Medication [...] Problem Status W/U Status Risk Notes Problem [id number] Encounter for screening for malignant neoplasm of colon (Z12.11) Active confirmed Problem 08706416 Other cirrhosis of liver (K74.69) Active confirmed Problem 314762503 Fatty liver (K76.0) Active confirmed Problem 63572695055378 History of hepatitis C (Z86.19) Active confirmed Problem 2252158 Chronic gastritis without bleeding, unspecified gastritis type (K29.50) Active confirmed Vital Signs Blood pressure diastolic 00 mm Hg 02/25/2024 Height 58 in 02/25/2024 Blood pressure systolic 00 mm Hg 02/25/2024 Weight 185 lbs 02/25/2024 BMI 38.66 kg/m2 02/25/2024 Encounters Encounter Location Date Provider Diagnosis [facility] [address] [place] [phone] 02/25/2024 Jason Lora Other cirrhosis of liver K74.69 ; History of hepatitis C Z86.19 and Fatty liver K76.0 [facility] [address] [place] [phone] 07/02/[address] [facility] [address] [place] [address] 05/12/[address] [facility] [address] [place] [phone] 06/15/2024 Jason Lora Assessments Encounter Date Diagnosis [...] Name:Jason Lora , 02/23/2025 09:20:00 AM, [address], [address], [place], [address], Insurance Providers Payer Name Payer Address Payer Phone Subscriber Number Group Number Insured Name Patient Relationship to Insured Coverage Start Date Coverage End Date [facility] Claims [address] [address] [place] [address] [id number] LUDIVINA HUSSEIN Self - patient is the insured [facility] [address] [place] [address] [phone] [id number] LUDIVINA HUSSEIN Self - patient is the [...] ursodiol 750 mg b.i.d. Asthma Anxiety Denies NH,CVA,renal disease Kidney stones Negative colonoscopy with Dr. Rodriguez in [place] Urinary incontinence Neg. screening colonoscopy in 04/2018 EGD in 04/2018 with erosive g astritis but neg. Hpylori, no varices, small to mod-sized hiatal hernia Surgical History Surgery Date(Month/Year) Tubal ligation Umbilical hernia surgery 03/2013-Dr. Annel magana Vocal cord polyps Bladder suspension by Dr Avelino lama in [place] for urinary incontinence on 09/19/13. Veins in her left leg Right knee replacement with Dr. Solorzano 2020
--- OUTSIDE RECORDS SUMMARY | 2024-06-28 15:19 | XMS_ITS | Encounter Summary ---
Author Organization [employer] Address [address] [facility] 7t [place] [address] Care Team Providers Care Logistics Team Lead Name Role Phone [facility] Primary Care Provider [phone] Reason for Visit * Reason Onset Date Comments Med Refill 01/28/2024 Encounter Details Date Type Department Care Team ([facility] st Contact Info) Description 01/28/2024 Telephone [facility] [address] [place] [address] [facility] [address] [place] [address] Med Refill Social History Tobacco Use Types [...] Description 09/14/2024 9:00 AM EDT Clinical Support [facility] [address] [place] [address] Tammie Diaz RN documented as of this encounter Visit Diagnoses Not on filedocumented in this encounter Additional Health Concerns Assessment Noted Time PHQ-9 Depression Total Score: 0 12/25/19 24 10:25 AM EDT documented as of this encounter Care Teams Logistics Team Lead Relationship Specialty Start Date End Date Kelli Horton FNP [address] [place] [address] PCP - General Family Medicine 05/20/22 documented as of this encounter
--- OUTSIDE RECORDS SUMMARY | 2024-06-28 15:19 | XMS_ITS | Encounter Summary ---
Author Organization [employer] Address [address] [facility] 7t [place] [address] Care Team Providers Care Shaker Screen Operator Name Role Phone Beatriz Ford [facility] Primary Care Provider Aj bradford Section [facility] Primary Care Provider [phone] Reason for Visit * Reason Comments Med Refill Encounter Details Date Type Department Care Team ([facility] st Contact Info) Description 04/03/2022 Refill [facility] [address] [place] [address] Name, MD Har[place] [address] [place] [address] Chronic pain syndrome Social History Tobacco Use [...] on hydrocodone med , please contact .. (Hungarian speaker) documented in this encounter Plan of Treatment Upcoming Encounters Date Type Department Care Team (Late st Contact Info) Description 09/14/2024 9:00 AM EDT Clinical Support [facility] [address] [place] [address] Tammie Diaz RN documented as of this encounter Visit Diagnoses Diagnosis Chronic pain syndrome documented in this encounter Additional Health Concerns Assessment Noted Time PHQ-9 Depression Total Score: 21 022 10:03 AM EST documented as of this encounter Care Teams Shaker Screen Operator Relationship Specialty Start Date End Date Beatriz Ford FNP PCP - General Family Medicine 02/21/22 05/19/22 Kelli Horton FNP [address] [place] [address] PCP - General Family Medicine 05/20/22 documented as of this encounter
--- OUTSIDE RECORDS SUMMARY | 2024-06-28 15:19 | XMS_ITS ---
Author Organization [facility] Address [address] [place] [address] Care Team Providers Care Printing Worker Supervisor Name Role Phone [facility] Primary Care Provider UnaJason Birmingham Unavailable [phone] REASON FOR VISIT r/f request ursodiol Medications Medication SIG (Take, Route, Fr equency, Duration) Notes Start Date End Date Status Magdiel 250 250 MG 3 tablets Orally Twi ce a day for 30 days 11/28/2013 Active Encounters Encounter Location Date Provider Diagnosis [facility] [address] [place] [phone] 05/12/2024 Jason Lora Plan Of Treatment Medication Medication Name Sig Start Date Stop Date Notes Magdiel 250 250 MG 3 tablets Orally Twice a day for 30 days 0 11/28/2013 Next Appt Details Provider Name:Jason Lora , 02/23/2025 09:20:00 AM, [address], [address], [place], [address], Progress Notes * TRUPTI MAGUIRE NDOB:1955 ( 68 yo F)Acc No.[id number]:05/12/2024 Patient:?TRUPTI MAGUIRE :1955???Age:68 Y???Sex:Female Address:[address] [place] [address] * Refills? Refill Magdiel 250 Tablet, 250 MG, Orally, 180 Tablet, 3 tablets, Twice a day, 30 days, Refills=11 * true * Date:? Generated for Printi ng/Familesg/eTransmitting on:?06/28/2024 03:18 PM EDT
--- OUTSIDE RECORDS SUMMARY | 2024-06-28 15:19 | XMS_ITS | Encounter Summary ---
Author Organization [employer] Address [address] [facility] 7t [place] [address] Care Team Providers Care Paint Dipper Name Role Phone [place] [facility] Primary Care Provider [phone] Reason for Visit * Reason Onset Date Comments Med Refill 03/15/2024 Encounter Details Date Type Department Care Team ([facility] st Contact Info) Description 03/15/[address] [facility]INE [address] [place] [address] [facility] [address] [place] [address] Med Refill Social History Tobacco Use Types [...] medication refill. Medications needing refill : HYDROcodone-acetaminophen ([place]) 5-325 MG tablet To be sent to: [facility] [place], [place] - [address] [place] [address] documented in this encounter Plan of Treatment Upcoming Encounters Date Type Department Care Team (Late st Contact Info) Description 09/14/2024 9:00 AM EDT Clinical Support [facility] [address] [place] [address] Tammie Diaz, LADONNA documented as of this encounter Visit Diagnoses Not on filedocumented in this encounter Additional Health Concerns Assessment Noted Time PHQ-9 Depression Total Score: 0 12/25/19 10:25 AM EDT documented as of this encounter Care Teams Paint Dipper Relationship Specialty Start Date End Date Kelli Horton FNP [address] [place] [address] PCP - General Family Medicine 05/20/22 documented as of this encounter
--- OUTSIDE RECORDS SUMMARY | 2024-06-28 15:19 | XMS_ITS ---
Author Organization [facility] Address [address] [place] [address] Care Team Providers Care Croze Cutter Name Role Phone [facility] Primary Care Provider Shivani kellogg Jason Lora Unavailable [phone] Allergies No Known Allergies REASON FOR VISIT [...] 02/25/2024 Encounters Encounter Location Date Provider Diagnosis [facility] [address] [place] [address] 02/25/2024 Jason Lora Other cirrhosis of liver [...] 09:20:00 AM, [address], [address], [place], [address], Progress Notes * LUDIVINA MAGUIRE NDOB:1955 ( 68 yo F)Acc No.[id number]:02/25/2024 Progress Notes Patient:?LUDIVINA MAGUIRE N Provider:?Jason Lora MD :1955???Age:68 Y???Sex:Female D ate:02/25/2024 Address:[address] [place] [address], [facility] Pcp:ALYSSA Nascimento Subjective: * Chief Complaints: * [...] Vocal cord polyps Bladder suspension by Dr Hernnadez in [place] for urinary incontinence on 09/19/13. Veins in [...] Procedure Codes:?3017F COLOR ECTAL CA SCREEN DOC [id number] TOBACCO NON-[id number] BP SCR NOT PRFRM REC REASON NOS [...] Lora MD Date:? 024 Generated for Esteban christianson/Marcel/Ramilasmitting on:?06/28/2024 03:18 PM EDT History and Physical Notes * [...]
[2024-07-14 10:32] VITALS: BMI 39.6
[2024-07-14 10:40] VITALS: BP 138/67; PULSE 55; RESP 16; TEMP 36.1; O2SAT 95
--- NOTE | 2024-07-14 12:16 | MHC.SHP ---
Pre-Procedural Eval Section A - 24 Hr Update-Section A only Date of Service: 07/14/24 The patient is an INPATIENT: No Changes since office visit: No Cold of Flu in the past 2 weeks, No New Medical Problems, No Changes in Medication and No Patient answered all questions The patient has been examined within 24 hours of the surgical procedure. The History & Physical has been completed within 30 days and I have reviewed it.: Yes Section B - Complete if H&P > 30 days Chief Complaint: Carpal tunnel syndrome, left upper limb Allergies: Allergies Allergy/AdvReac Type Severity Reaction Status Date / Time No Known Allergies Allergy Verified 06/15/24 13:09 [No Known Allergies*] Plan Diagnosis/Plan: Unchanged I have reviewed the history and physical and performed a pertinent physical examination on my patient. No changes have occurred unless specified. Time Spent With Patient Time: Total time managing care of this patient today ____ minutes.
--- NOTE | 2024-07-14 12:17 | P.OP_ITS ---
Operative Note Operative Note Date of Service: 07/14/24 Narrative: Preop diagnosis: 1. Left Carpal tunnel syndrome Postop diagnosis: same Procedure: 1. Left Carpal tunnel release Surgeon: Keyona Huston MD Lasting Room Machine Operator: Ronen SHELDON Anesthesia: local block using 1% lidocaine with epinephrine Findings: Thickened transverse carpal ligament. EBL: Less than 5 mL Specimens: None Complications: None Disposition: Brought to recovery room in stable condition Plan: Follow-up for 10-14 days for wound check and suture removal Indications: The patient is 68 years old, with left carpal tunnel syndrome that has been unresponsive to nonoperative management. The risks and benefits of operative treatment including but not limited to risk of damage to blood vessels, nerves, tendons, infection, persistent pain, persistent symptoms, or possible need for additional surgery were discussed with the patient and the patient wishes to proceed with surgery. Procedure: Once consent was obtained a local block was performed using a combination of 1% lidocaine with epinephrine. The patient was then brought back to the operating suite and placed on the operative table in supine position. The left upper extremity was prepped and draped in a standard surgical fashion. Once assured that we had a good block, a 2.0 cm longitudinal incision was made centered over the carpal tunnel. The incision was made through the skin to the subcutaneous tissues using a #15 blade. Dissection was made down to the level of the transverse carpal ligament with care being taken to protect the palmar cutaneous nerve. Once the transverse carpal ligament was clearly visualized, a longitudinal incision was made in the transverse carpal ligament 1st using a #15 blade, then using tenotomy scissors under direct visualization. Care was taken to look for and protect the motor branch of the median nerve when seen in this area. Once satisfied with our carpal tunnel release the wound was copiously irrigated with normal saline and hemostasis was obtained with a brief period of local pressure. The skin edges were reapproximated with some 5.0 nylon suture material and a sterile dressing was applied. The patient appears to have tolerated the procedure well and with no complications. All digits were well vascularized at the conclusion of the case.
[2024-07-14 13:18] VITALS: BP 137/61; PULSE 61; RESP 16; O2SAT 96
== END 2024-07-14 13:19 | disposition home or self-care (01) ==
PROVIDERS: PCP Registered Nurse; Visit Provider Orthopaedic Surgery
PROC: (CPT 64721; principal; 2024-07-14 12:00)
DX: G56.02 Carpal tunnel syndrome, left upper limb (principal); R20.0 Anesthesia of skin; R20.2 Paresthesia of skin; M19.042 Primary osteoarthritis, left hand; M19.041 Primary osteoarthritis, right hand; E78.00 Pure hypercholesterolemia, unspecified; I45.10 Unspecified right bundle-branch block; G47.33 Obstructive sleep apnea (adult) (pediatric); J45.909 Unspecified asthma, uncomplicated; E11.22 Type 2 diabetes mellitus with diabetic chronic kidney disease; I12.9 Hypertensive chronic kidney disease with stage 1 through stage 4 chronic kidney disease, or unspecified chronic kidney disease; N18.9 Chronic kidney disease, unspecified; Z87.891 Personal history of nicotine dependence; F14.90 Cocaine use, unspecified, uncomplicated
CPT/HCPCS: 64721; J0171; J2003; J2004

== ENCOUNTER → 2024-07-14 10:17 | Outpatient (BNV) | payer OTHER, SELFPAY | PROVIDERS: PCP Registered Nurse; Visit Provider Orthopaedic Surgery | DX: G56.02 Carpal tunnel syndrome, left upper limb (principal) | CPT/HCPCS: 64721 ==

== ENCOUNTER 2024-07-27 09:53 | Outpatient (AMB) | payer OTHER, SELFPAY ==
[2024-07-27 09:55] VITALS: BMI 25.4
--- NOTE | 2024-07-27 09:55 | MHC.OFFVIS ---
Vital Signs 07/27/24 09:55 Height 4 ft 11 in Weight 126 lb BMI 25.4 Intake Visit Reasons: PO-Lt CTR 07/14/24 Intake Note: Ludivina is a 68 year old right hand dominant female who presents today for a post operative visit s/p left carpal tunnel release DOS: 07/14/[address] Keyona Huston. Patient reports that she is doing well, she states that the numbness and tingling is improving and so is her pain. She does report pain in the left pointer finger. Sutures removed and steri strips applied Allergies No Known Allergies [No Known Allergies*] Allergy (Verified 06/15/24 13:09) HPI HPI PO-Lt CTR 07/14/24: Details: Ludivina is a 68 year old right hand dominant female who presents today for a post operative visit s/p left carpal tunnel release DOS: 07/14/[address] Keyona Huston. Patient reports that she is doing well, she states that the numbness and tingling is improving and so is her pain. She does report pain in the left pointer finger. The patient does report that she is experiencing numbness and tingling in the right hand, but does not have any EMG and nerve conduction study for this side. Sutures removed and steri strips applied PFSH Medical History Primary osteoarthritis of left knee Osteoarthritis of hands, bilateral History of COVID-19 RBBB Hx of hepatitis C Asthma Anxiety Elevated cholesterol COVID-19 vaccine series completed JUSTIN (obstructive sleep apnea) Chronic kidney disease Depression Other intervertebral disc displacement, lumbar region Spondylosis of lumbar spine Lumbar facet arthropathy Bilateral primary osteoarthritis of knee Renal stones Essential hypertension Type 2 diabetes mellitus with complication, without long-term current use of insulin Vitamin D deficiency Other chronic pain History of renal calculi Surgical History History of total right knee replacement (TKR) Hx of dilation and curettage History of laryngoscopy Hx of umbilical hernia repair Hx of arthroscopy of left knee Hx of lithotripsy History of esophagogastroduodenoscopy (EGD) S/P repair of ventral hernia H/O abdominal hysterectomy H/O tubal ligation History of colonoscopy Family History Father Diabetes mellitus HTN (hypertension) Mother No problems noted. 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 Neuro: Normal sensation of the tips of all digits of the bilateral hand at this time Vascular: Cap refill brisk Pain: No tenderness to palpation about the incision site in the left wrist No pain with range of motion of bilateral hands ROM: Patient was able to make a closed fist and extend all digits of bilateral hands fully and without difficulty Skin: No lacerations or abrasions. General: No ecchymosis, erythema, or evidence of infection. Psych: Appears grossly normal Affect normal Attitude cooperative Assessment & Plan Assessment & Plan (1) Left carpal tunnel syndrome: Code(s): G56.02 - Carpal tunnel syndrome, left upper limb Category: Medical (2) Numbness and tingling of right hand: Code(s): R20.0 - Anesthesia of skin; R20.2 - Paresthesia of skin Category: Medical Plan 1. Status post left carpal tunnel release With complete symptom resolution postoperatively DOS 07/14/2024 Patient appears to be recovering well postoperatively Patient is educated about the typical recovery course No acute follow-up needed, as patient appears to be recovering quite well Patient was amenable to this plan 2. Numbness and tingling of right hand Symptoms intermittent, daily, worse at night No EMG Patient is ordered EMG and nerve conduction study for assessment of the health of the nerves of the right upper extremity Follow-up after EMG for results review and discussion of further treatment options Patient was amenable to this plan Orders: Orders NE electromyogram (EMG) Today R20.0 - Anesthesia of skin, R20.2 - Paresthesia of skin NE nerve conduction velocity Today R20.0 - Anesthesia of skin, R20.2 - Paresthesia of skin Coding Level of Care Code Est Pt Level 3 (49165) Global (14846) Diagnoses Left carpal tunnel syndrome G56.02 Numbness and tingling of right hand R20.0; R20.2
--- OUTSIDE RECORDS SUMMARY | 2024-07-27 10:54 | XMS_ITS | Encounter Summary ---
Author Organization [facility] Address [address] [place] [address] Phone Care Team Providers Care Consulting Practice Director Name Role Phone [facility] Primary Care Provider [phone] Encounter Details Date Type Department Care Team (Late Contact Info) Description 12/23/2021 Documentation Only [facility] [place], [address] [place] [address] Shaun Morales PA Social History [...] Visit [facility] [address] [place] [address] Danny Mahoney MD [address] [phone] documented as of this encounter Visit Diagnoses Not on filedocumented in this encounter Care Teams Consulting Practice Director Relationship Specialty Start Date End Date [place], Kelli [address] [place], [place] [phone] PCP - General 11/26/23 documented as of this encounter
--- OUTSIDE RECORDS SUMMARY | 2024-07-27 10:54 | XMS_ITS | Clinical Summary ---
Author Organization [facility] Address [address] [place] [address] Phone Care Team Providers Care Vp Public Relations Name Role Phone Kelli Horton Primary Care Provider [phone] Allergies Active Allergy Reactions Criticality Noted Date [...] follow up pelvic exam C-scope: [place] [facility] [place] BMD: Routine age 67 Right bundle-branch block 07/22/20222022 Obstructive sleep apnea syndrome 03/21/2022 02/24/2023 Overview (02/24/2023): ?? Has CPAP Chronic low back pain 03/12/2022 02/24/2023 Overview (02/24/2023): ?? Hydrocodone t.i.d as needed. ?? Compliant with PACKAGING OPERATOR agreement Pain of knee region 03/12/2022 02/24/2023 [...] Exam: [facility] [place] Lipid panel: 03/2022 WNL ASCVD: LDL < [...] Date H/O: hypothyroidism 07/12/2019 07/12/19 20 Immunizations Immunization Administration Dates Next Due Hepatitis A 10/01/2009,02/13/2009 [...] [facility] [address] [place] [address] Danny Mahoney MD [address] [facility] [address] [place] [address] Health Maintenance Due Date Last [...] 12/16/2021, 11/21/2021, Additional history exists Pneumococcal Vaccine: 50+ Years Completed 04/22/2023, 03/27/2017, 12/31/2007 Pneumococcal Vaccine: Peds ( 0 to 5 Years) and At-Risk Patients (6 to 49 Years) Discontinued 04/22/2023, 03/27/2017, 12/31/2007 Insurance Medicaid [place] [facility] ([id number]) [facility] ([id number]) [place] [id number] Care Teams Vp Public Relations Relationship Specialty Start Date End Date [facility] [address] [place] [address] PCP - General 11/26/23
--- OUTSIDE RECORDS SUMMARY | 2024-07-27 10:54 | XMS_ITS | Encounter Summary ---
Author Organization [employer] Address [address] [facility] 7t [place] [address] Care Team Providers Care Extender Name Role Phone Sol [facility] Primary Care Provider [phone] Reason for Visit * Reason Onset Date Comments Med Refill 01/28/2024 Encounter Details Date Type Department Care Team ([facility] st Contact Info) Description 01/28/2024 Telephone [facility] [place] [facility] 230 [place] [address] [facility] 230 [place] [address] Med Refill Social History Tobacco Use Types [...] Description 09/14/2024 9:00 AM EDT Clinical Support [facility] [address] [place] [address] Tammie Diaz RN 10/03/2024 9:45 AM EDT Office Visit [address] [address] Kelli Horton FNP [address] [place] [address] documented as of this encounter Visit Diagnoses Not on filedocumented in this encounter Additional Health Concerns Assessment Noted Time PHQ-9 Depression Total Score: 0 12/25/19 24 10:25 AM EDT documented as of this encounter Care Teams Extender Relationship Specialty Start Date End Date Kelli Horton FNP [address] [place] [address] PCP - General Family Medicine 05/20/22 documented as of this encounter
--- OUTSIDE RECORDS SUMMARY | 2024-07-27 10:54 | XMS_ITS | Encounter Summary ---
Author Organization [employer] Address [address] [facility] 7t [place] [address] Care Team Providers Care Director Of Knowledge Management Name Role Phone [facility] Primary Care Provider [phone] Reason for Visit * Reason Comments Med Refill Encounter Details Date Type Department Care Team ([facility] st Contact Info) Description 07/19/2024 Refill [facility] 230 [place] [address] [facility] 230 [place] [address] Vulvovaginal dryness; Moderate persistent asthma, unspecified whether complicated Social History Tobacco Use Types Packs/Day Years [...] 9:00 AM EDT Clinical Support [facility] [address] [place] [address] Tammie Diaz RN 10/03/2024 9:45 AM EDT Office Visit [facility] [address] [place] [address] Kelli Horton FNP [address] [place] [address] documented as of this encounter Visit Diagnoses Diagnosis Vulvovaginal dryness Moderate persistent asthma, unspecified whether complicated documented in this encounter Additional Health Concerns Assessment Noted Time PHQ-9 Depression Total Score: 0 04/04/19 25 11:23 AM EST documented as of this encounter Care Teams Director Of Knowledge Management Relationship Specialty Start Date End Date Kelli Horton FNP [address] [place] [address] PCP - General Family Medicine 05/20/22 documented as of this encounter
--- OUTSIDE RECORDS SUMMARY | 2024-07-27 10:54 | XMS_ITS | Encounter Summary ---
Author Organization [facility] Address [address] [place] [address] Phone Care Team Providers Care Aeronautical Engineering Teacher Name Role Phone [facility] Primary Care Provider [phone] Encounter Details Date Type Department Care Team (Late Contact Info) Description 12/23/2021 Documentation Only [facility] [place], [address] [place] [address] Shaun Morales PA Social History [...] [facility] [address] [place] [address] Danny Mahoney MD [address] [phone] documented as of this encounter Visit Diagnoses Not on filedocumented in this encounter Care Teams Aeronautical Engineering Teacher Relationship Specialty Start Date End Date [place], Kelli [address] [place], [place] [phone] PCP - General 11/26/23 documented as of this encounter
--- OUTSIDE RECORDS SUMMARY | 2024-07-27 10:54 | XMS_ITS | Encounter Summary ---
Author Organization [employer] Address [address] [facility] 7t [place] [address] Care Team Providers Care Fish Warden Name Role Phone [facility] Primary Care Provider [phone] Reason for Visit * Reason Onset Date Comments Med Refill 02/11/2023 Encounter Details Date Type Department Care Team ([facility] st Contact Info) Description 02/11/2023 Telephone [facility] 230 [place] [address] [facility] [address] [place] [address] Med Refill Social History Tobacco Use Types [...] from pt requesting med refill on; HYDROcodone-acetaminophen ([place]) 5-325 MG tablet documented in this encounter Plan of Treatment Upcoming Encounters Date Type Department Care Team (Late st Contact Info) Description 09/14/2024 9:00 AM EDT Clinical Support [facility] [address] [place] [address] Tammie Diaz RN 10/03/2024 9:45 AM EDT Office Visit [facility] [address] [place] [address] Kelli Horton FNP [address] [place] [address] documented as of this encounter Visit Diagnoses Not on filedocumented in this encounter Additional Health Concerns Assessment Noted Time PHQ-9 Depression Total Score: 21 022 10:03 AM EST documented as of this encounter Care Teams Fish Warden Relationship Specialty Start Date End Date Kelli Horton FNP [address] [place] [address] PCP - General Family Medicine 05/20/22 documented as of this encounter
--- OUTSIDE RECORDS SUMMARY | 2024-07-27 10:54 | XMS_ITS | Encounter Summary ---
Author Organization [employer] Address [address] [facility] 7t [place] [address] Care Team Providers Care Diesel Engine Specialist Name Role Phone Kelli Horton [facility] Primary Care Provider [phone] Reason for Visit * Reason Onset Date Comments Nurse Triage 02/11/2023 Encounter Details Date Type Department Care Team ([facility] st Contact Info) Description 02/11/2023 Telephone [facility] 230 [place] [address] [facility], [facility] 230 [place] [address] Nurse Triage Social History Tobacco Use Types [...] t he electric, gas, oil or water [employer] threatened to shut off services in your [...] the only possible outcome for this symptom Uzbek Speaker documented in this encounter Plan of Treatment Upcoming Encounters Date Type Department Care Team (Late st Contact Info) Description 09/14/2024 9:00 AM EDT Clinical Support [address] [address] Tammie Diaz RN 10/03/2024 9:45 AM EDT Office Visit [address] [address] Kelli Horton FNP [address] [place] [address] documented as of this encounter Visit Diagnoses Not on filedocumented in this encounter Additional Health Concerns Assessment Noted Time PHQ-9 Depression Total Score: 21 03/21/ 022 10:03 AM EST documented as of this encounter Care Teams Diesel Engine Specialist Relationship Specialty Start Date End Date Kelli Horton FNP [address] [place] [address] PCP - General Family Medicine 05/20/22 documented as of this encounter
--- OUTSIDE RECORDS SUMMARY | 2024-07-27 10:54 | XMS_ITS | Encounter Summary ---
Author Organization [employer] Address [address] [facility] 7t [place] [address] Care Team Providers Care Metal Inspector Name Role Phone [facility] Primary Care Provider [phone] Reason for Visit * Reason Comments Med Refill Encounter Details Date Type Department Care Team ([facility] st Contact Info) Description 12/17/2023 Refill [facility] [address] [place], [place] [phone] [facility] [address] [place] [address] Chronic low back pain, unspecified back pain [...] Description 09/14/2024 9:00 AM EDT Clinical Support [address] [address] Tammie Diaz RN 10/03/2024 9:45 AM EDT Office Visit [address] [address] Kelli Horton FNP [address] [place] [address] documented as of this encounter Visit Diagnoses Diagnosis Chronic low back pain, unspecified back pain laterality, unspecified whether sciatica present documented in this encounter Additional Health Concerns Assessment Noted Time PHQ-9 Depression Total Score: 0 07/22/19 24 9:10 AM EDT documented as of this encounter Care Teams Metal Inspector Relationship Specialty Start Date End Date Kelli Horton FNP [address] [place] [address] PCP - General Family Medicine 05/20/22 documented as of this encounter
--- OUTSIDE RECORDS SUMMARY | 2024-07-27 10:54 | XMS_ITS | Encounter Summary ---
Author Organization [employer] Address [address] [facility] 7t [place] [address] Care Team Providers Care Technology Program Manager Name Role Phone Sol [facility] Primary Care Provider [phone] Reason for Visit * Reason Comments Med Refill Encounter Details Date Type Department Care Team (Late st Contact Info) Description 12/16/2022 Refill [facility] [address] [place] [address] [phone] Name, MD Haroon [address] [place] [address] Chronic low back pain, unspecified back pain [...] Description 09/14/2024 9:00 AM EDT Clinical Support [facility] [address] [place] [address] [phone] Tammie Diaz RN 10/03/2024 9:45 AM EDT Office Visit [facility] [address] [place] [phone] [place] [address] [place] [address] documented as of this encounter Visit Diagnoses Diagnosis Chronic low back pain, unspecified back pain laterality, unspecified whether sciatica present documented in this encounter Additional Health Concerns Assessment Noted Time PHQ-9 Depression Total Score: 21 022 10:03 AM EST documented as of this encounter Care Teams Technology Program Manager Relationship Specialty Start Date End Date Kelli Horton FNP 230 [place] [address] PCP - General Family Medicine 05/20/22 documented as of this encounter
--- OUTSIDE RECORDS SUMMARY | 2024-07-27 10:54 | XMS_ITS | Encounter Summary ---
Author Organization [facility] Address [address] [place] [address] Phone Care Team Providers Care Rn Occupational Name Role Phone [facility] Primary Care Provider Encounter Details Date Type Department Care Team (Late Contact Info) Description 12/10/2021 Documentation Only [facility] [place], [address] [place] [address] Shaun Morales PA Social History [...] Visit [facility] [address] [place] [address] Danny [place]oney [place] [address] [phone] documented as of this encounter Visit Diagnoses Not on filedocumented in this encounter Care Teams Rn Occupational Relationship Specialty Start Date End Date [place], Kelli [address] [place], [place] [phone] PCP - General 11/26/23 documented as of this encounter
--- OUTSIDE RECORDS SUMMARY | 2024-07-27 10:54 | XMS_ITS | Encounter Summary ---
Author Organization [employer] Address [address] [facility] 7t [place] [address] Care Team Providers Care Hooker Machine Tender Name Role Phone Kelli Horton VOLUNTEER SERVICES SPECIALIST Primary Care Provider [phone] Encounter Details Date Type Department Care Team ([facility] st Contact Info) Description 02/06/2023 Abstract [facility] 230 [place] [address] Madeleine Valle Social History Tobacco Use Types [...] Description 09/14/2024 9:00 AM EDT Clinical Support [facility] [address] [place] [address] Tammie Diaz RN 10/03/2024 9:45 AM EDT Office Visit [address] [address] Kelli Horton FNP [address] [place] [address] documented as of this encounter Procedures Procedure Name Priority Date/Time Associated Diagnosis Comments COLONOSCOPY Routine 05/03/2018 documented in this encounter Results * Hm Colonoscopy (05/03/2018) Colonoscopy Normal Normal Narrative Madeleine Valle - 05/03/2018 Repeat in 10 years us Historical Provider HEALTH MAINTENANCE Final Result documented in this encounter Visit Diagnoses Not on filedocumented in this encounter Additional Health Concerns Assessment Noted Time PHQ-9 Depression Total Score: 21 12/2 022 10:03 AM EST documented as of this encounter Care Teams Hooker Machine Tender Relationship Specialty Start Date End Date Kelli Horton FNP [address] [place] [address] PCP - General Family Medicine 05/20/22 documented as of this encounter
--- OUTSIDE RECORDS SUMMARY | 2024-07-27 10:54 | XMS_ITS ---
Author Organization [facility] Address [address] [place] [address] Care Team Providers Care Flatware Maker Name Role Phone [facility] [place] Primary Care Provider Shivani kellogg Jason Lora Unavailable [phone] Allergies No Known Allergies REASON FOR VISIT [...] 02/25/2024 Encounters Encounter Location Date Provider Diagnosis [facility] [address] [place] [address] 02/25/2024 Jason Lora Other cirrhosis of liver [...] AM, [address], [address], [place], [address], Progress Notes * LUDIVINA MAGUIRE NDOB:1955 ( 68 yo F)Acc No.[id number]:02/25/2024 Progress Notes Patient:?LUDIVINA MAGUIRE N Provider:?Jason Lora MD :1955???Age:68 Y???Sex:Female D ate:02/25/2024 Address:[address] [place] [address], [id number] Pcp:ALYSSA Nascimento Subjective: * Chief Complaints: * [...] polyps Bladder suspension by Dr Hernandez in [place] for urinary incontinence on 09/19/13. Veins in [...] Procedure Codes:?3017F COLOR ECTAL CA SCREEN DOC [id number] TOBACCO [id number] BP SCR NOT PRFRM REC REASON NOS [...] Lora MD Date:? 024 Generated for Esteban christianson/Marcel/eTransmitting on:?07/27/2024 10:54 AM EDT History and Physical Notes * [...]
--- OUTSIDE RECORDS SUMMARY | 2024-07-27 10:54 | XMS_ITS ---
Author Organization [facility] Address [address] [facility] [address] [place] [address] Care Team Providers Care Waist Fitter Name Role Phone [facility] [place] Primary Care Provider UnaJason Birmingham Unavailable [phone] REASON FOR VISIT omeprazole Rx Medications Medication SIG (Take, Route, Fr equency, Duration) Notes Start Date End Date Status Omeprazole 20 MG Take 1 every morning Orally Once a day for 30 days 06/15/2024 Active Encounters Encounter Location Date Provider Diagnosis [facility] [address] [place] [address] [place] [phone] 06/15/2024 Jason Lora Plan Of Treatment Medication Medication Name Sig Start Date Stop Date Notes Omeprazole 20 MG Take 1 every morning Orally Once a day for 30 days 06/15/2024 Next Appt Details Provider Name:Jason Lora , 02/23/2025 09:20:00 AM, [address] [facility], [address] [facility], [place], [address], Progress Notes * TRUPTI MAGUIRE NDOB:1955 ( 68 yo F)Acc No.[id number]:06/15/2024 Patient:?TRUPTI MGAUIRE :1955???Age:68 Y???Sex:Female Address:[address] [place] [address] * Refills? Start Omeprazole Capsule Delayed Release, 20 MG, Orally, 30, Take 1 every morning, Once a day, 30 days, Refills=11 * true * Date:? Generated for Esteban christianson/Marcel/eTransmitting on:?07/27/2024 10:54 AM EDT
--- OUTSIDE RECORDS SUMMARY | 2024-07-27 10:54 | XMS_ITS | Encounter Summary ---
Author Organization [employer] Address [address] [facility] 7t [place] [address] Care Team Providers Care Bessemer Converter Operator Name Role Phone Sol, [facility] Primary Care Provider [phone] Reason for Visit * Reason Onset Date Comments Med Refill 03/15/2024 Encounter Details Date Type Department Care Team ([facility] st Contact Info) Description 03/15/2024 Telephone [facility] [address] [place] [address] [facility] [address] [place] [address] Med Refill Social History Tobacco Use Types [...] medication refill. Medications needing refill : HYDROcodone-acetaminophen ([place]) 5-325 MG tablet To be sent to: [facility] - [place], [place] - [address] [place] [address] documented in this encounter Plan of Treatment Upcoming Encounters Date Type Department Care Team ([facility] st Contact Info) Description 09/14/2024 9:00 AM EDT Clinical Support [facility] [address] [place] [phone] Tammie Diaz RN 10/03/2024 9:45 AM EDT Office Visit [facility] [address] [place] [address] Kelli Horton FNP [address] [place] [address] documented as of this encounter Visit Diagnoses Not on filedocumented in this encounter Additional Health Concerns Assessment Noted Time PHQ-9 Depression Total Score: 0 12/25/19 10:25 AM EDT documented as of this encounter Care Teams Bessemer Converter Operator Relationship Specialty Start Date End Date Kelli Horton FNP [address] [place] [address] PCP - General Family Medicine 05/20/22 documented as of this encounter
--- OUTSIDE RECORDS SUMMARY | 2024-07-27 10:54 | XMS_ITS | Encounter Summary ---
Author Organization [employer] Address [address] [facility] 7t [place] [address] Care Team Providers Care Electronic Engineering Technician Name Role Phone Beatriz Ford [facility] Primary Care Provider Aj whittakernavin Treadwell [facility] Primary Care Provider [phone] Reason for Visit * Reason Comments Med Refill Encounter Details Date Type Department Care Team ([facility] st Contact Info) Description 04/03/2022 Refill [facility] [address] [place] [address] Name, MD Haroon [address] [place] [address] Chronic pain syndrome Social History Tobacco Use [...] on hydrocodone med , please contact .. (Romansh speaker) documented in this encounter Plan of Treatment Upcoming Encounters Date Type Department Care Team (Late st Contact Info) Description 09/14/2024 9:00 AM EDT Clinical Support [address] [address] Tammie Diaz RN 10/03/2024 9:45 AM EDT Office Visit [address] [address] Kelli Horton FNP [address] [place] [address] documented as of this encounter Visit Diagnoses Diagnosis Chronic pain syndrome documented in this encounter Additional Health Concerns Assessment Noted Time PHQ-9 Depression Total Score: 21 022 10:03 AM EST documented as of this encounter Care Teams Electronic Engineering Technician Relationship Specialty Start Date End Date Beatriz Ford FNP PCP - General Family Medicine 02/21/22 05/19/22 Kelli Horton FNP [address] [place] [address] PCP - General Family Medicine 05/20/22 documented as of this encounter
--- OUTSIDE RECORDS SUMMARY | 2024-07-27 10:54 | XMS_ITS | Encounter Summary ---
Author Organization [facility] Address [address] [place] [address] Phone Care Team Providers Care Community Relations Officer Name Role Phone [facility] Primary Care Provider [phone] Encounter Details Date Type Department Care Team (Late Contact Info) Description 12/20/2021 Documentation Only [facility] [place], [address] [place] [address] Shaun Morales PA Social History [...] [facility] [address] [place] [address] Danny Mahoney MD [address] [phone] documented as of this encounter Visit Diagnoses Not on filedocumented in this encounter Care Teams Community Relations Officer Relationship Specialty Start Date End Date Waves, Kelli [address] [place], [place] [phone] PCP - General 11/26/23 documented as of this encounter
--- OUTSIDE RECORDS SUMMARY | 2024-07-27 10:54 | XMS_ITS | Encounter Summary ---
Author Organization [employer] Address [address] [facility] 7t [place] [address] Care Team Providers Care Trichologist Name Role Phone Beatriz Ford [facility] Primary Care Provider Kelli Henning [facility] Primary Care Provider [phone] Encounter Details Date Type Department Care Team (Late Contact Info) Description 03/20/2022 Telephone [facility] MEDICINE [address] [place] [address] [phone] Beatriz Ford FNP Social History Tobacco Use [...] Description 09/14/2024 9:00 AM EDT Clinical Support [address] [phone] Tammie Diaz RN 10/03/2024 9:45 AM EDT Office Visit [address] [address] Kelli Horton FNP [address] [place] [address] documented as of this encounter Visit Diagnoses Not on filedocumented in this encounter Care Teams Trichologist Relationship Specialty Start Date End Date Beatriz Ford FNP PCP - General Family Medicine 02/21/22 05/19/22 Kelli Horton FNP [address] [place] [address] PCP - General Family Medicine 05/20/22 documented as of this encounter
--- OUTSIDE RECORDS SUMMARY | 2024-07-27 10:55 | XMS_ITS | Patient Health Record ---
Author Organization [facility] Address [address] [place] [address] Care Team Providers Care Pack Changer Name Role Phone [facility] Primary Care Provider Unava ilable Jason Lora Unavailable [phone] Allergies No Known Allergies Results Component Value Reference Range Notes US abdomen comp w elastograp hy (Not yet reviewed by provider) Interpretation: Performing Lab: Notes/Report: [facility] [address] [place] [id number] Ultrasound Report Signed Patient: Ludivina Hussein MR#: [id number] : 1955 Acct:[id number] Age/Sex: 68 / F ADM Date: 04/13/24 Loc: HO.US Attending Dr: Jason Lora MD Ordering Physician: Jason Lora MD Date of Service: 04/13/24 Procedure(s): US abdomen comp w elastography Accession Number(s): [id number] cc: Jason Lora MD; [facility] EXAMINATION: US ABDOMEN COMPLETE WITH LIVER ELASTOGRAPHY [...] 04/14/24 0742 DD/ 1001 TD/TT: 04/13/24 1033 Industrial Maintenance Repairer Helper: [place] [address] Ultrasound Report Signed Patient: Ludivina Hussein MR#: [id number] : 1955 Acct:[id number] Age/Sex: 68 / F ADM Date: 04/13/24 Loc: HO.US Attending Dr: Jason Lora MD Ordering Physician: Jason Lroa MD Date of Service: 04/13/24 Procedure(s): US abd omen comp w elastography Accession Number(s): [id number] cc: Jason Lora MD; [facility] EXAMINATION: US ABDO MEN COMPLETE WITH LIVER [...] by: Jason Lombardi MD 04/14/2024 07:42 AM [facility] Dictated By: Jason Lombardi MD Signed By: <Ender nava signed by Jason Lombardi MD in OV> 04/14/24 0742 DD/ 1001 TD/TT: 04/13/24 1033 Industrial Maintenance Repairer Helper: Reason For Referral No Information Medications Medication [...] Problem Status W/U Status Risk Notes Problem 190817888 Encounter for screening for malignant neoplasm of colon (Z12.11) Active confirmed Problem 03605232 Other cirrhosis of liver (K74.69) Active confirmed Problem 179113283 Fatty liver (K76.0) Active confirmed Problem [id number] History of hepatitis C (Z86.19) Active confirmed Problem 3232819 Chronic gastritis without bleeding, unspecified gastritis type (K29.50) Active confirmed Vital Signs Blood pressure diastolic 00 mm Hg 02/25/2024 Height 58 in 02/25/2024 Blood pressure systolic 00 mm Hg 02/25/2024 Weight 185 lbs 02/25/2024 BMI 38.66 kg/m2 02/25/2024 Encounters Encounter Location Date Provider Diagnosis [facility] [address] [place] [address] 02/25/2024 Jason Lora Other cirrhosis of liver K74.69 ; History of hepatitis C Z86.19 and Fatty liver K76.0 [facility] [address] [place] [address] 05/12/2024 Jason Lora [facility] [address] [place] [phone] 06/15/2024 Jason Lora Assessments Encounter Date Diagnosis [...] Provider Name:Jason Lora , 02/23/2025 09:20:00 AM, [address] [place] [address], [address], [place], [address], Insurance Providers Payer Name Payer Address Payer Phone Subscriber Number Group Number Insured Name Patient Relationship to Insured Coverage Start Date Coverage End Date [facility] Claims [address] [address] [place] [address] [id number] LUDIVINA HUSSEIN Self - patient is the insured MEDICAID OF [employer] [address] [place] [address] [id number] LUDIVINA HUSSEIN Self - patient is the [...] ursodiol 750 mg b.i.d. Asthma Anxiety Denies PA,CVA,renal disease Kidney stones Negative colonoscopy with Dr. Rodriguez in [place] Urinary incontinence Neg. screening colonoscopy in 04/2018 EGD in 04/2018 with erosive g astritis but neg. Hpylori, no varices, small to mod-sized hiatal hernia Surgical History Surgery Date(Month/Year) Tubal ligation Umbilical hernia surgery 03/2013-Dr. Annel narayan Vocal cord polyps Bladder suspension by Dr Avelino lama in [place] for urinary incontinence on 09/19/13. Veins in her left leg Right knee replacement with Dr. Solorzano 2020
--- OUTSIDE RECORDS SUMMARY | 2024-07-27 10:55 | XMS_ITS | Encounter Summary ---
Author Organization [employer] Address [address] [facility] 7t [place] [address] Care Team Providers Care Parts Data Writer Name Role Phone [facility] Primary Care Provider [phone] Reason for Visit * Reason Onset Date Comments Referral 12/11/2022 Encounter Details Date Type Department Care Team (Late st Contact Info) Description 12/11/2022 Telephone [facility] MEDICINE [address] [place] [address] [facility] [address] [place] [address] Referral Social History Tobacco Use Types Packs/Day [...] and medication list to be faxed to [phone]. documented in this encounter Plan of Treatment Upcoming Encounters Date Type Department Care Team (Late st Contact Info) Description 09/14/2024 9:00 AM EDT Clinical Support [facility] MEDICINE [address] [place] [address] Tammie Diaz RN 10/03/2024 9:45 AM EDT Office Visit [address] [address] Kelli Horton FNP [address] [place] [address] documented as of this encounter Visit Diagnoses Not on filedocumented in this encounter Additional Health Concerns Assessment Noted Time PHQ-9 Depression Total Score: 21 03/21/ 022 10:03 AM EST documented as of this encounter Care Teams Parts Data Writer Relationship Specialty Start Date End Date Kelli Horton FNP [address] [place] [address] PCP - General Family Medicine 05/20/22 documented as of this encounter
--- OUTSIDE RECORDS SUMMARY | 2024-07-27 10:55 | XMS_ITS | Encounter Summary ---
Author Organization [employer] Address [address] [facility] 7t [place] [address] Care Team Providers Care Credit Clerk Name Role Phone [facility] Primary Care Provider [phone] Encounter Details Date Type Department Care Team (Late st Contact Info) Description 09/30/[address] [phone] Social History Tobacco Use Types Packs/Day Years [...] Description 09/14/2024 9:00 AM EDT Clinical Support [address] [phone] Tammie Diaz RN 10/03/2024 9:45 AM EDT Office Visit [address] [phone] [address] [phone] documented as of this encounter Procedures Procedure [...] documented as of this encounter Care Teams Credit Clerk Relationship Specialty Start Date End Date Kelli Horton FNP [address] [place] [address] PCP - General Family Medicine 05/20/22 documented as of this encounter
--- OUTSIDE RECORDS SUMMARY | 2024-07-27 10:55 | XMS_ITS | Clinical Summary ---
Author Organization [employer] Address [address] [place] [address] Care Team Providers Care Detective [employer]arc[employer] Name Role Phone Kelli Horton BOTTLE CAPPING MACHINE OPERATOR Primary Care Provider [phone] Allergies Active Allergy Reactions Criticality Noted Date [...] RESPONDS. 2 each 2 02/24/20 23 Active atorvastatin (Lipitor) 20 MG tablet TAKE 1 TABLET BY MOUTH EVERY EVENING 90 tablet 3 10/30/19 24 Active vitamin E 180 MG (400 UNIT) capsule TAKE 1 CAPSULE BY MOUTH EVERY MORNING 90 capsule 3 12/25/19 24 Active glucose blood (FREESTYLE LITE) test stripIndication s:Type 2 diabetes mellitus with stage 3 chronic kidney disease, without long-term current use of insulin, unspecified whether stage 3a or 3b CKD (CMS/[facility]) test blood sugar twice daily 100 strip 2 03/04/20 24 Active Trelegy Ellipta 200-62.5-25 MCG/ACT aerosol powder Take 1 puff by mouth Once daily. 04/21/19 25 Active traZODone (Desyrel) 100 MG tablet Take 1 tablet by mouth at bedtime. 04/19/19 25 Active albuterol (Ventolin HFA) 108 (90 Base) MCG/ACT inhalerIndicati ons:Moderate persistent asthma with acute exacerbation Inhale 2 puffs every 4 (four) hours if needed for wheezing or shortness of breath. 18 g 3 05/13/19 25 Active albuterol (2.5 MG/3ML) 0.083% nebulizer solutionIndicat ions:Moderate persistent asthma with acute exacerbation Take 3 mL (2.5 mg) by nebulization every 6 (six) hours if needed for wheezing. 75 mL 3 05/13/19 25 Active Spacer/Aero-Hol ding Chambers (OptiChamber Amy) misc 1 each every 4 (four) hours if needed (asthma). 1 each 05/13/19 25 Active cholecalciferol (Vitamin D-3) 25 MCG tablet TAKE 1 TABLET BY MOUTH EVERY MORNING 90 tablet 3 06/09/19 25 Active calcium carbonate 1500 (600 Ca) MG tablet TAKE 1 TABLET BY MOUTH EVERY MORNING 90 tablet 3 06/09/19 25 Active lidocaine-prilo dony (Emla) 2.5-2.5 % creamIndication s:Pain in right shoulder APPLY TOPICALLY TO THE AFFECTED AREA(S) EVERY DAY 30 g 3 06/16/19 25 Active fluticasone (Flonase) 50 MCG/ACT nasal sprayIndication s:Moderate persistent asthma, unspecified whether complicated USE 1 SPRAY IN EACH NOSTRIL TWICE DAILY 16 g 5 06/16/19 25 Active HYDROcodone-patricia taminophen ([place]) 5-325 MG tabletIndicatio ns:Chronic low back pain, unspecified back pain laterality, unspecified whether sciatica present Take 1 tablet by mouth every 12 (twelve) hours if needed for severe pain. 56 tablet 07/16/19 25 Active estradiol (Estrace) 0.1 MG/GM vaginal creamIndication s:Vulvovaginal dryness INSERT 0.5 MG VAGINALLY EVERY DAY FOR 1 WEEK, THEN DECREASE TO 3 TIMES PER WEEK 42.5 g 2 07/23/19 25 Active loratadine (Claritin) 10 MG tabletIndicatio ns:Moderate persistent asthma, unspecified whether complicated TAKE 1 TABLET BY MOUTH EVERY MORNING 90 tablet 3 07/23/19 25 Active TRUEplus Lancets 33G misc TEST BLOOD SUGAR TWICE DAILY 100 each 6 07/23/19 25 Active FreeStyle lancets 1 each by Other route 2 times daily. Use bid, dx type 2 diabetes 60 each 11 01/22/20 23 2024 Discontinued loratadine (Claritin) 10 MG tabletIndicatio ns:Moderate persistent asthma, unspecified whether complicated TAKE 1 TABLET BY MOUTH EVERY MORNING 90 tablet 3 07/29/19 24 2024 Discontinued estradiol (Estrace) 0.1 MG/GM vaginal creamIndication s:Vulvovaginal dryness Insert 0.5mg vaginally once daily for 1 week then decrease to 3 times per week 42.5 g 2 10/30/19 24 2024 Discontinued Active Problems Problem Noted Date Diagnosed Date Gait instability 05/05/2023 Acute conjunctivitis of right eye 03/05/2023 Healthcare maintenance 07/28/2022 Overview (05/05/2023): Mammo: 09/2022 Birads 1 Pap: S/P total hysterectomy for benign reason. Pt does not know if cervix remains. Will schedule follow up pelvic exam C-scope: [place] [facility]. Will request records BMD: Routine age 67 Assessment & Plan (05/05/2023 8:28 PM EST): DEXA scan ordered RBBB 07/22/2022 Obstructive sleep apnea syndrome 03/21/2022 Overview (07/28/2022): ?? Has CPAP Chronic low back pain 03/12/2022 Overview (07/28/2022): ?? Hydrocodone t.i.d as needed. ?? Compliant with [facility] HE[facility] agreement Assessment & Plan (05/05/2023 8:15 PM EST): Continue hydrocodone as prescribed. Patient will bring tablets to pharmacy to determine if able to order prior formulation Declines chronic pain group at this time Follow as scheduled with [facility] Chronic pain of right knee 03/12/2022 Overview (07/28/2022): ?? Referred to PT for balance training 06/2022 Type 2 diabetes mellitus, wi thout long-term current use of insulin 10/01/2020 Overview (04/04/2024): Metformin monotherapy CKD stage 3 followed by nephrology Foot Exam: 03/2024 risk 0 Eye Exam: Followed [facility] in [place] Statin: Yes ASA: No PATRICIA/ARB: Yes Encouraged [...] (04/04/2024): Followed by DR. Lora at [facility] Hepatic steatosis, hx of chronic HCV [...] Problem Noted Date Diagnosed Date Resolved Date Rienzi eye disease of right eye 03/05/2023 03/05/2023 [...] Encounters Date Type Department Care Team Description 07/19/[address] [facility] [address] [place] [address] Kelli Horton FNP Vulvovaginal dryness; Moderate persistent asthma, unspecified whether complicated 07/13/[address] [facility] [address] [place] [phone] Lynn Dao, RN Results 07/13/[address] [facility] [address] [place] [address] Kelli Horton FNP Chronic low back pain, unspecified back pain laterality, unspecified whether sciatica present 06/28/[address] [facility] [address] [place] [address] Kelli Horton FNP stable lab letter 06/24/2024 Orders Only [facility] [address] [place] [address] Kelli Horton FNP 06/16/2024 Travel 06/15/[address] [facility] [address] [place] [address] [place], Kelli, BOTTLE CAPPING MACHINE OPERATOR Pain in right shoulder; Moderate persistent asthma, unspecified whether complicated 06/08/[address] [facility] [address] [place] [address] [facility] 05/24/2024 Telephone [place] [facility] [address] [place] [address] [facility] 05/23/2024 Telephone [place] [facility] [address] [place] [address] [place] 05/21/2024 Orders Only GENERIC EXTERNAL DATA DEPARTMENT Provider, Generic External Data 05/19/2024 Orders Only [facility] [address] [place] [address] [facility] Obstructive sleep apnea syndrome (Primary Dx) 05/13/2024 9:00 AM EST Office Visit [facility] [address] [place] [address] Rinku Chappell MD Influenza A (Primary Dx); Moderate persistent asthma with acute exacerbation 05/12/[address] [facility] [address] [place] [address] [facility] Chronic low back pain, unspecified back pain laterality, unspecified whether sciatica present 05/11/2024 Orders Only [facility] [address] [place] [address] [facility] Obstructive sleep apnea syndrome (Primary Dx) [...] AM EDT Clinical Support [facility] [address] [place] [phone] Tammie Diaz RN 10/03/2024 9:45 AM EDT Office Visit [facility] [address] [place] [phone] [facility] [address] [place] [address] Health Maintenance Due Date Last Done Comments CT Colonography 1957 FIT DNA/Cologuard 1957 FIT 1957 FOBT 1955 Sigmoidoscopy 1957 Alcohol/Substance Use Screening 1969 Mammogram 06/15/2024 06/16/2023, 030 04/2022, 04/15/2021, Additional history exists SDOH Screening [...] Procedure Name Priority Date/Time Associated Diagnosis Comments AMB REFERRAL TO PULMONOLOGY Routine 07/07/2024 Moderate persistent asthma with acute exacerbation LIPID PANEL, STANDARD Routine 06/24/2024 10:01 AM [...] FUNCTION PANEL Routine 05/21/2024 8:17 PM EST CBC WITH AUTO DIFFERENTIAL Routine 05/21/2024 8:17 PM EST PROTHROMBIN TIME-INR Routine 05/21/2024 8:17 PM EST SARS COV2/INFLUENZA A/B AND RSV RNA QL NAAT Routine 05/21/2024 8:17 PM EST LDCT LUNG SCREENING Routine 05/19/2024 4 :13 PM EST POLYSOMNOGRAM Routine 05/11/2024 Obstructive sleep apnea syndrome COMPREHENSIVE METABOLIC PANEL Routine 05/05/2024 12:33 PM EST CBC WITH AUTO DIFFERENTIAL Routine 05/05/2024 12:33 PM EST SARS COV2/INFLUENZA A/B AND RSV RNA QL NAAT Routine 05/05/2024 12:33 PM EST XR CHEST 2 VIEWS Routine 05/05/2024 12:2 3 PM EST POCT GLYCATED HEMOGLOBIN, TOTAL Routine 04/04/2024 11:24 [...] Recently Relevant to Health Maintenance Results * Referral to Pulmonology (07/07/2024) [facility] OUTPATIENT REFERRAL ORDERABLE S Final Result * Lipid Panel, Standard (06/24/2024 10:01 AM EDT) Triglycerides 93 <150 mg/dL [facility] Comment:Desirable Triglyceri de: less than 150 mg/dLBorderline High Triglyceride 150-199 mg/dLHigh Triglyceride: 200-499 mg/dLVery High Triglyceride: greater than or equal to 5OO mg/dL Cholesterol 131 <200 mg/dL [facility] Comment:Desirable Cholestero l: less than 200 mg/dLBorderline High Cholesterol: 200-239 mg/dLHigh Cholesterol: greater than 239 mg/dL LDL Cholesterol Calculated 64 <100 mg/dL [facility] Comment:Desirable LDL: less than 100 mg/dLNear Optimal/Above Optimal LDL: 110- 129 mg/dLBorderline High LDL: 130-159 mg/dLHigh LDL: 160-189 mg/dLVery High LDL: greater than or equal to 190 mg/dL HDL Cholesterol 49 >40 mg/dL [facility] Comment:Desirable HDL: great er than 40 mg/dL Note: This HDL assay may give artificially low results in patients with liver disease. 06/24/2024 10:0 1 AM EDT 06/24/2024 11:18 AM EDT us Kelli [place] BOTTLE CAPPING MACHINE OPERATOR LAB BLOOD ORDERABLES Final Re sult [facility] [address] [place] [phone] * CTA Chest PE Protocal (05/22/2024 12:18 AM EST) Anatomical Region Laterality Modality Body, Chest Computed Tomogra phy 05/22/2024 12:1 8 AM EST Narrative 05/22/2024 12:21 AM EST ? [facility] ?[address] ?[place] [address] ? CT Scan Report ? Signed ? Patient: KeenanLudivina Cox ?MR#: [id number] ? : 1955 ?Acct:[id number] ? Age/Sex: 68 / F ?ADM Date: 05/21/24 ? Loc: HO.ED ? Attending Dr: ? Ordering Physician: Khushbu Vaca MD ?? Date of Service: 05/21/24 ?? Procedure(s): CT angio chest PE protocol ?? Accession Number(s): [id number] ? cc: Khushbu Vaca MD; Kelli Horton BOTTLE CAPPING MACHINE OPERATOR ? Report Number: ?? [id number]: Total DLP = ??313.00 mGy-cm ? CLINICAL [...] DD/ 0018 ? TD/TT: 05/22/24 0018 ? Lock Operator: ? Procedure Note Donguillermoter, Image - 05/22/[address] [address] [place] Scan Report Signed Patient: Ludivina Hussein NMR#: [id number] : 8Acct:[id number] Age/Sex: 68 / FADM Date: 05/21/24 Loc: HO.ED Attending Dr: Ordering Physician: Khushbu Vaca MD Date of Service: 05/21/24 Procedure(s): CT angio chest PE protocol Accession Number(s): [id number] cc: Khushbu Vaca MD; [facility] Report Number: [id number]: Total DLP = 313.00 mGy-cm CLINICAL HISTORY: [...] This document has been electronically signed by: iTm Sr MD on 05/22/2024 00:18:43 Dictated By: Tim Sr MD Signed By: <Electronically signed by Tim Sr MD in OV> 05/22/24 0020 DD/ TD/TT: 05/22/2417 Lock Operator: [facility] External Provider IMG CT PROCEDURES Final Result * High Sensitivity Troponin I (05/21/2024 10:48 PM EST) Only the most recent of2 resultswithin the time period is included. TROPONIN I HIGH SENSITIVITY <2.7 <3.5 - 17.0 ng/L [facility] Comment:The Rosas high sens itivity Troponin-I results should beused in conjunction with other diagnostic information suchas ECG, clinical observations and information, and patientsymptoms to aid in the diagnosis of MD. 05/21/2024 10:4 8 PM EST 05/21/2024 10:54 PM EST Generic External Data Provider LAB BLOOD ORDERAB LES Final Result [facility] [address] [place] [address] [phone] * XR Chest 2 Views (05/21/2024 9:21 PM EST) Only the most recent of2 resultswithin the time period is included. Anatomical Region Laterality Modality Chest Radiographic Lia ging 05/21/2024 9:21 PM EST Narrative 05/21/2024 9:23 PM EST ? [facility] ?[address] ?[place] [address] ?XRay Report ? Signed ? Patient: Keenan,Ludivina N ?MR#: [id number] ? : 1955 ?Acct:[id number] ? Age/Sex: 68 / F ?ADM Date: 03/01/25 ? Loc: HO.ED ? Attending Dr: ? Ordering Physician: Vane Garcia ?? Date of Service: 05/21/24 ?? Procedure(s): XR chest 2V ?? Accession Number(s): [id number] ? cc: Vane Garcia; Kelli Horton BOTTLE CAPPING MACHINE OPERATOR ? CLINICAL HISTORY: cp ? 2 view [...] ? DD/ 20 ? TD/TT: 05/21/242120 ? Lock Operator: ? Procedure Note Donotcarleenter, Image - 05/21/2024 [place] [address] XRay Report Signed Patient: Ludivina Hussein NMR#: [id number] : 8Acct:[id number] Age/Sex: 68 / FADM Date: 05/21/24 Loc: HO.ED Attending Dr: Ordering Physician: Vane Garcia Date of Service: 05/21/24 Procedure(s): XR chest 2V Accession Number(s): [id number] cc: Vane Garcia; [facility] CLINICAL HISTORY: cp 2 view chest x-ray. [...] in OV> 05/21/242121 DD/ 20 TD/TT: 05/21/242120 Lock Operator: [facility] External Provider IMG XR PROCEDURES Edited Result - Final * D Dimer High Sensitivity (05/21/2024 8:17 PM EST) D Dimer High Sensitivity 246 NG/ML [facility] Comment:D-DIMER HS REFERENCE RANGENote: Our [...] Provider LAB BLOOD ORDERAB LES Final Result [facility] [address] [place] [phone] * SARS-CoV-2 RNA, Influenza A/B, and RSV RNA, Ql NAAT (05/21/2024 8:17 PM EST) Only the most recent of2 resultswithin the time period is included. Pathologist [facility] Influenza A PCR NEGATIVE Negative [facility] Influenza B PCR NEGATIVE Negative [facility] Resp Syncy Virus RNA Qual PCR NEGATIVE Negative [facility] SARS COV2 PCR NEGATIVE Negative [facility] Comment:All test results mus t [...] and positive influenza A/B results arereported to [facility]. 05/21/2024 8:17 PM EST 05/21/2024 8:20 PM EST us Generic External Data Provider LAB MICROBIOLOGY - GENERAL ORDERABLES Final Result [facility] [address] [place] [address] [phone] * (ABNORMAL) CBC auto differential (05/21/2024 8:17 PM EST) Only the most recent of2 resultswithin the time period is included. White Blood Count 8.2 4.8 - 10.8 X10*3/uL [facility] Red Blood Count 3.94(L) 4.20 - 5.50 X10*6/uL [facility] Hemoglobin 12.2 12.0 - 16.0 g/dl [facility] Hematocrit 34.9(L) 37.0 - 47.0 % [facility] Mean Corpuscular Volume 88.6 80.0 - 98.0 fL [facility] Mean Corpuscular Hemoglobin 31.0 27.0 - 33.0 pg [facility] Mean Corpuscular HGB Conc 35.0 31.0 - 35.0 g/dl [facility] Red Cell Distribution Width 12.0 11.0 - 16.0 % [facility] Platelet Count 276 160 - 400 X10*3/uL [facility] Mean Platelet Volume 8.8(L) 9.4 - 12.3 fL [facility] Neutrophils Percent Auto 57.0 45 - 73 % [facility] Imm Gran Pct Auto 0.2 0.0 - 0.4 % [facility] Lymphocytes Percent Auto 30.1 20 - 40 % [facility] Monocytes Percent Auto 6.7 2 - 11 % [facility] Eosinophils Percent Auto 5.6(H) 0 - 4 % [facility] Basophils Percent Auto 0.4 0 - 2 % [facility] NRBC Pct Auto 0.0 0.0 - 0.2 /100WBC [facility] Neutrophils Absolute Auto 4.7 2.0 - 8.3 x10*3/uL [facility] Imm Gran Abs Auto 0.02 0.00 - 0.03 X10*3/uL [facility] Lymphocytes Absolute Auto 2.5 1.2 - 4.9 X10*3/uL [facility] Monocytes Absolute Auto 0.6 0.1 - 1.2 X10*3/uL [facility] Eosinophils Absolute Auto 0.5(H) 0.0 - 0.4 X10*3/uL [facility] Basophils Absolute Auto 0.0 0.0 - 0.2 X10*3/uL [facility] NRBC Abs Auto 0.000 0.0 - 0.012 X10*3/uL [facility] 05/21/2024 8:17 PM EST 05/21/2024 8:20 PM EST us Generic External Data Provider LAB BLOOD ORDERAB LES Final Result Performing Organization Address City/State/[facility] Co de Phone Number [facility] [address] [place] [phone] * (ABNORMAL) Prothrombin Time-INR (05/21/2024 8:17 PM EST) Prothrombin Time 10.7(L) 10.9 - 12.4 SEC [facility] INTERNATIONAL NORM RATIO 0.9 0.9 - 1.1 [facility] Comment:INTERNATIONAL NORMAL IZED RATIO (INR) [...] ORDERAB LES Final Result Performing Organization Address [facility] Co de Phone Number [facility] [address] [place] [phone] * Magnesium (05/21/2024 8:17 PM EST) Magnesium 1.9 1.6 - 2.6 mg/dL [facility] 05/21/2024 8:17 PM EST 05/21/2024 8:20 PM EST us Generic External Data Provider LAB BLOOD ORDERAB LES Final Result Performing Organization Address [facility] Phone Number [facility] [address] [place] [phone] * (ABNORMAL) Hepatic Function Panel (05/21/2024 8:17 PM EST) Bilirubin, Total 0.3 0.0 - 1.0 mg/dL [facility] Bilirubin, Direct 0.1 0.0 - 0.5 mg/dL [facility] Aspartate Amino Transferase 31 5 - 31 U/L [facility] Alanine Aminotransferase 40(H) 0 - 31 U/L [facility] Total Protein 7.2 6.5 - 8.0 g/dL [facility] Albumin Level 3.6 3.5 - 5.0 g/dL [facility] Alkaline Phosphatase 109 39 - 117 U/L [facility] 05/21/2024 8:17 PM EST 05/21/2024 8:20 PM EST us Generic External Data Provider LAB BLOOD ORDERAB LES Final Result Performing Organization Address [facility] Co de Phone Number [facility] [address] [place] [phone] * (ABNORMAL) Basic Metabolic Panel (05/21/2024 8:17 PM EST) Sodium 140 135 - 145 mmol/L [facility] Potassium 4.2 3.3 - 5.1 mmol/L [facility] Chloride 105 96 - 108 mmol/L [facility] Carbon Dioxide 26 22 - 29 mmol/L [facility] Anion Gap 13 12 - 20 [facility] Urea Nitrogen (BUN) 16 9 - 16 mg/dL [facility] Creatinine, Serum 0.92 0.5 - 1.4 mg/dL [facility] Creatinine Clr Calc Pharmacy 56.1 [facility] Comment:Provided height and weight: 147.32 cm,86.4 kg.eGFR (calculated from the MDRD study equation) and eCrCl(calculated from the Cockcroft-Gault equation) are based ondifferent parameters and may not yield comparable results.If eCrCl result is absurd, please check patient'sheight/weight. Estimated Glomerular Filt Rate >60 [facility] Comment:Chronic Kidney Disea se: Estimated GFR < 60 mL/min/1.38f2Congvp Kidney Disease: Estimated GFR < 15 mL/min/1.73m2 Glucose 147(H) 60 - 115 mg/dL [facility] Calcium 9.1 8.4 - 10.2 mg/dL [facility] 05/21/2024 8:17 PM EST 05/21/2024 8:20 PM EST us Generic External Data Provider LAB BLOOD ORDERAB LES Final Result [facility] [address] [place] [address] [phone] * CT Lung Screening Low dose (05/19/2024 4:13 PM EST) Anatomical Region Laterality Modality Lung Computed Tomogra phy 05/19/2024 4:13 PM EST Narrative 05/19/2024 4:16 PM EST ? [facility] [facility] ?[address] ?[place] [address] ? CT Scan Report ? Signed ? Patient: Keenan,Ludivina N ?MR#: [id number] ? : 1955 ?Acct:[id number] ? Age/Sex: 68 / F ?ADM Date: 05/19/24 ? Loc: HO.CT ? Attending Dr: Chaparro Jeffers MD ? Ordering Physician: Chaparro Jeffers MD ?? Date of Service: 05/19/24 ?? Procedure(s): CT lung screening ?? Accession Number(s): [id number] ? cc: Chaparro Jeffers MD; Kelli Horton BOTTLE CAPPING MACHINE OPERATOR ? Report Number: ?? [id number]: Total DLP = ?? 62.00 mGy-cm ? [...] MD in OV> ? 05/19/245 ? DD/ ? TD/TT: 05/19/24 1613 ? Lock Operator: ? Procedure Note Donotcarleenter, Image - 05/19/[address] [address] [address] Scan Report Signed Patient: Ludivina Hussein NMR#: [id number] : 8Acct:[id number] Age/Sex: 68 / FADM Date: 05/19/24 Loc: .CT Attending Dr: Chaparro Jeffers MD Ordering Physician: Chaparro Jeffers MD Date of Service: 05/19/24 Procedure(s): CT lung screening Accession Number(s): [id number] cc: Chaparro Jeffers MD; [facility] Report Number: [id number]: Total DLP = 62.00 mGy-cm CLINICAL HISTORY: [...] in OV> 05/19/241614 DD/ 12 TD/TT: 05/19/241612 Lock Operator: [facility] External Provider IMG CT PROCEDURES Final Result * Polysomnography (05/11/2024) [facility] ORDERABLES Final Result * (ABNORMAL) Comprehensive Metabolic Panel (05/05/2024 12:33 PM EST) Sodium 134(L) 135 - 145 mmol/L [facility] Potassium 3.4 3.3 - 5.1 mmol/L [facility] Chloride 99 96 - 108 mmol/L [facility] Carbon Dioxide 25 22 - 29 mmol/L [facility] Anion Gap 13 12 - 20 [facility] Urea Nitrogen (BUN) 16 9 - 16 mg/dL [facility] Creatinine, Serum 0.89 0.5 - 1.4 mg/dL [facility] Creatinine Clr Calc Pharmacy 57.0 [facility] Comment:Provided height and weight: 147.32 cm,84 kg.eGFR (calculated from the MDRD study equation) and eCrCl(calculated from the Cockcroft-Gault equation) are based ondifferent parameters and may not yield comparable results.If eCrCl result is absurd, please check patient'sheight/weight. Estimated Glomerular Filt Rate >60 [facility] Comment:Chronic Kidney Disea se: Estimated GFR < 60 mL/min/1.67r1Wjxlmz Kidney Disease: Estimated GFR < 15 mL/min/1.73m2 Glucose 136(H) 60 - 115 mg/dL [facility] Calcium 9.1 8.4 - 10.2 mg/dL [facility] Bilirubin, Total 0.4 0.0 - 1.0 mg/dL [facility] Aspartate Amino Transferase 35(H) 5 - 31 U/L [facility] Alanine Aminotransferase 44(H) 0 - 31 U/L [facility] Total Protein 7.4 6.5 - 8.0 g/dL [facility] Albumin Level 3.8 3.5 - 5.0 g/dL [facility] Alkaline Phosphatase 85 39 - 117 U/L [facility] 05/05/2024 12:3 3 PM EST 05/05/2024 12:43 PM EST Generic External Data Provider LAB BLOOD ORDERAB LES Final Result [facility] [address] [place] [address] [phone] * (ABNORMAL) POCT HGB A1C (04/04/2024 11:24 AM EST) Hemoglobin A1C 6.2(A) 4.0 - 6.0 % QC Media Lot # [id number] Lot# Expiration Date Blood 04/04/2024 11:2 4 AM EST [facility] BOTTLE CAPPING MACHINE OPERATOR POINT OF CARE TEST ENTER/EDIT ORDERABLES Final Result * BI Mammogram Screening Tomosynthesis Bilateral (06/16/2023 10:15 AM EDT) Anatomical Region Laterality Modality Breast Bilateral Mammography 06/16/2023 10:1 5 AM EDT Narrative 07/02/2023 6:24 AM EDT ? [facility] ? [address] ?[place] [address] ? Mammography Report ? Signed ? Patient: Keenan,Ludivina N ?MR#: [id number] ? : 1955 ?Acct:[id number] ? Age/Sex: 67 / F ?ADM Date: 06/16/23 ? Loc: HO.MAMMO ? Attending Dr: Kelli Horton BOTTLE CAPPING MACHINE OPERATOR ? Ordering Physician: Kelli Horton BOTTLE CAPPING MACHINE OPERATOR ?Results: 1Nega ?? tive ? Date of Service: 06/16/23 ?Follow Up: 1 Year From Orig ?? inal Mammogram ? Procedure(s): MM tomosynthesis screening BI ?? Accession Number(s): [id number] ? cc: Kelli Horotn BOTTLE CAPPING MACHINE OPERATOR ? EXAMINATION: ?? MM SCREENING DIGITAL [...] 0620 ? DD/ 1015 ? TD/TT: ? Lock Operator: ? Procedure Note Donotteresainterpreter, Image - 07/02/2023 Marisol [facility] [address] [place], [place] [address] Mammography Report Signed Patient: Ludivina Hussein NMR#: [id number] : 8Acct:[id number] Age/Sex: 67 / FADM Date: 06/16/23 Loc: [place] Attending Dr: Kelli Horton BOTTLE CAPPING MACHINE OPERATOR Ordering Physician: Kelli Horton FNPResults: 1Nalex tialbert Date of Service: 06/16/23Follow Up: 1 Year From Orig inal Mammogram Procedure(s): MM tomosynthesis screening BI Accession Number(s): [id number] cc: Kelli Horton BOTTLE CAPPING MACHINE OPERATOR EXAMINATION: MM SCREENING DIGITAL BREAST TOMOSYNTHESIS, [...] in OV> 07/02/23 0620 DD/ 1015 TD/TT: Lock Operator: [facility] BOTTLE CAPPING MACHINE OPERATOR IMG BI PROCEDURES Final Resul t * Hm Colonoscopy (05/03/2018) Colonoscopy Normal Normal Narrative Madeleine Valle - 05/03/2018 Repeat in 10 years Historical Provider HEALTH MAINTENANCE Final Result * HPV mRNA E6/E7 (03/03/2016 11:45 AM EST) HPV mRNA E6/E7 Not Detected NOT DETECTED [facility] Comment: This test was performed using the APTIMA(R) HPV Assay ([employer] This assay detects E6/E7 viral messenger RNA (mRNA) from 14 high-risk HPV types (16,18,31,33,35,39,45,51, 52,56,58,59,66,68). For additional information please refer to: http://education.Orchestrate/faq/HLW966e8 (This link is being provided for informational/ educational purposes only.) Test Performed by [employer], [employer] [facility], [address] [place] [address] Leonardo Cano M.D., Ph.D., Director of Laboratories , [place] [id number] Please note: ??Effective 12/03/2015, HPV testing will be performed using [employer]'s APTIMA test which targets mRNA. Detecting mRNA instead of DNA, as in older methods, offers significant improvements in specificity. 03/03/2016 11:4 5 AM EST Nandini Biswas NP HISTORICAL/NON ORDERABLE LABS Fi nal Result [facility] [address] from Last 3 Months or Most Recently Relevant to Health Maintenance Insurance [facility] Care Teams Detective Narcotics And Vice Relationship Specialty Start Date End Date Kelli Horton FNP [address] [place] [phone] PCP - General Family Medicine 05/20/22
--- OUTSIDE RECORDS SUMMARY | 2024-07-27 10:55 | XMS_ITS ---
Author Organization [facility] Address [address] [place] [phone] Care Team Providers Care Area Manager Name Role Phone [facility] [place] Primary Care Provider UnaJason [place] Unavailable [phone] REASON FOR VISIT r/f request ursodiol Medications Medication SIG (Take, Route, Fr equency, Duration) Notes Start Date End Date Status Magdiel 250 250 MG 3 tablets Orally Twi ce a day for 30 days 11/28/2013 Active Encounters Encounter Location Date Provider Diagnosis [facility] [address] [place] [phone] 05/12/2024 Jason Lora Plan Of Treatment Medication Medication Name Sig Start Date Stop Date Notes Magdiel 250 250 MG 3 tablets Orally Twice a day for 30 days 0 11/28/2013 Next Appt Details Provider Name:Jason Lora , 02/23/2025 09:20:00 AM, [address], [address], [place], [address], Progress Notes * TRUPTI MAGUIRE NDOB:1955 ( 68 yo F)Acc No.[id number]:05/12/2024 Patient:?TRUPTI MAGUIRE :1955???Age:68 Y???Sex:Female Address:[address] [place] [id number] * Refills? Refill Magdiel 250 Tablet, 250 MG, Orally, 180 Tablet, 3 tablets, Twice a day, 30 days, Refills=11 * true * Date:? Generated for Printi sammy/Familesg/eTransmitting on:?07/27/2024 10:54 AM EDT
== END 2024-07-27 10:08 | disposition home or self-care (01) ==
LOC: HO.HOS 09:54
PROVIDERS: PCP Registered Nurse
DX: G56.02 Carpal tunnel syndrome, left upper limb (principal); R20.0 Anesthesia of skin; R20.2 Paresthesia of skin
CPT/HCPCS: 99024; 99213

== ENCOUNTER → 2024-07-27 09:53 | Outpatient (BNVA) | payer OTHER, SELFPAY | PROVIDERS: PCP Registered Nurse | DX: R20.0 Anesthesia of skin (principal); R20.2 Paresthesia of skin; Z48.811 Encounter for surgical aftercare following surgery on the nervous system; Z98.890 Other specified postprocedural states | CPT/HCPCS: 99212 ==

== ENCOUNTER 2024-08-11 08:55 | Outpatient (REF) | payer OTHER, SELFPAY ==
--- OUTSIDE RECORDS SUMMARY | 2024-08-11 09:06 | XMS_ITS | Encounter Summary ---
Author Organization [employer] Address [address] 7 [place] [address] Care Team Providers Care Note Keeper Name Role Phone [facility] Primary Care Provider Reason for Visit * Reason Onset Date Comments Referral 12/11/2022 Encounter Details Date Type Department Care Team (Late Contact Info) Description 12/11/2022 Telephone [facility]INE [address] [place] [address] [facility] [address] [place] [address] Referral Social History Tobacco Use Types Packs/Day [...] and medication list to be faxed to [phone]. documented in this encounter Plan of Treatment Upcoming Encounters Date Type Department Care Team (Late st Contact Info) Description 09/14/2024 9:00 AM EDT Clinical Support [facility] MEDICINE [address] [place] [phone] Tammie Diaz RN 10/03/2024 9:45 AM EDT Office Visit [address] [address] Kelli Horton FNP [address] [place] [address] documented as of this encounter Visit Diagnoses Not on filedocumented in this encounter Additional Health Concerns Assessment Noted Time PHQ-9 Depression Total Score: 21 03/21/ 022 10:03 AM EST documented as of this encounter Care Teams Note Keeper Relationship Specialty Start Date End Date Kelli Horton FNP [address] [place] [phone] PCP - General Family Medicine 05/20/22 documented as of this encounter
--- OUTSIDE RECORDS SUMMARY | 2024-08-11 09:06 | XMS_ITS | Clinical Summary ---
Author Organization [facility] Address [address] [place] [address] Phone Care Team Providers Care Print Support Specialist Name Role Phone Kelli Horton Primary Care Provider [phone] Allergies Active Allergy Reactions Criticality Noted Date [...] follow up pelvic exam C-scope: Previously at [facility]. Date unknown BMD: Routine age 67 Right bundle-branch block 07/22/20222022 Obstructive sleep apnea syndrome 03/21/2022 02/24/2023 Overview (02/24/2023): ?? Has CPAP Chronic low back pain 03/12/2022 02/24/2023 Overview (02/24/2023): ?? Hydrocodone t.i.d as needed. ?? 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 Pain of knee region 03/12/2022 [...] Exam: [facility] [place] Lipid panel: 03/2022 WNL ASCVD: LDL < [...] Visit [facility] [address] [place] [phone] Danny Mahoney MD [address] [facility] [address] [place] [address] Health Maintenance Due Date Last [...] Years) Discontinued 04/22/2023, 03/27/2017, 12/31/2007 Insurance Medicaid [place] Medicare [facility] ([id number]) [facility] ([id number]) [place] [id number] Care Teams Print Support Specialist Relationship Specialty Start Date End Date [facility] [address] [place] [address] PCP - General 11/26/23
--- OUTSIDE RECORDS SUMMARY | 2024-08-11 09:06 | XMS_ITS | Encounter Summary ---
Author Organization [employer] Address [address] [facility] [address] [place] [address] Care Team Providers Care Vice President Research Name Role Phone Beatriz Ford [facility] Primary Care Provider Aj bradford [facility] Primary Care Provider [phone] Reason for Visit * Reason Comments Med Refill Encounter Details Date Type Department Care Team ([facility] st Contact Info) Description 04/03/2022 Refill [facility]INE [address] [place] [address] Name, MD [place] [address] [place] [address] Chronic pain syndrome Social History Tobacco Use [...] on hydrocodone med , please contact .. (Bahraini speaker) documented in this encounter Plan of Treatment Upcoming Encounters Date Type Department Care Team (Late st Contact Info) Description 09/14/2024 9:00 AM EDT Clinical Support [address] [address] Tammie Diaz RN 10/03/2024 9:45 AM EDT Office Visit [address] [address] Kelli Horton FNP [address] [place] [phone] documented as of this encounter Visit Diagnoses Diagnosis Chronic pain syndrome documented in this encounter Additional Health Concerns Assessment Noted Time PHQ-9 Depression Total Score: 21 022 10:03 AM EST documented as of this encounter Care Teams Vice President Research Relationship Specialty Start Date End Date Beatriz Ford FNP PCP - General Family Medicine 02/21/22 05/19/22 Kelli Horton FNP [address] [place] [phone] PCP - General Family Medicine 05/20/22 documented as of this encounter
--- OUTSIDE RECORDS SUMMARY | 2024-08-11 09:06 | XMS_ITS | Clinical Summary ---
Author Organization [employer] Address [address] [facility] 7t [place] [address] Care Team Providers Care Slot Floor Person Name Role Phone Kelli Horton [facility] Primary Care Provider [phone] Allergies Active Allergy Reactions Criticality Noted Date [...] g 5 06/16/19 25 Active HYDROcodone-patricia taminophen ([place]) 5-325 MG tabletIndicatio ns:Chronic low back pain, [...] Hydrocodone t.i.d as needed. ?? Compliant with [facility] agreement Assessment & Plan (05/05/2023 8:15 PM EST): Continue hydrocodone as prescribed. Patient will bring tablets to pharmacy to determine if able to order prior formulation Declines chronic pain group at this time Follow as scheduled with [facility] Chronic pain of right knee 03/12/2022 Overview (07/28/2022): ?? Referred to PT for balance training 06/2022 Type 2 diabetes mellitus, wi thout long-term current use of insulin 10/01/2020 Overview (04/04/2024): Metformin monotherapy CKD stage 3 followed by nephrology Foot Exam: 03/2024 risk 0 Eye Exam: Followed by [facility] in [place] Statin: Yes ASA: No PATRICIA/ARB: Yes [...] Problem Noted Date Diagnosed Date Resolved Date Cort[place] eye disease of right eye 03/05/2023 03/05/2023 [...] Care Team Description 07/19/2024 Refill [facility] [address] [place] [address] Kelli Horton FNP Vulvovaginal dryness; Moderate persistent asthma, unspecified whether complicated 07/13/2024 Telephone [facility] [address] [place] [address] Lynn Dao, RN Results 07/13/2024 Refill [facility] [address] [facility] [address] [place] [address] Kelli Horton FNP Chronic low back pain, unspecified back pain laterality, unspecified whether sciatica present 06/28/2024 Telephone [facility] [address] [place] [address] Kelli Horton FNP stable lab letter 06/24/2024 Orders Only [facility] [address] [place] [address] Kelli Horton FNP 06/16/2024 Travel 06/15/2024 Refill [facility] [address] [place] [address] Sol, Kelli, BENCH PRESS OPERATOR Pain in right shoulder; Moderate persistent asthma, unspecified whether complicated 06/08/2024 Refill [facility] [address] [place] [address] [facility] 05/24/2024 Telephone [facility] [address] [place] [address] [facility] 05/23/2024 Telephone [facility] [address] [place], [place] [phone] [facility] 05/21/2024 Orders Only GENERIC EXTERNAL DATA DEPARTMENT Provider, Generic External Data 05/19/2024 Orders Only [facility] [address] [place], [place] [phone] [facility] Obstructive sleep apnea syndrome (Primary Dx) from Last 3 Months Immunizations Immunization Administration Dates Next Due Hep A, Adult [...] your housing situation today? I have teodoro jazlyn 07/22/[address] you li [...] 9:00 AM EDT Clinical Support [facility] [address] [place] [address] Tammie Diaz, RN 10/03/2024 9:45 AM EDT Office Visit [facility] [address] [place] [address] Kelli Horton FNP [address] [place] [address] Health Maintenance Due Date Last Done Comments CT Colonography 1957 FIT DNA/Cologuard 1957 FIT 1957 FOBT 1955 Sigmoidoscopy 1957 Alcohol/Substance Use Screening 1969 Mammogram 06/15/2024 06/16/2023, 0304/2022, 04/15/2021, Additional history exists COVID-19 Vaccine ( season) 2024 12/25/2023, 07/12/2021, 01/31/2021, Additional history exists SDOH Screening 07/21/2024 07/22/2023 [...] Aged 60 years or older Completed 05/04/2023 Influenza Vaccine Completed 12/25/2023, , 12/16/2021, Additional history exists HIB Vaccines Aged Out No longer eligi ble based on patient's age to complete this topic HPV Vaccines Aged Out No longer eligi ble based on patient's age to complete this topic IPV Vaccines Aged Out No longer eligi ble based on patient's age to complete this topic Meningococcal B Vaccine Aged Out No l onger eligible based on patient's age to complete [...] SCREENING Routine 05/19/2024 4 :13 PM EST POCT GLYCATED HEMOGLOBIN, TOTAL Routine [...] Maintenance Results * Referral to Pulmonology (07/07/2024) [facility] OUTPATIENT REFERRAL ORDERABLE S Final Result * Lipid Panel, Standard (06/24/2024 10:01 AM EDT) Triglycerides 93 <150 mg/dL [facility] Comment:Desirable Triglyceri de: less than 150 mg/dLBorderline High Triglyceride 150-199 mg/dLHigh Triglyceride: 200-499 mg/dLVery High Triglyceride: greater than or equal to 5OO mg/dL Cholesterol 131 <200 mg/dL [facility] Comment:Desirable Cholestero l: less than 200 mg/dLBorderline High Cholesterol: 200-239 mg/dLHigh Cholesterol: greater than 239 mg/dL LDL Cholesterol Calculated 64 <100 mg/dL [facility] Comment:Desirable LDL: less than 100 mg/dLNear Optimal/Above Optimal LDL: 110- 129 mg/dLBorderline High LDL: 130-159 mg/dLHigh LDL: 160-189 mg/dLVery High LDL: greater than or equal to 190 mg/dL HDL Cholesterol 49 >40 mg/dL [facility] Comment:Desirable HDL: great er than 40 mg/dL Note: This HDL assay may give artificially low results in patients with liver disease. 06/24/2024 10:0 1 AM EDT 06/24/2024 11:18 AM EDT [facility] BENCH PRESS OPERATOR LAB BLOOD ORDERABLES Final Re sult [facility] [address] [place] [phone] * CTA Chest PE Protocal (05/22/2024 12:18 AM EST) Anatomical Region Laterality Modality Body, Chest Computed Tomogra phy 05/22/2024 12:1 8 AM EST Narrative 05/22/2024 12:21 AM EST ? [facility] ?[address] ?[place] [address] ? CT Scan Report ? Signed ? Patient: Keenan,Ludivina Cox ?MR#: [id number] ? : 1955 ?Acct:[id number] ? Age/Sex: 68 / F ?ADM Date: 03/01/25 ? Loc: HO.ED ? Attending Dr: ? Ordering Physician: Khushbu Vaca MD ?? Date of Service: 05/21/24 ?? Procedure(s): CT angio chest PE protocol ?? Accession Number(s): [id number] ? cc: Khushbu Vaca MD; [facility] BENCH PRESS OPERATOR ? Report Number: ?? [id number]: Total DLP = ??313.00 mGy-cm ? CLINICAL [...] 05/22/24 0020 ? DD/ 0018 ? TD/TT: 05/22/248 ? Cob Sawyer: ? Procedure Note Shekhar Salazar - 05/22/[address] [address] [address] Scan Report Signed Patient: Ludivina Hussein [facility]#: [id number] : 8Acct:[id number] Age/Sex: 68 / FADM Date: 05/21/24 Loc: HO.ED Attending Dr: Ordering Physician: Khushbu Vaca MD Date of Service: 05/21/24 Procedure(s): CT angio chest PE protocol Accession Number(s): [id number] cc: Khushbu Vaca MD; [facility] Report Number: [id number]: Total DLP = 313.00 mGy-cm CLINICAL HISTORY: [...] 05/22/24 0020 DD/ 0018 TD/TT: 05/22/24 0018 Cob Sawyer: [facility] External Provider IMG CT PROCEDURES Final Result * High Sensitivity Troponin I (05/21/2024 10:48 PM EST) Only the most recent of2 resultswithin the time period is included. TROPONIN I HIGH SENSITIVITY <2.7 <3.5 - 17.0 ng/L [facility] Comment:The Rosas high sens itivity Troponin-I results should beused in conjunction with other diagnostic information suchas ECG, clinical observations and information, and patientsymptoms to aid in the diagnosis of [place]. 05/21/2024 10:4 8 PM EST 05/21/2024 10:54 PM EST Generic External Data Provider LAB BLOOD ORDERAB LES Final Result [facility] [address] [place] [phone] * XR Chest 2 Views (05/21/2024 9:21 PM EST) Anatomical Region Laterality Modality Chest Radiographic Lia ging 05/21/2024 9:21 PM EST Narrative 05/21/2024 9:23 PM EST ? [facility] ?[address] ?[place] [address] ?XRay Report ? Signed ? Patient: Keenan,Ludivina N ?MR#: [id number] ? : 1955 ?Acct:[id number] ? Age/Sex: 68 / F ?ADM Date: 05/21/24 ? Loc: HO.ED ? Attending Dr: ? Ordering Physician: Vane Garcia ?? Date of Service: 05/21/24 ?? Procedure(s): XR chest 2V ?? Accession Number(s): [id number] ? cc: Vane Garcia; Kelli Horton [facility] ? CLINICAL HISTORY: cp ? 2 view [...] ? DD/ 20 ? TD/TT: 05/21/242120 ? Cob Sawyer: ? Procedure Note Shekhar Salazar - 05/21/[address] [address] XRay Report Signed Patient: Ludivina Hussein NMR#: [id number] : 8Acct:[id number] Age/Sex: 68 / FADM Date: 05/21/24 Loc: HO.ED Attending Dr: Ordering Physician: Vane Garcia Date of Service: 05/21/24 Procedure(s): XR chest 2V Accession Number(s): [id number] cc: Vane Garcia; [facility] CLINICAL HISTORY: cp 2 view chest x-ray. [...] in OV> 05/21/242121 DD/ 20 TD/TT: 05/21/242120 Cob Sawyer: [facility] External Provider IMG XR PROCEDURES Edited Result - Final * D Dimer High Sensitivity (05/21/2024 8:17 PM EST) D Dimer High Sensitivity 246 NG/ML [facility] Comment:D-DIMER HS REFERENCE RANGENote: Our [...] Provider LAB BLOOD ORDERAB LES Final Result [facility] [address] [place] [phone] * SARS-CoV-2 RNA, Influenza A/B, and RSV RNA, Ql NAAT (05/21/2024 8:17 PM EST) Pathologist [facility] Influenza A PCR NEGATIVE Negative [facility] Influenza B PCR NEGATIVE Negative [facility] Resp Syncy Virus RNA Qual PCR NEGATIVE Negative [facility] SARS COV2 PCR NEGATIVE Negative [...] use by authorized laboratories.Testing performed on the [employer] GeneXpert utilizingreal-time RT-PCR.All SARS CoV2 and positive influenza A/B results arereported to [facility]. 05/21/2024 8:17 PM EST 05/21/2024 8:20 PM EST us Generic External Data Provider LAB MICROBIOLOGY - GENERAL ORDERABLES Final Result [facility] [address] [place] [phone] * (ABNORMAL) CBC auto differential (05/21/2024 8:17 PM EST) Pathologist [facility] White Blood Count 8.2 4.8 - 10.8 X10*3/uL [facility] Red Blood Count 3.94(L) 4.20 - 5.50 X10*6/uL [facility] Hemoglobin 12.2 12.0 - 16.0 g/dl [facility] Hematocrit 34.9(L) 37.0 - 47.0 % [facility] Mean Corpuscular Volume 88.6 80.0 - 98.0 fL [facility] Mean Corpuscular Hemoglobin 31.0 27.0 - 33.0 pg [facility] Mean Corpuscular HGB Conc 35.0 31.0 - 35.0 g/dl [facility] Red Cell Distribution Width 12.0 11.0 - 16.0 % [facility] Platelet Count 276 160 - 400 X10*3/uL [facility] Mean Platelet Volume 8.8(L) 9.4 - 12.3 fL [facility] Neutrophils Percent Auto 57.0 45 - 73 % [facility] Imm Gran Pct Auto 0.2 0.0 - 0.4 % [facility] Lymphocytes Percent Auto 30.1 20 - 40 % [facility] Monocytes Percent Auto 6.7 2 - 11 % [facility] Eosinophils Percent Auto 5.6(H) 0 - 4 % [facility] Basophils Percent Auto 0.4 0 - 2 % [facility] NRBC Pct Auto 0.0 0.0 - 0.2 /100WBC [facility] Neutrophils Absolute Auto 4.7 2.0 - 8.3 x10*3/uL [facility] Imm Gran Abs Auto 0.02 0.00 - 0.03 X10*3/uL [facility] Lymphocytes Absolute Auto 2.5 1.2 - 4.9 X10*3/uL [facility] Monocytes Absolute Auto 0.6 0.1 - 1.2 X10*3/uL [facility] Eosinophils Absolute Auto 0.5(H) 0.0 - 0.4 X10*3/uL [facility] Basophils Absolute Auto 0.0 0.0 - 0.2 X10*3/uL [facility] NRBC Abs Auto 0.000 0.0 - 0.012 X10*3/uL [facility] 05/21/2024 8:17 PM EST 05/21/2024 8:20 PM EST us Generic External Data Provider LAB BLOOD ORDERAB LES Final Result [facility] [address] [place], [place] [phone] * (ABNORMAL) Prothrombin Time-INR (05/21/2024 8:17 PM EST) [facility] Prothrombin Time 10.7(L) 10.9 - 12.4 SEC [facility] INTERNATIONAL NORM RATIO 0.9 0.9 - 1.1 [facility] Comment:INTERNATIONAL NORMAL IZED RATIO (INR) [...] ORDERAB LES Final Result Performing Organization Address [facility] de Phone Number [facility] [address] [place] [phone] * Magnesium (05/21/2024 8:17 PM EST) [facility] Magnesium 1.9 1.6 - 2.6 mg/dL [facility] 05/21/2024 8:17 PM EST 05/21/2024 8:20 PM EST [employer] External Data Provider LAB BLOOD ORDERAB LES Final Result Performing Organization Address [facility] de Phone Number [facility] [address] [place] [phone] * (ABNORMAL) Hepatic Function Panel (05/21/2024 8:17 PM EST) [facility] Bilirubin, Total 0.3 0.0 - 1.0 mg/dL [facility] Bilirubin, Direct 0.1 0.0 - 0.5 mg/dL [facility] Aspartate Amino Transferase 31 5 - 31 U/L [facility] Alanine Aminotransferase 40(H) 0 - 31 U/L [facility] Total Protein 7.2 6.5 - 8.0 g/dL [facility] Albumin Level 3.6 3.5 - 5.0 g/dL [facility] Alkaline Phosphatase 109 39 - 117 U/L [facility] 05/21/2024 8:17 PM EST 05/21/2024 8:20 PM EST us Generic External Data Provider LAB BLOOD ORDERAB LES Final Result [facility] [address] [place], [place] [phone] * (ABNORMAL) Basic Metabolic Panel (05/21/2024 8:17 PM EST) Sodium 140 135 - 145 mmol/L [facility] Potassium 4.2 3.3 - 5.1 mmol/L [facility] Chloride 105 96 - 108 mmol/L [facility] Carbon Dioxide 26 22 - 29 mmol/L [facility] Anion Gap 13 12 - 20 [facility] Urea Nitrogen (BUN) 16 9 - 16 mg/dL [facility] Creatinine, Serum 0.92 0.5 - 1.4 mg/dL [facility] Creatinine Clr Calc Pharmacy 56.1 [facility] Comment:Provided height and weight: 147.32 cm,86.4 kg.eGFR (calculated from the MDRD study equation) and eCrCl(calculated from the Cockcroft-Gault equation) are based ondifferent parameters and may not yield comparable results.If eCrCl result is absurd, please check patient'sheight/weight. Estimated Glomerular Filt Rate >60 [facility] Comment:Chronic Kidney Disea se: Estimated GFR < 60 mL/min/1.19f5Ychtyz Kidney Disease: Estimated GFR < 15 mL/min/1.73m2 Glucose 147(H) 60 - 115 mg/dL [facility] Calcium 9.1 8.4 - 10.2 mg/dL [facility] 05/21/2024 8:17 PM EST 05/21/2024 8:20 PM EST us Generic External Data Provider LAB BLOOD ORDERAB LES Final Result [facility] [address] [facility] [place] [phone] * CT Lung Screening Low dose (05/19/2024 4:13 PM EST) Anatomical Region Laterality Modality Lung Computed Tomogra phy 05/19/2024 4:13 PM EST Narrative 05/19/2024 4:16 PM EST ? [facility] ?[address] ?[place] [address] ? CT Scan Report ? Signed ? Patient: Ludivina Hussein ?MR#: [id number] ? : 1955 ?Acct:[id number] ? Age/Sex: 68 / F ?ADM Date: 05/19/24 ? Loc: HO.CT ? Attending Dr: Chaparro Jeffers MD ? Ordering Physician: Chaparro Jeffers MD ?? Date of Service: 05/19/24 ?? Procedure(s): CT lung screening ?? Accession Number(s): [id number] ? cc: Chaparro Jeffers MD; Kelli Horton BENCH PRESS OPERATOR ? Report Number: ?? [id number]: Total DLP = ?? 62.00 mGy-cm ? [...] 05/19/24 1615 ? DD/ 1613 ? TD/TT: 05/19/243 ? Cob Sawyer: ? Procedure Note Shekhar Salazar - 05/19/[address] [place] [address] [address] Scan Report Signed Patient: Ludivina Hussein NMR#: [id number] : 8Acct:[id number] Age/Sex: 68 / FADM Date: 05/19/24 Loc: HO.CT Attending Dr: Chaparro Jeffers MD Ordering Physician: Chaparro Jeffers MD Date of Service: 05/19/24 Procedure(s): CT lung screening Accession Number(s): [id number] cc: Chaparro Jeffers MD; Kelli Horton [facility] Report Number: [id number]: Total DLP = 62.00 mGy-cm CLINICAL HISTORY: [...] 05/19/24 1615 DD/ 1613 TD/TT: 05/19/24 1613 Cob Sawyer: [facility] External Provider IMG CT PROCEDURES Final Result * (ABNORMAL) POCT HGB A1C (04/04/2024 11:24 AM EST) Hemoglobin A1C 6.2(A) 4.0 - 6.0 % QC Media Lot # [id number] Lot# Expiration Date ,577 Blood 04/04/2024 11:2 4 AM EST [facility] BENCH PRESS OPERATOR POINT OF CARE TEST ENTER/EDIT ORDERABLES Final Result * BI Mammogram Screening Tomosynthesis Bilateral (06/16/2023 10:15 AM EDT) Anatomical Region Laterality Modality Breast Bilateral Mammography 06/16/2023 10:1 5 AM EDT Narrative 07/02/2023 6:24 AM EDT ? [facility] ? [address] ?[place] [address] ? Mammography Report ? Signed ? Patient: Ludivina Hussein ?MR#: [id number] ? : 1955 ?Acct:[id number] ? Age/Sex: 67 / F ?ADM Date: 06/16/23 ? Loc: HO.MAMMO ? Attending Dr: Kelli Upperco BENCH PRESS OPERATOR ? Ordering Physician: Sol,Kelli BENCH PRESS OPERATOR ?Results: 1Nega ?? tive ? Date of Service: 06/16/23 ?Follow Up: 1 Year From Orig ?? inal Mammogram ? Procedure(s): MM tomosynthesis screening BI ?? Accession Number(s): [id number] ? cc: Sol,Kelli BENCH PRESS OPERATOR ? EXAMINATION: ?? MM SCREENING DIGITAL [...] 0620 ? DD/ 1015 ? TD/TT: ? Cob Sawyer: ? Procedure Note Marie, Image - 07/02/2023 [facility] [address] [place] [address] Mammography Report Signed Patient: Ludivina Hussein#: [id number] : 8Acct:[id number] Age/Sex: 67 / FADM Date: 06/16/23 Loc: PANKA[place] Attending Dr: Kelli Horton BENCH PRESS OPERATOR Ordering Physician: Kelli Horton FNPResults: 1Nega tive Date of Service: 06/16/23Follow Up: 1 Year From Orig inal Mammogram Procedure(s): MM tomosynthesis screening BI Accession Number(s): [id number] cc: Kelli Horton BENCH PRESS OPERATOR EXAMINATION: MM SCREENING DIGITAL BREAST TOMOSYNTHESIS, [...] in OV> 07/02/23 0620 DD/ 1015 TD/TT: Cob Sawyer: [facility] BENCH PRESS OPERATOR IMG BI PROCEDURES Final Resul t * Hm Colonoscopy (05/03/2018) Pathologist [facility] Colonoscopy Normal Normal Narrative Madeleine Valle - 05/03/2018 Repeat in 10 years Historical Provider HEALTH MAINTENANCE Final Result * HPV mRNA E6/E7 (03/03/2016 11:45 AM EST) Pathologist [facility] HPV mRNA E6/E7 Not Detected NOT DETECTED [facility] Comment: This test was performed using the APTIMA(R) HPV Assay ([employer] This assay detects E6/E7 viral messenger RNA (mRNA) from 14 high-risk HPV types (16,18,31,33,35,39,45,51, 52,56,58,59,66,68). For additional information please refer to: http://education.Chorus.Exari Systems/faq/ILG049g8 (This link is being provided for informational/ educational purposes only.) Test Performed by [employer], [employer] [facility], [address] [place] [address] Leonardo Cano M.D., Ph.D., Director of Laboratories , [facility] [id number] Please note: ??Effective 12/03/2015, HPV testing will be performed using [employer]'s APTIMA test which targets mRNA. Detecting mRNA instead of DNA, as in older methods, offers significant improvements in specificity. 03/03/2016 11:4 5 AM EST us Nandini Biswas NP HISTORICAL/NON ORDERABLE LABS Fi nal Result [facility] [address] from Last 3 Months or Most Recently Relevant to Health Maintenance Insurance [facility] Care Teams Slot Floor Person Relationship Specialty Start Date End Date Kelli Horton FNP [address] [place] [phone] PCP - General Family Medicine 05/20/22
--- OUTSIDE RECORDS SUMMARY | 2024-08-11 09:06 | XMS_ITS | Encounter Summary ---
Author Organization [employer] Address [address] [facility] [address] [place] [address] Care Team Providers Care Wood Strip Block Floor Installer Name Role Phone Beatriz Ford [facility] Primary Care Provider Aj bradford KelliherKelli ren [facility] Primary Care Provider [phone] Encounter Details Date Type Department Care Team ([facility] st Contact Info) Description 03/20/2022 Telephone [facility] [address] [place] [address] Beatriz Ford FNP Social History Tobacco Use [...] AM EST documented as of this encounter Functional Status * Over the past 2 weeks, how often have you been bothered by any of the following problems? Question Answer Date of Assessment Author Patient Health Questionnaire-2 Score 6 02/22 10:03 AM EST Mildred Jacobsen * If you checked off any problems on this questionnaire so far, Question Answer Date of Assessment Author How difficult have these pro blems made it for you to do your work, take care of things at home, or get along with other people? Very difficult 03/21/2022 10:03 AM Kimberlee Verma di * Over the past 2 weeks, how often have you been bothered by any of the following problems? Question Answer Date of Assessment Author Little interest or pleasure in doing things Nearly every day 03/21/2022 10:03 AM Mildred Verma Feeling down, depressed, or hopeless Nearly every day 03/21/2022 10:03 AM Mildred Verma Trouble falling or staying asleep, or sleeping too much More than half the days 03/21/2022 10:03 AM Mildred Verma Feeling tired or having little energy Nearly every day 03/21/2022 10:03 AM Mildred Vrema Poor appetite or overeating Several days 03/21/2022 10 :03 AM Mildred Verma Feeling bad about yourself - or that you are a failure or have let yourself or your family down Nearly every day 03/21/2022 10:03 AM Mildred Verma Trouble concentrating on things, such as reading the newspaper or watching television Nearly every day 03/21/2022 10:03 AM Mildred Veram Moving or speaking so slowly that other people could have noticed? Or the opposite - being so fidgety or restless that you have been moving around a lot more than usual. Nearly every day 03/21/2022 10:03 AM Mildred Verma Thoughts that you would be better off or hurting yourself in some way Not at all 03/21/2022 10:03 AM Mildred Verma Patient Health Questionnaire-9 Score 21 03/21/2022 10:03 AM Mildred Verma documented as of this encounter Plan of Treatment Upcoming Encounters Date Type Department Care Team (Late st Contact Info) Description 09/14/2024 9:00 AM EDT Clinical Support [facility] [address] [place] [address] Tammie Diaz RN 10/03/2024 9:45 AM EDT Office Visit [facility] [address] [place] [address] Kelli Horton FNP [address] [place] [address] documented as of this encounter Visit Diagnoses Not on filedocumented in this encounter Care Teams Wood Strip Block Floor Installer Relationship Specialty Start Date End Date Beatriz Ford FNP PCP - General Family Medicine 02/21/22 05/19/22 KelliherKelli FNP [address] [place] [phone] PCP - General Family Medicine 05/20/22 documented as of this encounter
--- OUTSIDE RECORDS SUMMARY | 2024-08-11 09:06 | XMS_ITS | Encounter Summary ---
Author Organization [employer] Address [address] [facility] 7t [place] [address] Care Team Providers Care Clinical Care Manager Name Role Phone [facility] Primary Care Provider [phone] Reason for Visit * Reason Comments Med Refill Encounter Details Date Type Department Care Team (Late st Contact Info) Description 12/17/2023 Refill [facility] [address] [place] [address] [facility] [address] [place] [address] Chronic low back pain, unspecified back pain [...] Description 09/14/2024 9:00 AM EDT Clinical Support [address] [address] Tammie Diaz RN 10/03/2024 9:45 AM EDT Office Visit [address] [address] Kelli Horton FNP [address] [place] [address] documented as of this encounter Visit Diagnoses Diagnosis Chronic low back pain, unspecified back pain laterality, unspecified whether sciatica present documented in this encounter Additional Health Concerns Assessment Noted Time PHQ-9 Depression Total Score: 0 07/22/19 24 9:10 AM EDT documented as of this encounter Care Teams Clinical Care Manager Relationship Specialty Start Date End Date Kelli Horton FNP [address] [place] [address] PCP - General Family Medicine 05/20/22 documented as of this encounter
--- OUTSIDE RECORDS SUMMARY | 2024-08-11 09:06 | XMS_ITS | Encounter Summary ---
Author Organization [employer] Address [address] [place] [address] 7t [place] [address] Care Team Providers Care Personal Financial Counselor Name Role Phone [facility] Primary Care Provider Encounter Details Date Type Department Care Team (Late st Contact Info) Description 09/30/2022 Abstract [facility] MEDICINE [address] [place] [phone] [address] Social History Tobacco Use Types Packs/Day Years [...] Description 09/14/2024 9:00 AM EDT Clinical Support [address] [phone] Tammie Diaz RN 10/03/2024 9:45 AM EDT Office Visit [facility] [address] [place] [phone] [phone] documented as of this encounter Procedures Procedure [...] documented as of this encounter Care Teams Personal Financial Counselor Relationship Specialty Start Date End Date Kelli Horton FNP [address] [place] [address] PCP - General Family Medicine 05/20/22 documented as of this encounter
--- OUTSIDE RECORDS SUMMARY | 2024-08-11 09:06 | XMS_ITS | Encounter Summary ---
Author Organization [employer] Address 75 [facility] 7t [place] [address] Care Team Providers Care Beef Cattle Grazier Name Role Phone Kelli Horton [facility] Primary Care Provider [phone] Reason for Visit * Reason Onset Date Comments Nurse Triage 02/11/2023 Encounter Details Date Type Department Care Team ([facility] st Contact Info) Description 02/11/2023 Telephone [facility]INE 230 [place] [address] [facility] 230 [place] [address] Nurse Triage Social History Tobacco Use Types [...] past 12 months, has t he electric, [employer], oil or water [facility] threatened to shut off services in your [...] the only possible outcome for this symptom Kazakh Speaker documented in this encounter Plan of Treatment Upcoming Encounters Date Type Department Care Team (Late st Contact Info) Description 09/14/2024 9:00 AM EDT Clinical Support [address] [address] Tammie Diaz RN 10/03/2024 9:45 AM EDT Office Visit [address] [address] Kelli Horton FNP [address] [place] [address] documented as of this encounter Visit Diagnoses Not on filedocumented in this encounter Additional Health Concerns Assessment Noted Time PHQ-9 Depression Total Score: 21 03/21/ 022 10:03 AM EST documented as of this encounter Care Teams Beef Cattle Grazier Relationship Specialty Start Date End Date Kelli Horton FNP [address] [place] [address] PCP - General Family Medicine 05/20/22 documented as of this encounter
--- OUTSIDE RECORDS SUMMARY | 2024-08-11 09:06 | XMS_ITS | Encounter Summary ---
Author Organization [facility] Address [address] [place] [address] Phone Care Team Providers Care Hothouse Worker Name Role Phone [facility] Primary Care Provider [phone] Encounter Details Date Type Department Care Team (Late Contact Info) Description 12/23/2021 Documentation Only [facility] [place], [address] [place] [address] Shaun Morales PA Social History [...] [facility] [address] [place] [address] Danny Mahoney MD [address] [phone] documented as of this encounter Visit Diagnoses Not on filedocumented in this encounter Care Teams Hothouse Worker Relationship Specialty Start Date End Date Deb[place], Kelli 230 [place], [place] [phone] PCP - General 11/26/23 documented as of this encounter
--- OUTSIDE RECORDS SUMMARY | 2024-08-11 09:06 | XMS_ITS | Encounter Summary ---
Author Organization [employer] Address [address] [place] [address] 7t [place] [address] Care Team Providers Care Link Wire Fabric Machine Operator Name Role Phone [facility] Primary Care Provider [phone] Reason for Visit * Reason Comments Med Refill Encounter Details Date Type Department Care Team (Late st Contact Info) Description 12/16/2022 Refill [facility] MEDICINE [address] [place] [phone] Name, MD Haroon [address] [place] [address] Chronic low back pain, unspecified back pain [...] Description 09/14/2024 9:00 AM EDT Clinical Support [facility] [address] [place] [address] [phone] Tammie Diaz RN 10/03/2024 9:45 AM EDT Office Visit [facility] [address] [place] [address] Kelli Horton SPLITTER MACHINE [address] [place] [address] documented as of this encounter Visit Diagnoses Diagnosis Chronic low back pain, unspecified back pain laterality, unspecified whether sciatica present documented in this encounter Additional Health Concerns Assessment Noted Time PHQ-9 Depression Total Score: 21 03/21/ 022 10:03 AM EST documented as of this encounter Care Teams Link Wire Fabric Machine Operator Relationship Specialty Start Date End Date Kelli Horton FNP 230 [place] [address] PCP - General Family Medicine 05/20/22 documented as of this encounter
--- OUTSIDE RECORDS SUMMARY | 2024-08-11 09:06 | XMS_ITS | Encounter Summary ---
Author Organization [employer] Address [address] [facility] 7t [place] [address] Care Team Providers Care Workforce Management Consultant Name Role Phone [place] [facility] Primary Care Provider [phone] Reason for Visit * Reason Onset Date Comments Med Refill 03/15/2024 Encounter Details Date Type Department Care Team ([facility] st Contact Info) Description 03/15/2024 Telephone [facility] MEDICINE [address] [place] [address] [facility] 230 [place] [address] Med Refill Social History Tobacco Use Types [...] medication refill. Medications needing refill : HYDROcodone-acetaminophen ([place]) 5-325 MG tablet To be sent to: [facility] - [place], [place] - [address] [place] [address] documented in this encounter Plan of Treatment Upcoming Encounters Date Type Department Care Team ([facility] st Contact Info) Description 09/14/2024 9:00 AM EDT Clinical Support [facility] MED[facility]INE [address] [place] [address] Tammie Diaz RN 10/03/2024 9:45 AM EDT Office Visit [facility] 230 [place] [address] Kelli Horton FNP [address] [place] [address] documented as of this encounter Visit Diagnoses Not on filedocumented in this encounter Additional Health Concerns Assessment Noted Time PHQ-9 Depression Total Score: 0 12/25/19 10:25 AM EDT documented as of this encounter Care Teams Workforce Management Consultant Relationship Specialty Start Date End Date Kelli Horton FNP 230 [place] [address] PCP - General Family Medicine 05/20/22 documented as of this encounter
--- OUTSIDE RECORDS SUMMARY | 2024-08-11 09:06 | XMS_ITS | Encounter Summary ---
Author Organization [facility] Address [address] [place] [address] Phone Care Team Providers Care Feed Blender Name Role Phone [facility] Primary Care Provider [phone] Encounter Details Date Type Department Care Team (Late Contact Info) Description 12/23/2021 Documentation Only [facility] [place], [address] [place] [address] Shaun Morales PA Social History [...] [facility] [address] [place] [address] Danny Mahoney MD [address] [phone] documented as of this encounter Visit Diagnoses Not on filedocumented in this encounter Care Teams Feed Blender Relationship Specialty Start Date End Date [place], Kelli 230 [place], [place] [phone] PCP - General 11/26/23 documented as of this encounter
--- OUTSIDE RECORDS SUMMARY | 2024-08-11 09:06 | XMS_ITS | Encounter Summary ---
Author Organization [employer] Address [address] [facility] 7t [place] [address] Care Team Providers Care Telegraph Repeater Technician Name Role Phone [facility] Primary Care Provider [phone] Reason for Visit * Reason Onset Date Comments Med Refill 01/28/2024 Encounter Details Date Type Department Care Team ([facility] st Contact Info) Description 01/28/2024 Telephone [facility] MEDICINE 230 [place] [address] [facility] 230 [place] [address] Med Refill Social History Tobacco Use Types [...] Description 09/14/2024 9:00 AM EDT Clinical Support [facility] [address] [place] [address] Tammie Diaz RN 10/03/2024 9:45 AM EDT Office Visit [facility] [address] [place] [address] Kelli Horton FNP [address] [place] [address] documented as of this encounter Visit Diagnoses Not on filedocumented in this encounter Additional Health Concerns Assessment Noted Time PHQ-9 Depression Total Score: 0 12/25/19 24 10:25 AM EDT documented as of this encounter Care Teams Telegraph Repeater Technician Relationship Specialty Start Date End Date Kelli Horton FNP [address] [place] [address] PCP - General Family Medicine 05/20/22 documented as of this encounter
--- OUTSIDE RECORDS SUMMARY | 2024-08-11 09:06 | XMS_ITS | Encounter Summary ---
Author Organization [facility] Address [address] [place] [address] Phone Care Team Providers Care Pharmacy Manager Name Role Phone [facility] Primary Care Provider [phone] Encounter Details Date Type Department Care Team (Late Contact Info) Description 12/20/2021 Documentation Only [facility] [place], [address] [place] [address] Shaun Morales PA Social History [...] [facility] [address] [place] [address] Danny Mahoney MD [address] [phone] documented as of this encounter Visit Diagnoses Not on filedocumented in this encounter Care Teams Pharmacy Manager Relationship Specialty Start Date End Date [place], Kelli 230 [place], [place] [phone] PCP - General 11/26/23 documented as of this encounter
--- OUTSIDE RECORDS SUMMARY | 2024-08-11 09:06 | XMS_ITS | Encounter Summary ---
Author Organization [employer] Address [address] [facility] 7t [place] [address] Care Team Providers Care Qualitative Field Project Manager Name Role Phone Kelli Horton [employer] Primary Care Provider [phone] Encounter Details Date Type Department Care Team ([facility] st Contact Info) Description 02/06/2023 Abstract [facility] MEDICINE 230 [place] [address] Madeleine Valle Social History Tobacco Use Types [...] 09/14/2024 9:00 AM EDT Clinical Support [facility] MEDICINE [address] [place] [address] Tammie Diaz RN 10/03/2024 9:45 AM EDT Office Visit [address] [address] Kelli Horton FNP [address] [place] [address] documented as of this encounter Procedures Procedure Name Priority Date/Time Associated Diagnosis Comments COLONOSCOPY Routine 05/03/2018 documented in this encounter Results * Colonoscopy (05/03/2018) Colonoscopy Normal Normal Narrative Madeleine Valle - 05/03/2018 Repeat in 10 years Historical Provider HEALTH MAINTENANCE Final Result documented in this encounter Visit Diagnoses Not on filedocumented in this encounter Additional Health Concerns Assessment Noted Time PHQ-9 Depression Total Score: 21 12/2 022 10:03 AM EST documented as of this encounter Care Teams Qualitative Field Project Manager Relationship Specialty Start Date End Date Kelli Horton FNP [address] [place] [address] PCP - General Family Medicine 05/20/22 documented as of this encounter
--- OUTSIDE RECORDS SUMMARY | 2024-08-11 09:06 | XMS_ITS | Encounter Summary ---
Author Organization [employer] Address 75 [facility] 7t [place] [address] Care Team Providers Care Fruit Or Nut Farmer Name Role Phone [facility] Primary Care Provider [phone] Reason for Visit * Reason Onset Date Comments Med Refill 02/11/2023 Encounter Details Date Type Department Care Team ([facility] st Contact Info) Description 02/11/2023 Telephone [facility] 230 [place] [address] [facility] 230 [place] [address] Med Refill Social History Tobacco Use Types [...] from pt requesting med refill on; HYDROcodone-acetaminophen ([place]) 5-325 MG tablet documented in this encounter Plan of Treatment Upcoming Encounters Date Type Department Care Team (Late st Contact Info) Description 09/14/2024 9:00 AM EDT Clinical Support [facility] MED[facility] [address] [place] [address] Tammie Diaz RN 10/03/2024 9:45 AM EDT Office Visit [facility] [address] [place] [address] Kelli Horton FNP 230 [place] [address] documented as of this encounter Visit Diagnoses Not on filedocumented in this encounter Additional Health Concerns Assessment Noted Time PHQ-9 Depression Total Score: 21 03/21/ 022 10:03 AM EST documented as of this encounter Care Teams Fruit Or Nut Farmer Relationship Specialty Start Date End Date Kelli Horton FNP [address] [place] [address] PCP - General Family Medicine 05/20/22 documented as of this encounter
--- OUTSIDE RECORDS SUMMARY | 2024-08-11 09:06 | XMS_ITS | Encounter Summary ---
Author Organization [facility] Address [address] [place] [address] Phone Care Team Providers Care Nursing Associate Name Role Phone [facility] Primary Care Provider [phone] Encounter Details Date Type Department Care Team (Late Contact Info) Description 12/10/2021 Documentation Only [facility] [place], [address] [place] [address] Shaun Morales PA Social History [...] [facility] [address] [place] [address] Danny Mahoney MD [address] [phone] documented as of this encounter Visit Diagnoses Not on filedocumented in this encounter Care Teams Nursing Associate Relationship Specialty Start Date End Date [place], Kelli 230 [place], [place] [phone] PCP - General 11/26/23 documented as of this encounter
== END 2024-08-11 08:56 | disposition home or self-care (01) ==
LOC: HO.MAMMO 08:55
PROVIDERS: Visit Provider Registered Nurse
DX: Z12.31 Encounter for screening mammogram for malignant neoplasm of breast (principal)
CPT/HCPCS: 77063; 77067

== ENCOUNTER → 2024-08-11 09:30 | Outpatient (BNV) | payer OTHER, SELFPAY | PROVIDERS: Visit Provider Internal Medicine | DX: Z12.31 Encounter for screening mammogram for malignant neoplasm of breast (principal) | CPT/HCPCS: 77063; 77067 ==

== ENCOUNTER 2024-09-07 12:55 | Outpatient (REF) | payer OTHER, SELFPAY ==
--- NOTE | 2024-09-07 12:58 | EMG_ITS ---
Chief complaint: Right hand numbness Reviewed nerve conduction tables, done by Dr. Capps 2023, did not show median or ulnar neuropathy. Reason for referral: Evaluate for Carpal Tunnel Syndrome Referred by: Ronen SHELDON Procedure done: Right upper extremity NCS/EMG Precautions and/or limitations: None The limb temperature was monitored continuously and remained between 32-36 degrees C during the performance of the NCS. Nerve Conduction Studies Anti Sensory Summary Table ?Stim Site NR Onset (ms) Norm Onset (ms) Peak (ms) Norm Peak (ms) O-P Amp (?V) Norm O-P Amp Site1 Site2 Delta-0 (ms) Dist (cm) Serafin (m/s) Norm Serafin (m/s) Right Median Anti Sensory (2nd Digit) Wrist ? 2.5 3.2 <3.6 29.8 >10 Wrist 2nd Digit 2.5 14.0 56 Right Ulnar Anti Sensory (5th Digit) Wrist ? 2.4 3.0 <3.7 31.8 >15.0 Wrist 5th Digit 2.4 14.0 58 Motor Summary Table ?Stim Site NR Onset (ms) Norm Onset (ms) O-P Amp (mV) Norm O-P Amp iAmp (mV) Amp (1st) (%) Site1 Site2 Delta-0 (ms) Dist (cm) Serafin (m/s) Norm Serafin (m/s) Right Median Motor (Abd Poll Brev) Wrist ? 3.1 <3.9 6.4 >4.5 8.0 100.0 Elbow Wrist 3.4 18.0 53 >45 Elbow ? 6.5 5.7 7.0 89.1 Right Ulnar Motor (Abd Dig Minimi) Wrist ? 2.4 <3.0 8.7 >5 11.6 100.0 B Elbow Wrist 2.7 16.5 61 >45 B Elbow ? 5.1 7.6 10.1 87.4 A Elbow B Elbow 1.1 10.0 91 >45 A Elbow ? 6.2 8.3 11.2 95.4 Comparison Summary Table ?Stim Site NR Peak (ms) Norm Peak (ms) P-T Amp (?V) Site1 Site2 Delta-P (ms) Norm Delta (ms) Right Median/Radial Dig I Comparison (Digit 1 - 10cm) Median ? 2.4 <2.9 43.9 Median Radial 0.3 Radial ? 2.1 <2.8 34.0 EMG ?Side Muscle Nerve Root Ins Act Fibs Psw Amp Dur Poly Recrt Int Pat Comment Right 1stDorInt Ulnar C8-T1 Nml Nml Nml Nml Nml 0 Nml Complete Right FlexCarRad Median C6-7 Nml Nml Nml Nml Nml 0 Nml Complete Right Biceps Musculocut C5-6 Nml Nml Nml Nml Nml 0 Nml Complete Right Triceps Radial C6-7-8 Nml Nml Nml Nml Nml 0 Nml Complete Right Deltoid Axillary C5-6 Nml Nml Nml Nml Nml 0 Nml Complete FINDINGS: All motor and sensory nerves tested showed normal latencies, amplitudes and conduction velocities. Concentric needle EMG was performed in selected muscles of the right upper extremity. Study did not reveal signs of electric abnormalities as shown in the table above. IMPRESSION: 1. This is a normal study. 2. There is no electrodiagnostic evidence for median neuropathy, ulnar neuropathy, brachial plexopathy, or cervical radiculopathy. Thank you for your kind referral. Araseli Hernandez MD, JÚNIOR Board Certified, [place] Board [employer] and Rehabilitation (ABPMR) Board Certified, [place] Board of Electrodiagnostic Medicine (ABEM) CODIN [id number] MTDD
--- OUTSIDE RECORDS SUMMARY | 2024-09-07 14:49 | XMS_ITS | Encounter Summary ---
Author Organization [employer] Address [address] [place] [address] 7t [place] [address] Care Team Providers Care Talent Acquisition Assistant Name Role Phone [facility] Primary Care Provider [phone] Reason for Visit * Reason Comments Med Refill Encounter Details Date Type Department Care Team (Late st Contact Info) Description 12/16/2022 Refill [facility] MEDICINE [address] [place] [address] Name, MD Haroon [address] [place] [address] Chronic low back pain, unspecified back pain [...] 9:00 AM EDT Clinical Support [facility] MEDICINE [address] [place] [address] [phone] Tammie Diaz RN 10/03/2024 9:15 AM EDT Office Visit [facility] MEDICINE [address] [place] [phone] Kelli Horton DRILL PRESS SET UP OPERATOR [address] [place] [address] documented as of this encounter Visit Diagnoses Diagnosis Chronic low back pain, unspecified back pain laterality, unspecified whether sciatica present documented in this encounter Additional Health Concerns Assessment Noted Time PHQ-9 Depression Total Score: 21 03/21/ 022 10:03 AM EST documented as of this encounter Care Teams Talent Acquisition Assistant Relationship Specialty Start Date End Date Kelli Horton FNP [address] [place] [address] PCP - General Family Medicine 05/20/22 documented as of this encounter
== END 2024-09-07 12:56 | disposition home or self-care (01) ==
LOC: HO.NEURO 12:55
PROVIDERS: PCP Registered Nurse
DX: R20.0 Anesthesia of skin (principal); R20.2 Paresthesia of skin
CPT/HCPCS: 95886; 95909

== ENCOUNTER → 2024-09-07 12:58 | Outpatient (BNV) | payer OTHER, SELFPAY | PROVIDERS: PCP Registered Nurse; Visit Provider Physical Medicine & Rehabilitation | DX: R20.0 Anesthesia of skin (principal); R20.2 Paresthesia of skin | CPT/HCPCS: 95886; 95909 ==

== ENCOUNTER 2024-10-25 08:18 | Outpatient (AMB) | payer OTHER, SELFPAY ==
--- NOTE | 2024-10-25 08:20 | MHC.OFFVIS ---
Vital Signs 10/25/24 08:21 Height 4 ft 11 in Weight 126 lb BMI 25.4 Intake Visit Reasons: OV-Rt hand EMG review Intake Note: Ludivina is a 69 year old female who presents today for a EMG review. Today patient reports she is doing well with no further concerns at this time. IMPRESSION: 1. This is a normal study. 2. There is no electrodiagnostic evidence for median neuropathy, ulnar neuropathy, brachial plexopathy, or cervical radiculopathy. Deputy Administrator Required: Yes Deputy Administrator Language: Software Integration Developer Name: Vidya RMA/LM Allergies No Known Allergies (No Known Allergies*) Allergy (Verified 10/25/24 08:23) HPI HPI OV-Rt hand EMG review: Details: Ludivina is a 69 year old female who presents today for a EMG review. Today patient reports she is doing well with no further concerns at this time. IMPRESSION: 1. This is a normal study. 2. There is no electrodiagnostic evidence for median neuropathy, ulnar neuropathy, brachial plexopathy, or cervical radiculopathy. [facility] Medical History Primary osteoarthritis of left knee Osteoarthritis of hands, bilateral History of COVID-19 RBBB Hx of hepatitis C Asthma Anxiety Elevated cholesterol COVID-19 vaccine series completed JUSTIN (obstructive sleep apnea) Chronic kidney disease Depression Other intervertebral disc displacement, lumbar region Spondylosis of lumbar spine Lumbar facet arthropathy Bilateral primary osteoarthritis of knee Renal stones Essential hypertension Type 2 diabetes mellitus with complication, without long-term current use of insulin Vitamin D deficiency Other chronic pain History of renal calculi Surgical History History of total right knee replacement (TKR) Hx of dilation and curettage History of laryngoscopy Hx of umbilical hernia repair Hx of arthroscopy of left knee Hx of lithotripsy History of esophagogastroduodenoscopy (EGD) S/P repair of ventral hernia H/O abdominal hysterectomy H/O tubal ligation History of colonoscopy Family History Father Diabetes mellitus HTN (hypertension) Mother No problems noted. 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 Neuro: Normal sensation of the tips of all digits of the bilateral hand at this time Vascular: Cap refill brisk Pain: No pain with range of motion of bilateral hands ROM: Patient was able to make a closed fist and extend all digits of bilateral hands fully and without difficulty Skin: No lacerations or abrasions. General: No ecchymosis, erythema, or evidence of infection. Psych: Appears grossly normal Affect normal Attitude cooperative Assessment & Plan Assessment & Plan (1) Left carpal tunnel syndrome: Code(s): G56.02 - Carpal tunnel syndrome, left upper limb Category: Medical (2) Numbness and tingling of right hand: Code(s): R20.0 - Anesthesia of skin; R20.2 - Paresthesia of skin Category: Medical Plan 1. Numbness and tingling of right hand Symptoms intermittent, daily, worse at night Negative EMG Patient is educated that with negative EMG, there is no acute intervention indicated at this time If patient continues to experience numbness and tingling in the coming months, she can call us in approximately 6 months' time for repeat evaluation Patient is amenable to this plan Follow-up as needed Coding Level of Care Code Est Pt Level 3 (50976) Diagnoses Left carpal tunnel syndrome G56.02 Numbness and tingling of right hand R20.0; R20.2
[2024-10-25 08:21] VITALS: BMI 25.4
--- OUTSIDE RECORDS SUMMARY | 2024-10-25 08:27 | XMS_ITS | Clinical Summary ---
Author Organization [facility] Address [address] [place] [address] Phone Care Team Providers Care Dining Room Manager Name Role Phone Kelli Horton Primary Care Provider [phone] Allergies Active Allergy Reactions Criticality Noted Date [...] Do not crush, chew, or split. Active amLODIPine (NORVASC) 2.5 MG tablet TAKE 1 TABLET BY MOUTH EVERY EVENING 30 tablet 11 4 Active lisinopril-hydr oCHLOROthiazide (PRINZIDE,ZESTO RETIC) 10-12.5 MG per tablet Take 1 tablet by mouth 1 (one) time each day 90 tablet 3 5 11/29/19 25 Active Active Problems Problem Noted Date Diagnosed Date Obese class II 02/24/2023 02/24/2023 Patient encounter status 07/28/2022 023 Overview (02/24/2023): Mammo: Ordered today Pap: S/P total hysterectomy for benign reason. Pt does not know if cervix remains. Will schedule follow up pelvic exam C-scope: [place] [facility] Date unknown BMD: Routine age 67 Right bundle-branch block 07/22/20222022 Obstructive sleep apnea syndrome 03/21/2022 02/24/2023 Overview (02/24/2023): Has CPAP Chronic low back pain 03/12/2022 02/24/2023 Overview (02/24/2023): Hydrocodone t.i.d as needed. Compliant with ELEMENTARY EDUCATOR agreement Pain of knee region 03/12/2022 02/24/2023 Overview (02/24/2023): Referred to PT for balance training 06/2022 [...] 2 diabetes mellitus 10/01/2020 023 Overview (02/24/2023): Metformin monotherapy CKD stage 3 followed by nephrology BMP: 03/2022 WNL Microalbumin: 03/2022 WNL Foot Exam: 07/2022 risk 0 Eye Exam: [facility] [place] Lipid panel: 03/2022 WNL ASCVD: LDL < [...] Results Component Value Date HGBA1C 5.9 03/21/2022 Well controlled Continue current regimen Per patient request will refer to podiatry for ongoing diabetic footcare Benign essential hypertension 07/14/2019 Renal stone 07/14/2019 Stage 3a chronic kidney disease 07/12/2019 Depressive disorder 02/14/2015 02/24/2023 Overview (02/24/2023): Established with psychiatry and therapy. Rx'd trazodone and clonazepam Moderate persistent asthma 02/14/201502/24 Overview (02/24/2023): Followed by pulmonology Singulair, spiriva, advair, albuterol Last Assessment & Plan: Loratadine refill provided today Follow up as scheduled with pulmonology Contact HC if sx worsen. ED precautions reviewed Varicose veins of bilateral lower limbs 02/15/20 15 02/24/2023 Resolved Problems Problem Noted Date Diagnosed Date Resolved Date H/O: hypothyroidism 07/12/2019 07/12/19 20 Encounters Date Type Department Care Team Description 08/30/2024 Refill [facility], [address] [address] Danny Mahoney MD 08/29/2024 Refill [facility] [address] [address] Jean Coles from Last 3 Months Immunizations Immunization Administration Dates Next Due Hepatitis [...] Care Team (Late st Contact Info) Description 12/01/2024 2:15 PM EDT Office Visit [facility] [address] [place] [phone] Danny Mahoney MD [address] [facility] [address] [place] [phone] Health Maintenance Due Date Last Done Comments Breast Cancer Screening 1957 Colorectal Cancer Screening: Annual FOBT 2006 Colorectal Cancer Screening: Colonoscopy 2006 Colorectal Cancer Screening: Sigmoidoscopy 2006 Hepatitis B Vaccine (1 of 3 - Risk 3-dose series) 2017 06/18/2000, 11/30/1999, 10/25/1999 Diabetes: Ophthalmology Exam 09/27/2020 Diabetes: Pedal Pulse Checked 09/27/2020 Diabetes: Sensory Foot Exam 09/27/2020 Diabetes: Visual Foot Exam 09/27/2020 Influenza Vaccine (#1) 2024 4, 04/22/2023, 12/16/2021, Additional history exists Diabetes: Hemoglobin A1C 01/18/2025 025, 04/04/2024, 07/22/2023, Additional history exists Pneumococcal Vaccine: 50+ Years Completed 04/22/2023, 03/27/2017, 12/31/2007 Pneumococcal Vaccine: Peds ( 0 to 5 Years) and At-Risk Patients (6 to 49 Years) Discontinued 04/22/2023, 03/27/2017, 12/31/2007 Insurance Medicaid [place] Medicare [facility] ([id number]) [facility] ([id number]) [place] [id number] Care Teams Dining Room Manager Relationship Specialty Start Date End Date [facility] [address] [place] [address] PCP - General 11/26/23
--- OUTSIDE RECORDS SUMMARY | 2024-10-25 08:27 | XMS_ITS | Encounter Summary ---
Author Organization [employer] Address [address] [facility] 7t [place] [address] Care Team Providers Care Terminal Press Operator Name Role Phone Kelli Horton [facility] Primary Care Provider [phone] Reason for Visit * Reason Comments Med Refill Encounter Details Date Type Department Care Team (Late st Contact Info) Description 12/16/2022 Refill [facility] [address] [place] [address] [phone] Name, MD Haroon [address] [place] [address] [phone] Chronic low back pain, unspecified back pain [...] Care Team (Late st Contact Info) Description 12/26/2024 9:00 AM EDT Clinical Support [facility] [address] [place] [phone] Tammie Diaz RN documented as of this encounter Visit Diagnoses Diagnosis Chronic low back pain, unspecified back pain laterality, unspecified whether sciatica present documented in this encounter Additional Health Concerns Assessment Noted Time PHQ-9 Depression Total Score: 21 022 10:03 AM EST documented as of this encounter Care Teams Terminal Press Operator Relationship Specialty Start Date End Date Kelli Horton FNP [address] [place] [address] PCP - General Family Medicine 05/20/22 documented as of this encounter
== END 2024-10-25 08:40 | disposition home or self-care (01) ==
LOC: HO.HOS 08:19
PROVIDERS: PCP Registered Nurse
DX: G56.02 Carpal tunnel syndrome, left upper limb (principal); R20.0 Anesthesia of skin; R20.2 Paresthesia of skin
CPT/HCPCS: 99213

== ENCOUNTER → 2024-10-25 08:18 | Outpatient (BNVA) | payer OTHER, SELFPAY | PROVIDERS: PCP Registered Nurse | DX: G56.02 Carpal tunnel syndrome, left upper limb (principal); R20.0 Anesthesia of skin; R20.2 Paresthesia of skin | CPT/HCPCS: 99212 ==

== ENCOUNTER 2024-12-01 09:06 | Outpatient (AMB) | payer OTHER, SELFPAY ==
--- OUTSIDE RECORDS SUMMARY | 2024-12-01 10:25 | XMS_ITS | Encounter Summary ---
Author Organization [employer] Address [address] [place] [address] 7t [place] [address] Care Team Providers Care Kiln Head House Operator Name Role Phone [place] Primary Care Provider [phone] Reason for Visit * Reason Comments Med Refill Encounter Details Date Type Department Care Team (Late st Contact Info) Description 12/16/2022 Refill [facility] [address] [place] [phone] Name, MD Haroon [address] [place] [phone] Chronic low back pain, unspecified back pain [...] Description 12/26/2024 9:00 AM EDT Clinical Support [facility] [address] [place] [address] [phone] Tammie Diaz RN 01/18/2025 10:00 AM EDT Office Visit [facility] [address] [place] [address] [phone] Kelli Horton SAUSAGE CUTTER [address] [place] [address] documented as of this encounter Visit Diagnoses Diagnosis Chronic low back pain, unspecified back pain laterality, unspecified whether sciatica present documented in this encounter Additional Health Concerns Assessment Noted Time PHQ-9 Depression Total Score: 21 03/21/ 022 10:03 AM EST documented as of this encounter Care Teams Kiln Head House Operator Relationship Specialty Start Date End Date Kelli Horton FNP [address] [place] [address] PCP - General Family Medicine 05/20/22 documented as of this encounter
--- OUTSIDE RECORDS SUMMARY | 2024-12-01 10:25 | XMS_ITS | Encounter Summary ---
Author Organization [employer] Address [address] [facility] 7t [place] [address] Care Team Providers Care Wire Drawing Setter Name Role Phone Kelli Horton SSN/SSBN WEAPONS EQUIPMENT OPERATOR Primary Care Provider [phone] Encounter Details Date Type Department Care Team ([facility] st Contact Info) Description 02/06/2023 Abstract [facility] [address] [place] [address] Madeleine Valle Social History Tobacco Use Types [...] Description 12/26/2024 9:00 AM EDT Clinical Support [facility] [address] [place] [address] Tammie Diaz, RN 01/18/2025 10:00 AM EDT Office Visit [address] [address] Kelli Horton FNP [address] [place] [address] documented as of this encounter Procedures Procedure [...] documented as of this encounter Care Teams Wire Drawing Setter Relationship Specialty Start Date End Date Kelli Horton FNP [address] [place] [address] PCP - General Family Medicine 05/20/22 documented as of this encounter
--- OUTSIDE RECORDS SUMMARY | 2024-12-01 10:25 | XMS_ITS | Encounter Summary ---
Author Organization [email or web address] Address [address] [facility] 7t [place] [address] Care Team Providers Care Deburrer Machine Name Role Phone [facility] Primary Care Provider [phone] Reason for Visit * Reason Onset Date Comments Med Refill 02/11/2023 Encounter Details Date Type Department Care Team ([facility] st Contact Info) Description 02/11/2023 Telephone [facility] [address] [place] [address] [facility] [address] [place] [address] Med Refill Social History Tobacco Use Types [...] from pt requesting med refill on; HYDROcodone-acetaminophen ([place]) 5-325 MG tablet documented in this encounter Plan of Treatment Upcoming Encounters Date Type Department Care Team (Late st Contact Info) Description 12/26/2024 9:00 AM EDT Clinical Support [facility] [address] [place] [address] Tammie Diaz RN 01/18/2025 10:00 AM EDT Office Visit [facility] [address] [place] [phone] Kelli Horton FNP [address] [place] [address] documented as of this encounter Visit Diagnoses Not on filedocumented in this encounter Additional Health Concerns Assessment Noted Time PHQ-9 Depression Total Score: 21 022 10:03 AM EST documented as of this encounter Care Teams Deburrer Machine Relationship Specialty Start Date End Date Kelli Horton FNP [address] [place] [address] PCP - General Family Medicine 05/20/22 documented as of this encounter
--- OUTSIDE RECORDS SUMMARY | 2024-12-01 10:25 | XMS_ITS | Encounter Summary ---
Author Organization [employer] Address [address] [facility] 7t [place] [address] Care Team Providers Care Platform Stapler Name Role Phone Kelli Horton [facility] Primary Care Provider [phone] Reason for Visit * Reason Onset Date Comments Nurse Triage 02/11/2023 Encounter Details Date Type Department Care Team ([facility] st Contact Info) Description 02/11/2023 Telephone [facility] [address] [place] [address] [facility] 230 [place] [address] Nurse Triage Social History Tobacco Use Types [...] past 12 months, has t he electric, [employer], oil or water [employer] threatened to shut off services in your [...] the only possible outcome for this symptom Nepali Speaker documented in this encounter Plan of Treatment Upcoming Encounters Date Type Department Care Team (Late st Contact Info) Description 12/26/2024 9:00 AM EDT Clinical Support [address] [address] Tammie Diaz RN 01/18/2025 10:00 AM EDT Office Visit [address] [address] Kelli Horton FNP [address] [place] [address] documented as of this encounter Visit Diagnoses Not on filedocumented in this encounter Additional Health Concerns Assessment Noted Time PHQ-9 Depression Total Score: 21 03/21/ 022 10:03 AM EST documented as of this encounter Care Teams Platform Stapler Relationship Specialty Start Date End Date Kelli Horton FNP [address] [place] [address] PCP - General Family Medicine 05/20/22 documented as of this encounter
--- OUTSIDE RECORDS SUMMARY | 2024-12-01 10:26 | XMS_ITS | Encounter Summary ---
Author Organization [employer] Address [address] [facility] 7t [place] [address] Care Team Providers Care Credit Administration Specialist Name Role Phone [place] Primary Care Provider [phone] Reason for Visit * Reason Onset Date Comments Med Refill 01/28/2024 Encounter Details Date Type Department Care Team ([facility] st Contact Info) Description 01/28/2024 Telephone [facility] 230 [place] [address] [place] [facility] 230 [place] [address] Med Refill Social History Tobacco Use Types [...] Description 12/26/2024 9:00 AM EDT Clinical Support [facility] [address] [place] [address] Tammie Diaz RN 01/18/2025 10:00 AM EDT Office Visit [facility] [address] [place] [address] Kelli Horton FNP [address] [place] [address] documented as of this encounter Visit Diagnoses Not on filedocumented in this encounter Additional Health Concerns Assessment Noted Time PHQ-9 Depression Total Score: 0 12/25/19 24 10:25 AM EDT documented as of this encounter Care Teams Credit Administration Specialist Relationship Specialty Start Date End Date Kelli Horton FNP [address] [place] [address] PCP - General Family Medicine 05/20/22 documented as of this encounter
--- OUTSIDE RECORDS SUMMARY | 2024-12-01 10:26 | XMS_ITS | Encounter Summary ---
Author Organization [email or web address] Address [address] [place] [address] 7t [place] [address] Care Team Providers Care Educational Fundraising Director Name Role Phone [facility] Primary Care Provider Encounter Details Date Type Department Care Team (Late st Contact Info) Description 09/30/2022 Abstract [facility] [address] [place] [phone] [address] Social History Tobacco Use Types Packs/Day Years [...] Description 12/26/2024 9:00 AM EDT Clinical Support [address] [phone] Tammie Diaz RN 01/18/2025 10:00 AM EDT Office Visit [facility] [address] [place] [phone] [address] documented as of this encounter Procedures Procedure [...] documented as of this encounter Care Teams Educational Fundraising Director Relationship Specialty Start Date End Date Kelli Horton FNP [address] [place] [address] PCP - General Family Medicine 05/20/22 documented as of this encounter
--- OUTSIDE RECORDS SUMMARY | 2024-12-01 10:26 | XMS_ITS | Encounter Summary ---
Author Organization [employer] Address [address] [facility] 7t [place] [address] Care Team Providers Care Director Ehs Name Role Phone [facility] Primary Care Provider [phone] Reason for Visit * Reason Onset Date Comments Med Refill 03/15/2024 Encounter Details Date Type Department Care Team ([facility] st Contact Info) Description 03/15/2024 Telephone [facility] [address] [place] [address] [facility] 230 [place] [address] Med Refill Social History Tobacco Use Types [...] medication refill. Medications needing refill : HYDROcodone-acetaminophen ([place]) 5-325 MG tablet To be sent to: [facility] - [place], [place] - [address] [place] [address] documented in this encounter Plan of Treatment Upcoming Encounters Date Type Department Care Team ([facility] st Contact Info) Description 12/26/2024 9:00 AM EDT Clinical Support [facility] [address] [place] [address] Tammie Diaz RN 01/18/2025 10:00 AM EDT Office Visit [facility] [address] [place] [address] Kelli Horton FNP 230 [place] [address] documented as of this encounter Visit Diagnoses Not on filedocumented in this encounter Additional Health Concerns Assessment Noted Time PHQ-9 Depression Total Score: 0 12/25/19 10:25 AM EDT documented as of this encounter Care Teams Director Ehs Relationship Specialty Start Date End Date Kelli Horton FNP [address] [place] [address] PCP - General Family Medicine 05/20/22 documented as of this encounter
--- OUTSIDE RECORDS SUMMARY | 2024-12-01 10:26 | XMS_ITS | Encounter Summary ---
Author Organization [facility] Address [address] [place] [address] Phone Care Team Providers Care Coremaking Machine Setter Name Role Phone [facility] Primary Care Provider [phone] Encounter Details Date Type Department Care Team ([facility] Contact Info) Description 12/23/2021 Documentation Only [facility] [address] [place] [address] Shaun Morales PA [address] [place] [address] Social History Tobacco Use Types [...] Department Care Team (Late Contact Info) Description 12/01/2024 2:15 PM EDT Office Visit [facility] [address] [facility] [place] [phone] Danny Mahoney MD [address] [phone] documented as of this encounter Visit Diagnoses Not on filedocumented in this encounter Care Teams Coremaking Machine Setter Relationship Specialty Start Date End Date Sol Kelli [address] [place] [address] PCP - General 11/26/23 documented as of this encounter
--- OUTSIDE RECORDS SUMMARY | 2024-12-01 10:26 | XMS_ITS | Encounter Summary ---
Author Organization [employer] Address [address] [facility] 7 [place] [address] Care Team Providers Care Network Operations Manager Name Role Phone [facility] Primary Care Provider [phone] Reason for Visit * Reason Onset Date Comments Referral 12/11/2022 Encounter Details Date Type Department Care Team (Late Contact Info) Description 12/11/2022 Telephone [facility] [address] [place] [address] [facility] 230 [place] [address] Referral Social History Tobacco Use Types Packs/Day [...] and medication list to be faxed to [phone]. documented in this encounter Plan of Treatment Upcoming Encounters Date Type Department Care Team (Late st Contact Info) Description 12/26/2024 9:00 AM EDT Clinical Support [facility] [address] [place] [address] Tammie Diaz, RN 01/18/2025 10:00 AM EDT Office Visit [facility] [address] [place] [address] Kelli Horton FNP 230 [place] [address] documented as of this encounter Visit Diagnoses Not on filedocumented in this encounter Additional Health Concerns Assessment Noted Time PHQ-9 Depression Total Score: 21 03/21/ 022 10:03 AM EST documented as of this encounter Care Teams Network Operations Manager Relationship Specialty Start Date End Date Kelli Horton FNP [address] [place] [address] PCP - General Family Medicine 05/20/22 documented as of this encounter
--- OUTSIDE RECORDS SUMMARY | 2024-12-01 10:26 | XMS_ITS | Encounter Summary ---
Author Organization [employer] Address [address] [facility] 7t [place] [address] Care Team Providers Care Tobacco Baler Name Role Phone Beatriz Ford [facility] Primary Care Provider Kelli Henning [facility] Primary Care Provider [phone] Encounter Details Date Type Department Care Team ([facility] st Contact Info) Description 03/20/2022 Telephone [facility] [address] [place] [address] Beatriz Ford FNP Social History Tobacco Use [...] every day 03/21/2022 10:03 AM Mildred Verma Poor appetite or overeating Several days 03/21/2022 10 :03 AM Mildred Verma Feeling bad about yourself - or that you are a failure or have let yourself or your family down Nearly every day 03/21/2022 10:03 AM Mildred Verma Trouble concentrating on things, such as reading the newspaper or watching television Nearly every day 03/21/2022 10:03 AM Mildred Verma Moving or speaking so slowly that other [...] Description 12/26/2024 9:00 AM EDT Clinical Support [facility] [address] [place] [address] Tammie Diaz, RN 01/18/2025 10:00 AM EDT Office Visit [facility] [address] [place] [address] eKlli Horton FNP [address] [place] [address] documented as of this encounter Visit Diagnoses Not on filedocumented in this encounter Care Teams Tobacco Baler Relationship Specialty Start Date End Date Beatriz Ford FNP PCP - General Family Medicine 02/21/22 05/19/22 HulenKelli FNP [address] [place] [address] PCP - General Family Medicine 05/20/22 documented as of this encounter
--- OUTSIDE RECORDS SUMMARY | 2024-12-01 10:26 | XMS_ITS | Clinical Summary ---
Author Organization [employer] Address [address] [facility] 7t [place] [address] Care Team Providers Care Shank Cutter Name Role Phone Kelli Horton [facility] Primary Care Provider [phone] Allergies Active Allergy Reactions Criticality Noted Date Comments Morphine Sulfate Er Itching 09/01/2023 Medications * This document contains information received from the source organization and may not represent a complete record from that organization. amLODIPine (Norvasc) 2.5 MG tablet Take 2.5 mg by mouth at bedtime. Active darifenacin (Enablex) 15 MG 24 hr [...] PATIENT RESPONDS. 2 each 2 023 Active vitamin E 180 MG (400 UNIT) capsule TAKE 1 CAPSULE BY MOUTH EVERY MORNING 90 capsule 3 024 Active Trelegy Ellipta 200-62.5-25 MCG/ACT aerosol [...] TWICE DAILY 16 g 5 025 Active estradiol (Estrace) 0.1 MG/GM vaginal creamIndication s:Vulvovaginal dryness INSERT 0.5 MG VAGINALLY EVERY DAY FOR 1 WEEK, THEN DECREASE TO 3 TIMES PER WEEK 42.5 g 2 025 Active loratadine (Claritin) 10 MG tabletIndicatio ns:Moderate persistent asthma, unspecified whether complicated TAKE 1 TABLET BY MOUTH EVERY MORNING 90 tablet 3 025 Active TRUEplus Lancets 33G misc TEST BLOOD SUGAR TWICE DAILY 100 each 6 025 Active glucose blood (FREESTYLE LITE) test stripIndication s:Type 2 diabetes mellitus with stage 3 chronic kidney disease, without long-term current use of insulin, unspecified whether stage 3a or 3b CKD (CMS/HCC) USE DIRECTED TO TEST BLOOD SUGAR TWICE DAILY 100 strip 3 025 Active atorvastatin (Lipitor) 20 MG tablet TAKE 1 TABLET BY MOUTH EVERY EVENING 90 tablet 3 025 Active Tirzepatide (Mounjaro) 2.5 MG/0.5ML solution auto-injectorIn dications:Type 2 diabetes mellitus with stage 3 chronic kidney disease, without long-term current use of insulin, unspecified whether stage 3a or 3b CKD (CMS/HCC) Inject 2.5 mg under the skin 1 (one) time per week. 2 mL 3 025 2025 Active HYDROcodone-patricia taminophen ([place]) 5-325 MG tabletIndicatio ns:Chronic low back pain, unspecified back pain laterality, unspecified whether sciatica present Take 1 tablet by mouth every 12 (twelve) hours if needed for severe pain. 56 tablet 025 Active HYDROcodone-patricia taminophen ([place]) 5-325 MG tabletIndicatio ns:Chronic low back pain, unspecified back pain laterality, unspecified whether sciatica present Take 1 tablet by mouth every 12 (twelve) hours if needed for severe pain. 56 tablet 025 2024 Discontinued(R eorder (will not trigger notification to Pharmacy)) Active Problems Problem Noted Date Diagnosed Date Long-term current use of opiate analgesic 2024 Gait instability 05/05/2023 Acute conjunctivitis of right eye 03/05/2023 Healthcare maintenance 07/28/2022 Overview (05/05/2023): Mammo: 09/2022 Birads 1 Pap: S/P total hysterectomy for benign reason. Pt does not know if cervix remains. Will schedule follow up pelvic exam C-scope: Previously at [facility]. Date unknown. Will request records BMD: Routine age 67 Assessment & Plan (05/05/2023 8:28 PM EST): DEXA scan ordered RBBB 07/22/2022 Obstructive sleep apnea syndrome 03/21/2022 Overview (07/28/2022): Has CPAP Chronic low back pain 03/12/2022 Overview (07/28/2022): Hydrocodone t.i.d as needed. Compliant with [employer] agreement Assessment & Plan (05/05/2023 8:15 PM EST): Continue hydrocodone as prescribed. Patient will bring tablets to pharmacy to determine if able to order prior formulation Declines chronic pain group at this time Follow as scheduled with [employer] Chronic pain of right knee 03/12/2022 Overview (07/28/2022): Referred to PT for balance training 06/2022 Type 2 diabetes mellitus, [facility] long-term current use of insulin 10/01/2020 Overview (04/04/2024): Metformin monotherapy CKD stage 3 followed by nephrology Foot Exam: 03/2024 risk 0 Eye Exam: Followed by [facility] in [place] Statin: Yes ASA: No PATRICIA/ARB: Yes Encouraged [...] Assessment & Plan (03/04/2023 6:43 PM EST): Well controlled Continue current regimen Lab Results Component Value Date HGBA1C 6.1 (A) 02/20/2023 Assessment & Plan (07/28/2022 9:17 AM EDT): Lab Results Component Value Date HGBA1C 5.9 03/21/2022 Well controlled Continue current regimen Per patient request will refer to podiatry for ongoing diabetic footcare Cirrhosis of liver 07/15/2017 Overview (04/04/2024): Followed by DR. Lora at [facility] Hepatic steatosis, hx of chronic HCV Lower urinary tract symptoms 07/09/2017 Moderate persistent asthma 02/14/2015 Overview (07/28/2022): Followed by pulmonology Singulair, spiriva, advair, albuterol Assessment & Plan (07/28/2022 9:18 AM EDT): Loratadine refill provided today Follow up as scheduled with pulmonology Contact HC if sx worsen. ED precautions reviewed Benign essential hypertension 02/14/2015 Overview (05/05/2023): Lisinopril-hydrochlorothiazide 01/01.5mg Amlodipine 2.5mg RBBB on EKG Normal stress [...] Assessment & Plan (07/28/2022 9:19 AM EDT): Well controlled Continue current regimen Depressive disorder 02/14/2015 Overview (07/28/2022): Established with psychiatry and therapy. Rx'd trazodone and clonazepam Varicose veins of both lower extremities 015 Resolved Problems Problem Noted Date Diagnosed Date Resolved Date [place] eye disease of right eye 03/05/2023 03/05/2023 [...] mellitus 02/14/201506/2022 Chronic kidney disease 09/18/201107/22 Encounters * This document contains information received from the source organization and may not represent a complete record from that organization. Date Type Department Care Team Description 11/03/2024 Refill [facility] [address] [place] [address] Kelli Horton FNP Chronic low back pain, unspecified back pain laterality, unspecified whether sciatica present 10/18/2024 9:15 AM EDT Office Visit [facility] [address] [place] [address] Kelli Horton FNP Type 2 diabetes mellitus with stage 3 chronic kidney disease, without long-term current use of insulin, unspecified whether stage 3a or 3b CKD (CMS/HCC) (Primary Dx); Dietary counseling; Exercise counseling 10/18/2024 Travel 10/17/2024 Telephone [facility] [address] [place] [address] Kelli Horton FNP Chart Prep 10/10/2024 Refill [facility] [address] [place] [address] Kelli HorotnPEDROP 10/03/2024 Telephone [facility] [address] [facility] [place] [address] Kelli Horton UPS DRIVER r/s preop 09/30/2024 Telephone [facility] [address] [facility] [place] [address] Kelli Horton UPS DRIVER Chart Prep 09/14/2024 9:00 AM EDT Clinical Support [facility] [address] [facility] [place] [address] Tammie Diaz RN Long-term current use of opiate analgesic (Primary Dx) 09/14/2024 Telephone [facility] [address] [facility] [place] [address] Tammie Diaz RN BPI Scoring 09/14/2024 Travel 09/13/2024 Orders Only [facility] [address] [place] [address] Krupa Martinez MD Chronic low back pain, unspecified back pain laterality, unspecified whether sciatica present 09/13/2024 Refill [facility] [address] [facility] [place] [address] Kelli HortonPEDROP Chronic low back pain, unspecified back pain laterality, unspecified whether sciatica present 08/31/2024 Refill [facility] [address] [place], [place] [phone] Kelli Horton [facility] Type 2 diabetes mellitus with stage 3 chronic kidney disease, without long-term current use of insulin, unspecified whether stage 3a or 3b CKD ([facility]) from Last 3 Months Immunizations Immunization Administration [...] housing situation today? I have teodoro hobson 10/18/[address] you li ve. Do you have problems with any of the following? None of the above 10/18/2024 Food Insecurity Answer Date Recorded Within the past 12 months, y ou worried that your food would run out before you got money to buy more: Never True 10/18/2024 Within the past 12 months,th e food you bought just didn't last and you didn't have enough money to get more: Never True Transportation Answer Date Recorded In the past 12 months, has l ack of transportation kept you from medical appts, meetings, work or from getting things needed for daily living? No 10/18/2024 Utilities Answer Date Recorded In the past 12 months, has t he electric, gas, oil or water company threatened to shut off services in your home? No 10/18/2024 Depression Answer Date Recorded Patient Health Questionnaire-2 Score 0 04/04/2024 Internet Access Answer Date Recorded Internet Access Q1 Yes 10/18/2024 Internet Access Q2 Not on file 10/18/2024 Comments Unknown Sex and Gender Information Value Date Recorded Sex Assigned at Female 01/20/2022 10:15 AM EDT Legal Sex Female 10:15 AM EDT Gender Identity Female 01/20/2022 10:15 AM EDT Sexual Orientation Straight 01/20/2022 10 :15 AM EDT Last Filed Vital Signs Vital Sign Reading Time Taken Comments Blood Pressure 128/72 10/18/2024 9:01 AM EDT Pulse 78 10/18/2024 9:01 AM EDT Temperature 36.3 C (97.3 F) 10/18/2024 9:01 AM EDT Respiratory Rate 20 10/18/2024 9:01 AM EDT Oxygen Saturation 98% 05/13/2024 8:49 AM EST Inhaled Oxygen Concentration - - Weight 88 kg (194 lb) 10/18/2024 9:01 AM EDT Height 147.3 cm (4' 10 ) 10/18/2024 9:01 AM EDT Body Mass Index 40.55 10/18/2024 9:01 AM EDT Plan of Treatment Upcoming Encounters Date Type Department Care Team (Late st Contact Info) Description 12/26/2024 9:00 AM EDT Clinical Support [facility] [address] [place] [address] Tammie Diaz, RN 01/18/2025 10:00 AM EDT Office Visit [facility] [address] [place] [address] VincentKelli FNP [address] [place] [address] Health Maintenance Due Date Last Done Comments CT Colonography 1957 FIT DNA/Cologuard 1955 FIT 1955 FOBT 1955 Sigmoidoscopy 1957 Alcohol/Substance Use Screening 1969 COVID-19 Vaccine ( season) 2024 12/25/2023, 07/12/2021, 01/31/2021, Additional history exists Influenza Vaccine (#1) 2024 , 04/22/2023, 12/16/2021, Additional history exists Eye Exam 03/23/2025 03/23/2023 Depression Screening 04/04/2025 04/04/2024, 04/04/19 25 Diabetes: Foot Exam 04/04/2025 04/04/2024, 04/04/2024, 04/04/2024, Additional history exists Diabetes: Hemoglobin A1C 04/20/2025 025, 04/04/2024, 12/25/2023, Additional history exists Lipid Panel 06/24/2025 06/24/2024, 04/23, 03/25/2022, Additional history exists Mammogram 08/11/2025 08/11/2024, 05/22, 05/22/2022, Additional history exists SDOH Screening 10/18/2025 10/18/2024 Tobacco Screening 10/20/2025 10/20/2024 Colonoscopy 05/03/2028 05/03/2018 Colorectal Cancer Screening 05/03/2028 DTaP/Tdap/Td Vaccines (3 - Td or Tdap) 03/29/2029 03/29/2019, 02/13/2009, 12/10/1999 Hepatitis B Vaccines Completed 06/18/2000, 11/30/1999, 10/25/1999 Hepatitis A Vaccines Completed 10/01/2009, 02/14/20 09 Cervical Cancer Screening Discontinued HPV/Cotest Discontinued 03/03/2016 Zoster Vaccines Completed 05/08/2020, 03/05/2020 Pneumococcal Vaccine: 50+ Years Completed 04/22/2023, 03/27/2017, 12/31/2007 RSV Patients and Patients Aged 60 years or older Completed 05/04/2023 HIB Vaccines Aged Out No longer eligi [...] Diagnosis Comments POCT GLYCATED HEMOGLOBIN, TOTAL Routine 10/18/2024 9:31 AM EDT Type 2 diabetes mellitus with stage 3 chronic kidney disease, without long-term current use of insulin, unspecified whether stage 3a or 3b CKD (CMS/HCC) POCT GLUCOSE Routine 10/18/2024 9:03 AM EDT Type 2 diabetes mellitus with stage 3 chronic kidney disease, without long-term current use of insulin, unspecified whether stage 3a or 3b CKD (CMS/HCC) POCT ANDRE-14 URINE DRUG SCREEN Routine 09/14/2024 8:56 AM EDT Long-term current use of opiate analgesic BI MAMMOGRAM SCREENING TOMOSYNTHESIS BILATERAL Routine 08/11/2024 9:00 AM EDT LIPID PANEL, STANDARD Routine 06/24/2024 10:01 AM EDT HM COLONOSCOPY Routine 05/03/2018 ZZZ HISTORICAL HPV MRNA E6/E7 Routine 03/03/2016 11:45 AM EST from Last 3 Months or Most Recently Relevant to Health Maintenance Results * (ABNORMAL) POCT HGB A1C (10/18/2024 9:31 AM EDT) Hemoglobin A1C 6.0(A) 4.0 - 5.7 % Blood 10/18/2024 9:31 AM EDT [facility] UPS DRIVER POINT OF CARE TEST ENTER/EDIT ORDERABLES Final Result * POCT Glucose (10/18/2024 9:03 AM EDT) Glucose Blood, POC 164 60 - 200 mg/dL QC Media Lot # [id number] Lot# Expiration Date [id number] Blood Capillary blood specimen / Unknown 10/18/2024 9:03 AM EDT [facility] POINT OF CARE TEST ENTER/EDIT ORDERABLES Final Result * POCT ANDRE-14 Urine Drug Screen (09/14/2024 8:56 AM EDT) THC Negative Negative Cocaine Screen, Urine Negative Negative Opiate Screen, Urine Positive Negative Methamphetamine Screen Urine Negative Negative Amphetamine Screen, Urine Negative Negative Benzodiazepines Screen, Urine Negative Negative Barbiturate Screen, Urine Negative Negative Methadone Screen, Urine Negative Negative Buprenophine Screen, Urine Negative Negative TCA, Urine Negative Negative MDMA Urine Negative Negative ng/mL Oxycodone Screen, Urine Negative Negative Phencyclidine (PCP), Urine Negative Negative Propoxyphene, Urine Negative Negative Fentanyl, Urine Negative Negative Urine Urine specimen obtained by clean catch procedure / Unknown 09/14/2024 8:56 AM EDT Narrative Tammie Diaz RN - 09/14/2024 8:56 AM EDT UTOX cup Lot#[id number] Exp. 01/20/26 Internal Pass Control [facility] POINT OF CARE TEST ENTER/EDIT ORDERABLES Final Result * BI Mammogram Screening Tomosynthesis Bilateral (08/11/2024 9:00 AM EDT) Anatomical Region Laterality Modality Breast Bilateral Mammography 08/11/2024 9:00 AM EDT Narrative 08/19/2024 5:38 PM EDT [facility] [address] [place] [address] Mammography Report Signed Patient: Ludivina Hussein MR#: [id number] : 1955 Acct:[id number] Age/Sex: 68 / F ADM Date: 08/11/24 Loc: [facility] Attending Dr: Kelli SHAH Ordering Physician: Kelli Horton Results: 1Nega tive Date of Service: 08/11/24 Follow Up: 1 Year From Orig inal Mammogram Procedure(s): MM tomosynthesis screening BI Accession Number(s): [id number] cc: Kelli Horton UPS DRIVER EXAMINATION: MM SCREENING DIGITAL BREAST TOMOSYNTHESIS, BILATERAL CLINICAL INFORMATION: Screening. Asymptomatic. COMPARISON: Mammography: Comparison is made with available priors TECHNIQUE: Digital breast mammography with tomosynthesis is performed in both the craniocaudal and mediolateral oblique views along with computer-aided detection (CAD). FINDINGS: There are scattered areas of fibroglandular density (ACR BI-RADS breast composition Category b). There are no significant masses, abnormal calcifications, [...] target due date for their next mammogram. Electronically signed by: Lucille Cabrales DO 08/19/2024 05:35 PM EDT RP Dictated By: Lucille Cabrales DO Signed By: <Electronically signed by Lucille Cabrales DO in OV> 08/19/24 1735 DD/ 0900 TD/TT: 08/11/24 0915 College Archivist: Procedure Note Donotuseinterpreter, Image - 08/19/2024 [facility] [address] [place] [address] Mammography Report Signed Patient: Ludivina Hussein [facility]#: [id number] : 8Acct:[id number] Age/Sex: 68 / FADM Date: 08/11/24 Loc: [facility] Attending Dr: Kelli Horton UPS DRIVER Ordering Physician: Kelli Horton FNPResults: 1Nega tive Date of Service: 08/11/24Follow Up: 1 Year From Orig inal Mammogram Procedure(s): MM tomosynthesis screening BI Accession Number(s): [id number] [facility] EXAMINATION: MM SCREENING DIGITAL BREAST TOMOSYNTHESIS, BILATERAL CLINICAL INFORMATION: Screening. Asymptomatic. COMPARISON: Mammography: Comparison is made with available priors TECHNIQUE: Digital breast mammography with tomosynthesis is performed in both the craniocaudal and mediolateral oblique views along with computer-aided detection (CAD). FINDINGS: There are scattered areas of fibroglandular density (ACR BI-RADS breast composition Category b). There are no significant masses, abnormal calcifications, [...] target due date for their next mammogram. Electronically signed by: Lucille Cabrales DO 08/19/2024 05:35 PM EDT Dictated By: Lucille Cabrales DO Signed By: <Electronically signed by Lucille Cabrales DO in OV> 08/19/24 1735 DD/ 0900 TD/TT: 08/11/24 0915 College Archivist: [facility] UPS DRIVER IMG BI PROCEDURES Edited Resu lt - Final * Lipid Panel, Standard (06/24/2024 10:01 AM EDT) Triglycerides 93 <150 mg/dL [facility] Comment:Desirable Triglyceri de: less than 150 mg/dLBorderline High Triglyceride 150-199 mg/dLHigh Triglyceride: 200-499 mg/dLVery High Triglyceride: greater than or equal to 5OO mg/dL Cholesterol 131 <200 mg/dL [facility] Comment:Desirable Cholestero l: less than 200 mg/dLBorderline High Cholesterol: 200-239 mg/dLHigh Cholesterol: greater than 239 mg/dL LDL Cholesterol Calculated 64 <100 mg/dL [facility] Comment:Desirable LDL: less than 100 mg/dLNear Optimal/Above Optimal LDL: 110- 129 mg/dLBorderline High LDL: 130-159 mg/dLHigh LDL: 160-189 mg/dLVery High LDL: greater than or equal to 190 mg/dL HDL Cholesterol 49 >40 mg/dL [facility] Comment:Desirable HDL: great er than 40 mg/dL Note: This HDL assay may give artificially low results in patients with liver disease. 06/24/2024 10:0 1 AM EDT 06/24/2024 11:18 AM EDT [facility] UPS DRIVER LAB BLOOD ORDERABLES Final Re sult [facility] [address] [place] [address] [phone] * Hm Colonoscopy (05/03/2018) Colonoscopy Normal Normal Narrative Madeleine Valle - 05/03/2018 Repeat in 10 years Historical Provider MD HEALTH MAINTENANCE Final Result * HPV mRNA E6/E7 (03/03/2016 11:45 AM EST) HPV mRNA E6/E7 Not Detected NOT DETECTED [facility] Comment: This test was performed using the APTIMA(R) HPV Assay ([employer] This assay detects E6/E7 viral messenger RNA (mRNA) from 14 high-risk HPV types (16,18,31,33,35,39,45,51, 52,56,58,59,66,68). For additional information please refer to: http://education.MutualMind.Cinario/faq/YBQ832h6 (This link is being provided for informational/ educational purposes only.) Test Performed by [employer] [employer] [facility], [address] [place] [id number] Leonardo Cano M.D., Ph.D., Director of Laboratories , [place] [id number] Please note: Effective 12/03/2015, HPV testing will be performed using [employer]'s APTIMA test which targets mRNA. Detecting mRNA instead of DNA, as in older methods, offers significant improvements in specificity. 03/03/2016 11:4 5 AM EST us Nandini Biswas NP HISTORICAL/NON ORDERABLE LABS Fi nal Result [facility] [address] [place] [address], from Last 3 Months or Most Recently Relevant to Health Maintenance Insurance [facility] [employer] Member Subscriber Plan / Payer (Ef fective 2023-Present) Name:Ludivina Hussein Relation to Subscriber:Self Name:Ludivina Hussein Payer ID:Not on file Group ID:[id number] Type:Not on file Address: [address] [employer] ([employer] D-[employer]) [place] [id number] Care Teams Shank Cutter Relationship Specialty Start Date End Date Kelli Horton FNP [address] [place] [address] PCP - General Family Medicine 05/20/22
--- OUTSIDE RECORDS SUMMARY | 2024-12-01 10:26 | XMS_ITS | Encounter Summary ---
Author Organization [facility] Address [address] [place] [address] Phone Care Team Providers Care Mobile Battery Technician Name Role Phone [facility] Primary Care Provider Encounter Details Date Type Department Care Team ([facility] Contact Info) Description 12/23/2021 Documentation Only [facility] [address] [place] [address] Shaun Morales PA [address] [place] [address] Social History Tobacco Use Types [...] [facility] [address] [place] [phone] Danny Mahoney MD [address] [phone] documented as of this encounter Visit Diagnoses Not on filedocumented in this encounter Care Teams Mobile Battery Technician Relationship Specialty Start Date End Date Sol Kelli [address] [place] [address] PCP - General 11/26/23 documented as of this encounter
--- OUTSIDE RECORDS SUMMARY | 2024-12-01 10:26 | XMS_ITS | Encounter Summary ---
Author Organization [facility] Address [address] [place] [address] Phone Care Team Providers Care [employer] Agriculture Teacher Name Role Phone [facility] Primary Care Provider [phone] Encounter Details Date Type Department Care Team ([facility] Contact Info) Description 12/10/2021 Documentation Only [facility] [address] [place] [address] Shaun Morales PA [address] [place] [address] Social History Tobacco Use Types [...] Visit [facility] [address] [place] [phone] Danny Mahoney MD [address] [phone] documented as of this encounter Visit Diagnoses Not on filedocumented in this encounter Care Teams [employer] Teacher Relationship Specialty Start Date End Date Sol [place] [address] [place] [address] PCP - General 11/26/23 documented as of this encounter
--- OUTSIDE RECORDS SUMMARY | 2024-12-01 10:26 | XMS_ITS | Clinical Summary ---
Author Organization [facility] Address [address] [place] [address] Phone Care Team Providers Care Air Conditioning Installer Name Role Phone Kelli Horton Primary Care Provider [phone] Allergies Active Allergy Reactions Criticality Noted Date [...] time each day 90 tablet 3 5 Active Active Problems Problem Noted Date Diagnosed Date Obese class II 02/24/2023 02/24/2023 Patient encounter status 07/28/2022 023 Overview (02/24/2023): Mammo: Ordered today Pap: S/P total hysterectomy for benign reason. Pt does not know if cervix remains. Will schedule follow up pelvic exam C-scope: [place] [facility] Date unknown BMD: Routine age 67 Right bundle-branch block 07/22/20222022 Obstructive sleep apnea syndrome 03/21/2022 02/24/2023 Overview (02/24/2023): Has CPAP Chronic low back pain 03/12/2022 02/24/2023 Overview (02/24/2023): Hydrocodone t.i.d as needed. Compliant with [employer] agreement Pain of knee region 03/12/2022 02/24/2023 [...] Exam: [facility] [place] Lipid panel: 03/2022 WNL ASCVD: LDL < [...] Date Resolved Date H/O: hypothyroidism 07/12/2019 07/12/19 Immunizations Immunization Administration Dates Next Due Hepatitis [...] Visit [facility] [address] [place] [address] Danny Mahoney MD [address] [facility] [address] [place] [address] Health Maintenance Due Date Last [...] Foot Exam 09/27/2020 Influenza Vaccine (#1) 2024 , 04/22/2023, 12/16/2021, Additional history exists Diabetes: Hemoglobin A1C 01/18/2025 025, 04/04/2024, 07/22/2023, Additional history exists Pneumococcal Vaccine: 50+ Years Completed 04/22/2023, 03/27/2017, 12/31/2007 Pneumococcal Vaccine: Peds ( 0 to 5 Years) and At-Risk Patients (6 to 49 Years) Discontinued 04/22/2023, 03/27/2017, 12/31/[address] [place] [address] Medicaid [place] Medicare [facility] ([id number]) [facility] ([id number]) Care Teams Air Conditioning Installer Relationship Specialty Start Date End Date [facility] [address] [place] [id number] PCP - General 11/26/23
--- OUTSIDE RECORDS SUMMARY | 2024-12-01 10:26 | XMS_ITS | Encounter Summary ---
Author Organization [facility] Address [address] [place] [address] Phone Care Team Providers Care Parts Salesman Name Role Phone [facility] Primary Care Provider [phone] Encounter Details Date Type Department Care Team ([facility] Contact Info) Description 12/20/2021 Documentation Only [facility] [address] [place] [address] Shaun Morales PA [address] [place] [address] Social History Tobacco Use Types [...] [facility] [address] [place] [id number] Danny Mahoney MD [address] [id number] documented as of this encounter Visit Diagnoses Not on filedocumented in this encounter Care Teams Parts Salesman Relationship Specialty Start Date End Date [address] [place] [address] [place] [address] PCP - General 11/26/23 documented as of this encounter
--- OUTSIDE RECORDS SUMMARY | 2024-12-01 10:26 | XMS_ITS | Encounter Summary ---
Author Organization [employer] Address [address] [facility] [address] [place] [address] Care Team Providers Care Cap And Stud Machine Operator Name Role Phone [facility] Primary Care Provider [phone] Reason for Visit * Reason Comments Med Refill Encounter Details Date Type Department Care Team (Late st Contact Info) Description 12/17/2023 Refill [facility] [address] [place] [address] [facility] [address] [place] [address] Chronic low back pain, unspecified back pain [...] Description 12/26/2024 9:00 AM EDT Clinical Support [address] [address] Tammie Diaz RN 01/18/2025 10:00 AM EDT Office Visit [address] [address] Kelli Horton FNP [address] [place] [address] documented as of this encounter Visit Diagnoses Diagnosis Chronic low back pain, unspecified back pain laterality, unspecified whether sciatica present documented in this encounter Additional Health Concerns Assessment Noted Time PHQ-9 Depression Total Score: 0 07/22/19 24 9:10 AM EDT documented as of this encounter Care Teams Cap And Stud Machine Operator Relationship Specialty Start Date End Date Kelli Horton FNP [address] [place] [address] PCP - General Family Medicine 05/20/22 documented as of this encounter
--- OUTSIDE RECORDS SUMMARY | 2024-12-01 10:26 | XMS_ITS | Encounter Summary ---
Author Organization [employer] Address [address] [facility] [address] [place] [address] Care Team Providers Care Mosaicist Name Role Phone Beatriz Ford [facility] Primary Care Provider Aj bradford Sol [facility] Primary Care Provider [phone] Reason for Visit * Reason Comments Med Refill Encounter Details Date Type Department Care Team ([facility] st Contact Info) Description 04/03/2022 Refill [facility] [address] [place] [address] Name, MD [place] [address] [place] [address] Chronic pain syndrome Social History Tobacco Use [...] on hydrocodone med , please contact .. (Kenyan speaker) documented in this encounter Plan of Treatment Upcoming Encounters Date Type Department Care Team (Late st Contact Info) Description 12/26/2024 9:00 AM EDT Clinical Support [address] [address] Tammie Diaz RN 01/18/2025 10:00 AM EDT Office Visit [address] [address] Kelli Horton FNP [address] [place] [address] documented as of this encounter Visit Diagnoses Diagnosis Chronic pain syndrome documented in this encounter Additional Health Concerns Assessment Noted Time PHQ-9 Depression Total Score: 21 022 10:03 AM EST documented as of this encounter Care Teams Mosaicist Relationship Specialty Start Date End Date Beatriz Ford FNP PCP - General Family Medicine 02/21/22 05/19/22 Kelli Horton FNP [address] [place] [address] PCP - General Family Medicine 05/20/22 documented as of this encounter
[2024-12-01 10:29] VITALS: BMI 25.4
--- NOTE | 2024-12-01 10:29 | MHC.OFFVIS ---
Vital Signs 12/01/24 10:29 Height 4 ft 11 in Weight 126 lb BMI 25.4 Intake Visit Reasons: OV - Left Knee OA - Discuss TKA Intake Note: Ludivina is a 69 year old female who presents today for a follow up of her Left Knee OA. She was last seen in 2023 where we discussed moving forward with a Left TKA, she no-showed her nurse navigation visit and upon follow up with patient she explained that she was not ready to have surgery yet. Today patient presents to re-discuss surgery Seen with pain management for CRPS, at their last visit they discussed trial of [employer] Spinal Cord Stimulator - this was not booked as patient was unable to have any procedures prior to TKA when last discussed. Hep C Diabetes - On Metformin BMI - 25.4 PFSH - Crack/ Cocaine: positive [phone], negative 2023 Hx of Right TKA 11/2020 Dr. Solorzano Allergies No Known Allergies (No Known Allergies*) Allergy (Verified 12/01/24 10:31) HPI HPI OV - Left Knee OA - Discuss TKA: Details: Ludivina is a 69 year old female who presents today for a follow up of her Left Knee OA. She was last seen in 2023 where we discussed moving forward with a Left TKA, she no-showed her nurse navigation visit and upon follow up with patient she explained that she was not ready to have surgery yet. Today patient presents to re-discuss surgery Seen with pain management for CRPS, at their last visit they discussed trial of [employer] Spinal Cord Stimulator - this was not booked as patient was unable to have any procedures prior to TKA when last discussed. Hep C Diabetes - On Metformin BMI - 25.4 PFSH - Crack/ Cocaine: positive [phone], negative 2023 Hx of Right TKA 11/2020 Dr. Solorzano HPI Comments Details: Ludivina is a 69 year old female who presents today for a follow up of her Left Knee OA. She was last seen in 2023 where we discussed moving forward with a Left TKA, she no-showed her nurse navigation visit and upon follow up with patient she explained that she was not ready to have surgery yet. Today patient presents to re-discuss surgery Seen with pain management for CRPS, at their last visit they discussed trial of [employer] Spinal Cord Stimulator - this was not booked as patient was unable to have any procedures prior to TKA when last discussed. Hep C Diabetes - On Metformin BMI - 25.4 PFSH - Crack/ Cocaine: positive [phone], negative 2023 Hx of Right TKA 11/2020 Dr. Solorzano [facility] Medical History Primary osteoarthritis of left knee Osteoarthritis of hands, bilateral History of COVID-19 RBBB Hx of hepatitis C Asthma Anxiety Elevated cholesterol COVID-19 vaccine series completed JUSTIN (obstructive sleep apnea) Chronic kidney disease Depression Other intervertebral disc displacement, lumbar region Spondylosis of lumbar spine Lumbar facet arthropathy Bilateral primary osteoarthritis of knee Renal stones Essential hypertension Type 2 diabetes mellitus with complication, without long-term current use of insulin Vitamin D deficiency Other chronic pain History of renal calculi Surgical History History of total right knee replacement (TKR) Hx of dilation and curettage History of laryngoscopy Hx of umbilical hernia repair Hx of arthroscopy of left knee Hx of lithotripsy History of esophagogastroduodenoscopy (EGD) S/P repair of ventral hernia H/O abdominal hysterectomy H/O tubal ligation History of colonoscopy Family History Father Diabetes mellitus HTN (hypertension) Mother No problems noted. 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 Her left knee is notable for marked tenderness to palpation medial compartment and positive gait antalgia. She has 5-130 degrees of motion. She is stable to varus and valgus stress. Results Reviewed Results Reviewed: I personally reviewed relevant radiographs. RIght total knee arthroplasty in expected post operative position with no hardware complications or evidence of loosening Left knee with moderate to severe medial compartment OA Assessment & Plan Assessment & Plan (1) Primary osteoarthritis of left knee: Code(s): M17.12 - Unilateral primary osteoarthritis, left knee Category: Medical Plan: This is a 69-year-old woman with severe osteoarthritis of the left knee. She can not walk comfortably without pain. She has limitations in her activities of daily living. She had a successful right knee replacement some years ago and is interested in discussing left knee replacement. I do think she is a good candidate for surgery. She does have a history of diabetes and a remote history of drug use. 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 I have no reason to believe her. She has never done IV drugs. I reviewed with her the radiographic findings which show progressive worsening of her left knee osteoarthritis and I discussed with her options which include injections, pain management and surgery. After a long discussion we both agreed that surgery would be a logical next step. I discussed the risks, benefits and alternatives with her including to, but limited to, the risk of infection, fracture, damage to arteries and nerves, stiffness, need for further surgery as well as medical complications associated with surgery including organ failure, pulmonary emboli, blood clots. I answered all her questions to the best of my abilities. She will meet with our clinical auditor to begin the preoperative clearance process. Coding Level of Care Code Est Pt Level 4 (83365) Diagnoses Primary osteoarthritis of left knee M17.12
== END 2024-12-01 11:39 | disposition home or self-care (01) ==
LOC: HO.HOS 09:06
PROVIDERS: PCP Registered Nurse; Visit Provider Orthopaedic Surgery
DX: M17.12 Unilateral primary osteoarthritis, left knee (principal)
CPT/HCPCS: 99214

== ENCOUNTER → 2024-12-01 09:06 | Outpatient (BNVA) | payer OTHER, SELFPAY | PROVIDERS: PCP Registered Nurse; Visit Provider Orthopaedic Surgery | DX: M17.12 Unilateral primary osteoarthritis, left knee (principal) | CPT/HCPCS: 99212 ==

== ENCOUNTER 2025-01-18 09:14 | Outpatient (AMB) | payer OTHER, SELFPAY ==
[2025-01-18 09:19] VITALS: BP 100/58; PULSE 92; O2SAT 98; BMI 36.4
--- NOTE | 2025-01-18 09:19 | MHC.OFFVIS ---
Vital Signs 01/18/25 09:19 Height 4 ft 11 in Weight 180 lb BMI 36.4 BP 100/58 L Blood Pressure Location Rt brachial Position Sitting Pulse 92 Pulse Source Pulse Oximeter Pulse Oximetry (%) 98 Oxygen Delivery Method Room Air Intake Visit Reasons: Psychological Assistant Required: Yes Psychological Assistant Name: Veronica Mota Nathalia Information Interpreted: non-clinical & clinical Allergies No Known Allergies (No Known Allergies*) Allergy (Verified 01/18/25 09:26) HPI HPI : Details: 69-year-old lady, former greater than 40 pack-year smoker, quit 2021, followed for asthma/COPD overlap and JUSTIN. She has been using Trelegy and albuterol MDI/nebs with good control of her respiratory symptoms. She continues on CPAP, though she recently has been having issues getting her supplies. Patient is planned for knee surgery with Dr. Solorzano. [facility] Medical History Primary osteoarthritis of left knee Osteoarthritis of hands, bilateral History of COVID-19 RBBB Hx of hepatitis C Asthma Anxiety Elevated cholesterol COVID-19 vaccine series completed JUSTIN (obstructive sleep apnea) Chronic kidney disease Depression Other intervertebral disc displacement, lumbar region Spondylosis of lumbar spine Lumbar facet arthropathy Bilateral primary osteoarthritis of knee Renal stones Essential hypertension Type 2 diabetes mellitus with complication, without long-term current use of insulin Vitamin D deficiency Other chronic pain History of renal calculi Surgical History History of total right knee replacement (TKR) Hx of dilation and curettage History of laryngoscopy Hx of umbilical hernia repair Hx of arthroscopy of left knee Hx of lithotripsy History of esophagogastroduodenoscopy (EGD) S/P repair of ventral hernia H/O abdominal hysterectomy H/O tubal ligation History of colonoscopy Family History Father Diabetes mellitus HTN (hypertension) Mother No problems noted. 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 Review of Systems Const Denies daytime sleepiness, Denies excessive sweating, Denies fatigue, Denies fever(s), Denies lethargy, Denies malaise, Denies night sweats, Denies snoring and Denies weight loss Eyes Denies blurry vision and Denies itchy eyes ENT Denies nasal congestion, Denies post nasal drip, Denies sinus pain, Denies sinus pressure and Denies other ( Thrush) Card Denies chest pain, Denies pedal edema, Denies dyspnea, Denies orthopnea and Denies paroxysmal nocturnal dyspnea Resp Denies cough, Denies hemoptysis, Denies excessive phlegm production, Denies dyspnea, Denies snoring and Denies wheezing GI Denies abdominal pain and Denies heartburn Musc Denies myalgias, Denies arthralgias and Denies joint swelling Skin/Breast Denies rash Neuro Denies memory loss and Denies seizure-like activity Psych Denies abnormal sleep pattern, Denies anxiety and Denies memory loss Endo Denies excessive sweating, Denies fatigue and Denies heat intolerance Brandon/Lymph Denies easy bruising Aller/Immun Denies itchy eyes, Denies seasonal rhinorrhea and Denies wheezing Physical Exam Vital Signs: Last Vital Signs Pulse 92 01/18/25 09:19 BP 100/58 L 01/18/25 09:19 Pulse Ox 98 01/18/25 09:19 Oxygen Delivery Method Room Air 01/18/25 09:19 BMI result Body Mass Index 36.4 Const General: no acute distress and alert Nutritional Appearance: obese Orientation/consciousness: Other orientation findings ( oriented) HEENT Head: Yes atraumatic Eyes General: appearance normal, both eyes and all related structures Sclerae: sclerae normal EOM: EOMs intact bilaterally Neck Neck: Yes supple Lymphatic: no lymphadenopathy noted Resp Effort & Inspection: normal respiratory effort and no use of accessory muscles Auscultation: clear to auscultation bilaterally Cardio Rate: regular rate Rhythm: regular rhythm Heart sounds: no gallops, no murmurs and no rubs Skin General skin exam: other ( warm) Extrem General: No clubbing, No cyanosis and No edema Assessment & Plan Assessment & Plan (1) Asthma-COPD overlap syndrome: Code(s): J44.89 - Other specified chronic obstructive pulmonary disease Category: Medical Plan: Well controlled on current regimen of Trelegy and albuterol MDI/nebs. Continue current regimen. (2) JUSTIN (obstructive sleep apnea): Code(s): G47.33 - Obstructive sleep apnea (adult) (pediatric) Category: Medical Plan: Reasonable control on CPAP therapy. Continue CPAP therapy. (3) Personal history of nicotine dependence: Code(s): Z87.891 - Personal history of nicotine dependence Category: Medical Plan: Lung cancer screening CT chest from April of 2024 reviewed does not demonstrate any worrisome pulmonary nodules. Continue with yearly screening, next in April of 2025. (4) Preop pulmonary/respiratory exam: Code(s): Z01.811 - Encounter for preprocedural respiratory examination Category: Medical Plan: At this time patient is at low risk for pulmonary perioperative complications for the proposed knee surgery either under general anesthesia, or monitored anesthesia care. Coding Level of Care Code Est Pt Level 4 (32230) Complex EM visit Add On G2211 Diagnoses Asthma-COPD overlap syndrome J44.89 JUSTIN (obstructive sleep apnea) G47.33 Personal history of nicotine dependence Z87.891 Preop pulmonary/respiratory exam Z01.811
--- OUTSIDE RECORDS SUMMARY | 2025-01-18 10:32 | XMS_ITS | Encounter Summary ---
Author Organization [employer] Address [address] [place] [address] [address] [place] [address] Care Team Providers Care Assembler Tractor Name Role Phone [facility] Primary Care Provider Encounter Details Date Type Department Care Team (Late st Contact Info) Description 09/30/[address] [address] Social History Tobacco Use Types Packs/Day Years [...] Description 02/01/2025 9:30 AM EST Office Visit [phone] [address] 02/23/2025 10:00 AM EST Clinical Support [address] [phone] Tammie Diaz, RN documented as of this [...] documented as of this encounter Care Teams Assembler Tractor Relationship Specialty Start Date End Date Kelli Horton FNP 230 [place] [address] PCP - General Family Medicine 05/20/22 documented as of this encounter
--- OUTSIDE RECORDS SUMMARY | 2025-01-18 10:32 | XMS_ITS | Encounter Summary ---
Author Organization [employer] Address [address] [facility] 7t [place] [address] Care Team Providers Care Health Information Specialist Name Role Phone Beatriz Ford [facility] Primary Care Provider Aj bradford Sol [facility] Primary Care Provider [phone] Reason for Visit * Reason Comments Med Refill Encounter Details Date Type Department Care Team ([facility] st Contact Info) Description 04/03/2022 Refill [facility]INE 230 [place] [address] Name, MD Haroon [address] [place] [address] Chronic pain syndrome Social History Tobacco Use [...] on hydrocodone med , please contact .. (Mozambican speaker) documented in this encounter Plan of Treatment Upcoming Encounters Date Type Department Care Team (Late st Contact Info) Description 02/01/2025 9:30 AM EST Office Visit [address] [address] [place] [address] [address] 02/23/2025 10:00 AM EST Clinical Support [address] [address] Tammie Diaz RN documented as of this encounter Visit Diagnoses Diagnosis Chronic pain syndrome documented in this encounter Additional Health Concerns Assessment Noted Time PHQ-9 Depression Total Score: 21 022 10:03 AM EST documented as of this encounter Care Teams Health Information Specialist Relationship Specialty Start Date End Date Beatriz Ford FNP PCP - General Family Medicine 02/21/22 05/19/22 [place] FNP [address] [place] [address] PCP - General Family Medicine 05/20/22 documented as of this encounter
--- OUTSIDE RECORDS SUMMARY | 2025-01-18 10:32 | XMS_ITS | Encounter Summary ---
Author Organization [employer] Address [address] [facility] 7t [place] [address] Care Team Providers Care Data Integration Analyst Name Role Phone Beatriz Ford [facility] Primary Care Provider Kelli Henning [facility] Primary Care Provider Encounter Details Date Type Department Care Team ([facility] st Contact Info) Description 03/20/2022 Telephone [facility]ICINE [address] [place] [address] Beatriz Ford FNP Social History Tobacco Use [...] Description 02/01/2025 9:30 AM EST Office Visit [facility] MEDICINE [address] [place] [address] [place] FNP [address] [place] [address] 02/23/2025 10:00 AM EST Clinical Support [facility] [address] [place] [address] Tammie Diaz RN documented as of this encounter Visit Diagnoses Not on filedocumented in this encounter Care Teams Data Integration Analyst Relationship Specialty Start Date End Date Beatriz Ford FNP PCP - General Family Medicine 02/21/22 05/19/22 [place] FNP [address] [place] [address] PCP - General Family Medicine 05/20/22 documented as of this encounter
--- OUTSIDE RECORDS SUMMARY | 2025-01-18 10:32 | XMS_ITS | Encounter Summary ---
Author Organization [facility] Address [address] [place] [address] Phone Care Team Providers Care Plant Technician/Control Room Operator Name Role Phone [facility] Primary Care Provider [phone] Encounter Details Date Type Department Care Team ([facility] Contact Info) Description 12/10/2021 Documentation Only [facility] [address] [place] [address] Shaun Morales PA [address] [place] [address] Social History Tobacco Use Types [...] Department Care Team (Late Contact Info) Description 03/13/2025 3:45 PM EST Office Visit [facility] [address] [place] [facility] [phone] Danny Mahoney MD [address] [phone] documented as of this encounter Visit Diagnoses Not on filedocumented in this encounter Care Teams Plant Technician/Control Room Operator Relationship Specialty Start Date End Date Sol Kelli 230 [place] [address] PCP - General 11/26/23 documented as of this encounter
--- OUTSIDE RECORDS SUMMARY | 2025-01-18 10:32 | XMS_ITS | Encounter Summary ---
Author Organization [facility] Address [address] [place] [address] Phone Care Team Providers Care Turret Press Operator Name Role Phone Sol [place] Primary Care Provider [phone] Encounter Details Date Type Department Care Team ([facility] Contact Info) Description 12/23/2021 Documentation Only [facility] [address] [place] [address] Shaun Morales PA [address] [place] [address] Social History Tobacco Use Types [...] Visit [facility] [address] [place] [facility] [place] [phone] Danny Mahoney MD [address] [phone] documented as of this encounter Visit Diagnoses Not on filedocumented in this encounter Care Teams Turret Press Operator Relationship Specialty Start Date End Date Sol Kelli 230 [place] [address] PCP - General 11/26/23 documented as of this encounter
--- OUTSIDE RECORDS SUMMARY | 2025-01-18 10:32 | XMS_ITS | Encounter Summary ---
Author Organization [employer] Address [address] [facility] 7t [place] [address] Care Team Providers Care Slip Maker Name Role Phone [facility] Primary Care Provider [phone] Reason for Visit * Reason Onset Date Comments Med Refill 01/28/2024 Encounter Details Date Type Department Care Team ([facility] st Contact Info) Description 01/28/2024 Telephone [facility]INE 230 [place] [address] [facility] 230 [place] [address] Med Refill Social History Tobacco Use Types [...] Description 02/01/2025 9:30 AM EST Office Visit [address] [address] Kelli Horton FNP [address] [place] [address] 02/23/2025 10:00 AM EST Clinical Support [address] [address] Tammie Diaz, RN documented as of this encounter Visit Diagnoses Not on filedocumented in this encounter Additional Health Concerns Assessment Noted Time PHQ-9 Depression Total Score: 0 12/25/19 24 10:25 AM EDT documented as of this encounter Care Teams Slip Maker Relationship Specialty Start Date End Date Kelli Horton FNP [address] [place] [address] PCP - General Family Medicine 05/20/22 documented as of this encounter
--- OUTSIDE RECORDS SUMMARY | 2025-01-18 10:32 | XMS_ITS | Clinical Summary ---
Author Organization [facility] Address [address] [place] [address] Phone Care Team Providers Care Divorce Lawyer Name Role Phone Kelli Horton Primary Care Provider [phone] Allergies Active Allergy Reactions Criticality Noted Date [...] MG capsule Take 1 capsule by mouth 05/23/19 21 Active acetaminophen (TYLENOL) 500 MG tablet Take by mouth every 6 (six) hours if needed for mild pain Active atorvastatin (LIPITOR) 20 MG tablet Take 20 mg by mouth 1 (one) time each day Active Calcium Carb-Cholecalc iferol (Calcium Carbonate-Marleny min D3) 600-400 MG-UNIT tablet Take by mouth A ctive ursodiol (ACTIGALL) 250 MG tablet Take 250 mg by mouth in the morning and 250 mg in the evening and 250 mg before bedtime. Active celecoxib (CeleBREX) 200 MG capsule Take 200 mg by mouth in the morning and 200 mg in the evening. Active HYDROcodone-ac etaminophen (NORCO) 5-325 MG per tablet Take 1 [...] Do not crush, chew, or split. Active lisinopril-hyd roCHLOROthiazi de (PRINZIDE,ZEST ORETIC) 10-12.5 MG per tablet Take 1 tablet by mouth 1 (one) time each day 90 tablet 3 08/31/19 25 Active amLODIPine (NORVASC) 2.5 MG tablet TAKE 1 TABLET BY MOUTH EVERY EVENING 30 tablet 11 01/12/20 25 Active amLODIPine (NORVASC) 2.5 MG tablet TAKE 1 TABLET BY MOUTH EVERY EVENING 30 tablet 11 01/20/20 24 025 Discontinued Active Problems Problem Noted Date Diagnosed Date Obese class II 02/24/2023 02/24/2023 Patient encounter status 07/28/2022 023 Overview (02/24/2023): Mammo: Ordered today Pap: S/P total hysterectomy for benign reason. Pt does not know if cervix remains. Will schedule follow up pelvic exam C-scope: Previously at [facility]. Date unknown BMD: Routine age 67 Right bundle-branch block 07/22/20222022 Obstructive sleep apnea syndrome 03/21/2022 02/24/2023 Overview (02/24/2023): Has CPAP Chronic low back pain 03/12/2022 02/24/2023 Overview (02/24/2023): Hydrocodone t.i.d as needed. Compliant with LOAN INSPECTOR agreement Pain of knee region 03/12/2022 02/24/2023 [...] Exam: [facility] [place] Lipid panel: 03/2022 WNL ASCVD: LDL < [...] Encounters Date Type Department Care Team Description 01/11/2025 Refill [facility] [address] [place] [phone] Danny Mahoney MD 12/13/2024 Orders Only [facility] [address] [facility] [address] [place] [phone] Jean Coles Chronic kidney disease, stage 2 (mild) (Primary Dx); Renal disorder due to type 2 diabetes mellitus <Diabetic nephropathy> (HCC) from Last 3 Months Immunizations Immunization Administration [...] Care Team (Late st Contact Info) Description 03/13/2025 3:45 PM EST Office Visit [facility] [address] [place] [address] Danny Mahoney MD [address] [facility] [address] [place] [phone] Health Maintenance Due Date Last Done Comments [...] Years) Discontinued 04/22/2023, 03/27/2017, 12/31/2007 Insurance Medicaid [place] Medicare [facility] ([id number]) [facility] ([id number]) Care Teams Divorce Lawyer Relationship Specialty Start Date End Date [facility] [address] [place] [address] PCP - General 11/26/23
--- OUTSIDE RECORDS SUMMARY | 2025-01-18 10:32 | XMS_ITS | Clinical Summary ---
Author Organization [employer] Address [address] [facility] 7t [place] [address] Care Team Providers Care Jack Setter Name Role Phone Kelli Horton [facility] Primary Care Provider [phone] Allergies Active Allergy Reactions Criticality Noted Date [...] BY MOUTH EVERY MORNING 90 tablet 3 Active calcium carbonate 1500 (600 Ca) MG tablet TAKE 1 TABLET BY MOUTH EVERY MORNING 90 tablet 3 025 Active lidocaine-prilo dony (Emla) 2.5-2.5 % creamIndication s:Pain in right shoulder APPLY TOPICALLY TO THE AFFECTED AREA(S) EVERY DAY 30 g 3 025 Active estradiol (Estrace) 0.1 MG/GM vaginal [...] mL 3 025 2025 Active HYDROcodone-patricia taminophen ([place]) 5-325 MG tabletIndicatio ns:Chronic low back pain, [...] PATIENT RESPONDS. 2 each 2 025 Active fluticasone (Flonase) 50 MCG/ACT nasal sprayIndication s:Moderate persistent asthma, unspecified whether complicated INSTILL 1 SPRAY IN EACH NOSTRIL TWICE DAILY 16 g 5 025 Active Narcan 4 MG/0.1ML nasal spray FOR SUSPECTED OPIOID OVERDOSE. SPRAY 0.1mL IN ONE NOSTRIL. REPEAT IN ALTERNATE NOSTRIL 2-3 MINUTES IF NEEDED. SEEK MEDICAL ATTENTION IMMEDIATELY EVEN IF PATIENT RESPONDS. 2 each 2 023 2024 Discontinued(R eorder (will not trigger notification to Pharmacy)) fluticasone (Flonase) 50 MCG/ACT nasal sprayIndication s:Moderate persistent asthma, unspecified whether complicated USE 1 SPRAY IN EACH NOSTRIL TWICE DAILY 16 g 5 025 2024 Discontinued Active Problems Problem Noted Date Diagnosed Date Long-term current use of opiate analgesic 2024 Gait instability 05/05/2023 Acute conjunctivitis of right eye 03/05/2023 Healthcare maintenance 07/28/2022 Overview (05/05/2023): Mammo: 09/2022 Birads 1 Pap: S/P total hysterectomy for benign reason. Pt does not know if cervix remains. Will schedule follow up pelvic exam C-scope: Previously at [facility]. Date unknown. Will request records BMD: Routine age 67 Assessment & Plan (05/05/2023 8:28 PM EST): DEXA scan ordered RBBB 07/22/2022 Obstructive sleep apnea syndrome 03/21/2022 Overview (07/28/2022): Has CPAP Chronic low back pain 03/12/2022 Overview (07/28/2022): Hydrocodone t.i.d as needed. Compliant with HISTORIC INTERPRETER agreement Assessment & Plan (05/05/2023 8:15 PM EST): Continue hydrocodone as prescribed. Patient will bring tablets to pharmacy to determine if able to order prior formulation Declines chronic pain group at this time Follow as scheduled with HISTORIC INTERPRETER Chronic pain of right knee 03/12/2022 Overview (07/28/2022): Referred to PT for balance training 06/2022 Type 2 diabetes mellitus, [facility] long-term current use of insulin 10/01/2020 Overview (04/04/2024): Metformin monotherapy CKD stage 3 followed by nephrology Foot Exam: 03/2024 risk 0 Eye Exam: Followed by [facility] in [place] Statin: Yes ASA: No PATRICIA/ARB: Yes Encouraged [...] (CMS/HCC) 07/15/2017 Overview (04/04/2024): Followed by DR. Loar at [facility] GI Hepatic steatosis, hx of chronic HCV [...] Problem Noted Date Diagnosed Date Resolved Date [place] eye disease of right eye 03/05/2023 03/05/2023 Assessment & Plan (03/05/2023 10:51 AM EST): Given antibiotic cream for 5 days Arthritis of left knee 03/21/202207/24 Arthritis of right knee 03/21/2022 05/0 06/2022 Atrophic gastritis 10/14/2021 Asthma 04/15/2021 07/24/2022 Chronic kidney disease, stage 2 (mild) 04/15/2021 07/22/2022 Urinary incontinence 04/15/2021 023 Renal stone 07/14/2019 07/24/2022 CKD (chronic kidney disease) , stage III (CMS/[facility]) 07/17/2017 07/22/2022 Fatty liver 07/15/2017 07/24/2022 Knee pain 02/14/2015 07/24/2022 Obesity 02/14/2015 07/24/2022 Increased frequency of urination 02/14/2015 07/24/2022 Type 2 diabetes mellitus 02/14/201506/2022 Chronic kidney disease 09/18/201107/22 Encounters Date Type Department Care Team Description 01/11/2025 Refill [facility] [address] [place] [address] Loretto, Kelli, TELESALES TEAM LEADER Moderate persistent asthma, unspecified whether complicated 12/26/2024 9:00 AM EDT Clinical Support [facility] [address] [place] [address] Tammie Diaz, RN Long-term current use of opiate analgesic (Primary Dx) 12/26/2024 Refill [facility] [address] [place] [address] Tammie Diaz, RN Long-term current use of opiate analgesic (Primary Dx) 12/26/2024 Travel 12/14/2024 Refill [facility] [place] [address] Kelli Horton [facility] 12/08/2024 Telephone [facility] [place] [address] Kelli Horton FNP Preop 11/03/2024 Refill [facility] [place] [phone] Kelli Horton [facility] Chronic low back pain, unspecified back pain laterality, unspecified whether sciatica present 10/18/2024 9:15 AM EDT Office Visit [facility] [address] [facility] [place] [address] Kelli Horton [facility] Type 2 diabetes mellitus with stage 3 chronic kidney disease, without long-term current use of insulin, unspecified whether stage 3a or 3b CKD (CMS/HCC) (Primary Dx); Dietary counseling; Exercise counseling 10/18/2024 Travel from Last 3 Months Immunizations Immunization Administration [...] Description 02/01/2025 9:30 AM EST Office Visit [facility] [address] [place], [place] [phone] LorettoKelli FNP [address] [place] [address] 02/23/2025 10:00 AM EST Clinical Support [facility] [address] [place] [address] Tammie Diaz, RN Health Maintenance Due Date [...] Negative Negative Opiate Screen, Urine Positive(A) Negative Comment:HISTORIC INTERPRETER pt, on hydrocodo ne Methamphetamine Screen Urine [...] - 12/26/2024 9:22 AM EDT UTOX cup Lot#[id number] Exp. 12/27/25 Internal Pass Control [facility] POINT OF CARE TEST ENTER/EDIT ORDERABLES Final Result * (ABNORMAL) POCT HGB A1C (10/18/2024 9:31 AM EDT) Hemoglobin A1C 6.0(A) 4.0 - 5.7 % Blood 10/18/2024 9:31 AM EDT [facility] TELESALES TEAM LEADER POINT OF CARE TEST ENTER/EDIT ORDERABLES Final Result * POCT Glucose (10/18/2024 9:03 AM EDT) Glucose Blood, POC 164 60 - 200 mg/dL QC Media Lot # [id number] Lot# Expiration Date ,391,692 Blood Capillary blood specimen / Unknown 10/18/2024 9:03 AM EDT [facility] TELESALES TEAM LEADER POINT OF CARE TEST ENTER/EDIT ORDERABLES Final Result * BI Mammogram Screening Tomosynthesis Bilateral (08/11/2024 9:00 AM EDT) Anatomical Region Laterality Modality Breast Bilateral Mammography 08/11/2024 9:00 AM EDT Narrative 08/19/2024 5:38 PM EDT [facility] [address] [place] [address] Mammography Report Signed Patient: Ludivina Hussein MR#: [id number] : 1955 Acct:[id number] Age/Sex: 68 / F ADM Date: 08/11/24 Loc: HO.MAMMO Attending Dr: Kelli Horton TELESALES TEAM LEADER Ordering Physician: Kelli Horton Results: 1Nega tive Date of Service: 08/11/24 Follow Up: 1 Year From [facility] Mammogram Procedure(s): MM tomosynthesis screening BI Accession Number(s): [id number] cc: Kelli Horton TELESALES TEAM LEADER EXAMINATION: MM SCREENING DIGITAL BREAST TOMOSYNTHESIS, BILATERAL [...] 08/19/24 1735 DD/ 9 TD/TT: 08/11/24 09 Mineral Surveyor: Procedure Note Donotuseinterpreter, Image - 08/19/2024 [facility] [address] [place] [address] Mammography Report Signed Patient: Ludivina Hussein [facility]#: [id number] : 8Acct:[id number] Age/Sex: 68 / FADM Date: 08/11/24 Loc: GERRY Attending Dr: Kelli Horton TELESALES TEAM LEADER Ordering Physician: Kelli Horton FNPResults: 1Nega tive Date of Service: 08/11/24Follow Up: 1 Year From Orig inal Mammogram Procedure(s): MM tomosynthesis screening BI Accession Number(s): [id number] cc: Kelli Horton TELESALES TEAM LEADER EXAMINATION: MM SCREENING DIGITAL BREAST TOMOSYNTHESIS, BILATERAL [...] 08/19/24 1735 DD/ 9 TD/TT: 08/11/24 09 Mineral Surveyor: [facility] TELESALES TEAM LEADER IMG BI PROCEDURES Edited Resu lt - Final * Lipid Panel, Standard (06/24/2024 10:01 AM EDT) Triglycerides 93 <150 mg/dL [facility] Comment:Desirable Triglyceri de: less than 150 mg/dLBorderline High Triglyceride 150-199 mg/dLHigh Triglyceride: 200-499 mg/dLVery High Triglyceride: greater than or equal to 5OO mg/dL Cholesterol 131 <200 mg/dL [facility] Comment:Desirable Cholestero l: less than 200 mg/dLBorderline High Cholesterol: 200-239 mg/dLHigh Cholesterol: greater than 239 mg/dL LDL Cholesterol Calculated 64 <100 mg/dL [facility] Comment:Desirable LDL: less than 100 mg/dLNear Optimal/Above Optimal LDL: 110- 129 mg/dLBorderline High LDL: 130-159 mg/dLHigh LDL: 160-189 mg/dLVery High LDL: greater than or equal to 190 mg/dL HDL Cholesterol 49 >40 mg/dL [facility] Comment:Desirable HDL: great er than 40 mg/dL Note: This HDL assay may give artificially low results in patients with liver disease. 06/24/2024 10:0 1 AM EDT 06/24/2024 11:18 AM EDT [facility] LAB BLOOD ORDERABLES Final Re sult [facility] [address] [place] [address] [phone] * Hm Colonoscopy (05/03/2018) Colonoscopy Normal Normal Narrative Madeleine Valle - 05/03/2018 Repeat in 10 years us Historical Provider MD HEALTH MAINTENANCE Final Result * HPV mRNA E6/E7 (03/03/2016 11:45 AM EST) HPV mRNA E6/E7 Not Detected NOT DETECTED [facility] Comment: This test was performed using the APTIMA(R) HPV Assay ([employer] This assay detects E6/E7 viral messenger RNA (mRNA) from 14 high-risk HPV types (16,18,31,33,35,39,45,51, 52,56,58,59,66,68). For additional information please refer to: http://education.[employer].com/faq/IGL870e1 (This link is being provided for informational/ educational purposes only.) Test Performed by [employer], [employer] [facility], [address] [place] [id number] Leonardo Cano M.D., Ph.D., Director of Laboratories , [facility] [id number] Please note: Effective 12/03/2015, HPV testing will be performed using [employer]'s APTIMA test which targets mRNA. Detecting mRNA instead of DNA, as in older methods, offers significant improvements in specificity. 03/03/2016 11:4 5 AM EST Nandini Biswas NP HISTORICAL/NON ORDERABLE LABS Fi nal Result [facility] [address] from Last 3 Months or Most Recently Relevant to Health Maintenance Insurance [facility] [employer] (HMO D-SNP) Care Teams Jack Setter Relationship Specialty Start Date End Date Kelli Horton FNP [address] [place] [address] PCP - General Family Medicine 05/20/22
--- OUTSIDE RECORDS SUMMARY | 2025-01-18 10:32 | XMS_ITS | Encounter Summary ---
Author Organization [facility] Address [address] [place] [address] Phone Care Team Providers Care Manager Farm Name Role Phone [facility] Primary Care Provider [phone] Encounter Details Date Type Department Care Team ([facility] Contact Info) Description 12/20/2021 Documentation Only [facility] [address] [place] [address] Shaun Morales PA [address] [place] [address] Social History Tobacco Use Types [...] [facility] [address] [place] [facility] [place] [phone] Danny Mahoney MD [address] [phone] documented as of this encounter Visit Diagnoses Not on filedocumented in this encounter Care Teams Manager Farm Relationship Specialty Start Date End Date Sol Kelli [address] [place] [address] PCP - General 11/26/23 documented as of this encounter
--- OUTSIDE RECORDS SUMMARY | 2025-01-18 10:32 | XMS_ITS | Encounter Summary ---
Author Organization [facility] Address [address] [place] [address] Phone Care Team Providers Care Combat Systems Operator Name Role Phone Sol [place] Primary Care Provider [phone] Encounter Details Date Type Department Care Team ([facility] Contact Info) Description 12/23/2021 Documentation Only [facility] [address] [place] [address] Shaun Morales PA [address] [place] [address] Social History Tobacco Use Types [...] Visit [facility] [address] [place] [facility] [place] [phone] Danny Mahoney MD [address] [phone] documented as of this encounter Visit Diagnoses Not on filedocumented in this encounter Care Teams Combat Systems Operator Relationship Specialty Start Date End Date Sol Kelli [address] [place] [address] PCP - General 11/26/23 documented as of this encounter
--- OUTSIDE RECORDS SUMMARY | 2025-01-18 10:32 | XMS_ITS | Encounter Summary ---
Author Organization [employer] Address [address] [facility] 7t [place] [address] Care Team Providers Care Line Locator Name Role Phone [facility] Primary Care Provider [phone] Reason for Visit * Reason Onset Date Comments Med Refill 02/11/2023 Encounter Details Date Type Department Care Team ([facility] st Contact Info) Description 02/11/2023 Telephone [facility] [address] [place] [address] [facility] [address] [place] [address] Med Refill Social History Tobacco Use Types [...] from pt requesting med refill on; HYDROcodone-acetaminophen ([place]) 5-325 MG tablet documented in this encounter Plan of Treatment Upcoming Encounters Date Type Department Care Team (Late st Contact Info) Description 02/01/2025 9:30 AM EST Office Visit [facility] [address] [place] [address] [facility] [address] [place] [address] 02/23/2025 10:00 AM EST Clinical Support [address] [address] Tammie Diaz RN documented as of this encounter Visit Diagnoses Not on filedocumented in this encounter Additional Health Concerns Assessment Noted Time PHQ-9 Depression Total Score: 21 022 10:03 AM EST documented as of this encounter Care Teams Line Locator Relationship Specialty Start Date End Date [facility] [address] [place] [address] PCP - General Family Medicine 05/20/22 documented as of this encounter
--- OUTSIDE RECORDS SUMMARY | 2025-01-18 10:32 | XMS_ITS | Encounter Summary ---
Author Organization [employer] Address [address] [facility] 7t [place] [address] Care Team Providers Care Kiln Setter Name Role Phone Kelli Horton HEAD STOCK TRANSFER CLERK Primary Care Provider [phone] Encounter Details Date Type Department Care Team ([facility] st Contact Info) Description 02/06/2023 Abstract [facility] [address] [place] [address] Madeleine Valle Social History Tobacco Use Types [...] 02/01/2025 9:30 AM EST Office Visit [address] [address] [address] [address] 02/23/2025 10:00 AM EST Clinical Support [address] [phone] Tammie Diaz RN documented as of this [...] as of this encounter Care Teams Kiln Setter Relationship Specialty Start Date End Date Kelli Horton FNP [address] [place] [address] PCP - General Family Medicine 05/20/22 documented as of this encounter
--- OUTSIDE RECORDS SUMMARY | 2025-01-18 10:32 | XMS_ITS | Encounter Summary ---
Author Organization [employer] Address 75 [facility] 7t [place] [address] Care Team Providers Care Grocery Store Manager Name Role Phone [place] [facility] Primary Care Provider [phone] Reason for Visit * Reason Onset Date Comments Med Refill 03/15/2024 Encounter Details Date Type Department Care Team ([facility] st Contact Info) Description 03/15/2024 Telephone [facility] [address] [place] [address] [facility] [address] [place] [address] Med Refill Social History Tobacco Use Types [...] medication refill. Medications needing refill : HYDROcodone-acetaminophen ([place]) 5-325 MG tablet To be sent to: [facility] [place], [place] - [address] [place] [address] documented in this encounter Plan of Treatment Upcoming Encounters Date Type Department Care Team ([facility] st Contact Info) Description 02/01/2025 9:30 AM EST Office Visit [facility] [address] [place] [address] Kelli Horton FNP [address] [place] [address] 02/23/2025 10:00 AM EST Clinical Support [address] [address] Tammie Diaz RN documented as of this encounter Visit Diagnoses Not on filedocumented in this encounter Additional Health Concerns Assessment Noted Time PHQ-9 Depression Total Score: 0 12/25/19 10:25 AM EDT documented as of this encounter Care Teams Grocery Store Manager Relationship Specialty Start Date End Date Kelli Horton FNP [address] [place] [address] PCP - General Family Medicine 05/20/22 documented as of this encounter
--- OUTSIDE RECORDS SUMMARY | 2025-01-18 10:32 | XMS_ITS | Encounter Summary ---
Author Organization [employer] Address [address] [place] [address] 7t [place] [address] Care Team Providers Care Doctor Of Nurse Anesthesia Name Role Phone Kelli Horton [facility] Primary Care Provider [phone] Reason for Visit * Reason Comments Med Refill Encounter Details Date Type Department Care Team (Late st Contact Info) Description 12/16/2022 Refill [facility] [address] [place] [address] Name, MD Haroon [address] [place] [address] Chronic low back pain, unspecified back pain [...] Description 02/01/2025 9:30 AM EST Office Visit [facility] [address] [place] [address] [address] 02/23/2025 10:00 AM EST Clinical Support [facility] [address] [place] [address] Tammie Diaz RN documented as of this encounter Visit Diagnoses Diagnosis Chronic low back pain, unspecified back pain laterality, unspecified whether sciatica present documented in this encounter Additional Health Concerns Assessment Noted Time PHQ-9 Depression Total Score: 21 03/21/ 022 10:03 AM EST documented as of this encounter Care Teams Doctor Of Nurse Anesthesia Relationship Specialty Start Date End Date Kelli Horton FNP [address] [place] [address] PCP - General Family Medicine 05/20/22 documented as of this encounter
--- OUTSIDE RECORDS SUMMARY | 2025-01-18 10:32 | XMS_ITS | Encounter Summary ---
Author Organization [employer] Address [address] [facility] 7t [place] [address] Care Team Providers Care E Commerce Web Developer Name Role Phone Kelli Horton [facility] Primary Care Provider [phone] Reason for Visit * Reason Onset Date Comments Nurse Triage 02/11/2023 Encounter Details Date Type Department Care Team ([facility] st Contact Info) Description 02/11/2023 Telephone [facility] [address] [place] [address] [facility] 230 [place] [address] Nurse Triage Social History Tobacco Use Types [...] past 12 months, has t he electric, [employer], oil or water [employer] threatened to shut off services in your [...] Faxed to Alec * Telephone Encounter - lEba Artis RN - 02/11/2023 10:43 AM EST [...] the only possible outcome for this symptom Filipino Speaker documented in this encounter Plan of Treatment Upcoming Encounters Date Type Department Care Team (Late st Contact Info) Description 02/01/2025 9:30 AM EST Office Visit [address] [address] Kelli Horton FNP [address] [place] [address] 02/23/2025 10:00 AM EST Clinical Support [address] [address] Tammie Diaz RN documented as of this encounter Visit Diagnoses Not on filedocumented in this encounter Additional Health Concerns Assessment Noted Time PHQ-9 Depression Total Score: 21 03/21/ 022 10:03 AM EST documented as of this encounter Care Teams E Commerce Web Developer Relationship Specialty Start Date End Date Kelli Horton FNP [address] [place] [address] PCP - General Family Medicine 05/20/22 documented as of this encounter
--- OUTSIDE RECORDS SUMMARY | 2025-01-18 10:32 | XMS_ITS | Encounter Summary ---
Author Organization [employer] Address [address] [facility] 7t [place] [address] Care Team Providers Care Green House Manager Name Role Phone [facility] Primary Care Provider [phone] Reason for Visit * Reason Comments Med Refill Encounter Details Date Type Department Care Team (Late st Contact Info) Description 12/17/2023 Refill [facility] [address] [place] [address] [facility] [address] [place] [address] Chronic low back pain, unspecified back pain [...] Description 02/01/2025 9:30 AM EST Office Visit [address] [address] Kelli Horton FNP [address] [place] [address] 02/23/2025 10:00 AM EST Clinical Support [address] [address] Tammie Diaz RN documented as of this encounter Visit Diagnoses Diagnosis Chronic low back pain, unspecified back pain laterality, unspecified whether sciatica present documented in this encounter Additional Health Concerns Assessment Noted Time PHQ-9 Depression Total Score: 0 07/22/19 24 9:10 AM EDT documented as of this encounter Care Teams Green House Manager Relationship Specialty Start Date End Date Kelli Horton FNP [address] [place] [address] PCP - General Family Medicine 05/20/22 documented as of this encounter
--- OUTSIDE RECORDS SUMMARY | 2025-01-18 10:33 | XMS_ITS | Encounter Summary ---
Author Organization [employer] Address 75 [facility] 7 [place] [address] Care Team Providers Care Hold Worker Name Role Phone [facility] Primary Care Provider [phone] Reason for Visit * Reason Onset Date Comments Referral 12/11/2022 Encounter Details Date Type Department Care Team (Late Contact Info) Description 12/11/2022 Telephone [facility] 230 [place] [address] [facility] [address] [place] [address] Referral Social History Tobacco Use Types Packs/Day [...] and medication list to be faxed to [phone]. documented in this encounter Plan of Treatment Upcoming Encounters Date Type Department Care Team (Late st Contact Info) Description 02/01/2025 9:30 AM EST Office Visit [address] [address] Kelli Horton FNP [address] [place] [address] 02/23/2025 10:00 AM EST Clinical Support [address] [address] Tammie Diaz RN documented as of this encounter Visit Diagnoses Not on filedocumented in this encounter Additional Health Concerns Assessment Noted Time PHQ-9 Depression Total Score: 21 022 10:03 AM EST documented as of this encounter Care Teams Hold Worker Relationship Specialty Start Date End Date Kelli [place] [address] PCP - General Family Medicine 05/20/22 documented as of this encounter
== END 2025-01-18 10:01 | disposition home or self-care (01) ==
LOC: HO.HPS 09:15
PROVIDERS: PCP Registered Nurse; Visit Provider Internal Medicine Pulmonary Disease
DX: J44.89 Other specified chronic obstructive pulmonary disease (principal); G47.33 Obstructive sleep apnea (adult) (pediatric); Z87.891 Personal history of nicotine dependence; Z01.811 Encounter for preprocedural respiratory examination
CPT/HCPCS: 99214; G2211

== ENCOUNTER → 2025-01-18 09:14 | Outpatient (BNVA) | payer OTHER, SELFPAY | PROVIDERS: PCP Registered Nurse; Visit Provider Internal Medicine Pulmonary Disease | DX: Z01.811 Encounter for preprocedural respiratory examination (principal); J44.89 Other specified chronic obstructive pulmonary disease; G47.33 Obstructive sleep apnea (adult) (pediatric); Z87.891 Personal history of nicotine dependence | CPT/HCPCS: 99212 ==

== ENCOUNTER 2025-01-19 09:09 | Outpatient (REF) | payer OTHER, SELFPAY ==
--- NOTE | ~2025-01-19 | CT_ITS ---
EXAMINATION: CT KNEE WITHOUT CONTRAST, LEFT CLINICAL INFORMATION: Unilateral primary osteoarthritis COMPARISON: Left knee x-ray 08/26/2023 TECHNIQUE: Axial 2 mm thin images of left knee were performed as part of [facility] protocol. This CT examination was performed using dose optimization techniques as appropriate, variously including the following: *Automated exposure control *Adjustment of mA and/or kV according to patient size (this includes techniques or standardized protocols for targeted exams where dose is matched to indication/reason for exam; i.e. extremities or head) *Use of iterative reconstruction technique DLP: 336 mGy/cm. FINDINGS/ CT/CT knee LT wo IV con IMPRESSION: Axial images of left knee were obtained as part of [facility] protocol for patient to have a left knee prosthesis. No relating needed. Electronically signed by: Hernesto Muniz MD 01/19/2025 10:10 AM EDT
--- OUTSIDE RECORDS SUMMARY | 2025-01-19 10:19 | XMS_ITS | Encounter Summary ---
Author Organization [facility] Address [address] [place] [address] Phone Care Team Providers Care Geek Squad Agent Name Role Phone [facility] Primary Care Provider [phone] Encounter Details Date Type Department Care Team ([facility] Contact Info) Description 12/20/2021 Documentation Only [facility] [address] [place] [address] Shaun Morales PA [address] [place] [address] Social History Tobacco Use Types [...] Visit [facility] [address] [place] [facility] [place] [phone] Danny Mahoney MD [address] [phone] documented as of this encounter Visit Diagnoses Not on filedocumented in this encounter Care Teams Geek Squad Agent Relationship Specialty Start Date End Date Sol Kelli [address] [place] [address] PCP - General 11/26/23 documented as of this encounter
--- OUTSIDE RECORDS SUMMARY | 2025-01-19 10:19 | XMS_ITS | Encounter Summary ---
Author Organization [employer] Address [address] [facility] 7t [place] [address] Care Team Providers Care Cleater Name Role Phone [facility] Primary Care Provider [phone] Reason for Visit * Reason Comments Med Refill Encounter Details Date Type Department Care Team (Late st Contact Info) Description 12/17/2023 Refill [facility] [address] [place] [address] [facility] [address] [place] [address] Chronic low back pain, unspecified back pain [...] 02/01/2025 9:30 AM EST Office Visit [address] [address] Kelli Horton FNP [address] [place] [address] 02/23/2025 10:00 AM EST Clinical Support [address] [address] Tammie Diaz RN documented as of this encounter Visit Diagnoses Diagnosis Chronic low back pain, unspecified back pain laterality, unspecified whether sciatica present documented in this encounter Additional Health Concerns Assessment Noted Time PHQ-9 Depression Total Score: 0 07/22/19 24 9:10 AM EDT documented as of this encounter Care Teams Cleater Relationship Specialty Start Date End Date Kelli Horton FNP [address] [place] [address] PCP - General Family Medicine 05/20/22 documented as of this encounter
--- OUTSIDE RECORDS SUMMARY | 2025-01-19 10:19 | XMS_ITS | Encounter Summary ---
Author Organization [employer] Address [address] [place] [address] 7t [place] [address] Care Team Providers Care Senior Ui Designer Name Role Phone Kelli Horton [facility] Primary Care Provider [phone] Reason for Visit * Reason Comments Med Refill Encounter Details Date Type Department Care Team (Late st Contact Info) Description 12/16/2022 Refill [facility] [address] [place] [address] Name, MD Haroon [address] [place] [address] Chronic low back pain, unspecified back pain [...] Description 02/01/2025 9:30 AM EST Office Visit [facility] [address] [place] [address] [address] [address] 02/23/2025 10:00 AM EST Clinical Support [facility] [address] [place] [address] Tammie Diaz RN documented as of this encounter Visit Diagnoses Diagnosis Chronic low back pain, unspecified back pain laterality, unspecified whether sciatica present documented in this encounter Additional Health Concerns Assessment Noted Time PHQ-9 Depression Total Score: 21 03/21/ 022 10:03 AM EST documented as of this encounter Care Teams Senior Ui Designer Relationship Specialty Start Date End Date Kelli Horton FNP [address] [place] [address] PCP - General Family Medicine 05/20/22 documented as of this encounter
--- OUTSIDE RECORDS SUMMARY | 2025-01-19 10:19 | XMS_ITS | Encounter Summary ---
Author Organization [employer] Address [address] [facility] 7t [place] [address] Care Team Providers Care Furnace Operator Oil Or Gas Name Role Phone Kelli Horton [facility] Primary Care Provider [phone] Reason for Visit * Reason Onset Date Comments Nurse Triage 02/11/2023 Encounter Details Date Type Department Care Team ([facility] st Contact Info) Description 02/11/2023 Telephone [facility] [address] [place] [address] [place] [address] [place] [address] Nurse Triage Social History Tobacco Use Types [...] past 12 months, has t he electric, [employer], oil or water [employer] threatened to shut off services in your [...] the only possible outcome for this symptom [place] Speaker documented in this encounter Plan of Treatment Upcoming Encounters Date Type Department Care Team (Late st Contact Info) Description 02/01/2025 9:30 AM EST Office Visit [address] [address] Kelli Horton FNP [address] [place] [address] 02/23/2025 10:00 AM EST Clinical Support [address] [address] Tammie Diaz RN documented as of this encounter Visit Diagnoses Not on filedocumented in this encounter Additional Health Concerns Assessment Noted Time PHQ-9 Depression Total Score: 21 03/21/ 022 10:03 AM EST documented as of this encounter Care Teams Furnace Operator [employer] Relationship Specialty Start Date End Date Kelli Horton FNP [address] [place] [address] PCP - General Family Medicine 05/20/22 documented as of this encounter
--- OUTSIDE RECORDS SUMMARY | 2025-01-19 10:19 | XMS_ITS | Encounter Summary ---
Author Organization [facility] Address [address] [place] [address] Phone Care Team Providers Care Glue Cook Name Role Phone [facility] Primary Care Provider [phone] Encounter Details Date Type Department Care Team ([facility] Contact Info) Description 12/10/2021 Documentation Only [facility] [address] [place] [address] Shaun Morales PA [address] [place] [address] Social History Tobacco Use Types [...] Visit [facility] [address] [place] [facility] [phone] Danny Mahoney MD [address] [phone] documented as of this encounter Visit Diagnoses Not on filedocumented in this encounter Care Teams Glue Cook Relationship Specialty Start Date End Date Sol Kelli [address] [place] [address] PCP - General 11/26/23 documented as of this encounter
--- OUTSIDE RECORDS SUMMARY | 2025-01-19 10:19 | XMS_ITS | Encounter Summary ---
Author Organization [employer] Address [address] [facility] 7t [place] [address] Care Team Providers Care Ward Clerk Name Role Phone Beatriz Ford [facility] Primary Care Provider Aj bradford Sol [facility] Primary Care Provider [phone] Reason for Visit * Reason Comments Med Refill Encounter Details Date Type Department Care Team ([facility] st Contact Info) Description 04/03/2022 Refill [facility] [address] [place] [address] Name, MD Haroon [address] [place] [address] Chronic pain syndrome Social History Tobacco Use [...] on hydrocodone med , please contact .. (Sierra Leonean speaker) documented in this encounter Plan of Treatment Upcoming Encounters Date Type Department Care Team (Late st Contact Info) Description 02/01/2025 9:30 AM EST Office Visit [address] [address] [place] [address] [address] 02/23/2025 10:00 AM EST Clinical Support [address] [address] Tammie Diaz RN documented as of this encounter Visit Diagnoses Diagnosis Chronic pain syndrome documented in this encounter Additional Health Concerns Assessment Noted Time PHQ-9 Depression Total Score: 21 022 10:03 AM EST documented as of this encounter Care Teams Ward Clerk Relationship Specialty Start Date End Date Beatriz Ford FNP PCP - General Family Medicine 02/21/22 05/19/22 [place] FNP [address] [place] [address] PCP - General Family Medicine 05/20/22 documented as of this encounter
--- OUTSIDE RECORDS SUMMARY | 2025-01-19 10:19 | XMS_ITS | Encounter Summary ---
Author Organization [employer] Address [address] [facility] 7t [place] [address] Care Team Providers Care Patent Clerk Name Role Phone Kelli Horton [facility] [facility] Primary Care Provider [phone] Encounter Details Date Type Department Care Team (Late st Contact Info) Description 01/19/2025 Orders Only [facility] External Provider, [facility] Social History Tobacco Use Types Packs/Day Years [...] Description 02/01/2025 9:30 AM EST Office Visit [address] [phone] 02/23/2025 10:00 AM EST Clinical Support [address] [address] Tammie Diaz RN documented as of this encounter Procedures Procedure Name Priority Date/Time Associated Diagnosis Comments CT KNEE WO CONTRAST LEFT Routine 01/19/2025 9:28 AM EDT documented in this encounter Results * CT Kne w/o Contrast Left (01/19/2025 9:28 AM EDT) Anatomical Region Laterality Modality Lower Extremities, Knee Left Computed Tomography 01/19/2025 9:28 AM EDT Narrative 01/19/2025 10:12 AM EDT [address] [address] [address] Scan Report Signed Patient: Ludivina Hussein MR#: [id number] : 1955 Acct:[id number] Age/Sex: 69 / F ADM Date: 01/19/25 Loc: HO.CT Attending Dr: David Farris PA-C Ordering Physician: David Farris PA-C Date of Service: 01/19/25 Procedure(s): CT knee LT wo IV con Accession Number(s): [id number] cc: David Farris PA-C; [facility] Report Number: [id number]: Total DLP = 336.00 mGy-cm Reason for Exam: M17.12 - Unilateral primary osteoarthritis, left knee EXAMINATION: CT KNEE WITHOUT CONTRAST, LEFT CLINICAL INFORMATION: Unilateral primary osteoarthritis COMPARISON: Left knee x-ray 08/26/2023 TECHNIQUE: Axial 2 mm thin images of left knee were performed as part of [facility] protocol. This CT examination was performed using dose optimization techniques as appropriate, variously including the following: *Automated exposure control *Adjustment of mA and/or kV according to patient size (this includes techniques or standardized protocols for targeted exams where dose is matched to indication/reason for exam; i.e. extremities or head) *Use of iterative reconstruction technique DLP: 336 mGy/cm. FINDINGS/ CT/CT knee LT wo IV con IMPRESSION: Axial images of left knee were obtained as part of [facility] protocol for patient to have a left knee prosthesis. No relating needed. Electronically signed by: Hernesto Muniz MD 01/19/2025 10:10 AM EDT Dictated By: Hernesto Muniz MD Signed By: <Electronically signed by Hernesto Muniz MD in OV> 01/19/25 1010 DD/ 0928 TD/TT: 01/19/25 0943 Hotel Lobby Concierge: [facility] Procedure Note Donotuseinterpreter, Image - 01/19/[address] [place] [address] [address] Scan Report Signed Patient: Ludivina Hussein [facility]#: [id number] : 8Acct:[id number] Age/Sex: 69 / FADM Date: 01/19/25 Loc: HO.CT Attending Dr: David Farris PA-C Ordering Physician: David Farris PA-C Date of Service: 01/19/25 Procedure(s): CT knee LT wo IV con Accession Number(s): [id number] cc: David Farris PA-C; [facility] Report Number: [id number]: Total DLP = 336.00 mGy-cm Reason for Exam: M17.12 - Unilateral primary osteoarthritis, left knee EXAMINATION: CT KNEE WITHOUT CONTRAST, LEFT CLINICAL INFORMATION: Unilateral primary osteoarthritis COMPARISON: Left knee x-ray 08/26/2023 TECHNIQUE: Axial 2 mm thin images of left knee were performed as part of [facility] protocol. This CT examination was performed using dose optimization techniques as appropriate, variously including the following: *Automated exposure control *Adjustment of mA and/or kV according to patient size (this includes techniques or standardized protocols for targeted exams where dose is matched to indication/reason for exam; i.e. extremities or head) *Use of iterative reconstruction technique DLP: 336 mGy/cm. FINDINGS/ CT/CT knee LT wo IV con IMPRESSION: Axial images of left knee were obtained as part of [facility] protocol for patient to have a left knee prosthesis. No relating needed. Electronically signed by: Hernesto Muniz MD 01/19/2025 10:10 AM EDT Dictated By: Hernesto Muniz MD Signed By: <Electronically signed by Hernesto Muniz MD in OV> 01/19/25 1010 DD/ 0928 TD/TT: 01/19/25 0943 Hotel Lobby Concierge: [facility] External Provider IMG CT PROCEDURES Edited Result - Final documented in this encounter Visit Diagnoses Not on filedocumented in this encounter Additional Health Concerns Assessment Noted Time PHQ-9 Depression Total Score: 0 04/04/19 25 11:23 AM EST documented as of this encounter Care Teams Patent Clerk Relationship Specialty Start Date End Date Kelli Horton FNP [address] [place] [address] PCP - General Family Medicine 05/20/22 documented as of this encounter
--- OUTSIDE RECORDS SUMMARY | 2025-01-19 10:19 | XMS_ITS | Encounter Summary ---
Author Organization [employer] Address [address] [facility] 7 [place] [address] Care Team Providers Care Drainlayer Name Role Phone [facility] Primary Care Provider [phone] Reason for Visit * Reason Onset Date Comments Referral 12/11/2022 Encounter Details Date Type Department Care Team (Late Contact Info) Description 12/11/2022 Telephone [facility] [address] [place] [address] [facility] [address] [place] [address] Referral Social History Tobacco Use Types Packs/Day [...] and medication list to be faxed to [phone]. documented in this encounter Plan of Treatment Upcoming Encounters Date Type Department Care Team (Late st Contact Info) Description 02/01/2025 9:30 AM EST Office Visit [address] [address] Kelli Horton FNP [address] [place] [address] 02/23/2025 10:00 AM EST Clinical Support [address] [address] Tammie Diaz RN documented as of this encounter Visit Diagnoses Not on filedocumented in this encounter Additional Health Concerns Assessment Noted Time PHQ-9 Depression Total Score: 21 022 10:03 AM EST documented as of this encounter Care Teams Drainlayer Relationship Specialty Start Date End Date [place] [address] PCP - General Family Medicine 05/20/22 documented as of this encounter
--- OUTSIDE RECORDS SUMMARY | 2025-01-19 10:19 | XMS_ITS | Encounter Summary ---
Author Organization [facility] Address [address] [place] [address] Phone Care Team Providers Care Behavior Management Specialist Name Role Phone [place] Primary Care Provider [phone] Encounter Details Date Type Department Care Team ([facility] Contact Info) Description 12/23/2021 Documentation Only [facility] [address] [address] Shaun Morales PA [address] [place] [address] Social History Tobacco Use Types [...] [facility] [address] [place] [facility] [place] [phone] Danny Mahoney MD [address] [phone] documented as of this encounter Visit Diagnoses Not on filedocumented in this encounter Care Teams Behavior Management Specialist Relationship Specialty Start Date End Date Sol Kelli [address] [place] [address] PCP - General 11/26/23 documented as of this encounter
--- OUTSIDE RECORDS SUMMARY | 2025-01-19 10:19 | XMS_ITS | Encounter Summary ---
Author Organization [employer] Address [address] [facility] 7t [place] [address] Care Team Providers Care Business Process Associate Name Role Phone Kelli Horton FITNESS MANAGEMENT DIRECTOR Primary Care Provider [phone] Encounter Details Date Type Department Care Team ([facility] st Contact Info) Description 02/06/2023 Abstract [facility] [address] [place] [address] Madeleine Valle Social History Tobacco Use Types [...] Description 02/01/2025 9:30 AM EST Office Visit [address] [address] [place] [address] [address] 02/23/2025 10:00 AM EST Clinical Support [address] [phone] Tammie Diaz RN documented as of this [...] as of this encounter Care Teams Business Process Associate Relationship Specialty Start Date End Date Kelli Horton FNP [address] [place] [address] PCP - General Family Medicine 05/20/22 documented as of this encounter
--- OUTSIDE RECORDS SUMMARY | 2025-01-19 10:19 | XMS_ITS | Encounter Summary ---
Author Organization [employer] Address [address] [place] [address] 7t [place] [address] Care Team Providers Care Morgue Keeper Name Role Phone [facility] Primary Care Provider Encounter Details Date Type Department Care Team (Late st Contact Info) Description 09/30/[address] [address] Social History Tobacco Use Types Packs/Day Years [...] Description 02/01/2025 9:30 AM EST Office Visit [address] [phone] [address] [address] 02/23/2025 10:00 AM EST Clinical Support [address] [phone] Tammie Diaz, RN documented as of this [...] documented as of this encounter Care Teams Morgue Keeper Relationship Specialty Start Date End Date Kelli Horton FNP [address] [place] [address] PCP - General Family Medicine 05/20/22 documented as of this encounter
--- OUTSIDE RECORDS SUMMARY | 2025-01-19 10:19 | XMS_ITS | Clinical Summary ---
Author Organization [employer] Address [address] [facility] 7t [place] [address] Care Team Providers Care Shank Maker Name Role Phone Kelli Horton [facility] Primary Care Provider [phone] Allergies Active Allergy Reactions Criticality Noted Date [...] mL 3 025 2025 Active HYDROcodone-patricia taminophen ([place]) 5-325 MG tabletIndicatio ns:Chronic low back pain, [...] follow up pelvic exam C-scope: Previously at [facility]. Date unknown. Will request records BMD: Routine age 67 Assessment & Plan (05/05/2023 8:28 PM EST): DEXA scan ordered RBBB 07/22/2022 Obstructive sleep apnea syndrome 03/21/2022 Overview (07/28/2022): Has CPAP Chronic low back pain 03/12/2022 Overview (07/28/2022): Hydrocodone t.i.d as needed. Compliant with MEDICAL TECH agreement Assessment & Plan (05/05/2023 8:15 PM EST): Continue hydrocodone as prescribed. Patient will bring tablets to pharmacy to determine if able to order prior formulation Declines chronic pain group at this time Follow as scheduled with MEDICAL TECH Chronic pain of right knee 03/12/2022 Overview (07/28/2022): Referred to PT for balance training 06/2022 Type 2 [address], [facility] long-term current use of insulin 10/01/2020 Overview (04/04/2024): Metformin monotherapy CKD stage 3 followed by nephrology Foot Exam: 03/2024 risk 0 Eye Exam: [facility] [place] Statin: Yes ASA: No PATRICIA/ARB: Yes Encouraged [...] Overview (04/04/2024): Followed by DR. Lora at [facility] Hepatic steatosis, hx of chronic HCV [...] Problem Noted Date Diagnosed Date Resolved Date Hallock eye disease of right eye 03/05/2023 03/05/2023 Assessment & Plan (03/05/2023 10:51 AM EST): Given antibiotic cream for 5 days Arthritis of left knee 03/21/202207/24 Arthritis of right knee 03/21/2022 05/0 06/2022 Atrophic gastritis 10/14/2021 Asthma 04/15/2021 07/24/2022 Chronic kidney disease, stage 2 (mild) 04/15/2021 07/22/2022 Urinary incontinence 04/15/2021 023 Renal stone 07/14/2019 07/24/2022 CKD (chronic kidney disease) , stage III (CMS/[facility]) 07/17/2017 07/22/2022 Fatty liver 07/15/2017 07/24/2022 Knee pain 02/14/2015 07/24/2022 Obesity 02/14/2015 07/24/2022 Increased frequency of urination 02/14/2015 07/24/2022 Type 2 diabetes mellitus 02/14/201506/2022 Chronic kidney disease 09/18/201107/22 Encounters Date Type Department Care Team Description 01/19/2025 Orders Only [facility] External Provider, [facility] 01/11/2025 Refill [facility] [address] [place] [address] Sol, Kelli, BOX FABRICATOR Moderate persistent asthma, unspecified whether complicated 12/26/2024 9:00 AM EDT Clinical Support [facility] [address] [place] [address] Tammie Diaz, RN Long-term current use of opiate analgesic (Primary Dx) 12/26/2024 Refill [facility] [address] [place] [address] Tammie Diaz, RN Long-term current use of opiate analgesic (Primary Dx) 12/26/2024 Travel 12/14/2024 Refill [facility] [address] [place] [address] [facility] 12/08/2024 Telephone [facility] [address] [place], [place] [phone] [facility] Preop 11/03/2024 Refill [facility] [address] [place] [address] [facility] Chronic low back pain, unspecified back pain laterality, unspecified whether sciatica present from Last 3 Months Immunizations Immunization Administration [...] Description 02/01/2025 9:30 AM EST Office Visit [facility] [address] [place] [address] Sol, Kelli, BOX FABRICATOR [address] [place] [address] 02/23/2025 10:00 AM EST Clinical Support [address] [phone] Tammie Diaz, LADONNA Health Maintenance Due Date Last Done Comments CT Colonography 1955 FIT DNA/Cologuard 1955 FIT 1955 FOBT 1955 Sigmoidoscopy 1957 Alcohol/Substance Use Screening 1969 COVID-19 Vaccine (2023- season) 2024 12/25/2023, 07/12/2021, 01/31/2021, Additional history [...] CONTRAST LEFT Routine 01/19/2025 9:28 AM EDT POCT ANDRE-14 URINE DRUG SCREEN Routine 12/26/2024 [...] Recently Relevant to Health Maintenance Results * CT Kne w/o Contrast Left (01/19/2025 9:28 AM EDT) Anatomical Region Laterality Modality Lower Extremities, Knee Left Computed Tomography 01/19/2025 9:28 AM EDT Narrative 01/19/2025 10:12 AM EDT [place] [address] [address] Scan Report Signed Patient: Ludivina Hussein MR#: [id number] : 1955 Acct:[id number] Age/Sex: 69 / F ADM Date: 01/19/25 Loc: HO.CT Attending Dr: David Farris PA-C Ordering Physician: David Farris PA-C Date of Service: 01/19/25 Procedure(s): CT knee LT wo IV con Accession Number(s): [id number] cc: David Farris PA-C; [facility] Report Number: [id number]: Total DLP = 336.00 mGy-cm Reason for Exam: M17.12 - Unilateral primary osteoarthritis, left knee EXAMINATION: CT KNEE WITHOUT CONTRAST, LEFT CLINICAL INFORMATION: Unilateral primary osteoarthritis COMPARISON: Left knee x-ray 08/26/2023 TECHNIQUE: Axial 2 mm thin images of left knee were performed as part of biomed protocol. This CT examination was performed using [...] left knee were obtained as part of [facility] protocol for patient to have a left knee prosthesis. No relating needed. Electronically signed by: Hernesto Muniz MD 01/19/2025 10:10 AM EDT Dictated By: Hernesto Muniz MD Signed By: <Electronically signed by Hernesto Muniz MD in OV> 01/19/25 1010 DD/ 0928 TD/TT: 01/19/25 0943 Conservation Biology Professor: [facility] Procedure Note Donotuseinterpreter, Image - 01/19/[address] [place] [address] [address] Scan Report Signed Patient: Ludivina Hussein [facility]#: [id number] : 8Acct:[id number] Age/Sex: 69 / FADM Date: 01/19/25 Loc: HO.CT Attending Dr: David Farris PA-C Ordering Physician: David Farris PA-C Date of Service: 01/19/25 Procedure(s): CT knee LT wo IV con Accession Number(s): [id number] cc: David Farris PA-C; [facility] Report Number: [id number]: Total DLP = 336.00 mGy-cm Reason for Exam: M17.12 - Unilateral primary osteoarthritis, left knee EXAMINATION: CT KNEE WITHOUT CONTRAST, LEFT CLINICAL INFORMATION: Unilateral primary osteoarthritis COMPARISON: Left knee x-ray 08/26/2023 TECHNIQUE: Axial 2 mm thin images of left knee were performed as part of [facility] protocol. This CT examination was performed using [...] left knee were obtained as part of [facility] protocol for patient to have a left knee prosthesis. No relating needed. Electronically signed by: Hernesto Muniz MD 01/19/2025 10:10 AM EDT Dictated By: Hernesto Muniz MD Signed By: <Electronically signed by Hernesto Muniz MD in OV> 01/19/25 1010 DD/ TD/TT: 01/19/25 0943 Conservation Biology Professor: [facility] External Provider IMG CT PROCEDURES Edited Result - Final * (ABNORMAL) POCT ANDRE-14 Urine Drug Screen (12/26/2024 9:22 AM EDT) THC Negative Negative Cocaine Screen, Urine Negative Negative Opiate Screen, Urine Positive(A) Negative Comment:MEDICAL TECH pt, on hydrocodo ne Methamphetamine Screen Urine [...] procedure / Unknown 12/26/2024 9:22 AM EDT Narrative Tammie Diaz RN - 12/26/2024 9:22 AM EDT UTOX cup Lot#[id number] Exp. 12/27/25 Internal Pass Control [facility] POINT OF CARE TEST ENTER/EDIT ORDERABLES Final Result * (ABNORMAL) POCT HGB A1C (10/18/2024 9:31 AM EDT) Hemoglobin A1C 6.0(A) 4.0 - 5.7 % Blood 10/18/2024 9:31 AM EDT [facility] POINT OF CARE TEST ENTER/EDIT ORDERABLES Final Result * BI Mammogram Screening Tomosynthesis Bilateral (08/11/2024 9:00 AM EDT) Anatomical Region Laterality Modality Breast Bilateral Mammography 08/11/2024 9:00 AM EDT Narrative 08/19/2024 5:38 PM EDT [facility] [address] [place], [place] [address] Mammography Report Signed Patient: Ludivina Hussein MR#: [id number] : 1955 Acct:[id number] Age/Sex: 68 / F ADM Date: 08/11/24 Loc: HO.MAMMO Attending Dr: Kelli Horton BOX FABRICATOR Ordering Physician: Kelli Horton BOX FABRICATOR Results: 1Nega tive Date of Service: 08/11/24 Follow Up: 1 Year From Orig inal Mammogram Procedure(s): MM tomosynthesis screening BI Accession Number(s): [id number] cc: Kelli Horton BOX FABRICATOR EXAMINATION: MM SCREENING DIGITAL BREAST TOMOSYNTHESIS, BILATERAL [...] 08/19/24 1735 DD/ 0900 TD/TT: 08/11/24 0915 Conservation Biology Professor: Procedure Note Donotuseinterpreter, Image - 08/19/2024 [facility] [address] [place] [address] Mammography Report Signed Patient: Ludivina Hussein [facility]#: [id number] : 8Acct:[id number] Age/Sex: 68 / FADM Date: 08/11/24 Loc: HO.MAMMO Attending Dr: Kelli SHAH Ordering Physician: Kelli Horton FNPResults: 1Nega tive Date of Service: 08/11/24Follow Up: 1 Year From Orig inal Mammogram Procedure(s): MM tomosynthesis screening BI Accession Number(s): [id number] cc: Kelli Horton EXAMINATION: MM SCREENING DIGITAL BREAST TOMOSYNTHESIS, BILATERAL [...] 08/19/24 1735 DD/ 0900 TD/TT: 08/11/24 0915 Conservation Biology Professor: Kelli SHAH IMG BI PROCEDURES Edited Resu lt - Final * Lipid Panel, Standard (06/24/2024 10:01 AM EDT) Triglycerides 93 <150 mg/dL [facility] Comment:Desirable Triglyceri de: less than 150 mg/dLBorderline High Triglyceride 150-199 mg/dLHigh Triglyceride: 200-499 mg/dLVery High Triglyceride: greater than or equal to 5OO mg/dL Cholesterol 131 <200 mg/dL [facility] Comment:Desirable Cholestero l: less than 200 mg/dLBorderline High Cholesterol: 200-239 mg/dLHigh Cholesterol: greater than 239 mg/dL LDL Cholesterol Calculated 64 <100 mg/dL [facility] Comment:Desirable LDL: less than 100 mg/dLNear Optimal/Above Optimal LDL: 110- 129 mg/dLBorderline High LDL: 130-159 mg/dLHigh LDL: 160-189 mg/dLVery High LDL: greater than or equal to 190 mg/dL HDL Cholesterol 49 >40 mg/dL [facility] Comment:Desirable HDL: great er than 40 mg/dL Note: This HDL assay may give artificially low results in patients with liver disease. 06/24/2024 10:0 1 AM EDT 06/24/2024 11:18 AM EDT [facility] BOX FABRICATOR LAB BLOOD ORDERABLES Final Re sult [facility] [address] [place] [phone] * Hm Colonoscopy (05/03/2018) Pathologist [facility] Colonoscopy Normal Normal Narrative Madeleine Valle - 05/03/2018 Repeat in 10 years us [facility] Provider HEALTH MAINTENANCE Final Result * HPV mRNA E6/E7 (03/03/2016 11:45 AM EST) HPV mRNA E6/E7 Not Detected NOT DETECTED [facility] Comment: This test was performed using the APTIMA(R) HPV Assay ([employer] This assay detects E6/E7 viral messenger RNA (mRNA) from 14 high-risk HPV types (16,18,31,33,35,39,45,51, 52,56,58,59,66,68). For additional information please refer to: http://education.Civicon/faq/YKP368e4 (This link is being provided for informational/ educational purposes only.) Test Performed by [employer], [employer] [facility], [address] [place] [address] Leonardo Cano M.D., Ph.D., Director of Laboratories , [facility] [id number] Please note: Effective 12/03/2015, HPV testing will be performed using [employer]'s APTIMA test which targets mRNA. Detecting mRNA instead of DNA, as in older methods, offers significant improvements in specificity. 03/03/2016 11:4 5 AM EST us Nandini Biswas NP HISTORICAL/NON ORDERABLE LABS Fi nal Result [facility] [address] from Last 3 Months or Most Recently Relevant to Health Maintenance Insurance [facility] FDC OPTIONS (HMO D-SNP) Care Teams Shank Maker Relationship Specialty Start Date End Date Kelli Horton FNP [address] [place] [address] PCP - General Family Medicine 05/20/22
--- OUTSIDE RECORDS SUMMARY | 2025-01-19 10:19 | XMS_ITS | Clinical Summary ---
Author Organization [facility] Address [address] [place] [address] Phone Care Team Providers Care Technology Sales Representative Name Role Phone Kelli Horton Primary Care Provider [phone] Allergies Active Allergy Reactions Criticality Noted Date [...] follow up pelvic exam C-scope: Previously at [facility]. Date unknown BMD: Routine age 67 Right bundle-branch block 07/22/20222022 Obstructive sleep apnea syndrome 03/21/2022 02/24/2023 Overview (02/24/2023): Has CPAP Chronic low back pain 03/12/2022 02/24/2023 Overview (02/24/2023): Hydrocodone t.i.d as needed. Compliant with [employer] agreement Pain of knee region 03/12/2022 02/24/2023 [...] Exam: Followed by [facility] [place] Lipid panel: 03/2022 WNL ASCVD: LDL < [...] Of [address] [place] [phone] Danny Mahoney MD 12/13/2024 Orders Only [facility] [address] [facility] [address] [place] [phone] Jean Coles Chronic kidney disease, stage 2 [...] Visit [facility] [address] [place] [address] Danny Mahoney MD [address] [facility] [address] [place] [phone] Health Maintenance Due Date Last Done Comments [...] 04/22/2023, 03/27/2017, 12/31/2007 Insurance Medicaid [place] Medicare [facility] ([id number]) [facility] ([id number]) Care Teams Technology Sales Representative Relationship Specialty Start Date End Date [facility] [address] [place] [address] PCP - General 11/26/23
--- OUTSIDE RECORDS SUMMARY | 2025-01-19 10:19 | XMS_ITS | Encounter Summary ---
Author Organization [employer] Address [address] [facility] 7t [place] [address] Care Team Providers Care Corporate Safety Manager Name Role Phone Desmet [facility] Primary Care Provider [phone] Reason for Visit * Reason Onset Date Comments Med Refill 03/15/2024 Encounter Details Date Type Department Care Team ([facility] st Contact Info) Description 03/15/2024 Telephone [facility] [address] [place] [address] [facility] [address] [place] [address] Med Refill Social History Tobacco Use Types [...] medication refill. Medications needing refill : HYDROcodone-acetaminophen ([place]) 5-325 MG tablet To be sent to: [facility] - [place], [place] - [address] [place] [address] documented in this encounter Plan of Treatment Upcoming Encounters Date Type Department Care Team ([facility] st Contact Info) Description 02/01/2025 9:30 AM EST Office Visit [facility] [address] [place] [address] Kelli Horton FNP [address] [place] [address] 02/23/2025 10:00 AM EST Clinical Support [address] [address] Tammie Diaz RN documented as of this encounter Visit Diagnoses Not on filedocumented in this encounter Additional Health Concerns Assessment Noted Time PHQ-9 Depression Total Score: 0 12/25/19 10:25 AM EDT documented as of this encounter Care Teams Corporate Safety Manager Relationship Specialty Start Date End Date Kelli Horton FNP [address] [place] [address] PCP - General Family Medicine 05/20/22 documented as of this encounter
--- OUTSIDE RECORDS SUMMARY | 2025-01-19 10:19 | XMS_ITS | Encounter Summary ---
Author Organization [facility] [employer] Address [address] [place] [address] Phone Care Team Providers Care Furnace Reliner Name Role Phone Sol [place] Primary Care Provider [phone] Encounter Details Date Type Department Care Team ([facility] Contact Info) Description 12/23/2021 Documentation Only [facility] [address] [place] [address] Shaun Morales PA [address] [place] [address] Social History Tobacco Use Types [...] [facility] [address] [place] [phone] Danny Mahoney MD [address] [phone] documented as of this encounter Visit Diagnoses Not on filedocumented in this encounter Care Teams Furnace Reliner Relationship Specialty Start Date End Date Sol Kelli [address] [place] [address] PCP - General 11/26/23 documented as of this encounter
--- OUTSIDE RECORDS SUMMARY | 2025-01-19 10:19 | XMS_ITS | Encounter Summary ---
Author Organization [employer] Address [address] [facility] 7t [place] [address] Care Team Providers Care Envelope Adjuster Name Role Phone Blanchard [facility] Primary Care Provider [phone] Reason for Visit * Reason Onset Date Comments Med Refill 02/11/2023 Encounter Details Date Type Department Care Team ([facility] st Contact Info) Description 02/11/2023 Telephone [facility] [address] [place] [address] [facility] [address] [place] [address] Med Refill Social History Tobacco Use Types [...] from pt requesting med refill on; HYDROcodone-acetaminophen ([place]) 5-325 MG tablet documented in this encounter Plan of Treatment Upcoming Encounters Date Type Department Care Team (Late st Contact Info) Description 02/01/2025 9:30 AM EST Office Visit [facility] [address] [place] [address] [facility] [address] [place] [address] 02/23/2025 10:00 AM EST Clinical Support [address] [address] Tammie Diaz RN documented as of this encounter Visit Diagnoses Not on filedocumented in this encounter Additional Health Concerns Assessment Noted Time PHQ-9 Depression Total Score: 21 022 10:03 AM EST documented as of this encounter Care Teams Envelope Adjuster Relationship Specialty Start Date End Date BlanchardKelli [facility] [address] [place] [address] PCP - General Family Medicine 05/20/22 documented as of this encounter
--- OUTSIDE RECORDS SUMMARY | 2025-01-19 10:19 | XMS_ITS | Encounter Summary ---
Author Organization [employer] Address [address] [facility] 7t [place] [address] Care Team Providers Care Turn Supervisor Name Role Phone [place] [facility] Primary Care Provider [phone] Reason for Visit * Reason Onset Date Comments Med Refill 01/28/2024 Encounter Details Date Type Department Care Team ([facility] st Contact Info) Description 01/28/2024 Telephone [facility] [address] [place] [address] [employer] [address] [place] [address] Med Refill Social History Tobacco Use Types [...] Description 02/01/2025 9:30 AM EST Office Visit [address] [address] Kelli Horton FNP [address] [place] [address] 02/23/2025 10:00 AM EST Clinical Support [address] [address] Tammie Diaz, RN documented as of this encounter Visit Diagnoses Not on filedocumented in this encounter Additional Health Concerns Assessment Noted Time PHQ-9 Depression Total Score: 0 12/25/19 24 10:25 AM EDT documented as of this encounter Care Teams Turn Supervisor Relationship Specialty Start Date End Date Kelli Horton FNP [address] [place] [address] PCP - General Family Medicine 05/20/22 documented as of this encounter
--- OUTSIDE RECORDS SUMMARY | 2025-01-19 10:19 | XMS_ITS | Encounter Summary ---
Author Organization [employer] Address [address] [facility] 7t [place] [address] Care Team Providers Care Vocational Trainer Name Role Phone Beatriz Ford [facility] Primary Care Provider Aj bradford SolKelli ren [facility] Primary Care Provider [phone] Encounter Details Date Type Department Care Team ([facility] st Contact Info) Description 03/20/2022 Telephone [facility] [address] [place] [address] Beatriz Ford FNP Social History Tobacco Use [...] EST Office Visit [facility] [address] [place] [address] [place] FNP [address] [place] [address] 02/23/2025 10:00 AM EST Clinical Support [facility] [address] [place] [address] Tammie Diaz RN documented as of this encounter Visit Diagnoses Not on filedocumented in this encounter Care Teams Vocational Trainer Relationship Specialty Start Date End Date Beatriz Ford FNP PCP - General Family Medicine 02/21/22 05/19/22 [place] FNP [address] [place] [address] PCP - General Family Medicine 05/20/22 documented as of this encounter
== END 2025-01-19 09:10 | disposition home or self-care (01) ==
LOC: HO.CT 09:09
PROVIDERS: PCP Registered Nurse; Visit Provider Physician Assistant
DX: M17.12 Unilateral primary osteoarthritis, left knee (principal)
CPT/HCPCS: 73700

== ENCOUNTER → 2025-01-19 09:11 | Outpatient (BNV) | payer OTHER, SELFPAY | PROVIDERS: PCP Registered Nurse; Visit Provider Radiology Diagnostic Radiology | DX: M17.12 Unilateral primary osteoarthritis, left knee (principal) | CPT/HCPCS: 73700 ==

== ENCOUNTER 2025-01-30 | Outpatient (REF) | payer OTHER, SELFPAY ==
--- OUTSIDE RECORDS SUMMARY | 2025-01-05 13:09 | XMS_ITS | Clinical Summary ---
Author Organization [employer] Address [address] [employer] 7t [place] [address] Care Team Providers Care Supervisor Product Inspection Name Role Phone Kelli Horton [facility] Primary Care Provider [phone] Allergies Active Allergy Reactions Criticality Noted Date [...] fever or headaches. 30 tablet 023 Active Trelegy Ellipta 200-62.5-25 MCG/ACT aerosol powder [...] unspecified whether stage 3a or 3b CKD (HCC) USE DIRECTED TO TEST BLOOD SUGAR TWICE DAILY 100 strip 3 025 Active atorvastatin (Lipitor) 20 MG tablet TAKE 1 TABLET BY MOUTH EVERY EVENING 90 tablet 3 025 Active Tirzepatide (Mounjaro) 2.5 MG/0.5ML solution auto-injectorIn dications:Type 2 diabetes mellitus with stage 3 chronic kidney disease, without long-term current use of insulin, unspecified whether stage 3a or 3b CKD (HCC) Inject 2.5 mg under the skin 1 (one) time per week. 2 mL 3 025 2025 Active HYDROcodone-patricia taminophen (Chester) 5-325 MG tabletIndicatio ns:Chronic low back pain, unspecified back pain laterality, unspecified whether sciatica present Take 1 tablet by mouth every 12 (twelve) hours if needed for severe pain. 56 tablet 025 Active vitamin E 180 MG (400 UNIT) capsule TAKE 1 CAPSULE BY MOUTH EVERY MORNING 90 capsule 3 025 Active Narcan 4 MG/0.1ML nasal sprayIndication s:Long-term current use of opiate analgesic FOR SUSPECTED OPIOID OVERDOSE. SPRAY 0.1mL IN ONE NOSTRIL. REPEAT IN ALTERNATE NOSTRIL 2-3 MINUTES IF NEEDED. SEEK MEDICAL ATTENTION IMMEDIATELY EVEN IF PATIENT RESPONDS. 2 each 2 025 Active Narcan 4 MG/0.1ML nasal spray FOR SUSPECTED OPIOID OVERDOSE. SPRAY 0.1mL IN ONE NOSTRIL. REPEAT IN ALTERNATE NOSTRIL 2-3 MINUTES IF NEEDED. SEEK MEDICAL ATTENTION IMMEDIATELY EVEN IF PATIENT RESPONDS. 2 each 2 023 2024 Discontinued(R eorder (will not trigger notification to Pharmacy)) vitamin E 180 MG (400 UNIT) capsule TAKE 1 CAPSULE BY MOUTH EVERY MORNING 90 capsule 3 024 2024 Discontinued Active Problems Problem Noted Date Diagnosed Date Long-term current use of opiate analgesic 2024 Gait instability 05/05/2023 Acute conjunctivitis of right eye 03/05/2023 Healthcare maintenance 07/28/2022 Overview (05/05/2023): Mammo: 09/2022 [place] 1 Pap: S/P total hysterectomy for benign reason. Pt does not know if cervix remains. Will schedule follow up pelvic exam C-scope: Previously at [facility]. Date unknown. Will request records BMD: Routine age 67 Assessment & Plan (05/05/2023 8:28 PM EST): DEXA scan ordered RBBB 07/22/2022 Obstructive sleep apnea syndrome 03/21/2022 Overview (07/28/2022): Has CPAP Chronic low back pain 03/12/2022 Overview (07/28/2022): Hydrocodone t.i.d as needed. Compliant with NOVELTY TWISTER OPERATOR agreement Assessment & Plan (05/05/2023 8:15 PM EST): Continue hydrocodone as prescribed. Patient will bring tablets to pharmacy to determine if able to order prior formulation Declines chronic pain group at this time Follow as scheduled with NOVELTY TWISTER OPERATOR Chronic pain of right knee 03/12/2022 Overview (07/28/2022): Referred to PT for balance training 06/2022 Type 2 diabetes mellitus, [facility] long-term current use of insulin 10/01/2020 Overview (04/04/2024): Metformin monotherapy CKD stage 3 followed by nephrology Foot Exam: 03/2024 risk 0 Eye Exam: Followed by [facility] in [place] Statin: Yes ASA: No PATRICIA/ARB: Yes Encouraged [...] for ongoing diabetic footcare Cirrhosis of liver (CMS/HCC) 07/15/2017 Overview (04/04/2024): Followed by DR. Lora at [facility] Hepatic steatosis, hx [...] Problem Noted Date Diagnosed Date Resolved Date [place] eye disease of right eye 03/05/2023 03/05/2023 Assessment & Plan (03/05/2023 10:51 AM EST): Given antibiotic cream for 5 days Arthritis of left knee 03/21/202207/24 Arthritis of right knee 03/21/2022 05/0 06/2022 Atrophic gastritis 10/14/2021 Asthma 04/15/2021 07/24/2022 Chronic kidney disease, stage 2 (mild) 04/15/2021 07/22/2022 Urinary incontinence 04/15/2021 023 Renal stone 07/14/2019 07/24/2022 CKD (chronic kidney disease) , stage III ([facility]) 07/17/2017 07/22/2022 Fatty liver 07/15/2017 07/24/2022 Knee pain 02/14/2015 07/24/2022 Obesity 02/14/2015 07/24/2022 Increased frequency of urination 02/14/2015 07/24/2022 Type 2 diabetes mellitus 02/14/201506/2022 Chronic kidney disease 09/18/201107/22 Encounters Date Type Department Care Team Description 12/26/2024 9:00 AM EDT Clinical Support [facility] [address] [facility] [place] [address] Tammie Diaz, RN Long-term current use of opiate analgesic (Primary Dx) 12/26/2024 Refill [facility] [address] [facility] [place] [address] Tammie Diaz, RN Long-term current use of opiate analgesic (Primary Dx) 12/26/2024 Travel 12/14/2024 Refill [facility] [address] [facility] [place] [address] Kelli Horton FNP 12/08/2024 Telephone [facility] [address] [facility] [place] [address] Kelli Horton FNP Preop 11/03/2024 Refill [facility] [address] [place] [address] Sol ALYSSA Pereira Chronic low back pain, unspecified back pain laterality, unspecified whether sciatica present 10/18/2024 9:15 AM EDT Office Visit [facility] [address] [place] [address] [place] ALYSSA Pereira Type 2 diabetes mellitus with stage 3 chronic kidney disease, without long-term current use of insulin, unspecified whether stage 3a or 3b CKD (CMS/[facility]) (Primary Dx); Dietary counseling; Exercise counseling 10/18/2024 Travel 10/17/2024 Telephone [facility] [address] [place], [place] [phone] Sol ALYSSA Pereira Chart Prep 10/10/2024 Refill [facility] [address] [place] [address] [place] FNP from Last 3 Months Immunizations Immunization Administration [...] Care Team (Late st Contact Info) Description 02/01/2025 9:30 AM EST Office Visit [facility] [address] [place] [address] [phone] [place] FNP [address] [place] [address] 02/23/2025 10:00 AM EST Clinical Support [facility] [address] [place] [address] Tammie Diaz, LADONNA Health Maintenance Due Date Last Done Comments [...] Comments POCT ANDRE-14 URINE DRUG SCREEN Routine 12/26/2024 9:22 AM EDT Long-term current use of opiate analgesic POCT GLYCATED HEMOGLOBIN, TOTAL Routine 10/18/2024 9:31 [...] (CMS/HCC) BI MAMMOGRAM SCREENING TOMOSYNTHESIS BILATERAL Routine 08/11/2024 9:00 AM EDT LIPID PANEL, STANDARD Routine 06/24/2024 10:01 AM EDT HM COLONOSCOPY Routine 05/03/2018 ZZZ HISTORICAL HPV MRNA E6/E7 Routine 03/03/2016 11:45 AM EST from Last 3 Months or Most Recently Relevant to Health Maintenance Results * (ABNORMAL) POCT ANDRE-14 Urine Drug Screen (12/26/2024 9:22 AM EDT) THC Negative Negative Cocaine Screen, Urine Negative Negative Opiate Screen, Urine Positive(A) Negative Comment:NOVELTY TWISTER OPERATOR pt, on hydrocodo ne Methamphetamine Screen Urine Negative Negative Amphetamine Screen, [...] obtained by clean catch procedure / Unknown 12/26/2024 9:22 AM EDT Tammie West RN - 12/26/2024 9:22 AM EDT UTOX cup Lot#[id number] Exp. 12/27/25 Internal Pass Control [facility] POINT OF CARE TEST ENTER/EDIT ORDERABLES Final Result * (ABNORMAL) POCT HGB A1C (10/18/2024 9:31 AM EDT) Hemoglobin A1C 6.0(A) 4.0 - 5.7 % Blood 10/18/2024 9:31 AM EDT [facility] POINT OF CARE TEST ENTER/EDIT ORDERABLES Final Result * POCT Glucose (10/18/2024 9:03 AM EDT) Glucose Blood, POC 164 60 - 200 mg/dL QC Media Lot # [id number] Lot# Expiration Date ,764,689 Blood Capillary blood specimen / Unknown 10/18/2024 9:03 AM EDT [facility] [place] POINT OF CARE TEST ENTER/EDIT ORDERABLES Final Result * BI Mammogram Screening Tomosynthesis Bilateral (08/11/2024 9:00 AM EDT) Anatomical Region Laterality Modality Breast Bilateral Mammography 08/11/2024 9:00 AM EDT Narrative 08/19/2024 5:38 PM EDT [facility] [address] [place] [address] Mammography Report Signed Patient: Ludivina Hussein MR#: [id number] : 1955 Acct:[id number] Age/Sex: 68 / F ADM Date: 08/11/24 Loc: HO.MAMMO Attending Dr: Kelli Horton [facility] Ordering Physician: Kelli Horton Results: 1Nega tive Date of Service: 08/11/24 Follow Up: 1 Year From [facility] ina Mammogram Procedure(s): MM tomosynthesis screening BI Accession Number(s): [id number] cc: Kelli Horton [facility] EXAMINATION: MM SCREENING DIGITAL BREAST TOMOSYNTHESIS, BILATERAL [...] Cabrales DO in OV> 08/19/24 1735 DD/ 9 TD/TT: 08/11/24914 Ingredient Specialist: Procedure Note Donotuseinterpreter, Image - 08/19/20[facility] [address] [place] [address] Mammography Report Signed Patient: Ludivina Hussein NMR#: [id number] : 8Acct:[id number] Age/Sex: 68 / FADM Date: 08/11/24 Loc: GERRY Attending Dr: Kelli Horton [facility] Ordering Physician: Kelli Horton FNPResults: 1Nega tive Date of Service: 08/11/24Follow Up: 1 Year From Orig inal Mammogram Procedure(s): MM tomosynthesis screening BI Accession Number(s): [id number] cc: Kelli Horton [place] EXAMINATION: MM SCREENING DIGITAL BREAST TOMOSYNTHESIS, BILATERAL [...] DO Signed By: <Electronically signed by Lucille aCbrales DO in OV> 08/19/24 1735 DD/ 9 TD/TT: 08/11/24 09 Ingredient Specialist: [facility] IMG BI PROCEDURES Edited Resu lt - Final * Lipid Panel, Standard (06/24/2024 10:01 AM EDT) Triglycerides 93 <150 mg/dL [facility] Comment:Desirable Triglyceri de: less than 150 mg/dLBorderline High Triglyceride 150-199 mg/dLHigh Triglyceride: 200-499 mg/dLVery High Triglyceride: greater than or equal to 5OO mg/dL Cholesterol 131 <200 mg/dL [facility] Comment:Desirable Cholestero l: less than 200 mg/dLBorderline High Cholesterol: 200-239 mg/dLHigh Cholesterol: greater than 239 mg/dL LDL Cholesterol Calculated 64 <100 mg/dL [facility] Comment:Desirable LDL: less than 100 mg/dLNear Optimal/Above Optimal LDL: 110- 129 mg/dLBorderline High LDL: 130-159 mg/dLHigh LDL: 160-189 mg/dLVery High LDL: greater than or equal to 190 mg/dL HDL Cholesterol 49 >40 mg/dL [facility] Comment:Desirable HDL: great er than 40 mg/dL Note: This HDL assay may give artificially low results in patients with liver disease. 06/24/2024 10:0 1 AM EDT 06/24/2024 11:18 AM EDT [facility] LAB BLOOD ORDERABLES Final Re sult [facility] [address] [place] [address] [phone] * Hm Colonoscopy (05/03/2018) Colonoscopy Normal Normal Narrative Madeleine Valle - 05/03/2018 Repeat in 10 years us Historical Provider MD HEALTH MAINTENANCE Final Result * HPV mRNA E6/E7 (03/03/2016 11:45 AM EST) HPV mRNA E6/E7 Not Detected NOT DETECTED [facility] Comment: This test was performed using the APTIMA(R) HPV Assay ([employer] This assay detects E6/E7 viral messenger RNA (mRNA) from 14 high-risk HPV types (16,18,31,33,35,39,45,51, 52,56,58,59,66,68). For additional information please refer to: http://education.PostRocket/faq/BKW713r5 (This link is being provided for informational/ educational purposes only.) Test Performed by [facility], [facility], [address] [place] [address] Leonardo Cano M.D., Ph.D., Director of Laboratories , [facility] [id number] Please note: Effective 12/03/2015, HPV testing will be performed using [employer]'s APTIMA test which targets mRNA. Detecting mRNA instead of DNA, as in older methods, offers significant improvements in specificity. 03/03/2016 11:4 5 AM EST Nandini Biswas NP HISTORICAL/NON ORDERABLE LABS Fi nal Result [facility] [address] from Last 3 Months or Most Recently Relevant to Health Maintenance Insurance [facility] Member Subscriber Plan / Payer (Ef fective 2023-Present) Name:Ludivina Hussein Relation to Subscriber:Self Name:Ludivina Hussein Payer ID:Not on file Group ID:[id number] Type:Not on file Address: [address] [employer] (HMO D-SNP) [place] [id number] Care Teams Supervisor Product Inspection Relationship Specialty Start Date End Date Kelli Horton FNP [address] [place] [address] PCP - General Family Medicine 05/20/22
--- OUTSIDE RECORDS SUMMARY | 2025-01-05 13:09 | XMS_ITS | Encounter Summary ---
Author Organization [employer] Address [address] [facility] 7t [place] [address] Care Team Providers Care Rural Route Mail Carrier Name Role Phone [facility] Primary Care Provider [phone] Reason for Visit * Reason Comments Med Refill Encounter Details Date Type Department Care Team (Late st Contact Info) Description 12/17/2023 Refill [facility] [address] [place] [address] [facility] [address] [place] [address] Chronic low back pain, unspecified back pain [...] Description 02/01/2025 9:30 AM EST Office Visit [address] [address] Kelli Horton FNP [address] [place] [address] 02/23/2025 10:00 AM EST Clinical Support [address] [address] Tammie Diaz RN documented as of this encounter Visit Diagnoses Diagnosis Chronic low back pain, unspecified back pain laterality, unspecified whether sciatica present documented in this encounter Additional Health Concerns Assessment Noted Time PHQ-9 Depression Total Score: 0 07/22/19 24 9:10 AM EDT documented as of this encounter Care Teams Rural Route Mail Carrier Relationship Specialty Start Date End Date Kelli Horton FNP [address] [place] [phone] PCP - General Family Medicine 05/20/22 documented as of this encounter
--- OUTSIDE RECORDS SUMMARY | 2025-01-05 13:09 | XMS_ITS | Encounter Summary ---
Author Organization [employer] Address [address] [facility] 7t [place] [address] Care Team Providers Care Staff Research Scientist Name Role Phone Kelli Horton [facility] Primary Care Provider [phone] Reason for Visit * Reason Onset Date Comments Nurse Triage 02/11/2023 Encounter Details Date Type Department Care Team ([facility] st Contact Info) Description 02/11/2023 Telephone [facility] 230 [place] [address] [facility] [address] [place] [address] Nurse Triage Social History Tobacco Use Types [...] past 12 months, has t he electric, [employer] oil or water [employer] threatened to shut off services in your [...] the only possible outcome for this symptom Cypriot Speaker documented in this encounter Plan of Treatment Upcoming Encounters Date Type Department Care Team (Late st Contact Info) Description 02/01/2025 9:30 AM EST Office Visit [address] [address] Kelli Horton FNP [address] [place] [address] 02/23/2025 10:00 AM EST Clinical Support [address] [address] Tammie Diaz RN documented as of this encounter Visit Diagnoses Not on filedocumented in this encounter Additional Health Concerns Assessment Noted Time PHQ-9 Depression Total Score: 21 03/21/ 022 10:03 AM EST documented as of this encounter Care Teams Staff Research Scientist Relationship Specialty Start Date End Date Kelli Horton FNP [address] [place] [address] PCP - General Family Medicine 05/20/22 documented as of this encounter
--- OUTSIDE RECORDS SUMMARY | 2025-01-05 13:09 | XMS_ITS | Encounter Summary ---
Author Organization [employer] Address [address] [facility] 7t [place] [address] Care Team Providers Care Button Tufter Name Role Phone Beatriz Ford [facility] Primary Care Provider Aj bradford SolKelli ren [facility] Primary Care Provider [phone] Encounter Details Date Type Department Care Team ([facility] st Contact Info) Description 03/20/2022 Telephone [facility] 230 [place] [address] Beatriz Ford FNP Social History Tobacco Use [...] other people? Very difficult 03/21/2022 10:03 AM CHAVEZ Jacobsen, A di * Over the past 2 weeks, [...] Description 02/01/2025 9:30 AM EST Office Visit [facility] [address] [place] [address] The ColonyKelli FNP [address] [place] [address] 02/23/2025 10:00 AM EST Clinical Support [facility] [address] [place] [address] Tammie Diaz RN documented as of this encounter Visit Diagnoses Not on filedocumented in this encounter Care Teams Button Tufter Relationship Specialty Start Date End Date Beatriz Ford FNP PCP - General Family Medicine 02/21/22 05/19/22 The ColonyKelli FNP [address] [place] [address] PCP - General Family Medicine 05/20/22 documented as of this encounter
--- OUTSIDE RECORDS SUMMARY | 2025-01-05 13:09 | XMS_ITS | Encounter Summary ---
Author Organization [employer] Address [address] [facility] 7t [place] [address] Care Team Providers Care Rn Cvor Name Role Phone [facility] Primary Care Provider [phone] Reason for Visit * Reason Onset Date Comments Med Refill 03/15/2024 Encounter Details Date Type Department Care Team ([facility] st Contact Info) Description 03/15/2024 Telephone [facility] 230 [place] [address] [facility] 230 [place] [address] Med Refill Social History Tobacco Use Types [...] medication refill. Medications needing refill : HYDROcodone-acetaminophen ([place]) 5-325 MG tablet To be sent to: [facility] [place], [place] - [address] [place] [address] documented in this encounter Plan of Treatment Upcoming Encounters Date Type Department Care Team ([facility] st Contact Info) Description 02/01/2025 9:30 AM EST Office Visit [facility] [address] [place] [address] Kelli Horton FNP [address] [place] [address] 02/23/2025 10:00 AM EST Clinical Support [address] [address] Tammie Diaz RN documented as of this encounter Visit Diagnoses Not on filedocumented in this encounter Additional Health Concerns Assessment Noted Time PHQ-9 Depression Total Score: 0 12/25/19 10:25 AM EDT documented as of this encounter Care Teams Rn Cvor Relationship Specialty Start Date End Date Kelli Horton FNP 230 [place] [address] PCP - General Family Medicine 05/20/22 documented as of this encounter
--- OUTSIDE RECORDS SUMMARY | 2025-01-05 13:09 | XMS_ITS | Encounter Summary ---
Author Organization [employer] Address [address] [facility] 7 [place] [address] Care Team Providers Care Parallel Computing Software Engineer Name Role Phone [facility] Primary Care Provider [phone] Reason for Visit * Reason Onset Date Comments Med Refill 01/28/2024 Encounter Details Date Type Department Care Team ([facility] st Contact Info) Description 01/28/2024 Telephone [facility] 230 [place] [address] [facility] [address] [place] [address] Med Refill Social History Tobacco Use Types [...] Description 02/01/2025 9:30 AM EST Office Visit [address] [address] Kelli Horton FNP [address] [place] [address] 02/23/2025 10:00 AM EST Clinical Support [address] [address] Tammie Diaz, RN documented as of this encounter Visit Diagnoses Not on filedocumented in this encounter Additional Health Concerns Assessment Noted Time PHQ-9 Depression Total Score: 0 12/25/19 24 10:25 AM EDT documented as of this encounter Care Teams Parallel Computing Software Engineer Relationship Specialty Start Date End Date Kelli Horton FNP [address] [place] [address] PCP - General Family Medicine 05/20/22 documented as of this encounter
--- OUTSIDE RECORDS SUMMARY | 2025-01-05 13:09 | XMS_ITS | Encounter Summary ---
Author Organization [employer] Address [address] [facility] 7t [place] [address] Care Team Providers Care Housekeeping Lead Name Role Phone Kelli Horton IT SYSTEMS ANALYST CONSULTANT Primary Care Provider [phone] Encounter Details Date Type Department Care Team ([facility] st Contact Info) Description 02/06/2023 Abstract [facility] [address] [place] [address] Madeleine Valle Social History Tobacco Use Types [...] Description 02/01/2025 9:30 AM EST Office Visit [address] [address] [place]elli [address] [address] 02/23/2025 10:00 AM EST Clinical Support [address] [phone] Tammie Diaz RN documented as of this [...] Noted Time PHQ-9 Depression Total Score: 21 03/21/2 022 10:03 AM EST documented as of this encounter Care Teams Housekeeping Lead Relationship Specialty Start Date End Date Kelli Horton FNP [address] [place] [address] PCP - General Family Medicine 05/20/22 documented as of this encounter
--- OUTSIDE RECORDS SUMMARY | 2025-01-05 13:09 | XMS_ITS | Encounter Summary ---
Author Organization [employer] Address [address] [place] [address] 7t [place] [address] Care Team Providers Care Parks And Recreation Worker Name Role Phone Kelli Horton [facility] Primary Care Provider [phone] Reason for Visit * Reason Comments Med Refill Encounter Details Date Type Department Care Team (Late st Contact Info) Description 12/16/2022 Refill [facility] [address] [place] [address] Name, MD Haroon [address] [place] [address] Chronic low back pain, unspecified back pain [...] 02/01/2025 9:30 AM EST Office Visit [facility] [address] [place] [address] [address] [address] 02/23/2025 10:00 AM EST Clinical Support [facility] [address] [place] [address] Tammie Diaz RN documented as of this encounter Visit Diagnoses Diagnosis Chronic low back pain, unspecified back pain laterality, unspecified whether sciatica present documented in this encounter Additional Health Concerns Assessment Noted Time PHQ-9 Depression Total Score: 21 03/21/ 022 10:03 AM EST documented as of this encounter Care Teams Parks And Recreation Worker Relationship Specialty Start Date End Date Kelli Horton FNP 230 [place] [address] PCP - General Family Medicine 05/20/22 documented as of this encounter
--- OUTSIDE RECORDS SUMMARY | 2025-01-05 13:09 | XMS_ITS | Encounter Summary ---
Author Organization [employer] Address [address] [facility] 7t [place] [address] Care Team Providers Care Campaign Advisor Name Role Phone Kyle [facility] Primary Care Provider [phone] Reason for Visit * Reason Onset Date Comments Med Refill 02/11/2023 Encounter Details Date Type Department Care Team ([facility] st Contact Info) Description 02/11/2023 Telephone [facility] MED[facility] [address] [place] [address] [facility] [address] [place] [address] Med Refill Social History Tobacco Use Types [...] from pt requesting med refill on; HYDROcodone-acetaminophen (Noxapater) 5-325 MG tablet documented in this encounter Plan of Treatment Upcoming Encounters Date Type Department Care Team (Late st Contact Info) Description 02/01/2025 9:30 AM EST Office Visit [facility] [address] [place] [address] [facility] [address] [place] [address] 02/23/2025 10:00 AM EST Clinical Support [address] [address] Tammie Diaz RN documented as of this encounter Visit Diagnoses Not on filedocumented in this encounter Additional Health Concerns Assessment Noted Time PHQ-9 Depression Total Score: 21 022 10:03 AM EST documented as of this encounter Care Teams Campaign Advisor Relationship Specialty Start Date End Date KyleKelli [facility] [address] [place] [address] PCP - General Family Medicine 05/20/22 documented as of this encounter
--- OUTSIDE RECORDS SUMMARY | 2025-01-05 13:09 | XMS_ITS | Encounter Summary ---
Author Organization [employer] Address [address] [facility] 7t [place] [address] Care Team Providers Care Filing Machine Operator Name Role Phone Beatriz Ford [facility] Primary Care Provider Aj bradford Sol [facility] Primary Care Provider [phone] Reason for Visit * Reason Comments Med Refill Encounter Details Date Type Department Care Team ([facility] st Contact Info) Description 04/03/2022 Refill [facility] 230 [place] [address] Name, MD Haroon [address] [place] [address] Chronic pain syndrome Social History Tobacco Use [...] on hydrocodone med , please contact .. (Brazilian speaker) documented in this encounter Plan of Treatment Upcoming Encounters Date Type Department Care Team (Late st Contact Info) Description 02/01/2025 9:30 AM EST Office Visit [address] [address] [address] [address] 02/23/2025 10:00 AM EST Clinical Support [address] [address] Tammie Diaz RN documented as of this encounter Visit Diagnoses Diagnosis Chronic pain syndrome documented in this encounter Additional Health Concerns Assessment Noted Time PHQ-9 Depression Total Score: 21 022 10:03 AM EST documented as of this encounter Care Teams Filing Machine Operator Relationship Specialty Start Date End Date Beatriz Ford FNP PCP - General Family Medicine 02/21/22 05/19/22 HoriconKelli FNP [address] [place] [address] PCP - General Family Medicine 05/20/22 documented as of this encounter
--- OUTSIDE RECORDS SUMMARY | 2025-01-05 13:09 | XMS_ITS | Encounter Summary ---
Author Organization [employer] Address [address] [facility] 7 [place] [address] Care Team Providers Care Cafe Assistant Name Role Phone Osl [facility] Primary Care Provider [phone] Reason for Visit * Reason Onset Date Comments Referral 12/11/2022 Encounter Details Date Type Department Care Team (Late Contact Info) Description 12/11/2022 Telephone [facility] [address] [place] [address] [facility] 230 [place] [address] Referral Social History Tobacco Use Types Packs/Day [...] and medication list to be faxed to [phone]. documented in this encounter Plan of Treatment Upcoming Encounters Date Type Department Care Team (Late st Contact Info) Description 02/01/2025 9:30 AM EST Office Visit [address] [address] Kelli Horton FNP 230 [place] [address] 02/23/2025 10:00 AM EST Clinical Support [address] [address] Tammie Diaz RN documented as of this encounter Visit Diagnoses Not on filedocumented in this encounter Additional Health Concerns Assessment Noted Time PHQ-9 Depression Total Score: 21 022 10:03 AM EST documented as of this encounter Care Teams Cafe Assistant Relationship Specialty Start Date End Date Kelli [place] [address] PCP - General Family Medicine 05/20/22 documented as of this encounter
--- OUTSIDE RECORDS SUMMARY | 2025-01-05 13:09 | XMS_ITS | Encounter Summary ---
Author Organization [employer] Address [address] [place] [address] 7t [place] [address] Care Team Providers Care Information Specialist Name Role Phone [facility] Primary Care Provider [phone] Encounter Details Date Type Department Care Team (Late st Contact Info) Description 09/30/[address] [address] Social History Tobacco Use Types Packs/Day Years [...] Description 02/01/2025 9:30 AM EST Office Visit [phone] [address] 02/23/2025 10:00 AM EST Clinical Support [address] [phone] Tammie Diaz, RN documented as of this [...] documented as of this encounter Care Teams Information Specialist Relationship Specialty Start Date End Date Kelli Horton FNP 230 [place] [address] PCP - General Family Medicine 05/20/22 documented as of this encounter
[2025-01-30 10:41] VITALS: BP 121/58; PULSE 58; RESP 16; O2SAT 96; BMI 37.6
--- NOTE | 2025-01-30 10:52 | HO.ANESPROP2 ---
HPI - Anesthesia Eval Consult details Narrative: Pt cx'd self for family emergency 69yo F for Left Knee Replacement Total, 02/28/25 s/p Right TKA 2020 with block and ? GA Medical clearance 02/01/25 No recent illness No CP/SOB with walking daily GERD: ppi controls Cirrhosis: Follows [facility]. Compensated per yearly visit 02/2024 Asthma-COPD overlap: Ex-smoker, quit 2021. Follows [facility]. Optimized to proceed per 12/2024 office visit. JUSTIN: CPAP QHS CKD: 02/14 pending visit DM2: Does not check POC PONV: discussed low risk with spinal/TIVA/Block Anesthesia Pre-Procedure Meds Is the patient on any of the following meds?: GLP1/DPP4 PMFSH Active Problems Active Problems: All Active Problems (Updated 01/30/25 @ 10:13 by Sarah Jones RN) Preop pulmonary/respiratory exam (Acute) Osteoarthritis of left knee (Acute) Numbness and tingling of right hand (Acute) Left carpal tunnel syndrome (Acute) Environmental allergies (Acute) Personal history of nicotine dependence (Acute) Asthma-COPD overlap syndrome (Acute) Complex regional pain syndrome i of right lower limb (Acute) Status post right rotator cuff repair (Acute) Right rotator cuff tear (Acute) Painful arc syndrome of right shoulder (Acute) Diabetes mellitus (Acute) Frozen shoulder syndrome (Acute) COVID-19 (Acute) COVID-19 (Acute) COVID-19 (Acute) Right bundle branch block (RBBB) determined by electrocardiography (Acute) Chronic pain syndrome (Acute) Right knee pain (Acute) Hamstring tightness of both lower extremities (Acute) Iliotibial band tendonitis of right side (Acute) Localized osteoarthritis of left knee (Acute) Low back pain (Acute) Status post total right knee replacement (Acute) Preop cardiovascular exam (Acute) Chest pain (Acute) History of renal calculi (Acute) Other and unspecified hyperlipidemia (Acute) Primary osteoarthritis of right knee (Acute) JUSTIN (obstructive sleep apnea) (Acute) Primary osteoarthritis of left knee (Acute) Osteoarthritis of hands, bilateral (Acute) Past Medical History Medical History (Updated 02/20/25 @ 13:04 by Coreen Matthew PA-C) Asthma-COPD overlap syndrome Personal history of nicotine dependence Postoperative nausea and vomiting Back pain Varicose vein of leg GERD (gastroesophageal reflux disease) Cirrhosis Bipolar 1 disorder Primary osteoarthritis of left knee Osteoarthritis of hands, bilateral History of COVID-19 RBBB Hx of hepatitis C Asthma Anxiety Elevated cholesterol COVID-19 vaccine series completed JUSTIN (obstructive sleep apnea) Chronic kidney disease Depression Other intervertebral disc displacement, lumbar region Spondylosis of lumbar spine Lumbar facet arthropathy Bilateral primary osteoarthritis of knee Renal stones Essential hypertension Type 2 diabetes mellitus with complication, without long-term current use of insulin Vitamin D deficiency Other chronic pain History of renal calculi Family History Family History Father Diabetes mellitus HTN (hypertension) Mother No problems noted. Family history of problems with anesthesia: No Surgical History Surgical History Hx of shoulder surgery History of carpal tunnel surgery of left wrist History of total right knee replacement (TKR) Hx of dilation and curettage History of laryngoscopy Hx of umbilical hernia repair Hx of arthroscopy of left knee Hx of lithotripsy History of esophagogastroduodenoscopy (EGD) S/P repair of ventral hernia H/O abdominal hysterectomy H/O tubal ligation History of colonoscopy History of Problems with Anesthesia: Yes (PONV) Social History 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:: 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 Meds Allergies Allergy/AdvReac Type Severity Reaction Status Date / Time No Known Allergies (No Known Allergy Verified 02/20/25 10:19 Allergies*) Home Medications ?Medication ?Instructions ?Recorded ?Confirmed ?Last Taken ?Type albuterol sulfate 90 mcg/actuation 90 mcg inhalation Q4-6H PRN 03/21/20 02/20/25 Unknown History aerosol inhaler Wheezing atorvastatin 20 mg tablet 20 mg PO DAILY 03/21/20 02/20/25 11/21/20 07:00 History omeprazole 20 mg capsule,delayed 20 mg PO QAM 03/21/20 02/20/25 11/21/20 07:00 History release amlodipine 2.5 mg tablet 2.5 mg PO DAILY 04/03/20 02/20/25 11/21/20 07:00 History lisinopril 10 1 tab PO DAILY 04/03/20 02/20/25 Unknown History mg-hydrochlorothiazide 12.5 mg tablet montelukast 10 mg tablet 10 mg PO QPM 04/03/20 02/20/25 Unknown History vitamin E (dl, acetate) 180 mg 180 mg PO DAILY 11/22/20 02/20/25 Unknown History (400 unit) capsule darifenacin 15 mg tablet,extended 15 mg PO QAM 06/24/21 02/20/25 Unknown History release 24 hr trazodone 150 mg tablet 300 mg PO BEDTIME 06/24/21 02/20/25 Unknown History tirzepatide 2.5 mg/0.5 mL 2.5 mg subcut QWEEK 01/30/25 01/30/25 Unknown History subcutaneous pen injector (Mounjaro) cholecalciferol (vitamin D3) 25 25 mcg PO DAILY 01/31/25 02/20/25 Unknown History mcg (1,000 unit) tablet (Vitamin D3) trazodone 100 mg tablet 100 mg PO BEDTIME 01/31/25 02/20/25 Unknown History Exam Height,Weight and Vital Signs: Height 4 ft 10 in Weight 81.647 kg Last Vital Signs Pulse 58 01/30/25 10:41 Resp 16 01/30/25 10:41 BP 121/58 L 01/30/25 10:41 Pulse Ox 96 01/30/25 10:41 O2 Del Method Room Air 01/30/25 10:41 Narrative Narrative: US abdomen comp w elastography 03/2024 IMPRESSION: Hepatic steatosis and enlargement of the left lobe of the liver. Lobulated liver contour suggestive of cirrhosis. Airway Mallampati Class: III TM Dist: >3cm Neck ROM: Full Partial: Upper and Lower Heart: RRR Lungs: CTAB Assessment and Plan Assessment Anesthesia Assessment: Anesthesia Plan Discussed and PAT Visit Final Anesthetic Review Family History of Problems with Anesthesia: No History of Problems with Anesthesia: Yes (PONV)
[2025-01-30 12:24] LABS: MRSA Nasal PCR NEGATIVE (Negative); SA Nasal PCR NEGATIVE (Negative)
[2025-02-20 11:40] LABS: MANUAL DIFF FLAG NO
[2025-02-20 12:17] LABS: Hematocrit 36.0 % (37.0-47.0); Hemoglobin 12.5 g/dl (12.0-16.0); Imm Gran Abs Auto 0.01 X10*3/uL (0.00-0.03); Imm Gran Pct Auto 0.2 % (0.0-0.4); Lymphocytes Absolute Auto 2.3 X10*3/uL (1.2-4.9); Mean Corpuscular HGB Conc 34.7 g/dl (31.0-35.0); Mean Corpuscular Hemoglobin 31.3 pg (27.0-33.0); Mean Corpuscular Volume 90.2 fL (80.0-98.0); NRBC Abs Auto 0.000 X10*3/uL (0.0-0.012); NRBC Pct Auto 0.0 /100WBC (0.0-0.2); Platelet Count 234 X10*3/uL (160-400); Red Blood Count 3.99 X10*6/uL (4.20-5.50); White Blood Count 5.8 X10*3/uL (4.8-10.8)
[2025-02-20 12:24] LABS: INTERNATIONAL NORM RATIO 1.0 (0.9-1.1); Prothrombin Time 12.4 SEC (11.2-13.5)
[2025-02-20 12:44] LABS: Anion Gap 10 (12-20); Blood Urea Nitrogen 17 mg/dL (9-16); Calcium 9.2 mg/dL (8.4-10.2); Carbon Dioxide 29 mmol/L (22-29); Chloride 104 mmol/L (96-108); Creatinine Clr Calc Pharmacy 60.8; Estimated Glomerular Filt Rate > 60; Potassium 3.5 mmol/L (3.3-5.1); Sodium 139 mmol/L (135-145)
== END 2025-01-30 00:01 | disposition home or self-care (01) ==
LOC: HO.PAT
PROVIDERS: Physician Assistant; PCP Registered Nurse; Visit Provider Orthopaedic Surgery
DX: Z01.818 Encounter for other preprocedural examination (principal); M17.12 Unilateral primary osteoarthritis, left knee; E11.9 Type 2 diabetes mellitus without complications; Z51.81 Encounter for therapeutic drug level monitoring; Z01.84 Encounter for antibody response examination
CPT/HCPCS: 36415; 80048; 83036; 85025; 85610; 86850; 86900; 86901; 87640; 87641

== ENCOUNTER → 2025-01-30 08:56 | Outpatient (BNVA) | payer OTHER, SELFPAY | PROVIDERS: PCP Registered Nurse | DX: Z01.818 Encounter for other preprocedural examination (principal) ==

== ENCOUNTER 2025-02-10 14:03 | Outpatient (AMB) | payer OTHER, SELFPAY ==
--- OUTSIDE RECORDS SUMMARY | 2025-02-10 14:27 | XMS_ITS | Encounter Summary ---
Author Organization [facility] Address [address] [place] [address] Phone Care Team Providers Care Game Artist Name Role Phone Sol [place] Primary Care Provider Encounter Details Date Type Department Care Team ([facility] Contact Info) Description 12/23/2021 Documentation Only [facility] [address] [place] [address] Shaun Morales PA [address] [place] [address] Social History Tobacco Use Types [...] Visit [facility] [address] [facility] [place] [phone] Danny Mahoney MD [address] [phone] documented as of this encounter Visit Diagnoses Not on filedocumented in this encounter Care Teams Game Artist Relationship Specialty Start Date End Date Sol Kelli [address] [place] [address] PCP - General 11/26/23 documented as of this encounter
--- OUTSIDE RECORDS SUMMARY | 2025-02-10 14:27 | XMS_ITS | Encounter Summary ---
Author Organization [facility] Address [address] [place] [address] Phone Care Team Providers Care Claims Specialist Name Role Phone Sol [place] Primary Care Provider [phone] Encounter Details Date Type Department Care Team ([facility] Contact Info) Description 12/20/2021 Documentation Only [facility] [address] [place] [address] Shaun Morales PA [address] [place] [address] Social History Tobacco Use Types [...] [facility] [address] [place] [id number] Danny Mahoney MD [address] [phone] documented as of this encounter Visit Diagnoses Not on filedocumented in this encounter Care Teams Claims Specialist Relationship Specialty Start Date End Date Sol Kelli [address] [place] [address] PCP - General 11/26/23 documented as of this encounter
--- OUTSIDE RECORDS SUMMARY | 2025-02-10 14:27 | XMS_ITS | Encounter Summary ---
Author Organization [employer] Address [address] [facility] 7t [place] [address] Care Team Providers Care Auto Fleet Maintenance Manager Name Role Phone Sol Kelli LABOR CUSTODIAN Primary Care Provider [phone] Encounter Details Date Type Department Care Team (Late st Contact Info) Description 02/06/2023 Abstract [facility] [address] [place] [address] Madeleine Valle Social History Tobacco Use Types [...] Care Team (Late st Contact Info) Description 02/23/2025 10:00 AM EST Clinical Support [facility] [address] [place] [address] Tammie Diaz RN documented as of this [...] documented as of this encounter Care Teams Auto Fleet Maintenance Manager Relationship Specialty Start Date End Date Kelli Horton FNP [address] [place] [address] PCP - General Family Medicine 05/20/22 documented as of this encounter
--- OUTSIDE RECORDS SUMMARY | 2025-02-10 14:27 | XMS_ITS | Encounter Summary ---
Author Organization [facility] Address [address] [place] [address] Phone Care Team Providers Care Shearer Printed Circuit Boards Name Role Phone Sol [place] Primary Care Provider [phone] Encounter Details Date Type Department Care Team ([facility] Contact Info) Description 12/23/2021 Documentation Only [facility] [address] [place] [address] Shaun Morales PA [address] [place] [address] Social History Tobacco Use Types [...] [facility] [address] [place] [phone] Danny Mahoney MD [address] [phone] documented as of this encounter Visit Diagnoses Not on filedocumented in this encounter Care Teams [employer] Bo[employer] Relationship Specialty Start Date End Date Sol Kelli [address] [place] [address] PCP - General 11/26/23 documented as of this encounter
--- OUTSIDE RECORDS SUMMARY | 2025-02-10 14:27 | XMS_ITS | Encounter Summary ---
Author Organization [facility] Address [address] [place] [address] Phone Care Team Providers Care Account Executive Agribusiness Name Role Phone Sol [place] Primary Care Provider [phone] Encounter Details Date Type Department Care Team ([facility] Contact Info) Description 12/10/2021 Documentation Only [facility] [address] [place] [address] Shaun Morales PA [address] [place] [address] Social History Tobacco Use Types [...] Visit [facility] [address] [place] [facility] [place] [phone] Danny Mahoney MD [address] [phone] documented as of this encounter Visit Diagnoses Not on filedocumented in this encounter Care Teams Account Executive Agribusiness Relationship Specialty Start Date End Date Sol Kelli [address] [place] [address] PCP - General 11/26/23 documented as of this encounter
--- OUTSIDE RECORDS SUMMARY | 2025-02-10 14:27 | XMS_ITS | Encounter Summary ---
Author Organization [employer] Address [address] [facility] 7t [place] [address] Care Team Providers Care Used Car Sales Supervisor Name Role Phone [facility] Primary Care Provider [phone] Reason for Visit * Reason Onset Date Comments Med Refill 02/11/2023 Encounter Details Date Type Department Care Team ([facility] st Contact Info) Description 02/11/2023 Telephone [facility] [address] [place] [address] [facility] [address] [place] [address] Med Refill Social History Tobacco Use Types [...] from pt requesting med refill on; HYDROcodone-acetaminophen (Reading) 5-325 MG tablet documented in this encounter Plan of Treatment Upcoming Encounters Date Type Department Care Team (Late st Contact Info) Description 02/23/2025 10:00 AM EST Clinical Support [facility] [address] [place] [address] Tammie Diaz RN documented as of this encounter Visit Diagnoses Not on filedocumented in this encounter Additional Health Concerns Assessment Noted Time PHQ-9 Depression Total Score: 21 022 10:03 AM EST documented as of this encounter Care Teams Used Car Sales Supervisor Relationship Specialty Start Date End Date Kelli Horton FNP [address] [place] [address] PCP - General Family Medicine 05/20/22 documented as of this encounter
--- OUTSIDE RECORDS SUMMARY | 2025-02-10 14:27 | XMS_ITS | Encounter Summary ---
Author Organization [employer] Address [address] [facility] 7t [place] [address] Care Team Providers Care Chief Ii Dispatcher Name Role Phone [place] [facility] Primary Care Provider [phone] Reason for Visit * Reason Onset Date Comments Nurse Triage 02/11/2023 Encounter Details Date Type Department Care Team ([facility] st Contact Info) Description 02/11/2023 Telephone [facility] [address] [place] [address] [facility] [address] [place] [address] Nurse Triage Social History Tobacco Use Types [...] the only possible outcome for this symptom Greenlandic Speaker documented in this encounter Plan of Treatment Upcoming Encounters Date Type Department Care Team (Late st Contact Info) Description 02/23/2025 10:00 AM EST Clinical Support [facility] [address] [place] [address] Tammie Diaz RN documented as of this encounter Visit Diagnoses Not on filedocumented in this encounter Additional Health Concerns Assessment Noted Time PHQ-9 Depression Total Score: 21 03/21/ 022 10:03 AM EST documented as of this encounter Care Teams Chief Ii Dispatcher Relationship Specialty Start Date End Date Kelli Horton FNP [address] [place] [address] PCP - General Family Medicine 05/20/22 documented as of this encounter
--- OUTSIDE RECORDS SUMMARY | 2025-02-10 14:27 | XMS_ITS | Clinical Summary ---
Author Organization [facility] Address [address] [place] [address] Phone Care Team Providers Care Podiatric Foot And Ankle Specialist Name Role Phone Kelli Horton Primary Care Provider [phone] Allergies Active Allergy Reactions Criticality Noted Date [...] each day 90 tablet 3 5 Active amLODIPine (NORVASC) 2.5 MG tablet TAKE 1 TABLET BY MOUTH EVERY EVENING 30 tablet 11 5 Active Active Problems Problem Noted Date Diagnosed Date Obese class II 02/24/2023 02/24/2023 Patient encounter status 07/28/2022 023 Overview (02/24/2023): Mammo: Ordered today Pap: S/P total hysterectomy for benign reason. Pt does not know if cervix remains. Will schedule follow up pelvic exam C-scope: Previously at [facility]. Date unknown BMD: Routine age 67 Right bundle-branch block 07/22/20222022 Obstructive sleep apnea syndrome 03/21/2022 02/24/2023 Overview (02/24/2023): Has CPAP Chronic low back pain 03/12/2022 02/24/2023 Overview (02/24/2023): Hydrocodone t.i.d as needed. Compliant with [facility] agreement Pain of knee region 03/12/2022 02/24/2023 [...] Exam: [facility] [place] Lipid panel: 03/2022 WNL ASCVD: LDL < [...] [facility] [address] [place] [address] Danny Mahoney MD 12/13/2024 Orders Only [facility] [address] [facility] [address] [place] [address] Jean Coles Chronic kidney disease, stage 2 [...] [facility] [address] [place] [address] Danny Mahoney MD [address] [facility] [address] [place] [address] Health Maintenance Due Date Last [...] Hospital ([id number]) [facility] ([id number]) [place] [address] Care Teams Podiatric Foot And Ankle Specialist Relationship Specialty Start Date End Date [facility] [address] [place] [address] PCP - General 11/26/23
--- OUTSIDE RECORDS SUMMARY | 2025-02-10 14:27 | XMS_ITS | Encounter Summary ---
Author Organization [employer] Address [address] [facility] 7t [place] [address] Care Team Providers Care Boiler House Mechanic Name Role Phone Kelli Horton [facility] Primary Care Provider [phone] Reason for Visit * Reason Comments Med Refill Encounter Details Date Type Department Care Team (Late st Contact Info) Description 12/16/2022 Refill [facility] [address] [place] [address] Name, MD Haroon [address] [place] [address] Chronic low back pain, unspecified back pain [...] Description 02/23/2025 10:00 AM EST Clinical Support [facility] [address] [place] [address] Tammie Diaz RN documented as of this encounter Visit Diagnoses Diagnosis Chronic low back pain, unspecified back pain laterality, unspecified whether sciatica present documented in this encounter Additional Health Concerns Assessment Noted Time PHQ-9 Depression Total Score: 21 022 10:03 AM EST documented as of this encounter Care Teams Boiler House Mechanic Relationship Specialty Start Date End Date Kelli Horton FNP [address] [place] [address] PCP - General Family Medicine 05/20/22 documented as of this encounter
--- OUTSIDE RECORDS SUMMARY | 2025-02-10 14:28 | XMS_ITS | Encounter Summary ---
Author Organization [employer] Address [address] [facility] 7 [place] [address] Care Team Providers Care Kiss Mixer Name Role Phone [facility] Primary Care Provider [phone] Reason for Visit * Reason Onset Date Comments Referral 12/11/2022 Encounter Details Date Type Department Care Team ([facility] st Contact Info) Description 12/11/2022 Telephone [facility] [address] [place] [address] [facility] 230 [place] [address] Referral Social History Tobacco Use Types Packs/Day [...] and medication list to be faxed to [phone]. documented in this encounter Plan of Treatment Upcoming Encounters Date Type Department Care Team (Late st Contact Info) Description 02/23/2025 10:00 AM EST Clinical Support [facility] [address] [place] [address] Tammie Diaz, LADONNA documented as of this encounter Visit Diagnoses Not on filedocumented in this encounter Additional Health Concerns Assessment Noted Time PHQ-9 Depression Total Score: 21 022 10:03 AM EST documented as of this encounter Care Teams Kiss Mixer Relationship Specialty Start Date End Date Kelli Horton FNP [address] [place] [address] PCP - General Family Medicine 05/20/22 documented as of this encounter
--- OUTSIDE RECORDS SUMMARY | 2025-02-10 14:28 | XMS_ITS | Encounter Summary ---
Author Organization [employer] Address [address] [facility] 7t [place] [address] Care Team Providers Care Anesthesiology Teacher Name Role Phone Sol [facility] Primary Care Provider [phone] Encounter Details Date Type Department Care Team (Late st Contact Info) Description 09/30/2022 Abstract [facility] [address] [place] [address] Sol, [address] [address] Social History Tobacco Use Types Packs/Day Years [...] Description 02/23/2025 10:00 AM EST Clinical Support [facility] [address] [place] [address] Tammie Diaz RN documented as of this [...] documented as of this encounter Care Teams Anesthesiology Teacher Relationship Specialty Start Date End Date Kelli Horton FNP [address] [place] [address] PCP - General Family Medicine 05/20/22 documented as of this encounter
--- OUTSIDE RECORDS SUMMARY | 2025-02-10 14:28 | XMS_ITS | Encounter Summary ---
Author Organization [employer] Address [address] [facility] 7t [place] [address] Care Team Providers Care Rivet Hole Puncher Name Role Phone [place] [facility] Primary Care Provider [phone] Reason for Visit * Reason Comments Med Refill Encounter Details Date Type Department Care Team ([facility] st Contact Info) Description 02/08/[address] [facility] [address] [place] [address] [place] [facility] [address] [place] [address] Type 2 diabetes mellitus with stage 3 chronic kidney disease, without long-term current use of insulin, unspecified whether stage 3a or 3b CKD (HCC) Social History Tobacco Use Types Packs/Day Years [...] Description 02/23/2025 10:00 AM EST Clinical Support [address] [address] Tammie Diaz RN documented as of this encounter Goals Goal Patient Goal Type Associated Problems Recent Progress Patient-Stated? Author Help patients manage their type 2 diabetes Care Plan Help patients manage their type 2 diabetes No Sydni Hollins MA Weekly blood pressure task Care Plan Weekly blood pressure task No Sydni Hollins MA Help patients manage their type 2 diabetes Care Plan Help patients manage their type 2 diabetes No Sydni Hollins MA Patient has chronic kidney disease Care Plan Patient has chronic kidney disease No Sydni Hollins MA Weekly blood pressure task Care Plan Weekly blood pressure task No Sydni Hollins MA Patient has chronic kidney disease Care Plan Patient has chronic kidney disease No Sydni Hollins MA Weekly blood pressure task Care Plan Weekly blood pressure task No Marlys Steward Weekly blood pressure task Care Plan Weekly blood pressure task No Marlys Steward Patient has chronic kidney disease Care Plan Patient has chronic kidney disease No Marlys Steward Patient has chronic kidney disease Care Plan Patient has chronic kidney disease No Marlys Steward documented as of this encounter Visit Diagnoses Diagnosis Type 2 diabetes mellitus with stage 3 chronic kidney disease, without long-term current use of insulin, unspecified whether stage 3a or 3b CKD (HCC) documented in this encounter Additional Health Concerns Active Problems Noted Date Diagnosed Date Help patients manage their type 2 diabetes 02/01 Weekly blood pressure task 02/01/2025 Help patients manage their type 2 diabetes 02/01 Patient has chronic kidney disease 02/01/2025 Weekly blood pressure task 02/01/2025 Patient has chronic kidney disease 02/01/2025 Weekly blood pressure task 02/02/2025 Weekly blood pressure task 02/02/2025 Patient has chronic kidney disease 02/02/2025 Patient has chronic kidney disease 02/02/2025 Assessment Noted Time PHQ-9 Depression Total Score: 0 04/04/19 25 11:23 AM EST documented as of this encounter Care Teams Rivet Hole Puncher Relationship Specialty Start Date End Date Kelli Horton FNP [address] [place] [address] PCP - General Family Medicine 05/20/22 documented as of this encounter
--- OUTSIDE RECORDS SUMMARY | 2025-02-10 14:28 | XMS_ITS | Encounter Summary ---
Author Organization [employer] Address [address] [facility] 7t [place] [address] Care Team Providers Care Postal Worker Name Role Phone [place] [facility] Primary Care Provider [phone] Reason for Visit * Reason Onset Date Comments Med Refill 01/28/2024 Encounter Details Date Type Department Care Team ([facility] st Contact Info) Description 01/28/2024 Telephone [facility] MEDICINE [address] [place] [address] [facility] [address] [place] [address] Med Refill Social History Tobacco Use Types [...] Description 02/23/2025 10:00 AM EST Clinical Support [facility] MED[facility] [address] [place] [address] Tammie Diaz RN documented as of this encounter Visit Diagnoses Not on filedocumented in this encounter Additional Health Concerns Assessment Noted Time PHQ-9 Depression Total Score: 0 12/25/19 24 10:25 AM EDT documented as of this encounter Care Teams Postal Worker Relationship Specialty Start Date End Date Kelli Horton FNP [address] [place] [address] PCP - General Family Medicine 05/20/22 documented as of this encounter
--- OUTSIDE RECORDS SUMMARY | 2025-02-10 14:28 | XMS_ITS | Encounter Summary ---
Author Organization [employer] Address [address] [facility] 7t [place] [address] Care Team Providers Care Transit Operator Name Role Phone Beatriz Ford [facility] Primary Care Provider Aj bradford [place] [facility] Primary Care Provider [phone] Reason for Visit * Reason Comments Med Refill Encounter Details Date Type Department Care Team (Late st Contact Info) Description 04/03/2022 Refill [facility] MEDICINE [address] [place] [address] Name, MD Haroon [address] [place] [address] Chronic pain syndrome Social History Tobacco Use [...] encounter Miscellaneous Notes * Telephone Encounter - Madelni English - 04/04/2022 3:31 PM EST Pt requesting status on hydrocodone med , please contact .. (Thai speaker) documented in this encounter Plan of Treatment Upcoming Encounters Date Type Department Care Team (Late st Contact Info) Description 02/23/2025 10:00 AM EST Clinical Support [facility] MEDICINE [address] [place] [address] Tammie Diaz RN documented as of this encounter Visit Diagnoses Diagnosis Chronic pain syndrome documented in this encounter Additional Health Concerns Assessment Noted Time PHQ-9 Depression Total Score: 21 022 10:03 AM EST documented as of this encounter Care Teams Transit Operator Relationship Specialty Start Date End Date Beatriz Ford FNP PCP - General Family Medicine 02/21/22 05/19/22 Kelli Horton FNP [address] [place] [id number] PCP - General Family Medicine 05/20/22 documented as of this encounter
--- OUTSIDE RECORDS SUMMARY | 2025-02-10 14:28 | XMS_ITS | Encounter Summary ---
Author Organization [employer] Address [address] [facility] 7t [place] [address] Care Team Providers Care Theatrical Variety Agent Name Role Phone [facility] Primary Care Provider [phone] Reason for Visit * Reason Comments Med Refill Encounter Details Date Type Department Care Team ([facility] st Contact Info) Description 12/17/[address] [facility] [address] [place] [address] [facility] [address] [facility] [place] [address] Chronic low back pain, unspecified back pain [...] Description 02/23/2025 10:00 AM EST Clinical Support [facility] MEDICINE [address] [place] [address] Tammie Diaz RN documented as of this encounter Visit Diagnoses Diagnosis Chronic low back pain, unspecified back pain laterality, unspecified whether sciatica present documented in this encounter Additional Health Concerns Assessment Noted Time PHQ-9 Depression Total Score: 0 07/22/19 24 9:10 AM EDT documented as of this encounter Care Teams Theatrical Variety Agent Relationship Specialty Start Date End Date Kelli Horton FNP [address] [place] [address] PCP - General Family Medicine 05/20/22 documented as of this encounter
--- OUTSIDE RECORDS SUMMARY | 2025-02-10 14:28 | XMS_ITS | Clinical Summary ---
Author Organization [employer] Address [address] [facility] 7t [place] [address] Care Team Providers Care Gauge Checker Name Role Phone [facility] Primary Care Provider [phone] Allergies Active Allergy Reactions Criticality Noted Date [...] tablet 3 025 Active TRUEplus Lancets 33G [facility] TEST BLOOD SUGAR TWICE DAILY 100 each [...] EVERY EVENING 90 tablet 3 025 Active vitamin E 180 MG (400 [...] TWICE DAILY 16 g 5 025 Active HYDROcodone-patricia taminophen ([place]) 5-325 MG tabletIndicatio ns:Chronic low back pain, unspecified back pain laterality, unspecified whether sciatica present Take 1 tablet by mouth every 12 (twelve) hours if needed for severe pain. 56 tablet 025 Active Mounjaro 2.5 MG/0.5ML solution auto-injectorIn dications:Type 2 diabetes mellitus with stage 3 chronic kidney disease, without long-term current use of insulin, unspecified whether stage 3a or 3b CKD (HCC) INJECT ONE PEN (=2.5MG) SUBCUTANEOUSLY ONCE A WEEK DIRECTED 2 mL 3 025 Active Tirzepatide (Mounjaro) 2.5 MG/0.5ML solution auto-injectorIn dications:Type 2 diabetes mellitus with stage 3 chronic kidney disease, without long-term current use of insulin, unspecified whether stage 3a or 3b CKD (HCC) Inject 2.5 mg under the skin 1 (one) time per week. 2 mL 3 025 2024 Discontinued HYDROcodone-patricia taminophen ([place]) 5-325 MG tabletIndicatio ns:Chronic low back pain, [...] follow up pelvic exam C-scope: Previously at [facility]. Date unknown. Will request records BMD: Routine age 67 Assessment & Plan (05/05/2023 8:28 PM EST): DEXA scan ordered RBBB 07/22/2022 Obstructive sleep apnea syndrome 03/21/2022 Overview (07/28/2022): Has CPAP Chronic low back pain 03/12/2022 Overview (07/28/2022): Hydrocodone t.i.d as needed. Compliant with [employer] agreement Assessment & Plan (05/05/2023 8:15 PM EST): Continue hydrocodone as prescribed. Patient will bring tablets to pharmacy to determine if able to order prior formulation Declines chronic pain group at this time Follow as scheduled with [employer] Chronic pain of right knee 03/12/2022 Overview (07/28/2022): Referred to PT for balance training 06/2022 Type 2 diabetes mellitus, [facility] long-term current use of insulin 10/01/2020 Overview (04/04/2024): Metformin monotherapy CKD stage 3 followed by nephrology Foot Exam: 03/2024 risk 0 Eye Exam: Followed [facility] in [place] Statin: Yes ASA: No PATRICIA/ARB: Yes Encouraged [...] Overview (04/04/2024): Followed by DR. Lora at [facility] GI Hepatic steatosis, hx of chronic HCV [...] Problem Noted Date Diagnosed Date Resolved Date [place] eye disease of right eye 03/05/2023 03/05/2023 Assessment & Plan (03/05/2023 10:51 AM EST): Given antibiotic cream for 5 days Arthritis of left knee 03/21/202207/24 Arthritis of right knee 03/21/2022 05/0 06/2022 Atrophic gastritis 10/14/2021 Asthma 04/15/2021 07/24/2022 Chronic kidney disease, stage 2 (mild) 04/15/2021 07/22/2022 Urinary incontinence 04/15/2021 023 Renal stone 07/14/2019 07/24/2022 CKD (chronic kidney disease) , stage III (CMS/HCC) 07/17/2017 07/22/2022 Fatty liver 07/15/2017 07/24/2022 Knee pain 02/14/2015 07/24/2022 Obesity 02/14/2015 07/24/2022 Increased frequency of urination 02/14/2015 07/24/2022 Type 2 diabetes mellitus 02/14/201506/2022 Chronic kidney disease 09/18/201107/22 Encounters Date Type Department Care Team Description 02/08/2025 Refill [facility] MEDICINE [address] [place] [address] Kelli Horton FNP Type 2 diabetes mellitus with stage 3 chronic kidney disease, without long-term current use of insulin, unspecified whether stage 3a or 3b CKD ([facility]) 02/01/2025 9:30 AM EST Office Visit [facility] MEDICINE [address] [place] [address] Kelli Horton FNP Preoperative clearance (Primary Dx); Chest pain, unspecified type; Type 2 diabetes mellitus with stage 3 chronic kidney disease, without long-term current use of insulin, unspecified whether stage 3a or 3b CKD (HCC); Encounter for immunization; Encounter for vaccination 02/01/2025 Travel 01/30/2025 Orders Only GENERIC EXTERNAL DATA DEPARTMENT Provider, Generic External Data 01/19/2025 Refill [facility] MEDICINE [address] [place] [address] Kelli Horton FNP Chronic low back pain, unspecified back pain laterality, unspecified whether sciatica present 01/19/2025 Orders Only [facility] External Provider, [facility] 01/11/2025 Refill [facility] MEDICINE [address] [place] [address] Kelli Horton FNP Moderate persistent asthma, unspecified whether complicated 12/26/2024 9:00 AM EDT Clinical Support [facility] MEDICINE [address] [place] [address] Tammie Diaz, RN Long-term current use of opiate analgesic (Primary Dx) 12/26/2024 Refill [facility] MEDICINE [address] [place] [address] Tammie Diaz, RN Long-term current use of opiate analgesic (Primary Dx) 12/26/2024 Travel 12/14/2024 Refill [facility] MEDICINE [address] [place] [address] Kelli Horton FNP 12/08/[address] [address] Kelli Horton FNP Preop from Last 3 Months Immunizations Immunization Administration Dates Next Due Hep A, Adult 10/01/2009,02/13/2009 Hep B, adult 06/18/2000,11/30/1999,10/25/1999 Influenza Injectable Quadriv alant Preservative Free IIV4 MDCK 03/05/2020 Influenza injectable quadriv alent IIV4 with preservative 01/11/2018,03/27/2017 Influenza injectable quadriv alent preservative free 04/22/2023,12/16/2021,12/28/2020,02/14 Influenza, High Dose Seasona l, Preservative Free 02/01/2025,12/25/2023,01/21/2018 Influenza, IIV3, injectable 11/21/2021,0 11/22/2019,01/21/2019,12/21 Influenza, Split (incl. veronica fied surface antigen) 01/13/2012 Influenza, Unspecified 11/21/2021 Moderna Covid-19 Vaccine 12+ 07/12/2021, 01/31/2021,06/22/2020,05/25 Pfizer Covid-19 Vaccine 12+ 02/01/2025, Pneumococcal Conjugate PCV 13 03/27/2017 Pneumococcal Conjugate [...] Sign Reading Time Taken Comments Blood Pressure 122/74 02/01/2025 9:38 AM EST Pulse 84 02/01/2025 9:38 AM EST Temperature 36.2 C (97.2 F) 02/01/2025 9:38 AM EST Respiratory Rate 18 02/01/2025 9:38 AM EST Oxygen Saturation 98% 05/13/2024 8:49 AM EST Inhaled Oxygen Concentration - - Weight 82.9 kg (182 lb 12.8 oz) 02/01/2025 9:38 AM EST Height 147.3 cm (4' 10 ) 02/01/2025 9:38 AM EST Body Mass Index 38.21 02/01/2025 9:38 AM EST Plan of Treatment Upcoming Encounters Date Type Department Care Team (Late st Contact Info) Description 02/23/2025 10:00 AM EST Clinical Support [facility] MEDICINE [address] [place] [address] Tammie Diaz, RN Health Maintenance Due Date Last Done Comments CT Colonography 1955 FIT DNA/Cologuard 1955 FIT 1957 FOBT 1955 Sigmoidoscopy 1957 Alcohol/Substance Use Screening 1969 Eye Exam 03/23/2025 03/23/2023 Depression Screening 04/04/2025 04/04/2024, 04/04/19 25 Diabetes: Foot Exam 04/04/2025 04/04/2024, 04/04/2024, 04/04/2024, Additional history exists Lipid Panel 06/24/2025 06/24/2024, 04/23, 03/25/2022, Additional history exists COVID-19 Vaccine ( season) 2025 02/01/2025, 12/25/2023, 07/12/2021, Additional history exists Diabetes: Hemoglobin A1C 08/01/2025 025, 10/18/2024, 04/04/2024, Additional history exists Mammogram 08/11/2025 08/11/2024, 05/22, 05/22/2022, Additional history exists SDOH Screening 10/18/2025 10/18/2024 Tobacco Screening 02/02/2026 02/02/2025 Colonoscopy 05/03/2028 05/03/2018 Colorectal Cancer Screening 05/03/2028 [...] or older Completed 05/04/2023 Influenza Vaccine Completed 02/01/2025, , 04/22/2023, Additional history exists HIB Vaccines Aged Out [...] on patient's age to complete this topic Goals Goal Patient Goal Type Associated Problems [...] has chronic kidney disease No Marlys Steward Weekly blood pressure task Care Plan Weekly blood pressure task No Tammie Diaz RN Weekly blood pressure task Care Plan Weekly blood pressure task No Tammie Diaz RN Patient has chronic kidney disease Care Plan Patient has chronic kidney disease No Tammie Diaz RN Patient has chronic kidney disease Care Plan Patient has chronic kidney disease No Tammie Diaz RN Procedures Procedure Name Priority Date/Time Associated Diagnosis Comments ECG 12-LEAD Routine 02/02/2025 6:30 AM EST Preoperative clearance Chest pain, unspecified type POCT GLYCATED HEMOGLOBIN, TOTAL Routine 02/01/2025 9:50 AM EST Type 2 diabetes mellitus with stage 3 chronic kidney disease, without long-term current use of insulin, unspecified whether stage 3a or 3b CKD (HCC) POCT GLUCOSE Routine 02/01/2025 9:49 AM EST Type 2 diabetes mellitus with stage 3 chronic kidney disease, without long-term current use of insulin, unspecified whether stage 3a or 3b CKD (HCC) MRSA NASAL SCREEN Routine 01/30/2025 10: [address] KNEE WO CONTRAST LEFT Routine 01/19/2025 [...] Recently Relevant to Health Maintenance Results * ECG 12 lead (02/02/2025 6:30 AM EST) Narrative [facility] - 02/02/2025 6:30 AM EST RBBB consistent with prior tracings [facility] ECG ORDERABLES Final Result * POCT Hgb A1c (02/01/2025 9:50 AM EST) Hemoglobin A1C 5.3 4.0 - 5.7 % Blood 02/01/2025 9:50 AM EST Result [facility] POINT OF CARE TEST ENTER/EDIT ORDERABLES Final Result * POCT Glucose (02/01/2025 9:49 AM EST) Pathologist [facility] Glucose Blood, POC 125 60 - 200 mg/dL Blood Capillary blood specimen / Unknown 02/01/2025 9:49 AM EST Result [facility] POINT OF CARE TEST ENTER/EDIT ORDERABLES Final Result * MRSA Nasal Screen (01/30/2025 10:30 AM EST) MRSA Nasal PCR NEGATIVE Negative [facility] SA Nasal PCR NEGATIVE Negative [facility] MRSA Interpretation SEE NOTE [facility] Comment:MRSA target DNA not detected; SA target DNA not detected.A MRSA NEGATIVE, SA NEGATIVE test result does not precludeMRSA or SA nasal colonization. 01/30/2025 10:3 0 AM EST 01/30/2025 11:14 AM EST us Generic External Data Provider LAB MICROBIOLOGY - GENERAL ORDERABLES Final Result Performing Organization Address City/State/[facility] Co de Phone Number [facility] [address] [place] [phone] * CT Kne w/o Contrast Left (01/19/2025 9:28 AM EDT) Anatomical Region Laterality Modality Lower Extremities, Knee Left Computed Tomography 01/19/2025 9:28 AM EDT Narrative 01/19/2025 10:12 AM EDT [address] [address] [address] Scan Report Signed Patient: Ludivina Hussein MR#: [id number] : 1955 Acct:[id number] Age/Sex: 69 / F ADM Date: 01/19/25 Loc: HO.CT Attending Dr: David Farris PA-C Ordering Physician: David Farris PA-C Date of Service: 01/19/25 Procedure(s): CT knee LT wo IV con Accession Number(s): [id number] cc: David Farris PA-C; [facility] Hospital Report Number: [id number]: Total DLP = 336.00 mGy-cm Reason for [...] left knee were obtained as part of [facility] protocol for patient to have a left knee prosthesis. No relating needed. Electronically signed by: Hernesto Muniz MD 01/19/2025 10:10 AM EDT RP Dictated By: Hernesto Muniz MD Signed By: <Electronically signed by Hernesto Muniz MD in OV> 01/19/25 1010 DD/ 0928 TD/TT: 01/19/25 09 Location Analyst: [facility] Procedure Note Donotuseinterpreter, Image - 01/19/[address] [address] [address] Scan Report Signed Patient: Ludivina Hussein [facility]#: [id number] : 8Acct:[id number] Age/Sex: 69 / FADM Date: 01/19/25 Loc: HO.CT Attending Dr: David Farris PA-C Ordering Physician: David Farris PA-C Date of Service: 01/19/25 Procedure(s): CT knee LT wo IV con Accession Number(s): [id number] cc: David Farris PA-C; [facility] Hospital Report Number: [id number]: Total DLP = 336.00 mGy-cm Reason for Exam: M17.12 - Unilateral primary osteoarthritis, left knee EXAMINATION: CT KNEE WITHOUT CONTRAST, LEFT CLINICAL INFORMATION: Unilateral primary osteoarthritis COMPARISON: Left knee x-ray 08/26/2023 TECHNIQUE: Axial 2 mm thin images of left knee were performed as part of [facility] protocol. This CT examination was performed [...] left knee were obtained as part of biomed protocol for patient to have a left knee prosthesis. No relating needed. Electronically signed by: Hernesto Muniz MD 01/19/2025 10:10 AM EDT Dictated By: Hernesto Muniz MD Signed By: <Electronically signed by Hernesto Muniz MD in OV> 01/19/25 1010 DD/ 7 TD/TT: 01/19/25 0943 Location Analyst: [facility] External Provider IMG CT PROCEDURES Edited Result - Final * (ABNORMAL) POCT ANDRE-14 Urine Drug Screen (12/26/2024 9:22 AM EDT) THC Negative Negative Cocaine Screen, Urine Negative Negative Opiate Screen, Urine Positive(A) Negative Comment:[employer] pt, on hydrocodo ne Methamphetamine Screen Urine [...] - 12/26/2024 9:22 AM EDT UTOX cup Lot#[id number] Exp. 12/27/25 Internal Pass Control [facility] DISASTER RECOVERY MANAGER POINT OF CARE TEST ENTER/EDIT ORDERABLES Final Result * BI Mammogram Screening Tomosynthesis Bilateral (08/11/2024 9:00 AM EDT) Anatomical Region Laterality Modality Breast Bilateral Mammography 08/11/2024 9:00 AM EDT Narrative 08/19/2024 5:38 PM EDT [address] [place] [address] Mammography Report Signed Patient: Ludivina Hussein N MR#: [id number] : 1955 Acct:[id number] Age/Sex: 68 / F ADM Date: 08/11/24 Loc: HOJannetMAMMO Attending Dr: Kelli Horton DISASTER RECOVERY MANAGER Ordering Physician: Kelli Horton Results: 1Nega tive Date of Service: 08/11/24 Follow Up: 1 Year From Orig inal Mammogram Procedure(s): MM tomosynthesis screening BI Accession Number(s): [id number] cc: Kelli Horton DISASTER RECOVERY MANAGER EXAMINATION: MM SCREENING DIGITAL BREAST TOMOSYNTHESIS, BILATERAL [...] 08/19/24 1735 DD/ 0900 TD/TT: 08/11/24 0915 Location Analyst: Procedure Note Donotuseinterpreter, Image - 08/19/2024 [facility] [address] [place] [address] [place] [address] Mammography Report Signed Patient: Ludivina Hussein NMR#: [id number] : 1955cct:[id number] Age/Sex: 68 / FADM Date: 08/11/24 Loc: MAGDA.MAMMO Attending Dr: Kelli Buellton DISASTER RECOVERY MANAGER Ordering Physician: Kelli Horton FNPResults: 1Nega tive Date of Service: 08/11/24Follow Up: 1 Year From Orig inal Mammogram Procedure(s): MM tomosynthesis screening BI Accession Number(s): [id number] cc: [place]ell[place],Kelli DISASTER RECOVERY MANAGER EXAMINATION: MM SCREENING DIGITAL BREAST TOMOSYNTHESIS, BILATERAL [...] 08/19/24 1735 DD/ 0900 TD/TT: 08/11/24 0915 Location Analyst: [facility] DISASTER RECOVERY MANAGER IMG BI PROCEDURES Edited Resu lt - Final * Lipid Panel, Standard (06/24/2024 10:01 AM EDT) Triglycerides 93 <150 mg/dL [facility] Comment:Desirable Triglyceri de: less than 150 mg/dLBorderline High Triglyceride 150-199 mg/dLHigh Triglyceride: 200-499 mg/dLVery High Triglyceride: greater than or equal to 5OO mg/dL Cholesterol 131 <200 mg/dL [facility] Comment:Desirable Cholestero l: less than 200 mg/dLBorderline High Cholesterol: 200-239 mg/dLHigh Cholesterol: greater than 239 mg/dL LDL Cholesterol Calculated 64 <100 mg/dL [facility] Comment:Desirable LDL: less than 100 mg/dLNear Optimal/Above Optimal LDL: 110- 129 mg/dLBorderline High LDL: 130-159 mg/dLHigh LDL: 160-189 mg/dLVery High LDL: greater than or equal to 190 mg/dL HDL Cholesterol 49 >40 mg/dL [facility] Comment:Desirable HDL: great er than 40 mg/dL Note: This HDL assay may give artificially low results in patients with liver disease. 06/24/2024 10:0 1 AM EDT 06/24/2024 11:18 AM EDT [facility] DISASTER RECOVERY MANAGER LAB BLOOD ORDERABLES Final Re sult [facility] [address] [place] [phone] * Hm Colonoscopy (05/03/2018) Colonoscopy Normal Normal Narrative Madeleine Valle - 05/03/2018 Repeat in 10 years Historical Provider HEALTH MAINTENANCE Final Result * HPV mRNA E6/E7 (03/03/2016 11:45 AM EST) HPV mRNA E6/E7 Not Detected NOT DETECTED [facility] Comment: This test was performed using the APTIMA(R) HPV Assay ([employer] This assay detects E6/E7 viral messenger RNA (mRNA) from 14 high-risk HPV types (16,18,31,33,35,39,45,51, 52,56,58,59,66,68). For additional information please refer to: http://education.MyHealthTeams/faq/OCK837i8 (This link is being provided for informational/ educational purposes only.) Test Performed by [employer] [facility], [address] [place] [address] Leonardo Cano M.D., Ph.D., Director of Laboratories , [facility] [id number] Please note: Effective 12/03/2015, HPV testing will be performed using [employer] APTIMA test which targets mRNA. Detecting mRNA instead of DNA, as in older methods, offers significant improvements in specificity. 03/03/2016 11:4 5 AM EST us Nandini Biswas NP HISTORICAL/NON ORDERABLE LABS Fi nal Result [facility] Anywhere [address] from Last 3 Months or Most Recently Relevant to Health Maintenance Additional Health Concerns Active Problems Noted Date [...] 02/02/2025 Patient has chronic kidney disease 02/02/2025 Weekly blood pressure task 02/09/2025 Weekly blood pressure task 02/09/2025 Patient has chronic kidney disease 02/09/2025 Patient has chronic kidney disease 02/09/2025 Insurance [facility] [employer] Member Subscriber Plan / Payer (Ef fective 2023-Present) Name:Ludivina Hussein Relation to Subscriber:Self Name:Ludivina Hussein Payer ID:Not on file Group ID:[id number] Type:Not on file Address: [address] [employer] [place] [id number] Care Teams Gauge Checker Relationship Specialty Start Date End Date Kelli Horton FNP [address] [place] [address] PCP - General Family Medicine 05/20/22
--- OUTSIDE RECORDS SUMMARY | 2025-02-10 14:28 | XMS_ITS | Encounter Summary ---
Author Organization [employer] Address [address] [facility] [address] [place] [address] Care Team Providers Care Educational Assistant Name Role Phone Beatriz Ford [facility] Primary Care Provider Aj bradford Walthall [facility] Primary Care Provider [phone] Encounter Details Date Type Department Care Team ([facility] st Contact Info) Description 03/20/2022 Telephone [facility] MEDICINE [address] [place] [address] Beatriz Ford FNP Social History Tobacco Use [...] 02/22 10:03 AM EST Mildred Jacobsen * How difficult have these problems made it for you to do your work, take care of things at home, or get along with other people? Answer Date of Assessment Author Eddie difficult 03/21/2022 10:03 AM Black Verma * Over the past 2 weeks, how [...] 02/23/2025 10:00 AM EST Clinical Support [facility] MEDICINE [address] [place] [address] [phone] Tammie Diaz, RN documented as of this encounter Visit Diagnoses Not on filedocumented in this encounter Care Teams Educational Assistant Relationship Specialty Start Date End Date Beatriz Ford FNP PCP - General Family Medicine 02/21/22 05/19/22 [facility], PRODUCT SUPPORT ANALYST [address] [place] [address] PCP - General Family Medicine 05/20/22 documented as of this encounter
--- OUTSIDE RECORDS SUMMARY | 2025-02-10 14:28 | XMS_ITS | Encounter Summary ---
Author Organization [employer] Address [address] [facility] [address] [place] [address] Care Team Providers Care Commutator Tester Name Role Phone [facility] Primary Care Provider [phone] Reason for Visit * Reason Onset Date Comments Med Refill 03/15/2024 Encounter Details Date Type Department Care Team ([facility] st Contact Info) Description 03/15/2024 Telephone [facility] MEDICINE [address] [place] [address] [facility] [address] [place] [address] Med Refill Social History Tobacco Use Types [...] medication refill. Medications needing refill : HYDROcodone-acetaminophen (Wallis) 5-325 MG tablet To be sent to: [facility] - [place], [place] - [address] [place] [address] documented in this encounter Plan of Treatment Upcoming Encounters Date Type Department Care Team (Late st Contact Info) Description 02/23/2025 10:00 AM EST Clinical Support [facility] MEDICINE [address] [place] [address] Tammie Diza, RN documented as of this encounter Visit Diagnoses Not on filedocumented in this encounter Additional Health Concerns Assessment Noted Time PHQ-9 Depression Total Score: 0 12/25/19 10:25 AM EDT documented as of this encounter Care Teams Commutator Tester Relationship Specialty Start Date End Date Kelli Horton FNP [address] [place] [address] PCP - General Family Medicine 05/20/22 documented as of this encounter
--- NOTE | 2025-02-10 14:32 | MHC.OFFVIS ---
Vital Signs 02/10/25 14:33 Height 4 ft 11 in Weight 181 lb 10.574 oz BMI 36.7 BP 102/56 L Blood Pressure Location Lt brachial Position Sitting Pulse 81 Pulse Source Monitor Intake Visit Reasons: Preop/ ortho/ total knee/ 02/28 surgery (NS) Cloud Engagement Partner Required: Yes Cloud Engagement Partner Services: Cloud Engagement Partner Present Cloud Engagement Partner Name: Kerrie Hudson [phone] Accompanied by: Self / Same As Patient Allergies No Known Allergies (No Known Allergies*) Allergy (Verified 02/10/25 14:36) HPI Comments Details: This is a 69-year-old female patient coming in for a preop cardiac risk stratification for her upcoming total left knee replacement. A filler operator was used throughout the visit. Patient with a history of tension, hyperlipidemia, diabetes, and obesity. Patient has been seen previously in the office for preop risk stratification as well as chest pain for which patient had undergone a coronary CTA in 2019 and a stress test in 2021. Today, patient reports feeling well overall without any cardiac symptoms of exertional chest pain, shortness of breath, palpitations, dizziness, orthopnea, PND, leg edema, presyncope or syncope. Patient is reporting compliance with all her medications. PENDING SALE TO [facility] Medical History Postoperative nausea and vomiting Back pain Varicose vein of leg GERD (gastroesophageal reflux disease) Cirrhosis Bipolar 1 disorder Primary osteoarthritis of left knee Osteoarthritis of hands, bilateral History of COVID-19 RBBB Hx of hepatitis C Asthma Anxiety Elevated cholesterol COVID-19 vaccine series completed JUSTIN (obstructive sleep apnea) Chronic kidney disease Depression Other intervertebral disc displacement, lumbar region Spondylosis of lumbar spine Lumbar facet arthropathy Bilateral primary osteoarthritis of knee Renal stones Essential hypertension Type 2 diabetes mellitus with complication, without long-term current use of insulin Vitamin D deficiency Other chronic pain History of renal calculi Surgical History Hx of shoulder surgery History of carpal tunnel surgery of left wrist History of total right knee replacement (TKR) Hx of dilation and curettage History of laryngoscopy Hx of umbilical hernia repair Hx of arthroscopy of left knee Hx of lithotripsy History of esophagogastroduodenoscopy (EGD) S/P repair of ventral hernia H/O abdominal hysterectomy H/O tubal ligation History of colonoscopy Family History Father Diabetes mellitus HTN (hypertension) Mother No problems noted. 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 Review of Systems Const Denies daytime sleepiness, Denies difficulty sleeping, Denies snoring, Denies stops breathing during sleep and Denies weakness Card Denies chest pain, Denies rapid heart rate, Denies irregular heart rhythm, Denies claudication, Denies leg edema, Denies lightheadedness, Denies palpitations, Denies dyspnea, Denies dyspnea on exertion, Denies orthopnea, Denies paroxysmal nocturnal dyspnea and Denies slow heart rate Resp Denies cough, Denies dyspnea, Denies dyspnea on exertion and Denies snoring GI Reports no additional complaints, Denies hematochezia, Denies change in stool character and Denies dyspepsia Musc Denies abnormal gait, Denies muscle weakness and Denies numbness Neuro Denies abnormal gait, Denies numbness and Denies weakness Endo Denies palpitations Physical Exam Vital Signs: Last Vital Signs Pulse 81 02/10/25 14:33 BP 102/56 L 02/10/25 14:33 BMI result Body Mass Index 36.7 Const General: cooperative, healthy appearing, comfortable and no acute distress Orientation/consciousness: patient oriented x3 HEENT Head: Yes normal to inspection Neck Neck: Yes normal visual inspection, Yes trachea midline and Yes supple Chest Chest palpation & inspection: normal inspection of the chest Resp Effort & Inspection: normal respiratory effort Auscultation: clear to auscultation bilaterally, no crackles, no rales, no rhonchi and no wheezes Cardio Jugular venous distension: no JVD Palpation: normal PMI Rate: regular rate Rhythm: regular rhythm Heart sounds: S1 normal heart sound present, S2 normal heart sound present, no click, no gallops, no murmurs and no rubs Peripheral pulses: Peripheral pulses 2+ throughout GI Inspection: Yes normal to inspection Palpation (GI): Soft to palpation Auscultation: normal bowel sounds Skin General skin exam: no rashes or lesions noted Neuro General: patient oriented x3 Extrem General: Yes normal to inspection, No no pedal edema and No calf tenderness Psych Appearance: grossly normal Mental Status: mental status grossly normal Speech and movement: Normal speech and movement present Office Procedures EKG Details: EKG today showed normal sinus rhythm, rate 81 beats per minute, right bundle branch block, nonspecific STT wave, [place], [place] [id number], Complete Assessment & Plan Assessment & Plan (1) Preop cardiovascular exam: Code(s): Z01.810 - Encounter for preprocedural cardiovascular examination Category: Medical (2) Right bundle branch block (RBBB) determined by electrocardiography: Code(s): I45.10 - Unspecified right bundle-branch block Category: Medical Plan 10/16/2021-patient had undergone a myocardial perfusion study that showed normal perfusion. 10/29/2021-echo study showed a normal LV systolic function with an ejection fraction between 55-60%. And most recently on 05/19/2024, patient underwent a chest CTA that showed no coronary artery calcifications. EKG today is normal with chronic right bundle branch block. Clinically stable and without any cardiac symptoms. Blood pressure is within normal limits. Continue current regimen for hypertension. Most recent LDL at 64. Continue statin therapy. Continue management of diabetes. Patient states that other than her left knee issue, she is able to climb up a flight of stairs without any cardiovascular symptoms indicating a functional capacity of at least 4.0 Mets. Given this fact, patient can proceed with the upcoming knee replacement with the consideration that patient is at a low cardiac risk. Reviewed the case with Dr. Weinstein. Advised on heart healthy diet, regular exercise, losing weight, med compliance, and management of vascular risk factors. Follow up on an as-needed basis. In the interim, patient will call the office with any concerns or change in symptoms. This note was generated using voice recognition software. While every effort has been made to ensure accuracy and proper monitor worker, there may be occasional errors that could affect the content or meaning of the described symptoms. Orders: Orders AMB EKG-In Office Today Z01.810 - Encounter for preprocedural cardiovascular examination Coding Level of Care Code Est Pt Level 4 (51832) Complex visit Add On G2211 Diagnoses Preop cardiovascular exam Z01.810 Right bundle branch block (RBBB) determined by electrocardiography I45.10 CPT Codes EKG - CPT: [id number], Complete ([id number]) Time Spent (min) 31 Comment Time spent in reviewing the chart, test results, assessment, counseling and documentation.
[2025-02-10 14:33] VITALS: BP 102/56; PULSE 81; BMI 36.7
== END 2025-02-10 15:03 | disposition home or self-care (01) ==
LOC: HO.HCS 14:03
PROVIDERS: PCP Registered Nurse
DX: Z01.810 Encounter for preprocedural cardiovascular examination (principal); I45.10 Unspecified right bundle-branch block
CPT/HCPCS: 93010; 99214; G2211

== ENCOUNTER → 2025-02-10 14:03 | Outpatient (BNVA) | payer OTHER, SELFPAY | PROVIDERS: PCP Registered Nurse | DX: Z01.810 Encounter for preprocedural cardiovascular examination (principal); I45.10 Unspecified right bundle-branch block | CPT/HCPCS: 93005; 99212 ==

== ENCOUNTER 2025-02-20 09:44 | Outpatient (AMB) | payer OTHER, SELFPAY ==
--- NOTE | 2025-02-20 07:59 | MHC.OFFVIS ---
Vital Signs 02/20/25 10:19 Height 4 ft 11 in Weight 181 lb BMI 36.6 Intake Visit Reasons: Pre-Op: L TKA w/NE 02/28/25 Intake Note: Ludivina is a 69 year old female who presents today for a preoperative visit to discuss upcoming left TKA, scheduled with Dr. Solorzano on 02/28/25. Pain management agreement reviewed and signed. Customer Service Attendant Required: Yes Customer Service Attendant Services: Customer Service Attendant Present Customer Service Attendant Name: Grisel ID#[id number] Allergies No Known Allergies (No Known Allergies*) Allergy (Verified 02/20/25 10:19) Medication List - Last Reconciled 02/20/25 by David Farris PA-C albuterol sulfate 90 mcg/actuation 90 mcg inhalation Q4-6H PRN amlodipine 2.5 mg PO DAILY atorvastatin 20 mg PO DAILY calcium carbonate-vitamin D3 600 mg-10 mcg (400 unit) 1 tab PO QAM cholecalciferol (vitamin D3) (Vitamin D3) 25 mcg PO DAILY darifenacin ER 15 mg PO QAM yisfklmgrsf-bcdkgddor-coeoieyg 200-62.5-25 mcg (Trelegy Ellipta) 1 inh inhalation DAILY [Folding Front Wheeled walker Duration: 99 days] hydrocodone-acetaminophen 5-325 mg 1 tab PO Q6H PRN lisinopril-hydrochlorothiazide 10-12.5 mg 1 tab PO DAILY montelukast 10 mg PO QPM omeprazole 20 mg PO QAM tirzepatide (Mounjaro) 2.5 mg subcut QWEEK trazodone 100 mg PO BEDTIME trazodone 300 mg PO BEDTIME vitamin E (dl, acetate) 180 mg PO DAILY HPI HPI Pre-Op: L TKA w/NE 02/28/25: Details: 69-year-old female presents to the office today for orthopedic clearance. She is scheduled for a left total knee arthroplasty with Dr. Solorzano on 02/28/2025. She was seen by Dr. Solorzano on 01/14/2024 with complaints of left knee pain which has been increasing and worsening her ability to perform daily activities. She was taking [place] 5/325 b.i.d. along with Tylenol b.i.d. with no relief. She had a right total knee arthroplasty performed by Dr. Solorzano on 11/21/2020 without complications. She states she is now unable to walk comfortably without pain due to the left knee. She uses an assistive device. She feels her left knee limits her activity and decreases her quality of life. Right TKA implants: Wells triathalon press fit CR 2/3/9cr/32a Patient lives alone and a handicapped accessible apartment. Patient was seen by her neck band maker on 01/18/2025 Dr. Jeffers. She has a history of asthma/COPD and obstructive sleep apnea. She uses a CPAP machine. It was noted at the time of her visit she is a low risk for pulmonary perioperative complications for the proposed knee surgery either under general anesthesia or monitored anesthesia care. PCP clearance obtained on 02/01/2025, Kelli [place] ArthurAL[place]A: 69-year-old female patient with JUSTIN, JOSHUA cirrhosis, hypertension, type 2 diabetes with CKD and asthma who presents for preop evaluation prior to the follow up procedure Preoperative assessment and plan: Provider considers procedure to be medium risk Reviewed cardiac risk factors based on our see RI. Patient has 0 risk factors corresponding to 0.4% of a major cardiac event during surgery EKG in office shows RBBB consistent with previous tracings however patient reports persistent intermittent chest pain occurring several times a week with associated shortness of breath. Given patient is symptomatic recommend referral to cardiac clearance prior to surgery. Patient may safely hold all medications day of surgery as instructed by surgical team Patient will contact [facility] with questions or concerns Patient was seen by Cardiology she on 02/10/2025, Yasmani Daigle: This is a 69-year-old female patient coming in for a preop cardiac risk stratification for her upcoming total left knee replacement. A hearing and speech assistant was used throughout the visit. Patient with a history of tension, hyperlipidemia, diabetes, and obesity. Patient has been seen previously in the office for preop risk stratification as well as chest pain for which patient had undergone a coronary CTA in 2019 and a stress test in 2021. Today, patient reports feeling well overall without any cardiac symptoms of exertional chest pain, shortness of breath, palpitations, dizziness, orthopnea, PND, leg edema, presyncope or syncope. Patient is reporting compliance with all her medications. 10/16/2021-patient had undergone a myocardial perfusion study that showed normal perfusion. 10/29/2021-echo study showed a normal LV systolic function with an ejection fraction between 55-60%. And most recently on 05/19/2024, patient underwent a chest CTA that showed no coronary artery calcifications. EKG today is normal with chronic right bundle branch block. Clinically stable and without any cardiac symptoms. Blood pressure is within normal limits. Continue current regimen for hypertension. Most recent LDL at 64. Continue statin therapy. Continue management of diabetes. Patient states that other than her left knee issue, she is able to climb up a flight of stairs without any cardiovascular symptoms indicating a functional capacity of at least 4.0 Mets. Given this fact, patient can proceed with the upcoming knee replacement with the consideration that patient is at a low cardiac risk. Reviewed the case with Dr. Weinstein. Advised on heart healthy diet, regular exercise, losing weight, med compliance, and management of vascular risk factors. Follow up on an as-needed basis. In the interim, patient will call the office with any concerns or change in symptoms. This note was generated using voice recognition software. While every effort has been made to ensure accuracy and proper senior medical transcriptionist, there may be occasional errors that could affect the content or meaning of the described symptoms. [facility] Medical History Postoperative nausea and vomiting Back pain Varicose vein of leg GERD (gastroesophageal reflux disease) Cirrhosis Bipolar 1 disorder Primary osteoarthritis of left knee Osteoarthritis of hands, bilateral History of COVID-19 RBBB Hx of hepatitis C Asthma Anxiety Elevated cholesterol COVID-19 vaccine series completed JUSTIN (obstructive sleep apnea) Chronic kidney disease Depression Other intervertebral disc displacement, lumbar region Spondylosis of lumbar spine Lumbar facet arthropathy Bilateral primary osteoarthritis of knee Renal stones Essential hypertension Type 2 diabetes mellitus with complication, without long-term current use of insulin Vitamin D deficiency Other chronic pain History of renal calculi Surgical History Hx of shoulder surgery History of carpal tunnel surgery of left wrist History of total right knee replacement (TKR) Hx of dilation and curettage History of laryngoscopy Hx of umbilical hernia repair Hx of arthroscopy of left knee Hx of lithotripsy History of esophagogastroduodenoscopy (EGD) S/P repair of ventral hernia H/O abdominal hysterectomy H/O tubal ligation History of colonoscopy Family History Father Diabetes mellitus HTN (hypertension) Mother No problems noted. 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 Review of Systems Const All systems reviewed & are unremarkable except as noted in HPI and below Physical Exam Vital Signs: BMI result Body Mass Index 36.6 Const General: cooperative, healthy appearing, comfortable, no acute distress, well developed and alert Orientation/consciousness: patient oriented x3 HEENT Head: Yes normal to inspection, Yes normocephalic and Yes atraumatic Eyes General: appearance normal, both eyes and all related structures Neck Neck: Yes normal visual inspection and Yes no lymphadenopathy Resp Effort & Inspection: normal respiratory effort and able to speak in complete sentences Cardio Rate: regular rate Peripheral pulses: Peripheral pulses 2+ throughout GI Inspection: Yes normal to inspection Palpation (GI): Soft to palpation Skin General skin exam: no rashes or lesions noted Neuro General: patient oriented x3 Extrem Other: Left knee skin is intact with no open wounds or abrasions. She has full range of motion 0-95 degrees. Tenderness over the medial joint line. Calf is supple and nontender neurovascularly intact. No evidence of pitting edema or venous stasis. Psych Appearance: grossly normal Mental Status: mental status grossly normal Assessment & Plan Assessment & Plan (1) Osteoarthritis of left knee: Code(s): M17.12 - Unilateral primary osteoarthritis, left knee Category: Medical Qualifiers: Osteoarthritis type: primary Qualified Code(s): M17.12 - Unilateral primary osteoarthritis, left knee Plan: Ms Hussein has exhausted all conservative measures consisting of lifestyle modifications, physical therapy, analgesics, corticosteroid injections and use of assisted devices and continues to have significant limitations in daily activities along with decreased quality of life. Given the patient's desire to improve their quality of life, surgical intervention consisting of joint replacement surgery is recommended at this time.? We discussed the procedure in detail today; which includes pre op preparation with labs and reviewing patients medication regimen prior to surgery. Patient was sent to the hospital for CBC/BMP/hemoglobin A1c and a type and screen. She was also given a list with the medications to be held prior to surgery. I discussed at length the post op course which includes physical therapy services in the hospital along with the discharge routine and the patients plan upon discharge. She would like to be discharged home with VNA services. She does have CLOTHING AND TEXTILES TEACHER care which is daily. She also did not obtain her DME and was given the information to obtain her walker at [facility]. I explained to the patient, once they are DC home, they will receive VNA services which will include PT 2-3x per week. We also discussed their choice for outpatient PT once they are discharged from home PT. Patient would like to attend [facility] for physical therapy. An order was placed and she was given their contact information to make an appointment after her 1st postop appointment. Post op DVT ppx was also discussed and the considering the patients does not have a history of DVT/PE and is a nonsmoker she will take aspirin 325 mg p.o. b.i.d. for DVT prophylaxis. I reviewed with the patient their post op pain medication regimen along with the detailed wean program. The patient did express understanding of this and agreed to the narcotic policy. Lastly, I discussed with the patient the risks to the procedure. Risks including but not limited to infection, injury to surrounding nerves, tissue , bone, small and large vessels, stiffness, aseptic loosening, fracture, dislocation, amputation, DVT/PE along with intraoperative complications including but not limited to . The patient does express understanding, all questions were answered and the patient would like to proceed? with left total knee arthroplasty with Dr. Solorzano. Consents were signed and dated while in the office today.? Post-Operative Recovery Notes: DVT ppx : Aspirin 325 mg p.o. b.i.d. Hospital DC plan: Home with VNA Physical Therapy: [facility] Walker Rx's sent to [facility] - Contact information given to patient with instructions on how to obtain the items. Orders: Orders Type and Screen Today Z01.818 - Encounter for other preprocedural examination Basic Metabolic Panel Today Z01.818 - Encounter for other preprocedural examination Hemoglobin A1c Today E11.9 - Type 2 diabetes mellitus without complications Complete Blood Count Auto Diff Today Z01.818 - Encounter for other preprocedural examination PT Evaluation and Treatment Today Z96.652 - Presence of left artificial knee joint Coding Level of Care Code Complex visit Add On G2211 Diagnoses Primary osteoarthritis of left knee M17.12 Osteoarthritis type: primary
[2025-02-20 10:19] VITALS: BMI 36.6
--- OUTSIDE RECORDS SUMMARY | 2025-02-20 11:42 | XMS_ITS | Encounter Summary ---
Author Organization [employer] Address 75 [facility] 7t [place] [address] Care Team Providers Care Director Of Student Financial Aid Name Role Phone [facility] Primary Care Provider [phone] Reason for Visit * Reason Onset Date Comments Med Refill 03/15/2024 Encounter Details Date Type Department Care Team ([facility] st Contact Info) Description 03/15/2024 Telephone [facility] [address] [place] [address] [facility] [address] [place] [address] Med Refill Social History Tobacco Use Types [...] medication refill. Medications needing refill : HYDROcodone-acetaminophen ([place]) 5-325 MG tablet To be sent to: [facility] - [place], [place] - [address] [place] [address] documented in this encounter Plan of Treatment Upcoming Encounters Date Type Department Care Team (Late st Contact Info) Description 02/23/2025 10:00 AM EST Clinical Support [facility] [address] [place] [address] Tammie Diaz, RN documented as of this encounter Visit Diagnoses Not on filedocumented in this encounter Additional Health Concerns Assessment Noted Time PHQ-9 Depression Total Score: 0 12/25/19 10:25 AM EDT documented as of this encounter Care Teams Director Of Student Financial Aid Relationship Specialty Start Date End Date Kelli Horton FNP [address] [place] [address] PCP - General Family Medicine 05/20/22 documented as of this encounter
--- OUTSIDE RECORDS SUMMARY | 2025-02-20 11:42 | XMS_ITS | Encounter Summary ---
Author Organization [employer] Address 75 [facility] 7t [place] [address] Care Team Providers Care Spray Gun Repairer Name Role Phone Beatriz Ford [facility] Primary Care Provider Aj bradford [facility] Primary Care Provider [phone] Reason for Visit * Reason Comments Med Refill Encounter Details Date Type Department Care Team (Late st Contact Info) Description 04/03/2022 Refill [facility] [address] [place] [address] Name, MD Haroon [address] [place] [address] Chronic pain syndrome Social History Tobacco Use [...] on hydrocodone med , please contact .. (Mexican speaker) documented in this encounter Plan of Treatment Upcoming Encounters Date Type Department Care Team (Late st Contact Info) Description 02/23/2025 10:00 AM EST Clinical Support [facility] [address] [place] [address] Tammie Diaz RN documented as of this encounter Visit Diagnoses Diagnosis Chronic pain syndrome documented in this encounter Additional Health Concerns Assessment Noted Time PHQ-9 Depression Total Score: 21 022 10:03 AM EST documented as of this encounter Care Teams Spray Gun Repairer Relationship Specialty Start Date End Date Beatriz Ford FNP PCP - General Family Medicine 02/21/22 05/19/22 Kelli Horton FNP [address] [place] [address] PCP - General Family Medicine 05/20/22 documented as of this encounter
--- OUTSIDE RECORDS SUMMARY | 2025-02-20 11:42 | XMS_ITS | Encounter Summary ---
Author Organization [employer] Address 75 [facility] 7t [place] [address] Care Team Providers Care In Service Educator Name Role Phone Kelli Horton [facility] Primary Care Provider [phone] Reason for Visit * Reason Comments Med Refill Encounter Details Date Type Department Care Team (Late st Contact Info) Description 12/16/2022 Refill [facility] [address] [place] [address] Name, MD Haroon [address] [place] [address] Chronic low back pain, unspecified back pain [...] Clinical Support [facility] [address] [place] [address] Tammie Diaz RN documented as of this encounter Visit Diagnoses Diagnosis Chronic low back pain, unspecified back pain laterality, unspecified whether sciatica present documented in this encounter Additional Health Concerns Assessment Noted Time PHQ-9 Depression Total Score: 21 022 10:03 AM EST documented as of this encounter Care Teams In Service Educator Relationship Specialty Start Date End Date Kelli Horton FNP [address] [place] [address] PCP - General Family Medicine 05/20/22 documented as of this encounter
--- OUTSIDE RECORDS SUMMARY | 2025-02-20 11:42 | XMS_ITS | Encounter Summary ---
Author Organization [employer] Address 75 [facility] 7t [place] [address] Care Team Providers Care Braiding Machine Operator Name Role Phone [facility] Primary Care Provider [phone] Reason for Visit * Reason Onset Date Comments Med Refill 02/11/2023 Encounter Details Date Type Department Care Team ([facility] st Contact Info) Description 02/11/2023 Telephone [facility] [address] [place] [address] [facility] [address] [place] [address] Med Refill Social History Tobacco Use Types [...] from pt requesting med refill on; HYDROcodone-acetaminophen ([place]) 5-325 MG tablet documented in this encounter Plan of Treatment Upcoming Encounters Date Type Department Care Team (Late st Contact Info) Description 02/23/2025 10:00 AM EST Clinical Support [facility] [address] [place] [address] Tammie Diaz RN documented as of this encounter Visit Diagnoses Not on filedocumented in this encounter Additional Health Concerns Assessment Noted Time PHQ-9 Depression Total Score: 21 022 10:03 AM EST documented as of this encounter Care Teams Braiding Machine Operator Relationship Specialty Start Date End Date Kelli Horton FNP [address] [place] [address] PCP - General Family Medicine 05/20/22 documented as of this encounter
--- OUTSIDE RECORDS SUMMARY | 2025-02-20 11:42 | XMS_ITS | Encounter Summary ---
Author Organization [employer] Address 75 [facility] 7t [place] [address] Care Team Providers Care Supervisor Product Inspection Name Role Phone [facility] Primary Care Provider [phone] Reason for Visit * Reason Onset Date Comments Med Refill 01/28/2024 Encounter Details Date Type Department Care Team ([facility] st Contact Info) Description 01/28/2024 Telephone [facility] [address] [place] [address] [facility] [address] [place] [address] Med Refill Social History Tobacco Use Types [...] Description 02/23/2025 10:00 AM EST Clinical Support [facility] [address] [place] [address] Tammie Diaz RN documented as of this encounter Visit Diagnoses Not on filedocumented in this encounter Additional Health Concerns Assessment Noted Time PHQ-9 Depression Total Score: 0 12/25/19 24 10:25 AM EDT documented as of this encounter Care Teams Supervisor Product Inspection Relationship Specialty Start Date End Date Kelli Horton FNP [address] [place] [address] PCP - General Family Medicine 05/20/22 documented as of this encounter
--- OUTSIDE RECORDS SUMMARY | 2025-02-20 11:42 | XMS_ITS | Encounter Summary ---
Author Organization [employer] Address 75 [facility] 7t [place] [address] Care Team Providers Care Machine Grinder Name Role Phone [facility] Primary Care Provider [phone] Reason for Visit * Reason Onset Date Comments Nurse Triage 02/11/2023 Encounter Details Date Type Department Care Team ([facility] st Contact Info) Description 02/11/[address] [facility] [address] [place] [address] [facility] [address] [place] [address] Nurse Triage Social History Tobacco Use Types [...] the only possible outcome for this symptom Tanzanian Speaker documented in this encounter Plan of Treatment Upcoming Encounters Date Type Department Care Team (Late st Contact Info) Description 02/23/2025 10:00 AM EST Clinical Support [facility] [address] [place] [address] Tammie Diaz RN documented as of this encounter Visit Diagnoses Not on filedocumented in this encounter Additional Health Concerns Assessment Noted Time PHQ-9 Depression Total Score: 21 03/21/ 022 10:03 AM EST documented as of this encounter Care Teams Machine Grinder Relationship Specialty Start Date End Date Kelli Horton FNP [address] [place] [address] PCP - General Family Medicine 05/20/22 documented as of this encounter
--- OUTSIDE RECORDS SUMMARY | 2025-02-20 11:42 | XMS_ITS | Encounter Summary ---
Author Organization [employer] Address 75 [facility] 7t [place] [address] Care Team Providers Care Product Test Specialist Name Role Phone [facility] Primary Care Provider [phone] Reason for Visit * Reason Comments Med Refill Encounter Details Date Type Department Care Team ([facility] st Contact Info) Description 12/17/2023 Refill [facility] [address] [place] [address] [facility] 230 [facility] [place] [address] Chronic low back pain, unspecified back pain [...] Description 02/23/2025 10:00 AM EST Clinical Support [facility] [address] [place] [address] Tammie Diaz RN documented as of this encounter Visit Diagnoses Diagnosis Chronic low back pain, unspecified back pain laterality, unspecified whether sciatica present documented in this encounter Additional Health Concerns Assessment Noted Time PHQ-9 Depression Total Score: 0 07/22/19 24 9:10 AM EDT documented as of this encounter Care Teams Product Test Specialist Relationship Specialty Start Date End Date Kelli Horton FNP [address] [place] [id number] PCP - General Family Medicine 05/20/22 documented as of this encounter
--- OUTSIDE RECORDS SUMMARY | 2025-02-20 11:42 | XMS_ITS | Encounter Summary ---
Author Organization [employer] Address 75 [facility] 7t [place] [address] Care Team Providers Care Director Of Respiratory Therapy Name Role Phone Beatriz Ford [facility] Primary Care Provider Aj bradford [facility] Primary Care Provider [phone] Encounter Details Date Type Department Care Team ([facility] st Contact Info) Description 03/20/2022 Telephone [facility] [address] [place] [address] Beatriz Ford FNP Social History Tobacco Use [...] Description 02/23/2025 10:00 AM EST Clinical Support [facility] [address] [place] [phone] Tammie Diaz, RN documented as of this encounter Visit Diagnoses Not on filedocumented in this encounter Care Teams Director Of Respiratory Therapy Relationship Specialty Start Date End Date Beatriz Ford FNP PCP - General Family Medicine 02/21/22 05/19/22 [facility], TAXONOMIST [address] [place] [address] PCP - General Family Medicine 05/20/22 documented as of this encounter
--- OUTSIDE RECORDS SUMMARY | 2025-02-20 11:42 | XMS_ITS | Encounter Summary ---
Author Organization [employer] Address 75 [facility] 7t [place] [address] Care Team Providers Care Doping Supervisor Name Role Phone Sol Kelli [employer] [facility] Primary Care Provider [phone] Encounter Details Date Type Department Care Team (Late st Contact Info) Description 02/06/2023 Abstract [facility] [address] [place] [address] Madeleine Valle Social History Tobacco Use Types [...] Description 02/23/2025 10:00 AM EST Clinical Support [facility] [address] [place] [address] Tammie Diaz RN documented as of this [...] documented as of this encounter Care Teams Doping Supervisor Relationship Specialty Start Date End Date Kelli Horton FNP [address] [place] [address] PCP - General Family Medicine 05/20/22 documented as of this encounter
--- OUTSIDE RECORDS SUMMARY | 2025-02-20 11:43 | XMS_ITS | Encounter Summary ---
Author Organization [employer] Address [address] [facility] 7t [place] [address] Care Team Providers Care Research Electrician Name Role Phone Sol [facility] Primary Care Provider Encounter Details Date Type Department Care Team (Late st Contact Info) Description 09/30/2022 Abstract [facility] MEDICINE [address] [place] [address] [place], [address] [address] Social History Tobacco Use Types Packs/Day Years [...] 10:00 AM EST Clinical Support [facility] [address] [place] [address] Tammie Diaz RN documented as of this [...] documented as of this encounter Care Teams Research Electrician Relationship Specialty Start Date End Date Kelli Horton FNP [address] [place] [address] PCP - General Family Medicine 05/20/22 documented as of this encounter
--- OUTSIDE RECORDS SUMMARY | 2025-02-20 11:43 | XMS_ITS | Encounter Summary ---
Author Organization [employer] Address 75 [facility] [address] [place] [address] Care Team Providers Care Him Director Name Role Phone [facility] Primary Care Provider [phone] Reason for Visit * Reason Onset Date Comments Referral 12/11/2022 Encounter Details Date Type Department Care Team ([facility] st Contact Info) Description 12/11/2022 Telephone [facility] [address] [place] [address] [facility] [address] [place] [address] Referral Social History Tobacco Use Types Packs/Day [...] and medication list to be faxed to [phone]. documented in this encounter Plan of Treatment Upcoming Encounters Date Type Department Care Team (Late st Contact Info) Description 02/23/2025 10:00 AM EST Clinical Support [facility] [address] [place] [address] Tammie Diaz, LADONNA documented as of this encounter Visit Diagnoses Not on filedocumented in this encounter Additional Health Concerns Assessment Noted Time PHQ-9 Depression Total Score: 21 022 10:03 AM EST documented as of this encounter Care Teams Him Director Relationship Specialty Start Date End Date Kelli Horton FNP [address] [place] [address] PCP - General Family Medicine 05/20/22 documented as of this encounter
--- OUTSIDE RECORDS SUMMARY | 2025-02-20 11:43 | XMS_ITS | Clinical Summary ---
Author Organization [employer] Address [address] [facility] [address] [place] [address] Care Team Providers Care Ring Barker Operator Name Role Phone Sol [facility] Primary Care Provider [phone] Allergies Active Allergy Reactions Criticality Noted Date [...] tablet 3 025 Active TRUEplus Lancets 33G [facility] TEST BLOOD SUGAR TWICE DAILY 100 each 6 02/16/20 25 1:00 PM EST 025 Active glucose blood (FREESTYLE LITE) test stripIndication s:Type 2 diabetes mellitus with stage 3 chronic kidney disease, without long-term current use of insulin, unspecified whether stage 3a or 3b CKD (HCC) USE DIRECTED TO TEST BLOOD SUGAR TWICE DAILY 100 strip 3 02/16/20 25 1:00 PM EST Active atorvastatin (Lipitor) 20 MG tablet TAKE 1 TABLET BY MOUTH EVERY EVENING 90 tablet 3 Active vitamin E 180 MG (400 UNIT) [...] EACH NOSTRIL TWICE DAILY 16 g 5 02/16/20 25 1:00 PM EST 025 Active HYDROcodone-patricia taminophen ([place]) 5-325 MG tabletIndicatio ns:Chronic low back pain, [...] ONCE A WEEK DIRECTED 2 mL 3 02/16/20 25 1:00 PM EST 025 Active Tirzepatide (Mounjaro) 2.5 MG/0.5ML solution auto-injectorIn dications:Type 2 diabetes mellitus with stage 3 chronic kidney disease, without long-term current use of insulin, unspecified whether stage 3a or 3b CKD (HCC) Inject 2.5 mg under the skin 1 (one) time per week. 2 mL 3 025 2024 Discontinued Active Problems Problem Noted Date Diagnosed Date Long-term current use of opiate analgesic 2024 Gait instability 05/05/2023 Acute conjunctivitis of right eye 03/05/2023 Healthcare maintenance 07/28/2022 Overview (05/05/2023): Mammo: 09/2022 Birads 1 Pap: S/P total hysterectomy for benign reason. Pt does not know if cervix remains. Will schedule follow up pelvic exam C-scope: Previously at [facility]. Date unknown. Will request records BMD: Routine age 67 Assessment & Plan (05/05/2023 8:28 PM EST): DEXA scan ordered RBBB 07/22/2022 Obstructive sleep apnea syndrome 03/21/2022 Overview (07/28/2022): Has CPAP Chronic low back pain 03/12/2022 Overview (07/28/2022): Hydrocodone t.i.d as needed. Compliant with [employer] agreement Assessment & Plan (05/05/2023 8:15 PM EST): Continue hydrocodone as prescribed. Patient will bring tablets to pharmacy to determine if able to order prior formulation Declines chronic pain group at this time Follow as scheduled with [employer] Chronic pain of right knee 03/12/2022 Overview (07/28/2022): Referred to PT for balance training 06/2022 Type 2 diabetes mellitus, the [facility] long-term current use of insulin 10/01/2020 Overview (04/04/2024): Metformin monotherapy CKD stage 3 followed by nephrology Foot Exam: 03/2024 risk 0 Eye Exam: Followed by [facility] in [place] Statin: Yes ASA: No PATRICIA/ARB: Yes Encouraged [...] Overview (04/04/2024): Followed by DR. Lora at [facility] Hepatic steatosis, hx of chronic HCV [...] Problem Noted Date Diagnosed Date Resolved Date [place] eye disease of right eye 03/05/2023 03/05/2023 Assessment & Plan (03/05/2023 10:51 AM EST): Given antibiotic cream for 5 days Arthritis of left knee 03/21/202207/24 Arthritis of right knee 03/21/2022 05/0 06/2022 Atrophic gastritis 10/14/2021 Asthma 04/15/2021 07/24/2022 Chronic kidney disease, stage 2 (mild) 04/15/2021 07/22/2022 Urinary incontinence 04/15/2021 023 Renal stone 07/14/2019 07/24/2022 CKD (chronic kidney disease) , stage III ([facility]/HCC) 07/17/2017 07/22/2022 Fatty liver 07/15/2017 07/24/2022 Knee pain 02/14/2015 07/24/2022 Obesity 02/14/2015 07/24/2022 Increased frequency of urination 02/14/2015 07/24/2022 Type 2 diabetes mellitus 02/14/201506/2022 Chronic kidney disease 09/18/201107/22 Encounters Date Type Department Care Team Description 02/08/2025 Refill [facility] [address] [place] [id number] Kelli Horton FNP Type 2 diabetes mellitus with stage 3 chronic kidney disease, without long-term current use of insulin, unspecified whether stage 3a or 3b CKD (HCC) 02/01/2025 9:30 AM EST Office Visit [facility] [address] [place] [id number] Kelli Horton FNP Preoperative clearance (Primary Dx); Chest pain, unspecified type; Type 2 diabetes mellitus with stage 3 chronic kidney disease, without long-term current use of insulin, unspecified whether stage 3a or 3b CKD (HCC); Encounter for immunization; Encounter for vaccination 02/01/2025 Travel 01/30/2025 Orders Only GENERIC EXTERNAL DATA DEPARTMENT Provider, Generic External Data 01/19/2025 Refill [facility] [address] [facility] [place] [id number] Alexander [facility] Chronic low back pain, unspecified back pain laterality, unspecified whether sciatica present 01/19/2025 Orders Only [facility] External Provider, [facility] 01/11/2025 Refill [facility] [address] [place] [address] Alexander [facility] Moderate persistent asthma, unspecified whether complicated 12/26/2024 9:00 AM EDT Clinical Support [facility] [address] [facility] [place] [address] Tammie Diaz, RN Long-term current use of opiate analgesic (Primary Dx) 12/26/2024 Refill [facility] [address] [place] [address] Tammie Diaz, LADONNA Long-term current use of opiate analgesic (Primary Dx) 12/26/2024 Travel 12/14/2024 Refill [facility] [address] [place] [address] Alexander [facility] 12/08/2024 Telephone [facility] [address] [place] [address] Alexander [facility] Preop from Last 3 Months Immunizations Immunization [...] Description 02/23/2025 10:00 AM EST Clinical Support [address] [address] Tammie Diaz, RN Health Maintenance Due Date [...] Patient has chronic kidney disease No Marlys Stweard Patient has chronic kidney disease Care Plan [...] 12 lead (02/02/2025 6:30 AM EST) Narrative [facility] - 02/02/2025 6:30 AM EST RBBB consistent with prior tracings Result [facility] ECG ORDERABLES Final Result * POCT Hgb A1c (02/01/2025 9:50 AM EST) Hemoglobin A1C 5.3 4.0 - 5.7 % Blood 02/01/2025 9:50 AM EST Result [facility] POINT OF CARE TEST ENTER/EDIT ORDERABLES Final Result * POCT Glucose (02/01/2025 9:49 AM EST) Glucose Blood, POC 125 60 - 200 mg/dL Blood Capillary blood specimen / Unknown 02/01/2025 9:49 AM EST Result [facility] POINT OF CARE TEST ENTER/EDIT ORDERABLES Final Result * MRSA Nasal Screen (01/30/2025 10:30 AM EST) MRSA Nasal PCR NEGATIVE Negative [facility] SA Nasal PCR NEGATIVE Negative [facility] MRSA Interpretation SEE NOTE [facility] Comment:MRSA target DNA not detected; SA target DNA not detected.A MRSA NEGATIVE, SA NEGATIVE test result does not precludeMRSA or SA nasal colonization. 01/30/2025 10:3 0 AM EST 01/30/2025 11:14 AM EST us Generic External Data Provider LAB MICROBIOLOGY - GENERAL ORDERABLES Final Result [facility] [address] [place] [phone] * CT Kne w/o Contrast Left (01/19/2025 9:28 AM EDT) Anatomical Region Laterality Modality Lower Extremities, Knee Left Computed Tomography 01/19/2025 9:28 AM EDT Narrative 01/19/2025 10:12 AM EDT [address] [address] [address] Scan Report Signed Patient: Ludivina Hussein MR#: [id number] : 1955 Acct:[id number] Age/Sex: 69 / F ADM Date: 01/19/25 Loc: HO.CT Attending Dr: David Farris PA-C Ordering Physician: David Farris PA-C Date of Service: 01/19/25 Procedure(s): CT knee LT wo IV con Accession Number(s): [id number] cc: David Farris PA-C; [facility] Report Number: [id number]: Total DLP = 336.00 mGy-cm Reason for Exam: M17.12 - Unilateral primary osteoarthritis, left knee EXAMINATION: CT KNEE WITHOUT CONTRAST, LEFT CLINICAL INFORMATION: Unilateral primary osteoarthritis COMPARISON: Left knee x-ray 08/26/2023 TECHNIQUE: Axial 2 mm thin images of left knee were performed as part of [facility] protocol. This CT examination was performed [...] left knee were obtained as part of [facility] protocol for patient to have a left knee prosthesis. No relating needed. Electronically signed by: Hernesto Muniz MD 01/19/2025 10:10 AM EDT Dictated By: Hernesto Muniz MD Signed By: <Electronically signed by Hernesto Muniz MD in OV> 01/19/25 1010 DD/ 0928 TD/TT: 01/19/25 0943 Bleach Liquor Maker: [facility] Procedure Note Donotuseinterpreter, Image - 01/19/[address] [address] [address] Scan Report Signed Patient: Ludivina Hussein [facility]#: [id number] : 8Acct:[id number] Age/Sex: 69 / FADM Date: 01/19/25 Loc: HO.CT Attending Dr: David Farris PA-C Ordering Physician: David Farris PA-C Date of Service: 01/19/25 Procedure(s): CT knee LT wo IV con Accession Number(s): [id number] cc: David Farris PA-C; [facility] Report Number: [id number]: Total DLP = 336.00 mGy-cm Reason for Exam: M17.12 - Unilateral primary osteoarthritis, left knee EXAMINATION: CT KNEE WITHOUT CONTRAST, LEFT CLINICAL INFORMATION: Unilateral primary osteoarthritis COMPARISON: Left knee x-ray 08/26/2023 TECHNIQUE: Axial 2 mm thin images of left knee were performed as part of [facility] protocol. This CT examination was performed [...] OV> 01/19/25 1010 DD/ TD/TT: 01/19/25 0943 Bleach Liquor Maker: [facility] External Provider IMG CT PROCEDURES Edited Result - Final * (ABNORMAL) POCT ANDRE-14 Urine Drug Screen (12/26/2024 9:22 AM EDT) THC Negative Negative Cocaine Screen, Urine Negative Negative Opiate Screen, Urine Positive(A) Negative Comment:[employer] pt, on hydrocodo ne Methamphetamine Screen Urine [...] - 12/26/2024 9:22 AM EDT UTOX cup Lot#[id number] Exp. 12/27/25 Internal Pass Control [facility] TOOL HARDENER POINT OF CARE TEST ENTER/EDIT ORDERABLES Final Result * BI Mammogram Screening Tomosynthesis Bilateral (08/11/2024 9:00 AM EDT) Anatomical Region Laterality Modality Breast Bilateral Mammography 08/11/2024 9:00 AM EDT Narrative 08/19/2024 5:38 PM EDT [facility] [address] [place], [place] [address] Mammography Report Signed Patient: Ludivina Hussein MR#: [id number] : 1955 Acct:[id number] Age/Sex: 68 / F ADM Date: 08/11/24 Loc: MAMMO Attending Dr: Kelli SHAH Ordering Physician: Kelli Horton Results: 1Nega tive Date of Service: 08/11/24 Follow Up: 1 Year From Orig inal Mammogram Procedure(s): MM tomosynthesis screening BI Accession Number(s): [id number] cc: Kelli Horton TOOL HARDENER EXAMINATION: MM SCREENING DIGITAL BREAST TOMOSYNTHESIS, BILATERAL [...] 08/19/24 1735 DD/ 0900 TD/TT: 08/11/24 0915 Bleach Liquor Maker: Procedure Note Donotuseinterpreter, Image - 08/19/2024 Marisol [facility] [address] [place], [place] [address] Mammography Report Signed Patient: Ludivina Hussein [facility]#: [id number] : 8Acct:[id number] Age/Sex: 68 / FADM Date: 08/11/24 Loc: GERRY Attending Dr: Kelli SHAH Ordering Physician: Kelli Horton FNPResults: 1Nega tive Date of Service: 08/11/24Follow Up: 1 Year From Orig inal Mammogram Procedure(s): MM tomosynthesis screening BI Accession Number(s): [id number] cc: AlexanderSequatchie TOOL HARDENER EXAMINATION: MM SCREENING DIGITAL BREAST TOMOSYNTHESIS, BILATERAL [...] 08/19/24 1735 DD/ 0900 TD/TT: 08/11/24 0915 Bleach Liquor Maker: [facility] TOOL HARDENER IMG BI PROCEDURES Edited Resu lt - Final * Lipid Panel, Standard (06/24/2024 10:01 AM EDT) Triglycerides 93 <150 mg/dL [facility] Comment:Desirable Triglyceri de: less than 150 mg/dLBorderline High Triglyceride 150-199 mg/dLHigh Triglyceride: 200-499 mg/dLVery High Triglyceride: greater than or equal to 5OO mg/dL Cholesterol 131 <200 mg/dL [facility] Comment:Desirable Cholestero l: less than 200 mg/dLBorderline High Cholesterol: 200-239 mg/dLHigh Cholesterol: greater than 239 mg/dL LDL Cholesterol Calculated 64 <100 mg/dL [facility] Comment:Desirable LDL: less than 100 mg/dLNear Optimal/Above Optimal LDL: 110- 129 mg/dLBorderline High LDL: 130-159 mg/dLHigh LDL: 160-189 mg/dLVery High LDL: greater than or equal to 190 mg/dL HDL Cholesterol 49 >40 mg/dL [facility] Comment:Desirable HDL: great er than 40 mg/dL Note: This HDL assay may give artificially low results in patients with liver disease. 06/24/2024 10:0 1 AM EDT 06/24/2024 11:18 AM EDT [facility] TOOL HARDENER LAB BLOOD ORDERABLES Final Re sult [facility] [address] [place] [phone] * Hm Colonoscopy (05/03/2018) Colonoscopy Normal Normal Narrative ToriMadeleine - 05/03/2018 Repeat in 10 years Historical Provider HEALTH MAINTENANCE Final Result * HPV mRNA E6/E7 (03/03/2016 11:45 AM EST) HPV mRNA E6/E7 Not Detected NOT DETECTED [facility] Comment: This test was performed using the APTIMA(R) HPV Assay ([employer] This assay detects E6/E7 viral messenger RNA (mRNA) from 14 high-risk HPV types (16,18,31,33,35,39,45,51, 52,56,58,59,66,68). For additional information please refer to: http://education.LaunchTrack.EcoSurge/faq/XDX609t5 (This link is being provided for informational/ educational purposes only.) Test Performed by Yuki Pace, [employer], [address] [place] [address] Leonardo Cano M.D., Ph.D., Director of Laboratories , [facility] [id number] Please note: Effective 12/03/2015, HPV testing will be performed using [employer]'s APTIMA test which targets mRNA. Detecting mRNA instead of DNA, as in older methods, offers significant improvements in specificity. 03/03/2016 11:4 5 AM EST us Nandini Biswas NP HISTORICAL/NON ORDERABLE LABS Fi nal Result [facility] [address] from Last 3 Months or Most [...] Patient has chronic kidney disease 02/09/[address] [place] [address] [place] [address] - [employer] Member Subscriber Plan / Payer (Ef fective 2023-Present) Name:Ludivina Hussein Relation to Subscriber:Self Name:Ludivina Hussein Payer ID:Not on file Group ID:[id number] Type:Not on file Address: [address] [address] RESIDENTIAL OPTIONS (O D-SNP) [place] [id number] Care Teams Ring Barker Operator Relationship Specialty Start Date End Date Kelli Horton FNP [address] [place] [address] PCP - General Family Medicine 05/20/22
== END 2025-02-20 13:09 | disposition home or self-care (01) ==
LOC: HO.HOS 09:44
PROVIDERS: PCP Registered Nurse; Visit Provider Physician Assistant
DX: M17.12 Unilateral primary osteoarthritis, left knee (principal)
CPT/HCPCS: 99024

== ENCOUNTER → 2025-02-20 09:44 | Outpatient (BNVA) | payer OTHER, SELFPAY | PROVIDERS: PCP Registered Nurse; Visit Provider Physician Assistant | DX: Z01.818 Encounter for other preprocedural examination (principal); M17.12 Unilateral primary osteoarthritis, left knee; E11.9 Type 2 diabetes mellitus without complications; Z96.652 Presence of left artificial knee joint | CPT/HCPCS: 99212 ==

== ENCOUNTER 2025-02-22 10:53 | Outpatient (REF) | payer OTHER, SELFPAY ==
[2025-02-22 11:15] LABS: MANUAL DIFF FLAG NO
[2025-02-22 11:57] LABS: Hematocrit 37.9 % (37.0-47.0); Hemoglobin 12.9 g/dl (12.0-16.0); Imm Gran Abs Auto 0.02 X10*3/uL (0.00-0.03); Imm Gran Pct Auto 0.3 % (0.0-0.4); Lymphocytes Absolute Auto 2.4 X10*3/uL (1.2-4.9); Mean Corpuscular HGB Conc 34.0 g/dl (31.0-35.0); Mean Corpuscular Hemoglobin 30.7 pg (27.0-33.0); Mean Corpuscular Volume 90.2 fL (80.0-98.0); NRBC Abs Auto 0.000 X10*3/uL (0.0-0.012); NRBC Pct Auto 0.0 /100WBC (0.0-0.2); Platelet Count 257 X10*3/uL (160-400); Red Blood Count 4.20 X10*6/uL (4.20-5.50); White Blood Count 6.9 X10*3/uL (4.8-10.8)
[2025-02-22 12:01] LABS: Appearance Urine Clear; Glucose Urine UA Negative (Negative); PH 7.0 (5.0-9.0); Specific Gravity - Urine 1.015 (1.005-1.025); UMIC TRIGGER UA YES
[2025-02-22 12:21] LABS: Parathyroid Hormone Intact 86.2 pg/mL (8.7-77.1)
[2025-02-22 12:27] LABS: Albumin Level 4.2 g/dL (3.5-5.0); Anion Gap 10 (12-20); Blood Urea Nitrogen 18 mg/dL (9-16); Calcium 9.3 mg/dL (8.4-10.2); Carbon Dioxide 29 mmol/L (22-29); Chloride 104 mmol/L (96-108); Magnesium 1.7 mg/dL (1.6-2.6); Potassium 3.9 mmol/L (3.3-5.1); Sodium 139 mmol/L (135-145)
[2025-02-22 13:18] LABS: Total Protein Urine Random < 7 mg/dL (<12)
== END 2025-02-22 10:54 | disposition home or self-care (01) ==
LOC: HO.LAB 10:53
PROVIDERS: PCP Registered Nurse; Visit Provider Internal Medicine Nephrology
DX: N18.2 Chronic kidney disease, stage 2 (mild) (principal); E11.22 Type 2 diabetes mellitus with diabetic chronic kidney disease; Z13.21 Encounter for screening for nutritional disorder
CPT/HCPCS: 36415; 80069; 81001; 82043; 82306; 82570; 83735; 83970; 84156; 85025